=== PATIENT | male | born 1950 | race Caucasian/White ===

== ENCOUNTER → 2016-05-07 | Outpatient (CLI) | payer BC, MEDICARE ==
[2016-05-07 08:37] LABS: Basophils % (A) 0 %; CH 31.2; CHCM 32.3; Eosinophils # (A) 0.2 k/uL (0-0.7); Eosinophils % (A) 3 %; HCT 38.7 % (39.0-53.0); HDW 2.76; HGB 12.3 gm/dL (13.0-17.5); Luc # (Auto) 0.16; Luc % (Auto) 3; Lymphocytes # (A) 1.4 k/uL (1.0-4.8); Lymphocytes % (A) 28 %; MCH 30.9 pg (25.0-35.0); MCHC 31.8 g/dL (31.0-37.0); MCV 97.1 fL (80.0-100.0); Mean Platelet Volume 6.5; Monocytes # (A) 0.4 k/uL (0-1.0); Monocytes % (A) 7 %; Neutrophils # (A) 2.9 k/uL (1.3-7.7); Neutrophils % (A) 58 %; RBC 3.99 m/uL (4.30-5.90); WBC 5.1 k/uL (3.8-10.6); WBC (Perox) 5.67
[2016-05-07 08:56] LABS: ALT 59 U/L (21-72); AST 46 U/L (17-59); Alkaline Phosphatase 61 U/L (38-126); Anion Gap 10 mmol/L; Blood Urea Nitrogen 18 mg/dL (9-20); Calcium 8.8 mg/dL (8.4-10.2); Carbon Dioxide 21 mmol/L (22-30); Chloride 109 mmol/L (98-107); Glucose 145 mg/dL (74-99); Non-African American GFR(MDRD) 59 (>60 ml/min/1.73 sqM); Potassium 4.9 mmol/L (3.5-5.1); Sodium 140 mmol/L (137-145); Total Protein 7.5 g/dL (6.3-8.2)
== END | disposition home or self-care (01) ==
LOC: LABWHC1 08:02
PROVIDERS: ATTEND Internal Medicine Gastroenterology
DX: K58.9 Irritable bowel syndrome, unspecified (principal)
CPT/HCPCS: 36415; 80053; 85025

== ENCOUNTER 2016-05-12 18:01 | Emergency (ER) | payer BC, MEDICARE ==
[2016-05-12 18:20] VITALS: RESP 18
--- NOTE | 2016-05-12 18:26 | ED ---
Abdominal Pain HPI - General Chief Complaint: Abdominal Pain Stated Complaint: CROHNS FLAIR Time Seen by Provider: 05/12/16 18:19 Source: patient, RN notes reviewed Mode of arrival: ambulatory Limitations: no limitations - History of Present Illness Initial Comments: Patient is a 66-year-old male presenting to the with chief complaint of diarrhea and vomiting. Patient reports his history Crohn's and believes this is a flare. He states he has diffuse abdominal pain but is mainly located in the right quadrants. He states that he's had 2 bowel resections of cholecystectomy as well as he believes he has an appendectomy. Patient states his last Crohn's flareup such as this was in October of last year. Patient reports that he is currently taking Humira for his Crohn's. He denies any melena or hematochezia. He also denies any hematemesis. Denies any other symptoms including chest pain shortness of breath or cough or fevers. He states he has felt chilled. He reports his pain is currently 8 out of 10. Patient also has a past medical history of cardiac ablation, bilateral knee surgeries. - Related Data Home Medications Medication Instructions Recorded Confirmed Febuxostat [Uloric] 80 mg PO DAILY 08/27/13 05/12/16 amLODIPine BESYLATE [Amlodipine 5 mg PO DAILY 11/07/15 05/12/16 Besylate] Multivitamins, Thera [Multivitamin] 1 tab PO DAILY 11/10/15 05/12/16 Adalimumab [Humira Crohn's] 40 mg SQ Q14D 05/12/16 05/12/16 Buprenorphine HCl/Naloxone HCl 1 film SUBLINGUAL DAILY 05/12/16 05/12/16 [Suboxone 2 mg-0.5 mg Sl Film] Orphenadrine [Norflex] 100 mg PO Q12H 05/12/16 05/12/16 Tamsulosin HCl [Flomax] 0.4 mg PO DAILY 05/12/16 05/12/16 Zolpidem [Ambien] 5 mg PO HS PRN 05/12/16 05/12/16 Previous Rx's Medication Instructions Recorded HYDROcodone/APAP 10-325MG [[place] 1 tab PO Q6H PRN #20 tab 05/12/16 10-325] Ondansetron Odt [Zofran ODT] 4 mg PO Q8HR PRN #10 tab 05/12/16 predniSONE 50 mg PO DAILY #5 tab 05/12/16 Allergies Allergy/AdvReac Type Severity Reaction Status Date / Time Iodinated Contrast Media - Allergy Anaphylaxis Verified 05/12/16 19:00 Oral and [Iodinated Contrast Media - IV Dye] iodine Allergy Anaphylaxis Verified 05/12/16 19:00 Review of Systems ROS Statement: Those systems with pertinent positive or pertinent negative responses have been documented in the HPI. ROS Other: All systems not noted in ROS Statement are negative. Past Medical History Past Medical History: GERD/Reflux, Rheumatoid Arthritis (RA), Supraventricular Tachycardia (SVT) Additional Past Medical History / Comment(s): hx CROHN'S, migraines, hx SVT, hx ulcers, gout, History of Any Multi-Drug Resistant Organisms: C-DIFF Date of last positivie culture/infection: 11/29/2013 MDRO Source:: C-DIFF x 6 in 2013 Past Surgical History: Bowel Resection, Cardiac Ablation, Cholecystectomy, Hernia Repair, Orthopedic Surgery, Tonsillectomy Additional Past Surgical History / Comment(s): part of stomach removed (ulcers) , fecal transplant, bilateral knee surgery Past Anesthesia/Blood Transfusion Reactions: Blood Transfusion Reaction Additional Past Anesthesia/Blood Transfusion Reaction / Comment(s): BLOOD TRANSFUSION- BROKE OUT IN HIVES Past Psychological History: No Psychological Hx Reported Additional Psychological History / Comment(s): NO CURRENT TX. Retired due to his health. Smoking Status: Never smoker Past Alcohol Use History: None Reported Past Drug Use History: None Reported - Past Family History Father Family Medical History: CVA/TIA, Dementia, Hypertension Additional Family Medical History / Comment(s): AT AGE 86- UNSURE CAUSE OF Mother Family Medical History: Pulmonary Embolus Additional Family Medical History / Comment(s): AGE 73-[place], STROKE, UNSURE OF ANY OTHER HX General Exam - General Exam Comments Initial Comments: Patient is a pleasant 66-year-old male. He is on appear to be in any distress. Limitations: no limitations General appearance: alert, in no apparent distress Head exam: Present: atraumatic, normocephalic, normal inspection Eye exam: Present: normal appearance, PERRL, EOMI. Absent: scleral icterus, conjunctival injection, periorbital swelling ENT exam: Present: normal exam, mucous membranes moist Neck exam: Present: normal inspection. Absent: tenderness, meningismus, lymphadenopathy Respiratory exam: Present: normal lung sounds bilaterally. Absent: respiratory distress, wheezes, rales, rhonchi, stridor Cardiovascular Exam: Present: regular rate, normal rhythm, normal heart sounds. Absent: systolic murmur, diastolic murmur, rubs, gallop, clicks GI/Abdominal exam: Present: soft, tenderness (She reports significant right lower quadrant and right upper quadrant tenderness.), normal bowel sounds. Absent: distended, guarding, rebound, rigid Extremities exam: Present: normal inspection, full ROM, normal capillary refill. Absent: tenderness, pedal edema, joint swelling, calf tenderness Back exam: Present: normal inspection Neurological exam: Present: alert, oriented X3, CN II-XII intact Psychiatric exam: Present: normal affect, normal mood Skin exam: Present: warm, dry, intact, normal color. Absent: rash Course Vital Signs 05/12/16 05/12/16 05/12/16 18:19 21:28 22:12 Temperature 99.4 F 97.8 F 98.0 F Pulse Rate 89 64 68 Respiratory 18 18 18 Rate Blood Pressure 188/91 189/88 170/89 O2 Sat by Pulse 97 98 97 Oximetry Medical Decision Making - Medical Decision Making Patient is a 66 year old male with a history of chron's disease with 3 days of diarrhea, abdominal pain, and one episode of vomiting. Patient lab work shows mild anemia, fecal occult positive. CT abdomien and pelvis without constrast was completed and shows evidence of bowel wall thickening consistent with chron' s flare. Patient was offered admission, but states he would like to manage this at home with pain medication and steroids. PAtient given prescription for pain medication and prednisone 50 mg, #5. Patient instructed to follow up with PCP in the next day, and patient reports he has a follow up with Dr. 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 Patient understands treatment plan and possible admission offered if he returned. Patient also given dose of Solumedrol and pain medication before discharged home with . - Lab Data Result diagrams: 05/12/16 19:20 05/12/16 19:20 Lab Results 05/12/16 05/12/16 05/12/16 Range/Units 19:20 19:20 20:28 WBC 9.6 (3.8-10.6) k/uL RBC 4.09 L (4.30-5.90) m/uL Hgb 12.8 L (13.0-17.5) gm/dL Hct 38.3 L (39.0-53.0) % MCV 93.6 (80.0-100.0) fL MCH 31.2 (25.0-35.0) pg MCHC 33.3 (31.0-37.0) g/dL RDW 13.3 (11.5-15.5) % Plt Count 213 (150-450) k/uL Neutrophils % 69 % Lymphocytes % 22 % Monocytes % 5 % Eosinophils % 2 % Basophils % 0 % Neutrophils # 6.7 (1.3-7.7) k/uL Lymphocytes # 2.1 (1.0-4.8) k/uL Monocytes # 0.4 (0-1.0) k/uL Eosinophils # 0.2 (0-0.7) k/uL Basophils # 0.0 (0-0.2) k/uL Sodium 145 (137-145) mmol/L Potassium 4.5 (3.5-5.1) mmol/L Chloride 113 H (98-107) mmol/L Carbon Dioxide 18 L (22-30) mmol/L Anion Gap 14 mmol/L BUN 17 (9-20) mg/dL Creatinine 1.20 (0.66-1.25) mg/dL Est GFR (MDRD) Af Amer >60 (>60 ml/min/1.73 sqM) Est GFR (MDRD) Non-Af >60 (>60 ml/min/1.73 sqM) Glucose 107 H (74-99) mg/dL Calcium 9.4 (8.4-10.2) mg/dL Total Bilirubin 1.1 (0.2-1.3) mg/dL AST 45 (17-59) U/L ALT 56 (21-72) U/L Alkaline Phosphatase 59 (38-126) U/L Total Protein 7.8 (6.3-8.2) g/dL Albumin 4.1 (3.5-5.0) g/dL Amylase 78 (30-110) U/L Lipase 40 (23-300) U/L Urine Color Yellow Urine Appearance Clear (Clear) Urine pH 5.5 (5.0-8.0) Ur Specific [place] 1.015 (1.001-1.035) Urine Protein Negative (Negative) Urine Glucose (UA) Negative (Negative) Urine Ketones Negative (Negative) Urine Blood Negative (Negative) Urine Nitrate Negative (Negative) Urine Bilirubin Negative (Negative) Urine Urobilinogen <2.0 (<2.0) mg/dL Ur Leukocyte Esterase Negative (Negative) Stool Occult Blood (Negative) 05/12/16 Range/Units 20:28 WBC (3.8-10.6) k/uL RBC (4.30-5.90) m/uL Hgb (13.0-17.5) gm/dL Hct (39.0-53.0) % MCV (80.0-100.0) fL MCH (25.0-35.0) pg MCHC (31.0-37.0) g/dL RDW (11.5-15.5) % Plt Count (150-450) k/uL Neutrophils % % Lymphocytes % % Monocytes % % Eosinophils % % Basophils % % Neutrophils # (1.3-7.7) k/uL Lymphocytes # (1.0-4.8) k/uL Monocytes # (0-1.0) k/uL Eosinophils # (0-0.7) k/uL Basophils # (0-0.2) k/uL Sodium (137-145) mmol/L Potassium (3.5-5.1) mmol/L Chloride (98-107) mmol/L Carbon Dioxide (22-30) mmol/L Anion Gap mmol/L BUN (9-20) mg/dL Creatinine (0.66-1.25) mg/dL Est GFR (MDRD) Af Amer (>60 ml/min/1.73 sqM) Est GFR (MDRD) Non-Af (>60 ml/min/1.73 sqM) Glucose (74-99) mg/dL Calcium (8.4-10.2) mg/dL Total Bilirubin (0.2-1.3) mg/dL AST (17-59) U/L ALT (21-72) U/L Alkaline Phosphatase (38-126) U/L Total Protein (6.3-8.2) g/dL Albumin (3.5-5.0) g/dL Amylase (30-110) U/L Lipase (23-300) U/L Urine Color Urine Appearance (Clear) Urine pH (5.0-8.0) Ur Specific [place] (1.001-1.035) Urine Protein (Negative) Urine Glucose (UA) (Negative) Urine Ketones (Negative) Urine Blood (Negative) Urine Nitrate (Negative) Urine Bilirubin (Negative) Urine Urobilinogen (<2.0) mg/dL Ur Leukocyte Esterase (Negative) Stool Occult Blood Positive (Negative) - Radiology Data Radiology results: report reviewed CT abdomen and pelvis shows mucosal thickening involving the distal sigmoid colon and rect active sigmoid junction. There is evidence of hepatomegaly. 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 There is stable bilateral nonobstructing renal colliculi. Disposition Clinical Impression: Exacerbation of Crohn's disease Disposition: HOME SELF-CARE Condition: Good Instructions: Acute Diarrhea (ED) Additional Instructions: Patient started to follow-up with primary care provider in one to 2 days. Take pain medication and is very prescriptions as directed. Follow-up with GI specialist as well. Return to the [facility] if any alarming signs or symptoms occur. Prescriptions: HYDROcodone/APAP 10-325MG [[place] 10-325] 1 tab PO Q6H PRN #20 tab PRN Reason: Pain Ondansetron Odt [Zofran ODT] 4 mg PO Q8HR PRN #10 tab PRN Reason: Nausea predniSONE 50 mg PO DAILY #5 tab Referrals: Minh Saldaña MD [Primary Care Provider] - 1-2 days Time of Disposition: 22:02
[2016-05-12] MEDS ORDERED: diphenhydrAMINE 50 MG/ML 1 ML VIAL IVP STA (18:43)
[2016-05-12] MEDS ORDERED: SODIUM CHLORIDE 0.9% 1,000 ML IV STA (18:43)
[2016-05-12] MEDS ORDERED: HYDROmorphone 1 MG/ML 1 ML SYRINGE IVP STA ×3 (18:43→22:02)
[2016-05-12] MEDS ORDERED: METOCLOPRAMIDE 5 MG/ML 2 ML VIAL IVP STA (18:43)
--- NOTE | 2016-05-12 19:37 | XR ---
EXAMINATION TYPE: XR KUB DATE OF EXAM ORDERED: 05/12/2016 7:34 PM HISTORY: Abdominal pain. COMPARISON: Previous study dated 06/30/2014. FINDINGS: There has been previous right-sided surgery. The abdominal gas pattern is normal. There is no evidence of obstruction or free air. No unusual calc ifications are seen. There are scattered air-fluid levels. IMPRESSION: FINDINGS MOST CONSISTENT WITH EARLY ILEUS.
[2016-05-12 19:49] LABS: Basophils % (A) 0 %; CH 31.3; CHCM 33.6; Eosinophils # (A) 0.2 k/uL (0-0.7); Eosinophils % (A) 2 %; HCT 38.3 % (39.0-53.0); HDW 2.77; HGB 12.8 gm/dL (13.0-17.5); Luc # (Auto) 0.22; Luc % (Auto) 2; Lymphocytes # (A) 2.1 k/uL (1.0-4.8); Lymphocytes % (A) 22 %; MCH 31.2 pg (25.0-35.0); MCHC 33.3 g/dL (31.0-37.0); MCV 93.6 fL (80.0-100.0); Mean Platelet Volume 6.6; Monocytes # (A) 0.4 k/uL (0-1.0); Monocytes % (A) 5 %; Neutrophils # (A) 6.7 k/uL (1.3-7.7); Neutrophils % (A) 69 %; RBC 4.09 m/uL (4.30-5.90); RDW 13.3 % (11.5-15.5); WBC 9.6 k/uL (3.8-10.6); WBC (Perox) 9.72
[2016-05-12 19:57] LABS: ALT 56 U/L (21-72); AST 45 U/L (17-59); Alkaline Phosphatase 59 U/L (38-126); Amylase 78 U/L (30-110); Anion Gap 14 mmol/L; Blood Urea Nitrogen 17 mg/dL (9-20); Calcium 9.4 mg/dL (8.4-10.2); Carbon Dioxide 18 mmol/L (22-30); Chloride 113 mmol/L (98-107); Glucose 107 mg/dL (74-99); Non-African American GFR(MDRD) >60 (>60 ml/min/1.73 sqM); Potassium 4.5 mmol/L (3.5-5.1); Sodium 145 mmol/L (137-145); Total Bilirubin 1.1 mg/dL (0.2-1.3); Total Protein 7.8 g/dL (6.3-8.2)
[2016-05-12 20:36] LABS: Appearance,Urine Clear (Clear); Bilirubin,Urine Negative (Negative); Glucose,Urine (UA) Negative (Negative); Ketones,Urine Negative (Negative); Leukocyte Esterase,Urine Negative (Negative); Nitrite,Urine Negative (Negative); PH, Urine 5.5 (5.0-8.0); Protein,Urine Negative (Negative); Specific Gravity,Urine 1.015 (1.001-1.035); UA Billing (MACRO vs. MICRO) CHEM; Urobilinogen,Urine <2.0 mg/dL (<2.0)
--- NOTE | 2016-05-12 20:59 | CT ---
EXAMINATION TYPE: CT abdomen pelvis wo con DATE OF EXAM: 05/12/2016 8:41 PM COMPARISON: Previous study dated 11/08/2015. HISTORY: Right lower quadrant pain with a history of Crohn's CT DLP: 380.3 mGycm Automated exposure control for dose reduction was used. FINDINGS: There is dependent atelectasis in the dependent portion of the lungs. The heart is mildly e nlarged. There is no pleural or pericardial fluid. There has been previous epigastric surgery. Within the abdomen, the gallbladder has been removed. The liver is prominent measuring 19.3 cm. 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 Both adrenal glands are normal. There are multiple, bilateral nonobstructing renal calculi unchanged in size and appearance from the previous study. The pancreas is somewhat atrophic. There is extensive vascular calcification including the coronary arteries. There is no significant retroperitoneal, iliac or inguinal adenopathy. The bladder is unremarkable. The uterus and ovaries are not visualized. There is mucosal thickening involving the distal sigmoid colon and rectosigmoid junction. There is no free fluid and no free air identified. Small bowel loops are normal in caliber. There is mild hypertrophic spondylosis within the spine. IMPRESSION: 1. MUCOSAL THICKENING INVOLVING THE DISTAL SIGMOID COLON AND RECTOSIGMOID JUNCTION. 2. HEPATOMEGALY. 3. EVIDENCE OF OLD GRANULOMATOUS DISEASE OF THE SPLEEN. 4. STABLE, BILATERAL, NONOBSTRUCTING RENAL CALCULI.
[2016-05-12] MEDS ORDERED: methylPREDNISolone SOD SUCCI 125 MG/2 ML VIAL IV STA (22:01)
[2016-05-12 22:13] VITALS: BP 170/89; PULSE 68; TEMP 98
== END 2016-05-12 22:59 | disposition home or self-care (01) ==
LOC: EC 18:01
DX: K50.10 Crohn's disease of large intestine without complications (principal); R16.0 Hepatomegaly, not elsewhere classified; N20.0 Calculus of kidney; D64.9 Anemia, unspecified; K21.9 Gastro-esophageal reflux disease without esophagitis; M06.9 Rheumatoid arthritis, unspecified; I47.1 Supraventricular tachycardia; M10.9 Gout, unspecified; Z79.899 Other long term (current) drug therapy; Z91.041 Radiographic dye allergy status
CPT/HCPCS: 36415; 80053; 82150; 83690; 85025; 82272; 81003; 74000; 74176; 99284; 96374; 96375 ×3; 96376 ×2; 96361; J1200; J2765; J2930; J1170

== ENCOUNTER 2016-05-14 06:29 | Inpatient (IN) | payer BC, MEDICARE ==
[2016-05-14] MEDS ORDERED: DICYCLOMINE 10 MG/ML 2 ML AMP IM STA (07:19)
--- NOTE | 2016-05-14 07:26 | ED ---
Abdominal Pain HPI - General Chief Complaint: Abdominal Pain Stated Complaint: abd pain Time Seen by Provider: 05/14/16 07:09 Source: patient Mode of arrival: ambulatory Limitations: no limitations - History of Present Illness Initial Comments: is a 66-year-old man with history of Crohn's disease who presents with lower abdominal/right lower quadrant pains that have been going on for about 3- 4 days. The pain is sometimes sharp and crampy. Severity is moderate at times severe. The patient has not noted worsening or relieving factors. He is also complaining of a bloating sensation. The patient was seen here on Tuesday, treated and went home but states that he is not feeling any better. The patient has also been having a few episodes of vomiting in the past day without any blood or coffee-ground emesis. The patient has had a couple of bowel movements with past day and states that he did see some blood with one of these bowel movements. MD Complaint: abdominal pain Onset/Timin -: days(s) Location: RLQ, suprapubic Radiation: none Migration to: no migration Severity: moderate Quality: cramping, aching Consistency: constant Improves With: nothing Worsens With: nothing Associated Symptoms: nausea, vomiting, hematochezia - Related Data Home Medications Medication Instructions Recorded Confirmed Febuxostat [Uloric] 80 mg PO DAILY 08/27/13 05/14/16 amLODIPine BESYLATE [Amlodipine 5 mg PO DAILY 11/07/15 05/14/16 Besylate] Multivitamins, Thera [Multivitamin] 1 tab PO DAILY 11/10/15 05/14/16 Adalimumab [Humira Crohn's] 40 mg SQ Q14D 05/12/16 05/14/16 Buprenorphine HCl/Naloxone HCl 1 film SUBLINGUAL DAILY 05/12/16 05/14/16 [Suboxone 2 mg-0.5 mg Sl Film] Orphenadrine [Norflex] 100 mg PO Q12H 05/12/16 05/14/16 Tamsulosin HCl [Flomax] 0.4 mg PO DAILY 05/12/16 05/14/16 Zolpidem [Ambien] 5 mg PO HS PRN 05/12/16 05/14/16 Previous Rx's Medication Instructions Recorded HYDROcodone/APAP 10-325MG [[place] 1 tab PO Q6H PRN #20 tab 05/12/16 10-325] Ondansetron Odt [Zofran ODT] 4 mg PO Q8HR PRN #10 tab 05/12/16 predniSONE 50 mg PO DAILY #5 tab 05/12/16 Allergies Allergy/AdvReac Type Severity Reaction Status Date / Time Iodinated Contrast Media - Allergy Anaphylaxis Verified 05/14/16 06:39 Oral and [Iodinated Contrast Media - IV Dye] iodine Allergy Anaphylaxis Verified 05/14/16 06:39 Review of Systems ROS Statement: Those systems with pertinent positive or pertinent negative responses have been documented in the HPI. ROS Other: All systems not noted in ROS Statement are negative. Constitutional: Denies: fever, chills Respiratory: Denies: cough, dyspnea Cardiovascular: Denies: chest pain, palpitations, edema Gastrointestinal: Reports: abdominal pain, nausea, vomiting, diarrhea, hematochezia. Denies: hematemesis, melena Genitourinary: Denies: dysuria, hematuria Musculoskeletal: Denies: back pain Skin: Denies: rash Neurological: Denies: headache, weakness, numbness Past Medical History Past Medical History: GERD/Reflux, Rheumatoid Arthritis (RA), Supraventricular Tachycardia (SVT) Additional Past Medical History / Comment(s): hx CROHN'S, migraines, hx SVT, hx ulcers, gout, History of Any Multi-Drug Resistant Organisms: C-DIFF Date of last positivie culture/infection: 11/29/2013 MDRO Source:: C-DIFF x 6 in 2013 Past Surgical History: Bowel Resection, Cardiac Ablation, Cholecystectomy, Hernia Repair, Orthopedic Surgery, Tonsillectomy Additional Past Surgical History / Comment(s): part of stomach removed (ulcers) , fecal transplant, bilateral knee surgery Past Anesthesia/Blood Transfusion Reactions: Blood Transfusion Reaction Additional Past Anesthesia/Blood Transfusion Reaction / Comment(s): BLOOD TRANSFUSION- BROKE OUT IN HIVES Past Psychological History: No Psychological Hx Reported Additional Psychological History / Comment(s): NO CURRENT TX. Retired due to his health. Smoking Status: Never smoker Past Alcohol Use History: Occasional Past Drug Use History: None Reported - Past Family History Father Family Medical History: CVA/TIA, Dementia, Hypertension Additional Family Medical History / Comment(s): AT AGE 86- UNSURE CAUSE OF Mother Family Medical History: Pulmonary Embolus Additional Family Medical History / Comment(s): AGE 73-[place], STROKE, UNSURE OF ANY OTHER HX General Exam Limitations: no limitations General appearance: alert, in no apparent distress Head exam: Present: atraumatic, normocephalic Eye exam: Present: normal appearance. Absent: scleral icterus, conjunctival injection ENT exam: Present: normal oropharynx Respiratory exam: Present: normal lung sounds bilaterally. Absent: respiratory distress, wheezes, rales, rhonchi, stridor Cardiovascular Exam: Present: regular rate, normal rhythm, normal heart sounds. Absent: systolic murmur, diastolic murmur, rubs, gallop GI/Abdominal exam: Present: soft. Absent: distended, tenderness, guarding, rebound, mass Extremities exam: Present: normal inspection, normal capillary refill. Absent: pedal edema, calf tenderness Back exam: Absent: CVA tenderness (R), CVA tenderness (L) Neurological exam: Present: alert Skin exam: Present: warm, dry, intact, normal color. Absent: rash Course Vital Signs 05/14/16 05/14/16 05/14/16 06:36 07:19 08:29 Temperature 98.6 F 97.4 F L 98.6 F Pulse Rate 90 79 64 Respiratory 16 16 18 Rate Blood Pressure 186/90 197/91 183/85 O2 Sat by Pulse 98 98 99 Oximetry 05/14/16 05/14/16 09:31 10:29 Temperature 98.6 F 97.9 F Pulse Rate 66 63 Respiratory 18 16 Rate Blood Pressure 190/86 195/93 O2 Sat by Pulse 96 97 Oximetry Medical Decision Making - Lab Data Result diagrams: 05/14/16 07:50 05/14/16 07:50 Lab Results 05/14/16 05/14/16 05/14/16 Range/Units 07:00 07:50 07:50 WBC 13.0 H (3.8-10.6) k/uL RBC 3.84 L (4.30-5.90) m/uL Hgb 12.0 L (13.0-17.5) gm/dL Hct 36.0 L (39.0-53.0) % MCV 93.8 (80.0-100.0) fL MCH 31.4 (25.0-35.0) pg MCHC 33.4 (31.0-37.0) g/dL RDW 13.1 (11.5-15.5) % Plt Count 210 (150-450) k/uL Neutrophils % 81 % Lymphocytes % 13 % Monocytes % 4 % Eosinophils % 0 % Basophils % 0 % Neutrophils # 10.6 H (1.3-7.7) k/uL Lymphocytes # 1.7 (1.0-4.8) k/uL Monocytes # 0.6 (0-1.0) k/uL Eosinophils # 0.0 (0-0.7) k/uL Basophils # 0.0 (0-0.2) k/uL Sodium 144 (137-145) mmol/L Potassium 4.0 (3.5-5.1) mmol/L Chloride 113 H (98-107) mmol/L Carbon Dioxide 18 L (22-30) mmol/L Anion Gap 13 mmol/L BUN 19 (9-20) mg/dL Creatinine 1.22 (0.66-1.25) mg/dL Est GFR (MDRD) Af Amer >60 (>60 ml/min/1.73 sqM) Est GFR (MDRD) Non-Af 59 (>60 ml/min/1.73 sqM) Glucose 131 H (74-99) mg/dL Calcium 9.4 (8.4-10.2) mg/dL Total Bilirubin 0.7 (0.2-1.3) mg/dL AST 36 (17-59) U/L ALT 57 (21-72) U/L Alkaline Phosphatase 60 (38-126) U/L C-Reactive Protein (<10.0) mg/L Total Protein 7.7 (6.3-8.2) g/dL Albumin 4.1 (3.5-5.0) g/dL Amylase 77 (30-110) U/L Lipase 46 (23-300) U/L Urine Color Light Yellow Urine Appearance Clear (Clear) Urine pH 5.5 (5.0-8.0) Ur Specific [place] 1.011 (1.001-1.035) Urine Protein Negative (Negative) Urine Glucose (UA) Negative (Negative) Urine Ketones Negative (Negative) Urine Blood Negative (Negative) Urine Nitrate Negative (Negative) Urine Bilirubin Negative (Negative) Urine Urobilinogen <2.0 (<2.0) mg/dL Ur Leukocyte Esterase Negative (Negative) 05/14/16 Range/Units 07:50 WBC (3.8-10.6) k/uL RBC (4.30-5.90) m/uL Hgb (13.0-17.5) gm/dL Hct (39.0-53.0) % MCV (80.0-100.0) fL MCH (25.0-35.0) pg MCHC (31.0-37.0) g/dL RDW (11.5-15.5) % Plt Count (150-450) k/uL Neutrophils % % Lymphocytes % % Monocytes % % Eosinophils % % Basophils % % Neutrophils # (1.3-7.7) k/uL Lymphocytes # (1.0-4.8) k/uL Monocytes # (0-1.0) k/uL Eosinophils # (0-0.7) k/uL Basophils # (0-0.2) k/uL Sodium (137-145) mmol/L Potassium (3.5-5.1) mmol/L Chloride (98-107) mmol/L Carbon Dioxide (22-30) mmol/L Anion Gap mmol/L BUN (9-20) mg/dL Creatinine (0.66-1.25) mg/dL Est GFR (MDRD) Af Amer (>60 ml/min/1.73 sqM) Est GFR (MDRD) Non-Af (>60 ml/min/1.73 sqM) Glucose (74-99) mg/dL Calcium (8.4-10.2) mg/dL Total Bilirubin (0.2-1.3) mg/dL AST (17-59) U/L ALT (21-72) U/L Alkaline Phosphatase (38-126) U/L C-Reactive Protein <5.0 (<10.0) mg/L Total Protein (6.3-8.2) g/dL Albumin (3.5-5.0) g/dL Amylase (30-110) U/L Lipase (23-300) U/L Urine Color Urine Appearance (Clear) Urine pH (5.0-8.0) Ur Specific Loop (1.001-1.035) Urine Protein (Negative) Urine Glucose (UA) (Negative) Urine Ketones (Negative) Urine Blood (Negative) Urine Nitrate (Negative) Urine Bilirubin (Negative) Urine Urobilinogen (<2.0) mg/dL Ur Leukocyte Esterase (Negative) Disposition Clinical Impression: Abdominal pain, Exacerbation of Crohn's disease Disposition: ADMITTED IP TO THIS HOSP Condition: Fair
[2016-05-14 08:00] LABS: Basophils % (A) 0 %; CH 31.4; CHCM 33.6; Eosinophils % (A) 0 %; HDW 2.76; Luc # (Auto) 0.12; Luc % (Auto) 1; Lymphocytes # (A) 1.7 k/uL (1.0-4.8); Lymphocytes % (A) 13 %; MCH 31.4 pg (25.0-35.0); MCHC 33.4 g/dL (31.0-37.0); MCV 93.8 fL (80.0-100.0); Mean Platelet Volume 7.3; Monocytes # (A) 0.6 k/uL (0-1.0); Monocytes % (A) 4 %; Neutrophils # (A) 10.6 k/uL (1.3-7.7); Neutrophils % (A) 81 %; RBC 3.84 m/uL (4.30-5.90); RDW 13.1 % (11.5-15.5); WBC (Perox) 13.48
--- NOTE | 2016-05-14 08:03 | XR ---
EXAMINATION TYPE: XR KUB DATE OF EXAM: 05/14/2016 7:56 AM COMPARISON: 05/12/2016 HISTORY: 66-year-old male with lower abdominal pain pain. History of Crohn's disease per patient. FINDINGS: Some surgical clips at the GE junction. No evidence for free intraperitoneal air. Additional surgical clips in the right paramedian midabdomen. There may be underlying nephrolithiasis measuring up to 5 mm on the left and 8 mm on the right. No dilated small bowel. Small air-fluid levels are present in t he ascending colon. Mild overall stool burden. IMPRESSION: 1. Small air-fluid levels in the right hemicolon are nonspecific and could represent a mild enteritis or regional mild ileus. 2. No evidence for free air or bowel obstruction. 3. Bilateral nephrolithiasis.
[2016-05-14 08:08] LABS: Appearance,Urine Clear (Clear); Bilirubin,Urine Negative (Negative); Glucose,Urine (UA) Negative (Negative); Ketones,Urine Negative (Negative); Leukocyte Esterase,Urine Negative (Negative); Nitrite,Urine Negative (Negative); PH, Urine 5.5 (5.0-8.0); Protein,Urine Negative (Negative); Specific Gravity,Urine 1.011 (1.001-1.035); UA Billing (MACRO vs. MICRO) CHEM; Urobilinogen,Urine <2.0 mg/dL (<2.0)
[2016-05-14 08:14] LABS: ALT 57 U/L (21-72); AST 36 U/L (17-59); Alkaline Phosphatase 60 U/L (38-126); Amylase 77 U/L (30-110); Anion Gap 13 mmol/L; Blood Urea Nitrogen 19 mg/dL (9-20); Calcium 9.4 mg/dL (8.4-10.2); Carbon Dioxide 18 mmol/L (22-30); Chloride 113 mmol/L (98-107); Glucose 131 mg/dL (74-99); Non-African American GFR(MDRD) 59 (>60 ml/min/1.73 sqM); Sodium 144 mmol/L (137-145); Total Bilirubin 0.7 mg/dL (0.2-1.3); Total Protein 7.7 g/dL (6.3-8.2)
[2016-05-14] MEDS ORDERED: MORPHINE SULFATE 4 MG/ML SYRINGE IV STA (08:29)
[2016-05-14] MEDS ORDERED: amLODIPine 5 MG TAB PO STA (09:38)
[2016-05-14] MEDS ORDERED: HYDROmorphone 1 MG/ML 1 ML SYRINGE IVP STA ×2 (10:12→13:03)
[2016-05-14] MEDS ORDERED: SODIUM CHLORIDE 0.9% 1,000 ML IV ONE (10:31)
[2016-05-14] MEDS ORDERED: ONDANSETRON ODT 4 MG TAB PO PRN (10:34)
[2016-05-14] MEDS ORDERED: LABETALOL SYRINGE 5 MG/ML IVP STA (11:00)
[2016-05-14] MEDS: CYCLOBENZAPRINE 10 MG TAB PO SCH ×2 (11:44→22:03)
[2016-05-14 17:06] LABS: Glucose,Whole Blood 81 mg/dL (75-99)
[2016-05-14] MEDS: METHADONE 5 MG TAB PO PRN (21:31)
[2016-05-14] MEDS: ZOLPIDEM 5 MG TAB PO PRN (22:04)
[2016-05-15] MEDS: METHADONE 5 MG TAB PO PRN ×6 (01:19→22:24)
[2016-05-15] MEDS ORDERED: NON-FORMULARY DRUG (Buprenorphine Hcl/Naloxone Hcl [Suboxone 2 Mg-0.5 Mg Sl Film] 1 FILM) SUBLINGUAL SCH (09:00)
[2016-05-15] MEDS ORDERED: ADALIMUMAB 80 MG/1.6 ML KIT SQ SCH (09:00)
[2016-05-15] MEDS: TAMSULOSIN 0.4 MG CAP.ER.24H PO SCH (09:24)
[2016-05-15] MEDS: ALLOPURINOL 100 MG TAB PO SCH ×2 (09:24→21:11)
[2016-05-15] MEDS: CYCLOBENZAPRINE 10 MG TAB PO SCH ×2 (09:24→21:11)
[2016-05-15] MEDS: MULTIVITAMINS, THERA 1 EACH TAB PO SCH (09:24)
[2016-05-15] MEDS: amLODIPine 5 MG TAB PO SCH (09:25)
--- NOTE | 2016-05-15 11:20 | CONS ---
DATE OF CONSULTATION: 05/15/2016 REASON FOR CONSULTATION: Abdominal pain and diarrhea. HISTORY OF PRESENT ILLNESS: The patient is a 66-year-old pleasant, white male who came into the emergency room yesterday presented with abdominal pain, diarrhea for the last 3 days' duration. He has been having abdominal bloating, abdominal distention and right lower quadrant abdominal pain for 3 days and bowel movements anywhere from 10 to 12 a day which are loose to watery in consistency and on a couple of occasions he did notice some blood in the stool. He became concerned. He came to the ER 3 days ago and was sent home on prednisone 40 mg daily; however, he continued to have persistent symptoms and hence he came right back to the hospital and now admitted to the hospital for further evaluation. This morning he did not have any bowel movements, but he still complains of severe right lower quadrant abdominal pain. He had a couple of episodes of emesis. He denies any nausea, vomiting. The patient has long-standing history of Crohn disease and he has been maintained on Humira 40 mg every other week for the last 2 years. His last surgery for stricture of the anastomosis was about 3 years ago at [facility]. He had an recurrent C. difficile colitis in 2014 and he underwent fecal transplantation at [facility] and since then he had done extremely well. He denies any recent antibiotic use. PAST MEDICAL HISTORY: Significant for Crohn disease, rheumatoid arthritis, hypertension, gastroesophageal reflux disease, chronic migraines, recurrent C. difficile infection, gout, arthritis. PAST SURGICAL HISTORY: ( ) resection and small bowel resections, cardiac ablation, cholecystectomy, hernia repair, tonsillectomy, multiple colonoscopies in the past. Medications at home include Uloric, amlodipine, multivitamin, Humira, Suboxone, Norflex, Flomax and Ambien. Allergies to IV DYE. SOCIAL HISTORY: No smoking. No alcohol use. FAMILY HISTORY: Father had hypertension, dementia, and CVA. Mother has pulmonary embolism. REVIEW OF SYSTEMS: CARDIOPULMONARY: No chest pain or shortness of breath. GENITOURINARY: No dysuria or hematuria. MUSCULOSKELETAL: Unremarkable. SKIN: Unremarkable. ENDOCRINE: Unremarkable. PSYCHIATRIC: Unremarkable. NEUROLOGY: Unremarkable. ENT/VISION: Unremarkable. CONSTITUTIONAL: No recent weight loss. No fevers, chills or night sweats. On physical examination, blood pressure is 137/89, pulse 61, temperature 97. HEENT: Unremarkable. Conjunctivae pink. Sclerae anicteric. Oral cavity, no lesions. NECK: No JVD or lymph node enlargement. Chest was clear to auscultation. HEART: Regular rate and rhythm. Abdomen is soft. It was slightly distended. It was tender in the right lower quadrant area. Bowel sounds are positive. No organomegaly. EXTREMITIES: No pedal edema. SKIN: No rashes. NEURO: Alert and oriented x3. No focal deficits. WBC 13, hemoglobin 12, platelets are 210. ALT, AST, T-bili, alkaline phosphatase are normal. Basic metabolic panel is within normal limits. The patient had a CT of the abdomen and pelvis done in April 2 days ago when he came into the emergency room and was noted to have mucosal thickening involving the distal sigmoid colon and ( ) colon; hepatomegaly. IMPRESSION: This is a patient who presents with abdominal pain, abdominal distention, and severe diarrhea for the last 3 days' duration. He does have long-standing history of Crohn disease for which he is maintained on Humira 40 mg every other week for the last 2 to 3 years. He was in clinical remission and now presents with these symptoms possibility of exacerbation of Crohn disease versus Clostridium difficile colitis needs to be considered. RECOMMENDATIONS: 1. Will start him on a clear liquid diet. 2. Will start him on IV Solu-Medrol 60 mg q.8 hours. 3. Obtain stool studies for C. difficile toxin. 4. Labs for inflammatory markers including Sed rate and C-reactive protein. Will follow the patient closely during his hospital stay. Thank you for this consultation.
[2016-05-15] MEDS: methylPREDNISolone SOD SUCCI 125 MG/2 ML VIAL IV SCH ×2 (11:29→16:48)
[2016-05-15 17:18] LABS: Glucose,Whole Blood 191 mg/dL (75-99)
[2016-05-15] MEDS: INSULIN LISPRO (humaLOG) 300 UNIT/3 ML VIAL SQ SCH ×2 (18:04→21:11)
--- NOTE | 2016-05-15 18:22 | PN ---
DATE OF SERVICE: 05/15/2016 I am covering for Dr. Saldaña. This 66-year-old gentleman was admitted with abdominal pain, possibly Crohn disease, acute exacerbation, also complained of right lower quadrant abdominal pain. The patient is being closely monitored at this time. CRP level less than 0.5. Dr. Yancey has initiated IV steroids for possible Crohn disease, acute exacerbation. The patient being closely monitored. Patient is on methadone. PAST MEDICAL HISTORY: Reviewed. REVIEW OF SYSTEMS: CARDIOVASCULAR: No angina or palpitations. RESPIRATORY: No cough. GASTROINTESTINAL: As mentioned earlier. : No dysuria. CENTRAL NERVOUS SYSTEM: No numbness or weakness. Current medications are reviewed, include: 1. Zyloprim 200 mg daily. 2. Norvasc 5 mg daily. 3. Flexeril 10 mg b.i.d. 4. Methadone 2.5 q.4 p.r.n. 5. Solu-Medrol 60 IV q.8. 6. Multivitamins one p.o. daily. 7. Flomax. 8. Ambien. PHYSICAL EXAM: Patient is alert and oriented times three. Pulse rate 62, blood pressure 130/64, respirations 20, temperature 98.4, pulse ox 98% on room air. HEENT: Conjunctivae normal. NECK: No jugular venous distention. CARDIOVASCULAR: S1, S2 muffled. No S3, no S4. RESPIRATORY: Breath sounds diminished at the bases. A few rhonchi, no crackles. ABDOMEN: Soft, mild diffuse discomfort upon palpation. Mostly tenderness in the right lower quadrant. No guarding. No rigidity. No mass palpable. Legs: No edema. No swelling. Nervous system: No focal deficits. LABS: WBC 13, hemoglobin is 12. Sodium 140, potassium 4.3. UA noted. ASSESSMENT: 1. Abdominal pain, possibly Crohn disease, acute exacerbation. 2. Increased WBC. 3. Anemia, normocytic, anemia of chronic. 4. Decreased CO2. 5. Increased random blood sugar. 6. History of gastroesophageal reflux disease. 7. History of hypertension. 8. History of rheumatoid arthritis. 9. History of supraventricular tachycardia. 10. History of irritable bowel syndrome. 11. History of partial small bowel obstruction. 12. History of supraventricular tachycardia with ablation. 13. History of nephrolithiasis. 14. History of gout. 15. History of clostridium dificile colitis. 16. History of cardiac ablation. 17. Anxiety, depression, not otherwise specified. 18. FULL CODE. RECOMMENDATIONS AND DISCUSSION: In this 66-year-old gentleman who presented with multiple complex medical issues, we will monitor the patient closely. Continue with current medications, continue symptomatic treatment. Otherwise, I would recommend to monitor the blood sugar as well. Symptomatic treatment for pain. DVT prophylaxis. Guarded prognosis because of multiple complex medical issues. Further recommendations to follow. Medications reconciliation will also be done. Further recommendations to follow.
[2016-05-15] MEDS ORDERED: ONDANSETRON 4 MG/2 ML VIAL IVP PRN (19:46)
[2016-05-15 20:58] LABS: Glucose,Whole Blood 176 mg/dL (75-99)
[2016-05-15] MEDS: HEPARIN SODIUM,PORCINE 5,000 UNIT/ML 1 ML VIAL SQ SCH (21:11)
[2016-05-15] MEDS: ZOLPIDEM 5 MG TAB PO PRN (22:24)
[2016-05-16] MEDS: methylPREDNISolone SOD SUCCI 125 MG/2 ML VIAL IV SCH ×3 (00:04→17:33)
[2016-05-16 01:39] LABS: Hemoglobin A1C 4.9 % (4.2-6.1)
[2016-05-16] MEDS: METHADONE 5 MG TAB PO PRN ×5 (03:10→20:02)
[2016-05-16 06:57] LABS: Glucose,Whole Blood 155 mg/dL (75-99)
[2016-05-16 09:12] LABS: Basophils % (A) 0 %; CH 31.3; CHCM 32.7; Eosinophils % (A) 0 %; HCT 36.6 % (39.0-53.0); HDW 2.66; HGB 11.4 gm/dL (13.0-17.5); Luc # (Auto) 0.03; Luc % (Auto) 0; Lymphocytes # (A) 0.8 k/uL (1.0-4.8); Lymphocytes % (A) 9 %; MCHC 31.2 g/dL (31.0-37.0); MCV 96.1 fL (80.0-100.0); Mean Platelet Volume 7.7; Monocytes # (A) 0.2 k/uL (0-1.0); Monocytes % (A) 2 %; Neutrophils # (A) 7.1 k/uL (1.3-7.7); Neutrophils % (A) 88 %; RBC 3.81 m/uL (4.30-5.90); WBC 8.1 k/uL (3.8-10.6); WBC (Perox) 8.51
[2016-05-16] MEDS: ALLOPURINOL 100 MG TAB PO SCH ×2 (09:48→20:02)
[2016-05-16] MEDS: HEPARIN SODIUM,PORCINE 5,000 UNIT/ML 1 ML VIAL SQ SCH ×2 (09:49→20:02)
[2016-05-16] MEDS: amLODIPine 5 MG TAB PO SCH (09:49)
[2016-05-16] MEDS: MULTIVITAMINS, THERA 1 EACH TAB PO SCH (09:49)
[2016-05-16] MEDS: TAMSULOSIN 0.4 MG CAP.ER.24H PO SCH (09:49)
[2016-05-16] MEDS: CYCLOBENZAPRINE 10 MG TAB PO SCH (09:49)
[2016-05-16] MEDS: INSULIN LISPRO (humaLOG) 300 UNIT/3 ML VIAL SQ SCH ×4 (09:50→21:33)
--- NOTE | 2016-05-16 10:49 | PN ---
DATE OF SERVICE: 05/16/2016 Requesting physician: Dr. Saldaña. Patient is a 66 -year-old pleasant white male admitted to the hospital with exacerbation of Crohn's. He did ( ) in the past and C. difficile toxin done yesterday was negative. He still complains of right lower quadrant abdominal pain, and diarrhea all night and had about 6 to 8 loose bowel movements in the last 24 hours. He denies any rectal bleeding. He still has abdominal bloating, but no nausea or vomiting. On physical examination, he appears comfortable in no apparent distress. Vitals as are stable. Blood pressure is 145/73, pulse 78, temperature 99. HEENT EXAMINATION: Unremarkable. ( ) no lesions. NECK: No jugular venous distention or lymph node enlargement. CHEST: Clear to auscultation. HEART: Regular rate and rhythm. ABDOMEN: Soft. There was mild tenderness in the right lower quadrant area, slightly distended. EXTREMITIES: No pedal edema. SKIN: No rashes. NEUROLOGIC: Alert and oriented x3. No focal deficits. Labs from today are still not available. IMPRESSION: Exacerbation of Crohn's disease with abdominal pain, diarrhea, recent C. difficile toxin done yesterday was negative. The patient presented with IV Solu-Medrol 60 mg q.8h. and he feels a little bit better. RECOMMENDATIONS: 1. Continue with IV Solu-Medrol today. 2. If he is bit better, we will change the steroids to oral prednisone 40 mg daily tomorrow. 3. Advanced to a full liquid diet. 4. Await sedimentation rate and C-reactive protein that will be ordered for today. 5. We will follow the patient closely during his hospital stay.
[2016-05-16 11:27] LABS: Erythrocyte Sedimentation Rate 15 mm/hr (0-15)
[2016-05-16 12:08] LABS: Glucose,Whole Blood 110 mg/dL (75-99)
[2016-05-16 17:52] LABS: Glucose,Whole Blood 170 mg/dL (75-99)
[2016-05-16 21:00] LABS: Glucose,Whole Blood 124 mg/dL (75-99)
--- NOTE | 2016-05-16 21:48 | PN ---
DATE OF SERVICE: 05/16/2016 I am covering for Dr. Saldaña. This 66-year-old gentleman admitted with abdominal pain, also suspected of Crohn's disease, acute exacerbation. The patient is on steroids. No chest pain. No palpitations. No fever. The patient is on clear liquids. On exam, alert and oriented x3. Pulse is 72, blood pressure 161/67, respiration 16, temperature 97.9. Pulse ox 94% on room air. HEENT: Conjunctivae normal. NECK: No jugular venous distention. CARDIOVASCULAR: S1, S2 muffled. RESPIRATORY: Breath sounds diminished at the bases. A few scattered rhonchi. No crackles. ABDOMEN: Soft, mild diffuse discomfort on palpations. No guarding. No rigidity. No mass palpable. LEGS: No edema. No swelling. CENTRAL NERVOUS SYSTEM: No focal deficits. LABS: Hemoglobin 11.4. ASSESSMENT: 1. Abdominal pain, possibly Crohn's disease acute exacerbation. 2. Increased WBC. 3. Anemia, normocytic, anemia of chronic disease. 4. Decreased CO2. 5. Increased random blood sugar. 6. Gastroesophageal reflux disease. 7. Hypertension. 8. History of rheumatoid arthritis. 9. History of tachycardia. 10. History of irritable bowel syndrome. 11. History of partial small bowel obstruction. 12. History of supraventricular tachycardia with ablation. 13. History of nephrolithiasis. 14. History of gout. 15. History of Clostridium difficile colitis. 16. History of cardiac ablation. 17. History of anxiety, depression, not otherwise specified. 18. FULL CODE. RECOMMENDATIONS AND DISCUSSION: In this 66-year-old gentleman who presented with multiple complex medical issues, we will monitor the patient closely, continue the current medications, continue with symptomatic treatment for the pain, continue steroids. Monitor blood sugar closely. DVT prophylaxis. Dr. Saldaña will follow. Prognosis guarded. Advance diet per cardiology. MTDD
[2016-05-17] MEDS: CYCLOBENZAPRINE 10 MG TAB PO SCH ×3 (00:08→22:26)
[2016-05-17] MEDS: ZOLPIDEM 5 MG TAB PO PRN ×2 (00:09→22:26)
[2016-05-17] MEDS: METHADONE 5 MG TAB PO PRN ×6 (00:09→22:26)
[2016-05-17] MEDS: methylPREDNISolone SOD SUCCI 125 MG/2 ML VIAL IV SCH ×2 (00:09→08:15)
[2016-05-17 07:50] LABS: Glucose,Whole Blood 142 mg/dL (75-99)
[2016-05-17] MEDS: TAMSULOSIN 0.4 MG CAP.ER.24H PO SCH (08:15)
[2016-05-17] MEDS: MULTIVITAMINS, THERA 1 EACH TAB PO SCH (08:15)
[2016-05-17] MEDS: amLODIPine 5 MG TAB PO SCH (08:15)
[2016-05-17] MEDS: ALLOPURINOL 100 MG TAB PO SCH ×2 (08:15→21:00)
[2016-05-17] MEDS: INSULIN LISPRO (humaLOG) 300 UNIT/3 ML VIAL SQ SCH ×4 (08:16→20:59)
[2016-05-17] MEDS: HEPARIN SODIUM,PORCINE 5,000 UNIT/ML 1 ML VIAL SQ SCH ×2 (08:16→21:00)
--- NOTE | 2016-05-17 08:39 | P.PN ---
Subjective Principal diagnosis: The patient is here essentially for Crohn's colitis flareup. He is on full liquid diet but still with some pain. Methadone has been tolerated secondary to history of Suboxone usage. Objective - Vital Signs Vital signs: Vital Signs Temp 97.4 F L 05/17/16 07:00 Pulse 58 L 05/17/16 07:00 Resp 20 05/17/16 07:00 BP 158/76 05/17/16 07:00 Pulse Ox 95 05/17/16 07:00 Intake & Output 05/16/16 05/17/16 05/17/16 18:59 06:59 18:59 Intake Total 4085 Balance 4085 Intake: Oral 4085 Other: Voiding Method Toilet Toilet # Voids 2 2 # Bowel Movements 3 0 - Constitutional General appearance: Present: average body habitus - EENT Eyes: Absent: abnormal pupil - Cardiovascular Rhythm: regular Heart sounds: normal: S1, S2 - Gastrointestinal General gastrointestinal: Present: soft. Absent: tenderness - Musculoskeletal Musculoskeletal: Present: gait normal - Labs CBC & Chem 7: 05/16/16 08:42 05/14/16 07:50 Labs: Abnormal Lab Results - Last 24 Hours (Table) 05/16/16 05/16/16 05/16/16 Range/Units 08:42 11:45 17:21 RBC 3.81 L (4.30-5.90) m/uL Hgb 11.4 L (13.0-17.5) gm/dL Hct 36.6 L (39.0-53.0) % Lymphocytes # 0.8 L (1.0-4.8) k/uL POC Glucose (mg/dL) 110 H 170 H (75-99) mg/dL 05/16/16 05/17/16 Range/Units 20:50 07:00 RBC (4.30-5.90) m/uL Hgb (13.0-17.5) gm/dL Hct (39.0-53.0) % Lymphocytes # (1.0-4.8) k/uL POC Glucose (mg/dL) 124 H 142 H (75-99) mg/dL Microbiology - Last 24 Hours (Table) 05/15/16 19:20 Stool for WBCs - Final Stool 05/15/16 19:20 Stool Culture - Preliminary Stool Assessment and Plan (1) Abdominal pain Status: Acute (2) Crohns disease Status: Acute Plan: Continue current regimen medication. Anticipate transition to prednisone today. Otherwise, anticipate discharge in a.m. if tolerating diet and blood counts are stable.
[2016-05-17] MEDS ORDERED: DICYCLOMINE 10 MG CAP PO PRN (11:20)
[2016-05-17] MEDS: predniSONE 20 MG TAB PO SCH (12:01)
[2016-05-17 12:14] LABS: Glucose,Whole Blood 124 mg/dL (75-99)
--- NOTE | 2016-05-17 14:17 | PN ---
DATE OF SERVICE: 05/17/2016 Requesting physician: Dr. Saldaña Patient is a 66-year-old pleasant, white male admitted to the hospital with abdominal pain, severe diarrhea for the last 4 or 5 days duration. He was started on empiric IV steroids for possible exacerbation of Crohn's disease. He is feeling much better, but he continues to have persistent diarrhea and had approximately 12 loose watery bowel movements all day yesterday. Abdominal pain is gradually improving. He denies any rectal bleeding or melena. He reports no nausea vomiting. Presently on full liquid diet, tolerating well. On physical examination, he appears comfortable in no apparent distress. Vitals as are stable. Blood pressure 156/91, pulse rate 93, temperature 96. HEENT EXAMINATION: Unremarkable. Conjunctivae pink. Sclerae anicteric. Oral cavity, no lesions. NECK: No jugular venous distention or lymph node enlargement. CHEST: Clear to auscultation. HEART: Regular rate and rhythm. ABDOMEN: Soft. Bowel sounds are positive. No organomegaly. Mild tenderness in the right lower quadrant area. EXTREMITIES: No pedal edema. SKIN: No rashes. NEURO: Alert and oriented x3. No focal deficits. Labs from yesterday hemoglobin 8.1. WBC 11.4. Platelets normal. Sedimentation rate is 15, CRP less than 5. Clostridium difficile toxin is negative. IMPRESSION: 1. Exacerbation of Crohn disease. The patient is presently on Humira 40 mg every other week on IV Solu-Medrol 60 mg q.6 hours still has persistent diarrhea. 2. Irritable bowel syndrome could be also contributing to the ongoing diarrhea. RECOMMENDATIONS: 1. We will stop the IV Solu-Medrol and start him on oral prednisone 40 mg daily. 2. Start him on Bentyl 10 mg 4 times daily to help with the diarrhea and the pain for possible irritable bowel syndrome. 3. We will advance to a regular diet. 4. Possible discharge him tomorrow morning with outpatient follow up in a week. Thank you for this consultation.
[2016-05-17 17:30] LABS: Glucose,Whole Blood 232 mg/dL (75-99)
[2016-05-17 20:28] LABS: Glucose,Whole Blood 153 mg/dL (75-99)
[2016-05-18] MEDS ORDERED: amLODIPine 5 MG TAB PO STA (00:32)
[2016-05-18] MEDS: METHADONE 5 MG TAB PO PRN ×2 (02:45→08:14)
[2016-05-18 07:15] LABS: Glucose,Whole Blood 88 mg/dL (75-99)
[2016-05-18 07:51] VITALS: BP 184/85; PULSE 60; RESP 17; TEMP 96.6
[2016-05-18] MEDS: INSULIN LISPRO (humaLOG) 300 UNIT/3 ML VIAL SQ SCH (08:11)
[2016-05-18] MEDS: HEPARIN SODIUM,PORCINE 5,000 UNIT/ML 1 ML VIAL SQ SCH (08:12)
[2016-05-18] MEDS: predniSONE 20 MG TAB PO SCH (08:15)
[2016-05-18] MEDS: MULTIVITAMINS, THERA 1 EACH TAB PO SCH (08:15)
[2016-05-18] MEDS: ALLOPURINOL 100 MG TAB PO SCH (08:15)
[2016-05-18] MEDS: TAMSULOSIN 0.4 MG CAP.ER.24H PO SCH (08:16)
--- NOTE | 2016-05-18 08:28 | P.DS ---
Providers Date of admission: 05/14/16 10:34 Attending physician: Minh Saldaña Primary care physician: Minh Saldaña - Discharge Diagnosis(es) (1) Abdominal pain Current Visit: Yes Status: Acute (2) Crohns disease Current Visit: No Status: Acute Hospital Course: The patient is a 66-year-old white male essentially admitted for Crohn's colitis with history of opiate addiction. He was placed on methadone because Suboxone was not available. The patient did quite well after being on IV steroids. He is not tolerating diet and having good bowel movement he is placed on full liquid diet with prednisone and to follow-up with me in approximately one week. He is discharged in stable condition Patient Condition at Discharge: Fair Plan - Discharge Summary New Discharge Prescriptions: Buprenorphine HCl/Naloxone HCl [Suboxone 4 mg-1 mg Sl Film] 1 each SL DAILY #30 film Dicyclomine [Bentyl] 10 mg PO QID PRN #120 cap PRN Reason: Dyspepsia amLODIPine [Norvasc] 10 mg PO DAILY #30 tab predniSONE 40 mg PO DAILY #14 tab Discharge Medication List Febuxostat [Uloric] 80 mg PO DAILY 08/27/13 [History] amLODIPine BESYLATE [Amlodipine Besylate] 5 mg PO DAILY 11/07/15 [History] Multivitamins, Thera [Multivitamin] 1 tab PO DAILY 11/10/15 [History] Adalimumab [Humira Pen Crohn-Uc-Hs Starter] 40 mg SQ Q14D 05/12/16 [History] Ondansetron Odt [Zofran ODT] 4 mg PO Q8HR PRN #10 tab 05/12/16 [Rx] Orphenadrine [Norflex] 100 mg PO Q12H 05/12/16 [History] Tamsulosin HCl [Flomax] 0.4 mg PO DAILY 05/12/16 [History] Zolpidem [Ambien] 5 mg PO HS PRN 05/12/16 [History] Buprenorphine HCl/Naloxone HCl [Suboxone 4 mg-1 mg Sl Film] 1 each SL DAILY #30 film 05/18/16 [Rx] Dicyclomine [Bentyl] 10 mg PO QID PRN #120 cap 05/18/16 [Rx] amLODIPine [Norvasc] 10 mg PO DAILY #30 tab 05/18/16 [Rx] predniSONE 40 mg PO DAILY #14 tab 05/18/16 [Rx] Follow up Appointment(s)/Referral(s): Minh Saldaña MD [Primary Care Provider] - 1 Week Discharge Disposition: HOME SELF-CARE
[2016-05-18] MEDS ORDERED: amLODIPine 10 MG TAB PO SCH (09:00)
--- NOTE | 2016-07-11 21:45 | P.HPIM ---
History of Present Illness H&P Date: 05/14/16 Chief Complaint: Severe abdominal pain. This is a history of physical, 66-year-old white male with known history of gout , rheumatoid arthritis and Crohn's disease. The patient is admitted secondary to three-day to four-day worsening history of diarrhea. And it the patient had significant abdominal pain. Dietary modifications were ineffective. No significant nausea or vomiting stated. He states this is deepthi to previous hospitalizations. He has struggled with history of opiate dependence in the past. Otherwise, he is appropriately admitted. Review of Systems Constitutional: Denies chills, Denies fever Eyes: denies blurred vision, denies pain Ears, nose, mouth and throat: Denies headache, Denies sore throat Cardiovascular: Denies chest pain, Denies shortness of breath Gastrointestinal: Reports abdominal pain Musculoskeletal: Denies myalgias Neurological: Denies numbness, Denies weakness Past Medical History Past Medical History: GERD/Reflux, Hypertension, Renal Disease, Rheumatoid Arthritis (RA), Skin Disorder, Supraventricular Tachycardia (SVT) Additional Past Medical History / Comment(s): hx CROHN'S, IBS, partial small bowel obstruction, migraines-just a couple, hx SVT with ablation, hx ulcers, anemia, generalized gout, kidney stones, psoriasis. History of Any Multi-Drug Resistant Organisms: C-DIFF Date of last positivie culture/infection: 11/29/2013 MDRO Source:: C-DIFF x 6 in 2013 Past Surgical History: Bowel Resection, Cardiac Ablation, Cholecystectomy, Heart Catheterization, Hernia Repair, Orthopedic Surgery, Tonsillectomy Additional Past Surgical History / Comment(s): partial gastrectomy (ulcers), fecal transplant, bilateral knee arthroscopic surgery, EGD/colonoscopies, R inguinal hernia, Past Anesthesia/Blood Transfusion Reactions: Blood Transfusion Reaction Additional Past Anesthesia/Blood Transfusion Reaction / Comment(s): BLOOD TRANSFUSION- BROKE OUT IN HIVES Past Psychological History: Anxiety, Depression Additional Psychological History / Comment(s): Retired due to his health. Pt resides with his spouse. He has hx of opiate dependency. He is independent. Smoking Status: Never smoker Past Alcohol Use History: Occasional Past Drug Use History: Prescription Drug Abuse Additional Drug Use History / Comment(s): Hx of opiate dependency. - Past Family History Father Family Medical History: CVA/TIA, Dementia, Hypertension Additional Family Medical History / Comment(s): Father at the age of 86yrs Mother Family Medical History: Myocardial Infarction ([place]), Pulmonary Embolus Additional Family Medical History / Comment(s): AGE 73-[place], STROKE, UNSURE OF ANY OTHER HX Medications and Allergies Home Medications Medication Instructions Recorded Confirmed Type Febuxostat [Uloric] 80 mg PO DAILY 08/27/13 05/14/16 History amLODIPine BESYLATE [Amlodipine 5 mg PO DAILY 11/07/15 05/14/16 History Besylate] Multivitamins, Thera [Multivitamin 1 tab PO DAILY 11/10/15 05/14/16 History (formulary)] Adalimumab [Humira Pen Crohn-Uc-Hs 40 mg SQ Q14D 05/12/16 05/14/16 History Starter] Orphenadrine [Norflex] 100 mg PO Q12H 05/12/16 05/14/16 History Tamsulosin HCl [Flomax] 0.4 mg PO DAILY 05/12/16 05/14/16 History Zolpidem [Ambien] 5 mg PO HS PRN 05/12/16 05/14/16 History Allergies Allergy/AdvReac Type Severity Reaction Status Date / Time Iodinated Contrast Media - Allergy Anaphylaxis Verified 05/14/16 06:39 Oral and [Iodinated Contrast Media - IV Dye] iodine Allergy Anaphylaxis Verified 05/14/16 06:39 Physical Exam - Constitutional General appearance: no acute distress - EENT Eyes: EOMI - Neck Neck: no lymphadenopathy - Respiratory Respiratory: bilateral: CTA - Cardiovascular Rhythm: regular Heart sounds: normal: S1, S2 - Gastrointestinal General gastrointestinal: no organomegaly, soft, no tenderness - Neurologic Neurologic: CNII-XII intact - Musculoskeletal Musculoskeletal: gait normal Results CBC & Chem 7: 05/16/16 08:42 05/14/16 07:50 Thrombosis Risk Factor Assmnt - Choose All That Apply Any of the Below Risk Factors Present?: Yes Other Risk Factors: Yes Each Risk Factor Represents 2 Points: Age 61-74 years Other congenital or acquired thrombophilia - If yes, enter type in comment: No Thrombosis Risk Factor Assessment Total Risk Factor Score: 2 Thrombosis Risk Factor Assessment Level: Low Risk Assessment and Plan (1) Abdominal pain Status: Acute (2) Crohns disease Status: Acute Plan: Continue current regimen medication. Anticipate transition to prednisone In the next 48 hours. Otherwise, anticipate discharge In the next 3-4 days. if tolerating diet and blood counts are stable.Consider GI referral as necessary. Check CBC and CMP in a.m.The patient is a full code at this time. Otherwise, reconcile medications and watch blood pressure closely.
== END 2016-05-18 10:20 | disposition home or self-care (01) | DRG 387 ==
LOC: EC 06:29 → 4MS4W 10:34
PROVIDERS: ADMIT Family Medicine; ATTEND Family Medicine
DX: K50.10 Crohn's disease of large intestine without complications (principal); D63.8 Anemia in other chronic diseases classified elsewhere; I10 Essential (primary) hypertension; F32.9 Major depressive disorder, single episode, unspecified; F41.9 Anxiety disorder, unspecified; K21.9 Gastro-esophageal reflux disease without esophagitis; L40.9 Psoriasis, unspecified; K58.9 Irritable bowel syndrome, unspecified; M06.9 Rheumatoid arthritis, unspecified; G43.909 Migraine, unspecified, not intractable, without status migrainosus; M10.9 Gout, unspecified; M19.90 Unspecified osteoarthritis, unspecified site; R73.9 Hyperglycemia, unspecified; Z91.041 Radiographic dye allergy status; Z79.899 Other long term (current) drug therapy; Z82.49 Family history of ischemic heart disease and other diseases of the circulatory system
CPT/HCPCS: 36415; 74000; 80053; 80299; 81003; 82150; 83036; 83690; 85025; 85652; 86140; 87045; 87046; 89055; 96372; 96374; 96375; 99285

== ENCOUNTER → 2016-06-30 | Outpatient (CLI) | payer BC, MEDICARE ==
--- NOTE | 2016-06-30 10:08 | XR ---
EXAM TYPE: LUMBAR SPINE X RAY SERIES COMPARISON: NONE HISTORY: Left-sided sciatic pain and left leg numbness TECHNIQUE: 3 views are submitted. FINDINGS: Alignment is anatomic. The pedicles are intact. The transverse processes are intact. There is no s pondylolysis or spondylolisthesis. Surgical clips in the right upper quadrant are noted. Degenerativ e disc disease L5-S1 and T12-L2. Slight curvature of the spine may be positional IMPRESSION: 1. Multilevel mild degenerative disc disease. Consider MRI follow-up.
== END | disposition home or self-care (01) ==
LOC: RADXRMAIN 09:24
PROVIDERS: ATTEND Family Medicine
DX: M51.37 Other intervertebral disc degeneration, lumbosacral region (principal); M51.35 Other intervertebral disc degeneration, thoracolumbar region
CPT/HCPCS: 72100

== ENCOUNTER → 2016-11-25 | Outpatient (CLI) | payer BC, MEDICARE ==
--- NOTE | 2016-11-25 09:40 | CT ---
EXAMINATION TYPE: CT brain wo con DATE OF EXAM: 11/25/2016 HISTORY: Dizziness CT DLP: 1075.3 mGycm. Automated Exposure Control for Dose Reduction was Utilized. TECHNIQUE: CT scan of the head is performed without contrast. COMPARISON: None. FINDINGS: There is no acute intracranial hemorrhage or midline shift identified. Ventricles and sul ci are felt within normal limits in size for patient's age. No suspicious opacification of mastoid ai r cells is present bilaterally. The globes are intact and the visualized sinuses are clear. IMPRESSION: No acute intracranial hemorrhage or midline shift. No significant finding is seen to acc ount for patient's symptoms..
--- NOTE | 2016-11-25 10:26 | US ---
EXAMINATION TYPE: US carotid duplex BILAT DATE OF EXAM: 11/25/2016 COMPARISON: US 2014 CLINICAL HISTORY: G45.9 TIA, R42 Dizziness. EXAM MEASUREMENTS: RIGHT: Peak Systolic Velocity (PSV) cm/sec ----- Right CCA: 46.1 ----- Right ICA: 119.0 ----- Right ECA: 88.9 ICA/CCA ratio: 2.6 RIGHT: End Diastole cm/sec ----- Right CCA: 14.7 ----- Right ICA: 43.0 ----- Right ECA: 13.7 LEFT: Peak Systolic Velocity (PSV) cm/sec ----- Left CCA: 77.8 ----- Left ICA: 125.4 ----- Left ECA: 51.2 ICA/CCA ratio: 1.6 LEFT: End Diastole cm/sec ----- Left CCA: 16.1 ----- Left ICA: 28.8 ----- Left ECA: 14.5 VERTEBRALS (direction of flow): Right Vertebral: Antegrade Left Vertebral: Antegrade irregular heart rhythm. Small amount of plaque bilaterally. Very tortuous Left ICA IMPRESSION: No hemodynamic significant stenosis of the proximal internal carotid arteries bilaterall y by Doppler criteria, an indirect measurement of carotid stenosis. Although there is elevated ratio within the distribution of the internal carotid artery to common carotid artery, velocities are simil ar to previous exam and not elevated. Carotid CTA or MRA with contrast could be performed and may be of benefit. Additional findings above.
--- NOTE | 2016-11-25 10:41 | ECHOF ---
Referral Reason:G45.9 TIA, R42 dizziness MEASUREMENTS -------- HEIGHT: 182.9 cm WEIGHT: 86.2 kg BP: IVSd: 1.3 cm (0.6 - 1.1) LVIDd: 4.8 cm (3.9 - 5.3) LVPWd: 1.3 cm (0.6 - 1.1) IVSs: 1.5 cm LVIDs: 4.5 cm LVPWs: 1.0 cm LAESV Index (A-L): 32.95 ml/m Ao Diam: 3.7 cm (2.0 - 3.7) AV Cusp: 2.5 cm (1.5 - 2.6) LA Diam: 4.5 cm (2.7 - 3.8) MV EXCURSION: 14.837 mm (> 18.000) MV EF SLOPE: 78 mm/s (70 - 150) EPSS: 1.4 cm MV E Roger: 0.48 m/s MV DecT: 327 ms MV A Roger: 0.63 m/s MV E/A Ratio: 0.75 AR PHT: 846 ms RAP: 5.00 mmHg RVSP: 27.81 mmHg FINDINGS -------- BBB This was a technically good study. There is mild concentric left ventricular hypertrophy. Overall left ventricular systolic function is low-normal with, an EF between 50 - 55 %. The right ventricle is normal in size. LA is midly dilated 29-33ml/m2. The right atrial size is normal. There is mild aortic valve sclerosis. There is mild aortic regurgitation. Mild mitral annular calcification present. Mild mitral regurgitation is present. Mild tricuspid regurgitation present. There is no evidence of pulmonary hypertension. The right ventricular systolic pressure, as measured by Doppler, is 27.81mmHg. There is no pulmonic regurgitation present. The aortic root size is normal. There is no pericardial effusion. CONCLUSIONS -------- 1. There is mild concentric left ventricular hypertrophy. 2. The right ventricular systolic pressure, as measured by Doppler, is 27.81mmHg. 3. There is no pulmonic regurgitation present. 4. Overall left ventricular systolic function is low-normal with, an EF between 50 - 55 %. 5. LA is midly dilated 29-33ml/m2. 6. There is mild aortic valve sclerosis. 7. There is mild aortic regurgitation. 8. Mild mitral annular calcification present. 9. Mild mitral regurgitation is present. 10. Mild tricuspid regurgitation present. 11. There is no evidence of pulmonary hypertension. GERIATRICIAN: Gela Segundo RDCS
== END | disposition home or self-care (01) ==
LOC: RADUSMAIN 08:58
PROVIDERS: ATTEND Family Medicine
DX: G45.9 Transient cerebral ischemic attack, unspecified (principal); R42 Dizziness and giddiness
CPT/HCPCS: 70450; 93306; 93880

== ENCOUNTER → 2017-11-09 | Day surgery (SDC) | payer BC, MEDICARE ==
[2017-11-03 13:18] VITALS: BMI 23.7
[~2017-11-09] MED LIST: LACTATED RINGERS 1,000 ML IV SCH; LIDOCAINE 1% INJ 10MG/ML (20 ML MDV) ONE; PROPOFOL 10 MG/ML 20 ML VIAL IV ONE
[2017-11-09 07:46] VITALS: TEMP 97.3
--- NOTE | 2017-11-09 08:46 | P.PCN ---
Date of Procedure: 11/09/17 Procedure(s) Performed: Brief history: Patient is a pleasant 67-year-old white male, scheduled for an elective upper endoscopy as well as colonoscopy as a part of evaluation of iron deficiency anemia. He is been having intermittent episodes of abdominal pain, abdominal bloating. His long-standing history of Crohn's and is status post small bowel resection/terminal ileal resection 2, the last one 4 years ago. He is maintained on Humira every 2 weeks. He also has history of peptic ulcer disease for which she underwent Billroth II gastrectomy many years ago. Procedure performed: Esophagogastroduodenoscopy with biopsy Colonoscopy with biopsy Preoperative diagnosis: Abdominal pain/abdominal bloating Long-standing history of Crohn's disease Anesthesia: MAC Procedure: After informed consent was obtained from the patient was brought into the endoscopy unit and IV sedation was administered by anesthesia under continuous monitoring. Initially upper endoscopy was done. The Olympus GF 160 video endoscope was inserted inserted into the mouth and esophagus intubated without any difficulty and was gradually advanced into the stomach there was evidence of previous gastric surgery with Billroth II anastomosis. At the anastomosis there was a superficial ulceration identified measuring 1 cm in size and biopsies were done from this area. The afferent and efferent loops appeared normal. The scope was then withdrawn into the stomach adequately insufflated with air and upon careful examination the body of the stomach had mild gastritis but, cardia and fundus appeared normal. The scope was then withdrawn into the esophagus. The GE junction was located at 40 cm to the incisors. It appeared regular with no erythema erosions or ulcerations. Rest of the esophagus appeared normal. Patient tolerated the procedure well. At this time the patient continued to remain sedation. Initial digital rectal examination was normal. Olympus CF 160 video colonoscope was then inserted into the rectum and gradually advanced to the right colon with a liquid anastomosis was visualized and appeared patent. The distal ileum appeared normal. There was mild erythema of the anastomosis which was biopsied. The ascending, transverse colon, descending colon, sigmoid colon and rectum appeared normal. Retroflexion was performed in the rectum and no lesions were noted. Patient tolerated the procedure well. Impression: 1. Upper endoscopy revealed a superficial anastomotic ulcer at the Billroth II anastomosis and mild gastritis 2. Colonoscopy revealed mild erythema at the according the anastomosis in the right colon. Rest of the colon appeared normal Recommendations: Findings of this examination were discussed with the patient as well as his family. He was advised to follow with the biopsy results. He will continue with Prilosec 20 mg daily and follow antireflux measures. He will continue Humira once every 2 weeks. He will be seen in office in 3 months
[2017-11-09 09:07] VITALS: BP 166/83; PULSE 61; RESP 18
== END ==
LOC: ORWHC2ENDO 07:23
PROVIDERS: ATTEND Internal Medicine Gastroenterology
DX: K28.9 Gastrojejunal ulcer, unspecified as acute or chronic, without hemorrhage or perforation (principal); K52.9 Noninfective gastroenteritis and colitis, unspecified; K29.70 Gastritis, unspecified, without bleeding; K50.90 Crohn's disease, unspecified, without complications; Z98.0 Intestinal bypass and anastomosis status; Z90.49 Acquired absence of other specified parts of digestive tract; Z90.3 Acquired absence of stomach [part of]; Z87.11 Personal history of peptic ulcer disease; K21.9 Gastro-esophageal reflux disease without esophagitis; I10 Essential (primary) hypertension; I47.1 Supraventricular tachycardia; M06.9 Rheumatoid arthritis, unspecified; G43.909 Migraine, unspecified, not intractable, without status migrainosus; M10.9 Gout, unspecified; Z79.899 Other long term (current) drug therapy; Z91.041 Radiographic dye allergy status
CPT/HCPCS: 88305; 45380; 43239; J2001; J2704

== ENCOUNTER 2017-12-08 01:39 | Inpatient (IN) | payer BC, MEDICARE ==
[2017-12-08] MEDS ORDERED: ONDANSETRON 4 MG/2 ML VIAL IVP STA (02:07)
[2017-12-08] MEDS ORDERED: SODIUM CHLORIDE 0.9% 1,000 ML IV STA (02:07)
--- NOTE | 2017-12-08 02:07 | ED ---
General Adult HPI - General Chief complaint: Abdominal Pain Stated complaint: abd/chest pain Time Seen by Provider: 12/08/17 01:52 Source: patient Mode of arrival: wheelchair Limitations: no limitations - History of Present Illness Initial comments: Silvano is a 67-year-old male with a past medical history of Crohn's disease who presents to the emergency department today for evaluation of abdominal pain. Patient reports that the pain began early Tuesday morning when he was visiting his sister in [place], patient states that he drove from [place] to his home here in [place]. He states that throughout the day he was able to eat his usual diet and drink plenty of water. However he had persistent abdominal pain, after returning home and resting for a few hours the pain continued to bother him which prompted him to come to the ER for reevaluation. Patient reports that in the past T's office had low abdominal pain with Crohn's flares, this pain is located in the epigastrium with some radiation into his chest. Patient reports that the pain causes him to feel like his heart is racing and pounding. He states that he knows heart he denies any exertional chest pain and reports that getting up and walking around and actually makes the pain subsided. He describes the pain as feeling as though gas is building up and pressure in his stomach within radiates outward. Pain is improved when he gets up and walks around. Pain is not altered by eating or drinking. It is not associated with any diaphoresis or lightheadedness though he is experiencing palpitations. Patient states that he is on Humira for his Crohn's disease, his last dose was tuesday (yesterday) and has been doing quite well. He reports he had a colonoscopy by Dr Yancey last month and was advised that all was well at that time. - Related Data Home Medications Medication Instructions Recorded Confirmed Multivitamins, Thera [Multivitamin 1 tab PO DAILY 11/10/15 11/03/17 (formulary)] Adalimumab [Humira Pen Crohn-Uc-Hs 40 mg SQ Q14D 05/12/16 11/09/17 Starter] Allopurinol [Zyloprim] 300 mg PO HS 11/03/17 11/03/17 Buprenorphine HCl/Naloxone HCl 1 each SL HS 11/03/17 11/03/17 [Suboxone 4 mg-1 mg Sl Film] Omeprazole Magnesium [PriLOSEC OTC] 20 mg PO DAILY 11/03/17 11/03/17 amLODIPine [Norvasc] 5 mg PO DAILY 11/03/17 11/09/17 Allergies Allergy/AdvReac Type Severity Reaction Status Date / Time Iodinated Contrast- Oral and Allergy Anaphylaxis Verified 11/09/17 07:45 IV Dye [Iodinated Contrast Media - IV Dye] iodine Allergy Anaphylaxis Verified 11/09/17 07:45 Review of Systems ROS Statement: Those systems with pertinent positive or pertinent negative responses have been documented in the HPI. ROS Other: All systems not noted in ROS Statement are negative. Past Medical History Past Medical History: GERD/Reflux, Hypertension, Renal Disease, Rheumatoid Arthritis (RA), Skin Disorder, Supraventricular Tachycardia (SVT) Additional Past Medical History / Comment(s): hx CROHN'S, IBS, migraines-just a couple, hx SVT with ablation, hx ulcers, anemia, generalized gout, kidney stones, psoriasis.RINGING IN EARS History of Any Multi-Drug Resistant Organisms: None Reported Date of last positivie culture/infection: 11/29/2013 MDRO Source:: C-DIFF x 6 in 2013 Past Surgical History: Bowel Resection, Cardiac Ablation, Cholecystectomy, Heart Catheterization, Hernia Repair, Orthopedic Surgery, Tonsillectomy Additional Past Surgical History / Comment(s): partial gastrectomy (ulcers), fecal transplant, bilateral knee arthroscopic surgery, EGD/colonoscopies, R inguinal hernia repair Past Anesthesia/Blood Transfusion Reactions: Blood Transfusion Reaction, Motion Sickness Additional Past Anesthesia/Blood Transfusion Reaction / Comment(s): BLOOD TRANSFUSION- BROKE OUT IN HIVES age 21 Past Psychological History: Anxiety, Depression Smoking Status: Never smoker - Past Family History Father Family Medical History: CVA/TIA, Dementia, Hypertension Additional Family Medical History / Comment(s): Father at the age of 86yrs Mother Family Medical History: Myocardial Infarction ([place]), Pulmonary Embolus Additional Family Medical History / Comment(s): AGE 73-[place], STROKE, UNSURE OF ANY OTHER HX General Exam Limitations: no limitations General appearance: alert, other (appears uncomfortable) Head exam: Present: atraumatic, normocephalic Eye exam: Present: normal appearance, PERRL ENT exam: Present: normal exam, normal oropharynx Neck exam: Present: normal inspection Respiratory exam: Present: normal lung sounds bilaterally. Absent: respiratory distress Cardiovascular Exam: Present: normal rhythm, tachycardia GI/Abdominal exam: Present: soft, tenderness, normal bowel sounds, other ( Bedside US with no evidence of aortic aneurysm or dissection ). Absent: distended, guarding, rebound, rigid Rectal exam: Present: deferred Extremities exam: Present: normal inspection Back exam: Present: normal inspection Neurological exam: Present: alert, oriented X3 Psychiatric exam: Present: normal affect, normal mood Skin exam: Present: warm, dry Course Vital Signs 12/08/17 12/08/17 01:40 04:42 Temperature 97.6 F Pulse Rate 110 H 70 Respiratory 18 18 Rate Blood Pressure 146/94 188/86 O2 Sat by Pulse 98 100 Oximetry Medical Decision Making - Medical Decision Making The patient was seen and evaluated, history was obtained from the patient With a history of Crohn's presenting with abdominal pain which she reports radiates into his chest and is associated with palpitations Bedside ultrasound reveals a normal aorta no evidence of aneurysm or dissection on bedside ultrasound Labs and imaging were ordered Labs were unremarkable Patient with persistent pain after Pepcid and fluids IV morphine was ordered Computed tomography scan of the abdomen was ordered Computed tomography scan of the abdomen reveals inflammatory changes consistent with a Crohn's flare This time I do feel the patient requires admission for [id number] steroids , pain management Patient care was discussed with patient's primary care physician Dr. Saldaña who agrees with plan for admission, IV steroids, IV pain medications, consult to gastroenterology Orders placed After IV fluids and morphine the patient's tachycardia resolved, patient remains hemodynamically stable and afebrile. - Lab Data Result diagrams: 12/08/17 01:57 12/08/17 01:57 Lab Results 12/08/17 12/08/17 12/08/17 Range/Units 01:57 01:57 01:57 WBC 8.1 (3.8-10.6) k/uL RBC 4.43 (4.30-5.90) m/uL Hgb 12.5 L (13.0-17.5) gm/dL Hct 41.6 (39.0-53.0) % MCV 93.9 (80.0-100.0) fL MCH 28.1 (25.0-35.0) pg MCHC 30.0 L (31.0-37.0) g/dL RDW 18.0 H (11.5-15.5) % Plt Count 215 (150-450) k/uL Neutrophils % 61 % Lymphocytes % 29 % Monocytes % 5 % Eosinophils % 2 % Basophils % 0 % Neutrophils # 5.0 (1.3-7.7) k/uL Lymphocytes # 2.3 (1.0-4.8) k/uL Monocytes # 0.4 (0-1.0) k/uL Eosinophils # 0.2 (0-0.7) k/uL Basophils # 0.0 (0-0.2) k/uL Anisocytosis Slight PT 9.6 (9.0-12.0) sec INR 1.0 (<1.2) APTT 22.6 (22.0-30.0) sec Sodium 143 (137-145) mmol/L Potassium 3.6 (3.5-5.1) mmol/L Chloride 117 H (98-107) mmol/L Carbon Dioxide 17 L (22-30) mmol/L Anion Gap 9 mmol/L BUN 20 (9-20) mg/dL Creatinine 1.20 (0.66-1.25) mg/dL Est GFR (CKD-EPI)AfAm 72 (>60 ml/min/1.73 sqM) Est GFR (CKD-EPI)NonAf 62 (>60 ml/min/1.73 sqM) Glucose 90 (74-99) mg/dL Calcium 9.6 (8.4-10.2) mg/dL Total Bilirubin 0.6 (0.2-1.3) mg/dL AST 25 (17-59) U/L ALT 26 (21-72) U/L Alkaline Phosphatase 48 (38-126) U/L Troponin I (0.000-0.034) ng/mL Total Protein 7.1 (6.3-8.2) g/dL Albumin 4.0 (3.5-5.0) g/dL Lipase 73 (23-300) U/L Urine Color Urine Appearance (Clear) Urine pH (5.0-8.0) Ur Specific [place] (1.001-1.035) Urine Protein (Negative) Urine Glucose (UA) (Negative) Urine Ketones (Negative) Urine Blood (Negative) Urine Nitrite (Negative) Urine Bilirubin (Negative) Urine Urobilinogen (<2.0) mg/dL Ur Leukocyte Esterase (Negative) 12/08/17 12/08/17 Range/Units 01:57 02:26 WBC (3.8-10.6) k/uL RBC (4.30-5.90) m/uL Hgb (13.0-17.5) gm/dL Hct (39.0-53.0) % MCV (80.0-100.0) fL MCH (25.0-35.0) pg MCHC (31.0-37.0) g/dL RDW (11.5-15.5) % Plt Count (150-450) k/uL Neutrophils % % Lymphocytes % % Monocytes % % Eosinophils % % Basophils % % Neutrophils # (1.3-7.7) k/uL Lymphocytes # (1.0-4.8) k/uL Monocytes # (0-1.0) k/uL Eosinophils # (0-0.7) k/uL Basophils # (0-0.2) k/uL Anisocytosis PT (9.0-12.0) sec INR (<1.2) APTT (22.0-30.0) sec Sodium (137-145) mmol/L Potassium (3.5-5.1) mmol/L Chloride (98-107) mmol/L Carbon Dioxide (22-30) mmol/L Anion Gap mmol/L BUN (9-20) mg/dL Creatinine (0.66-1.25) mg/dL Est GFR (CKD-EPI)AfAm (>60 ml/min/1.73 sqM) Est GFR (CKD-EPI)NonAf (>60 ml/min/1.73 sqM) Glucose (74-99) mg/dL Calcium (8.4-10.2) mg/dL Total Bilirubin (0.2-1.3) mg/dL AST (17-59) U/L ALT (21-72) U/L Alkaline Phosphatase (38-126) U/L Troponin I 0.015 (0.000-0.034) ng/mL Total Protein (6.3-8.2) g/dL Albumin (3.5-5.0) g/dL Lipase (23-300) U/L Urine Color Light Yellow Urine Appearance Clear (Clear) Urine pH 6.0 (5.0-8.0) Ur Specific [place] 1.006 (1.001-1.035) Urine Protein Negative (Negative) Urine Glucose (UA) Negative (Negative) Urine Ketones Negative (Negative) Urine Blood Negative (Negative) Urine Nitrite Negative (Negative) Urine Bilirubin Negative (Negative) Urine Urobilinogen <2.0 (<2.0) mg/dL Ur Leukocyte Esterase Negative (Negative) Disposition Clinical Impression: Crohns disease, Exacerbation of Crohn's disease Disposition: ADMITTED IP TO THIS HOSP Condition: Good Referrals: Minh Saldaña MD [Primary Care Provider] - 1-2 days Decision Time: 05:17
[2017-12-08] MEDS ORDERED: FAMOTIDINE 20 MG/2 ML VIAL IV STA (02:08)
[2017-12-08 02:18] LABS: Anisocytosis Slight; Basophils % (A) 0 %; Eosinophils # (A) 0.2 k/uL (0-0.7); Eosinophils % (A) 2 %; HCT 41.6 % (39.0-53.0); HGB 12.5 gm/dL (13.0-17.5); Lymphocytes # (A) 2.3 k/uL (1.0-4.8); Lymphocytes % (A) 29 %; MCH 28.1 pg (25.0-35.0); MCV 93.9 fL (80.0-100.0); Mean Platelet Volume 6.6; Monocytes # (A) 0.4 k/uL (0-1.0); Monocytes % (A) 5 %; Neutrophils % (A) 61 %; Platelet Count 215 k/uL (150-450); RBC 4.43 m/uL (4.30-5.90); WBC 8.1 k/uL (3.8-10.6)
[2017-12-08 02:30] LABS: Calcium 9.6 mg/dL (8.4-10.2); Potassium 3.6 mmol/L (3.5-5.1); Total Bilirubin 0.6 mg/dL (0.2-1.3); Total Protein 7.1 g/dL (6.3-8.2)
--- NOTE | 2017-12-08 02:39 | XR ---
EXAMINATION TYPE: XR abdomen acute w cxr DATE OF EXAM: 12/08/2017 COMPARISON: 05/14/2016 HISTORY: Abdominal pain TECHNIQUE: Chest x-ray with supine and upright abdomen. FINDINGS: There is no heart failure nor confluent pneumonic infiltrate. There are old left-sided healed rib fra ctures. There is a 5 mm calcified granuloma in the right midlung. Heart is normal. There is no pleura l effusion. There are surgical clips at the gastroesophageal junction. There are clips from cholecyst ectomy. There are faint calcifications over the kidneys. Fecal pattern is normal. There is no sign of intestinal obstruction or pneumoperitoneum. IMPRESSION: No active cardiopulmonary disease. Nonacute abdomen. Abdomen unchanged.
[2017-12-08 02:47] LABS: Appearance,Urine Clear (Clear); Bilirubin,Urine Negative (Negative); Blood,Urine Negative (Negative); Color,Urine Light Yellow; Glucose,Urine (UA) Negative (Negative); Ketones,Urine Negative (Negative); Leukocyte Esterase,Urine Negative (Negative); Nitrite,Urine Negative (Negative); Protein,Urine Negative (Negative); Specific Gravity,Urine 1.006 (1.001-1.035); Urobilinogen,Urine <2.0 mg/dL (<2.0)
[2017-12-08 02:51] LABS: Partial Thromboplastin Time 22.6 sec (22.0-30.0); Prothrombin Time 9.6 sec (9.0-12.0)
[2017-12-08] MEDS ORDERED: MORPHINE SULFATE 4 MG/ML SYRINGE IVP STA (02:51)
--- NOTE | 2017-12-08 04:28 | CT ---
EXAMINATION TYPE: CT abdomen pelvis wo con DATE OF EXAM: 12/08/2017 COMPARISON: 05/12/2016 HISTORY: Abd pain CT DLP: 383.80 mGycm Automated exposure control for dose reduction was used. TECHNIQUE: Helical acquisition of images was performed from the lung bases through the pelvis. FINDINGS: The lung bases are clear of consolidation. There is no pleural effusion. Heart size is normal. There are small calcified splenic granulomata. Liver shows no focal defect. The bile ducts are not di lated. There are clips from cholecystectomy. There is no evidence of pancreatic mass. There is previo us gastric surgery noted. There is no adrenal mass. There is rounded 2.5 cm low-density area lateral right kidney consistent wi th cortical cyst. There are multiple bilateral renal calcifications that measure up to 5 mm. There is no hydronephrosis. Ureters are not dilated. There is no retroperitoneal adenopathy. Bladder distends smoothly. There is no ascites. There are multiple surgical clips at the cecum. There is no evidence of a bowel obstruction. There are no dilated loops. There is slight thickening of the distal rectosig moid colon. There is rectal wall thickening. There is no free fluid in the pelvis. I see no bony dest ructive process. IMPRESSION: MILD RECTAL WALL AND DISTAL SIGMOID colon WALL THICKENING CONSISTENT WITH MINIMAL NONSPECIFIC INFLAMM ATORY PROCESS. THIS IS SIMILAR TO OLD EXAM. NO BOWEL OBSTRUCTION. NO FREE AIR OR FLUID. STABLE RIGHT RENAL CORTICAL CYST. NUMEROUS BILATERAL RENAL NONOBSTRUCTING CALCULI WITHOUT MUCH CHANGE.
[2017-12-08] MEDS ORDERED: ONDANSETRON 4 MG/2 ML VIAL IVP PRN (05:18)
[2017-12-08] MEDS ORDERED: NALOXONE 0.4 MG/ML 1 ML VIAL IV PRN (05:18)
[2017-12-08] MEDS ORDERED: methylPREDNISolone SOD SUCCI 125 MG/2 ML VIAL IV STA (05:21)
[2017-12-08] MEDS ORDERED: SODIUM CHLORIDE 0.45% 1,000 ML IV SCH (05:30)
[2017-12-08] MEDS ORDERED: amLODIPine 5 MG TAB PO STA (05:40)
[2017-12-08] MEDS: MORPHINE SULFATE 4 MG/ML SYRINGE IV PRN ×3 (05:45→14:56)
--- NOTE | 2017-12-08 08:26 | P.HPIM ---
History of Present Illness H&P Date: 12/08/17 Chief Complaint: Diffuse abdominal pain. This is a history of physical on a 67-year-old white male who has underlying history of Crohn's disease and opiate dependence with history of rheumatoid arthritis and gout. The patient was on his way back from [place] and had significant flareup of abdominal pain. Evaluation emergency room did show exacerbation of Crohn's colitis. He is now admitted for control of this. No hemoptysis. No overt rectal bleeding stated. Diffuse pain and bloating is noted. No palliative factors were stated. He does take Suboxone for opiate dependence history and has been doing well with this. Review of Systems Constitutional: Denies chills, Denies fever Eyes: denies blurred vision, denies pain Cardiovascular: Reports as per HPI Gastrointestinal: Reports as per HPI Genitourinary: Denies polyuria Musculoskeletal: Denies myalgias Integumentary: Denies pruritus, Denies rash Neurological: Denies numbness, Denies weakness Past Medical History Past Medical History: GERD/Reflux, Hypertension, Renal Disease, Rheumatoid Arthritis (RA), Skin Disorder, Supraventricular Tachycardia (SVT) Additional Past Medical History / Comment(s): hx CROHN'S, IBS, migraines-just a couple, hx SVT with ablation, hx ulcers, anemia, generalized gout, kidney stones, psoriasis.RINGING IN EARS History of Any Multi-Drug Resistant Organisms: None Reported Date of last positivie culture/infection: 11/29/2013 MDRO Source:: C-DIFF x 6 in 2013 Past Surgical History: Bowel Resection, Cardiac Ablation, Cholecystectomy, Heart Catheterization, Hernia Repair, Orthopedic Surgery, Tonsillectomy Additional Past Surgical History / Comment(s): partial gastrectomy (ulcers), fecal transplant, bilateral knee arthroscopic surgery, EGD/colonoscopies, R inguinal hernia repair Past Anesthesia/Blood Transfusion Reactions: Blood Transfusion Reaction, Motion Sickness Additional Past Anesthesia/Blood Transfusion Reaction / Comment(s): BLOOD TRANSFUSION- BROKE OUT IN HIVES age 21 Past Psychological History: Anxiety, Depression Smoking Status: Never smoker - Past Family History Father Family Medical History: CVA/TIA, Dementia, Hypertension Additional Family Medical History / Comment(s): Father at the age of 86yrs Mother Family Medical History: Myocardial Infarction ([place]), Pulmonary Embolus Additional Family Medical History / Comment(s): AGE 73-[place], STROKE, UNSURE OF ANY OTHER HX Medications and Allergies Home Medications Medication Instructions Recorded Confirmed Type Multivitamins, Thera [Multivitamin 1 tab PO DAILY 11/10/15 11/03/17 History (formulary)] Adalimumab [Humira Pen Crohn-Uc-Hs 40 mg SQ Q14D 05/12/16 11/09/17 History Starter] Allopurinol [Zyloprim] 300 mg PO HS 11/03/17 11/03/17 History Buprenorphine HCl/Naloxone HCl 1 each SL HS 11/03/17 11/03/17 History [Suboxone 4 mg-1 mg Sl Film] Omeprazole Magnesium [PriLOSEC OTC] 20 mg PO DAILY 11/03/17 11/03/17 History amLODIPine [Norvasc] 5 mg PO DAILY 11/03/17 11/09/17 History Allergies Allergy/AdvReac Type Severity Reaction Status Date / Time Iodinated Contrast- Oral and Allergy Anaphylaxis Verified 11/09/17 07:45 IV Dye [Iodinated Contrast Media - IV Dye] iodine Allergy Anaphylaxis Verified 11/09/17 07:45 Physical Exam Vitals: Vital Signs Temp Pulse Pulse Resp BP BP Pulse Ox 12/08/17 07:37 52 L 16 168/77 97 12/08/17 05:59 98.4 F 80 18 169/91 97 12/08/17 05:29 68 18 191/91 99 12/08/17 04:42 70 18 188/86 100 12/08/17 01:40 97.6 F 110 H 18 146/94 98 Intake and Output 12/07/17 12/08/17 12/08/17 22:59 06:59 14:59 Other: Weight 81.647 kg - Constitutional General appearance: no acute distress - EENT Eyes: EOMI - Neck Neck: no lymphadenopathy - Respiratory Respiratory: bilateral: CTA - Cardiovascular Rhythm: regular Heart sounds: normal: S1, S2 Abnormal Heart Sounds: no S3 Gallop - Gastrointestinal General gastrointestinal: decreased bowel sounds, distended, tenderness Localized gastrointestinal: tender: diffuse - Integumentary Integumentary: no cellulitis Results CBC & Chem 7: 12/08/17 01:57 12/08/17 01:57 Labs: Abnormal Lab Results - Last 24 Hours (Table) 12/08/17 12/08/17 Range/Units 01:57 01:57 Hgb 12.5 L (13.0-17.5) gm/dL MCHC 30.0 L (31.0-37.0) g/dL RDW 18.0 H (11.5-15.5) % Chloride 117 H (98-107) mmol/L Carbon Dioxide 17 L (22-30) mmol/L Assessment and Plan (1) Exacerbation of Crohn's disease Current Visit: Yes Status: Acute Code(s): K50.90 - CROHN'S DISEASE, UNSPECIFIED, WITHOUT COMPLICATIONS SNOMED Code(s): 62945432 (2) Abdominal pain Current Visit: No Status: Acute Code(s): R10.9 - UNSPECIFIED ABDOMINAL PAIN SNOMED Code(s): 98211152 (3) Gout Current Visit: No Status: Chronic Code(s): M10.9 - GOUT, UNSPECIFIED SNOMED Code(s): 83153737 (4) Rheumatoid arthritis Current Visit: No Status: Chronic Code(s): M06.9 - RHEUMATOID ARTHRITIS, UNSPECIFIED SNOMED Code(s): 29442345 Plan: We will go ahead and restart his Suboxone once he brings the medication from home via his . GIs now consulted. I appreciate their input. New prep check CBC and CMP in a.m. per *Site Medrol for appropriate steroid treatment. Otherwise, anticipate weaning to oral prednisone the next day or so if he stabilizes and starts tolerating diet and clinically improves. Reconcile medications otherwise. Restart amlodipine 10 mg daily for hypertension.
[2017-12-08] MEDS: SODIUM CHLORIDE 0.9% 1,000 ML IV SCH ×2 (08:30→21:37)
[2017-12-08] MEDS ORDERED: HUMIRA SQ SCH (08:30)
[2017-12-08] MEDS: amLODIPine 10 MG TAB PO SCH (09:41)
[2017-12-08] MEDS: PANTOPRAZOLE 40 MG TABLET PO SCH (09:42)
[2017-12-08] MEDS: FAMOTIDINE 20 MG TAB PO SCH ×2 (10:30→21:34)
[2017-12-08] MEDS ORDERED: methylPREDNISolone SOD SUCCI 125 MG/2 ML VIAL IV SCH (12:00)
[2017-12-08 12:21] LABS: Glucose,Whole Blood 178 mg/dL (75-99)
[2017-12-08] MEDS: MULTIVITAMINS, THERA 1 EACH TAB PO SCH (13:22)
--- NOTE | 2017-12-08 14:21 | XR ---
EXAMINATION TYPE: XR abdomen 1V DATE OF EXAM: 12/08/2017 COMPARISON: 05/14/2016 INDICATION: Obstruction, ileus history of Crohn's disease TECHNIQUE: Single view abdomen supine view FINDINGS: There is a nonspecific bowel gas pattern. Air is through the colon. No mass effect is evident. Psoas margins are normal. No organomegaly is present. Post surgical clips are within the right midabdomen and right upper quadrant. Small calcification ove rlie the bilateral kidneys IMPRESSION: 1. No significant fecal retention. 2. No suspicious abnormal bowel gas pattern
--- NOTE | 2017-12-08 15:37 | P.CONS ---
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 Per the patient's he was driving home from [place] yesterday. During that time he had 6-7 bowel movements which she reports is below his baseline. He denies any blood per rectum. He reports that the abdominal pain began and describes it as sharp and aching in quality. He states that initially the pain was above the umbilicus but today the pain is more in the lower abdomen. The patient reports 3 episodes of associated nonbilious, nonbloody emesis. He presented to the emergency department for evaluation of this pain. On presentation to the hospital the patient was found to have a hemoglobin of 12.5 with no leukocytosis and a normal INR. The patient had a CT of the abdomen which showed mild rectal and sigmoid thickening which was similar to prior exams. He recently underwent a colonoscopy earlier this year which was significant for mild erythema at the anastomotic site of the right colon. The patient denies any fevers chills or recent weight loss. No other complaints at this time. Endoscopic history: Patient had a colonoscopy earlier this year significant for erythema at the right colon anastomosis. Patient had EGD this year significant for superficial ulcerations of his Billroth II anastomosis. Review of Systems REVIEW OF SYSTEMS: CARDIOPULMONARY: No chest pain or shortness of breath. GENITOURINARY: No dysuria or hematuria. MUSCULOSKELETAL: No weakness reported. SKIN: Denies any new rashes or lesions. PSYCHIATRIC: Denies any depression or anxiety. NEUROLOGY: Denies headache, denies any new focal deficits. EARS: No new hearing loss but the patient does report a chronic history of tinnitus. NOSE: No discharge. EYES: No pain in eyes or change in vision. CONSTITUTIONAL: No recent weight loss. No fever, chills, night sweats. Past Medical History Past Medical History: GERD/Reflux, Hypertension, Renal Disease, Rheumatoid Arthritis (RA), Skin Disorder, Supraventricular Tachycardia (SVT) Additional Past Medical History / Comment(s): hx CROHN'S (takes tresa with last dose 12/07/17), IBS, chronic diarrhea, migraines-just a couple, hx SVT with ablation, hx ulcers, anemia, generalized gout, kidney stones pt passed on his own, psoriasis, bilateral tinnitis. History of Any Multi-Drug Resistant Organisms: None Reported Year Discovered:: 11/29/2013 MDRO Source:: C-DIFF x 6 in 2013 Past Surgical History: Bowel Resection, Cardiac Ablation, Cholecystectomy, Heart Catheterization, Hernia Repair, Orthopedic Surgery, Tonsillectomy Additional Past Surgical History / Comment(s): partial gastrectomy (ulcers), bowel resections, fecal transplant, bilateral knee arthroscopic surgery, EGD/ colonoscopies, R inguinal hernia repair Past Anesthesia/Blood Transfusion Reactions: Blood Transfusion Reaction, Motion Sickness Additional Past Anesthesia/Blood Transfusion Reaction / Comm: BLOOD TRANSFUSION - BROKE OUT IN [place] age 21 Smoking Status: Never smoker Additional History: Denies alcohol abuse. - Past Family History Father Family Medical History: Dementia Additional Family Medical History / Comment(s): Father at the age of 86yrs. Mother Family Medical History: Myocardial Infarction (DE), Pulmonary Embolus Additional Family Medical History / Comment(s): AGE 73-DE, STROKE DURING CARATID PROCEDURE Medications and Allergies Home Medications Medication Instructions Recorded Confirmed Type Multivitamins, Thera [Multivitamin 1 tab PO DAILY 11/10/15 12/08/17 History (formulary)] Adalimumab [Humira Pen Crohn-Uc-Hs 40 mg SQ Q14D 05/12/16 12/08/17 History Starter] Omeprazole Magnesium [PriLOSEC OTC] 20 mg PO BID 11/03/17 12/08/17 History Febuxostat [Uloric] 80 mg PO DAILY 12/08/17 12/08/17 History Orphenadrine Citrate 100 mg PO BID 12/08/17 12/08/17 History amLODIPine [Norvasc] 5 mg PO DAILY 12/08/17 12/08/17 History Allergies Allergy/AdvReac Type Severity Reaction Status Date / Time Iodinated Contrast- Oral and Allergy Anaphylaxis Verified 12/08/17 08:49 IV Dye [Iodinated Contrast Media - IV Dye] iodine Allergy Anaphylaxis Verified 12/08/17 08:49 Physical Exam Vitals: Vital Signs Temp Pulse Pulse Resp BP BP Pulse Ox 12/08/17 07:37 52 L 16 168/77 97 12/08/17 05:59 98.4 F 80 18 169/91 97 12/08/17 05:29 68 18 191/91 99 12/08/17 04:42 70 18 188/86 100 12/08/17 01:40 97.6 F 110 H 18 146/94 98 Intake and Output 12/07/17 12/08/17 12/08/17 22:59 06:59 14:59 Other: Weight 81.647 kg On physical examination, patient appears comfortable in no apparent distress. HEENT: Unremarkable. Conjunctivae pink. Sclerae anicteric.No conjunctival injection. Oral cavity no lesions. NECK: Trachea midline, no gross abnormalities. CHEST: Clear to auscultation. HEART: Regular rate and rhythm. ABDOMEN: Soft. Bowel sounds are hypoactive. The patient has multiple well- healed scars on his abdomen. No guarding or rigidity. No organomegaly. EXTREMITIES: No pedal edema. SKIN: No rashes. NEUROLOGIC: Alert and oriented x3. No focal deficits. Results CBC & Chem 7: 12/08/17 01:57 12/08/17 01:57 Labs: Abnormal Lab Results - Last 24 Hours (Table) 12/08/17 12/08/17 12/08/17 Range/Units 01:57 01:57 12:18 Hgb 12.5 L (13.0-17.5) gm/dL MCHC 30.0 L (31.0-37.0) g/dL RDW 18.0 H (11.5-15.5) % Chloride 117 H (98-107) mmol/L Carbon Dioxide 17 L (22-30) mmol/L POC Glucose (mg/dL) 178 H (75-99) mg/dL CT scan - abdomen: report reviewed (Mild rectal and sigmoid thickening similar to previous exams.) Assessment and Plan (1) Abdominal pain Narrative/Plan: Given the patient's long history of Crohn's disease and the similarity of his current symptoms to prior episodes of exacerbations of his IBD it is likely that his abdominal pain is due to a flare of his Crohn's. However given the patient's reports of no bowel movements or flatus today and multiple prior abdominal surgeries will keep bowel obstruction due to adhesions in the differential. Less likely is infectious enteritis, recurrent Clostridium difficile in the setting of decreased bowel movements or other etiology. Current Visit: No Status: Acute Code(s): R10.9 - UNSPECIFIED ABDOMINAL PAIN SNOMED Code(s): 88155609 (2) Nausea and vomiting Narrative/Plan: The patient reports 3 episodes of vomiting prior to presentation. Likely related to above. Current Visit: Yes Status: Acute Code(s): R11.2 - NAUSEA WITH VOMITING, UNSPECIFIED SNOMED Code(s): 66402840 (3) History of Clostridium difficile colitis Narrative/Plan: Patient is status post fecal microbiota transplant in 2014. Current Visit: Yes Status: Acute Code(s): Z86.19 - PERSONAL HISTORY OF OTHER INFECTIOUS AND PARASITIC DISEASES SNOMED Code(s): 852890431 (4) Crohns disease Narrative/Plan: Long-standing history of stricturing Crohn's disease complicated with multiple surgeries required for underlying disease and episodes of obstruction. The patient has had better control disease over the past few years with anti-TNF therapy, currently on Humira. Denies denies any perianal disease. Current Visit: Yes Status: Acute Code(s): K50.90 - CROHN'S DISEASE, UNSPECIFIED, WITHOUT COMPLICATIONS SNOMED Code(s): 64996025 Plan: Supportive care Continue Solu-Medrol, 20 mg every 8 hours. With plan to switch to oral medication in the patient's symptoms improved. Patient currently on diet, will order x-ray to rule out obstruction. There is no evidence of obstruction or ileus on computed tomography scan on admission, however given the patient's complaints of no bowel movements or flatus today repeat imaging is warranted. If imaging is normal can continue diet. No plan for stool studies as patient is reporting decreased frequency of bowel movements. We'll order ESR and CRP and fecal calprotectin Continue to monitor hemoglobin, white count and BMP Thank you for the opportunity to ask in the care of this patient we will continue to follow
[2017-12-08] MEDS ORDERED: methylPREDNISolone SOD SUCCI 40 MG/ML 1 ML VIAL IV SCH (16:00)
[2017-12-08 16:58] LABS: Glucose,Whole Blood 191 mg/dL (75-99)
[2017-12-08] MEDS: INSULIN ASPART 100 UNIT/ML 1 ML 10 ML VIAL SQ SCH ×2 (18:16→21:34)
[2017-12-08] MEDS: SUBOXONE PO SCH (18:26)
[2017-12-08] MEDS: methylPREDNISolone SOD SUCCI 40 MG/ML 1 ML VIAL IV SCH (18:34)
[2017-12-08] MEDS ORDERED: NALOXONE HCL SL SCH (21:00)
[2017-12-08] MEDS ORDERED: ALLOPURINOL 300 MG TAB PO SCH (21:00)
[2017-12-08] MEDS ORDERED: BUPRENORPHINE HCL SL SCH (21:00)
[2017-12-08 21:33] LABS: Glucose,Whole Blood 290 mg/dL (75-99)
[2017-12-09] MEDS: methylPREDNISolone SOD SUCCI 40 MG/ML 1 ML VIAL IV SCH ×3 (02:39→20:44)
[2017-12-09 07:41] LABS: Glucose,Whole Blood 163 mg/dL (75-99)
[2017-12-09] MEDS ORDERED: oxyCODONE-APAP 5-325MG 1 EACH TAB PO PRN (08:07)
[2017-12-09] MEDS: INSULIN ASPART 100 UNIT/ML 1 ML 10 ML VIAL SQ SCH ×4 (08:19→20:51)
[2017-12-09] MEDS: amLODIPine 10 MG TAB PO SCH (08:19)
[2017-12-09] MEDS: PANTOPRAZOLE 40 MG TABLET PO SCH (08:20)
[2017-12-09] MEDS ORDERED: ACETAMINOPHEN TAB 325 MG TAB PO PRN (08:20)
[2017-12-09] MEDS: FAMOTIDINE 20 MG TAB PO SCH ×2 (08:20→20:45)
--- NOTE | 2017-12-09 08:23 | P.PN ---
Subjective Principal diagnosis: Crohn's exacerbation This is a 67-year-old white male essentially admitted for exacerbation of Crohn' s colitis. The patient has an underlying history of opiate dependence and does take Suboxone. He is requesting headache medication. We will go ahead and start some Tylenol. No sniffing chest pain or shortness of breath at this time. He seems somewhat lethargic this morning. However, abdominal complaints are decreased compared to yesterday. Objective - Vital Signs Vital signs: Vital Signs Temp 98.1 F 12/09/17 07:37 Pulse 60 12/09/17 07:37 Resp 16 12/09/17 07:37 BP 152/57 12/09/17 07:37 Pulse Ox 95 12/09/17 07:37 Intake & Output 12/08/17 12/09/17 12/09/17 18:59 06:59 18:59 Intake Total 1200 Output Total 200 Balance 1200 -200 Intake: Oral 1200 Output: Urine 200 Other: # Voids 1 2 # Bowel Movements 1 - Constitutional General appearance: Present: average body habitus - EENT Eyes: Absent: abnormal pupil - Respiratory Respiratory: bilateral: CTA - Cardiovascular Rhythm: regular Heart sounds: normal: S1, S2 Abnormal Heart Sounds: Absent: S3 Gallop - Gastrointestinal General gastrointestinal: Present: soft. Absent: tenderness - Integumentary Integumentary: Present: rash - Neurologic Neurologic: Absent: focal deficits - Labs CBC & Chem 7: 12/08/17 01:57 12/08/17 01:57 Labs: Abnormal Lab Results - Last 24 Hours (Table) 12/08/17 12/08/17 12/08/17 Range/Units 12:18 16:48 21:29 POC Glucose (mg/dL) 178 H 191 H 290 H (75-99) mg/dL 12/09/17 Range/Units 07:35 POC Glucose (mg/dL) 163 H (75-99) mg/dL Assessment and Plan (1) Exacerbation of Crohn's disease Current Visit: Yes Status: Acute Code(s): K50.90 - CROHN'S DISEASE, UNSPECIFIED, WITHOUT COMPLICATIONS SNOMED Code(s): 94289057 (2) Abdominal pain Current Visit: No Status: Acute Code(s): R10.9 - UNSPECIFIED ABDOMINAL PAIN SNOMED Code(s): 92748910 (3) Gout Current Visit: No Status: Chronic Code(s): M10.9 - GOUT, UNSPECIFIED SNOMED Code(s): 49093246 (4) Rheumatoid arthritis Current Visit: No Status: Chronic Code(s): M06.9 - RHEUMATOID ARTHRITIS, UNSPECIFIED SNOMED Code(s): 10158483 Plan: Watch blood pressure closely. Tylenol for headaches. Continue Suboxone. Check CBC and CMP in a.m. per Dr. Crawford's group will covering for the weekend. Anticipate discharge in next 24-48 hours once we can wean him to oral steroid usage.
[2017-12-09] MEDS: ALLOPURINOL 100 MG TAB PO SCH ×2 (09:36→20:45)
[2017-12-09 09:50] LABS: Anisocytosis Slight; HCT 34.3 % (39.0-53.0); HGB 10.7 gm/dL (13.0-17.5); MCH 29.4 pg (25.0-35.0); MCHC 31.2 g/dL (31.0-37.0); MCV 94.3 fL (80.0-100.0); Mean Platelet Volume 6.9; Platelet Count 163 k/uL (150-450); RBC 3.64 m/uL (4.30-5.90); RDW 17.4 % (11.5-15.5); WBC 11.4 k/uL (3.8-10.6)
[2017-12-09] MEDS: CYCLOBENZAPRINE 10 MG TAB PO PRN (09:50)
[2017-12-09 10:16] LABS: Albumin 3.2 g/dL (3.5-5.0); Calcium 7.9 mg/dL (8.4-10.2); Potassium 3.7 mmol/L (3.5-5.1); Total Bilirubin 0.7 mg/dL (0.2-1.3); Total Protein 5.9 g/dL (6.3-8.2)
--- NOTE | 2017-12-09 10:49 | P.PN ---
Subjective Progress Note Date: 12/09/17 Principal diagnosis: Abdominal pain, history of Crohn's The patient is seen sitting in bed. He still has not had a bowel movement today but does report passing gas. He reports the pain significantly improved and is tolerating his diet. Objective - Vital Signs Vital signs: Vital Signs Temp 98.1 F 12/09/17 07:37 Pulse 60 12/09/17 07:37 Resp 16 12/09/17 07:37 BP 152/57 12/09/17 07:37 Pulse Ox 95 12/09/17 07:37 Intake & Output 12/08/17 12/09/17 12/09/17 18:59 06:59 18:59 Intake Total 1200 Output Total 200 Balance 1200 -200 Intake: Oral 1200 Output: Urine 200 Other: # Voids 1 2 # Bowel Movements 1 - Exam On physical examination, patient appears comfortable in no apparent distress. HEENT: Unremarkable. Conjunctivae pink. Sclerae anicteric.No conjunctival injection. Oral cavity no lesions. NECK: Trachea midline, no gross abnormalities. CHEST: Clear to auscultation. HEART: Regular rate and rhythm. ABDOMEN: Soft. Bowel sounds are positive. No organomegaly. Mildly tender in the lower abdomen, no guarding or rigidity. Abdomen is significant for multiple well-healed surgical scars. EXTREMITIES: No pedal edema. SKIN: No rashes. NEUROLOGIC: Alert and oriented x3. No focal deficits. - Labs CBC & Chem 7: 12/09/17 09:11 12/09/17 09:11 Labs: Abnormal Lab Results - Last 24 Hours (Table) 12/08/17 12/08/17 12/08/17 Range/Units 12:18 16:48 21:29 WBC (3.8-10.6) k/uL RBC (4.30-5.90) m/uL Hgb (13.0-17.5) gm/dL Hct (39.0-53.0) % RDW (11.5-15.5) % Chloride (98-107) mmol/L Glucose (74-99) mg/dL POC Glucose (mg/dL) 178 H 191 H 290 H (75-99) mg/dL Calcium (8.4-10.2) mg/dL Alkaline Phosphatase (38-126) U/L Total Protein (6.3-8.2) g/dL Albumin (3.5-5.0) g/dL 12/09/17 12/09/17 12/09/17 Range/Units 07:35 09:11 09:11 WBC 11.4 H (3.8-10.6) k/uL RBC 3.64 L (4.30-5.90) m/uL Hgb 10.7 L (13.0-17.5) gm/dL Hct 34.3 L (39.0-53.0) % RDW 17.4 H (11.5-15.5) % Chloride 109 H (98-107) mmol/L Glucose 169 H (74-99) mg/dL POC Glucose (mg/dL) 163 H (75-99) mg/dL Calcium 7.9 L (8.4-10.2) mg/dL Alkaline Phosphatase 33 L (38-126) U/L Total Protein 5.9 L (6.3-8.2) g/dL Albumin 3.2 L (3.5-5.0) g/dL Assessment and Plan (1) Abdominal pain Narrative/Plan: Given the patient's long history of Crohn's disease and the similarity of his current symptoms to prior episodes of exacerbations of his IBD it is likely that his abdominal pain is due to a flare of his Crohn's. However given the patient's reports of no bowel movements or flatus today and multiple prior abdominal surgeries will keep bowel obstruction due to adhesions in the differential. Less likely is infectious enteritis, recurrent Clostridium difficile in the setting of decreased bowel movements or other etiology. Follow-up abdominal x-ray did not show any ileus or obstruction yesterday and today the patient is reporting flatus, stomal bowel movements. Current Visit: No Status: Acute Code(s): R10.9 - UNSPECIFIED ABDOMINAL PAIN SNOMED Code(s): 41279086 (2) Nausea and vomiting Narrative/Plan: Resolved. Current Visit: Yes Status: Acute Code(s): R11.2 - NAUSEA WITH VOMITING, UNSPECIFIED SNOMED Code(s): 66967831 (3) History of Clostridium difficile colitis Narrative/Plan: Patient is status post fecal microbiota transplant in 2014. Current Visit: Yes Status: Acute Code(s): Z86.19 - PERSONAL HISTORY OF OTHER INFECTIOUS AND PARASITIC DISEASES SNOMED Code(s): 865768724 (4) Crohns disease Narrative/Plan: Long-standing history of stricturing Crohn's disease complicated with multiple surgeries required for underlying disease and episodes of obstruction. The patient has had better control disease over the past few years with anti-TNF therapy, currently on Humira. Denies denies any perianal disease. Current Visit: Yes Status: Acute Code(s): K50.90 - CROHN'S DISEASE, UNSPECIFIED, WITHOUT COMPLICATIONS SNOMED Code(s): 56079000 Plan: Supportive care Continue Solu-Medrol, 20 mg every 8 hours. With plan to switch to oral medication in the patient's symptoms improved. Patient currently tolerating his diet. Abdominal x-ray yesterday was negative for any signs of obstruction or ileus. No plan for stool studies as patient is reporting decreased frequency of bowel movements. We'll order ESR and CRP pending. Continue to monitor hemoglobin, white count and BMP Thank you for the opportunity to ask in the care of this patient we will continue to follow
[2017-12-09 11:41] LABS: Glucose,Whole Blood 112 mg/dL (75-99)
[2017-12-09] MEDS: MULTIVITAMINS, THERA 1 EACH TAB PO SCH (12:57)
[2017-12-09] MEDS: SODIUM CHLORIDE 0.9% 1,000 ML IV SCH ×2 (12:57→23:14)
[2017-12-09 17:04] LABS: Glucose,Whole Blood 164 mg/dL (75-99)
[2017-12-09] MEDS: SUBOXONE PO SCH (17:28)
[2017-12-09 19:50] LABS: Hemoglobin A1C 5.2 % (4.0-6.0)
[2017-12-09 20:27] LABS: Glucose,Whole Blood 214 mg/dL (75-99)
[2017-12-10] MEDS: methylPREDNISolone SOD SUCCI 40 MG/ML 1 ML VIAL IV SCH ×3 (02:48→20:19)
[2017-12-10 07:09] LABS: Glucose,Whole Blood 157 mg/dL (75-99)
[2017-12-10 08:02] LABS: Anisocytosis Slight; HCT 35.2 % (39.0-53.0); Hypochromasia Slight; MCH 29.6 pg (25.0-35.0); MCHC 31.3 g/dL (31.0-37.0); MCV 94.7 fL (80.0-100.0); Platelet Count 146 k/uL (150-450); RBC 3.72 m/uL (4.30-5.90); RDW 17.3 % (11.5-15.5); WBC 9.3 k/uL (3.8-10.6)
[2017-12-10 08:12] LABS: ALT 29 U/L (21-72); AST 25 U/L (17-59); Albumin 3.2 g/dL (3.5-5.0); Alkaline Phosphatase 37 U/L (38-126); Anion Gap 7 mmol/L; Blood Urea Nitrogen 22 mg/dL (9-20); Calcium 8.2 mg/dL (8.4-10.2); Carbon Dioxide 22 mmol/L (22-30); Chloride 109 mmol/L (98-107); Glucose 134 mg/dL (74-99); Potassium 3.9 mmol/L (3.5-5.1); Sodium 138 mmol/L (137-145); Total Bilirubin 0.6 mg/dL (0.2-1.3); Total Protein 6.1 g/dL (6.3-8.2)
[2017-12-10] MEDS: INSULIN ASPART 100 UNIT/ML 1 ML 10 ML VIAL SQ SCH ×4 (08:16→21:04)
[2017-12-10] MEDS: FAMOTIDINE 20 MG TAB PO SCH ×2 (08:17→20:20)
[2017-12-10] MEDS: ALLOPURINOL 100 MG TAB PO SCH ×2 (08:17→20:19)
[2017-12-10] MEDS: PANTOPRAZOLE 40 MG TABLET PO SCH (08:17)
[2017-12-10] MEDS: amLODIPine 10 MG TAB PO SCH (08:17)
[2017-12-10] MEDS: CYCLOBENZAPRINE 10 MG TAB PO PRN (09:04)
[2017-12-10] MEDS: MULTIVITAMINS, THERA 1 EACH TAB PO SCH (10:31)
[2017-12-10 12:21] LABS: Glucose,Whole Blood 70 mg/dL (75-99)
[2017-12-10] MEDS ORDERED: hydrALAZINE HCL 10 MG TAB PO PRN (14:28)
--- NOTE | 2017-12-10 14:37 | P.PN ---
Subjective Progress Note Date: 12/10/17 Principal diagnosis: Exacerbation of Crohn's disease Mr. Rajan is a 67-year-old male with a past medical history of Crohn's disease, rheumatoid arthritis, gout admitted to the hospital with a chief complaint of Abdominal pain. He is currently being treated for exacerbation of Crohn's colitis with IV steroids. Today the patient is lying comfortably in the bed appears to be no acute distress. He states his abdominal pain is better compared to yesterday. He denies any other active complaints. On review of systems denies having any fevers chills or rigors. No chest pain or palpitations. No shortness of breath or cough. No dysuria or hematuria. Objective - Vital Signs Vital signs: Vital Signs Temp 96.4 F L 12/10/17 07:00 Pulse 45 L 12/10/17 07:00 Resp 18 12/10/17 08:20 BP 189/67 12/10/17 07:00 Pulse Ox 94 L 12/10/17 07:00 Intake & Output 12/09/17 12/10/17 12/10/17 18:59 06:59 18:59 Intake Total 600 400 Balance 600 400 Weight 81.647 kg Intake: Oral 600 400 Other: # Voids 3 1 # Bowel Movements 1 5 - Exam Constitutional General appearance: Present: average body habitus - EENT Eyes: Absent: abnormal pupil - Respiratory Respiratory: bilateral: CTA - Cardiovascular Rhythm: regular Heart sounds: normal: S1, S2 Abnormal Heart Sounds: Absent: S3 Gallop - Gastrointestinal General gastrointestinal: Present: soft. Absent: tenderness - Integumentary Integumentary: Present: rash - Neurologic Neurologic: Absent: focal deficits - Labs CBC & Chem 7: 12/10/17 07:42 12/10/17 07:42 Labs: Abnormal Lab Results - Last 24 Hours (Table) 12/09/17 12/09/17 12/10/17 Range/Units 17:00 20:21 07:07 RBC (4.30-5.90) m/uL Hgb (13.0-17.5) gm/dL Hct (39.0-53.0) % RDW (11.5-15.5) % Plt Count (150-450) k/uL Chloride (98-107) mmol/L BUN (9-20) mg/dL Glucose (74-99) mg/dL POC Glucose (mg/dL) 164 H 214 H 157 H (75-99) mg/dL Calcium (8.4-10.2) mg/dL Alkaline Phosphatase (38-126) U/L Total Protein (6.3-8.2) g/dL Albumin (3.5-5.0) g/dL 12/10/17 12/10/17 12/10/17 Range/Units 07:42 07:42 12:15 RBC 3.72 L (4.30-5.90) m/uL Hgb 11.0 L (13.0-17.5) gm/dL Hct 35.2 L (39.0-53.0) % RDW 17.3 H (11.5-15.5) % Plt Count 146 L (150-450) k/uL Chloride 109 H (98-107) mmol/L BUN 22 H (9-20) mg/dL Glucose 134 H (74-99) mg/dL POC Glucose (mg/dL) 70 L (75-99) mg/dL Calcium 8.2 L (8.4-10.2) mg/dL Alkaline Phosphatase 37 L (38-126) U/L Total Protein 6.1 L (6.3-8.2) g/dL Albumin 3.2 L (3.5-5.0) g/dL Assessment and Plan Assessment: ASSESSMENT Acute exacerbation of Crohn's disease History of rheumatoid arthritis History of gout Hypertension Plan; patient to be continued on IV steroids and Suboxone for his chronic pain issues. Patient's hemoglobin has been stable. Patient's blood pressure has been high so will add hydralazine. Continue with the rest of the medication regimen. Further recommendations depending on the progress.
[2017-12-10] MEDS: SODIUM CHLORIDE 0.9% 1,000 ML IV SCH (15:22)
[2017-12-10 17:20] LABS: Glucose,Whole Blood 173 mg/dL (75-99)
[2017-12-10] MEDS: SUBOXONE PO SCH (18:06)
[2017-12-10 20:49] LABS: Glucose,Whole Blood 142 mg/dL (75-99)
--- NOTE | 2017-12-10 23:50 | P.PN ---
Subjective Progress Note Date: 12/10/17 Principal diagnosis: Abdominal pain, history of Crohn's The patient is seen sitting in bed. Reporting 5-6 loose BM's which is approximately his baseline. He reports the pain significantly improved and is tolerating his diet. Objective - Vital Signs Vital signs: Vital Signs Temp 97.7 F 12/10/17 22:30 Pulse 60 12/10/17 22:30 Resp 20 12/10/17 22:30 BP 170/70 12/10/17 22:30 Pulse Ox 96 12/10/17 22:30 Intake & Output 12/10/17 12/10/17 12/11/17 06:59 18:59 06:59 Intake Total 400 Balance 400 Weight 81.647 kg 81.647 kg Intake: Oral 400 Other: # Voids 1 2 # Bowel Movements 1 2 - Exam On physical examination, patient appears comfortable in no apparent distress. HEENT: Unremarkable. Conjunctivae pink. Sclerae anicteric.No conjunctival injection. Oral cavity no lesions. NECK: Trachea midline, no gross abnormalities. CHEST: Clear to auscultation. HEART: Regular rate and rhythm. ABDOMEN: Soft. Bowel sounds are positive. No organomegaly. Mildly tender in the lower abdomen, no guarding or rigidity. Abdomen is significant for multiple well-healed surgical scars. EXTREMITIES: No pedal edema. SKIN: No rashes. NEUROLOGIC: Alert and oriented x3. No focal deficits. - Labs CBC & Chem 7: 12/10/17 07:42 12/10/17 07:42 Labs: Abnormal Lab Results - Last 24 Hours (Table) 12/10/17 12/10/17 12/10/17 Range/Units 07:07 07:42 07:42 RBC 3.72 L (4.30-5.90) m/uL Hgb 11.0 L (13.0-17.5) gm/dL Hct 35.2 L (39.0-53.0) % RDW 17.3 H (11.5-15.5) % Plt Count 146 L (150-450) k/uL Chloride 109 H (98-107) mmol/L BUN 22 H (9-20) mg/dL Glucose 134 H (74-99) mg/dL POC Glucose (mg/dL) 157 H (75-99) mg/dL Calcium 8.2 L (8.4-10.2) mg/dL Alkaline Phosphatase 37 L (38-126) U/L Total Protein 6.1 L (6.3-8.2) g/dL Albumin 3.2 L (3.5-5.0) g/dL 12/10/17 12/10/17 12/10/17 Range/Units 12:15 17:18 20:44 RBC (4.30-5.90) m/uL Hgb (13.0-17.5) gm/dL Hct (39.0-53.0) % RDW (11.5-15.5) % Plt Count (150-450) k/uL Chloride (98-107) mmol/L BUN (9-20) mg/dL Glucose (74-99) mg/dL POC Glucose (mg/dL) 70 L 173 H 142 H (75-99) mg/dL Calcium (8.4-10.2) mg/dL Alkaline Phosphatase (38-126) U/L Total Protein (6.3-8.2) g/dL Albumin (3.5-5.0) g/dL Assessment and Plan (1) Abdominal pain Narrative/Plan: Given the patient's long history of Crohn's disease and the similarity of his current symptoms to prior episodes of exacerbations of his IBD it is likely that his abdominal pain is due to a flare of his Crohn's. However given the patient's reports of no bowel movements or flatus today and multiple prior abdominal surgeries will keep bowel obstruction due to adhesions in the differential. Less likely is infectious enteritis, recurrent Clostridium difficile in the setting of decreased bowel movements or other etiology. Abdominal pain improved, with bowel movements back to baseline. Current Visit: No Status: Acute Code(s): R10.9 - UNSPECIFIED ABDOMINAL PAIN SNOMED Code(s): 30750387 (2) Nausea and vomiting Narrative/Plan: Resolved. Current Visit: Yes Status: Acute Code(s): R11.2 - NAUSEA WITH VOMITING, UNSPECIFIED SNOMED Code(s): 52298395 (3) History of Clostridium difficile colitis Narrative/Plan: Patient is status post fecal microbiota transplant in 2014. Current Visit: Yes Status: Acute Code(s): Z86.19 - PERSONAL HISTORY OF OTHER INFECTIOUS AND PARASITIC DISEASES SNOMED Code(s): 548118675 (4) Crohns disease Narrative/Plan: Long-standing history of stricturing Crohn's disease complicated with multiple surgeries required for underlying disease and episodes of obstruction. The patient has had better control disease over the past few years with anti-TNF therapy, currently on Humira. Denies denies any perianal disease. Current Visit: Yes Status: Acute Code(s): K50.90 - CROHN'S DISEASE, UNSPECIFIED, WITHOUT COMPLICATIONS SNOMED Code(s): 12661974 Plan: Supportive care Continue Solu-Medrol, 20 mg every 8 hours today. Prednisone 40 mg PO ordered for tomorrow. Patient currently tolerating his diet. Abdominal x-ray yesterday was negative for any signs of obstruction or ileus. No plan for stool studies as patient is reporting decreased frequency of bowel movements. CRP normal. Continue to monitor hemoglobin, white count and BMP Thank you for the opportunity to ask in the care of this patient we will continue to follow
[2017-12-11] MEDS: SODIUM CHLORIDE 0.9% 1,000 ML IV SCH ×2 (03:07→16:42)
[2017-12-11 06:30] VITALS: PULSE 56
[2017-12-11] MEDS: INSULIN ASPART 100 UNIT/ML 1 ML 10 ML VIAL SQ SCH ×3 (07:29→17:31)
[2017-12-11] MEDS ORDERED: predniSONE 20 MG TAB PO SCH (09:00)
[2017-12-11 09:38] LABS: Anisocytosis Slight; Basophils % (A) 0 %; Eosinophils % (A) 1 %; HCT 33.7 % (39.0-53.0); HGB 10.7 gm/dL (13.0-17.5); Hypochromasia Slight; Lymphocytes # (A) 2.2 k/uL (1.0-4.8); Lymphocytes % (A) 26 %; MCH 30.3 pg (25.0-35.0); MCHC 31.8 g/dL (31.0-37.0); MCV 95.1 fL (80.0-100.0); Mean Platelet Volume 6.9; Monocytes # (A) 0.5 k/uL (0-1.0); Monocytes % (A) 6 %; Neutrophils # (A) 5.5 k/uL (1.3-7.7); Neutrophils % (A) 66 %; Platelet Count 156 k/uL (150-450); RBC 3.55 m/uL (4.30-5.90); RDW 17.1 % (11.5-15.5); WBC 8.3 k/uL (3.8-10.6)
[2017-12-11] MEDS: FAMOTIDINE 20 MG TAB PO SCH (09:52)
[2017-12-11] MEDS: ALLOPURINOL 100 MG TAB PO SCH (09:52)
[2017-12-11] MEDS: PANTOPRAZOLE 40 MG TABLET PO SCH (09:52)
[2017-12-11] MEDS: amLODIPine 10 MG TAB PO SCH (09:52)
[2017-12-11 09:58] LABS: Calcium 8.3 mg/dL (8.4-10.2); Potassium 3.7 mmol/L (3.5-5.1)
[2017-12-11 11:40] LABS: Glucose,Whole Blood 106 mg/dL (75-99)
[2017-12-11] MEDS: MULTIVITAMINS, THERA 1 EACH TAB PO SCH (13:19)
[2017-12-11 15:31] VITALS: BP 175/82; RESP 18; TEMP 98.4
--- NOTE | 2017-12-11 16:13 | P.PN ---
Subjective Progress Note Date: 12/11/17 Principal diagnosis: Abdominal pain, history of Crohn's The patient is seen sitting in bed. Reporting to loose bowel movements today. Abdominal pain feeling better and he is tolerating his diet. Objective - Vital Signs Vital signs: Vital Signs Temp 98.4 F 12/11/17 15:00 Pulse 56 L 12/11/17 15:00 Resp 18 12/11/17 15:00 BP 175/82 12/11/17 15:00 Pulse Ox 95 12/11/17 15:00 Intake & Output 12/10/17 12/11/17 12/11/17 18:59 06:59 18:59 Intake Total 500 Balance 500 Weight 81.647 kg Intake: Oral 500 Other: # Voids 2 1 2 # Bowel Movements 2 - Exam On physical examination, patient appears comfortable in no apparent distress. HEENT: Unremarkable. Conjunctivae pink. Sclerae anicteric.No conjunctival injection. Oral cavity no lesions. NECK: Trachea midline, no gross abnormalities. CHEST: Clear to auscultation. HEART: Regular rate and rhythm. ABDOMEN: Soft. Bowel sounds are positive. No organomegaly. Mildly tender in the lower abdomen, no guarding or rigidity. Abdomen is significant for multiple well-healed surgical scars. EXTREMITIES: No pedal edema. SKIN: No rashes. NEUROLOGIC: Alert and oriented x3. No focal deficits. - Labs CBC & Chem 7: 12/11/17 08:59 12/11/17 08:59 Labs: Abnormal Lab Results - Last 24 Hours (Table) 12/10/17 12/10/17 12/11/17 Range/Units 17:18 20:44 08:59 RBC 3.55 L (4.30-5.90) m/uL Hgb 10.7 L (13.0-17.5) gm/dL Hct 33.7 L (39.0-53.0) % RDW 17.1 H (11.5-15.5) % Chloride (98-107) mmol/L BUN (9-20) mg/dL Glucose (74-99) mg/dL POC Glucose (mg/dL) 173 H 142 H (75-99) mg/dL Calcium (8.4-10.2) mg/dL 12/11/17 12/11/17 Range/Units 08:59 11:38 RBC (4.30-5.90) m/uL Hgb (13.0-17.5) gm/dL Hct (39.0-53.0) % RDW (11.5-15.5) % Chloride 110 H (98-107) mmol/L BUN 24 H (9-20) mg/dL Glucose 123 H (74-99) mg/dL POC Glucose (mg/dL) 106 H (75-99) mg/dL Calcium 8.3 L (8.4-10.2) mg/dL Assessment and Plan (1) Abdominal pain Narrative/Plan: Given the patient's long history of Crohn's disease and the similarity of his current symptoms to prior episodes of exacerbations of his IBD it is likely that his abdominal pain is due to a flare of his Crohn's. Abdominal pain improved, with bowel movements back to baseline. Current Visit: No Status: Acute Code(s): R10.9 - UNSPECIFIED ABDOMINAL PAIN SNOMED Code(s): 16060506 (2) Nausea and vomiting Narrative/Plan: Resolved. Current Visit: Yes Status: Acute Code(s): R11.2 - NAUSEA WITH VOMITING, UNSPECIFIED SNOMED Code(s): 58060685 (3) History of Clostridium difficile colitis Narrative/Plan: Patient is status post fecal microbiota transplant in 2014. Current Visit: Yes Status: Acute Code(s): Z86.19 - PERSONAL HISTORY OF OTHER INFECTIOUS AND PARASITIC DISEASES SNOMED Code(s): 047237568 (4) Crohns disease Narrative/Plan: Long-standing history of stricturing Crohn's disease complicated with multiple surgeries required for underlying disease and episodes of obstruction. The patient has had better control disease over the past few years with anti-TNF therapy, currently on Humira. Denies denies any perianal disease. Current Visit: Yes Status: Acute Code(s): K50.90 - CROHN'S DISEASE, UNSPECIFIED, WITHOUT COMPLICATIONS SNOMED Code(s): 67942340 Plan: Supportive care Prednisone 40 mg PO, would continue with a 5 mg per week taper (40 mg by mouth daily for one week, then 35 mg by mouth for one week, then 25 mg by mouth for one week) Patient currently tolerating his diet. Abdominal x-ray yesterday was negative for any signs of obstruction or ileus. No plan for stool studies as patient is reporting decreased frequency of bowel movements. CRP normal. Continue to monitor hemoglobin, white count and BMP Okay for discharge with follow-up in [address] Yancey. Thank you for the opportunity to ask in the care of this patient we will continue to follow
[2017-12-11] MEDS: SUBOXONE PO SCH (18:04)
== END 2017-12-11 19:01 | disposition home or self-care (01) | DRG 386 ==
LOC: EC 01:39 → 4MS4W 05:20 → OBSVTOIN 12-10 14:55
PROVIDERS: ADMIT Family Medicine; ATTEND Family Medicine
DX: K50.10 Crohn's disease of large intestine without complications (principal); F11.20 Opioid dependence, uncomplicated; F32.9 Major depressive disorder, single episode, unspecified; F41.9 Anxiety disorder, unspecified; G89.29 Other chronic pain; I10 Essential (primary) hypertension; K21.9 Gastro-esophageal reflux disease without esophagitis; M06.9 Rheumatoid arthritis, unspecified; M10.9 Gout, unspecified; Z82.3 Family history of stroke; Z82.49 Family history of ischemic heart disease and other diseases of the circulatory system; Z86.19 Personal history of other infectious and parasitic diseases; Z87.442 Personal history of urinary calculi; Z90.3 Acquired absence of stomach [part of]; Z94.89 Other transplanted organ and tissue status; Z79.899 Other long term (current) drug therapy; Z91.041 Radiographic dye allergy status
CPT/HCPCS: 36415; 74018; 74022; 74176; 80048; 80053; 81003; 83036; 83690; 84484; 85025; 85027; 85610; 85652; 85730; 86140; 93005; 96361; 96374; 96375; 96376; 99285

== ENCOUNTER 2018-04-10 00:43 | Emergency (ER) | payer BC, MEDICARE ==
[2018-04-10 00:47] VITALS: RESP 16
[2018-04-10 02:11] LABS: Basophils % (A) 0 %; Eosinophils # (A) 0.3 k/uL (0-0.7); Eosinophils % (A) 4 %; HCT 34.8 % (39.0-53.0); HGB 10.7 gm/dL (13.0-17.5); Hypochromasia Slight; Lymphocytes # (A) 1.6 k/uL (1.0-4.8); Lymphocytes % (A) 23 %; MCH 30.2 pg (25.0-35.0); MCHC 30.7 g/dL (31.0-37.0); MCV 98.6 fL (80.0-100.0); Mean Platelet Volume 6.4; Monocytes # (A) 0.3 k/uL (0-1.0); Monocytes % (A) 5 %; Neutrophils # (A) 4.4 k/uL (1.3-7.7); Neutrophils % (A) 65 %; Platelet Count 153 k/uL (150-450); RBC 3.53 m/uL (4.30-5.90); WBC 6.8 k/uL (3.8-10.6)
--- NOTE | 2018-04-10 02:12 | XR ---
EXAMINATION TYPE: XR KUB DATE OF EXAM: 04/10/2018 COMPARISON: 05/14/2016 HISTORY: Abdominal pain TECHNIQUE: 2 views upright FINDINGS: There is no sign of intestinal obstruction or pneumoperitoneum. Fecal pattern is normal. Th ere are faint calcifications over both kidneys. There is no sign of a mass. IMPRESSION: Faint bilateral renal calcification. Nonacute abdomen. No change.
[2018-04-10 02:14] LABS: Albumin 3.6 g/dL (3.5-5.0); Calcium 9.1 mg/dL (8.4-10.2); Potassium 3.8 mmol/L (3.5-5.1); Total Bilirubin 0.6 mg/dL (0.2-1.3); Total Protein 6.9 g/dL (6.3-8.2)
[2018-04-10] MEDS ORDERED: predniSONE 20 MG TAB PO STA (02:21)
[2018-04-10] MEDS ORDERED: ONDANSETRON 4 MG/2 ML VIAL IVP STA (02:21)
[2018-04-10] MEDS ORDERED: SODIUM CHLORIDE 0.9% 500 ML 500 ML IV STA (02:21)
[2018-04-10] MEDS ORDERED: MORPHINE SULFATE 4 MG/ML SYRINGE IV STA (02:21)
--- NOTE | 2018-04-10 02:27 | ED ---
Abdominal Pain HPI - General Chief Complaint: Abdominal Pain Stated Complaint: Abd Pain Time Seen by Provider: 04/10/18 01:15 Source: patient Mode of arrival: ambulatory Limitations: no limitations - History of Present Illness Initial Comments: This patient is 68-year-old man with history of Crohn's disease who presents with what he believes is a flareup of the same. He states that he is having 2 days of progressively worse right lower quadrant abdominal pain. He also has been having diarrhea. He states is identical to previous flareups. He is also having some associated nausea tonight but no vomiting. No fever or chills. MD Complaint: abdominal pain Onset/Timin -: days(s) Location: RLQ Radiation: none Migration to: no migration Severity: severe Quality: sharp Consistency: constant Improves With: nothing Worsens With: nothing Associated Symptoms: nausea - Related Data Home Medications Medication Instructions Recorded Confirmed Multivitamins, Thera [Multivitamin 1 tab PO DAILY 11/10/15 12/08/17 (formulary)] Adalimumab [Humira Pen Crohn-Uc-Hs 40 mg SQ Q14D 05/12/16 12/08/17 Starter] Omeprazole Magnesium [PriLOSEC OTC] 20 mg PO BID 11/03/17 12/08/17 Febuxostat [Uloric] 80 mg PO DAILY 12/08/17 12/08/17 Orphenadrine Citrate 100 mg PO BID 12/08/17 12/08/17 amLODIPine [Norvasc] 5 mg PO DAILY 12/08/17 12/08/17 Previous Rx's Medication Instructions Recorded predniSONE 5 mg PO DAILY #7 tab 12/11/17 predniSONE 10 mg PO DAILY #7 tab 12/11/17 predniSONE 20 mg PO BID #14 tab 12/11/17 predniSONE 20 mg PO DAILY #7 tab 12/11/17 predniSONE 30 mg PO DAILY #7 tab 12/11/17 Ciprofloxacin HCl [Cipro] 500 mg PO Q12HR #14 tablet 04/10/18 Ondansetron Odt [Zofran ODT] 4 mg PO Q8HR PRN #10 tab 04/10/18 metroNIDAZOLE [Flagyl] 500 mg PO TID #21 tab 04/10/18 predniSONE 60 mg PO DAILY #30 tab 04/10/18 Allergies Allergy/AdvReac Type Severity Reaction Status Date / Time Iodinated Contrast- Oral and Allergy Anaphylaxis Verified 04/10/18 00:47 IV Dye [Iodinated Contrast Media - IV Dye] Review of Systems ROS Statement: Those systems with pertinent positive or pertinent negative responses have been documented in the HPI. ROS Other: All systems not noted in ROS Statement are negative. Constitutional: Denies: fever, chills, weakness Respiratory: Denies: cough, dyspnea Cardiovascular: Denies: chest pain, palpitations, syncope Gastrointestinal: Reports: abdominal pain, nausea, diarrhea. Denies: vomiting, constipation, melena, hematochezia Genitourinary: Denies: dysuria, hematuria Musculoskeletal: Denies: back pain Skin: Denies: rash Neurological: Denies: headache, weakness, numbness Hematological/Lymphatic: Denies: easy bleeding Past Medical History Past Medical History: GERD/Reflux, Hypertension, Renal Disease, Rheumatoid Arthritis (RA), Skin Disorder, Supraventricular Tachycardia (SVT) Additional Past Medical History / Comment(s): hx CROHN'S (takes tresa with last dose 12/07/17), IBS, chronic diarrhea, migraines-just a couple, hx SVT with ablation, hx ulcers, anemia, generalized gout, kidney stones pt passed on his own, psoriasis, bilateral tinnitis. History of Any Multi-Drug Resistant Organisms: None Reported Date of last positivie culture/infection: 11/29/2013 MDRO Source:: C-DIFF x 6 in 2013 Past Surgical History: Bowel Resection, Cardiac Ablation, Cholecystectomy, Heart Catheterization, Hernia Repair, Orthopedic Surgery, Tonsillectomy Additional Past Surgical History / Comment(s): partial gastrectomy (ulcers), bowel resections, fecal transplant, bilateral knee arthroscopic surgery, EGD/ colonoscopies, R inguinal hernia repair Past Anesthesia/Blood Transfusion Reactions: Blood Transfusion Reaction, Motion Sickness Additional Past Anesthesia/Blood Transfusion Reaction / Comment(s): BLOOD TRANSFUSION- BROKE OUT IN HIVES age 21 Past Psychological History: Anxiety, Depression Smoking Status: Never smoker - Past Family History Father Family Medical History: Dementia Additional Family Medical History / Comment(s): Father at the age of 86yrs. Mother Family Medical History: Myocardial Infarction ([place]), Pulmonary Embolus Additional Family Medical History / Comment(s): AGE 73-[place], STROKE DURING CARATID PROCEDURE General Exam Limitations: no limitations General appearance: alert, in no apparent distress Head exam: Present: atraumatic, normocephalic Eye exam: Present: normal appearance. Absent: scleral icterus, conjunctival injection Respiratory exam: Present: normal lung sounds bilaterally. Absent: respiratory distress, wheezes, rales, rhonchi, stridor Cardiovascular Exam: Present: regular rate, normal rhythm, normal heart sounds. Absent: systolic murmur, diastolic murmur, rubs, gallop GI/Abdominal exam: Present: soft, tenderness. Absent: distended, guarding, rebound, rigid, mass, pulsatile mass, hernia Extremities exam: Present: normal inspection, normal capillary refill. Absent: pedal edema, calf tenderness Back exam: Present: normal inspection. Absent: CVA tenderness (R), CVA tenderness (L) Neurological exam: Present: alert Skin exam: Present: warm, dry, intact, normal color. Absent: rash Course Vital Signs 04/10/18 04/10/18 04/10/18 00:44 03:36 04:37 Temperature 97.7 F 97.9 F Pulse Rate 50 L 74 70 Respiratory 16 16 16 Rate Blood Pressure 210/102 185/96 174/85 O2 Sat by Pulse 98 98 98 Oximetry Medical Decision Making - Medical Decision Making Patient's 68-year-old man with history of inflammatory bowel disease. His symptoms have improved with treatment here. I did offer admission for further course of care, but the patient states that with the holiday he would like to try going home for tonight. He does seem stable for this, and we did discuss return parameters as well as appropriate follow-up. - Lab Data Result diagrams: 04/10/18 01:50 04/10/18 01:50 Lab Results 04/10/18 04/10/18 04/10/18 Range/Units 01:50 01:50 01:50 WBC 6.8 (3.8-10.6) k/uL RBC 3.53 L (4.30-5.90) m/uL Hgb 10.7 L (13.0-17.5) gm/dL Hct 34.8 L (39.0-53.0) % MCV 98.6 (80.0-100.0) fL MCH 30.2 (25.0-35.0) pg MCHC 30.7 L (31.0-37.0) g/dL RDW 14.0 (11.5-15.5) % Plt Count 153 (150-450) k/uL Neutrophils % 65 % Lymphocytes % 23 % Monocytes % 5 % Eosinophils % 4 % Basophils % 0 % Neutrophils # 4.4 (1.3-7.7) k/uL Lymphocytes # 1.6 (1.0-4.8) k/uL Monocytes # 0.3 (0-1.0) k/uL Eosinophils # 0.3 (0-0.7) k/uL Basophils # 0.0 (0-0.2) k/uL Hypochromasia Slight Sodium 140 (137-145) mmol/L Potassium 3.8 (3.5-5.1) mmol/L Chloride 116 H (98-107) mmol/L Carbon Dioxide 16 L (22-30) mmol/L Anion Gap 8 mmol/L BUN 18 (9-20) mg/dL Creatinine 1.15 (0.66-1.25) mg/dL Est GFR (CKD-EPI)AfAm 76 (>60 ml/min/1.73 sqM) Est GFR (CKD-EPI)NonAf 66 (>60 ml/min/1.73 sqM) Glucose 139 H (74-99) mg/dL Plasma Lactic Acid Kal 1.0 (0.7-2.0) mmol/L Calcium 9.1 (8.4-10.2) mg/dL Total Bilirubin 0.6 (0.2-1.3) mg/dL AST 37 (17-59) U/L ALT 38 (21-72) U/L Alkaline Phosphatase 46 (38-126) U/L Total Protein 6.9 (6.3-8.2) g/dL Albumin 3.6 (3.5-5.0) g/dL Amylase 136 H (30-110) U/L Lipase 55 (23-300) U/L Urine Color Urine Appearance (Clear) Urine pH (5.0-8.0) Ur Specific [place] (1.001-1.035) Urine Protein (Negative) Urine Glucose (UA) (Negative) Urine Ketones (Negative) Urine Blood (Negative) Urine Nitrite (Negative) Urine Bilirubin (Negative) Urine Urobilinogen (<2.0) mg/dL Ur Leukocyte Esterase (Negative) 04/10/18 Range/Units 03:29 WBC (3.8-10.6) k/uL RBC (4.30-5.90) m/uL Hgb (13.0-17.5) gm/dL Hct (39.0-53.0) % MCV (80.0-100.0) fL MCH (25.0-35.0) pg MCHC (31.0-37.0) g/dL RDW (11.5-15.5) % Plt Count (150-450) k/uL Neutrophils % % Lymphocytes % % Monocytes % % Eosinophils % % Basophils % % Neutrophils # (1.3-7.7) k/uL Lymphocytes # (1.0-4.8) k/uL Monocytes # (0-1.0) k/uL Eosinophils # (0-0.7) k/uL Basophils # (0-0.2) k/uL Hypochromasia Sodium (137-145) mmol/L Potassium (3.5-5.1) mmol/L Chloride (98-107) mmol/L Carbon Dioxide (22-30) mmol/L Anion Gap mmol/L BUN (9-20) mg/dL Creatinine (0.66-1.25) mg/dL Est GFR (CKD-EPI)AfAm (>60 ml/min/1.73 sqM) Est GFR (CKD-EPI)NonAf (>60 ml/min/1.73 sqM) Glucose (74-99) mg/dL Plasma Lactic Acid Kal (0.7-2.0) mmol/L Calcium (8.4-10.2) mg/dL Total Bilirubin (0.2-1.3) mg/dL AST (17-59) U/L ALT (21-72) U/L Alkaline Phosphatase (38-126) U/L Total Protein (6.3-8.2) g/dL Albumin (3.5-5.0) g/dL Amylase (30-110) U/L Lipase (23-300) U/L Urine Color Yellow Urine Appearance Clear (Clear) Urine pH 6.0 (5.0-8.0) Ur Specific [place] 1.016 (1.001-1.035) Urine Protein Trace H (Negative) Urine Glucose (UA) Negative (Negative) Urine Ketones Negative (Negative) Urine Blood Negative (Negative) Urine Nitrite Negative (Negative) Urine Bilirubin Negative (Negative) Urine Urobilinogen <2.0 (<2.0) mg/dL Ur Leukocyte Esterase Negative (Negative) Disposition Clinical Impression: Crohns disease Disposition: HOME SELF-CARE Condition: Fair Instructions: Crohn Disease (ED), Abdominal Pain (ED) Prescriptions: Ciprofloxacin HCl [Cipro] 500 mg PO Q12HR #14 tablet metroNIDAZOLE [Flagyl] 500 mg PO TID #21 tab Ondansetron Odt [Zofran ODT] 4 mg PO Q8HR PRN #10 tab PRN Reason: Nausea predniSONE 60 mg PO DAILY #30 tab Is patient prescribed a controlled substance at d/c from ED?: No Referrals: Minh Saldaña MD [Primary Care Provider] - 1-2 days
--- NOTE | 2018-04-10 03:08 | CT ---
EXAMINATION TYPE: CT abdomen pelvis wo con DATE OF EXAM: 04/10/2018 COMPARISON: 12/08/2017 HISTORY: Abdominal pain CT DLP: mGycm Automated exposure control for dose reduction was used. TECHNIQUE: Helical acquisition of images was performed from the lung bases through the pelvis. FINDINGS: Lung bases are clear of infiltrate. There is no pleural effusion. Heart size is normal. There is no p ericardial effusion. There are surgical clips at the gastroesophageal junction. Stomach has normal si ze. There are calcified splenic granulomata. There is no pancreatic mass. There are clips from cholec ystectomy. Liver shows no focal defect. The bile ducts are not dilated. There are multiple bilateral renal calcifications up to 6 mm. There is no hydronephrosis. There is 2 cm cyst posterior right kidne y. There is no retroperitoneal adenopathy. Ureters are not dilated. There are surgical clips at the c ecum. Bladder distends smoothly. There is no inguinal hernia. There is no free fluid in the pelvis. There is no evidence of bowel obstruction. There is no mesenter ic edema. The lumbar vertebra are intact. Bony pelvis is intact.. There is mild wall thickening of th e rectosigmoid colon. There is no pericolic edema. IMPRESSION: PREVIOUS SURGERY. NO SIGN OF ACUTE ABDOMEN AND PELVIS. NUMEROUS NONOBSTRUCTING BILATERAL RENAL CALCUL I. NO SIGNIFICANT CHANGE COMPARED TO OLD EXAM. There is stable mild rectosigmoid colon wall thickening consistent with nonspecific mild inflammation .
[2018-04-10 03:39] LABS: Appearance,Urine Clear (Clear); Bilirubin,Urine Negative (Negative); Blood,Urine Negative (Negative); Color,Urine Yellow; Glucose,Urine (UA) Negative (Negative); Ketones,Urine Negative (Negative); Leukocyte Esterase,Urine Negative (Negative); Nitrite,Urine Negative (Negative); Protein,Urine Trace (Negative); Specific Gravity,Urine 1.016 (1.001-1.035); Urobilinogen,Urine <2.0 mg/dL (<2.0)
[2018-04-10] MEDS ORDERED: LEVOFLOXACIN 750 MG TAB PO STA (03:49)
[2018-04-10] MEDS ORDERED: metroNIDAZOLE 500 MG TAB PO STA (03:50)
[2018-04-10] MEDS ORDERED: HYDROmorphone 1 MG/ML 1 ML SYRINGE IVP STA (03:52)
[2018-04-10 04:38] VITALS: BP 174/85; PULSE 70; TEMP 97.9
== END 2018-04-10 04:37 | disposition home or self-care (01) ==
LOC: EC 00:43
DX: K50.90 Crohn's disease, unspecified, without complications (principal); K21.9 Gastro-esophageal reflux disease without esophagitis; I10 Essential (primary) hypertension; Z79.899 Other long term (current) drug therapy; Z91.041 Radiographic dye allergy status; Z90.49 Acquired absence of other specified parts of digestive tract; Z95.5 Presence of coronary angioplasty implant and graft
CPT/HCPCS: 36415; 80053; 82150; 83605; 83690; 85025; 81003; 74018; 74176; 99284; 96374; 96375 ×2; 96361; J2270; J2405; J1170; J7512

== ENCOUNTER 2018-04-25 05:02 | Emergency (ER) | payer BC, MEDICARE ==
[2018-04-25 05:11] VITALS: BP 75/48; PULSE 102; RESP 18; TEMP 98.1
[2018-04-25 05:44] LABS: Basophils % (A) 0 %; Eosinophils # (A) 0.3 k/uL (0-0.7); Eosinophils % (A) 3 %; HCT 37.9 % (39.0-53.0); HGB 11.9 gm/dL (13.0-17.5); Lymphocytes # (A) 2.6 k/uL (1.0-4.8); Lymphocytes % (A) 29 %; MCH 29.6 pg (25.0-35.0); MCHC 31.4 g/dL (31.0-37.0); MCV 94.2 fL (80.0-100.0); Mean Platelet Volume 7.5; Monocytes # (A) 0.5 k/uL (0-1.0); Monocytes % (A) 5 %; Neutrophils # (A) 5.5 k/uL (1.3-7.7); Neutrophils % (A) 61 %; Platelet Count 172 k/uL (150-450); RBC 4.02 m/uL (4.30-5.90); RDW 14.1 % (11.5-15.5); WBC 8.9 k/uL (3.8-10.6)
[2018-04-25] MEDS ORDERED: SODIUM CHLORIDE 0.9% 500 ML 500 ML IV SCH (05:45)
[2018-04-25 05:56] LABS: Albumin 3.9 g/dL (3.5-5.0); Calcium 9.4 mg/dL (8.4-10.2); Potassium 4.3 mmol/L (3.5-5.1); Total Bilirubin 0.5 mg/dL (0.2-1.3); Total Protein 7.3 g/dL (6.3-8.2)
[2018-04-25 05:59] LABS: INR 0.8 (<1.2); Partial Thromboplastin Time 22.3 sec (22.0-30.0); Prothrombin Time 9.4 sec (9.0-12.0)
[2018-04-25] MEDS ORDERED: MORPHINE SULFATE 4 MG/ML SYRINGE IVP STA (06:52)
--- NOTE | 2018-04-25 06:52 | ED ---
Abdominal Pain HPI - General Chief Complaint: Abdominal Pain Stated Complaint: Abd Pain Time Seen by Provider: 04/25/18 05:31 Source: patient Mode of arrival: ambulatory Limitations: no limitations - History of Present Illness Initial Comments: Silvano is a 68-year-old male with a history of Crohn's who presents the emergency department today for right lower quadrant abdominal pain. Patient was seen and evaluated on [facility] at which time he chose to be discharged home on oral antibiotics for colitis. Patient reports that the pain is worsening now pain is in his right lower quadrant but occasionally radiates throughout his abdomen. This is similar to previous Crohn's exacerbations. - Related Data Home Medications Medication Instructions Recorded Confirmed RX: Orphenadrine Citrate 100 mg PO BID 12/08/17 04/25/18 RX: amLODIPine [Norvasc] 5 mg PO DAILY 12/08/17 04/25/18 Adalimumab [Humira Pen] 40 mg SQ Q14D 04/25/18 04/25/18 Buprenorphine HCl/Naloxone HCl 1 film SUBLINGUAL DAILY@1700 04/25/18 04/25/18 [Suboxone 2 mg-0.5 mg Sl Film] RX: Allopurinol [Zyloprim] 300 mg PO DAILY 04/25/18 04/25/18 Previous Rx's Medication Instructions Recorded Acetaminophen with Codeine 1 tab PO Q6H PRN 3 Days #12 tab 04/25/18 [Tylenol w/codeine #3] RX: predniSONE [Deltasone] 60 mg PO DAILY 5 Days #15 tablet 04/25/18 Allergies Allergy/AdvReac Type Severity Reaction Status Date / Time Iodinated Contrast- Oral and Allergy Anaphylaxis Verified 04/25/18 07:25 IV Dye [Iodinated Contrast Media - IV Dye] Review of Systems ROS Statement: Those systems with pertinent positive or pertinent negative responses have been documented in the HPI. ROS Other: All systems not noted in ROS Statement are negative. Past Medical History Past Medical History: GERD/Reflux, Hypertension, Renal Disease, Rheumatoid Arthritis (RA), Skin Disorder, Supraventricular Tachycardia (SVT) Additional Past Medical History / Comment(s): hx CROHN'S (takes tresa with last dose 12/07/17), IBS, chronic diarrhea, migraines-just a couple, hx SVT with ablation, hx ulcers, anemia, generalized gout, kidney stones pt passed on his own, psoriasis, bilateral tinnitis., History of Any Multi-Drug Resistant Organisms: None Reported Date of last positivie culture/infection: 11/29/2013 MDRO Source:: C-DIFF x 6 in Past Surgical History: Bowel Resection, Cardiac Ablation, Cholecystectomy, Heart Catheterization, Hernia Repair, Orthopedic Surgery, Tonsillectomy Additional Past Surgical History / Comment(s): partial gastrectomy (ulcers), bowel resections, fecal transplant, bilateral knee arthroscopic surgery, EGD/ colonoscopies, R inguinal hernia repair, bilat cataract removal. Past Anesthesia/Blood Transfusion Reactions: Blood Transfusion Reaction, Motion Sickness Additional Past Anesthesia/Blood Transfusion Reaction / Comment(s): BLOOD TRANSFUSION- BROKE OUT IN HIVES age 21 Past Psychological History: Anxiety, Depression Smoking Status: Never smoker Past Alcohol Use History: Occasional Past Drug Use History: None Reported - Past Family History Father Family Medical History: Dementia Additional Family Medical History / Comment(s): Father at the age of 86yrs. Mother Family Medical History: Myocardial Infarction ([place]), Pulmonary Embolus Additional Family Medical History / Comment(s): AGE 73-[place], STROKE DURING CARATID PROCEDURE General Exam Limitations: no limitations Course Vital Signs 04/25/18 05:07 Temperature 98.1 F Pulse Rate 102 H Respiratory 18 Rate Blood Pressure 75/48 O2 Sat by Pulse 97 Oximetry Medical Decision Making - Medical Decision Making The patient was seen and evaluated history was obtained from the patient and review of medical record Patient with Crohn's disease presenting with worsening right lower quadrant abdominal pain Labs and imaging were ordered Morphine ordered for pain Labs essentially unremarkable Patient was re-evaluated, pain improved after morphine CT imaging limited by patient's anaphylactic ALLERGY to IV and oral contrast however there is suggestion of some bowel wall thickening consistent with Crohn' s exacerbation. Patient reports he has responded well to oral steroids in the past. 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 All questions pertaining. Return parameters discussed patient discharged home in stable condition - Lab Data Result diagrams: 04/25/18 05:29 04/25/18 05:29 Lab Results 04/25/18 04/25/18 04/25/18 Range/Units 05:29 05:29 05:29 WBC 8.9 (3.8-10.6) k/uL RBC 4.02 L (4.30-5.90) m/uL Hgb 11.9 L (13.0-17.5) gm/dL Hct 37.9 L (39.0-53.0) % MCV 94.2 (80.0-100.0) fL MCH 29.6 (25.0-35.0) pg MCHC 31.4 (31.0-37.0) g/dL RDW 14.1 (11.5-15.5) % Plt Count 172 (150-450) k/uL Neutrophils % 61 % Lymphocytes % 29 % Monocytes % 5 % Eosinophils % 3 % Basophils % 0 % Neutrophils # 5.5 (1.3-7.7) k/uL Lymphocytes # 2.6 (1.0-4.8) k/uL Monocytes # 0.5 (0-1.0) k/uL Eosinophils # 0.3 (0-0.7) k/uL Basophils # 0.0 (0-0.2) k/uL PT (9.0-12.0) sec INR (<1.2) APTT (22.0-30.0) sec Sodium 140 (137-145) mmol/L Potassium 4.3 (3.5-5.1) mmol/L Chloride 111 H (98-107) mmol/L Carbon Dioxide 20 L (22-30) mmol/L Anion Gap 9 mmol/L BUN 20 (9-20) mg/dL Creatinine 1.19 (0.66-1.25) mg/dL Est GFR (CKD-EPI)AfAm 72 (>60 ml/min/1.73 sqM) Est GFR (CKD-EPI)NonAf 63 (>60 ml/min/1.73 sqM) Glucose 127 H (74-99) mg/dL Plasma Lactic Acid Kal 0.9 (0.7-2.0) mmol/L Calcium 9.4 (8.4-10.2) mg/dL Total Bilirubin 0.5 (0.2-1.3) mg/dL AST 37 (17-59) U/L ALT 47 (21-72) U/L Alkaline Phosphatase 47 (38-126) U/L Total Protein 7.3 (6.3-8.2) g/dL Albumin 3.9 (3.5-5.0) g/dL 04/25/18 Range/Units 05:29 WBC (3.8-10.6) k/uL RBC (4.30-5.90) m/uL Hgb (13.0-17.5) gm/dL Hct (39.0-53.0) % MCV (80.0-100.0) fL MCH (25.0-35.0) pg MCHC (31.0-37.0) g/dL RDW (11.5-15.5) % Plt Count (150-450) k/uL Neutrophils % % Lymphocytes % % Monocytes % % Eosinophils % % Basophils % % Neutrophils # (1.3-7.7) k/uL Lymphocytes # (1.0-4.8) k/uL Monocytes # (0-1.0) k/uL Eosinophils # (0-0.7) k/uL Basophils # (0-0.2) k/uL PT 9.4 (9.0-12.0) sec INR 0.8 (<1.2) APTT 22.3 (22.0-30.0) sec Sodium (137-145) mmol/L Potassium (3.5-5.1) mmol/L Chloride (98-107) mmol/L Carbon Dioxide (22-30) mmol/L Anion Gap mmol/L BUN (9-20) mg/dL Creatinine (0.66-1.25) mg/dL Est GFR (CKD-EPI)AfAm (>60 ml/min/1.73 sqM) Est GFR (CKD-EPI)NonAf (>60 ml/min/1.73 sqM) Glucose (74-99) mg/dL Plasma Lactic Acid Kal (0.7-2.0) mmol/L Calcium (8.4-10.2) mg/dL Total Bilirubin (0.2-1.3) mg/dL AST (17-59) U/L ALT (21-72) U/L Alkaline Phosphatase (38-126) U/L Total Protein (6.3-8.2) g/dL Albumin (3.5-5.0) g/dL Disposition Clinical Impression: Crohns disease Disposition: HOME SELF-CARE Condition: Stable Instructions: Crohn Disease (ED) Prescriptions: Acetaminophen with Codeine [Tylenol w/codeine #3] 1 tab PO Q6H PRN 3 Days #12 tab PRN Reason: Pain RX: predniSONE [Deltasone] 60 mg PO DAILY 5 Days #15 tablet Is patient prescribed a controlled substance at d/c from ED?: Yes If prescribed controlled substance>3 days was MAPS reviewed?: Prescribed <3 Days Referrals: Minh Saldaña MD [Primary Care Provider] - 1-2 days Laura Yancey MD [STAFF PHYSICIAN] - 1-2 days Time of Disposition: 08:01
--- NOTE | 2018-04-25 07:44 | CT ---
EXAM: CT Abdomen and Pelvis Without Intravenous Contrast CLINICAL HISTORY: Pain TECHNIQUE: Axial computed tomography images of the abdomen and pelvis without intravenous contrast. CTDI is 9.37 mGy and DLP is 564.3 mGy-cm. This CT exam was performed using one or more of the following dose reduction techniques: automated exposure control, adjustment of the mA and/or kV according to patient size, and/or use of iterative reconstruction technique. COMPARISON: 04/10/2018. FINDINGS: Lung bases: Mild dependent atelectasis involving both lower lobes. ABDOMEN: Liver: Hepatomegaly, measuring up to 19.2 cm in greatest craniocaudad dimension. Gallbladder and bile ducts: Status post cholecystectomy. No ductal dilation. Pancreas: Unremarkable. No ductal dilation. Spleen: Essentially unchanged splenomegaly, measuring up to 14.9 cm in greatest dimension, of unknown significance. Calcified granulomas are seen scattered throughout the spleen. Adrenals: Unremarkable. No mass. Kidneys and ureters: Innumerable nonobstructive renal stones are seen bilaterally. Stable right renal cysts, measuring up to 2.6 cm in greatest axial dimension in the interpolar region. Stomach and bowel: Evaluation of the bowel is limited without the use of oral and IV contrast. Within this limitation, mildly prominent mesenteric lymph nodes are seen with subtle ozzy mesentery, raising concern for infectious versus inflammatory enteritis in the correct clinical setting. Postoperative changes involving the cecum again noted. Postoperative changes are seen adjacent to the GE junction. PELVIS: Appendix: No findings to suggest acute appendicitis. Bladder: Unremarkable. No stones. Reproductive: Unremarkable as visualized. ABDOMEN and PELVIS: Intraperitoneal space: Unremarkable. No free air. No significant fluid collection. Bones/joints: No acute fracture. No dislocation. Soft tissues: Postoperative changes involving the anterior abdominal wall. Vasculature: Unremarkable. No abdominal aortic aneurysm. Lymph nodes: See above. IMPRESSION: 1. Evaluation of the bowel is limited without the use of oral and IV contrast. Within this limitation, mildly prominent mesenteric lymph nodes are seen with subtle ozzy mesentery, raising concern for infectious versus inflammatory enteritis in the correct clinical setting. 2. Bilateral nonobstructive nephrolithiasis. 3. Status post cholecystectomy. 4. Essentially unchanged splenomegaly, measuring up to 14.9 cm in greatest dimension, of unknown significance. 5. Hepatomegaly. 6. Other findings, as above.
== END 2018-04-25 08:24 | disposition home or self-care (01) ==
LOC: EC 05:02
DX: K50.90 Crohn's disease, unspecified, without complications (principal); M06.9 Rheumatoid arthritis, unspecified; I10 Essential (primary) hypertension; M10.9 Gout, unspecified; Z87.19 Personal history of other diseases of the digestive system; Z90.49 Acquired absence of other specified parts of digestive tract; Z98.890 Other specified postprocedural states; Z79.899 Other long term (current) drug therapy; Z91.041 Radiographic dye allergy status
CPT/HCPCS: 36415; 93005; 80053; 83605; 85025; 85610; 85730; 87040; 74176; 99284; 96374; 96361; J2270

== ENCOUNTER 2018-05-05 22:14 | Inpatient (IN) | payer BC, MEDICARE ==
[2018-05-05] MEDS ORDERED: ONDANSETRON 4 MG/2 ML VIAL IVP STA (22:58)
[2018-05-05] MEDS ORDERED: SODIUM CHLORIDE 0.9% 500 ML 500 ML IV STA (22:58)
[2018-05-05 23:49] LABS: Basophils % (A) 0 %; Eosinophils # (A) 0.1 k/uL (0-0.7); Eosinophils % (A) 1 %; HCT 37.4 % (39.0-53.0); HGB 11.6 gm/dL (13.0-17.5); Lymphocytes # (A) 1.7 k/uL (1.0-4.8); Lymphocytes % (A) 16 %; MCH 29.4 pg (25.0-35.0); MCHC 31.1 g/dL (31.0-37.0); MCV 94.6 fL (80.0-100.0); Mean Platelet Volume 5.9; Monocytes # (A) 0.5 k/uL (0-1.0); Monocytes % (A) 4 %; Neutrophils # (A) 8.3 k/uL (1.3-7.7); Neutrophils % (A) 78 %; Platelet Count 226 k/uL (150-450); RBC 3.96 m/uL (4.30-5.90); RDW 14.5 % (11.5-15.5); WBC 10.7 k/uL (3.8-10.6)
--- NOTE | 2018-05-05 23:56 | XR ---
EXAMINATION TYPE: XR KUB DATE OF EXAM: 05/05/2018 COMPARISON: 04/10/2018 HISTORY: Right flank pain TECHNIQUE: 2 views upright FINDINGS: There are clips from cholecystectomy. There is retained fecal material in large bowel. Ther e is no sign of free air. Lung bases are clear. There are some small calcifications over the upper po le left kidney. There is 5 calcification over the right kidney. IMPRESSION: Constipation. Possible small left and right renal calculi. No significant change compared to old exam.
[2018-05-05] MEDS ORDERED: HYDROmorphone 1 MG/ML 1 ML SYRINGE IVP STA (23:59)
[2018-05-06] LABS: ALT 42 U/L (21-72); AST 27 U/L (17-59); Albumin 3.6 g/dL (3.5-5.0); Alkaline Phosphatase 42 U/L (38-126); Amylase 107 U/L (30-110); Anion Gap 8 mmol/L; Blood Urea Nitrogen 25 mg/dL (9-20); Calcium 9.3 mg/dL (8.4-10.2); Carbon Dioxide 18 mmol/L (22-30); Chloride 111 mmol/L (98-107); Glucose 135 mg/dL (74-99); Lipase 34 U/L (23-300); Potassium 4.2 mmol/L (3.5-5.1); Sodium 137 mmol/L (137-145); Total Bilirubin 0.5 mg/dL (0.2-1.3); Total Protein 6.7 g/dL (6.3-8.2)
[2018-05-06 00:01] LABS: C Reactive Protein <5.0 mg/L (<10.0)
[2018-05-06] MEDS ORDERED: MORPHINE SULFATE 4 MG/ML SYRINGE IV STA (03:01)
[2018-05-06] MEDS ORDERED: ONDANSETRON 4 MG/2 ML VIAL IVP PRN (04:44)
[2018-05-06] MEDS ORDERED: NALOXONE 0.4 MG/ML 1 ML VIAL IV PRN (04:44)
[2018-05-06] MEDS: SODIUM CHLORIDE 0.9% 1,000 ML IV SCH ×2 (06:30→19:28)
[2018-05-06] MEDS: MORPHINE SULFATE 4 MG/ML SYRINGE IV PRN ×2 (06:30→10:36)
[2018-05-06 08:11] VITALS: BMI 24.3
[2018-05-06] MEDS: ACETAMINOPHEN TAB 325 MG TAB PO PRN (08:20)
[2018-05-06] MEDS ORDERED: FAMOTIDINE 20 MG TAB PO SCH (09:00)
[2018-05-06] MEDS ORDERED: cloNIDine HCL 0.1 MG TAB PO PRN (10:52)
[2018-05-06] MEDS: amLODIPine 5 MG TAB PO SCH (11:08)
--- NOTE | 2018-05-06 11:12 | P.GSCN ---
History of Present Illness Consult date: 05/06/18 Reason for Consult: Abdominal pain History of present illness: Patient known to our service. Patient with a history of Crohn's disease. He has had multiple surgeries. Patient takes Humira for his chronic Crohn's inflammation. Most recent bowel resection 2013 at [facility]. Patient will last 3-4 weeks has had ongoing complaints of abdominal bloating, nausea, intermittent vomiting, and right-sided pain. Pain seems worse than last visit to the ER. He had a CAT scan performed on 04/10 and again on 04/25. These films were reviewed. Patient has subtle inflammatory change of the mesentery. Today an x-ray was obtained in the ER which showed constipation and what I suspect is a distended stomach. Apparently he saw Dr. Buchanan as an outpatient recently. She ordered an MR enterography for 06/01. Patient states he is having decreased bowel function. Does have a history of C. diff in the past. [facility] 10.7. Review of Systems The patient denies any acute changes in vision or hearing, no dysphagia or odynophagia, no chest pain or shortness of breath, no dysuria or hematuria, no headache, no runny nose, no rectal bleeding or melena, no unexplained weight loss Past Medical History Past Medical History: GERD/Reflux, Hypertension, Renal Disease, Rheumatoid Arthritis (RA), Skin Disorder, Supraventricular Tachycardia (SVT) Additional Past Medical History / Comment(s): hx CROHN'S (takes tresa with last dose 12/07/17), IBS, chronic diarrhea, migraines-just a couple, hx SVT with ablation, hx ulcers, anemia, generalized gout, kidney stones pt passed on his own, psoriasis, bilateral tinnitis., History of Any Multi-Drug Resistant Organisms: None Reported Year Discovered:: 11/29/2013 MDRO Source:: C-DIFF x 6 in Past Surgical History: Bowel Resection, Cardiac Ablation, Cholecystectomy, Heart Catheterization, Hernia Repair, Orthopedic Surgery, Tonsillectomy Additional Past Surgical History / Comment(s): partial gastrectomy (ulcers), bowel resections, fecal transplant, bilateral knee arthroscopic surgery, EGD/ colonoscopies, R inguinal hernia repair, bilat cataract removal. Past Anesthesia/Blood Transfusion Reactions: Blood Transfusion Reaction, Motion Sickness Additional Past Anesthesia/Blood Transfusion Reaction / Comm: BLOOD TRANSFUSION - BROKE OUT IN [facility] age 21 Past Psychological History: Anxiety, Depression Additional Psychological History / Comment(s): Retired due to his health. Pt resides with his spouse. He has hx of opiate dependency and is on suboxone. He is independent. Smoking Status: Never smoker Past Alcohol Use History: Occasional Past Drug Use History: None Reported Additional Drug Use History / Comment(s): Hx of opiate dependency-on suboxone. - Past Family History Father Family Medical History: Dementia Additional Family Medical History / Comment(s): Father at the age of 86yrs. Mother Family Medical History: Myocardial Infarction ([place]), Pulmonary Embolus Additional Family Medical History / Comment(s): AGE 73-[place], STROKE DURING CARATID PROCEDURE Medications and Allergies Home Medications Medication Instructions Recorded Confirmed Type Orphenadrine Citrate 100 mg PO BID 12/08/17 05/05/18 History amLODIPine [Norvasc] 5 mg PO DAILY 12/08/17 05/05/18 History Adalimumab [Humira Pen] 40 mg SQ Q14D 04/25/18 05/05/18 History Allopurinol [Zyloprim] 300 mg PO DAILY 04/25/18 05/05/18 History Buprenorphine HCl/Naloxone HCl 1 film SUBLINGUAL DAILY@1700 04/25/18 05/05/18 History [Suboxone 2 mg-0.5 mg Sl Film] Aspirin 325 mg PO DAILY 05/05/18 05/05/18 History Febuxostat [Uloric] 80 mg PO DAILY 05/05/18 05/05/18 History Omeprazole 20 mg PO BID 05/05/18 05/05/18 History Allergies Allergy/AdvReac Type Severity Reaction Status Date / Time Iodinated Contrast- Oral and Allergy Anaphylaxis Verified 05/05/18 23:09 IV Dye [Iodinated Contrast Media - IV Dye] Surgical - Exam Vital Signs Temp Pulse Resp BP Pulse Ox 98.4 F 117 H 20 205/100 96 05/05/18 22:39 05/05/18 22:39 05/05/18 22:39 05/05/18 22:39 05/05/18 22:39 Physical exam: General: Well-developed, well-nourished HEENT: Normocephalic, sclerae nonicteric Abdomen: Tenderness mild right midabdomen, mild to moderate distention, some tympany Extremities: No edema Neuro: Alert and oriented Results - Labs 05/05/18 23:37 05/05/18 23:37 Abnormal Lab Results - Last 24 Hours (Table) 05/05/18 05/05/18 Range/Units 23:37 23:37 WBC 10.7 H (3.8-10.6) k/uL RBC 3.96 L (4.30-5.90) m/uL Hgb 11.6 L (13.0-17.5) gm/dL Hct 37.4 L (39.0-53.0) % Neutrophils # 8.3 H (1.3-7.7) k/uL Chloride 111 H (98-107) mmol/L Carbon Dioxide 18 L (22-30) mmol/L BUN 25 H (9-20) mg/dL Glucose 135 H (74-99) mg/dL Diabetes panel 05/05/18 Range/Units 23:37 Sodium 137 (137-145) mmol/L Potassium 4.2 (3.5-5.1) mmol/L Chloride 111 H (98-107) mmol/L Carbon Dioxide 18 L (22-30) mmol/L BUN 25 H (9-20) mg/dL Creatinine 1.21 (0.66-1.25) mg/dL Glucose 135 H (74-99) mg/dL Calcium 9.3 (8.4-10.2) mg/dL AST 27 (17-59) U/L ALT 42 (21-72) U/L Alkaline Phosphatase 42 (38-126) U/L Total Protein 6.7 (6.3-8.2) g/dL Albumin 3.6 (3.5-5.0) g/dL Calcium panel 05/05/18 Range/Units 23:37 Calcium 9.3 (8.4-10.2) mg/dL Albumin 3.6 (3.5-5.0) g/dL Pituitary panel 05/05/18 Range/Units 23:37 Sodium 137 (137-145) mmol/L Potassium 4.2 (3.5-5.1) mmol/L Chloride 111 H (98-107) mmol/L Carbon Dioxide 18 L (22-30) mmol/L BUN 25 H (9-20) mg/dL Creatinine 1.21 (0.66-1.25) mg/dL Glucose 135 H (74-99) mg/dL Calcium 9.3 (8.4-10.2) mg/dL Adrenal panel 05/05/18 Range/Units 23:37 Sodium 137 (137-145) mmol/L Potassium 4.2 (3.5-5.1) mmol/L Chloride 111 H (98-107) mmol/L Carbon Dioxide 18 L (22-30) mmol/L BUN 25 H (9-20) mg/dL Creatinine 1.21 (0.66-1.25) mg/dL Glucose 135 H (74-99) mg/dL Calcium 9.3 (8.4-10.2) mg/dL Total Bilirubin 0.5 (0.2-1.3) mg/dL AST 27 (17-59) U/L ALT 42 (21-72) U/L Alkaline Phosphatase 42 (38-126) U/L Total Protein 6.7 (6.3-8.2) g/dL Albumin 3.6 (3.5-5.0) g/dL Assessment and Plan (1) Abdominal pain Narrative/Plan: Patient's plain films suggest constipation however given the patient's history of Crohn's would be concerned about the possibility of small bowel obstruction possibly on the basis of adhesions or stricture formation. Even though the patient is had 2 CAT scans within the last 1 month that is probably the only modality available to us at this time it would be helpful in better identifying the source of his symptoms. We'll order CT abdomen and pelvis with oral contrast at this time. If vomiting develops consider nasogastric tube placement. We'll follow with you. Current Visit: Yes Status: Acute Code(s): R10.9 - UNSPECIFIED ABDOMINAL PAIN SNOMED Code(s): 25147462
[2018-05-06] MEDS: PANTOPRAZOLE 40 MG/10 ML VIAL IVP SCH ×2 (11:13→19:29)
--- NOTE | 2018-05-06 11:31 | CONS ---
CONSULTATION DATE OF DICTATION: 05/06/2018 REASON FOR CONSULTATION: Abdominal pain and abdominal distention. HISTORY OF PRESENT ILLNESS: The patient is a 68-year-old pleasant white male with history of Crohn's disease who is known to me from his office visits. He was last seen in the office 2 days ago. He has history of Crohn's disease involving the small bowel, diagnosed 15 years ago. He underwent terminal ileal resection several years ago and he had another surgery in 2014 at [facility] for stricture of the anastomosis. Since then he has been maintained on Humira every 2 weeks and has remained in clinical remission. For the last 2 months he has been complaining of severe right-sided abdominal pain associated with abdominal bloating, occasional nausea, vomiting and worsening diarrhea. He has bowel movements anywhere from 10-12 a day which are loose to watery in consistency. He had been to the emergency room twice in the last 2 months for similar symptoms. He did have a CT of the abdomen and pelvis performed on April 10 as well as on April 25 for similar symptoms which revealed prominent mesenteric lymph nodes, bilateral nonobstructive nephrolithiasis, mild hepatomegaly, but otherwise unremarkable. There was no evidence of recurrent Crohn's disease or bowel obstruction. Yesterday the pain continued to progressively get worse, mostly in the right side, worsening abdominal distention. He had 2 episodes of emesis. He had several bowel movements yesterday morning, but he did not have any further bowel movements from 9 p.m. yesterday. Today he feels more distended and continues to have persistent abdominal pain. He came to the emergency room and had abdominal x-ray done that showed fecal stasis but no evidence of bowel obstruction. He denies any fever, chills or night sweats. PAST MEDICAL HISTORY: Significant for: 1. Crohn's disease involving the small bowel, status post small bowel resection x2, the last one 3 years ago. As mentioned above, currently maintained on Humira 40 mg daily. 2. History of IBS. 3. Rheumatoid arthritis. 4. Hypertension. 5. GERD. 6. Hyperlipidemia. PAST SURGICAL HISTORY: 1. Cholecystectomy. 2. Cardiac catheterization. 3. Small bowel resection x2. 4. Last EGD/colonoscopy was in October of 2017. It was unremarkable. 5. Repair of inguinal hernia. 6. Bilateral cataract removal. MEDICATIONS: Medications at home include: 1. Humira. 2. Norvasc. 3. Zyloprim. 4. Tylenol with codeine. ALLERGIES: IV DYE. SOCIAL HISTORY: No smoking. No alcohol use. FAMILY HISTORY: Father at age 86 of dementia. Mother had PE and CVA. REVIEW OF SYSTEMS: CARDIOPULMONARY: No chest pain, shortness of breath. GENITOURINARY: No dysuria, hematuria. MUSCULOSKELETAL: Unremarkable. SKIN: Unremarkable. ENDOCRINE: Unremarkable. PSYCHIATRY: Unremarkable. NEUROLOGY: Unremarkable. ENT/VISION: Unremarkable. CONSTITUTIONAL: No recent weight loss. No fever, chills, night sweats. PHYSICAL EXAMINATION: Vital signs are stable. Blood pressure is 154/101, temperature 97.4, pulse rate 68. HEENT EXAMINATION: Unremarkable. Conjunctivae pink. Sclerae anicteric. Oral cavity no lesions. NECK: No JVD or lymph node enlargement. Chest was clear to auscultation. HEART: Regular rate and rhythm. ABDOMEN: Soft. Bowel sounds are positive. It was slightly distended but it was nontender. EXTREMITIES: No pedal edema. SKIN: No rashes. NEUROLOGIC: Alert and oriented x3. No focal deficits. LABS: Labs from yesterday showed WBC 10.7, hemoglobin 11.6, platelets normal. Basic metabolic panel is within normal limits. We reviewed a CT of the abdomen from April 25 that showed nonobstructive bilateral nephrolithiasis but otherwise unremarkable. IMPRESSION: 1. Right-sided abdominal pain of 2 months' duration associated with abdominal distention, intermittent nausea, vomiting and diarrhea. CT scan of the abdomen April 10 as well as April 25 unremarkable. Clinically no evidence of bowel obstruction. 2. History of Crohn's disease involving the small bowel, status post 2 surgeries in the last several years, last one 3 years ago for stricture and Crohn's disease. At present maintained on Humira 40 mg every 2 weeks. Last EGD/colonoscopy in October of 2017 showed small gastric ulcer but no evidence of recurrent Crohn's disease at the anastomosis. 3. History of irritable bowel syndrome. 4. Rheumatoid arthritis. RECOMMENDATIONS: 1. During the ongoing abdominal pain and abdominal distention, we will obtain surgical consultation with Dr. Patten. 2. Keep him n.p.o. for now until evaluated by Surgery. 3. Patient was empirically started on Bentyl 10 mg 4 times daily on an outpatient basis 2 days ago. He took 2 of them yesterday and had worsening symptoms; hence we will discontinue the medication. 4. Will follow him closely during his hospital stay. Thank you for this consultation. RON / BERTRAM: [id number] /
[2018-05-06 11:36] LABS: Appearance,Urine Clear (Clear); Bilirubin,Urine Negative (Negative); Blood,Urine Negative (Negative); Color,Urine Light Yellow; Glucose,Urine (UA) Negative (Negative); Ketones,Urine Negative (Negative); Leukocyte Esterase,Urine Negative (Negative); Nitrite,Urine Negative (Negative); PH, Urine 5.5 (5.0-8.0); Protein,Urine Negative (Negative); Specific Gravity,Urine 1.015 (1.001-1.035); Urobilinogen,Urine <2.0 mg/dL (<2.0)
[2018-05-06] MEDS: BARIUM SULFATE 450 ML ORAL.SUSP BOTTLE PO PRN ×2 (11:44→14:40)
[2018-05-06] MEDS: hydrALAZINE HCL 20 MG/ML 1 ML VIAL IVP PRN ×2 (11:53→15:52)
[2018-05-06] MEDS: HYDROmorphone 0.5 MG/0.5 ML SYRINGE IVP PRN ×2 (14:26→19:31)
[2018-05-06] MEDS ORDERED: LORazepam 2 MG/ML INJ IV PRN (14:40)
[2018-05-06] MEDS: cloNIDine HCL 0.1 MG TAB PO SCH ×2 (15:52→21:58)
--- NOTE | 2018-05-06 16:06 | HP ---
HISTORY AND PHYSICAL I am covering for Dr. Saldaña. DATE OF SERVICE: 05/06/2018 CHIEF COMPLAINT: Abdominal pain. HISTORY OF PRESENT ILLNESS: This 68-year-old gentleman has a past medical history of hypertension, history of renal disease, history of rheumatoid arthritis, skin disorder, supraventricular tachycardia, history of Crohn's disease and also gout. The patient has had abdominal pain for the last 2 months situated in the right mid quadrant. The patient apparently had a couple of CT scans previously, multiple evaluations as an outpatient and was in the ER also. The patient is taking steroids. Because of lack of improvement, the patient came to [facility] and was admitted for further evaluation. Gastroenterology and surgical evaluations are in progress. Blood pressure is elevated. There is no history of any fever, rigor or chills, headache, loss of consciousness, seizures. PAST MEDICAL HISTORY: 1. GERD. 2. Hypertension. 3. History of renal disease. 4. Rheumatoid arthritis. 5. Supraventricular tachycardia. 6. History of Crohn's disease. 7. Bowel resection. HOME MEDICATIONS: 1. Omeprazole 20 mg p.o. b.i.d. 2. Aspirin 320 mg p.o. daily. 3. Orphenadrine 100 mg p.o. b.i.d. 4. Uloric 80 mg p.o. daily. 5. Norvasc 5 mg p.o. daily. 6. Suboxone 1 film daily. 7. Zyloprim 300 mg p.o. daily. 8. Humira Pen 40 mg subcutaneously q.14 days. ALLERGIES: IODINATED CONTRAST DYES. FAMILY HISTORY: History of dementia in the family. SOCIAL HISTORY: No history of smoking. No history of alcohol intake. REVIEW OF SYSTEMS: ENT: No diminished hearing. No diminished vision. CARDIOVASCULAR SYSTEM: No angina, palpitations. RESPIRATORY SYSTEM: No cough, hemoptysis. GI: As mentioned earlier. : As mentioned earlier. NERVOUS SYSTEM: No numbness, weakness. ALLERGY/IMMUNOLOGY: No asthma, hayfever. MUSCULOSKELETAL: As mentioned earlier. HEMATOLOGY/ONCOLOGY: No history of anemia. ENDOCRINE: No history of diabetes, hypothyroidism. CONSTITUTIONAL: As mentioned earlier. DERMATOLOGY: Negative. RHEUMATOLOGY: Negative. PSYCHIATRY: As mentioned earlier. PHYSICAL EXAMINATION: Patient is alert, oriented x3. Pulse 63, blood pressure 196/81, respiration 17, temperature 97.4, pulse ox 94% on room air. HEENT: Conjunctivae normal. Oral mucosa moist. NECK: No jugular venous distention. No carotid bruit. No lymph node enlargement. CARDIOVASCULAR SYSTEM: S1, S2 muffled. RESPIRATORY SYSTEM: Breath sounds diminished at the bases. A few scattered rhonchi and crackles. ABDOMEN: Soft. Mild diffuse distention. Mild diffuse tenderness. No guarding. No rigidity. No mass palpable. Bowel sounds present. No ascites. LEGS: No edema. No swelling. NERVOUS SYSTEM: Higher functions as mentioned earlier. Moves all 4 limbs. No focal motor or sensory deficit. LYMPHATICS: No lymph node palpable in neck, axillae or groin. SKIN: No ulcer, rash, bleeding. LABS: WBC 10.7, hemoglobin 11.6, sodium 137, potassium 4.2. ASSESSMENT: 1. Abdominal pain for evaluation. Rule out bowel obstruction. 2. Crohn's disease. Rule out acute exacerbation. 3. History of gastroesophageal reflux disease. 4. Hypertension. 5. Rheumatoid arthritis. 6. History of supraventricular tachycardia with ablation. 7. History of irritable bowel syndrome. 8. History of chronic diarrhea. 9. History of peptic ulcer. 10.History of gout. 11.History of nephrolithiasis. 12.History of bowel resection. 13.History of cardiac ablation. 14.History of partial gastrectomy for ulcers. 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 16.History of anxiety, depression. 17.History of opiate dependency, on Suboxone. RECOMMENDATIONS AND DISCUSSION: In this 68-year-old gentleman who presented with multiple complex medical issues, we will monitor the patient closely, continue the current management, continue with symptomatic treatment. We will obtain a CT scan of the abdomen and pelvis and initiate gastroenterology as well as surgical consultations. Pain medication for now for symptomatic treatment. DVT prophylaxis. Resume the home medications. For the blood pressure, p.r.n. medications may be used. Norvasc also has been added to the current regimen. The prognosis is extremely guarded because of multiple complex medical issues. Further recommendations to follow. A copy of this dictation is being forwarded to Dr. Saldaña, who is the primary physician. MMODL / IJN: [id number] /
--- NOTE | 2018-05-06 16:23 | CT ---
EXAMINATION TYPE: CT abdomen pelvis wo con DATE OF EXAM: 05/06/2018 HISTORY: Abdominal pain. Nausea/vomiting history of Crohn's disease CT DLP: 509.2 mGycm. Automated Exposure Control for Dose Reduction was Utilized. TECHNIQUE: CT scan of the abdomen and pelvis is performed without IV contrast. Oral contrast was ad ministered. COMPARISON: CT abdomen pelvis 05/05/2018 FINDINGS: Within the limitations of a non-contrast study, the following observations are made. LUNG BASES: No significant abnormality is appreciated. LIVER/GB: The gallbladder is surgically absent. The liver is unremarkable with an unenhanced study. PANCREAS: No significant abnormality is seen. SPLEEN: Calcified granulomas are seen scattered throughout the spleen. Small splenule is evident. ADRENALS: No significant abnormality is seen. KIDNEYS: Fluid density right mid pole cyst is evident. Numerous bilateral nonobstructing renal calcul i are seen. No evidence of hydronephrosis. BOWEL: No evidence of bowel wall thickening, or bowel dilation. No evidence of pneumoperitoneum. No o bvious evidence of fistulization. Multiple sites of postsurgical changes are seen throughout the rubi l as well as the gastroesophageal junction. GENITAL ORGANS: No gross abnormality seen. LYMPH NODES: Numerous prominent mesenteric lymph nodes are seen throughout the mesentery. OSSEOUS STRUCTURES: No significant abnormality is seen. OTHER: No significant additional abnormality is seen. IMPRESSION: 1. No acute intra-abdominal or pelvic process. 2. Stable multiple prominent mesenteric lymph nodes, likely relating to inflammatory process and cons istent with reported history of Crohn's disease. 3. Numerous bilateral nonobstructing renal calculi. 4. Postsurgical changes.
[2018-05-06 16:27] LABS: Amphetamine Screen,Urine Not Detected (NotDetected); Barbiturate Screen,Urine Not Detected (NotDetected); Benzodiazepines Screen,Urine Not Detected (NotDetected); Cocaine Screen,Urine Not Detected (NotDetected); Methadone Screen, Urine Not Detected (NotDetected); Opiate Screen,Urine Detected (NotDetected); Oxycodone Screen, Urine Not Detected (NotDetected); Phencyclidine Screen,Urine Not Detected (NotDetected); Tricyclic Antidepressant,Urine Not Detected (NotDetected); Urn Cannabinoid Scrn Not Detected (NotDetected)
[2018-05-06] MEDS: NALOXONE SUBLINGUAL SCH (16:54)
[2018-05-06] MEDS: BUPRENORPHINE SUBLINGUAL SCH (16:54)
[2018-05-06] MEDS: HEPARIN SODIUM,PORCINE 5,000 UNIT/ML 1 ML VIAL SQ SCH (19:29)
[2018-05-07] MEDS: HYDROmorphone 0.5 MG/0.5 ML SYRINGE IVP PRN ×6 (01:02→23:58)
[2018-05-07] MEDS: SODIUM CHLORIDE 0.9% 1,000 ML IV SCH (06:13)
[2018-05-07] MEDS: ALLOPURINOL 300 MG TAB PO SCH (07:54)
[2018-05-07] MEDS: HEPARIN SODIUM,PORCINE 5,000 UNIT/ML 1 ML VIAL SQ SCH ×2 (07:55→21:16)
[2018-05-07] MEDS: cloNIDine HCL 0.1 MG TAB PO SCH ×3 (07:55→21:16)
[2018-05-07] MEDS: PANTOPRAZOLE 40 MG/10 ML VIAL IVP SCH ×2 (07:55→21:17)
[2018-05-07] MEDS: amLODIPine 5 MG TAB PO SCH (07:55)
[2018-05-07] MEDS ORDERED: DICYCLOMINE 10 MG CAP PO PRN (08:59)
--- NOTE | 2018-05-07 10:02 | PN ---
PROGRESS NOTE DATE OF SERVICE: May 07, 2018. REQUESTING PHYSICIAN: Dr. Saldaña The patient is a 68-year-old pleasant white male admitted to hospital with severe right- sided abdominal pain associated with abdominal bloating, abdominal distention, nausea, vomiting for the last 2 months duration. He had a CT of the abdomen and pelvis done yesterday ordered by Dr. Patten, which revealed no evidence of bowel obstruction. This morning, he is feeling better. He started having severe diarrhea after he had drank the contrast for the CAT scan. He had about 15 loose watery bowel movements yesterday. He denies any blood in the stool. Nausea, vomiting has resolved. This morning, abdominal pain has improved. Reports no fever, chills, or night sweats. PHYSICAL EXAMINATION: Appears comfortable in no apparent distress. VITAL SIGNS: Stable. Blood pressure 139/91, pulse rate 78, temperature 97.8. HEENT examination unremarkable. Conjunctivae pink. Sclerae anicteric. Oral cavity no lesions. Neck: No JVD or lymph node enlargement. Chest was clear to auscultation. HEART: Regular rate and rhythm. ABDOMEN: Soft, it was slightly distended. Bowel sounds are positive. No organomegaly. Extremities: No pedal edema. Skin no rashes. NEUROLOGIC: Alert and oriented x3. No focal deficits. LABS: From today are still pending at the time of this dictation. CT of the abdomen and pelvis showed evidence of bilateral nephrolithiasis. No evidence of bowel obstruction. IMPRESSION: 1. This is a patient with history of Crohn's disease diagnosed several years ago, status post 2 small bowel resections in the past. Presently maintained on Humira 40 mg every 2 weeks, presented to the hospital with abdominal pain, abdominal distention, nausea, vomiting, and diarrhea. CT of the abdomen done yesterday did not show any evidence of bowel obstruction. 2. History of irritable bowel syndrome. 3. Severe diarrhea. C diff toxin was negative. RECOMMENDATIONS: 1. Advance diet as tolerated. 2. We will start him back on the Bentyl 10 mg 3 times daily. 3. Patient will be scheduled for an MR enterography on outpatient basis to evaluate for small bowel Crohn disease. 4. We will follow him closely during his hospital stay. Thank you for this consultation. MMODL / IJN: [id number] /
--- NOTE | 2018-05-07 11:36 | P.PN ---
Subjective Progress Note Date: 05/07/18 Principal diagnosis: Abdominal pain Patient says his pain is improved after the CAT scan yesterday. He says he moved his bowels several time after the CAT scan. Despite having diarrhea the patient's x-rays on arrival and CAT scan even yesterday shows greater than normal stool burden particularly on the right side of the colon. No obstruction was seen on his CAT scan. Tolerating clear liquids. Objective - Vital Signs Vital signs: Vital Signs Temp 97.6 F 05/06/18 23:59 Pulse 78 05/07/18 07:00 Resp 17 05/07/18 08:00 BP 161/78 05/07/18 07:00 Pulse Ox 97 05/07/18 07:00 Intake & Output 05/06/18 05/07/18 05/07/18 18:59 06:59 18:59 Intake Total 900 Balance 900 Intake: Intake, IV Titration 900 Amount Sodium Chloride 0.9% 1, 900 000 ml @ 75 mls/hr IV . [id number] Rx#:[id number] Other: Voiding Method Toilet Toilet # Voids 2 1 - Exam Abdomen: Soft, less distended, mild right-sided tenderness - Labs CBC & Chem 7: 05/05/18 23:37 05/05/18 23:37 Labs: Abnormal Lab Results - Last 24 Hours (Table) 05/06/18 Range/Units 16:00 Urine Opiates Screen Detected H (NotDetected) Assessment and Plan (1) Abdominal pain Narrative/Plan: Increase diet. Looking back at the previous CAT scans the course of the proximal small bowel is somewhat atypical. Unclear whether this is related to previous surgeries. This does not appear to be a new finding. This will be better evaluated at the time of his MR enterography. Symptoms that he is having seems to be exacerbated by right-sided stool burden despite having multiple stools daily. No surgical intervention planned at this time. Current Visit: Yes Status: Acute Code(s): R10.9 - UNSPECIFIED ABDOMINAL PAIN SNOMED Code(s): 01157307
[2018-05-07] MEDS: methylPREDNISolone SOD SUCCI 125 MG/2 ML VIAL IV SCH (17:12)
[2018-05-07] MEDS: NALOXONE SUBLINGUAL SCH (17:15)
[2018-05-07] MEDS: BUPRENORPHINE SUBLINGUAL SCH (17:15)
--- NOTE | 2018-05-07 19:20 | PN ---
PROGRESS NOTE DATE OF SERVICE: 05/07/2018 This 68-year-old gentleman who was admitted with abdominal pain, is being closely monitored. The CT scan did not show any bowel obstruction. Surgery and Gastroenterology following the patient. No chest pain. No palpitations. No fever. EXAM: Alert and oriented times three. Pulse 78, blood pressure 161/70, respiration 17, temp 97.2, pulse ox 97% on room air. HEENT: Conjunctivae normal. NECK: No jugular venous distention. CARDIOVASCULAR: S1, S2. Respirations: Breath sounds diminished in the bases. Abdomen: Soft. Mild diffuse distention. Mild diffuse tenderness. Legs are no edema, no swelling. CENTRAL NERVOUS SYSTEM: No focal deficits. LAB STUDIES: WBC 10.2, hemoglobin 11.60. Sodium 137. ASSESSMENT: 1. Abdominal pain, possible Crohn disease, Crohn disease, possibly secondary to chronic Crohn disease. No evidence of acute exacerbation. 2. History of gastroesophageal reflux disease. 3. Hypertension. 4. Rheumatoid arthritis. 5. History of supraventricular tachycardia with ablation. 6. History of . 7. History of chronic diarrhea. 8. History of peptic ulcer. 9. History of gout. 10. . 11.Nephrolithiasis. 12.Previous history of bowel resection. 13.History of cardiac ablation. 14.History of partial gastrectomy. 15. transplant, multiple episodes of C difficile colitis. 16.Anxiety, depression. 17.History of opiate dependence. 18. dependency on Suboxone. RECOMMENDATIONS AND DISCUSSION: Recommend to continue current medications, management and symptomatic treatment. Otherwise at this time. Continue current medications, IV steroids and empirically initiate. Further recommendations to follow. MMODL / IJN: [id number] /
[2018-05-07 20:55] LABS: Glucose,Whole Blood 170 mg/dL (75-99)
[2018-05-07] MEDS: INSULIN ASPART 100 UNIT/ML 1 ML 10 ML VIAL SQ SCH (21:17)
[2018-05-08] MEDS: methylPREDNISolone SOD SUCCI 125 MG/2 ML VIAL IV SCH ×5 (01:08→22:57)
[2018-05-08] MEDS: HYDROmorphone 0.5 MG/0.5 ML SYRINGE IVP PRN ×5 (05:39→21:35)
[2018-05-08 07:06] LABS: Glucose,Whole Blood 179 mg/dL (75-99)
[2018-05-08] MEDS: SODIUM CHLORIDE 0.9% 1,000 ML IV SCH ×2 (07:15→08:37)
[2018-05-08] MEDS: INSULIN ASPART 100 UNIT/ML 1 ML 10 ML VIAL SQ SCH ×4 (07:27→20:15)
--- NOTE | 2018-05-08 07:48 | P.PN ---
Subjective Progress Note Date: 05/08/18 Principal diagnosis: Chronic abdominal pain This is a continue present on a 68-year-old white male essentially with history of Crohn's colitis who has been complaining of worsening but intermittent abdominal pain for the last month or so. He is now admitted because of intractable pain. The patient has a history of opiate dependence and has been on Suboxone in the past. Objective - Vital Signs Vital signs: Vital Signs Temp 97.8 F 05/07/18 19:21 Pulse 69 05/07/18 19:21 Resp 13 05/07/18 19:21 BP 142/73 05/07/18 19:21 Pulse Ox 95 05/07/18 19:21 Intake & Output 05/07/18 05/08/18 05/08/18 18:59 06:59 18:59 Intake Total 900 Balance 900 Intake: Intake, IV Titration 900 Amount Sodium Chloride 0.9% 1, 900 000 ml @ 75 mls/hr IV . [id number] [facility] Rx#:[id number] Other: Voiding Method Toilet # Voids 3 1 # Bowel Movements 1 - Constitutional General appearance: Present: average body habitus, no acute distress - EENT Eyes: Absent: abnormal pupil - Neck Neck: Absent: lymphadenopathy - Respiratory Respiratory: bilateral: CTA - Cardiovascular Rhythm: regular Heart sounds: normal: S1, S2 Abnormal Heart Sounds: Absent: S3 Gallop - Gastrointestinal General gastrointestinal: Present: distended, hyperactive bowel sounds - Integumentary Integumentary: Absent: cellulitis, ulcer - Neurologic Neurologic: Present: CNII-XII intact, focal deficits - Labs CBC & Chem 7: 05/05/18 23:37 05/05/18 23:37 Labs: Abnormal Lab Results - Last 24 Hours (Table) 05/07/18 05/08/18 Range/Units 20:54 07:04 POC Glucose (mg/dL) 170 H 179 H (75-99) mg/dL Assessment and Plan (1) Abdominal pain Current Visit: Yes Status: Acute Code(s): R10.9 - UNSPECIFIED ABDOMINAL PAIN SNOMED Code(s): 69345089 (2) Crohns disease Current Visit: No Status: Acute Code(s): K50.90 - CROHN'S DISEASE, UNSPECIFIED, WITHOUT COMPLICATIONS SNOMED Code(s): 24701385 (3) History of Clostridium difficile colitis Current Visit: No Status: Acute Code(s): Z86.19 - PERSONAL HISTORY OF OTHER INFECTIOUS AND PARASITIC DISEASES SNOMED Code(s): 650239166 (4) Opiate dependence Current Visit: No Status: Acute Code(s): F11.20 - OPIOID DEPENDENCE, UNCOMPLICATED SNOMED Code(s): 35167696 (5) Gout Current Visit: No Status: Chronic Code(s): M10.9 - GOUT, UNSPECIFIED SNOMED Code(s): 55324208 (6) Rheumatoid arthritis Current Visit: No Status: Chronic Code(s): M06.9 - RHEUMATOID ARTHRITIS, UNSPECIFIED SNOMED Code(s): 19973029 Plan: Go ahead and give Suboxone from home if able. I am somewhat reluctant to restart full pain control with opiates. Check CBC and CMP in a.m. Appreciate GI and surgery consultations. Watch blood pressure closely and titrate as necessary.
[2018-05-08] MEDS: HEPARIN SODIUM,PORCINE 5,000 UNIT/ML 1 ML VIAL SQ SCH ×2 (08:33→20:15)
[2018-05-08] MEDS: ALLOPURINOL 300 MG TAB PO SCH (08:33)
[2018-05-08] MEDS: amLODIPine 5 MG TAB PO SCH (08:33)
[2018-05-08] MEDS: cloNIDine HCL 0.1 MG TAB PO SCH ×3 (08:33→20:14)
[2018-05-08] MEDS: PANTOPRAZOLE 40 MG/10 ML VIAL IVP SCH ×2 (08:33→20:14)
[2018-05-08 09:47] LABS: ALT 40 U/L (21-72); AST 28 U/L (17-59); Albumin 3.5 g/dL (3.5-5.0); Alkaline Phosphatase 45 U/L (38-126); Anion Gap 7 mmol/L; Blood Urea Nitrogen 13 mg/dL (9-20); Calcium 8.2 mg/dL (8.4-10.2); Carbon Dioxide 19 mmol/L (22-30); Chloride 111 mmol/L (98-107); Glucose 258 mg/dL (74-99); Potassium 3.8 mmol/L (3.5-5.1); Sodium 137 mmol/L (137-145); Total Bilirubin 0.8 mg/dL (0.2-1.3); Total Protein 6.4 g/dL (6.3-8.2)
[2018-05-08 11:24] LABS: Glucose,Whole Blood 144 mg/dL (75-99)
[2018-05-08] MEDS ORDERED: DICYCLOMINE 20 MG TAB PO PRN (12:11)
[2018-05-08 12:13] LABS: Hemoglobin A1C 5.5 % (4.0-6.0)
--- NOTE | 2018-05-08 13:03 | P.PN ---
Subjective Progress Note Date: 05/08/18 Principal diagnosis: Abdominal pain Patient complaining of bloating. Having more diarrhea. Some incontinence to liquid stools. Tolerating solid foods though. No vomiting. Objective - Vital Signs Vital signs: Vital Signs Temp 97.8 F 05/08/18 07:21 Pulse 75 05/08/18 07:21 Resp 16 05/08/18 07:21 BP 170/89 05/08/18 07:21 Pulse Ox 96 05/08/18 07:21 Intake & Output 05/07/18 05/08/18 05/08/18 18:59 06:59 18:59 Intake Total 900 Balance 900 Intake: Intake, IV Titration 900 Amount Sodium Chloride 0.9% 1, 900 000 ml @ 75 mls/hr IV . [id number] [facility] Rx#:[id number] Other: Voiding Method Toilet Toilet # Voids 3 1 # Bowel Movements 1 - Exam Abdomen: Soft, mild distention, mild diffuse tenderness - Labs CBC & Chem 7: 05/05/18 23:37 05/08/18 07:44 Labs: Abnormal Lab Results - Last 24 Hours (Table) 05/07/18 05/08/18 05/08/18 Range/Units 20:54 07:04 07:44 Chloride 111 H (98-107) mmol/L Carbon Dioxide 19 L (22-30) mmol/L Glucose 258 H (74-99) mg/dL POC Glucose (mg/dL) 170 H 179 H (75-99) mg/dL Calcium 8.2 L (8.4-10.2) mg/dL 05/08/18 Range/Units 11:23 Chloride (98-107) mmol/L Carbon Dioxide (22-30) mmol/L Glucose (74-99) mg/dL POC Glucose (mg/dL) 144 H (75-99) mg/dL Calcium (8.4-10.2) mg/dL Assessment and Plan (1) Abdominal pain Narrative/Plan: Patient with abdominal bloating and diarrhea. Stool studies ordered by GI. No obstruction seen on recent CAT scan. We'll follow. Current Visit: Yes Status: Acute Code(s): R10.9 - UNSPECIFIED ABDOMINAL PAIN SNOMED Code(s): 17568076
[2018-05-08] MEDS: BUPRENORPHINE SUBLINGUAL SCH (16:31)
[2018-05-08] MEDS: NALOXONE SUBLINGUAL SCH (16:31)
[2018-05-08 17:12] LABS: Glucose,Whole Blood 222 mg/dL (75-99)
[2018-05-08 19:52] LABS: Glucose,Whole Blood 257 mg/dL (75-99)
[2018-05-08] MEDS: ACETAMINOPHEN TAB 325 MG TAB PO PRN (22:57)
[2018-05-09] MEDS: SODIUM CHLORIDE 0.9% 1,000 ML IV SCH ×2 (00:47→12:51)
[2018-05-09] MEDS: HYDROmorphone 0.5 MG/0.5 ML SYRINGE IVP PRN ×4 (01:29→14:15)
[2018-05-09] MEDS: methylPREDNISolone SOD SUCCI 125 MG/2 ML VIAL IV SCH ×2 (04:55→12:48)
[2018-05-09 06:53] LABS: Glucose,Whole Blood 155 mg/dL (75-99)
[2018-05-09] MEDS: INSULIN ASPART 100 UNIT/ML 1 ML 10 ML VIAL SQ SCH ×2 (07:42→12:49)
--- NOTE | 2018-05-09 07:42 | P.PN ---
Subjective Progress Note Date: 05/08/18 Principal diagnosis: Crohn's disease, abdominal pain Patient seen lying in bed. He is still reporting loose bowel movements and abdominal distention. He has tolerated diet with no nausea or vomiting. Objective - Vital Signs Vital signs: Vital Signs Temp 97.2 F L 05/08/18 23:44 Pulse 62 05/08/18 23:44 Resp 18 05/08/18 23:44 BP 165/97 05/08/18 23:44 Pulse Ox 97 05/08/18 23:44 Intake & Output 05/08/18 05/09/18 05/09/18 18:59 06:59 18:59 Intake Total 937.5 Output Total 250 Balance -250 937.5 Intake: Intake, IV Titration 937.5 Amount Sodium Chloride 0.9% 1, 937.5 000 ml @ 75 mls/hr IV . [id number] [facility] Rx#:[id number] Output: Urine 250 Other: Voiding Method Toilet # Voids 3 - Exam On physical examination, patient appears comfortable in no apparent distress. HEAD: Normocephalic, atraumatic. EYES: No scleral icterus. No conjunctival injection. MOUTH: No lesions, tongue midline. NECK: Trachea midline, no gross abnormalities. CHEST: Clear to auscultation with no wheezing or rhonchi appreciated. HEART: Regular rate and rhythm. ABDOMEN: Soft, mildly distended. Bowel sounds are positive. No organomegaly. No guarding or rigidity. EXTREMITIES: No pedal edema. SKIN: No rashes, no jaundice. NEUROLOGIC: Alert and oriented x3. No focal deficits. - Labs CBC & Chem 7: 05/05/18 23:37 05/08/18 07:44 Labs: Abnormal Lab Results - Last 24 Hours (Table) 05/08/18 05/08/18 05/08/18 Range/Units 07:44 11:23 17:10 Chloride 111 H (98-107) mmol/L Carbon Dioxide 19 L (22-30) mmol/L Glucose 258 H (74-99) mg/dL POC Glucose (mg/dL) 144 H 222 H (75-99) mg/dL Calcium 8.2 L (8.4-10.2) mg/dL 05/08/18 05/09/18 Range/Units 19:50 06:48 Chloride (98-107) mmol/L Carbon Dioxide (22-30) mmol/L Glucose (74-99) mg/dL POC Glucose (mg/dL) 257 H 155 H (75-99) mg/dL Calcium (8.4-10.2) mg/dL Assessment and Plan (1) Abdominal pain Narrative/Plan: Unknown etiology, however computed tomography scan negative for obstruction or other acute process, this may be related to the patient's known history of irritable bowel syndrome. Current Visit: Yes Status: Acute Code(s): R10.9 - UNSPECIFIED ABDOMINAL PAIN SNOMED Code(s): 44114870 (2) Crohns disease Narrative/Plan: The patient has a known history of Crohn's disease with 2 prior small bowel resections. Computed tomography scan was negative for obstruction and ESR and CRP are negative making active disease less likely. Current Visit: No Status: Acute Code(s): K50.90 - CROHN'S DISEASE, UNSPECIFIED, WITHOUT COMPLICATIONS SNOMED Code(s): 40156912 (3) Diarrhea Narrative/Plan: EIA testing for Clostridium difficile was negative, other stool studies pending. Current Visit: No Status: Acute Code(s): R19.7 - DIARRHEA, UNSPECIFIED SNOMED Code(s): 48107197 Plan: Supportive care Okay for diet Results from computed tomography scan, ESR and CRP noted EIA for Clostridium difficile negative Will increase dose of Bentyl to 20 mg as needed for abdominal pain Further stool studies ordered Can consider addition of Imodium or Lomotil for symptomatic treatment Plan is for outpatient follow-up with gastroenterology and Dr. Yancey and consideration for MR enterography in the outpatient setting Thank you for allowing us dysphagia in the care of this patient we will continue to follow
[2018-05-09 07:47] VITALS: BP 145/79; PULSE 63; RESP 16; TEMP 97.6
[2018-05-09] MEDS: HEPARIN SODIUM,PORCINE 5,000 UNIT/ML 1 ML VIAL SQ SCH (08:44)
[2018-05-09] MEDS: cloNIDine HCL 0.1 MG TAB PO SCH (08:44)
[2018-05-09] MEDS: ALLOPURINOL 300 MG TAB PO SCH (08:44)
[2018-05-09] MEDS: amLODIPine 5 MG TAB PO SCH (08:44)
[2018-05-09] MEDS: PANTOPRAZOLE 40 MG/10 ML VIAL IVP SCH (08:44)
[2018-05-09 09:03] LABS: HCT 33.4 % (39.0-53.0); HGB 10.4 gm/dL (13.0-17.5); Hypochromasia Slight; MCH 30.1 pg (25.0-35.0); MCHC 31.2 g/dL (31.0-37.0); MCV 96.7 fL (80.0-100.0); Mean Platelet Volume 6.7; Platelet Count 175 k/uL (150-450); RBC 3.46 m/uL (4.30-5.90); RDW 14.7 % (11.5-15.5); WBC 11.6 k/uL (3.8-10.6)
[2018-05-09 09:14] LABS: ALT 35 U/L (21-72); AST 27 U/L (17-59); Albumin 3.1 g/dL (3.5-5.0); Alkaline Phosphatase 37 U/L (38-126); Anion Gap 4 mmol/L; Blood Urea Nitrogen 17 mg/dL (9-20); Calcium 7.8 mg/dL (8.4-10.2); Carbon Dioxide 26 mmol/L (22-30); Chloride 110 mmol/L (98-107); Glucose 131 mg/dL (74-99); Potassium 4.4 mmol/L (3.5-5.1); Sodium 140 mmol/L (137-145); Total Bilirubin 0.6 mg/dL (0.2-1.3); Total Protein 5.8 g/dL (6.3-8.2)
[2018-05-09 12:05] LABS: Glucose,Whole Blood 234 mg/dL (75-99)
--- NOTE | 2018-05-09 12:53 | P.DS ---
Providers Date of admission: 05/06/18 04:45 Attending physician: Minh Saldaña Consults: 05/06/18 10:15 Consult Physician Routine Consulting Provider: Peter Patten Reason/Comments: abd. Pain Do you want consulting provider notified?: Yes Primary care physician: Minh Saldaña - Discharge Diagnosis(es) (1) Abdominal pain Current Visit: Yes Status: Acute (2) Crohns disease Current Visit: No Status: Acute (3) History of Clostridium difficile colitis Current Visit: No Status: Acute (4) Opiate dependence Current Visit: No Status: Acute (5) Gout Current Visit: No Status: Chronic (6) Rheumatoid arthritis Current Visit: No Status: Chronic Hospital Course: This 60-year-old white male essentially admitted for Crohn's colitis flare. Improved steroids and Bentyl. Multiple consultants including GI and surgery were obtained. The patient is not tolerating diet and has significantly less pain. The patient will be discharged in stable condition and follow-up with me in approximately one week. Patient Condition at Discharge: Stable Plan - Discharge Summary Discharge Rx Participant: No New Discharge Prescriptions: New Acetaminophen Tab [Tylenol] 650 mg PO Q6HR PRN tab PRN Reason: Mild Pain Or Fever > 100.5 cloNIDine HCL [Catapres] 0.1 mg PO TID #90 tab Dicyclomine [Bentyl] 20 mg PO TID PRN #90 tab PRN Reason: Dyspepsia Continue amLODIPine [Norvasc] 5 mg PO DAILY Orphenadrine Citrate [Orphenadrine Citrate ER] 100 mg PO BID Adalimumab [Humira Pen] 40 mg SQ Q14D Allopurinol [Zyloprim] 300 mg PO DAILY Buprenorphine HCl/Naloxone HCl [Suboxone 2 mg-0.5 mg Sl Film] 1 film SUBLINGUAL DAILY@1700 Omeprazole 20 mg PO BID Aspirin 325 mg PO DAILY Febuxostat [Uloric] 80 mg PO DAILY Discharge Medication List Orphenadrine Citrate [Orphenadrine Citrate ER] 100 mg PO BID 12/08/17 [History] amLODIPine [Norvasc] 5 mg PO DAILY 12/08/17 [History] Adalimumab [Humira Pen] 40 mg SQ Q14D 04/25/18 [History] Allopurinol [Zyloprim] 300 mg PO DAILY 04/25/18 [History] Buprenorphine HCl/Naloxone HCl [Suboxone 2 mg-0.5 mg Sl Film] 1 film SUBLINGUAL DAILY@1700 04/25/18 [History] Aspirin 325 mg PO DAILY 05/05/18 [History] Febuxostat [Uloric] 80 mg PO DAILY 05/05/18 [History] Omeprazole 20 mg PO BID 05/05/18 [History] Acetaminophen Tab [Tylenol] 650 mg PO Q6HR PRN tab 05/09/18 [Rx] Dicyclomine [Bentyl] 20 mg PO TID PRN #90 tab 05/09/18 [Rx] cloNIDine HCL [Catapres] 0.1 mg PO TID #90 tab 05/09/18 [Rx] Follow up Appointment(s)/Referral(s): Minh Saldaña MD [Primary Care Provider] - 1 Week Laura Yancey MD [STAFF PHYSICIAN] - 05/31/18 1:00 pm
[2018-05-09] MEDS ORDERED: SUBOXONE SUBLINGUAL SCH (17:00)
[2018-05-09] MEDS ORDERED: PANTOPRAZOLE 40 MG TABLET PO SCH (17:30)
== END 2018-05-09 15:45 | disposition home or self-care (01) | DRG 386 ==
LOC: EC 22:14 → 4SSUR 05-06 04:45
PROVIDERS: ADMIT Family Medicine; ATTEND Family Medicine
DX: K50.10 Crohn's disease of large intestine without complications (principal); F11.20 Opioid dependence, uncomplicated; R15.9 Full incontinence of feces; E78.5 Hyperlipidemia, unspecified; R19.7 Diarrhea, unspecified; F32.9 Major depressive disorder, single episode, unspecified; F41.9 Anxiety disorder, unspecified; G89.29 Other chronic pain; I10 Essential (primary) hypertension; K21.9 Gastro-esophageal reflux disease without esophagitis; M06.9 Rheumatoid arthritis, unspecified; M10.9 Gout, unspecified; N20.0 Calculus of kidney; G43.909 Migraine, unspecified, not intractable, without status migrainosus; L40.9 Psoriasis, unspecified; H93.13 Tinnitus, bilateral; K59.00 Constipation, unspecified; Z79.82 Long term (current) use of aspirin; Z79.899 Other long term (current) drug therapy; Z90.49 Acquired absence of other specified parts of digestive tract; Z90.3 Acquired absence of stomach [part of]; Z87.442 Personal history of urinary calculi; Z87.11 Personal history of peptic ulcer disease; Z86.19 Personal history of other infectious and parasitic diseases; Z91.041 Radiographic dye allergy status; Z98.42 Cataract extraction status, left eye; Z98.41 Cataract extraction status, right eye; Z96.1 Presence of intraocular lens; Z82.3 Family history of stroke; Z82.49 Family history of ischemic heart disease and other diseases of the circulatory system
CPT/HCPCS: 36415; 74018; 74176; 80053; 80306; 81003; 82150; 83036; 83605; 83690; 84484; 85025; 85027; 85652; 86140; 87324; 96361; 96374; 96375; 96376; 99285

== ENCOUNTER → 2018-05-22 | Day surgery (SDC) | payer BC, MEDICARE ==
[~2018-05-22] MED LIST changes: +GLUCAGON 1 MG/ML VIAL IM STA; -LACTATED RINGERS 1,000 ML IV SCH; -LIDOCAINE 1% INJ 10MG/ML (20 ML MDV) ONE; -PROPOFOL 10 MG/ML 20 ML VIAL IV ONE
[2018-05-22 08:33] VITALS: RESP 16; TEMP 97.5
[2018-05-22 08:42] VITALS: BP 159/78; PULSE 67
== END ==
LOC: RADMRIMAIN 08:10
PROVIDERS: ATTEND Internal Medicine Gastroenterology
DX: K50.90 Crohn's disease, unspecified, without complications (principal); Z53.9 Procedure and treatment not carried out, unspecified reason

== ENCOUNTER → 2018-05-30 | Day surgery (SDC) | payer BC, MEDICARE ==
[2018-05-30 08:48] VITALS: BP 162/80; PULSE 64; RESP 14; TEMP 98.3
--- NOTE | 2018-05-31 15:26 | MR ---
EXAMINATION TYPE: MR Enterography DATE OF EXAM: 05/30/2018 COMPARISON: CT abdomen pelvis dated 05/06/2018 HISTORY: Crohn's disease CONTRAST: Standard multiplanar, multisequence imaging of the abdomen is performed without and with IV contrast, patient is injected with 8.5 mL intravenous Gadavist gadolinium contrast. Oral Volumen and Water was given as per enterography protocol. FINDINGS: Patient motion slightly limits examination. There is usual distensibility of the terminal ileum with the lumen and water contrast. No terminal il eal thickening is seen. Numerous filling defects within the colon likely related to ingested substanc es and fecal debris. There is no focal restricted diffusion of the bowel. Note is made of a small bow el to small bowel intussusception in the left mid abdomen on postcontrast coronal images 106 through 160. On the second pass enhanced coronal images there is slightly increased uptake in a long segment of bowel in the location within the jejunum measuring approximately 6 cm. No other focal areas within normal bowel enhancement are identified. The previously seen prominent lymph nodes are less conspicuous on today's examination. No suspicious adenopathy of the abdomen or pelvis. No evidence of sinus tract, fistula, or intra-abdominal fluid co llection to suggest abscess. There are scattered T2 hyperintense and T1 hypointense nonenhancing right renal cyst and other lesion s that are too small to accurately characterize. There is tortuosity of the abdominal aorta and infra renal ectasia measuring 2.4 x 2.4 cm without aneurysmal dilatation. Evaluation of the enhancement of the visualized portions of the liver and spleen are suboptimal given overlying artifact. IMPRESSION: Entero-enteral intussusception within the jejunum of the left upper quadrant secondary long segment b owel wall thickening (segment length of approximately 6 cm). This likely represents a skip lesion of the patient's known Crohn's disease. No current terminal ileitis.
== END ==
LOC: RADMRIMAIN 08:09
PROVIDERS: ATTEND Internal Medicine Gastroenterology
DX: K50.90 Crohn's disease, unspecified, without complications (principal)
CPT/HCPCS: 96372; 72197; 74183; J1610; A9585

== ENCOUNTER 2018-08-18 05:36 | Inpatient (IN) | payer BC, MEDICARE ==
[2018-08-18] MEDS ORDERED: SODIUM CHLORIDE 0.9% 1,000 ML IV STA (06:03)
[2018-08-18] MEDS ORDERED: ONDANSETRON 4 MG/2 ML VIAL IVP STA (06:03)
[2018-08-18] MEDS ORDERED: MORPHINE SULFATE 4 MG/ML SYRINGE IVP STA (06:31)
--- NOTE | 2018-08-18 06:31 | ED ---
Abdominal Pain HPI - General Chief Complaint: Abdominal Pain Stated Complaint: Abd Pain Time Seen by Provider: 08/18/18 06:02 Source: patient Mode of arrival: ambulatory Limitations: no limitations - History of Present Illness Initial Comments: Silvano is a pleasant 68-year-old gentleman with a past medical history of Crohn's disease which is well-controlled on Humira. Patient presents to the emergency department today for evaluation of abdominal pain and concern for Crohn's flare. Patient reports that he previously had Crohn's flares very regularly however he is undergone multiple surgeries and has had third of the stomach and approximately 5 foot of intestines removed. Since this he reports that he experiences clears presently once every 6 months. Patient reports that usually his Crohn's is very well controlled and he is compliant with his Humira and follow up with gastroenterology. Patient reports that over the past 2 days she's had worsening abdominal cramping nausea and vomiting. Patient states that he always has diarrhea and has been unchanged recently has not noted any blood in his stools. Patient reports that he's been unable to control his nausea vomiting and abdominal cramping. He reports it is diarrhea has slowed down throughout the night however he doesn't feel pressure in his abdomen that he is experienced with previous bowel obstructions. denies any associated fevers, chills, chest pain or shortness of breath. - Related Data Home Medications Medication Instructions Recorded Confirmed Orphenadrine Citrate [Orphenadrine 100 mg PO BID 12/08/17 05/30/18 Citrate ER] amLODIPine [Norvasc] 5 mg PO DAILY 12/08/17 05/30/18 Adalimumab [Humira Pen] 40 mg SQ Q14D 04/25/18 05/30/18 Buprenorphine HCl/Naloxone HCl 1 film SUBLINGUAL DAILY@1700 04/25/18 05/30/18 [Suboxone 2 mg-0.5 mg Sl Film] Aspirin 325 mg PO DAILY 05/05/18 05/30/18 Febuxostat [Uloric] 80 mg PO DAILY 05/05/18 05/30/18 Omeprazole 20 mg PO BID 05/05/18 05/30/18 Previous Rx's Medication Instructions Recorded Dicyclomine [Bentyl] 20 mg PO TID PRN #90 tab 05/09/18 cloNIDine HCL [Catapres] 0.1 mg PO TID #90 tab 05/09/18 Allergies Allergy/AdvReac Type Severity Reaction Status Date / Time Iodinated Contrast- Oral and Allergy Anaphylaxis Verified 08/18/18 05:54 IV Dye [Iodinated Contrast Media - IV Dye] Review of Systems ROS Statement: Those systems with pertinent positive or pertinent negative responses have been documented in the HPI. ROS Other: All systems not noted in ROS Statement are negative. Past Medical History Past Medical History: GERD/Reflux, Hypertension, Renal Disease, Rheumatoid Arthritis (RA), Skin Disorder, Supraventricular Tachycardia (SVT) Additional Past Medical History / Comment(s): hx CROHN'S (takes tresa), IBS, chronic diarrhea, migraines-just a couple, hx SVT with ablation, hx ulcers, anemia, generalized gout, kidney stones pt passed on his own, psoriasis, bilateral tinnitis., History of Any Multi-Drug Resistant Organisms: None Reported Date of last positivie culture/infection: 11/29/2013 MDRO Source:: C-DIFF x 6 in Past Surgical History: Bowel Resection, Cardiac Ablation, Cholecystectomy, Heart Catheterization, Hernia Repair, Orthopedic Surgery, Tonsillectomy Additional Past Surgical History / Comment(s): partial gastrectomy (ulcers), bowel resections, fecal transplant, bilateral knee arthroscopic surgery, EGD/colonoscopies, R inguinal hernia repair, bilat cataract removal. Past Anesthesia/Blood Transfusion Reactions: Blood Transfusion Reaction, Motion Sickness Additional Past Anesthesia/Blood Transfusion Reaction / Comment(s): BLOOD TRANSFUSION- BROKE OUT IN HIVES age 21 Past Psychological History: Anxiety, Depression Smoking Status: Never smoker Past Alcohol Use History: Rare Past Drug Use History: None Reported - Past Family History Father Family Medical History: Dementia Additional Family Medical History / Comment(s): Father at the age of 86yrs. Mother Family Medical History: Myocardial Infarction ([place]), Pulmonary Embolus Additional Family Medical History / Comment(s): AGE 73-[place], STROKE DURING CARATID PROCEDURE General Exam - General Exam Comments Initial Comments: Physical Exam GENERAL: Patient is well-developed and well-nourished. Patient appears uncomfortable HENT: Normocephalic, Atraumatic. EYES: PERRL, EOMI PULMONARY: Unlabored respirations. No audible rales rhonchi or wheezing was noted. CARDIOVASCULAR: There is a regular rate and rhythm without any murmurs gallops or rubs. ABDOMEN: There is mild tenderness to palpation diffusely, abdomen is nontender panic non-peritoneal Normal active bowel sounds Well-healed abdominal scars SKIN: Skin is clear with no lesions or rashes and otherwise unremarkable. : Deferred NEUROLOGIC: Patient is alert and oriented x3. Moving all extremities spontaneously MUSCULOSKELETAL: Normal extremities with adequate strength and full range of motion. No lower extremity swelling or edema. No calf tenderness. PSYCHIATRIC: Normal psychiatric evaluation. Limitations: no limitations Limitations: no limitations Course Vital Signs 08/18/18 05:52 Temperature 98.1 F Pulse Rate 90 Respiratory 18 Rate Blood Pressure 184/92 O2 Sat by Pulse 97 Oximetry Medical Decision Making - Medical Decision Making Patient was seen and evaluated, history is obtained from the patient and review of medical record This is a pleasant 60-year-old gentleman with known Crohn's disease presenting with worsening abdominal pain nausea and vomiting concerning for Crohn's flare Labs and imaging were ordered X-ray was reviewed by me doesn't appear to have any signs of the small bowel obstruction Labs were patient's baseline Patient received Zofran, morphine, fluids Patient care was discussed with patient's primary care provider Dr. Saldaña who is very familiar with patient and agrees with plan for admission for IV steroids and consult to gastroenterology - Lab Data Result diagrams: 08/18/18 06:20 08/18/18 06:20 Lab Results 08/18/18 08/18/18 08/18/18 Range/Units 06:10 06:20 06:20 WBC 6.9 (3.8-10.6) k/uL RBC 3.97 L (4.30-5.90) m/uL Hgb 12.2 L (13.0-17.5) gm/dL Hct 38.6 L (39.0-53.0) % MCV 97.1 (80.0-100.0) fL MCH 30.8 (25.0-35.0) pg MCHC 31.7 (31.0-37.0) g/dL RDW 13.1 (11.5-15.5) % Plt Count 205 (150-450) k/uL Neutrophils % 61 % Lymphocytes % 25 % Monocytes % 5 % Eosinophils % 4 % Basophils % 1 % Neutrophils # 4.2 (1.3-7.7) k/uL Lymphocytes # 1.7 (1.0-4.8) k/uL Monocytes # 0.4 (0-1.0) k/uL Eosinophils # 0.3 (0-0.7) k/uL Basophils # 0.0 (0-0.2) k/uL Sodium 141 (137-145) mmol/L Potassium 4.3 (3.5-5.1) mmol/L Chloride 113 H (98-107) mmol/L Carbon Dioxide 18 L (22-30) mmol/L Anion Gap 10 mmol/L BUN 18 (9-20) mg/dL Creatinine 1.15 (0.66-1.25) mg/dL Est GFR (CKD-EPI)AfAm 76 (>60 ml/min/1.73 sqM) Est GFR (CKD-EPI)NonAf 66 (>60 ml/min/1.73 sqM) Glucose 134 H (74-99) mg/dL Plasma Lactic Acid Kal (0.7-2.0) mmol/L Calcium 9.1 (8.4-10.2) mg/dL Total Bilirubin 0.7 (0.2-1.3) mg/dL AST 50 (17-59) U/L ALT 51 (21-72) U/L Alkaline Phosphatase 63 (38-126) U/L Total Protein 8.0 (6.3-8.2) g/dL Albumin 4.3 (3.5-5.0) g/dL Amylase 134 H (30-110) U/L Lipase 64 (23-300) U/L Urine Color Yellow Urine Appearance Clear (Clear) Urine pH 5.5 (5.0-8.0) Ur Specific [place] 1.018 (1.001-1.035) Urine Protein Trace H (Negative) Urine Glucose (UA) Negative (Negative) Urine Ketones Negative (Negative) Urine Blood Negative (Negative) Urine Nitrite Negative (Negative) Urine Bilirubin Negative (Negative) Urine Urobilinogen <2.0 (<2.0) mg/dL Ur Leukocyte Esterase Negative (Negative) 08/18/18 Range/Units 06:20 WBC (3.8-10.6) k/uL RBC (4.30-5.90) m/uL Hgb (13.0-17.5) gm/dL Hct (39.0-53.0) % MCV (80.0-100.0) fL MCH (25.0-35.0) pg MCHC (31.0-37.0) g/dL RDW (11.5-15.5) % Plt Count (150-450) k/uL Neutrophils % % Lymphocytes % % Monocytes % % Eosinophils % % Basophils % % Neutrophils # (1.3-7.7) k/uL Lymphocytes # (1.0-4.8) k/uL Monocytes # (0-1.0) k/uL Eosinophils # (0-0.7) k/uL Basophils # (0-0.2) k/uL Sodium (137-145) mmol/L Potassium (3.5-5.1) mmol/L Chloride (98-107) mmol/L Carbon Dioxide (22-30) mmol/L Anion Gap mmol/L BUN (9-20) mg/dL Creatinine (0.66-1.25) mg/dL Est GFR (CKD-EPI)AfAm (>60 ml/min/1.73 sqM) Est GFR (CKD-EPI)NonAf (>60 ml/min/1.73 sqM) Glucose (74-99) mg/dL Plasma Lactic Acid Kal 1.6 (0.7-2.0) mmol/L Calcium (8.4-10.2) mg/dL Total Bilirubin (0.2-1.3) mg/dL AST (17-59) U/L ALT (21-72) U/L Alkaline Phosphatase (38-126) U/L Total Protein (6.3-8.2) g/dL Albumin (3.5-5.0) g/dL Amylase (30-110) U/L Lipase (23-300) U/L Urine Color Urine Appearance (Clear) Urine pH (5.0-8.0) Ur Specific [place] (1.001-1.035) Urine Protein (Negative) Urine Glucose (UA) (Negative) Urine Ketones (Negative) Urine Blood (Negative) Urine Nitrite (Negative) Urine Bilirubin (Negative) Urine Urobilinogen (<2.0) mg/dL Ur Leukocyte Esterase (Negative) Disposition Clinical Impression: Crohns disease, Nausea, Nausea and vomiting, Abdominal pain Disposition: ADMITTED IP TO THIS HOSP Condition: Stable Is patient prescribed a controlled substance at d/c from ED?: No Referrals: Minh Saldaña MD [Primary Care Provider] - 1-2 days
[2018-08-18 06:43] LABS: Basophils % (A) 1 %; Eosinophils # (A) 0.3 k/uL (0-0.7); Eosinophils % (A) 4 %; HCT 38.6 % (39.0-53.0); HGB 12.2 gm/dL (13.0-17.5); Lymphocytes # (A) 1.7 k/uL (1.0-4.8); Lymphocytes % (A) 25 %; MCH 30.8 pg (25.0-35.0); MCHC 31.7 g/dL (31.0-37.0); MCV 97.1 fL (80.0-100.0); Mean Platelet Volume 6.4; Monocytes # (A) 0.4 k/uL (0-1.0); Monocytes % (A) 5 %; Neutrophils # (A) 4.2 k/uL (1.3-7.7); Neutrophils % (A) 61 %; Platelet Count 205 k/uL (150-450); RBC 3.97 m/uL (4.30-5.90); RDW 13.1 % (11.5-15.5); WBC 6.9 k/uL (3.8-10.6)
[2018-08-18 06:45] LABS: Appearance,Urine Clear (Clear); Bilirubin,Urine Negative (Negative); Blood,Urine Negative (Negative); Color,Urine Yellow; Glucose,Urine (UA) Negative (Negative); Ketones,Urine Negative (Negative); Leukocyte Esterase,Urine Negative (Negative); Nitrite,Urine Negative (Negative); PH, Urine 5.5 (5.0-8.0); Protein,Urine Trace (Negative); Specific Gravity,Urine 1.018 (1.001-1.035); Urobilinogen,Urine <2.0 mg/dL (<2.0)
[2018-08-18 06:51] LABS: Albumin 4.3 g/dL (3.5-5.0); Calcium 9.1 mg/dL (8.4-10.2); Potassium 4.3 mmol/L (3.5-5.1); Total Bilirubin 0.7 mg/dL (0.2-1.3)
[2018-08-18] MEDS ORDERED: methylPREDNISolone SOD SUCCI 40 MG/ML 1 ML VIAL IV STA (06:56)
--- NOTE | 2018-08-18 07:04 | XR ---
EXAMINATION TYPE: XR KUB DATE OF EXAM: 08/18/2018 6:40 AM CLINICAL HISTORY: History of Crohn's disease with abdominal pain TECHNIQUE: Two Upright KUB images of the abdomen are obtained. COMPARISON: Abdominal x-ray May 05, 2018. CT abdomen and pelvis May 06, 2018. FINDINGS: There is some paucity of bowel gas. Visualized gas is seen in nondistended small and large bowel loops as well as stomach. Numerous surgical clips overlie the right mid abdomen with cholecyste ctomy clips also redemonstrated. There are additional surgical clips epigastric region. Small bilater al renal calculi are redemonstrated. Visualized osseous structures are intact. No pneumoperitoneum. S pleen appears more prominent. IMPRESSION: Overall nonspecific but favor nonobstructive bowel gas pattern.
[2018-08-18] MEDS ORDERED: LOPERAMIDE 2 MG CAP PO PRN (07:05)
[2018-08-18] MEDS ORDERED: NALOXONE 0.4 MG/ML 1 ML VIAL IV PRN (07:05)
--- NOTE | 2018-08-18 08:32 | P.HPIM ---
History of Present Illness H&P Date: 08/18/18 Chief Complaint: Crohn's flare This is a history and physical on a 68-year-old white male with history of rheumatoid arthritisand Crohn's colitis who is having a flareup. He hasn't underlying history of opiate dependence in the past and has been taking Suboxone.No significant fever or chills but severe abdominal pain. Computed tomography scan abdomen does show colitis flareup without obstruction and he is admitted for appropriate flare Review of Systems Constitutional: Denies chills, Denies fever Eyes: denies blurred vision, denies pain Cardiovascular: Denies chest pain, Denies shortness of breath Respiratory: Denies cough Gastrointestinal: Reports as per HPI Genitourinary: Reports as per HPI, Denies dysuria, Denies erectile dysfunction Musculoskeletal: Denies myalgias Integumentary: Denies pruritus, Denies rash Neurological: Denies numbness, Denies weakness Past Medical History Past Medical History: GERD/Reflux, Hypertension, Renal Disease, Rheumatoid Arthritis (RA), Skin Disorder, Supraventricular Tachycardia (SVT) Additional Past Medical History / Comment(s): hx CROHN'S (takes tresa), IBS, chronic diarrhea, migraines-just a couple, hx SVT with ablation, hx ulcers, anemia, generalized gout, kidney stones pt passed on his own, psoriasis, bilateral tinnitis., History of Any Multi-Drug Resistant Organisms: None Reported Date of last positivie culture/infection: 11/29/2013 MDRO Source:: C-DIFF x 6 in Past Surgical History: Bowel Resection, Cardiac Ablation, Cholecystectomy, Heart Catheterization, Hernia Repair, Orthopedic Surgery, Tonsillectomy Additional Past Surgical History / Comment(s): partial gastrectomy (ulcers), bowel resections, fecal transplant, bilateral knee arthroscopic surgery, EGD/colonoscopies, R inguinal hernia repair, bilat cataract removal. Past Anesthesia/Blood Transfusion Reactions: Blood Transfusion Reaction, Motion Sickness Additional Past Anesthesia/Blood Transfusion Reaction / Comment(s): BLOOD TRANSFUSION- BROKE OUT IN HIVES age 21 Past Psychological History: Anxiety, Depression Smoking Status: Never smoker Past Alcohol Use History: Rare Past Drug Use History: None Reported - Past Family History Father Family Medical History: Dementia Additional Family Medical History / Comment(s): Father at the age of 86yrs. Mother Family Medical History: Myocardial Infarction ([place]), Pulmonary Embolus Additional Family Medical History / Comment(s): AGE 73-[place], STROKE DURING CARATID PROCEDURE Medications and Allergies Home Medications Medication Instructions Recorded Confirmed Type Orphenadrine Citrate [Orphenadrine 100 mg PO BID 12/08/17 08/18/18 History Citrate ER] amLODIPine [Norvasc] 5 mg PO DAILY 12/08/17 08/18/18 History Adalimumab [Humira Pen] 40 mg SQ Q14D 04/25/18 08/18/18 History Aspirin 325 mg PO DAILY PRN 05/05/18 08/18/18 History Febuxostat [Uloric] 80 mg PO DAILY 05/05/18 08/18/18 History Allergies Allergy/AdvReac Type Severity Reaction Status Date / Time Iodinated Contrast- Oral and Allergy Anaphylaxis Verified 08/18/18 07:46 IV Dye [Iodinated Contrast Media - IV Dye] Physical Exam Vitals: Vital Signs Temp Pulse Resp BP Pulse Ox 08/18/18 05:52 98.1 F 90 18 184/92 97 Intake and Output 08/17/18 08/18/18 08/18/18 22:59 06:59 14:59 Other: Weight 86.183 kg - Constitutional General appearance: no acute distress - EENT Eyes: EOMI - Neck Neck: no lymphadenopathy - Respiratory Respiratory: bilateral: CTA - Cardiovascular Rhythm: regular Heart sounds: normal: S1, S2 - Gastrointestinal General gastrointestinal: distended, tenderness - Neurologic Neurologic: CNII-XII intact - Musculoskeletal Musculoskeletal: gait normal Results CBC & Chem 7: 08/18/18 06:20 08/18/18 06:20 Labs: Abnormal Lab Results - Last 24 Hours (Table) 08/18/18 08/18/18 08/18/18 Range/Units 06:10 06:20 06:20 RBC 3.97 L (4.30-5.90) m/uL Hgb 12.2 L (13.0-17.5) gm/dL Hct 38.6 L (39.0-53.0) % Chloride 113 H (98-107) mmol/L Carbon Dioxide 18 L (22-30) mmol/L Glucose 134 H (74-99) mg/dL Amylase 134 H (30-110) U/L Urine Protein Trace H (Negative) Assessment and Plan (1) Crohns disease Current Visit: Yes Status: Acute Code(s): K50.90 - CROHN'S DISEASE, UNSPECIFIED, WITHOUT COMPLICATIONS SNOMED Code(s): 45846356 (2) Nausea and vomiting Current Visit: Yes Status: Acute Code(s): R11.2 - NAUSEA WITH VOMITING, UNSPECIFIED SNOMED Code(s): 56871822 (3) Opiate dependence Current Visit: No Status: Acute Code(s): F11.20 - OPIOID DEPENDENCE, UNCOMPLICATED SNOMED Code(s): 66739387 (4) Gout Current Visit: No Status: Chronic Code(s): M10.9 - GOUT, UNSPECIFIED SNOMED Code(s): 89734380 (5) Rheumatoid arthritis Current Visit: No Status: Chronic Code(s): M06.9 - RHEUMATOID ARTHRITIS, UNSPECIFIED SNOMED Code(s): 18172403 (6) Hypertension Current Visit: Yes Status: Acute Code(s): I10 - ESSENTIAL (PRIMARY) HYPERTENSION SNOMED Code(s): 08700076 Plan: continue appropriate Crohn's protocol. We'll reconcile medications. Check CBC and CMP in a.m. Await gastroneurology input. See orders otherwise.
[2018-08-18] MEDS ORDERED: amLODIPine 5 MG TAB PO SCH (09:00)
[2018-08-18] MEDS: CYCLOBENZAPRINE 10 MG TAB PO SCH ×2 (10:15→21:07)
[2018-08-18] MEDS: ALLOPURINOL 100 MG TAB PO SCH ×2 (10:15→21:07)
[2018-08-18] MEDS: SODIUM CHLORIDE 0.9% 1,000 ML IV SCH ×3 (11:13→23:29)
[2018-08-18] MEDS: MORPHINE SULFATE 4 MG/ML SYRINGE IV PRN ×3 (11:25→19:41)
[2018-08-18] MEDS ORDERED: amLODIPine 5 MG TAB PO STA (13:30)
--- NOTE | 2018-08-18 13:34 | P.CONS ---
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 Maintained on Humira every 2 weeks. Admitted with acute abdominal pain nonbloody diarrhea nausea 1 day. Last EGD colonoscopy October 2017 showed small gastric ulcer no recurrent Crohn's disease at anastomosis. KUB overall nonspecific but favored nonobstructive bowel gas pattern. MR enterography May 2018 entero-enteral intussusception within the jejunal the left upper quadrant secondary long segment bowel wall thickening proximally 6 cm. This likely represents skip lesion with history of known Crohn's disease. No current terminal ileitis. White count 6.9. Hemoglobin 12.2. Platelet 205. Amylase 134. Lipase 64. LFTs within normal limits. Lactic acid 1.6. Has only feels well passing bowel movements requesting diet advancement. Reports increased stressors in his personal life lately. Review of Systems ReConstitutional: Denies fever, chills, sweats, weight gain, or loss. HEENT: Negative for migraines, blurred vision or loss, earaches, drainage, tin nitus, oral mucosal lesions, dysphagia, or odynophagia. Cardiac: Negative for chest pain, arrhythmias, or palpitation. Respiratory: Negative for shortness of breath, hemoptysis, cough, or sputum production. Gastrointestinal: See HPI for pertinent findings. Genitourinary: Negative for hematuria, urgency, frequency, polyuria, dysuria, or penile discharge. Musculoskeletal: Negative for muscle aches, swelling, arthritis, and arthralgias. Neurologic: Negative for stroke or TIA. Endocrine: Negative for thyroid problems. Skin: Negative for rash or itching. Psychiatric: Negative history for depression and anxietyale Past Medical History Past Medical History: GERD/Reflux, Hypertension, Renal Disease, Rheumatoid Arthritis (RA), Skin Disorder, Supraventricular Tachycardia (SVT) Additional Past Medical History / Comment(s): hx CROHN'S (takes tresa), IBS, chronic diarrhea, migraines-just a couple, hx SVT with ablation, hx ulcers, anemia, generalized gout, kidney stones pt passed on his own, psoriasis, bilateral tinnitis., History of Any Multi-Drug Resistant Organisms: None Reported Year Discovered:: 11/29/2013 MDRO Source:: C-DIFF x 6 in Past Surgical History: Bowel Resection, Cardiac Ablation, Cholecystectomy, Heart Catheterization, Hernia Repair, Orthopedic Surgery, Tonsillectomy Additional Past Surgical History / Comment(s): partial gastrectomy (ulcers), bowel resections, fecal transplant, bilateral knee arthroscopic surgery, EGD/colonoscopies, R inguinal hernia repair, bilat cataract removal. Past Anesthesia/Blood Transfusion Reactions: Blood Transfusion Reaction, Motion Sickness Additional Past Anesthesia/Blood Transfusion Reaction / Comm: BLOOD TRANSFUSION- BROKE OUT IN HIVES age 21 Past Psychological History: Anxiety, Depression Smoking Status: Never smoker Past Alcohol Use History: Rare Past Drug Use History: None Reported - Past Family History Father Family Medical History: Dementia Additional Family Medical History / Comment(s): Father at the age of 86yrs. Mother Family Medical History: Myocardial Infarction ([place]), Pulmonary Embolus Additional Family Medical History / Comment(s): AGE 73-[place], STROKE DURING CARATID PROCEDURE Medications and Allergies Home Medications Medication Instructions Recorded Confirmed Type Orphenadrine Citrate [Orphenadrine 100 mg PO BID 12/08/17 08/18/18 History Citrate ER] amLODIPine [Norvasc] 5 mg PO DAILY 12/08/17 08/18/18 History Adalimumab [Humira Pen] 40 mg SQ Q14D 04/25/18 08/18/18 History Aspirin 325 mg PO DAILY PRN 05/05/18 08/18/18 History Febuxostat [Uloric] 80 mg PO DAILY 05/05/18 08/18/18 History Allergies Allergy/AdvReac Type Severity Reaction Status Date / Time Iodinated Contrast- Oral and Allergy Anaphylaxis Verified 08/18/18 07:46 IV Dye [Iodinated Contrast Media - IV Dye] Physical Exam Vitals: Vital Signs Temp Pulse Resp BP Pulse Ox 08/18/18 05:52 98.1 F 90 18 184/92 97 Intake and Output 08/17/18 08/18/18 08/18/18 22:59 06:59 14:59 Other: Weight 86.183 kg General appearance: The patient is alert, oriented, in no acute distress. HET: Head is normocephalic and atraumatic. Pupils are equal and reactive. Oropharynx is clear without lesions. Neck: Supple without lymphadenopathy. Trachea midline. Heart: S1 S2. Regular rate and rhythm. Lungs: No crackles or wheezes are heard. Abdomen: Soft, mildly bloated mild tenderness across mid abdomen with bowel sounds. No peritoneal signs. No palpable organomegaly or masses. Extremities: Normal skin color and turgor. No cyanosis, rash, ulceration, clubbing, or edema. Radial and pedal pulses are 2/4 bilaterally. Neurological: No focal deficits. Strength and sensation are grossly intact. Results CBC & Chem 7: 08/18/18 06:20 08/18/18 06:20 Labs: Abnormal Lab Results - Last 24 Hours (Table) 08/18/18 08/18/18 08/18/18 Range/Units 06:10 06:20 06:20 RBC 3.97 L (4.30-5.90) m/uL Hgb 12.2 L (13.0-17.5) gm/dL Hct 38.6 L (39.0-53.0) % Chloride 113 H (98-107) mmol/L Carbon Dioxide 18 L (22-30) mmol/L Glucose 134 H (74-99) mg/dL Amylase 134 H (30-110) U/L Urine Protein Trace H (Negative) Abdominal x-ray: report reviewed (Dr. Ribeiro) MRI - abdomen: report reviewed (May [address] Ribeiro) Assessment and Plan (1) Abdominal pain Narrative/Plan: 68-year-old gentleman with a history of IBS, RA, Crohn's ileitis with history of terminal ileum resection subsequent bowel resection for stricture disease maintained on Humira every 2 weeks admitted with acute abdominal pain. MRI enterography May 2018 reported entero-enteral intussusception within the jejunum of the left upper quadrant secondary to long segment bowel wall thickening up approximately 6 cm. Skip lesions noted consistent with patient's known history of Crohn's disease without terminal ileitis. Etiology of his presentation is multifactorial possible exacerbation of inflammatory bowel disease possible stress induced IBS patient reported increased stressors in his personal life underlying gastroenteritis cannot be excluded. Current Visit: Yes Status: Acute Code(s): R10.9 - UNSPECIFIED ABDOMINAL PAIN SNOMED Code(s): 76569706 (2) Crohns disease Current Visit: Yes Status: Acute Code(s): K50.90 - CROHN'S DISEASE, UNSPECIFIED, WITHOUT COMPLICATIONS SNOMED Code(s): 34159819 Plan: 1. Overall GI symptoms are better he is requesting diet advancement will allow a low residue diet. We'll obtain sed rate and CRP. No steroids for now. Continue with Humira. Patient states he was advised outpatient capsule study will check GI office to see if that study is being scheduled. For now continue synthetic supportive measures. If patient has development of increased abdominal pain fever or distention recommend general surgical consultation. At this time patient verbalized he would like to hold off on a general surgical consult considering his GI symptoms are improving. We'll continue to follow with you. Thank you for this kind referral and the opportunity to participate in the care of your patient. This consultation was discussed with Dr. Ribeiro. The impression and plan of care have been directed as dictated.
[2018-08-18] MEDS: methylPREDNISolone SOD SUCCI 40 MG/ML 1 ML VIAL IV SCH ×2 (15:40→23:30)
[2018-08-18] MEDS: ONDANSETRON 4 MG/2 ML VIAL IVP PRN (19:41)
[2018-08-18] MEDS: [UNRECOGNIZED DRUG - OTHER] SUBLINGUAL SCH (21:07)
[2018-08-18] MEDS: cloNIDine HCL 0.1 MG TAB PO SCH (21:07)
[2018-08-18] MEDS: SUBOXONE SUBLINGUAL SCH (21:07)
[2018-08-18] MEDS: ZOLPIDEM 5 MG TAB PO PRN (23:30)
[2018-08-19] MEDS: MORPHINE SULFATE 4 MG/ML SYRINGE IV PRN ×6 (01:20→23:15)
[2018-08-19] MEDS: SODIUM CHLORIDE 0.9% 1,000 ML IV SCH ×3 (01:20→21:23)
[2018-08-19] MEDS: cloNIDine HCL 0.1 MG TAB PO SCH ×2 (08:31→21:23)
[2018-08-19] MEDS: methylPREDNISolone SOD SUCCI 40 MG/ML 1 ML VIAL IV SCH ×3 (08:31→23:14)
[2018-08-19] MEDS: ALLOPURINOL 100 MG TAB PO SCH ×2 (08:31→21:23)
[2018-08-19] MEDS: amLODIPine 10 MG TAB PO SCH (08:32)
[2018-08-19] MEDS: CYCLOBENZAPRINE 10 MG TAB PO SCH ×2 (08:32→21:23)
--- NOTE | 2018-08-19 14:24 | PN ---
PROGRESS NOTE DATE OF CONSULTATION: 08/19/18 The patient is a 68-year-old pleasant white male with longstanding history of Crohn's disease for which he underwent terminal ileum resection for stricturing disease about 5 years ago. He had an upper endoscopy as well as colonoscopy last year which did not show any evidence of active Crohn's. The patient has been maintained on Humira for almost 4 years now. He was admitted to hospital in May with abdominal pain. A CT of the abdomen and pelvis done at that time showed intussusception. Subsequently, this was followed by an MR enterography on outpatient basis in May that showed a 6 cm area of small bowel in the distal ileum with mucosal thickening but no narrowing suspicious for Crohn's disease. The patient was subsequently scheduled for a small bowel capsule endoscopy, but insurance did not approved and, hence, the procedure was not done. In the meantime, he had an episode of severe abdominal pain associated with abdominal bloating, nausea, vomiting and some diarrhea and was admitted to the hospital for further evaluation. This morning he is feeling better. He still has abdominal pain. He reports further episodes of nausea, vomiting. He had about 5-6 loose watery bowel movements daily. Today, he did not have any. He reports no fever, chills, or night sweats. PHYSICAL EXAMINATION: He appears comfortable, in no apparent distress. Vital signs are stable. Blood pressure is 132/86, pulse rate 88 per minute and afebrile. HEENT examination unremarkable. Conjunctivae are pink. Sclerae anicteric. Oral cavity, no lesions. NECK: No JVD or lymph node enlargement. CHEST: Clear to auscultation. HEART: Regular rate and rhythm. ABDOMEN: Soft. Bowel sounds are positive. It was slightly distended. There was mild tenderness in the epigastric area. EXTREMITIES: No pedal edema. SKIN: No rashes. NEUROLOGIC: Alert and oriented x3. No focal deficits. LABS: From yesterday WBC of 6.9, hemoglobin 12.2, platelets are normal. Basic metabolic panel is within normal limits. Abdominal x-rays done yesterday in the emergency room showed nonobstructive bowel gas pattern. IMPRESSION: This is a patient with history of Crohn's disease involving the small bowel, who presents to the hospital with intermittent episodes of abdominal pain associated with some diarrhea on and off for the last several months duration. His last hospitalization was in April of this year. CT of the abdomen in April showed possible small-bowel intussusception. Subsequently, this was followed by a MR enterography in May that showed a 6 cm length of diffuse thickening of the small bowel in the distal ileum suspicious for Crohn's ileitis. His last EGD and colonoscopy done a year ago showed an anastomotic ulcer in the stomach, but colon and the ileocolonic anastomosis appeared normal. He is maintained on Humira once every 2 weeks for the last 4 years. Clinically, he does not have any bowel obstruction. Symptoms could be related to small bowel active Crohn's disease. RECOMMENDATION: 1. Clear liquid diet. 2. Schedule him for a small bowel capsule endoscopy while in the hospital. I discussed with the patient and he is agreeable to it. Thank you for this consultation. MMSULEMANL / VIVIANAN: [id number] /
[2018-08-19] MEDS: ONDANSETRON 4 MG/2 ML VIAL IVP PRN (14:38)
[2018-08-19] MEDS ORDERED: MAGNESIUM CITRATE 296 ML BOTTLE PO ONE (17:00)
[2018-08-19] MEDS: SUBOXONE SUBLINGUAL SCH (21:23)
[2018-08-19] MEDS: [UNRECOGNIZED DRUG - OTHER] SUBLINGUAL SCH (21:23)
[2018-08-19] MEDS: ZOLPIDEM 5 MG TAB PO PRN (23:14)
[2018-08-20] MEDS: SODIUM CHLORIDE 0.9% 1,000 ML IV SCH ×3 (04:18→20:45)
[2018-08-20] MEDS: MORPHINE SULFATE 4 MG/ML SYRINGE IV PRN ×4 (04:18→17:12)
[2018-08-20] MEDS: CYCLOBENZAPRINE 10 MG TAB PO SCH ×2 (08:03→20:45)
[2018-08-20] MEDS: ALLOPURINOL 100 MG TAB PO SCH ×2 (08:03→20:45)
[2018-08-20] MEDS: methylPREDNISolone SOD SUCCI 40 MG/ML 1 ML VIAL IV SCH ×3 (08:03→23:17)
[2018-08-20] MEDS: cloNIDine HCL 0.1 MG TAB PO SCH ×2 (08:03→20:45)
[2018-08-20] MEDS: amLODIPine 10 MG TAB PO SCH (08:03)
[2018-08-20 08:30] LABS: Basophils % (A) 0 %; Eosinophils % (A) 0 %; HCT 35.5 % (39.0-53.0); HGB 11.2 gm/dL (13.0-17.5); Lymphocytes # (A) 1.2 k/uL (1.0-4.8); Lymphocytes % (A) 16 %; MCH 30.7 pg (25.0-35.0); MCHC 31.6 g/dL (31.0-37.0); MCV 97.3 fL (80.0-100.0); Monocytes # (A) 0.2 k/uL (0-1.0); Monocytes % (A) 3 %; Neutrophils # (A) 5.9 k/uL (1.3-7.7); Neutrophils % (A) 80 %; Platelet Count 159 k/uL (150-450); RBC 3.65 m/uL (4.30-5.90); RDW 13.1 % (11.5-15.5); WBC 7.4 k/uL (3.8-10.6)
[2018-08-20 08:39] LABS: Anion Gap 6 mmol/L; Blood Urea Nitrogen 13 mg/dL (9-20); Calcium 8.2 mg/dL (8.4-10.2); Carbon Dioxide 25 mmol/L (22-30); Chloride 109 mmol/L (98-107); Glucose 127 mg/dL (74-99); Potassium 4.4 mmol/L (3.5-5.1); Sodium 140 mmol/L (137-145)
--- NOTE | 2018-08-20 09:32 | PN ---
PROGRESS NOTE DATE OF SERVICE: 08/20/2018 Patient is a 62-year-old pleasant white male admitted to the hospital with severe abdominal pain, abdominal bloating, some nausea, vomiting, and diarrhea of 2-3 days duration. Abdominal x-rays did not show any evidence of bowel obstruction. The patient has history of Crohn's disease involving the small bowel and maintained on Humira once every 2 weeks. MR enterography in May showed a 6 cm segment of small bowel in the distal ileum that has thickening suspicious for active Crohn's. He is scheduled for small bowel capsule endoscopy today. PHYSICAL EXAMINATION: Appears comfortable in no apparent distress. Vital signs stable. Blood pressure is 161/65, pulse rate 80, temperature 97. HEENT: examination unremarkable. Conjunctivae pink. Sclerae anicteric. Oral cavity no lesions. NECK: No jugular venous distention or lymph node enlargement. CHEST: Clear to auscultation. HEART: Regular rate and rhythm. ABDOMEN: Soft, it was distended. Bowel sounds are positive. No organomegaly. EXTREMITIES: No pedal edema. Skin no rashes. NEUROLOGIC: Alert and oriented x3. No focal deficits. LABS: Labs done 2 days ago, hemoglobin 12.2, WBC 6.9, and platelets are normal. IMPRESSION: Intermittent episodes of abdominal pain requiring hospitalization. The last one was in April of this year, history of Crohn's disease involving the small bowel, maintained on Humira 40 mg daily for 4 years. He is status post resection about 5 years ago. MR enterography in May of this year showed a 6 cm length in the distal ileum that had diffuse bowel wall thickening suspicious for active Crohn's. His symptoms are gradually improving. Currently on Solu-Medrol 20 mg every 8 hours and feeling much better. RECOMMENDATIONS: 1. We will proceed with a small bowel capsule endoscopy to assess Crohn's disease involving the small bowel. 2. Continue with current medications. 3. After the small bowel capsule endoscopy is done, we will advance diet as tolerated and change IV steroids to prednisone tomorrow if he continues to do well. 4. For now, we will follow him closely. Thank you for this consultation. MMODL / IJN: [id number] /
[2018-08-20] MEDS: ONDANSETRON 4 MG/2 ML VIAL IVP PRN (10:01)
--- NOTE | 2018-08-20 11:51 | P.PN ---
Subjective Progress Note Date: 08/19/18 68-year-old gentleman with a history of IBS, RA, history of opioid dependency presently maintained on Suboxone, Crohn's ileitis status post terminal ileal resection and subsequent surgeries for stricture of anastomosis. Maintained on Humira every 2 weeks. Admitted with acute abdominal pain nonbloody diarrhea nausea 1 day. Last EGD colonoscopy October 2017 showed small gastric ulcer no recurrent Crohn's disease at anastomosis. KUB overall nonspecific but favored nonobstructive bowel gas pattern. MR enterography May 2018 entero-enteral intussusception within the jejunal the left upper quadrant secondary long segment bowel wall thickening proximally 6 cm. This likely represents skip lesion with history of known Crohn's disease. No current terminal ileitis. White count 6.9. Hemoglobin 12.2. Platelet 205. Amylase 134. Lipase 64. LFTs within normal limits. Lactic acid 1.6. Has only feels well passing bowel movements requesting diet advancement. Reports increased stressors in his personal life lately. Objective - Vital Signs Vital signs: Vital Signs Temp 97.6 F 08/19/18 05:45 Pulse 75 08/19/18 05:45 Resp 14 08/19/18 05:45 BP 147/75 08/19/18 05:45 Pulse Ox 97 08/19/18 05:45 Intake & Output 08/18/18 08/19/18 08/19/18 18:59 06:59 18:59 Output Total 1 0 Balance -1 0 Output: Urine 1 Stool 0 0 Other: # Voids 1 - Exam General appearance: The patient is alert, oriented, in no acute distress. HET: Head is normocephalic and atraumatic. Pupils are equal and reactive. Oropharynx is clear without lesions. Neck: Supple without lymphadenopathy. Trachea midline. Heart: S1 S2. Regular rate and rhythm. Lungs: No crackles or wheezes are heard. Abdomen: Soft, mildly bloated mild tenderness across mid abdomen with bowel sounds. No peritoneal signs. No palpable organomegaly or masses. Extremities: Normal skin color and turgor. No cyanosis, rash, ulceration, clubbing, or edema. Radial and pedal pulses are 2/4 bilaterally. Neurological: No focal deficits. Strength and sensation are grossly intact. - Labs CBC & Chem 7: 08/20/18 07:57 08/20/18 07:57 Labs: Abnormal Lab Results - Last 24 Hours (Table) 08/18/18 Range/Units 06:20 ESR 19 H (0-15) mm/hr Assessment and Plan Assessment: 1. Abdominal Pain - history of IBS, RA, Crohn's ileitis with history of terminal ileum resection subsequent bowel resection for stricture disease maintained on Humira every 2 weeks admitted with acute abdominal pain. MRI enterography May 2018 reported entero-enteral intussusception within the jejunum of the left upper quadrant secondary to long segment bowel wall thickening up approximately 6 cm. Skip lesions noted consistent with patient's known history of Crohn's disease without terminal ileitis. - Etiology of his presentation is multifactorial possible exacerbation of inflammatory bowel disease possible stress induced IBS patient reported increased stressors in his personal life underlying gastroenteritis cannot be excluded. - Overall GI symptoms are better he is requesting diet advancement will allow a low residue diet. We'll obtain sed rate and CRP. No steroids for now. Continue with Humira. Patient states he was advised outpatient capsule study will check GI office to see if that study is being scheduled. For now continue synthetic supportive measures. If patient has development of increased abdominal pain fever or distention recommend general surgical consultation. At this time patient verbalized he would like to hold off on a general surgical consult considering his GI symptoms are improving. 2. Hypertension; stable 3. Rheumatoid Arthritis; not in exacerbation 4. DVT Ppx; SCDs Code Status; full code
--- NOTE | 2018-08-20 15:23 | P.PN ---
Subjective Progress Note Date: 08/20/18 68-year-old gentleman with a history of IBS, RA, history of opioid dependency presently maintained on Suboxone, Crohn's ileitis status post terminal ileal resection and subsequent surgeries for stricture of anastomosis. Maintained on Humira every 2 weeks. Admitted with acute abdominal pain nonbloody diarrhea nausea 1 day. Last EGD colonoscopy October 2017 showed small gastric ulcer no recurrent Crohn's disease at anastomosis. KUB overall nonspecific but favored nonobstructive bowel gas pattern. MR enterography May 2018 entero-enteral intussusception within the jejunal the left upper quadrant secondary long segment bowel wall thickening proximally 6 cm. This likely represents skip lesion with history of known Crohn's disease. No current terminal ileitis. White count 6.9. Hemoglobin 12.2. Platelet 205. Amylase 134. Lipase 64. LFTs within normal limits. Lactic acid 1.6. Has only feels well passing bowel movements requesting diet advancement. Reports increased stressors in his personal life lately. 08/20/2018 Patient is seen and evaluated in the room at bedside; patient is to undergo small bowel capsule endoscopy to assess Crohn's disease involving small bowel; GI is recommending to advance diet after capsule endoscopy and continue IV steroids for next 24 hours; patient will be switched to oral prednisone tomorrow Objective - Vital Signs Vital signs: Vital Signs Temp 97.5 F L 08/20/18 05:05 Pulse 61 08/20/18 05:05 Resp 20 08/20/18 05:05 BP 175/92 08/20/18 05:05 Pulse Ox 92 L 08/20/18 05:05 Intake & Output 08/19/18 08/20/18 08/20/18 18:59 06:59 18:59 Intake Total 200 Output Total 0 Balance 200 Intake: Oral 200 Output: Stool 0 Other: # Voids 3 1 - Exam General appearance: The patient is alert, oriented, in no acute distress. HET: Head is normocephalic and atraumatic. Pupils are equal and reactive. Oropharynx is clear without lesions. Neck: Supple without lymphadenopathy. Trachea midline. Heart: S1 S2. Regular rate and rhythm. Lungs: No crackles or wheezes are heard. Abdomen: Soft, mildly bloated mild tenderness across mid abdomen with bowel sounds. No peritoneal signs. No palpable organomegaly or masses. Extremities: Normal skin color and turgor. No cyanosis, rash, ulceration, clubbing, or edema. Radial and pedal pulses are 2/4 bilaterally. Neurological: No focal deficits. Strength and sensation are grossly intact. - Labs CBC & Chem 7: 08/20/18 07:57 08/20/18 07:57 Labs: Abnormal Lab Results - Last 24 Hours (Table) 08/20/18 08/20/18 Range/Units 07:57 07:57 RBC 3.65 L (4.30-5.90) m/uL Hgb 11.2 L (13.0-17.5) gm/dL Hct 35.5 L (39.0-53.0) % Chloride 109 H (98-107) mmol/L Glucose 127 H (74-99) mg/dL Calcium 8.2 L (8.4-10.2) mg/dL Assessment and Plan Assessment: 1. Abdominal Pain - history of IBS, RA, Crohn's ileitis with history of terminal ileum resection subsequent bowel resection for stricture disease maintained on Humira every 2 weeks admitted with acute abdominal pain. MRI enterography May 2018 reported entero-enteral intussusception within the jejunum of the left upper quadrant secondary to long segment bowel wall thickening up approximately 6 cm. Skip lesions noted consistent with patient's known history of Crohn's disease without terminal ileitis. - Etiology of his presentation is multifactorial possible exacerbation of inflammatory bowel disease possible stress induced IBS patient reported increased stressors in his personal life underlying gastroenteritis cannot be excluded. - Overall GI symptoms are better he is requesting diet advancement will allow a low residue diet. We'll obtain sed rate and CRP. No steroids for now. Co ntinue with Humira. Patient states he was advised outpatient capsule study will check GI office to see if that study is being scheduled. For now continue synthetic supportive measures. If patient has development of increased abdominal pain fever or distention recommend general surgical consultation. At this time patient verbalized he would like to hold off on a general surgical consult considering his GI symptoms are improving. 2. Hypertension; stable 3. Rheumatoid Arthritis; not in exacerbation 4. DVT Ppx; SCDs Code Status; full code Time with Patient: Greater than 30
[2018-08-20] MEDS: [UNRECOGNIZED DRUG - OTHER] SUBLINGUAL SCH (21:07)
[2018-08-20] MEDS: SUBOXONE SUBLINGUAL SCH (21:07)
[2018-08-21] MEDS: MORPHINE SULFATE 4 MG/ML SYRINGE IV PRN ×6 (00:08→22:22)
[2018-08-21] MEDS: ZOLPIDEM 5 MG TAB PO PRN ×2 (00:10→22:22)
[2018-08-21] MEDS: methylPREDNISolone SOD SUCCI 40 MG/ML 1 ML VIAL IV SCH ×2 (07:19→14:59)
[2018-08-21] MEDS: cloNIDine HCL 0.1 MG TAB PO SCH (07:20)
[2018-08-21] MEDS: amLODIPine 10 MG TAB PO SCH (07:20)
[2018-08-21] MEDS: CYCLOBENZAPRINE 10 MG TAB PO SCH ×2 (07:20→21:05)
[2018-08-21] MEDS: ALLOPURINOL 100 MG TAB PO SCH ×2 (07:20→21:05)
[2018-08-21] MEDS: SODIUM CHLORIDE 0.9% 1,000 ML IV SCH ×2 (07:21→15:00)
--- NOTE | 2018-08-21 08:12 | P.PN ---
Subjective Progress Note Date: 08/21/18 Principal diagnosis: Hypertension with Crohn's colitis flare This 68-year-old white male with known history of hypertension and gout and rheumatoid arthritis who comes in with Crohn's flareup. Capsule endoscopy was done. No new voiding difficulties except the patient has had minimal by mouth intake blood pressure still elevated systolic in the 180s. Otherwise no chest pain or shortness of breath no headache stated. Patient has not underlying history of opiate dependence and is taking Suboxone. Objective - Vital Signs Vital signs: Vital Signs Temp 97.8 F 08/21/18 04:55 Pulse 69 08/21/18 04:55 Resp 20 08/21/18 04:55 BP 185/86 08/21/18 04:55 Pulse Ox 92 L 08/21/18 04:55 Intake & Output 08/20/18 08/21/18 08/21/18 18:59 06:59 18:59 Intake Total 240 Output Total 1 Balance 239 Intake: Intake, IV Titration 240 Amount Sodium Chloride 0.9% 1, 240 000 ml @ 125 mls/hr IV . Q8H [facility] Rx#:[id number] Output: Stool 1 Other: # Voids 3 1 - Constitutional General appearance: Present: no acute distress - EENT Eyes: Absent: abnormal pupil - Respiratory Respiratory: bilateral: CTA - Cardiovascular Rhythm: regular Heart sounds: normal: S1, S2 Abnormal Heart Sounds: Absent: S3 Gallop - Gastrointestinal General gastrointestinal: Present: soft. Absent: tenderness - Integumentary Integumentary: Absent: cyanotic - Neurologic Neurologic: Present: CNII-XII intact - Psychiatric Psychiatric: Present: A&O x's 3, appropriate affect - Labs CBC & Chem 7: 08/20/18 07:57 08/20/18 07:57 Labs: Abnormal Lab Results - Last 24 Hours (Table) 08/20/18 08/20/18 Range/Units 07:57 07:57 RBC 3.65 L (4.30-5.90) m/uL Hgb 11.2 L (13.0-17.5) gm/dL Hct 35.5 L (39.0-53.0) % Chloride 109 H (98-107) mmol/L Glucose 127 H (74-99) mg/dL Calcium 8.2 L (8.4-10.2) mg/dL Assessment and Plan (1) Crohns disease Current Visit: Yes Status: Acute Code(s): K50.90 - CROHN'S DISEASE, UNSPECIFIED, WITHOUT COMPLICATIONS SNOMED Code(s): 81762470 (2) Nausea and vomiting Current Visit: Yes Status: Acute Code(s): R11.2 - NAUSEA WITH VOMITING, UNSPECIFIED SNOMED Code(s): 51695614 (3) Opiate dependence Current Visit: No Status: Acute Code(s): F11.20 - OPIOID DEPENDENCE, UNCOMPLICATED SNOMED Code(s): 15685664 (4) Gout Current Visit: No Status: Chronic Code(s): M10.9 - GOUT, UNSPECIFIED SNOMED Code(s): 20314852 (5) Rheumatoid arthritis Current Visit: No Status: Chronic Code(s): M06.9 - RHEUMATOID ARTHRITIS, UNSPECIFIED SNOMED Code(s): 84772957 (6) Hypertension Current Visit: Yes Status: Acute Code(s): I10 - ESSENTIAL (PRIMARY) HYPERTENSION SNOMED Code(s): 64321078 Plan: Continue current regimen of prednisone. Add start and increase clonidine to 0.2 mg by mouth daily. Check CMP in a.m. Anticipate discharge in next 2448 hours pending resolution. Time with Patient: Greater than 30
[2018-08-21] MEDS ORDERED: cloNIDine HCL 0.1 MG TAB PO STA (08:16)
[2018-08-21] MEDS: LOSARTAN 50 MG TAB PO SCH (08:27)
[2018-08-21] MEDS ORDERED: cloNIDine HCL 0.2 MG TAB PO SCH (09:00)
[2018-08-21 10:35] LABS: Basophils % (A) 0 %; Eosinophils % (A) 0 %; HCT 36.2 % (39.0-53.0); HGB 11.6 gm/dL (13.0-17.5); Lymphocytes # (A) 0.9 k/uL (1.0-4.8); Lymphocytes % (A) 10 %; MCH 31.4 pg (25.0-35.0); MCHC 32.1 g/dL (31.0-37.0); MCV 97.8 fL (80.0-100.0); Mean Platelet Volume 7.5; Monocytes # (A) 0.3 k/uL (0-1.0); Monocytes % (A) 3 %; Neutrophils # (A) 8.1 k/uL (1.3-7.7); Neutrophils % (A) 87 %; Platelet Count 176 k/uL (150-450); RDW 13.1 % (11.5-15.5); WBC 9.4 k/uL (3.8-10.6)
[2018-08-21 10:43] LABS: Anion Gap 7 mmol/L; Blood Urea Nitrogen 19 mg/dL (9-20); Calcium 8.7 mg/dL (8.4-10.2); Carbon Dioxide 25 mmol/L (22-30); Chloride 105 mmol/L (98-107); Glucose 188 mg/dL (74-99); Potassium 4.7 mmol/L (3.5-5.1); Sodium 137 mmol/L (137-145)
--- NOTE | 2018-08-21 20:03 | P.PN ---
Subjective Progress Note Date: 08/21/18 Principal diagnosis: Crohn's disease, diarrhea, abdominal pain Patient is seen lying in bed reporting that he is feeling somewhat better. Less abdominal pain reported. Tolerating his diet. Objective - Vital Signs Vital signs: Vital Signs Temp 96.8 F L 08/21/18 15:00 Pulse 67 08/21/18 15:00 Resp 16 08/21/18 15:00 BP 191/92 08/21/18 15:00 Pulse Ox 97 08/21/18 15:00 Intake & Output 08/21/18 08/21/18 08/22/18 06:59 18:59 06:59 Intake Total 240 Output Total 1 Balance 239 Intake: Intake, IV Titration 240 Amount Sodium Chloride 0.9% 1, 240 000 ml @ 125 mls/hr IV . Q8H [facility] Rx#:[id number] Output: Stool 1 Other: # Voids 1 2 # Bowel Movements 1 - Exam On physical examination, patient appears comfortable in no apparent distress. HEAD: Normocephalic, atraumatic. EYES: No scleral icterus. No conjunctival injection. MOUTH: No lesions, tongue midline. NECK: Trachea midline, no gross abnormalities. CHEST: Clear to auscultation with no wheezing or rhonchi appreciated. HEART: Regular rate and rhythm. ABDOMEN: Soft, obese. Bowel sounds are positive. No organomegaly. No guarding or rigidity. EXTREMITIES: No pedal edema. SKIN: No rashes, no jaundice. NEUROLOGIC: Alert and oriented x3. No focal deficits. - Labs CBC & Chem 7: 08/21/18 09:50 08/21/18 09:50 Labs: Abnormal Lab Results - Last 24 Hours (Table) 08/21/18 08/21/18 Range/Units 09:50 09:50 RBC 3.70 L (4.30-5.90) m/uL Hgb 11.6 L (13.0-17.5) gm/dL Hct 36.2 L (39.0-53.0) % Neutrophils # 8.1 H (1.3-7.7) k/uL Lymphocytes # 0.9 L (1.0-4.8) k/uL Glucose 188 H (74-99) mg/dL Assessment and Plan (1) Crohns disease Narrative/Plan: Patient with a history of Crohn's disease involving the small bowel was required hospitalization in the past for episodes of abdominal pain with the last occurring in April of this year. He has a history of Crohn's disease of the small bowel as mentioned currently on Humira 40 mg every second week for the past 4 years. He previously underwent resection for his disease approximately 5 years ago. He underwent an MR enterography in May for evaluation of his disease with findings of 6 cm of distal ileum that appeared inflamed and consistent with history of Crohn's and active disease. The patient has been started on steroid therapy in the hospital and reports improvement in his symptoms. Current Visit: Yes Status: Acute Code(s): K50.90 - CROHN'S DISEASE, UNSPECIFIED, WITHOUT COMPLICATIONS SNOMED Code(s): 19812749 (2) Abdominal pain Current Visit: Yes Status: Acute Code(s): R10.9 - UNSPECIFIED ABDOMINAL PAIN SNOMED Code(s): 30079095 (3) Nausea and vomiting Current Visit: Yes Status: Acute Code(s): R11.2 - NAUSEA WITH VOMITING, UNSPECIFIED SNOMED Code(s): 39493349 Plan: Supportive care Okay for diet Solu-Medrol changed to prednisone 40 mg daily Video capsule endoscopy ordered, results pending Patient will need follow-up after discharge with Dr. Yancey of the gastroenterology service, with plans to continue Humira therapy at this time Thank you for allowing us to participate in the care of the patient we will continue to follow
[2018-08-21 20:51] VITALS: PULSE 60
[2018-08-21] MEDS: cloNIDine HCL 0.2 MG TAB PO SCH (21:05)
[2018-08-21] MEDS: SUBOXONE SUBLINGUAL SCH (21:05)
[2018-08-21] MEDS: [UNRECOGNIZED DRUG - OTHER] SUBLINGUAL SCH (21:05)
[2018-08-22] MEDS: SODIUM CHLORIDE 0.9% 1,000 ML IV SCH ×3 (00:07→14:08)
[2018-08-22] MEDS: MORPHINE SULFATE 4 MG/ML SYRINGE IV PRN ×3 (02:29→12:29)
[2018-08-22 04:35] VITALS: BP 189/96; RESP 17; TEMP 97.9
[2018-08-22] MEDS: ALLOPURINOL 100 MG TAB PO SCH (07:49)
[2018-08-22] MEDS: CYCLOBENZAPRINE 10 MG TAB PO SCH (07:50)
[2018-08-22] MEDS: LOSARTAN 50 MG TAB PO SCH (07:50)
[2018-08-22] MEDS: amLODIPine 10 MG TAB PO SCH (07:50)
[2018-08-22] MEDS: cloNIDine HCL 0.2 MG TAB PO SCH (07:50)
[2018-08-22] MEDS ORDERED: predniSONE 20 MG TAB PO SCH (09:00)
[2018-08-22 09:06] LABS: HCT 38.3 % (39.0-53.0); HGB 12.1 gm/dL (13.0-17.5); MCH 30.6 pg (25.0-35.0); MCHC 31.6 g/dL (31.0-37.0); Mean Platelet Volume 7.2; Platelet Count 171 k/uL (150-450); RBC 3.95 m/uL (4.30-5.90); RDW 12.8 % (11.5-15.5); WBC 9.8 k/uL (3.8-10.6)
[2018-08-22 09:22] LABS: ALT 63 U/L (21-72); AST 62 U/L (17-59); Albumin 3.7 g/dL (3.5-5.0); Alkaline Phosphatase 41 U/L (38-126); Anion Gap 9 mmol/L; Blood Urea Nitrogen 21 mg/dL (9-20); Calcium 9.1 mg/dL (8.4-10.2); Carbon Dioxide 27 mmol/L (22-30); Chloride 101 mmol/L (98-107); Glucose 181 mg/dL (74-99); Potassium 3.9 mmol/L (3.5-5.1); Sodium 137 mmol/L (137-145); Total Bilirubin 0.9 mg/dL (0.2-1.3); Total Protein 6.9 g/dL (6.3-8.2)
--- NOTE | 2018-08-22 09:58 | P.PN ---
Subjective Progress Note Date: 08/22/18 Principal diagnosis: Abdominal pain history of Crohn's 68-year-old gentleman history of Crohn's maintained on Humira. Capsule endoscopy completed results are pending. Presently no complaints. Afebrile. White count 9.8. Hemoglobin 12.1. Receiving prednisone 40 mg daily. Objective - Vital Signs Vital signs: Vital Signs Temp 97.9 F 08/22/18 04:35 Pulse 60 08/22/18 04:35 Resp 17 08/22/18 04:35 BP 189/96 08/22/18 04:35 Pulse Ox 96 08/22/18 04:35 Intake & Output 08/21/18 08/22/18 08/22/18 18:59 06:59 18:59 Intake Total 400 Balance 400 Intake: Intake, IV Titration 400 Amount Sodium Chloride 0.9% 1, 400 000 ml @ 125 mls/hr IV . Q8H [facility] Rx#:[id number] Other: # Voids 2 2 # Bowel Movements 1 - Exam General appearance: The patient is alert, oriented, in no acute distress. HET: Head is normocephalic and atraumatic. Pupils are equal and reactive. Oropharynx is clear without lesions. Neck: Supple without lymphadenopathy. Trachea midline. Heart: S1 S2. Regular rate and rhythm. Lungs: No crackles or wheezes are heard. Abdomen: Soft, nontender, nondistended with bowel sounds. No peritoneal signs. No palpable organomegaly or masses. Extremities: Normal skin color and turgor. No cyanosis, rash, ulceration, clubbing, or edema. Radial and pedal pulses are 2/4 bilaterally. Neurological: No focal deficits. Strength and sensation are grossly intact. - Labs CBC & Chem 7: 08/22/18 08:50 08/22/18 08:50 Labs: Abnormal Lab Results - Last 24 Hours (Table) 08/21/18 08/21/18 08/22/18 Range/Units 09:50 09:50 08:50 RBC 3.70 L 3.95 L (4.30-5.90) m/uL Hgb 11.6 L 12.1 L (13.0-17.5) gm/dL Hct 36.2 L 38.3 L (39.0-53.0) % Neutrophils # 8.1 H (1.3-7.7) k/uL Lymphocytes # 0.9 L (1.0-4.8) k/uL BUN (9-20) mg/dL Glucose 188 H (74-99) mg/dL AST (17-59) U/L 08/22/18 Range/Units 08:50 RBC (4.30-5.90) m/uL Hgb (13.0-17.5) gm/dL Hct (39.0-53.0) % Neutrophils # (1.3-7.7) k/uL Lymphocytes # (1.0-4.8) k/uL BUN 21 H (9-20) mg/dL Glucose 181 H (74-99) mg/dL AST 62 H (17-59) U/L Assessment and Plan (1) Abdominal pain Narrative/Plan: Patient with a history of Crohn's disease involving the small bowel was required hospitalization in the past for episodes of abdominal pain with the last occurring in April of this year. He has a history of Crohn's disease of the small bowel as mentioned currently on Humira 40 mg every second week for the past 4 years. He previously underwent resection for his disease approximately 5 years ago. He underwent an MR enterography in May for evaluation of his disease with findings of 6 cm of distal ileum that appeared inflamed and consistent with history of Crohn's and active disease. The patient has been started on steroid therapy in the hospital and reports improvement in his s ymptoms. Current Visit: Yes Status: Acute Code(s): R10.9 - UNSPECIFIED ABDOMINAL PAIN SNOMED Code(s): 16712242 (2) Crohns disease Current Visit: Yes Status: Acute Code(s): K50.90 - CROHN'S DISEASE, UNSPECIFIED, WITHOUT COMPLICATIONS SNOMED Code(s): 18342359 Plan: 1. [employer] will review capsule study. For now continue with present medical therapy. Present is on 40 mg daily with 5 mg taper every 7 days. Return to office in 3-4 weeks for reevaluation with Dr. Yancey. Continue with Humira therapy. Discharge planning per medicine. Assessment and plan a care discussed with Dr. Ribeiro
--- NOTE | 2018-08-22 13:20 | P.DS ---
Providers Date of admission: 08/20/18 14:38 Attending physician: Minh Saldaña Consults: 08/18/18 07:05 Consult Physician Urgent Consulting Provider: Laura Yancey Consult Reason/Comments: Crohns flair Do you want consulting provider notified?: Yes Primary care physician: Minh Saldaña - Discharge Diagnosis(es) (1) Crohns disease Current Visit: Yes Status: Acute (2) Nausea and vomiting Current Visit: Yes Status: Acute (3) Opiate dependence Current Visit: No Status: Acute (4) Gout Current Visit: No Status: Chronic (5) Rheumatoid arthritis Current Visit: No Status: Chronic (6) Hypertension Current Visit: Yes Status: Acute Hospital Course: The patient is discharged essentially for Crohn's colitis flareup. Patient Condition at Discharge: Stable Plan - Discharge Summary New Discharge Prescriptions: No Action amLODIPine [Norvasc] 5 mg PO DAILY Orphenadrine Citrate [Orphenadrine Citrate ER] 100 mg PO BID Adalimumab [Humira Pen] 40 mg SQ Q14D Aspirin 325 mg PO DAILY PRN PRN Reason: Pain Febuxostat [Uloric] 80 mg PO DAILY Discharge Medication List Orphenadrine Citrate [Orphenadrine Citrate ER] 100 mg PO BID 12/08/17 [History] amLODIPine [Norvasc] 5 mg PO DAILY 12/08/17 [History] Adalimumab [Humira Pen] 40 mg SQ Q14D 04/25/18 [History] Aspirin 325 mg PO DAILY PRN 05/05/18 [History] Febuxostat [Uloric] 80 mg PO DAILY 05/05/18 [History] Follow up Appointment(s)/Referral(s): Minh Saldaña MD [Primary Care Provider] - 1-2 days Discharge Disposition: HOME SELF-CARE
== END 2018-08-22 14:15 | disposition home or self-care (01) | DRG 386 ==
LOC: EC 05:36 → 4MS4W 07:29 → 4SSUR 10:21 → 4MS4W 11:53 → OBSVTOIN 08-20 14:38
PROVIDERS: ADMIT Family Medicine; ATTEND Family Medicine
PROC: 0DJ07ZZ Inspection of Upper Intestinal Tract, Via Natural or Artificial Opening (ICD-10-PCS; principal; 2018-08-21)
DX: K50.00 Crohn's disease of small intestine without complications (principal); F11.20 Opioid dependence, uncomplicated; F41.9 Anxiety disorder, unspecified; F32.9 Major depressive disorder, single episode, unspecified; I10 Essential (primary) hypertension; K21.9 Gastro-esophageal reflux disease without esophagitis; M10.9 Gout, unspecified; M06.9 Rheumatoid arthritis, unspecified; L40.9 Psoriasis, unspecified; Z90.89 Acquired absence of other organs; Z90.49 Acquired absence of other specified parts of digestive tract; Z98.890 Other specified postprocedural states; Z98.42 Cataract extraction status, left eye; Z87.442 Personal history of urinary calculi; Z86.19 Personal history of other infectious and parasitic diseases; Z98.41 Cataract extraction status, right eye; Z82.49 Family history of ischemic heart disease and other diseases of the circulatory system; Z82.3 Family history of stroke; Z81.8 Family history of other mental and behavioral disorders; Z79.899 Other long term (current) drug therapy; Z79.82 Long term (current) use of aspirin; Z91.041 Radiographic dye allergy status; Z87.448 Personal history of other diseases of urinary system; Z86.79 Personal history of other diseases of the circulatory system
CPT/HCPCS: 36415; 74018; 80048; 80053; 81003; 82150; 83605; 83690; 85025; 85027; 85652; 86140; 91110; 96361; 96374; 96375; 96376; 99285

== ENCOUNTER 2018-12-12 04:37 | Inpatient (IN) | payer BC, MEDICARE ==
[2018-12-12] MEDS ORDERED: methylPREDNISolone SOD SUCCI 125 MG/2 ML VIAL IV STA (05:51)
[2018-12-12] MEDS ORDERED: ONDANSETRON 4 MG/2 ML VIAL IVP STA (05:51)
[2018-12-12] MEDS ORDERED: MORPHINE SULFATE 4 MG/ML SYRINGE IV STA (05:51)
--- NOTE | 2018-12-12 05:51 | ED ---
Abdominal Pain HPI - General Chief Complaint: Abdominal Pain Stated Complaint: Abd Pain Time Seen by Provider: 12/12/18 05:18 Source: patient Mode of arrival: ambulatory Limitations: no limitations - History of Present Illness Initial Comments: Patient is 68-year-old man with history of Crohn's disease who believes he is having a flareup of the same. He states that he started having diarrhea yesterday in the afternoon. He has had multiple bowel movements consisting of small amount of stool also with mucus. He has not noted blood or dark tarry sto ols. Following that he also started having generalized abdominal cramping which she states is consistent with the his usual Crohn's flare. He also had a couple of episodes of vomiting without seeing any blood. MD Complaint: abdominal pain Onset/Timin -: hour(s) Location: diffuse Radiation: none Severity: moderate Quality: cramping Consistency: intermittent Improves With: nothing Worsens With: nothing Associated Symptoms: nausea, vomiting, diarrhea - Related Data Home Medications Medication Instructions Recorded Confirmed Orphenadrine Citrate [Orphenadrine 100 mg PO BID 12/08/17 12/12/18 Citrate ER] Adalimumab [Humira Pen] 40 mg SQ Q14D 04/25/18 12/12/18 Aspirin 325 mg PO DAILY PRN 05/05/18 12/12/18 Febuxostat [Uloric] 80 mg PO DAILY 05/05/18 12/12/18 Buprenorphine HCl/Naloxone HCl 1 film SL DAILY@1700 12/12/18 12/12/18 [Suboxone 2 mg-0.5 mg Sl Film] Omeprazole 20 mg PO AC-BID 12/12/18 12/12/18 Previous Rx's Medication Instructions Recorded amLODIPine [Norvasc] 10 mg PO DAILY #60 tab 08/22/18 Allergies Allergy/AdvReac Type Severity Reaction Status Date / Time Iodinated Contrast- Oral and Allergy Anaphylaxis Verified 12/12/18 06:46 IV Dye [Iodinated Contrast Media - IV Dye] Review of Systems ROS Statement: Those systems with pertinent positive or pertinent negative responses have been documented in the HPI. ROS Other: All systems not noted in ROS Statement are negative. Constitutional: Reports: chills. Denies: fever Respiratory: Denies: cough, dyspnea Cardiovascular: Denies: chest pain, palpitations, edema Gastrointestinal: Reports: abdominal pain, nausea, vomiting, diarrhea. Denies: constipation, hematemesis, melena, hematochezia Genitourinary: Denies: dysuria, hematuria, discharge, testicular pain Musculoskeletal: Denies: back pain Skin: Denies: rash, pruritus Neurological: Denies: headache, weakness Past Medical History Past Medical History: GERD/Reflux, Hypertension, Renal Disease, Rheumatoid Arthritis (RA), Skin Disorder, Supraventricular Tachycardia (SVT) Additional Past Medical History / Comment(s): hx CROHN'S (takes tresa), IBS, chronic diarrhea, migraines-just a couple, hx SVT with ablation, hx ulcers, anemia, generalized gout, kidney stones pt passed on his own, psoriasis, bilateral tinnitis., History of Any Multi-Drug Resistant Organisms: None Reported Date of last positivie culture/infection: 11/29/2013 MDRO Source:: C-DIFF x 6 in Past Surgical History: Bowel Resection, Cardiac Ablation, Cholecystectomy, Heart Catheterization, Hernia Repair, Orthopedic Surgery, Tonsillectomy Additional Past Surgical History / Comment(s): partial gastrectomy (ulcers), bowel resections, fecal transplant, bilateral knee arthroscopic surgery, EGD/colonoscopies, R inguinal hernia repair, bilat cataract removal. Past Anesthesia/Blood Transfusion Reactions: Blood Transfusion Reaction, Motion Sickness Additional Past Anesthesia/Blood Transfusion Reaction / Comment(s): BLOOD TRANSFUSION- BROKE OUT IN HIVES age 21 Past Psychological History: Anxiety, Depression Smoking Status: Never smoker Past Alcohol Use History: Rare Past Drug Use History: None Reported - Past Family History Father Family Medical History: Dementia Additional Family Medical History / Comment(s): Father at the age of 86yrs. Mother Family Medical History: Myocardial Infarction (CT), Pulmonary Embolus Additional Family Medical History / Comment(s): AGE 73-CT, STROKE DURING CARATID PROCEDURE General Exam Limitations: no limitations General appearance: alert, in no apparent distress Head exam: Present: atraumatic, normocephalic Eye exam: Present: normal appearance. Absent: scleral icterus, conjunctival injection ENT exam: Present: normal oropharynx Neck exam: Present: normal inspection Respiratory exam: Present: normal lung sounds bilaterally. Absent: respiratory distress, wheezes, rales, rhonchi, stridor Cardiovascular Exam: Present: regular rate, normal rhythm, normal heart sounds. Absent: systolic murmur, diastolic murmur, rubs, gallop GI/Abdominal exam: Present: soft, hyperactive bowel sounds. Absent: distended, tenderness, guarding, rebound, rigid, mass, pulsatile mass, hernia Extremities exam: Present: normal inspection, normal capillary refill. Absent: pedal edema, calf tenderness Back exam: Present: normal inspection. Absent: CVA tenderness (R), CVA tenderness (L) Neurological exam: Present: alert Skin exam: Present: warm, dry, intact, normal color. Absent: rash Course Vital Signs 12/12/18 04:40 Temperature 97.8 F Pulse Rate 69 Respiratory 16 Rate Blood Pressure 175/86 O2 Sat by Pulse 98 Oximetry Medical Decision Making - Medical Decision Making Patient's case discussed with Dr. Saldaña who will admit for symptom control and further evaluation. - Lab Data Result diagrams: 12/12/18 06:23 12/12/18 06:23 Disposition Clinical Impression: Crohns disease, Abdominal pain Disposition: ADMITTED IP TO THIS HOSP Condition: Fair Is patient prescribed a controlled substance at d/c from ED?: No
[2018-12-12] MEDS ORDERED: NALOXONE 0.4 MG/ML 1 ML VIAL IV PRN (06:13)
[2018-12-12] MEDS ORDERED: ASPIRIN 325 MG TAB PO PRN (06:15)
[2018-12-12] MEDS ORDERED: ADALIMUMAB 40 MG SQ SCH (06:15)
[2018-12-12 06:45] LABS: Basophils % (A) 1 %; Eosinophils # (A) 0.2 k/uL (0-0.7); Eosinophils % (A) 3 %; HGB 11.7 gm/dL (13.0-17.5); Lymphocytes # (A) 1.7 k/uL (1.0-4.8); Lymphocytes % (A) 28 %; MCH 32.1 pg (25.0-35.0); MCHC 33.3 g/dL (31.0-37.0); MCV 96.4 fL (80.0-100.0); Mean Platelet Volume 6.4; Monocytes # (A) 0.4 k/uL (0-1.0); Monocytes % (A) 7 %; Neutrophils # (A) 3.5 k/uL (1.3-7.7); Neutrophils % (A) 59 %; Platelet Count 175 k/uL (150-450); RBC 3.63 m/uL (4.30-5.90); RDW 12.7 % (11.5-15.5); WBC 5.9 k/uL (3.8-10.6)
[2018-12-12 06:57] LABS: Albumin 3.4 g/dL (3.5-5.0); Calcium 9.1 mg/dL (8.4-10.2); Potassium 4.3 mmol/L (3.5-5.1); Total Bilirubin 0.4 mg/dL (0.2-1.3); Total Protein 6.8 g/dL (6.3-8.2)
--- NOTE | 2018-12-12 07:18 | XR ---
EXAM: XR Abdomen, 1 View CLINICAL HISTORY: ITS.REASON XR Reason: abdominal pain TECHNIQUE: Frontal supine view of the abdomen/pelvis. COMPARISON: No relevant prior studies available. FINDINGS: Gastrointestinal tract: Unremarkable. No dilation. Bones/joints: Unremarkable. IMPRESSION: Normal abdominal x-ray.
--- NOTE | 2018-12-12 07:25 | P.HPIM ---
History of Present Illness H&P Date: 12/12/18 Chief Complaint: Abdominal pain. This is a history and physical 68-year-old white male who hasn't underlying history of Crohn's colitis gout opiate dependence who has been on biologic agents in the past. He was recently discharged in the last 3 months for similar symptomatology. He now comes in with significant nausea and abdominal pain and bloating. All medications have been ineffective. No significant fever or chills stated. He is essentially admitted for exacerbation of Crohn's colitis. Review of Systems Constitutional: Denies chills, Denies fever Eyes: denies blurred vision, denies pain Ears, nose, mouth and throat: Denies headache, Denies sore throat Cardiovascular: Denies chest pain, Denies shortness of breath Respiratory: Denies cough Gastrointestinal: Reports as per HPI, Reports bloating, Reports dyspepsia, Reports nausea, Reports vomiting Musculoskeletal: Denies myalgias Integumentary: Denies pruritus, Denies rash Neurological: Denies numbness, Denies weakness Psychiatric: Denies anxiety, Denies depression Past Medical History Past Medical History: GERD/Reflux, Hypertension, Renal Disease, Rheumatoid Arthritis (RA), Skin Disorder, Supraventricular Tachycardia (SVT) Additional Past Medical History / Comment(s): hx CROHN'S (takes tresa), IBS, chronic diarrhea, migraines-just a couple, hx SVT with ablation, hx ulcers, anemia, generalized gout, kidney stones pt passed on his own, psoriasis, bilateral tinnitis., History of Any Multi-Drug Resistant Organisms: None Reported Date of last positivie culture/infection: 11/29/2013 MDRO Source:: C-DIFF x 6 in Past Surgical History: Bowel Resection, Cardiac Ablation, Cholecystectomy, Heart Catheterization, Hernia Repair, Orthopedic Surgery, Tonsillectomy Additional Past Surgical History / Comment(s): partial gastrectomy (ulcers), bowel resections, fecal transplant, bilateral knee arthroscopic surgery, EGD/colonoscopies, R inguinal hernia repair, bilat cataract removal. Past Anesthesia/Blood Transfusion Reactions: Blood Transfusion Reaction, Motion Sickness Additional Past Anesthesia/Blood Transfusion Reaction / Comment(s): BLOOD TRANSFUSION- BROKE OUT IN [place]ES age 21 Past Psychological History: Anxiety, Depression Smoking Status: Never smoker Past Alcohol Use History: Rare Past Drug Use History: None Reported - Past Family History Father Family Medical History: Dementia Additional Family Medical History / Comment(s): Father at the age of 86yrs. Mother Family Medical History: Myocardial Infarction ([place]), Pulmonary Embolus Additional Family Medical History / Comment(s): AGE 73-[place], STROKE DURING CARATID PROCEDURE Medications and Allergies Home Medications Medication Instructions Recorded Confirmed Type Orphenadrine Citrate [Orphenadrine 100 mg PO BID 12/08/17 12/12/18 History Citrate ER] Adalimumab [Humira Pen] 40 mg SQ Q14D 04/25/18 12/12/18 History Aspirin 325 mg PO DAILY PRN 05/05/18 12/12/18 History Febuxostat [Uloric] 80 mg PO DAILY 05/05/18 12/12/18 History amLODIPine [Norvasc] 10 mg PO DAILY #60 tab 08/22/18 12/12/18 Rx Buprenorphine HCl/Naloxone HCl 1 film SL DAILY@1700 12/12/18 12/12/18 History [Suboxone 2 mg-0.5 mg Sl Film] Omeprazole 20 mg PO AC-BID 12/12/18 12/12/18 History Allergies Allergy/AdvReac Type Severity Reaction Status Date / Time Iodinated Contrast- Oral and Allergy Anaphylaxis Verified 12/12/18 06:46 IV Dye [Iodinated Contrast Media - IV Dye] Physical Exam Vitals: Vital Signs Temp Pulse Resp BP Pulse Ox 12/12/18 04:40 97.8 F 69 16 175/86 98 Intake and Output 12/11/18 12/12/18 12/12/18 22:59 06:59 14:59 Other: Weight 84.822 kg - Constitutional General appearance: no acute distress - EENT Eyes: EOMI - Neck Neck: no lymphadenopathy - Respiratory Respiratory: bilateral: CTA - Cardiovascular Rhythm: regular Heart sounds: normal: S1, S2 - Gastrointestinal General gastrointestinal: hyperactive bowel sounds, tenderness - Neurologic Neurologic: CNII-XII intact, focal deficits Results CBC & Chem 7: 12/12/18 06:23 12/12/18 06:23 Labs: Abnormal Lab Results - Last 24 Hours (Table) 12/12/18 12/12/18 Range/Units 06:23 06:23 RBC 3.63 L (4.30-5.90) m/uL Hgb 11.7 L (13.0-17.5) gm/dL Hct 35.0 L (39.0-53.0) % Chloride 110 H (98-107) mmol/L Carbon Dioxide 21 L (22-30) mmol/L Glucose 130 H (74-99) mg/dL AST 65 H (17-59) U/L Albumin 3.4 L (3.5-5.0) g/dL Assessment and Plan (1) Abdominal pain Current Visit: No Status: Acute Code(s): R10.9 - UNSPECIFIED ABDOMINAL PAIN SNOMED Code(s): 20652295 (2) Crohn's colitis Current Visit: No Status: Acute Code(s): K50.10 - CROHN'S DISEASE OF LARGE INTESTINE WITHOUT COMPLICATIONS SNOMED Code(s): 43129814 (3) History of Clostridium difficile colitis Current Visit: No Status: Acute Code(s): Z86.19 - PERSONAL HISTORY OF OTHER INFECTIOUS AND PARASITIC DISEASES SNOMED Code(s): 900535249 (4) Hypertension Current Visit: No Status: Acute Code(s): I10 - ESSENTIAL (PRIMARY) HYPERTENSION SNOMED Code(s): 52395367 (5) Opiate dependence Current Visit: No Status: Acute Code(s): F11.20 - OPIOID DEPENDENCE, UNCOMPLICATED SNOMED Code(s): 73823421 (6) Gout Current Visit: No Status: Chronic Code(s): M10.9 - GOUT, UNSPECIFIED SNOMED Code(s): 90874522 Plan: Placed on appropriate steroid protocol. The patient has been requested to bring his home Suboxone. Check CBC and CMP in a.m. We will consult gastroenterology if necessary or his symptoms worsen. See orders otherwise.
[2018-12-12] MEDS: ACETAMINOPHEN TAB 325 MG TAB PO PRN (08:23)
[2018-12-12 08:29] LABS: Appearance,Urine Clear (Clear); Bilirubin,Urine Negative (Negative); Blood,Urine Negative (Negative); Color,Urine Light Yellow; Glucose,Urine (UA) Negative (Negative); Ketones,Urine Negative (Negative); Leukocyte Esterase,Urine Negative (Negative); Nitrite,Urine Negative (Negative); PH, Urine 5.5 (5.0-8.0); Protein,Urine Negative (Negative); Urobilinogen,Urine <2.0 mg/dL (<2.0)
[2018-12-12] MEDS ORDERED: predniSONE 20 MG TAB PO SCH (09:00)
[2018-12-12] MEDS: FAMOTIDINE 20 MG TAB PO SCH ×2 (10:20→20:30)
[2018-12-12] MEDS: CYCLOBENZAPRINE 10 MG TAB PO SCH ×2 (10:20→20:31)
[2018-12-12] MEDS: amLODIPine 10 MG TAB PO SCH (10:20)
[2018-12-12] MEDS: cloNIDine HCL 0.2 MG TAB PO SCH ×2 (10:20→20:30)
[2018-12-12] MEDS: MORPHINE SULFATE 4 MG/ML SYRINGE IV PRN ×3 (10:23→20:40)
[2018-12-12] MEDS: SODIUM CHLORIDE 0.9% 1,000 ML IV SCH ×3 (10:25→22:42)
[2018-12-12 11:15] VITALS: BMI 23.9
[2018-12-12] MEDS: ALLOPURINOL 100 MG TAB PO SCH ×2 (11:21→20:29)
[2018-12-12] MEDS: ONDANSETRON 4 MG/2 ML VIAL IVP PRN ×2 (11:21→20:33)
[2018-12-12] MEDS: Buprenorphine Hcl/Naloxone Hcl [Suboxone 2 Mg-0.5 Mg Sl Film] SUBLINGUAL SCH (16:46)
[2018-12-12] MEDS ORDERED: Buprenorphine Hcl/Naloxone Hcl [Suboxone 2 Mg-0.5 Mg Sl Film] SL SCH (17:00)
[2018-12-13] MEDS: SODIUM CHLORIDE 0.9% 1,000 ML IV SCH ×4 (01:40→23:19)
[2018-12-13] MEDS: MORPHINE SULFATE 4 MG/ML SYRINGE IV PRN ×2 (01:41→06:18)
[2018-12-13] MEDS: ONDANSETRON 4 MG/2 ML VIAL IVP PRN (06:18)
--- NOTE | 2018-12-13 08:41 | P.PN ---
Subjective Progress Note Date: 12/13/18 Principal diagnosis: This continue present 60-year-old white male essentially admitted for Crohn's colitis. The patient's abdominal pain is improving. We will go ahead and titrate site Medrol today. Otherwise, acute chest reaction from [facility] is been living with them due to job loss. Otherwise no new complaints stated. Objective - Vital Signs Vital signs: Vital Signs Temp 97.8 F 12/13/18 07:00 Pulse 61 12/13/18 07:00 Resp 15 12/13/18 07:00 BP 133/74 12/13/18 07:00 Pulse Ox 96 12/13/18 07:00 Intake & Output 12/12/18 12/13/18 12/13/18 18:59 06:59 18:59 Intake Total 180 1500 Balance 180 1500 Intake: Intake, IV Titration 1500 Amount Sodium Chloride 0.9% 1, 1500 000 ml @ 150 mls/hr IV . Q6H40M [facility] Rx#:[id number] Oral 180 Other: Voiding Method Toilet # Voids 1 1 - Constitutional General appearance: Present: average body habitus - EENT Eyes: Absent: abnormal pupil - Neck Neck: Absent: lymphadenopathy - Respiratory Respiratory: bilateral: CTA - Cardiovascular Rhythm: regular Heart sounds: normal: S1, S2 Abnormal Heart Sounds: Absent: S3 Gallop - Gastrointestinal General gastrointestinal: Present: distended, hyperactive bowel sounds - Integumentary Integumentary: Absent: cellulitis - Neurologic Neurologic: Present: CNII-XII intact - Labs CBC & Chem 7: 12/12/18 06:23 12/12/18 06:23 Assessment and Plan (1) Abdominal pain Current Visit: Yes Status: Acute Code(s): R10.9 - UNSPECIFIED ABDOMINAL PAIN SNOMED Code(s): 15556922 (2) Crohn's colitis Current Visit: No Status: Acute Code(s): K50.10 - CROHN'S DISEASE OF LARGE INTESTINE WITHOUT COMPLICATIONS SNOMED Code(s): 38380050 (3) History of Clostridium difficile colitis Current Visit: No Status: Acute Code(s): Z86.19 - PERSONAL HISTORY OF OTHER INFECTIOUS AND PARASITIC DISEASES SNOMED Code(s): 636545949 (4) Hypertension Current Visit: No Status: Acute Code(s): I10 - ESSENTIAL (PRIMARY) HYPERTENSION SNOMED Code(s): 83596715 (5) Opiate dependence Current Visit: No Status: Acute Code(s): F11.20 - OPIOID DEPENDENCE, UNCOMPLICATED SNOMED Code(s): 03395115 (6) Gout Current Visit: No Status: Chronic Code(s): M10.9 - GOUT, UNSPECIFIED SNOMED Code(s): 48245950 Plan: Continue steroid treatment with taper. Anticipate discharge in next 2448 hours if tolerating diet. Keep on clear liquids for today and advance in a.m. Check CBC and CMP in a.m. If no improvement, consider GI consultation.
[2018-12-13] MEDS: methylPREDNISolone SOD SUCCI 40 MG/ML 1 ML VIAL IV SCH ×3 (09:28→23:14)
[2018-12-13] MEDS: amLODIPine 10 MG TAB PO SCH (09:29)
[2018-12-13] MEDS: cloNIDine HCL 0.2 MG TAB PO SCH ×2 (09:29→23:14)
[2018-12-13] MEDS: CYCLOBENZAPRINE 10 MG TAB PO SCH ×2 (09:29→21:05)
[2018-12-13] MEDS: ALLOPURINOL 100 MG TAB PO SCH ×2 (09:29→21:05)
[2018-12-13] MEDS: FAMOTIDINE 20 MG TAB PO SCH ×2 (09:29→21:05)
[2018-12-13 10:09] LABS: HCT 32.2 % (39.0-53.0); HGB 10.5 gm/dL (13.0-17.5); MCH 31.8 pg (25.0-35.0); MCHC 32.5 g/dL (31.0-37.0); MCV 97.9 fL (80.0-100.0); Mean Platelet Volume 7.4; Platelet Count 147 k/uL (150-450); RBC 3.29 m/uL (4.30-5.90); RDW 13.2 % (11.5-15.5); WBC 6.7 k/uL (3.8-10.6)
[2018-12-13 10:36] LABS: Albumin 3.1 g/dL (3.5-5.0); Potassium 4.3 mmol/L (3.5-5.1); Total Bilirubin 0.3 mg/dL (0.2-1.3); Total Protein 6.2 g/dL (6.3-8.2)
[2018-12-13 11:33] LABS: Glucose,Whole Blood 125 mg/dL (75-99)
[2018-12-13] MEDS: INSULIN ASPART (NovoLOG) 100 UNIT/ML VIAL SQ SCH ×3 (14:17→21:07)
[2018-12-13 16:45] LABS: Glucose,Whole Blood 172 mg/dL (75-99)
[2018-12-13] MEDS: Buprenorphine Hcl/Naloxone Hcl [Suboxone 2 Mg-0.5 Mg Sl Film] SUBLINGUAL SCH (18:16)
[2018-12-13 20:44] LABS: Glucose,Whole Blood 160 mg/dL (75-99)
[2018-12-13] MEDS: ACETAMINOPHEN TAB 325 MG TAB PO PRN (21:05)
[2018-12-14] MEDS: SODIUM CHLORIDE 0.9% 1,000 ML IV SCH ×3 (05:30→17:38)
[2018-12-14 07:36] LABS: Glucose,Whole Blood 144 mg/dL (75-99)
[2018-12-14] MEDS: methylPREDNISolone SOD SUCCI 40 MG/ML 1 ML VIAL IV SCH ×3 (07:44→23:07)
[2018-12-14] MEDS: FAMOTIDINE 20 MG TAB PO SCH ×2 (07:45→20:26)
[2018-12-14] MEDS: CYCLOBENZAPRINE 10 MG TAB PO SCH ×2 (07:45→20:26)
[2018-12-14] MEDS: ALLOPURINOL 100 MG TAB PO SCH ×2 (07:45→20:26)
[2018-12-14] MEDS: amLODIPine 10 MG TAB PO SCH (07:45)
[2018-12-14] MEDS: INSULIN ASPART (NovoLOG) 100 UNIT/ML VIAL SQ SCH ×4 (07:45→20:26)
[2018-12-14] MEDS: cloNIDine HCL 0.2 MG TAB PO SCH ×2 (07:45→20:26)
[2018-12-14 08:24] LABS: AST 80 U/L (17-59); African American GFR (CKD) >90 (>60 ml/min/1.73 sqM); Albumin 3.3 g/dL (3.5-5.0); Alkaline Phosphatase 50 U/L (38-126); Anion Gap 7 mmol/L; Blood Urea Nitrogen 12 mg/dL (9-20); Calcium 8.2 mg/dL (8.4-10.2); Carbon Dioxide 22 mmol/L (22-30); Chloride 110 mmol/L (98-107); Glucose 149 mg/dL (74-99); Sodium 139 mmol/L (137-145); Total Bilirubin 0.7 mg/dL (0.2-1.3); Total Protein 6.6 g/dL (6.3-8.2)
--- NOTE | 2018-12-14 08:28 | P.PN ---
Subjective Principal diagnosis: This continue present 60-year-old white male essentially admitted for Crohn's colitis. The patient's abdominal pain is improving. We will go ahead and titrate site Medrol today. Otherwise, acute chest reaction from [facility] is been living with them due to job loss. This is a continue present 60-year-old white male with known history of Crohn's colitis and rheumatoid arthritis who is coming in for exacerbation with belly pain. With the son Libia, he is significantly improving. We will go ahead and advance diet. No bowel movement since admission however. But he is been on clear liquid diet. Objective - Vital Signs Vital signs: Vital Signs Temp 97.7 F 12/14/18 01:43 Pulse 51 L 12/14/18 01:43 Resp 18 12/14/18 01:43 BP 161/71 12/14/18 01:43 Pulse Ox 96 12/14/18 01:43 Intake & Output 12/13/18 12/14/18 12/14/18 18:59 06:59 18:59 Intake Total 365 1115 Balance 365 1115 Intake: Intake, IV Titration 525 Amount Sodium Chloride 0.9% 1, 525 000 ml @ 150 mls/hr IV . Q6H40M [facility] Rx#:[id number] Oral 365 590 Other: Voiding Method Toilet # Voids 2 2 - Constitutional General appearance: Present: average body habitus, no acute distress - EENT Eyes: Absent: abnormal pupil - Respiratory Respiratory: bilateral: CTA - Cardiovascular Rhythm: regular Heart sounds: normal: S1, S2 Abnormal Heart Sounds: Absent: S3 Gallop - Gastrointestinal General gastrointestinal: Present: normal bowel sounds, soft. Absent: tenderness - Labs CBC & Chem 7: 12/13/18 09:34 12/13/18 09:34 Labs: Abnormal Lab Results - Last 24 Hours (Table) 12/13/18 12/13/18 12/13/18 Range/Units 09:34 09:34 11:31 RBC 3.29 L (4.30-5.90) m/uL Hgb 10.5 L (13.0-17.5) gm/dL Hct 32.2 L (39.0-53.0) % Plt Count 147 L (150-450) k/uL Chloride 108 H (98-107) mmol/L Carbon Dioxide 21 L (22-30) mmol/L Glucose 184 H (74-99) mg/dL POC Glucose (mg/dL) 125 H (75-99) mg/dL Calcium 8.0 L (8.4-10.2) mg/dL Total Protein 6.2 L (6.3-8.2) g/dL Albumin 3.1 L (3.5-5.0) g/dL 12/13/18 12/13/18 12/14/18 Range/Units 16:43 20:43 07:35 RBC (4.30-5.90) m/uL Hgb (13.0-17.5) gm/dL Hct (39.0-53.0) % Plt Count (150-450) k/uL Chloride (98-107) mmol/L Carbon Dioxide (22-30) mmol/L Glucose (74-99) mg/dL POC Glucose (mg/dL) 172 H 160 H 144 H (75-99) mg/dL Calcium (8.4-10.2) mg/dL Total Protein (6.3-8.2) g/dL Albumin (3.5-5.0) g/dL Assessment and Plan (1) Abdominal pain Current Visit: Yes Status: Acute Code(s): R10.9 - UNSPECIFIED ABDOMINAL PAIN SNOMED Code(s): 72313111 (2) Crohn's colitis Current Visit: No Status: Acute Code(s): K50.10 - CROHN'S DISEASE OF LARGE INTESTINE WITHOUT COMPLICATIONS SNOMED Code(s): 01813628 (3) History of Clostridium difficile colitis Current Visit: No Status: Acute Code(s): Z86.19 - PERSONAL HISTORY OF OTHER INFECTIOUS AND PARASITIC DISEASES SNOMED Code(s): 638337742 (4) Hypertension Current Visit: No Status: Acute Code(s): I10 - ESSENTIAL (PRIMARY) HYPERTENSION SNOMED Code(s): 28980815 (5) Opiate dependence Current Visit: No Status: Acute Code(s): F11.20 - OPIOID DEPENDENCE, UNCOMPLICATED SNOMED Code(s): 66944014 (6) Gout Current Visit: No Status: Chronic Code(s): M10.9 - GOUT, UNSPECIFIED SNOMED Code(s): 83472312 Plan: We will go ahead and advance his diet today. Anticipate discharge in the a.m. if he is tolerating properly with minimal pain. See orders otherwise.
[2018-12-14 08:47] LABS: HCT 34.2 % (39.0-53.0); HGB 11.3 gm/dL (13.0-17.5); Mean Platelet Volume 8.2; Platelet Count 115 k/uL (150-450); RBC 3.53 m/uL (4.30-5.90); RDW 13.6 % (11.5-15.5); WBC 8.4 k/uL (3.8-10.6)
[2018-12-14 11:46] LABS: Glucose,Whole Blood 213 mg/dL (75-99)
[2018-12-14 16:52] LABS: Glucose,Whole Blood 150 mg/dL (75-99)
[2018-12-14] MEDS: Buprenorphine Hcl/Naloxone Hcl [Suboxone 2 Mg-0.5 Mg Sl Film] SUBLINGUAL SCH (16:53)
[2018-12-14 20:06] LABS: Glucose,Whole Blood 191 mg/dL (75-99)
[2018-12-15] MEDS: SODIUM CHLORIDE 0.9% 1,000 ML IV SCH ×2 (02:40→07:41)
[2018-12-15 06:48] LABS: Glucose,Whole Blood 165 mg/dL (75-99)
[2018-12-15 07:39] VITALS: BP 160/73; PULSE 57; RESP 16; TEMP 97.9
[2018-12-15] MEDS: INSULIN ASPART (NovoLOG) 100 UNIT/ML VIAL SQ SCH (07:44)
--- NOTE | 2018-12-15 07:49 | P.DS ---
Providers Date of admission: 12/12/18 06:15 Attending physician: Minh Saldaña Primary care physician: Minh Saldaña - Discharge Diagnosis(es) (1) Abdominal pain Current Visit: Yes Status: Acute (2) Crohn's colitis Current Visit: No Status: Acute (3) History of Clostridium difficile colitis Current Visit: No Status: Acute (4) Hypertension Current Visit: No Status: Acute (5) Opiate dependence Current Visit: No Status: Acute (6) Gout Current Visit: No Status: Chronic Hospital Course: This is a discharge summary 60-year-old white male essentially admitted for Crohn's colitis. The patient has been stabilized with IV steroid treatment. Th e patient's tolerating diet with minimal pain. No bleeding rectally is noted. The patient will be discharged in stable condition to follow-up with GI and 2 weeks. I will follow-up with him in one week. We will most likely have a slower taper from his steroid usage. Patient Condition at Discharge: Stable Plan - Discharge Summary New Discharge Prescriptions: New cloNIDine HCL [Catapres] 0.2 mg PO BID tab predniSONE 50 mg PO DAILY #10 tablet Continue Orphenadrine Citrate [Orphenadrine Citrate ER] 100 mg PO BID Adalimumab [Humira Pen] 40 mg SQ Q14D Aspirin 325 mg PO DAILY PRN PRN Reason: Pain Febuxostat [Uloric] 80 mg PO DAILY amLODIPine [Norvasc] 10 mg PO DAILY #60 tab Omeprazole 20 mg PO AC-BID Buprenorphine HCl/Naloxone HCl [Suboxone 2 mg-0.5 mg Sl Film] 1 film SL DAILY@1700 Discharge Medication List Orphenadrine Citrate [Orphenadrine Citrate ER] 100 mg PO BID 12/08/17 [History] Adalimumab [Humira Pen] 40 mg SQ Q14D 04/25/18 [History] Aspirin 325 mg PO DAILY PRN 05/05/18 [History] Febuxostat [Uloric] 80 mg PO DAILY 05/05/18 [History] amLODIPine [Norvasc] 10 mg PO DAILY #60 tab 08/22/18 [Rx] Buprenorphine HCl/Naloxone HCl [Suboxone 2 mg-0.5 mg Sl Film] 1 film SL DAILY@1700 12/12/18 [History] Omeprazole 20 mg PO AC-BID 12/12/18 [History] cloNIDine HCL [Catapres] 0.2 mg PO BID tab 12/15/18 [Rx] predniSONE 50 mg PO DAILY #10 tablet 12/15/18 [Rx] Follow up Appointment(s)/Referral(s): Minh Saldaña MD [Primary Care Provider] - 1 Week Laura Yancey MD [STAFF PHYSICIAN] - 2 Weeks Discharge Disposition: HOME SELF-CARE
[2018-12-15] MEDS: ALLOPURINOL 100 MG TAB PO SCH (08:47)
[2018-12-15] MEDS: amLODIPine 10 MG TAB PO SCH (08:47)
[2018-12-15] MEDS: CYCLOBENZAPRINE 10 MG TAB PO SCH (08:47)
[2018-12-15] MEDS: methylPREDNISolone SOD SUCCI 40 MG/ML 1 ML VIAL IV SCH (08:47)
[2018-12-15] MEDS: cloNIDine HCL 0.2 MG TAB PO SCH (08:47)
[2018-12-15] MEDS: FAMOTIDINE 20 MG TAB PO SCH (08:47)
== END 2018-12-15 11:52 | disposition home or self-care (01) | DRG 386 ==
LOC: EC 04:37 → 4MS4W 06:15 → 4SSUR 09:56
PROVIDERS: ADMIT Family Medicine; ATTEND Family Medicine
DX: K50.10 Crohn's disease of large intestine without complications (principal); F11.20 Opioid dependence, uncomplicated; K21.9 Gastro-esophageal reflux disease without esophagitis; I10 Essential (primary) hypertension; D64.9 Anemia, unspecified; G43.909 Migraine, unspecified, not intractable, without status migrainosus; L40.9 Psoriasis, unspecified; M10.9 Gout, unspecified; M06.9 Rheumatoid arthritis, unspecified; F41.9 Anxiety disorder, unspecified; F32.9 Major depressive disorder, single episode, unspecified; Z90.49 Acquired absence of other specified parts of digestive tract; Z79.82 Long term (current) use of aspirin; Z79.899 Other long term (current) drug therapy; Z87.442 Personal history of urinary calculi; Z86.19 Personal history of other infectious and parasitic diseases; Z82.3 Family history of stroke; Z82.49 Family history of ischemic heart disease and other diseases of the circulatory system; Z91.041 Radiographic dye allergy status; Z90.89 Acquired absence of other organs; Z81.8 Family history of other mental and behavioral disorders; Z98.42 Cataract extraction status, left eye; Z98.41 Cataract extraction status, right eye
CPT/HCPCS: 74018; 80053; 81003; 82150; 83690; 84460; 84484; 85025; 85027; 96374; 96375; 96376; 99285

== ENCOUNTER 2019-06-10 00:31 | Inpatient (IN) | payer BC, MEDICARE ==
[2019-06-10] MEDS ORDERED: MORPHINE SULFATE 4 MG/ML SYRINGE IV STA ×2 (01:06→03:31)
[2019-06-10] MEDS ORDERED: SODIUM CHLORIDE 0.9% 500 ML 500 ML IV STA (01:06)
[2019-06-10 01:47] LABS: Basophils % (A) 0 %; Eosinophils % (A) 0 %; HGB 10.7 gm/dL (13.0-17.5); Lymphocytes # (A) 2.6 k/uL (1.0-4.8); Lymphocytes % (A) 21 %; MCH 27.5 pg (25.0-35.0); MCHC 31.5 g/dL (31.0-37.0); MCV 87.1 fL (80.0-100.0); Mean Platelet Volume 7.3; Monocytes # (A) 0.5 k/uL (0-1.0); Monocytes % (A) 4 %; Neutrophils % (A) 73 %; Platelet Count 183 k/uL (150-450); RDW 14.7 % (11.5-15.5); WBC 12.4 k/uL (3.8-10.6)
--- NOTE | 2019-06-10 01:56 | XR ---
EXAMINATION TYPE: XR abdomen 2V DATE OF EXAM: 06/10/2019 COMPARISON: 12/12/2018 HISTORY: Abdominal pain TECHNIQUE: 3 views FINDINGS: There is no sign of intestinal obstruction or pneumoperitoneum. Fecal pattern is normal. Th ere is no evidence of a mass. There are no pathologic calcifications over the urinary bladder. There are clips from cholecystectomy. There are small calcifications over both kidneys. IMPRESSION: Bilateral renal calcification unchanged. Nonacute abdomen.
[2019-06-10 01:57] LABS: Albumin 3.8 g/dL (3.5-5.0); Calcium 9.1 mg/dL (8.4-10.2); Potassium 3.9 mmol/L (3.5-5.1); Total Bilirubin 0.6 mg/dL (0.2-1.3); Total Protein 7.4 g/dL (6.3-8.2)
[2019-06-10] MEDS ORDERED: methylPREDNISolone SOD SUCCI 125 MG/2 ML VIAL IV STA (02:04)
[2019-06-10 02:41] LABS: Appearance,Urine Clear (Clear); Bilirubin,Urine Negative (Negative); Blood,Urine Negative (Negative); Color,Urine Yellow; Glucose,Urine (UA) Negative (Negative); Ketones,Urine Negative (Negative); Leukocyte Esterase,Urine Negative (Negative); Nitrite,Urine Negative (Negative); Protein,Urine Negative (Negative); Specific Gravity,Urine 1.018 (1.001-1.035); Urobilinogen,Urine <2.0 mg/dL (<2.0)
[2019-06-10] MEDS: amLODIPine 10 MG TAB PO SCH (03:51)
[2019-06-10] MEDS ORDERED: NALOXONE 0.4 MG/ML 1 ML VIAL IV PRN (04:06)
[2019-06-10] MEDS ORDERED: ACETAMINOPHEN TAB 325 MG TAB PO PRN (04:06)
--- NOTE | 2019-06-10 04:07 | CT ---
EXAMINATION TYPE: CT abdomen pelvis wo con DATE OF EXAM: 06/10/2019 COMPARISON: 05/06/2018 HISTORY: RLQ pain CT DLP: 617.6 mGycm Automated exposure control for dose reduction was used. Multiple axial sections were obtained from the diaphragm to the floor the pelvis with no contrast. The lung bases are clear of consolidation. There is no pleural effusion. There is mild subsegmental a telectasis at the posterior lung bases. There is no pericardial effusion. Liver shows no focal defect. There are small calcified splenic granulomata. The bile ducts are not di lated. There are numerous clips from cholecystectomy. The stomach is intact. There is gastrojejunal a nastomosis. There is no pancreatic mass. There is no adrenal mass. There are numerous calculi in both kidneys that measure up to 6 mm. There i s 2 cm cortical cyst lateral right kidney. There is no hydronephrosis. Ureters are not dilated. There is no retroperitoneal adenopathy. There are multiple surgical clips at the cecum. Appendix is not se en. There is no sign of thickened appendix. Bladder distends smoothly. There is no inguinal hernia. There is no free fluid in the pelvis. There i s no evidence of pelvic mass. There is no mesenteric edema. There is no ascites or free air. There is no sign of bowel obstruction. There is 4.2 cm dilated loop of proximal small bowel apparently due to the bariatric surgery. Lumbar vertebra have normal alignment. There is no compression fracture. Disc spaces are fairly leanna l. Bony pelvis is intact. IMPRESSION: Numerous bilateral nonobstructing renal calculi. No sign of acute abdomen and pelvis. Previous surger y at the cecum probably from appendectomy. No change compared to old exam.
--- NOTE | 2019-06-10 04:09 | ED ---
General Adult HPI - General Source: patient, RN notes reviewed, old records reviewed Mode of arrival: ambulatory Limitations: no limitations <Sam Franklin - Last Filed: 06/10/19 04:10> <Kaye Fitch - Last Filed: 06/11/19 23:46> - General Chief complaint: Abdominal Pain Stated complaint: Crohns Time Seen by Provider: 06/10/19 00:47 - History of Present Illness Initial comments: 69-year-old male patient past history significant for Crohn's disease presents to ED for chief complaint of right lower quadrant abdominal pain. Patient has been experiencing pain since , was placed on prednisone by his primary care provider has taken 2 doses of it and symptoms have not improved. Does report that it feels similar to the chronic abdominal pain and Crohn's disease. He has been expressing states he was 19 years old. Reports nausea vomiting diarrhea. Denies any other complaints. Systemic: Pt denies fatigue, fever/chills, rash. Pt denies weakness, night sweats, weight loss. Neuro: Pt denies headache, visual disturbances, syncope or pre-syncope. HEENT: Pt denies ocular discharge or irritation, otalgia, rhinorrhea, pharyngitis or notable lymphadenopathy. Cardiopulmonary: Pt denies chest pain, SOB, heart palpitations, dyspnea on exertion. : Pt denies dysuria, burning w/ urination, frequency/urgency. Denies new onset urinary or bowel incontinence. MSK: Pt denies myalgia, loss of strength or function in extremities. Neuro: Pt denies new onset weakness, paresthesias. (Sam Franklin) - Related Data Home Medications Medication Instructions Recorded Confirmed Orphenadrine Citrate [Orphenadrine 100 mg PO BID 12/08/17 06/10/19 Citrate ER] Adalimumab [Humira Pen] 40 mg SQ Q14D 04/25/18 06/10/19 Aspirin 325 mg PO DAILY PRN 05/05/18 06/10/19 Febuxostat [Uloric] 80 mg PO DAILY 05/05/18 06/10/19 Buprenorphine HCl/Naloxone HCl 1 film SL DAILY@1700 12/12/18 06/10/19 [Suboxone 2 mg-0.5 mg Sl Film] Omeprazole 20 mg PO AC-BID 12/12/18 06/10/19 Cyclobenzaprine [Flexeril] 10 mg PO BID 06/10/19 06/10/19 Multivitamins, Thera [Multivitamin 1 tab PO DAILY 06/10/19 06/10/19 (formulary)] amLODIPine [Norvasc] 5 mg PO DAILY 06/10/19 06/10/19 Previous Rx's Medication Instructions Recorded predniSONE 50 mg PO DAILY #10 tablet 12/15/18 Allergies Allergy/AdvReac Type Severity Reaction Status Date / Time Iodinated Contrast Media Allergy Anaphylaxis Verified 06/10/19 12:32 [Iodinated Contrast Media - IV Dye] Review of Systems ROS Other: All systems not noted in ROS Statement are negative. <Sam Franklin - Last Filed: 06/10/19 04:10> ROS Other: All systems not noted in ROS Statement are negative. <Kaye Fitch - Last Filed: 06/11/19 23:46> ROS Statement: Those systems with pertinent positive or pertinent negative responses have been documented in the HPI. Past Medical History Past Medical History: GERD/Reflux, Hypertension, Renal Disease, Rheumatoid Arthritis (RA), Skin Disorder, Supraventricular Tachycardia (SVT) Additional Past Medical History / Comment(s): hx CROHN'S (takes tresa), IBS, chronic diarrhea, migraines-just a couple, hx SVT with ablation, hx ulcers, anemia, generalized gout, kidney stones pt passed on his own, psoriasis, bilateral tinnitis., History of Any Multi-Drug Resistant Organisms: None Reported Date of last positivie culture/infection: 11/29/2013 MDRO Source:: C-DIFF x 6 in Past Surgical History: Bowel Resection, Cardiac Ablation, Cholecystectomy, Heart Catheterization, Hernia Repair, Orthopedic Surgery, Tonsillectomy Additional Past Surgical History / Comment(s): partial gastrectomy (ulcers), bowel resections, fecal transplant, bilateral knee arthroscopic surgery, EGD/colonoscopies, R inguinal hernia repair, bilat cataract removal. Past Anesthesia/Blood Transfusion Reactions: Blood Transfusion Reaction, Motion Sickness Additional Past Anesthesia/Blood Transfusion Reaction / Comment(s): BLOOD TRANSFUSION- BROKE OUT IN HIVES age 21 Past Psychological History: Anxiety, Depression Smoking Status: Never smoker Past Alcohol Use History: Rare Past Drug Use History: None Reported - Past Family History Father Family Medical History: Dementia Additional Family Medical History / Comment(s): Father at the age of 86yrs. Mother Family Medical History: Myocardial Infarction ([place]), Pulmonary Embolus Additional Family Medical History / Comment(s): AGE 73-[place], STROKE DURING CARATID PROCEDURE <Sam Franklin - Last Filed: 06/10/19 04:10> General Exam Limitations: no limitations <Sam Franklin - Last Filed: 06/10/19 04:10> - General Exam Comments Initial Comments: Constitutional: NAD, AOX3, Pt has pleasant affect. HEENT: NC/AT, trachea midline, neck supple, no lymphadenopathy. Posterior pharynx non erythematous, without exudates. External ears appear normal, without discharge. Mucous membranes moist. Eyes PERRLA, EOM intact. There is no scleral icterus. No pallor noted. Cardiopulmonary: RRR, no murmurs, rubs or gallops, no JVD noted. Lungs CTAB in anterior and posterior murdock. No peripheral edema. Abdominal exam: Abdomen soft and non-distended. Abdomen mildly tender to pal pation right lower quadrant region. There is no rebound tenderness. No guarding or rigidity.. Bowel sounds active in LLQ. No hepatosplenomegaly. No ecchymosis Neuro: CN II-XII grossly intact. No nuchal rigidity. No raccon eyes, no dixon sign, no hemotympanum. No cervical spinal tenderness. MSK: No posterior calf tenderness bilaterally, homans sign negative bilaterally. Posterior tibialis and radial pulse +2 bilaterally. Sensation intact in upper and lower extremities. Full active ROM in upper and lower extremities, 5/5 stregnth. (Sam Franklin) Course Vital Signs 06/10/19 06/10/19 06/10/19 00:42 02:19 03:41 Temperature 98.4 F 98.7 F 98.5 F Pulse Rate 106 H 90 90 Respiratory 16 18 18 Rate Blood Pressure 176/94 176/95 183/104 Blood Pressure [Right Arm Supine] O2 Sat by Pulse 96 98 100 Oximetry 06/10/19 06/10/19 06/10/19 04:21 04:26 04:35 Temperature Pulse Rate Respiratory Rate Blood Pressure 183/94 168/90 Blood Pressure 180/93 [Right Arm Supine] O2 Sat by Pulse Oximetry Medical Decision Making - Lab Data Result diagrams: 06/10/19 01:25 06/10/19 01:25 <Sam Franklin - Last Filed: 06/10/19 04:10> - Lab Data Result diagrams: 06/11/19 06:51 06/11/19 06:51 <Kaye Fitch - Last Filed: 06/11/19 23:46> - Medical Decision Making 69-year-old male patient past history significant for Crohn's disease presents to ED for chief complaint of right lower quadrant abdominal pain. Patient has been experiencing pain since , was placed on prednisone by his primary care provider has taken 2 doses of it and symptoms have not improved. Does report that it feels similar to the chronic abdominal pain and Crohn's disease. He has been expressing states he was 19 years old. Reports nausea vomiting lisa rrhea. Denies any other complaints. Patient vital signs stable, afebrile. Physical exam displayed right lower quadrant tenderness. Laboratory investigations revealed a leukocytosis, otherwise round baseline. CT abdomen and pelvis without contrast was obtained and displayed bilateral renal calculi no acute process. X-ray displayed no acute process. Patient will be admitted for IV steroids analgesia. Case discussed with Dr. Fitch. (Sam Franklin) I was available for consultation in the emergency department. The history and physical exam were done by the midlevel provider. I was consulted for this patients care. I reviewed the case with the midlevel provider and based on their presentation of the patient, I agree with the assessment, medical decision making and plan of care as documented. Patient admitted to [facility] as Dr. Saldaña is off. Discussed case with [employer] for [facility]. Chart was dictated using [employer] dictation software. Attempts were made to correct any dictation errors however some typographical errors may persist. (Kaye Fitch) - Lab Data Lab Results 06/10/19 06/10/19 06/10/19 Range/Units 01:25 01:25 02:24 WBC 12.4 H (3.8-10.6) k/uL RBC 3.90 L (4.30-5.90) m/uL Hgb 10.7 L (13.0-17.5) gm/dL Hct 34.0 L (39.0-53.0) % MCV 87.1 (80.0-100.0) fL MCH 27.5 (25.0-35.0) pg MCHC 31.5 (31.0-37.0) g/dL RDW 14.7 (11.5-15.5) % Plt Count 183 (150-450) k/uL Neutrophils % 73 % Lymphocytes % 21 % Monocytes % 4 % Eosinophils % 0 % Basophils % 0 % Neutrophils # 9.0 H (1.3-7.7) k/uL Lymphocytes # 2.6 (1.0-4.8) k/uL Monocytes # 0.5 (0-1.0) k/uL Eosinophils # 0.0 (0-0.7) k/uL Basophils # 0.0 (0-0.2) k/uL Sodium 138 (137-145) mmol/L Potassium 3.9 (3.5-5.1) mmol/L Chloride 110 H (98-107) mmol/L Carbon Dioxide 18 L (22-30) mmol/L Anion Gap 10 mmol/L BUN 22 H (9-20) mg/dL Creatinine 1.02 (0.66-1.25) mg/dL Est GFR (CKD-EPI)AfAm 87 (>60 ml/min/1.73 sqM) Est GFR (CKD-EPI)NonAf 75 (>60 ml/min/1.73 sqM) Glucose 135 H (74-99) mg/dL Calcium 9.1 (8.4-10.2) mg/dL Total Bilirubin 0.6 (0.2-1.3) mg/dL AST 41 (17-59) U/L ALT 55 H (4-49) U/L Alkaline Phosphatase 60 (38-126) U/L Total Protein 7.4 (6.3-8.2) g/dL Albumin 3.8 (3.5-5.0) g/dL Lipase 42 (23-300) U/L Urine Color Yellow Urine Appearance Clear (Clear) Urine pH 6.0 (5.0-8.0) Ur Specific [place] 1.018 (1.001-1.035) Urine Protein Negative (Negative) Urine Glucose (UA) Negative (Negative) Urine Ketones Negative (Negative) Urine Blood Negative (Negative) Urine Nitrite Negative (Negative) Urine Bilirubin Negative (Negative) Urine Urobilinogen <2.0 (<2.0) mg/dL Ur Leukocyte Esterase Negative (Negative) Disposition Is patient prescribed a controlled substance at d/c from ED?: No <Sam Franklin - Last Filed: 06/10/19 04:10> <Kaye Fitch - Last Filed: 06/11/19 23:46> Clinical Impression: Exacerbation of Crohn's disease Disposition: ADMITTED IP TO THIS HOSP Condition: Serious
[2019-06-10] MEDS: SODIUM CHLORIDE 0.9% 1,000 ML IV SCH ×2 (04:53→15:56)
[2019-06-10] MEDS ORDERED: methylPREDNISolone SOD SUCCI 125 MG/2 ML VIAL IV SCH ×2 (06:00→08:00)
[2019-06-10] MEDS: MORPHINE SULFATE 4 MG/ML SYRINGE IV PRN ×4 (06:01→23:30)
[2019-06-10] MEDS: ONDANSETRON 4 MG/2 ML VIAL IVP PRN ×2 (11:50→21:17)
--- NOTE | 2019-06-10 11:51 | CONS ---
CONSULTATION REQUESTING PHYSICIAN: Dr. Vernon REASON FOR CONSULTATION: Exacerbation of Crohn's disease. HISTORY OF PRESENT ILLNESS: The patient is a 69-year-old, pleasant white male with long-standing history of Crohn's disease involving the small bowel status post terminal ileal resection about three years ago for stricturing disease and has been maintained on Humira every two weeks for almost 3 years. His last hospitalization was in November of 2018 requiring the steroid therapy. Now he presents to the hospital with abdominal pain going on for the last 4-5 days' duration. Abdominal pain is mostly in the periumbilical area and right lower quadrant area associated with severe nausea, vomiting, and diarrhea. He was having about 10-12 loose watery bowel movements. He saw Dr. Vernon on an outpatient basis on Tuesday and was given oral prednisone, however, symptoms continued to get worse and hence came into the emergency room and subsequently admitted to the hospital for further evaluation. He did have a CT of the abdomen and pelvis done that showed bilateral kidney stones but otherwise, no evidence of bowel obstruction. PAST MEDICAL HISTORY: GERD, hypertension, Crohn's disease, rheumatoid arthritis, SVT, history of peptic ulcer disease in the past, anxiety, depression. PAST SURGICAL HISTORY: Terminal ileal resection, cholecystectomy, tonsillectomy, hernia repair, partial gastrectomy for peptic ulcer disease, multiple EGDs and colonoscopies, the last one about a year and a half ago. SOCIAL HISTORY: No smoking or alcohol use. FAMILY HISTORY: Father had dementia. Mother had pulmonary embolism. MEDICATIONS: At home include Humira, aspirin, Uloric, naloxone, omeprazole. ALLERGIES: IV DYE. REVIEW OF SYSTEMS: CARDIOPULMONARY: No chest pain, shortness of breath. GENITOURINARY: No dysuria or hematuria. MUSCULOSKELETAL: Unremarkable. SKIN: Unremarkable. ENDOCRINE: Unremarkable. PSYCHIATRIC: Unremarkable. NEUROLOGY: Unremarkable. ENT/VISION: Unremarkable. CONSTITUTIONAL: No recent weight loss. No fever, chills, night sweats. PHYSICAL EXAMINATION: He appears comfortable. No apparent distress. Vital signs are stable. Blood pressure is 188/88, pulse rate 61, temperature 97.5. HEENT: Examination is unremarkable. Conjunctivae pink. Sclerae anicteric. Oral cavity no lesions. NECK: No JVD or lymph node enlargement. CHEST: Clear to auscultation. HEART: Regular rate and rhythm. ABDOMEN: It was slightly distended. There was mild tenderness in the periumbilical area but it was very tympanic. Bowel sounds were positive. EXTREMITIES: No pedal edema. SKIN: No rashes. NEUROLOGIC: Alert and oriented x3. No focal deficits. LABS: WBC 12.5, hemoglobin 10.7, platelets normal. Basic metabolic panel is within normal limits. BUN 22, creatine around 0.02. Lipase is normal. Urinalysis is negative. IMAGING: CT of the abdomen done in the morning yesterday showed evidence of numerous bilateral nonobstructing renal calculi. No signs of bowel obstruction. IMPRESSION: 1. 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 Possible flare up of Crohn's ileitis. He is presently on IV Solu-Medrol 60 mg q.8 hours and he is feeling better this morning. 2. History of recurrent Clostridium difficile colitis two years ago. 3. History of peptic ulcer disease status post partial gastrectomy. 4. History of IBS. RECOMMENDATIONS: 1. Will continue with Solu-Medrol but will decrease it 20 mg q.8 hours. 2. Start clear liquid diet. 3. Repeat labs in the morning. 4. If his symptoms improve, will change the IV steroids to oral prednisone 40 mg p.o. per day tomorrow to taper by 5 mg every week. 5. Await stool studies and will follow with you closely. Thank you for this consultation. MMODL / IJN: [id number] /
--- NOTE | 2019-06-10 12:17 | P.HPIM ---
History of Present Illness this is a pleasant 69-year-old male with history of Crohn's disease on by ALLERGIC agents came in with comments of diarrhea which has been going on for about more than a week and patient has seen PCP Dr. Saldaña and was prescribed is prednisone in spite of which patient is still having crampy abdominal pain moderate severity diffuse along with multiple episodes of diarrhea about 10 a day nonbloody mucus. Patient didn't have diarrhea since yesterday patient was also had nausea vomiting. Patient denied any fever chills patient was started on IV steroids which were cut down to 20 twice a day. Patient is still with nauseous now Review of Systems REVIEW OF SYSTEMS: CONSTITUTIONAL: No fever, no malaise, no fatigue. HEENT: No recent visual problems or hearing problems. Denied any sore throat. CARDIOVASCULAR: No chest pain, orthopnea, PND, no palpitations, no syncope. PULMONARY: No shortness of breath, no cough, no hemoptysis. GASTROINTESTINAL: as mentioned in HPI NEUROLOGICAL: No headaches, no weakness, no numbness. HEMATOLOGICAL: Denies any bleeding or petechiae. GENITOURINARY: Denies any burning micturition, frequency, or urgency. MUSCULOSKELETAL/RHEUMATOLOGICAL: Denies any joint pain, swelling, or any muscle pain. ENDOCRINE: Denies any polyuria or polydipsia. The rest of the 14-point review of systems is negative. Past Medical History Past Medical History: GERD/Reflux, Hypertension, Renal Disease, Rheumatoid Arthritis (RA), Skin Disorder, Supraventricular Tachycardia (SVT) Additional Past Medical History / Comment(s): hx CROHN'S (takes tresa), IBS, chronic diarrhea, migraines-just a couple, hx SVT with ablation, hx ulcers, anemia, generalized gout, kidney stones pt passed on his own, psoriasis, bi lateral tinnitis., History of Any Multi-Drug Resistant Organisms: None Reported Date of last positivie culture/infection: 11/29/2013 MDRO Source:: C-DIFF x 6 in Past Surgical History: Bowel Resection, Cardiac Ablation, Cholecystectomy, Heart Catheterization, Hernia Repair, Orthopedic Surgery, Tonsillectomy Additional Past Surgical History / Comment(s): partial gastrectomy (ulcers), bowel resections, fecal transplant, bilateral knee arthroscopic surgery, EGD/col onoscopies, R inguinal hernia repair, bilat cataract removal. Past Anesthesia/Blood Transfusion Reactions: Blood Transfusion Reaction, Motion Sickness Additional Past Anesthesia/Blood Transfusion Reaction / Comment(s): BLOOD TRANSFUSION- BROKE OUT IN HIVES age 21 Past Psychological History: Anxiety, Depression Additional Psychological History / Comment(s): Retired due to his health. Pt resides with his spouse. He has hx of opiate dependency and is on suboxone. He is independent. Smoking Status: Never smoker Past Alcohol Use History: Rare Past Drug Use History: None Reported Additional Drug Use History / Comment(s): Hx of opiate dependency-on suboxone. - Past Family History Father Family Medical History: Dementia Additional Family Medical History / Comment(s): Father at the age of 86yrs. Mother Family Medical History: Myocardial Infarction ([place]), Pulmonary Embolus Additional Family Medical History / Comment(s): AGE 73-[place], STROKE DURING [place] RATID PROCEDURE Medications and Allergies Home Medications Medication Instructions Recorded Confirmed Type Orphenadrine Citrate [Orphenadrine 100 mg PO BID 12/08/17 12/12/18 History Citrate ER] Adalimumab [Humira Pen] 40 mg SQ Q14D 04/25/18 12/12/18 History Aspirin 325 mg PO DAILY PRN 05/05/18 12/12/18 History Febuxostat [Uloric] 80 mg PO DAILY 05/05/18 12/12/18 History amLODIPine [Norvasc] 10 mg PO DAILY #60 tab 08/22/18 12/12/18 Rx Buprenorphine HCl/Naloxone HCl 1 film SL DAILY@1700 12/12/18 12/12/18 History [Suboxone 2 mg-0.5 mg Sl Film] Omeprazole 20 mg PO AC-BID 12/12/18 12/12/18 History cloNIDine HCL [Catapres] 0.2 mg PO BID tab 12/15/18 Rx predniSONE 50 mg PO DAILY #10 tablet 12/15/18 Rx Allergies Allergy/AdvReac Type Severity Reaction Status Date / Time Iodinated Contrast Media Allergy Anaphylaxis Verified 06/10/19 00:46 [Iodinated Contrast Media - IV Dye] Physical Exam Vitals: Vital Signs Temp Pulse Pulse Resp BP BP Pulse Ox 06/10/19 10:00 74 188/82 98 06/10/19 07:10 61 16 06/10/19 06:57 97.5 F L 61 16 188/88 97 06/10/19 05:34 98.1 F 65 18 181/94 95 06/10/19 04:35 168/90 06/10/19 04:26 180/93 06/10/19 04:21 183/94 06/10/19 03:41 98.5 F 90 18 183/104 100 06/10/19 02:19 98.7 F 90 18 176/95 98 06/10/19 00:42 98.4 F 106 H 16 176/94 96 Intake and Output 06/09/19 06/10/19 06/10/19 22:59 06:59 14:59 Other: # Voids 0 Weight 86.183 kg PHYSICAL EXAMINATION: GENERAL: The patient is alert and oriented x3, not in any acute distress. Well developed, well nourished. HEENT: Pupils are round and equally reacting to light. EOMI. No scleral icterus. No conjunctival pallor. Normocephalic, atraumatic. No pharyngeal erythema. No thyromegaly. CARDIOVASCULAR: S1 and S2 present. No murmurs, rubs, or gallops. PULMONARY: Chest is clear to auscultation, no wheezing or crackles. ABDOMEN: mildly distended no significant tenderness does have bowel sounds hyperactive no palpable organomegaly MUSCULOSKELETAL: No joint swelling or deformity. EXTREMITIES: No cyanosis, clubbing, or pedal edema. NEUROLOGICAL: Gross neurological examination did not reveal any focal deficits. SKIN: No rashes. Results CBC & Chem 7: 06/10/19 01:25 06/10/19 01:25 Labs: Abnormal Lab Results - Last 24 Hours (Table) 06/10/19 06/10/19 Range/Units 01:25 01:25 WBC 12.4 H (3.8-10.6) k/uL RBC 3.90 L (4.30-5.90) m/uL Hgb 10.7 L (13.0-17.5) gm/dL Hct 34.0 L (39.0-53.0) % Neutrophils # 9.0 H (1.3-7.7) k/uL Chloride 110 H (98-107) mmol/L Carbon Dioxide 18 L (22-30) mmol/L BUN 22 H (9-20) mg/dL Glucose 135 H (74-99) mg/dL ALT 55 H (4-49) U/L Thrombosis Risk Factor Assmnt - Choose All That Apply Each Risk Factor Represents 2 Points: Age 61-74 years Thrombosis Risk Factor Assessment Total Risk Factor Score: 2 Thrombosis Risk Factor Assessment Level: Low Risk Assessment and Plan Plan: -possible Crohn's exacerbation: Patient can he was suspected strides continue symptomatically treatment C. diff was ordered although patient doesn't have any stools for suspicion of C. diff is low.patient was started on full liquid diet and he with IV fluids gastroesophageal reflux disease -hypertension patient will be resumed on his home medications once they're verified History of SVT patient tanner in sinus rhythm now patient had a cardiac admission the past -coronary artery disease #Depression -mild non-anion gap metabolic acidosis secondary to hyperchloremia. DVT prophylaxis early ambulation
[2019-06-10] MEDS: methylPREDNISolone SOD SUCCI 40 MG/ML 1 ML VIAL IV SCH ×2 (15:55→23:29)
[2019-06-10] MEDS: PANTOPRAZOLE 40 MG TABLET PO SCH (17:11)
[2019-06-10] MEDS: [UNRECOGNIZED DRUG - OTHER] PO SCH (17:11)
[2019-06-10] MEDS: NALOXONE HCL PO SCH (17:11)
[2019-06-10] MEDS: BUPRENORPHINE HCL PO SCH (17:11)
[2019-06-10] MEDS ORDERED: ORPHENADRINE CITRATE 100 MG PO SCH (21:00)
[2019-06-10] MEDS: CYCLOBENZAPRINE 10 MG TAB PO SCH (21:13)
[2019-06-11] MEDS: MORPHINE SULFATE 4 MG/ML SYRINGE IV PRN ×3 (05:36→18:06)
[2019-06-11] MEDS: SODIUM CHLORIDE 0.9% 1,000 ML IV SCH ×3 (05:39→19:22)
[2019-06-11 07:19] LABS: HCT 31.6 % (39.0-53.0); HGB 9.8 gm/dL (13.0-17.5); MCH 27.4 pg (25.0-35.0); MCHC 31.1 g/dL (31.0-37.0); MCV 88.1 fL (80.0-100.0); Mean Platelet Volume 7.4; Platelet Count 140 k/uL (150-450); RBC 3.58 m/uL (4.30-5.90); RDW 14.8 % (11.5-15.5); WBC 8.4 k/uL (3.8-10.6)
[2019-06-11 07:32] LABS: African American GFR (CKD) >90 (>60 ml/min/1.73 sqM); Anion Gap 7 mmol/L; Blood Urea Nitrogen 20 mg/dL (9-20); Calcium 8.5 mg/dL (8.4-10.2); Carbon Dioxide 23 mmol/L (22-30); Chloride 105 mmol/L (98-107); Glucose 156 mg/dL (74-99); Non-African American GFR(CKD) 85 (>60 ml/min/1.73 sqM); Potassium 4.8 mmol/L (3.5-5.1); Sodium 135 mmol/L (137-145)
[2019-06-11] MEDS: CYCLOBENZAPRINE 10 MG TAB PO SCH ×2 (07:51→20:54)
[2019-06-11] MEDS: PANTOPRAZOLE 40 MG TABLET PO SCH (07:51)
[2019-06-11] MEDS: methylPREDNISolone SOD SUCCI 40 MG/ML 1 ML VIAL IV SCH ×2 (07:51→18:02)
[2019-06-11] MEDS: amLODIPine 10 MG TAB PO SCH (07:51)
[2019-06-11] MEDS: ALLOPURINOL 100 MG TAB PO SCH ×2 (07:52→20:53)
--- NOTE | 2019-06-11 08:07 | P.PN ---
Subjective Progress Note Date: 06/11/19 Principal diagnosis: Crohn's colitis The patient is here essentially for recurrent Crohn's flareup. The patient still states some bloating but states appetite is slowly improving. Objective - Vital Signs Vital signs: Vital Signs Temp 97.7 F 06/11/19 01:00 Pulse 62 06/11/19 04:00 Resp 16 06/11/19 04:00 BP 164/88 06/11/19 01:00 Pulse Ox 95 06/11/19 01:00 Intake & Output 06/10/19 06/11/19 06/11/19 18:59 06:59 18:59 Intake Total 300 Balance 300 Intake: Intake, IV Titration 300 Amount Sodium Chloride 0.9% 1, 300 000 ml @ 100 mls/hr IV . Q10H GABE Rx#:[id number] Other: # Voids 1 - Constitutional General appearance: Present: average body habitus - EENT Eyes: Absent: abnormal pupil - Neck Neck: Absent: lymphadenopathy - Respiratory Respiratory: bilateral: CTA - Gastrointestinal Gastrointestinal Comment(s): Protuberant abdomen General gastrointestinal: Present: decreased bowel sounds - Neurologic Neurologic: Present: CNII-XII intact - Labs CBC & Chem 7: 06/11/19 06:51 06/11/19 06:51 Labs: Abnormal Lab Results - Last 24 Hours (Table) 06/11/19 06/11/19 Range/Units 06:51 06:51 RBC 3.58 L (4.30-5.90) m/uL Hgb 9.8 L (13.0-17.5) gm/dL Hct 31.6 L (39.0-53.0) % Plt Count 140 L (150-450) k/uL Sodium 135 L (137-145) mmol/L Glucose 156 H (74-99) mg/dL Assessment and Plan (1) Exacerbation of Crohn's disease Current Visit: Yes Status: Acute Code(s): K50.90 - CROHN'S DISEASE, UNSPECIFIED, WITHOUT COMPLICATIONS SNOMED Code(s): 93935640 (2) Abdominal pain Current Visit: No Status: Acute Code(s): R10.9 - UNSPECIFIED ABDOMINAL PAIN SNOMED Code(s): 03142349 (3) Hypertension Current Visit: No Status: Acute Code(s): I10 - ESSENTIAL (PRIMARY) HYPERTENSION SNOMED Code(s): 08174644 (4) Opiate dependence Current Visit: No Status: Acute Code(s): F11.20 - OPIOID DEPENDENCE, UNCOMPLICATED SNOMED Code(s): 80366370 Plan: Continue current regimen of treatment with SciMed Medrol. check CBC and CMP in a.m. Most likely advance diet in a.m. anticipate discharge in the next 48 hours if stable
[2019-06-11] MEDS: KETOROLAC 30 MG/ML 1 ML VIAL IVP PRN (16:09)
--- NOTE | 2019-06-11 16:40 | XR ---
EXAMINATION TYPE: XR KUB DATE OF EXAM: 06/11/2019 4:30 PM CLINICAL HISTORY: Constipation rule out obstruction TECHNIQUE: Two supine KUB images of the abdomen are obtained. COMPARISON: CT abdomen and pelvis and abdominal x-ray from yesterday. FINDINGS: Some gas prominent colonic loops throughout the periphery. Gas prominent small bowel loops in the left midabdomen. Some paucity of small bowel gas. Cholecystectomy clips redemonstrated. Bilate ral renal calculi seen better on CT, evident best lower pole level left kidney. Surgical changes epig astric region. Narrowing at the sacroiliac joints again seen. IMPRESSION: Persistent overall nonspecific bowel gas pattern.
[2019-06-11] MEDS: [UNRECOGNIZED DRUG - OTHER] PO SCH (18:02)
[2019-06-11] MEDS: NALOXONE HCL PO SCH (18:02)
[2019-06-11] MEDS: BUPRENORPHINE HCL PO SCH (18:02)
[2019-06-11] MEDS: PIPERACILLIN-TAZOBACTAM 3.375 GM in SODIUM CHLORIDE 0.9% 100 ML IVPB SCH (20:53)
[2019-06-12] MEDS: methylPREDNISolone SOD SUCCI 40 MG/ML 1 ML VIAL IV SCH ×2 (00:06→07:58)
[2019-06-12] MEDS: MORPHINE SULFATE 4 MG/ML SYRINGE IV PRN ×4 (00:08→18:04)
[2019-06-12] MEDS: KETOROLAC 30 MG/ML 1 ML VIAL IVP PRN ×3 (02:23→22:01)
[2019-06-12] MEDS: PIPERACILLIN-TAZOBACTAM 3.375 GM in SODIUM CHLORIDE 0.9% 100 ML IVPB SCH ×3 (04:49→20:40)
--- NOTE | 2019-06-12 07:26 | P.PN ---
Subjective Progress Note Date: 06/11/19 Principal diagnosis: Crohn's disease involving the small bowel, history of recurrent Clostridium difficile colitis, IBS, abdominal pain Patient seen standing bedside today. Still reporting some abdominal discomfort and distention. No nausea or vomiting. Objective - Vital Signs Vital signs: Vital Signs Temp 98.3 F 06/11/19 07:00 Pulse 62 06/11/19 07:00 Resp 16 06/11/19 07:00 BP 163/78 06/11/19 07:00 Pulse Ox 97 06/11/19 07:00 Intake & Output 06/10/19 06/11/19 06/11/19 18:59 06:59 18:59 Intake Total 300 Balance 300 Intake: Intake, IV Titration 300 Amount Sodium Chloride 0.9% 1, 300 000 ml @ 100 mls/hr IV . Q10H GABE Rx#:[id number] Other: # Voids 1 - Exam On physical examination, patient appears comfortable in no apparent distress. HEAD: Normocephalic, atraumatic. EYES: No scleral icterus. No conjunctival injection. MOUTH: No lesions, tongue midline. NECK: Trachea midline, no gross abnormalities. ABDOMEN: Soft, back tender to palpation. Bowel sounds are positive. No organomegaly. No guarding or rigidity. EXTREMITIES: No pedal edema. SKIN: No rashes, no jaundice. NEUROLOGIC: Alert and oriented x3. No focal deficits. - Labs CBC & Chem 7: 06/11/19 06:51 06/11/19 06:51 Labs: Abnormal Lab Results - Last 24 Hours (Table) 06/11/19 06/11/19 06/11/19 Range/Units 06:51 06:51 09:08 RBC 3.58 L (4.30-5.90) m/uL Hgb 9.8 L (13.0-17.5) gm/dL Hct 31.6 L (39.0-53.0) % Plt Count 140 L (150-450) k/uL Sodium 135 L (137-145) mmol/L Glucose 156 H (74-99) mg/dL Plasma Lactic Acid Kal 3.9 H* (0.7-2.0) mmol/L Assessment and Plan (1) Exacerbation of Crohn's disease Narrative/Plan: 69-year-old male with a long-standing history of Crohn's disease involving the small bowel maintained on Humira every 2 weeks for the past 3 years. Patient is status post terminal ileal resection in the past. He presented to the hospital with abdominal pain, nausea, vomiting and diarrhea with negative computed tomography scan with suspicion for flareup of Crohn's ileitis. Current Visit: Yes Status: Acute Code(s): K50.90 - CROHN'S DISEASE, UNSPECIFIED, WITHOUT COMPLICATIONS SNOMED Code(s): 35504786 (2) Abdominal pain Current Visit: No Status: Acute Code(s): R10.9 - UNSPECIFIED ABDOMINAL PAIN SNOMED Code(s): 01614918 (3) History of Clostridium difficile colitis Current Visit: No Status: Acute Code(s): Z86.19 - PERSONAL HISTORY OF OTHER INFECTIOUS AND PARASITIC DISEASES SNOMED Code(s): 978286180 Plan: Supportive care Clear liquid diet Continue Solu-Medrol 20 mg every 8 hours Continue to monitor CBC, CMP in Continue to monitor symptoms Stool studies pending Thank you for allowing us to participate in the care of the patient we will continue to follow
[2019-06-12 07:38] LABS: HCT 35.3 % (39.0-53.0); HGB 10.7 gm/dL (13.0-17.5); MCHC 30.2 g/dL (31.0-37.0); MCV 89.5 fL (80.0-100.0); Mean Platelet Volume 7.6; Platelet Count 159 k/uL (150-450); RBC 3.94 m/uL (4.30-5.90); RDW 14.5 % (11.5-15.5)
[2019-06-12 07:55] LABS: Albumin 3.9 g/dL (3.5-5.0); Calcium 8.8 mg/dL (8.4-10.2); Potassium 4.9 mmol/L (3.5-5.1); Total Protein 7.3 g/dL (6.3-8.2)
[2019-06-12] MEDS: ALLOPURINOL 100 MG TAB PO SCH ×2 (07:56→20:39)
[2019-06-12] MEDS: amLODIPine 10 MG TAB PO SCH (07:56)
[2019-06-12] MEDS: CYCLOBENZAPRINE 10 MG TAB PO SCH ×2 (07:57→20:39)
[2019-06-12] MEDS: PANTOPRAZOLE 40 MG TABLET PO SCH (07:57)
[2019-06-12] MEDS: SODIUM CHLORIDE 0.9% 1,000 ML IV SCH ×2 (07:59→17:20)
[2019-06-12] MEDS: [UNRECOGNIZED DRUG - OTHER] PO SCH (17:19)
[2019-06-12] MEDS: NALOXONE HCL PO SCH (17:19)
[2019-06-12] MEDS: BUPRENORPHINE HCL PO SCH (17:19)
--- NOTE | 2019-06-12 22:18 | P.PN ---
Subjective Principal diagnosis: Crohn's colitis The patient is here essentially for recurrent Crohn's flareup. The patient still states some bloating but states appetite is slowly improving. I would adVance diet today. He still has some Protuberance but the appetite is improv Objective - Vital Signs Vital signs: Vital Signs Temp 97.5 F L 06/12/19 18:45 Pulse 86 06/12/19 18:45 Resp 18 06/12/19 18:45 BP 174/87 06/12/19 18:45 Pulse Ox 95 06/12/19 18:45 Intake & Output 06/12/19 06/12/19 06/13/19 06:59 18:59 06:59 Output Total 200 Balance -200 Output: Urine 200 Other: Voiding Method Toilet Toilet # Bowel Movements 0 1 - Constitutional General appearance: Present: average body habitus, no acute distress - EENT Eyes: Absent: abnormal pupil - Neck Neck: Present: lymphadenopathy - Respiratory Respiratory: bilateral: CTA - Cardiovascular Rhythm: regular Heart sounds: normal: S1, S2 Abnormal Heart Sounds: Absent: S3 Gallop - Gastrointestinal General gastrointestinal: Present: decreased bowel sounds, distended - Integumentary Integumentary: Absent: cellulitis - Neurologic Neurologic: Present: CNII-XII intact - Labs CBC & Chem 7: 06/12/19 07:11 06/12/19 07:11 Labs: Abnormal Lab Results - Last 24 Hours (Table) 06/11/19 06/12/19 06/12/19 Range/Units 22:38 02:39 07:11 WBC 11.0 H (3.8-10.6) k/uL RBC 3.94 L (4.30-5.90) m/uL Hgb 10.7 L (13.0-17.5) gm/dL Hct 35.3 L (39.0-53.0) % MCHC 30.2 L (31.0-37.0) g/dL Sodium (137-145) mmol/L Glucose (74-99) mg/dL Plasma Lactic Acid Kal 2.4 H* 2.3 H* (0.7-2.0) mmol/L AST (17-59) U/L ALT (4-49) U/L 06/12/19 06/12/19 06/12/19 Range/Units 07:11 07:11 13:20 WBC (3.8-10.6) k/uL RBC (4.30-5.90) m/uL Hgb (13.0-17.5) gm/dL Hct (39.0-53.0) % MCHC (31.0-37.0) g/dL Sodium 134 L (137-145) mmol/L Glucose 157 H (74-99) mg/dL Plasma Lactic Acid Kal 2.1 H* 3.4 H* (0.7-2.0) mmol/L AST 75 H (17-59) U/L ALT 83 H (4-49) U/L 06/12/19 Range/Units 17:20 WBC (3.8-10.6) k/uL RBC (4.30-5.90) m/uL Hgb (13.0-17.5) gm/dL Hct (39.0-53.0) % MCHC (31.0-37.0) g/dL Sodium (137-145) mmol/L Glucose (74-99) mg/dL Plasma Lactic Acid Kal 2.2 H* (0.7-2.0) mmol/L AST (17-59) U/L ALT (4-49) U/L Microbiology - Last 24 Hours (Table) 06/11/19 09:08 Blood Culture - Preliminary Blood No Growth after 24 hours Assessment and Plan (1) Exacerbation of Crohn's disease Current Visit: Yes Status: Acute Code(s): K50.90 - CROHN'S DISEASE, UNSPECIFIED, WITHOUT COMPLICATIONS SNOMED Code(s): 95303149 (2) Abdominal pain Current Visit: No Status: Acute Code(s): R10.9 - UNSPECIFIED ABDOMINAL PAIN SNOMED Code(s): 19014526 (3) Hypertension Current Visit: No Status: Acute Code(s): I10 - ESSENTIAL (PRIMARY) HYPERTENSION SNOMED Code(s): 66956417 (4) Opiate dependence Current Visit: No Status: Acute Code(s): F11.20 - OPIOID DEPENDENCE, UNCOMPLICATED SNOMED Code(s): 39869603 Plan: Continue current regimen of treatment with SoluMed Medrol. check CBC and CMP in a.m. Advance diet today. anticipate discharge in the next 48 hours if stable. Appreciate GI input.
--- NOTE | 2019-06-12 22:36 | P.PN ---
Subjective Progress Note Date: 06/12/19 Principal diagnosis: Crohn's disease involving the small bowel, history of recurrent Clostridium difficile colitis, IBS, abdominal pain Patient seen lying in bed. Reports abdominal pain is improved. Still no bowel movements. Passing gas. Objective - Vital Signs Vital signs: Vital Signs Temp 97.6 F 06/12/19 07:20 Pulse 67 06/12/19 07:45 Resp 16 06/12/19 07:45 BP 124/80 06/12/19 07:20 Pulse Ox 98 06/12/19 07:20 Intake & Output 06/11/19 06/12/19 06/12/19 18:59 06:59 18:59 Output Total 200 Balance -200 Output: Urine 200 Other: Voiding Method Toilet Toilet Toilet # Voids 3 # Bowel Movements 0 - Exam On physical examination, patient appears comfortable in no apparent distress. HEAD: Normocephalic, atraumatic. EYES: No scleral icterus. No conjunctival injection. MOUTH: No lesions, tongue midline. NECK: Trachea midline, no gross abnormalities. ABDOMEN: Soft, glass cut off tender to palpation. Bowel sounds are positive. No organomegaly. No guarding or rigidity. EXTREMITIES: No pedal edema. SKIN: No rashes, no jaundice. NEUROLOGIC: Alert and oriented x3. No focal deficits. - Labs CBC & Chem 7: 06/12/19 07:11 06/12/19 07:11 Labs: Abnormal Lab Results - Last 24 Hours (Table) 06/11/19 06/11/19 06/11/19 Range/Units 14:39 18:11 22:38 WBC (3.8-10.6) k/uL RBC (4.30-5.90) m/uL Hgb (13.0-17.5) gm/dL Hct (39.0-53.0) % MCHC (31.0-37.0) g/dL Sodium (137-145) mmol/L Glucose (74-99) mg/dL Plasma Lactic Acid Kal 2.9 H* 5.0 H* 2.4 H* (0.7-2.0) mmol/L AST (17-59) U/L ALT (4-49) U/L 06/12/19 06/12/19 06/12/19 Range/Units 02:39 07:11 07:11 WBC 11.0 H (3.8-10.6) k/uL RBC 3.94 L (4.30-5.90) m/uL Hgb 10.7 L (13.0-17.5) gm/dL Hct 35.3 L (39.0-53.0) % MCHC 30.2 L (31.0-37.0) g/dL Sodium 134 L (137-145) mmol/L Glucose 157 H (74-99) mg/dL Plasma Lactic Acid Kal 2.3 H* (0.7-2.0) mmol/L AST 75 H (17-59) U/L ALT 83 H (4-49) U/L 06/12/19 06/12/19 Range/Units 07:11 13:20 WBC (3.8-10.6) k/uL RBC (4.30-5.90) m/uL Hgb (13.0-17.5) gm/dL Hct (39.0-53.0) % MCHC (31.0-37.0) g/dL Sodium (137-145) mmol/L Glucose (74-99) mg/dL Plasma Lactic Acid Kal 2.1 H* 3.4 H* (0.7-2.0) mmol/L AST (17-59) U/L ALT (4-49) U/L Microbiology - Last 24 Hours (Table) 06/11/19 09:08 Blood Culture - Preliminary Blood No Growth after 24 hours Assessment and Plan (1) Exacerbation of Crohn's disease Narrative/Plan: 69-year-old male with a long-standing history of Crohn's disease involving the small bowel maintained on Humira every 2 weeks for the past 3 years. Patient is status post terminal ileal resection in the past. He presented to the hospital with abdominal pain, nausea, vomiting and diarrhea with negative computed tomography scan with suspicion for flareup of Crohn's ileitis. Current Visit: Yes Status: Acute Code(s): K50.90 - CROHN'S DISEASE, UN SPECIFIED, WITHOUT COMPLICATIONS SNOMED Code(s): 58953454 (2) Abdominal pain Current Visit: No Status: Acute Code(s): R10.9 - UNSPECIFIED ABDOMINAL PAIN SNOMED Code(s): 79587275 (3) History of Clostridium difficile colitis Current Visit: No Status: Acute Code(s): Z86.19 - PERSONAL HISTORY OF OTHER INFECTIOUS AND PARASITIC DISEASES SNOMED Code(s): 571347712 Plan: Supportive care Clear liquid diet, advance to low fiber low residual as tolerated Oral prednisone initiated Continue to monitor CBC, CMP in Continue to monitor symptoms Stool studies pending Thank you for allowing us to participate in the care of the patient we will continue to follow
[2019-06-13] MEDS: MORPHINE SULFATE 4 MG/ML SYRINGE IV PRN ×5 (00:17→23:54)
[2019-06-13] MEDS: KETOROLAC 30 MG/ML 1 ML VIAL IVP PRN ×2 (05:25→21:19)
[2019-06-13] MEDS: PIPERACILLIN-TAZOBACTAM 3.375 GM in SODIUM CHLORIDE 0.9% 100 ML IVPB SCH ×3 (05:25→21:04)
[2019-06-13] MEDS: SODIUM CHLORIDE 0.9% 1,000 ML IV SCH ×3 (05:26→23:54)
[2019-06-13] MEDS: CYCLOBENZAPRINE 10 MG TAB PO SCH ×2 (07:16→21:04)
[2019-06-13] MEDS: amLODIPine 10 MG TAB PO SCH (07:16)
[2019-06-13] MEDS: ALLOPURINOL 100 MG TAB PO SCH ×2 (07:16→21:04)
[2019-06-13] MEDS: PANTOPRAZOLE 40 MG TABLET PO SCH (07:17)
[2019-06-13] MEDS: predniSONE 20 MG TAB PO SCH (07:18)
--- NOTE | 2019-06-13 08:59 | P.PN ---
Subjective Principal diagnosis: Crohn's colitis The patient is here essentially for recurrent Crohn's flareup. The patient still states some bloating but states appetite is slowly improving. I would adVance diet today. He still has some Protuberance but the appetite is improving Appetite is coming back. Less tenderness is also noted in his abdomen. Objective - Vital Signs Vital signs: Vital Signs Temp 97.6 F 06/13/19 02:58 Pulse 56 L 06/13/19 02:58 Resp 17 06/13/19 07:10 BP 169/86 06/13/19 02:58 Pulse Ox 97 06/13/19 02:58 Intake & Output 06/12/19 06/13/19 06/13/19 18:59 06:59 18:59 Other: Voiding Method Toilet Toilet Toilet # Bowel Movements 0 3 - Constitutional General appearance: Present: average body habitus - EENT Eyes: Absent: abnormal pupil - Neck Neck: Absent: lymphadenopathy - Respiratory Respiratory: bilateral: CTA - Cardiovascular Rhythm: regular Heart sounds: normal: S1, S2 Abnormal Heart Sounds: Present: S3 Gallop - Gastrointestinal General gastrointestinal: Absent: soft, tenderness - Integumentary Integumentary: Absent: rash - Labs CBC & Chem 7: 06/12/19 07:11 06/12/19 07:11 Labs: Abnormal Lab Results - Last 24 Hours (Table) 06/12/19 06/12/19 06/12/19 Range/Units 07:11 13:20 17:20 Plasma Lactic Acid Kal 2.1 H* 3.4 H* 2.2 H* (0.7-2.0) mmol/L Microbiology - Last 24 Hours (Table) 06/11/19 09:08 Blood Culture - Preliminary Blood No Growth after 24 hours Assessment and Plan (1) Exacerbation of Crohn's disease Current Visit: Yes Status: Acute Code(s): K50.90 - CROHN'S DISEASE, UNSPECIFIED, WITHOUT COMPLICATIONS SNOMED Code(s): 05310287 (2) Abdominal pain Current Visit: No Status: Acute Code(s): R10.9 - UNSPECIFIED ABDOMINAL PAIN SNOMED Code(s): 61553226 (3) Hypertension Current Visit: No Status: Acute Code(s): I10 - ESSENTIAL (PRIMARY) HYPERTENSION SNOMED Code(s): 38131119 (4) Opiate dependence Current Visit: No Status: Acute Code(s): F11.20 - OPIOID DEPENDENCE, UNCOMPLICATED SNOMED Code(s): 67424501 Plan: Continue current regimen of treatment with SoluMed Medrol. check CBC and CMP in a.m. Anticipate discharge in a.m. Appreciate GI input. Time with Patient: Less than 30
[2019-06-13 09:02] VITALS: RESP 16
[2019-06-13] MEDS: BUPRENORPHINE HCL PO SCH (17:30)
[2019-06-13] MEDS: [UNRECOGNIZED DRUG - OTHER] PO SCH (17:30)
[2019-06-13] MEDS: NALOXONE HCL PO SCH (17:30)
[2019-06-14] MEDS: PIPERACILLIN-TAZOBACTAM 3.375 GM in SODIUM CHLORIDE 0.9% 100 ML IVPB SCH ×2 (02:52→10:59)
--- NOTE | 2019-06-14 06:33 | P.PN ---
Subjective Progress Note Date: 06/13/19 Principal diagnosis: Crohn's disease involving the small bowel, history of recurrent Clostridium difficile colitis, IBS, abdominal pain Patient seen sitting in bed eating lunch. Patient reports a normal nonbloody bowel movement, somewhat soft in consistency. Objective - Vital Signs Vital signs: Vital Signs Temp 98.8 F 06/13/19 07:30 Pulse 64 06/13/19 07:35 Resp 16 06/13/19 07:35 BP 190/87 06/13/19 07:30 Pulse Ox 96 06/13/19 07:30 Intake & Output 06/12/19 06/13/19 06/13/19 18:59 06:59 18:59 Other: Voiding Method Toilet Toilet Toilet # Bowel Movements 0 3 - Exam On physical examination, patient appears comfortable in no apparent distress. HEAD: Normocephalic, atraumatic. EYES: No scleral icterus. No conjunctival injection. MOUTH: No lesions, tongue midline. NECK: Trachea midline, no gross abnormalities. ABDOMEN: Soft, turpentine distiller to palpation. Bowel sounds are positive. No organomegaly. No guarding or rigidity. EXTREMITIES: No pedal edema. SKIN: No rashes, no jaundice. NEUROLOGIC: Alert and oriented x3. No focal deficits. - Labs CBC & Chem 7: 06/12/19 07:11 06/12/19 07:11 Labs: Abnormal Lab Results - Last 24 Hours (Table) 06/12/19 Range/Units 17:20 Plasma Lactic Acid Kal 2.2 H* (0.7-2.0) mmol/L Microbiology - Last 24 Hours (Table) 06/11/19 09:08 Blood Culture - Preliminary Blood No Growth after 48 hours Assessment and Plan (1) Exacerbation of Crohn's disease Narrative/Plan: 69-year-old male with a long-standing history of Crohn's disease involving the small bowel maintained on Humira every 2 weeks for the past 3 years. Patient is status post terminal ileal resection in the past. He presented to the hospital with abdominal pain, nausea, vomiting and diarrhea with negative computed tomography scan with suspicion for flareup of Crohn's ileitis. Current Visit: Yes Status: Acute Code(s): K50.90 - CROHN'S DISEASE, UNSPECIFIED, WITHOUT COMPLICATIONS SNOMED Code(s): 03591165 (2) Abdominal pain Current Visit: No Status: Acute Code(s): R10.9 - UNSPECIFIED ABDOMINAL PAIN SNOMED Code(s): 84791429 (3) History of Clostridium difficile colitis Current Visit: No Status: Acute Code(s): Z86.19 - PERSONAL HISTORY OF OTHER INFECTIOUS AND PARASITIC DISEASES SNOMED Code(s): 478886477 Plan: Supportive care Okay for low fiber low residual as tolerated Oral prednisone initiated Continue to monitor CBC, CMP in Continue to monitor symptoms Thank you for allowing us to participate in the care of the patient we will continue to follow
[2019-06-14] MEDS: SODIUM CHLORIDE 0.9% 1,000 ML IV SCH (07:50)
[2019-06-14] MEDS: MORPHINE SULFATE 4 MG/ML SYRINGE IV PRN (07:50)
[2019-06-14] MEDS: PANTOPRAZOLE 40 MG TABLET PO SCH (07:53)
[2019-06-14] MEDS: predniSONE 20 MG TAB PO SCH (07:54)
[2019-06-14] MEDS: ALLOPURINOL 100 MG TAB PO SCH (07:54)
[2019-06-14] MEDS: CYCLOBENZAPRINE 10 MG TAB PO SCH (07:55)
[2019-06-14] MEDS: amLODIPine 10 MG TAB PO SCH (08:02)
--- NOTE | 2019-06-14 08:17 | P.DS ---
Providers Date of admission: 06/10/19 03:31 Attending physician: Minh Saldaña Primary care physician: Minh Saldaña - Discharge Diagnosis(es) (1) Exacerbation of Crohn's disease Current Visit: Yes Status: Acute (2) Abdominal pain Current Visit: No Status: Acute (3) Hypertension Current Visit: No Status: Acute (4) Opiate dependence Current Visit: No Status: Acute Hospital Course: This is a continuing progress note/discharge summary on a 69-year-old white male essentially admitted for recurrent Crohn's colitis flare. The patient was started on appropriate steroids and had significant elevation of lactic acid. The patient was placed on appropriate IV antibiotic therapy and the pain is now minimized. No fever or chills patient is tolerating diet without significant voiding difficulties. The patient will placed on appropriate prednisone and antibiotic treatment to follow-up with me in about 5-7 days. Patient Condition at Discharge: Stable Plan - Discharge Summary Discharge Rx Participant: Yes New Discharge Prescriptions: New Amoxicillin/Potassium Clav [Augmentin 875-125 Tablet] 1 tab PO Q12HR 7 Days #14 tab predniSONE [Deltasone] 40 mg PO DAILY #14 tab Continue Orphenadrine Citrate [Orphenadrine Citrate ER] 100 mg PO BID Adalimumab [Humira Pen] 40 mg SQ Q14D Aspirin 325 mg PO DAILY PRN PRN Reason: Pain Febuxostat [Uloric] 80 mg PO DAILY Omeprazole 20 mg PO AC-BID Buprenorphine HCl/Naloxone HCl [Suboxone 2 mg-0.5 mg Sl Film] 1 film SL DAILY@1700 predniSONE 50 mg PO DAILY #10 tablet Multivitamins, Thera [Multivitamin (formulary)] 1 tab PO DAILY amLODIPine [Norvasc] 5 mg PO DAILY Cyclobenzaprine [Flexeril] 10 mg PO BID Discharge Medication List Orphenadrine Citrate [Orphenadrine Citrate ER] 100 mg PO BID 12/08/17 [History] Adalimumab [Humira Pen] 40 mg SQ Q14D 04/25/18 [History] Aspirin 325 mg PO DAILY PRN 05/05/18 [History] Febuxostat [Uloric] 80 mg PO DAILY 05/05/18 [History] Buprenorphine HCl/Naloxone HCl [Suboxone 2 mg-0.5 mg Sl Film] 1 film SL DAILY@1700 12/12/18 [History] Omeprazole 20 mg PO AC-BID 12/12/18 [History] predniSONE 50 mg PO DAILY #10 tablet 12/15/18 [Rx] Cyclobenzaprine [Flexeril] 10 mg PO BID 06/10/19 [History] Multivitamins, Thera [Multivitamin (formulary)] 1 tab PO DAILY 06/10/19 [History] amLODIPine [Norvasc] 5 mg PO DAILY 06/10/19 [History] Amoxicillin/Potassium Clav [Augmentin 875-125 Tablet] 1 tab PO Q12HR 7 Days #14 tab 06/14/19 [Rx] predniSONE [Deltasone] 40 mg PO DAILY #14 tab 06/14/19 [Rx] Follow up Appointment(s)/Referral(s): Minh Saldaña MD [Primary Care Provider] - 1-2 days
[2019-06-14 08:37] VITALS: BP 191/91; PULSE 60; TEMP 97.4
== END 2019-06-14 12:08 | disposition home or self-care (01) | DRG 386 ==
LOC: EC 00:31 → 4SSUR 03:31
PROVIDERS: ADMIT Family Medicine; ATTEND Family Medicine
DX: K50.80 Crohn's disease of both small and large intestine without complications (principal); E87.2 Acidosis; F11.20 Opioid dependence, uncomplicated; K21.9 Gastro-esophageal reflux disease without esophagitis; I25.10 Atherosclerotic heart disease of native coronary artery without angina pectoris; I10 Essential (primary) hypertension; F41.9 Anxiety disorder, unspecified; F32.9 Major depressive disorder, single episode, unspecified; E87.8 Other disorders of electrolyte and fluid balance, not elsewhere classified; M06.9 Rheumatoid arthritis, unspecified; Z79.82 Long term (current) use of aspirin; Z79.899 Other long term (current) drug therapy; Z81.8 Family history of other mental and behavioral disorders; Z82.3 Family history of stroke; Z82.49 Family history of ischemic heart disease and other diseases of the circulatory system; Z86.19 Personal history of other infectious and parasitic diseases; Z87.442 Personal history of urinary calculi; Z87.11 Personal history of peptic ulcer disease; Z90.3 Acquired absence of stomach [part of]; Z91.041 Radiographic dye allergy status; Z90.49 Acquired absence of other specified parts of digestive tract; Z90.89 Acquired absence of other organs; Z98.890 Other specified postprocedural states
CPT/HCPCS: 36415; 74018; 74019; 74176; 80048; 80053; 81003; 83605; 83690; 85025; 85027; 87040; 96374; 96375; 96376; 99285

== ENCOUNTER 2019-09-08 00:06 | Inpatient (IN) | payer BC, MEDICARE ==
[2019-09-08] MEDS ORDERED: SODIUM CHLORIDE 0.9% 1,000 ML IV STA (00:41)
[2019-09-08] MEDS ORDERED: ONDANSETRON 4 MG/2 ML VIAL IVP STA (00:41)
[2019-09-08] MEDS ORDERED: HYDROmorphone 0.5 MG/0.5 ML SYRINGE IVP STA ×2 (00:41→02:08)
--- NOTE | 2019-09-08 00:50 | ED ---
General Adult HPI - General Chief complaint: Nausea/Vomiting/Diarrhea Stated complaint: Abdominal Pain Time Seen by Provider: 09/08/19 00:21 Source: patient, RN notes reviewed Mode of arrival: ambulatory Limitations: no limitations - History of Present Illness Initial comments: 69-year-old male with a past medical history of GERD, hypertension, renal di sease, Crohn's, IBS presents to the emergency department for a chief complaint of abdominal pain. Patient states this started yesterday. Patient states this feels like a Crohn's flare. Patient states he has been having diarrhea on and off since yesterday and feels that his abdomen is bloated. Patient does take Humira for Crohn's. Does not take steroids. Patient states he has had multiple abdominal surgeries in the past. Sees Dr. Yancey as his GI physician. Triage note states patient is given a back pain however he states he always has this back pain and it is not any worse than normal. States it is from a herniated disc. States this is not why he is in the emergency room.Patient has no other complaints at this time including shortness of breath, chest pain, nausea or vomiting, headache, or visual changes. - Related Data Home Medications Medication Instructions Recorded Confirmed Orphenadrine Citrate [Orphenadrine 100 mg PO BID 12/08/17 06/10/19 Citrate ER] Adalimumab [Humira Pen] 40 mg SQ Q14D 04/25/18 06/10/19 Aspirin 325 mg PO DAILY PRN 05/05/18 06/10/19 Febuxostat [Uloric] 80 mg PO DAILY 05/05/18 06/10/19 Buprenorphine HCl/Naloxone HCl 1 film SL DAILY@1700 12/12/18 06/10/19 [Suboxone 2 mg-0.5 mg Sl Film] Omeprazole 20 mg PO AC-BID 12/12/18 06/10/19 Cyclobenzaprine [Flexeril] 10 mg PO BID 06/10/19 06/10/19 Multivitamins, Thera [Multivitamin 1 tab PO DAILY 06/10/19 06/10/19 (formulary)] amLODIPine [Norvasc] 5 mg PO DAILY 06/10/19 06/10/19 Previous Rx's Medication Instructions Recorded predniSONE 50 mg PO DAILY #10 tablet 12/15/18 Amoxicillin/Potassium Clav 1 tab PO Q12HR 7 Days #14 tab 06/14/19 [Augmentin 875-125 Tablet] predniSONE [Deltasone] 40 mg PO DAILY #14 tab 06/14/19 Allergies Allergy/AdvReac Type Severity Reaction Status Date / Time Iodinated Contrast Media Allergy Anaphylaxis Verified 09/08/19 00:14 [Iodinated Contrast Media - IV Dye] Review of Systems ROS Statement: Those systems with pertinent positive or pertinent negative responses have been documented in the HPI. ROS Other: All systems not noted in ROS Statement are negative. Past Medical History Past Medical History: GERD/Reflux, Hypertension, Renal Disease, Rheumatoid Arthritis (RA), Skin Disorder, Supraventricular Tachycardia (SVT) Additional Past Medical History / Comment(s): hx CROHN'S (takes tresa), IBS, chronic diarrhea, migraines-just a couple, hx SVT with ablation, hx ulcers, anemia, generalized gout, kidney stones pt passed on his own, psoriasis, bilateral tinnitis., History of Any Multi-Drug Resistant Organisms: None Reported Date of last positivie culture/infection: None MDRO Source:: None Past Surgical History: Bowel Resection, Cardiac Ablation, Cholecystectomy, Heart Catheterization, Hernia Repair, Orthopedic Surgery, Tonsillectomy Additional Past Surgical History / Comment(s): partial gastrectomy (ulcers), bowel resections, fecal transplant, bilateral knee arthroscopic surgery, EGD/colonoscopies, R inguinal hernia repair, bilat cataract removal. Past Anesthesia/Blood Transfusion Reactions: Blood Transfusion Reaction, Motion Sickness Additional Past Anesthesia/Blood Transfusion Reaction / Comment(s): BLOOD TRANSFUSION- BROKE OUT IN HIVES age 21 Past Psychological History: Anxiety, Depression Smoking Status: Never smoker Past Alcohol Use History: Occasional Past Drug Use History: None Reported - Past Family History Father Family Medical History: Dementia Additional Family Medical History / Comment(s): Father at the age of 86yrs. Mother Family Medical History: Myocardial Infarction ([place]), Pulmonary Embolus Additional Family Medical History / Comment(s): AGE 73-[place], STROKE DURING CARATID PROCEDURE General Exam Limitations: no limitations General appearance: alert, in no apparent distress Head exam: Present: atraumatic, normocephalic, normal inspection Eye exam: Present: normal appearance, PERRL, EOMI. Absent: scleral icterus, conjunctival injection, periorbital swelling ENT exam: Present: normal exam, mucous membranes moist Neck exam: Present: normal inspection, full ROM. Absent: tenderness, meningismus, lymphadenopathy Respiratory exam: Present: normal lung sounds bilaterally. Absent: respiratory distress, wheezes, rales, rhonchi, stridor Cardiovascular Exam: Present: regular rate, normal rhythm, normal heart sounds. Absent: systolic murmur, diastolic murmur, rubs, gallop, clicks GI/Abdominal exam: Present: soft, distended, normal bowel sounds. Absent: tenderness (No significant tenderness), guarding, rebound, rigid Back exam: Absent: CVA tenderness (R), CVA tenderness (L) Neurological exam: Present: alert Course Vital Signs 09/08/19 09/08/19 00:09 00:35 Temperature 98.7 F Pulse Rate 90 Respiratory 18 Rate Blood Pressure 188/120 166/81 O2 Sat by Pulse 98 Oximetry Medical Decision Making - Medical Decision Making Vitals are stable. HPI and physical exam is documented. CBC is unremarkable. White count of 6.4. CMP unremarkable. CT abdomen and pelvis was without contrast was performed as patient is ALLERGIC to contrast even with premedication. CT showed mild fibrotic changes and atelectasis at lung bases increased compared to old exam. Old granulomatous change. Numerous then obstr ucting renal calculi unchanged. Previous surgery at the cecum. No evidence of acute inflammatory bowel disease. Bowel unchanged from old exam. I did discuss trying outpatient steroids with patient however he is very concerned about his pain and after multiple doses of pain medication is still in significant pain. Patient will be admitted for intractable abdominal pain as well as Crohn's exace rbation. - Lab Data Result diagrams: 09/08/19 00:45 09/08/19 00:45 Lab Results 09/08/19 09/08/19 09/08/19 Range/Units 00:45 00:45 00:45 WBC 6.4 (3.8-10.6) k/uL RBC 3.74 L (4.30-5.90) m/uL Hgb 10.1 L (13.0-17.5) gm/dL Hct 33.0 L (39.0-53.0) % MCV 88.2 (80.0-100.0) fL MCH 27.1 (25.0-35.0) pg MCHC 30.7 L (31.0-37.0) g/dL RDW 15.0 (11.5-15.5) % Plt Count 205 (150-450) k/uL Neutrophils % 51 % Lymphocytes % 34 % Monocytes % 6 % Eosinophils % 5 % Basophils % 1 % Neutrophils # 3.3 (1.3-7.7) k/uL Lymphocytes # 2.2 (1.0-4.8) k/uL Monocytes # 0.4 (0-1.0) k/uL Eosinophils # 0.3 (0-0.7) k/uL Basophils # 0.0 (0-0.2) k/uL Hypochromasia Slight Sodium 139 (137-145) mmol/L Potassium 4.1 (3.5-5.1) mmol/L Chloride 115 H (98-107) mmol/L Carbon Dioxide 16 L (22-30) mmol/L Anion Gap 8 mmol/L BUN 16 (9-20) mg/dL Creatinine 1.03 (0.66-1.25) mg/dL Est GFR (CKD-EPI)AfAm 86 (>60 ml/min/1.73 sqM) Est GFR (CKD-EPI)NonAf 74 (>60 ml/min/1.73 sqM) Glucose 101 H (74-99) mg/dL Plasma Lactic Acid Kal (0.7-2.0) mmol/L Calcium 8.8 (8.4-10.2) mg/dL Total Bilirubin 0.4 (0.2-1.3) mg/dL AST 38 (17-59) U/L ALT 25 (4-49) U/L Alkaline Phosphatase 57 (38-126) U/L Total Protein 7.3 (6.3-8.2) g/dL Albumin 3.6 (3.5-5.0) g/dL Amylase 125 H (30-110) U/L Lipase 73 (23-300) U/L Urine Color Light Yellow Urine Appearance Clear (Clear) Urine pH 5.5 (5.0-8.0) Ur Specific [place] 1.012 (1.001-1.035) Urine Protein Negative (Negative) Urine Glucose (UA) Negative (Negative) Urine Ketones Negative (Negative) Urine Blood Negative (Negative) Urine Nitrite Negative (Negative) Urine Bilirubin Negative (Negative) Urine Urobilinogen <2.0 (<2.0) mg/dL Ur Leukocyte Esterase Negative (Negative) 05/23/20 Range/Units 00:45 WBC (3.8-10.6) k/uL RBC (4.30-5.90) m/uL Hgb (13.0-17.5) gm/dL Hct (39.0-53.0) % MCV (80.0-100.0) fL MCH (25.0-35.0) pg MCHC (31.0-37.0) g/dL RDW (11.5-15.5) % Plt Count (150-450) k/uL Neutrophils % % Lymphocytes % % Monocytes % % Eosinophils % % Basophils % % Neutrophils # (1.3-7.7) k/uL Lymphocytes # (1.0-4.8) k/uL Monocytes # (0-1.0) k/uL Eosinophils # (0-0.7) k/uL Basophils # (0-0.2) k/uL Hypochromasia Sodium (137-145) mmol/L Potassium (3.5-5.1) mmol/L Chloride (98-107) mmol/L Carbon Dioxide (22-30) mmol/L Anion Gap mmol/L BUN (9-20) mg/dL Creatinine (0.66-1.25) mg/dL Est GFR (CKD-EPI)AfAm (>60 ml/min/1.73 sqM) Est GFR (CKD-EPI)NonAf (>60 ml/min/1.73 sqM) Glucose (74-99) mg/dL Plasma Lactic Acid Kal 0.7 (0.7-2.0) mmol/L Calcium (8.4-10.2) mg/dL Total Bilirubin (0.2-1.3) mg/dL AST (17-59) U/L ALT (4-49) U/L Alkaline Phosphatase (38-126) U/L Total Protein (6.3-8.2) g/dL Albumin (3.5-5.0) g/dL Amylase (30-110) U/L Lipase (23-300) U/L Urine Color Urine Appearance (Clear) Urine pH (5.0-8.0) Ur Specific [place] (1.001-1.035) Urine Protein (Negative) Urine Glucose (UA) (Negative) Urine Ketones (Negative) Urine Blood (Negative) Urine Nitrite (Negative) Urine Bilirubin (Negative) Urine Urobilinogen (<2.0) mg/dL Ur Leukocyte Esterase (Negative) Disposition Clinical Impression: Crohns disease, Diarrhea, Abdominal pain Disposition: ADMITTED IP TO THIS HOSP Condition: Fair Referrals: Minh Saldaña MD [Primary Care Provider] - 1-2 days Time of Disposition: 02:14
[2019-09-08 01:03] LABS: Appearance,Urine Clear (Clear); Basophils % (A) 1 %; Bilirubin,Urine Negative (Negative); Blood,Urine Negative (Negative); Color,Urine Light Yellow; Eosinophils # (A) 0.3 k/uL (0-0.7); Eosinophils % (A) 5 %; Glucose,Urine (UA) Negative (Negative); HGB 10.1 gm/dL (13.0-17.5); Hypochromasia Slight; Ketones,Urine Negative (Negative); Leukocyte Esterase,Urine Negative (Negative); Lymphocytes # (A) 2.2 k/uL (1.0-4.8); Lymphocytes % (A) 34 %; MCH 27.1 pg (25.0-35.0); MCHC 30.7 g/dL (31.0-37.0); MCV 88.2 fL (80.0-100.0); Mean Platelet Volume 7.3; Monocytes # (A) 0.4 k/uL (0-1.0); Monocytes % (A) 6 %; Neutrophils # (A) 3.3 k/uL (1.3-7.7); Neutrophils % (A) 51 %; Nitrite,Urine Negative (Negative); PH, Urine 5.5 (5.0-8.0); Platelet Count 205 k/uL (150-450); Protein,Urine Negative (Negative); RBC 3.74 m/uL (4.30-5.90); Specific Gravity,Urine 1.012 (1.001-1.035); Urobilinogen,Urine <2.0 mg/dL (<2.0); WBC 6.4 k/uL (3.8-10.6)
[2019-09-08 01:09] LABS: Albumin 3.6 g/dL (3.5-5.0); Calcium 8.8 mg/dL (8.4-10.2); Potassium 4.1 mmol/L (3.5-5.1); Total Bilirubin 0.4 mg/dL (0.2-1.3); Total Protein 7.3 g/dL (6.3-8.2)
[2019-09-08] MEDS ORDERED: methylPREDNISolone SOD SUCCI 125 MG/2 ML VIAL IV STA ×2 (01:15→02:09)
[2019-09-08] MEDS ORDERED: diphenhydrAMINE 50 MG/ML 1 ML VIAL IVP STA (01:15)
[2019-09-08] MEDS ORDERED: FAMOTIDINE 20 MG/2 ML VIAL IV STA (01:16)
--- NOTE | 2019-09-08 01:50 | CT ---
EXAMINATION TYPE: CT abdomen pelvis wo con DATE OF EXAM: 09/08/2019 COMPARISON: 06/10/2019 HISTORY: Abd Pain, Crohn's Disease CT DLP: 608.50 mGycm Automated exposure control for dose reduction was used. There is subpleural interstitial infiltrates at the posterior lung bases. Heart is enlarged. There is no pericardial effusion. There is no pleural effusion. There are clips from cholecystectomy. Liver shows no focal defect. There are numerous small calcified splenic granulomata. There is no pancreatic mass. There are surgical clips at the gastroesophageal j unction. Stomach is intact. The bile ducts are not dilated. There is no adrenal mass. There are numerous bilateral renal calculi that measure up to 4 mm. The ure ters are not dilated. There is no hydronephrosis. There is 3 cm cortical cyst posterior right kidney. There is no retroperitoneal adenopathy. There is no ascites or free air. There is no bowel obstructio n. There is previous surgery at the cecum. Bladder distends smoothly. There is no evidence of a pelvi c mass. There is no mesenteric edema. I see no intestinal wall thickening. There is no dilated loops. Lumbar spine is intact. Bony pelvis is intact. IMPRESSION: Mild fibrotic changes and subsegmental atelectasis at the lung bases increased compared to old exam. Old granulomatous disease. Numerous nonobstructing renal calculi unchanged. Previous surgery at the c ecum. No evidence of active inflammatory bowel disease. Bowel unchanged compared to old exam.
[2019-09-08] MEDS ORDERED: ONDANSETRON 4 MG/2 ML VIAL IVP PRN (02:10)
[2019-09-08] MEDS ORDERED: NALOXONE 0.4 MG/ML 1 ML VIAL IV PRN (02:10)
[2019-09-08] MEDS: SODIUM CHLORIDE 0.9% 1,000 ML IV SCH ×3 (02:23→19:17)
[2019-09-08] MEDS: HYDROmorphone 0.5 MG/0.5 ML SYRINGE IVP PRN ×6 (05:48→22:17)
[2019-09-08] MEDS ORDERED: methylPREDNISolone SOD SUCCI 125 MG/2 ML VIAL IV SCH (10:00)
[2019-09-08] MEDS: methylPREDNISolone SOD SUCCI 40 MG/ML 1 ML VIAL IV SCH ×3 (12:52→23:39)
[2019-09-08] MEDS ORDERED: ASPIRIN 325 MG TAB PO PRN (13:10)
[2019-09-08] MEDS ORDERED: CYCLOBENZAPRINE 10 MG TAB PO PRN (13:10)
--- NOTE | 2019-09-08 13:37 | CONS ---
CONSULTATION DATE OF SERVICE: September 08, 2019. REQUESTING PHYSICIAN: Dr. Saldaña. REASON FOR CONSULTATION: Abdominal pain and history of Crohn's disease. HISTORY OF PRESENT ILLNESS: The patient is a 69-year-old pleasant white male who is known to me from his multiple office visits, had longstanding history of Crohn's disease involving the small bowel for which he underwent a small bowel resection in 2017 and has been maintained on Humira 40 mg every 2 weeks since then. His last hospitalization was in April of this year. He was admitted to hospital because of worsening abdominal pain, abdominal distention and had several bowel movements yesterday. He had about 10-15 loose watery bowel movements yesterday. The pain continued to progressively get worse. He had some nausea and also started having some back pain. He came to the emergency room and subsequently admitted to the hospital for further evaluation. He was started on IV Solu-Medrol 60 mg q.8 hours. He also had a CT of the abdomen and pelvis done that did not show any evidence of bowel obstruction. This morning he is feeling better. He did not have any bowel movement so far. Abdominal pain is diffuse, mostly in the right lower quadrant area. No further episodes of nausea, vomiting. He denies any fever, chills, or night sweats. CURRENT MEDICATIONS: Include omeprazole, Celexa, multivitamin, Humira, Norvasc, aspirin. ALLERGIES: TO IODINE, IV DYE. PAST SURGICAL HISTORY: Small bowel resection in 2017, EGD, colonoscopy in 2017, partial gastrectomy for prior history of peptic ulcer disease, bilateral knee arthroscopy, right inguinal hernia repair also. FAMILY HISTORY: Father with dementia. Mother had [place] and coronary artery disease. SOCIAL HISTORY: No smoking. No alcohol use. REVIEW OF SYSTEMS: CARDIOPULMONARY: No chest pain, shortness of breath. GENITOURINARY: No dysuria or hematuria. MUSCULOSKELETAL: Back pain radiating to the right leg yesterday. NEUROLOGY unremarkable. PSYCHIATRIC unremarkable. ENT/vision unremarkable. CONSTITUTIONAL: No recent weight loss. No fever, chills, night sweats. PHYSICAL EXAMINATION: He appears comfortable. No apparent distress. VITAL SIGNS: Stable. Blood pressure is 140/68, pulse is 61, temperature 98.2. HEENT examination unremarkable. Conjunctivae pink. Sclerae anicteric. Oral cavity no lesions. NECK: No JVD or lymph node enlargement. CHEST: Clear to auscultation. HEART: Regular rate and rhythm. ABDOMEN: Soft. Bowel sounds are positive. No organomegaly. Slightly distended. There was mild diffuse tenderness noted throughout the abdomen. EXTREMITIES: No pedal edema. SKIN no rashes. NEUROLOGIC: Alert and oriented x3. No focal deficits. LABS: WBC 6.4, hemoglobin 10.1, platelets normal. Basic metabolic panel is within normal limits. AST, ALT, T-bilirubin and alkaline phosphatase are normal. CT of the abdomen done in the ER yesterday did not show any evidence of bowel obstruction. There was mild fibrotic changes in the right lung base and numerous nonobstructing renal calculi. IMPRESSION: 1. The patient with a longstanding history of Crohn's disease involving the small bowel who has been maintained on Humira on an outpatient basis for the last 3 years, presents to hospital with abdominal pain, abdominal distention and severe diarrhea for the last 3-4 days. He was started on IV Solu-Medrol 60 mg q.8 hours in the emergency room yesterday and he is feeling much better this morning. Most likely we are dealing with exacerbation of Crohn's disease. CT scan of the abdomen did not show any evidence of bowel obstruction. 2. 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 We will repeat C difficile toxin. 3. History of rheumatoid arthritis. 4. History of peptic ulcer disease. RECOMMENDATIONS: 1. Continue Solu-Medrol but decrease to 20 mg q.8 hours. 2. We will start him on a regular diet. 3. Pain medications as needed. 4. Obtain stool for C difficile toxin. 5. We will follow with you closely. Thank you for this consultation. MMODL / IJN: [id number] /
--- NOTE | 2019-09-08 14:59 | P.HPIM ---
History of Present Illness 69-year-old male with known history of Crohn's disease and on Humira once in 2 weeks given with complaints of the worsening abdominal pain for last few days with the multiple loose bowel movements about 10-[address] of the ab domen did not show any bowel obstruction or abscess. I do not have any CRP is unavailable C. diff testing is being ordered. Patient was started on systemic steroids. Patient is requiring pain medications quite often. And a long- standing history of Crohn's disease underwent bowel resection 2016. Patient denied any fever chills. Patient denied any nausea or vomiting at this time apparently was nauseous last few days. Review of Systems REVIEW OF SYSTEMS: CONSTITUTIONAL: No fever, no malaise, no fatigue. HEENT: No recent visual problems or hearing problems. Denied any sore throat. CARDIOVASCULAR: No chest pain, orthopnea, PND, no palpitations, no syncope. PULMONARY: No shortness of breath, no cough, no hemoptysis. GASTROINTESTINAL: As mentioned in HPI NEUROLOGICAL: No headaches, no weakness, no numbness. HEMATOLOGICAL: Denies any bleeding or petechiae. GENITOURINARY: Denies any burning micturition, frequency, or urgency. MUSCULOSKELETAL/RHEUMATOLOGICAL: Denies any joint pain, swelling, or any muscle pain. ENDOCRINE: Denies any polyuria or polydipsia. The rest of the 14-point review of systems is negative. Past Medical History Past Medical History: GERD/Reflux, Hypertension, Renal Disease, Rheumatoid Arthritis (RA), Skin Disorder, Supraventricular Tachycardia (SVT) Additional Past Medical History / Comment(s): hx CROHN'S (takes tresa), IBS, chronic diarrhea, migraines-just a couple, hx SVT with ablation, hx ulcers, anemia, generalized gout, kidney stones pt passed on his own, psoriasis, bilateral tinnitis., pinched sciatic nerve History of Any Multi-Drug Resistant Organisms: None Reported Date of last positivie culture/infection: None MDRO Source:: None Past Surgical History: Bowel Resection, Cardiac Ablation, Cholecystectomy, Heart Catheterization, Hernia Repair, Orthopedic Surgery, Tonsillectomy Additional Past Surgical History / Comment(s): partial gastrectomy (ulcers), bowel resections, fecal transplant, bilateral knee arthroscopic surgery, EGD/colonoscopies, R inguinal hernia repair, bilat cataract removal. Past Anesthesia/Blood Transfusion Reactions: Blood Transfusion Reaction, Motion Sickness Additional Past Anesthesia/Blood Transfusion Reaction / Comment(s): BLOOD JETER SFUSION- BROKE OUT IN HIVES age 21 Past Psychological History: Anxiety, Depression Additional Psychological History / Comment(s): Retired due to his health. Pt resides with his spouse. He has hx of opiate dependency and is on suboxone. He is independent. Smoking Status: Never smoker Past Alcohol Use History: Occasional Past Drug Use History: None Reported Additional Drug Use History / Comment(s): Hx of opiate dependency-on suboxone. - Past Family History Father Family Medical History: Dementia Additional Family Medical History / Comment(s): Father at the age of 86yrs. Mother Family Medical History: Myocardial Infarction ([place]), Pulmonary Embolus Additional Family Medical History / Comment(s): AGE 73-[place], STROKE DURING CARATID PROCEDURE Medications and Allergies Home Medications Medication Instructions Recorded Confirmed Type Orphenadrine Citrate [Orphenadrine 100 mg PO BID 12/08/17 09/08/19 History Citrate ER] Adalimumab [Humira Pen] 40 mg SQ Q14D 04/25/18 09/08/19 History Aspirin 325 mg PO DAILY PRN 05/05/18 09/08/19 History Febuxostat [Uloric] 80 mg PO DAILY 05/05/18 09/08/19 History Buprenorphine HCl/Naloxone HCl 1 film SL DAILY 12/12/18 09/08/19 History [Suboxone 2 mg-0.5 mg Sl Film] Omeprazole 20 mg PO AC-BID 12/12/18 09/08/19 History Cyclobenzaprine [Flexeril] 10 mg PO HS PRN 06/10/19 09/08/19 History Multivitamins, Thera [Multivitamin 1 tab PO DAILY 06/10/19 09/08/19 History (formulary)] amLODIPine [Norvasc] 5 mg PO DAILY 06/10/19 09/08/19 History Allergies Allergy/AdvReac Type Severity Reaction Status Date / Time Iodinated Contrast Media Allergy Anaphylaxis Verified 09/08/19 08:10 [Iodinated Contrast Media - IV Dye] Physical Exam Vitals: Vital Signs Temp Pulse Pulse Resp BP BP Pulse Ox 09/08/19 07:00 98.2 F 61 16 148/68 98 09/08/19 03:30 97.7 F 65 20 163/76 96 09/08/19 02:29 73 18 177/85 97 09/08/19 00:35 166/81 09/08/19 00:09 98.7 F 90 18 188/120 98 Intake and Output 09/07/19 09/08/19 09/08/19 22:59 06:59 14:59 Intake Total 0 Balance 0 Intake: Oral 0 Other: Voiding Method Toilet # Voids 1 Weight 83.915 kg PHYSICAL EXAMINATION: GENERAL: The patient is alert and oriented x3, not in any acute distress. Well developed, well nourished. HEENT: Pupils are round and equally reacting to light. EOMI. No scleral icterus. No conjunctival pallor. Normocephalic, atraumatic. No pharyngeal erythema. No thyromegaly. CARDIOVASCULAR: S1 and S2 present. No murmurs, rubs, or gallops. PULMONARY: Chest is clear to auscultation, no wheezing or crackles. ABDOMEN: nontender, mild distention, normoactive bowel sounds. No palpable organomegaly. MUSCULOSKELETAL: No joint swelling or deformity. EXTREMITIES: No cyanosis, clubbing, or pedal edema. NEUROLOGICAL: Gross neurological examination did not reveal any focal deficits. SKIN: No rashes. Results CBC & Chem 7: 09/08/19 00:45 09/08/19 00:45 Labs: Abnormal Lab Results - Last 24 Hours (Table) 09/08/19 09/08/19 Range/Units 00:45 00:45 RBC 3.74 L (4.30-5.90) m/uL Hgb 10.1 L (13.0-17.5) gm/dL Hct 33.0 L (39.0-53.0) % MCHC 30.7 L (31.0-37.0) g/dL Chloride 115 H (98-107) mmol/L Carbon Dioxide 16 L (22-30) mmol/L Glucose 101 H (74-99) mg/dL Amylase 125 H (30-110) U/L Thrombosis Risk Factor Assmnt - Choose All That Apply Each Risk Factor Represents 2 Points: Age 61-74 years Thrombosis Risk Factor Assessment Total Risk Factor Score: 2 Thrombosis Risk Factor Assessment Level: Low Risk Assessment and Plan Plan: -Abdominal pain diarrhea: Secondary to Crohn's exacerbation patient will be continued on systemic steroids will obtain ESR and CRP -Rule out C. diff history of C. diff in the past -History of peptic ulcer disease and gastroesophageal reflux disease -Rheumatoid arthritis not in exacerbation, resumed on his home medications -History of SVT in the past -Hypertension -Chronic low back pain -Depression For above-mentioned chronic medical problems patient will be started and continued on appropriate home medications
[2019-09-08] MEDS: CYCLOBENZAPRINE 10 MG TAB PO SCH (21:03)
[2019-09-08] MEDS: TEMAZEPAM 7.5 MG CAP PO PRN (23:39)
[2019-09-09] MEDS: HYDROmorphone 0.5 MG/0.5 ML SYRINGE IVP PRN ×6 (01:26→20:32)
[2019-09-09] MEDS: SODIUM CHLORIDE 0.9% 1,000 ML IV SCH ×3 (04:34→22:36)
[2019-09-09] MEDS: amLODIPine 5 MG TAB PO SCH (08:26)
[2019-09-09] MEDS: CYCLOBENZAPRINE 10 MG TAB PO SCH ×2 (08:26→20:31)
[2019-09-09] MEDS: ALLOPURINOL 100 MG TAB PO SCH (08:26)
[2019-09-09] MEDS: methylPREDNISolone SOD SUCCI 40 MG/ML 1 ML VIAL IV SCH ×2 (08:27→16:00)
[2019-09-09 08:34] VITALS: RESP 16
[2019-09-09] MEDS: NALOXONE HCL SUBLINGUAL SCH (09:14)
[2019-09-09] MEDS: [UNRECOGNIZED DRUG - OTHER] SUBLINGUAL SCH (09:14)
[2019-09-09] MEDS: BUPRENORPHINE HCL SUBLINGUAL SCH (09:14)
[2019-09-09 10:37] LABS: African American GFR (CKD) >90 (>60 ml/min/1.73 sqM); Anion Gap 7 mmol/L; Blood Urea Nitrogen 17 mg/dL (9-20); Calcium 7.6 mg/dL (8.4-10.2); Carbon Dioxide 17 mmol/L (22-30); Chloride 112 mmol/L (98-107); Glucose 167 mg/dL (74-99); Non-African American GFR(CKD) >90 (>60 ml/min/1.73 sqM); Potassium 3.9 mmol/L (3.5-5.1); Sodium 136 mmol/L (137-145)
--- NOTE | 2019-09-09 12:03 | P.PN ---
Subjective patient is admitted for close exacerbation C. diff is negative diarrhea improved continue with the systemic steroids possibility of discharge tomorrow. Constitutional: Denied any fatigue denied any fever. Cardio vascular: denied any chest pain, palpitations Gastrointestinal denied any nausea vomiting Pulmonary: Denied any shortness of breath cough Neurologic denied any new focal deficits All inpatient medications were reviewed and appropriate changes in these medications as dictated in the interval history and assessment and plan. Objective - Vital Signs Vital signs: Vital Signs Temp 97.9 F 09/09/19 08:33 Pulse 81 09/09/19 08:33 Resp 16 09/09/19 08:33 BP 176/83 09/09/19 08:33 Pulse Ox 96 09/09/19 08:33 Intake & Output 09/08/19 09/09/19 09/09/19 18:59 06:59 18:59 Intake Total 960 50 Balance 960 50 Intake: Intake, IV Titration 960 Amount Sodium Chloride 0.9% 1, 960 000 ml @ 120 mls/hr IV . Q8H20M [facility] Rx#:[id number] Oral 50 Other: Voiding Method Toilet # Voids 2 2 # Bowel Movements 1 - Exam PHYSICAL EXAMINATION: GENERAL: The patient is alert and oriented x3, not in any acute distress. Well developed, well nourished. HEENT: Pupils are round and equally reacting to light. EOMI. No scleral icterus. No conjunctival pallor. Normocephalic, atraumatic. No pharyngeal erythema. No thyromegaly. CARDIOVASCULAR: S1 and S2 present. No murmurs, rubs, or gallops. PULMONARY: Chest is clear to auscultation, no wheezing or crackles. ABDOMEN: Soft, nontender, nondistended, normoactive bowel sounds. No palpable organomegaly. MUSCULOSKELETAL: No joint swelling or deformity. EXTREMITIES: No cyanosis, clubbing, or pedal edema. NEUROLOGICAL: Gross neurological examination did not reveal any focal deficits. SKIN: No rashes. - Labs CBC & Chem 7: 09/08/19 00:45 09/09/19 10:06 Labs: Abnormal Lab Results - Last 24 Hours (Table) 09/08/19 09/09/19 Range/Units 00:45 10:06 ESR 29 H (0-15) mm/hr Sodium 136 L (137-145) mmol/L Chloride 112 H (98-107) mmol/L Carbon Dioxide 17 L (22-30) mmol/L Glucose 167 H (74-99) mg/dL Calcium 7.6 L (8.4-10.2) mg/dL Assessment and Plan Plan: -Abdominal pain diarrhea: Secondary to Crohn's exacerbation patient will be continued on systemic steroids will obtain ESR and CRP -Rule out C. diff history of C. diff in the past -History of peptic ulcer disease and gastroesophageal reflux disease -Rheumatoid arthritis not in exacerbation, resumed on his home medications -History of SVT in the past -Hypertension -Chronic low back pain -Depression For above-mentioned chronic medical problems patient will be started and continued on appropriate home medications
[2019-09-09] MEDS: TEMAZEPAM 7.5 MG CAP PO PRN (20:46)
--- NOTE | 2019-09-09 22:59 | PN ---
PROGRESS NOTE DATE OF SERVICE: 09/09/2019 The patient is a 69-year-old pleasant white male admitted to the hospital with exacerbation of Crohn's disease. He was started on IV Solu-Medrol yesterday and is feeling somewhat better today. Yesterday he had severe diarrhea and had about 9 or 9 bowel movements. No blood or mucus in the stool. He still continues to have some mild abdominal pain. No nausea, vomiting. On a regular diet, tolerating well. No fever, chills, night sweats. PHYSICAL EXAMINATION: He appears comfortable, no apparent distress. Vital signs are stable. Blood pressure is 164/82, pulse is 65, temperature 98.8. HEENT examination unremarkable. Conjunctivae pink. Sclerae anicteric. Oral cavity, no lesions. Neck: No JVD or lymph node enlargement. Chest is clear to auscultation. Heart regular rate and rhythm. Abdomen is soft. Bowel sounds are positive. No organomegaly. Extremities: No pedal edema. Skin: No rashes. Neuro alert and oriented x3. No focal deficits. LABS: From today, basic metabolic panel is within normal limits. Stool for C difficile toxin is negative. Coronavirus PCR is negative. IMPRESSION: 1. Exacerbation of Crohn's disease with abdominal pain and diarrhea, which is gradually improving. Remains on IV Solu-Medrol 20 mg q.8 hours. 2. Severe diarrhea. C difficile toxin negative. The patient has prior history of C difficile colitis in the past. 3. Mild anemia. Clinically no evidence of active gastrointestinal bleed. RECOMMENDATIONS: 1. Continue with IV Solu-Medrol 20 mg q.8 hours. 2. Continue with regular diet. 3. Pain medications as needed. 4. If the patient continues to do well will plan on changing the IV steroids to oral prednisone 40 mg daily tomorrow. The plan was discussed with the patient. He is agreeable to it. Thank you for this consultation. MMODL / IJN: [id number] /
[2019-09-10] MEDS: HYDROmorphone 0.5 MG/0.5 ML SYRINGE IVP PRN ×3 (00:28→08:10)
[2019-09-10] MEDS: methylPREDNISolone SOD SUCCI 40 MG/ML 1 ML VIAL IV SCH ×2 (00:28→08:09)
[2019-09-10] MEDS: SODIUM CHLORIDE 0.9% 1,000 ML IV SCH (03:40)
[2019-09-10] MEDS: ALLOPURINOL 100 MG TAB PO SCH (08:09)
[2019-09-10] MEDS: CYCLOBENZAPRINE 10 MG TAB PO SCH (08:09)
[2019-09-10] MEDS: amLODIPine 5 MG TAB PO SCH (08:10)
[2019-09-10 08:11] VITALS: BP 174/91; PULSE 77; TEMP 97.7
[2019-09-10] MEDS: BUPRENORPHINE HCL SUBLINGUAL SCH (08:28)
[2019-09-10] MEDS: [UNRECOGNIZED DRUG - OTHER] SUBLINGUAL SCH (08:28)
[2019-09-10] MEDS: NALOXONE HCL SUBLINGUAL SCH (08:28)
[2019-09-10] MEDS ORDERED: predniSONE 20 MG TAB PO SCH (10:00)
--- NOTE | 2019-09-10 10:54 | PN ---
PROGRESS NOTE DATE OF SERVICE: September 10, 2019. REQUESTING PHYSICIAN: Dr. Saldaña. Patient is a 69-year-old pleasant white male with history of Crohn's disease, admitted to hospital with abdominal pain, diarrhea, and exacerbation of Crohn's. He was started on Solu-Medrol 20 mg q.8 hours. He is doing much better. Still has some diarrhea. Abdominal pain is improved. No nausea, vomiting. He is feeling better, able to tolerate diet. No fever, chills, night sweats. PHYSICAL EXAMINATION: Blood pressure 174/91, pulse rate 77, temperature 97.7. HEENT examination unremarkable. Conjunctivae pink. Sclerae anicteric. Oral cavity no lesions. NECK: No JVD or lymph node enlargement. The chest was clear to auscultation. HEART: Regular rate and rhythm. ABDOMEN is slightly distended but was soft. Bowel sounds are positive. No organomegaly. EXTREMITIES: No pedal edema. SKIN no rashes. NEUROLOGIC: Alert and oriented x3. No focal deficits. IMPRESSION: Exacerbation of Crohn's disease. The patient presents with abdominal pain and diarrhea. Symptoms are gradually improving. He was on IV Solu-Medrol 20 mg q.8 hours, which is going to be discontinued today. He will be started on prednisone 40 mg daily. He was advised to taper it by 5 mg every week. He will continue with Humira 40 mg every 2 weeks. RECOMMENDATION: 1. Advance diet as tolerated. 2. Prednisone 40 mg daily and advised to taper it by 5 mg every week. 3. Continue Humira 40 mg every 2 weeks. 4. Follow up in office in 2 weeks following discharge from the hospital. Thank you for this consultation. MMODL / IJN: [id number] /
--- NOTE | 2019-09-10 12:57 | P.DS ---
Providers Date of admission: 09/08/19 02:09 Expected date of discharge: 09/10/19 Attending physician: Wes العراقي Consults: 09/08/19 02:10 Consult Physician Routine Consulting Provider: Laura aYncey Consult Reason/Comments: abdominal pain, crohn's exacerbation Do you want consulting provider notified?: Yes Primary care physician: Minh Saldaña [facility] Course: Final Diagnosis -Abdominal pain diarrhea: Secondary to Crohn's exacerbation -Ruled out C. diff, history of C. diff in the past -History of peptic ulcer disease and gastroesophageal reflux disease -Rheumatoid arthritis not in exacerbation -History of SVT in the past -Hypertension -Chronic low back pain -Depression Discharge disposition Patient is being discharged in stable condition with guarded prognosis to home and will follow-up with primary care provider along with GI Dr. Yancey in the outpatient setting. Patient will continue on a prednisone taper in the outpatient setting. Total time taken is 35 minutes. History of present illness This is a 69-year-old male who was recently admitted for a Crohn's exacerbation and was being closely monitored. GI evaluated the patient. Patient was initiated on IV steroids and will continue with oral prednisone in the outpatient setting. Patient had multiple episodes of diarrhea and C. diff was negative. Denies any diarrhea today and states he is feeling much better and would like to go home. Currently no reports of abdominal pain, chest pain, shortness of breath, or palpitations. Patient is afebrile. No reports of nausea or vomiting and patient is tolerating diet. Patient will be discharged today. On exam vital signs are stable. Temp is 97.7 F, pulse is 77, respirations are 16, blood pressure is 174/91, oxygen saturation is 97% on room air. Cardio S1, S2 are present. Respiratory shows clear to auscultation. Abdomen is soft and nontender. Nervous system shows no focal deficits. Please refer to medication reconciliation sheet for a list of medications. Patient Condition at Discharge: Fair Plan - Discharge Summary New Discharge Prescriptions: New predniSONE 10 mg PO DIRECTED #30 tab Continue Orphenadrine Citrate [Orphenadrine Citrate ER] 100 mg PO BID Adalimumab [Humira Pen] 40 mg SQ Q14D Aspirin 325 mg PO DAILY PRN PRN Reason: Pain Febuxostat [Uloric] 80 mg PO DAILY Omeprazole 20 mg PO AC-BID Buprenorphine HCl/Naloxone HCl [Suboxone 2 mg-0.5 mg Sl Film] 1 film SL DAILY Multivitamins, Thera [Multivitamin (formulary)] 1 tab PO DAILY amLODIPine [Norvasc] 5 mg PO DAILY Cyclobenzaprine [Flexeril] 10 mg PO HS PRN PRN Reason: Muscle Spasm Discharge Medication List Orphenadrine Citrate [Orphenadrine Citrate ER] 100 mg PO BID 12/08/17 [History] Adalimumab [Humira Pen] 40 mg SQ Q14D 04/25/18 [History] Aspirin 325 mg PO DAILY PRN 05/05/18 [History] Febuxostat [Uloric] 80 mg PO DAILY 05/05/18 [History] Buprenorphine HCl/Naloxone HCl [Suboxone 2 mg-0.5 mg Sl Film] 1 film SL DAILY 12/12/18 [History] Omeprazole 20 mg PO AC-BID 12/12/18 [History] Cyclobenzaprine [Flexeril] 10 mg PO HS PRN 06/10/19 [History] Multivitamins, Thera [Multivitamin (formulary)] 1 tab PO DAILY 06/10/19 [History] amLODIPine [Norvasc] 5 mg PO DAILY 06/10/19 [History] predniSONE 10 mg PO DIRECTED #30 tab 09/10/19 [Rx] Follow up Appointment(s)/Referral(s): Minh Saldaña MD [Primary Care Provider] - 1-2 days (office closed at time of discharge,,Please call to make appointment) Laura Yancey MD [STAFF PHYSICIAN] - 2 Weeks (office closed at time of discharge. Please call to make appointment) Patient Instructions/Handouts: Crohn Disease (DC) Activity/Diet/Wound Care/Special Instructions: Activity Limited until follow-up Follow-up with primary care provider upon discharge Follow-up with GI in the outpatient setting in 2 weeks Call GI in the morning to request Cassie refill Continue with prednisone taper Continue current diet Discharge Disposition: HOME SELF-CARE
== END 2019-09-10 12:33 | disposition home or self-care (01) | DRG 387 ==
LOC: EC 00:06 → 4SSUR 02:09
PROVIDERS: ADMIT Hospitalist; ATTEND Hospitalist
DX: K50.00 Crohn's disease of small intestine without complications (principal); M06.9 Rheumatoid arthritis, unspecified; K21.9 Gastro-esophageal reflux disease without esophagitis; G43.909 Migraine, unspecified, not intractable, without status migrainosus; L40.9 Psoriasis, unspecified; M10.9 Gout, unspecified; F32.9 Major depressive disorder, single episode, unspecified; D64.9 Anemia, unspecified; F41.9 Anxiety disorder, unspecified; G89.29 Other chronic pain; I10 Essential (primary) hypertension; N20.0 Calculus of kidney; Z11.59 Encounter for screening for other viral diseases; Z94.89 Other transplanted organ and tissue status; Z79.899 Other long term (current) drug therapy; Z79.82 Long term (current) use of aspirin; Z91.041 Radiographic dye allergy status; Z87.442 Personal history of urinary calculi; Z87.11 Personal history of peptic ulcer disease; Z90.3 Acquired absence of stomach [part of]; Z90.49 Acquired absence of other specified parts of digestive tract; Z90.89 Acquired absence of other organs; Z98.890 Other specified postprocedural states; Z98.42 Cataract extraction status, left eye; Z98.41 Cataract extraction status, right eye; Z82.49 Family history of ischemic heart disease and other diseases of the circulatory system; Z82.3 Family history of stroke; Z86.19 Personal history of other infectious and parasitic diseases
CPT/HCPCS: 36415; 74176; 80048; 80053; 81003; 82150; 83605; 83690; 85025; 85652; 86140; 87324; 87635; 96361; 96374; 96375; 96376; 99285

== ENCOUNTER 2020-01-12 09:30 | Inpatient (IN) | payer BC, MEDICARE ==
[2020-01-12] MEDS ORDERED: KETOROLAC 15 MG/ML 1 ML VIAL IVP STA (09:54)
[2020-01-12] MEDS ORDERED: ONDANSETRON 4 MG/2 ML VIAL IVP STA (09:54)
--- NOTE | 2020-01-12 09:57 | ED ---
Abdominal Pain HPI - General Chief Complaint: Abdominal Pain Stated Complaint: Abd pain, weakness Time Seen by Provider: 01/12/20 09:48 Source: patient, RN notes reviewed, old records reviewed Mode of arrival: ambulatory Limitations: no limitations - History of Present Illness Initial Comments: This is a 69-year-old male history of Crohn's disease who states she's been dealing with what he believes to be a flareup over last couple weeks he presents today because of persistent nausea vomiting and lower abdominal pain and muscle cramps. He states the pain is about 8/10 in severity right now is normally dull sometimes sharp. No diarrhea he does complain some dizziness also associated with this. He also describes decreased oral intake. He does feel like his previous episodes except for the cramps. MD Complaint: abdominal pain - Related Data Home Medications Medication Instructions Recorded Confirmed Orphenadrine Citrate [Orphenadrine 100 mg PO BID 12/08/17 09/08/19 Citrate ER] Adalimumab [Humira Pen] 40 mg SQ Q14D 04/25/18 09/08/19 Aspirin 325 mg PO DAILY PRN 05/05/18 09/08/19 Febuxostat [Uloric] 80 mg PO DAILY 05/05/18 09/08/19 Buprenorphine HCl/Naloxone HCl 1 film SL DAILY 12/12/18 09/08/19 [Suboxone 2 mg-0.5 mg Sl Film] Omeprazole 20 mg PO AC-BID 12/12/18 09/08/19 Cyclobenzaprine [Flexeril] 10 mg PO HS PRN 06/10/19 09/08/19 Multivitamins, Thera [Multivitamin 1 tab PO DAILY 06/10/19 09/08/19 (formulary)] amLODIPine [Norvasc] 5 mg PO DAILY 06/10/19 09/08/19 Previous Rx's Medication Instructions Recorded predniSONE 10 mg PO DIRECTED #30 tab 09/10/19 Allergies Allergy/AdvReac Type Severity Reaction Status Date / Time Iodinated Contrast Media Allergy Anaphylaxis Verified 01/12/20 09:43 [Iodinated Contrast Media - IV Dye] Review of Systems ROS Statement: Those systems with pertinent positive or pertinent negative responses have been documented in the HPI. ROS Other: All systems not noted in ROS Statement are negative. Past Medical History Past Medical History: GERD/Reflux, Hypertension, Renal Disease, Rheumatoid Arthritis (RA), Skin Disorder, Supraventricular Tachycardia (SVT) Additional Past Medical History / Comment(s): hx CROHN'S (takes tresa), IBS, chronic diarrhea, migraines-just a couple, hx SVT with ablation, hx ulcers, anemia, generalized gout, kidney stones pt passed on his own, psoriasis, bilater al tinnitis., pinched sciatic nerve History of Any Multi-Drug Resistant Organisms: C-DIFF Date of last positivie culture/infection: stool MDRO Source:: 2016 Past Surgical History: Bowel Resection, Cardiac Ablation, Cholecystectomy, Heart Catheterization, Hernia Repair, Orthopedic Surgery, Tonsillectomy Additional Past Surgical History / Comment(s): partial gastrectomy (ulcers), bowel resections, fecal transplant, bilateral knee arthroscopic surgery, EGD/colonoscopies, R inguinal hernia repair, bilat cataract removal. Past Anesthesia/Blood Transfusion Reactions: Blood Transfusion Reaction, Motion Sickness Additional Past Anesthesia/Blood Transfusion Reaction / Comment(s): BLOOD TRANSFUSION- BROKE OUT IN HIVES age 21 Past Psychological History: Anxiety, Depression Smoking Status: Never smoker Past Alcohol Use History: Occasional Past Drug Use History: None Reported - Past Family History Father Family Medical History: Dementia Additional Family Medical History / Comment(s): Father at the age of 86yrs. Mother Family Medical History: Myocardial Infarction (VT), Pulmonary Embolus Additional Family Medical History / Comment(s): AGE 73-VT, STROKE DURING CARATID PROCEDURE General Exam - General Exam Comments Initial Comments: This is a well-developed well-nourished awake alert oriented 3 male Limitations: no limitations General appearance: alert, anxious, in distress Head exam: Present: atraumatic, normocephalic, normal inspection Eye exam: Present: normal appearance, PERRL, EOMI. Absent: scleral icterus, conjunctival injection, periorbital swelling ENT exam: Present: mucous membranes dry Neck exam: Present: normal inspection, full ROM, other (No stridor JVD or bruits). Absent: tenderness, meningismus, lymphadenopathy Respiratory exam: Present: normal lung sounds bilaterally. Absent: respiratory distress, wheezes, rales, rhonchi, stridor Cardiovascular Exam: Present: regular rate, normal rhythm, normal heart sounds. Absent: systolic murmur, diastolic murmur, rubs, gallop, clicks GI/Abdominal exam: Present: soft, tenderness (Tennis palpation of lower abdomen no guarding rebound masses or bruits), normal bowel sounds. Absent: distended, guarding, rebound, rigid Rectal exam: Present: deferred Extremities exam: Present: normal inspection, full ROM, normal capillary refill. Absent: tenderness, pedal edema, joint swelling, calf tenderness Back exam: Present: normal inspection Neurological exam: Present: alert, oriented X3, CN II-XII intact Psychiatric exam: Present: normal affect, normal mood Skin exam: Present: warm, dry, intact, normal color. Absent: rash Course Vital Signs 01/12/20 01/12/20 09:44 11:37 Temperature 98.8 F Pulse Rate 83 Respiratory 18 18 Rate Blood Pressure 150/89 O2 Sat by Pulse 98 Oximetry Medical Decision Making - Medical Decision Making Patient states have abdominal pain in this gentleman not feeling well. Patient's presentation consistent with acute exacerbation of Crohn's disease as well as dehydration. I did discuss the case with Dr. fischer. Patient be admitted with consultation by GI. - Lab Data Result diagrams: 01/12/20 10:05 01/12/20 10:05 Lab Results 01/12/20 01/12/20 01/12/20 Range/Units 10:05 10:05 10:05 WBC 9.5 (3.8-10.6) k/uL RBC 4.39 (4.30-5.90) m/uL Hgb 11.4 L (13.0-17.5) gm/dL Hct 37.5 L (39.0-53.0) % MCV 85.3 (80.0-100.0) fL MCH 26.0 (25.0-35.0) pg MCHC 30.5 L (31.0-37.0) g/dL RDW 14.7 (11.5-15.5) % Plt Count 200 (150-450) k/uL Neutrophils % 71 % Lymphocytes % 20 % Monocytes % 6 % Eosinophils % 2 % Basophils % 0 % Neutrophils # 6.7 (1.3-7.7) k/uL Lymphocytes # 1.9 (1.0-4.8) k/uL Monocytes # 0.6 (0-1.0) k/uL Eosinophils # 0.2 (0-0.7) k/uL Basophils # 0.0 (0-0.2) k/uL Hypochromasia Moderate PT 9.4 (9.0-12.0) sec INR 0.9 (<1.2) APTT 20.4 L (22.0-30.0) sec Sodium (137-145) mmol/L Potassium (3.5-5.1) mmol/L Chloride (98-107) mmol/L Carbon Dioxide (22-30) mmol/L Anion Gap mmol/L BUN (9-20) mg/dL Creatinine (0.66-1.25) mg/dL Est GFR (CKD-EPI)AfAm (>60 ml/min/1.73 sqM) Est GFR (CKD-EPI)NonAf (>60 ml/min/1.73 sqM) Glucose (74-99) mg/dL Plasma Lactic Acid Kal (0.7-2.0) mmol/L Calcium (8.4-10.2) mg/dL Total Bilirubin (0.2-1.3) mg/dL AST (17-59) U/L ALT (4-49) U/L Alkaline Phosphatase (38-126) U/L Creatine Kinase (55-170) U/L Troponin I (0.000-0.034) ng/mL Total Protein (6.3-8.2) g/dL Albumin (3.5-5.0) g/dL Amylase (30-110) U/L Lipase (23-300) U/L Urine Color Yellow Urine Appearance Clear (Clear) Urine pH 5.5 (5.0-8.0) Ur Specific [place] 1.016 (1.001-1.035) Urine Protein Negative (Negative) Urine Glucose (UA) Negative (Negative) Urine Ketones 1+ H (Negative) Urine Blood Negative (Negative) Urine Nitrite Negative (Negative) Urine Bilirubin Negative (Negative) Urine Urobilinogen <2.0 (<2.0) mg/dL Ur Leukocyte Esterase Negative (Negative) 01/12/20 01/12/20 01/12/20 Range/Units 10:05 10:05 10:05 WBC (3.8-10.6) k/uL RBC (4.30-5.90) m/uL Hgb (13.0-17.5) gm/dL Hct (39.0-53.0) % MCV (80.0-100.0) fL MCH (25.0-35.0) pg MCHC (31.0-37.0) g/dL RDW (11.5-15.5) % Plt Count (150-450) k/uL Neutrophils % % Lymphocytes % % Monocytes % % Eosinophils % % Basophils % % Neutrophils # (1.3-7.7) k/uL Lymphocytes # (1.0-4.8) k/uL Monocytes # (0-1.0) k/uL Eosinophils # (0-0.7) k/uL Basophils # (0-0.2) k/uL Hypochromasia PT (9.0-12.0) sec INR (<1.2) APTT (22.0-30.0) sec Sodium 136 L (137-145) mmol/L Potassium 4.1 (3.5-5.1) mmol/L Chloride 110 H (98-107) mmol/L Carbon Dioxide 19 L (22-30) mmol/L Anion Gap 7 mmol/L BUN 28 H (9-20) mg/dL Creatinine 1.18 (0.66-1.25) mg/dL Est GFR (CKD-EPI)AfAm 72 (>60 ml/min/1.73 sqM) Est GFR (CKD-EPI)NonAf 63 (>60 ml/min/1.73 sqM) Glucose 110 H (74-99) mg/dL Plasma Lactic Acid Kal 0.9 (0.7-2.0) mmol/L Calcium 8.7 (8.4-10.2) mg/dL Total Bilirubin 1.0 (0.2-1.3) mg/dL AST 41 (17-59) U/L ALT 34 (4-49) U/L Alkaline Phosphatase 45 (38-126) U/L Creatine Kinase 72 (55-170) U/L Troponin I 0.030 (0.000-0.034) ng/mL Total Protein 6.9 (6.3-8.2) g/dL Albumin 3.8 (3.5-5.0) g/dL Amylase 82 (30-110) U/L Lipase 38 (23-300) U/L Urine Color Urine Appearance (Clear) Urine pH (5.0-8.0) Ur Specific [place] (1.001-1.035) Urine Protein (Negative) Urine Glucose (UA) (Negative) Urine Ketones (Negative) Urine Blood (Negative) Urine Nitrite (Negative) Urine Bilirubin (Negative) Urine Urobilinogen (<2.0) mg/dL Ur Leukocyte Esterase (Negative) - Radiology Data Radiology results: report reviewed (I did review the imaging and report no acute findings), image reviewed Disposition Clinical Impression: Exacerbation of Crohn's disease, Dehydration, Abdominal pain Disposition: ADMITTED IP TO THIS HOSP Condition: Fair Referrals: Minh Saldaña MD [Primary Care Provider] - 1-2 days
[2020-01-12 10:19] LABS: Basophils % (A) 0 %; Eosinophils # (A) 0.2 k/uL (0-0.7); Eosinophils % (A) 2 %; HCT 37.5 % (39.0-53.0); HGB 11.4 gm/dL (13.0-17.5); Hypochromasia Moderate; Lymphocytes # (A) 1.9 k/uL (1.0-4.8); Lymphocytes % (A) 20 %; MCHC 30.5 g/dL (31.0-37.0); MCV 85.3 fL (80.0-100.0); Mean Platelet Volume 6.7; Monocytes # (A) 0.6 k/uL (0-1.0); Monocytes % (A) 6 %; Neutrophils # (A) 6.7 k/uL (1.3-7.7); Neutrophils % (A) 71 %; Platelet Count 200 k/uL (150-450); RBC 4.39 m/uL (4.30-5.90); RDW 14.7 % (11.5-15.5); WBC 9.5 k/uL (3.8-10.6)
[2020-01-12 10:30] LABS: Albumin 3.8 g/dL (3.5-5.0); Calcium 8.7 mg/dL (8.4-10.2); Potassium 4.1 mmol/L (3.5-5.1); Total Protein 6.9 g/dL (6.3-8.2)
--- NOTE | 2020-01-12 10:33 | XR ---
EXAMINATION TYPE: XR KUB DATE OF EXAM: 01/12/2020 10:19 AM CLINICAL HISTORY: Abdominal pain and vomiting for weeks. TECHNIQUE: Two Upright KUB images of the abdomen are obtained. COMPARISON: CT abdomen and pelvis September 08, 2019 FINDINGS: Scattered gas is seen in non-distended stomach and small bowel loops. Gas and fecal materia l is seen in non-distended colon. Cholecystectomy clips are redemonstrated including additional surgi louie clips inferior to this. Surgical clips near diaphragmatic hiatus again seen. No pneumoperitoneum. Lung bases are clear. Visualized osseous structures are intact IMPRESSION: Overall nonobstructive bowel gas pattern redemonstrated.
[2020-01-12 10:42] LABS: INR 0.9 (<1.2); Prothrombin Time 9.4 sec (9.0-12.0)
[2020-01-12] MEDS ORDERED: SODIUM CHLORIDE 0.9% 1,000 ML IV STA (10:42)
[2020-01-12] MEDS ORDERED: fentaNYL (PF) 50 MCG/ML 2 ML AMP IV STA (10:42)
[2020-01-12 10:45] LABS: Partial Thromboplastin Time 20.4 sec (22.0-30.0)
[2020-01-12 11:55] LABS: Appearance,Urine Clear (Clear); Bilirubin,Urine Negative (Negative); Blood,Urine Negative (Negative); Color,Urine Yellow; Glucose,Urine (UA) Negative (Negative); Ketones,Urine 1+ (Negative); Leukocyte Esterase,Urine Negative (Negative); Nitrite,Urine Negative (Negative); PH, Urine 5.5 (5.0-8.0); Protein,Urine Negative (Negative); Specific Gravity,Urine 1.016 (1.001-1.035); Urobilinogen,Urine <2.0 mg/dL (<2.0)
[2020-01-12] MEDS ORDERED: NALOXONE 0.4 MG/ML 1 ML VIAL IV PRN (12:22)
[2020-01-12] MEDS ORDERED: CYCLOBENZAPRINE 10 MG TAB PO PRN (12:24)
[2020-01-12] MEDS ORDERED: ASPIRIN 325 MG TAB PO PRN (12:24)
[2020-01-12] MEDS ORDERED: methylPREDNISolone SOD SUCCI 125 MG/2 ML VIAL IV STA (12:27)
[2020-01-12] MEDS: HYDROmorphone 0.5 MG/0.5 ML SYRINGE IVP PRN ×4 (13:08→23:07)
[2020-01-12] MEDS: SODIUM CHLORIDE 0.9% 1,000 ML IV SCH ×2 (13:09→23:35)
--- NOTE | 2020-01-12 13:43 | P.HPIM ---
History of Present Illness On-call hospitalist covering Dr. Saldaña will resume the care of the patient on Saturday 01/13 This is a pleasant 69 years old male with past medical history of GERD, hypertension, rheumatoid arthritis, supraventricular tachycardia that's, Crohn's disease, irritable bowel syndrome, chronic diarrhea. Gout, kidney stone, psoriasis and C. diff infection. He is status post partial gastrectomy secondary to ulcer disease and anxiety and depression. Patient presents because of abdominal pain and persistent nausea vomiting. Patient started having vomiting about 2 weeks ago he went to see his PCP who did some workup for him however over the last 3-4 days his vomiting persisted and increased and start developing abdominal pain in the middle, nonradiating, dull all the time with periods of sharp pain. About 7/10 in severity, he vomited about 3-4 times since yesterday mother is no blood in it. He has loose bowel movement about 5-6 times per day with no blood in it. It fills also some dizziness as his about to fall down. Also was complaining from, and his right leg. He denies a smoking, no alcohol no use of drugs He is hemodynamically stable, labs showing unremarkable CBC, BMP and INR and liver enzymes. Troponin is -0.03, lipase and amylase are normal. INR 0.9. He has mild anemia with hemoglobin 11.4. KUB: Nonobstructive bowel gas pattern In emergency room he got fentanyl, Toradol, Solu-Medrol 1 and Zofran. And he was started on normal saline at 100 mL per hour after 1 L of normal saline boluses Past Medical History Past Medical History: GERD/Reflux, Hypertension, Renal Disease, Rheumatoid Arthritis (RA), Skin Disorder, Supraventricular Tachycardia (SVT) Additional Past Medical History / Comment(s): hx CROHN'S (takes tresa), IBS, chronic diarrhea, migraines-just a couple, hx SVT with ablation, hx ulcers, anemia, generalized gout, kidney stones pt passed on his own, psoriasis, bilateral tinnitis., pinched sciatic nerve History of Any Multi-Drug Resistant Organisms: C-DIFF Date of last positivie culture/infection: stool MDRO Source:: 2016 Past Surgical History: Bowel Resection, Cardiac Ablation, Cholecystectomy, Heart Catheterization, Hernia Repair, Orthopedic Surgery, Tonsillectomy Additional Past Surgical History / Comment(s): partial gastrectomy (ulcers), bowel resections, fecal transplant, bilateral knee arthroscopic surgery, EGD/colonoscopies, R inguinal hernia repair, bilat cataract removal. Past Anesthesia/Blood Transfusion Reactions: Blood Transfusion Reaction, Motion Sickness Additional Past Anesthesia/Blood Transfusion Reaction / Comment(s): BLOOD TRANSFUSION- BROKE OUT IN HIVES age 21 Past Psychological History: Anxiety, Depression Additional Psychological History / Comment(s): Retired due to his health. Pt resides with his spouse. He has hx of opiate dependency and is on suboxone. He is independent. Smoking Status: Never smoker Past Alcohol Use History: Occasional Past Drug Use History: None Reported Additional Drug Use History / Comment(s): Hx of opiate dependency-on suboxone. - Past Family History Father Family Medical History: Dementia Additional Family Medical History / Comment(s): Father at the age of 86yrs. Mother Family Medical History: Myocardial Infarction (OR), Pulmonary Embolus Additional Family Medical History / Comment(s): AGE 73-OR, STROKE DURING CARATID PROCEDURE Medications and Allergies Home Medications Medication Instructions Recorded Confirmed Type Orphenadrine Citrate [Orphenadrine 100 mg PO BID 12/08/17 09/08/19 History Citrate ER] Adalimumab [Humira Pen] 40 mg SQ Q14D 04/25/18 09/08/19 History Aspirin 325 mg PO DAILY PRN 05/05/18 09/08/19 History Febuxostat [Uloric] 80 mg PO DAILY 05/05/18 09/08/19 History Buprenorphine HCl/Naloxone HCl 1 film SL DAILY 12/12/18 09/08/19 History [Suboxone 2 mg-0.5 mg Sl Film] Omeprazole 20 mg PO AC-BID 12/12/18 09/08/19 History Cyclobenzaprine [Flexeril] 10 mg PO HS PRN 06/10/19 09/08/19 History Multivitamins, Thera [Multivitamin 1 tab PO DAILY 06/10/19 09/08/19 History (formulary)] amLODIPine [Norvasc] 5 mg PO DAILY 06/10/19 09/08/19 History predniSONE 10 mg PO DIRECTED #30 tab 09/10/19 Rx Allergies Allergy/AdvReac Type Severity Reaction Status Date / Time Iodinated Contrast Media Allergy Anaphylaxis Verified 01/12/20 09:43 [Iodinated Contrast Media - IV Dye] Physical Exam Vitals: Vital Signs Temp Pulse Resp BP Pulse Ox 01/12/20 12:38 63 18 161/77 97 01/12/20 12:32 98.8 F 63 18 161/77 97 01/12/20 11:37 18 01/12/20 09:44 98.8 F 83 18 150/89 98 Intake and Output 01/11/20 01/12/20 01/12/20 22:59 06:59 14:59 Other: # Voids 0 Weight 79.832 kg GENERAL: The patient is alert and oriented x3, not in any acute distress. Well developed, well nourished. HEENT: Pupils are round and equally reacting to light. EOMI. No scleral icterus. No conjunctival pallor. Normocephalic, atraumatic. No pharyngeal erythema. No thyromegaly. CARDIOVASCULAR: S1 and S2 present. No murmurs, rubs, or gallops. PULMONARY: Chest is clear to auscultation, no wheezing or crackles. -ABDOMEN: Soft, epigastric pain and tenderness, with little guarding but no rebound tenderness, nondistended, normoactive bowel sounds. No palpable organomegaly. MUSCULOSKELETAL: No joint swelling or deformity. EXTREMITIES: No cyanosis, clubbing, or pedal edema. NEUROLOGICAL: Gross neurological examination did not reveal any focal deficits. SKIN: No rashes. no petechiae. Results CBC & Chem 7: 01/12/20 10:05 01/12/20 10:05 Labs: Abnormal Lab Results - Last 24 Hours (Table) 01/12/20 01/12/20 01/12/20 Range/Units 10:05 10:05 10:05 Hgb 11.4 L (13.0-17.5) gm/dL Hct 37.5 L (39.0-53.0) % MCHC 30.5 L (31.0-37.0) g/dL APTT 20.4 L (22.0-30.0) sec Sodium (137-145) mmol/L Chloride (98-107) mmol/L Carbon Dioxide (22-30) mmol/L BUN (9-20) mg/dL Glucose (74-99) mg/dL Urine Ketones 1+ H (Negative) 01/12/20 Range/Units 10:05 Hgb (13.0-17.5) gm/dL Hct (39.0-53.0) % MCHC (31.0-37.0) g/dL APTT (22.0-30.0) sec Sodium 136 L (137-145) mmol/L Chloride 110 H (98-107) mmol/L Carbon Dioxide 19 L (22-30) mmol/L BUN 28 H (9-20) mg/dL Glucose 110 H (74-99) mg/dL Urine Ketones (Negative) Thrombosis Risk Factor Assmnt - Choose All That Apply Each Factor Represents 1 point: Age 41-60 years Each Risk Factor Represents 2 Points: Age 61-74 years Other congenital or acquired thrombophilia - If yes, enter type in comment: No Thrombosis Risk Factor Assessment Total Risk Factor Score: 3 Thrombosis Risk Factor Assessment Level: Moderate Risk Assessment and Plan Assessment: Abdominal pain, with nausea vomiting and diarrhea. Possible gastroenteritis. rule out Crohn's disease exacerbation, versus other pathology in view of his previous bowel surgeries Dehydration and presyncope secondary to above Right leg cramp. Rule out DVT Hypertension GERD History supraventricular tachycardia status post ablation Rheumatoid arthritis and psoriasis Irritable bowel syndrome Chronic diarrhea History of gout History of kidney stones History of C. diff infection Plan: This is a pleasant 69 years old male who presents with abdominal pain. There was suspicion of Crohn's exacerbation. GI team were consulted we'll check ESR and C-reactive protein. Check stool for C. diff. Continue with IV fluid. Pain management. also we will consult surgical team front end architect Labs and medication were reviewed.. Continue same treatment. Continue with symptomatic treatment. Resume home medication. Monitor lytes and vitals. DVT and GI prophylaxis. Further recommendationsas per clinical course of the patient DVT prophylaxis: Subcutaneous heparin GI Prophylaxis: Ppi Prognosis is guarded
--- NOTE | 2020-01-12 15:24 | US ---
EXAMINATION TYPE: US venous doppler duplex LE RT DATE OF EXAM: 01/12/2020 2:21 PM COMPARISON: NONE CLINICAL HISTORY: Leg cramps. SIDE PERFORMED: Right TECHNIQUE: The lower extremity deep venous system is examined utilizing real time linear array sonog [id number] with graded compression, doppler sonography and color-flow sonography. VESSELS IMAGED: External Iliac Vein (EIV) Common Femoral Vein Deep Femoral Vein Greater Saphenous Vein * Femoral Vein Popliteal Vein Small Saphenous Vein * Proximal Calf Veins (* superficial vessels) Right Leg: Negative for DVT IMPRESSION: No evidence of deep vein thrombosis in the right leg.
[2020-01-12] MEDS ORDERED: PANTOPRAZOLE 40 MG TABLET PO SCH (17:30)
--- NOTE | 2020-01-12 18:44 | P.GSCN ---
History of Present Illness Consult date: 01/12/20 Reason for Consult: Crohn's exacerbation History of present illness: 69-year-old male known to our service. Patient with long-standing history of Crohn's disease. Patient has admissions typically 2-3 times per year. He was last seen in August of this year by Dr. Buchanan. Is treated for an exacerbation at that time. 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 He has had increased stress. Has been fatigued. Recently started having increased loose stools associated with vague abdominal discomforts and intermittent episodes of vomiting. Symptoms worse the last 3 days. Has had some lower extremity cramps as well. Today came to the hospital for further evaluation. KUB shows nonspecific bowel gas pattern. Patient has had obstructions in the past and does not believe this feels like a typical obstruction for him. WBC normal with no shift, C-reactive protein normal. Patient has had 2 separate bowel resections, cholecystectomy, partial gastrectomy in the past. Last bowel surgery at a few years ago. Review of Systems The patient denies any acute changes in vision or hearing, no dysphagia or odynophagia, no chest pain or shortness of breath, no dysuria or hematuria, no headache, no runny nose, no melena, no unexplained weight loss Past Medical History Past Medical History: GERD/Reflux, Hypertension, Renal Disease, Rheumatoid Arthritis (RA), Skin Disorder, Supraventricular Tachycardia (SVT) Additional Past Medical History / Comment(s): hx CROHN'S (takes tresa), IBS, chronic diarrhea, migraines-just a couple, hx SVT with ablation, hx ulcers, anemia, generalized gout, kidney stones pt passed on his own, psoriasis, bilateral tinnitis., pinched sciatic nerve History of Any Multi-Drug Resistant Organisms: C-DIFF Year Discovered:: stool MDRO Source:: 2017 Past Surgical History: Bowel Resection, Cardiac Ablation, Cholecystectomy, Heart Catheterization, Hernia Repair, Orthopedic Surgery, Tonsillectomy Additional Past Surgical History / Comment(s): partial gastrectomy (ulcers), bowel resections, fecal transplant, bilateral knee arthroscopic surgery, EGD/colonoscopies, R inguinal hernia repair, bilat cataract removal. Past Anesthesia/Blood Transfusion Reactions: Blood Transfusion Reaction, Motion Sickness Additional Past Anesthesia/Blood Transfusion Reaction / Comm: BLOOD TRANSFUSION- BROKE OUT IN HIVES age 21 Past Psychological History: Anxiety, Depression Additional Psychological History / Comment(s): Retired due to his health. Pt resides with his spouse. He has hx of opiate dependency and is on suboxone. He is independent. Smoking Status: Never smoker Past Alcohol Use History: Occasional Past Drug Use History: None Reported Additional Drug Use History / Comment(s): Hx of opiate dependency-on suboxone. - Past Family History Father Family Medical History: Dementia Additional Family Medical History / Comment(s): Father at the age of 86yrs. Mother Family Medical History: Myocardial Infarction (NM), Pulmonary Embolus Additional Family Medical History / Comment(s): AGE 73-NM, STROKE DURING CARATID PROCEDURE Medications and Allergies Home Medications Medication Instructions Recorded Confirmed Type Orphenadrine Citrate [Orphenadrine 100 mg PO BID 12/08/17 01/12/20 History Citrate ER] Adalimumab [Humira Pen] 40 mg SQ Q14D 04/25/18 01/12/20 History Febuxostat [Uloric] 80 mg PO DAILY 05/05/18 01/12/20 History Buprenorphine HCl/Naloxone HCl 1 film SL DAILY 12/12/18 01/12/20 History [Suboxone 2 mg-0.5 mg Sl Film] Omeprazole 20 mg PO AC-LUNCH 12/12/18 01/12/20 History amLODIPine [Norvasc] 5 mg PO DAILY 06/10/19 01/12/20 History [id number]-Sveb-Hsmy [id number] 2 tab PO DAILY PRN 01/12/20 01/12/20 History [Excedrin] Allergies Allergy/AdvReac Type Severity Reaction Status Date / Time Iodinated Contrast Media Allergy Anaphylaxis Verified 01/12/20 13:33 [Iodinated Contrast Media - IV Dye] Surgical - Exam Vital Signs Temp Pulse Resp BP Pulse Ox 98.8 F 83 18 150/89 98 01/12/20 09:44 01/12/20 09:44 01/12/20 09:44 01/12/20 09:44 01/12/20 09:44 Physical exam: General: Well-developed, well-nourished HEENT: Normocephalic, sclerae nonicteric Abdomen: Mild diffuse tenderness, mild distention Extremities: No edema Neuro: Alert and oriented Results - Labs 01/12/20 10:05 09/26/20 10:05 Abnormal Lab Results - Last 24 Hours (Table) 01/12/20 01/12/20 01/12/20 Range/Units 10:05 10:05 10:05 Hgb 11.4 L (13.0-17.5) gm/dL Hct 37.5 L (39.0-53.0) % MCHC 30.5 L (31.0-37.0) g/dL ESR (0-15) mm/hr APTT 20.4 L (22.0-30.0) sec Sodium (137-145) mmol/L Chloride (98-107) mmol/L Carbon Dioxide (22-30) mmol/L BUN (9-20) mg/dL Glucose (74-99) mg/dL Urine Ketones 1+ H (Negative) 01/12/20 01/12/20 Range/Units 10:05 10:05 Hgb (13.0-17.5) gm/dL Hct (39.0-53.0) % MCHC (31.0-37.0) g/dL ESR 16 H (0-15) mm/hr APTT (22.0-30.0) sec Sodium 136 L (137-145) mmol/L Chloride 110 H (98-107) mmol/L Carbon Dioxide 19 L (22-30) mmol/L BUN 28 H (9-20) mg/dL Glucose 110 H (74-99) mg/dL Urine Ketones (Negative) Diabetes panel 01/12/20 Range/Units 10:05 Sodium 136 L (137-145) mmol/L Potassium 4.1 (3.5-5.1) mmol/L Chloride 110 H (98-107) mmol/L Carbon Dioxide 19 L (22-30) mmol/L BUN 28 H (9-20) mg/dL Creatinine 1.18 (0.66-1.25) mg/dL Glucose 110 H (74-99) mg/dL Calcium 8.7 (8.4-10.2) mg/dL AST 41 (17-59) U/L ALT 34 (4-49) U/L Alkaline Phosphatase 45 (38-126) U/L Total Protein 6.9 (6.3-8.2) g/dL Albumin 3.8 (3.5-5.0) g/dL Calcium panel 01/12/20 Range/Units 10:05 Calcium 8.7 (8.4-10.2) mg/dL Albumin 3.8 (3.5-5.0) g/dL Pituitary panel 01/12/20 Range/Units 10:05 Sodium 136 L (137-145) mmol/L Potassium 4.1 (3.5-5.1) mmol/L Chloride 110 H (98-107) mmol/L Carbon Dioxide 19 L (22-30) mmol/L BUN 28 H (9-20) mg/dL Creatinine 1.18 (0.66-1.25) mg/dL Glucose 110 H (74-99) mg/dL Calcium 8.7 (8.4-10.2) mg/dL Adrenal panel 01/12/20 Range/Units 10:05 Sodium 136 L (137-145) mmol/L Potassium 4.1 (3.5-5.1) mmol/L Chloride 110 H (98-107) mmol/L Carbon Dioxide 19 L (22-30) mmol/L BUN 28 H (9-20) mg/dL Creatinine 1.18 (0.66-1.25) mg/dL Glucose 110 H (74-99) mg/dL Calcium 8.7 (8.4-10.2) mg/dL Total Bilirubin 1.0 (0.2-1.3) mg/dL AST 41 (17-59) U/L ALT 34 (4-49) U/L Alkaline Phosphatase 45 (38-126) U/L Total Protein 6.9 (6.3-8.2) g/dL Albumin 3.8 (3.5-5.0) g/dL Assessment and Plan (1) Exacerbation of Crohn's disease Narrative/Plan: 69-year-old male with abdominal pain. Likely on the basis of exacerbation of Crohn's disease. If symptoms persist or worsen we'll consider repeat imaging with CAT scan. Await GI evaluation. We'll follow with you. Continue clear liquid diet. Current Visit: Yes Status: Acute Code(s): K50.90 - CROHN'S DISEASE, UNSPECIFIED, WITHOUT COMPLICATIONS SNOMED Code(s): 85226847
[2020-01-12] MEDS: amLODIPine 5 MG TAB PO SCH (20:11)
[2020-01-12] MEDS: HEPARIN SODIUM,PORCINE 5,000 UNIT/ML 1 ML VIAL SQ SCH (20:11)
[2020-01-12] MEDS: CYCLOBENZAPRINE 10 MG TAB PO SCH (20:11)
[2020-01-12] MEDS: methylPREDNISolone SOD SUCCI 40 MG/ML 1 ML VIAL IV SCH (20:11)
[2020-01-12] MEDS: PANTOPRAZOLE 40 MG/10 ML VIAL IVP SCH (20:12)
[2020-01-12] MEDS: ONDANSETRON 4 MG/2 ML VIAL IVP PRN (20:25)
[2020-01-12] MEDS ORDERED: CALCIUM CARBONATE 500 MG CHEWABLE PO STA (23:29)
[2020-01-13] MEDS: HYDROmorphone 0.5 MG/0.5 ML SYRINGE IVP PRN ×7 (03:59→22:21)
[2020-01-13] MEDS: Buprenorphine Hcl/Naloxone Hcl [Suboxone 2 Mg-0.5 Mg Sl Film] 1 EACH F SUBLINGUAL SCH (08:00)
[2020-01-13 08:44] LABS: African American GFR (CKD) >90 (>60 ml/min/1.73 sqM); Anion Gap 2 mmol/L; Blood Urea Nitrogen 12 mg/dL (9-20); Calcium 7.4 mg/dL (8.4-10.2); Carbon Dioxide 24 mmol/L (22-30); Chloride 110 mmol/L (98-107); Glucose 146 mg/dL (74-99); Non-African American GFR(CKD) 88 (>60 ml/min/1.73 sqM); Potassium 4.1 mmol/L (3.5-5.1); Sodium 136 mmol/L (137-145)
[2020-01-13] MEDS: PANTOPRAZOLE 40 MG/10 ML VIAL IVP SCH ×2 (08:59→22:20)
[2020-01-13] MEDS: methylPREDNISolone SOD SUCCI 40 MG/ML 1 ML VIAL IV SCH ×2 (09:00→22:21)
[2020-01-13] MEDS: HEPARIN SODIUM,PORCINE 5,000 UNIT/ML 1 ML VIAL SQ SCH ×2 (09:00→22:20)
[2020-01-13] MEDS ORDERED: amLODIPine 5 MG TAB PO SCH (09:00)
[2020-01-13] MEDS: allopurinoL 100 MG TAB PO SCH ×2 (09:00→22:20)
[2020-01-13] MEDS ORDERED: NON FORMULARY DRUG (Buprenorphine Hcl/Naloxone Hcl [Suboxone 2 Mg-0.5 Mg Sl Film] 1 EACH F SL SCH (09:00)
[2020-01-13] MEDS: MULTIVITAMINS, THERA 1 EACH TAB PO SCH (09:00)
[2020-01-13] MEDS: CYCLOBENZAPRINE 10 MG TAB PO SCH ×2 (09:00→22:20)
[2020-01-13] MEDS: amLODIPine 5 MG TAB PO SCH (09:00)
[2020-01-13 09:01] LABS: Basophils % (A) 0 %; Eosinophils % (A) 0 %; HCT 30.3 % (39.0-53.0); Hypochromasia Moderate; Lymphocytes # (A) 0.5 k/uL (1.0-4.8); Lymphocytes % (A) 7 %; MCH 26.3 pg (25.0-35.0); MCHC 30.6 g/dL (31.0-37.0); MCV 86.2 fL (80.0-100.0); Mean Platelet Volume 7.1; Monocytes # (A) 0.3 k/uL (0-1.0); Monocytes % (A) 4 %; Neutrophils # (A) 5.9 k/uL (1.3-7.7); Neutrophils % (A) 88 %; Platelet Count 144 k/uL (150-450); RBC 3.51 m/uL (4.30-5.90); RDW 14.6 % (11.5-15.5); WBC 6.7 k/uL (3.8-10.6)
[2020-01-13] MEDS: SODIUM CHLORIDE 0.9% 1,000 ML IV SCH ×2 (09:02→12:50)
[2020-01-13 09:08] LABS: HGB 9.3 gm/dL (13.0-17.5)
--- NOTE | 2020-01-13 10:36 | P.PN ---
Subjective Progress Note Date: 01/13/20 Principal diagnosis: Abdominal pain Patient feels slightly better today. He is afebrile. Loose liquid stools. Patient is tolerating clear liquids and requesting more. WBC normal. Hemoglobin has dropped. Denies rectal bleeding. Objective - Vital Signs Vital signs: Vital Signs Temp 98.2 F 01/13/20 07:56 Pulse 82 01/13/20 07:56 Resp 16 01/13/20 07:56 BP 134/64 01/13/20 07:56 Pulse Ox 96 01/13/20 07:56 Intake & Output 01/12/20 01/13/20 01/13/20 18:59 06:59 18:59 Intake Total 500 Balance 500 Weight 79.832 kg Intake: Oral 500 Other: Voiding Method Toilet Toilet Toilet # Voids 0 3 1 - Exam Abdomen: Soft, mild distention, mild diffuse tenderness slightly increased right lower quadrant - Labs CBC & Chem 7: 01/13/20 08:03 01/13/20 08:03 Labs: Abnormal Lab Results - Last 24 Hours (Table) 01/12/20 01/12/20 01/12/20 Range/Units 10:05 10:05 10:05 RBC (4.30-5.90) m/uL Hgb (13.0-17.5) gm/dL Hct (39.0-53.0) % MCHC (31.0-37.0) g/dL Plt Count (150-450) k/uL Lymphocytes # (1.0-4.8) k/uL ESR 16 H (0-15) mm/hr APTT 20.4 L (22.0-30.0) sec Sodium (137-145) mmol/L Chloride (98-107) mmol/L Glucose (74-99) mg/dL Calcium (8.4-10.2) mg/dL Urine Ketones 1+ H (Negative) 01/13/20 01/13/20 Range/Units 08:03 08:03 RBC 3.51 L (4.30-5.90) m/uL Hgb 9.3 L D (13.0-17.5) gm/dL Hct 30.3 L (39.0-53.0) % MCHC 30.6 L (31.0-37.0) g/dL Plt Count 144 L (150-450) k/uL Lymphocytes # 0.5 L (1.0-4.8) k/uL ESR (0-15) mm/hr APTT (22.0-30.0) sec Sodium 136 L (137-145) mmol/L Chloride 110 H (98-107) mmol/L Glucose 146 H (74-99) mg/dL Calcium 7.4 L (8.4-10.2) mg/dL Urine Ketones (Negative) Assessment and Plan (1) Exacerbation of Crohn's disease Narrative/Plan: Continue IV steroids. Advance diet to full liquids. Will follow with you. Current Visit: Yes Status: Acute Code(s): K50.90 - CROHN'S DISEASE, UNSPECIFIED, WITHOUT COMPLICATIONS SNOMED Code(s): 03174773
--- NOTE | 2020-01-13 12:17 | P.PN ---
Subjective On-call hospitalist covering Dr. Saldaña will resume the care of the patient on Saturday 01/13 This is a pleasant 69 years old male with past medical history of GERD, hypertension, rheumatoid arthritis, supraventricular tachycardia that's, Crohn's disease, irritable bowel syndrome, chronic diarrhea. Gout, kidney stone, psoriasis and C. diff infection. He is status post partial gastrectomy secondary to ulcer disease and anxiety and depression. Patient presents because of abdominal pain and persistent nausea vomiting. Patient started having vomiting about 2 weeks ago he went to see his PCP who did some workup for him however over the last 3-4 days his vomiting persisted and increased and start developing abdominal pain in the middle, nonradiating, dull all the time with periods of sharp pain. About 7/10 in severity, he vomited about 3-4 times since yesterday mother is no blood in it. He has loose bowel movement about 5-6 times per day with no blood in it. It fills also some dizziness as his about to fall down. Also was complaining from, and his right leg. He denies a smoking, no alcohol no use of drugs He is hemodynamically stable, labs showing unremarkable CBC, BMP and INR and liver enzymes. Troponin is -0.03, lipase and amylase are normal. INR 0.9. He has mild anemia with hemoglobin 11.4. KUB: Nonobstructive bowel gas pattern In emergency room he got fentanyl, Toradol, Solu-Medrol 1 and Zofran. And he was started on normal saline at 100 mL per hour after 1 L of normal saline boluses 01/13/2020 Patient is awake and alert, he has no more diarrhea since yesterday., His vomiting stopped, his abdominal pain is still there but with slight improvement he rated as 5/10 in severity today. He was started on liquid diet today. His DVT for his right leg cramps came back negative for DVT. GI and surgery team on board and their input is appreciated. His hemoglobin is 9.3 but it looks more like hematoma dilution as platelets and WBC came down to 144 and 6.7K. Respectively. Sodium 136, creatinine normal 0.8. ESR slightly elevated and patient was started on Solu-Medrol 30 mg . we will lower normal saline to 75 mL/h today. Continue with Protonix Tomorrow Dr. Saldaña will resume the care of the patient CONSTITUTIONAL: No fever, no malaise, no fatigue. HEENT: No recent visual problems or hearing problems. Denied any sore throat. CARDIOVASCULAR: No orthopnea, PND, no palpitations, no syncope. PULMONARY: No shortness of breath, no cough, no hemoptysis. GASTROINTESTINAL: No diarrhea, no nausea, no vomiting, no abdominal pain. Normoactive bowel sounds. NEUROLOGICAL: No headaches, no weakness, no numbness. HEMATOLOGICAL: Denies any bleeding or petechiae. GENITOURINARY: Denies any burning micturition, frequency, or urgency. MUSCULOSKELETAL/RHEUMATOLOGICAL: Denies any joint pain, swelling, or any muscle pain. ENDOCRINE: Denies any polyuria or polydipsia. Active Medications Generic Name Dose Route Start Last Admin Trade Name Freq PRN Reason Stop Dose Admin Allopurinol 200 mg 01/13/20 09:00 01/13/20 09:00 Allopurinol 100 Mg Tab PO 200 mg BID GABE Administration Amlodipine Besylate 5 mg 01/12/20 20:07 01/13/20 09:00 Amlodipine 5 Mg Tab PO 5 mg DAILY GABE Administration Aspirin 325 mg 01/12/20 12:24 Aspirin 325 Mg Tab PO DAILY PRN Pain Cyclobenzaprine HCl 10 mg 01/12/20 12:24 Cyclobenzaprine 10 Mg Tab PO HS PRN Muscle Spasm Cyclobenzaprine HCl 10 mg 01/12/20 21:00 01/13/20 09:00 Cyclobenzaprine 10 Mg Tab PO 10 mg BID GABE Administration Heparin Sodium (Porcine) 5,000 unit 01/12/20 21:00 01/13/20 09:00 Heparin Sodium,Porcine 5,000 Unit/Ml 1 Ml Vial SQ 5,000 unit Q12HR GABE Administration Hydromorphone HCl 0.5 mg 01/12/20 12:22 01/13/20 09:55 Hydromorphone 0.5 Mg/0.5 Ml Syringe IVP 0.5 mg Q3HR PRN Administration Moderate Pain Sodium Chloride 1,000 mls @ 75 mls/hr 01/12/20 12:30 01/13/20 09:02 Saline 0.9% IV Not Given .[id number] GABE Methylprednisolone Sodium Succinate 30 mg 01/12/20 21:00 01/13/20 09:00 Methylprednisolone Sod Succi 40 Mg/Ml 1 Ml Vial IV 30 mg Q12HR GABE Administration Multivitamins 1 each 01/13/20 09:00 01/13/20 09:00 Multivitamins, Thera 1 Each Tab PO 1 each DAILY GABE Administration Naloxone HCl 0.2 mg 01/12/20 12:22 Naloxone 0.4 Mg/Ml 1 Ml Vial IV Q2M PRN Opioid Reversal Buprenorphine Hcl/ 1 film 01/13/20 09:00 01/13/20 08:00 Naloxone Hcl [ SUBLINGUAL Not Given Suboxone 2 Mg-0.5 Mg DAILY GABE Sl Film] 1 Each F Ondansetron HCl 4 mg 01/12/20 12:22 01/12/20 20:25 Ondansetron 4 Mg/2 Ml Vial IVP 4 mg Q8HR PRN Administration Nausea And Vomiting Pantoprazole Sodium 40 mg 01/12/20 21:00 01/13/20 08:59 Pantoprazole 40 Mg/10 Ml Vial IVP 40 mg BID GABE Administration Objective - Vital Signs Vital signs: Vital Signs Temp 98.2 F 01/13/20 07:56 Pulse 82 01/13/20 07:56 Resp 16 01/13/20 07:56 BP 134/64 01/13/20 07:56 Pulse Ox 96 01/13/20 07:56 Intake & Output 01/12/20 01/13/20 01/13/20 18:59 06:59 18:59 Intake Total 500 1180 Balance 500 1180 Weight 79.832 kg Intake: Oral 500 1180 Other: Voiding Method Toilet Toilet Toilet # Voids 0 3 2 - Exam GENERAL: The patient is alert and oriented x3, not in any acute distress. Well developed, well nourished. HEENT: Pupils are round and equally reacting to light. EOMI. No scleral icterus. No conjunctival pallor. Normocephalic, atraumatic. No pharyngeal erythema. No thyromegaly. CARDIOVASCULAR: S1 and S2 present. No murmurs, rubs, or gallops. PULMONARY: Chest is clear to auscultation, no wheezing or crackles. -ABDOMEN: Soft, generalized periumbilical pain with epigastric pain and tenderness, with little guarding but no rebound tenderness, nondistended, normoactive bowel sounds. No palpable organomegaly. MUSCULOSKELETAL: No joint swelling or deformity. EXTREMITIES: No cyanosis, clubbing, or pedal edema. NEUROLOGICAL: Gross neurological examination did not reveal any focal deficits. SKIN: No rashes. no petechiae. - Labs CBC & Chem 7: 01/13/20 08:03 01/13/20 08:03 Labs: Abnormal Lab Results - Last 24 Hours (Table) 01/12/20 01/13/20 01/13/20 Range/Units 10:05 08:03 08:03 RBC 3.51 L (4.30-5.90) m/uL Hgb 9.3 L D (13.0-17.5) gm/dL Hct 30.3 L (39.0-53.0) % MCHC 30.6 L (31.0-37.0) g/dL Plt Count 144 L (150-450) k/uL Lymphocytes # 0.5 L (1.0-4.8) k/uL ESR 16 H (0-15) mm/hr Sodium 136 L (137-145) mmol/L Chloride 110 H (98-107) mmol/L Glucose 146 H (74-99) mg/dL Calcium 7.4 L (8.4-10.2) mg/dL Assessment and Plan Assessment: Abdominal pain, with nausea vomiting and diarrhea. Possible gastroenteritis. rule out Crohn's disease exacerbation, versus other pathology in view of his previous bowel surgeries Dehydration and presyncope secondary to above Right leg cramp. Rule out DVT Hypertension GERD History supraventricular tachycardia status post ablation Rheumatoid arthritis and psoriasis Irritable bowel syndrome Chronic diarrhea History of gout History of kidney stones History of C. diff infection Plan: This is a pleasant 69 years old male who presents with abdominal pain. There was suspicion of Crohn's exacerbation. GI team were consulted we'll check ESR and C-reactive protein. Diarrhea stopped. Continue with IV fluid. Pain management. Follow-up recommendation by surgery and GI team. Continue with steroids. Labs and medication were reviewed.. Continue same treatment. Continue with symptomatic treatment. Resume home medication. Monitor lytes and vitals. DVT and GI prophylaxis. Further recommendationsas per clinical course of the patient DVT prophylaxis: Subcutaneous heparin GI Prophylaxis: Ppi Dr. Saldaña will resume the care of the patient tomorrow
[2020-01-13 16:18] LABS: Glucose,Whole Blood 167 mg/dL (75-99)
--- NOTE | 2020-01-13 17:49 | P.CONS ---
History of Present Illness - Reason for Consult Consult date: 01/13/20 abdominal pain, Crohn's disease Requesting physician: Andrew E Sheet - Chief Complaint abdominal pain - History of Present Illness 69-year-old male with a known history of GERD, hypertension, rheumatoid arthritis, nephrolithiasis, psoriasis, prior partial gastrectomy,Crohn's disease currently managed with biologic therapy rigorously requiring surgical intervention the last a few years ago at [facility] who presented to the ER with complaints of abdominal pain, diarrhea and leg cramping. The patient reports frequent loose bowel movements which worsen prior to presentation to the hospital. He describes abdominal pain as sharp and cramping predominantly in the lower abdomen and on the right side. Currently he is maintained on Humira therapy. Patient has required steroids therapy in the past 4 exacerbations of his Crohn's disease. KUB x-ray on presentation was significant for normal gas pattern. He also reported lower extremity crampinglaboratory evaluation significant for WBC 6.7, hemoglobin 9.3, platelet count 144,000, ESR 16, CRP 7.9 with stool testing negative for Clostridium difficile infection. Review of Systems REVIEW OF SYSTEMS: CONSTITUTIONAL: Denies any fevers, chills, weight change or fatigue. CARDIOVASCULAR: Denies any chest pain, palpitations high or low blood pressures RESPIRATORY: Denies any shortness of breath, hemoptysis or cough. GENITOURINARY: No dysuria or hematuria. MUSCULOSKELETAL: No weakness reported. SKIN: Denies any new rashes or lesions, jaundice or pallor. PSYCHIATRIC: Denies any depression or anxiety, does report increased stress. NEUROLOGY: Denies headache, denies any new focal deficits does report some cramping in his legs. EARS/NOSE/THROAT: No recent hearing change, congestion, nasal discharge or sore throat. EYES: No pain in eyes, discharge or change in vision. GASTROINTESTINAL: As per HPI. Past Medical History Past Medical History: GERD/Reflux, Hypertension, Renal Disease, Rheumatoid Arth ritis (RA), Skin Disorder, Supraventricular Tachycardia (SVT) Additional Past Medical History / Comment(s): hx CROHN'S (takes tresa), IBS, chronic diarrhea, migraines-just a couple, hx SVT with ablation, hx ulcers, anemia, generalized gout, kidney stones pt passed on his own, psoriasis, bilateral tinnitis., pinched sciatic nerve History of Any Multi-Drug Resistant Organisms: C-DIFF Year Discovered:: stool MDRO Source:: 2016 Past Surgical History: Bowel Resection, Cardiac Ablation, Cholecystectomy, Heart Catheterization, Hernia Repair, Orthopedic Surgery, Tonsillectomy Additional Past Surgical History / Comment(s): partial gastrectomy (ulcers), bowel resections, fecal transplant, bilateral knee arthroscopic surgery, EGD/colonoscopies, R inguinal hernia repair, bilat cataract removal. Past Anesthesia/Blood Transfusion Reactions: Blood Transfusion Reaction, Motion Sickness Additional Past Anesthesia/Blood Transfusion Reaction / Comm: BLOOD TRANSFUSION- BROKE OUT IN [facility] age 21 Past Psychological History: Anxiety, Depression Additional Psychological History / Comment(s): Retired due to his health. Pt resides with his spouse. He has hx of opiate dependency and is on suboxone. He is independent. Smoking Status: Never smoker Past Alcohol Use History: Occasional Past Drug Use History: None Reported Additional Drug Use History / Comment(s): Hx of opiate dependency-on suboxone. - Past Family History Father Family Medical History: Dementia Additional Family Medical History / Comment(s): Father at the age of 86yrs. Mother Family Medical History: Myocardial Infarction ([place]), Pulmonary Embolus Additional Family Medical History / Comment(s): AGE 73-MO, STROKE DURING CARATID PROCEDURE Medications and Allergies Home Medications Medication Instructions Recorded Confirmed Type Orphenadrine Citrate [Orphenadrine 100 mg PO BID 12/08/17 01/12/20 History Citrate ER] Adalimumab [Humira Pen] 40 mg SQ Q14D 04/25/18 01/12/20 History Febuxostat [Uloric] 80 mg PO DAILY 05/05/18 01/12/20 History Buprenorphine HCl/Naloxone HCl 1 film SL DAILY 12/12/18 01/12/20 History [Suboxone 2 mg-0.5 mg Sl Film] Omeprazole 20 mg PO AC-LUNCH 12/12/18 01/12/20 History amLODIPine [Norvasc] 5 mg PO DAILY 06/10/19 01/12/20 History [id number] 2 tab PO DAILY PRN 01/12/20 01/12/20 History [Excedrin] Allergies Allergy/AdvReac Type Severity Reaction Status Date / Time Iodinated Contrast Media Allergy Anaphylaxis Verified 01/12/20 13:33 [Iodinated Contrast Media - IV Dye] Physical Exam Vitals: Vital Signs Temp Pulse Pulse Resp BP BP Pulse Ox 01/13/20 07:56 98.2 F 82 16 134/64 96 01/13/20 03:00 97.5 F L 79 18 153/70 97 01/12/20 23:07 75 20 170/72 96 01/12/20 20:02 98.7 F 65 18 160/79 95 01/12/20 13:59 98.4 F 70 16 152/69 98 01/12/20 12:38 63 18 161/77 97 01/12/20 12:32 98.8 F 63 18 161/77 97 01/12/20 11:37 18 Intake and Output 01/12/20 01/13/20 01/13/20 22:59 06:59 14:59 Intake Total 500 Balance 500 Intake: Oral 500 Other: Voiding Method Toilet Toilet Toilet # Voids 1 3 1 On physical examination, patient appears comfortable in no apparent distress. HEAD: Normocephalic, atraumatic. EYES: No scleral icterus. No conjunctival injection. MOUTH: No lesions, tongue midline. NECK: Trachea midline, no gross abnormalities. CHEST: Clear to auscultation with no wheezing or rhonchi appreciated. HEART: S1-S2 appreciated. ABDOMEN: Soft, moderately tender to palpation. Bowel sounds are positive. No organomegaly. No guarding or rigidity. EXTREMITIES: No pedal edema. SKIN: No rashes, no jaundice. NEUROLOGIC: Alert and oriented x3. No focal deficits. Results CBC & Chem 7: 01/13/20 08:03 01/13/20 08:03 Labs: Abnormal Lab Results - Last 24 Hours (Table) 01/12/20 01/12/20 01/12/20 Range/Units 10:05 10:05 10:05 RBC (4.30-5.90) m/uL Hgb 11.4 L (13.0-17.5) gm/dL Hct 37.5 L (39.0-53.0) % MCHC 30.5 L (31.0-37.0) g/dL Plt Count (150-450) k/uL Lymphocytes # (1.0-4.8) k/uL ESR (0-15) mm/hr APTT 20.4 L (22.0-30.0) sec Sodium (137-145) mmol/L Chloride (98-107) mmol/L Carbon Dioxide (22-30) mmol/L BUN (9-20) mg/dL Glucose (74-99) mg/dL Calcium (8.4-10.2) mg/dL Urine Ketones 1+ H (Negative) 01/12/20 01/12/20 01/13/20 Range/Units 10:05 10:05 08:03 RBC 3.51 L (4.30-5.90) m/uL Hgb 9.3 L D (13.0-17.5) gm/dL Hct 30.3 L (39.0-53.0) % MCHC 30.6 L (31.0-37.0) g/dL Plt Count 144 L (150-450) k/uL Lymphocytes # 0.5 L (1.0-4.8) k/uL ESR 16 H (0-15) mm/hr APTT (22.0-30.0) sec Sodium 136 L (137-145) mmol/L Chloride 110 H (98-107) mmol/L Carbon Dioxide 19 L (22-30) mmol/L BUN 28 H (9-20) mg/dL Glucose 110 H (74-99) mg/dL Calcium (8.4-10.2) mg/dL Urine Ketones (Negative) 01/13/20 Range/Units 08:03 RBC (4.30-5.90) m/uL Hgb (13.0-17.5) gm/dL Hct (39.0-53.0) % MCHC (31.0-37.0) g/dL Plt Count (150-450) k/uL Lymphocytes # (1.0-4.8) k/uL ESR (0-15) mm/hr APTT (22.0-30.0) sec Sodium 136 L (137-145) mmol/L Chloride 110 H (98-107) mmol/L Carbon Dioxide (22-30) mmol/L BUN (9-20) mg/dL Glucose 146 H (74-99) mg/dL Calcium 7.4 L (8.4-10.2) mg/dL Urine Ketones (Negative) Abdominal x-ray: report reviewed (KUB x-ray with a nonspecific bowel gas pattern.) Assessment and Plan (1) Abdominal pain Narrative/Plan: 69-year-old male with multiple medical comorbidities including Crohn's disease maintained on biologic therapy who presented to the hospital with abdominal pain, diarrhea and lower extremity cramping. Patient reports increased stress recently. Currently he is on Humira therapy for maintenance of his Crohn's disease. He has required bowel resection twice in the past. He reports abdomi nal pain predominantly in the lower abdomen, crampy and sharp in nature. KUB x- ray negative for any acute intra-abdominal process. Testing for Clostridium difficile negative. Unclear symptoms related to exacerbation of his Crohn's disease with normal CRP and only mildly elevated ESR, underlying irritable bowel syndrome, testing for Clostridium difficile negative. Current Visit: Yes Status: Acute Code(s): R10.9 - UNSPECIFIED ABDOMINAL PAIN SNOMED Code(s): 60233505 (2) Crohns disease Current Visit: Yes Status: Acute Code(s): K50.90 - CROHN'S DISEASE, UNSPECIFIED, WITHOUT COMPLICATIONS SNOMED Code(s): 47645753 (3) Diarrhea Current Visit: No Status: Acute Code(s): R19.7 - DIARRHEA, UNSPECIFIED SNOMED Code(s): 89519990 Plan: supportive care Okay for liquid diet, advance to low fiber low residual as tolerated Continue monitor CBC, BMP, LFTs No plans for endoscopy at this time Continue Solu-Medrol therapy Surgical service following the patient Thank you for allowing us to participate in the care of the patient
[2020-01-13 22:36] LABS: Glucose,Whole Blood 98 mg/dL (75-99)
[2020-01-14] MEDS: ONDANSETRON 4 MG/2 ML VIAL IVP PRN (00:56)
[2020-01-14] MEDS: SODIUM CHLORIDE 0.9% 1,000 ML IV SCH ×2 (01:27→20:49)
[2020-01-14] MEDS: HYDROmorphone 0.5 MG/0.5 ML SYRINGE IVP PRN ×4 (01:27→11:16)
[2020-01-14 06:54] LABS: Glucose,Whole Blood 134 mg/dL (75-99)
[2020-01-14] MEDS: PANTOPRAZOLE 40 MG/10 ML VIAL IVP SCH ×2 (07:40→20:48)
[2020-01-14] MEDS: methylPREDNISolone SOD SUCCI 40 MG/ML 1 ML VIAL IV SCH ×2 (07:40→20:48)
[2020-01-14] MEDS: HEPARIN SODIUM,PORCINE 5,000 UNIT/ML 1 ML VIAL SQ SCH ×2 (07:40→20:49)
[2020-01-14] MEDS: MULTIVITAMINS, THERA 1 EACH TAB PO SCH (07:41)
[2020-01-14] MEDS: amLODIPine 5 MG TAB PO SCH (07:41)
[2020-01-14] MEDS: allopurinoL 100 MG TAB PO SCH ×2 (07:41→20:49)
[2020-01-14] MEDS: CYCLOBENZAPRINE 10 MG TAB PO SCH ×2 (07:41→20:48)
[2020-01-14] MEDS: Buprenorphine Hcl/Naloxone Hcl [Suboxone 2 Mg-0.5 Mg Sl Film] 1 EACH F SUBLINGUAL SCH ×2 (07:42→13:19)
--- NOTE | 2020-01-14 07:45 | P.PN ---
Subjective Progress Note Date: 01/14/20 Principal diagnosis: Exacerbation of Crohn's colitis. This is 69-year-old white male with known history rheumatoid arthritis Crohn's colitis opiate dependence who has an underlying history that has flared up recently. He has been tolerating liquid diet as at this time. Pain is improving. No significant nausea or vomiting. Blood pressure is nominal. Objective - Vital Signs Vital signs: Vital Signs Temp 97.7 F 01/14/20 07:36 Pulse 63 01/14/20 07:36 Resp 16 01/14/20 07:36 BP 155/77 01/14/20 07:36 Pulse Ox 95 01/14/20 07:36 Intake & Output 01/13/20 01/14/20 01/14/20 18:59 06:59 18:59 Intake Total 1180 900 Balance 1180 900 Intake: Intake, IV Titration 900 Amount Sodium Chloride 0.9% 1, 900 000 ml @ 75 mls/hr IV . [id number] GABE Rx#:[id number] Oral 1180 Other: Voiding Method Toilet Toilet # Voids 2 2 # Bowel Movements 1 - Constitutional General appearance: Present: average body habitus - EENT Eyes: Absent: abnormal pupil - Respiratory Respiratory: bilateral: CTA - Cardiovascular Rhythm: regular Heart sounds: normal: S1, S2 Abnormal Heart Sounds: Absent: S3 Gallop - Gastrointestinal General gastrointestinal: Present: soft, tenderness - Integumentary Integumentary: Absent: cellulitis - Labs CBC & Chem 7: 01/13/20 08:03 01/13/20 08:03 Labs: Abnormal Lab Results - Last 24 Hours (Table) 01/13/20 01/13/20 01/13/20 Range/Units 08:03 08:03 12:50 RBC 3.51 L (4.30-5.90) m/uL Hgb 9.3 L D (13.0-17.5) gm/dL Hct 30.3 L (39.0-53.0) % MCHC 30.6 L (31.0-37.0) g/dL Plt Count 144 L (150-450) k/uL Lymphocytes # 0.5 L (1.0-4.8) k/uL Sodium 136 L (137-145) mmol/L Chloride 110 H (98-107) mmol/L Glucose 146 H (74-99) mg/dL POC Glucose (mg/dL) (75-99) mg/dL Calcium 7.4 L (8.4-10.2) mg/dL Stool Lactoferrin POSITIVE H (NEGATIVE) 01/13/20 01/14/20 Range/Units 16:16 06:52 RBC (4.30-5.90) m/uL Hgb (13.0-17.5) gm/dL Hct (39.0-53.0) % MCHC (31.0-37.0) g/dL Plt Count (150-450) k/uL Lymphocytes # (1.0-4.8) k/uL Sodium (137-145) mmol/L Chloride (98-107) mmol/L Glucose (74-99) mg/dL POC Glucose (mg/dL) 167 H 134 H (75-99) mg/dL Calcium (8.4-10.2) mg/dL Stool Lactoferrin (NEGATIVE) Microbiology - Last 24 Hours (Table) 01/13/20 12:50 Stool Culture - Preliminary Stool 01/12/20 10:38 Blood Culture - Preliminary Blood No Growth after 24 hours Assessment and Plan (1) Abdominal pain Current Visit: Yes Status: Acute Code(s): R10.9 - UNSPECIFIED ABDOMINAL PAIN SNOMED Code(s): 24096077 (2) Crohns disease Current Visit: Yes Status: Acute Code(s): K50.90 - CROHN'S DISEASE, UNSPECIFIED, WITHOUT COMPLICATIONS SNOMED Code(s): 02197190 (3) Hypertension Current Visit: No Status: Acute Code(s): I10 - ESSENTIAL (PRIMARY) HYPERTENSION SNOMED Code(s): 28104007 (4) Opiate dependence Current Visit: No Status: Acute Code(s): F11.20 - OPIOID DEPENDENCE, UNCOMP LICATED SNOMED Code(s): 25835651 (5) Gout Current Visit: No Status: Chronic Code(s): M10.9 - GOUT, UNSPECIFIED SNOMED Code(s): 81547144 (6) Rheumatoid arthritis Current Visit: No Status: Chronic Code(s): M06.9 - RHEUMATOID ARTHRITIS, UNSPECIFIED SNOMED Code(s): 13062613 Plan: Continue steroid treatment. Appreciate consultants input. Advance diet. Check CBC and CMP in a.m. Time with Patient: [facility] than 30
[2020-01-14 11:04] LABS: Basophils % (A) 0 %; Eosinophils % (A) 0 %; HCT 31.4 % (39.0-53.0); HGB 9.3 gm/dL (13.0-17.5); Hypochromasia Marked; Lymphocytes # (A) 0.6 k/uL (1.0-4.8); Lymphocytes % (A) 7 %; MCH 25.5 pg (25.0-35.0); MCHC 29.6 g/dL (31.0-37.0); MCV 86.3 fL (80.0-100.0); Mean Platelet Volume 6.9; Monocytes # (A) 0.2 k/uL (0-1.0); Monocytes % (A) 2 %; Neutrophils # (A) 6.8 k/uL (1.3-7.7); Neutrophils % (A) 90 %; Platelet Count 140 k/uL (150-450); RBC 3.63 m/uL (4.30-5.90); RDW 14.7 % (11.5-15.5); WBC 7.6 k/uL (3.8-10.6)
[2020-01-14 11:14] LABS: African American GFR (CKD) >90 (>60 ml/min/1.73 sqM); Anion Gap 2 mmol/L; Blood Urea Nitrogen 10 mg/dL (9-20); Calcium 7.8 mg/dL (8.4-10.2); Carbon Dioxide 21 mmol/L (22-30); Chloride 113 mmol/L (98-107); Glucose 157 mg/dL (74-99); Non-African American GFR(CKD) 81 (>60 ml/min/1.73 sqM); Potassium 4.2 mmol/L (3.5-5.1); Sodium 136 mmol/L (137-145)
[2020-01-14 11:42] LABS: Glucose,Whole Blood 164 mg/dL (75-99)
--- NOTE | 2020-01-14 12:27 | P.PN ---
Subjective Progress Note Date: 01/14/20 Principal diagnosis: Abdominal pain Patient says his pain is slightly improved today. He is having more loose stools. He also had 1 episode of vomiting and feels more bloated. He is afebrile. White blood cell count normal. Objective - Vital Signs Vital signs: Vital Signs Temp 97.7 F 01/14/20 07:36 Pulse 63 01/14/20 07:36 Resp 16 01/14/20 07:36 BP 155/77 01/14/20 07:36 Pulse Ox 95 01/14/20 07:36 Intake & Output 01/13/20 01/14/20 01/14/20 18:59 06:59 18:59 Intake Total 1180 900 Balance 1180 900 Intake: Intake, IV Titration 900 Amount Sodium Chloride 0.9% 1, 900 000 ml @ 75 mls/hr IV . [id number] [facility] Rx#:[id number] Oral 1180 Other: Voiding Method Toilet Toilet # Voids 2 2 # Bowel Movements 1 - Exam Abdomen: Soft, mild distention, mild diffuse tenderness - Labs CBC & Chem 7: 01/14/20 10:27 01/14/20 10:27 Labs: Abnormal Lab Results - Last 24 Hours (Table) 01/13/20 01/13/20 01/14/20 Range/Units 12:50 16:16 06:52 RBC (4.30-5.90) m/uL Hgb (13.0-17.5) gm/dL Hct (39.0-53.0) % MCHC (31.0-37.0) g/dL Plt Count (150-450) k/uL Lymphocytes # (1.0-4.8) k/uL Sodium (137-145) mmol/L Chloride (98-107) mmol/L Carbon Dioxide (22-30) mmol/L Glucose (74-99) mg/dL POC Glucose (mg/dL) 167 H 134 H (75-99) mg/dL Calcium (8.4-10.2) mg/dL Stool Lactoferrin POSITIVE H (NEGATIVE) 01/14/20 01/14/20 01/14/20 Range/Units 10:27 10:27 11:40 RBC 3.63 L (4.30-5.90) m/uL Hgb 9.3 L (13.0-17.5) gm/dL Hct 31.4 L (39.0-53.0) % MCHC 29.6 L (31.0-37.0) g/dL Plt Count 140 L (150-450) k/uL Lymphocytes # 0.6 L (1.0-4.8) k/uL Sodium 136 L (137-145) mmol/L Chloride 113 H (98-107) mmol/L Carbon Dioxide 21 L (22-30) mmol/L Glucose 157 H (74-99) mg/dL POC Glucose (mg/dL) 164 H (75-99) mg/dL Calcium 7.8 L (8.4-10.2) mg/dL Stool Lactoferrin (NEGATIVE) Microbiology - Last 24 Hours (Table) 01/13/20 12:50 Stool Culture - Preliminary Stool 01/12/20 10:38 Blood Culture - Preliminary Blood No Growth after 24 hours Assessment and Plan (1) Exacerbation of Crohn's disease Narrative/Plan: Continue medical management of the patient's exacerbation of Crohn's. If symptoms persist or worsen Will proceed with CT abdomen and pelvis. Currently with the frequent loose stools doubt obstruction. We'll follow. Current Visit: Yes Status: Acute Code(s): K50.90 - CROHN'S DISEASE, UNSPECIFIED, WITHOUT COMPLICATIONS SNOMED Code(s): 43808173
--- NOTE | 2020-01-14 13:02 | P.PN ---
Subjective Progress Note Date: 01/14/20 Principal diagnosis: Exacerbation of Crohn's disease This is a pleasant 69-year-old male patient who is known to occur tomorrow for a history of Crohn's disease. The patient is currently on Humira. He came into the hospital for severe abdominal pain. Today he states the pain is somewhat better, he is not having any bloody stools, however had 4 loose bowel movements today. He denies any vomiting today. He is currently on Solu-Medrol 30 mg every 12 hours IV. He is scheduled for a outpatient colonoscopy on January 31. Objective - Vital Signs Vital signs: Vital Signs Temp 97.7 F 01/14/20 07:36 Pulse 63 01/14/20 07:36 Resp 16 01/14/20 07:36 BP 155/77 01/14/20 07:36 Pulse Ox 95 01/14/20 07:36 Intake & Output 01/13/20 01/14/20 01/14/20 18:59 06:59 18:59 Intake Total 1180 900 Balance 1180 900 Intake: Intake, IV Titration 900 Amount Sodium Chloride 0.9% 1, 900 000 ml @ 75 mls/hr IV . [id number] GABE Rx#:[id number] Oral 1180 Other: Voiding Method Toilet Toilet # Voids 2 2 # Bowel Movements 1 - Exam General appearance: The patient is alert, oriented, in no acute distress. HET: Head is normocephalic and atraumatic. Conjunctiva pink. Sclera anicteric.. Neck: Supple without lymphadenopathy. Trachea midline. Heart: S1 S2. Regular rate and rhythm. Lungs: No crackles or wheezes are heard. Abdomen: Soft, use tenderness in the lower abdomen, nondistended with bowel sounds. No guarding or rigidity. Extremities: Normal skin color and turgor. No pedal edema. Neurological: No focal deficits. Alert and oriented 3.. - Labs CBC & Chem 7: 01/14/20 10:27 01/14/20 10:27 Labs: Abnormal Lab Results - Last 24 Hours (Table) 01/13/20 01/13/20 01/14/20 Range/Units 12:50 16:16 06:52 RBC (4.30-5.90) m/uL Hgb (13.0-17.5) gm/dL Hct (39.0-53.0) % MCHC (31.0-37.0) g/dL Plt Count (150-450) k/uL Lymphocytes # (1.0-4.8) k/uL Sodium (137-145) mmol/L Chloride (98-107) mmol/L Carbon Dioxide (22-30) mmol/L Glucose (74-99) mg/dL POC Glucose (mg/dL) 167 H 134 H (75-99) mg/dL Calcium (8.4-10.2) mg/dL Stool Lactoferrin POSITIVE H (NEGATIVE) 01/14/20 01/14/20 01/14/20 Range/Units 10:27 10:27 11:40 RBC 3.63 L (4.30-5.90) m/uL Hgb 9.3 L (13.0-17.5) gm/dL Hct 31.4 L (39.0-53.0) % MCHC 29.6 L (31.0-37.0) g/dL Plt Count 140 L (150-450) k/uL Lymphocytes # 0.6 L (1.0-4.8) k/uL Sodium 136 L (137-145) mmol/L Chloride 113 H (98-107) mmol/L Carbon Dioxide 21 L (22-30) mmol/L Glucose 157 H (74-99) mg/dL POC Glucose (mg/dL) 164 H (75-99) mg/dL Calcium 7.8 L (8.4-10.2) mg/dL Stool Lactoferrin (NEGATIVE) Microbiology - Last 24 Hours (Table) 01/12/20 10:38 Blood Culture - Preliminary Blood No Growth after 48 hours 01/13/20 12:50 Stool Culture - Preliminary Stool Assessment and Plan (1) Abdominal pain Narrative/Plan: 69-year-old male with multiple medical comorbidities including Crohn's disease maintained on biologic therapy who presented to the hospital with abdominal pain, diarrhea and lower extremity cramping. Patient reports increased stress recently. Currently he is on Humira therapy for maintenance of his Crohn's disease. He has required bowel resection twice in the past. He reports abdominal pain predominantly in the lower abdomen, crampy and sharp in nature. KUB x-ray negative for any acute intra-abdominal process. Testing for Clostridium difficile negative. Unclear symptoms related to exacerbation of his Crohn's disease with normal CRP and only mildly elevated ESR, underlying irri table bowel syndrome, testing for Clostridium difficile negative. Current Visit: Yes Status: Acute Code(s): R10.9 - UNSPECIFIED ABDOMINAL PAIN SNOMED Code(s): 21581843 (2) Crohns disease Current Visit: Yes Status: Acute Code(s): K50.90 - CROHN'S DISEASE, UNSPECIFIED, WITHOUT COMPLICATIONS SNOMED Code(s): 10013542 (3) Diarrhea Current Visit: No Status: Acute Code(s): R19.7 - DIARRHEA, UNSPECIFIED SNOMED Code(s): 30594150 Plan: supportive care Low Fiber diet Continue monitor CBC, BMP, LFTs No plans for endoscopy at this time Continue Solu-Medrol therapy, will likely transition to prednisone 30 mg taper dose tomorrow if doing better Surgical service following the patient Thank you for allowing us to participate in the care of the patient The impression and plan of care has been dictated as directed. Dr. Elizabeth Yancey I performed a history and examination of this patient, discussed the same with the dictator. I agree with the dictator's note ,documented as a scribe. Any additional findings or plans will be noted.
[2020-01-14 16:42] LABS: Glucose,Whole Blood 178 mg/dL (75-99)
[2020-01-14 20:48] LABS: Glucose,Whole Blood 120 mg/dL (75-99)
[2020-01-15 02:45] VITALS: RESP 16
[2020-01-15 06:19] LABS: Glucose,Whole Blood 139 mg/dL (75-99)
[2020-01-15] MEDS: CYCLOBENZAPRINE 10 MG TAB PO SCH (08:45)
[2020-01-15] MEDS: Buprenorphine Hcl/Naloxone Hcl [Suboxone 2 Mg-0.5 Mg Sl Film] 1 EACH F SUBLINGUAL SCH (08:45)
[2020-01-15] MEDS: MULTIVITAMINS, THERA 1 EACH TAB PO SCH (08:46)
[2020-01-15] MEDS: amLODIPine 5 MG TAB PO SCH (08:46)
[2020-01-15] MEDS: HEPARIN SODIUM,PORCINE 5,000 UNIT/ML 1 ML VIAL SQ SCH (08:46)
[2020-01-15] MEDS: PANTOPRAZOLE 40 MG/10 ML VIAL IVP SCH (08:46)
[2020-01-15] MEDS: methylPREDNISolone SOD SUCCI 40 MG/ML 1 ML VIAL IV SCH (08:46)
[2020-01-15] MEDS: allopurinoL 100 MG TAB PO SCH (08:46)
[2020-01-15 08:50] VITALS: BP 165/78; PULSE 69; TEMP 98.2
--- NOTE | 2020-01-15 09:53 | P.PN ---
Subjective Progress Note Date: 01/15/20 Principal diagnosis: Exacerbation of Crohn's disease The patient was seen and examined at the bedside. NO acute changes through the night. He denies any nausea or vomiting, fever, or chills. Abdominal pain improving, stools still loose, but no blood. He is tolerating his low fiber diet. Discharge order has been entered. Objective - Vital Signs Vital signs: Vital Signs Temp 98.4 F 01/15/20 02:44 Pulse 70 01/15/20 02:44 Resp 16 01/15/20 02:44 BP 176/75 01/15/20 02:44 Pulse Ox 95 01/15/20 02:44 Intake & Output 01/14/20 01/15/20 01/15/20 18:59 06:59 18:59 Intake Total 900 Balance 900 Intake: Oral 900 Other: Voiding Method Toilet # Voids 1 2 # Bowel Movements 1 - Exam General appearance: The patient is alert, oriented, in no acute distress. HET: Head is normocephalic and atraumatic. Conjunctiva pink. Sclera anicteric.. Neck: Supple without lymphadenopathy. Trachea midline. Heart: S1 S2. Regular rate and rhythm. Lungs: No crackles or wheezes are heard. Abdomen: Soft, use tenderness in the lower abdomen, nondistended with bowel sounds. No guarding or rigidity. Extremities: Normal skin color and turgor. No pedal edema. Neurological: No focal deficits. Alert and oriented 3.. - Labs CBC & Chem 7: 01/14/20 10:27 01/14/20 10:27 Labs: Abnormal Lab Results - Last 24 Hours (Table) 01/14/20 01/14/20 01/14/20 Range/Units 10:27 10:27 11:40 RBC 3.63 L (4.30-5.90) m/uL Hgb 9.3 L (13.0-17.5) gm/dL Hct 31.4 L (39.0-53.0) % MCHC 29.6 L (31.0-37.0) g/dL Plt Count 140 L (150-450) k/uL Lymphocytes # 0.6 L (1.0-4.8) k/uL Sodium 136 L (137-145) mmol/L Chloride 113 H (98-107) mmol/L Carbon Dioxide 21 L (22-30) mmol/L Glucose 157 H (74-99) mg/dL POC Glucose (mg/dL) 164 H (75-99) mg/dL Calcium 7.8 L (8.4-10.2) mg/dL 01/14/20 01/14/20 01/15/20 Range/Units 16:40 20:46 06:17 RBC (4.30-5.90) m/uL Hgb (13.0-17.5) gm/dL Hct (39.0-53.0) % MCHC (31.0-37.0) g/dL Plt Count (150-450) k/uL Lymphocytes # (1.0-4.8) k/uL Sodium (137-145) mmol/L Chloride (98-107) mmol/L Carbon Dioxide (22-30) mmol/L Glucose (74-99) mg/dL POC Glucose (mg/dL) 178 H 120 H 139 H (75-99) mg/dL Calcium (8.4-10.2) mg/dL Microbiology - Last 24 Hours (Table) 01/12/20 10:38 Blood Culture - Preliminary Blood No Growth after 48 hours Assessment and Plan Assessment: (1) Abdominal pain Narrative/Plan: 69-year-old male with multiple medical comorbidities including Crohn's disease maintained on biologic therapy who presented to the hospital with abdominal pain, diarrhea and lower extremity cramping. Patient reports increased stress recently. Currently he is on Humira therapy for maintenance of his Crohn's disease. He has required bowel resection twice in the past. He reports ab dominal pain predominantly in the lower abdomen, crampy and sharp in nature. KUB x-ray negative for any acute intra-abdominal process. Testing for Clostridium difficile negative. Unclear symptoms related to exacerbation of his Crohn's disease with normal CRP and only mildly elevated ESR, underlying irritable bowel syndrome, testing for Clostridium difficile negative. Current Visit: Yes Status: Acute Code(s): R10.9 - UNSPECIFIED ABDOMINAL PAIN SNOMED Code(s): 62342053 (2) Crohns disease Current Visit: Yes Status: Acute Code(s): K50.90 - CROHN'S DISEASE, UNSPECIFIED, WITHOUT COMPLICATIONS SNOMED Code(s): 06569737 (3) Diarrhea Current Visit: No Status: Acute Code(s): R19.7 - DIARRHEA, UNSPECIFIED SNOMED Code(s): 25189850 Plan: supportive care Okay for liquid diet, advance to low fiber low residual as tolerated Continue monitor CBC, BMP, LFTs No plans for endoscopy at this time Continue Solu-Medrol therapy Surgical service following the patient Thank you for allowing us to participate in the care of the patient (1) Abdominal pain Narrative/Plan: 69-year-old male with multiple medical comorbidities including Crohn's disease maintained on biologic therapy who presented to the hospital with abdominal pain, diarrhea and lower extremity cramping. Patient reports increased stress recently. Currently he is on Humira therapy for maintenance of his Crohn's disease. He has required bowel resection twice in the past. He reports abdominal pain predominantly in the lower abdomen, crampy and sharp in nature. KUB x-ray negative for any acute intra-abdominal process. Testing for Clostridium difficile negative. Unclear symptoms related to exacerbation of his Crohn's disease with normal CRP and only mildly elevated ESR, underlying irritable bowel syndrome, testing for Clostridium difficile negative. Current Visit: Yes Status: Acute Code(s): R10.9 - UNSPECIFIED ABDOMINAL PAIN SNOMED Code(s): 33909447 (2) Crohns disease Current Visit: Yes Status: Acute Code(s): K50.90 - CROHN'S DISEASE, UNSPECIFIED, WITHOUT COMPLICATIONS SNOMED Code(s): 33168221 (3) Diarrhea Current Visit: No Status: Acute Code(s): R19.7 - DIARRHEA, UNSPECIFIED SNOMED Code(s): 46193733 Plan: supportive care Low Fiber diet No plans for endoscopy at this time, is scheduled for outpatient colonosocopy on 02/01/2020 Will discharge home on prednisone 40 mg taper dose Surgical service following the patient Okay for discharge, follow up in 1-[address] Yancey Thank you for allowing us to participate in the care of the patient The above dictated assessment and findings were discussed with Dr. Elizabeth Yancey. The impression and plan of care have been directed as dictated.
[2020-01-15] MEDS: SODIUM CHLORIDE 0.9% 1,000 ML IV SCH (12:36)
--- NOTE | 2020-01-24 23:46 | P.DS ---
Providers Date of admission: 01/13/20 12:45 Attending physician: Minh Saldaña Consults: 01/12/20 12:23 Consult Physician Routine Consulting Provider: Laura Yancey Consult Reason/Comments: Crohn's exacerbation Do you want consulting provider notified?: Yes 01/12/20 13:36 Consult Physician Urgent Consulting Provider: Peter Patten Consult Reason/Comments: abd pain and guarding Do you want consulting provider notified?: Yes Primary care physician: Minh Saldaña - Discharge Diagnosis(es) (1) Abdominal pain Status: Acute (2) Crohns disease Status: Acute (3) Hypertension Status: Acute (4) Opiate dependence Status: Acute (5) Gout Status: Chronic (6) Rheumatoid arthritis Status: Chronic Hospital Course: This is discharge from a 69-year-old white male with known history of Crohn's colitis. The patient also has underlying history was stabilized with appro Appropriate consultation was procured and the patient was tolerating with appropriate regimen. The patient discharged in stable in about 1 week. Patient Condition at Discharge: Fair Plan - Discharge Summary Discharge Rx Participant: No New Discharge Prescriptions: New predniSONE [Deltasone] 40 mg PO DIRECTED #30 tab Multivitamins, Thera [Multivitamin (formulary)] 1 each PO DAILY tab Continue Orphenadrine Citrate [Orphenadrine Citrate ER] 100 mg PO BID Adalimumab [Humira Pen] 40 mg SQ Q14D Febuxostat [Uloric] 80 mg PO DAILY Omeprazole 20 mg PO AC-LUNCH Buprenorphine HCl/Naloxone HCl [Suboxone 2 mg-0.5 mg Sl Film] 1 film SL DAILY amLODIPine [Norvasc] 5 mg PO DAILY Ufrimle-Prwy-Fdtp [id number] [Excedrin] 2 tab PO DAILY PRN PRN Reason: Migraine Headache Discharge Medication List Orphenadrine Citrate [Orphenadrine Citrate ER] 100 mg PO BID 12/08/17 [History] Adalimumab [Humira Pen] 40 mg SQ Q14D 04/25/18 [History] Febuxostat [Uloric] 80 mg PO DAILY 05/05/18 [History] Buprenorphine HCl/Naloxone HCl [Suboxone 2 mg-0.5 mg Sl Film] 1 film SL DAILY 12/12/18 [History] Omeprazole 20 mg PO AC-LUNCH 12/12/18 [History] amLODIPine [Norvasc] 5 mg PO DAILY 06/10/19 [History] Drfgbdw-Nxpf-Jkuf [phone] [Excedrin] 2 tab PO DAILY PRN 01/12/20 [History] Multivitamins, Thera [Multivitamin (formulary)] 1 each PO DAILY tab 01/15/20 [Rx] predniSONE [Deltasone] 40 mg PO DIRECTED #30 tab 01/15/20 [Rx] Follow up Appointment(s)/Referral(s): Minh Saldaña MD [Primary Care Provider] - 1-2 days Laura Yancey MD [STAFF PHYSICIAN] - As Needed Patient Instructions/Handouts: Crohn Disease (DC) Discharge/Stand Alone Forms: Work/Release Restrictions Form Discharge Disposition: HOME SELF-CARE
== END 2020-01-15 11:23 | disposition home or self-care (01) | DRG 386 ==
LOC: EC 09:30 → 1SOBS 12:26 → OBSVTOIN 01-13 12:45
PROVIDERS: ADMIT Family Medicine; ATTEND Family Medicine
DX: K50.10 Crohn's disease of large intestine without complications (principal); F11.20 Opioid dependence, uncomplicated; M06.9 Rheumatoid arthritis, unspecified; E86.0 Dehydration; I10 Essential (primary) hypertension; K21.9 Gastro-esophageal reflux disease without esophagitis; M10.9 Gout, unspecified; L40.9 Psoriasis, unspecified; R25.2 Cramp and spasm; G43.909 Migraine, unspecified, not intractable, without status migrainosus; F41.9 Anxiety disorder, unspecified; F32.9 Major depressive disorder, single episode, unspecified; D64.9 Anemia, unspecified; Z79.82 Long term (current) use of aspirin; Z79.899 Other long term (current) drug therapy; Z87.442 Personal history of urinary calculi; Z90.49 Acquired absence of other specified parts of digestive tract; Z98.890 Other specified postprocedural states; Z92.89 Personal history of other medical treatment; Z90.3 Acquired absence of stomach [part of]; Z98.42 Cataract extraction status, left eye; Z98.41 Cataract extraction status, right eye; Z87.11 Personal history of peptic ulcer disease; Z91.041 Radiographic dye allergy status; Z82.0 Family history of epilepsy and other diseases of the nervous system; Z82.49 Family history of ischemic heart disease and other diseases of the circulatory system; Z82.3 Family history of stroke
CPT/HCPCS: 36415; 74018; 80048; 80053; 81003; 82150; 82550; 83605; 83630; 83690; 84484; 85025; 85610; 85652; 85730; 86140; 87040; 87045; 87046; 87324; 96361; 96374; 96375; 99285

== ENCOUNTER → 2020-02-01 | Day surgery (SDC) | payer BC, MEDICARE ==
[2020-01-31 11:16] VITALS: BMI 22.9
[~2020-02-01] MED LIST changes: -GLUCAGON 1 MG/ML VIAL IM STA; +LACTATED RINGERS 1,000 ML IV SCH; +LIDOCAINE 1% (10MG/ML) FOR IV START INTRADERMA ONE; +LIDOCAINE 1% INJ 10MG/ML (20 ML MDV) ONE; +PROPOFOL 10 MG/ML 50 ML VIAL IV ONE
[2020-02-01 09:02] VITALS: TEMP 97.6
--- NOTE | 2020-02-01 09:38 | P.PCN ---
Date of Procedure: 02/01/20 Procedure(s) Performed: BRIEF HISTORY: Patient is a 69-year-old pleasant white female scheduled for an elective colonoscopy as a part of evaluation of abdominal pain, intermittent diarrhea for the last few months duration. He has history of Crohn's disease for which she underwent terminal ileal and right colon resection several years ago. 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 His last colonoscopy was in years ago and was noted to have no active Crohn's disease. Recent imaging on the 20 mg every 2 weeks. He scheduled for colonoscopy to evaluate for recurrent Crohn's disease. PROCEDURE PERFORMED: Colonoscopy with random biopsy. PREOPERATIVE DIAGNOSIS: Long-standing history of Crohn's disease involving the small bowel status post small bowel resection in the past last one in 2013. IV sedation per Anesthesia. PROCEDURE: After informed consent was obtained, the patient, was brought into the endoscopy unit. IV sedation was administered by Anesthesia under continuous monitoring. Digital rectal examination was normal. Initially the Olympus CF-160 flexible video colonoscope was then inserted in the rectum, gradually advanced into the right colon with ileocolic anastomosis was visualized that was widely patent normal. The scope was advanced into the distal ileum and appeared normal. Prep was fair. Mucosa of the transverse colon, descending colon, sigmoid colon, and rectum appeared normal. Random biopsies were done from the transverse colon, descending colon;. Retroflexion was performed in the rectum and no lesions were seen. The patient tolerated the procedure well. IMPRESSION: Normal-appearing colon from rectum to transverse colon with no evidence of active colitis or colorectal neoplasia. Widely patent ileocolic anastomosis in the transverse colon. Distal ileum appeared normal. RECOMMENDATIONS: Findings of this examination were discussed with the patient as well as his family. He was advised to follow with the biopsy results. He will continue with a 20 mg every 2 weeks and he'll be seen in office in 3-4 weeks.
[2020-02-01 09:41] VITALS: RESP 17
[2020-02-01 09:57] VITALS: BP 188/78; PULSE 68
== END ==
LOC: ORWHC2ENDO 08:19
PROVIDERS: ATTEND Internal Medicine Gastroenterology
DX: K50.00 Crohn's disease of small intestine without complications (principal); I47.1 Supraventricular tachycardia; I10 Essential (primary) hypertension; G43.909 Migraine, unspecified, not intractable, without status migrainosus; K21.9 Gastro-esophageal reflux disease without esophagitis; M06.9 Rheumatoid arthritis, unspecified; Z90.49 Acquired absence of other specified parts of digestive tract; Z98.0 Intestinal bypass and anastomosis status; Z91.041 Radiographic dye allergy status; Z79.899 Other long term (current) drug therapy; Z98.890 Other specified postprocedural states; Z87.11 Personal history of peptic ulcer disease; Z87.898 Personal history of other specified conditions
CPT/HCPCS: 45380; 88305; J2001; J2704

== ENCOUNTER 2020-02-27 00:59 | Inpatient (IN) | payer BC, MEDICARE ==
[2020-02-27 01:51] LABS: Basophils # (A) 0.1 k/uL (0-0.2); Basophils % (A) 1 %; Eosinophils # (A) 0.2 k/uL (0-0.7); Eosinophils % (A) 2 %; HCT 32.1 % (39.0-53.0); Hypochromasia Slight; Lymphocytes % (A) 39 %; MCHC 31.2 g/dL (31.0-37.0); MCV 86.3 fL (80.0-100.0); Mean Platelet Volume 6.7; Monocytes # (A) 0.4 k/uL (0-1.0); Monocytes % (A) 5 %; Neutrophils # (A) 3.8 k/uL (1.3-7.7); Neutrophils % (A) 49 %; Platelet Count 235 k/uL (150-450); RBC 3.72 m/uL (4.30-5.90); RDW 15.7 % (11.5-15.5); WBC 7.7 k/uL (3.8-10.6)
[2020-02-27 02:12] LABS: ALT 26 U/L (4-49); AST 54 U/L (17-59); African American GFR (CKD) >90 (>60 ml/min/1.73 sqM); Albumin 2.9 g/dL (3.5-5.0); Alkaline Phosphatase 62 U/L (38-126); Amylase 137 U/L (30-110); Anion Gap 6 mmol/L; Blood Urea Nitrogen 12 mg/dL (9-20); C Reactive Protein <5.0 mg/L (<10.0); Carbon Dioxide 13 mmol/L (22-30); Chloride 118 mmol/L (98-107); Glucose 81 mg/dL (74-99); Lipase 78 U/L (23-300); Non-African American GFR(CKD) 79 (>60 ml/min/1.73 sqM); Sodium 137 mmol/L (137-145); Total Bilirubin 0.5 mg/dL (0.2-1.3); Total Protein 6.5 g/dL (6.3-8.2)
[2020-02-27 02:14] LABS: Potassium 4.7 mmol/L (3.5-5.1)
--- NOTE | 2020-02-27 02:17 | XR ---
EXAM: XR Abdomen, 1 View CLINICAL HISTORY: ITS.REASON XR Reason: abdominal pain TECHNIQUE: Frontal upright view of the abdomen/pelvis. COMPARISON: Abdominal radiograph 01/12/20 FINDINGS: Intraperitoneal space: No free air. Gastrointestinal tract: Multiple small and large bowel fluid levels without daniel bowel dilatation. Organs: Cholecystectomy clips right upper quadrant. Bones/joints: No acute osseous findings. IMPRESSION: Multiple bowel fluid levels without daniel bowel dilatation, overall nonspecific bowel gas pattern. Appearance favors ileus or enteritis over bowel obstruction.
[2020-02-27] MEDS ORDERED: SODIUM CHLORIDE 0.9% 500 ML 500 ML IV STA (02:53)
[2020-02-27] MEDS ORDERED: MORPHINE SULFATE 4 MG/ML SYRINGE IV STA (02:53)
[2020-02-27 02:57] LABS: Appearance,Urine Clear (Clear); Bilirubin,Urine Negative (Negative); Blood,Urine Negative (Negative); Color,Urine Light Yellow; Glucose,Urine (UA) Negative (Negative); Ketones,Urine Negative (Negative); Leukocyte Esterase,Urine Negative (Negative); Nitrite,Urine Negative (Negative); Protein,Urine Negative (Negative); Specific Gravity,Urine 1.009 (1.001-1.035); Urobilinogen,Urine <2.0 mg/dL (<2.0)
[2020-02-27] MEDS ORDERED: ONDANSETRON 4 MG/2 ML VIAL IVP STA (03:04)
[2020-02-27] MEDS ORDERED: methylPREDNISolone SOD SUCCI 125 MG/2 ML VIAL IV STA (05:41)
[2020-02-27] MEDS ORDERED: ACETAMINOPHEN TAB 325 MG TAB PO PRN (06:00)
[2020-02-27] MEDS ORDERED: NALOXONE 0.4 MG/ML 1 ML VIAL IV PRN (06:00)
[2020-02-27] MEDS: SODIUM CHLORIDE 0.9% 1,000 ML IV SCH ×3 (06:20→18:12)
[2020-02-27] MEDS: ONDANSETRON 4 MG/2 ML VIAL IVP PRN ×2 (06:20→14:25)
[2020-02-27] MEDS: MORPHINE SULFATE 4 MG/ML SYRINGE IV PRN ×4 (06:22→20:16)
--- NOTE | 2020-02-27 08:09 | ED ---
Abdominal Pain HPI - General Chief Complaint: Abdominal Pain Stated Complaint: Abd Pain Time Seen by Provider: 02/27/20 01:17 Source: patient Mode of arrival: ambulatory Limitations: no limitations - History of Present Illness Initial Comments: this patient 69-year-old man with history of Crohn's disease who is concerned he is having exacerbation of the same. He is having diffuse abdominal pain as well as nausea and vomiting. MD Complaint: abdominal pain Onset/Timin -: days(s) Location: diffuse Radiation: none Migration to: no migration Severity: moderate Quality: cramping, sharp Consistency: colicky Improves With: nothing Worsens With: nothing Associated Symptoms: nausea, vomiting - Related Data Home Medications Medication Instructions Recorded Confirmed Orphenadrine Citrate [Orphenadrine 100 mg PO BID 12/08/17 02/27/20 Citrate ER] Adalimumab [Humira Pen] 40 mg SQ Q14D 04/25/18 02/27/20 Febuxostat [Uloric] 80 mg PO DAILY 05/05/18 02/27/20 Buprenorphine HCl/Naloxone HCl 1 film SL HS 12/12/18 02/27/20 [Suboxone 2 mg-0.5 mg Sl Film] Omeprazole 20 mg PO BID 12/12/18 02/27/20 amLODIPine [Norvasc] 5 mg PO DAILY 06/10/19 02/27/20 Nofhhcm-Blbz-Eimp [id number] 2 tab PO DAILY PRN 01/12/20 02/27/20 [Excedrin] Amoxic-Pot Clav 875-125Mg 1 tab PO Q12HR 02/27/20 02/27/20 [Augmentin 875-125] Multivitamins, Thera [Multivitamin 1 tab PO DAILY 02/27/20 02/27/20 (formulary)] methocarbamoL [Robaxin] 750 mg PO TID 02/27/20 02/27/20 Allergies Allergy/AdvReac Type Severity Reaction Status Date / Time Iodinated Contrast Media Allergy Anaphylaxis Verified 02/27/20 09:15 [Iodinated Contrast Media - IV Dye] Review of Systems ROS Statement: Those systems with pertinent positive or pertinent negative responses have been documented in the HPI. ROS Other: All systems not noted in ROS Statement are negative. Constitutional: Denies: fever, chills, weakness Respiratory: Denies: cough, dyspnea Cardiovascular: Denies: chest pain, palpitations, orthopnea, edema Gastrointestinal: Reports: abdominal pain, nausea, vomiting. Denies: constipation, hematemesis, melena, hematochezia Genitourinary: Denies: dysuria, hematuria Musculoskeletal: Denies: back pain Skin: Denies: rash Neurological: Denies: headache, weakness, numbness Past Medical History Past Medical History: GERD/Reflux, Hypertension, Rheumatoid Arthritis (RA), Skin Disorder, Supraventricular Tachycardia (SVT) Additional Past Medical History / Comment(s): hx CROHN'S (takes tresa), IBS, chronic diarrhea, migraines-, hx ulcers, anemia, gout, kidney stones, psoriasis, bilateral tinnitis., pinched sciatic nerve History of Any Multi-Drug Resistant Organisms: C-DIFF Date of last positivie culture/infection: stool MDRO Source:: 2016 Past Surgical History: Bowel Resection, Cardiac Ablation, Cholecystectomy, Heart Catheterization, Hernia Repair, Orthopedic Surgery, Tonsillectomy Additional Past Surgical History / Comment(s): partial gastrectomy (ulcers), bowel resections, fecal transplant, bilateral knee arthroscopic surgery, EGD/colonoscopies, R inguinal hernia repair, bilat cataract removal. Past Anesthesia/Blood Transfusion Reactions: Blood Transfusion Reaction, Motion Sickness Additional Past Anesthesia/Blood Transfusion Reaction / Comment(s): BLOOD TRANSFUSION- BROKE OUT IN HIVES age 21 Past Psychological History: No Psychological Hx Reported Smoking Status: Never smoker Past Alcohol Use History: Occasional Past Drug Use History: None Reported - Past Family History Mother Family Medical History: Pulmonary Embolus Additional Family Medical History / Comment(s): AGE 73[place], STROKE DURING CARATID PROCEDURE General Exam Limitations: no limitations General appearance: alert, in no apparent distress Head exam: Present: atraumatic, normocephalic Eye exam: Present: normal appearance. Absent: scleral icterus, conjunctival injection ENT exam: Present: normal oropharynx Neck exam: Present: normal inspection Respiratory exam: Present: normal lung sounds bilaterally. Absent: respiratory distress, wheezes, rales, rhonchi, stridor Cardiovascular Exam: Present: regular rate, normal rhythm, normal heart sounds. Absent: systolic murmur, diastolic murmur, rubs, gallop GI/Abdominal exam: Present: soft, tenderness, hypoactive bowel sounds. Absent: distended, guarding, rebound, rigid, mass, pulsatile mass, hernia Extremities exam: Present: normal inspection, normal capillary refill. Absent: pedal edema, calf tenderness Back exam: Present: normal inspection. Absent: CVA tenderness (R), CVA tenderness (L) Neurological exam: Present: alert Skin exam: Present: warm, dry, intact. Absent: rash Course Vital Signs 02/27/20 02/27/20 02/27/20 01:05 03:00 06:00 Temperature 97.9 F 97.1 F L 98 F Pulse Rate 78 86 67 Respiratory 20 18 18 Rate Blood Pressure 153/91 196/93 157/87 O2 Sat by Pulse 99 97 98 Oximetry 02/27/20 08:51 Temperature 98.2 F Pulse Rate 87 Respiratory 16 Rate Blood Pressure 112/74 O2 Sat by Pulse 98 Oximetry Medical Decision Making - Medical Decision Making this patient is 69-year-old man with history of Crohn's disease who presents with complaint that he is having symptoms suggestive of previous flares. He has not had daniel blood with bowel movements. Patient also states that he had been started on antibiotic (possibly Augmentin) for sinus infection, and therefore Clostridium difficile ordered - Lab Data Result diagrams: 02/28/20 04:52 02/28/20 04:52 Lab Results 02/27/20 02/27/20 02/27/20 Range/Units 01:23 01:23 01:23 WBC 7.7 (3.8-10.6) k/uL RBC 3.72 L (4.30-5.90) m/uL Hgb 10.0 L (13.0-17.5) gm/dL Hct 32.1 L (39.0-53.0) % MCV 86.3 (80.0-100.0) fL MCH 27.0 (25.0-35.0) pg MCHC 31.2 (31.0-37.0) g/dL RDW 15.7 H (11.5-15.5) % Plt Count 235 (150-450) k/uL MPV 6.7 Neutrophils % 49 % Lymphocytes % 39 % Monocytes % 5 % Eosinophils % 2 % Basophils % 1 % Neutrophils # 3.8 (1.3-7.7) k/uL Lymphocytes # 3.0 (1.0-4.8) k/uL Monocytes # 0.4 (0-1.0) k/uL Eosinophils # 0.2 (0-0.7) k/uL Basophils # 0.1 (0-0.2) k/uL Hypochromasia Slight Sodium 137 (137-145) mmol/L Potassium 4.7 (3.5-5.1) mmol/L Chloride 118 H (98-107) mmol/L Carbon Dioxide 13 L (22-30) mmol/L Anion Gap 6 mmol/L BUN 12 (9-20) mg/dL Creatinine 0.98 (0.66-1.25) mg/dL Est GFR (CKD-EPI)AfAm >90 (>60 ml/min/1.73 sqM) Est GFR (CKD-EPI)NonAf 79 (>60 ml/min/1.73 sqM) Glucose 81 (74-99) mg/dL Plasma Lactic Acid Kal (0.7-2.0) mmol/L Calcium 8.0 L (8.4-10.2) mg/dL Total Bilirubin 0.5 (0.2-1.3) mg/dL AST 54 (17-59) U/L ALT 26 (4-49) U/L Alkaline Phosphatase 62 (38-126) U/L C-Reactive Protein <5.0 (<10.0) mg/L Total Protein 6.5 (6.3-8.2) g/dL Albumin 2.9 L (3.5-5.0) g/dL Amylase 137 H (30-110) U/L Lipase 78 (23-300) U/L Urine Color Light Yellow Urine Appearance Clear (Clear) Urine pH 5.0 (5.0-8.0) Ur Specific [place] 1.009 (1.001-1.035) Urine Protein Negative (Negative) Urine Glucose (UA) Negative (Negative) Urine Ketones Negative (Negative) Urine Blood Negative (Negative) Urine Nitrite Negative (Negative) Urine Bilirubin Negative (Negative) Urine Urobilinogen <2.0 (<2.0) mg/dL Ur Leukocyte Esterase Negative (Negative) 02/27/20 Range/Units 01:23 WBC (3.8-10.6) k/uL RBC (4.30-5.90) m/uL Hgb (13.0-17.5) gm/dL Hct (39.0-53.0) % MCV (80.0-100.0) fL MCH (25.0-35.0) pg MCHC (31.0-37.0) g/dL RDW (11.5-15.5) % Plt Count (150-450) k/uL MPV Neutrophils % % Lymphocytes % % Monocytes % % Eosinophils % % Basophils % % Neutrophils # (1.3-7.7) k/uL Lymphocytes # (1.0-4.8) k/uL Monocytes # (0-1.0) k/uL Eosinophils # (0-0.7) k/uL Basophils # (0-0.2) k/uL Hypochromasia Sodium (137-145) mmol/L Potassium (3.5-5.1) mmol/L Chloride (98-107) mmol/L Carbon Dioxide (22-30) mmol/L Anion Gap mmol/L BUN (9-20) mg/dL Creatinine (0.66-1.25) mg/dL Est GFR (CKD-EPI)AfAm (>60 ml/min/1.73 sqM) Est GFR (CKD-EPI)NonAf (>60 ml/min/1.73 sqM) Glucose (74-99) mg/dL Plasma Lactic Acid Kal 1.3 (0.7-2.0) mmol/L Calcium (8.4-10.2) mg/dL Total Bilirubin (0.2-1.3) mg/dL AST (17-59) U/L ALT (4-49) U/L Alkaline Phosphatase (38-126) U/L C-Reactive Protein (<10.0) mg/L Total Protein (6.3-8.2) g/dL Albumin (3.5-5.0) g/dL Amylase (30-110) U/L Lipase (23-300) U/L Urine Color Urine Appearance (Clear) Urine pH (5.0-8.0) Ur Specific [place] (1.001-1.035) Urine Protein (Negative) Urine Glucose (UA) (Negative) Urine Ketones (Negative) Urine Blood (Negative) Urine Nitrite (Negative) Urine Bilirubin (Negative) Urine Urobilinogen (<2.0) mg/dL Ur Leukocyte Esterase (Negative) Disposition Clinical Impression: Abdominal pain, Ileus Disposition: ADMITTED IP TO THIS [facility] Condition: Serious
[2020-02-27] MEDS ORDERED: ASPIRIN-ACET-CAFF 250-250-65MG 1 EACH TAB PO PRN (10:18)
--- NOTE | 2020-02-27 10:18 | P.HPIM ---
History of Present Illness H&P Date: 02/27/20 Chief Complaint: Abdominal pain with bloating. This is a history and physical on a 69-year-old white male with known history of rheumatoid arthritis and gout who has a history of Crohn's colitis. The patient has been struggling recently and was admitted for colitis flareup in the past. Unfortunately, his pain has now recurred and evaluation in the emergency room did show significant ileus. He did have a bowel live about midnight last night but has had no flatus. No significant chest pain. He is now admitted for exacerbation of Crohn's colitis. Otherwise, he has an underlying history of opiate dependence. Review of Systems Constitutional: Denies chills, Denies fever Eyes: denies blurred vision, denies pain Ears, nose, mouth and throat: Denies headache, Denies sore throat Cardiovascular: Denies chest pain, Denies shortness of breath Respiratory: Denies cough Gastrointestinal: Reports abdominal pain Musculoskeletal: Denies myalgias Past Medical History Past Medical History: GERD/Reflux, Hypertension, Rheumatoid Arthritis (RA), Skin Disorder, Supraventricular Tachycardia (SVT) Additional Past Medical History / Comment(s): hx CROHN'S (takes tresa), IBS, chronic diarrhea, migraines-, hx ulcers, anemia, gout, kidney stones, psoriasis, bilateral tinnitis., pinched sciatic nerve History of Any Multi-Drug Resistant Organisms: C-DIFF Date of last positivie culture/infection: stool MDRO Source:: 2016 Past Surgical History: Bowel Resection, Cardiac Ablation, Cholecystectomy, Heart Catheterization, Hernia Repair, Orthopedic Surgery, Tonsillectomy Additional Past Surgical History / Comment(s): partial gastrectomy (ulcers), bowel resections, fecal transplant, bilateral knee arthroscopic surgery, EGD/colonoscopies, R inguinal hernia repair, bilat cataract removal. Past Anesthesia/Blood Transfusion Reactions: Blood Transfusion Reaction, Motion Sickness Additional Past Anesthesia/Blood Transfusion Reaction / Comment(s): BLOOD TRANSFUSION- BROKE OUT IN HIVES age 21 Past Psychological History: No Psychological Hx Reported Additional Psychological History / Comment(s): denies Smoking Status: Never smoker Past Alcohol Use History: Occasional Past Drug Use History: None Reported Additional Drug Use History / Comment(s): Hx of opiate dependency-on suboxone. - Past Family History Mother Family Medical History: Pulmonary Embolus Additional Family Medical History / Comment(s): AGE 73-OK, STROKE DURING CARATID PROCEDURE Medications and Allergies Home Medications Medication Instructions Recorded Confirmed Type RX: Orphenadrine Citrate 100 mg PO BID 12/08/17 02/27/20 History [Orphenadrine Citrate ER] RX: Adalimumab [Humira Pen] 40 mg SQ Q14D 04/25/18 02/27/20 History RX: Febuxostat [Uloric] 80 mg PO DAILY 05/05/18 02/27/20 History RX: Buprenorphine HCl/Naloxone HCl 1 film SL HS 12/12/18 02/27/20 History [Suboxone 2 mg-0.5 mg Sl Film] RX: Omeprazole 20 mg PO BID 12/12/18 02/27/20 History RX: amLODIPine [Norvasc] 5 mg PO DAILY 06/10/19 02/27/20 History RX: [id number]-[id number]-Wbwu [id number] 2 tab PO DAILY PRN 01/12/20 02/27/20 History [Excedrin] Amoxic-Pot Clav 875-125Mg 1 tab PO Q12HR 02/27/20 02/27/20 History [Augmentin 875-125] RX: Multivitamins, Thera 1 tab PO DAILY 02/27/20 02/27/20 History [Multivitamin (formulary)] methocarbamoL [Robaxin] 750 mg PO TID 02/27/20 02/27/20 History Allergies Allergy/AdvReac Type Severity Reaction Status Date / Time Iodinated Contrast Media Allergy Anaphylaxis Verified 02/27/20 09:15 [Iodinated Contrast Media - IV Dye] Physical Exam Vitals: Vital Signs Temp Pulse Pulse Resp BP BP Pulse Ox 02/27/20 09:00 97.5 F L 75 18 175/88 98 02/27/20 08:51 98.2 F 87 16 112/74 98 02/27/20 06:00 98 F 67 18 157/87 98 02/27/20 03:00 97.1 F L 86 18 196/93 97 02/27/20 01:05 97.9 F 78 20 153/91 99 Intake and Output 02/26/20 02/27/20 02/27/20 22:59 06:59 14:59 Output Total 750 Balance -750 Output: Urine 750 Other: Weight 74.843 kg 74.843 kg - Constitutional General appearance: no acute distress - EENT Eyes: EOMI - Neck Neck: no lymphadenopathy - Respiratory Respiratory: bilateral: CTA - Cardiovascular Rhythm: regular Heart sounds: normal: S1, S2 Abnormal Heart Sounds: no S3 Gallop - Gastrointestinal General gastrointestinal: absent bowel sounds, distended, soft, tenderness - Integumentary Integumentary: no cellulitis - Neurologic Neurologic: CNII-XII intact - Psychiatric Psychiatric: A&O x's 3, appropriate affect, intact judgment & insight Results CBC & Chem 7: 02/27/20 01:23 02/27/20 01:23 Labs: Abnormal Lab Results - Last 24 Hours (Table) 02/27/20 02/27/20 Range/Units 01:23 01:23 RBC 3.72 L (4.30-5.90) m/uL Hgb 10.0 L (13.0-17.5) gm/dL Hct 32.1 L (39.0-53.0) % RDW 15.7 H (11.5-15.5) % Chloride 118 H (98-107) mmol/L Carbon Dioxide 13 L (22-30) mmol/L Calcium 8.0 L (8.4-10.2) mg/dL Albumin 2.9 L (3.5-5.0) g/dL Amylase 137 H (30-110) U/L Thrombosis Risk Factor Assmnt - Choose All That Apply Any of the Below Risk Factors Present?: No Each Risk Factor Represents 2 Points: Age 61-74 years Thrombosis Risk Factor Assessment Total Risk Factor Score: 2 Thrombosis Risk Factor Assessment Level: Low Risk Assessment and Plan (1) Ileus Current Visit: Yes Status: Acute Code(s): K56.7 - ILEUS, UNSPECIFIED SNOMED Code(s): 314241381 (2) Abdominal pain Current Visit: No Status: Acute Code(s): R10.9 - UNSPECIFIED ABDOMINAL PAIN SNOMED Code(s): 21324489 (3) Crohn's colitis Current Visit: No Status: Acute Code(s): K50.10 - CROHN'S DISEASE OF LARGE INTESTINE WITHOUT COMPLICATIONS SNOMED Code(s): 96796283 (4) Dehydration Current Visit: No Status: Acute Code(s): E86.0 - DEHYDRATION SNOMED Code(s): 86763077 (5) Opiate dependence Current Visit: No Status: Acute Code(s): F11.20 - OPIOID DEPENDENCE, UNCOMPLICATED SNOMED Code(s): 15403563 (6) Gout Current Visit: No Status: Chronic Code(s): M10.9 - GOUT, UNSPECIFIED SNOMED Code(s): 71700727 (7) Rheumatoid arthritis Current Visit: No Status: Chronic Code(s): M06.9 - RHEUMATOID ARTHRITIS, UNSPECIFIED SNOMED Code(s): 30956980 Plan: We will go ahead and reconcile home medications. Advance diet slowly. Check CBC and CMP in a.m. Consult GI Appropriate steroid treatment as indicated. Time with Patient: Greater than 30
[2020-02-27] MEDS: allopurinoL 100 MG TAB PO SCH (10:56)
[2020-02-27] MEDS: amLODIPine 5 MG TAB PO SCH (10:57)
[2020-02-27] MEDS: CYCLOBENZAPRINE 10 MG TAB PO SCH ×2 (10:57→22:50)
[2020-02-27] MEDS: PANTOPRAZOLE 40 MG TABLET PO SCH (10:57)
[2020-02-27] MEDS ORDERED: methylPREDNISolone SOD SUCCI 125 MG/2 ML VIAL IV SCH (12:00)
[2020-02-27] MEDS ORDERED: ADALIMUMAB SQ SCH (12:00)
--- NOTE | 2020-02-27 12:11 | CT ---
EXAMINATION TYPE: CT abdomen pelvis wo con DATE OF EXAM: 02/27/2020 COMPARISON: 09/08/2019 HISTORY: pain, nausea, vomiting, diarrhea CT DLP: 304.9 mGycm Examination of the solid and hollow viscera is limited given the lack of contrast. FINDINGS: LUNG BASES: No evidence for nodule. No evidence for infiltrate. Basilar linear atelectasis. LIVER/GB: The gallbladder is surgically absent. No space-occupying hepatic lesion. PANCREAS: No pancreatic mass identified. No inflammatory process seen. SPLEEN: No evidence for splenomegaly. No intrasplenic lesions seen. ADRENALS: No adrenal nodules identified. No evidence for thickening. KIDNEYS: No evidence for renal mass. Bilateral nonobstructing nephrolithiasis redemonstrated. Renal c ystic changes identified identified. No hydronephrosis. BOWEL: Prior surgical change noted at the level of the cecum. There is fluid distended large bowel. C orrelate for diarrhea. Small bowel is of normal caliber. No evidence of bowel obstruction. No inflamm atory process. Lymph nodes: No evidence for adenopathy greater than 1 cm. Abdominal aorta: Atheromatous changes seen. No evidence for aneurysm. Genital organs: No significant abnormality. Other: No significant abnormality. IMPRESSION: 1. Fluid distended colon. Correlate for underlying diarrhea. 2. Nonobstructing nephrolithiasis.
[2020-02-27 14:55] VITALS: BMI 21.2
[2020-02-27] MEDS ORDERED: amLODIPine 5 MG TAB PO STA (16:54)
[2020-02-27 18:16] LABS: Glucose,Whole Blood 192 mg/dL (75-99)
[2020-02-27] MEDS: INSULIN ASPART (NovoLOG) 100 UNIT/ML VIAL SQ SCH ×2 (18:17→22:50)
[2020-02-27] MEDS: methylPREDNISolone SOD SUCCI 40 MG/ML 1 ML VIAL IV SCH (18:18)
[2020-02-27] MEDS: methocarbamoL 750 MG TAB PO SCH ×2 (19:48→22:51)
[2020-02-27] MEDS ORDERED: NON FORMULARY DRUG (Buprenorphine Hcl/Naloxone Hcl [Suboxone 2 Mg-0.5 Mg Sl Film] 1 EACH F SL SCH (21:00)
[2020-02-27 21:59] LABS: Glucose,Whole Blood 164 mg/dL (75-99)
[2020-02-28] MEDS: methylPREDNISolone SOD SUCCI 40 MG/ML 1 ML VIAL IV SCH ×4 (00:06→22:58)
[2020-02-28] MEDS: MORPHINE SULFATE 4 MG/ML SYRINGE IV PRN ×3 (00:07→08:14)
[2020-02-28] MEDS: ONDANSETRON 4 MG/2 ML VIAL IVP PRN (02:29)
[2020-02-28 05:22] LABS: HCT 31.2 % (39.0-53.0); HGB 9.5 gm/dL (13.0-17.5); Hypochromasia Moderate; MCH 26.5 pg (25.0-35.0); MCHC 30.4 g/dL (31.0-37.0); MCV 87.2 fL (80.0-100.0); Mean Platelet Volume 6.6; Platelet Count 202 k/uL (150-450); RBC 3.58 m/uL (4.30-5.90); RDW 15.8 % (11.5-15.5); WBC 5.3 k/uL (3.8-10.6)
[2020-02-28 05:36] LABS: ALT 50 U/L (4-49); AST 86 U/L (17-59); African American GFR (CKD) >90 (>60 ml/min/1.73 sqM); Albumin 2.8 g/dL (3.5-5.0); Alkaline Phosphatase 84 U/L (38-126); Anion Gap 6 mmol/L; Blood Urea Nitrogen 7 mg/dL (9-20); Carbon Dioxide 19 mmol/L (22-30); Chloride 112 mmol/L (98-107); Glucose 140 mg/dL (74-99); Non-African American GFR(CKD) >90 (>60 ml/min/1.73 sqM); Potassium 4.2 mmol/L (3.5-5.1); Sodium 137 mmol/L (137-145); Total Bilirubin 0.4 mg/dL (0.2-1.3); Total Protein 6.1 g/dL (6.3-8.2)
[2020-02-28 05:38] LABS: C Reactive Protein <5.0 mg/L (<10.0)
[2020-02-28 06:17] LABS: Erythrocyte Sedimentation Rate 31 mm/hr (0-15)
[2020-02-28 06:26] LABS: Glucose,Whole Blood 132 mg/dL (75-99)
[2020-02-28] MEDS: INSULIN ASPART (NovoLOG) 100 UNIT/ML VIAL SQ SCH ×4 (07:21→20:26)
[2020-02-28] MEDS: SODIUM CHLORIDE 0.9% 1,000 ML IV SCH ×3 (08:07→22:43)
[2020-02-28] MEDS: PANTOPRAZOLE 40 MG TABLET PO SCH (08:08)
[2020-02-28] MEDS: amLODIPine 5 MG TAB PO SCH (08:09)
[2020-02-28] MEDS: allopurinoL 100 MG TAB PO SCH (08:09)
[2020-02-28] MEDS: amLODIPine 10 MG TAB PO SCH (08:10)
[2020-02-28] MEDS: CYCLOBENZAPRINE 10 MG TAB PO SCH ×2 (08:11→20:26)
[2020-02-28] MEDS: MULTIVITAMINS, THERA 1 EACH TAB PO SCH (08:13)
[2020-02-28] MEDS: methocarbamoL 750 MG TAB PO SCH ×3 (08:13→22:42)
--- NOTE | 2020-02-28 08:50 | P.PN ---
Subjective Progress Note Date: 02/28/20 Principal diagnosis: Ileus with Crohn's colitis. This is a To doing progress note on a 69-year-old white male with underlying history of Crohn's colitis flare. He is admitted for ileus. He has been advanced to clear liquids and seems to be tolerating but appetite is poor. Sig nificant abdominal pain and bloating is noted. He had flare yesterday where significant pain and nausea was noted. General surgery is now consult it just in case he needs something more aggressive. He has had long-term steroids this past month due to recurrent flare. Objective - Vital Signs Vital signs: Vital Signs Temp 97.4 F L 02/28/20 02:43 Pulse 83 02/28/20 02:43 Resp 16 02/28/20 02:43 BP 185/90 02/28/20 02:43 Pulse Ox 98 02/28/20 02:43 Intake & Output 02/27/20 02/28/20 02/28/20 18:59 06:59 18:59 Intake Total 240 Output Total 400 3 Balance -160 -3 Weight 74.843 kg Intake: Oral 240 Output: Stool 400 3 Other: Voiding Method Toilet Toilet # Voids 7 2 # Bowel Movements 3 1 - Constitutional General appearance: Present: average body habitus - EENT Eyes: Absent: abnormal pupil - Respiratory Respiratory: bilateral: CTA - Cardiovascular Rhythm: regular Heart sounds: normal: S1, S2 Abnormal Heart Sounds: Absent: S3 Gallop - Gastrointestinal General gastrointestinal: Present: soft. Absent: tenderness - Integumentary Integumentary: Absent: cellulitis - Musculoskeletal Musculoskeletal: Present: gait normal - Psychiatric Psychiatric: Present: A&O x's 3, appropriate affect - Labs CBC & Chem 7: 02/28/20 04:52 02/28/20 04:52 Labs: Abnormal Lab Results - Last 24 Hours (Table) 02/27/20 02/27/20 02/28/20 Range/Units 18:14 21:56 04:52 RBC 3.58 L (4.30-5.90) m/uL Hgb 9.5 L (13.0-17.5) gm/dL Hct 31.2 L (39.0-53.0) % MCHC 30.4 L (31.0-37.0) g/dL RDW 15.8 H (11.5-15.5) % ESR 31 H (0-15) mm/hr Chloride (98-107) mmol/L Carbon Dioxide (22-30) mmol/L BUN (9-20) mg/dL Glucose (74-99) mg/dL POC Glucose (mg/dL) 192 H 164 H (75-99) mg/dL Calcium (8.4-10.2) mg/dL AST (17-59) U/L ALT (4-49) U/L Total Protein (6.3-8.2) g/dL Albumin (3.5-5.0) g/dL 02/28/20 02/28/20 Range/Units 04:52 06:25 RBC (4.30-5.90) m/uL Hgb (13.0-17.5) gm/dL Hct (39.0-53.0) % MCHC (31.0-37.0) g/dL RDW (11.5-15.5) % ESR (0-15) mm/hr Chloride 112 H (98-107) mmol/L Carbon Dioxide 19 L (22-30) mmol/L BUN 7 L (9-20) mg/dL Glucose 140 H (74-99) mg/dL POC Glucose (mg/dL) 132 H (75-99) mg/dL Calcium 8.0 L (8.4-10.2) mg/dL AST 86 H (17-59) U/L ALT 50 H (4-49) U/L Total Protein 6.1 L (6.3-8.2) g/dL Albumin 2.8 L (3.5-5.0) g/dL Assessment and Plan (1) Ileus Current Visit: Yes Status: Acute Code(s): K56.7 - ILEUS, UNSPECIFIED SNOMED Code(s): 432283458 (2) Abdominal pain Current Visit: No Status: Acute Code(s): R10.9 - UNSPECIFIED ABDOMINAL PAIN SNOMED Code(s): 67015159 (3) Crohn's colitis Current Visit: No Status: Acute Code(s): K50.10 - CROHN'S DISEASE OF LARGE INTESTINE WITHOUT COMPLICATIONS SNOMED Code(s): 32869512 (4) Dehydration Current Visit: No Status: Acute Code(s): E86.0 - DEHYDRATION SNOMED C ode(s): 58361367 (5) Opiate dependence Current Visit: No Status: Acute Code(s): F11.20 - OPIOID DEPENDENCE, UNCOMPLICATED SNOMED Code(s): 52925429 (6) Gout Current Visit: No Status: Chronic Code(s): M10.9 - GOUT, UNSPECIFIED SNOMED Code(s): 99798010 (7) Rheumatoid arthritis Current Visit: No Status: Chronic Code(s): M06.9 - RHEUMATOID ARTHRITIS, UNSPECIFIED SNOMED Code(s): 02070884 Plan: We will go ahead and reconcile home medications. Advance diet slowly. Check CBC and CMP in a.m. Consult GI/With surgery. Appropriate steroid treatment as indicated.
[2020-02-28 10:56] LABS: Basophils # (M) 0.05 k/uL (0-0.2); Lymphocytes # (M) 1.27 k/uL (1.0-4.8); Monocytes # (M) 0.27 k/uL (0-1.0); Neutrophils # (M) 3.71 k/uL (1.3-7.7); Neutrophils % (M) 70 %; Nucleated Red Blood Cells 0 /100 WBC (0-0); Total Cells Counted 100
[2020-02-28 11:53] LABS: Glucose,Whole Blood 152 mg/dL (75-99)
--- NOTE | 2020-02-28 12:19 | P.CONS ---
History of Present Illness - Reason for Consult Consult date: 02/27/20 Crohn's disease Requesting physician: Minh Saldaña - Chief Complaint Abdominal pain, nausea and vomiting - History of Present Illness 69-year-old male with medical history significant for GERD, hypertension, limited arthritis, nephrolithiasis, psoriasis, prior partial gastrectomy and Crohn's disease currently managed with Humira and previously requiring digital intervention at [facility] who presented to the hospital due to abdominal pain, nausea and vomiting. The patient has recently undergone colonoscopy on 01/21/2016 and at that time the patient had a normal- appearing colon from rectum to transverse colon with no active colitis neoplasia noted and a patent ileocolic anastomosis in the transverse colon. He reports diarrhea and vomiting over the past 3-4 days with associated dizziness and sore throat. He has lost some weight recently. Computed tomography scan of the abdomen showed a fluid-filled distended colon. Laboratory evaluation significant for a WBC 7.7, hemoglobin 10, platelet count 235,000, ESR pending and CRP less than 5 with a total bilirubin 0.5, alkaline phosphatase 62, AST 54 and ALT 26. Review of Systems REVIEW OF SYSTEMS: CONSTITUTIONAL: Denies any fevers, chills, weight change or fatigue. CARDIOVASCULAR: Denies any chest pain, palpitations high or low blood pressures RESPIRATORY: Denies any shortness of breath, hemoptysis or cough. GENITOURINARY: No dysuria or hematuria. MUSCULOSKELETAL: No weakness reported. SKIN: Denies any new rashes or lesions, jaundice or pallor. PSYCHIATRIC: Denies any depression or anxiety. NEUROLOGY: Denies headache, denies any new focal deficits. EARS/NOSE/THROAT: No recent hearing change, congestion, nasal discharge or sore throat. EYES: No pain in eyes, discharge or change in vision. GASTROINTESTINAL: As per HPI. Past Medical History Past Medical History: GERD/Reflux, Hypertension, Rheumatoid Arthritis (RA), Skin Disorder, Supraventricular Tachycardia (SVT) Additional Past Medical History / Comment(s): hx CROHN'S (takes tresa), IBS, c hronic diarrhea, migraines-, hx ulcers, anemia, gout, kidney stones, psoriasis, bilateral tinnitis., pinched sciatic nerve History of Any Multi-Drug Resistant Organisms: C-DIFF Year Discovered:: stool MDRO Source:: 2016 Past Surgical History: Bowel Resection, Cardiac Ablation, Cholecystectomy, Heart Catheterization, Hernia Repair, Orthopedic Surgery, Tonsillectomy Additional Past Surgical History / Comment(s): partial gastrectomy (ulcers), bowel resections, fecal transplant, bilateral knee arthroscopic surgery, EGD/colonoscopies, R inguinal hernia repair, bilat cataract removal. Past Anesthesia/Blood Transfusion Reactions: Blood Transfusion Reaction, Motion Sickness Additional Past Anesthesia/Blood Transfusion Reaction / Comm: BLOOD TRANSFUSION- BROKE OUT IN HIVES age 21 Past Psychological History: No Psychological Hx Reported Additional Psychological History / Comment(s): denies Smoking Status: Never smoker Past Alcohol Use History: Occasional Past Drug Use History: None Reported Additional Drug Use History / Comment(s): Hx of opiate dependency-on suboxone. - Past Family History Mother Family Medical History: Pulmonary Embolus Additional Family Medical History / Comment(s): AGE 73-MS, STROKE DURING CARATID PROCEDURE Medications and Allergies Home Medications Medication Instructions Recorded Confirmed Type Orphenadrine Citrate [Orphenadrine 100 mg PO BID 12/08/17 02/27/20 History Citrate ER] Adalimumab [Humira Pen] 40 mg SQ Q14D 04/25/18 02/27/20 History Febuxostat [Uloric] 80 mg PO DAILY 05/05/18 02/27/20 History Buprenorphine HCl/Naloxone HCl 1 film SL HS 12/12/18 02/27/20 History [Suboxone 2 mg-0.5 mg Sl Film] Omeprazole 20 mg PO BID 12/12/18 02/27/20 History amLODIPine [Norvasc] 5 mg PO DAILY 06/10/19 02/27/20 History [id number] 2 tab PO DAILY PRN 01/12/20 02/27/20 History [Excedrin] Amoxic-Pot Clav 875-125Mg 1 tab PO Q12HR 02/27/20 02/27/20 History [Augmentin 875-125] Multivitamins, Thera [Multivitamin 1 tab PO DAILY 02/27/20 02/27/20 History (formulary)] methocarbamoL [Robaxin] 750 mg PO TID 02/27/20 02/27/20 History Allergies Allergy/AdvReac Type Severity Reaction Status Date / Time Iodinated Contrast Media Allergy Anaphylaxis Verified 02/27/20 09:15 [Iodinated Contrast Media - IV Dye] Physical Exam Vitals: Vital Signs Temp Pulse Pulse Resp BP BP Pulse Ox 02/27/20 09:30 75 18 02/27/20 09:00 97.5 F L 75 18 175/88 98 02/27/20 08:51 98.2 F 87 16 112/74 98 02/27/20 06:00 98 F 67 18 157/87 98 02/27/20 03:00 97.1 F L 86 18 196/93 97 02/27/20 01:05 97.9 F 78 20 153/91 99 Intake and Output 02/26/20 02/27/20 02/27/20 22:59 06:59 14:59 Intake Total 240 Output Total 750 200 Balance -750 40 Intake: Oral 240 Output: Urine 750 Stool 200 Other: Voiding Method Toilet Weight 74.843 kg 74.843 kg On physical examination, patient appears comfortable in no apparent distress. HEAD: Normocephalic, atraumatic. EYES: No scleral icterus. No conjunctival injection. MOUTH: No lesions, tongue midline. NECK: Trachea midline, no gross abnormalities. CHEST: Clear to auscultation with no wheezing or rhonchi appreciated. HEART: Regular rate and rhythm. ABDOMEN: Soft, mildly tender to palpation. Bowel sounds are positive. No organomegaly. No guarding or rigidity. EXTREMITIES: No pedal edema. SKIN: No rashes, no jaundice. NEUROLOGIC: Alert and oriented x3. No focal deficits. Results CBC & Chem 7: 02/28/20 04:52 02/28/20 04:52 Labs: Abnormal Lab Results - Last 24 Hours (Table) 02/27/20 02/27/20 Range/Units 01:23 01:23 RBC 3.72 L (4.30-5.90) m/uL Hgb 10.0 L (13.0-17.5) gm/dL Hct 32.1 L (39.0-53.0) % RDW 15.7 H (11.5-15.5) % Chloride 118 H (98-107) mmol/L Carbon Dioxide 13 L (22-30) mmol/L Calcium 8.0 L (8.4-10.2) mg/dL Albumin 2.9 L (3.5-5.0) g/dL Amylase 137 H (30-110) U/L CT scan - abdomen: report reviewed (Computed tomography scan of the abdomen with fluid distended colon and nephrolithiasis) Assessment and Plan (1) Crohn's colitis Narrative/Plan: 69-year-old male with multiple medical comorbidities including Crohn's disease previously requiring right hemicolectomy who presented to the hospital with complaints of 34 days of sore throat, dizziness and diarrhea and vomiting. Patient currently maintained on biologic therapy with Humira with recent c olonoscopy on 02/01/2020 significant for a normal-appearing colon from rectum to transverse colon in the anastomotic site with a patent ileocolic anastomotic site. Unclear etiology, may be related to gastroenteritis, x-ray of the abdomen showing possible ileus with computed tomography scan of the abdomen showing a fluid-filled colon, active disease less likely in the setting of recent colonoscopy in January with normal-appearing tissue, also be related to adhesions in the postoperative setting or other etiology. Current Visit: No Status: Acute Code(s): K50.10 - CROHN'S DISEASE OF LARGE INTESTINE WITHOUT COMPLICATIONS SNOMED Code(s): 36854401 (2) Ileus Current Visit: Yes Status: Acute Code(s): K56.7 - ILEUS, UNSPECIFIED SNOMED Code(s): 539973809 (3) Abdominal pain Current Visit: No Status: Acute Code(s): R10.9 - UNSPECIFIED ABDOMINAL PAIN SNOMED Code(s): 60865130 Plan: Supportive care Okay for liquids Ambulation encouraged Cold biopsy therapy for now Okay for Solu-Medrol therapy Surgical service asked to evaluate the patient No plans for endoscopy at this time Patient will need to follow-up in the GI clinic after discharge Thank you for allowing us to participate in the care of the patient
[2020-02-28] MEDS: NON FORMULARY DRUG (Buprenorphine Hcl/Naloxone Hcl [Suboxone 2 Mg-0.5 Mg Sl Film] 1 EACH F SUBLINGUAL SCH (14:23)
--- NOTE | 2020-02-28 14:45 | P.GSCN ---
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 Patient is also had 2 bowel resections for his Crohn's disease. History of cholecystectomy also partial g astrectomy for stomach ulcers. His last bowel movement resection was about 5 years ago at [facility]. Patient presents to the hospital complaint abdominal pain nausea and vomiting with diarrhea. He reports symptoms have been occurring for the last 3 days. He reports his pain about 8 out of 10. His stomach is bloated. He reports pain in the upper abdomen that radiates down into the lower abdomen. Patient's last colonoscopy was on 02/01/2020 which had a normal-appearing colon from rectum to transverse colon with no colitis and a patent ileocolic anastomosis in the transverse colon. Computed tomography scan of the abdomen and pelvis shows fluid distended colon. Correlate for underlying diarrhea. Nonobstructing nephrolithiasis. Patient was started on IV steroids per GI service for possible Crohn's exacerbation. Noted that GI service was questioning if patient also had underlying gastroenteritis or adhesions contributing to his abdominal pain. Patient denies any fever, chills or sweats. Denies any blood in his stools. He did have mild sore throat. He has been checked for Covid. PAST MEDICAL HISTORY: See list. PAST SURGICAL HISTORY: See list. MEDICATIONS: See list. ALLERGIES: See list. SOCIAL HISTORY: No illicit drug use. REVIEW OF SYSTEMS: CONSTITUTIONAL: Denies fever or chills. HEENT: Denies blurred vision, vision changes, or eye pain. Denies hemoptysis CARDIOVASCULAR: Denies chest pain or pressure. RESPIRATORY: No shortness of breath. GASTROINTESTINAL: See HPI for pertinent findings HEMATOLOGIC: Denies bleeding disorders. GENITOURINARY: Denies any blood in urine or increased urinary frequency. SKIN: Denies pruitis. Denies rash. PHYSICAL EXAM: VITAL SIGNS: Reviewed GENERAL: Well-developed in no acute distress. HEENT: No sclera icterus. Extraocular movements grossly intact. Moist buccal mucosa. Head is atraumatic, normocephalic. No nasal drainage. ABDOMEN: Soft. Distended. Diffuse tenderness NEUROLOGIC: Alert and oriented. Cranial nerves II through XII grossly intact. LABORATORY DATA: WBC 5.3 hemoglobin 9.5 AST 86 ALT 50 lipase 78 C. diff negative Covid pending IMAGING: Computed tomography scan of the abdomen and pelvis shows fluid distended colon. Correlate for underlying diarrhea. Nonobstructing nephrolithiasis. ASSESSMENT: 1. Abdominal pain with nausea, vomiting and diarrhea. Concerns for possible Cr ohn's exacerbation, gastroenteritis versus abdominal adhesions attributed to patient's symptoms. 2. Possible Crohn's colitis exacerbation 3. Prior history of bowel resection with last surgery 5 years ago at [facility] PLAN: -Continue IV steroids per GI service -Continue IV fluids -We will continue conservative management for now. Thank you for this consultation. Physician Metal Drill Press Operator note has been reviewed by physician. Signing provider agrees with the documented findings, assessment, and plan of care. Past Medical History Past Medical History: GERD/Reflux, Hypertension, Rheumatoid Arthritis (RA), Skin Disorder, Supraventricular Tachycardia (SVT) Additional Past Medical History / Comment(s): hx CROHN'S (takes tresa), IBS, chronic diarrhea, migraines-, hx ulcers, anemia, gout, kidney stones, psoriasis, bilateral tinnitis., pinched sciatic nerve History of Any Multi-Drug Resistant Organisms: C-DIFF Year Discovered:: stool MDRO Source:: 2016 Past Surgical History: Bowel Resection, Cardiac Ablation, Cholecystectomy, Heart Catheterization, Hernia Repair, Orthopedic Surgery, Tonsillectomy Additional Past Surgical History / Comment(s): partial gastrectomy (ulcers), bowel resections, fecal transplant, bilateral knee arthroscopic surgery, EGD/colonoscopies, R inguinal hernia repair, bilat cataract removal. Past Anesthesia/Blood Transfusion Reactions: Blood Transfusion Reaction, Motion Sickness Additional Past Anesthesia/Blood Transfusion Reaction / Comm: BLOOD TRANSFUSION- BROKE OUT IN [place]ES age 21 Past Psychological History: No Psychological Hx Reported Additional Psychological History / Comment(s): denies Smoking Status: Never smoker Past Alcohol Use History: Occasional Past Drug Use History: None Reported Additional Drug Use History / Comment(s): Hx of opiate dependency-on suboxone. - Past Family History Mother Family Medical History: Pulmonary Embolus Additional Family Medical History / Comment(s): AGE 73-DE, STROKE DURING CARATID PROCEDURE Medications and Allergies Home Medications Medication Instructions Recorded Confirmed Type Orphenadrine Citrate [Orphenadrine 100 mg PO BID 12/08/17 02/27/20 History Citrate ER] Adalimumab [Humira Pen] 40 mg SQ Q14D 04/25/18 02/27/20 History Febuxostat [Uloric] 80 mg PO DAILY 05/05/18 02/27/20 History Buprenorphine HCl/Naloxone HCl 1 film SL HS 12/12/18 02/27/20 History [Suboxone 2 mg-0.5 mg Sl Film] Omeprazole 20 mg PO BID 12/12/18 02/27/20 History amLODIPine [Norvasc] 5 mg PO DAILY 06/10/19 02/27/20 History Bjwuxfu-Mcnx-Hzda [id number] 2 tab PO DAILY PRN 01/12/20 02/27/20 History [Excedrin] Amoxic-Pot Clav 875-125Mg 1 tab PO Q12HR 02/27/20 02/27/20 History [Augmentin 875-125] Multivitamins, Thera [Multivitamin 1 tab PO DAILY 02/27/20 02/27/20 History (formulary)] methocarbamoL [Robaxin] 750 mg PO TID 02/27/20 02/27/20 History Allergies Allergy/AdvReac Type Severity Reaction Status Date / Time Iodinated Contrast Media Allergy Anaphylaxis Verified 02/27/20 09:15 [Iodinated Contrast Media - IV Dye] Surgical - Exam Vital Signs Temp Pulse Resp BP Pulse Ox 97.9 F 78 20 153/91 99 02/27/20 01:05 02/27/20 01:05 02/27/20 01:05 02/27/20 01:05 02/27/20 01:05 Results - Labs 02/28/20 04:52 02/28/20 04:52 Abnormal Lab Results - Last 24 Hours (Table) 02/27/20 02/27/20 02/28/20 Range/Units 18:14 21:56 04:52 RBC 3.58 L (4.30-5.90) m/uL Hgb 9.5 L (13.0-17.5) gm/dL Hct 31.2 L (39.0-53.0) % MCHC 30.4 L (31.0-37.0) g/dL RDW 15.8 H (11.5-15.5) % ESR 31 H (0-15) mm/hr Chloride (98-107) mmol/L Carbon Dioxide (22-30) mmol/L BUN (9-20) mg/dL Glucose (74-99) mg/dL POC Glucose (mg/dL) 192 H 164 H (75-99) mg/dL Calcium (8.4-10.2) mg/dL AST (17-59) U/L ALT (4-49) U/L Total Protein (6.3-8.2) g/dL Albumin (3.5-5.0) g/dL 02/28/20 02/28/20 02/28/20 Range/Units 04:52 06:25 11:52 RBC (4.30-5.90) m/uL Hgb (13.0-17.5) gm/dL Hct (39.0-53.0) % MCHC (31.0-37.0) g/dL RDW (11.5-15.5) % ESR (0-15) mm/hr Chloride 112 H (98-107) mmol/L Carbon Dioxide 19 L (22-30) mmol/L BUN 7 L (9-20) mg/dL Glucose 140 H (74-99) mg/dL POC Glucose (mg/dL) 132 H 152 H (75-99) mg/dL Calcium 8.0 L (8.4-10.2) mg/dL AST 86 H (17-59) U/L ALT 50 H (4-49) U/L Total Protein 6.1 L (6.3-8.2) g/dL Albumin 2.8 L (3.5-5.0) g/dL Diabetes panel 02/28/20 Range/Units 04:52 Sodium 137 (137-145) mmol/L Potassium 4.2 (3.5-5.1) mmol/L Chloride 112 H (98-107) mmol/L Carbon Dioxide 19 L (22-30) mmol/L BUN 7 L (9-20) mg/dL Creatinine 0.81 (0.66-1.25) mg/dL Glucose 140 H (74-99) mg/dL Calcium 8.0 L (8.4-10.2) mg/dL AST 86 H (17-59) U/L ALT 50 H (4-49) U/L Alkaline Phosphatase 84 (38-126) U/L Total Protein 6.1 L (6.3-8.2) g/dL Albumin 2.8 L (3.5-5.0) g/dL Calcium panel 02/28/20 Range/Units 04:52 Calcium 8.0 L (8.4-10.2) mg/dL Albumin 2.8 L (3.5-5.0) g/dL Pituitary panel 02/28/20 Range/Units 04:52 Sodium 137 (137-145) mmol/L Potassium 4.2 (3.5-5.1) mmol/L Chloride 112 H (98-107) mmol/L Carbon Dioxide 19 L (22-30) mmol/L BUN 7 L (9-20) mg/dL Creatinine 0.81 (0.66-1.25) mg/dL Glucose 140 H (74-99) mg/dL Calcium 8.0 L (8.4-10.2) mg/dL Adrenal panel 02/28/20 Range/Units 04:52 Sodium 137 (137-145) mmol/L Potassium 4.2 (3.5-5.1) mmol/L Chloride 112 H (98-107) mmol/L Carbon Dioxide 19 L (22-30) mmol/L BUN 7 L (9-20) mg/dL Creatinine 0.81 (0.66-1.25) mg/dL Glucose 140 H (74-99) mg/dL Calcium 8.0 L (8.4-10.2) mg/dL Total Bilirubin 0.4 (0.2-1.3) mg/dL AST 86 H (17-59) U/L ALT 50 H (4-49) U/L Alkaline Phosphatase 84 (38-126) U/L Total Protein 6.1 L (6.3-8.2) g/dL Albumin 2.8 L (3.5-5.0) g/dL
[2020-02-28 16:50] LABS: Glucose,Whole Blood 116 mg/dL (75-99)
[2020-02-28 20:02] LABS: Glucose,Whole Blood 182 mg/dL (75-99)
--- NOTE | 2020-02-29 06:01 | P.PN ---
Subjective Progress Note Date: 02/28/20 Principal diagnosis: Crohns disease, abdominal pain Lying in bed, he has tolerated liquids. No further diarrhea or vomiting but he does feel distended. Objective - Vital Signs Vital signs: Vital Signs Temp 97.7 F 02/28/20 08:08 Pulse 70 02/28/20 08:08 Resp 16 02/28/20 08:08 BP 176/83 02/28/20 08:08 Pulse Ox 98 02/28/20 08:08 Intake & Output 02/27/20 02/28/20 02/28/20 18:59 06:59 18:59 Intake Total 240 Output Total 400 3 Balance -160 -3 Weight 74.843 kg Intake: Oral 240 Output: Stool 400 3 Other: Voiding Method Toilet Toilet # Voids 7 2 1 # Bowel Movements 3 1 - Exam On physical examination, patient appears comfortable in no apparent distress. HEAD: Normocephalic, atraumatic. EYES: No scleral icterus. No conjunctival injection. MOUTH: No lesions, tongue midline. NECK: Trachea midline, no gross abnormalities. ABDOMEN: Soft, mildly tender. Bowel sounds are positive. No organomegaly. No guarding or rigidity. EXTREMITIES: No pedal edema. SKIN: No rashes, no jaundice. NEUROLOGIC: Alert and oriented x3. No focal deficits. - Labs CBC & Chem 7: 02/28/20 04:52 02/28/20 04:52 Labs: Abnormal Lab Results - Last 24 Hours (Table) 02/27/20 02/27/20 02/28/20 Range/Units 18:14 21:56 04:52 RBC 3.58 L (4.30-5.90) m/uL Hgb 9.5 L (13.0-17.5) gm/dL Hct 31.2 L (39.0-53.0) % MCHC 30.4 L (31.0-37.0) g/dL RDW 15.8 H (11.5-15.5) % ESR 31 H (0-15) mm/hr Chloride (98-107) mmol/L Carbon Dioxide (22-30) mmol/L BUN (9-20) mg/dL Glucose (74-99) mg/dL POC Glucose (mg/dL) 192 H 164 H (75-99) mg/dL Calcium (8.4-10.2) mg/dL AST (17-59) U/L ALT (4-49) U/L Total Protein (6.3-8.2) g/dL Albumin (3.5-5.0) g/dL 02/28/20 02/28/20 02/28/20 Range/Units 04:52 06:25 11:52 RBC (4.30-5.90) m/uL Hgb (13.0-17.5) gm/dL Hct (39.0-53.0) % MCHC (31.0-37.0) g/dL RDW (11.5-15.5) % ESR (0-15) mm/hr Chloride 112 H (98-107) mmol/L Carbon Dioxide 19 L (22-30) mmol/L BUN 7 L (9-20) mg/dL Glucose 140 H (74-99) mg/dL POC Glucose (mg/dL) 132 H 152 H (75-99) mg/dL Calcium 8.0 L (8.4-10.2) mg/dL AST 86 H (17-59) U/L ALT 50 H (4-49) U/L Total Protein 6.1 L (6.3-8.2) g/dL Albumin 2.8 L (3.5-5.0) g/dL Assessment and Plan (1) Crohn's colitis Narrative/Plan: 69-year-old male with multiple medical comorbidities including Crohn's disease previously requiring right hemicolectomy who presented to the hospital with complaints of 34 days of sore throat, dizziness and diarrhea and vomiting. Patient currently maintained on biologic therapy with Humira with recent colonoscopy on 02/01/2020 significant for a normal-appearing colon from rectum to transverse colon in the anastomotic site with a patent ileocolic anastomotic site. Unclear etiology, may be related to gastroenteritis, x-ray of the abdomen showing possible ileus with computed tomography scan of the abdomen showing a fluid-filled colon, active disease less likely in the setting of recent colonoscopy in January with normal-appearing tissue, also be related to adhesions given surgical history or other etiology. Current Visit: No Status: Acute Code(s): K50.10 - CROHN'S DISEASE OF LARGE INTESTINE WITHOUT COMPLICATIONS SNOMED Code(s): 44051097 (2) Ileus Current Visit: Yes Status: Acute Code(s): K56.7 - ILEUS, UNSPECIFIED SNOMED Code(s): 453449107 (3) Abdominal pain Current Visit: No Status: Acute Code(s): R10.9 - UNSPECIFIED ABDOMINAL PAIN SNOMED Code(s): 98356549 Plan: Supportive care Okay for liquids Ambulation encouraged surgical service following patient Okay for Solu-Medrol therapy No plans for endoscopy at this time Patient will need to follow-up in the GI clinic after discharge Thank you for allowing us to participate in the care of the patient
[2020-02-29 06:41] LABS: Glucose,Whole Blood 129 mg/dL (75-99)
[2020-02-29] MEDS: SODIUM CHLORIDE 0.9% 1,000 ML IV SCH ×2 (06:41→15:02)
[2020-02-29] MEDS: INSULIN ASPART (NovoLOG) 100 UNIT/ML VIAL SQ SCH ×4 (07:23→21:10)
[2020-02-29] MEDS: allopurinoL 100 MG TAB PO SCH (07:43)
[2020-02-29] MEDS: methylPREDNISolone SOD SUCCI 40 MG/ML 1 ML VIAL IV SCH ×2 (07:43→14:59)
[2020-02-29] MEDS: amLODIPine 5 MG TAB PO SCH (07:44)
[2020-02-29] MEDS: amLODIPine 10 MG TAB PO SCH (07:44)
[2020-02-29] MEDS: PANTOPRAZOLE 40 MG TABLET PO SCH (07:44)
[2020-02-29] MEDS: CYCLOBENZAPRINE 10 MG TAB PO SCH ×2 (07:44→21:09)
[2020-02-29] MEDS: methocarbamoL 750 MG TAB PO SCH ×3 (07:45→21:14)
[2020-02-29] MEDS: MULTIVITAMINS, THERA 1 EACH TAB PO SCH (07:45)
[2020-02-29 11:48] LABS: Glucose,Whole Blood 128 mg/dL (75-99)
[2020-02-29 12:21] LABS: HCT 31.9 % (39.0-53.0); HGB 9.8 gm/dL (13.0-17.5); Hypochromasia Moderate; MCH 27.2 pg (25.0-35.0); MCHC 30.9 g/dL (31.0-37.0); MCV 88.2 fL (80.0-100.0); Mean Platelet Volume 8.2; Platelet Count 197 k/uL (150-450); RBC 3.62 m/uL (4.30-5.90); RDW 15.8 % (11.5-15.5); WBC 8.6 k/uL (3.8-10.6)
[2020-02-29 12:32] LABS: ALT 50 U/L (4-49); AST 71 U/L (17-59); African American GFR (CKD) >90 (>60 ml/min/1.73 sqM); Albumin 2.8 g/dL (3.5-5.0); Alkaline Phosphatase 73 U/L (38-126); Anion Gap 3 mmol/L; Blood Urea Nitrogen 5 mg/dL (9-20); Calcium 7.7 mg/dL (8.4-10.2); Carbon Dioxide 24 mmol/L (22-30); Chloride 112 mmol/L (98-107); Glucose 143 mg/dL (74-99); Non-African American GFR(CKD) 89 (>60 ml/min/1.73 sqM); Potassium 3.8 mmol/L (3.5-5.1); Sodium 139 mmol/L (137-145); Total Bilirubin 0.5 mg/dL (0.2-1.3); Total Protein 6.1 g/dL (6.3-8.2)
--- NOTE | 2020-02-29 14:31 | P.PN ---
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 Patient is also had 2 bowel resections for his Crohn's disease. History of cholecystectomy also partial gastrectomy for stomach ulcers. Patient is being followed for his abdominal pain. He reports decrease in abdominal pain and distention. He did have 4 episodes of brown diarrhea. Denies any nausea or vomiting. He's currently on a clear liquid diet and its being advanced to full's by lunch. He is afebrile PHYSICAL EXAM: VITAL SIGNS: Reviewed. GENERAL: Well-developed in no acute distress. HEENT: No sclera icterus. Extraocular movements grossly intact. Moist buccal mucosa. Head is atraumatic, normocephalic. ABDOMEN: Soft. Nondistended. Mild diffuse tenderness NEUROLOGIC: Alert and oriented. Cranial nerves II through XII grossly intact. ASSESSMENT: 1. Abdominal pain with nausea, vomiting and diarrhea. Concerns for possible Crohn's exacerbation, gastroenteritis versus abdominal adhesions contributing to patient's symptoms. 2. Possible Crohn's colitis exacerbation 3. Prior history of bowel resection with last surgery 5 years ago at [facility] PLAN: -Advanced diet to regular diet by lunch -Continue IV steroids per GI service -Continue IV fluids -No surgical intervention planned -Anticipate possible discharge tomorrow if patient tolerating diet Physician Sulfide Head Operator note has been reviewed by physician. Signing provider agrees with the documented findings, assessment, and plan of care. Objective - Vital Signs Vital signs: Vital Signs Temp 97.5 F L 02/29/20 07:45 Pulse 78 02/29/20 07:45 Resp 17 02/29/20 07:45 BP 163/89 02/29/20 07:45 Pulse Ox 97 02/29/20 07:45 Intake & Output 02/28/20 02/29/20 02/29/20 18:59 06:59 18:59 Output Total 753 762 Balance -753 -762 Weight 74.843 kg Output: Urine 750 750 Stool 3 12 Other: Voiding Method Toilet Toilet # Voids 1 1 1 # Bowel Movements 2 - Labs CBC & Chem 7: 02/29/20 11:05 02/29/20 11:05 Labs: Abnormal Lab Results - Last 24 Hours (Table) 02/28/20 02/28/20 02/28/20 Range/Units 11:52 16:48 20:01 POC Glucose (mg/dL) 152 H 116 H 182 H (75-99) mg/dL 02/29/20 Range/Units 06:41 POC Glucose (mg/dL) 129 H (75-99) mg/dL
[2020-02-29] MEDS: NON FORMULARY DRUG (Buprenorphine Hcl/Naloxone Hcl [Suboxone 2 Mg-0.5 Mg Sl Film] 1 EACH F SUBLINGUAL SCH (14:55)
--- NOTE | 2020-02-29 15:58 | PN ---
PROGRESS NOTE DATE OF DICTATION: February 29, 2020 Patient is a 69-year-old pleasant white male admitted to the hospital with abdominal pain and abdominal distention with diarrhea. He was started on IV Solu-Medrol 20 mg q.8 hours. He is feeling much better. Abdominal pain has significantly improved. He still continues to have some coughing and sore throat. He denies any fever, chills, or night sweats. He had about 3 bowel movements this morning. He is on a full liquid diet, tolerating well and the diet was advanced to a regular diet for dinner. PHYSICAL EXAMINATION: He appears comfortable. No apparent distress. VITAL SIGNS: Stable. Blood pressure is 163/89, pulse rate 78, temperature 97.5. HEENT examination unremarkable. Conjunctivae pink. Sclerae anicteric. Oral cavity no lesions. NECK no JVD or lymph node enlargement. Chest was clear to auscultation. Heart is regular rate and rhythm. Abdomen was soft. It was slightly distended but it was not tender. It was tympanic. Extremities: No pedal edema. Skin no rashes. Neuro: He is alert and oriented x3. No focal deficits. LABS: From today: WBC 8.6, hemoglobin 9.8, platelets 197. BUN and creatinine are within normal limits. ALT, AST are 71 and 50 respectively. T-bilirubin and alkaline phosphatase are normal. IMPRESSION: 1. Exacerbation of Crohn's ileitis, presently on IV Solu-Medrol 20 mg q.8 hours and symptoms are gradually improving. The patient is maintained on Humira injections every 2 weeks on an outpatient basis for the last 3 years. 2. Mild elevation of serum transaminases which were normal at the time of this admission to the hospital. 3. History of peptic ulcer disease. RECOMMENDATIONS: 1. Continue with IV Solu-Medrol 20 mg q.8 hours. 2. Advance to regular diet. 3. If he is doing well, steroids will be changed to oral prednisone 40 mg daily tomorrow. The plan was discussed with the patient. He is agreeable to it. Thank you for this consultation. MMODL / VVIIANAN: [id number] /
[2020-02-29 16:45] LABS: Glucose,Whole Blood 111 mg/dL (75-99)
[2020-02-29 20:45] LABS: Glucose,Whole Blood 200 mg/dL (75-99)
[2020-02-29 22:17] VITALS: TEMP 97.5
[2020-03-01] MEDS ORDERED: SIMETHICONE 40 MG/0.6 ML DROPS 2,000 MG/30 ML BOTTLE PO PRN
[2020-03-01] MEDS: methylPREDNISolone SOD SUCCI 40 MG/ML 1 ML VIAL IV SCH ×2 (00:06→08:15)
[2020-03-01] MEDS: SIMETHICONE 40 MG/0.6 ML DROPS 2,000 MG/30 ML BOTTLE PO SCH ×2 (00:59→10:52)
--- NOTE | 2020-03-01 01:20 | P.PN ---
Subjective Principal diagnosis: Ileus with Crohn's colitis. This is a To doing progress note on a 69-year-old white male with underlying history of Crohn's colitis flare. He is admitted for ileus. He has been advanced to clear liquids and seems to be tolerating but appetite is poor. Significant abdominal pain and bloating is noted. He had flare yesterday where significant pain and nausea was noted. General surgery is now consult it just in case he needs something more aggressive. He has had long-term steroids this past month due to recurrent flare. Otherwise, I will advanced to full liquid diet to s tolerate. Objective - Vital Signs Vital signs: Vital Signs Temp 97.5 F L 02/29/20 19:25 Pulse 94 02/29/20 19:30 Resp 16 02/29/20 19:30 BP 185/90 02/29/20 19:25 Pulse Ox 97 02/29/20 19:25 Intake & Output 02/29/20 02/29/20 03/01/20 06:59 18:59 06:59 Intake Total 400 240 Output Total 762 754 Balance -762 400 -514 Weight 74.843 kg Intake: Oral 240 Other 400 Output: Urine 750 750 Stool 12 4 Other: Voiding Method Toilet Toilet Toilet # Voids 1 1 1 # Bowel Movements 2 1 - Constitutional General appearance: Present: average body habitus - EENT Eyes: Absent: abnormal pupil ENT: Absent: hard of hearing - Neck Neck: Absent: lymphadenopathy - Respiratory Respiratory: bilateral: CTA - Cardiovascular Rhythm: regular Heart sounds: normal: S1 Abnormal Heart Sounds: Absent: S3 Gallop - Gastrointestinal General gastrointestinal: Present: distended, soft - Integumentary Integumentary: Absent: cellulitis - Labs CBC & Chem 7: 02/29/20 11:05 02/29/20 11:05 Labs: Abnormal Lab Results - Last 24 Hours (Table) 02/29/20 02/29/20 02/29/20 Range/Units 06:41 11:05 11:05 RBC 3.62 L (4.30-5.90) m/uL Hgb 9.8 L (13.0-17.5) gm/dL Hct 31.9 L (39.0-53.0) % MCHC 30.9 L (31.0-37.0) g/dL RDW 15.8 H (11.5-15.5) % Chloride 112 H (98-107) mmol/L BUN 5 L (9-20) mg/dL Glucose 143 H (74-99) mg/dL POC Glucose (mg/dL) 129 H (75-99) mg/dL Calcium 7.7 L (8.4-10.2) mg/dL AST 71 H (17-59) U/L ALT 50 H (4-49) U/L Total Protein 6.1 L (6.3-8.2) g/dL Albumin 2.8 L (3.5-5.0) g/dL 02/29/20 02/29/20 02/29/20 Range/Units 11:45 16:42 20:43 RBC (4.30-5.90) m/uL Hgb (13.0-17.5) gm/dL Hct (39.0-53.0) % MCHC (31.0-37.0) g/dL RDW (11.5-15.5) % Chloride (98-107) mmol/L BUN (9-20) mg/dL Glucose (74-99) mg/dL POC Glucose (mg/dL) 128 H 111 H 200 H (75-99) mg/dL Calcium (8.4-10.2) mg/dL AST (17-59) U/L ALT (4-49) U/L Total Protein (6.3-8.2) g/dL Albumin (3.5-5.0) g/dL Assessment and Plan (1) Ileus Current Visit: Yes Status: Acute Code(s): K56.7 - ILEUS, UNSPECIFIED SNOMED Code(s): 204425078 (2) Abdominal pain Current Visit: Yes Status: Acute Code(s): R10.9 - UNSPECIFIED ABDOMINAL PAIN SNOMED Code(s): 25408295 (3) Crohn's colitis Current Visit: No Status: Acute Code(s): K50.10 - CROHN'S DISEASE OF LARGE INTESTINE WITHOUT COMPLICATIONS SNOMED Code(s): 91847094 (4) Dehydration Current Visit: No Status: Acute Code(s): E86.0 - DEHYDRATION SNOMED Code(s): 84798052 (5) Opiate dependence Current Visit: No Status: Acute Code(s): F11.20 - OPIOID DEPENDENCE, U NCOMPLICATED SNOMED Code(s): 72363960 (6) Gout Current Visit: No Status: Chronic Code(s): M10.9 - GOUT, UNSPECIFIED SNOMED Code(s): 44248033 (7) Rheumatoid arthritis Current Visit: No Status: Chronic Code(s): M06.9 - RHEUMATOID ARTHRITIS, UNSPECIFIED SNOMED Code(s): 35536917 Plan: We will go ahead and reconcile home medications. Advance Diet to full liquid. Check CBC and CMP in a.m. Appreciate consultation Appropriate steroid treatment as indicated. Dr. العراقي's group will be covering for the weekend. Anticipate discharge in a.m. Time with Patient: Less than 30
[2020-03-01] MEDS: SODIUM CHLORIDE 0.9% 1,000 ML IV SCH ×2 (02:34→10:52)
[2020-03-01 06:16] LABS: Glucose,Whole Blood 129 mg/dL (75-99)
[2020-03-01] MEDS: INSULIN ASPART (NovoLOG) 100 UNIT/ML VIAL SQ SCH ×2 (08:08→11:45)
[2020-03-01] MEDS: MULTIVITAMINS, THERA 1 EACH TAB PO SCH (08:16)
[2020-03-01] MEDS: CYCLOBENZAPRINE 10 MG TAB PO SCH (08:16)
[2020-03-01] MEDS: allopurinoL 100 MG TAB PO SCH (08:16)
[2020-03-01] MEDS: amLODIPine 5 MG TAB PO SCH (08:16)
[2020-03-01] MEDS: amLODIPine 10 MG TAB PO SCH (08:16)
[2020-03-01] MEDS: PANTOPRAZOLE 40 MG TABLET PO SCH (08:16)
[2020-03-01 08:23] VITALS: BP 160/75; PULSE 62; RESP 18
[2020-03-01] MEDS: methocarbamoL 750 MG TAB PO SCH (09:03)
[2020-03-01 11:36] LABS: Glucose,Whole Blood 256 mg/dL (75-99)
--- NOTE | 2020-03-01 11:41 | PN ---
PROGRESS NOTE DATE OF SERVICE: 03/01/2020 REQUESTING PHYSICIAN: Dr. Saldaña. Patient is a 69-year-old white male admitted to the hospital with abdominal pain, abdominal distention and exacerbation of Crohn's ileitis. He is on IV Solu-Medrol 20 mg q.12 hours. Yesterday he had about 10 bowel movement but this morning he feels constipated. He feels his abdomen is more distended today. He denies any nausea, vomiting. He reports no fever, chills, night sweats. PHYSICAL EXAMINATION: GENERAL: He appears comfortable. No apparent distress. VITAL SIGNS: Vital signs stable. Blood pressure of 160/75, pulse rate 62, temperature 97.5. HEENT: Examination unremarkable. Conjunctivae are pink. Sclerae anicteric. Oral cavity no lesions. NECK: No JVD or lymph node enlargement. CHEST: Clear to auscultation. HEART: Regular rate and rhythm. ABDOMEN: Soft, it was distended, it was tympanic, nontender. EXTREMITIES: No pedal edema. SKIN: No rashes. NEURO: He is alert and oriented x3. No focal deficits. LABS: From yesterday WBC 8.6, hemoglobin 9.8, platelets normal. Basic metabolic panel was within normal limits. AST and ALT were 71 and 50 respectively. IMPRESSION: 1. Exacerbation of Crohn's disease, on IV Solu-Medrol 20 mg q.8 hours. The patient gradually is improving. 2. Abdominal distention, rule out bowel obstruction. 3. Mild elevation of serum transaminases. RECOMMENDATIONS: 1. Obtain abdominal x-rays. 2. If the abdominal x-rays do not show any evidence of bowel obstruction, we will consider changing the IV steroids to oral prednisone 40 mg daily. 3. Repeat labs in the morning. 4. We will follow with you closely. Thank you for this consultation. MMODL / IJN: [id number] /
--- NOTE | 2020-03-01 13:04 | P.DS ---
Providers Date of admission: 02/27/20 09:39 Attending physician: Minh Saldaña Consults: 02/27/20 06:01 Consult Physician Routine Consulting Provider: Laura Yancey Consult Reason/Comments: crohn's disease. Ileus Do you want consulting provider notified?: Yes 02/27/20 19:56 Consult Physician Routine Consulting Provider: Peter Patten Consult Reason/Comments: ileus Do you want consulting provider notified?: Yes Primary care physician: Minh Saldaña Hospital Course: patient is admitted for diarrhea and abdominal pain secondary to Crohn's colitis patient's symptoms improved patient still has some abdominal distention although his abdominal pain resolved patient did tolerate his diet. Ruled out C. diff will obtain abdominal x-ray doesn't show any significant abnormality patient will be discharged today on 40 mg daily of prednisone as recommended by gastroenterology and patient will follow with gastroneurology as an outpatientdate tapering of the steroids will be done as an outpatient. PHYSICAL EXAMINATION: GENERAL: The patient is alert and oriented x3, not in any acute distress. Well developed, well nourished. HEENT: Pupils are round and equally reacting to light. EOMI. No scleral icterus. No conjunctival pallor. Normocephalic, atraumatic. No pharyngeal erythema. No thyromegaly. CARDIOVASCULAR: S1 and S2 present. No murmurs, rubs, or gallops. PULMONARY: Chest is clear to auscultation, no wheezing or crackles. ABDOMEN:distended nontender bowel sounds present MUSCULOSKELETAL: No joint swelling or deformity. EXTREMITIES: No cyanosis, clubbing, or pedal edema. NEUROLOGICAL: Gross neurological examination did not reveal any focal deficits. SKIN: No rashes. other medical problems has physician course please refer to the progress note from Dr. Saldaña from yesterday Patient Condition at Discharge: Serious Plan - Discharge Summary New Discharge Prescriptions: New predniSONE [Deltasone] 40 mg PO DAILY #30 tab amLODIPine [Norvasc] 10 mg PO DAILY tab Famotidine [Pepcid] 20 mg PO BID #30 tablet Continue Orphenadrine Citrate [Orphenadrine Citrate ER] 100 mg PO BID Adalimumab [Humira Pen] 40 mg SQ Q14D Febuxostat [Uloric] 80 mg PO DAILY Omeprazole 20 mg PO BID Buprenorphine HCl/Naloxone HCl [Suboxone 2 mg-0.5 mg Sl Film] 1 film SL HS [id number] [phone] [Excedrin] 2 tab PO DAILY PRN PRN Reason: Migraine Headache methocarbamoL [Robaxin] 750 mg PO TID Multivitamins, Thera [Multivitamin (formulary)] 1 tab PO DAILY Discontinued amLODIPine [Norvasc] 5 mg PO DAILY Amoxic-Pot Clav 875-125Mg [Augmentin 875-125] 1 tab PO Q12HR Discharge Medication List Orphenadrine Citrate [Orphenadrine Citrate ER] 100 mg PO BID 12/08/17 [History] Adalimumab [Humira Pen] 40 mg SQ Q14D 04/25/18 [History] Febuxostat [Uloric] 80 mg PO DAILY 05/05/18 [History] Buprenorphine HCl/Naloxone HCl [Suboxone 2 mg-0.5 mg Sl Film] 1 film SL HS 12/12/18 [History] Omeprazole 20 mg PO BID 12/12/18 [History] [id number] [phone] [Excedrin] 2 tab PO DAILY PRN 01/12/20 [History] Multivitamins, Thera [Multivitamin (formulary)] 1 tab PO DAILY 02/27/20 [History] methocarbamoL [Robaxin] 750 mg PO TID 02/27/20 [History] Famotidine [Pepcid] 20 mg PO BID #30 tablet 03/01/20 [Rx] amLODIPine [Norvasc] 10 mg PO DAILY tab 03/01/20 [Rx] predniSONE [Deltasone] 40 mg PO DAILY #30 tab 03/01/20 [Rx] Follow up Appointment(s)/Referral(s): Minh Saldaña MD [Primary Care Provider] - [address],[place] [NON-STAFF] - As Needed (Contact if cane is needed) Patient Instructions/Handouts: Hypotension (DC)
--- NOTE | 2020-03-01 13:37 | XR ---
EXAMINATION TYPE: XR abdomen acute w cxr DATE OF EXAM: 03/01/2020 COMPARISON: CT 02/27/2020, plain film exam 12/08/2017 HISTORY: Abdominal distention TECHNIQUE: Supine, upright, and frontal chest views of the abdomen are obtained. FINDINGS: Chest x-ray shows a stable appearance, old left-sided rib fractures are healed, there is s table calcified nodule in the right lung. Postop changes are noted in the upper abdomen. Air-filled l oops of colon are present, there are some air-fluid levels on the upright exam There is no evidence for pneumoperitoneum. The bowel gas pattern is unremarkable as there is air throughout nondilated small and large bowel. No mass effects are seen. No unusual calcifications. IMPRESSION: Correlate for diarrhea as noted on CT
== END 2020-03-01 14:05 | disposition home or self-care (01) | DRG 386 ==
LOC: EC 00:59 → 1SOBS 06:03 → 3NCARDOBS 08:38 → OBSVTOIN 09:39 → 1SOBS 02-28 00:32
PROVIDERS: ADMIT Family Medicine; ATTEND Family Medicine
DX: K50.80 Crohn's disease of both small and large intestine without complications (principal); F11.20 Opioid dependence, uncomplicated; K56.7 Ileus, unspecified; E86.0 Dehydration; I10 Essential (primary) hypertension; M06.9 Rheumatoid arthritis, unspecified; M10.9 Gout, unspecified; N20.0 Calculus of kidney; K21.9 Gastro-esophageal reflux disease without esophagitis; L40.9 Psoriasis, unspecified; Z94.89 Other transplanted organ and tissue status; H93.13 Tinnitus, bilateral; Z82.3 Family history of stroke; Z83.2 Family history of diseases of the blood and blood-forming organs and certain disorders involving the immune mechanism; Z82.49 Family history of ischemic heart disease and other diseases of the circulatory system; Z90.3 Acquired absence of stomach [part of]; Z90.49 Acquired absence of other specified parts of digestive tract; Z20.828 Contact with and (suspected) exposure to other viral communicable diseases; Z79.52 Long term (current) use of systemic steroids; Z79.899 Other long term (current) drug therapy; Z87.11 Personal history of peptic ulcer disease; Z87.442 Personal history of urinary calculi; Z98.42 Cataract extraction status, left eye; Z98.41 Cataract extraction status, right eye; Z91.041 Radiographic dye allergy status; Z90.89 Acquired absence of other organs; Z79.82 Long term (current) use of aspirin
CPT/HCPCS: 36415; 74018; 74022; 74176; 80053; 81003; 82150; 83605; 83690; 85025; 85027; 85652; 86140; 87324; 96361; 96374; 96375; 96376; 99285

== ENCOUNTER 2020-05-07 07:47 | Observation (INO) | payer BC, MEDICARE ==
[2020-05-07] MEDS ORDERED: methylPREDNISolone SOD SUCCI 125 MG/2 ML VIAL IV STA ×2 (07:59→10:11)
[2020-05-07] MEDS ORDERED: HYDROmorphone 0.5 MG/0.5 ML SYRINGE IVP STA ×2 (07:59→10:11)
[2020-05-07] MEDS ORDERED: ONDANSETRON 4 MG/2 ML VIAL IVP STA (07:59)
--- NOTE | 2020-05-07 08:24 | ED ---
Abdominal Pain HPI - General Chief Complaint: Abdominal Pain Stated Complaint: Abdominal pain Time Seen by Provider: 05/07/20 07:54 Source: patient Mode of arrival: ambulatory Limitations: no limitations - History of Present Illness Initial Comments: 70-year-old male history of Crohn's disease presenting for right lower quadrant abdominal pain as well as sinus pressure cough congestion chills for the past 2 weeks. Patient states that he has had sinus pressure cough congestion chills the past 2 weeks he states he does not feel short of breath or have chest pain. Patient denies recording a fever. Patient states that he has Crohn's the previous appendectomy he states he has been experiencing right lower quadrant abdominal pain for the past 3 days he states it feels similar 20s had Crohn exacerbation the past he states he has had frequent admissions for these exacerbations. Patient states he is on Humira he not currently on a steroid regimen/or burst. patient denies dark or bloody stools. Patient endorses chronic diarrhea, occasional nausea, and vomiting. patient denies constipation. - Related Data Home Medications Medication Instructions Recorded Confirmed Orphenadrine Citrate [Orphenadrine 100 mg PO BID 12/08/17 05/07/20 Citrate ER] Adalimumab [Humira Pen] 40 mg SQ Q14D 04/25/18 05/07/20 Febuxostat [Uloric] 80 mg PO DAILY 05/05/18 05/07/20 Buprenorphine HCl/Naloxone HCl 1 film SL HS 12/12/18 05/07/20 [Suboxone 2 mg-0.5 mg Sl Film] Omeprazole 20 mg PO BID 12/12/18 05/07/20 [id number] [phone] 2 tab PO DAILY PRN 01/12/20 05/07/20 [Excedrin] Multivitamins, Thera [Multivitamin 1 tab PO DAILY 02/27/20 05/07/20 (formulary)] methocarbamoL [Robaxin] 750 mg PO TID 02/27/20 05/07/20 Previous Rx's Medication Instructions Recorded Famotidine [Pepcid] 20 mg PO BID #30 tablet 03/01/20 amLODIPine [Norvasc] 10 mg PO DAILY tab 03/01/20 Allergies Allergy/AdvReac Type Severity Reaction Status Date / Time Iodinated Contrast Media Allergy Anaphylaxis Verified 05/07/20 09:35 [Iodinated Contrast Media - IV Dye] Review of Systems ROS Statement: Those systems with pertinent positive or pertinent negative responses have been documented in the HPI. ROS Other: All systems not noted in ROS Statement are negative. Past Medical History Past Medical History: GERD/Reflux, Hypertension, Rheumatoid Arthritis (RA), Skin Disorder, Supraventricular Tachycardia (SVT) Additional Past Medical History / Comment(s): hx CROHN'S (takes tresa), IBS, chronic diarrhea, migraines-, hx ulcers, anemia, gout, kidney stones, psoriasis, bilateral tinnitis., pinched sciatic nerve History of Any Multi-Drug Resistant Organisms: C-DIFF Date of last positivie culture/infection: stool MDRO Source:: 2017 Past Surgical History: Bowel Resection, Cardiac Ablation, Cholecystectomy, Heart Catheterization, Hernia Repair, Orthopedic Surgery, Tonsillectomy Additional Past Surgical History / Comment(s): partial gastrectomy (ulcers), bowel resections, fecal transplant, bilateral knee arthroscopic surgery, EGD/colonoscopies, R inguinal hernia repair, bilat cataract removal. Past Anesthesia/Blood Transfusion Reactions: Blood Transfusion Reaction, Motion Sickness Additional Past Anesthesia/Blood Transfusion Reaction / Comment(s): BLOOD TRANSFUSION- BROKE OUT IN HIVES age 21 Past Psychological History: No Psychological Hx Reported Smoking Status: Never smoker Past Alcohol Use History: Occasional Past Drug Use History: None Reported - Past Family History Mother Family Medical History: Pulmonary Embolus Additional Family Medical History / Comment(s): AGE 73-OR, STROKE DURING CARATID PROCEDURE General Exam - General Exam Comments Initial Comments: General: The patient is awake and alert, in no distress Eye: +3 mm pupils are equal, round and reactive to light, extra-ocular movements are intact. No nystagmus. There is normal conjunctiva bilaterally. No signs of icterus. Ears, nose, mouth and throat: There are moist mucous membranes and no oral lesions. Neck: The neck is supple, there is no tenderness or JVD. Cardiovascular: There is a regular rate and rhythm. No murmur, rub or gallop is appreciated. Respiratory: Lungs are clear to auscultation, respirations are non-labored, breath sounds are equal. No wheezes, stridor, rales, or rhonchi. Gastrointestinal: Soft, non-distended, diffusel abdominal tenderness, slightly increased RLQ, abdomen without masses or organomegaly noted. There is no rebound or guarding present. Musculoskeletal: Normal ROM, no tenderness. Strength 5/5. Sensation intact. Radial pulses equal bilaterally 2+. Neurological: A&O x 3. CN II-XII intact grossly, There are no obvious motor or sensory deficits. Coordination appears grossly intact. Speech is normal. Skin: Skin is warm and dry and no rashes or lesions are noted. Psychiatric: Cooperative, appropriate mood & affect, normal judgment. Limitations: no limitations Course Vital Signs 05/07/20 07:49 Temperature 98 F Pulse Rate 100 Respiratory 18 Rate Blood Pressure 193/87 O2 Sat by Pulse 98 Oximetry Medical Decision Making - Medical Decision Making Labs no critical findings. No leukocytosis. Cr increased slightly concern for dehydration. CT wo contrast no obivous abnormality. pt has hx of chrohns admits to this feeling like a flair, pain persistents. pt george be admitted for steroids, GI consultation, pain management. - Lab Data Result diagrams: 05/07/20 08:19 05/07/20 08:19 Lab Results 05/07/20 05/07/20 05/07/20 Range/Units 08:19 08:19 08:19 WBC 10.3 (3.8-10.6) k/uL RBC 3.95 L (4.30-5.90) m/uL Hgb 10.5 L (13.0-17.5) gm/dL Hct 34.2 L (39.0-53.0) % MCV 86.6 (80.0-100.0) fL MCH 26.6 (25.0-35.0) pg MCHC 30.8 L (31.0-37.0) g/dL RDW 15.4 (11.5-15.5) % Plt Count 281 (150-450) k/uL MPV 7.5 Neutrophils % 73 % Lymphocytes % 16 % Monocytes % 6 % Eosinophils % 2 % Basophils % 0 % Neutrophils # 7.5 (1.3-7.7) k/uL Lymphocytes # 1.7 (1.0-4.8) k/uL Monocytes # 0.6 (0-1.0) k/uL Eosinophils # 0.2 (0-0.7) k/uL Basophils # 0.0 (0-0.2) k/uL Hypochromasia Slight Sodium 140 (137-145) mmol/L Potassium 4.8 (3.5-5.1) mmol/L Chloride 115 H (98-107) mmol/L Carbon Dioxide 18 L (22-30) mmol/L Anion Gap 7 mmol/L BUN 17 (9-20) mg/dL Creatinine 1.32 H (0.66-1.25) mg/dL Est GFR (CKD-EPI)AfAm 63 (>60 ml/min/1.73 sqM) Est GFR (CKD-EPI)NonAf 55 (>60 ml/min/1.73 sqM) Glucose 127 H (74-99) mg/dL Plasma Lactic Acid Kal 0.9 (0.7-2.0) mmol/L Calcium 9.2 (8.4-10.2) mg/dL Total Bilirubin 0.5 (0.2-1.3) mg/dL AST 29 (17-59) U/L ALT 18 (4-49) U/L Alkaline Phosphatase 78 (38-126) U/L Total Protein 7.5 (6.3-8.2) g/dL Albumin 3.5 (3.5-5.0) g/dL Amylase 111 H (30-110) U/L Lipase 39 (23-300) U/L Urine Color Urine Appearance (Clear) Urine pH (5.0-8.0) Ur Specific [place] (1.001-1.035) Urine Protein (Negative) Urine Glucose (UA) (Negative) Urine Ketones (Negative) Urine Blood (Negative) Urine Nitrite (Negative) Urine Bilirubin (Negative) Urine Urobilinogen (<2.0) mg/dL Ur Leukocyte Esterase (Negative) Coronavirus (PCR) (Not Detectd) 05/07/20 05/07/20 Range/Units 08:19 09:36 WBC (3.8-10.6) k/uL RBC (4.30-5.90) m/uL Hgb (13.0-17.5) gm/dL Hct (39.0-53.0) % MCV (80.0-100.0) fL MCH (25.0-35.0) pg MCHC (31.0-37.0) g/dL RDW (11.5-15.5) % Plt Count (150-450) k/uL MPV Neutrophils % % Lymphocytes % % Monocytes % % Eosinophils % % Basophils % % Neutrophils # (1.3-7.7) k/uL Lymphocytes # (1.0-4.8) k/uL Monocytes # (0-1.0) k/uL Eosinophils # (0-0.7) k/uL Basophils # (0-0.2) k/uL Hypochromasia Sodium (137-145) mmol/L Potassium (3.5-5.1) mmol/L Chloride (98-107) mmol/L Carbon Dioxide (22-30) mmol/L Anion Gap mmol/L BUN (9-20) mg/dL Creatinine (0.66-1.25) mg/dL Est GFR (CKD-EPI)AfAm (>60 ml/min/1.73 sqM) Est GFR (CKD-EPI)NonAf (>60 ml/min/1.73 sqM) Glucose (74-99) mg/dL Plasma Lactic Acid Kal (0.7-2.0) mmol/L Calcium (8.4-10.2) mg/dL Total Bilirubin (0.2-1.3) mg/dL AST (17-59) U/L ALT (4-49) U/L Alkaline Phosphatase (38-126) U/L Total Protein (6.3-8.2) g/dL Albumin (3.5-5.0) g/dL Amylase (30-110) U/L Lipase (23-300) U/L Urine Color Light Yellow Urine Appearance Clear (Clear) Urine pH 5.5 (5.0-8.0) Ur Specific [place] 1.019 (1.001-1.035) Urine Protein Negative (Negative) Urine Glucose (UA) Negative (Negative) Urine Ketones Negative (Negative) Urine Blood Negative (Negative) Urine Nitrite Negative (Negative) Urine Bilirubin Negative (Negative) Urine Urobilinogen <2.0 (<2.0) mg/dL Ur Leukocyte Esterase Negative (Negative) Coronavirus (PCR) Not Detected (Not Detectd) Disposition Clinical Impression: Abdominal pain, Hx of Crohn's disease, Dehydration Disposition: ADMITTED IP TO THIS [facility] Condition: Stable Is patient prescribed a controlled substance at d/c from ED?: No Referrals: Minh Saldaña MD [Primary Care Provider] - 1-2 days Time of Disposition: 10:12 Decision to Admit Reason: Admit from EC Decision Date: 05/07/20 Decision Time: 10:12
[2020-05-07 08:35] LABS: Basophils % (A) 0 %; Eosinophils # (A) 0.2 k/uL (0-0.7); Eosinophils % (A) 2 %; HCT 34.2 % (39.0-53.0); HGB 10.5 gm/dL (13.0-17.5); Hypochromasia Slight; Lymphocytes # (A) 1.7 k/uL (1.0-4.8); Lymphocytes % (A) 16 %; MCH 26.6 pg (25.0-35.0); MCHC 30.8 g/dL (31.0-37.0); MCV 86.6 fL (80.0-100.0); Mean Platelet Volume 7.5; Monocytes # (A) 0.6 k/uL (0-1.0); Monocytes % (A) 6 %; Neutrophils # (A) 7.5 k/uL (1.3-7.7); Neutrophils % (A) 73 %; Platelet Count 281 k/uL (150-450); RBC 3.95 m/uL (4.30-5.90); RDW 15.4 % (11.5-15.5); WBC 10.3 k/uL (3.8-10.6)
--- NOTE | 2020-05-07 08:43 | XR ---
EXAMINATION TYPE: XR chest 2V DATE OF EXAM: 05/07/2020 COMPARISON: Chest x-ray March 01, 2020 HISTORY: Cough. TECHNIQUE: Frontal and lateral views of the chest are obtained. FINDINGS: There is chronic parenchymal changes bilaterally without suspicious new focal air space opacity, pleural effusion, or pneumothorax seen. The cardiac silhouette size is stab le and mildly enlarged with atherosclerotic and prominent aortic knob. There are surgical clips epiga stric region at level of diaphragmatic hiatus redemonstrated. Multiple cholecystectomy clips again se en. Old calcified nodule or granuloma right midlung. Old posterior lateral left mid rib fractures red emonstrated.. IMPRESSION: Chronic changes and mild cardiomegaly without acute pulmonary process.
[2020-05-07 08:48] LABS: Albumin 3.5 g/dL (3.5-5.0); Calcium 9.2 mg/dL (8.4-10.2); Potassium 4.8 mmol/L (3.5-5.1); Total Bilirubin 0.5 mg/dL (0.2-1.3); Total Protein 7.5 g/dL (6.3-8.2)
[2020-05-07] MEDS ORDERED: SODIUM CHLORIDE 0.9% 1,000 ML IV ONE (08:50)
--- NOTE | 2020-05-07 09:46 | CT ---
EXAMINATION TYPE: CT abdomen pelvis wo con DATE OF EXAM: 05/07/2020 HISTORY: Acute abdominal pain. CT DLP: 514.8 mGycm. Automated Exposure Control for Dose Reduction was Utilized. TECHNIQUE: CT scan of the abdomen and pelvis is performed without oral or IV contrast. COMPARISON: CT abdomen and pelvis February 27, 2020 FINDINGS: Within the limitations of a non-contrast study, the following observations are made. LUNG BASES: Dependent atelectasis. LIVER/GB: Cholecystectomy clips redemonstrated. PANCREAS: No significant abnormality is seen. SPLEEN: Mild splenomegaly measuring 13.5 cm long axis coronal image 56. ADRENALS: No significant abnormality is seen. KIDNEYS: Multiple Small nonobstructing bilateral renal calculi redemonstrated. Stable 2.6 cm thin-wal led cyst right kidney axial image 34 midpole level. No hydronephrosis or obstructing ureteral calculi . No intraluminal calculi and bladder. BOWEL: Surgical sutures from partial proximal colectomy with bowel anastomosis redemonstrated. Surgic al changes at the diaphragmatic hiatus. No suspicious small or large bowel dilatation. GENITAL ORGANS: No gross abnormality seen. LYMPH NODES: No new greater than 1cm abdominal or pelvic lymph nodes are appreciated. Slightly promin ent scattered subcentimeter mesenteric lymph nodes in the mid to lower abdomen redemonstrated. OSSEOUS STRUCTURES: Small posterior disc herniations efface the anterior thecal sac at L3-L4 L4-L5 le vels on sagittal image 66. OTHER: Mild calcified plaque in the slightly ectatic distal abdominal aorta. IMPRESSION: Multiple small bilateral nonobstructing renal calculi redemonstrated. No hydronephrosis o r obstructing ureteral calculi. No bowel obstruction. No acute findings are evident.
[2020-05-07 09:52] LABS: Appearance,Urine Clear (Clear); Bilirubin,Urine Negative (Negative); Blood,Urine Negative (Negative); Color,Urine Light Yellow; Glucose,Urine (UA) Negative (Negative); Ketones,Urine Negative (Negative); Leukocyte Esterase,Urine Negative (Negative); Nitrite,Urine Negative (Negative); PH, Urine 5.5 (5.0-8.0); Protein,Urine Negative (Negative); Specific Gravity,Urine 1.019 (1.001-1.035); Urobilinogen,Urine <2.0 mg/dL (<2.0)
[2020-05-07] MEDS ORDERED: NALOXONE 0.4 MG/ML 1 ML VIAL IV PRN (10:11)
[2020-05-07] MEDS: SODIUM CHLORIDE 0.9% 1,000 ML IV SCH ×2 (10:48→22:02)
[2020-05-07] MEDS ORDERED: ONDANSETRON 4 MG/2 ML VIAL IVP PRN (11:51)
[2020-05-07] MEDS: PANTOPRAZOLE 40 MG/10 ML VIAL IVP SCH ×2 (15:04→22:01)
--- NOTE | 2020-05-07 15:19 | CONS ---
CONSULTATION DATE OF DICTATION: 05/07/2020 REASON FOR CONSULTATION: Abdominal pain, nausea, vomiting, and diarrhea. HISTORY OF PRESENT ILLNESS: The patient is a 70-year-old pleasant white male with longstanding history of Crohn's disease involving the small bowel with small bowel resection about 3 or 4 years ago, history of recurrent C difficile colitis, admitted to the hospital because of abdominal pain, nausea, vomiting, and diarrhea. The patient states that his symptoms started with a sinus infection about a month ago. He had congestion, sore throat, chills, chronic cough and he was treated with Zithromax about 2 weeks ago. His sinus symptoms are slowly getting better, but in the meantime started developing abdominal discomfort with nausea, vomiting. Pain was sometimes in the right lower quadrant area, occasionally in the epigastric area associated with abdominal bloating. He had bowel movements anywhere from 7 to 8 a day which are loose to watery in consistency. Patient is maintained on Humira 40 mg q.2 weeks for history of Crohn's disease. His last hospitalization was in February of 2020 for the same reason and was treated with a short course of steroids and he did well. History of rheumatoid arthritis and he has been complaining of some joint swellings lately. He also complains of fatigue and weakness. PAST MEDICAL HISTORY: Significant for Crohn's disease involving the small bowel, maintained on Humira infusions every 2 weeks, history of rheumatoid arthritis, peptic ulcer disease. MEDICATIONS: Medications at home include Humira, Uloric, multivitamin, omeprazole, aspirin, Robaxin, Suboxone. ALLERGIES: IV DYE. SOCIAL HISTORY: No smoking. No alcohol use. PAST SURGICAL HISTORY: Small bowel resection 4 years ago, cardiac ablation, cholecystectomy, cardiac catheterization, partial gastrectomy for peptic ulcer disease in the , right inguinal hernia repair, multiple EGDs and colonoscopies in the past. FAMILY HISTORY: Mother pulmonary embolism. REVIEW OF SYSTEMS: CARDIOPULMONARY: No chest pain, no shortness of breath. GENITOURINARY: No dysuria or hematuria. MUSCULOSKELETAL: Severe arthritis in the upper extremities. NEUROLOGY: Unremarkable. PSYCHIATRIC: Unremarkable. ENT/VISION: Unremarkable. HEMATOLOGY: Unremarkable. CONSTITUTIONAL: No recent weight loss. No fever, chills, night sweats. GI: As mentioned above. PHYSICAL EXAMINATION: He appears comfortable. No apparent distress. Vital signs are stable. Blood pressure is 162/86, pulse rate 72, temperature 98.9. HEENT EXAMINATION: Unremarkable. Conjunctivae pink. Sclerae anicteric. Oral cavity no lesions. NECK: No JVD or lymph node enlargement. CHEST: Was clear to auscultation. HEART: Regular rate and rhythm. ABDOMEN: Slightly distended. There was some tenderness noted in the epigastric area as well as right lower quadrant area. Rest of the abdomen was benign. Bowel sounds are positive. No organomegaly. EXTREMITIES: No pedal edema. SKIN: No rashes. NEURO: He is alert and oriented x3. No focal deficits. LABS: WBC 10.3, hemoglobin 10.5, platelets 281. Sedimentation rate is 85. BUN 17, creatinine 1.32. CRP is 30.5. Amylase and lipase are normal. ALT, AST, T-bilirubin and alkaline phosphatase are within normal limits. Coronavirus PCR is negative. Urinalysis is negative. IMPRESSION: 1. This is a patient with history of Crohn's ileitis who is maintained on Humira 40 mg q.2 weeks for the last 4 years, admitted to hospital with abdominal pain, nausea, vomiting, diarrhea for the last 3 to 4 days duration. He had similar symptoms about 2 months ago, treated with short course of steroids for 3 weeks and he did well. The patient feels that he is having a flare up of his underlying Crohn disease. His last colonoscopy done in January of 2020 showed normal-appearing colon with no evidence of active colitis and widely patent ileocolic anastomosis. He did have a CT of the abdomen and pelvis done yesterday that showed multiple small bilateral nonobstructing renal calculi. No evidence of bowel obstruction and no other acute findings noted. 2. History of rheumatoid arthritis with a flare up. 3. History of Clostridium difficile colitis in the past, status post fecal transplantation about 2 years ago. RECOMMENDATIONS: 1. Start him on Solu-Medrol 20 mg q.8 hours. 2. Start clear liquid diet. 3. Monitor labs closely. Thank you for this consultation. We will follow with you closely. MMODL / IJN: [id number] /
[2020-05-07] MEDS: methylPREDNISolone SOD SUCCI 40 MG/ML 1 ML VIAL IV SCH (15:34)
[2020-05-07] MEDS ORDERED: ADALIMUMAB SQ SCH (16:00)
[2020-05-07] MEDS: methocarbamoL 750 MG TAB PO SCH ×2 (17:01→22:02)
[2020-05-07] MEDS ORDERED: NON FORMULARY DRUG (Buprenorphine Hcl/Naloxone Hcl [Suboxone 2 Mg-0.5 Mg Sl Film] 1 EACH F MUCOUS MEM SCH (21:00)
[2020-05-07] MEDS ORDERED: PATIENT'S OWN (Buprenorphine Hcl/Naloxone Hcl [Suboxone 2 Mg-0.5 Mg Sl Film] 1 EACH F MUCOUS MEM SCH (21:00)
[2020-05-07] MEDS: CYCLOBENZAPRINE 10 MG TAB PO SCH (22:02)
[2020-05-07] MEDS: FAMOTIDINE 20 MG TAB PO SCH (22:02)
[2020-05-08] MEDS: methylPREDNISolone SOD SUCCI 40 MG/ML 1 ML VIAL IV SCH ×4 (00:50→23:33)
[2020-05-08 07:12] LABS: Basophils % (A) 0 %; Eosinophils % (A) 0 %; HGB 9.7 gm/dL (13.0-17.5); Hypochromasia Slight; Lymphocytes # (A) 0.8 k/uL (1.0-4.8); Lymphocytes % (A) 12 %; MCH 28.2 pg (25.0-35.0); MCHC 32.3 g/dL (31.0-37.0); MCV 87.4 fL (80.0-100.0); Mean Platelet Volume 7.3; Monocytes # (A) 0.2 k/uL (0-1.0); Monocytes % (A) 3 %; Neutrophils # (A) 5.5 k/uL (1.3-7.7); Neutrophils % (A) 84 %; Platelet Count 201 k/uL (150-450); RBC 3.43 m/uL (4.30-5.90); RDW 15.1 % (11.5-15.5); WBC 6.5 k/uL (3.8-10.6)
[2020-05-08] MEDS: allopurinoL 100 MG TAB PO SCH ×2 (08:10→20:12)
[2020-05-08] MEDS: PANTOPRAZOLE 40 MG/10 ML VIAL IVP SCH ×2 (08:11→20:11)
[2020-05-08] MEDS: FAMOTIDINE 20 MG TAB PO SCH ×2 (08:11→20:11)
[2020-05-08] MEDS: amLODIPine 10 MG TAB PO SCH (08:11)
[2020-05-08] MEDS: CYCLOBENZAPRINE 10 MG TAB PO SCH ×2 (08:11→20:11)
[2020-05-08] MEDS: MULTIVITAMINS, THERA 1 EACH TAB PO SCH (08:11)
[2020-05-08] MEDS: methocarbamoL 750 MG TAB PO SCH ×3 (08:11→20:12)
[2020-05-08] MEDS ORDERED: KETOROLAC 15 MG/ML 1 ML VIAL IVP STA (08:15)
--- NOTE | 2020-05-08 08:40 | P.HPIM ---
History of Present Illness H&P Date: 05/08/20 Chief Complaint: Crohns flare This is a history and physical on a 70-year-old white male with known history of Crohn's colitis, rheumatoid arthritis and hypertension with opiate dependence who has recurrent Crohn's flareup. Abdominal bloating and minimal bowel movement is noted. Significant pain as stated. Review of Systems Constitutional: Denies chills, Denies fever Eyes: denies blurred vision, denies pain Ears, nose, mouth and throat: Denies headache, Denies sore throat Cardiovascular: Denies chest pain, Denies shortness of breath Respiratory: Denies cough Gastrointestinal: Reports as per HPI, Reports abdominal pain Musculoskeletal: Denies myalgias Past Medical History Past Medical History: GERD/Reflux, Hypertension, Rheumatoid Arthritis (RA), Skin Disorder, Supraventricular Tachycardia (SVT) Additional Past Medical History / Comment(s): hx CROHN'S (takes tresa), IBS, chronic diarrhea, migraines-, hx ulcers, anemia, gout, kidney stones, psoriasis, bilateral tinnitis., pinched sciatic nerve History of Any Multi-Drug Resistant Organisms: C-DIFF Date of last positivie culture/infection: stool MDRO Source:: 2016 Past Surgical History: Bowel Resection, Cardiac Ablation, Cholecystectomy, Heart Catheterization, Hernia Repair, Orthopedic Surgery, Tonsillectomy Additional Past Surgical History / Comment(s): partial gastrectomy (ulcers), bowel resections, fecal transplant, bilateral knee arthroscopic surgery, EGD/colonoscopies, R inguinal hernia repair, bilat cataract removal. Past Anesthesia/Blood Transfusion Reactions: Blood Transfusion Reaction, Motion Sickness Additional Past Anesthesia/Blood Transfusion Reaction / Comment(s): BLOOD TRANSFUSION- BROKE OUT IN HIVES age 21 Past Psychological History: No Psychological Hx Reported Additional Psychological History / Comment(s): denies Smoking Status: Never smoker Past Alcohol Use History: Occasional Past Drug Use History: None Reported Additional Drug Use History / Comment(s): Hx of opiate dependency-on suboxone. - Past Family History Mother Family Medical History: Pulmonary Embolus Additional Family Medical History / Comment(s): AGE 73-[place], STROKE DURING CARATID PROCEDURE Medications and Allergies Home Medications Medication Instructions Recorded Confirmed Type Orphenadrine Citrate [Orphenadrine 100 mg PO BID 12/08/17 05/07/20 History Citrate ER] Adalimumab [Humira Pen] 40 mg SQ Q14D 04/25/18 05/07/20 History Febuxostat [Uloric] 80 mg PO DAILY 05/05/18 05/07/20 History Buprenorphine HCl/Naloxone HCl 1 film SL HS 12/12/18 05/07/20 History [Suboxone 2 mg-0.5 mg Sl Film] Omeprazole 20 mg PO BID 12/12/18 05/07/20 History [id number]-Mrmc [id number] 2 tab PO DAILY PRN 01/12/20 05/07/20 History [Excedrin] Multivitamins, Thera [Multivitamin 1 tab PO DAILY 02/27/20 05/07/20 History (formulary)] methocarbamoL [Robaxin] 750 mg PO TID 02/27/20 05/07/20 History Famotidine [Pepcid] 20 mg PO BID #30 tablet 03/01/20 05/07/20 Rx amLODIPine [Norvasc] 10 mg PO DAILY tab 03/01/20 05/07/20 Rx Allergies Allergy/AdvReac Type Severity Reaction Status Date / Time Iodinated Contrast Media Allergy Anaphylaxis Verified 05/07/20 09:35 [Iodinated Contrast Media - IV Dye] Physical Exam Vitals: Vital Signs Temp Pulse Pulse Resp BP BP Pulse Ox 05/08/20 08:06 97.7 F 85 16 194/97 99 05/08/20 02:00 97.4 F L 72 16 173/84 97 05/07/20 20:00 97.7 F 84 16 165/80 96 05/07/20 15:27 98.5 F 18 163/75 98 05/07/20 11:55 72 16 162/86 100 05/07/20 10:44 69 18 166/75 100 05/07/20 10:00 18 05/07/20 09:00 18 05/07/20 08:52 18 Intake and Output 05/07/20 05/08/20 05/08/20 22:59 06:59 14:59 Other: Voiding Method Toilet # Voids 1 3 - Constitutional General appearance: no acute distress - EENT Eyes: EOMI - Neck Neck: no lymphadenopathy - Respiratory Respiratory: bilateral: CTA - Cardiovascular Rhythm: regular Heart sounds: normal: S1, S2 Abnormal Heart Sounds: S3 Gallop - Gastrointestinal General gastrointestinal: decreased bowel sounds, tenderness - Psychiatric Psychiatric: A&O x's 3, intact judgment & insight Results CBC & Chem 7: 05/08/20 06:24 05/07/20 08:19 Labs: Abnormal Lab Results - Last 24 Hours (Table) 05/07/20 05/07/20 05/07/20 Range/Units 08:19 08:19 08:19 RBC (4.30-5.90) m/uL Hgb (13.0-17.5) gm/dL Hct (39.0-53.0) % Lymphocytes # (1.0-4.8) k/uL ESR 85 H (0-15) mm/hr Chloride 115 H (98-107) mmol/L Carbon Dioxide 18 L (22-30) mmol/L Creatinine 1.32 H (0.66-1.25) mg/dL Glucose 127 H (74-99) mg/dL C-Reactive Protein 30.5 H (<10.0) mg/L Amylase 111 H (30-110) U/L 05/08/20 Range/Units 06:24 RBC 3.43 L (4.30-5.90) m/uL Hgb 9.7 L (13.0-17.5) gm/dL Hct 30.0 L (39.0-53.0) % Lymphocytes # 0.8 L (1.0-4.8) k/uL ESR (0-15) mm/hr Chloride (98-107) mmol/L Carbon Dioxide (22-30) mmol/L Creatinine (0.66-1.25) mg/dL Glucose (74-99) mg/dL C-Reactive Protein (<10.0) mg/L Amylase (30-110) U/L Thrombosis Risk Factor Assmnt - Choose All That Apply Each Risk Factor Represents 2 Points: Age 61-74 years Thrombosis Risk Factor Assessment Total Risk Factor Score: 2 Thrombosis Risk Factor Assessment Level: Low Risk Assessment and Plan (1) Abdominal pain Current Visit: Yes Status: Acute Code(s): R10.9 - UNSPECIFIED ABDOMINAL PAIN SNOMED Code(s): 49041805 (2) Dehydration Current Visit: Yes Status: Acute Code(s): E86.0 - DEHYDRATION SNOMED Code(s): 52303938 (3) Crohn's colitis Current Visit: No Status: Acute Code(s): K50.10 - CROHN'S DISEASE OF LARGE INTESTINE WITHOUT COMPLICATIONS SNOMED Code(s): 82433429 (4) Exacerbation of Crohn's disease Current Visit: No Status: Acute Code(s): K50.90 - CROHN'S DISEASE, UNSPECIFIED, WITHOUT COMPLICATIONS SNOMED Code(s): 15783152 (5) History of Clostridium difficile colitis Current Visit: No Status: Acute Code(s): Z86.19 - PERSONAL HISTORY OF OTHER INFECTIOUS AND PARASITIC DISEASES SNOMED Code(s): 732120566 (6) Hypertension Current Visit: No Status: Acute Code(s): I10 - ESSENTIAL (PRIMARY) HYPERTENSION SNOMED Code(s): 24609672 Plan: Empiric steroid treatment. Reconcile home medications. Toradol for pain. New. Check CBC and CMP in a.m.
[2020-05-08 10:09] LABS: Erythrocyte Sedimentation Rate 75 mm/hr (0-15)
[2020-05-08] MEDS ORDERED: PATIENT'S OWN (Buprenorphine Hcl/Naloxone Hcl [Suboxone 2 Mg-0.5 Mg Sl Film] 1 EACH F MUCOUS MEM SCH (14:00)
--- NOTE | 2020-05-08 14:39 | PN ---
PROGRESS NOTE DATE OF DICTATION: May 08, 2020 Patient is a 70-year-old white male with history of Crohn's disease, maintained on Humira 40 mg every 2 weeks, admitted to the hospital with abdominal pain, nausea, vomiting, diarrhea yesterday. Labs showed elevated Sed rate and CRP. Because of a clinical suspicion for flare up of Crohn's, he was started on Solu-Medrol 20 mg q.8 hours. He is feeling better. Abdominal pain has improved. Nausea and vomiting has resolved, on a clear liquid diet, tolerating well. No fever, chills, or night sweats. PHYSICAL EXAMINATION: He appears comfortable. Vital signs are stable. Blood pressure is 194/97, pulse rate 85, temperature 97.7. HEENT: Examination unremarkable. Conjunctivae pink. Sclerae anicteric. Oral cavity, no lesions. NECK: No JVD or lymph node enlargement. CHEST: Was clear to auscultation. HEART: Regular rate and rhythm. ABDOMEN: Slightly distended, but it was nontender. It was tympanic. EXTREMITIES: No pedal edema. NEUROLOGIC: Alert and oriented x3. No focal deficits. LABS: Labs from today, WBC 6.5, hemoglobin 9.7, platelets normal. Basic metabolic panel was not done today. C difficile toxin done yesterday was negative. Coronavirus PCR is negative. IMPRESSION: 1. Exacerbation of Crohn's disease, on IV Solu-Medrol 20 mg q.8 hours. Patient doing better. Symptoms are improving. Last colonoscopy January of 2020 showed a widely patent ileocolic anastomosis with no active Crohn's. 2. Mild anemia. Clinically no evidence of active bleeding. 3. History of rheumatoid arthritis. 4. History of hypertension and gastroesophageal reflux disease. RECOMMENDATIONS: 1. Continue Solu-Medrol 20 mg q.8 hours today and tomorrow will change it to prednisone 30 mg daily. 2. Advance diet as tolerated. 3. Continue with Protonix 40 mg twice daily. 4. Repeat labs in the morning. 5. Will follow with you closely. Thank you for this consultation. MMODL / IJN: [id number] /
[2020-05-08] MEDS ORDERED: Buprenorphine Hcl/Naloxone Hcl [Suboxone 2 Mg-0.5 Mg Sl Film] MUCOUS MEM SCH (17:00)
[2020-05-08] MEDS: ASPIRIN-ACET-CAFF 250-250-65MG 1 EACH TAB PO PRN (17:40)
[2020-05-08] MEDS: SODIUM CHLORIDE 0.9% 1,000 ML IV SCH ×2 (19:35→23:33)
[2020-05-08 23:54] VITALS: RESP 16
[2020-05-09 06:22] LABS: HCT 28.9 % (39.0-53.0); HGB 9.2 gm/dL (13.0-17.5); Hypochromasia Moderate; MCHC 31.7 g/dL (31.0-37.0); MCV 88.1 fL (80.0-100.0); Mean Platelet Volume 7.5; Platelet Count 192 k/uL (150-450); RBC 3.28 m/uL (4.30-5.90); RDW 15.1 % (11.5-15.5); WBC 8.1 k/uL (3.8-10.6)
[2020-05-09 07:43] VITALS: BP 178/90; PULSE 80; TEMP 97.8
--- NOTE | 2020-05-09 08:29 | P.DS ---
Providers Date of admission: 05/07/20 10:03 Attending physician: Minh Saldaña Consults: 05/07/20 10:11 Consult Physician Routine Consulting Provider: Laura Yancey Consult Reason/Comments: possible crohns flare Do you want consulting provider notified?: Yes Primary care physician: Minh Saldaña - Discharge Diagnosis(es) (1) Abdominal pain Current Visit: Yes Status: Acute (2) Dehydration Current Visit: Yes Status: Acute (3) Crohn's colitis Current Visit: No Status: Acute (4) Exacerbation of Crohn's disease Current Visit: No Status: Acute (5) History of Clostridium difficile colitis Current Visit: No Status: Acute (6) Hypertension Current Visit: No Status: Acute Hospital Course: The patient is 7-year-old white male essentially admitted for Crohn's colitis. The patient stabilizes steroids and I will be discharged on oral steroids. The patient has been tolerating diet and is ambulating without difficulty. Patient regarding continued biologic use given his comorbidity of rheumatoid arthritis with the Crohn's colitis. Patient Condition at Discharge: Stable Plan - Discharge Summary Discharge Rx Participant: Yes New Discharge Prescriptions: No Action Orphenadrine Citrate [Orphenadrine Citrate ER] 100 mg PO BID Adalimumab [Humira Pen] 40 mg SQ Q14D Febuxostat [Uloric] 80 mg PO DAILY Omeprazole 20 mg PO BID Buprenorphine HCl/Naloxone HCl [Suboxone 2 mg-0.5 mg Sl Film] 1 film SL HS [id number] [Excedrin] 2 tab PO DAILY PRN PRN Reason: Migraine Headache methocarbamoL [Robaxin] 750 mg PO TID Multivitamins, Thera [Multivitamin (formulary)] 1 tab PO DAILY amLODIPine [Norvasc] 10 mg PO DAILY tab Famotidine [Pepcid] 20 mg PO BID #30 tablet Discharge Medication List Orphenadrine Citrate [Orphenadrine Citrate ER] 100 mg PO BID 12/08/17 [History] Adalimumab [Humira Pen] 40 mg SQ Q14D 04/25/18 [History] Febuxostat [Uloric] 80 mg PO DAILY 05/05/18 [History] Buprenorphine HCl/Naloxone HCl [Suboxone 2 mg-0.5 mg Sl Film] 1 film SL HS 12/12/18 [History] Omeprazole 20 mg PO BID 12/12/18 [History] [id number]-[id number] [id number] [Excedrin] 2 tab PO DAILY PRN 01/12/20 [History] Multivitamins, Thera [Multivitamin (formulary)] 1 tab PO DAILY 02/27/20 [History] methocarbamoL [Robaxin] 750 mg PO TID 02/27/20 [History] Famotidine [Pepcid] 20 mg PO BID #30 tablet 03/01/20 [Rx] amLODIPine [Norvasc] 10 mg PO DAILY tab 03/01/20 [Rx] Follow up Appointment(s)/Referral(s): Minh Saldaña MD [Primary Care Provider] - 1-2 days
[2020-05-09] MEDS: methylPREDNISolone SOD SUCCI 40 MG/ML 1 ML VIAL IV SCH (08:44)
[2020-05-09] MEDS: CYCLOBENZAPRINE 10 MG TAB PO SCH (08:44)
[2020-05-09] MEDS: allopurinoL 100 MG TAB PO SCH (08:44)
[2020-05-09] MEDS: methocarbamoL 750 MG TAB PO SCH (08:44)
[2020-05-09] MEDS: amLODIPine 10 MG TAB PO SCH (08:44)
[2020-05-09] MEDS: PANTOPRAZOLE 40 MG/10 ML VIAL IVP SCH (08:44)
[2020-05-09] MEDS: FAMOTIDINE 20 MG TAB PO SCH (08:44)
[2020-05-09] MEDS: MULTIVITAMINS, THERA 1 EACH TAB PO SCH (08:44)
[2020-05-09] MEDS: ASPIRIN-ACET-CAFF 250-250-65MG 1 EACH TAB PO PRN (09:52)
[2020-05-09 10:39] LABS: Albumin 3.5 g/dL (3.80-4.90); Albumin/Globulin Ratio 1.21 (1.60-3.17); Anion Gap 7.9 mmol/L (4.00-12.00); Carbon Dioxide 17.1 mmol/L (21.6-31.8); Globulin 2.9 g/dL (1.6-3.3); Non-African American GFR(CKD) 75.9 (60.0-200.0); Potassium 4.2 mmol/L (3.5-5.5); Total Bilirubin 0.2 mg/dL (0.3-1.2); Total Protein 6.4 g/dL (6.2-8.2)
== END 2020-05-09 10:14 | disposition home or self-care (01) ==
LOC: EC 07:47 → 6NMEDSUR 10:03 → UNDOADMIN 10:03 → 5NMEDONC 10:03 → INTOOBSV 10:03 → 6NMEDSUR 12:38
PROVIDERS: ADMIT Family Medicine; ATTEND Family Medicine
DX: K50.80 Crohn's disease of both small and large intestine without complications (principal); K52.9 Noninfective gastroenteritis and colitis, unspecified; E86.0 Dehydration; I10 Essential (primary) hypertension; M06.9 Rheumatoid arthritis, unspecified; R09.81 Nasal congestion; R05 Cough; R68.83 Chills (without fever); K21.9 Gastro-esophageal reflux disease without esophagitis; L40.9 Psoriasis, unspecified; I47.1 Supraventricular tachycardia; G43.909 Migraine, unspecified, not intractable, without status migrainosus; M10.9 Gout, unspecified; H93.13 Tinnitus, bilateral; F11.20 Opioid dependence, uncomplicated; D64.9 Anemia, unspecified; Z20.828 Contact with and (suspected) exposure to other viral communicable diseases; Z90.49 Acquired absence of other specified parts of digestive tract; Z79.899 Other long term (current) drug therapy; Z91.041 Radiographic dye allergy status; Z87.442 Personal history of urinary calculi; Z86.69 Personal history of other diseases of the nervous system and sense organs; Z86.19 Personal history of other infectious and parasitic diseases; Z98.890 Other specified postprocedural states; Z90.89 Acquired absence of other organs; Z90.3 Acquired absence of stomach [part of]; Z87.11 Personal history of peptic ulcer disease; Z92.89 Personal history of other medical treatment; Z98.41 Cataract extraction status, right eye; Z98.42 Cataract extraction status, left eye; Z87.898 Personal history of other specified conditions; Z79.82 Long term (current) use of aspirin; Z98.0 Intestinal bypass and anastomosis status; Z82.49 Family history of ischemic heart disease and other diseases of the circulatory system; Z82.3 Family history of stroke
CPT/HCPCS: 96376 ×4; 96375 ×3; 96361; 96374; 99285; 36415; 80053 ×2; 85652 ×2; 82150; 83605; 83690; 85025 ×2; 85027; 86140 ×2; 81003; 87324; 87635; 71046; 74176; G0378 ×3; J2920 ×3; J2930; J2405; J1885; C9113 ×3; J1170

== ENCOUNTER 2020-07-12 10:46 | Inpatient (IN) | payer BC, MEDICARE ==
[2020-07-12] MEDS ORDERED: SODIUM CHLORIDE 0.9% 500 ML 500 ML IV STA (11:19)
[2020-07-12] MEDS ORDERED: DILTIAZEM DRIP BOLUS FROM BAG 1 MG SOLN IV ONE ×3 (11:20→14:02)
[2020-07-12] MEDS ORDERED: MORPHINE SULFATE 4 MG/ML SYRINGE IVP STA (11:20)
[2020-07-12] MEDS ORDERED: ONDANSETRON 4 MG/2 ML VIAL IVP STA (11:20)
--- NOTE | 2020-07-12 11:28 | ED ---
General Adult HPI - General Chief complaint: Dizziness Stated complaint: Oral pain Time Seen by Provider: 07/12/20 11:11 Source: patient, RN notes reviewed Mode of arrival: ambulatory Limitations: no limitations - History of Present Illness Initial comments: This a 70-year-old male presents emergency Department chief complaint dental infection, dizziness. Patient states that he's been dealing with abdominal infection last several days. He states that he finally got a hold of the dentist in which she went to [facility] to belt picker his prescription but states that he became very dizzy, lightheaded felt like using a pass out. he complains of severe right cheek, infraorbital ocular pain. Patient denies any headache and pressure neck pain or neck stiffness. He complains of chest pain shortness of breath. He states he does feel like his heart is skipping around. He does admit that he's had a lesion in the past for irregular heartbeat. Denies any leg panic swelling denies any other complaints. - Related Data Home Medications Medication Instructions Recorded Confirmed Orphenadrine Citrate [Orphenadrine 100 mg PO BID 12/08/17 05/07/20 Citrate ER] Adalimumab [Humira Pen] 40 mg SQ Q14D 04/25/18 05/07/20 Febuxostat [Uloric] 80 mg PO DAILY 05/05/18 05/07/20 Buprenorphine HCl/Naloxone HCl 1 film SL HS 12/12/18 05/07/20 [Suboxone 2 mg-0.5 mg Sl Film] Omeprazole 20 mg PO BID 12/12/18 05/07/20 Dfdxahr-Bzix-Uelw [id number] 2 tab PO DAILY PRN 01/12/20 05/07/20 [Excedrin] Multivitamins, Thera [Multivitamin 1 tab PO DAILY 02/27/20 05/07/20 (formulary)] methocarbamoL [Robaxin] 750 mg PO TID 02/27/20 05/07/20 Previous Rx's Medication Instructions Recorded Famotidine [Pepcid] 20 mg PO BID #30 tablet 03/01/20 amLODIPine [Norvasc] 10 mg PO DAILY tab 03/01/20 predniSONE 50 mg PO DAILY 14 Days #14 tablet 05/09/20 Allergies Allergy/AdvReac Type Severity Reaction Status Date / Time Iodinated Contrast Media Allergy Anaphylaxis Verified 07/12/20 10:56 [Iodinated Contrast Media - IV Dye] Review of Systems ROS Statement: Those systems with pertinent positive or pertinent negative responses have been documented in the HPI. ROS Other: All systems not noted in ROS Statement are negative. Past Medical History Past Medical History: GERD/Reflux, Hypertension, Rheumatoid Arthritis (RA), Skin Disorder, Supraventricular Tachycardia (SVT) Additional Past Medical History / Comment(s): hx CROHN'S (takes tresa), IBS, chronic diarrhea, migraines-, hx ulcers, anemia, gout, kidney stones, psoriasis, bilateral tinnitis., pinched sciatic nerve History of Any Multi-Drug Resistant Organisms: C-DIFF Date of last positivie culture/infection: stool MDRO Source:: 2016 Past Surgical History: Bowel Resection, Cardiac Ablation, Cholecystectomy, Heart Catheterization, Hernia Repair, Orthopedic Surgery, Tonsillectomy Additional Past Surgical History / Comment(s): partial gastrectomy (ulcers), bowel resections, fecal transplant, bilateral knee arthroscopic surgery, EGD/colonoscopies, R inguinal hernia repair, bilat cataract removal. Past Anesthesia/Blood Transfusion Reactions: Blood Transfusion Reaction, Motion Sickness Additional Past Anesthesia/Blood Transfusion Reaction / Comment(s): BLOOD TRANSFUSION- BROKE OUT IN HIVES age 21 Past Psychological History: No Psychological Hx Reported Smoking Status: Never smoker Past Alcohol Use History: Occasional Past Drug Use History: None Reported - Past Family History Mother Family Medical History: Pulmonary Embolus Additional Family Medical History / Comment(s): AGE 73-[place], STROKE DURING CARATID PROCEDURE General Exam Limitations: no limitations General appearance: alert, in no apparent distress Head exam: Present: atraumatic, normocephalic, normal inspection Eye exam: Present: normal appearance, PERRL, EOMI. Absent: scleral icterus, conjunctival injection, periorbital swelling ENT exam: Present: mucous membranes moist, TM's normal bilaterally. Absent: normal oropharynx (Infected tooth #6) Neck exam: Present: normal inspection, full ROM. Absent: tenderness, meningismus, lymphadenopathy Respiratory exam: Present: normal lung sounds bilaterally. Absent: respiratory distress, wheezes, rales, rhonchi, stridor Cardiovascular Exam: Present: tachycardia, normal heart sounds. Absent: regular rate, normal rhythm, systolic murmur, diastolic murmur, rubs, gallop, clicks GI/Abdominal exam: Present: soft, normal bowel sounds. Absent: distended, tenderness, guarding, rebound, rigid Course Vital Signs 07/12/20 07/12/20 07/12/20 10:56 11:21 12:30 Temperature 98 F Pulse Rate 59 L 130 H Pulse Rate [ 116 H Mud Trucker ] Respiratory 18 22 Rate Blood Pressure 185/75 195/102 O2 Sat by Pulse 98 99 Oximetry 07/12/20 13:15 Temperature Pulse Rate 103 H Pulse Rate [ Mud Trucker ] Respiratory 22 Rate Blood Pressure 213/99 O2 Sat by Pulse 99 Oximetry EKG Findings - EKG Comments: EKG Findings:: EKG performed at 11:04 A. fib rate of 110 OR 208 QRS 2018 QT/ QTC 356/41 Medical Decision Making - Medical Decision Making CT does show evidence of apical abscess. No drainable abscess. Patient's found to be in A. fib RVR. Patient we started on heparin, Cardizem with cardiology evaluation. - Lab Data Result diagrams: 07/12/20 11:44 07/12/20 11:44 Lab Results 07/12/20 07/12/20 07/12/20 Range/Units 11:44 11:44 11:44 WBC 18.4 H (3.8-10.6) k/uL RBC 4.44 (4.30-5.90) m/uL Hgb 12.0 L (13.0-17.5) gm/dL Hct 39.2 (39.0-53.0) % MCV 88.4 (80.0-100.0) fL MCH 27.0 (25.0-35.0) pg MCHC 30.5 L (31.0-37.0) g/dL RDW 15.5 (11.5-15.5) % Plt Count 323 (150-450) k/uL MPV 8.0 Neutrophils % 85 % Lymphocytes % 8 % Monocytes % 6 % Eosinophils % 1 % Basophils % 0 % Neutrophils # 15.6 H (1.3-7.7) k/uL Lymphocytes # 1.4 (1.0-4.8) k/uL Monocytes # 1.1 H (0-1.0) k/uL Eosinophils # 0.1 (0-0.7) k/uL Basophils # 0.0 (0-0.2) k/uL Hypochromasia Slight PT 9.5 (9.0-12.0) sec INR 0.9 (<1.2) APTT 20.4 L (22.0-30.0) sec Sodium 132 L (137-145) mmol/L Potassium 4.4 (3.5-5.1) mmol/L Chloride 98 (98-107) mmol/L Carbon Dioxide 20 L (22-30) mmol/L Anion Gap 14 mmol/L BUN 22 H (9-20) mg/dL Creatinine 1.39 H (0.66-1.25) mg/dL Est GFR (CKD-EPI)AfAm 59 (>60 ml/min/1.73 sqM) Est GFR (CKD-EPI)NonAf 51 (>60 ml/min/1.73 sqM) Glucose 196 H (74-99) mg/dL Plasma Lactic Acid Kal (0.7-2.0) mmol/L Calcium 9.8 (8.4-10.2) mg/dL Total Bilirubin 1.2 (0.2-1.3) mg/dL AST 38 (17-59) U/L ALT 25 (4-49) U/L Alkaline Phosphatase 75 (38-126) U/L Troponin I (0.000-0.034) ng/mL Total Protein 7.9 (6.3-8.2) g/dL Albumin 4.3 (3.5-5.0) g/dL 07/12/20 07/12/20 Range/Units 11:44 11:44 WBC (3.8-10.6) k/uL RBC (4.30-5.90) m/uL Hgb (13.0-17.5) gm/dL Hct (39.0-53.0) % MCV (80.0-100.0) fL MCH (25.0-35.0) pg MCHC (31.0-37.0) g/dL RDW (11.5-15.5) % Plt Count (150-450) k/uL MPV Neutrophils % % Lymphocytes % % Monocytes % % Eosinophils % % Basophils % % Neutrophils # (1.3-7.7) k/uL Lymphocytes # (1.0-4.8) k/uL Monocytes # (0-1.0) k/uL Eosinophils # (0-0.7) k/uL Basophils # (0-0.2) k/uL Hypochromasia PT (9.0-12.0) sec INR (<1.2) APTT (22.0-30.0) sec Sodium (137-145) mmol/L Potassium (3.5-5.1) mmol/L Chloride (98-107) mmol/L Carbon Dioxide (22-30) mmol/L Anion Gap mmol/L BUN (9-20) mg/dL Creatinine (0.66-1.25) mg/dL Est GFR (CKD-EPI)AfAm (>60 ml/min/1.73 sqM) Est GFR (CKD-EPI)NonAf (>60 ml/min/1.73 sqM) Glucose (74-99) mg/dL Plasma Lactic Acid Kal 2.6 H* (0.7-2.0) mmol/L Calcium (8.4-10.2) mg/dL Total Bilirubin (0.2-1.3) mg/dL AST (17-59) U/L ALT (4-49) U/L Alkaline Phosphatase (38-126) U/L Troponin I 0.047 H* (0.000-0.034) ng/mL Total Protein (6.3-8.2) g/dL Albumin (3.5-5.0) g/dL Critical Care Time Critical Care Time: Yes Total Critical Care Time: 35 Critical Care Time: Patient been in A. fib RVR patient showed him come Cardizem. Patient with histologic technician evaluation. Patient also treated for underlying Dental infection. Disposition Clinical Impression: Atrial fibrillation with RVR, Dental abscess Disposition: ADMITTED IP TO THIS HOSP Condition: Fair Referrals: Minh Saldaña MD [Primary Care Provider] - 1-2 days
[2020-07-12] MEDS: DILTIAZEM 125 MG in SODIUM CHLORIDE 0.9% 100 ML IV SCH (11:36)
[2020-07-12 11:54] LABS: Basophils % (A) 0 %; Eosinophils # (A) 0.1 k/uL (0-0.7); Eosinophils % (A) 1 %; HCT 39.2 % (39.0-53.0); Hypochromasia Slight; Lymphocytes # (A) 1.4 k/uL (1.0-4.8); Lymphocytes % (A) 8 %; MCHC 30.5 g/dL (31.0-37.0); MCV 88.4 fL (80.0-100.0); Monocytes # (A) 1.1 k/uL (0-1.0); Monocytes % (A) 6 %; Neutrophils # (A) 15.6 k/uL (1.3-7.7); Neutrophils % (A) 85 %; Platelet Count 323 k/uL (150-450); RBC 4.44 m/uL (4.30-5.90); RDW 15.5 % (11.5-15.5); WBC 18.4 k/uL (3.8-10.6)
[2020-07-12 12:06] LABS: Albumin 4.3 g/dL (3.5-5.0); Calcium 9.8 mg/dL (8.4-10.2); Potassium 4.4 mmol/L (3.5-5.1); Total Bilirubin 1.2 mg/dL (0.2-1.3); Total Protein 7.9 g/dL (6.3-8.2)
[2020-07-12 12:17] LABS: INR 0.9 (<1.2); Prothrombin Time 9.5 sec (9.0-12.0)
[2020-07-12 12:21] LABS: Partial Thromboplastin Time 20.4 sec (22.0-30.0)
[2020-07-12] MEDS ORDERED: HYDROmorphone 0.5 MG/0.5 ML SYRINGE IVP STA (12:34)
--- NOTE | 2020-07-12 12:39 | XR ---
EXAMINATION TYPE: XR chest 2V DATE OF EXAM: 07/12/2020 COMPARISON: 05/07/2020 HISTORY: Shortness of breath TECHNIQUE: Frontal and lateral views of the chest are obtained. FINDINGS: Scattered senescent parenchymal changes noted. Hyperinflation compatible with COPD. No evidence for infiltrate. No evidence for atelectasis. Stable granuloma right midlung zone. Stable left rib deformities which are chronic in nature. Heart size is stable. Mediastinal structures are stable and grossly unremarkable. No evidence for hilar prominence. Degenerative changes dorsal spine. IMPRESSION: 1. No evidence for acute pulmonary disease.
--- NOTE | 2020-07-12 13:27 | CT ---
EXAMINATION TYPE: CT facial bones wo con DATE OF EXAM: 07/12/2020 COMPARISON: None HISTORY: Dental infection CT DLP: 531.5 mGycm Automated exposure control for dose reduction was used. TECHNIQUE: CT scan of the sinuses is performed without contrast, axial images are obtained, coronal r eformatted images are also reviewed. Streak artifact from dental amalgam does limit evaluation. FINDINGS: The paranasal sinuses including the frontal, ethmoid, sphenoid, and maxillary sinuses bila terally are well-aerated without abnormal opacification. The ostiomeatal complex is patent bilateral ly on the coronal images. Visualized portion of mastoid air cells show no abnormal opacification. The globes are intact bilate rally. There is evidence of dental caries involving the right-sided lateral incisor and first bicuspid. Ther e is cortical erosion involving the lateral incisor on the right compatible with apical abscess and m ild adjacent soft tissue swelling. No drainable abscess seen. Apical abscess without cortical erosion involving the right first bicuspid. IMPRESSION: There is evidence of dental caries involving the right-sided lateral incisor and first bicuspid. Ther e is cortical erosion involving the lateral incisor on the right compatible with apical abscess and m ild adjacent soft tissue swelling. No drainable abscess seen. Apical abscess without cortical erosion involving the right first bicuspid.
[2020-07-12] MEDS ORDERED: hydrALAZINE HCL 20 MG/ML 1 ML VIAL IVP STA (13:28)
[2020-07-12] MEDS ORDERED: PIPERACILLIN-TAZOBACTAM 3.375 GM in SODIUM CHLORIDE 0.9% 100 ML IVPB STA (13:40)
[2020-07-12] MEDS ORDERED: NITROGLYCERIN SL TABS 0.4 MG TAB SUBLINGUAL PRN (14:02)
[2020-07-12] MEDS ORDERED: HEPARIN SODIUM,PORCINE 5,000 UNIT/ML 1 ML VIAL IV ONE (14:02)
[2020-07-12] MEDS ORDERED: HEPARIN SOD,PORK IN 0.45% NACL 25,000 UNIT in 0.45% NACL 1 250ML.BAG IV SCH (14:15)
[2020-07-12] MEDS ORDERED: HYDROmorphone 1 MG/ML 1 ML SYRINGE IVP STA (14:48)
[2020-07-12] MEDS ORDERED: LORazepam 2 MG/ML INJ IV PRN (15:33)
[2020-07-12] MEDS: amLODIPine 10 MG TAB PO SCH (17:56)
[2020-07-12] MEDS: HYDROmorphone 0.5 MG/0.5 ML SYRINGE IVP PRN ×2 (20:22→23:18)
[2020-07-12] MEDS: FAMOTIDINE 20 MG TAB PO SCH (20:22)
[2020-07-12] MEDS: CYCLOBENZAPRINE 10 MG TAB PO SCH (20:22)
[2020-07-12] MEDS: HEPARIN SODIUM,PORCINE 5,000 UNIT/ML 1 ML VIAL IV PRN (21:18)
[2020-07-12] MEDS: Buprenorphine Hcl/Naloxone Hcl [Suboxone 2 Mg-0.5 Mg Sl Film] SUBLINGUAL SCH (21:24)
--- NOTE | 2020-07-12 21:44 | P.HPIM ---
History of Present Illness H&P Date: 07/12/20 Chief Complaint: Dizziness and Tooth pain Mr. Rajan is a 70-year-old male with a past medical history of hypertension, rheumatoid arthritis, supraventricular tachycardia, history of Crohn's disease on Humira, IBS, chronic diarrhea, migraine headaches, gout, psoriasis, bilateral tinnitus, who follows with Dr. Saldaña as outpatient coming in with a chief complaint of dizziness. Patient states that he has been having tooth ache on the right upper jaw for the past couple of days and he was trying to reach his dentist. Finally he got hold of his dentist and he was sent a prescription to his [facility] pharmacy. 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 So he called EMS and was brought into the hospital. Patient states that he has pain in his right upper cheek going on for the past 2 to 3 days with the pain radiating to his lower jaw as well. Patient also started to have headaches. He complained of palpitations and he said on and off he feels that his heart beat has been beating fast and he has been feeling like this for the past 2 to 3 days. Patient denied having any weakness of his extremities. No blurring of his vision. No slurred speech. Patient states that he had felt some chest discomfort along with some difficulty in breathing. Patient denies having any orthopnea or PND. He states sometimes his legs swell but denies any acute change in his lower extremities. Patient denied having any fevers chills or rigors. No abdominal pain nausea vomiting or diarrhea. No dysuria or hematuria. In the ER patient had a chest x-ray done showing no acute cardiopulmonary process, hyperinflated lungs compatible with COPD. He had EKG done in the ER showing atrial fibrillation as per ED evaluation. At the time of admission his vitals temperature 98, heart rate 116 and regular, blood pressure 1 85/75 saturating at 98% on room air. On reviewing his labs white count of 18.4, hemoglobin 12, platelets 323. Sodium 132, potassium 4.4, chloride 98, bicarb 20, BUN 22, creatinine 1.39, lactic acid 2.6, troponin 0 0.047. Coronavirus negative. As the patient was found to be in A. fib and elevated troponins, patient was started on IV heparin and Cardizem drip with cardiology consult and admitted for further management. Review of Systems REVIEW OF SYSTEMS: CONSTITUTIONAL: No fever, fatigue or malaise HEENT: No recent visual problems or hearing problems. Denied any sore throat. CARDIOVASCULAR: As per HPI PULMONARY: no cough or SOB GASTROINTESTINAL: No diarrhea, no nausea, no vomiting, no abdominal pain. NEUROLOGICAL: Mild headaches, no weakness, no numbness. HEMATOLOGICAL: Denies any bleeding or petechiae. GENITOURINARY: Denies any burning micturition, frequency, or urgency. MUSCULOSKELETAL/RHEUMATOLOGICAL: H/o RA ENDOCRINE: Denies any polyuria or polydipsia. The rest of the 14-point review of systems is negative. Past Medical History Past Medical History: GERD/Reflux, Hypertension, Rheumatoid Arthritis (RA), Skin Disorder, Supraventricular Tachycardia (SVT) Additional Past Medical History / Comment(s): hx CROHN'S (takes tresa), IBS, chronic diarrhea, migraines-, hx ulcers, anemia, gout, kidney stones, psoriasis, bilateral tinnitis., pinched sciatic nerve History of Any Multi-Drug Resistant Organisms: C-DIFF Date of last positivie culture/infection: stool MDRO Source:: 2016 Past Surgical History: Bowel Resection, Cardiac Ablation, Cholecystectomy, Heart Catheterization, Hernia Repair, Orthopedic Surgery, Tonsillectomy Additional Past Surgical History / Comment(s): partial gastrectomy (ulcers), bowel resections, fecal transplant, bilateral knee arthroscopic surgery, EG D/colonoscopies, R inguinal hernia repair, bilat cataract removal. Past Anesthesia/Blood Transfusion Reactions: Blood Transfusion Reaction, Motion Sickness Additional Past Anesthesia/Blood Transfusion Reaction / Comment(s): BLOOD TRANSFUSION- BROKE OUT IN HIVES age 21 Past Psychological History: No Psychological Hx Reported Additional Psychological History / Comment(s): denies Smoking Status: Never smoker Past Alcohol Use History: Occasional Past Drug Use History: None Reported Additional Drug Use History / Comment(s): Hx of opiate dependency-on suboxone. - Past Family History Mother Family Medical History: Pulmonary Embolus Additional Family Medical History / Comment(s): AGE 73-[place], STROKE DURING CARATID PROCEDURE Medications and Allergies Home Medications Medication Instructions Recorded Confirmed Type Orphenadrine Citrate [Orphenadrine 100 mg PO BID 12/08/17 07/12/20 History Citrate ER] Adalimumab [Humira Pen] 40 mg SQ Q14D 04/25/18 07/12/20 History Febuxostat [Uloric] 80 mg PO DAILY 05/05/18 07/12/20 History Buprenorphine HCl/Naloxone HCl 1 film SL HS 12/12/18 07/12/20 History [Suboxone 2 mg-0.5 mg Sl Film] Omeprazole 20 mg PO BID 12/12/18 07/12/20 History Sfmbibd-Svep-Dbim [id number] 2 tab PO DAILY PRN 01/12/20 07/12/20 History [Excedrin] Multivitamins, Thera [Multivitamin 1 tab PO DAILY 02/27/20 07/12/20 History (formulary)] Famotidine [Pepcid] 20 mg PO BID #30 tablet 03/01/20 07/12/20 Rx amLODIPine [Norvasc] 10 mg PO DAILY tab 03/01/20 07/12/20 Rx Allergies Allergy/AdvReac Type Severity Reaction Status Date / Time Iodinated Contrast Media Allergy Anaphylaxis Verified 07/12/20 14:21 [Iodinated Contrast Media - IV Dye] Physical Exam Vitals: Vital Signs Temp Pulse Pulse Resp BP BP Pulse Ox 07/12/20 16:00 97.4 F L 64 18 177/103 99 07/12/20 15:46 98.9 F 118 H 20 158/86 99 07/12/20 15:00 117 H 20 168/76 99 07/12/20 14:31 115 H 20 146/96 99 07/12/20 14:15 115 H 20 170/78 99 07/12/20 14:00 115 H 20 200/106 99 07/12/20 13:15 103 H 22 213/99 99 07/12/20 12:30 130 H 22 195/102 99 07/12/20 11:21 116 H 07/12/20 10:56 98 F 59 L 18 185/75 98 Intake and Output 07/12/20 07/12/20 07/12/20 06:59 14:59 22:59 Other: Weight 79.379 kg PHYSICAL EXAMINATION: GENERAL: The patient is alert and oriented x3, not in any acute distress. HEENT: Pupils are round and equally reacting to light. EOMI. No scleral icterus.No conjunctival pallor. + tenderness in the right upper jaw. Mild swelling over the upper jaw. CARDIOVASCULAR: Tachycardia PULMONARY: Chest is clear to auscultation, no wheezing or crackles. ABDOMEN: Soft, nontender, nondistended, normoactive bowel sounds. No palpable organomegaly. MUSCULOSKELETAL: No joint swellingor deformities EXTREMITIES: No cyanosis, clubbing. No pedal edema NEUROLOGICAL: Gross neurological examination did not reveal any focal deficits. SKIN: No rashes. Results CBC & Chem 7: 07/13/20 03:47 07/13/20 03:47 Labs: Abnormal Lab Results - Last 24 Hours (Table) 07/12/20 07/12/20 07/12/20 Range/Units 11:44 11:44 11:44 WBC 18.4 H (3.8-10.6) k/uL Hgb 12.0 L (13.0-17.5) gm/dL MCHC 30.5 L (31.0-37.0) g/dL Neutrophils # 15.6 H (1.3-7.7) k/uL Monocytes # 1.1 H (0-1.0) k/uL APTT 20.4 L (22.0-30.0) sec Sodium 132 L (137-145) mmol/L Carbon Dioxide 20 L (22-30) mmol/L BUN 22 H (9-20) mg/dL Creatinine 1.39 H (0.66-1.25) mg/dL Glucose 196 H (74-99) mg/dL Plasma Lactic Acid Kal (0.7-2.0) mmol/L Troponin I (0.000-0.034) ng/mL 07/12/20 07/12/20 07/12/20 Range/Units 11:44 11:44 14:30 WBC (3.8-10.6) k/uL Hgb (13.0-17.5) gm/dL MCHC (31.0-37.0) g/dL Neutrophils # (1.3-7.7) k/uL Monocytes # (0-1.0) k/uL APTT (22.0-30.0) sec Sodium (137-145) mmol/L Carbon Dioxide (22-30) mmol/L BUN (9-20) mg/dL Creatinine (0.66-1.25) mg/dL Glucose (74-99) mg/dL Plasma Lactic Acid Kal 2.6 H* (0.7-2.0) mmol/L Troponin I 0.047 H* 0.051 H* (0.000-0.034) ng/mL Thrombosis Risk Factor Assmnt - Choose All That Apply Each Risk Factor Represents 2 Points: Age 61-74 years Thrombosis Risk Factor Assessment Total Risk Factor Score: 2 Thrombosis Risk Factor Assessment Level: Low Risk Assessment and Plan Assessment: ASSESSMENT Sepsis - possible source - dental infection /abscess Acute kidney injury - pre- renal - due to above Atrial Tachycardia Hypertension History of supraventricular tachycardia Crohn's disease on Humira Chronic diarrhea Migraine headaches History of gout History of nephrolithiasis History of psoriasis History of bilateral tinnitus History of bowel resection History of cardiac ablation Partial gastrectomy history History of fecal transplant Right inguinal hernia repair History of bilateral knee arthroscopy scopic surgery PLAN: IV heparin and Cardizem drip to be continued until Cardiology evaluation, in view of elevated troponins and high BP . Patient had a CT of the face showing dental caries involving the right sided lateral incisors and first bicuspid. There is cortical erosion involving the lateral incisors on the right compatible with apical abscess and mild adjacent soft tissue swelling. No drainable abscess seen. Apical abscess without cortical erosion involving the right first bicuspid. So the patient was started on Unasyn which will be continued. Will consult ID Dr. Mcclure for further recommendation of the antibiotic. His lactic acid trended down from 2.6 to 1.6. Blood cultures currently pending. Patient restarted on his home medications. Further recommendations to follow depending on the progress of the patient. Overall prognosis is guarded.
[2020-07-12] MEDS: PIPERACILLIN-TAZOBACTAM 3.375 GM in SODIUM CHLORIDE 0.9% 100 ML IVPB SCH (23:31)
[2020-07-13] MEDS: HYDROmorphone 0.5 MG/0.5 ML SYRINGE IVP PRN ×7 (02:10→22:35)
[2020-07-13 04:40] LABS: Basophils % (A) 0 %; Eosinophils # (A) 0.1 k/uL (0-0.7); Eosinophils % (A) 1 %; HCT 31.8 % (39.0-53.0); HGB 10.2 gm/dL (13.0-17.5); Lymphocytes % (A) 19 %; MCH 28.2 pg (25.0-35.0); MCHC 32.2 g/dL (31.0-37.0); MCV 87.7 fL (80.0-100.0); Mean Platelet Volume 8.8; Monocytes # (A) 0.8 k/uL (0-1.0); Monocytes % (A) 7 %; Neutrophils # (A) 7.3 k/uL (1.3-7.7); Neutrophils % (A) 71 %; Platelet Count 201 k/uL (150-450); RBC 3.62 m/uL (4.30-5.90); RDW 15.3 % (11.5-15.5); WBC 10.3 k/uL (3.8-10.6)
[2020-07-13 04:52] LABS: Albumin 3.3 g/dL (3.5-5.0); Calcium 8.6 mg/dL (8.4-10.2); Total Bilirubin 0.8 mg/dL (0.2-1.3); Total Protein 6.2 g/dL (6.3-8.2)
[2020-07-13] MEDS: HEPARIN SODIUM,PORCINE 5,000 UNIT/ML 1 ML VIAL IV PRN (05:09)
[2020-07-13] MEDS: DILTIAZEM 125 MG in SODIUM CHLORIDE 0.9% 100 ML IV SCH (06:56)
[2020-07-13] MEDS: PIPERACILLIN-TAZOBACTAM 3.375 GM in SODIUM CHLORIDE 0.9% 100 ML IVPB SCH ×2 (07:42→15:37)
[2020-07-13] MEDS: allopurinoL 100 MG TAB PO SCH ×2 (07:46→20:17)
[2020-07-13] MEDS: MULTIVITAMINS, THERA 1 EACH TAB PO SCH (07:46)
[2020-07-13] MEDS: FAMOTIDINE 20 MG TAB PO SCH ×2 (07:46→20:17)
[2020-07-13] MEDS: CYCLOBENZAPRINE 10 MG TAB PO SCH ×2 (07:46→20:17)
[2020-07-13] MEDS: amLODIPine 10 MG TAB PO SCH (07:46)
[2020-07-13] MEDS: METOPROLOL SUCCINATE (ER) 25 MG TAB.ER.24H PO SCH (11:37)
--- NOTE | 2020-07-13 12:06 | P.CRDCN ---
History of Present Illness Consult date: 07/13/20 History of present illness: HISTORY OF PRESENT ILLNESS: This is a 70-year-old male with a past medical history significant for S/P T with ablation 30 years ago, hypertension, rheumatoid arthritis, and GERD. 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 We have been asked to see the patient in consultation for A. fib with RVR. Patient examined at the bedside. Patient initially presented to the hospital secondary to dental pain. Patient was placed on antibiotics by his dentist on an outpatient basis. Patient reports the pain increased and he began feeling dizzy so he came to the emergency room for further evaluation. In the emergency room an EKG was completed which was t hought to be A. fib with RVR. The patient was started on IV Cardizem and IV heparin. Further review of EKGs reveals atrial tachycardia, rather than atrial fibrillation. EKG reveals atrial tachycardia Chest xray negative for acute process Laboratory data: WBC 10.3. Hemoglobin 10.2. Platelet count 201. Sodium 133. Potassium 4.0. BUN 18. Creatinine 1.18. Lactic acid 1.6. Troponin 0.047. 0 .051. 0.065. Current home cardiac medications include amlodipine 10 mg daily REVIEW OF SYSTEMS: At the time of my exam: CONSTITUTIONAL: Denies fever or chills. HEENT: Denies blurred vision, vision changes, or eye pain. Denies hemoptysis. Reports dental pain. CARDIOVASCULAR: Denies chest pain. Denies orthopnea. Denies PND. Denies palpitations RESPIRATORY: Denies shortness of breath. GASTROINTESTINAL: Denies abdominal pain. Denies nausea or vomiting. HEMATOLOGIC: Denies bleeding disorders. GENITOURINARY: Denies any blood in urine. SKIN: Denies pruitis. Denies rash. PHYSICAL EXAM: VITAL SIGNS: Reviewed. GENERAL: Well-developed in no acute distress. HEENT: Head is normocephalic. Pupils are equal, round. Sclerae anicteric. Mucous membranes of the mouth are moist. Neck supple. No JVD or thyromegaly LUNGS: Respirations even and unlabored. Lungs essentially clear to auscultation bilaterally. HEART: Regular rate and rhythm. S1 and S2 heard. ABDOMEN: Soft. Nondistended. Nontender. EXTREMITIES: Normal range of motion. No clubbing or cyanosis. Peripheral pulses intact. No lower extremity edema NEUROLOGIC: Awake and alert. Oriented x 3. ASSESSMENT: Atrial fibrillation, ruled out, EKG reveals atrial tachycardia Dental infection, possible abscess Abnormal troponins, may be secondary to infectious process, no evidence of myocardial injury History of SVT with ablation, 30 years ago Hypertension PLAN: Obtain 2-D echo to assess cardiac structure and function Continue home dose of amlodipine Begin metoprolol succinate 25 mg daily Discontinue IV heparin Discontinue IV Cardizem Patient is currently stable from a cardiac perspective. He may follow up outpatient with Dr. Ram Nurse practitioner note has been reviewed by physician. Signing provider agrees with the documented findings, assessment, and plan of care. Past Medical History Past Medical History: GERD/Reflux, Hypertension, Rheumatoid Arthritis (RA), Skin Disorder, Supraventricular Tachycardia (SVT) Additional Past Medical History / Comment(s): hx CROHN'S (takes tresa), IBS, chronic diarrhea, migraines-, hx ulcers, anemia, gout, kidney stones, psoriasis, bilateral tinnitis., pinched sciatic nerve History of Any Multi-Drug Resistant Organisms: C-DIFF Date of last positivie culture/infection: stool MDRO Source:: 2016 Past Surgical History: Bowel Resection, Cardiac Ablation, Cholecystectomy, Heart Catheterization, Hernia Repair, Orthopedic Surgery, Tonsillectomy Additional Past Surgical History / Comment(s): partial gastrectomy (ulcers), bowel resections, fecal transplant, bilateral knee arthroscopic surgery, EGD/colonoscopies, R inguinal hernia repair, bilat cataract removal. Past Anesthesia/Blood Transfusion Reactions: Blood Transfusion Reaction, Motion Sickness Additional Past Anesthesia/Blood Transfusion Reaction / Comment(s): BLOOD TRANSFUSION- BROKE OUT IN HIVES age 21 Past Psychological History: No Psychological Hx Reported Additional Psychological History / Comment(s): denies Smoking Status: Never smoker Past Alcohol Use History: Occasional Past Drug Use History: None Reported Additional Drug Use History / Comment(s): Hx of opiate dependency-on suboxone. - Past Family History Mother Family Medical History: Pulmonary Embolus Additional Family Medical History / Comment(s): AGE 73-[place], STROKE DURING CARATID PROCEDURE Medications and Allergies Home Medications Medication Instructions Recorded Confirmed Type Orphenadrine Citrate [Orphenadrine 100 mg PO BID 12/08/17 07/12/20 History Citrate ER] Adalimumab [Humira Pen] 40 mg SQ Q14D 04/25/18 07/12/20 History Febuxostat [Uloric] 80 mg PO DAILY 05/05/18 07/12/20 History Buprenorphine HCl/Naloxone HCl 1 film SL HS 12/12/18 07/12/20 History [Suboxone 2 mg-0.5 mg Sl Film] Omeprazole 20 mg PO BID 12/12/18 07/12/20 History Ztcwbvl-Nvuz-Seku [id number] 2 tab PO DAILY PRN 01/12/20 07/12/20 History [Excedrin] Multivitamins, Thera [Multivitamin 1 tab PO DAILY 02/27/20 07/12/20 History (formulary)] Famotidine [Pepcid] 20 mg PO BID #30 tablet 03/01/20 07/12/20 Rx amLODIPine [Norvasc] 10 mg PO DAILY tab 03/01/20 07/12/20 Rx Allergies Allergy/AdvReac Type Severity Reaction Status Date / Time Iodinated Contrast Media Allergy Anaphylaxis Verified 07/12/20 14:21 [Iodinated Contrast Media - IV Dye] Physical Exam Vitals: Vital Signs Temp Pulse Pulse Resp BP BP Pulse Ox 07/13/20 11:39 98 F 70 18 124/74 95 07/13/20 07:40 97.9 F 83 18 129/80 95 07/13/20 04:00 98.8 F 83 16 158/77 97 07/13/20 02:00 18 07/13/20 00:00 97.9 F 84 18 155/77 97 07/12/20 19:48 99.1 F 98 18 139/77 98 07/12/20 16:00 97.4 F L 64 18 177/103 99 07/12/20 15:46 98.9 F 118 H 20 158/86 99 07/12/20 15:00 117 H 20 168/76 99 07/12/20 14:31 115 H 20 146/96 99 07/12/20 14:15 115 H 20 170/78 99 07/12/20 14:00 115 H 20 200/106 99 07/12/20 13:15 103 H 22 213/99 99 07/12/20 12:30 130 H 22 195/102 99 Intake and Output 07/12/20 07/13/20 07/13/20 22:59 06:59 14:59 Intake Total 312.071 190.137 0 Balance 312.071 190.137 0 Intake: Intake, IV Titration 62.071 190.137 Amount Diltiazem 125 mg In 96.667 Sodium Chloride 0.9% 100 ml @ 5 MG/HR 5 mls/hr IV .Q24H GABE Rx#:[id number] Heparin Sod,Pork in 0.45% 62.071 93.47 NaCl 25,000 unit In 0.45 % NaCl 1 250ml.bag @ 12 UNITS/KG/HR 9.525 mls/hr IV .Q24H GABE Rx#: [id number] Oral 250 0 Other: Voiding Method Toilet Toilet # Voids 1 1 Weight 78.5 kg Results 07/13/20 03:47 07/13/20 03:47 Cardiac Enzymes 07/12/20 07/12/20 07/12/20 Range/Units 11:44 11:44 14:30 AST 38 (17-59) U/L Troponin I 0.047 H* 0.051 H* (0.000-0.034) ng/mL 07/12/20 07/13/20 Range/Units 17:26 03:47 AST 35 (17-59) U/L Troponin I 0.065 H* (0.000-0.034) ng/mL Coagulation 07/12/20 07/12/20 07/13/20 Range/Units 11:44 20:31 03:47 PT 9.5 (9.0-12.0) sec APTT 20.4 L 28.8 38.6 H (22.0-30.0) sec CBC 07/13/20 Range/Units 03:47 WBC 10.3 (3.8-10.6) k/uL RBC 3.62 L (4.30-5.90) m/uL Hgb 10.2 L (13.0-17.5) gm/dL Hct 31.8 L (39.0-53.0) % Plt Count 201 (150-450) k/uL Comprehensive Metabolic Panel 07/12/20 07/13/20 Range/Units 11:44 03:47 Sodium 132 L 133 L (137-145) mmol/L Potassium 4.4 4.0 (3.5-5.1) mmol/L Chloride 98 104 (98-107) mmol/L Carbon Dioxide 20 L 20 L (22-30) mmol/L BUN 22 H 18 (9-20) mg/dL Creatinine 1.39 H 1.18 (0.66-1.25) mg/dL Glucose 196 H 140 H (74-99) mg/dL Calcium 9.8 8.6 (8.4-10.2) mg/dL AST 38 35 (17-59) U/L ALT 25 25 (4-49) U/L Alkaline Phosphatase 75 75 (38-126) U/L Total Protein 7.9 6.2 L (6.3-8.2) g/dL Albumin 4.3 3.3 L (3.5-5.0) g/dL Current Medications Generic Name Dose Route Start Last Admin Trade Name Freq PRN Reason Stop Dose Admin Allopurinol 200 mg 07/13/20 09:00 07/13/20 07:46 Allopurinol 100 Mg Tab PO 200 mg BID GABE Administration Amlodipine Besylate 10 mg 07/12/20 17:15 07/13/20 07:46 Amlodipine 10 Mg Tab PO 10 mg DAILY GABE Administration Cyclobenzaprine HCl 10 mg 07/12/20 21:00 07/13/20 07:46 Cyclobenzaprine 10 Mg Tab PO 10 mg BID GABE Administration Famotidine 20 mg 07/12/20 21:00 07/13/20 07:46 Famotidine 20 Mg Tab PO 20 mg BID GABE Administration Hydromorphone HCl 0.5 mg 07/12/20 14:48 07/13/20 11:41 Hydromorphone 0.5 Mg/0.5 Ml Syringe IVP 0.5 mg Q3HR PRN Administration Pain Piperacillin Sod/Tazobactam 100 mls @ 25 mls/hr 07/13/20 00:00 07/13/20 07:42 Sod 3.375 gm/ Sodium Chloride IVPB 25 mls/hr Q8HR GABE Administration Lorazepam 1 mg 07/12/20 15:33 07/12/20 16:44 Lorazepam 2 Mg/Ml Inj IV 1 mg Q4HR PRN Administration Insomnia Metoprolol Succinate 25 mg 07/13/20 10:45 07/13/20 11:37 Metoprolol Succinate (Er) 25 Mg Tab.Er.24h PO 25 mg DAILY GABE Administration Multivitamins 1 each 07/13/20 09:00 07/13/20 07:46 Multivitamins, Thera 1 Each Tab PO 1 each DAILY GABE Administration Nitroglycerin 0.4 mg 07/12/20 14:02 Nitroglycerin Sl Tabs 0.4 Mg Tab SUBLINGUAL Q5M PRN Chest Pain Buprenorphine Hcl/ 1 film 07/12/20 21:00 07/12/20 21:24 Naloxone Hcl [ SUBLINGUAL Not Given Suboxone 2 Mg-0.5 Mg HS GABE Sl Film] Intake and Output 07/12/20 07/13/20 07/13/20 22:59 06:59 14:59 Intake Total 312.071 190.137 0 Balance 312.071 190.137 0 Intake: Intake, IV Titration 62.071 190.137 Amount Diltiazem 125 mg In 96.667 Sodium Chloride 0.9% 100 ml @ 5 MG/HR 5 mls/hr IV .Q24H GABE Rx#:[id number] Heparin Sod,Pork in 0.45% 62.071 93.47 NaCl 25,000 unit In 0.45 % NaCl 1 250ml.bag @ 12 UNITS/KG/HR 9.525 mls/hr IV .Q24H GABE Rx#: [id number] Oral 250 0 Other: Voiding Method Toilet Toilet # Voids 1 1 Weight 78.5 kg 07/13/20 03:47 07/13/20 03:47
[2020-07-13] MEDS ORDERED: CALCIUM CARBONATE 500 MG CHEWABLE PO PRN (15:45)
[2020-07-13] MEDS: AMPICILLIN-SULBACTAM 3 GM in SODIUM CHLORIDE 0.9% 100 ML IVPB SCH (18:23)
[2020-07-13] MEDS: Buprenorphine Hcl/Naloxone Hcl [Suboxone 2 Mg-0.5 Mg Sl Film] SUBLINGUAL SCH (21:26)
[2020-07-14] MEDS: AMPICILLIN-SULBACTAM 3 GM in SODIUM CHLORIDE 0.9% 100 ML IVPB SCH ×5 (00:01→23:14)
--- NOTE | 2020-07-14 01:50 | P.PN ---
Subjective Progress Note Date: 07/13/20 Principal diagnosis: A fib with RVR , Dental Abscess Mr. Rajan is a 70-year-old male with a past medical history of hypertension, rheumatoid arthritis, supraventricular tachycardia, history of Crohn's disease on Humira, IBS, chronic diarrhea, migraine headaches, gout, psoriasis, bilateral tinnitus, who follows with Dr. Saldaña as outpatient coming in with a chief c omplaint of dizziness. Patient states that he has been having tooth ache on the right upper jaw for the past couple of days and he was trying to reach his dentist. Finally he got hold of his dentist and he was sent a prescription to his [facility] pharmacy. When he went to scrap picker his prescription at [facility] patient became very lightheaded and dizzy and felt like passing out. So he called EMS and was brought into the hospital. Patient states that he has pain in his right upper cheek going on for the past 2 to 3 days with the pain radiating to his lower jaw as well. Patient also started to have headaches. He complained of palpitations and he said on and off he feels that his heart beat has been beating fast and he has been feeling like this for the past 2 to 3 days. Patient denied having any weakness of his extremities. No blurring of his vision. No slurred speech. Patient states that he had felt some chest discomfort along with some difficulty in breathing. Patient denies having any orthopnea or PND. He states sometimes his legs swell but denies any acute change in his lower extremities. Patient denied having any fevers chills or rigors. No abdominal pain nausea vomiting or diarrhea. No dysuria or hematuria. In the ER patient had a chest x-ray done showing no acute cardiopulmonary process, hyperinflated lungs compatible with COPD. He had EKG done in the ER showing atrial fibrillation as per ED evaluation. At the time of admission his vitals temperature 98, heart rate 116 and regular, blood pressure 1 85/75 saturating at 98% on room air. On reviewing his labs white count of 18.4, hemoglobin 12, platelets 323. Sodium 132, potassium 4.4, chloride 98, bicarb 2 0, BUN 22, creatinine 1.39, lactic acid 2.6, troponin 0 0.047. Coronavirus negative. As the patient was found to be in A. fib and elevated troponins, patient was started on IV heparin and Cardizem drip with cardiology consult and admitted for further management. On 07/13/2020 -patient seen and examined at bedside. Cardiology evaluated the patient, evaluated the EKG and said that the patient had atrial tachycardia not atrial fibrillation. They recommended an echocardiogram. Patient continues to be on Unasyn for possible dental infection/abscess. He still continues to have pain on the right upper jaw. He denies having any fevers chills or rigors. No chest pain or palpitations. States that his dizziness is better. On reviewing vitals temperature 98.8, heart rate 75, respiratory 17, blood pressure 123/70 saturating at 97% on room air. Reviewing the labs white count of 10.3 hemoglob in 10.2 platelets 201. Sodium 133, potassium 4, chloride 104, bicarb 20, BUN 18, creatinine 1.18. Active Medications Allopurinol (Allopurinol 100 Mg Tab) 200 mg PO BID [facility] Last Admin: 07/13/20 20:17 Dose: 200 mg Documented by: Amlodipine Besylate (Amlodipine 10 Mg Tab) 10 mg PO DAILY [facility] Last Admin: 07/13/20 07:46 Dose: 10 mg Documented by: Calcium Carbonate/Glycine (Calcium Carbonate 500 Mg Chewable) 500 mg PO QID PRN PRN Reason: Heartburn Last Admin: 07/13/20 15:49 Dose: 500 mg Documented by: Cyclobenzaprine HCl (Cyclobenzaprine 10 Mg Tab) 10 mg PO BID [facility] Last Admin: 07/13/20 20:17 Dose: 10 mg Documented by: Famotidine (Famotidine 20 Mg Tab) 20 mg PO BID [facility] Last Admin: 07/13/20 20:17 Dose: 20 mg Documented by: Hydromorphone HCl (Hydromorphone 0.5 Mg/0.5 Ml Syringe) 0.5 mg IVP Q3HR PRN PRN Reason: Pain Last Admin: 07/13/20 22:35 Dose: 0.5 mg Documented by: Ampicillin Sodium/Sulbactam (Sodium 3 gm/ Sodium Chloride) 100 mls @ 200 mls/hr IVPB Q6HR [facility] Last Admin: 07/14/20 00:01 Dose: Not Given Documented by: Lorazepam (Lorazepam 2 Mg/Ml Inj) 1 mg IV Q4HR PRN PRN Reason: Insomnia Last Admin: 07/12/20 16:44 Dose: 1 mg Documented by: Metoprolol Succinate (Metoprolol Succinate (Er) 25 Mg Tab.Er.24h) 25 mg PO DAILY [facility] Last Admin: 07/13/20 11:37 Dose: 25 mg Documented by: Multivitamins (Multivitamins, Thera 1 Each Tab) 1 each PO DAILY [facility] Last Admin: 07/13/20 07:46 Dose: 1 each Documented by: Nitroglycerin (Nitroglycerin Sl Tabs 0.4 Mg Tab) 0.4 mg SUBLINGUAL Q5M PRN PRN Reason: Chest Pain Buprenorphine Hcl/Naloxone Hcl [ Suboxone 2 Mg-0.5 Mg Sl Film] 1 film SUBLINGUAL HS [facility] Last Admin: 07/13/20 21:26 Dose: Not Given Documented by: Objective - Vital Signs Vital signs: Vital Signs Temp 98 F 07/13/20 11:39 Pulse 70 07/13/20 11:39 Resp 18 07/13/20 11:39 BP 124/74 07/13/20 11:39 Pulse Ox 95 07/13/20 11:39 Intake & Output 07/12/20 07/13/20 07/13/20 18:59 06:59 18:59 Intake Total 250 252.208 0 Balance 250 252.208 0 Weight 79.379 kg 78.5 kg Intake: Intake, IV Titration 252.208 Amount Diltiazem 125 mg In 96.667 Sodium Chloride 0.9% 100 ml @ 5 MG/HR 5 mls/hr IV .Q24H [facility] Rx#:[id number] Heparin Sod,Pork in 0.45% 155.541 NaCl 25,000 unit In 0.45 % NaCl 1 250ml.bag @ 12 UNITS/KG/HR 9.525 mls/hr IV .Q24H [facility] Rx#: [id number] Oral 250 0 Other: Voiding Method Toilet # Voids 1 - Exam GENERAL: The patient is alert and oriented x3, not in any acute distress. HEENT: Pupils are round and equally reacting to light. EOMI. No scleral icterus.No conjunctival pallor. + tenderness in the right upper jaw. CARDIOVASCULAR: Tachycardia PULMONARY: Chest is clear to auscultation, no wheezing or crackles. ABDOMEN: Soft, nontender, nondistended, normoactive bowel sounds. No palpable organomegaly. MUSCULOSKELETAL: No joint swellingor deformities EXTREMITIES: No cyanosis, clubbing. No pedal edema NEUROLOGICAL: Gross neurological examination did not reveal any focal deficits. SKIN: No rashes. - Labs CBC & Chem 7: 07/13/20 03:47 07/13/20 03:47 Labs: Abnormal Lab Results - Last 24 Hours (Table) 07/12/20 07/12/20 07/13/20 Range/Units 14:30 17:26 03:47 RBC 3.62 L (4.30-5.90) m/uL Hgb 10.2 L (13.0-17.5) gm/dL Hct 31.8 L (39.0-53.0) % APTT (22.0-30.0) sec Sodium (137-145) mmol/L Carbon Dioxide (22-30) mmol/L Glucose (74-99) mg/dL Troponin I 0.051 H* 0.065 H* (0.000-0.034) ng/mL Total Protein (6.3-8.2) g/dL Albumin (3.5-5.0) g/dL 07/13/20 07/13/20 Range/Units 03:47 03:47 RBC (4.30-5.90) m/uL Hgb (13.0-17.5) gm/dL Hct (39.0-53.0) % APTT 38.6 H (22.0-30.0) sec Sodium 133 L (137-145) mmol/L Carbon Dioxide 20 L (22-30) mmol/L Glucose 140 H (74-99) mg/dL Troponin I (0.000-0.034) ng/mL Total Protein 6.2 L (6.3-8.2) g/dL Albumin 3.3 L (3.5-5.0) g/dL Assessment and Plan Assessment: ASSESSMENT Sepsis - possible source - dental infection /abscess Acute kidney injury - Creatinine trending down Atrial fibrillation Hypertension History of supraventricular tachycardia Crohn's disease on Humira Chronic diarrhea Migraine headaches History of gout History of nephrolithiasis History of psoriasis History of bilateral tinnitus History of bowel resection History of cardiac ablation Partial gastrectomy history History of fecal transplant Right inguinal hernia repair History of bilateral knee arthroscopy scopic surgery PLAN: IV heparin and Cardizem drip have been discontnued by cardiology and they recommended an Echo. Patient had a CT of the face showing dental caries involving the right sided lateral incisors and first bicuspid. There is cortical erosion involving the lateral incisors on the right compatible with apical abscess and mild adjacent soft tissue swelling. No drainable abscess seen. Apical abscess without cortical erosion involving the right first bicuspid. So the patient was started on Unasyn which will be continued. Consulted ID Dr. Mcclure for further recommendation of the antibiotic. His lactic acid trended down from 2.6 to 1.6. Blood cultures currently pending. Dental consult pending. Continue with current regimen. GI/ DVT prophylaxsis. Further recommendations to follow depending on the progress of the patient. Overall prognosis is guarded.
[2020-07-14] MEDS: HYDROmorphone 0.5 MG/0.5 ML SYRINGE IVP PRN ×5 (03:07→21:16)
--- NOTE | 2020-07-14 05:45 | CONS ---
CONSULTATION DATE OF SERVICE: 07/13/2020 REASON FOR CONSULTATION: Dental abscess. HISTORY OF PRESENT ILLNESS: The patient is a 70-year-old male with multiple comorbidities, presenting to the ER on the for evaluation of dizziness. Apparently the patient has been dealing with infected tooth to the right upper jaw area for the last couple of days. Patient was trying to arrange his dentist and finally got ahold of his dentist and prescription was called to [facility]. When the patient went to pick up operator the prescription, he felt lightheaded and dizzy and felt like he was going to pass out. EMS was called and the patient was brought into the hospital. The patient is complaining of pain to the right upper cheek area to be more of a throbbing, intensity 4-5 out of 10 and no radiation with associated swelling of the right side of the cheek. The patient denies having difficulty swallowing or difficulty breathing. No nausea, no vomiting. No abdominal pain or any diarrhea. With these symptoms, the patient was evaluated by the ER physician. On arrival to the ER, the patient was afebrile. The patient did have a white count of 18.4. Troponins were elevated. The patient did have blood cultures drawn. The patient did have a facial CT completed which shows evidence of dental caries involving the right-sided lateral incisor and 1st bicuspid with some soft tissue swelling. The patient was started on Zosyn. He was admitted to the hospital. Infectious Disease was consulted for further management of antibiotic therapy. REVIEW OF SYSTEMS: Positive points have been mentioned in HPI. Rest of the systems are negative. PAST MEDICAL HISTORY: Gastroesophageal reflux disease, hypertension, rheumatoid arthritis, SVT and Crohn disease. Also history of C difficile colitis. PS HISTORY: Bowel resection, cardiac ablation, cholecystectomy, heart catheterization, hernia repair, tonsillectomy. SOCIAL HISTORY: No history of smoking. Occasionally drinks. No drug use. FAMILY HISTORY: Mother history of PE. ALLERGIES: IODINATED CONTRAST MEDIA. MEDICATIONS: The patient is currently on Zyloprim, Norvasc, Zosyn, Tums, Flexeril, Pepcid, Dilaudid, Ativan, Toprol-XL, Theragran, , Suboxone. PHYSICAL EXAMINATION: VITAL SIGNS: Blood pressure 123/70 with a pulse of 75, temperature 98, he is 97% on room air. GENERAL DESCRIPTION: Patient is an elderly male lying in bed in no distress. No tachypnea or accessory muscles of respiration use. HEENT: Examination shows no pallor or scleral icterus. The patient did have right- sided cheek swelling, no redness. Examination of the oral cavity shows upper dental caries and surrounding swelling. NECK: Trachea central, no thyromegaly. LUNGS: Unlabored breathing, clear to auscultation. No wheeze or crackle. HEART: S1-S2, regular rate and rhythm. ABDOMEN: Soft, no tenderness. No guarding or rigidity. EXTREMITIES: No edema of the feet. SKIN: No rash or mass palpable. NEUROLOGICAL: Patient is awake, alert, oriented times three. Mood and affect normal. LABS: Hemoglobin is 12.7, white count 15.4, BUN of 18, creatinine 1.18. Troponin mildly elevated. Blood culture negative so far. CT report as mentioned above. DIAGNOSTIC IMPRESSION: Patient admitted to the hospital with right-sided cheek and jaw pain and this patient did have significant dental caries and dental infection with small abscess. Will need to cover for the oral rogers which is the likely pathogen. PLAN: 1. Discontinue Zosyn. 2. Start the patient on Unasyn 3 grams q.6 hours. 3. Await oral surgery evaluation as extraction of this tooth will help heal this infection. 4. We will follow on clinical condition and culture to further adjust medication if needed. Thank you for this consultation. Will follow this patient along with you. MMODL / IJN: [id number] /
[2020-07-14 07:49] LABS: Basophils % (A) 0 %; Eosinophils # (A) 0.1 k/uL (0-0.7); Eosinophils % (A) 2 %; HGB 9.4 gm/dL (13.0-17.5); Hypochromasia Slight; Lymphocytes # (A) 1.5 k/uL (1.0-4.8); Lymphocytes % (A) 19 %; MCH 28.9 pg (25.0-35.0); MCHC 32.4 g/dL (31.0-37.0); MCV 89.4 fL (80.0-100.0); Mean Platelet Volume 7.7; Monocytes # (A) 0.7 k/uL (0-1.0); Monocytes % (A) 8 %; Neutrophils # (A) 5.5 k/uL (1.3-7.7); Neutrophils % (A) 70 %; Platelet Count 189 k/uL (150-450); RBC 3.25 m/uL (4.30-5.90); RDW 15.2 % (11.5-15.5); WBC 7.9 k/uL (3.8-10.6)
[2020-07-14 07:51] LABS: Calcium 8.2 mg/dL (8.4-10.2); Potassium 4.3 mmol/L (3.5-5.1)
--- NOTE | 2020-07-14 08:04 | P.PN ---
Subjective Progress Note Date: 07/14/20 Principal diagnosis: Dental abscess. This is a continue present 70-year-old white male with Crohn's colitis opiate dependence with new onset atrial fibrillation with rapid ventricular response. The patient was admitted also for dental abscess. Appreciate multiple consultants input. Objective - Vital Signs Vital signs: Vital Signs Temp 97.6 F 07/14/20 04:00 Pulse 79 07/14/20 04:00 Resp 16 07/14/20 04:00 BP 125/57 07/14/20 04:00 Pulse Ox 95 07/14/20 04:00 Intake & Output 07/13/20 07/14/20 07/14/20 18:59 06:59 18:59 Intake Total 315 Balance 315 Weight 79.1 kg Intake: Oral 315 Other: Voiding Method Toilet # Voids 0 - Constitutional General appearance: Present: average body habitus - EENT Eyes: Absent: abnormal pupil - Neck Neck: Absent: lymphadenopathy - Respiratory Respiratory: bilateral: CTA - Cardiovascular Rhythm: irregularly irregular Heart sounds: normal: S1, S2 Abnormal Heart Sounds: Absent: S3 Gallop - Gastrointestinal General gastrointestinal: Present: soft. Absent: tenderness - Psychiatric Psychiatric: Present: A&O x's 3, appropriate affect - Labs CBC & Chem 7: 07/14/20 06:51 07/14/20 06:51 Labs: Abnormal Lab Results - Last 24 Hours (Table) 07/14/20 07/14/20 Range/Units 06:51 06:51 RBC 3.25 L (4.30-5.90) m/uL Hgb 9.4 L (13.0-17.5) gm/dL Hct 29.0 L (39.0-53.0) % Sodium 134 L (137-145) mmol/L Creatinine 1.30 H (0.66-1.25) mg/dL Glucose 125 H (74-99) mg/dL Calcium 8.2 L (8.4-10.2) mg/dL Microbiology - Last 24 Hours (Table) 07/12/20 14:00 Blood Culture Gram Stain - Preliminary Blood 07/12/20 14:00 Blood Culture - Final Blood 07/12/20 14:15 Blood Culture - Preliminary Blood No Growth after 24 hours Assessment and Plan (1) Atrial fibrillation with RVR Current Visit: Yes Status: Acute Code(s): I48.91 - UNSPECIFIED ATRIAL FIBRILLATION SNOMED Code(s): 587857722349011 (2) Dental abscess Current Visit: Yes Status: Acute Code(s): K04.7 - PERIAPICAL ABSCESS WITHOUT SINUS SNOMED Code(s): 053571621 (3) Dehydration Current Visit: No Status: Acute Code(s): E86.0 - DEHYDRATION SNOMED Code(s): 35852255 Plan: Continue current regimen of antibiotic treatment. Check CBC and CMP in a.m. Await oral surgeon evaluation for possible extraction. She orders otherwise
[2020-07-14] MEDS: ENOXAPARIN 40 MG/0.4 ML SYRINGE SQ SCH (08:31)
[2020-07-14] MEDS: METOPROLOL SUCCINATE (ER) 25 MG TAB.ER.24H PO SCH (08:31)
[2020-07-14] MEDS: FAMOTIDINE 20 MG TAB PO SCH ×2 (08:31→21:16)
[2020-07-14] MEDS: MULTIVITAMINS, THERA 1 EACH TAB PO SCH (08:31)
[2020-07-14] MEDS: amLODIPine 10 MG TAB PO SCH (08:31)
[2020-07-14] MEDS: CYCLOBENZAPRINE 10 MG TAB PO SCH ×2 (08:31→21:16)
[2020-07-14] MEDS: allopurinoL 100 MG TAB PO SCH ×2 (08:31→21:16)
--- NOTE | 2020-07-14 09:56 | ECHOF ---
Referral Reason:afib MEASUREMENTS -------- HEIGHT: 182.9 cm WEIGHT: 78.9 kg BP: 125/57 RVIDd: 3.2 cm (< 3.3) IVSd: 1.5 cm (0.6 - 1.1) LVIDd: 4.3 cm (3.9 - 5.3) LVPWd: 1.9 cm (0.6 - 1.1) IVSs: 1.8 cm LVIDs: 4.4 cm LVPWs: 1.6 cm LA Diam: 4.3 cm (2.7 - 3.8) Ao Diam: 3.4 cm (2.0 - 3.7) AV Cusp: 2.2 cm (1.5 - 2.6) LA Diam: 4.1 cm (2.7 - 3.8) MV EXCURSION: 16.790 mm (> 18.000) MV EF SLOPE: 83 mm/s (70 - 150) EPSS: 1.4 cm MV E Roger: 0.48 m/s MV DecT: 205 ms MV A Roger: 0.83 m/s MV E/A Ratio: 0.57 AR PHT: 982 ms RAP: 5.00 mmHg RVSP: 30.42 mmHg FINDINGS -------- Atrial fibrillation. This was a technically adequate study. The left ventricular size is normal. There is moderate concentric left ventricular hypertrophy. O verall left ventricular systolic function is mild-moderately impaired with, an EF between 40 - 45 %. The right ventricle is normal in size. The left atrium is mildly dilated. The right atrial size is normal. There is mild aortic valve sclerosis. There is mild aortic regurgitation. Mild mitral regurgitation is present. Mild tricuspid regurgitation present. There is no evidence of pulmonary hypertension. There is no pulmonic regurgitation present. The aortic root size is normal. Echo free space represents a pericardial fat pad. CONCLUSIONS -------- 1. The left ventricular size is normal. 2. There is moderate concentric left ventricular hypertrophy. 3. The right ventricle is normal in size. 4. The left atrium is mildly dilated. 5. The right atrial size is normal. 6. There is mild aortic valve sclerosis. 7. There is mild aortic regurgitation. 8. Mild mitral regurgitation is present. 9. Mild tricuspid regurgitation present. 10. There is no pulmonic regurgitation present. 11. The aortic root size is normal. 12. Echo free space represents a pericardial fat pad. DIFFERENTIAL SPECIALIST: Gela Segundo RDCS
--- NOTE | 2020-07-14 11:07 | CDI ---
Documentation Clarification Form Date: 07/14/2020 10:54:28 AM From: Alyssa Tao CCS, CCDS Admit Date: 07/12/2020 02:30:00 PM Patient Name: Silvano Rajan Visit Number: [id number] Discharge Date: ATTENTION: The Clinical Documentation Specialists (CDI) and [facility] Coding Staff appreciate your assistance in clarifying documentation. Please respond to the clarification below the line at the bottom and electronically sign. The CDI & [facility] Coding staff will review the response and follow-up if needed. Please note: Queries are made part of the Legal Health Record. If you have any questions, please contact the author of this message via ITS. Dr. Minh Saldaña: The patient presented with the following clinical indicators. Additional clarification regarding the etiology/cause of the clinical indicators is requested. Sepsis is documented in the 07/12 History & Physical and subsequent 07/13 Progress Note but not furthered documented. History/Risk Factors per the 07/12 ED Note Medical History: GERD, Hypertension, Rheumatoid Arthritis, SVT, Crohn's, Migraine's, Ulcers, Anemia, Gout, Kidney stones, Psoriasis, Bilateral tinnitus, C Diff. Clinical Indicators: Presented to the ED on 07/12 with Dizziness & Oral Pain, Chest Pain & SOB. ED Clinical Impression: Atrial fibrillation with RVR, Dental Abscess. 07/12 ED: T 98, P 59 (irregular), R 18 - 22, BP 185/75, PO 98 RA - 2Lnc, BMI: 22.4 07/12 LAB: WBC 18.4, Hgb 12.0, Neut 15.6, Na 132, BUN 22, Creatinine 1.39, glucose 196, Lactic Acid 2.6 - 1.6; Troponin 0.047, 0.051, 0.065. 07/12 COVID negative 07/12 CXR: Negative for acute pulmonary disease. 07/12 Ct Face: Evidence of dental caries involving the right-sided lateral incisor and first bicuspid. There is cortical erosion involving the lateral incisor on the right compatible with apical abscess and mild adjacent soft tissue swelling. No drainable abscess seen. Apical abscess without cortical erosion involving the right first bicuspid. Treatment 07/12: IV fluid bolus 500 ml @ 999 mls/hr, IV Cardizem Drip Bolus, IV Morhpine, IV Zofran, IV Diltiazem 125 mg 125 mls @ 5 mls/hr q2H, IV Dilaudid, IV Apresoline 10 mg, IV Zosyn, IV Heparin drip, IV Ativan. In your professional opinion, please clarify if these findings signify one of the following conditions: [ ] Sepsis ruled out [ x] Sepsis POA [ ] Sepsis, Not POA [ ] Severe Sepsis with organ failure [ ] Other, please specify [ ] Unable to determine (Template Last Reviewed: May 2020) MTDD
--- NOTE | 2020-07-14 11:19 | CDI ---
Documentation Clarification Form Date: 07/14/2020 11:09:00 AM From: Alyssa Tao CCS, CCDS Admit Date: 07/12/2020 02:30:00 PM Patient Name: Silvano Rajan Visit Number: [id number] Discharge Date: ATTENTION: The Clinical Documentation Specialists (CDI) and [facility] Coding Staff appreciate your assistance in clarifying documentation. Please respond to the clarification below the line at the bottom and electronically sign. The CDI & [facility] Coding staff will review the response and follow-up if needed. Please note: Queries are made part of the Legal Health Record. If you have any questions, please contact the author of this message via ITS. Dr. Minh Saldaña: Atrial Fibrillation is documented in the 07/12 ED Note & 07/12 History & Physical. Per the 07/13 Cardiology Consult: Atrial Fibrillation ruled out, EKG reveals atrial tachycardia. History/Risk Factors per the 07/12 ED Note Medical History: GERD, Hypertension, Rheumatoid Arthritis, SVT, Crohn's, Migraine's, Ulcers, Anemia, Gout, Kidney stones, Psoriasis, Bilateral tinnitus, C Diff. Clinical Indicators: Presented to the ED on 07/12 with Dizziness & Oral Pain, Chest Pain & SOB. ED Clinical Impression: Atrial fibrillation with RVR, Dental Abscess. 07/12 ED: T 98, P 59 (irregular), R 18 - 22, BP 185/75, PO 98 RA - 2Lnc, BMI: 22.4 07/12 LAB: WBC 18.4, Hgb 12.0, Neut 15.6, Na 132, BUN 22, Creatinine 1.39, glucose 196, Lactic Acid 2.6 - 1.6; Troponin 0.047, 0.051, 0.065. 07/12 COVID negative 07/12 CXR: Negative for acute pulmonary disease. Treatment 07/12: IV fluid bolus 500 ml @ 999 mls/hr, IV Cardizem Drip Bolus, IV Morhpine, IV Zofran, IV Diltiazem 125 mg 125 mls @ 5 mls/hr q2H, IV Dilaudid, IV Apresoline 10 mg, IV Zosyn, IV Heparin drip, IV Ativan. In your professional opinion, can you please clarify the type of Atrial Fibrillation, if known? [ ] Atrial Fibrillation ruled out [ x ] Atrial Fibrillation ruled in: Specify type: [ ] Chronic/Permanent [ x] Paroxysmal [ ] Persistent [ ] Other, please specify [ ] Unable to determine (Last Revision: July 2017) MTDD
--- NOTE | 2020-07-14 12:00 | P.PN ---
Subjective Progress Note Date: 07/14/20 HISTORY OF PRESENT ILLNESS: 07/13/2020 This is a 70-year-old male with a past medical history significant for S/P T with ablation 30 years ago, hypertension, rheumatoid arthritis, and GERD. 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 We have been asked to see the patient in consultation for A. fib with RVR. Patient examined at the bedside. Patient initially presented to the hospital secondary to dental pain. Patient was placed on antibiotics by his dentist on an outpatient basis. Patient reports the pain increased and he began feeling dizzy so he came to the emergency room for further evaluation. In the emergency room an EKG was completed which was thought to be A. fib with RVR. The patient was started on IV Cardizem and IV heparin. Further review of EKGs reveals atrial tachycardia, rather than atrial fibrillation. EKG reveals atrial tachycardia Chest xray negative for acute process Laboratory data: WBC 10.3. Hemoglobin 10.2. Platelet count 201. Sodium 133. Potassium 4.0. BUN 18. Creatinine 1.18. Lactic acid 1.6. Troponin 0.047. 0.051. 0.065. Current home cardiac medications include amlodipine 10 mg daily 07/14/2020 Patient examined this morning at the bedside. He denies chest pain or pressure. Denies shortness of breath. Denies palpitations. He continues to report some right-sided dental pain. Echocardiogram completed revealed ejection fraction 40-45%, mild aortic regurgitation, mild mitral regurgitation, mild tricuspid regurgitation. PHYSICAL EXAM: VITAL SIGNS: Reviewed. GENERAL: Well-developed in no acute distress. HEENT: Head is normocephalic. Pupils are equal, round. Sclerae anicteric. Mucous membranes of the mouth are moist. Neck supple. No JVD or thyromegaly LUNGS: Respirations even and unlabored. Lungs essentially clear to auscultation bilaterally. HEART: Regular rate and rhythm. S1 and S2 heard. ABDOMEN: Soft. Nondistended. Nontender. EXTREMITIES: Normal range of motion. No clubbing or cyanosis. Peripheral pulses intact. No lower extremity edema NEUROLOGIC: Awake and alert. Oriented x 3. ASSESSMENT: Atrial fibrillation, ruled out, EKG reveals atrial tachycardia Dental infection, possible abscess Cardiomyopathy, unclear if ischemic or nonischemic Abnormal troponins, may be secondary to infectious process, no evidence of myocardial injury History of SVT with ablation, 30 years ago Hypertension PLAN: Continue Norvasc 10 mg daily Begin lisinopril 5 mg daily Begin metoprolol succinate 25 mg daily Patient to follow up outpatient with Dr. Ram He will require outpatient stress test to rule out CAD Nurse practitioner note has been reviewed by physician. Signing provider agrees with the documented findings, assessment, and plan of care. Objective - Vital Signs Vital signs: Vital Signs Temp 98.0 F 07/14/20 08:00 Pulse 84 07/14/20 08:00 Resp 18 07/14/20 08:00 BP 170/79 07/14/20 08:00 Pulse Ox 97 07/14/20 08:00 Intake & Output 07/13/20 07/14/20 07/14/20 18:59 06:59 18:59 Intake Total 315 Balance 315 Weight 79.1 kg Intake: Oral 315 Other: Voiding Method Toilet # Voids 0 - Labs CBC & Chem 7: 07/14/20 06:51 07/14/20 06:51 Labs: Abnormal Lab Results - Last 24 Hours (Table) 07/14/20 07/14/20 Range/Units 06:51 06:51 RBC 3.25 L (4.30-5.90) m/uL Hgb 9.4 L (13.0-17.5) gm/dL Hct 29.0 L (39.0-53.0) % Sodium 134 L (137-145) mmol/L Creatinine 1.30 H (0.66-1.25) mg/dL Glucose 125 H (74-99) mg/dL Calcium 8.2 L (8.4-10.2) mg/dL Microbiology - Last 24 Hours (Table) 07/12/20 14:00 Blood Culture Gram Stain - Preliminary Blood 07/12/20 14:00 Blood Culture - Final Blood 07/12/20 14:15 Blood Culture - Preliminary Blood No Growth after 24 hours
[2020-07-14] MEDS: lisinopriL 5 MG TAB PO SCH (12:23)
--- NOTE | 2020-07-14 16:21 | P.GSCN ---
History of Present Illness Consult date: 07/14/20 Reason for Consult: Pt presented with an abscessed teeth #5,7 radiographically showing a large radiolucency on #7, a smaller one on #5. Intra-orally, there is swelling on #5,6 area with percussion severe sensitivity on #6. Pt has a regular dentist, Dr. Lezama, but he was not sure they would accommodate seeing him, so he wondered about us extracting his tooth in the OR. Once he found it would be 'cheaper" to do it in his dentist's office, I spoke personally to Dr Lezama, and they made him an appt on Tuesday morning for the extraction. Pt spoke to their front end ui developer and approved the time. Thank you for your referral. Past Medical History Past Medical History: GERD/Reflux, Hypertension, Rheumatoid Arthritis (RA), Skin Disorder, Supraventricular Tachycardia (SVT) Additional Past Medical History / Comment(s): hx CROHN'S (takes tresa), IBS, chronic diarrhea, migraines-, hx ulcers, anemia, gout, kidney stones, psoriasis, bilateral tinnitis., pinched sciatic nerve History of Any Multi-Drug Resistant Organisms: C-DIFF Year Discovered:: stool MDRO Source:: 2016 Past Surgical History: Bowel Resection, Cardiac Ablation, Cholecystectomy, Heart Catheterization, Hernia Repair, Orthopedic Surgery, Tonsillectomy Additional Past Surgical History / Comment(s): partial gastrectomy (ulcers), bowel resections, fecal transplant, bilateral knee arthroscopic surgery, EG D/colonoscopies, R inguinal hernia repair, bilat cataract removal. Past Anesthesia/Blood Transfusion Reactions: Blood Transfusion Reaction, Motion Sickness Additional Past Anesthesia/Blood Transfusion Reaction / Comm: BLOOD TRANSFUSION- BROKE OUT IN [facility] age 21 Past Psychological History: No Psychological Hx Reported Additional Psychological History / Comment(s): denies Smoking Status: Never smoker Past Alcohol Use History: Occasional Past Drug Use History: None Reported Additional Drug Use History / Comment(s): Hx of opiate dependency-on suboxone. - Past Family History Mother Family Medical History: Pulmonary Embolus Additional Family Medical History / Comment(s): AGE 73-[place], STROKE DURING CARATID PROCEDURE Medications and Allergies Home Medications Medication Instructions Recorded Confirmed Type Orphenadrine Citrate [Orphenadrine 100 mg PO BID 12/08/17 07/12/20 History Citrate ER] Adalimumab [Humira Pen] 40 mg SQ Q14D 04/25/18 07/12/20 History Febuxostat [Uloric] 80 mg PO DAILY 05/05/18 07/12/20 History Buprenorphine HCl/Naloxone HCl 1 film SL HS 12/12/18 07/12/20 History [Suboxone 2 mg-0.5 mg Sl Film] Omeprazole 20 mg PO BID 12/12/18 07/12/20 History Qhtdaor-Nmlz-Uiux [id number] 2 tab PO DAILY PRN 01/12/20 07/12/20 History [Excedrin] Multivitamins, Thera [Multivitamin 1 tab PO DAILY 02/27/20 07/12/20 History (formulary)] Famotidine [Pepcid] 20 mg PO BID #30 tablet 03/01/20 07/12/20 Rx amLODIPine [Norvasc] 10 mg PO DAILY tab 03/01/20 07/12/20 Rx Allergies Allergy/AdvReac Type Severity Reaction Status Date / Time Iodinated Contrast Media Allergy Anaphylaxis Verified 07/12/20 14:21 [Iodinated Contrast Media - IV Dye] Surgical - Exam Vital Signs Temp Pulse Resp BP Pulse Ox 98 F 59 L 18 185/75 98 07/12/20 10:56 07/12/20 10:56 07/12/20 10:56 07/12/20 10:56 07/12/20 10:56 Results - Labs 07/14/20 06:51 07/14/20 06:51 Abnormal Lab Results - Last 24 Hours (Table) 07/14/20 07/14/20 Range/Units 06:51 06:51 RBC 3.25 L (4.30-5.90) m/uL Hgb 9.4 L (13.0-17.5) gm/dL Hct 29.0 L (39.0-53.0) % Sodium 134 L (137-145) mmol/L Creatinine 1.30 H (0.66-1.25) mg/dL Glucose 125 H (74-99) mg/dL Calcium 8.2 L (8.4-10.2) mg/dL Microbiology - Last 24 Hours (Table) 07/12/20 14:00 Blood Culture Gram Stain - Preliminary Blood 07/12/20 14:00 Blood Culture - Final Blood 07/12/20 14:15 Blood Culture - Preliminary Blood No Growth after 24 hours Diabetes panel 07/14/20 Range/Units 06:51 Sodium 134 L (137-145) mmol/L Potassium 4.3 (3.5-5.1) mmol/L Chloride 105 (98-107) mmol/L Carbon Dioxide 25 (22-30) mmol/L BUN 15 (9-20) mg/dL Creatinine 1.30 H (0.66-1.25) mg/dL Glucose 125 H (74-99) mg/dL Calcium 8.2 L (8.4-10.2) mg/dL Calcium panel 07/14/20 Range/Units 06:51 Calcium 8.2 L (8.4-10.2) mg/dL Pituitary panel 07/14/20 Range/Units 06:51 Sodium 134 L (137-145) mmol/L Potassium 4.3 (3.5-5.1) mmol/L Chloride 105 (98-107) mmol/L Carbon Dioxide 25 (22-30) mmol/L BUN 15 (9-20) mg/dL Creatinine 1.30 H (0.66-1.25) mg/dL Glucose 125 H (74-99) mg/dL Calcium 8.2 L (8.4-10.2) mg/dL Adrenal panel 07/14/20 Range/Units 06:51 Sodium 134 L (137-145) mmol/L Potassium 4.3 (3.5-5.1) mmol/L Chloride 105 (98-107) mmol/L Carbon Dioxide 25 (22-30) mmol/L BUN 15 (9-20) mg/dL Creatinine 1.30 H (0.66-1.25) mg/dL Glucose 125 H (74-99) mg/dL Calcium 8.2 L (8.4-10.2) mg/dL
[2020-07-14] MEDS: Buprenorphine Hcl/Naloxone Hcl [Suboxone 2 Mg-0.5 Mg Sl Film] SUBLINGUAL SCH (22:34)
--- NOTE | 2020-07-14 23:28 | PN ---
PROGRESS NOTE DATE OF SERVICE: 07/14/2020 REASON FOR FOLLOWUP: Dental abscess and bacteremia. INTERVAL HISTORY: The patient is currently afebrile. The patient is breathing comfortably. Still complaining of pain to the right upper jaw area. Denies having any chest pain, shortness of breath or cough. No abdominal pain or diarrhea. PHYSICAL EXAMINATION: Blood pressure 103/55 with a pulse of 69, temperature 98.5. He is 96% on room air. General description is an elderly male lying in bed in no distress. HEENT examination shows slight right facial swelling. No redness. LUNGS: Unlabored breathing. Clear to auscultation. HEART: S1, S2. Regular rate and rhythm. ABDOMEN: Soft. No tenderness. LABS: Hemoglobin 9.4, white count 7.9, BUN 15, creatinine 1.30. Blood culture with Gram- negative bacilli. DIAGNOSTIC IMPRESSION AND PLAN: Patient with a right upper dental abscess, now with evidence of secondary bacteremia. Patient is covered with Unasyn. Waiting for surgical extraction of affected tooth. That will help heal this infection. Continue with supportive care. MMODL / IJN: [id number] /
[2020-07-15] MEDS: HYDROmorphone 0.5 MG/0.5 ML SYRINGE IVP PRN ×6 (00:37→20:32)
[2020-07-15] MEDS: AMPICILLIN-SULBACTAM 3 GM in SODIUM CHLORIDE 0.9% 100 ML IVPB SCH ×3 (05:53→17:51)
[2020-07-15 07:56] LABS: HCT 28.1 % (39.0-53.0); HGB 8.9 gm/dL (13.0-17.5); Hypochromasia Slight; MCH 28.5 pg (25.0-35.0); MCHC 31.9 g/dL (31.0-37.0); MCV 89.3 fL (80.0-100.0); Mean Platelet Volume 7.1; Platelet Count 157 k/uL (150-450); RBC 3.14 m/uL (4.30-5.90); RDW 14.9 % (11.5-15.5); WBC 6.6 k/uL (3.8-10.6)
[2020-07-15 08:12] LABS: Albumin 2.9 g/dL (3.5-5.0); Calcium 8.1 mg/dL (8.4-10.2); Potassium 4.5 mmol/L (3.5-5.1); Total Bilirubin 0.6 mg/dL (0.2-1.3); Total Protein 5.7 g/dL (6.3-8.2)
[2020-07-15] MEDS: CYCLOBENZAPRINE 10 MG TAB PO SCH ×2 (08:30→20:31)
[2020-07-15] MEDS: allopurinoL 100 MG TAB PO SCH ×2 (08:30→20:31)
[2020-07-15] MEDS: METOPROLOL SUCCINATE (ER) 25 MG TAB.ER.24H PO SCH (08:30)
[2020-07-15] MEDS: lisinopriL 5 MG TAB PO SCH (08:30)
[2020-07-15] MEDS: MULTIVITAMINS, THERA 1 EACH TAB PO SCH (08:31)
[2020-07-15] MEDS: FAMOTIDINE 20 MG TAB PO SCH ×2 (08:31→20:31)
[2020-07-15] MEDS: amLODIPine 10 MG TAB PO SCH (08:31)
[2020-07-15] MEDS: ENOXAPARIN 40 MG/0.4 ML SYRINGE SQ SCH (08:32)
--- NOTE | 2020-07-15 09:29 | CDI ---
Documentation Clarification Form Date: 07/15/2020 09:16:48 AM From: Alyssa aTo CCS, CCDS Admit Date: 07/12/2020 02:30:00 PM Patient Name: Silvano Rajan Visit Number: [id number] Discharge Date: ATTENTION: The Clinical Documentation Specialists (CDI) and [facility] Coding Staff appreciate your assistance in clarifying documentation. Please respond to the clarification below the line at the bottom and electronically sign. The CDI & [facility] Coding staff will review the response and follow-up if needed. Please note: Queries are made part of the Legal Health Record. If you have any questions, please contact the author of this message via ITS. Dr. Minh Saldaña: Anemia is documented in the Past Medical History in the 07/12 ED Note, the 07/12 H & P, the 07/13 Cardiology Consult and the 07/14 Oral Surgeon's Consult without further specificity. History/Risk Factors per the 07/12 ED Note Past Medical History: GERD, Hypertension, Rheumatoid Arthritis, SVT, Crohns Disease, Chronic Diarrhea, Migraines, Ulcers, Psoriasis, C Diff, Bowel Resection, Cardiac Ablation, Previous Transfusions with reaction. Clinical indicators: Presented to the ED on 07/12 with Dizziness and Oral pain with a known infected tooth or teeth. ED Clinical Impression: Atrial Fibrillation with RVR and Dental Abscess. Hemoglobin 07/12: 12.0, 07/13: 10.2; 07/14: 9.4; 07/15: 8.9 Hematocrit 07/12: 39.2, 07/13: 31.8; 07/14: 29.0; 07/15: 28.1 Treatment 07/12: IV fluid 500 mls @ 999 mls/hr q31M, IV Cardizem Drip Bolus x1, IV Morphine, IV Zofran, IV Cardizem 125 mls @ 5 mls/hr q24H, IV Dilaudid 0.5 mg x1, IV Apresoline 10 mg x1, IV Zosyn x1, IV Heparin. Home meds: Norvasc, Citrate, Omeprazole, Uloric, Pepcid, Suboxone, Aspirin, Humira sq In order to capture the severity of condition, please clarify the type of anemia and etiology if known:. [ ] Chronic blood loss anemia [ ] Iron deficiency anemia [ ] Hemolytic anemia [ ] Drug induced anemia [ x ] Anemia of Chronic Disease [ ] Unable to determine [ ] Other, please specify (Last Form Revision: June 2019) [facility]
--- NOTE | 2020-07-15 11:49 | P.PN ---
Subjective This is a pleasant 70-year-old male past medical history significant for SVT ablation 30 years ago, hypertension, rheumatoid arthritis and gastroesophageal reflux disease. He is seen and examined resting comfortably laying flat in bed in no acute distress. He denies symptoms of chest pain, shortness of breath, dizziness or palpitations. Blood pressure 166/71 heart rate 64 afebrile maintaining oxygen saturation on room air. Laboratory data reviewed, sodium 134, potassium 4.5 and creatinine 1.18. Currently maintained on amlodipine 10 mg daily, lisinopril 5 mg daily and Toprol 25 mg daily. GENERAL: Well-appearing, well-nourished and in no acute distress. NECK: Supple without JVD or thyromegaly. LUNGS: Breath sounds clear to auscultation bilaterally. Respiration equal and unlabored. No wheezes, rales or rhonchi. HEART: Regular rate and rhythm with systolic ejection murmur at the base, no rubs or gallops. S1 and S2 heard. EXTREMITIES: Normal range of motion, no edema. No clubbing or cyanosis. Peripheral pulses intact. ASSESSMENT Atrial tachycardia Cardiomyopathy, unclear if ischemic or nonischemic Dental abscess Leukocytosis Lactic acidosis Acute kidney injury Hypertension Abnormal troponins secondary to infection History of SVT s/p ablation 30 years ago, exact details unavailable PLAN He will require further investigation for cause of cardiomyopathy with outpatient stress testing. Stable for discharge on current medical regimen, follow up with Dr. Ram upon discharge. Nurse Practitioner note has been reviewed, I agree with a documented findings and plan of care. Patient was seen and examined. Objective - Vital Signs Vital signs: Vital Signs Temp 98.1 F 07/15/20 04:00 Pulse 64 07/15/20 04:00 Resp 17 07/15/20 04:00 BP 166/71 07/15/20 04:00 Pulse Ox 98 07/15/20 04:00 Intake & Output 07/14/20 07/15/20 07/15/20 18:59 06:59 18:59 Intake Total 2100 720 118 Balance 2100 720 118 Weight 78.1 kg Intake: IV 60 .9 60 Oral 2100 660 118 Other: Voiding Method Toilet # Voids 2 - Labs CBC & Chem 7: 07/15/20 07:44 07/15/20 07:44 Labs: Abnormal Lab Results - Last 24 Hours (Table) 07/15/20 07/15/20 Range/Units 07:44 07:44 RBC 3.14 L (4.30-5.90) m/uL Hgb 8.9 L (13.0-17.5) gm/dL Hct 28.1 L (39.0-53.0) % Sodium 134 L (137-145) mmol/L Chloride 108 H (98-107) mmol/L Glucose 118 H (74-99) mg/dL Calcium 8.1 L (8.4-10.2) mg/dL Total Protein 5.7 L (6.3-8.2) g/dL Albumin 2.9 L (3.5-5.0) g/dL Microbiology - Last 24 Hours (Table) 07/12/20 14:15 Blood Culture - Preliminary Blood No Growth after 48 hours 07/12/20 14:00 Blood Culture Gram Stain - Preliminary Blood
--- NOTE | 2020-07-15 12:42 | P.PN ---
Subjective Principal diagnosis: Dental abscess. This is a continue present 70-year-old white male with Crohn's colitis opiate dependence with new onset atrial fibrillation with rapid ventricular response. The patient was admitted also for dental abscess. Appreciate multiple consultants input. We anticipate discharge in a.m. after having dental abscess appointment in the afternoon we will keep on IV antibiotics until then. Objective - Vital Signs Vital signs: Vital Signs Temp 98.4 F 07/15/20 08:00 Pulse 73 07/15/20 08:00 Resp 18 07/15/20 08:00 BP 131/62 07/15/20 08:00 Pulse Ox 95 07/15/20 08:00 Intake & Output 07/14/20 07/15/20 07/15/20 18:59 06:59 18:59 Intake Total 2100 720 118 Balance 2100 720 118 Weight 78.1 kg Intake: IV 60 .9 60 Oral 2100 660 118 Other: Voiding Method Toilet # Voids 2 - Constitutional General appearance: Present: average body habitus - EENT EENT Comment(s): Right facial swelling Eyes: Absent: abnormal pupil - Neck Neck: Absent: lymphadenopathy - Respiratory Respiratory: bilateral: CTA - Cardiovascular Rhythm: regular - Gastrointestinal General gastrointestinal: Present: soft. Absent: tenderness - Neurologic Neurologic: Absent: CNII-XII intact, focal deficits - Labs CBC & Chem 7: 07/15/20 07:44 07/15/20 07:44 Labs: Abnormal Lab Results - Last 24 Hours (Table) 07/15/20 07/15/20 Range/Units 07:44 07:44 RBC 3.14 L (4.30-5.90) m/uL Hgb 8.9 L (13.0-17.5) gm/dL Hct 28.1 L (39.0-53.0) % Sodium 134 L (137-145) mmol/L Chloride 108 H (98-107) mmol/L Glucose 118 H (74-99) mg/dL Calcium 8.1 L (8.4-10.2) mg/dL Total Protein 5.7 L (6.3-8.2) g/dL Albumin 2.9 L (3.5-5.0) g/dL Microbiology - Last 24 Hours (Table) 07/12/20 14:15 Blood Culture - Preliminary Blood No Growth after 48 hours 07/12/20 14:00 Blood Culture Gram Stain - Preliminary Blood Assessment and Plan (1) Atrial fibrillation with RVR Current Visit: Yes Status: Acute Code(s): I48.91 - UNSPECIFIED ATRIAL FIBRILLATION SNOMED Code(s): 399231307649256 (2) Dental abscess Current Visit: Yes Status: Acute Code(s): K04.7 - PERIAPICAL ABSCESS WITHOUT SINUS SNOMED Code(s): 633397217 (3) Dehydration Current Visit: No Status: Acute Code(s): E86.0 - DEHYDRATION SNOMED Code(s): 22442013 Plan: Appreciate multiple consultants input. Continue antibiotic therapy until the a.m. New. Anticipate discharge in the a.m. We'll continue to follow.
--- NOTE | 2020-07-15 20:20 | PN ---
PROGRESS NOTE DATE OF SERVICE: 07/15/2020 REASON FOR FOLLOWUP: Dental abscess with bacteremia. INTERVAL HISTORY: The patient is currently afebrile. The patient did mention overall pain and discomfort to the right side of the cheek has decreased in intensity. The patient has been evaluated by General Surgery and they are recommending outpatient extraction of the infected teeth. The patient denies having any chest pain or shortness of breath or cough. No abdominal pain or diarrhea. PHYSICAL EXAMINATION: Blood pressure 109/78 with a pulse of 73, temperature 98.4. He is 98% on room air. General description is an elderly male lying in bed in no distress. HEENT: Examination shows slight pallor. No scleral icterus. Oral mucous membrane is dry. LUNGS: Unlabored breathing. Clear to auscultation. HEART: S1, S2. Regular rate and rhythm. ABDOMEN: Soft. No tenderness. LABS: Hemoglobin 8.1, white count 6.6, BUN of 12, creatinine 1.18. Blood culture was initially Gram-negative bacilli, has been switched to Gram-positive bacilli. DIAGNOSTIC IMPRESSION AND PLAN: Patient presented to hospital with a dental abscess and needs extraction of the teeth to help heal this infection. The patient is on Unasyn. Will wait for ID of the Gram- negative to determine discharge antibiotics. Continue Unasyn at this point and monitor his clinical course closely. MMODL / IJN: [id number] /
[2020-07-15] MEDS: Buprenorphine Hcl/Naloxone Hcl [Suboxone 2 Mg-0.5 Mg Sl Film] SUBLINGUAL SCH (20:32)
[2020-07-16] MEDS: AMPICILLIN-SULBACTAM 3 GM in SODIUM CHLORIDE 0.9% 100 ML IVPB SCH ×2 (00:31→06:37)
[2020-07-16] MEDS: HYDROmorphone 0.5 MG/0.5 ML SYRINGE IVP PRN ×3 (00:32→08:34)
[2020-07-16 06:22] VITALS: PULSE 69
--- NOTE | 2020-07-16 08:20 | P.DS ---
Providers Date of admission: 07/12/20 14:30 Attending physician: Minh Saldaña Consults: 07/12/20 14:03 Consult Physician Urgent Consulting Provider: Lizandro Murray Consult Reason/Comments: afib rvr Do you want consulting provider notified?: Yes 07/12/20 17:18 Consult Physician Routine Consulting Provider: Kaylin Rowe Consult Reason/Comments: Dental Abcess Do you want consulting provider notified?: Yes 07/12/20 21:44 Consult Physician Routine Consulting Provider: Corry Mcclure Consult Reason/Comments: Sepsis, Dental infection/Abscess Do you want consulting provider notified?: Yes Primary care physician: Minh Saldaña - Discharge Diagnosis(es) (1) Atrial fibrillation with RVR Current Visit: Yes Status: Acute (2) Dental abscess Current Visit: Yes Status: Acute (3) Dehydration Current Visit: No Status: Acute Hospital Course: This discharge summary and a 70-year-old white male essentially admitted for dental abscess. Patient also had a dental H fibrillation which was appropriately treated. Patient is now on appropriate antibiotic treatment and scheduled for extraction of appropriate offending tooth later today. Patient Condition at Discharge: Fair Plan - Discharge Summary New Discharge Prescriptions: New Metoprolol Succinate (ER) [Toprol XL] 25 mg PO DAILY #30 tab.er.24h lisinopriL [Zestril] 5 mg PO DAILY #30 tab Continue Orphenadrine Citrate [Orphenadrine Citrate ER] 100 mg PO BID Adalimumab [Humira Pen] 40 mg SQ Q14D Febuxostat [Uloric] 80 mg PO DAILY Omeprazole 20 mg PO BID Buprenorphine HCl/Naloxone HCl [Suboxone 2 mg-0.5 mg Sl Film] 1 film SL HS Onlehkr-Rtav-Erjx [id number] [Excedrin] 2 tab PO DAILY PRN PRN Reason: Migraine Headache Multivitamins, Thera [Multivitamin (formulary)] 1 tab PO DAILY amLODIPine [Norvasc] 10 mg PO DAILY tab Famotidine [Pepcid] 20 mg PO BID #30 tablet Discharge Medication List Orphenadrine Citrate [Orphenadrine Citrate ER] 100 mg PO BID 12/08/17 [History] Adalimumab [Humira Pen] 40 mg SQ Q14D 04/25/18 [History] Febuxostat [Uloric] 80 mg PO DAILY 05/05/18 [History] Buprenorphine HCl/Naloxone HCl [Suboxone 2 mg-0.5 mg Sl Film] 1 film SL HS 12/12/18 [History] Omeprazole 20 mg PO BID 12/12/18 [History] Sjfyimx-Edwg-Byjk [id number] [Excedrin] 2 tab PO DAILY PRN 01/12/20 [History] Multivitamins, Thera [Multivitamin (formulary)] 1 tab PO DAILY 02/27/20 [History] Famotidine [Pepcid] 20 mg PO BID #30 tablet 03/01/20 [Rx] amLODIPine [Norvasc] 10 mg PO DAILY tab 03/01/20 [Rx] Metoprolol Succinate (ER) [Toprol XL] 25 mg PO DAILY #30 tab.er.24h 07/16/20 [Rx] lisinopriL [Zestril] 5 mg PO DAILY #30 tab 07/16/20 [Rx] Follow up Appointment(s)/Referral(s): Kedar Ram MD [STAFF PHYSICIAN] - 4 Weeks Minh Saldaña MD [Primary Care Provider] - 1-2 days
[2020-07-16 08:30] VITALS: BP 125/61; RESP 18; TEMP 98
[2020-07-16] MEDS: allopurinoL 100 MG TAB PO SCH (08:33)
[2020-07-16] MEDS: lisinopriL 5 MG TAB PO SCH (08:34)
[2020-07-16] MEDS: ENOXAPARIN 40 MG/0.4 ML SYRINGE SQ SCH (08:34)
[2020-07-16] MEDS: METOPROLOL SUCCINATE (ER) 25 MG TAB.ER.24H PO SCH (08:34)
[2020-07-16] MEDS: amLODIPine 10 MG TAB PO SCH (08:34)
[2020-07-16] MEDS: FAMOTIDINE 20 MG TAB PO SCH (08:34)
[2020-07-16] MEDS: MULTIVITAMINS, THERA 1 EACH TAB PO SCH (08:34)
[2020-07-16] MEDS: CYCLOBENZAPRINE 10 MG TAB PO SCH (08:34)
--- NOTE | 2020-07-16 14:15 | PN ---
PROGRESS NOTE DATE OF SERVICE: 07/16/2020 REASON FOR FOLLOWUP: 1. Right dental abscess. 2. Positive blood culture, possible contamination. INTERVAL HISTORY: The patient is afebrile. He was seen on rounds this afternoon. The patient denies having any chest pain or shortness of breath or cough. No nausea, no vomiting. No abdominal pain or diarrhea. PHYSICAL EXAMINATION: Blood pressure is 125/61 with a pulse of 69, temperature is 98. He is 97% on room air. General description is an elderly male lying in bed in no distress. HEENT EXAMINATION: Right-sided facial swelling and redness has decreased. LUNGS: Unlabored breathing, clear to auscultation anteriorly. HEART: S1, S2. Regular rate and rhythm. ABDOMEN: Soft, no tenderness. LABS: Hemoglobin 8.9, white count 6.6, BUN of 12, creatinine 1.18. DIAGNOSTIC IMPRESSION AND PLAN: 1. Patient with right dental abscess with cellulitis. Patient overall improvement on Unasyn. Finish therapy with oral Augmentin. Prescription sent to the pharmacy. The patient did have an appointment with surgeon today for removal of affected teeth and a close outpatient followup. 2. Patient's more likely contaminant. No need for further workup for the same. Follow-up blood culture has been negative. MMODL / IJN: [id number] /
== END 2020-07-16 11:11 | disposition home or self-care (01) | DRG 872 ==
LOC: EC 10:46 → 3SCARD 14:30
PROVIDERS: ADMIT Family Medicine; ATTEND Family Medicine
DX: A41.9 Sepsis, unspecified organism (principal); K50.10 Crohn's disease of large intestine without complications; E87.2 Acidosis; N17.9 Acute kidney failure, unspecified; I42.9 Cardiomyopathy, unspecified; F11.20 Opioid dependence, uncomplicated; L03.211 Cellulitis of face; I47.1 Supraventricular tachycardia; D63.8 Anemia in other chronic diseases classified elsewhere; I48.0 Paroxysmal atrial fibrillation; K04.7 Periapical abscess without sinus; M06.9 Rheumatoid arthritis, unspecified; Z20.822 Contact with and (suspected) exposure to COVID-19; G43.909 Migraine, unspecified, not intractable, without status migrainosus; E86.0 Dehydration; I10 Essential (primary) hypertension; K21.9 Gastro-esophageal reflux disease without esophagitis; L40.9 Psoriasis, unspecified; K58.0 Irritable bowel syndrome with diarrhea; M10.9 Gout, unspecified; H93.13 Tinnitus, bilateral; G47.00 Insomnia, unspecified; K02.9 Dental caries, unspecified; R77.8 Other specified abnormalities of plasma proteins; Z79.899 Other long term (current) drug therapy; Z91.041 Radiographic dye allergy status; Z87.11 Personal history of peptic ulcer disease; Z87.442 Personal history of urinary calculi; Z86.19 Personal history of other infectious and parasitic diseases; Z87.19 Personal history of other diseases of the digestive system; Z98.42 Cataract extraction status, left eye; Z98.41 Cataract extraction status, right eye; Z87.39 Personal history of other diseases of the musculoskeletal system and connective tissue; Z90.3 Acquired absence of stomach [part of]; Z90.49 Acquired absence of other specified parts of digestive tract; Z92.89 Personal history of other medical treatment; Z98.890 Other specified postprocedural states; Z82.3 Family history of stroke; Z83.2 Family history of diseases of the blood and blood-forming organs and certain disorders involving the immune mechanism; Z82.49 Family history of ischemic heart disease and other diseases of the circulatory system
CPT/HCPCS: 36415; 70486; 71046; 80048; 80053; 83605; 84484; 85025; 85027; 85049; 85610; 85730; 87040; 87635; 93005; 93306; 96365; 96366; 96375; 96376; 99285

== ENCOUNTER 2020-08-23 13:46 | Observation (INO) | payer BC, MEDICARE ==
[2020-08-23] MEDS ORDERED: CLINDAMYCIN 600 MG in DEXTROSE 5% IN WATER 50 ML IVPB STA ×2 (14:30)
[2020-08-23] MEDS ORDERED: AMPICILLIN-SULBACTAM 3 GM in SODIUM CHLORIDE 0.9% 100 ML IVPB STA (14:31)
[2020-08-23] MEDS ORDERED: KETOROLAC 15 MG/ML 1 ML VIAL IVP STA (14:35)
--- NOTE | 2020-08-23 14:35 | ED ---
General Adult HPI - General Chief complaint: Dental/Oral Stated complaint: dental pain Source: patient Mode of arrival: ambulatory - History of Present Illness Initial comments: 70-year-old male with a past medical history of Crohn's, on Humira, IBS, diarrhea, migraines, hypertension presents to the emergency room for a chief complaint of dental abscess. Patient states he has had a dental abscess for about 2 months. Reports that he was actually admitted into the hospital because they put him into A. fib with RVR and he had positive blood cultures. Patient states that he was supposed to get them surgically removed in the hospital but decided to go to his own dentist instead. He states that his dentist ended up wanting to do a root canal and patient just wanted them removed so the dentist referred him to primary care for a referral to oral surgery. Patient states primary care never called with a referral he never followed up. He states his pain did improve after he was on Augmentin. States that 5 days ago it started again. He had some leftover penicillin and has been taking it twice daily. States that the pain is worse. States he was concerned he could he coming septic again.patient states that as he was getting out of the car he felt very lightheaded and felt like he was going to pass out. States this persisted for several minutes. States that it had resolved before coming into the ER. No chest pain. Patient has no other complaints at this time including shortness of breath, chest pain, abdominal pain, nausea or vomiting, headache, or visual changes. - Related Data Home Medications Medication Instructions Recorded Confirmed Orphenadrine Citrate [Orphenadrine 100 mg PO BID 12/08/17 07/12/20 Citrate ER] Adalimumab [Humira Pen] 40 mg SQ Q14D 04/25/18 07/12/20 Febuxostat [Uloric] 80 mg PO DAILY 05/05/18 07/12/20 Buprenorphine HCl/Naloxone HCl 1 film SL HS 12/12/18 07/12/20 [Suboxone 2 mg-0.5 mg Sl Film] Omeprazole 20 mg PO BID 12/12/18 07/12/20 Zizlzac-Hvqm-Ifgb [id number] 2 tab PO DAILY PRN 01/12/20 07/12/20 [Excedrin] Multivitamins, Thera [Multivitamin 1 tab PO DAILY 02/27/20 07/12/20 (formulary)] Previous Rx's Medication Instructions Recorded Famotidine [Pepcid] 20 mg PO BID #30 tablet 03/01/20 amLODIPine [Norvasc] 10 mg PO DAILY tab 03/01/20 Amoxic-Pot Clav 875-125Mg 1 tab PO Q12HR 14 Days #28 tab 07/16/20 [Augmentin 875-125] Metoprolol Succinate (ER) [Toprol 25 mg PO DAILY #30 tab.er.24h 07/16/20 XL] lisinopriL [Zestril] 5 mg PO DAILY #30 tab 07/16/20 Allergies Allergy/AdvReac Type Severity Reaction Status Date / Time Iodinated Contrast Media Allergy Anaphylaxis Verified 08/23/20 14:00 [Iodinated Contrast Media - IV Dye] Review of Systems ROS Statement: Those systems with pertinent positive or pertinent negative responses have been documented in the HPI. ROS Other: All systems not noted in ROS Statement are negative. Past Medical History Past Medical History: GERD/Reflux, Hypertension, Rheumatoid Arthritis (RA), Skin Disorder, Supraventricular Tachycardia (SVT) Additional Past Medical History / Comment(s): hx CROHN'S (takes tresa), IBS, chronic diarrhea, migraines-, hx ulcers, anemia, gout, kidney stones, psoriasis, bilateral tinnitis., pinched sciatic nerve, C-Diff 2016, History of Any Multi-Drug Resistant Organisms: None Reported Date of last positivie culture/infection: stool MDRO Source:: 2017 Past Surgical History: Bowel Resection, Cardiac Ablation, Cholecystectomy, Heart Catheterization, Hernia Repair, Orthopedic Surgery, Tonsillectomy Additional Past Surgical History / Comment(s): partial gastrectomy (ulcers), bowel resections, fecal transplant, bilateral knee arthroscopic surgery, EGD/colonoscopies, R inguinal hernia repair, bilat cataract removal, Past Anesthesia/Blood Transfusion Reactions: Blood Transfusion Reaction, Motion Sickness Additional Past Anesthesia/Blood Transfusion Reaction / Comment(s): BLOOD TRANSFUSION- BROKE OUT IN HIVES age 21 Past Psychological History: No Psychological Hx Reported Smoking Status: Never smoker Past Alcohol Use History: Occasional Past Drug Use History: None Reported - Past Family History Mother Family Medical History: Pulmonary Embolus Additional Family Medical History / Comment(s): AGE 73-[place], STROKE DURING CARATID PROCEDURE General Exam General appearance: alert, in no apparent distress Head exam: Present: atraumatic, normocephalic, normal inspection Eye exam: Present: normal appearance, PERRL, EOMI. Absent: scleral icterus, conjunctival injection, periorbital swelling ENT exam: Present: normal exam, mucous membranes moist, TM's normal bilaterally, normal external ear exam. Absent: normal oropharynx (Tenderness to tooth 6 with dental caries noted. No abscess identified.) Neck exam: Present: normal inspection, full ROM. Absent: tenderness, meningismu s, lymphadenopathy Respiratory exam: Present: normal lung sounds bilaterally. Absent: respiratory distress, wheezes, rales, rhonchi, stridor Cardiovascular Exam: Present: regular rate, normal rhythm, normal heart sounds. Absent: systolic murmur, diastolic murmur, rubs, gallop, clicks GI/Abdominal exam: Present: soft, normal bowel sounds. Absent: distended, tenderness, guarding, rebound, rigid Course Vital Signs 08/23/20 13:57 Temperature 98.0 F Pulse Rate 57 L Respiratory 18 Rate Blood Pressure 178/79 O2 Sat by Pulse 100 Oximetry EKG Findings - EKG Comments: EKG Findings:: Sinus bradycardia, ventricular rate 53, TN interval 226, QTc 416 Medical Decision Making - Medical Decision Making Vitals are stable. EKG does show significant changes of T-wave inversion in V4 through V6. These were not present on patient's previous EKG. Patient did complain of a near-syncopal episode just prior to arrival. Patient does have some mild edema noted of the right mandible area as well as maxillary area. Tenderness to tooth 6, no evident abscess. CBC does show leukocytosis with a left shift. CMP unremarkable although there is some evidence of dehydration. Given the EKG changes as well as near syncopal episode and infection she will be admitted or cardiology and oral surgery consultations. - Lab Data Result diagrams: 08/23/20 15:01 08/23/20 15:01 Lab Results 08/23/20 08/23/20 08/23/20 Range/Units 15: 15: 15: WBC 15.3 H (3.8-10.6) k/uL RBC 3.93 L (4.30-5.90) m/uL Hgb 10.4 L (13.0-17.5) gm/dL Hct 33.2 L (39.0-53.0) % MCV 84.4 (80.0-100.0) fL MCH 26.5 (25.0-35.0) pg MCHC 31.4 (31.0-37.0) g/dL RDW 14.7 (11.5-15.5) % Plt Count 179 (150-450) k/uL MPV 6.6 Neutrophils % 77 % Lymphocytes % 16 % Monocytes % 5 % Eosinophils % 2 % Basophils % 0 % Neutrophils # 11.7 H (1.3-7.7) k/uL Lymphocytes # 2.4 (1.0-4.8) k/uL Monocytes # 0.8 (0-1.0) k/uL Eosinophils # 0.2 (0-0.7) k/uL Basophils # 0.0 (0-0.2) k/uL PT (9.0-12.0) sec INR (<1.2) APTT (22.0-30.0) sec Sodium 135 L (137-145) mmol/L Potassium 4.1 (3.5-5.1) mmol/L Chloride 105 (98-107) mmol/L Carbon Dioxide 25 (22-30) mmol/L Anion Gap 5 mmol/L BUN 22 H (9-20) mg/dL Creatinine 1.22 (0.66-1.25) mg/dL Est GFR (CKD-EPI)AfAm 69 (>60 ml/min/1.73 sqM) Est GFR (CKD-EPI)NonAf 60 (>60 ml/min/1.73 sqM) Glucose 128 H (74-99) mg/dL Plasma Lactic Acid Kal 1.3 (0.7-2.0) mmol/L Calcium 8.9 (8.4-10.2) mg/dL Total Bilirubin 0.5 (0.2-1.3) mg/dL AST 33 (17-59) U/L ALT 28 (4-49) U/L Alkaline Phosphatase 53 (38-126) U/L Troponin I (0.000-0.034) ng/mL Total Protein 6.3 (6.3-8.2) g/dL Albumin 3.3 L (3.5-5.0) g/dL 08/23/20 08/23/20 Range/Units 15:01 15:23 WBC (3.8-10.6) k/uL RBC (4.30-5.90) m/uL Hgb (13.0-17.5) gm/dL Hct (39.0-53.0) % MCV (80.0-100.0) fL MCH (25.0-35.0) pg MCHC (31.0-37.0) g/dL RDW (11.5-15.5) % Plt Count (150-450) k/uL MPV Neutrophils % % Lymphocytes % % Monocytes % % Eosinophils % % Basophils % % Neutrophils # (1.3-7.7) k/uL Lymphocytes # (1.0-4.8) k/uL Monocytes # (0-1.0) k/uL Eosinophils # (0-0.7) k/uL Basophils # (0-0.2) k/uL PT 9.6 (9.0-12.0) sec INR 0.9 (<1.2) APTT 20.2 L (22.0-30.0) sec Sodium (137-145) mmol/L Potassium (3.5-5.1) mmol/L Chloride (98-107) mmol/L Carbon Dioxide (22-30) mmol/L Anion Gap mmol/L BUN (9-20) mg/dL Creatinine (0.66-1.25) mg/dL Est GFR (CKD-EPI)AfAm (>60 ml/min/1.73 sqM) Est GFR (CKD-EPI)NonAf (>60 ml/min/1.73 sqM) Glucose (74-99) mg/dL Plasma Lactic Acid Kal (0.7-2.0) mmol/L Calcium (8.4-10.2) mg/dL Total Bilirubin (0.2-1.3) mg/dL AST (17-59) U/L ALT (4-49) U/L Alkaline Phosphatase (38-126) U/L Troponin I 0.014 (0.000-0.034) ng/mL Total Protein (6.3-8.2) g/dL Albumin (3.5-5.0) g/dL Disposition Clinical Impression: Dental infection, Leukocytosis, Near syncope Disposition: ADMITTED IP TO THIS HOSP Condition: Fair Is patient prescribed a controlled substance at d/c from ED?: No Referrals: Minh Saldaña MD [Primary Care Provider] - 1-2 days Time of Disposition: 17:01
[2020-08-23] MEDS: SODIUM CHLORIDE 0.9% 500 ML 500 ML IV SCH ×2 (15:23→20:41)
[2020-08-23 15:31] LABS: Basophils % (A) 0 %; Eosinophils # (A) 0.2 k/uL (0-0.7); Eosinophils % (A) 2 %; HCT 33.2 % (39.0-53.0); HGB 10.4 gm/dL (13.0-17.5); Lymphocytes # (A) 2.4 k/uL (1.0-4.8); Lymphocytes % (A) 16 %; MCH 26.5 pg (25.0-35.0); MCHC 31.4 g/dL (31.0-37.0); MCV 84.4 fL (80.0-100.0); Mean Platelet Volume 6.6; Monocytes # (A) 0.8 k/uL (0-1.0); Monocytes % (A) 5 %; Neutrophils # (A) 11.7 k/uL (1.3-7.7); Neutrophils % (A) 77 %; Platelet Count 179 k/uL (150-450); RBC 3.93 m/uL (4.30-5.90); RDW 14.7 % (11.5-15.5); WBC 15.3 k/uL (3.8-10.6)
[2020-08-23 15:41] LABS: Albumin 3.3 g/dL (3.5-5.0); Calcium 8.9 mg/dL (8.4-10.2); Potassium 4.1 mmol/L (3.5-5.1); Total Bilirubin 0.5 mg/dL (0.2-1.3); Total Protein 6.3 g/dL (6.3-8.2)
[2020-08-23] MEDS ORDERED: SODIUM CHLORIDE 0.9% 500 ML 500 ML IV STA (15:57)
[2020-08-23 16:34] LABS: INR 0.9 (<1.2); Prothrombin Time 9.6 sec (9.0-12.0)
[2020-08-23 16:35] LABS: Partial Thromboplastin Time 20.2 sec (22.0-30.0)
[2020-08-23] MEDS ORDERED: MORPHINE SULFATE 4 MG/ML SYRINGE IVP STA (16:58)
[2020-08-23] MEDS ORDERED: ONDANSETRON 4 MG/2 ML VIAL IVP STA (16:58)
[2020-08-23] MEDS ORDERED: ONDANSETRON 4 MG/2 ML VIAL IVP PRN (17:02)
[2020-08-23] MEDS ORDERED: NALOXONE 0.4 MG/ML 1 ML VIAL IV PRN (17:02)
[2020-08-23] MEDS: MORPHINE SULFATE 4 MG/ML SYRINGE IV PRN ×2 (20:27→23:35)
[2020-08-23] MEDS: SODIUM CHLORIDE 0.9% 1,000 ML IV SCH (20:42)
[2020-08-23] MEDS ORDERED: CYCLOBENZAPRINE 10 MG TAB PO SCH (21:00)
[2020-08-23] MEDS: AMPICILLIN-SULBACTAM 3 GM in SODIUM CHLORIDE 0.9% 100 ML IVPB SCH (23:21)
[2020-08-24] MEDS: SODIUM CHLORIDE 0.9% 1,000 ML IV SCH ×2 (02:26→10:32)
[2020-08-24] MEDS: MORPHINE SULFATE 4 MG/ML SYRINGE IV PRN ×2 (02:45→05:48)
[2020-08-24] MEDS: AMPICILLIN-SULBACTAM 3 GM in SODIUM CHLORIDE 0.9% 100 ML IVPB SCH (05:48)
--- NOTE | 2020-08-24 08:06 | CONS ---
CONSULTATION HISTORY OF PRESENT ILLNESS: Silvano Rajan is a 70-year-old gentleman with a remote history of pulmonary embolism several years ago and he has been on rivaroxaban 20 mg daily since then. 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 He has not followed up with Dr. Ram. He also has ulcerative colitis and he takes Humira every 2 weeks 40 mg. He came into the hospital because of an episode of near syncope. He went to [place] to see his children, came driving back and when he was trying to get out of the car, he felt dizzy, lightheaded and woozy, did not quite pass out. He felt concerned and then came into the hospital. At the time of my evaluation, he is comfortable and resting. He has no chest pain or shortness of breath. When he came in initially, there was no clear evidence of dehydration. He has a history of some arrhythmia for which he thinks he had an ablation in the past. The details are rather sketchy and unavailable. He was here in June with a similar dental infection and there was a question of atrial fibrillation, but he was seen by Dr. Ram and was thought to have atrial tachycardia. EKG today actually revealed sinus rhythm. Rhythm strips also reveal sinus rhythm. There was no significant arrhythmia and EKG does not show any signs of ischemia. Pretty much the EKGs from June now are pretty similar. PAST MEDICAL HISTORY: 1. Crohn disease on Humira. 2. Hypertension. 3. History of some arrhythmia and ablation. Details unclear. The patient also has active dental infection for which she is on antibiotics and takes a lot of pain medications. Hypertension is also a factor. BP is well controlled now. MEDICATIONS: Include Humira injections 40 mg subcu every 2 weeks, lisinopril 5 mg daily, amlodipine 10 mg daily, omeprazole 20 mg b.i.d., metoprolol succinate 25 mg daily. ALLERGIES: HE IS ALLERGIC TO IODINE. PHYSICAL EXAMINATION: On examination, blood pressure is 138/70, pulse rate is 60 per minute. HEENT unremarkable. Fundus was not examined by me. NECK is supple. No JVD. I do not hear a carotid bruit. HEART exam reveals S1, S2. There is a short systolic murmur. No significant gallop. LUNGS are clear. ABDOMEN is soft, nontender. Lower EXTREMITIES reveal diminished pulses. CENTRAL NERVOUS SYSTEM is normal. IMPRESSION: 1. Near syncope. 2. Dental infection. 3. History of some ablation in the past, unclear. 4. Hypertension. 5. History of Crohn disease. RECOMMENDATIONS: I would recommend that we check orthostatic changes again in the morning and perform an event monitor for 30 days and advised to follow up with Dr. Ram in the office. Discussed my thoughts in detail with the patient. Thank you very much for the consult. MMSULEMANL / IJN: [id number] /
[2020-08-24] MEDS ORDERED: PENICILLIN V POTASSIUM 250 MG TAB PO SCH (09:00)
[2020-08-24] MEDS ORDERED: PANTOPRAZOLE 40 MG TABLET PO SCH (09:00)
[2020-08-24] MEDS ORDERED: METOPROLOL SUCCINATE (ER) 25 MG TAB.ER.24H PO SCH (09:00)
[2020-08-24] MEDS ORDERED: lisinopriL 5 MG TAB PO SCH (09:00)
[2020-08-24] MEDS ORDERED: amLODIPine 10 MG TAB PO SCH (09:00)
[2020-08-24] MEDS ORDERED: CYCLOBENZAPRINE 10 MG TAB PO SCH (09:00)
--- NOTE | 2020-08-24 09:32 | P.HPIM ---
History of Present Illness Patient is a pleasant 53-year-old male came in after compensative dizziness.. Patient does have history of SVT, specifically AV justin non-reentrant tachycardia. Supposed to follow-up with the electro physiology. Patient is on anticoagulation for cardiac arrhythmia. Patient denied any fever chills. Patient had nausea vomiting. Patient also has dental infection patient was told he will need routine all treatment as it improved with antibiotics patient never followed up with his dentist. Patient is presently on Unasyn. Patient's creatinine is 1.2. Patient was evaluated by cardiology and the cleared for discharge with an event monitor for 30 days and follow with electrophysiology. Patient will be discharged on Augmentin to follow up with dental surgeon as an outpatient. Since patient's creatinine is 1.2 and patient will be discharged on tramadol instead of Motrin or naproxen. Patient does have history of opiate abuse and patient is presently on Suboxone.. Patient does have history of Crohn's disease and is on Humira for that. Review of Systems REVIEW OF SYSTEMS: CONSTITUTIONAL: No fever, no malaise, no fatigue. HEENT: No recent visual problems or hearing problems. Denied any sore throat. CARDIOVASCULAR: No chest pain, orthopnea, PND, no palpitations, no syncope. PULMONARY: No shortness of breath, no cough, no hemoptysis. GASTROINTESTINAL: No diarrhea, no nausea, no vomiting, no abdominal pain. NEUROLOGICAL: No headaches, no weakness, no numbness. HEMATOLOGICAL: Denies any bleeding or petechiae. GENITOURINARY: Denies any burning micturition, frequency, or urgency. MUSCULOSKELETAL/RHEUMATOLOGICAL: Denies any joint pain, swelling, or any muscle pain. ENDOCRINE: Denies any polyuria or polydipsia. The rest of the 14-point review of systems is negative. Past Medical History Past Medical History: Atrial Fibrillation, GERD/Reflux, Hypertension, Rheumatoid Arthritis (RA), Skin Disorder, Supraventricular Tachycardia (SVT) Additional Past Medical History / Comment(s): hx CROHN'S (takes tresa), IBS, chronic diarrhea, migraines-, hx ulcers, anemia, gout, kidney stones, psoriasis, bilateral tinnitis., pinched sciatic nerve, C-Diff 2017, History of Any Multi-Drug Resistant Organisms: None Reported Date of last positivie culture/infection: stool MDRO Source:: 2017 Past Surgical History: Bowel Resection, Cardiac Ablation, Cholecystectomy, Heart Catheterization, Hernia Repair, Orthopedic Surgery, Tonsillectomy Additional Past Surgical History / Comment(s): partial gastrectomy (ulcers), bowel resections, fecal transplant, bilateral knee arthroscopic surgery, EG D/colonoscopies, R inguinal hernia repair, bilat cataract removal, Past Anesthesia/Blood Transfusion Reactions: Blood Transfusion Reaction, Motion Sickness Additional Past Anesthesia/Blood Transfusion Reaction / Comment(s): BLOOD TRANSFUSION- BROKE OUT IN HIVES age 21 Smoking Status: Never smoker - Past Family History Mother Family Medical History: Pulmonary Embolus Additional Family Medical History / Comment(s): AGE 73-[place], STROKE DURING CARATID PROCEDURE Medications and Allergies Home Medications Medication Instructions Recorded Confirmed Type Orphenadrine Citrate [Orphenadrine 100 mg PO BID 12/08/17 08/23/20 History Citrate ER] Adalimumab [Humira Pen] 40 mg SQ Q14D 04/25/18 08/23/20 History Febuxostat [Uloric] 80 mg PO DAILY 05/05/18 08/23/20 History Buprenorphine HCl/Naloxone HCl 1 film SL HS 12/12/18 08/23/20 History [Suboxone 2 mg-0.5 mg Sl Film] Omeprazole 20 mg PO BID 12/12/18 08/23/20 History Metoprolol Succinate (ER) [Toprol 25 mg PO DAILY #30 tab.er.24h 07/16/20 08/23/20 Rx XL] lisinopriL [Zestril] 5 mg PO DAILY #30 tab 07/16/20 08/23/20 Rx Penicillin V Potassium [Pen Vee K] 500 mg PO QID 08/23/20 08/23/20 History Amoxic-Pot Clav 875-125Mg 1 tab PO Q12HR 7 Days #14 tab 08/24/20 Rx [Augmentin 875-125] traMADol HCL [Ultram] 100 mg PO Q6HR PRN 3 Days #24 tab 08/24/20 Rx Allergies Allergy/AdvReac Type Severity Reaction Status Date / Time Iodinated Contrast Media Allergy Anaphylaxis Verified 08/23/20 17:15 [Iodinated Contrast Media - IV Dye] Physical Exam Vitals: Vital Signs Temp Pulse Pulse Resp BP BP BP 08/24/20 06:47 89 157/68 164/72 08/24/20 03:44 98.4 F 64 22 188/69 08/24/20 01:34 18 08/23/20 23:15 98.7 F 68 18 128/64 08/23/20 18:53 97.8 F 52 L 18 159/69 08/23/20 17:01 57 L 18 138/74 08/23/20 13:57 98.0 F 57 L 18 178/79 BP Pulse Ox 08/24/20 06:47 150/63 08/24/20 03:44 99 08/24/20 01:34 08/23/20 23:15 97 08/23/20 18:53 97 08/23/20 17:01 98 08/23/20 13:57 100 Intake and Output 08/23/20 08/24/20 08/24/20 22:59 06:59 14:59 Intake Total 240 Balance 240 Intake: Oral 240 Other: Weight 79.379 kg 76 kg PHYSICAL EXAMINATION: GENERAL: The patient is alert and oriented x3, not in any acute distress. Well developed, well nourished. HEENT: Pupils are round and equally reacting to light. EOMI. No scleral icterus. No conjunctival pallor. Normocephalic, atraumatic. No pharyngeal erythema. No thyromegaly. does have scleral swelling of the gums near upper first molar and canine on the right side CARDIOVASCULAR: S1 and S2 present. No murmurs, rubs, or gallops. PULMONARY: Chest is clear to auscultation, no wheezing or crackles. ABDOMEN: Soft, nontender, nondistended, normoactive bowel sounds. No palpable organomegaly. MUSCULOSKELETAL: No joint swelling or deformity. EXTREMITIES: No cyanosis, clubbing, or pedal edema. NEUROLOGICAL: Gross neurological examination did not reveal any focal deficits. SKIN: No rashes. Results CBC & Chem 7: 08/23/20 15:01 08/23/20 15:01 Labs: Abnormal Lab Results - Last 24 Hours (Table) 08/23/20 08/23/20 08/23/20 Range/Units 15:01 15: 15:23 WBC 15.3 H (3.8-10.6) k/uL RBC 3.93 L (4.30-5.90) m/uL Hgb 10.4 L (13.0-17.5) gm/dL Hct 33.2 L (39.0-53.0) % Neutrophils # 11.7 H (1.3-7.7) k/uL APTT 20.2 L (22.0-30.0) sec Sodium 135 L (137-145) mmol/L BUN 22 H (9-20) mg/dL Glucose 128 H (74-99) mg/dL Albumin 3.3 L (3.5-5.0) g/dL Thrombosis Risk Factor Assmnt - Choose All That Apply Other Risk Factors: Yes Each Risk Factor Represents 2 Points: Age 61-74 years Other congenital or acquired thrombophilia - If yes, enter type in comment: No Thrombosis Risk Factor Assessment Total Risk Factor Score: 2 Thrombosis Risk Factor Assessment Level: Low Risk Assessment and Plan Plan: -Dizziness and near syncope may be venous episode of super ventricular tachycardia patient will be discharged on 30 day event monitor follow up with [facility] cardiology as an outpatient -Tooth abscesses or dental infection: Patient will be discharged on Augmentin to follow-up with dental surgery as an outpatient -Hypertension -Crohn's disease: On Humira -History of prescription opiate overuse presently patient is on off all opiates and is on Suboxone -Leukocytosis reactive -acute renal failure related azotemia from dehydration received IV fluids ove rnight and creatinine should have improved. - gastroesophageal reflux disease Patient will be discharged today with the above-mentioned plan
[2020-08-24 09:54] VITALS: BP 159/73; PULSE 70; RESP 18; TEMP 98.8
--- NOTE | 2020-08-24 13:02 | PN ---
PROGRESS NOTE Mr. Rajan is in sinus rhythm, comfortable. No arrhythmia. No orthostatic changes. He feels better, but complains of his dental pain. He has not really had any syncope or near syncope. It appears that he felt dizzy and lightheaded and also has a pain as an underlying stimulant. I am recommending that he should be discharged home with a 30 day event monitor and come back and see Dr. Ram who has seen him before. Vitals are stable. No orthostatic changes. S1, S2 heard normally. Lungs are clear. Abdomen and lower extremity exam are unchanged. MMODL / IJN: [id number] /
[2020-08-24] MEDS ORDERED: NON FORMULARY DRUG (Buprenorphine Hcl/Naloxone Hcl [Suboxone 2 Mg-0.5 Mg Sl Film] 1 EACH F SUBLINGUAL SCH (21:00)
== END 2020-08-24 12:01 | disposition home or self-care (01) ==
LOC: EC 13:46 → 6NMEDSUR 17:02 → 3SCARD 18:39
PROVIDERS: ADMIT Internal Medicine; ATTEND Internal Medicine
DX: R55 Syncope and collapse (principal); K04.7 Periapical abscess without sinus; N17.9 Acute kidney failure, unspecified; E86.0 Dehydration; I10 Essential (primary) hypertension; I47.1 Supraventricular tachycardia; K50.90 Crohn's disease, unspecified, without complications; G43.909 Migraine, unspecified, not intractable, without status migrainosus; I48.91 Unspecified atrial fibrillation; K21.9 Gastro-esophageal reflux disease without esophagitis; M06.9 Rheumatoid arthritis, unspecified; L40.9 Psoriasis, unspecified; F11.10 Opioid abuse, uncomplicated; M10.9 Gout, unspecified; H93.13 Tinnitus, bilateral; D64.9 Anemia, unspecified; Z79.891 Long term (current) use of opiate analgesic; Z79.01 Long term (current) use of anticoagulants; Z91.041 Radiographic dye allergy status; Z79.899 Other long term (current) drug therapy; Z87.442 Personal history of urinary calculi; Z90.49 Acquired absence of other specified parts of digestive tract; Z98.42 Cataract extraction status, left eye; Z98.41 Cataract extraction status, right eye; Z98.890 Other specified postprocedural states; Z86.711 Personal history of pulmonary embolism; Z87.11 Personal history of peptic ulcer disease; Z82.3 Family history of stroke; Z82.49 Family history of ischemic heart disease and other diseases of the circulatory system
CPT/HCPCS: 96376 ×2; 96366; 96365; 96375; 99284; 36415; 93005; 80053; 83605; 84484; 85025; 85610; 85730; 87040; 87635; G0378 ×3; J2270 ×2; J2405; J0295 ×2; J1885

== ENCOUNTER 2020-10-18 08:27 | Inpatient (IN) | payer BC, MEDICARE ==
[2020-10-18] MEDS ORDERED: ONDANSETRON 4 MG/2 ML VIAL IVP STA (08:53)
[2020-10-18] MEDS ORDERED: SODIUM CHLORIDE 0.9% 1,000 ML IV STA (08:53)
[2020-10-18] MEDS ORDERED: HYDROmorphone 0.5 MG/0.5 ML SYRINGE IVP STA ×2 (08:53→09:59)
[2020-10-18] MEDS ORDERED: SODIUM CHLORIDE 0.9% 500 ML 500 ML IV STA (08:53)
--- NOTE | 2020-10-18 08:58 | ED ---
Abdominal Pain HPI - General Chief Complaint: Abdominal Pain Stated Complaint: Abd pain Time Seen by Provider: 10/18/20 08:43 Source: patient, RN notes reviewed Mode of arrival: ambulatory Limitations: no limitations - History of Present Illness Initial Comments: 70-year-old male presents emergency Department with chief complaint of increasing abdominal pain last few weeks. Patient states been having recurrent exacerbations of his Crohn's disease. Patient is followed by GI he is on Humira, prednisone 20 mg daily. Patient states that he was on recent course of antibiotics for several weeks. He states his chronic diarrhea which has not worsened usual denies any significant bleeding. Patient states pain is unbearable. Patient denies any dysuria, hematuria, fever, chills, headache, dizziness, chest pain shortness breath - Related Data Home Medications Medication Instructions Recorded Confirmed Orphenadrine Citrate [Orphenadrine 100 mg PO BID 12/08/17 08/23/20 Citrate ER] Adalimumab [Humira Pen] 40 mg SQ Q14D 04/25/18 08/23/20 Febuxostat [Uloric] 80 mg PO DAILY 05/05/18 08/23/20 Buprenorphine HCl/Naloxone HCl 1 film SL HS 12/12/18 08/23/20 [Suboxone 2 mg-0.5 mg Sl Film] Omeprazole 20 mg PO BID 12/12/18 08/23/20 Penicillin V Potassium [Pen Vee K] 500 mg PO QID 08/23/20 08/23/20 Previous Rx's Medication Instructions Recorded Metoprolol Succinate (ER) [Toprol 25 mg PO DAILY #30 tab.er.24h 07/16/20 XL] lisinopriL [Zestril] 5 mg PO DAILY #30 tab 07/16/20 Amoxic-Pot Clav 875-125Mg 1 tab PO Q12HR 7 Days #14 tab 08/24/20 [Augmentin 875-125] traMADol HCL [Ultram] 100 mg PO Q6HR PRN 3 Days #24 tab 08/24/20 Allergies Allergy/AdvReac Type Severity Reaction Status Date / Time Iodinated Contrast Media Allergy Anaphylaxis Verified 10/18/20 08:40 [Iodinated Contrast Media - IV Dye] Review of Systems ROS Statement: Those systems with pertinent positive or pertinent negative responses have been documented in the HPI. ROS Other: All systems not noted in ROS Statement are negative. Past Medical History Past Medical History: Atrial Fibrillation, GERD/Reflux, Hypertension, Rheumatoid Arthritis (RA), Skin Disorder, Supraventricular Tachycardia (SVT) Additional Past Medical History / Comment(s): hx CROHN'S (takes tresa), IBS, chronic diarrhea, migraines-, hx ulcers, anemia, gout, kidney stones, psoriasis, bilateral tinnitis., pinched sciatic nerve, C-Diff 2017, History of Any Multi-Drug Resistant Organisms: None Reported Date of last positivie culture/infection: stool MDRO Source:: 2017 Past Surgical History: Bowel Resection, Cardiac Ablation, Cholecystectomy, Heart Catheterization, Hernia Repair, Orthopedic Surgery, Tonsillectomy Additional Past Surgical History / Comment(s): partial gastrectomy (ulcers), bowel resections, fecal transplant, bilateral knee arthroscopic surgery, EGD/colonoscopies, R inguinal hernia repair, bilat cataract removal, Past Anesthesia/Blood Transfusion Reactions: Blood Transfusion Reaction, Motion Sickness Additional Past Anesthesia/Blood Transfusion Reaction / Comment(s): BLOOD TRANSFUSION- BROKE OUT IN HIVES age 21 Past Psychological History: No Psychological Hx Reported Smoking Status: Never smoker Past Alcohol Use History: None Reported Past Drug Use History: None Reported - Past Family History Mother Family Medical History: Pulmonary Embolus Additional Family Medical History / Comment(s): AGE 73-DE, STROKE DURING CARATID PROCEDURE General Exam Limitations: no limitations General appearance: alert, in no apparent distress Head exam: Present: atraumatic, normocephalic, normal inspection Respiratory exam: Present: normal lung sounds bilaterally. Absent: respiratory distress, wheezes, rales, rhonchi, stridor Cardiovascular Exam: Present: regular rate, normal rhythm, normal heart sounds. Absent: systolic murmur, diastolic murmur, rubs, gallop, clicks GI/Abdominal exam: Present: soft, tenderness (Moderate right-sided abdominal tenderness), normal bowel sounds. Absent: distended, guarding, rebound, rigid Back exam: Absent: CVA tenderness (R), CVA tenderness (L) Neurological exam: Present: alert Skin exam: Present: warm, dry, intact, normal color. Absent: rash Course Vital Signs 10/18/20 10/18/20 08:37 10:01 Temperature 98.7 F Pulse Rate 65 86 Respiratory 18 16 Rate Blood Pressure 172/75 O2 Sat by Pulse 100 100 Oximetry Medical Decision Making - Medical Decision Making 70-year-old presented for abdominal pain. Patient has acute Crohn's exacerbation. Patient's pain is not improving. Patient is found to be acidotic with a bicarbonate 16, fluid dehydrated. Patient was given fluid bolus. Patient given initial dose of IV steroids will be admitted for IV steroids, pain control. - Lab Data Result diagrams: 10/18/20 09:02 10/18/20 09:02 Lab Results 10/18/20 10/18/20 10/18/20 Range/Units 09:02 09:02 09:02 WBC 7.8 (3.8-10.6) k/uL RBC 3.87 L (4.30-5.90) m/uL Hgb 9.3 L (13.0-17.5) gm/dL Hct 30.9 L (39.0-53.0) % MCV 79.9 L (80.0-100.0) fL MCH 24.0 L (25.0-35.0) pg MCHC 30.1 L (31.0-37.0) g/dL RDW 16.3 H (11.5-15.5) % Plt Count 226 (150-450) k/uL MPV 6.8 Neutrophils % 86 % Lymphocytes % 11 % Monocytes % 1 % Eosinophils % 0 % Basophils % 0 % Neutrophils # 6.8 (1.3-7.7) k/uL Lymphocytes # 0.9 L (1.0-4.8) k/uL Monocytes # 0.1 (0-1.0) k/uL Eosinophils # 0.0 (0-0.7) k/uL Basophils # 0.0 (0-0.2) k/uL Hypochromasia Marked Anisocytosis Slight Sodium 137 (137-145) mmol/L Potassium 4.6 (3.5-5.1) mmol/L Chloride 112 H (98-107) mmol/L Carbon Dioxide 16 L (22-30) mmol/L Anion Gap 9 mmol/L BUN 27 H (9-20) mg/dL Creatinine 1.12 (0.66-1.25) mg/dL Est GFR (CKD-EPI)AfAm 77 (>60 ml/min/1.73 sqM) Est GFR (CKD-EPI)NonAf 66 (>60 ml/min/1.73 sqM) Glucose 192 H (74-99) mg/dL Plasma Lactic Acid Kal 1.4 (0.7-2.0) mmol/L Calcium 9.8 (8.4-10.2) mg/dL Total Bilirubin 0.4 (0.2-1.3) mg/dL AST 29 (17-59) U/L ALT 23 (4-49) U/L Alkaline Phosphatase 47 (38-126) U/L Total Protein 7.2 (6.3-8.2) g/dL Albumin 3.9 (3.5-5.0) g/dL Amylase 158 H (30-110) U/L Lipase 74 (23-300) U/L Disposition Clinical Impression: Exacerbation of Crohn's disease, Diarrhea, Nausea and vomiting, Dehydration, Metabolic acidosis Disposition: ADMITTED IP TO THIS HOSP Condition: Fair Referrals: Minh Saldaña MD [Primary Care Provider] - 1-2 days
[2020-10-18 09:08] LABS: Anisocytosis Slight; Basophils % (A) 0 %; Eosinophils % (A) 0 %; HCT 30.9 % (39.0-53.0); HGB 9.3 gm/dL (13.0-17.5); Hypochromasia Marked; Lymphocytes # (A) 0.9 k/uL (1.0-4.8); Lymphocytes % (A) 11 %; MCHC 30.1 g/dL (31.0-37.0); MCV 79.9 fL (80.0-100.0); Mean Platelet Volume 6.8; Monocytes # (A) 0.1 k/uL (0-1.0); Monocytes % (A) 1 %; Neutrophils # (A) 6.8 k/uL (1.3-7.7); Neutrophils % (A) 86 %; Platelet Count 226 k/uL (150-450); RBC 3.87 m/uL (4.30-5.90); RDW 16.3 % (11.5-15.5); WBC 7.8 k/uL (3.8-10.6)
[2020-10-18 09:25] LABS: Albumin 3.9 g/dL (3.5-5.0); Calcium 9.8 mg/dL (8.4-10.2); Potassium 4.6 mmol/L (3.5-5.1); Total Bilirubin 0.4 mg/dL (0.2-1.3); Total Protein 7.2 g/dL (6.3-8.2)
--- NOTE | 2020-10-18 09:59 | CT ---
EXAMINATION TYPE: CT abdomen pelvis wo con DATE OF EXAM: 10/18/2020 HISTORY: periumbilical to RLQ pain, history of Crohn's disease COMPARISON: 05/07/2020 CT DLP: 491.8 mGycm. Automated Exposure Control for Dose Reduction was Utilized. TECHNIQUE: CT scan of the abdomen and pelvis is performed without IV contrast. FINDINGS: Lack of IV and oral contrast limits evaluation. Included lower lungs: Subsegmental atelectatic changes. Included cardiac structures: Intracardiac valvular and none valvular calcifications again seen. Low a ttenuation of the cardiac chambers suggests anemia. Liver: Stable calcification the right hepatic lobe. Gallbladder: Cholecystectomy Spleen: Scattered parenchymal calcifications. Pancreas: Unremarkable for the patient's age. Adrenal glands: Unremarkable Kidneys: There is nonobstructive bilateral nephrolithiasis which is not significantly changed. 021. Right renal cortical cysts, the largest in the right kidney measures 3 cm. Included lower esophagus: Metallic densities (postsurgical?) Again demonstrated in the lower mediasti num and at the gastroesophageal junction. Or esophagus mildly distended. Stomach: Unremarkable Small bowel: Unremarkable Large bowel: Moderate amount of stool. Anastomosis in the right side of the colon and seen. Stable ap parent circumferential thickening of the rectal wall. Appendix: Not visualized. Hernias: Nonvisualized Major vascular structures: Nonaneurysmal atherosclerotic aorta and major branches. Noncollapsed IVC. Peritoneum: No pneumoperitoneum or ascites Lymph nodes: No enlarged retroperitoneal or pelvic lymph nodes Osseous structures: No acute osseous abnormality. No aggressive osseous lesion. Mild to moderate dege nerative changes seen in the spine. Soft tissue: No significant abnormality. IMPRESSION: 1. No evidence of acute abdominal or pelvic process. 2. Overall there is no significant change in appearance of the abdomen and pelvis compared to 05/07/19 21: a- nonobstructive nephrolithiasis and right renal cortical cysts.
[2020-10-18] MEDS: SODIUM CHLORIDE 0.9% 1,000 ML IV SCH ×2 (10:01→17:29)
[2020-10-18] MEDS ORDERED: methylPREDNISolone SOD SUCCI 125 MG/2 ML VIAL IV STA (10:47)
[2020-10-18] MEDS ORDERED: NALOXONE 0.4 MG/ML 1 ML VIAL IV PRN (10:50)
[2020-10-18] MEDS ORDERED: ONDANSETRON 4 MG/2 ML VIAL IVP PRN (10:50)
[2020-10-18] MEDS: methylPREDNISolone SOD SUCCI 40 MG/ML 1 ML VIAL IV SCH ×2 (11:11→16:48)
[2020-10-18 11:28] LABS: Appearance,Urine Clear (Clear); Bilirubin,Urine Negative (Negative); Blood,Urine Negative (Negative); Color,Urine Yellow; Glucose,Urine (UA) Trace (Negative); Ketones,Urine Negative (Negative); Leukocyte Esterase,Urine Negative (Negative); Nitrite,Urine Negative (Negative); PH, Urine 5.5 (5.0-8.0); Protein,Urine Negative (Negative); Specific Gravity,Urine 1.019 (1.001-1.035); Urobilinogen,Urine <2.0 mg/dL (<2.0)
[2020-10-18 12:12] LABS: Glucose,Whole Blood 141 mg/dL (75-99)
[2020-10-18] MEDS: HYDROcodone/APAP 5-325MG 1 EACH TAB PO PRN ×2 (12:20→16:47)
[2020-10-18] MEDS: INSULIN ASPART (NovoLOG) 100 UNIT/ML VIAL SQ SCH ×3 (12:43→22:20)
[2020-10-18] MEDS: HYDROmorphone 0.5 MG/0.5 ML SYRINGE IVP PRN ×3 (14:44→23:06)
[2020-10-18 16:45] LABS: Glucose,Whole Blood 178 mg/dL (75-99)
[2020-10-18] MEDS: amLODIPine 10 MG TAB PO SCH (16:48)
[2020-10-18 22:04] LABS: Glucose,Whole Blood 197 mg/dL (75-99)
[2020-10-18] MEDS: Buprenorphine Hcl/Naloxone Hcl [Suboxone 2 Mg-0.5 Mg Sl Film] SUBLINGUAL SCH (22:19)
[2020-10-18] MEDS: CYCLOBENZAPRINE 10 MG TAB PO SCH (22:20)
[2020-10-18] MEDS: allopurinoL 100 MG TAB PO SCH (22:21)
--- NOTE | 2020-10-18 23:33 | P.HPIM ---
History of Present Illness H&P Date: 10/18/20 Chief Complaint: Abdominal pain, Nausea and vomiting Mr. Rajan is a 70-year-old male with a past medical history of atrial fibrillation, GERD, hypertension, rheumatoid arthritis, Crohn's disease on Humira, migraine headaches, nephrolithiasis, Psoriasis, bilateral tinnitus coming in the hospital with a chief complaint of nausea vomiting and diarrhea along with abdominal pain. Patient states that he has been having abdominal discomfort mostly on the right upper and lower quadrants for the past few weeks on and off but yesterday his pain was significantly worse. He also noted to have 7-8 bowel movements that are watery and threw up couple of times. Patient states that he lost his insurance and was noncompliant in taking his prednisone for his Crohn's disease. He is on Humira and his last dose was yesterday and he takes it biweekly. Patient denies having any fevers chills or rigors. No chest pain or palpitations. No cough or difficulty breathing. No dysuria or hematuria. In the ER at the time of admission patient's temperature 98.7, heart rate 67, respiratory 18, blood pressure 127/75, saturating 100% on room air. And on reviewing his labs white count of 7.8, hemoglobin 9.3, platelets 226. Sodium 137, potassium 4.6, chloride 112, bicarb 16, BUN 27, creatinine 1.12. Urine analysis negative for nitrites and leukocyte esterase. C. difficile negative. Patient also had a CAT scan of the abdomen and pelvis that was negative for any acute abdominal pelvic process but was showing nonobstructive nephrolithiasis and right renal cortical cysts. Review of Systems REVIEW OF SYSTEMS: CONSTITUTIONAL: No fever, no malaise, no fatigue. HEENT: No recent visual problems or hearing problems. Denied any sore throat. CARDIOVASCULAR: No chest pain, palpitations or lower extremity swelling PULMONARY: No shortness of breath, no cough, no hemoptysis. GASTROINTESTINAL: As per HPI NEUROLOGICAL: No headaches, no weakness, no numbness. HEMATOLOGICAL: Denies any bleeding or petechiae. GENITOURINARY: Denies any burning micturition, frequency, or urgency. MUSCULOSKELETAL/RHEUMATOLOGICAL: Denies any joint pain, swelling, or any muscle pain. ENDOCRINE: Denies any polyuria or polydipsia. The rest of the 14-point review of systems is negative. Past Medical History Past Medical History: Atrial Fibrillation, GERD/Reflux, Hypertension, Rheumatoid Arthritis (RA), Skin Disorder, Supraventricular Tachycardia (SVT) Additional Past Medical History / Comment(s): hx CROHN'S (takes tresa), IBS, chronic diarrhea, migraines-, hx ulcers, anemia, gout, kidney stones, psoriasis, bilateral tinnitis., pinched sciatic nerve, C-Diff 2017, neuropathy History of Any Multi-Drug Resistant Organisms: None Reported Date of last positivie culture/infection: stool MDRO Source:: 2017 Past Surgical History: Bowel Resection, Cardiac Ablation, Cholecystectomy, Heart Catheterization, Hernia Repair, Orthopedic Surgery, Tonsillectomy Additional Past Surgical History / Comment(s): 1/3 of stomach removed (partial gastrectomy), ulcers, bowel resections, fecal transplant 2017, bilateral knee arthroscopic surgery, EGD/colonoscopies, R inguinal hernia repair, bilat cataract removal, Past Anesthesia/Blood Transfusion Reactions: Blood Transfusion Reaction, Motion Sickness Additional Past Anesthesia/Blood Transfusion Reaction / Comment(s): BLOOD TRANSFUSION- BROKE OUT IN HIVES age 21 Past Psychological History: Anxiety Smoking Status: Never smoker Past Alcohol Use History: Occasional Additional Past Alcohol Use History / Comment(s): every other day 2-3 beers per patient. Past Drug Use History: None Reported Additional Drug Use History / Comment(s): Hx of opiate dependency-on suboxone. - Past Family History Mother Family Medical History: Pulmonary Embolus Additional Family Medical History / Comment(s): AGE 73-[place], STROKE DURING CARATID PROCEDURE Medications and Allergies Home Medications Medication Instructions Recorded Confirmed Type Orphenadrine Citrate [Orphenadrine 100 mg PO BID 12/08/17 10/18/20 History Citrate ER] Adalimumab [Humira Pen] 40 mg SQ Q14D 04/25/18 10/18/20 History Febuxostat [Uloric] 80 mg PO DAILY 05/05/18 10/18/20 History Buprenorphine HCl/Naloxone HCl 1 film SL HS 12/12/18 10/18/20 History [Suboxone 2 mg-0.5 mg Sl Film] amLODIPine [Norvasc] 10 mg PO DAILY 10/18/20 10/18/20 History predniSONE [Deltasone] See Taper PO DIRECTED 10/18/20 10/18/20 History Allergies Allergy/AdvReac Type Severity Reaction Status Date / Time Iodinated Contrast Media Allergy Anaphylaxis Verified 10/18/20 10:58 [Iodinated Contrast Media - IV Dye] Physical Exam Vitals: Vital Signs Temp Pulse Resp BP Pulse Ox 10/18/20 12:33 16 10/18/20 11:12 59 L 16 151/70 99 10/18/20 10:01 86 16 100 10/18/20 08:37 98.7 F 65 18 172/75 100 Intake and Output 10/18/20 10/18/20 10/18/20 06:59 14:59 22:59 Other: Weight 72.983 kg PHYSICAL EXAMINATION: GENERAL: The patient is alert and oriented x3, not in any acute distress. Well developed, well nourished. HEENT: Pupils are round and equally reacting to light. EOMI. No scleral icterus. + mild conjunctival pallor. Normocephalic, atraumatic. No pharyngeal erythema. No thyromegaly. CARDIOVASCULAR: S1 and S2 present. No murmurs, rubs, or gallops. PULMONARY: Chest is clear to auscultation, no wheezing or crackles. ABDOMEN: Soft, mild distended, hyperactive bowel sounds. + mild tenderness in the right upper and lower quadrants MUSCULOSKELETAL: No joint swelling or deformity. EXTREMITIES: No edema NEUROLOGICAL: Gross neurological examination did not reveal any focal deficits. SKIN:No rash Results CBC & Chem 7: 10/18/20 09:02 10/18/20 09:02 Labs: Abnormal Lab Results - Last 24 Hours (Table) 10/18/20 10/18/20 10/18/20 Range/Units 09:02 09:02 11:12 RBC 3.87 L (4.30-5.90) m/uL Hgb 9.3 L (13.0-17.5) gm/dL Hct 30.9 L (39.0-53.0) % MCV 79.9 L (80.0-100.0) fL MCH 24.0 L (25.0-35.0) pg MCHC 30.1 L (31.0-37.0) g/dL RDW 16.3 H (11.5-15.5) % Lymphocytes # 0.9 L (1.0-4.8) k/uL Chloride 112 H (98-107) mmol/L Carbon Dioxide 16 L (22-30) mmol/L BUN 27 H (9-20) mg/dL Glucose 192 H (74-99) mg/dL POC Glucose (mg/dL) (75-99) mg/dL Amylase 158 H (30-110) U/L Urine Glucose (UA) Trace H (Negative) 10/18/20 Range/Units 12:10 RBC (4.30-5.90) m/uL Hgb (13.0-17.5) gm/dL Hct (39.0-53.0) % MCV (80.0-100.0) fL MCH (25.0-35.0) pg MCHC (31.0-37.0) g/dL RDW (11.5-15.5) % Lymphocytes # (1.0-4.8) k/uL Chloride (98-107) mmol/L Carbon Dioxide (22-30) mmol/L BUN (9-20) mg/dL Glucose (74-99) mg/dL POC Glucose (mg/dL) 141 H (75-99) mg/dL Amylase (30-110) U/L Urine Glucose (UA) (Negative) Thrombosis Risk Factor Assmnt - Choose All That Apply Each Risk Factor Represents 2 Points: Age 61-74 years Thrombosis Risk Factor Assessment Total Risk Factor Score: 2 Thrombosis Risk Factor Assessment Level: Low Risk Assessment and Plan Assessment: ASSESSMENT Abdominal pain -possibly secondary to exacerbation of Crohn's Crohn's disease maintained on Humira and prednisone CKD stage II Chronic anemia History of atrial fibrillation Rheumatoid arthritis Hypertension Migraine headaches Bilateral tinnitus with hearing loss Psoriasis History of nephrolithiasis and renal cysts History of partial gastrectomy History of right inguinal hernia repair History of fecal transplant done in 2017 PLAN: Symptomatic management for nausea and vomiting continue with Zofran and IV fluids. Patient took his Humira yesterday. He usually takes 20 mg of prednisone daily for his Crohn's. So we will start him on Solu-Medrol 20 mg IV every 6 hours for possible exacerbation of Crohn's. C. difficile negative. Patient has been restarted on his home medications. Further recommendations to follow depending on the patient.
[2020-10-19] MEDS: methylPREDNISolone SOD SUCCI 40 MG/ML 1 ML VIAL IV SCH ×4 (00:38→18:12)
[2020-10-19] MEDS: HYDROmorphone 0.5 MG/0.5 ML SYRINGE IVP PRN ×6 (02:30→21:35)
[2020-10-19] MEDS: SODIUM CHLORIDE 0.9% 1,000 ML IV SCH ×3 (03:58→16:54)
[2020-10-19 06:09] LABS: Anisocytosis Slight; Basophils % (A) 0 %; Eosinophils % (A) 0 %; HGB 8.4 gm/dL (13.0-17.5); Hypochromasia Marked; Lymphocytes # (A) 0.8 k/uL (1.0-4.8); Lymphocytes % (A) 8 %; MCH 24.7 pg (25.0-35.0); MCHC 31.2 g/dL (31.0-37.0); MCV 79.4 fL (80.0-100.0); Mean Platelet Volume 7.2; Monocytes # (A) 0.2 k/uL (0-1.0); Monocytes % (A) 2 %; Neutrophils # (A) 8.7 k/uL (1.3-7.7); Neutrophils % (A) 90 %; Platelet Count 188 k/uL (150-450); RDW 16.1 % (11.5-15.5); WBC 9.7 k/uL (3.8-10.6)
[2020-10-19 06:18] LABS: African American GFR (CKD) 88 (>60 ml/min/1.73 sqM); Anion Gap 6 mmol/L; Blood Urea Nitrogen 26 mg/dL (9-20); Calcium 8.7 mg/dL (8.4-10.2); Carbon Dioxide 20 mmol/L (22-30); Chloride 110 mmol/L (98-107); Glucose 165 mg/dL (74-99); Non-African American GFR(CKD) 76 (>60 ml/min/1.73 sqM); Potassium 4.2 mmol/L (3.5-5.1); Sodium 136 mmol/L (137-145)
[2020-10-19 07:16] LABS: Glucose,Whole Blood 158 mg/dL (75-99)
[2020-10-19] MEDS: allopurinoL 100 MG TAB PO SCH ×2 (07:39→21:28)
[2020-10-19] MEDS: CYCLOBENZAPRINE 10 MG TAB PO SCH ×2 (07:39→21:28)
[2020-10-19] MEDS: amLODIPine 10 MG TAB PO SCH (07:39)
[2020-10-19] MEDS: INSULIN ASPART (NovoLOG) 100 UNIT/ML VIAL SQ SCH ×4 (07:40→21:35)
[2020-10-19 10:49] LABS: Glucose,Whole Blood 189 mg/dL (75-99)
[2020-10-19] MEDS: HYDROcodone/APAP 5-325MG 1 EACH TAB PO PRN ×2 (10:49→16:53)
[2020-10-19 15:18] LABS: Hemoglobin A1C 6.4 % (4.0-6.0)
[2020-10-19 16:59] LABS: Glucose,Whole Blood 254 mg/dL (75-99)
[2020-10-19] MEDS: Buprenorphine Hcl/Naloxone Hcl [Suboxone 2 Mg-0.5 Mg Sl Film] SUBLINGUAL SCH (21:28)
[2020-10-19 21:31] LABS: Glucose,Whole Blood 145 mg/dL (75-99)
[2020-10-20] MEDS: methylPREDNISolone SOD SUCCI 40 MG/ML 1 ML VIAL IV SCH ×4 (00:13→17:06)
[2020-10-20] MEDS: HYDROmorphone 0.5 MG/0.5 ML SYRINGE IVP PRN ×3 (00:15→08:57)
[2020-10-20] MEDS: SODIUM CHLORIDE 0.9% 1,000 ML IV SCH ×4 (00:17→21:41)
--- NOTE | 2020-10-20 01:57 | P.PN ---
Subjective Progress Note Date: 10/19/20 Principal diagnosis: Exacerbation of Crohn's Mr. Rajan is a 70-year-old male with a past medical history of atrial fibrillation, GERD, hypertension, rheumatoid arthritis, Crohn's disease on Humira, migraine headaches, nephrolithiasis, Psoriasis, bilateral tinnitus coming in the hospital with a chief complaint of nausea vomiting and diarrhea along with abdominal pain. Patient states that he has been having abdominal discomfort mostly on the right upper and lower quadrants for the past few weeks on and off but yesterday his pain was significantly worse. He also noted to have 7-8 bowel movements that are watery and threw up couple of times. Patient states that he lost his insurance and was noncompliant in taking his prednisone for his Crohn's disease. He is on Humira and his last dose was yesterday and he takes it biweekly. Patient denies having any fevers chills or rigors. No chest pain or palpitations. No cough or difficulty breathing. No dysuria or hematuria. In the ER at the time of admission patient's temperature 98.7, heart rate 67, respiratory 18, blood pressure 127/75, saturating 100% on room air. And on reviewing his labs white count of 7.8, hemoglobin 9.3, platelets 226. Sodium 137, potassium 4.6, chloride 112, bicarb 16, BUN 27, creatinine 1.12. Urine analysis negative for nitrites and leukocyte esterase. C. difficile negative. Patient also had a CAT scan of the abdomen and pelvis that was negative for any acute abdominal pelvic process but was showing nonobstructive nephrolithiasis and right renal cortical cysts. On 10/19/2020 -patient is seen and examined at the bedside. Patient states that h is abdominal pain is better. He had a bowel movement this morning, denies any blood in the stool. No more diarrhea. Patient is able to tolerate clear liquids. Patient denies any fevers chills or rigors. No chest pain or palpitations. No cough or difficulty breathing. No swelling of lower lower extremities. On reviewing the vitals from this morning temperature 97.8, heart rate 64, respiratory 20, blood pressure 143/68, saturating at 98% on room air. Reviewing the labs from this morning white count of 9.7, hemoglobin 8.4, platelets 188. Sodium 136, potassium 4.2, chloride 110, bicarb 20, BUN 26, creatinine 1 hemoglobin A1c 6.4. Patient's medications have been reviewed he is [place], allopurinol, Norvasc, Flexeril, Dilaudid, NovoLog, Solu-Medrol 20 IV every 6 hours, Suboxone, Zofran, IV fluids at 130 cc/h Objective - Vital Signs Vital signs: Vital Signs Temp 97.8 F 10/19/20 05:00 Pulse 64 10/19/20 05:00 Resp 20 10/19/20 05:00 BP 153/68 10/19/20 05:00 Pulse Ox 98 10/19/20 05:00 Intake & Output 10/18/20 10/19/20 10/19/20 18:59 06:59 18:59 Intake Total 100 Balance 100 Weight 72.983 kg Intake: Oral 100 Other: # Voids 2 2 2 - Exam PHYSICAL EXAMINATION: GENERAL: The patient is alert and oriented x3, not in any acute distress. Well developed, well nourished. HEENT: Pupils are round and equally reacting to light. EOMI. No scleral icterus. + mild conjunctival pallor. CARDIOVASCULAR: S1 and S2 present. No murmurs, rubs, or gallops. PULMONARY: Chest is clear to auscultation, no wheezing or crackles. ABDOMEN: Soft, mild distended, hyperactive bowel sounds. + mild tenderness in the right upper and lower quadrants MUSCULOSKELETAL: No joint swelling or deformity. EXTREMITIES: No edema NEUROLOGICAL: Gross neurological examination did not reveal any focal deficits. SKIN:No rash - Labs CBC & Chem 7: 10/19/20 05:34 10/19/20 05:34 Labs: Abnormal Lab Results - Last 24 Hours (Table) 10/18/20 10/18/20 10/18/20 Range/Units 11:12 12:10 16:44 RBC (4.30-5.90) m/uL Hgb (13.0-17.5) gm/dL Hct (39.0-53.0) % MCV (80.0-100.0) fL MCH (25.0-35.0) pg RDW (11.5-15.5) % Neutrophils # (1.3-7.7) k/uL Lymphocytes # (1.0-4.8) k/uL Sodium (137-145) mmol/L Chloride (98-107) mmol/L Carbon Dioxide (22-30) mmol/L BUN (9-20) mg/dL Glucose (74-99) mg/dL POC Glucose (mg/dL) 141 H 178 H (75-99) mg/dL Urine Glucose (UA) Trace H (Negative) 10/18/20 10/19/20 10/19/20 Range/Units 21:52 05:34 05:34 RBC 3.40 L (4.30-5.90) m/uL Hgb 8.4 L (13.0-17.5) gm/dL Hct 27.0 L (39.0-53.0) % MCV 79.4 L (80.0-100.0) fL MCH 24.7 L (25.0-35.0) pg RDW 16.1 H (11.5-15.5) % Neutrophils # 8.7 H (1.3-7.7) k/uL Lymphocytes # 0.8 L (1.0-4.8) k/uL Sodium 136 L (137-145) mmol/L Chloride 110 H (98-107) mmol/L Carbon Dioxide 20 L (22-30) mmol/L BUN 26 H (9-20) mg/dL Glucose 165 H (74-99) mg/dL POC Glucose (mg/dL) 197 H (75-99) mg/dL Urine Glucose (UA) (Negative) 10/19/20 10/19/20 Range/Units 07:11 10:47 RBC (4.30-5.90) m/uL Hgb (13.0-17.5) gm/dL Hct (39.0-53.0) % MCV (80.0-100.0) fL MCH (25.0-35.0) pg RDW (11.5-15.5) % Neutrophils # (1.3-7.7) k/uL Lymphocytes # (1.0-4.8) k/uL Sodium (137-145) mmol/L Chloride (98-107) mmol/L Carbon Dioxide (22-30) mmol/L BUN (9-20) mg/dL Glucose (74-99) mg/dL POC Glucose (mg/dL) 158 H 189 H (75-99) mg/dL Urine Glucose (UA) (Negative) Assessment and Plan Assessment: ASSESSMENT Abdominal pain -possibly secondary to exacerbation of Crohn's Crohn's disease maintained on Humira and prednisone CKD stage II Chronic anemia History of atrial fibrillation Rheumatoid arthritis Hypertension Migraine headaches Bilateral tinnitus with hearing loss Psoriasis History of nephrolithiasis and renal cysts History of partial gastrectomy History of right inguinal hernia repair History of fecal transplant done in 2017 PLAN: Symptomatic management for nausea and vomiting continue with Zofran and IV fluids. Patient took his Humira yesterday. He usually takes 20 mg of prednisone daily for his Crohn's. So we will start him on Solu-Medrol 20 mg IV every 6 hours for possible exacerbation of Crohn's. C. difficile negative. Aron garcia has been restarted on his home medications. Symptomatic improvement, will advance the diet are tolerated. Further recommendations to follow depending on the patient.
[2020-10-20 06:06] LABS: Anisocytosis Slight; Basophils % (A) 0 %; Eosinophils % (A) 0 %; HCT 26.2 % (39.0-53.0); Hypochromasia Marked; Lymphocytes # (A) 0.5 k/uL (1.0-4.8); Lymphocytes % (A) 5 %; MCH 24.7 pg (25.0-35.0); MCHC 30.6 g/dL (31.0-37.0); MCV 80.6 fL (80.0-100.0); Mean Platelet Volume 7.1; Monocytes # (A) 0.2 k/uL (0-1.0); Monocytes % (A) 2 %; Neutrophils # (A) 10.2 k/uL (1.3-7.7); Neutrophils % (A) 93 %; Platelet Count 173 k/uL (150-450); RBC 3.25 m/uL (4.30-5.90); RDW 16.1 % (11.5-15.5)
[2020-10-20 07:04] LABS: Glucose,Whole Blood 172 mg/dL (75-99)
[2020-10-20] MEDS: amLODIPine 10 MG TAB PO SCH (07:26)
[2020-10-20] MEDS: INSULIN ASPART (NovoLOG) 100 UNIT/ML VIAL SQ SCH ×4 (07:26→21:42)
[2020-10-20] MEDS: allopurinoL 100 MG TAB PO SCH ×2 (07:27→21:40)
[2020-10-20] MEDS: CYCLOBENZAPRINE 10 MG TAB PO SCH ×2 (07:27→21:41)
--- NOTE | 2020-10-20 09:14 | P.PN ---
Subjective Progress Note Date: 10/20/20 Principal diagnosis: The patient is essentially admitted for recurrent acute exacerbation of Crohn's colitis. The patient still has bloating but seems to be feeling better. Marleny ating diet. No explosive bowel movement stated. The patient also has an underlying history of opiate dependence which is been stable on Suboxone Objective - Vital Signs Vital signs: Vital Signs Temp 97.4 F L 10/20/20 04:24 Pulse 73 10/20/20 04:24 Resp 16 10/20/20 08:00 BP 181/90 10/20/20 04:24 Pulse Ox 97 10/20/20 04:24 Intake & Output 10/19/20 10/20/20 10/20/20 18:59 06:59 18:59 Intake Total 2120 Balance 2120 Intake: Intake, IV Titration 1560 Amount Sodium Chloride 0.9% 1, 1560 000 ml @ 130 mls/hr IV . Q7H42M [facility] Rx#:[id number] Oral 560 Other: # Voids 2 - Constitutional General appearance: Present: average body habitus - EENT Eyes: Absent: abnormal pupil - Neck Neck: Absent: lymphadenopathy - Respiratory Respiratory: bilateral: CTA - Cardiovascular Rhythm: regular Heart sounds: normal: S1, S2 Abnormal Heart Sounds: Absent: S3 Gallop - Gastrointestinal General gastrointestinal: Present: soft. Absent: tenderness - Integumentary Integumentary: Absent: rash - Labs CBC & Chem 7: 10/20/20 05:10 10/19/20 05:34 Labs: Abnormal Lab Results - Last 24 Hours (Table) 10/19/20 10/19/20 10/19/20 Range/Units 05:34 10:47 16:58 WBC (3.8-10.6) k/uL RBC (4.30-5.90) m/uL Hgb (13.0-17.5) gm/dL Hct (39.0-53.0) % MCH (25.0-35.0) pg MCHC (31.0-37.0) g/dL RDW (11.5-15.5) % Neutrophils # (1.3-7.7) k/uL Lymphocytes # (1.0-4.8) k/uL POC Glucose (mg/dL) 189 H 254 H (75-99) mg/dL Hemoglobin A1c 6.4 H (4.0-6.0) % 10/19/20 10/20/20 10/20/20 Range/Units 21:30 05:10 07:02 WBC 11.0 H (3.8-10.6) k/uL RBC 3.25 L (4.30-5.90) m/uL Hgb 8.0 L (13.0-17.5) gm/dL Hct 26.2 L (39.0-53.0) % MCH 24.7 L (25.0-35.0) pg MCHC 30.6 L (31.0-37.0) g/dL RDW 16.1 H (11.5-15.5) % Neutrophils # 10.2 H (1.3-7.7) k/uL Lymphocytes # 0.5 L (1.0-4.8) k/uL POC Glucose (mg/dL) 145 H 172 H (75-99) mg/dL Hemoglobin A1c (4.0-6.0) % Assessment and Plan (1) Dehydration Current Visit: Yes Status: Acute Code(s): E86.0 - DEHYDRATION SNOMED Code(s): 65425628 (2) Exacerbation of Crohn's disease Current Visit: Yes Status: Acute Code(s): K50.90 - CROHN'S DISEASE, UNSPEC IFIED, WITHOUT COMPLICATIONS SNOMED Code(s): 74229556 (3) Nausea and vomiting Current Visit: Yes Status: Acute Code(s): R11.2 - NAUSEA WITH VOMITING, UNSPECIFIED SNOMED Code(s): 43076081 (4) Abdominal pain Current Visit: No Status: Acute Code(s): R10.9 - UNSPECIFIED ABDOMINAL PAIN SNOMED Code(s): 98518863
[2020-10-20 09:41] LABS: Anion Gap 8.1 mmol/L (4.00-12.00); Calcium 7.8 mg/dL (8.7-10.3); Carbon Dioxide 18.9 mmol/L (21.6-31.8); Non-African American GFR(CKD) 75.9 (60.0-200.0)
[2020-10-20 11:34] LABS: Glucose,Whole Blood 168 mg/dL (75-99)
[2020-10-20 11:41] VITALS: BMI 20.6
--- NOTE | 2020-10-20 12:23 | P.CONS ---
History of Present Illness - Reason for Consult Consult date: 10/20/20 Crohn's disease Requesting physician: Minh Saladña - Chief Complaint Diarrhea, abdominal pain - History of Present Illness 70-year-old male with multiple medical comorbidities including atrophic fibrillation, GERD, hypertension, rheumatoid arthritis, migraines, ne phrolithiasis, psoriasis, tinnitus and Crohn's disease on biologic therapy with Humira who presented to the hospital due to abdominal pain, diarrhea, nausea and vomiting. The patient reports that his symptoms have been occurring on and off over the past month but worsened for the 3 days prior to presentation. He reported multiple nonbloody loose bowel movements daily approximately 6 per day. He is had 4 bowel movements today. He also reported some abdominal pain and cramping and some bloating at this time. He also had some nonbloody emesis. Patient has a long-standing history of previously requiring surgical intervention at [facility]. He is on Humira every 2 weeks. His last colonoscopy in January 2020 was significant for a normal-appearing colon from rectum to transverse colon with no active colitis noted and a patent ileocolic anastomosis in the transverse colon. On presentation to the hospital WBC 11, hemoglobin 8, platelet counts 173,000 with total bilirubin 0.4, alkaline phosphatase 47, AST 29 and ALT 23. Computed tomography scan of the abdomen negative for any acute intra-abdominal process with nonobstructing nephrolithiasis and right renal cortical cyst. Review of Systems REVIEW OF SYSTEMS: CONSTITUTIONAL: Denies any fevers, chills, weight change or fatigue. CARDIOVASCULAR: Denies any chest pain, palpitations high or low blood pressures RESPIRATORY: Denies any shortness of breath, hemoptysis or cough. GENITOURINARY: No dysuria or hematuria. MUSCULOSKELETAL: No weakness reported. SKIN: Denies any new rashes or lesions, jaundice or pallor. PSYCHIATRIC: Denies any depression or anxiety. NEUROLOGY: Denies headache, denies any new focal deficits. EARS/NOSE/THROAT: No recent hearing change, congestion, nasal discharge or sore throat. EYES: No pain in eyes, discharge or change in vision. GASTROINTESTINAL: As per HPI. Past Medical History Past Medical History: Atrial Fibrillation, GERD/Reflux, Hypertension, Rheumatoid Arthritis (RA), Skin Disorder, Supraventricular Tachycardia (SVT) Additional Past Medical History / Comment(s): hx CROHN'S (takes tresa), IBS, chronic diarrhea, migraines-, hx ulcers, anemia, gout, kidney stones, psoriasis, bilateral tinnitis., pinched sciatic nerve, C-Diff 2017, neuropathy History of Any Multi-Drug Resistant Organisms: None Reported Year Discovered:: stool MDRO Source:: 2017 Past Surgical History: Bowel Resection, Cardiac Ablation, Cholecystectomy, Heart Catheterization, Hernia Repair, Orthopedic Surgery, Tonsillectomy Additional Past Surgical History / Comment(s): 1/3 of stomach removed (partial gastrectomy), ulcers, bowel resections, fecal transplant 2017, bilateral knee arthroscopic surgery, EGD/colonoscopies, R inguinal hernia repair, bilat cataract removal, Past Anesthesia/Blood Transfusion Reactions: Blood Transfusion Reaction, Motion Sickness Additional Past Anesthesia/Blood Transfusion Reaction / Comm: BLOOD TRANSFUSION- BROKE OUT IN HIVES age 21 Past Psychological History: Anxiety Smoking Status: Never smoker Past Alcohol Use History: Occasional Additional Past Alcohol Use History / Comment(s): every other day 2-3 beers per patient. Past Drug Use History: None Reported Additional Drug Use History / Comment(s): Hx of opiate dependency-on suboxone. - Past Family History Mother Family Medical History: Pulmonary Embolus Additional Family Medical History / Comment(s): AGE 73-[place], STROKE DURING CARATID PROCEDURE Medications and Allergies Home Medications Medication Instructions Recorded Confirmed Type Orphenadrine Citrate [Orphenadrine 100 mg PO BID 12/08/17 10/18/20 History Citrate ER] Adalimumab [Humira Pen] 40 mg SQ Q14D 04/25/18 10/18/20 History Febuxostat [Uloric] 80 mg PO DAILY 05/05/18 10/18/20 History Buprenorphine HCl/Naloxone HCl 1 film SL HS 12/12/18 10/18/20 History [Suboxone 2 mg-0.5 mg Sl Film] amLODIPine [Norvasc] 10 mg PO DAILY 10/18/20 10/18/20 History predniSONE [Deltasone] See Taper PO DIRECTED 10/18/20 10/18/20 History Allergies Allergy/AdvReac Type Severity Reaction Status Date / Time Iodinated Contrast Media Allergy Anaphylaxis Verified 10/18/20 10:58 [Iodinated Contrast Media - IV Dye] Physical Exam Vitals: Vital Signs Temp Pulse Resp BP Pulse Ox 10/20/20 08:00 16 10/20/20 04:24 97.4 F L 73 16 181/90 97 10/19/20 20:21 97.9 F 75 16 169/76 97 10/19/20 11:35 97.7 F 65 18 145/66 97 Intake and Output 10/19/20 10/20/20 10/20/20 22:59 06:59 14:59 Intake Total 1080 1040 Balance 1080 1040 Intake: Intake, IV Titration 520 1040 Amount Sodium Chloride 0.9% 1, 520 1040 000 ml @ 130 mls/hr IV . Q7H42M [facility] Rx#:[id number] Oral 560 Other: # Voids 2 On physical examination, patient appears comfortable in no apparent distress. HEAD: Normocephalic, atraumatic. EYES: No scleral icterus. No conjunctival injection. MOUTH: No lesions, tongue midline. NECK: Trachea midline, no gross abnormalities. CHEST: Clear to auscultation with no wheezing or rhonchi appreciated. HEART: Regular rate and rhythm. ABDOMEN: Soft, mildly tender to palpation. Bowel sounds are positive. No organomegaly. No guarding or rigidity. EXTREMITIES: No pedal edema. SKIN: No rashes, no jaundice. NEUROLOGIC: Alert and oriented x3. No focal deficits. Results CBC & Chem 7: 10/20/20 05:10 10/20/20 05:10 Labs: Abnormal Lab Results - Last 24 Hours (Table) 10/19/20 10/19/20 10/19/20 Range/Units 05:34 10:47 16:58 WBC (3.8-10.6) k/uL RBC (4.30-5.90) m/uL Hgb (13.0-17.5) gm/dL Hct (39.0-53.0) % MCH (25.0-35.0) pg MCHC (31.0-37.0) g/dL RDW (11.5-15.5) % Neutrophils # (1.3-7.7) k/uL Lymphocytes # (1.0-4.8) k/uL Chloride (96-109) mmol/L Carbon Dioxide (21.6-31.8) mmol/L BUN (9.0-27.0) mg/dL BUN/Creatinine Ratio (12.00-20.00) Ratio Glucose (70-110) mg/dL POC Glucose (mg/dL) 189 H 254 H (75-99) mg/dL Hemoglobin A1c 6.4 H (4.0-6.0) % Calcium (8.7-10.3) mg/dL 10/19/20 10/20/20 10/20/20 Range/Units 21:30 05:10 05:10 WBC 11.0 H (3.8-10.6) k/uL RBC 3.25 L (4.30-5.90) m/uL Hgb 8.0 L (13.0-17.5) gm/dL Hct 26.2 L (39.0-53.0) % MCH 24.7 L (25.0-35.0) pg MCHC 30.6 L (31.0-37.0) g/dL RDW 16.1 H (11.5-15.5) % Neutrophils # 10.2 H (1.3-7.7) k/uL Lymphocytes # 0.5 L (1.0-4.8) k/uL Chloride 113 H (96-109) mmol/L Carbon Dioxide 18.9 L (21.6-31.8) mmol/L BUN 28.0 H (9.0-27.0) mg/dL BUN/Creatinine Ratio 28.00 H (12.00-20.00) Ratio Glucose 172 H (70-110) mg/dL POC Glucose (mg/dL) 145 H (75-99) mg/dL Hemoglobin A1c (4.0-6.0) % Calcium 7.8 L (8.7-10.3) mg/dL 10/20/20 Range/Units 07:02 WBC (3.8-10.6) k/uL RBC (4.30-5.90) m/uL Hgb (13.0-17.5) gm/dL Hct (39.0-53.0) % MCH (25.0-35.0) pg MCHC (31.0-37.0) g/dL RDW (11.5-15.5) % Neutrophils # (1.3-7.7) k/uL Lymphocytes # (1.0-4.8) k/uL Chloride (96-109) mmol/L Carbon Dioxide (21.6-31.8) mmol/L BUN (9.0-27.0) mg/dL BUN/Creatinine Ratio (12.00-20.00) Ratio Glucose (70-110) mg/dL POC Glucose (mg/dL) 172 H (75-99) mg/dL Hemoglobin A1c (4.0-6.0) % Calcium (8.7-10.3) mg/dL CT scan - abdomen: report reviewed (Computed tomography scan of the abdomen negative for any acute intra-abdominal process with nonobstructing neph rolithiasis and right renal cortical cyst.) Assessment and Plan (1) Diarrhea Narrative/Plan: 70-year-old male with a known history of Crohn's disease on biologic therapy as well as prior right colonic resection secondary to disease presenting with abdominal pain, diarrhea and nausea and vomiting. Computed tomography scan negative for any acute intra-abdominal process. Currently receiving steroid therapy and overall reporting improvement in symptoms. Current Visit: Yes Status: Acute Code(s): R19.7 - DIARRHEA, UNSPECIFIED SNOMED Code(s): 99613160 (2) Nausea and vomiting Current Visit: Yes Status: Acute Code(s): R11.2 - NAUSEA WITH VOMITING, UNSPECIFIED SNOMED Code(s): 10342427 (3) Crohns disease Current Visit: No Status: Acute Code(s): K50.90 - CROHN'S DISEASE, UNSPECIFIED, WITHOUT COMPLICATIONS SNOMED Code(s): 05672053 (4) History of Clostridium difficile colitis Current Visit: No Status: Acute Code(s): Z86.19 - PERSONAL HISTORY OF OTHER INFECTIOUS AND PARASITIC DISEASES SNOMED Code(s): 339825148 Plan: Supportive care Okay for diet as tolerated Continue IV Solu-Medrol, can be discharged on a tapering dose of steroids Continue Humira therapy Testing for Clostridium difficile negative A computed tomography scan of the abdomen reviewed ESR and CRP ordered Follow up in the GI clinic after discharge Thank you for allowing us to participate in the care of the patient
[2020-10-20] MEDS: Buprenorphine Hcl/Naloxone Hcl [Suboxone 2 Mg-0.5 Mg Sl Film] SUBLINGUAL SCH (14:41)
[2020-10-20 16:59] LABS: Glucose,Whole Blood 186 mg/dL (75-99)
[2020-10-20 20:49] LABS: Glucose,Whole Blood 233 mg/dL (75-99)
[2020-10-21] MEDS: methylPREDNISolone SOD SUCCI 40 MG/ML 1 ML VIAL IV SCH ×2 (01:31→06:06)
[2020-10-21 04:39] VITALS: BP 149/72; PULSE 66; RESP 18; TEMP 97.9
[2020-10-21] MEDS: SODIUM CHLORIDE 0.9% 1,000 ML IV SCH (04:39)
[2020-10-21 07:11] LABS: Glucose,Whole Blood 155 mg/dL (75-99)
--- NOTE | 2020-10-21 08:26 | P.DS ---
Providers Date of admission: 10/18/20 10:55 Attending physician: Minh Saldaña Consults: 10/20/20 08:55 Consult Physician Urgent Consulting Provider: Laura Yancey Consult Reason/Comments: Bloating, known to patient Do you want consulting provider notified?: Yes Primary care physician: Minh Saldaña - Discharge Diagnosis(es) (1) Dehydration Current Visit: Yes Status: Acute (2) Exacerbation of Crohn's disease Current Visit: Yes Status: Acute (3) Nausea and vomiting Current Visit: Yes Status: Acute (4) Abdominal pain Current Visit: No Status: Acute Hospital Course: This is a discharge summary a 7-year-old white male with known history of opiate dependence and rheumatoid arthritis and gout and history of hypertension who came in with acute exacerbation of recurrent Crohn's colitis. He is appropriate protocol patient Solu-Medrol and had resolution of his pain. He is tolerating diet without any type of explosive or element of diarrhea. The patient still has some slight pain but feels closer to baseline than not. He will be discharged in stable condition to follow-up with me in 2-3 days. Patient Condition at Discharge: Fair Plan - Discharge Summary Discharge Rx Participant: Yes New Discharge Prescriptions: Continue Orphenadrine Citrate [Orphenadrine Citrate ER] 100 mg PO BID Adalimumab [Humira Pen] 40 mg SQ Q14D Febuxostat [Uloric] 80 mg PO DAILY Buprenorphine HCl/Naloxone HCl [Suboxone 2 mg-0.5 mg Sl Film] 1 film SL HS predniSONE [Deltasone] See Taper PO DIRECTED amLODIPine [Norvasc] 10 mg PO DAILY Discharge Medication List Orphenadrine Citrate [Orphenadrine Citrate ER] 100 mg PO BID 12/08/17 [History] Adalimumab [Humira Pen] 40 mg SQ Q14D 04/25/18 [History] Febuxostat [Uloric] 80 mg PO DAILY 05/05/18 [History] Buprenorphine HCl/Naloxone HCl [Suboxone 2 mg-0.5 mg Sl Film] 1 film SL HS 12/12/18 [History] amLODIPine [Norvasc] 10 mg PO DAILY 10/18/20 [History] predniSONE [Deltasone] See Taper PO DIRECTED 10/18/20 [History] Follow up Appointment(s)/Referral(s): Minh Saldaña MD [Primary Care Provider] - 1-2 days Discharge Disposition: HOME SELF-CARE
[2020-10-21] MEDS: allopurinoL 100 MG TAB PO SCH (08:28)
[2020-10-21] MEDS: CYCLOBENZAPRINE 10 MG TAB PO SCH (08:28)
[2020-10-21] MEDS: amLODIPine 10 MG TAB PO SCH (08:28)
[2020-10-21] MEDS: INSULIN ASPART (NovoLOG) 100 UNIT/ML VIAL SQ SCH (08:28)
== END 2020-10-21 09:24 | disposition home or self-care (01) | DRG 386 ==
LOC: EC 08:27 → 5NMEDONC 10:55
PROVIDERS: ADMIT Family Medicine; ATTEND Family Medicine
DX: K50.10 Crohn's disease of large intestine without complications (principal); E87.2 Acidosis; F11.20 Opioid dependence, uncomplicated; I48.91 Unspecified atrial fibrillation; K21.9 Gastro-esophageal reflux disease without esophagitis; M06.9 Rheumatoid arthritis, unspecified; N18.2 Chronic kidney disease, stage 2 (mild); N20.0 Calculus of kidney; N28.1 Cyst of kidney, acquired; M10.9 Gout, unspecified; I12.9 Hypertensive chronic kidney disease with stage 1 through stage 4 chronic kidney disease, or unspecified chronic kidney disease; E86.0 Dehydration; H93.13 Tinnitus, bilateral; L40.9 Psoriasis, unspecified; K40.90 Unilateral inguinal hernia, without obstruction or gangrene, not specified as recurrent; R11.2 Nausea with vomiting, unspecified; D64.9 Anemia, unspecified; F41.9 Anxiety disorder, unspecified; G43.909 Migraine, unspecified, not intractable, without status migrainosus; H91.90 Unspecified hearing loss, unspecified ear; Z79.899 Other long term (current) drug therapy; Z82.3 Family history of stroke; Z91.14 Patient's other noncompliance with medication regimen; Z91.19 Patient's noncompliance with other medical treatment and regimen; Z92.89 Personal history of other medical treatment; Z86.19 Personal history of other infectious and parasitic diseases; Z87.442 Personal history of urinary calculi; Z90.3 Acquired absence of stomach [part of]
CPT/HCPCS: 36415; 74176; 80048; 80053; 81003; 82150; 83036; 83605; 83690; 85025; 85652; 86140; 87324; 96361; 96374; 96375; 96376; 99285

== ENCOUNTER 2020-12-28 03:04 | Inpatient (IN) | payer BC, MEDICARE ==
[2020-12-28] MEDS ORDERED: HYDROmorphone 0.5 MG/0.5 ML SYRINGE IVP STA (03:26)
[2020-12-28] MEDS ORDERED: SODIUM CHLORIDE 0.9% 1,000 ML IV STA (03:26)
[2020-12-28] MEDS ORDERED: ONDANSETRON 4 MG/2 ML VIAL IVP STA (03:26)
--- NOTE | 2020-12-28 03:46 | ED ---
Abdominal Pain HPI - General Chief Complaint: Abdominal Pain Stated Complaint: Abdominal Pain Time Seen by Provider: 12/28/20 03:17 Source: patient Mode of arrival: ambulatory Limitations: no limitations - History of Present Illness Initial Comments: 70-year-old male patient with past medical history significant for Crohn's disease currently maintained on Humira presents to the emergency department today for evaluation of generalized abdominal pain, nausea, and vomiting. Patient states the pain is worse over the right side of his abdomen. States pa in has been present for the last 2 days. He reports dark tarry stool. Denies fever or chills. Denies any hematemesis or coffee-ground emesis. Does have history of bowel resection, cholecystectomy, partial gastrectomy. Patient denies any recent rash, cough, shortness of breath, chest pain, diarrhea, constipation, back pain, numbness, tingling, dizziness, weakness, hematuria, dysuria, urinary urgency, urinary frequency, headache, visual changes, or any other complaints. - Related Data Home Medications Medication Instructions Recorded Confirmed Orphenadrine Citrate [Orphenadrine 100 mg PO BID 12/08/17 10/18/20 Citrate ER] Adalimumab [Humira Pen] 40 mg SQ Q14D 04/25/18 10/18/20 Febuxostat [Uloric] 80 mg PO DAILY 05/05/18 10/18/20 Buprenorphine HCl/Naloxone HCl 1 film SL HS 12/12/18 10/18/20 [Suboxone 2 mg-0.5 mg Sl Film] amLODIPine [Norvasc] 10 mg PO DAILY 10/18/20 10/18/20 predniSONE [Deltasone] See Taper PO DIRECTED 10/18/20 10/18/20 Allergies Allergy/AdvReac Type Severity Reaction Status Date / Time Iodinated Contrast Media Allergy Anaphylaxis Verified 12/28/20 03:09 [Iodinated Contrast Media - IV Dye] Review of Systems ROS Statement: Those systems with pertinent positive or pertinent negative responses have been documented in the HPI. ROS Other: All systems not noted in ROS Statement are negative. Past Medical History Past Medical History: Atrial Fibrillation, GERD/Reflux, Hypertension, Rheumatoid Arthritis (RA), Skin Disorder, Supraventricular Tachycardia (SVT) Additional Past Medical History / Comment(s): hx CROHN'S (takes tresa), IBS, chronic diarrhea, migraines-, hx ulcers, anemia, gout, kidney stones, psoriasis, bilateral tinnitis., pinched sciatic nerve, C-Diff 2017, neuropathy History of Any Multi-Drug Resistant Organisms: None Reported Date of last positivie culture/infection: stool MDRO Source:: 2017 Past Surgical History: Bowel Resection, Cardiac Ablation, Cholecystectomy, Heart Catheterization, Hernia Repair, Orthopedic Surgery, Tonsillectomy Additional Past Surgical History / Comment(s): 1/3 of stomach removed (partial gastrectomy), ulcers, bowel resections, fecal transplant 2017, bilateral knee arthroscopic surgery, EGD/colonoscopies, R inguinal hernia repair, bilat cataract removal, Past Anesthesia/Blood Transfusion Reactions: Blood Transfusion Reaction, Motion Sickness Additional Past Anesthesia/Blood Transfusion Reaction / Comment(s): BLOOD TRANSFUSION- BROKE OUT IN HIVES age 21 Past Psychological History: Anxiety Smoking Status: Never smoker Past Alcohol Use History: Occasional Past Drug Use History: None Reported - Past Family History Mother Family Medical History: Pulmonary Embolus Additional Family Medical History / Comment(s): AGE 73-[place], STROKE DURING CARATID PROCEDURE General Exam Limitations: no limitations General appearance: alert, in no apparent distress, other (This is a well- developed, well-nourished elderly male patient in no acute distress. Vital signs upon presentation temperature 97.7F, pulse 90, respirations 20, blood pressure 193/83, pulse ox 98% on room air.) ENT exam: Present: normal exam, normal oropharynx, mucous membranes moist Respiratory exam: Present: normal lung sounds bilaterally. Absent: respiratory distress, wheezes, rales, rhonchi, stridor Cardiovascular Exam: Present: regular rate, normal rhythm, normal heart sounds. Absent: systolic murmur, diastolic murmur, rubs, gallop, clicks GI/Abdominal exam: Present: soft, tenderness (Right upper quadrant, right lower quadrant), normal bowel sounds. Absent: distended, guarding, rebound, rigid Neurological exam: Present: alert, oriented X3, CN II-XII intact Psychiatric exam: Present: normal affect, normal mood Skin exam: Present: warm, dry, intact, normal color. Absent: rash Course Vital Signs 12/28/20 12/28/20 12/28/20 03:06 03:50 04:35 Temperature 97.7 F Pulse Rate 90 69 61 Respiratory 20 18 18 Rate Blood Pressure 193/83 170/72 171/75 O2 Sat by Pulse 98 98 99 Oximetry Medical Decision Making - Medical Decision Making 70-year-old male patient presents for evaluation of abdominal pain, nausea, vomiting, black tarry stools over the last 2 days. Does have history of Crohn's disease. Physical examination did reveal right-sided abdominal tenderness. Vital signs within normal range. Labs reviewed and did reveal hemoglobin 9.9 which is stable for the patient. Blood glucose is 200, BUN 25, stool occult is positive. CT abdomen and pelvis was obtained without contrast due to patient's ALLERGY, showed no acute abnormalities. He'll be admitted to the hospital with IV steroids. Patient is agreeable with this plan. Case discussed with my attending Dr. Yancey. - Lab Data Result diagrams: 12/28/20 03:55 12/28/20 03:55 Lab Results 12/28/20 12/28/20 12/28/20 Range/Units 03:50 03:55 03:55 WBC 6.7 (3.8-10.6) k/uL RBC 3.90 L (4.30-5.90) m/uL Hgb 9.9 L (13.0-17.5) gm/dL Hct 32.7 L (39.0-53.0) % MCV 83.9 (80.0-100.0) fL MCH 25.4 (25.0-35.0) pg MCHC 30.3 L (31.0-37.0) g/dL RDW 19.3 H (11.5-15.5) % Plt Count 190 (150-450) k/uL MPV 6.6 Neutrophils % 87 % Lymphocytes % 11 % Monocytes % 1 % Eosinophils % 0 % Basophils % 0 % Neutrophils # 5.9 (1.3-7.7) k/uL Lymphocytes # 0.7 L (1.0-4.8) k/uL Monocytes # 0.1 (0-1.0) k/uL Eosinophils # 0.0 (0-0.7) k/uL Basophils # 0.0 (0-0.2) k/uL Hypochromasia Slight Anisocytosis Slight Microcytosis Slight Sodium 138 (137-145) mmol/L Potassium 4.2 (3.5-5.1) mmol/L Chloride 113 H (98-107) mmol/L Carbon Dioxide 15 L (22-30) mmol/L Anion Gap 10 mmol/L BUN 25 H (9-20) mg/dL Creatinine 1.13 (0.66-1.25) mg/dL Est GFR (CKD-EPI)AfAm 76 (>60 ml/min/1.73 sqM) Est GFR (CKD-EPI)NonAf 66 (>60 ml/min/1.73 sqM) Glucose 200 H (74-99) mg/dL Plasma Lactic Acid Kal 1.0 (0.7-2.0) mmol/L Calcium 9.0 (8.4-10.2) mg/dL Total Bilirubin 0.5 (0.2-1.3) mg/dL AST 36 (17-59) U/L ALT 22 (4-49) U/L Alkaline Phosphatase 42 (38-126) U/L Total Protein 6.7 (6.3-8.2) g/dL Albumin 3.6 (3.5-5.0) g/dL Amylase 146 H (30-110) U/L Lipase 68 (23-300) U/L Stool Occult Blood (Negative) 12/28/20 Range/Units 03:55 WBC (3.8-10.6) k/uL RBC (4.30-5.90) m/uL Hgb (13.0-17.5) gm/dL Hct (39.0-53.0) % MCV (80.0-100.0) fL MCH (25.0-35.0) pg MCHC (31.0-37.0) g/dL RDW (11.5-15.5) % Plt Count (150-450) k/uL MPV Neutrophils % % Lymphocytes % % Monocytes % % Eosinophils % % Basophils % % Neutrophils # (1.3-7.7) k/uL Lymphocytes # (1.0-4.8) k/uL Monocytes # (0-1.0) k/uL Eosinophils # (0-0.7) k/uL Basophils # (0-0.2) k/uL Hypochromasia Anisocytosis Microcytosis Sodium (137-145) mmol/L Potassium (3.5-5.1) mmol/L Chloride (98-107) mmol/L Carbon Dioxide (22-30) mmol/L Anion Gap mmol/L BUN (9-20) mg/dL Creatinine (0.66-1.25) mg/dL Est GFR (CKD-EPI)AfAm (>60 ml/min/1.73 sqM) Est GFR (CKD-EPI)NonAf (>60 ml/min/1.73 sqM) Glucose (74-99) mg/dL Plasma Lactic Acid Kal (0.7-2.0) mmol/L Calcium (8.4-10.2) mg/dL Total Bilirubin (0.2-1.3) mg/dL AST (17-59) U/L ALT (4-49) U/L Alkaline Phosphatase (38-126) U/L Total Protein (6.3-8.2) g/dL Albumin (3.5-5.0) g/dL Amylase (30-110) U/L Lipase (23-300) U/L Stool Occult Blood Positive (Negative) - Radiology Data Radiology results: report reviewed, image reviewed CT abdomen and pelvis without contrast was obtained. Report was reviewed in its entirety. Impression by Dr. Sapp shows previous abdominal surgery. No acute abnormality of the abdomen and pelvis. Numerous nonobstructing renal calculi. No adverse change compared to old exam. Disposition Clinical Impression: Exacerbation of Crohn's disease Disposition: ADMITTED IP TO THIS [facility] Condition: Serious Referrals: Minh Saldaña MD [Primary Care Provider] - 1-2 days Decision to Admit Reason: Admit from EC Decision Date: 12/28/20 Decision Time: 04:51
[2020-12-28 04:05] LABS: Anisocytosis Slight; Basophils % (A) 0 %; Eosinophils % (A) 0 %; HCT 32.7 % (39.0-53.0); HGB 9.9 gm/dL (13.0-17.5); Hypochromasia Slight; Lymphocytes # (A) 0.7 k/uL (1.0-4.8); Lymphocytes % (A) 11 %; MCH 25.4 pg (25.0-35.0); MCHC 30.3 g/dL (31.0-37.0); MCV 83.9 fL (80.0-100.0); Mean Platelet Volume 6.6; Microcytosis Slight; Monocytes # (A) 0.1 k/uL (0-1.0); Monocytes % (A) 1 %; Neutrophils # (A) 5.9 k/uL (1.3-7.7); Neutrophils % (A) 87 %; Platelet Count 190 k/uL (150-450); RDW 19.3 % (11.5-15.5); WBC 6.7 k/uL (3.8-10.6)
[2020-12-28 04:18] LABS: Albumin 3.6 g/dL (3.5-5.0); Potassium 4.2 mmol/L (3.5-5.1); Total Bilirubin 0.5 mg/dL (0.2-1.3); Total Protein 6.7 g/dL (6.3-8.2)
[2020-12-28] MEDS ORDERED: HYDROmorphone 1 MG/ML 1 ML SYRINGE IVP STA (04:24)
--- NOTE | 2020-12-28 04:26 | CT ---
EXAMINATION TYPE: CT abdomen pelvis wo con DATE OF EXAM: 12/28/2020 COMPARISON: 10/18/2020 HISTORY: Abd Pain CT DLP: 430.80 mGycm Automated exposure control for dose reduction was used. Images obtained from the diaphragm to the floor the pelvis with no contrast. Lung bases are clear of infiltrate. There is no pleural effusion. There is minimal fibrotic changes at the lung bases. There is no pericardial effusion. There are clips at the gastroesophageal junction. There are multiple calcified splenic granulomata. Liver is intact. There are clips from cholecystecto my. The bile ducts are not dilated. There is no pancreatic mass. There is no adrenal mass. Kidneys have normal size. There are numerous calculi in both kidneys. These measure up to 7 mm. There is 3 cm cortical cyst lateral right kidney. There is no evidence of solid renal mass. There is no hydronephrosis. Ureters are not dilated. There are surgical clips in the righ t lower quadrant at the cecum. Bladder distends smoothly. There is no inguinal hernia. There is no ev idence of a pelvic mass. There is no free fluid in the pelvis. Lumbar vertebra have normal alignment. There is no compression fracture. Disc spaces are fairly leanna l. The bony pelvis is intact. Hip joints are intact. IMPRESSION: Previous abdominal surgery. No acute abnormality of the abdomen pelvis. Numerous nonobstructing renal calculi. No adverse change compared to old exam.
[2020-12-28] MEDS ORDERED: methylPREDNISolone SOD SUCCI 125 MG/2 ML VIAL IV STA (04:46)
[2020-12-28] MEDS ORDERED: NALOXONE 0.4 MG/ML 1 ML VIAL IV PRN (04:47)
[2020-12-28] MEDS: SODIUM CHLORIDE 0.9% 1,000 ML IV SCH ×2 (05:36→18:29)
[2020-12-28] MEDS: methylPREDNISolone SOD SUCCI 40 MG/ML 1 ML VIAL IV SCH ×3 (05:51→18:29)
[2020-12-28] MEDS: HYDROmorphone 1 MG/ML 1 ML SYRINGE IVP PRN ×5 (08:26→23:05)
[2020-12-28 08:38] LABS: Appearance,Urine Clear (Clear); Bilirubin,Urine Negative (Negative); Blood,Urine Negative (Negative); Color,Urine Yellow; Glucose,Urine (UA) Negative (Negative); Ketones,Urine Negative (Negative); Leukocyte Esterase,Urine Negative (Negative); Nitrite,Urine Negative (Negative); Protein,Urine Trace (Negative); Urobilinogen,Urine <2.0 mg/dL (<2.0)
[2020-12-28] MEDS: amLODIPine 10 MG TAB PO SCH (11:23)
[2020-12-28] MEDS: PANTOPRAZOLE 40 MG/10 ML VIAL IVP SCH ×2 (11:23→21:45)
[2020-12-28] MEDS: ONDANSETRON 4 MG/2 ML VIAL IVP PRN (16:13)
[2020-12-28] MEDS ORDERED: NON FORMULARY DRUG (Buprenorphine Hcl/Naloxone Hcl [Suboxone 2 Mg-0.5 Mg Sl Film] 1 EACH F PO SCH (21:00)
--- NOTE | 2020-12-28 23:39 | P.HPIM ---
History of Present Illness H&P Date: 12/28/20 Chief Complaint: Abdominal pain Patient is a 70-year-old male with a known history of paroxysmal atrial fibrillation currently not on anticoagulation, GERD, hypertension, rheumatoid arthritis, SVT, history of Crohn's disease taking Humira, IBS and history of bowel resection, cardiac ablation and other medical problems including anxiety resents to ER with complaints of abdominal pain and blood per rectum. Patient states that he has been having symptoms for the past 3. Patient noticed dark- colored blood in the stool about 3 to 4 days ago. During diarrhea. No fever no chills. Patient was also having abdominal pain mainly in the right lower quadrant. Denies any chest pain or shortness breath. No cough or sputum production. No hematuria or dysuria. No headache or dizziness or lightheadedness. CT of the abdomen pelvis showed previous abdominal surgery. No acute abnormality of the abdominal pelvis. Numerous nonobstructing renal calculi. No adverse change compared to old exam. Laboratory data showed WBC 6.7 hemoglobin 9.9 and platelets 190 Lymphocytes 0.7 Sodium 138 potassium 4.2 chloride 113 bicarb 15 BUN 25 and creatinine 1.13 CRP less than 0.5 and ESR 15 Urinalysis is negative for infection. Stool occult blood positive. Review of Systems Constitutional: Patient denies any fever or chills . No generalized weakness or weight loss. Abdomen: Patient does have abdominal pain dark-colored stools. Denies any diarrhea. No nausea no vomiting.. Cardiovascular: Patient denies any chest pain or short of breath no palpitat ions. Respiratory: patient denied any cough or sputum production. No shortness of breath Neurologic: Patient denied any numbness or tingling headache. Musculoskeletal: Patient denies any complaints of joint swelling or deformity. Skin: Negative Psychiatric: Negative Endocrine: No heat or cold intolerance. No recent weight gain. Genitourinary: No dysuria or hematuria. All other 14 point ROS negative except the above Past Medical History Past Medical History: Atrial Fibrillation, GERD/Reflux, Hypertension, Rheumatoid Arthritis (RA), Skin Disorder, Supraventricular Tachycardia (SVT) Additional Past Medical History / Comment(s): hx CROHN'S (takes tresa), IBS, chronic diarrhea, migraines-, hx ulcers, anemia, gout, kidney stones, psoriasis, bilateral tinnitis., pinched sciatic nerve, C-Diff 2017, neuropathy History of Any Multi-Drug Resistant Organisms: None Reported Date of last positivie culture/infection: stool MDRO Source:: 2017 Past Surgical History: Bowel Resection, Cardiac Ablation, Cholecystectomy, Heart Catheterization, Hernia Repair, Orthopedic Surgery, Tonsillectomy Additional Past Surgical History / Comment(s): 1/3 of stomach removed (partial gastrectomy), ulcers, bowel resections, fecal transplant 2017, bilateral knee arthroscopic surgery, EGD/colonoscopies, R inguinal hernia repair, bilat cataract removal, Past Anesthesia/Blood Transfusion Reactions: Blood Transfusion Reaction, Motion Sickness Additional Past Anesthesia/Blood Transfusion Reaction / Comment(s): BLOOD TRANSFUSION- BROKE OUT IN HIVES age 21 Past Psychological History: Anxiety Smoking Status: Never smoker Past Alcohol Use History: Occasional Past Drug Use History: None Reported - Past Family History Mother Family Medical History: Pulmonary Embolus Additional Family Medical History / Comment(s): AGE 73-[place], STROKE DURING CARATID PROCEDURE Medications and Allergies Home Medications Medication Instructions Recorded Confirmed Type Orphenadrine Citrate [Orphenadrine 100 mg PO BID 12/08/17 12/28/20 History Citrate ER] Adalimumab [Humira Pen] 40 mg SQ Q14D 04/25/18 12/28/20 History Febuxostat [Uloric] 80 mg PO DAILY 05/05/18 12/28/20 History Buprenorphine HCl/Naloxone HCl 1 film SL HS 12/12/18 12/28/20 History [Suboxone 2 mg-0.5 mg Sl Film] amLODIPine [Norvasc] 10 mg PO DAILY 10/18/20 12/28/20 History Aspirin/Acetaminophen/Caffeine 1 cap PO Q4H PRN 12/28/20 12/28/20 History [Excedrin Migraine Caplet] Omeprazole [PriLOSEC] 20 mg PO AC-BID 12/28/20 12/28/20 History predniSONE 10 mg PO DAILY 12/28/20 12/28/20 History Allergies Allergy/AdvReac Type Severity Reaction Status Date / Time Iodinated Contrast Media Allergy Anaphylaxis Verified 12/28/20 07:36 [Iodinated Contrast Media - IV Dye] Physical Exam Vitals: Vital Signs Temp Pulse Resp BP Pulse Ox 12/28/20 08:21 98.1 F 61 18 175/84 99 12/28/20 07:10 18 12/28/20 05:39 98.1 F 56 L 18 174/76 97 12/28/20 04:35 61 18 171/75 99 12/28/20 03:50 69 18 170/72 98 12/28/20 03:06 97.7 F 90 20 193/83 98 Intake and Output 12/27/20 12/28/20 12/28/20 22:59 06:59 14:59 Other: Weight 70.307 kg PHYSICAL EXAMINATION: Patient is lying in the bed comfortably, no acute distress, awake alert and oriented.. HEENT: Normocephalic. Neck is supple. Pupils reactive. Nostrils clear. Oral cavity is moist. Neck reveals no JVD, carotid bruits, or thyromegaly. CHEST EXAMINATION: Trachea is central. Symmetrical expansion. Lung murdock clear to auscultation and percussion. CARDIAC: Normal S1, S2 with no gallops. No murmurs ABDOMEN: Soft. Bowel sounds normal. No organomegaly. No abdominal bruits. Extremities: reveal no edema. No clubbing or cyanosis Neurologically awake, alert, oriented x3 with well-coordinated movements. No focal deficits noted Skin: No rash or skin lesions. Psychiatric: Cooperative. Nonsuicidal Musculoskeletal: No joint swelling or deformity. Normal range of motion. Results CBC & Chem 7: 12/28/20 03:55 12/28/20 03:55 Labs: Abnormal Lab Results - Last 24 Hours (Table) 12/28/20 12/28/20 12/28/20 Range/Units 03:50 03:55 03:55 RBC 3.90 L (4.30-5.90) m/uL Hgb 9.9 L (13.0-17.5) gm/dL Hct 32.7 L (39.0-53.0) % MCHC 30.3 L (31.0-37.0) g/dL RDW 19.3 H (11.5-15.5) % Lymphocytes # 0.7 L (1.0-4.8) k/uL Chloride 113 H (98-107) mmol/L Carbon Dioxide 15 L (22-30) mmol/L BUN 25 H (9-20) mg/dL Glucose 200 H (74-99) mg/dL Amylase 146 H (30-110) U/L Urine Protein Trace H (Negative) Thrombosis Risk Factor Assmnt - DVT/VTE Prophylaxis DVT/VTE Prophylaxis: Mechanical Prophylaxis ordered Assessment and Plan Assessment: Abdominal pain with blood per rectum likely Crohn's exacerbation. History of Crohn's disease currently on Humira. Diagnosed at age 19 GERD Hypertension Diabetes History of SVT status post ablation History of bowel resection IBS Migraine headaches Anxiety DVT prophylaxis SCDs Plan: Patient will be continued on IV hydration and monitor H&H. Transfuse as needed if hemoglobin less than 7. Patient will be started methylprednisolone 20 mg every 8 and continue with home medications. Continue with PPI. GI will be consulted and follow-up closely. Time with Patient: Greater than 30
[2020-12-29] MEDS: HYDROmorphone 1 MG/ML 1 ML SYRINGE IVP PRN ×7 (03:54→23:02)
[2020-12-29] MEDS: allopurinoL 100 MG TAB PO SCH (07:12)
[2020-12-29] MEDS: methylPREDNISolone SOD SUCCI 40 MG/ML 1 ML VIAL IV SCH ×4 (07:14→17:10)
[2020-12-29] MEDS: amLODIPine 10 MG TAB PO SCH (07:14)
[2020-12-29] MEDS: PANTOPRAZOLE 40 MG/10 ML VIAL IVP SCH ×2 (07:14→20:14)
[2020-12-29] MEDS: SODIUM CHLORIDE 0.9% 1,000 ML IV SCH ×2 (09:48→23:32)
[2020-12-29 11:27] LABS: Basophils # (A) 0.01 X 10*3/uL (0.00-0.10); Basophils % (A) 0.1 %; Eosinophils # (A) 0 X 10*3/uL (0.04-0.35); Eosinophils % (A) 0 %; HCT 32.8 % (39.6-50.0); HGB 9.5 g/dL (13.0-17.0); Lymphocytes # (A) 1.14 X 10*3/uL (0.90-5.00); Lymphocytes % (A) 12.6 %; MCH 24.8 pg (27.0-32.0); MCV 85.6 fL (80.0-97.0); Mean Platelet Volume 11.1 fL (9.5-12.2); Monocytes # (A) 0.54 X 10*3/uL (0.20-1.00); Neutrophils # (A) 7.32 X 10*3/uL (1.80-7.70); Neutrophils % (A) 81.1 %; Platelet Count 195 X 10*3/uL (140-440); RBC 3.83 X 10*6/uL (4.40-5.60); RDW 20.9 % (11.5-14.5); WBC 9.03 X 10*3/uL (4.50-10.00)
[2020-12-29 12:44] LABS: Albumin 3.7 g/dL (3.80-4.90); Albumin/Globulin Ratio 1.48 (1.60-3.17); Anion Gap 9.5 mmol/L (4.00-12.00); Calcium 8.7 mg/dL (8.7-10.3); Carbon Dioxide 23.5 mmol/L (21.6-31.8); Globulin 2.5 g/dL (1.6-3.3); Non-African American GFR(CKD) 75.9 (60.0-200.0); Potassium 4.5 mmol/L (3.5-5.5); Total Bilirubin 0.6 mg/dL (0.2-1.2); Total Protein 6.2 g/dL (6.2-8.2)
--- NOTE | 2020-12-29 12:59 | P.PN ---
Subjective Principal diagnosis: Crohn's exacerbation This is a continue progress on a 70-year-old white male with known history of Crohn's colitis who is essentially admitted for exacerbation. The patient is improving but has history of significant pain. Element of diarrhea Objective - Vital Signs Vital signs: Vital Signs Temp 97.6 F 12/29/20 08:00 Pulse 52 L 12/29/20 08:00 Resp 16 12/29/20 08:00 BP 168/71 12/29/20 08:00 Pulse Ox 97 12/29/20 08:00 Intake & Output 12/28/20 12/29/20 12/29/20 18:59 06:59 18:59 Weight 70.307 kg - Constitutional General appearance: Present: average body habitus - EENT Eyes: Absent: abnormal pupil - Neck Neck: Absent: lymphadenopathy - Respiratory Respiratory: bilateral: CTA - Cardiovascular Rhythm: regular Heart sounds: normal: S1, S2 Abnormal Heart Sounds: Absent: S3 Gallop - Gastrointestinal General gastrointestinal: Present: soft. Absent: tenderness - Integumentary Integumentary: Absent: rash - Labs CBC & Chem 7: 12/29/20 06:16 12/29/20 06:16 Labs: Abnormal Lab Results - Last 24 Hours (Table) 12/29/20 12/29/20 Range/Units 06:16 06:16 RBC 3.83 L (4.40-5.60) X 10*6/uL Hgb 9.5 L (13.0-17.0) g/dL Hct 32.8 L (39.6-50.0) % MCH 24.8 L (27.0-32.0) pg MCHC 29.0 L (32.0-37.0) g/dL RDW 20.9 H (11.5-14.5) % Eosinophils # 0 L (0.04-0.35) X 10*3/uL Glucose 126 H (70-110) mg/dL Alkaline Phosphatase 37 L (41-126) U/L Albumin 3.70 L (3.80-4.90) g/dL Albumin/Globulin Ratio 1.48 L (1.60-3.17) g/dL Assessment and Plan (1) Exacerbation of Crohn's disease Current Visit: Yes Status: Acute Code(s): K50.90 - CROHN'S DISEASE, UNSPECIFIED, WITHOUT COMPLICATIONS SNOMED Code(s): 87940324 Plan: Start clear liquids and continue hydration. Continue methylprednisone. Check CBC and CMP in a.m. Consult GI if available. Otherwise, start clear liquid
[2020-12-29 13:39] VITALS: BMI 19.9
[2020-12-29] MEDS: ONDANSETRON 4 MG/2 ML VIAL IVP PRN (23:02)
[2020-12-30] MEDS: methylPREDNISolone SOD SUCCI 40 MG/ML 1 ML VIAL IV SCH ×4 (00:11→17:30)
[2020-12-30] MEDS: HYDROmorphone 1 MG/ML 1 ML SYRINGE IVP PRN ×6 (02:23→20:29)
[2020-12-30 07:10] LABS: African American GFR (CKD) >90 (>60 ml/min/1.73 sqM); Anion Gap 6 mmol/L; Blood Urea Nitrogen 15 mg/dL (9-20); Calcium 8.2 mg/dL (8.4-10.2); Carbon Dioxide 21 mmol/L (22-30); Chloride 107 mmol/L (98-107); Glucose 145 mg/dL (74-99); Non-African American GFR(CKD) >90 (>60 ml/min/1.73 sqM); Sodium 134 mmol/L (137-145)
[2020-12-30] MEDS: PANTOPRAZOLE 40 MG/10 ML VIAL IVP SCH (08:22)
[2020-12-30] MEDS: allopurinoL 100 MG TAB PO SCH (08:22)
[2020-12-30] MEDS: amLODIPine 10 MG TAB PO SCH (08:22)
--- NOTE | 2020-12-30 08:40 | P.PN ---
Subjective Principal diagnosis: Crohn's exacerbation This is a continue progress on a 70-year-old white male with known history of Crohn's colitis who is essentially admitted for exacerbation. The patient is improving but has history of significant pain. Element of diarrhea The patient does feel better today. We will advance diet Objective - Vital Signs Vital signs: Vital Signs Temp 97.5 F L 12/30/20 07:47 Pulse 49 L 12/30/20 07:47 Resp 16 12/30/20 07:47 BP 183/89 12/30/20 07:47 Pulse Ox 98 12/30/20 07:47 Intake & Output 12/29/20 12/30/20 12/30/20 18:59 06:59 18:59 Intake Total 1120 Balance 1120 Weight 70.307 kg Intake: Oral 1120 Other: # Voids 4 2 # Bowel Movements 3 2 - Constitutional General appearance: Present: average body habitus - EENT Eyes: Absent: abnormal pupil - Respiratory Respiratory: bilateral: CTA - Cardiovascular Rhythm: regular Heart sounds: normal: S1, S2 Abnormal Heart Sounds: Absent: S3 Gallop - Gastrointestinal General gastrointestinal: Present: soft. Absent: tenderness - Integumentary Integumentary: Present: normal - Labs CBC & Chem 7: 12/29/20 06:16 12/30/20 06:02 Labs: Abnormal Lab Results - Last 24 Hours (Table) 12/29/20 12/29/20 12/30/20 Range/Units 06:16 06:16 06:02 RBC 3.83 L (4.40-5.60) X 10*6/uL Hgb 9.5 L (13.0-17.0) g/dL Hct 32.8 L (39.6-50.0) % MCH 24.8 L (27.0-32.0) pg MCHC 29.0 L (32.0-37.0) g/dL RDW 20.9 H (11.5-14.5) % Eosinophils # 0 L (0.04-0.35) X 10*3/uL Sodium 134 L (137-145) mmol/L Carbon Dioxide 21 L (22-30) mmol/L Glucose 126 H 145 H (70-110) mg/dL Calcium 8.2 L (8.4-10.2) mg/dL Alkaline Phosphatase 37 L (41-126) U/L Albumin 3.70 L (3.80-4.90) g/dL Albumin/Globulin Ratio 1.48 L (1.60-3.17) g/dL Assessment and Plan (1) Exacerbation of Crohn's disease Current Visit: Yes Status: Acute Code(s): K50.90 - CROHN'S DISEASE, UNSPECIFIED, WITHOUT COMPLICATIONS SNOMED Code(s): 86431622 Plan: Start clear liquids and continue hydration. Continue methylprednisone. Check CBC and CMP in a.m. advance diet.
[2020-12-30 09:43] LABS: Basophils # (A) 0 X 10*3/uL (0.00-0.10); Basophils % (A) 0 %; Eosinophils # (A) 0 X 10*3/uL (0.04-0.35); Eosinophils % (A) 0 %; HCT 30.7 % (39.6-50.0); HGB 8.9 g/dL (13.0-17.0); Lymphocytes # (A) 0.59 X 10*3/uL (0.90-5.00); Lymphocytes % (A) 7.2 %; MCH 24.4 pg (27.0-32.0); MCV 84.1 fL (80.0-97.0); Mean Platelet Volume 10.8 fL (9.5-12.2); Monocytes # (A) 0.19 X 10*3/uL (0.20-1.00); Monocytes % (A) 2.3 %; Neutrophils # (A) 7.39 X 10*3/uL (1.80-7.70); Platelet Count 180 X 10*3/uL (140-440); RBC 3.65 X 10*6/uL (4.40-5.60); RDW 20.2 % (11.5-14.5); WBC 8.21 X 10*3/uL (4.50-10.00)
[2020-12-30] MEDS: SODIUM CHLORIDE 0.9% 1,000 ML IV SCH (19:34)
[2020-12-30] MEDS: PANTOPRAZOLE 40 MG TABLET PO SCH (20:30)
[2020-12-31] MEDS: SODIUM CHLORIDE 0.9% 1,000 ML IV SCH (03:48)
[2020-12-31] MEDS: methylPREDNISolone SOD SUCCI 40 MG/ML 1 ML VIAL IV SCH ×2 (05:43→05:46)
[2020-12-31] MEDS: HYDROmorphone 1 MG/ML 1 ML SYRINGE IVP PRN ×2 (05:46→09:20)
[2020-12-31] MEDS: amLODIPine 10 MG TAB PO SCH (07:18)
[2020-12-31] MEDS: PANTOPRAZOLE 40 MG TABLET PO SCH (07:18)
[2020-12-31] MEDS: allopurinoL 100 MG TAB PO SCH (07:18)
[2020-12-31 07:44] VITALS: RESP 16; TEMP 97.5
[2020-12-31] MEDS ORDERED: hydrALAZINE HCL 20 MG/ML 1 ML VIAL IVP STA (08:31)
--- NOTE | 2020-12-31 08:54 | P.DS ---
Providers Date of admission: 12/28/20 04:43 Attending physician: Minh Saldaña Consults: 12/28/20 23:37 Consult Physician Routine Consulting Provider: Laura Yancey Consult Reason/Comments: Crohns exacerbation Do you want consulting provider notified?: Yes, Notify in am Primary care physician: Minh Saldaña - Discharge Diagnosis(es) (1) Exacerbation of Crohn's disease Current Visit: Yes Status: Acute Hospital Course: This discharge summary on a 70-year-old white male essentially admitted for Crohn's colitis flareup. She has an underlying history of opiate dependence, rheumatoid arthritis gout. The patient was stabilized with steroid treatment. Unfortunately blood pressure is labile and he has been given hydralazine. When this starts kicking in and he can get more blood pressure, we will discharged in stable condition to follow-up in about a week. Patient Condition at Discharge: Serious Plan - Discharge Summary Discharge Rx Participant: Yes New Discharge Prescriptions: New predniSONE [Deltasone] 20 mg PO DAILY #14 tab Pantoprazole [Protonix] 40 mg PO BID #60 tab Continue Orphenadrine Citrate [Orphenadrine Citrate ER] 100 mg PO BID Adalimumab [Humira Pen] 40 mg SQ Q14D Febuxostat [Uloric] 80 mg PO DAILY Buprenorphine HCl/Naloxone HCl [Suboxone 2 mg-0.5 mg Sl Film] 1 film SL HS amLODIPine [Norvasc] 10 mg PO DAILY Aspirin/Acetaminophen/Caffeine [Excedrin Migraine Caplet] 1 cap PO Q4H PRN PRN Reason: Migraine Headache Omeprazole [PriLOSEC] 20 mg PO AC-BID Discontinued predniSONE 10 mg PO DAILY Discharge Medication List Orphenadrine Citrate [Orphenadrine Citrate ER] 100 mg PO BID 12/08/17 [History] Adalimumab [Humira Pen] 40 mg SQ Q14D 04/25/18 [History] Febuxostat [Uloric] 80 mg PO DAILY 05/05/18 [History] Buprenorphine HCl/Naloxone HCl [Suboxone 2 mg-0.5 mg Sl Film] 1 film SL HS 12/12/18 [History] amLODIPine [Norvasc] 10 mg PO DAILY 10/18/20 [History] Aspirin/Acetaminophen/Caffeine [Excedrin Migraine Caplet] 1 cap PO Q4H PRN 12/28/20 [History] Omeprazole [PriLOSEC] 20 mg PO AC-BID 12/28/20 [History] Pantoprazole [Protonix] 40 mg PO BID #60 tab 12/31/20 [Rx] predniSONE [Deltasone] 20 mg PO DAILY #14 tab 12/31/20 [Rx] Follow up Appointment(s)/Referral(s): Minh Saldaña MD [Primary Care Provider] - 3 Days Discharge Disposition: HOME SELF-CARE
[2020-12-31 10:59] VITALS: BP 165/75; PULSE 63
== END 2020-12-31 11:30 | disposition home or self-care (01) | DRG 386 ==
LOC: EC 03:04 → 4SSUR 04:43
PROVIDERS: ADMIT Family Medicine; ATTEND Family Medicine
DX: K50.111 Crohn's disease of large intestine with rectal bleeding (principal); I47.1 Supraventricular tachycardia; F11.20 Opioid dependence, uncomplicated; M06.9 Rheumatoid arthritis, unspecified; N20.0 Calculus of kidney; K21.9 Gastro-esophageal reflux disease without esophagitis; I10 Essential (primary) hypertension; I48.0 Paroxysmal atrial fibrillation; G43.909 Migraine, unspecified, not intractable, without status migrainosus; E11.9 Type 2 diabetes mellitus without complications; F41.9 Anxiety disorder, unspecified; Z79.899 Other long term (current) drug therapy; Z82.3 Family history of stroke; Z87.442 Personal history of urinary calculi; Z90.3 Acquired absence of stomach [part of]; Z90.49 Acquired absence of other specified parts of digestive tract; K52.9 Noninfective gastroenteritis and colitis, unspecified; L40.9 Psoriasis, unspecified; M10.9 Gout, unspecified; G62.9 Polyneuropathy, unspecified; D64.9 Anemia, unspecified
CPT/HCPCS: 36415; 74176; 80048; 80053; 81003; 82150; 82272; 83605; 83690; 85025; 85652; 86140; 87635; 96361; 96374; 96375; 96376; 99285

== ENCOUNTER 2021-02-07 05:42 | Emergency (ER) | payer BC, MEDICARE ==
--- NOTE | 2021-02-07 06:13 | ED ---
Abdominal Pain HPI - General Chief Complaint: Abdominal Pain Stated Complaint: Abd Pain Source: patient, RN notes reviewed Mode of arrival: ambulatory Limitations: no limitations - History of Present Illness Initial Comments: Patient is 7-year-old male presented to the ED for abdominal pain. Patient states pain started 5 days prior and has had reported diarrhea and nausea since onset with 8/10 pain generalized abdomen pain. Patient denies any fever, vomiting, or cough with flareup. Patient does report congestion but states that is chronic and constant. Patient reports history of Crohn's since age of 19 which she takes Humura for, past bowel resection and partial gastrectomy. Patient states that pain is very similar to past Crohn's flareups. Patient reports just feeling weak and overall fatigue with decreased appetite. - Related Data Home Medications Medication Instructions Recorded Confirmed Orphenadrine Citrate [Orphenadrine 100 mg PO BID 12/08/17 02/07/21 Citrate ER] Adalimumab [Humira Pen] 40 mg SQ Q14D 04/25/18 02/07/21 Febuxostat [Uloric] 80 mg PO DAILY 05/05/18 02/07/21 Buprenorphine HCl/Naloxone HCl 1 film SL HS 12/12/18 02/07/21 [Suboxone 2 mg-0.5 mg Sl Film] amLODIPine [Norvasc] 10 mg PO DAILY 10/18/20 02/07/21 Aspirin/Acetaminophen/Caffeine 1 cap PO Q4H PRN 12/28/20 02/07/21 [Excedrin Migraine Caplet] Omeprazole [PriLOSEC] 20 mg PO AC-BID 12/28/20 02/07/21 Previous Rx's Medication Instructions Recorded Pantoprazole [Protonix] 40 mg PO BID #60 tab 12/31/20 Allergies Allergy/AdvReac Type Severity Reaction Status Date / Time Iodinated Contrast Media Allergy Anaphylaxis Verified 02/07/21 05:55 [Iodinated Contrast Media - IV Dye] Review of Systems ROS Statement: Those systems with pertinent positive or pertinent negative responses have been documented in the HPI. ROS Other: All systems not noted in ROS Statement are negative. Past Medical History Past Medical History: Atrial Fibrillation, GERD/Reflux, Hypertension, Rheumatoid Arthritis (RA), Skin Disorder, Supraventricular Tachycardia (SVT) Additional Past Medical History / Comment(s): hx CROHN'S (takes tresa), IBS, chronic diarrhea, migraines-, hx ulcers, anemia, gout, kidney stones, psoriasis, bilateral tinnitis., pinched sciatic nerve, C-Diff 2017, neuropathy History of Any Multi-Drug Resistant Organisms: C-DIFF Date of last positivie culture/infection: stool MDRO Source:: 2017 Past Surgical History: Bowel Resection, Cardiac Ablation, Cholecystectomy, Heart Catheterization, Hernia Repair, Orthopedic Surgery, Tonsillectomy Additional Past Surgical History / Comment(s): 1/3 of stomach removed (partial gastrectomy), ulcers, bowel resections, fecal transplant 2017, bilateral knee arthroscopic surgery, EGD/colonoscopies, R inguinal hernia repair, bilat cataract removal, Past Anesthesia/Blood Transfusion Reactions: Blood Transfusion Reaction, Motion Sickness Additional Past Anesthesia/Blood Transfusion Reaction / Comment(s): BLOOD TRANSFUSION- BROKE OUT IN HIVES age 21 Past Psychological History: Anxiety Smoking Status: Never smoker Past Alcohol Use History: Occasional Past Drug Use History: None Reported - Past Family History Mother Family Medical History: Pulmonary Embolus Additional Family Medical History / Comment(s): AGE 73-[place], STROKE DURING CARATID PROCEDURE General Exam Limitations: no limitations General appearance: alert, in no apparent distress Respiratory exam: Present: normal lung sounds bilaterally. Absent: respiratory distress, wheezes, rales, rhonchi, stridor Cardiovascular Exam: Present: regular rate, normal rhythm, normal heart sounds. Absent: systolic murmur, diastolic murmur, rubs, gallop, clicks GI/Abdominal exam: Present: soft, tenderness (Generalized), hyperactive bowel sounds Back exam: Present: normal inspection Neurological exam: Present: alert, oriented X3 Skin exam: Present: warm, dry, intact, normal color. Absent: rash Course Vital Signs 02/07/21 02/07/21 05:51 06:55 Temperature 98 F 98.7 F Pulse Rate 56 L 78 Respiratory 18 22 Rate Blood Pressure 165/92 154/88 O2 Sat by Pulse 98 98 Oximetry Medical Decision Making - Medical Decision Making 70-year-old male with known history of Crohn's presented for exacerbation of symptoms labs reviewed show mild acidosis. Most likely from fluid loss. Patient was hydrated, given pain control cyanosis some mild symptoms. Patient case discussed with covering physician for Dr. Saldaña recommends transfer for GI I did inform patient that we're, transfer the patient to another facility patient refuses states that his discomfort go home understand the risk of leaving. - Lab Data Result diagrams: 02/07/21 06:09 02/07/21 06:09 Lab Results 02/07/21 02/07/21 02/07/21 Range/Units 06:09 06:09 06:09 WBC 8.9 (3.8-10.6) k/uL RBC 4.44 (4.30-5.90) m/uL Hgb 12.2 L (13.0-17.5) gm/dL Hct 40.2 (39.0-53.0) % MCV 90.6 D (80.0-100.0) fL MCH 27.6 (25.0-35.0) pg MCHC 30.4 L (31.0-37.0) g/dL RDW 17.9 H (11.5-15.5) % Plt Count 220 (150-450) k/uL MPV 7.2 Neutrophils % 62 % Lymphocytes % 28 % Monocytes % 5 % Eosinophils % 2 % Basophils % 1 % Neutrophils # 5.5 (1.3-7.7) k/uL Lymphocytes # 2.5 (1.0-4.8) k/uL Monocytes # 0.4 (0-1.0) k/uL Eosinophils # 0.2 (0-0.7) k/uL Basophils # 0.1 (0-0.2) k/uL Hypochromasia Slight Anisocytosis Slight Sodium 137 (137-145) mmol/L Potassium 3.8 (3.5-5.1) mmol/L Chloride 110 H (98-107) mmol/L Carbon Dioxide 16 L (22-30) mmol/L Anion Gap 11 mmol/L BUN 21 H (9-20) mg/dL Creatinine 1.19 (0.66-1.25) mg/dL Est GFR (CKD-EPI)AfAm 71 (>60 ml/min/1.73 sqM) Est GFR (CKD-EPI)NonAf 62 (>60 ml/min/1.73 sqM) Glucose 120 H (74-99) mg/dL Plasma Lactic Acid Kal (0.7-2.0) mmol/L Calcium 9.3 (8.4-10.2) mg/dL Total Bilirubin 0.6 (0.2-1.3) mg/dL AST 38 (17-59) U/L ALT 18 (4-49) U/L Alkaline Phosphatase 53 (38-126) U/L Total Protein 7.2 (6.3-8.2) g/dL Albumin 3.6 (3.5-5.0) g/dL Amylase 117 H (30-110) U/L Lipase 39 (23-300) U/L Urine Color Light Yellow Urine Appearance Clear (Clear) Urine pH 5.5 (5.0-8.0) Ur Specific [place] 1.014 (1.001-1.035) Urine Protein Negative (Negative) Urine Glucose (UA) Negative (Negative) Urine Ketones Negative (Negative) Urine Blood Negative (Negative) Urine Nitrite Negative (Negative) Urine Bilirubin Negative (Negative) Urine Urobilinogen <2.0 (<2.0) mg/dL Ur Leukocyte Esterase Negative (Negative) 02/07/21 Range/Units 06:09 WBC (3.8-10.6) k/uL RBC (4.30-5.90) m/uL Hgb (13.0-17.5) gm/dL Hct (39.0-53.0) % MCV (80.0-100.0) fL MCH (25.0-35.0) pg MCHC (31.0-37.0) g/dL RDW (11.5-15.5) % Plt Count (150-450) k/uL MPV Neutrophils % % Lymphocytes % % Monocytes % % Eosinophils % % Basophils % % Neutrophils # (1.3-7.7) k/uL Lymphocytes # (1.0-4.8) k/uL Monocytes # (0-1.0) k/uL Eosinophils # (0-0.7) k/uL Basophils # (0-0.2) k/uL Hypochromasia Anisocytosis Sodium (137-145) mmol/L Potassium (3.5-5.1) mmol/L Chloride (98-107) mmol/L Carbon Dioxide (22-30) mmol/L Anion Gap mmol/L BUN (9-20) mg/dL Creatinine (0.66-1.25) mg/dL Est GFR (CKD-EPI)AfAm (>60 ml/min/1.73 sqM) Est GFR (CKD-EPI)NonAf (>60 ml/min/1.73 sqM) Glucose (74-99) mg/dL Plasma Lactic Acid Kal 1.5 (0.7-2.0) mmol/L Calcium (8.4-10.2) mg/dL Total Bilirubin (0.2-1.3) mg/dL AST (17-59) U/L ALT (4-49) U/L Alkaline Phosphatase (38-126) U/L Total Protein (6.3-8.2) g/dL Albumin (3.5-5.0) g/dL Amylase (30-110) U/L Lipase (23-300) U/L Urine Color Urine Appearance (Clear) Urine pH (5.0-8.0) Ur Specific [place] (1.001-1.035) Urine Protein (Negative) Urine Glucose (UA) (Negative) Urine Ketones (Negative) Urine Blood (Negative) Urine Nitrite (Negative) Urine Bilirubin (Negative) Urine Urobilinogen (<2.0) mg/dL Ur Leukocyte Esterase (Negative) Disposition Clinical Impression: Crohns disease, Diarrhea Disposition: HOME SELF-CARE Condition: Fair Instructions (If sedation given, give patient instructions): Crohn Disease (ED) Additional Instructions: Please return to the Emergency Department if symptoms worsen or any other concerns. Is patient prescribed a controlled substance at d/c from ED?: No Referrals: Minh Saldaña MD [Primary Care Provider] - 1-2 days Time of Disposition: 09:36
[2021-02-07] MEDS ORDERED: SODIUM CHLORIDE 0.9% 1,000 ML IV STA (06:19)
[2021-02-07] MEDS ORDERED: ONDANSETRON 4 MG/2 ML VIAL IVP STA (06:19)
[2021-02-07] MEDS ORDERED: KETOROLAC 15 MG/ML 1 ML VIAL IVP STA (06:19)
[2021-02-07 06:22] LABS: Anisocytosis Slight; Basophils # (A) 0.1 k/uL (0-0.2); Basophils % (A) 1 %; Eosinophils # (A) 0.2 k/uL (0-0.7); Eosinophils % (A) 2 %; HCT 40.2 % (39.0-53.0); HGB 12.2 gm/dL (13.0-17.5); Hypochromasia Slight; Lymphocytes # (A) 2.5 k/uL (1.0-4.8); Lymphocytes % (A) 28 %; MCH 27.6 pg (25.0-35.0); MCHC 30.4 g/dL (31.0-37.0); Mean Platelet Volume 7.2; Monocytes # (A) 0.4 k/uL (0-1.0); Monocytes % (A) 5 %; Neutrophils # (A) 5.5 k/uL (1.3-7.7); Neutrophils % (A) 62 %; Platelet Count 220 k/uL (150-450); RBC 4.44 m/uL (4.30-5.90); RDW 17.9 % (11.5-15.5); WBC 8.9 k/uL (3.8-10.6)
--- NOTE | 2021-02-07 06:24 | XR ---
EXAMINATION TYPE: XR KUB DATE OF EXAM: 02/07/2021 COMPARISON: 03/01/2020 HISTORY: Abdominal pain TECHNIQUE: 2 views upright FINDINGS: There is no sign of intestinal obstruction or pneumoperitoneum. Fecal pattern is normal. Th ere are calcifications over the lower pole left kidney. Calcification seen over the interpolar right kidney. There are clips from cholecystectomy. Lung bases are clear. There is no evidence of a mass. IMPRESSION: Probable bilateral renal calculi. Nonacute abdomen.
[2021-02-07 06:38] LABS: MCV 90.6 fL (80.0-100.0)
[2021-02-07 06:43] LABS: Albumin 3.6 g/dL (3.5-5.0); Calcium 9.3 mg/dL (8.4-10.2); Potassium 3.8 mmol/L (3.5-5.1); Total Bilirubin 0.6 mg/dL (0.2-1.3); Total Protein 7.2 g/dL (6.3-8.2)
[2021-02-07] MEDS ORDERED: SODIUM CHLORIDE 0.9% 1,000 ML IV ONE (07:01)
[2021-02-07] MEDS ORDERED: HYDROmorphone 0.5 MG/0.5 ML SYRINGE IVP STA (07:32)
[2021-02-07 09:11] LABS: Appearance,Urine Clear (Clear); Bilirubin,Urine Negative (Negative); Blood,Urine Negative (Negative); Color,Urine Light Yellow; Glucose,Urine (UA) Negative (Negative); Ketones,Urine Negative (Negative); Leukocyte Esterase,Urine Negative (Negative); Nitrite,Urine Negative (Negative); PH, Urine 5.5 (5.0-8.0); Protein,Urine Negative (Negative); Specific Gravity,Urine 1.014 (1.001-1.035); Urobilinogen,Urine <2.0 mg/dL (<2.0)
[2021-02-07] MEDS ORDERED: methylPREDNISolone SOD SUCCI 125 MG/2 ML VIAL IV STA (09:36)
[2021-02-07] MEDS: HYDROmorphone 1 MG/ML 1 ML SYRINGE IVP STA ×2 (10:01→10:07)
[2021-02-07] MEDS ORDERED: HYDROmorphone 1 MG/ML 1 ML SYRINGE IVP STA (10:07)
[2021-02-07 10:12] VITALS: BP 185/97; PULSE 65; RESP 18; TEMP 97.8
== END 2021-02-07 10:16 | disposition home or self-care (01) ==
LOC: EC 05:42
DX: K50.90 Crohn's disease, unspecified, without complications (principal); I48.91 Unspecified atrial fibrillation; K21.9 Gastro-esophageal reflux disease without esophagitis; I10 Essential (primary) hypertension; M06.9 Rheumatoid arthritis, unspecified; G43.909 Migraine, unspecified, not intractable, without status migrainosus; F41.9 Anxiety disorder, unspecified
CPT/HCPCS: 36415; 80053; 82150; 83605; 83690; 85025; 81003; 74018; 99284; 96374; 96375 ×3; 96361 ×2; J2930; J2405; J1170 ×2; J1885

== ENCOUNTER 2021-02-20 01:57 | Inpatient (IN) | payer BC, MEDICARE ==
[2021-02-20] MEDS ORDERED: SODIUM CHLORIDE 0.9% 1,000 ML IV STA ×2 (02:33→05:20)
[2021-02-20] MEDS ORDERED: MORPHINE SULFATE 4 MG/ML SYRINGE IV STA (02:33)
[2021-02-20] MEDS ORDERED: ONDANSETRON 4 MG/2 ML VIAL IVP STA (02:33)
--- NOTE | 2021-02-20 02:34 | ED ---
Abdominal Pain HPI - General Chief Complaint: Abdominal Pain Stated Complaint: Abdominal pain Time Seen by Provider: 02/20/21 02:20 Source: patient, RN notes reviewed, old records reviewed Mode of arrival: ambulatory Limitations: no limitations - History of Present Illness Initial Comments: This is a 70-year-old male to the emergency room today for evaluation. Patient presents today to the emergency department for evaluation regards to abdominal pain, severe Crohn's exacerbation, feels that his abdomen is significantly bloated. Patient has had symptoms for a few weeks now ER visit a few weeks ago symptoms are no got any better since. Decreased appetite positive nausea no vomiting. MD Complaint: abdominal pain -: week(s) Location: diffuse Radiation: epigastric, suprapubic Migration to: epigastric, suprapubic Severity: moderate Severity scale (1-10): 4 Quality: fullness, dull Consistency: intermittent, colicky Improves With: nothing Worsens With: nothing Associated Symptoms: nausea, vomiting, constipation Treatments Prior to Arrival: other (none) - Related Data Home Medications Medication Instructions Recorded Confirmed Orphenadrine Citrate [Orphenadrine 100 mg PO BID 12/08/17 02/07/21 Citrate ER] Adalimumab [Humira Pen] 40 mg SQ Q14D 04/25/18 02/07/21 Febuxostat [Uloric] 80 mg PO DAILY 05/05/18 02/07/21 Buprenorphine HCl/Naloxone HCl 1 film SL HS 12/12/18 02/07/21 [Suboxone 2 mg-0.5 mg Sl Film] amLODIPine [Norvasc] 10 mg PO DAILY 10/18/20 02/07/21 Aspirin/Acetaminophen/Caffeine 1 cap PO Q4H PRN 12/28/20 02/07/21 [Excedrin Migraine Caplet] Omeprazole [PriLOSEC] 20 mg PO AC-BID 12/28/20 02/07/21 Previous Rx's Medication Instructions Recorded Pantoprazole [Protonix] 40 mg PO BID #60 tab 12/31/20 Allergies Allergy/AdvReac Type Severity Reaction Status Date / Time Iodinated Contrast Media Allergy Anaphylaxis Verified 02/20/21 02:11 [Iodinated Contrast Media - IV Dye] Review of Systems ROS Statement: Those systems with pertinent positive or pertinent negative responses have been documented in the HPI. ROS Other: All systems not noted in ROS Statement are negative. Past Medical History Past Medical History: Atrial Fibrillation, GERD/Reflux, Hypertension, Rheumatoid Arthritis (RA), Skin Disorder, Supraventricular Tachycardia (SVT) Additional Past Medical History / Comment(s): hx CROHN'S (takes tresa), IBS, chronic diarrhea, migraines-, hx ulcers, anemia, gout, kidney stones, psoriasis, bilateral tinnitis., pinched sciatic nerve, C-Diff 2017, neuropathy History of Any Multi-Drug Resistant Organisms: C-DIFF Date of last positivie culture/infection: stool MDRO Source:: 2017 Past Surgical History: Bowel Resection, Cardiac Ablation, Cholecystectomy, Heart Catheterization, Hernia Repair, Orthopedic Surgery, Tonsillectomy Additional Past Surgical History / Comment(s): 1/3 of stomach removed (partial gastrectomy), ulcers, bowel resections, fecal transplant 2017, bilateral knee arthroscopic surgery, EGD/colonoscopies, R inguinal hernia repair, bilat cataract removal, Past Anesthesia/Blood Transfusion Reactions: Blood Transfusion Reaction, Motion Sickness Additional Past Anesthesia/Blood Transfusion Reaction / Comment(s): BLOOD JETER SFUSION- BROKE OUT IN HIVES age 21 Past Psychological History: Anxiety Smoking Status: Never smoker Past Alcohol Use History: Occasional Past Drug Use History: None Reported - Past Family History Mother Family Medical History: Pulmonary Embolus Additional Family Medical History / Comment(s): AGE 73-[place], STROKE DURING CARATID PROCEDURE General Exam Limitations: no limitations General appearance: alert, in no apparent distress Head exam: Present: atraumatic, normocephalic, normal inspection Eye exam: Present: normal appearance, PERRL, EOMI. Absent: scleral icterus, conjunctival injection, periorbital swelling ENT exam: Present: normal exam, mucous membranes moist Neck exam: Present: normal inspection. Absent: tenderness, meningismus, lympha denopathy Respiratory exam: Present: normal lung sounds bilaterally. Absent: respiratory distress, wheezes, rales, rhonchi, stridor Cardiovascular Exam: Present: regular rate, normal rhythm, normal heart sounds. Absent: systolic murmur, diastolic murmur, rubs, gallop, clicks GI/Abdominal exam: Present: soft, normal bowel sounds. Absent: distended, tenderness, guarding, rebound, rigid Extremities exam: Present: normal inspection, full ROM, normal capillary refill. Absent: tenderness, pedal edema, joint swelling, calf tenderness Back exam: Present: normal inspection Neurological exam: Present: alert, oriented X3, CN II-XII intact Psychiatric exam: Present: normal affect, normal mood Skin exam: Present: warm, dry, intact, normal color. Absent: rash Course Vital Signs 02/20/21 02/20/21 02:11 06:00 Temperature 97.7 F Pulse Rate 66 63 Respiratory 16 18 Rate Blood Pressure 184/89 196/93 O2 Sat by Pulse 98 95 Oximetry - Reevaluation(s) Reevaluation #1: 02/20/21 03:09 Medical record is reviewed Reevaluation #2: 02/20/21 06:18 Patient not feeling improved after symptomatic therapy Be dose pain medication Reevaluation #3: 02/20/21 06:19 Patient still having intractable pain with nausea Reevaluation #4: 02/20/21 06:19 Patient informed of results and questions are answered - Consultations Consultation #1: Spoke with Dr. Saldaña we'll admit this patient Medical Decision Making - Medical Decision Making 70 male to the emergency department with significant history of Crohn's disease coming in for intractable nausea and vomiting, intractable abdominal pain and bloating. CT is unchanged relatively from prior lab values do show some dehydration patient be admitted for symptomatic therapy resuscitation - Lab Data Result diagrams: 02/20/21 03:52 02/20/21 03:52 Lab Results 02/20/21 02/20/21 02/20/21 Range/Units 03:52 03:52 03:52 WBC 8.6 (3.8-10.6) k/uL RBC 3.80 L (4.30-5.90) m/uL Hgb 10.7 L (13.0-17.5) gm/dL Hct 34.6 L (39.0-53.0) % MCV 91.3 (80.0-100.0) fL MCH 28.3 (25.0-35.0) pg MCHC 31.0 (31.0-37.0) g/dL RDW 17.1 H (11.5-15.5) % Plt Count 192 (150-450) k/uL MPV 8.6 Neutrophils % 55 % Lymphocytes % 35 % Monocytes % 5 % Eosinophils % 2 % Basophils % 0 % Neutrophils # 4.8 (1.3-7.7) k/uL Lymphocytes # 3.0 (1.0-4.8) k/uL Monocytes # 0.4 (0-1.0) k/uL Eosinophils # 0.2 (0-0.7) k/uL Basophils # 0.0 (0-0.2) k/uL Anisocytosis Slight Sodium 136 L (137-145) mmol/L Potassium 4.4 (3.5-5.1) mmol/L Chloride 112 H (98-107) mmol/L Carbon Dioxide 17 L (22-30) mmol/L Anion Gap 7 mmol/L BUN 18 (9-20) mg/dL Creatinine 1.15 (0.66-1.25) mg/dL Est GFR (CKD-EPI)AfAm 75 (>60 ml/min/1.73 sqM) Est GFR (CKD-EPI)NonAf 65 (>60 ml/min/1.73 sqM) Glucose 100 H (74-99) mg/dL Plasma Lactic Acid Kal (0.7-2.0) mmol/L Calcium 8.9 (8.4-10.2) mg/dL Total Bilirubin 0.5 (0.2-1.3) mg/dL AST 30 (17-59) U/L ALT 16 (4-49) U/L Alkaline Phosphatase 44 (38-126) U/L Total Protein 6.5 (6.3-8.2) g/dL Albumin 3.3 L (3.5-5.0) g/dL Amylase 116 H (30-110) U/L Lipase 32 (23-300) U/L Urine Color Yellow Urine Appearance Clear (Clear) Urine pH 5.5 (5.0-8.0) Ur Specific [place] 1.017 (1.001-1.035) Urine Protein Negative (Negative) Urine Glucose (UA) Negative (Negative) Urine Ketones Negative (Negative) Urine Blood Negative (Negative) Urine Nitrite Negative (Negative) Urine Bilirubin Negative (Negative) Urine Urobilinogen <2.0 (<2.0) mg/dL Ur Leukocyte Esterase Negative (Negative) 02/20/21 Range/Units 03:52 WBC (3.8-10.6) k/uL RBC (4.30-5.90) m/uL Hgb (13.0-17.5) gm/dL Hct (39.0-53.0) % MCV (80.0-100.0) fL MCH (25.0-35.0) pg MCHC (31.0-37.0) g/dL RDW (11.5-15.5) % Plt Count (150-450) k/uL MPV Neutrophils % % Lymphocytes % % Monocytes % % Eosinophils % % Basophils % % Neutrophils # (1.3-7.7) k/uL Lymphocytes # (1.0-4.8) k/uL Monocytes # (0-1.0) k/uL Eosinophils # (0-0.7) k/uL Basophils # (0-0.2) k/uL Anisocytosis Sodium (137-145) mmol/L Potassium (3.5-5.1) mmol/L Chloride (98-107) mmol/L Carbon Dioxide (22-30) mmol/L Anion Gap mmol/L BUN (9-20) mg/dL Creatinine (0.66-1.25) mg/dL Est GFR (CKD-EPI)AfAm (>60 ml/min/1.73 sqM) Est GFR (CKD-EPI)NonAf (>60 ml/min/1.73 sqM) Glucose (74-99) mg/dL Plasma Lactic Acid Kal 1.4 (0.7-2.0) mmol/L Calcium (8.4-10.2) mg/dL Total Bilirubin (0.2-1.3) mg/dL AST (17-59) U/L ALT (4-49) U/L Alkaline Phosphatase (38-126) U/L Total Protein (6.3-8.2) g/dL Albumin (3.5-5.0) g/dL Amylase (30-110) U/L Lipase (23-300) U/L Urine Color Urine Appearance (Clear) Urine pH (5.0-8.0) Ur Specific [place] (1.001-1.035) Urine Protein (Negative) Urine Glucose (UA) (Negative) Urine Ketones (Negative) Urine Blood (Negative) Urine Nitrite (Negative) Urine Bilirubin (Negative) Urine Urobilinogen (<2.0) mg/dL Ur Leukocyte Esterase (Negative) - Radiology Data Radiology results: report reviewed (CT head and pelvis negative for significant acute changes emergency), image reviewed Disposition Clinical Impression: Dehydration, Abdominal pain, Nausea and vomiting, Nausea, Crohns disease, Hx of Crohn's disease Disposition: ADMITTED IP TO THIS HOSP Condition: Good Is patient prescribed a controlled substance at d/c from ED?: No Referrals: Minh Saldñaa MD [Primary Care Provider] - 1-2 days
[2021-02-20] MEDS ORDERED: diphenhydrAMINE 50 MG/ML 1 ML VIAL IVP STA (03:51)
[2021-02-20] MEDS ORDERED: methylPREDNISolone SOD SUCCI 125 MG/2 ML VIAL IV STA (03:51)
[2021-02-20] MEDS ORDERED: FAMOTIDINE 20 MG/2 ML VIAL IV STA (03:51)
[2021-02-20 04:33] LABS: Appearance,Urine Clear (Clear); Bilirubin,Urine Negative (Negative); Blood,Urine Negative (Negative); Color,Urine Yellow; Glucose,Urine (UA) Negative (Negative); Ketones,Urine Negative (Negative); Leukocyte Esterase,Urine Negative (Negative); Nitrite,Urine Negative (Negative); PH, Urine 5.5 (5.0-8.0); Protein,Urine Negative (Negative); Specific Gravity,Urine 1.017 (1.001-1.035); Urobilinogen,Urine <2.0 mg/dL (<2.0)
[2021-02-20 04:38] LABS: Anisocytosis Slight; Basophils % (A) 0 %; Eosinophils # (A) 0.2 k/uL (0-0.7); Eosinophils % (A) 2 %; HCT 34.6 % (39.0-53.0); HGB 10.7 gm/dL (13.0-17.5); Lymphocytes % (A) 35 %; MCH 28.3 pg (25.0-35.0); MCV 91.3 fL (80.0-100.0); Mean Platelet Volume 8.6; Monocytes # (A) 0.4 k/uL (0-1.0); Monocytes % (A) 5 %; Neutrophils # (A) 4.8 k/uL (1.3-7.7); Neutrophils % (A) 55 %; Platelet Count 192 k/uL (150-450); RDW 17.1 % (11.5-15.5); WBC 8.6 k/uL (3.8-10.6)
[2021-02-20 05:01] LABS: Albumin 3.3 g/dL (3.5-5.0); Calcium 8.9 mg/dL (8.4-10.2); Potassium 4.4 mmol/L (3.5-5.1); Total Bilirubin 0.5 mg/dL (0.2-1.3); Total Protein 6.5 g/dL (6.3-8.2)
[2021-02-20] MEDS ORDERED: HYDROmorphone 1 MG/ML 1 ML SYRINGE IVP STA (05:28)
[2021-02-20] MEDS ORDERED: METOCLOPRAMIDE 5 MG/ML 2 ML VIAL IVP STA (05:28)
[2021-02-20] MEDS ORDERED: DICYCLOMINE 10 MG/ML 2 ML AMP IM STA (05:28)
[2021-02-20] MEDS ORDERED: METOCLOPRAMIDE 5 MG/ML 2 ML VIAL IVP PRN (05:28)
[2021-02-20] MEDS ORDERED: LABETALOL 5 MG/ML VIAL MDV IVP STA (05:59)
--- NOTE | 2021-02-20 06:10 | CT ---
EXAMINATION TYPE: CT abdomen pelvis wo con DATE OF EXAM: 02/20/2021 COMPARISON: 12/28/2020 HISTORY: rule of kidney stones. hx of bowel obstructions CT DLP: 447 mGycm Automated exposure control for dose reduction was used. There is some mild scarring and subsegmental atelectasis at the lung bases. Heart is enlarged. There is no pericardial effusion. There are clips from cholecystectomy. There are multiple small calcified splenic granulomata. Stomach is intact. There is no pancreatic mass. The bile ducts are not dilated. There is no adrenal mass. There are numerous bilateral renal calculi that measure up to 6 mm. There i s no hydronephrosis. Ureters are not dilated. There is no retroperitoneal adenopathy. There is 3 cm c ortical cyst posterior right kidney. There are surgical clips at the cecum. Bladder distends smoothly. There is no inguinal hernia. There is no free fluid in the pelvis. There is no mesenteric edema. There is no ascites or free air. There is no sign of a bowel obstruction. The lumbar vertebra have normal alignment. There is no compression fracture. There is mild posterior disc herniation at L4-5 and L5-S1. The bony pelvis is intact. Sacroiliac joints are intact. IMPRESSION: Numerous nonobstructing bilateral renal calculi. Previous surgery at the cecum. No acute abnormality of the abdomen pelvis. No significant change.
[2021-02-20] MEDS ORDERED: ONDANSETRON 4 MG/2 ML VIAL IVP PRN (06:17)
[2021-02-20] MEDS ORDERED: diphenhydrAMINE 50 MG/ML 1 ML VIAL IVP PRN (06:17)
[2021-02-20] MEDS ORDERED: NALOXONE 0.4 MG/ML 1 ML VIAL IV PRN (06:55)
--- NOTE | 2021-02-20 07:59 | P.HPIM ---
History of Present Illness H&P Date: 02/20/21 Chief Complaint: The patient is here essentially for Crohn's The patient is a 70-year-old white male essentially admitted for severe abdominal pain. Significant bloating. He was actually discharged several weeks ago with similar symptoms and states that he's still been having difficulty. He's been taking Humira in the past. We will ask GI to see the patient for secondary opinion. He has struggled for many many years with this. No significant fever however,'s bloating and significant pain is noted. He also struggles with opiate dependency and is Suboxone to the patient. Review of Systems All systems: negative Gastrointestinal: Reports as per HPI, Reports abdominal pain, Reports bloating, Reports loss of appetite, Denies hematemesis, Denies hematochezia Past Medical History Past Medical History: Atrial Fibrillation, GERD/Reflux, Hypertension, Rheumatoid Arthritis (RA), Skin Disorder, Supraventricular Tachycardia (SVT) Additional Past Medical History / Comment(s): hx CROHN'S (takes tresa), IBS, chronic diarrhea, migraines-, hx ulcers, anemia, gout, kidney stones, psoriasis, bilateral tinnitis., pinched sciatic nerve, C-Diff 2017, neuropathy History of Any Multi-Drug Resistant Organisms: C-DIFF Date of last positivie culture/infection: stool MDRO Source:: 2017 Past Surgical History: Bowel Resection, Cardiac Ablation, Cholecystectomy, Heart Catheterization, Hernia Repair, Orthopedic Surgery, Tonsillectomy Additional Past Surgical History / Comment(s): 1/3 of stomach removed (partial gastrectomy), ulcers, bowel resections, fecal transplant 2017, bilateral knee arthroscopic surgery, EGD/colonoscopies, R inguinal hernia repair, bilat cataract removal, Past Anesthesia/Blood Transfusion Reactions: Blood Transfusion Reaction, Motion Sickness Additional Past Anesthesia/Blood Transfusion Reaction / Comment(s): BLOOD TRANSFUSION- BROKE OUT IN [place]ES age 21 Past Psychological History: Anxiety Smoking Status: Never smoker Past Alcohol Use History: Occasional Past Drug Use History: None Reported - Past Family History Mother Family Medical History: Pulmonary Embolus Additional Family Medical History / Comment(s): AGE 73-[place], STROKE DURING CARATID PROCEDURE Medications and Allergies Home Medications Medication Instructions Recorded Confirmed Type Orphenadrine Citrate [Orphenadrine 100 mg PO BID 12/08/17 02/07/21 History Citrate ER] Adalimumab [Humira Pen] 40 mg SQ Q14D 04/25/18 02/07/21 History Febuxostat [Uloric] 80 mg PO DAILY 05/05/18 02/07/21 History Buprenorphine HCl/Naloxone HCl 1 film SL HS 12/12/18 02/07/21 History [Suboxone 2 mg-0.5 mg Sl Film] amLODIPine [Norvasc] 10 mg PO DAILY 10/18/20 02/07/21 History Aspirin/Acetaminophen/Caffeine 1 cap PO Q4H PRN 12/28/20 02/07/21 History [Excedrin Migraine Caplet] Omeprazole [PriLOSEC] 20 mg PO AC-BID 12/28/20 02/07/21 History Pantoprazole [Protonix] 40 mg PO BID #60 tab 12/31/20 02/07/21 Rx Allergies Allergy/AdvReac Type Severity Reaction Status Date / Time Iodinated Contrast Media Allergy Anaphylaxis Verified 02/20/21 07:50 [Iodinated Contrast Media - IV Dye] Physical Exam Vitals: Vital Signs Temp Pulse Resp BP Pulse Ox 02/20/21 07:42 98 F 58 L 18 152/85 98 02/20/21 06:00 63 18 196/93 95 02/20/21 02:11 97.7 F 66 16 184/89 98 Intake and Output 02/19/21 02/20/21 02/20/21 22:59 06:59 14:59 Other: Weight 71.214 kg - Constitutional General appearance: no acute distress - EENT Eyes: EOMI - Neck Neck: no lymphadenopathy - Respiratory Respiratory: bilateral: CTA - Cardiovascular Rhythm: regular Heart sounds: normal: S1, S2 Abnormal Heart Sounds: no S3 Gallop - Gastrointestinal General gastrointestinal: decreased bowel sounds, distended - Integumentary Integumentary: no cellulitis - Neurologic Neurologic: CNII-XII intact Results CBC & Chem 7: 02/20/21 03:52 02/20/21 03:52 Labs: Abnormal Lab Results - Last 24 Hours (Table) 02/20/21 02/20/21 Range/Units 03:52 03:52 RBC 3.80 L (4.30-5.90) m/uL Hgb 10.7 L (13.0-17.5) gm/dL Hct 34.6 L (39.0-53.0) % RDW 17.1 H (11.5-15.5) % Sodium 136 L (137-145) mmol/L Chloride 112 H (98-107) mmol/L Carbon Dioxide 17 L (22-30) mmol/L Glucose 100 H (74-99) mg/dL Albumin 3.3 L (3.5-5.0) g/dL Amylase 116 H (30-110) U/L Assessment and Plan (1) Abdominal pain Current Visit: Yes Status: Acute Code(s): R10.9 - UNSPECIFIED ABDOMINAL PAIN SNOMED Code(s): 75265240 (2) Crohns disease Current Visit: Yes Status: Acute Code(s): K50.90 - CROHN'S DISEASE, UNSPECIFIED, WITHOUT COMPLICATIONS SNOMED Code(s): 29476233 (3) Dehydration Current Visit: Yes Status: Acute Code(s): E86.0 - DEHYDRATION SNOMED Code(s): 67787823 (4) Hypertension Current Visit: No Status: Acute Code(s): I10 - ESSENTIAL (PRIMARY) HYPERTENSION SNOMED Code(s): 08440298 (5) Gout Current Visit: No Status: Chronic Code(s): M10.9 - GOUT, UNSPECIFIED SNOMED Code(s): 11975159 (6) Rheumatoid arthritis Current Visit: No Status: Chronic Code(s): M06.9 - RHEUMATOID ARTHRITIS, UNSPECIFIED SNOMED Code(s): 07022085 Plan: Reconcile home medications. Adjust amlodipine and other antihypertensives as necessary. IV hydration as necessary. Consul GI. Check CBC and CMP in a.m. GI prophylaxis otherwise.
[2021-02-20] MEDS ORDERED: methylPREDNISolone SOD SUCCI 125 MG/2 ML VIAL IV SCH (08:00)
[2021-02-20] MEDS ORDERED: PANTOPRAZOLE 40 MG/10 ML VIAL IV SCH (09:00)
[2021-02-20] MEDS: CYCLOBENZAPRINE 10 MG TAB PO SCH ×2 (09:06→20:50)
[2021-02-20] MEDS: HYDROmorphone 1 MG/ML 1 ML SYRINGE IVP PRN ×4 (09:13→20:55)
[2021-02-20] MEDS: SODIUM CHLORIDE 0.9% 1,000 ML IV SCH ×3 (10:59→23:19)
--- NOTE | 2021-02-20 12:18 | P.CONS ---
History of Present Illness - Reason for Consult Consult date: 02/20/21 Crohns disease Requesting physician: Minh Saldaña - Chief Complaint Abdominal pain - History of Present Illness 70-year-old male with medical history significant for GERD, hypertension, limited arthritis, nephrolithiasis, psoriasis, prior partial gastrectomy and Crohn's disease currently managed with Humira who presented to the emergency department with complaints of abdominal pain and bloating. Patient states pain has been ongoing for the last 3 weeks duration. States his bowel movements have been loose up to 10-12 per day, states there is no rectal bleeding or blood in his stool. States he was recently seen here in 2 weeks ago in the emergency department and sent home. He is unsure of last appointment with Dr. Yancey and states his next appointment is scheduled in April. He also reports he has had an approximate 30 pound weight loss over the last 1 year duration. The patient has recently undergone colonoscopy on 01/21/2016 and at that time the p atient had a normal-appearing colon from rectum to transverse colon with no active colitis neoplasia noted and a patent ileocolic anastomosis in the transverse colon. CT of the abdomen and pelvis shows numerous nonobstructing bilateral renal calculi. Previous surgery at the cecum. No acute abnormality of the abdomen and pelvis. No significant change. Admitting labs WBC 8.6 hemoglobin 10.7 hematocrit 34.6 platelet count 192,000 total bilirubin 0.5 AST 30 ALT 16 alk phos 44, amylase 116 lipase 32 C reactive protein less than 0.5 Review of Systems REVIEW OF SYSTEMS: CARDIOPULMONARY: No chest pain or shortness of breath. Gastrointestinal: Abdominal pain and bloating states that it's more of a dull aching. No nausea or vomiting. No hematemesis, coffee-ground emesis. No rectal bleeding, or melena. Loose stool up to 10-12 times a day. GENITOURINARY: No dysuria or hematuria. MUSCULOSKELETAL: Reports normal range of motion., Joint pain. SKIN: No rashes. No jaundice. ENDOCRINE: No chills, fevers. No excessive weight gain or loss. No polydipsia or polyuria. PSYCHIATRIC: Unremarkable. NEUROLOGY: No change in mental status. Denies dizziness, headache. ENT: Vision unremarkable. CONSTITUTIONAL: About a 30 pound weight loss over the last one year. No fever, chills, night sweats. Past Medical History Past Medical History: Atrial Fibrillation, GERD/Reflux, Hypertension, Rheumatoid Arthritis (RA), Skin Disorder, Supraventricular Tachycardia (SVT) Additional Past Medical History / Comment(s): hx CROHN'S (takes tresa), IBS, chronic diarrhea, migraines-, hx ulcers, anemia, gout, kidney stones, psoriasis, bilateral tinnitis., pinched sciatic nerve, C-Diff 2017, neuropathy History of Any Multi-Drug Resistant Organisms: C-DIFF Year Discovered:: stool MDRO Source:: 2017 Past Surgical History: Bowel Resection, Cardiac Ablation, Cholecystectomy, Heart Catheterization, Hernia Repair, Orthopedic Surgery, Tonsillectomy Additional Past Surgical History / Comment(s): 1/3 of stomach removed (partial gastrectomy), ulcers, bowel resections, fecal transplant 2017, bilateral knee arthroscopic surgery, EGD/colonoscopies, R inguinal hernia repair, bilat catara ct removal, Past Anesthesia/Blood Transfusion Reactions: Blood Transfusion Reaction, Motion Sickness Additional Past Anesthesia/Blood Transfusion Reaction / Comm: BLOOD TRANSFUSION- BROKE OUT IN HIVES age 21 Past Psychological History: Anxiety Smoking Status: Never smoker Past Alcohol Use History: Occasional Past Drug Use History: None Reported - Past Family History Mother Family Medical History: Pulmonary Embolus Additional Family Medical History / Comment(s): AGE 73-[place], STROKE DURING CARATID PROCEDURE Medications and Allergies Home Medications Medication Instructions Recorded Confirmed Type Orphenadrine Citrate [Orphenadrine 100 mg PO BID 12/08/17 02/20/21 History Citrate ER] Adalimumab [Humira Pen] 40 mg SQ Q14D 04/25/18 02/20/21 History Febuxostat [Uloric] 80 mg PO DAILY 05/05/18 02/20/21 History Buprenorphine HCl/Naloxone HCl 1 film SL DAILY@1600 12/12/18 02/20/21 History [Suboxone 2 mg-0.5 mg Sl Film] amLODIPine [Norvasc] 10 mg PO DAILY 10/18/20 02/20/21 History Pantoprazole [Protonix] 40 mg PO DAILY 02/20/21 02/20/21 History Allergies Allergy/AdvReac Type Severity Reaction Status Date / Time Iodinated Contrast Media Allergy Anaphylaxis Verified 02/20/21 07:50 [Iodinated Contrast Media - IV Dye] Physical Exam Vitals: Vital Signs Temp Pulse Resp BP Pulse Ox 02/20/21 06:00 63 18 196/93 95 02/20/21 02:11 97.7 F 66 16 184/89 98 Intake and Output 02/19/21 02/20/21 02/20/21 22:59 06:59 14:59 Other: Weight 71.214 kg General appearance: The patient is alert, oriented, appears in no acute distress. HET: Head is normocephalic and atraumatic. Conjunctiva pink. Sclera anicteric. Neck: Supple without lymphadenopathy. Trachea midline. Heart: S1 S2. Regular rate and rhythm. Lungs: Clear to auscultation. Abdomen: Soft, mild diffuse tenderness, nondistended with bowel sounds. No guarding or rigidity. Skin: No rashes. No jaundice. Extremities: Normal skin color and turgor. No pedal edema. Neurological: No focal deficits. Alert and oriented x3. Results CBC & Chem 7: 02/20/21 03:52 02/20/21 03:52 Labs: Abnormal Lab Results - Last 24 Hours (Table) 02/20/21 02/20/21 Range/Units 03:52 03:52 RBC 3.80 L (4.30-5.90) m/uL Hgb 10.7 L (13.0-17.5) gm/dL Hct 34.6 L (39.0-53.0) % RDW 17.1 H (11.5-15.5) % Sodium 136 L (137-145) mmol/L Chloride 112 H (98-107) mmol/L Carbon Dioxide 17 L (22-30) mmol/L Glucose 100 H (74-99) mg/dL Albumin 3.3 L (3.5-5.0) g/dL Amylase 116 H (30-110) U/L CT scan - abdomen: report reviewed Assessment and Plan (1) Abdominal pain Narrative/Plan: 70-year-old male with a long-standing history of Crohn's disease currently being treated with Humira every 2 weeks. Patient states he's been having increased abdominal discomfort and bloating for the last 3 weeks duration. He states he has some mild nausea but no vomiting. He has had some weight loss over the last 1 year duration up to 30 pounds. He follows with Dr. Yancey, he is unsure of last office visit but states he is supposed to see her in April. Patient states he was recently seen in the emergency department approximately 2 weeks ago given the option to be sent home or transferred to outside facility as there was no GI coverage. Patient states he went home. He denies any blood in his stool and denies any rectal bleeding. He's been afebrile. Lab work is unremarkable. CRP is less than 0.5. Sed rate is pending. CT of the abdomen and pelvis show no acute findings. Dr. Saldaña started patient on Solu-Medrol 60 mg every 8 hours. Patient has a significant history of recurrent hospita lizations for abdominal pain which he believes is acute Crohn's exacerbation however inflammatory markers are consistently normal. Current Visit: Yes Status: Acute Code(s): R10.9 - UNSPECIFIED ABDOMINAL PAIN SNOMED Code(s): 38618097 (2) Crohns disease Current Visit: Yes Status: Acute Code(s): K50.90 - CROHN'S DISEASE, UNSPECIFIED, WITHOUT COMPLICATIONS SNOMED Code(s): 62168909 Plan: 1. Continue symptomatic and supportive care 2. Would recommend decreasing Solu-Medrol to 20 mg IV every 8 hours. Recommend changing to oral Prednisone 30 mg daily tomorrow morning with taper dose 10 mg per week. 3. May start clear liquid diet and advance as tolerated 4. No plans on endoscopic evaluation 5. Continue dicyclomine as needed Thank you for allowing us to participate in the care of the patient, the GI service will sign off, gastroenterology will not be available at the hospital this weekend and through next week. If further evaluation by gastroenterology is required the patient will need transfer as per the primary team's discretion. Dr. Elizabeth Yancey I agree with the dictator's note, documented as a scribe by Stacey Mccoy.
[2021-02-20] MEDS: methylPREDNISolone SOD SUCCI 40 MG/ML 1 ML VIAL IV SCH ×2 (18:17→23:26)
[2021-02-20] MEDS ORDERED: PANTOPRAZOLE 40 MG TABLET PO SCH (18:30)
[2021-02-20] MEDS: amLODIPine 10 MG TAB PO SCH (19:05)
[2021-02-20] MEDS ORDERED: ADALIMUMAB SQ SCH (21:00)
[2021-02-21] MEDS: HYDROmorphone 1 MG/ML 1 ML SYRINGE IVP PRN ×6 (00:59→22:41)
[2021-02-21 03:16] LABS: Anisocytosis Slight; HCT 33.4 % (39.0-53.0); HGB 10.5 gm/dL (13.0-17.5); MCH 29.2 pg (25.0-35.0); MCHC 31.5 g/dL (31.0-37.0); MCV 92.5 fL (80.0-100.0); Mean Platelet Volume 7.7; Platelet Count 203 k/uL (150-450); RBC 3.61 m/uL (4.30-5.90); RDW 17.5 % (11.5-15.5); WBC 6.8 k/uL (3.8-10.6)
[2021-02-21] MEDS: SODIUM CHLORIDE 0.9% 1,000 ML IV SCH ×3 (05:31→22:42)
[2021-02-21] MEDS: allopurinoL 100 MG TAB PO SCH (07:40)
[2021-02-21] MEDS: PANTOPRAZOLE 40 MG TABLET PO SCH (07:40)
[2021-02-21] MEDS: CYCLOBENZAPRINE 10 MG TAB PO SCH ×2 (07:41→20:54)
[2021-02-21] MEDS: amLODIPine 10 MG TAB PO SCH (07:41)
[2021-02-21] MEDS: methylPREDNISolone SOD SUCCI 40 MG/ML 1 ML VIAL IV SCH ×2 (08:36→15:22)
[2021-02-21 10:14] LABS: ALT 18 U/L (10-49); AST 25 U/L (14-35); Albumin 3.6 g/dL (3.8-4.9); Albumin/Globulin Ratio 1.27 (1.60-3.17); Alkaline Phosphatase 48 U/L (41-126); BUN/Creat Ratio 13.39 Ratio (12.00-20.00); Blood Urea Nitrogen 15.8 mg/dL (9.0-27.0); Calcium 8.6 mg/dL (8.7-10.3); Carbon Dioxide 19.2 mmol/L (21.6-31.8); Chloride 109 mmol/L (96-109); Globulin 2.8 g/dL (1.6-3.3); Glucose 154 mg/dL (70-110); Non-African American GFR(CKD) 62.2 (60.0-200.0); Potassium 4.3 mmol/L (3.5-5.5); Sodium 139 mmol/L (135-145); Total Protein 6.4 g/dL (6.2-8.2)
[2021-02-21 10:33] LABS: C Reactive Protein <0.30 mg/dL (0.00-0.80)
--- NOTE | 2021-02-21 12:04 | XR ---
KUB. HISTORY: Abdominal distention and pain COMPARISON: 02/07/2021. TECHNIQUE: 2 upright views the abdomen were obtained. FINDINGS: The lung bases are clear. There is no free intraperitoneal air. There are postsurgical changes in the gastroesophageal junction and right upper quadrant. The bowel gas pattern is nonspecific and there is no evidence of obstruction. There is no free intrap eritoneal air beneath the diaphragms. The osseous structures are intact. IMPRESSION: Nonspecific abdomen without evidence of free air or obstruction.
[2021-02-21] MEDS: METOPROLOL TARTRATE 25 MG TAB PO SCH ×2 (15:22→20:54)
--- NOTE | 2021-02-21 17:32 | P.PN ---
Subjective This is a pleasant 70 years old male with multiple medical problems and history of Crohn disease presents with abdominal pain and GI symptoms and has been evaluated by GI service yesterday and found to have acute gastroenteritis with diarrhea most likely related to his illness of Crohn disease. His ESR elevated at 24. KUB today is negative. Patient is on low fiber diet and tolerates that well, he still have some mild to moderate lower abdominal pain, no bowel movement in his abdomen slightly distended but KUB is negative as mentioned earlier. No vomiting His blood pressure is elevated and he is already on Norvasc 10 mg, also metoprolol 25 mg added. Lower IV fluids to 75 mL/h, it was at 130 mL/h. Also her GI team recommendation was which this IV Solu-Medrol 20 mg and to prednisone 30 mg by mouth daily with plan to lower by 10 mg weekly. Objective - Vital Signs Vital signs: Vital Signs Temp 98.0 F 02/21/21 14:26 Pulse 78 02/21/21 14:26 Resp 18 02/21/21 14:26 BP 178/79 02/21/21 14:26 Pulse Ox 98 02/21/21 14:26 Intake & Output 02/20/21 02/21/21 02/21/21 18:59 06:59 18:59 Intake Total 1200 Balance 1200 Weight 71.214 kg Intake: Oral 1200 Other: Voiding Method Toilet Toilet # Voids 1 2 - Exam GENERAL: The patient is alert and oriented x3, not in any acute distress. Well developed, well nourished. HEENT: Pupils are round and equally reacting to light. EOMI. No scleral icterus. No conjunctival pallor. Normocephalic, atraumatic. No pharyngeal erythema. No t hyromegaly. CARDIOVASCULAR: S1 and S2 present. No murmurs, rubs, or gallops. PULMONARY: Chest is clear to auscultation, no wheezing or crackles. -ABDOMEN: Soft, mild lower abdominal tenderness with no guarding or rebound tenderness, nondistended, normoactive bowel sounds. No palpable organomegaly. MUSCULOSKELETAL: No joint swelling or deformity. EXTREMITIES: No cyanosis, clubbing, or pedal edema. NEUROLOGICAL: Gross neurological examination did not reveal any focal deficits. SKIN: No rashes. no petechiae. - Labs CBC & Chem 7: 02/21/21 03:02 02/21/21 03:02 Labs: Abnormal Lab Results - Last 24 Hours (Table) 02/21/21 02/21/21 02/21/21 Range/Units 03:02 03:02 03:02 RBC 3.61 L (4.30-5.90) m/uL Hgb 10.5 L (13.0-17.5) gm/dL Hct 33.4 L (39.0-53.0) % RDW 17.5 H (11.5-15.5) % ESR 24 H (0-15) mm/hr Carbon Dioxide 19.2 L (21.6-31.8) mmol/L Glucose 154 H (70-110) mg/dL Calcium 8.6 L (8.7-10.3) mg/dL Albumin 3.6 L (3.8-4.9) g/dL Albumin/Globulin Ratio 1.27 L (1.60-3.17) g/dL Assessment and Plan Assessment: Acute gastroenteritis, most likely related to Crohn's disease Acute Crohn's exacerbation Hypertension Plan: This is a pleasant 70 years old male who presents with gastroenteritis and Crohn disease. Switch Solu-Medrol to prednisone 30 mg daily with plan to lower leg by 10 mg every week. Continue with gentle hydration and monitor blood pressure Add metoprolol Labs and medication were reviewed.. Continue same treatment. Continue with symptomatic treatment. Resume home medication. Monitor lytes and vitals. DVT and GI prophylaxis. Further recommendationsas per clinical course of the patient DVT prophylaxis: Subcutaneous heparin GI Prophylaxis: Ppi Prognosis is guarded
[2021-02-21] MEDS: HEPARIN SODIUM,PORCINE/PF 5,000 UNIT/0.5 ML SYRINGE SQ SCH (20:54)
[2021-02-22] MEDS: HYDROmorphone 1 MG/ML 1 ML SYRINGE IVP PRN ×2 (01:53→06:07)
[2021-02-22] MEDS: allopurinoL 100 MG TAB PO SCH (07:02)
[2021-02-22] MEDS: HEPARIN SODIUM,PORCINE/PF 5,000 UNIT/0.5 ML SYRINGE SQ SCH ×2 (07:02→21:28)
[2021-02-22] MEDS: amLODIPine 10 MG TAB PO SCH (07:03)
[2021-02-22] MEDS: predniSONE 10 MG TAB PO SCH (07:03)
[2021-02-22] MEDS: CYCLOBENZAPRINE 10 MG TAB PO SCH ×2 (07:03→21:28)
[2021-02-22] MEDS: PANTOPRAZOLE 40 MG TABLET PO SCH (07:03)
[2021-02-22] MEDS: METOPROLOL TARTRATE 25 MG TAB PO SCH (07:03)
[2021-02-22] MEDS ORDERED: HYDROmorphone 0.5 MG/0.5 ML SYRINGE IVP PRN (08:57)
[2021-02-22] MEDS: hydrALAZINE HCL 25 MG TAB PO PRN ×2 (09:09→14:26)
[2021-02-22] MEDS: SODIUM CHLORIDE 0.9% 1,000 ML IV SCH (09:10)
--- NOTE | 2021-02-22 11:05 | P.PN ---
Subjective This is a pleasant 70 years old male with multiple medical problems and history of Crohn disease presents with abdominal pain and GI symptoms and has been evaluated by GI service yesterday and found to have acute gastroenteritis with diarrhea most likely related to his illness of Crohn disease. His ESR elevated at 24. KUB today is negative. Patient is on low fiber diet and tolerates that well, he still have some mild to moderate lower abdominal pain, no bowel movement in his abdomen slightly distended but KUB is negative as mentioned earlier. No vomiting His blood pressure is elevated and he is already on Norvasc 10 mg, also metoprolol 25 mg added. Lower IV fluids to 75 mL/h, it was at 130 mL/h. Also her GI team recommendation was which this IV Solu-Medrol 20 mg and to prednisone 30 mg by mouth daily with plan to lower by 10 mg weekly. 02/22/2021 Patients with no abdominal pain or vomiting however he still have diarrhea although it is improving down to 5-6 times per day. No blood in the stool as per patient and he tolerates diet. Other than that he is hemodynamically stable however his blood pressure is elevated 186/82. Patient has uncontrolled hypertension since admission and on the top of that he was started on normal saline and steroids. Yesterday we added metoprolol 25 mg however today he is bradycardic 50 5 so lower the dose of metoprolol down to 12.5 mg. Continued with home dose of Norvasc 10 mg. Also we will add doxazosin 2 mg tonight. Patient placed on hydralazine when necessary and discussed with the bedside nurse to monitor blood pressure. This pain is better controlled and he lowered his Dilaudid down to 0.5 mg every 6 hours as needed. C. diff is negative. KUB from yesterday also was negative. However ESR was slightly elevated at 24. GI service or the so the patient Objective - Vital Signs Vital signs: Vital Signs Temp 97.5 F L 02/22/21 07:49 Pulse 51 L 02/22/21 07:49 Resp 18 02/22/21 07:49 BP 166/78 02/22/21 09:11 Pulse Ox 95 02/22/21 07:49 Intake & Output 02/21/21 02/22/21 02/22/21 19:59 06:59 18:59 Intake Total Balance Intake: Intake, IV Titration Amount Sodium Chloride 0.9% 1, 000 ml @ 75 mls/hr IV . [id number] [facility] Rx#:[id number] Oral Other: # Voids # Bowel Movements - Exam GENERAL: The patient is alert and oriented x3, not in any acute distress. Well developed, well nourished. HEENT: Pupils are round and equally reacting to light. EOMI. No scleral icterus. No conjunctival pallor. Normocephalic, atraumatic. No pharyngeal erythema. No thyromegaly. CARDIOVASCULAR: S1 and S2 present. No murmurs, rubs, or gallops. PULMONARY: Chest is clear to auscultation, no wheezing or crackles. -ABDOMEN: Soft, mild lower abdominal tenderness with no guarding or rebound t enderness, nondistended, normoactive bowel sounds. No palpable organomegaly. MUSCULOSKELETAL: No joint swelling or deformity. EXTREMITIES: No cyanosis, clubbing, or pedal edema. NEUROLOGICAL: Gross neurological examination did not reveal any focal deficits. SKIN: No rashes. no petechiae. - Labs CBC & Chem 7: 02/21/21 03:02 02/21/21 03:02 Assessment and Plan Assessment: Acute gastroenteritis, most likely related to Crohn's disease Acute Crohn's exacerbation Hypertension Plan: This is a pleasant 70 years old male who presents with gastroenteritis and Crohn disease. Switch Solu-Medrol to prednisone 30 mg daily with plan to lower leg by 10 mg every week. Continue with gentle hydration and monitor blood pressure No dose of metoprolol until 12.5 mg. Add doxazosin. Continue with Norvasc. Monitor blood pressure Labs and medication were reviewed.. Continue same treatment. Continue with symptomatic treatment. Resume home medication. Monitor lytes and vitals. DVT and GI prophylaxis. Further recommendationsas per clinical course of the patient DVT prophylaxis: Subcutaneous heparin GI Prophylaxis: Ppi Prognosis is guarded Dr. Saldaña will resume the care of the patient tomorrow
[2021-02-22 12:37] LABS: Basophils # (A) 0.02 X 10*3/uL (0.00-0.10); Basophils % (A) 0.2 %; Eosinophils # (A) 0.03 X 10*3/uL (0.04-0.35); Eosinophils % (A) 0.3 %; HCT 33.4 % (39.6-50.0); HGB 9.9 g/dL (13.0-17.0); Lymphocytes # (A) 2.76 X 10*3/uL (0.90-5.00); Lymphocytes % (A) 29.6 %; MCHC 29.6 g/dL (32.0-37.0); MCV 94.6 fL (80.0-97.0); Mean Platelet Volume 11.9 fL (9.5-12.2); Monocytes # (A) 0.65 X 10*3/uL (0.20-1.00); Neutrophils # (A) 5.82 X 10*3/uL (1.80-7.70); Neutrophils % (A) 62.6 %; Platelet Count 182 X 10*3/uL (140-440); RBC 3.53 X 10*6/uL (4.40-5.60); RDW 17.3 % (11.5-14.5); WBC 9.31 X 10*3/uL (4.50-10.00)
[2021-02-22 12:54] LABS: African American GFR (CKD) 80.2 (60.0-200.0); Anion Gap 9.9 mmol/L (4.00-12.00); BUN/Creat Ratio 18.89 Ratio (12.00-20.00); Blood Urea Nitrogen 20.4 mg/dL (9.0-27.0); Calcium 8.5 mg/dL (8.7-10.3); Carbon Dioxide 21.4 mmol/L (21.6-31.8); Magnesium 1.4 mg/dL (1.5-2.4); Non-African American GFR(CKD) 69.2 (60.0-200.0); Potassium 3.9 mmol/L (3.5-5.5)
[2021-02-22] MEDS ORDERED: Magnesium Replacement Protocol 1 EACH MISC MISCELLANE PRN (13:06)
[2021-02-22] MEDS: MAGNESIUM SULFATE-D5W PMX 1 GM in DEXTROSE/WATER 1 100ML.BAG IVPB SCH ×3 (14:23→17:09)
[2021-02-22] MEDS: HYDROmorphone 0.5 MG/0.5 ML SYRINGE IVP PRN ×2 (17:09→22:58)
[2021-02-22 19:46] VITALS: RESP 16
[2021-02-22] MEDS ORDERED: DOXAZOSIN 2 MG TAB PO SCH (21:00)
[2021-02-22] MEDS: METOPROLOL TARTRATE 12.5 MG TAB PO SCH (21:28)
[2021-02-23] MEDS: HYDROmorphone 0.5 MG/0.5 ML SYRINGE IVP PRN (04:57)
[2021-02-23] MEDS: HEPARIN SODIUM,PORCINE/PF 5,000 UNIT/0.5 ML SYRINGE SQ SCH (08:54)
[2021-02-23] MEDS: amLODIPine 10 MG TAB PO SCH (08:54)
[2021-02-23] MEDS: predniSONE 10 MG TAB PO SCH (08:54)
[2021-02-23] MEDS: allopurinoL 100 MG TAB PO SCH (08:54)
[2021-02-23] MEDS: PANTOPRAZOLE 40 MG TABLET PO SCH (08:54)
[2021-02-23] MEDS: METOPROLOL TARTRATE 12.5 MG TAB PO SCH (08:54)
[2021-02-23] MEDS: CYCLOBENZAPRINE 10 MG TAB PO SCH (08:54)
[2021-02-23 09:11] VITALS: BP 160/78; PULSE 50; TEMP 97.8
[2021-02-23] MEDS: SODIUM CHLORIDE 0.9% 1,000 ML IV SCH (09:14)
== END 2021-02-23 09:45 | disposition home or self-care (01) | DRG 386 ==
LOC: EC 01:57 → 4SSUR 06:55 → OBSVTOIN 02-21 10:12
PROVIDERS: ADMIT Family Medicine; ATTEND Family Medicine
DX: K50.90 Crohn's disease, unspecified, without complications (principal); F11.20 Opioid dependence, uncomplicated; I47.1 Supraventricular tachycardia; Z16.24 Resistance to multiple antibiotics; E86.0 Dehydration; Z20.822 Contact with and (suspected) exposure to COVID-19; F41.9 Anxiety disorder, unspecified; I10 Essential (primary) hypertension; I48.91 Unspecified atrial fibrillation; Z90.3 Acquired absence of stomach [part of]; Z87.442 Personal history of urinary calculi; Z82.3 Family history of stroke; Z79.899 Other long term (current) drug therapy; K21.9 Gastro-esophageal reflux disease without esophagitis; G43.909 Migraine, unspecified, not intractable, without status migrainosus; M10.9 Gout, unspecified; M06.9 Rheumatoid arthritis, unspecified; K58.9 Irritable bowel syndrome, unspecified; N20.0 Calculus of kidney; D64.9 Anemia, unspecified; G62.9 Polyneuropathy, unspecified; L40.9 Psoriasis, unspecified; M19.90 Unspecified osteoarthritis, unspecified site
CPT/HCPCS: 36415; 74018; 74176; 80048; 80053; 81003; 82150; 83605; 83690; 83735; 85025; 85027; 85652; 86140; 87635; 96361; 96372; 96374; 96375; 99285

== ENCOUNTER 2021-06-11 01:39 | Emergency (ER) | payer BC, MEDICARE ==
[2021-06-11] MEDS ORDERED: MORPHINE SULFATE 4 MG/ML SYRINGE IV STA (03:56)
[2021-06-11] MEDS ORDERED: ONDANSETRON 4 MG/2 ML VIAL IVP STA (03:56)
[2021-06-11 04:07] LABS: Basophils % (A) 0 %; Eosinophils # (A) 0.3 k/uL (0-0.7); Eosinophils % (A) 2 %; HCT 34.9 % (39.0-53.0); HGB 10.8 gm/dL (13.0-17.5); Hypochromasia Moderate; Lymphocytes # (A) 2.4 k/uL (1.0-4.8); Lymphocytes % (A) 20 %; MCH 30.6 pg (25.0-35.0); MCHC 30.8 g/dL (31.0-37.0); MCV 99.3 fL (80.0-100.0); Macrocytosis Slight; Mean Platelet Volume 7.4; Monocytes # (A) 0.6 k/uL (0-1.0); Monocytes % (A) 5 %; Neutrophils # (A) 8.5 k/uL (1.3-7.7); Neutrophils % (A) 71 %; Platelet Count 217 k/uL (150-450); RBC 3.52 m/uL (4.30-5.90); WBC 11.9 k/uL (3.8-10.6)
[2021-06-11 04:19] LABS: Albumin 4.2 g/dL (3.5-5.0); Calcium 9.8 mg/dL (8.4-10.2); Potassium 4.2 mmol/L (3.5-5.1); Total Bilirubin 0.8 mg/dL (0.2-1.3); Total Protein 8.3 g/dL (6.3-8.2)
[2021-06-11 04:20] LABS: C Reactive Protein 0.6 mg/dL (<1.0)
--- NOTE | 2021-06-11 04:59 | XR ---
EXAMINATION TYPE: XR KUB DATE OF EXAM: 06/11/2021 COMPARISON: NONE HISTORY: Abdominal pain TECHNIQUE: 2 views upright FINDINGS: There is no sign of intestinal obstruction or pneumoperitoneum. Fecal pattern is fairly nor mal. There are numerous clips from cholecystectomy. Lung bases are clear. IMPRESSION: Nonacute abdomen. No adverse change.
[2021-06-11 05:29] LABS: Appearance,Urine Clear (Clear); Bilirubin,Urine Negative (Negative); Blood,Urine Negative (Negative); Color,Urine Yellow; Glucose,Urine (UA) Negative (Negative); Ketones,Urine Negative (Negative); Leukocyte Esterase,Urine Negative (Negative); Nitrite,Urine Negative (Negative); PH, Urine 5.5 (5.0-8.0); Protein,Urine Negative (Negative); Specific Gravity,Urine 1.019 (1.001-1.035); Urobilinogen,Urine <2.0 mg/dL (<2.0)
[2021-06-11] MEDS ORDERED: HYDROmorphone 1 MG/ML 1 ML SYRINGE IVP STA (06:09)
--- NOTE | 2021-06-11 06:50 | CT ---
EXAMINATION TYPE: CT abdomen pelvis wo con DATE OF EXAM: 06/11/2021 COMPARISON: 02/20/2021 HISTORY: Abdominal pain, Hx of crohns disease CT DLP: 501.4 mGycm Automated exposure control for dose reduction was used. Images obtained from the diaphragm to the floor the pelvis with no contrast. FINDINGS: The lung bases are clear. There is no pleural effusion. Heart size is fairly normal. There is no balbir cardial effusion. There are clips at the gastroesophageal junction. There are clips from cholecystectomy. Liver shows n o focal defect. There are multiple small calcified splenic granulomata. There is no evidence of pancr eatic mass. There is no adrenal mass. There are numerous bilateral renal calculi measuring up to 8 mm. There is n o hydronephrosis. There are surgical clips at the right colon. Bladder distends smoothly. There are m ultiple mildly distended loops of fluid-filled small bowel in the mid abdomen. Small bowel measures u p to 2.9 cm. There is no ascites. There is no free air. There is no evidence of mesenteric edema. The re is retained fecal material in the large bowel. The lumbar vertebra show normal alignment. Disc spaces are fairly normal. There is no compression fra cture. Bony pelvis is intact. The hip joints are intact. IMPRESSION: There is evidence of some constipation. Previous surgery at the cecum. Distended small bowel could re late to ileus or partial mechanical obstruction. Multiple nonobstructing renal calculi. Small bowel distention is new compared to old exam.
--- NOTE | 2021-06-11 07:38 | ED ---
Abdominal Pain HPI - General Chief Complaint: Abdominal Pain Stated Complaint: Abdominal Pain Time Seen by Provider: 06/11/21 03:49 Source: patient Mode of arrival: ambulatory Limitations: no limitations - History of Present Illness Initial Comments: 's patient is 71-year-old man who presents to be evaluated for left-sided abdominal pain that is been going on for the past one perhaps up to 2 days. He states that it does remind him of previous Crohn's flareup. Patient has not had fever or chills. No change in bowel movements. He has had some nausea. No change in urination. No fever or chills MD Complaint: abdominal pain Onset/Timin -: days(s) Location: LUQ, LLQ Radiation: none Migration to: no migration Severity: moderate Quality: cramping, sharp Consistency: constant Improves With: nothing Worsens With: nothing Associated Symptoms: nausea - Related Data Home Medications Medication Instructions Recorded Confirmed Orphenadrine Citrate [Orphenadrine 100 mg PO BID 12/08/17 02/20/21 Citrate ER] Adalimumab [Humira Pen] 40 mg SQ Q14D 04/25/18 02/20/21 Febuxostat [Uloric] 80 mg PO DAILY 05/05/18 02/20/21 Buprenorphine HCl/Naloxone HCl 1 film SL DAILY@1600 12/12/18 02/20/21 [Suboxone 2 mg-0.5 mg Sl Film] amLODIPine [Norvasc] 10 mg PO DAILY 10/18/20 02/20/21 Pantoprazole [Protonix] 40 mg PO DAILY 02/20/21 02/20/21 Previous Rx's Medication Instructions Recorded Doxazosin [Cardura] 2 mg PO HS #30 tab 02/23/21 Metoprolol Tartrate [Lopressor] 12.5 mg PO BID #60 tab 02/23/21 Pantoprazole [Protonix] 40 mg PO AC-BRKFST tab 02/23/21 hydrALAZINE HCL [Apresoline] 25 mg PO TID #9 tab 02/23/21 predniSONE 30 mg PO DAILY #45 tab 02/23/21 Allergies Allergy/AdvReac Type Severity Reaction Status Date / Time Iodinated Contrast Media Allergy Anaphylaxis Verified 06/11/21 01:43 [Iodinated Contrast Media - IV Dye] Review of Systems ROS Statement: Those systems with pertinent positive or pertinent negative responses have been documented in the HPI. ROS Other: All systems not noted in ROS Statement are negative. Constitutional: Denies: fever, chills Respiratory: Denies: cough, dyspnea Cardiovascular: Denies: chest pain, palpitations, edema Gastrointestinal: Reports: abdominal pain, nausea. Denies: vomiting, diarrhea, constipation, melena, hematochezia Genitourinary: Denies: dysuria, hematuria, testicular pain Musculoskeletal: Denies: back pain Skin: Denies: rash Neurological: Denies: headache, weakness, numbness Past Medical History Past Medical History: Atrial Fibrillation, GERD/Reflux, Hypertension, Rheumatoid Arthritis (RA), Skin Disorder, Supraventricular Tachycardia (SVT) Additional Past Medical History / Comment(s): hx CROHN'S (takes tresa), IBS, chronic diarrhea, migraines-, hx ulcers, anemia, gout, kidney stones, psoriasis, bilateral tinnitis., pinched sciatic nerve, C-Diff 2017, neuropathy History of Any Multi-Drug Resistant Organisms: C-DIFF Date of last positivie culture/infection: stool MDRO Source:: 2017 Past Surgical History: Bowel Resection, Cardiac Ablation, Cholecystectomy, Heart Catheterization, Hernia Repair, Orthopedic Surgery, Tonsillectomy Additional Past Surgical History / Comment(s): 1/3 of stomach removed (partial gastrectomy), ulcers, bowel resections, fecal transplant 2017, bilateral knee arthroscopic surgery, EGD/colonoscopies, R inguinal hernia repair, bilat cataract removal, Past Anesthesia/Blood Transfusion Reactions: Blood Transfusion Reaction, Motion Sickness Additional Past Anesthesia/Blood Transfusion Reaction / Comment(s): BLOOD TRANSFUSION- BROKE OUT IN HIVES age 21 Past Psychological History: Anxiety Smoking Status: Never smoker Past Alcohol Use History: Occasional Past Drug Use History: None Reported - Past Family History Mother Family Medical History: Pulmonary Embolus Additional Family Medical History / Comment(s): AGE 73-DE, STROKE DURING CARATID PROCEDURE General Exam Limitations: no limitations General appearance: alert, in no apparent distress Head exam: Present: atraumatic, normocephalic Eye exam: Present: normal appearance. Absent: scleral icterus, conjunctival injection Neck exam: Present: normal inspection Respiratory exam: Present: normal lung sounds bilaterally. Absent: respiratory distress, wheezes, rales, rhonchi, stridor Cardiovascular Exam: Present: regular rate, normal rhythm, normal heart sounds. Absent: systolic murmur, diastolic murmur, rubs, gallop GI/Abdominal exam: Present: soft, tenderness (There is mild left sided abdominal tenderness with no rebound or guarding). Absent: distended, guarding, rebound, rigid, mass, pulsatile mass, hernia Extremities exam: Present: normal inspection, normal capillary refill. Absent: pedal edema, calf tenderness Back exam: Present: normal inspection. Absent: CVA tenderness (R), CVA tenderness (L) Neurological exam: Present: alert Skin exam: Present: warm, dry, intact, normal color. Absent: rash Course Vital Signs 06/11/21 06/11/21 06/11/21 01:40 05:07 06:00 Temperature 98.1 F 97.9 F Pulse Rate 107 H 98 79 Respiratory 20 24 22 Rate Blood Pressure 164/87 156/86 173/86 O2 Sat by Pulse 99 97 99 Oximetry 06/11/21 08:21 Temperature 98 F Pulse Rate 68 Respiratory 18 Rate Blood Pressure 162/76 O2 Sat by Pulse 97 Oximetry Medical Decision Making - Medical Decision Making Shouldn't is 71-year-old man here with left-sided abdominal pain that he feels has some symptoms reminiscent of his Crohn's disease. There is no evidence of Crohn's flare on the CT or in the labs. There may be an element of constipation. The patient has had relief of symptoms following analgesia here. We discussed the appropriate follow-up and further care as well as return parameters. - Lab Data Result diagrams: 06/11/21 03:53 06/11/21 03:53 Lab Results 06/11/21 06/11/21 06/11/21 Range/Units 03:53 03:53 03:53 WBC 11.9 H (3.8-10.6) k/uL RBC 3.52 L (4.30-5.90) m/uL Hgb 10.8 L (13.0-17.5) gm/dL Hct 34.9 L (39.0-53.0) % MCV 99.3 (80.0-100.0) fL MCH 30.6 (25.0-35.0) pg MCHC 30.8 L (31.0-37.0) g/dL RDW 15.0 (11.5-15.5) % Plt Count 217 (150-450) k/uL MPV 7.4 Neutrophils % 71 % Lymphocytes % 20 % Monocytes % 5 % Eosinophils % 2 % Basophils % 0 % Neutrophils # 8.5 H (1.3-7.7) k/uL Lymphocytes # 2.4 (1.0-4.8) k/uL Monocytes # 0.6 (0-1.0) k/uL Eosinophils # 0.3 (0-0.7) k/uL Basophils # 0.0 (0-0.2) k/uL Hypochromasia Moderate Macrocytosis Slight Sodium 138 (137-145) mmol/L Potassium 4.2 (3.5-5.1) mmol/L Chloride 111 H (98-107) mmol/L Carbon Dioxide 15 L (22-30) mmol/L Anion Gap 12 mmol/L BUN 26 H (9-20) mg/dL Creatinine 1.36 H (0.66-1.25) mg/dL Est GFR (CKD-EPI)AfAm 60 (>60 ml/min/1.73 sqM) Est GFR (CKD-EPI)NonAf 52 (>60 ml/min/1.73 sqM) Glucose 121 H (74-99) mg/dL Calcium 9.8 (8.4-10.2) mg/dL Total Bilirubin 0.8 (0.2-1.3) mg/dL AST 36 (17-59) U/L ALT 19 (4-49) U/L Alkaline Phosphatase 55 (38-126) U/L C-Reactive Protein 0.6 (<1.0) mg/dL Total Protein 8.3 H (6.3-8.2) g/dL Albumin 4.2 (3.5-5.0) g/dL Amylase 196 H (30-110) U/L Lipase 60 (23-300) U/L Urine Color Yellow Urine Appearance Clear (Clear) Urine pH 5.5 (5.0-8.0) Ur Specific [place] 1.019 (1.001-1.035) Urine Protein Negative (Negative) Urine Glucose (UA) Negative (Negative) Urine Ketones Negative (Negative) Urine Blood Negative (Negative) Urine Nitrite Negative (Negative) Urine Bilirubin Negative (Negative) Urine Urobilinogen <2.0 (<2.0) mg/dL Ur Leukocyte Esterase Negative (Negative) Disposition Clinical Impression: Abdominal pain Disposition: HOME SELF-CARE Condition: Good Instructions (If sedation given, give patient instructions): Abdominal Pain (ED) Is patient prescribed a controlled substance at d/c from ED?: No Referrals: Minh Saldaña MD [Primary Care Provider] - 1-2 days
[2021-06-11] MEDS ORDERED: NA PHOS,M-B/NA PHOS,DI-BA 133 ML ENEMA RECTAL STA (07:40)
[2021-06-11 08:22] VITALS: BP 162/76; PULSE 68; RESP 18; TEMP 98
== END 2021-06-11 08:21 | disposition home or self-care (01) ==
LOC: EC 01:39
DX: R10.12 Left upper quadrant pain (principal); R10.32 Left lower quadrant pain; I48.91 Unspecified atrial fibrillation; K21.9 Gastro-esophageal reflux disease without esophagitis; I10 Essential (primary) hypertension; M06.9 Rheumatoid arthritis, unspecified; F41.9 Anxiety disorder, unspecified; Z87.442 Personal history of urinary calculi; Z90.49 Acquired absence of other specified parts of digestive tract
CPT/HCPCS: 99284; 96374; 96375 ×2; 36415; 80053; 82150; 83690; 85025; 86140; 81003; 74018; 74176; J2270; J2405; J1170

== ENCOUNTER → 2021-06-30 | Outpatient (CLI) | payer BC, MEDICARE ==
--- NOTE | 2021-06-30 14:53 | US ---
EXAMINATION TYPE: US venous doppler duplex LE LT DATE OF EXAM: 06/30/2021 12:07 PM COMPARISON: None CLINICAL HISTORY: 71-year-old male I80.9 PHLEBITIS. Pain. No hx of DVT. Patient takes aspirin. Hx sci atica, osteoarthritis, hx knee surgery osteochondral repair. SIDE PERFORMED: Left TECHNIQUE: The lower extremity deep venous system is examined utilizing real time linear array sonog [id number] with graded compression, doppler sonography and color-flow sonography. FINDINGS: VESSELS IMAGED: Common Femoral Vein Deep Femoral Vein Greater Saphenous Vein * Femoral Vein Popliteal Vein Small Saphenous Vein * Proximal Calf Veins Posterior tibial veins (* superficial vessels) Left Leg: No evidence of DVT in veins imaged at this time. Complex area seen medial/posterior knee: 3.5 x 2.9 x 0.7 cm. IMPRESSION 1. No evidence for DVT within the left lower extremity. 2. Small complex Clancy's cyst measuring 3.5 cm.
== END | disposition home or self-care (01) ==
LOC: RADUSWWP 11:32
PROVIDERS: ATTEND Orthopaedic Surgery
DX: M71.22 Synovial cyst of popliteal space [Baker], left knee (principal)

== ENCOUNTER 2021-10-14 01:03 | Inpatient (IN) | payer BC, MEDICARE ==
[2021-10-14 04:41] LABS: Basophils % (A) 1 %; Eosinophils # (A) 0.2 k/uL (0-0.7); Eosinophils % (A) 4 %; HCT 32.7 % (39.0-53.0); HGB 10.2 gm/dL (13.0-17.5); Hypochromasia Slight; Lymphocytes # (A) 1.6 k/uL (1.0-4.8); Lymphocytes % (A) 30 %; MCH 29.7 pg (25.0-35.0); MCHC 31.2 g/dL (31.0-37.0); MCV 95.2 fL (80.0-100.0); Mean Platelet Volume 7.1; Monocytes # (A) 0.3 k/uL (0-1.0); Monocytes % (A) 6 %; Neutrophils # (A) 2.9 k/uL (1.3-7.7); Neutrophils % (A) 55 %; Platelet Count 202 k/uL (150-450); RBC 3.43 m/uL (4.30-5.90); RDW 15.8 % (11.5-15.5); WBC 5.3 k/uL (3.8-10.6)
[2021-10-14 04:48] LABS: Appearance,Urine Clear (Clear); Bilirubin,Urine Negative (Negative); Blood,Urine Negative (Negative); Color,Urine Yellow; Glucose,Urine (UA) Negative (Negative); Ketones,Urine Negative (Negative); Leukocyte Esterase,Urine Negative (Negative); Nitrite,Urine Negative (Negative); PH, Urine 5.5 (5.0-8.0); Protein,Urine Negative (Negative); Specific Gravity,Urine 1.013 (1.001-1.035); Urobilinogen,Urine <2.0 mg/dL (<2.0)
[2021-10-14] MEDS ORDERED: MORPHINE SULFATE 4 MG/ML SYRINGE IVP STA (04:56)
[2021-10-14] MEDS ORDERED: ONDANSETRON 4 MG/2 ML VIAL IVP STA (04:56)
[2021-10-14] MEDS ORDERED: SODIUM CHLORIDE 0.9% 1,000 ML IV STA (04:56)
[2021-10-14 04:59] LABS: Albumin 3.5 g/dL (3.5-5.0); Calcium 8.8 mg/dL (8.4-10.2); Potassium 4.5 mmol/L (3.5-5.1); Total Bilirubin 0.4 mg/dL (0.2-1.3)
--- NOTE | 2021-10-14 05:14 | ED ---
Abdominal Pain HPI - General Chief Complaint: Abdominal Pain Stated Complaint: Abdominal Pain Time Seen by Provider: 10/14/21 04:55 Source: patient, RN notes reviewed, old records reviewed Mode of arrival: ambulatory Limitations: no limitations - History of Present Illness Initial Comments: This is a 71-year-old male to the ER today. Patient presents today for evaluation regards to abdominal pain severe pain with nausea vomiting and history of Crohns. No travel history no sick contacts. Patient is well-known to this facility for similar type of complaints. Patient states he is irritable months happens to be He gets this issue. No prior history of any significant surgeries. Patient denying any fevers. MD Complaint: abdominal pain -: days(s) Location: diffuse, periumbilical Radiation: epigastric, suprapubic Migration to: epigastric, suprapubic Severity: moderate Severity scale (1-10): 7 Quality: fullness, sharp Consistency: intermittent Improves With: nothing Worsens With: nothing Context: sick contacts Associated Symptoms: nausea, vomiting Treatments Prior to Arrival: other (none) - Related Data Home Medications Medication Instructions Recorded Confirmed Orphenadrine Citrate [Orphenadrine 100 mg PO BID 12/08/17 10/14/21 Citrate ER] Adalimumab [Humira Pen] 40 mg SQ Q14D 04/25/18 10/14/21 Febuxostat [Uloric] 80 mg PO DAILY 05/05/18 10/14/21 Buprenorphine HCl/Naloxone HCl 1 film SL DAILY 12/12/18 10/14/21 [Suboxone 2 mg-0.5 mg Sl Film] amLODIPine [Norvasc] 10 mg PO DAILY 10/18/20 10/14/21 Pantoprazole [Protonix] 40 mg PO DAILY 02/20/21 10/14/21 Allergies Allergy/AdvReac Type Severity Reaction Status Date / Time Iodinated Contrast Media Allergy Anaphylaxis Verified 10/14/21 09:11 [Iodinated Contrast Media - IV Dye] Review of Systems ROS Statement: Those systems with pertinent positive or pertinent negative responses have been documented in the HPI. ROS Other: All systems not noted in ROS Statement are negative. Past Medical History Past Medical History: Atrial Fibrillation, GERD/Reflux, Hypertension, Rheumatoid Arthritis (RA), Skin Disorder, Supraventricular Tachycardia (SVT) Additional Past Medical History / Comment(s): hx CROHN'S (takes tresa), IBS, chronic diarrhea, migraines-, hx ulcers, anemia, gout, kidney stones, psori asis, bilateral tinnitis., pinched sciatic nerve, C-Diff 2017, neuropathy History of Any Multi-Drug Resistant Organisms: C-DIFF Date of last positivie culture/infection: stool MDRO Source:: 2017 Past Surgical History: Bowel Resection, Cardiac Ablation, Cholecystectomy, Heart Catheterization, Hernia Repair, Orthopedic Surgery, Tonsillectomy Additional Past Surgical History / Comment(s): 1/3 of stomach removed (partial gastrectomy), ulcers, bowel resections, fecal transplant 2017, bilateral knee arthroscopic surgery, EGD/colonoscopies, R inguinal hernia repair, bilat ca taract removal, Past Anesthesia/Blood Transfusion Reactions: Blood Transfusion Reaction, Motion Sickness Additional Past Anesthesia/Blood Transfusion Reaction / Comment(s): BLOOD TRANSFUSION- BROKE OUT IN HIVES age 21 Past Psychological History: Anxiety Smoking Status: Never smoker Past Alcohol Use History: Occasional Past Drug Use History: None Reported - Past Family History Mother Family Medical History: Pulmonary Embolus Additional Family Medical History / Comment(s): AGE 73-[place], STROKE DURING CARATID PROCEDURE General Exam Limitations: no limitations General appearance: alert, in no apparent distress Head exam: Present: atraumatic, normocephalic, normal inspection Eye exam: Present: normal appearance, PERRL, EOMI. Absent: scleral icterus, conjunctival injection, periorbital swelling ENT exam: Present: normal exam, mucous membranes moist Neck exam: Present: normal inspection. Absent: tenderness, meningismus, lymphadenopathy Respiratory exam: Present: normal lung sounds bilaterally. Absent: respiratory distress, wheezes, rales, rhonchi, stridor Cardiovascular Exam: Present: regular rate, normal rhythm, normal heart sounds. Absent: systolic murmur, diastolic murmur, rubs, gallop, clicks GI/Abdominal exam: Present: soft, normal bowel sounds. Absent: distended, tenderness, guarding, rebound, rigid Extremities exam: Present: normal inspection, full ROM, normal capillary refill. Absent: tenderness, pedal edema, joint swelling, calf tenderness Back exam: Present: normal inspection Neurological exam: Present: alert, oriented X3, CN II-XII intact Psychiatric exam: Present: normal affect, normal mood Skin exam: Present: warm, dry, intact, normal color. Absent: rash Course Vital Signs 10/14/21 10/14/21 10/14/21 01:30 08:39 17:00 Temperature 98.3 F 97 F L 97.8 F Pulse Rate 84 63 73 Pulse Rate [ Pulse Oximetery ] Respiratory 18 18 18 Rate Blood Pressure 155/84 175/85 183/98 Blood Pressure [Right Arm] O2 Sat by Pulse 98 98 97 Oximetry 10/14/21 10/14/21 19:33 20:00 Temperature 97.6 F 97.9 F Pulse Rate 65 Pulse Rate [ 57 L Pulse Oximetery ] Respiratory 18 16 Rate Blood Pressure 154/75 Blood Pressure 160/78 [Right Arm] O2 Sat by Pulse 97 96 Oximetry - Reevaluation(s) Reevaluation #1: 10/14/21 medical record is reviewed Reevaluation #2: 10/14/21 patient currently does not feel well showing no improving here in the emergency department Reevaluation #3: 10/14/21 Patient informed of results and questions have been answered Reevaluation #4: 10/14/21 Patient still requesting pain medication - Consultations Consultation #1: Spoke with Dr. Saldaña who agrees to admit this patient Medical Decision Making - Medical Decision Making 71 male to the emergency department for evaluation. Patient presents today for evaluation of abdominal pain severe likely secondary to his Crohn's disease persistent nausea vomiting and increasing pain. Patient be admitted for symptom management - Lab Data Result diagrams: 10/14/21 04:21 10/14/21 04:21 Lab Results 10/14/21 10/14/21 10/14/21 Range/Units 04:21 04:21 04:21 WBC 5.3 (3.8-10.6) k/uL RBC 3.43 L (4.30-5.90) m/uL Hgb 10.2 L (13.0-17.5) gm/dL Hct 32.7 L (39.0-53.0) % MCV 95.2 (80.0-100.0) fL MCH 29.7 (25.0-35.0) pg MCHC 31.2 (31.0-37.0) g/dL RDW 15.8 H (11.5-15.5) % Plt Count 202 (150-450) k/uL MPV 7.1 Neutrophils % 55 % Lymphocytes % 30 % Monocytes % 6 % Eosinophils % 4 % Basophils % 1 % Neutrophils # 2.9 (1.3-7.7) k/uL Lymphocytes # 1.6 (1.0-4.8) k/uL Monocytes # 0.3 (0-1.0) k/uL Eosinophils # 0.2 (0-0.7) k/uL Basophils # 0.0 (0-0.2) k/uL Hypochromasia Slight Sodium 137 (137-145) mmol/L Potassium 4.5 (3.5-5.1) mmol/L Chloride 113 H (98-107) mmol/L Carbon Dioxide 18 L (22-30) mmol/L Anion Gap 6 mmol/L BUN 30 H (9-20) mg/dL Creatinine 1.23 (0.66-1.25) mg/dL Est GFR (CKD-EPI)AfAm 68 (>60 ml/min/1.73 sqM) Est GFR (CKD-EPI)NonAf 59 (>60 ml/min/1.73 sqM) Glucose 105 H (74-99) mg/dL Calcium 8.8 (8.4-10.2) mg/dL Phosphorus (2.5-4.5) mg/dL Magnesium (1.6-2.3) mg/dL Total Bilirubin 0.4 (0.2-1.3) mg/dL AST 27 (17-59) U/L ALT 15 (4-49) U/L Alkaline Phosphatase 53 (38-126) U/L Total Protein 7.0 (6.3-8.2) g/dL Albumin 3.5 (3.5-5.0) g/dL Amylase 113 H (30-110) U/L Lipase 29 (23-300) U/L Urine Color Yellow Urine Appearance Clear (Clear) Urine pH 5.5 (5.0-8.0) Ur Specific [place] 1.013 (1.001-1.035) Urine Protein Negative (Negative) Urine Glucose (UA) Negative (Negative) Urine Ketones Negative (Negative) Urine Blood Negative (Negative) Urine Nitrite Negative (Negative) Urine Bilirubin Negative (Negative) Urine Urobilinogen <2.0 (<2.0) mg/dL Ur Leukocyte Esterase Negative (Negative) 10/14/21 Range/Units 04:21 WBC (3.8-10.6) k/uL RBC (4.30-5.90) m/uL Hgb (13.0-17.5) gm/dL Hct (39.0-53.0) % MCV (80.0-100.0) fL MCH (25.0-35.0) pg MCHC (31.0-37.0) g/dL RDW (11.5-15.5) % Plt Count (150-450) k/uL MPV Neutrophils % % Lymphocytes % % Monocytes % % Eosinophils % % Basophils % % Neutrophils # (1.3-7.7) k/uL Lymphocytes # (1.0-4.8) k/uL Monocytes # (0-1.0) k/uL Eosinophils # (0-0.7) k/uL Basophils # (0-0.2) k/uL Hypochromasia Sodium (137-145) mmol/L Potassium (3.5-5.1) mmol/L Chloride (98-107) mmol/L Carbon Dioxide (22-30) mmol/L Anion Gap mmol/L BUN (9-20) mg/dL Creatinine (0.66-1.25) mg/dL Est GFR (CKD-EPI)AfAm (>60 ml/min/1.73 sqM) Est GFR (CKD-EPI)NonAf (>60 ml/min/1.73 sqM) Glucose (74-99) mg/dL Calcium (8.4-10.2) mg/dL Phosphorus 3.4 (2.5-4.5) mg/dL Magnesium 1.6 (1.6-2.3) mg/dL Total Bilirubin (0.2-1.3) mg/dL AST (17-59) U/L ALT (4-49) U/L Alkaline Phosphatase (38-126) U/L Total Protein (6.3-8.2) g/dL Albumin (3.5-5.0) g/dL Amylase (30-110) U/L Lipase (23-300) U/L Urine Color Urine Appearance (Clear) Urine pH (5.0-8.0) Ur Specific [place] (1.001-1.035) Urine Protein (Negative) Urine Glucose (UA) (Negative) Urine Ketones (Negative) Urine Blood (Negative) Urine Nitrite (Negative) Urine Bilirubin (Negative) Urine Urobilinogen (<2.0) mg/dL Ur Leukocyte Esterase (Negative) Disposition Clinical Impression: Crohns disease, Nausea, Nausea and vomiting, Crohn's colitis Disposition: ADMITTED IP TO THIS HOSP Condition: Fair Is patient prescribed a controlled substance at d/c from ED?: No Time of Disposition: 05:50
[2021-10-14 05:33] LABS: Magnesium 1.6 mg/dL (1.6-2.3); Phosphorus 3.4 mg/dL (2.5-4.5)
[2021-10-14] MEDS ORDERED: NALOXONE 0.4 MG/ML 1 ML VIAL IV PRN (05:50)
[2021-10-14] MEDS ORDERED: MORPHINE SULFATE 4 MG/ML SYRINGE IV PRN (05:50)
[2021-10-14] MEDS ORDERED: PROCHLORPERAZINE INJ 10 MG/2 ML VIAL IVP PRN (08:37)
--- NOTE | 2021-10-14 08:41 | P.HPIM ---
History of Present Illness Chief Complaint: Bloating with abdominal pain This is a history and physical on a 71-year-old white male with known history of hypertension Crohn's colitis who is having history of worsening nausea and vomiting with an imminent and bloating. He states he feels weak and has been losing weight. He has history of Crohn's in the past and underlying history of gout with rheumatoid arthritis. He states is having difficulty tolerating diet and having appropriate bowel movements intermittently. Constipation and diarrh ea are waxing and waning depending on the situation but there is no provocative or palliative consistency. Review of Systems Constitutional: Reports fatigue Ears, nose, mouth and throat: Denies headache, Denies sore throat Cardiovascular: Denies chest pain, Denies shortness of breath Respiratory: Denies cough Gastrointestinal: Reports abdominal pain, Reports constipation, Reports diarrhea, Reports nausea, Reports vomiting Musculoskeletal: Denies myalgias Integumentary: Denies pruritus, Denies rash Neurological: Denies numbness, Denies weakness Past Medical History Past Medical History: Atrial Fibrillation, GERD/Reflux, Hypertension, Rheumatoid Arthritis (RA), Skin Disorder, Supraventricular Tachycardia (SVT) Additional Past Medical History / Comment(s): hx CROHN'S (takes tresa), IBS, chronic diarrhea, migraines-, hx ulcers, anemia, gout, kidney stones, psoriasis, bilateral tinnitis., pinched sciatic nerve, C-Diff 2017, neuropathy History of Any Multi-Drug Resistant Organisms: C-DIFF Date of last positivie culture/infection: stool MDRO Source:: 2017 Past Surgical History: Bowel Resection, Cardiac Ablation, Cholecystectomy, Heart Catheterization, Hernia Repair, Orthopedic Surgery, Tonsillectomy Additional Past Surgical History / Comment(s): 1/3 of stomach removed (partial gastrectomy), ulcers, bowel resections, fecal transplant 2017, bilateral knee arthroscopic surgery, EGD/colonoscopies, R inguinal hernia repair, bilat cataract removal, Past Anesthesia/Blood Transfusion Reactions: Blood Transfusion Reaction, Motion Sickness Additional Past Anesthesia/Blood Transfusion Reaction / Comment(s): BLOOD TRANSFUSION- BROKE OUT IN [place] age 21 Past Psychological History: Anxiety Smoking Status: Never smoker Past Alcohol Use History: Occasional Past Drug Use History: None Reported - Past Family History Mother Family Medical History: Pulmonary Embolus Additional Family Medical History / Comment(s): AGE 73-[place], STROKE DURING CARATID PROCEDURE Medications and Allergies Home Medications Medication Instructions Recorded Confirmed Type Orphenadrine Citrate [Orphenadrine 100 mg PO BID 12/08/17 08/18/21 History Citrate ER] Adalimumab [Humira Pen] 40 mg SQ Q14D 04/25/18 08/18/21 History Febuxostat [Uloric] 80 mg PO DAILY 05/05/18 08/18/21 History Buprenorphine HCl/Naloxone HCl 1 film SL DAILY 12/12/18 08/18/21 History [Suboxone 2 mg-0.5 mg Sl Film] amLODIPine [Norvasc] 10 mg PO DAILY 10/18/20 08/18/21 History Pantoprazole [Protonix] 40 mg PO DAILY 02/20/21 08/18/21 History predniSONE [Deltasone] 40 mg PO DAILY #30 tab 08/20/21 Rx Allergies Allergy/AdvReac Type Severity Reaction Status Date / Time Iodinated Contrast Media Allergy Anaphylaxis Verified 10/14/21 01:33 [Iodinated Contrast Media - IV Dye] Physical Exam Vitals: Vital Signs Temp Pulse Resp BP Pulse Ox 10/14/21 01:30 98.3 F 84 18 155/84 98 Intake and Output 10/13/21 10/14/21 10/14/21 22:59 06:59 14:59 Other: Weight 63.503 kg - Constitutional General appearance: no acute distress - EENT Eyes: EOMI - Neck Neck: no lymphadenopathy - Respiratory Respiratory: bilateral: CTA - Cardiovascular Rhythm: regular Heart sounds: normal: S1, S2 Abnormal Heart Sounds: no S3 Gallop - Gastrointestinal General gastrointestinal: soft, no tenderness - Integumentary Integumentary: no cellulitis - Neurologic Neurologic: CNII-XII intact Results CBC & Chem 7: 10/14/21 04:21 10/14/21 04:21 Labs: Abnormal Lab Results - Last 24 Hours (Table) 10/14/21 10/14/21 Range/Units 04:21 04:21 RBC 3.43 L (4.30-5.90) m/uL Hgb 10.2 L (13.0-17.5) gm/dL Hct 32.7 L (39.0-53.0) % RDW 15.8 H (11.5-15.5) % Chloride 113 H (98-107) mmol/L Carbon Dioxide 18 L (22-30) mmol/L BUN 30 H (9-20) mg/dL Glucose 105 H (74-99) mg/dL Amylase 113 H (30-110) U/L Assessment and Plan (1) Crohn's colitis Current Visit: Yes Status: Acute Code(s): K50.10 - CROHN'S DISEASE OF LARGE INTESTINE WITHOUT COMPLICATIONS SNOMED Code(s): 35545252 (2) Nausea and vomiting Current Visit: Yes Status: Acute Code(s): R11.2 - NAUSEA WITH VOMITING, UNSPECIFIED SNOMED Code(s): 82523822 (3) Diarrhea Current Visit: No Status: Acute Code(s): R19.7 - DIARRHEA, UNSPECIFIED SNOMED Code(s): 84916560 (4) Opiate dependence Current Visit: No Status: Acute Code(s): F11.20 - OPIOID DEPENDENCE, UNCOMPLICATED SNOMED Code(s): 46580697 (5) Gout Current Visit: No Status: Chronic Code(s): M10.9 - GOUT, UNSPECIFIED SNOMED Code(s): 88875589 (6) Rheumatoid arthritis Current Visit: No Status: Chronic Code(s): M06.9 - RHEUMATOID ARTHRITIS, UNSPECIFIED SNOMED Code(s): 31552908 Plan: Continue medications. Advance diet. Low-dose SoluMedrol. GI consult if possible. Check CBC and CMP in a.m.
[2021-10-14] MEDS: PANTOPRAZOLE 40 MG/10 ML VIAL IV SCH (08:52)
[2021-10-14] MEDS: amLODIPine 10 MG TAB PO SCH (08:53)
[2021-10-14] MEDS: methylPREDNISolone SOD SUCCI 40 MG/ML 1 ML VIAL IV SCH ×2 (08:54→16:58)
[2021-10-14] MEDS: allopurinoL 100 MG TAB PO SCH (08:54)
[2021-10-14] MEDS ORDERED: NON FORMULARY DRUG (Buprenorphine Hcl/Naloxone Hcl [Suboxone 2 Mg-0.5 Mg Sl Film] 1 EACH F SUBLINGUAL SCH (09:00)
[2021-10-14] MEDS ORDERED: PANTOPRAZOLE 40 MG TABLET PO SCH (09:00)
[2021-10-14] MEDS: SODIUM CHLORIDE 0.9% 1,000 ML IV SCH (09:20)
[2021-10-14] MEDS: ONDANSETRON 4 MG/2 ML VIAL IVP PRN (14:51)
[2021-10-14] MEDS: [UNRECOGNIZED DRUG - OTHER] SUBLINGUAL SCH (16:58)
[2021-10-14] MEDS: BUPRENORPHINE HCL SUBLINGUAL SCH (16:58)
[2021-10-14] MEDS: NALOXONE HCL SUBLINGUAL SCH (16:58)
[2021-10-15] MEDS: methylPREDNISolone SOD SUCCI 40 MG/ML 1 ML VIAL IV SCH ×4 (00:16→23:51)
[2021-10-15] MEDS: ONDANSETRON 4 MG/2 ML VIAL IVP PRN ×3 (00:16→23:51)
[2021-10-15] MEDS: SODIUM CHLORIDE 0.9% 1,000 ML IV SCH ×2 (00:20→10:20)
[2021-10-15] MEDS ORDERED: ACETAMINOPHEN TAB 325 MG TAB PO PRN (05:37)
--- NOTE | 2021-10-15 08:19 | P.PN ---
Subjective Progress Note Date: 10/15/21 Principal diagnosis: The patient is here essentially for Crohn's flare and nausea or vomiting. The patient is tolerating diet but has minimal increased appetite. He seems more bl oated today. Excessive flatus stated by the patient Nausea is improving. Blood pressure stable. Laboratory is nominal Objective - Vital Signs Vital signs: Vital Signs Temp 97.6 F 10/15/21 07:00 Pulse 63 10/15/21 07:00 Resp 16 10/15/21 07:00 BP 148/70 10/15/21 07:00 Pulse Ox 98 10/15/21 07:00 FiO2 Intake & Output 10/14/21 10/15/21 10/15/21 18:59 06:59 18:59 Intake Total 75 Output Total 1400 Balance -1400 75 Intake: Intake, IV Titration 75 Amount Sodium Chloride 0.9% 1, 75 000 ml @ 75 mls/hr IV . [id number] [id number] Rx#:[id number] Output: Urine 1400 Other: # Voids 2 - Constitutional General appearance: Present: thin - EENT Eyes: Absent: abnormal pupil - Neck Neck: Absent: lymphadenopathy - Respiratory Respiratory: bilateral: CTA - Cardiovascular Rhythm: regular Heart sounds: normal: S1, S2 Abnormal Heart Sounds: Absent: S3 Gallop - Gastrointestinal General gastrointestinal: Present: distended, tenderness - Psychiatric Psychiatric: Present: A&O x's 3 - Labs CBC & Chem 7: 10/14/21 04:21 10/14/21 04:21 Assessment and Plan (1) Crohn's colitis Current Visit: Yes Status: Acute Code(s): K50.10 - CROHN'S DISEASE OF LARGE INTESTINE WITHOUT COMPLICATIONS SNOMED Code(s): 92921785 (2) Nausea and vomiting Current Visit: Yes Status: Acute Code(s): R11.2 - NAUSEA WITH VOMITING, UNSPECIFIED SNOMED Code(s): 00546869 (3) Diarrhea Current Visit: No Status: Acute Code(s): R19.7 - DIARRHEA, UNSPECIFIED SNOMED Code(s): 00281645 (4) Opiate dependence Current Visit: No Status: Acute Code(s): F11.20 - OPIOID DEPENDENCE, UNCOMPLICATED SNOMED Code(s): 09386641 (5) Gout Current Visit: No Status: Chronic Code(s): M10.9 - GOUT, UNSPECIFIED SNOMED Code(s): 84860415 (6) Rheumatoid arthritis Current Visit: No Status: Chronic Code(s): M06.9 - RHEUMATOID ARTHRITIS, UNSPECIFIED SNOMED Code(s): 36334177 Plan: Continue medications. Advance diet. Low-dose SoluMedrol. GI consult if possible. Check CBC and CMP in a.m.
[2021-10-15] MEDS: allopurinoL 100 MG TAB PO SCH (08:24)
[2021-10-15] MEDS: amLODIPine 10 MG TAB PO SCH (08:25)
[2021-10-15] MEDS: PANTOPRAZOLE 40 MG/10 ML VIAL IV SCH (08:25)
[2021-10-15 09:10] LABS: African American GFR (CKD) 99.2 (60.0-200.0); Albumin 3.8 g/dL (3.8-4.9); Albumin/Globulin Ratio 1.09 (1.60-3.17); BUN/Creat Ratio 21.89 Ratio (12.00-20.00); Blood Urea Nitrogen 19.7 mg/dL (9.0-27.0); Calcium 8.8 mg/dL (8.7-10.3); Globulin 3.5 g/dL (1.6-3.3); Non-African American GFR(CKD) 85.6 (60.0-200.0); Potassium 4.5 mmol/L (3.5-5.5); Total Bilirubin 0.4 mg/dL (0.30-1.20); Total Protein 7.3 g/dL (6.2-8.2)
[2021-10-15 09:28] LABS: HCT 30.6 % (39.6-50.0); HGB 9.2 g/dL (13.0-17.0); MCH 28.5 pg (27.0-32.0); MCHC 30.1 g/dL (32.0-37.0); MCV 94.7 fL (80.0-97.0); Mean Platelet Volume 10.2 fL (9.5-12.2); NRBC Per 100 WBC 0 /100 WBCS (0.0-0.0); Platelet Count 159 X 10*3/uL (140-440); RBC 3.23 X 10*6/uL (4.40-5.60); RDW 15.4 % (11.5-14.5); WBC 6.64 X 10*3/uL (4.50-10.00)
[2021-10-15] MEDS: [UNRECOGNIZED DRUG - OTHER] SUBLINGUAL SCH (10:20)
[2021-10-15] MEDS: NALOXONE HCL SUBLINGUAL SCH (10:20)
[2021-10-15] MEDS: BUPRENORPHINE HCL SUBLINGUAL SCH (10:20)
[2021-10-15 16:21] LABS: Glucose,Whole Blood 189 mg/dL (70-110)
[2021-10-15] MEDS: INSULIN ASPART (NovoLOG) 100 UNIT/ML VIAL SQ SCH ×2 (17:08→21:12)
[2021-10-15] MEDS: BISOPROLOL-HCTZ 5-6.25 MG 1 EACH TAB PO SCH (18:09)
[2021-10-15 21:02] LABS: Glucose,Whole Blood 213 mg/dL (70-110)
[2021-10-16] MEDS: SODIUM CHLORIDE 0.9% 1,000 ML IV SCH (06:49)
[2021-10-16 07:00] LABS: Glucose,Whole Blood 140 mg/dL (70-110)
[2021-10-16] MEDS ORDERED: PANTOPRAZOLE 40 MG TABLET PO SCH (07:30)
[2021-10-16 07:31] VITALS: BP 171/71; PULSE 57; RESP 18; TEMP 97.4
[2021-10-16] MEDS: INSULIN ASPART (NovoLOG) 100 UNIT/ML VIAL SQ SCH (08:06)
[2021-10-16] MEDS: allopurinoL 100 MG TAB PO SCH (08:06)
[2021-10-16] MEDS: BISOPROLOL-HCTZ 5-6.25 MG 1 EACH TAB PO SCH (08:06)
[2021-10-16] MEDS: amLODIPine 10 MG TAB PO SCH (08:06)
--- NOTE | 2021-10-16 08:19 | P.DS ---
Providers Date of admission: 10/14/21 10:14 Attending physician: Minh Saldaña Consults: 10/14/21 08:41 Consult Physician Routine Consulting Provider: Laura Yancey Consult Reason/Comments: Colitis Do you want consulting provider notified?: Yes Primary care physician: Minh Saldaña - Discharge Diagnosis(es) (1) Crohn's colitis Current Visit: Yes Status: Acute (2) Nausea and vomiting Current Visit: Yes Status: Acute (3) Diarrhea Current Visit: No Status: Acute (4) Opiate dependence Current Visit: No Status: Acute (5) Gout Current Visit: No Status: Chronic (6) Rheumatoid arthritis Current Visit: No Status: Chronic Hospital Course: The patient was admitted for Crohn's colitis flareup with significant nausea and vomiting. He developed some hypertensive urgency and this was treated with appropriate medication. He is placed on methylprednisone started tolerating diet and his bloating and abdominal pain decreased. There was no further nausea after the next 24 hours. The patient is discharged in stable condition follow- up in about 5-7 days Patient Condition at Discharge: Fair Plan - Discharge Summary Discharge Rx Participant: Yes New Discharge Prescriptions: New RX: Pantoprazole [Protonix] 40 mg PO AC-BRKFST #30 tab RX: predniSONE [Deltasone] 40 mg PO DIRECTED #30 tab RX: Bisoprolol-Hctz 5-6.25 mg [Ziac 5-6.25 MG] 1 each PO DAILY #30 tab Continue RX: Orphenadrine Citrate [Orphenadrine Citrate ER] 100 mg PO BID RX: Adalimumab [Humira Pen] 40 mg SQ Q14D RX: Febuxostat [Uloric] 80 mg PO DAILY RX: Buprenorphine HCl/Naloxone HCl [Suboxone 2 mg-0.5 mg Sl Film] 1 film SL DAILY RX: amLODIPine [Norvasc] 10 mg PO DAILY RX: Pantoprazole [Protonix] 40 mg PO DAILY Discharge Medication List RX: Orphenadrine Citrate [Orphenadrine Citrate ER] 100 mg PO BID 12/08/17 [History] RX: Adalimumab [Humira Pen] 40 mg SQ Q14D 04/25/18 [History] RX: Febuxostat [Uloric] 80 mg PO DAILY 05/05/18 [History] RX: Buprenorphine HCl/Naloxone HCl [Suboxone 2 mg-0.5 mg Sl Film] 1 film SL DAILY 12/12/18 [History] RX: amLODIPine [Norvasc] 10 mg PO DAILY 10/18/20 [History] RX: Pantoprazole [Protonix] 40 mg PO DAILY 02/20/21 [History] RX: Bisoprolol-Hctz 5-6.25 mg [Ziac 5-6.25 MG] 1 each PO DAILY #30 tab 10/16/21 [Rx] RX: Pantoprazole [Protonix] 40 mg PO AC-BRKFST #30 tab 10/16/21 [Rx] RX: predniSONE [Deltasone] 40 mg PO DIRECTED #30 tab 10/16/21 [Rx] Follow up Appointment(s)/Referral(s): Minh Saldaña MD [Primary Care Provider] - 1-2 days
[2021-10-16] MEDS: methylPREDNISolone SOD SUCCI 40 MG/ML 1 ML VIAL IV SCH (08:42)
[2021-10-16] MEDS: [UNRECOGNIZED DRUG - OTHER] SUBLINGUAL SCH (08:43)
[2021-10-16] MEDS: BUPRENORPHINE HCL SUBLINGUAL SCH (08:43)
[2021-10-16] MEDS: NALOXONE HCL SUBLINGUAL SCH (08:43)
[2021-10-16 08:48] LABS: HCT 29.5 % (39.6-50.0); HGB 8.7 g/dL (13.0-17.0); MCHC 29.5 g/dL (32.0-37.0); MCV 94.9 fL (80.0-97.0); Mean Platelet Volume 10.8 fL (9.5-12.2); NRBC Per 100 WBC 0 /100 WBCS (0.0-0.0); Platelet Count 162 X 10*3/uL (140-440); RBC 3.11 X 10*6/uL (4.40-5.60); RDW 15.6 % (11.5-14.5); WBC 10.75 X 10*3/uL (4.50-10.00)
[2021-10-16 11:55] LABS: African American GFR (CKD) 91.5 (60.0-200.0); Albumin 3.3 g/dL (3.8-4.9); Albumin/Globulin Ratio 1.09 (1.60-3.17); Anion Gap 9.7 mmol/L (10.00-18.00); BUN/Creat Ratio 21.18 Ratio (12.00-20.00); Blood Urea Nitrogen 20.4 mg/dL (9.0-27.0); Calcium 8.5 mg/dL (8.7-10.3); Carbon Dioxide 20.4 mmol/L (20.0-27.5); Non-African American GFR(CKD) 78.9 (60.0-200.0); Potassium 4.1 mmol/L (3.5-5.5); Total Bilirubin 0.3 mg/dL (0.30-1.20); Total Protein 6.3 g/dL (6.2-8.2)
== END 2021-10-16 11:31 | disposition home or self-care (01) | DRG 386 ==
LOC: EC 01:03 → 6NMEDSUR 05:50 → OBSVTOIN 10:14 → 4SSUR 11:34
PROVIDERS: ADMIT Family Medicine; ATTEND Family Medicine
DX: K50.10 Crohn's disease of large intestine without complications (principal); F11.20 Opioid dependence, uncomplicated; I10 Essential (primary) hypertension; I16.0 Hypertensive urgency; M10.9 Gout, unspecified; M06.9 Rheumatoid arthritis, unspecified; I48.91 Unspecified atrial fibrillation; F41.9 Anxiety disorder, unspecified; L40.9 Psoriasis, unspecified; G62.9 Polyneuropathy, unspecified; K21.9 Gastro-esophageal reflux disease without esophagitis; Z79.01 Long term (current) use of anticoagulants; Z79.899 Other long term (current) drug therapy; Z87.11 Personal history of peptic ulcer disease; Z87.442 Personal history of urinary calculi; Z86.19 Personal history of other infectious and parasitic diseases; Z90.49 Acquired absence of other specified parts of digestive tract; Z98.890 Other specified postprocedural states; Z90.3 Acquired absence of stomach [part of]; Z91.041 Radiographic dye allergy status
CPT/HCPCS: 36415; 80053; 81003; 82150; 83605; 83690; 83735; 84100; 85025; 85027; 96361; 96374; 96375; 96376; 99285

== ENCOUNTER 2021-11-03 06:30 | Day surgery (SDC) | payer BC, MEDICARE ==
[2021-11-02 10:33] VITALS: BMI 17.9
[~2021-11-03 06:30] MED LIST changes: -LIDOCAINE 1% (10MG/ML) FOR IV START INTRADERMA ONE; -LIDOCAINE 1% INJ 10MG/ML (20 ML MDV) ONE; -PROPOFOL 10 MG/ML 50 ML VIAL IV ONE
[2021-11-03 07:14] VITALS: TEMP 97.6
[2021-11-03 07:16] LABS: Glucose,Whole Blood 98 mg/dL (70-110)
[2021-11-03] MEDS ORDERED: LIDOCAINE 2% INJ 20 MG/ML (2 ML VIAL) ONE (07:31)
[2021-11-03] MEDS ORDERED: PROPOFOL 10 MG/ML 20 ML VIAL IV ONE (07:31)
--- NOTE | 2021-11-03 08:05 | P.PCN ---
Date of Procedure: 11/03/21 Procedure(s) Performed: Brief history: Patient is a pleasant 71-year-old white male with long-standing history of Crohn's disease status post small bowel surgeries in the past, currently maintained on Humira every 2 weeks is scheduled scheduled for an elective upper endoscopy as well as colonoscopy as a part of evaluation of abdominal pain, progressive weight loss of 30 pounds in the last 6 months duration. He also has diarrhea with 5-6 loose watery bowel movements daily. Procedure performed: Esophagogastroduodenoscopy with biopsy Colonoscopy with random biopsies Preoperative diagnosis: Abdominal pain/progressive weight loss of 30 pounds in the last 6 months duration History of Crohn's disease Anesthesia: MAC Procedure: After informed consent was obtained from the patient was brought into the endoscopy unit and IV sedation was administered by anesthesia under continuous monitoring. Initially upper endoscopy was done. The Olympus GF 160 video endoscope was inserted inserted into the mouth and esophagus intubated without any difficulty and was gradually advanced into the stomach. There was evidence of previous Billroth II anastomosis. There was a small anastomotic ulcer noted which was biopsied. The afferent and efferent loops appeared normal. Biopsies were done from the duodenum. The scope was then withdrawn to the stomach adequately insufflated with air was mild gastritis noted. The body and cardia of the stomach appeared normal.. The scope was then withdrawn into the esophagus. The GE junction was located at 40 cm to the incisors. It appeared regular with no erythema erosions or ulcerations. Rest of the esophagus appeared normal. Patient tolerated the procedure well. At this time the patient continued to remain sedation. Initial digital rectal examination was normal. Olympus CF 160 video colonoscope was then inserted into the rectum and gradually advanced to the right colon without any difficulty. Careful examination was performed as the scope was gradually being withdrawn. The prep was poor. The anastomosis in the right colon appeared normal. There was widely patent. Distal ileum was intubated and appeared normal. Mucosa of the ascending colon, transverse colon, descending colon, sigmoid colon and rectum appeared normal. Random biopsies were done from the transverse colon and descending colon. Retroflexion was performed in the rectum and no lesions were noted. Patient tolerated the procedure well. Impression: 1. Upper endoscopy revealed a 5 mm anastomotic ulcer with a Billroth II anastomosis and mild gastritis 2. Colonoscopy was within normal limits upto the ileocolic anastomosis in the right colon with no evidence of active Crohn's disease. Recommendations: Findings of this examination were discussed with the patient as well as his family. He was advised to follow with the biopsy results. He'll be seen in office in 2 weeks. In the meantime he will be scheduled for CT of abdomen and pelvis to investigate for progressive weight loss.
[2021-11-03 08:38] VITALS: BP 166/76; PULSE 49; RESP 16
== END 2021-11-03 08:48 | disposition home or self-care (01) ==
LOC: ORWHC2ENDO 06:30
PROVIDERS: ATTEND Internal Medicine Gastroenterology
DX: K28.9 Gastrojejunal ulcer, unspecified as acute or chronic, without hemorrhage or perforation (principal); K29.70 Gastritis, unspecified, without bleeding; K29.80 Duodenitis without bleeding; K52.9 Noninfective gastroenteritis and colitis, unspecified; Z87.19 Personal history of other diseases of the digestive system; R63.4 Abnormal weight loss; Z68.1 Body mass index [BMI] 19.9 or less, adult; I48.91 Unspecified atrial fibrillation; E11.9 Type 2 diabetes mellitus without complications; M06.9 Rheumatoid arthritis, unspecified; Z79.891 Long term (current) use of opiate analgesic; Z91.041 Radiographic dye allergy status; Z79.899 Other long term (current) drug therapy
CPT/HCPCS: 88305; 45380; 43239; J2704; J2001

== ENCOUNTER → 2021-11-19 | Outpatient (CLI) | payer BC, MEDICARE ==
--- NOTE | 2021-11-19 11:17 | MR ---
MR pancreas with and without contrast HISTORY: Abnormal weight loss Multiplanar multisequence and postcontrast images obtained through the abdomen following 8 cc Gadavis t IV Correlation to CT scan dated 06/11/2021 and multiple prior older CTs Lung bases show no effusion. Heart is borderline enlarged. There is postop change present, possible prior distal gastrectomy, small bowel loop courses from the gastric remnant distally and courses anteriorly and subsequently to the left of the superior mesenter ic artery before coursing back towards the right upper quadrant in what is believed to be a blind-end ing pouch, suspected Billroth II postsurgical change, correlate. There is no evident bowel obstructio n. Patient is post cholecystectomy, metallic clips cause some susceptibility artifact. There is some pro minence of the central biliary ducts likely due to postcholecystectomy change. The adrenal glands are unremarkable. Large cortical cyst is associated with the right kidney. Bilateral nephrolithiasis not as well appreciated on MRI as on CT. Spleen is again enlarged, close to 14 cm in cephalad to caudal dimension. There is a slight spinal curvature, bone marrow signal is maintained. Aorta shows normal c aliber. Inferior mesenteric artery, superior mesenteric artery, celiac axis, renal arteries are paten t. No retroperitoneal adenopathy. Pancreas shows no mass, somewhat atrophic appearance. Too small to characterize T2 bright, probable c ystic foci are present in the level of the tail the pancreas, largest only measures approximately 5 m m, coronal image 21 series 301, questionable clinical significance. No abnormal enhancement following contrast administration. IMPRESSION: Nonspecific findings at the level of the tail the pancreas as described. Splenomegaly and postop changes as described.
== END | disposition home or self-care (01) ==
LOC: RADMRIMAIN 08:43
PROVIDERS: ATTEND Internal Medicine Gastroenterology
DX: R16.1 Splenomegaly, not elsewhere classified (principal); R63.4 Abnormal weight loss
CPT/HCPCS: 74183; A9585

== ENCOUNTER 2022-05-07 20:32 | Emergency (ER) | payer BC, MEDICARE ==
--- NOTE | 2022-05-07 21:02 | ED ---
General Adult HPI - General Chief complaint: Abdominal Pain Stated complaint: abd pain Time Seen by Provider: 05/07/22 20:45 Source: patient, RN notes reviewed Mode of arrival: ambulatory - History of Present Illness Initial comments: 72-year-old male with past medical history of Crohn's disease presents to the emergency department with a chief complaint of abdominal pain x 1 week. He complains of accompanying symptoms of nausea, vomiting, and diarrhea. He has not taken anything for his symptoms. He denies fever, chills, headache, chest pain, palpitations, cough, shortness of breath, melena, hematochezia dysuria, hematuria. He sees Dr. Yancey who manages his Crohn's disease. He does reports unintentional 40lb weightloss over the last 6 months. Patient admits to having bowel resection surgery in the past, admits to appendectomy and cholecystectomy. last BM was today - Related Data Home Medications Medication Instructions Recorded Confirmed Orphenadrine Citrate [Orphenadrine 100 mg PO BID 12/08/17 11/03/21 Citrate ER] Adalimumab [Humira Pen] 40 mg SQ Q14D 04/25/18 11/03/21 Febuxostat [Uloric] 80 mg PO DAILY 05/05/18 11/03/21 Buprenorphine HCl/Naloxone HCl 1 film SL 1600 12/12/18 11/03/21 [Suboxone 2 mg-0.5 mg Sl Film] amLODIPine [Norvasc] 10 mg PO DAILY 10/18/20 11/03/21 Pantoprazole [Protonix] 40 mg PO DAILY 02/20/21 11/03/21 Previous Rx's Medication Instructions Recorded Bisoprolol-Hctz 5-6.25 mg [Ziac 1 each PO DAILY #30 tab 10/16/21 5-6.25 MG] predniSONE [Deltasone] 40 mg PO DIRECTED #30 tab 10/16/21 Allergies Allergy/AdvReac Type Severity Reaction Status Date / Time Iodinated Contrast Media Allergy Anaphylaxis Verified 05/07/22 20:41 [Iodinated Contrast Media - IV Dye] Review of Systems ROS Statement: Those systems with pertinent positive or pertinent negative responses have been documented in the HPI. ROS Other: All systems not noted in ROS Statement are negative. Past Medical History Past Medical History: Atrial Fibrillation, GERD/Reflux, Hypertension, Rheumatoid Arthritis (RA), Skin Disorder, Supraventricular Tachycardia (SVT) Additional Past Medical History / Comment(s): hx CROHN'S (takes tresa), IBS, chronic diarrhea, migraines-, hx ulcers, anemia, gout, kidney stones, psoriasis, bilateral tinnitis., pinched sciatic nerve, C-Diff 2017, neuropathy History of Any Multi-Drug Resistant Organisms: C-DIFF Date of last positivie culture/infection: stool MDRO Source:: 2017 Past Surgical History: Bowel Resection, Cardiac Ablation, Cholecystectomy, Heart Catheterization, Hernia Repair, Orthopedic Surgery, Tonsillectomy Additional Past Surgical History / Comment(s): 1/3 of stomach removed (partial gastrectomy), ulcers, bowel resections, fecal transplant 2017, bilateral knee arthroscopic surgery, EGD/colonoscopies, R inguinal hernia repair, bilat cataract removal, Past Anesthesia/Blood Transfusion Reactions: Blood Transfusion Reaction, Motion Sickness Additional Past Anesthesia/Blood Transfusion Reaction / Comment(s): BLOOD TRANSFUSION- BROKE OUT IN HIVES age 21 Past Psychological History: Anxiety Smoking Status: Never smoker - Past Family History Mother Family Medical History: Pulmonary Embolus Additional Family Medical History / Comment(s): AGE 73-[place], STROKE DURING CARATID PROCEDURE General Exam General appearance: alert, in no apparent distress Head exam: Present: atraumatic, normocephalic, normal inspection Eye exam: Present: normal appearance, PERRL, EOMI. Absent: scleral icterus, conjunctival injection, periorbital swelling ENT exam: Present: normal exam, mucous membranes moist Neck exam: Present: normal inspection. Absent: tenderness, meningismus, lymphadenopathy Respiratory exam: Present: normal lung sounds bilaterally. Absent: respiratory distress, wheezes, rales, rhonchi, stridor Cardiovascular Exam: Present: regular rate, normal rhythm, normal heart sounds. Absent: systolic murmur, diastolic murmur, rubs, gallop, clicks GI/Abdominal exam: Present: soft, tenderness (generalized ), normal bowel sounds, other (abdominal surgical scars that appear well healed ). Absent: distended, guarding, rebound, rigid Extremities exam: Present: normal inspection, full ROM, normal capillary refill. Absent: tenderness, pedal edema, joint swelling, calf tenderness Back exam: Present: normal inspection Neurological exam: Present: alert, oriented X3, CN II-XII intact Psychiatric exam: Present: normal affect, normal mood Skin exam: Present: warm, dry, intact, normal color. Absent: rash Course Vital Signs 05/07/22 05/07/22 05/07/22 20:39 20:50 21:16 Temperature 98.9 F Pulse Rate 87 60 Respiratory 19 20 Rate Blood Pressure 196/73 191/85 179/84 O2 Sat by Pulse 100 100 Oximetry - Reevaluation(s) Reevaluation #1: 05/07/22 22:11 Patient reevaluated. Patient reports no pain improvement status post Toradol. Morphine ordered. Reevaluation #2: 05/07/22 22:20 Patient reevaluated on results. Patient is agreeable with the plan for discharge. EKG Findings - EKG Comments: EKG Findings:: I interpreted the following: EKG performed at 20:59. Rate 61bpm and NSR, CO 269, QRS 126, QT/QTc 446/450 Medical Decision Making - Medical Decision Making Was pt. sent in by a medical professional or institution (, PA, ETL DEVELOPER, urgent care, hospital, or halfway...) When possible be specific @ -[No] Did you speak to anyone other than the patient for history (EMS, parent, family, police, friend...)? What history was obtained from this source @ -[No] Did you review nursing and triage notes (agree or disagree)? Why? @ -[I reviewed and agree with nursing and triage notes] Were old charts reviewed (outside hosp., previous admission, EMS record, old EKG, old radiological studies, urgent care reports/EKG's, halfway records)? Report findings @ -[No old charts were reviewed] Differential Diagnosis (chest pain, altered mental status, abdominal pain women, abdominal pain men, vaginal bleeding, weakness, fever, dyspnea, syncope, he adache, dizziness, GI bleed, back pain, seizure, CVA, palpatations, mental health)? @ -[not applicable] EKG interpreted by me (3pts min.). @ -[As above] X-rays interpreted by me (1pt min.). @ -[None done] CT interpreted by me (1pt min.). @ -reveals rectal wall thickening which is mostly new compared to the old exam and could be nonspecific colitis U/S interpreted by me (1pt. min.). @ -[None done] What testing was considered but not performed or refused? (CT, X-rays, U/S, labs)? Why? @ -[None] What meds were considered but not given or refused? Why? @ -[None] Did you discuss the management of the patient with other professionals (professionals i.e. , HOME, ETL DEVELOPER, lab, RT, psych nurse, social worker palliative care, loan processing supervisor, teacher, mortgage loan officer originator, case management director)? Give summary @ -[No] Was smoking cessation discussed for >3mins.? @ -[No] Was critical care preformed (if so, how long)? @ -[No] Were there social determinants of health that impacted care today? How? (Homelessness, low income, unemployed, alcoholism, drug addiction, transportation, low edu. Level, literacy, decrease access to med. care, halfway, rehab)? @ -[No] Was there de-escalation of care discussed even if they declined (Discuss DNR or withdrawal of care, Hospice)? DNR status @ -[No] What co-morbidities impacted this encounter? (DM, HTN, Smoking, COPD, CAD, Cancer, CVA, ARF, Chemo, Hep., AIDS, mental health diagnosis, sleep apnea, morbid obesity)? @ -[None] Was patient admitted / discharged? Hospital course, mention meds given and route, prescriptions, significant lab abnormalities, going to OR and other pertinent info. @ -72-year-old male presents to the emergency department with abdominal pain. He should had a history and physical performed. Physical exam is essentially unremarkable. Patient was given toradol, zofran, pepcid and morphine with symptomatic relief while in the ED. I discussed the natural history of colitis with the patient patient verbalized understanding and all questions were addressed. Return precautions were discussed. She was encouraged to call MICHELLE Moore on Tuesday for follow-up appointment. Patient was discharged in stable condition. I discussed case with RYLEE Vivas who agrees with plan of care. Undiagnosed new problem with uncertain prognosis? @ -[No] Drug Therapy requiring intensive monitoring for toxicity (Heparin, Nitro, Insulin, Cardizem)? @ -[No] Were any procedures done? @ -[No] Diagnosis/symptom? @ -abdominal pain -Crohn's disease exacerbation -Chronic asymptomatic anemia Acute, or Chronic, or Acute on Chronic? @ -acute on chronic Uncomplicated (without systemic symptoms) or Complicated (systemic symptoms)? @ -uncomplicated Side effects of treatment? @ -[No] Exacerbation, Progression, or Severe Exacerbation? @ -[No] Poses a threat to life or bodily function? How? (Chest pain, [place], [place], pneumonia, PE, COPD, DKA, ARF, appy, cholecystitis, CVA, Diverticulitis, Homicidal, Suicidal, threat to staff... and all critical care pts) @ -low likelihood - Lab Data Result diagrams: 05/07/22 21:05/07/22 21: Lab Results 05/07/22 05/07/22 05/07/22 Range/Units 21: 21: 21: WBC 6.7 (3.8-10.6) k/uL RBC 3.05 L (4.30-5.90) m/uL Hgb 8.0 L (13.0-17.5) gm/dL Hct 26.5 L (39.0-53.0) % MCV 87.1 (80.0-100.0) fL MCH 26.2 (25.0-35.0) pg MCHC 30.1 L (31.0-37.0) g/dL RDW 16.1 H (11.5-15.5) % Plt Count 248 (150-450) k/uL MPV 7.7 Neutrophils % 61 % Lymphocytes % 30 % Monocytes % 4 % Eosinophils % 3 % Basophils % 0 % Neutrophils # 4.0 (1.3-7.7) k/uL Lymphocytes # 2.0 (1.0-4.8) k/uL Monocytes # 0.3 (0-1.0) k/uL Eosinophils # 0.2 (0-0.7) k/uL Basophils # 0.0 (0-0.2) k/uL Hypochromasia Slight Anisocytosis Slight PT 9.9 (9.0-12.0) sec INR 0.9 (<1.2) APTT 22.4 (22.0-30.0) sec Sodium 143 (137-145) mmol/L Potassium 4.7 (3.5-5.1) mmol/L Chloride 119 H (98-107) mmol/L Carbon Dioxide 15 L (22-30) mmol/L Anion Gap 9 mmol/L BUN 24 H (9-20) mg/dL Creatinine 1.14 (0.66-1.25) mg/dL Est GFR (CKD-EPI)AfAm 74 (>60 ml/min/1.73 sqM) Est GFR (CKD-EPI)NonAf 64 (>60 ml/min/1.73 sqM) Glucose 105 H (74-99) mg/dL Calcium 8.7 (8.4-10.2) mg/dL Total Bilirubin 0.4 (0.2-1.3) mg/dL AST 30 (17-59) U/L ALT 22 (4-49) U/L Alkaline Phosphatase 62 (38-126) U/L Total Protein 7.6 (6.3-8.2) g/dL Albumin 3.6 (3.5-5.0) g/dL Amylase 145 H (30-110) U/L Lipase 86 (23-300) U/L Disposition Clinical Impression: Colitis, Crohn's disease Disposition: HOME SELF-CARE Condition: Stable Additional Instructions: These return to the nearest emergency department if symptoms worsen or persist. Is patient prescribed a controlled substance at d/c from ED?: No Referrals: Minh Saldaña MD [Primary Care Provider] - 1-2 days Laura Yancey MD [STAFF PHYSICIAN] - 1-2 days Time of Disposition: 22:24
[2022-05-07 21:09] LABS: Anisocytosis Slight; Basophils % (A) 0 %; Eosinophils # (A) 0.2 k/uL (0-0.7); Eosinophils % (A) 3 %; HCT 26.5 % (39.0-53.0); Hypochromasia Slight; Lymphocytes % (A) 30 %; MCH 26.2 pg (25.0-35.0); MCHC 30.1 g/dL (31.0-37.0); MCV 87.1 fL (80.0-100.0); Mean Platelet Volume 7.7; Monocytes # (A) 0.3 k/uL (0-1.0); Monocytes % (A) 4 %; Neutrophils % (A) 61 %; Platelet Count 248 k/uL (150-450); RBC 3.05 m/uL (4.30-5.90); RDW 16.1 % (11.5-15.5); WBC 6.7 k/uL (3.8-10.6)
--- NOTE | 2022-05-07 21:33 | CT ---
EXAMINATION TYPE: CT abdomen pelvis wo con DATE OF EXAM: 05/07/2022 COMPARISON: 06/11/2021 HISTORY: abdominal pain. hx of chrons CT DLP: 415.1 mGycm Automated exposure control for dose reduction was used. Images obtained from the diaphragm to the floor the pelvis with no contrast. The lung bases are clear of infiltrate. No pleural effusion. Heart size is normal. No pericardial eff usion. There are clips at the gastroesophageal junction. There are clips from cholecystectomy. Liver is intact. Spleen is borderline enlarged and measures 12.5 cm. There are calcified splenic granulomat a. Stomach is intact. No pancreatic mass. The bile ducts are nondilated. There is no adrenal mass. Kidneys have normal size. There are numerous bilateral renal calculi up to 7 mm. No hydronephrosis. Ureters are not dilated. There is previous surgery at the right colon. The b ladder distends smoothly. No inguinal hernia. No free fluid in the pelvis. There is rectal wall thick ening. There is vascular calcification. No evidence of a bowel obstruction. No ascites or free air. The lumbar vertebrae have normal alignment. No compression fracture. Facet joints are intact. Bony pe lvis is intact. The hip joints are intact. IMPRESSION: Borderline splenomegaly. Old granulomatous disease. Numerous nonobstructing bilateral renal calculi. There is some rectal wall thickening which is mostly new compared to the old exam and could be some n onspecific colitis. Previous right colon surgery. No bowel obstruction.
[2022-05-07] MEDS ORDERED: KETOROLAC 15 MG/ML 1 ML VIAL IVP STA (21:34)
[2022-05-07] MEDS ORDERED: FAMOTIDINE 20 MG/2 ML VIAL IV STA (21:34)
[2022-05-07] MEDS ORDERED: ONDANSETRON 4 MG/2 ML VIAL IVP STA (21:34)
[2022-05-07 21:41] LABS: INR 0.9 (<1.2); Partial Thromboplastin Time 22.4 sec (22.0-30.0); Prothrombin Time 9.9 sec (9.0-12.0)
[2022-05-07 22:08] LABS: Albumin 3.6 g/dL (3.5-5.0); Calcium 8.7 mg/dL (8.4-10.2); Potassium 4.7 mmol/L (3.5-5.1); Total Bilirubin 0.4 mg/dL (0.2-1.3); Total Protein 7.6 g/dL (6.3-8.2)
[2022-05-07] MEDS ORDERED: MORPHINE SULFATE 2 MG/ML SYRINGE IVP ONE (22:10)
[2022-05-07 22:31] VITALS: BP 175/80; PULSE 62; RESP 16; TEMP 98.6
== END 2022-05-07 22:31 | disposition home or self-care (01) ==
LOC: EC 20:32
DX: K50.90 Crohn's disease, unspecified, without complications (principal); I10 Essential (primary) hypertension; I48.91 Unspecified atrial fibrillation; K21.9 Gastro-esophageal reflux disease without esophagitis; F41.9 Anxiety disorder, unspecified; Z79.899 Other long term (current) drug therapy; Z88.8 Allergy status to other drugs, medicaments and biological substances
CPT/HCPCS: 36415; 93005; 80053; 82150; 83690; 85025; 85610; 85730; 74176; 99284; 96374; 96375 ×3; J2405; J2270; J1885

== ENCOUNTER 2022-07-12 01:50 | Inpatient (IN) | payer BC, MEDICARE ==
[2022-07-12] MEDS ORDERED: KETOROLAC 15 MG/ML 1 ML VIAL IVP STA (02:37)
[2022-07-12] MEDS ORDERED: SODIUM CHLORIDE 0.9% 1,000 ML IV STA (02:37)
[2022-07-12] MEDS ORDERED: ONDANSETRON 4 MG/2 ML VIAL IVP STA (02:37)
[2022-07-12] MEDS ORDERED: MORPHINE SULFATE 2 MG/ML SYRINGE IVP STA (02:38)
--- NOTE | 2022-07-12 02:43 | ED ---
Abdominal Pain HPI - General Chief Complaint: Abdominal Pain Stated Complaint: abd and back pain Time Seen by Provider: 07/12/22 02:21 Source: patient, RN notes reviewed Mode of arrival: ambulatory Limitations: no limitations - History of Present Illness Initial Comments: This is a 72-year-old male who presents to the emergency department for abdominal pain and weakness. Patient has a substantial gastrointestinal history with Crohn's disease status post bowel resection. Over the last 2 weeks, he has had increasing abdominal pain with radiation into the back. States that this is sharp/stabbing in nature and is located in the mid to lower abdomen. Unsure if this feels similar to a Crohn's flareup. He also reports weight loss and extreme fatigue. States that anytime he tries to stand up, he feels weak and dizzy. He has also spent most of the last 2 weeks sleeping and not wanting to get out of bed. Not taking anything to manage his pain. He has associated nausea/vomiting and diarrhea. States that the diarrhea is chronic secondary to the Crohn's disease. Denies any fevers, chills, sore throat, cough, dyspnea, chest pain, p alpitations, or headaches. MD Complaint: abdominal pain Onset/Timin -: week(s) Location: diffuse Radiation: back Associated Symptoms: nausea, vomiting, diarrhea - Related Data Home Medications Medication Instructions Recorded Confirmed Orphenadrine Citrate [Orphenadrine 100 mg PO BID 12/08/17 11/03/21 Citrate ER] Adalimumab [Humira Pen] 40 mg SQ Q14D 04/25/18 11/03/21 Febuxostat [Uloric] 80 mg PO DAILY 05/05/18 11/03/21 Buprenorphine HCl/Naloxone HCl 1 film SL 1600 12/12/18 11/03/21 [Suboxone 2 mg-0.5 mg Sl Film] amLODIPine [Norvasc] 10 mg PO DAILY 10/18/20 11/03/21 Pantoprazole [Protonix] 40 mg PO DAILY 02/20/21 11/03/21 Previous Rx's Medication Instructions Recorded Bisoprolol-Hctz 5-6.25 mg [Ziac 1 each PO DAILY #30 tab 10/16/21 5-6.25 MG] predniSONE [Deltasone] 40 mg PO DIRECTED #30 tab 10/16/21 Allergies Allergy/AdvReac Type Severity Reaction Status Date / Time Iodinated Contrast Media Allergy Anaphylaxis Verified 07/12/22 02:08 [Iodinated Contrast Media - IV Dye] Review of Systems ROS Statement: Those systems with pertinent positive or pertinent negative responses have been documented in the HPI. ROS Other: All systems not noted in ROS Statement are negative. Past Medical History Past Medical History: Atrial Fibrillation, GERD/Reflux, Hypertension, Rheumatoid Arthritis (RA), Skin Disorder, Supraventricular Tachycardia (SVT) Additional Past Medical History / Comment(s): hx CROHN'S (takes tresa), IBS, chronic diarrhea, migraines-, hx ulcers, anemia, gout, kidney stones, psoriasis, bilateral tinnitis., pinched sciatic nerve, C-Diff 2017, neuropathy History of Any Multi-Drug Resistant Organisms: C-DIFF Date of last positivie culture/infection: stool MDRO Source:: 2017 Past Surgical History: Bowel Resection, Cardiac Ablation, Cholecystectomy, Heart Catheterization, Hernia Repair, Orthopedic Surgery, Tonsillectomy Additional Past Surgical History / Comment(s): 1/3 of stomach removed (partial g astrectomy), ulcers, bowel resections, fecal transplant 2017, bilateral knee arthroscopic surgery, EGD/colonoscopies, R inguinal hernia repair, bilat cataract removal, Past Anesthesia/Blood Transfusion Reactions: Blood Transfusion Reaction, Motion Sickness Additional Past Anesthesia/Blood Transfusion Reaction / Comment(s): BLOOD TRANSFUSION- BROKE OUT IN HIVES age 21 Past Psychological History: Anxiety Smoking Status: Never smoker Past Alcohol Use History: None Reported Past Drug Use History: None Reported - Past Family History Mother Family Medical History: Pulmonary Embolus Additional Family Medical History / Comment(s): AGE 73-[place], STROKE DURING CARATID PROCEDURE General Exam Limitations: no limitations General appearance: alert, in distress Head exam: Present: atraumatic, normocephalic, normal inspection Respiratory exam: Present: normal lung sounds bilaterally. Absent: respiratory distress, wheezes, rales, rhonchi, stridor Cardiovascular Exam: Present: irregular rhythm GI/Abdominal exam: Present: soft, tenderness (mid to lower abdomen), normal bowel sounds. Absent: distended, guarding, rebound, rigid Neurological exam: Present: alert, oriented X3, CN II-XII intact Psychiatric exam: Present: normal affect, normal mood Skin exam: Present: warm, dry, intact, normal color. Absent: rash Course Vital Signs 07/12/22 07/12/22 07/12/22 02:08 03:12 04:00 Temperature 97.5 F L Pulse Rate 71 61 62 Respiratory 18 16 16 Rate Blood Pressure 182/70 176/73 172/73 O2 Sat by Pulse 98 98 100 Oximetry Medical Decision Making - Medical Decision Making This is a 72-year-old male who presents to the emergency department for abdominal pain and weakness. Was pt. sent in by a medical professional or institution? @ -No Did you speak to anyone other than the patient for history? @ -No Did you review nursing and triage notes? @ -Yes, and I agree, it is accurate with regards to the patient's symptoms. Were old charts reviewed? @ -No Differential Diagnosis? @ -Differential Abdominal Pain Men: Appendicitis, cholecystitis, diverticulosis, ischemic bowel, pancreatitis, hepatitis, UTI, gastroenteritis, AAA, incarcerated hernia, bowel obstruction, constipation, inflammatory bowel, hepatitis, peptic ulcer disease, splenic infarction, perforated viscus, testicular torsion, this is not meant to be an all-inclusive list EKG interpreted by me (3pts min.)? @ -Atrial fibrillation. Ventricular rate 67 beats per minute, QRS duration 138 ms, QTC [address] interpreted by me (1pt min.)? @ -Computed tomography scan of the abdomen and pelvis obtained. My interpretation identifies no evidence of a ureteral calculus, free air, or significant bowel wall thickening. What testing was considered but not performed? (CT, X-rays, U/S, labs)? Why? @ -None What meds were considered but not given? Why? @ -None Did you discuss the management of the patient with other professionals? @ -Yes, Nino Blue with [facility] who accepts the patient for admission. Did you reconcile home meds? @ -No Was smoking cessation discussed for >3mins.? @ -No Was critical care preformed (if so, how long)? @ -No Were there social determinants of health that impacted care today? How? (Homelessness, low income, unemployed, alcoholism, drug addiction, transportation, low edu. Level, literacy, decrease access to med. care, nursing home, rehab)? @ -No Was there de-escalation of care discussed even if they declined? (Discuss DNR or withdrawal of care, Hospice)? @ -No What co-morbidities impacted this encounter? (DM, HTN, Smoking, COPD, CAD, Cancer, CVA, Hep., AIDS, mental health diagnosis, sleep apnea, morbid obesity)? @ -GERD, crohn's disease Was patient admitted / discharged? @ -Admitted. Lab work obtained with findings consistent with dehydration. Inflammatory markers negative. Low hemoglobin level is stable when compared with prior values. Computed tomography scan of the abdomen and pelvis reveals no acute findings. There is improvement in rectal wall thickening compared with prior imaging 2 months ago. He initially received IV fluids, Zofran, Toradol, and morphine, with no improvement in pain or nausea. We then tried oral [place] with IV Reglan, and he again had no improvement in symptoms. Discussed with the patient that we do not have any clear causes for his symptoms at this time. Patient states that he is not comfortable going home due to the intractable pain and weakness. He is worried about being able to care for himself and states that his cannot care for him in his current state either. Patient admitted to medicine for weakness and intractable abdominal pain. Undiagnosed new problem with uncertain prognosis? @ -None Drug Therapy requiring intensive monitoring for toxicity (Heparin, Nitro, Insulin, Cardizem)? @ -None Were any procedures done? @ -None Diagnosis/symptom? @ -Intractable abdominal pain, weakness Acute, or Chronic, or Acute on Chronic? @ -Acute Uncomplicated (without systemic symptoms) or Complicated (systemic symptoms)? @ -Complicated Side effects of treatment? @ -None Exacerbation, Progression, or Severe Exacerbation] @ -Not applicable Poses a threat to life or bodily function? @ -Yes This case was discussed in detail with the attending ED physician, Dr. Stout. Presentation, findings, and treatment plan discussed in detail as well. - Lab Data Result diagrams: 07/12/22 02:54 07/12/22 02:54 Lab Results 07/12/22 07/12/22 07/12/22 Range/Units 02:54 02:54 02:54 WBC 7.7 (3.8-10.6) k/uL RBC 3.46 L (4.30-5.90) m/uL Hgb 8.0 L (13.0-17.5) gm/dL Hct 27.7 L (39.0-53.0) % MCV 80.2 D (80.0-100.0) fL MCH 23.2 L (25.0-35.0) pg MCHC 28.9 L (31.0-37.0) g/dL RDW 14.7 (11.5-15.5) % Plt Count 229 (150-450) k/uL MPV 10.0 Neutrophils % 76 % Lymphocytes % 17 % Monocytes % 4 % Eosinophils % 2 % Basophils % 0 % Neutrophils # 5.8 (1.3-7.7) k/uL Lymphocytes # 1.3 (1.0-4.8) k/uL Monocytes # 0.3 (0-1.0) k/uL Eosinophils # 0.1 (0-0.7) k/uL Basophils # 0.0 (0-0.2) k/uL Hypochromasia Marked PT 11.7 (9.0-12.0) sec INR 1.1 (<1.2) APTT 22.9 (22.0-30.0) sec Sodium 138 (137-145) mmol/L Potassium 3.5 (3.5-5.1) mmol/L Chloride 113 H (98-107) mmol/L Carbon Dioxide 15 L (22-30) mmol/L Anion Gap 10 mmol/L BUN 23 H (9-20) mg/dL Creatinine 1.25 (0.66-1.25) mg/dL Est GFR (CKD-EPI)AfAm 67 (>60 ml/min/1.73 sqM) Est GFR (CKD-EPI)NonAf 58 (>60 ml/min/1.73 sqM) Glucose 101 H (74-99) mg/dL Plasma Lactic Acid Kal (0.7-2.0) mmol/L Calcium 8.3 L (8.4-10.2) mg/dL Total Bilirubin 0.3 (0.2-1.3) mg/dL AST 25 (17-59) U/L ALT 20 (4-49) U/L Alkaline Phosphatase 74 (38-126) U/L Troponin I (0.000-0.034) ng/mL C-Reactive Protein <0.5 (<1.0) mg/dL Total Protein 7.1 (6.3-8.2) g/dL Albumin 3.4 L (3.5-5.0) g/dL Amylase 94 (30-110) U/L Lipase 45 (23-300) U/L TSH 1.300 (0.465-4.680) mIU/L Urine Color Urine Appearance (Clear) Urine pH (5.0-8.0) Ur Specific [place] (1.001-1.035) Urine Protein (Negative) Urine Glucose (UA) (Negative) Urine Ketones (Negative) Urine Blood (Negative) Urine Nitrite (Negative) Urine Bilirubin (Negative) Urine Urobilinogen (<2.0) mg/dL Ur Leukocyte Esterase (Negative) 07/12/22 07/12/22 07/12/22 Range/Units 02:54 02:54 03:04 WBC (3.8-10.6) k/uL RBC (4.30-5.90) m/uL Hgb (13.0-17.5) gm/dL Hct (39.0-53.0) % MCV (80.0-100.0) fL MCH (25.0-35.0) pg MCHC (31.0-37.0) g/dL RDW (11.5-15.5) % Plt Count (150-450) k/uL MPV Neutrophils % % Lymphocytes % % Monocytes % % Eosinophils % % Basophils % % Neutrophils # (1.3-7.7) k/uL Lymphocytes # (1.0-4.8) k/uL Monocytes # (0-1.0) k/uL Eosinophils # (0-0.7) k/uL Basophils # (0-0.2) k/uL Hypochromasia PT (9.0-12.0) sec INR (<1.2) APTT (22.0-30.0) sec Sodium (137-145) mmol/L Potassium (3.5-5.1) mmol/L Chloride (98-107) mmol/L Carbon Dioxide (22-30) mmol/L Anion Gap mmol/L BUN (9-20) mg/dL Creatinine (0.66-1.25) mg/dL Est GFR (CKD-EPI)AfAm (>60 ml/min/1.73 sqM) Est GFR (CKD-EPI)NonAf (>60 ml/min/1.73 sqM) Glucose (74-99) mg/dL Plasma Lactic Acid Kal 1.2 (0.7-2.0) mmol/L Calcium (8.4-10.2) mg/dL Total Bilirubin (0.2-1.3) mg/dL AST (17-59) U/L ALT (4-49) U/L Alkaline Phosphatase (38-126) U/L Troponin I 0.014 (0.000-0.034) ng/mL C-Reactive Protein (<1.0) mg/dL Total Protein (6.3-8.2) g/dL Albumin (3.5-5.0) g/dL Amylase (30-110) U/L Lipase (23-300) U/L TSH (0.465-4.680) mIU/L Urine Color Yellow Urine Appearance Clear (Clear) Urine pH 5.5 (5.0-8.0) Ur Specific [place] 1.015 (1.001-1.035) Urine Protein Negative (Negative) Urine Glucose (UA) Negative (Negative) Urine Ketones Negative (Negative) Urine Blood Negative (Negative) Urine Nitrite Negative (Negative) Urine Bilirubin Negative (Negative) Urine Urobilinogen <2.0 (<2.0) mg/dL Ur Leukocyte Esterase Negative (Negative) - Radiology Data Radiology results: report reviewed, image reviewed Disposition Clinical Impression: Weakness, Intractable abdominal pain Disposition: ADMITTED IP TO THIS [facility] Referrals: Minh Saldaña MD [Primary Care Provider] - 1-2 days
[2022-07-12 03:38] LABS: ALT 20 U/L (4-49); AST 25 U/L (17-59); African American GFR (CKD) 67 (>60 ml/min/1.73 sqM); Albumin 3.4 g/dL (3.5-5.0); Alkaline Phosphatase 74 U/L (38-126); Amylase 94 U/L (30-110); Anion Gap 10 mmol/L; Blood Urea Nitrogen 23 mg/dL (9-20); C Reactive Protein <0.5 mg/dL (<1.0); Calcium 8.3 mg/dL (8.4-10.2); Carbon Dioxide 15 mmol/L (22-30); Chloride 113 mmol/L (98-107); Glucose 101 mg/dL (74-99); Lipase 45 U/L (23-300); Non-African American GFR(CKD) 58 (>60 ml/min/1.73 sqM); Potassium 3.5 mmol/L (3.5-5.1); Sodium 138 mmol/L (137-145); Total Bilirubin 0.3 mg/dL (0.2-1.3); Total Protein 7.1 g/dL (6.3-8.2)
[2022-07-12 03:42] LABS: Appearance,Urine Clear (Clear); Bilirubin,Urine Negative (Negative); Blood,Urine Negative (Negative); Color,Urine Yellow; Glucose,Urine (UA) Negative (Negative); Ketones,Urine Negative (Negative); Leukocyte Esterase,Urine Negative (Negative); Nitrite,Urine Negative (Negative); PH, Urine 5.5 (5.0-8.0); Protein,Urine Negative (Negative); Specific Gravity,Urine 1.015 (1.001-1.035); Urobilinogen,Urine <2.0 mg/dL (<2.0)
--- NOTE | 2022-07-12 03:42 | CT ---
EXAMINATION TYPE: CT abdomen pelvis wo con DATE OF EXAM: 07/12/2022 COMPARISON: 05/07/2022 HISTORY: weakness, abd pain, fatigue and weight loss over the past year. [facility] DLP: 404.8 mGycm Automated exposure control for dose reduction was used. Images obtained from the diaphragm to the floor the pelvis with no contrast. Lung bases are clear. No pleural effusion. Heart size is normal. No pericardial effusion. There are calcified granulomata in the spleen. There are clips from cholecystectomy. Liver is intact. The bile ducts are not dilated. No evidence of pancreatic mass. There is atherosclerotic vascular ca lcification. There is no adrenal mass. There are numerous bilateral renal oculi measuring up to 7 mm. No hydroneph rosis. Ureters are not dilated. No retroperitoneal adenopathy. Abdominal aorta is atheromatous. The bladder distends smoothly. No inguinal hernia. No free fluid in the pelvis. No pelvic mass. There are surgical clips at the right colon. The lumbar vertebrae have normal alignment. No compression fracture. Posterior elements are intact. T he bony pelvis is intact. The hip joints are intact. Sacroiliac joints are intact. IMPRESSION: Numerous nonobstructing bilateral renal calculi. 3 cm posterior right renal cortical cyst. Previous right colon surgery. Atherosclerotic vascular disease. Old granulomatous disease. No bowel o bstruction. There is improvement in the rectal wall thickening compared to old exam.
[2022-07-12 03:45] LABS: INR 1.1 (<1.2); Partial Thromboplastin Time 22.9 sec (22.0-30.0); Prothrombin Time 11.7 sec (9.0-12.0)
[2022-07-12 03:52] LABS: Basophils % (A) 0 %; Eosinophils # (A) 0.1 k/uL (0-0.7); Eosinophils % (A) 2 %; HCT 27.7 % (39.0-53.0); Hypochromasia Marked; Lymphocytes # (A) 1.3 k/uL (1.0-4.8); Lymphocytes % (A) 17 %; MCH 23.2 pg (25.0-35.0); MCHC 28.9 g/dL (31.0-37.0); MCV 80.2 fL (80.0-100.0); Monocytes # (A) 0.3 k/uL (0-1.0); Monocytes % (A) 4 %; Neutrophils # (A) 5.8 k/uL (1.3-7.7); Neutrophils % (A) 76 %; Platelet Count 229 k/uL (150-450); RBC 3.46 m/uL (4.30-5.90); RDW 14.7 % (11.5-15.5); WBC 7.7 k/uL (3.8-10.6)
[2022-07-12] MEDS ORDERED: METOCLOPRAMIDE 5 MG/ML 2 ML VIAL IVP STA (04:06)
[2022-07-12] MEDS ORDERED: HYDROcodone/APAP 7.5-325MG 1 EACH TAB PO ONE (04:06)
[2022-07-12] MEDS ORDERED: NALOXONE 0.4 MG/ML 1 ML VIAL IV PRN (04:25)
[2022-07-12] MEDS ORDERED: ACETAMINOPHEN TAB 325 MG TAB PO PRN (04:25)
[2022-07-12] MEDS: SODIUM CHLORIDE 0.9% 1,000 ML IV SCH ×2 (04:33→16:34)
[2022-07-12 05:34] LABS: Erythrocyte Sedimentation Rate 41 mm/hr (0-15)
[2022-07-12] MEDS: HYDROmorphone 0.5 MG/0.5 ML SYRINGE IVP PRN ×6 (06:30→22:40)
--- NOTE | 2022-07-12 09:01 | P.HPIM ---
History of Present Illness H&P Date: 07/12/22 Chief Complaint: Abdominal pain This is a 72-year-old male who presented to the emergency room for abdominal pain and weakness. He does have a significant gastrointestinal history which includes Crohn disease. Patient reports increasing abdominal pain with radiation into the back over the last 2 weeks. He also is reporting weight loss and extreme fatigue. Does report he is eating regularly, but still has weight loss. Other medical history as noted below. Review of Systems Constitutional: Denies chills, Denies fever Cardiovascular: Denies chest pain, Denies dyspnea on exertion Respiratory: Denies cough, Denies dyspnea Gastrointestinal: Reports abdominal pain, Reports nausea Musculoskeletal: Denies arm numbness/tingling, Denies leg numbness/tingling Neurological: Reports weakness, Denies headaches Past Medical History Past Medical History: Atrial Fibrillation, GERD/Reflux, Hypertension, Rheumatoid Arthritis (RA), Skin Disorder, Supraventricular Tachycardia (SVT) Additional Past Medical History / Comment(s): hx CROHN'S (takes tresa), IBS, chronic diarrhea, migraines-, hx ulcers, anemia, gout, kidney stones, psoriasis, bilateral tinnitis., pinched sciatic nerve, C-Diff 2017, neuropathy History of Any Multi-Drug Resistant Organisms: C-DIFF Date of last positivie culture/infection: stool MDRO Source:: 2017 Past Surgical History: Bowel Resection, Cardiac Ablation, Cholecystectomy, Heart Catheterization, Hernia Repair, Orthopedic Surgery, Tonsillectomy Additional Past Surgical History / Comment(s): 1/3 of stomach removed (partial gastrectomy), ulcers, bowel resections, fecal transplant 2017, bilateral knee arthroscopic surgery, EGD/colonoscopies, R inguinal hernia repair, bilat cataract removal, Past Anesthesia/Blood Transfusion Reactions: Blood Transfusion Reaction, Motion Sickness Additional Past Anesthesia/Blood Transfusion Reaction / Comment(s): BLOOD TRANSFUSION- BROKE OUT IN HIVES age 21 Smoking Status: Never smoker - Past Family History Mother Family Medical History: Pulmonary Embolus Additional Family Medical History / Comment(s): AGE 73-[place], STROKE DURING CARATID PROCEDURE Medications and Allergies Home Medications Medication Instructions Recorded Confirmed Type Orphenadrine Citrate [Orphenadrine 100 mg PO BID 12/08/17 07/12/22 History Citrate ER] Febuxostat [Uloric] 80 mg PO DAILY 05/05/18 07/12/22 History amLODIPine [Norvasc] 10 mg PO DAILY 10/18/20 07/12/22 History Gorvnwl-Efwr-Dodw [id number] 2 tab PO DAILY 07/12/22 07/12/22 History [Excedrin] Allergies Allergy/AdvReac Type Severity Reaction Status Date / Time Iodinated Contrast Media Allergy Anaphylaxis Verified 07/12/22 06:46 [Iodinated Contrast Media - IV Dye] Physical Exam Vitals: Vital Signs Temp Pulse Pulse Resp BP BP Pulse Ox 07/12/22 07:55 54 L 16 178/73 100 07/12/22 06:16 97.5 F L 55 L 20 153/62 98 07/12/22 05:00 61 16 143/84 98 07/12/22 04:00 62 16 172/73 100 07/12/22 03:12 61 16 176/73 98 07/12/22 02:08 97.5 F L 71 18 182/70 98 Intake and Output 07/11/22 07/12/22 07/12/22 22:59 06:59 14:59 Other: Weight 61.235 kg - Constitutional General appearance: cooperative, no acute distress - EENT Eyes: EOMI, PERRLA - Neck Neck: no lymphadenopathy, normal ROM, no rigidity - Respiratory Respiratory: bilateral: CTA - Cardiovascular irregular Heart sounds: normal: S1, S2 - Gastrointestinal General gastrointestinal: soft, no tenderness - Integumentary Integumentary: normal, normal turgor - Musculoskeletal Musculoskeletal: generalized weakness - Psychiatric Psychiatric: A&O x's 3, appropriate affect, intact judgment & insight Results CBC & Chem 7: 07/12/22 02:54 07/12/22 02:54 Labs: Abnormal Lab Results - Last 24 Hours (Table) 07/12/22 07/12/22 Range/Units 02:54 02:54 RBC 3.46 L (4.30-5.90) m/uL Hgb 8.0 L (13.0-17.5) gm/dL Hct 27.7 L (39.0-53.0) % MCH 23.2 L (25.0-35.0) pg MCHC 28.9 L (31.0-37.0) g/dL ESR 41 H (0-15) mm/hr Chloride 113 H (98-107) mmol/L Carbon Dioxide 15 L (22-30) mmol/L BUN 23 H (9-20) mg/dL Glucose 101 H (74-99) mg/dL Calcium 8.3 L (8.4-10.2) mg/dL Albumin 3.4 L (3.5-5.0) g/dL Assessment and Plan (1) Intractable abdominal pain Current Visit: Yes Status: Acute Code(s): R10.9 - UNSPECIFIED ABDOMINAL PAIN SNOMED Code(s): 89468402 (2) Weakness Current Visit: Yes Status: Acute Code(s): R53.1 - WEAKNESS SNOMED Code(s): 46214486 (3) Crohns disease Current Visit: No Status: Acute Code(s): K50.90 - CROHN'S DISEASE, UNSPECIFIED, WITHOUT COMPLICATIONS SNOMED Code(s): 33763824 (4) Dehydration Current Visit: No Status: Acute Code(s): E86.0 - DEHYDRATION SNOMED Code(s): 92277441 (5) Nausea Current Visit: No Status: Acute Code(s): R11.0 - NAUSEA SNOMED Code(s): 082065899 (6) Hypertension Current Visit: No Status: Acute Code(s): I10 - ESSENTIAL (PRIMARY) HYPERTENSION SNOMED Code(s): 29280789 (7) History of atrial fibrillation Current Visit: Yes Status: Acute Code(s): Z86.79 - PERSONAL HISTORY OF OTHER DISEASES OF THE CIRCULATORY SYSTEM SNOMED Code(s): 032951009 Plan: Home Medications reconciled. Order stool studies. Consult to GI. Consult dietary Patient seen and evaluated by nurse practitioner, physician in agreement with plan
[2022-07-12] MEDS: allopurinoL 100 MG TAB PO SCH (09:18)
[2022-07-12] MEDS: ASPIRIN-ACET-CAFF 250-250-65MG 1 EACH TAB PO SCH (09:19)
[2022-07-12] MEDS: amLODIPine 10 MG TAB PO SCH (09:19)
[2022-07-12] MEDS: CYCLOBENZAPRINE 10 MG TAB PO SCH ×2 (09:19→19:57)
[2022-07-12 13:31] VITALS: BMI 17.9
[2022-07-12 22:37] LABS: Gliadin AB IgA, Deaminated NEGATIVE (NEGATIVE); Gliadin AB IgA, Unit 0.2 U/mL; Gliadin AB IgG, Deaminated NEGATIVE (NEGATIVE); Gliadin AB IgG, Unit <0.4 U/mL
[2022-07-13] MEDS: SODIUM CHLORIDE 0.9% 1,000 ML IV SCH ×2 (00:57→22:10)
[2022-07-13] MEDS: HYDROmorphone 0.5 MG/0.5 ML SYRINGE IVP PRN ×3 (01:27→06:01)
[2022-07-13] MEDS: KETOROLAC 15 MG/ML 1 ML VIAL IVP PRN ×4 (03:11→22:55)
[2022-07-13] MEDS: ASPIRIN-ACET-CAFF 250-250-65MG 1 EACH TAB PO SCH (08:17)
[2022-07-13] MEDS: amLODIPine 10 MG TAB PO SCH (08:18)
[2022-07-13] MEDS: allopurinoL 100 MG TAB PO SCH (08:18)
[2022-07-13] MEDS: CYCLOBENZAPRINE 10 MG TAB PO SCH ×2 (08:18→19:44)
--- NOTE | 2022-07-13 09:10 | P.PN ---
Subjective Progress Note Date: 07/13/22 Principal diagnosis: Abdominal pain This is a 72-year-old male who presented to the emergency room with complaints of abdominal pain and weakness. He reports increasing abdominal pain and discomfort over the last 2 weeks. He is also reporting weight loss and extreme fatigue.This morning he is seen sitting in bed, continues to have abdominal pain and now is reporting an increase in bloating. He also reports overnight he had multiple episodes of loose stool. Objective - Vital Signs Vital signs: Vital Signs Temp 98.4 F 07/13/22 06:57 Pulse 67 07/13/22 08:14 Resp 16 07/13/22 06:57 BP 178/67 07/13/22 08:14 Pulse Ox 99 07/13/22 06:57 FiO2 Intake & Output 07/12/22 07/13/22 07/13/22 18:59 06:59 18:59 Intake Total 1080 Balance 1080 Weight 63.276 kg Intake: Oral 1080 Other: # Voids 3 2 # Bowel Movements 6 2 - Constitutional General appearance: Present: cooperative, no acute distress - EENT Eyes: Present: EOMI, PERRLA - Neck Neck: Present: normal ROM. Absent: lymphadenopathy, rigidity - Respiratory Respiratory: bilateral: CTA - Cardiovascular Details: irregular Heart sounds: normal: S1, S2 - Gastrointestinal General gastrointestinal: Present: distended, soft, tenderness - Integumentary Integumentary: Present: normal, normal turgor - Musculoskeletal Musculoskeletal: Present: generalized weakness - Psychiatric Psychiatric: Present: A&O x's 3, appropriate affect, intact judgment & insight - Labs CBC & Chem 7: 07/12/22 02:54 07/12/22 02:54 Assessment and Plan (1) Intractable abdominal pain Current Visit: Yes Status: Acute Code(s): R10.9 - UNSPECIFIED ABDOMINAL PAIN SNOMED Code(s): 39992384 (2) Weakness Current Visit: Yes Status: Acute Code(s): R53.1 - WEAKNESS SNOMED Code(s): 13092640 (3) Crohns disease Current Visit: No Status: Acute Code(s): K50.90 - CROHN'S DISEASE, UNSPECIFIED, WITHOUT COMPLICATIONS SNOMED Code(s): 07139098 (4) Dehydration Current Visit: No Status: Acute Code(s): E86.0 - DEHYDRATION SNOMED Code(s): 33395688 (5) Nausea Current Visit: No Status: Acute Code(s): R11.0 - NAUSEA SNOMED Code(s): 580939434 (6) Hypertension Current Visit: No Status: Acute Code(s): I10 - ESSENTIAL (PRIMARY) HYPERTENSION SNOMED Code(s): 54521600 (7) History of atrial fibrillation Current Visit: Yes Status: Acute Code(s): Z86.79 - PERSONAL HISTORY OF OTHER DISEASES OF THE CIRCULATORY SYSTEM SNOMED Code(s): 354132417 Plan: Order Solu-Medrol 40 mg every 8 hours CBC and CMP in the morning. Unable to get GI consult this week. Patient seen and evaluated by nurse practitioner, physician in agreement with plan
[2022-07-13] MEDS: HYDROmorphone 1 MG/ML 1 ML SYRINGE IVP PRN ×5 (09:19→22:55)
[2022-07-13] MEDS: methylPREDNISolone SOD SUCCI 40 MG/ML 1 ML VIAL IV SCH ×2 (09:29→16:28)
[2022-07-13 09:42] LABS: African American GFR (CKD) 77.3 (60.0-200.0); Albumin 3.1 g/dL (3.8-4.9); Anion Gap 6.4 mmol/L (10.00-18.00); BUN/Creat Ratio 15.36 Ratio (12.00-20.00); Blood Urea Nitrogen 16.9 mg/dL (9.0-27.0); Calcium 8.3 mg/dL (8.7-10.3); Carbon Dioxide 17.6 mmol/L (20.0-27.5); Globulin 3.1 g/dL (1.6-3.3); Non-African American GFR(CKD) 66.7 (60.0-200.0); Potassium 4.2 mmol/L (3.5-5.5); Total Bilirubin 0.3 mg/dL (0.30-1.20); Total Protein 6.2 g/dL (6.2-8.2)
[2022-07-13 10:06] LABS: HCT 19.7 % (39.6-50.0); HGB 5.7 g/dL (13.0-17.0); MCH 22.9 pg (27.0-32.0); MCHC 28.9 g/dL (32.0-37.0); MCV 79.1 fL (80.0-97.0); Mean Platelet Volume 11.7 fL (9.5-12.2); NRBC Per 100 WBC 0 /100 WBCS (0.0-0.0); Platelet Count 218 X 10*3/uL (140-440); RBC 2.49 X 10*6/uL (4.40-5.60); RDW 14.5 % (11.5-14.5); WBC 8.35 X 10*3/uL (4.50-10.00)
--- NOTE | 2022-07-13 14:09 | P.GSCN ---
History of Present Illness Consult date: 07/13/22 History of present illness: CHIEF COMPLAINT: Abdominal pain HISTORY OF PRESENT ILLNESS: This is a 72-year-old male who presented to the emergency room with complaint of abdominal pain and weakness. Patient reports that he's been feeling weak over the last couple months. He's been having dizziness, lightheadedness and shortness of breath. He also reports having mul tiple episodes of diarrhea. Complains of lower abdominal cramping. He does have a known history of Crohn's with prior exacerbations and has had a bowel resection for his Crohn's disease. Patient has been on Humira. His last injection was over a week ago. Patient is not sure if he had any blood in his stools. Patient had computed tomography scan abdomen completed after previous right colon surgery. No bowel obstruction. Improvement in the rectal wall thickening compared to old exam. Patient has been started on IV steroids for possible Crohn's exacerbation by medicine service. There is no GI coverage this week. Last EGD and colonoscopy were completed in October 2021 had shown anastomot ic ulcer and gastritis. Colonoscopy was limited and there is no evidence of Crohn's. Abdominal surgical history also includes cholecystectomy, partial gastrectomy due to stomach ulcers and lysis of adhesions. PAST MEDICAL HISTORY: See below PAST SURGICAL HISTORY: See below MEDICATIONS: See below ALLERGIES: See below SOCIAL HISTORY: No illicit drug use. REVIEW OF SYSTEMS: CONSTITUTIONAL: Denies fever or chills. HEENT: Denies blurred vision, vision changes, or eye pain. Denies hemoptysis CARDIOVASCULAR: Denies chest pain or pressure. RESPIRATORY: No shortness of breath. GASTROINTESTINAL: See HPI for pertinent findings HEMATOLOGIC: Denies bleeding disorders. GENITOURINARY: Denies any blood in urine or increased urinary frequency. SKIN: Denies pruitis. Denies rash. PHYSICAL EXAM: VITAL SIGNS: Reviewed GENERAL: Well-developed in no acute distress. HEENT: No sclera icterus. Extraocular movements grossly intact. Moist buccal mucosa. Head is atraumatic, normocephalic. No nasal drainage. ABDOMEN: distended. Diffuse tenderness. NEUROLOGIC: Alert and oriented. Cranial nerves II through XII grossly intact. LABORATORY DATA: WBC is 8.35 Hgb 8.0 down to 5.7 platelets 218 sodium is 137 potassium 4.2 creatinine 1.1 co2 15-17 Urinalysis negative C. diff negative Influenza, RSV and COVID-19 not detected Lactic acid 1.2 LFTs normal CRP less than 0.5 Sed rate elevated at 41 IMAGING: Computed tomography scan abdomen and pelvis numerous nonobstructing bilateral renal calculi. 3 cm posterior right renal cortical cyst. Previous right colon surgery. Atherosclerotic vascular disease. 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 No bowel obstruction. There is improvement in the rectal wall thickening compared to old exam. ASSESSMENT: 1. Abdominal pain with possible Crohn's exacerbation 2. Anemia with history of chronic anemia 3. History of Crohn's disease requiring bowel resection in the past PLAN: -Downgraded diet to clear liquids -Continue IV steroids -Continue IV Fluids -Check stool for occult blood -Agree with blood transfusion -Repeat CBC in a.m. -Monitor for any signs or symptoms of bleeding -Check iron studies -Continue supportive care -Further recommendations forthcoming per surgeon Physician Supervisor Boiler Repair note has been reviewed by physician. Signing provider agrees with the documented findings, assessment, and plan of care. I have personally seen and examined the patient, reviewed the TERMINAL COMPUTER OPERATOR /PAs history, exam and MDM and agree with the assessment and plan as written. Based on total visit time, I have performed more than 50% of the visit. As above: Patient known to our service. Patient came to the hospital primarily with complaints of weakness and weight loss. He says his abdominal discomfort is similar to baseline. He still has frequent loose stools. Remains on Humira for management of his Crohn's disease. Patient states he has lost 50 pounds in the last 1 year. This admission was found have a hemoglobin of 5.7. Denies rectal bleeding or melena. Last endoscopy by GI last October. Await repeat hemoglobin after transfusion. Patient was started on IV steroids for possible exacerbation of Crohn's which is not unreasonable. May resume regular diet from my point of view. One potential etiology for patient's weight loss with history of known Crohn's would be a entero-enteral fistula. Will discuss with radiology the best imaging for that. We'll follow. Past Medical History Past Medical History: Atrial Fibrillation, GERD/Reflux, Hypertension, Rheumatoid Arthritis (RA), Skin Disorder, Supraventricular Tachycardia (SVT) Additional Past Medical History / Comment(s): hx CROHN'S (takes tresa), IBS, chronic diarrhea, migraines-, hx ulcers, anemia, gout, kidney stones, psoriasis, bilateral tinnitis., pinched sciatic nerve, C-Diff 2017, neuropathy History of Any Multi-Drug Resistant Organisms: C-DIFF Year Discovered:: stool MDRO Source:: 2017 Past Surgical History: Bowel Resection, Cardiac Ablation, Cholecystectomy, Heart Catheterization, Hernia Repair, Orthopedic Surgery, Tonsillectomy Additional Past Surgical History / Comment(s): 1/3 of stomach removed (partial gastrectomy), ulcers, bowel resections, fecal transplant 2017, bilateral knee arthroscopic surgery, EGD/colonoscopies, R inguinal hernia repair, bilat cataract removal, Past Anesthesia/Blood Transfusion Reactions: Blood Transfusion Reaction, Motion Sickness Additional Past Anesthesia/Blood Transfusion Reaction / Comm: BLOOD TRANSFUSION- BROKE OUT IN HIVES age 21 Past Psychological History: Anxiety Smoking Status: Never smoker Past Alcohol Use History: None Reported Past Drug Use History: None Reported - Past Family History Mother Family Medical History: Pulmonary Embolus Additional Family Medical History / Comment(s): AGE 73-MO, STROKE DURING CARATID PROCEDURE Medications and Allergies Home Medications Medication Instructions Recorded Confirmed Type Orphenadrine Citrate [Orphenadrine 100 mg PO BID 12/08/17 07/12/22 History Citrate ER] Febuxostat [Uloric] 80 mg PO DAILY 05/05/18 07/12/22 History amLODIPine [Norvasc] 10 mg PO DAILY 10/18/20 07/12/22 History Vuscjfv-Uffa-Qanz [id number] 2 tab PO DAILY 07/12/22 07/12/22 History [Excedrin] Allergies Allergy/AdvReac Type Severity Reaction Status Date / Time Iodinated Contrast Media Allergy Anaphylaxis Verified 07/12/22 06:46 [Iodinated Contrast Media - IV Dye] Surgical - Exam Vital Signs Temp Pulse Resp BP Pulse Ox 97.5 F L 71 18 182/70 98 07/12/22 02:08 07/12/22 02:08 07/12/22 02:08 07/12/22 02:08 07/12/22 02:08 Results - Labs 07/13/22 06:12 07/13/22 06:12 Abnormal Lab Results - Last 24 Hours (Table) 07/13/22 07/13/22 07/13/22 Range/Units 06:12 06:12 11:28 RBC 2.49 L (4.40-5.60) X 10*6/uL Hgb 5.7 L* (13.0-17.0) g/dL Hct 19.7 L* (39.6-50.0) % MCV 79.1 L (80.0-97.0) fL MCH 22.9 L (27.0-32.0) pg MCHC 28.9 L (32.0-37.0) g/dL Chloride 113 H (96-109) mmol/L Carbon Dioxide 17.6 L (20.0-27.5) mmol/L Anion Gap 6.40 L (10.00-18.00) mmol/L Calcium 8.3 L (8.7-10.3) mg/dL Albumin 3.1 L (3.8-4.9) g/dL Albumin/Globulin Ratio 1.00 L (1.60-3.17) g/dL Crossmatch See Detail Diabetes panel 07/13/22 Range/Units 06:12 Sodium 137 (135-145) mmol/L Potassium 4.2 (3.5-5.5) mmol/L Chloride 113 H (96-109) mmol/L Carbon Dioxide 17.6 L (20.0-27.5) mmol/L BUN 16.9 (9.0-27.0) mg/dL Creatinine 1.1 (0.6-1.5) mg/dL Glucose 75 (70-110) mg/dL Calcium 8.3 L (8.7-10.3) mg/dL AST 21 (14-35) U/L ALT 16 (10-49) U/L Alkaline Phosphatase 67 (41-126) U/L Total Protein 6.2 (6.2-8.2) g/dL Albumin 3.1 L (3.8-4.9) g/dL Calcium panel 07/13/22 Range/Units 06:12 Calcium 8.3 L (8.7-10.3) mg/dL Albumin 3.1 L (3.8-4.9) g/dL Pituitary panel 07/13/22 Range/Units 06:12 Sodium 137 (135-145) mmol/L Potassium 4.2 (3.5-5.5) mmol/L Chloride 113 H (96-109) mmol/L Carbon Dioxide 17.6 L (20.0-27.5) mmol/L BUN 16.9 (9.0-27.0) mg/dL Creatinine 1.1 (0.6-1.5) mg/dL Glucose 75 (70-110) mg/dL Calcium 8.3 L (8.7-10.3) mg/dL Adrenal panel 07/13/22 Range/Units 06:12 Sodium 137 (135-145) mmol/L Potassium 4.2 (3.5-5.5) mmol/L Chloride 113 H (96-109) mmol/L Carbon Dioxide 17.6 L (20.0-27.5) mmol/L BUN 16.9 (9.0-27.0) mg/dL Creatinine 1.1 (0.6-1.5) mg/dL Glucose 75 (70-110) mg/dL Calcium 8.3 L (8.7-10.3) mg/dL Total Bilirubin 0.30 (0.30-1.20) mg/dL AST 21 (14-35) U/L ALT 16 (10-49) U/L Alkaline Phosphatase 67 (41-126) U/L Total Protein 6.2 (6.2-8.2) g/dL Albumin 3.1 L (3.8-4.9) g/dL
[2022-07-13 14:40] LABS: Cryptosporidium Antigen Negative (Negative)
[2022-07-14] MEDS: methylPREDNISolone SOD SUCCI 40 MG/ML 1 ML VIAL IV SCH ×4 (00:18→23:59)
[2022-07-14] MEDS: HYDROmorphone 1 MG/ML 1 ML SYRINGE IVP PRN ×8 (01:41→23:59)
--- NOTE | 2022-07-14 09:05 | P.PN ---
Subjective Principal diagnosis: Abdominal pain and anemia The patient is admitted secondary to severe abdominal pain and found to have anemia. History of hypertension. I will add hydralazine today. Otherwise, he feels a little better having Solu-Medrol. Appreciate surgical input. Objective - Vital Signs Vital signs: Vital Signs Temp 97.9 F 07/14/22 07:20 Pulse 66 07/14/22 07:20 Resp 16 07/14/22 07:20 BP 164/72 07/14/22 07:20 Pulse Ox 98 07/14/22 07:20 FiO2 Intake & Output 07/13/22 07/14/22 07/14/22 18:59 06:59 18:59 Intake Total 1366 Balance 1366 Intake: Oral 1080 Blood Product 286 Rc Pheresis As-3 Unit 286 [id number] Other: Voiding Method Toilet # Voids 2 3 1 - Constitutional General appearance: Present: average body habitus - EENT Eyes: Absent: abnormal pupil - Neck Neck: Absent: lymphadenopathy - Respiratory Respiratory: bilateral: CTA - Cardiovascular Rhythm: regular Heart sounds: normal: S1, S2 Abnormal Heart Sounds: Absent: S3 Gallop - Gastrointestinal General gastrointestinal: Present: distended. Absent: tenderness - Integumentary Integumentary: Absent: cellulitis - Labs CBC & Chem 7: 07/13/22 06:12 07/13/22 06:12 Labs: Abnormal Lab Results - Last 24 Hours (Table) 07/13/22 07/13/22 07/13/22 Range/Units 06:12 06:12 11:28 RBC 2.49 L (4.40-5.60) X 10*6/uL Hgb 5.7 L* (13.0-17.0) g/dL Hct 19.7 L* (39.6-50.0) % MCV 79.1 L (80.0-97.0) fL MCH 22.9 L (27.0-32.0) pg MCHC 28.9 L (32.0-37.0) g/dL Chloride 113 H (96-109) mmol/L Carbon Dioxide 17.6 L (20.0-27.5) mmol/L Anion Gap 6.40 L (10.00-18.00) mmol/L Calcium 8.3 L (8.7-10.3) mg/dL Albumin 3.1 L (3.8-4.9) g/dL Albumin/Globulin Ratio 1.00 L (1.60-3.17) g/dL Crossmatch See Detail Microbiology - Last 24 Hours (Table) 07/12/22 16:25 Stool Culture - Preliminary Stool Assessment and Plan (1) Crohn's colitis Current Visit: No Status: Acute Code(s): K50.10 - CROHN'S DISEASE OF LARGE INTESTINE WITHOUT COMPLICATIONS SNOMED Code(s): 62271078 (2) Dehydration Current Visit: No Status: Acute Code(s): E86.0 - DEHYDRATION SNOMED Code(s): 84560646 (3) Nausea and vomiting Current Visit: No Status: Acute Code(s): R11.2 - NAUSEA WITH VOMITING, UNSPECIFIED SNOMED Code(s): 47231650 (4) Opiate dependence Current Visit: No Status: Acute Code(s): F11.20 - OPIOID DEPENDENCE, UNCOMPLICATED SNOMED Code(s): 98952360 (5) Gout Current Visit: No Status: Chronic Code(s): M10.9 - GOUT, UNSPECIFIED SNOMED Code(s): 29899213 Plan: Check CBC this morning and in a.m. Transfuse PRBC as necessary. See orders otherwise
[2022-07-14 09:09] LABS: % Iron Saturation 4.36 (15.00-50.00)
[2022-07-14 09:12] LABS: African American GFR (CKD) 86.8 (60.0-200.0); Albumin 3.4 g/dL (3.8-4.9); Albumin/Globulin Ratio 1.03 (1.60-3.17); BUN/Creat Ratio 22.6 Ratio (12.00-20.00); Blood Urea Nitrogen 22.6 mg/dL (9.0-27.0); Calcium 8.3 mg/dL (8.7-10.3); Globulin 3.3 g/dL (1.6-3.3); Non-African American GFR(CKD) 74.9 (60.0-200.0); Potassium 4.6 mmol/L (3.5-5.5); Total Bilirubin 0.3 mg/dL (0.30-1.20); Total Protein 6.7 g/dL (6.2-8.2)
[2022-07-14] MEDS: ASPIRIN-ACET-CAFF 250-250-65MG 1 EACH TAB PO SCH (09:22)
[2022-07-14] MEDS: allopurinoL 100 MG TAB PO SCH (09:22)
[2022-07-14] MEDS: PANTOPRAZOLE 40 MG/10 ML VIAL IVP SCH (09:22)
[2022-07-14] MEDS: hydrALAZINE HCL 25 MG TAB PO SCH ×2 (09:23→20:53)
[2022-07-14] MEDS: CYCLOBENZAPRINE 10 MG TAB PO SCH ×2 (09:24→20:53)
[2022-07-14] MEDS: amLODIPine 10 MG TAB PO SCH (09:24)
--- NOTE | 2022-07-14 09:51 | CDI ---
Documentation Clarification Form Date: 07/14/2022 09:38AM From: Chayo Jordan RN CCDS Phone: [phone] Admit Date: 07/12/2022 4:26:00 AM Patient Name: Silvano Rajan Visit Number: [id number] Discharge Date: ATTENTION: The Clinical Documentation Specialists (CDI) and [facility] Coding Staff appreciate your assistance in clarifying documentation. Please respond to the clarification below the line at the bottom and electronically sign. The CDI & [facility] Coding staff will review the response and follow-up if needed. Please note: Queries are made part of the Legal Health Record. If you have any questions, please contact the author of this message via ITS. Dr. Minh Saldaña The Registered Dietitian assessment on 07/12 indicates this patient meets criteria for Severe malnutrition. Based on this information and the findings below, is there an additional diagnosis that is clinically appropriate for this patient? History/Risk Factors: 72 year old male presents to the ED with abdominal pain and weakness. Medical History: Crohns, Anemia, HTN, Partial gastrectomy and Afib Clinical Indicators: RD Consult Assessment: Current BMI: 17.9kg Weight 63.276kg; Hgt 6ft 2in. Physical Findings: Underweight, Moderate to severe muscle wasting of acromion process and scapula region> Weight Loss: 27% weight loss over a year Nutritional Diagnosis: Malnutrition. Severe malnutrition in the context of chronic illness. Related to: History of Crohns disease, anemia, chronic diarrhea. 27% weight loss in a year. Severe muscle wasting to the acromion process and scapula Treatment: Nutritional education. Nutritional relationship to health/disease. Handout on diet education for Crohns/ handling diarrhea. Low fiber diet and supplements. RD Consult: See above Supplements: Miguel Angel TID with meals and Ensure clear TID with meals Is there an additional diagnosis that is clinically appropriate for this patient? [ x ] Severe Protein-Calorie Malnutrition [ ] No additional diagnosis/Not clinically significant [ ] Other condition, please specify [ ] Unable to Determine (Template Last Revised: June 2020) MTDD
[2022-07-14 10:21] LABS: HCT 21.6 % (39.6-50.0); HGB 6.5 g/dL (13.0-17.0); MCH 23.6 pg (27.0-32.0); MCHC 30.1 g/dL (32.0-37.0); MCV 78.5 fL (80.0-97.0); Mean Platelet Volume 12.1 fL (9.5-12.2); NRBC Per 100 WBC 0 /100 WBCS (0.0-0.0); Platelet Count 190 X 10*3/uL (140-440); RBC 2.75 X 10*6/uL (4.40-5.60); RDW 14.6 % (11.5-14.5); WBC 8.65 X 10*3/uL (4.50-10.00)
[2022-07-14] MEDS ORDERED: BARIUM SULFATE 450 ML ORAL.SUSP BOTTLE PO PRN (12:34)
--- NOTE | 2022-07-14 13:07 | P.PN ---
Subjective Progress Note Date: 07/14/22 CHIEF COMPLAINT: Abdominal pain HISTORY OF PRESENT ILLNESS: Patient continues to have lower abdominal cramping and multiple episodes of diarrhea. No blood reported in the stools. She does report feeling achy all over. He has had significant weight loss. Stool for occult blood is negative. Hemoglobin 5.7 yesterday up to 6.5 after 1 unit of blood. Scheduled for another unit of blood today. Afebrile. WBC is 8.65 6.5 platelet 190 sodium is 134 potassium 4.6 creatinine 1.0 iron is low at 22 PHYSICAL EXAM: VITAL SIGNS: Reviewed. GENERAL: Well-developed in no acute distress. HEENT: No sclera icterus. Extraocular movements grossly intact. Moist buccal mucosa. Head is atraumatic, normocephalic. ABDOMEN: Soft. Mildly distended. Diffuse tenderness. NEUROLOGIC: Alert and oriented. Cranial nerves II through XII grossly intact. ASSESSMENT: 1. Abdominal pain with possible Crohn's exacerbation 2. Anemia 3. History of Crohn's disease requiring bowel resection in the past 4. Unexplained weight loss PLAN: -Barium enema study ordered for evaluation to rule out enterocolonic fistula -Continue steroids for possible Crohn's exacerbation -Continue IV fluids -Continue low fiber diet -Continue supportive care Physician Conveyor Worker note has been reviewed by physician. Signing provider agrees with the documented findings, assessment, and plan of care. Objective - Vital Signs Vital signs: Vital Signs Temp 97.4 F L 07/14/22 11:58 Pulse 56 L 07/14/22 11:58 Resp 16 07/14/22 11:58 BP 161/73 07/14/22 11:58 Pulse Ox 100 07/14/22 11:58 FiO2 Intake & Output 07/13/22 07/14/22 07/14/22 18:59 06:59 18:59 Intake Total 1366 0 Balance 1366 0 Intake: Oral 1080 Blood Product 286 0 Unit 0 Rc Pheresis As-3 Unit 286 [id number] Other: Voiding Method Toilet Toilet # Voids 2 3 1 - Labs CBC & Chem 7: 07/14/22 04:41 07/14/22 04:41 Labs: Abnormal Lab Results - Last 24 Hours (Table) 07/13/22 07/14/22 07/14/22 Range/Units 11:28 04:41 04:41 RBC 2.75 L (4.40-5.60) X 10*6/uL Hgb 6.5 L* (13.0-17.0) g/dL Hct 21.6 L (39.6-50.0) % MCV 78.5 L (80.0-97.0) fL MCH 23.6 L (27.0-32.0) pg MCHC 30.1 L (32.0-37.0) g/dL RDW 14.6 H (11.5-14.5) % Sodium 134 L (135-145) mmol/L Carbon Dioxide 13.0 L (20.0-27.5) mmol/L BUN/Creatinine Ratio 22.60 H (12.00-20.00) Ratio Glucose 158 H (70-110) mg/dL Calcium 8.3 L (8.7-10.3) mg/dL Iron 22 L (65-175) ug/dL TIBC 510 H (228-460) ug/dL % Saturation 4.36 L (15.00-50.00) Transferrin 364.0 H (204.0-354.0) mg/dL Albumin 3.4 L (3.8-4.9) g/dL Albumin/Globulin Ratio 1.03 L (1.60-3.17) g/dL Crossmatch See Detail Microbiology - Last 24 Hours (Table) 07/12/22 16:25 Stool Culture - Preliminary Stool
[2022-07-14] MEDS: KETOROLAC 15 MG/ML 1 ML VIAL IVP PRN ×2 (14:27→23:59)
[2022-07-14] MEDS: SODIUM CHLORIDE 0.9% 1,000 ML IV SCH ×2 (14:31→22:19)
[2022-07-14] MEDS: METOCLOPRAMIDE 5 MG/ML 2 ML VIAL IVP PRN (17:45)
[2022-07-15] MEDS: HYDROmorphone 1 MG/ML 1 ML SYRINGE IVP PRN ×7 (02:57→23:53)
--- NOTE | 2022-07-15 08:36 | P.PN ---
Subjective Progress Note Date: 07/15/22 Principal diagnosis: Abdominal pain This is a 72-year-old male who presented to the emergency room with complaints of abdominal pain and weakness. He reports increasing abdominal pain and discomfort over the last 2 weeks. He is also reporting weight loss and extreme fatigue.This morning he is seen sitting in bed, continues to have abdominal pain and now is reporting an increase in bloating. He also reports overnight he had multiple episodes of loose stool. 07/15/2022 Patient's hemoglobin low again yesterday, was given 1 unit of blood. Today's labs are unavailable at time of dictation. Dr. Patten has ordered a barium enema for today. Patient reports stomach is less distended fatigue is slightly improved. Patient denies any blood in stool, reports only mucus. Objective - Vital Signs Vital signs: Vital Signs Temp 98.1 F 07/15/22 07:15 Pulse 53 L 07/15/22 07:15 Resp 16 07/15/22 07:15 BP 144/69 07/15/22 07:15 Pulse Ox 98 07/15/22 07:15 FiO2 Intake & Output 07/14/22 07/15/22 07/15/22 18:59 06:59 18:59 Intake Total 310 0 Balance 310 0 Intake: Oral 0 Blood Product 310 Rc As-1 Unit 310 [id number] Other: Voiding Method Toilet # Voids 3 2 # Bowel Movements 2 - Constitutional General appearance: Present: cooperative, no acute distress - EENT Eyes: Present: EOMI, PERRLA - Neck Neck: Present: normal ROM. Absent: lymphadenopathy, rigidity - Respiratory Respiratory: bilateral: CTA - Cardiovascular Heart sounds: normal: S1, S2 - Gastrointestinal General gastrointestinal: Present: soft, tenderness - Integumentary Integumentary: Present: normal, normal turgor - Musculoskeletal Musculoskeletal: Present: generalized weakness - Psychiatric Psychiatric: Present: A&O x's 3, appropriate affect, intact judgment & insight - Labs CBC & Chem 7: 07/14/22 04:41 07/14/22 04:41 Labs: Abnormal Lab Results - Last 24 Hours (Table) 07/13/22 07/14/22 07/14/22 Range/Units 11:28 04:41 04:41 RBC 2.75 L (4.40-5.60) X 10*6/uL Hgb 6.5 L* (13.0-17.0) g/dL Hct 21.6 L (39.6-50.0) % MCV 78.5 L (80.0-97.0) fL MCH 23.6 L (27.0-32.0) pg MCHC 30.1 L (32.0-37.0) g/dL RDW 14.6 H (11.5-14.5) % Sodium 134 L (135-145) mmol/L Carbon Dioxide 13.0 L (20.0-27.5) mmol/L BUN/Creatinine Ratio 22.60 H (12.00-20.00) Ratio Glucose 158 H (70-110) mg/dL Calcium 8.3 L (8.7-10.3) mg/dL Iron 22 L (65-175) ug/dL TIBC 510 H (228-460) ug/dL % Saturation 4.36 L (15.00-50.00) Transferrin 364.0 H (204.0-354.0) mg/dL Albumin 3.4 L (3.8-4.9) g/dL Albumin/Globulin Ratio 1.03 L (1.60-3.17) g/dL Crossmatch See Detail Assessment and Plan (1) Intractable abdominal pain Current Visit: Yes Status: Acute Code(s): R10.9 - UNSPECIFIED ABDOMINAL PAIN SNOMED Code(s): 34576786 (2) Weakness Current Visit: Yes Status: Acute Code(s): R53.1 - WEAKNESS SNOMED Code(s): 26468543 (3) Crohns disease Current Visit: No Status: Acute Code(s): K50.90 - CROHN'S DISEASE, UNSPECIFIED, WITHOUT COMPLICATIONS SNOMED Code(s): 23615217 (4) Dehydration Current Visit: No Status: Acute Code(s): E86.0 - DEHYDRATION SNOMED Code(s): 99383480 (5) Nausea Current Visit: No Status: Acute Code(s): R11.0 - NAUSEA SNOMED Code(s): 833192200 (6) Hypertension Current Visit: No Status: Acute Code(s): I10 - ESSENTIAL (PRIMARY) HYPERTENSION SNOMED Code(s): 76625105 (7) History of atrial fibrillation Current Visit: Yes Status: Acute Code(s): Z86.79 - PERSONAL HISTORY OF OTHER DISEASES OF THE CIRCULATORY SYSTEM SNOMED Code(s): 892622065 (8) Severe protein-calorie malnutrition Current Visit: Yes Status: Acute Code(s): E43 - UNSPECIFIED SEVERE PROTEIN- CALORIE MALNUTRITION SNOMED Code(s): 415365654 Plan: Await results of barium enema and labs from today. CBC and CMP in the morning. Patient seen and evaluated by nurse practitioner, physician in agreement with plan
[2022-07-15] MEDS: methylPREDNISolone SOD SUCCI 40 MG/ML 1 ML VIAL IV SCH ×3 (08:47→23:50)
[2022-07-15] MEDS: HYDROmorphone 0.5 MG/0.5 ML SYRINGE IVP PRN (09:34)
[2022-07-15] MEDS: amLODIPine 10 MG TAB PO SCH (09:35)
[2022-07-15] MEDS: hydrALAZINE HCL 25 MG TAB PO SCH ×2 (09:35→19:55)
[2022-07-15] MEDS: PANTOPRAZOLE 40 MG/10 ML VIAL IVP SCH (09:35)
[2022-07-15] MEDS: CYCLOBENZAPRINE 10 MG TAB PO SCH ×2 (09:35→19:55)
[2022-07-15] MEDS: ASPIRIN-ACET-CAFF 250-250-65MG 1 EACH TAB PO SCH (09:36)
[2022-07-15] MEDS: allopurinoL 100 MG TAB PO SCH (09:36)
--- NOTE | 2022-07-15 11:15 | P.PN ---
Subjective Progress Note Date: 07/15/22 CHIEF COMPLAINT: Abdominal pain HISTORY OF PRESENT ILLNESS: Patient reports decrease abdominal pain today. He's had no further diarrhea during the night or this morning. He is scheduled for a barium enema x-ray today. Afebrile. Labs pending PHYSICAL EXAM: VITAL SIGNS: Reviewed. GENERAL: Well-developed in no acute distress. HEENT: No sclera icterus. Extraocular movements grossly intact. Moist buccal mucosa. Head is atraumatic, normocephalic. ABDOMEN: Soft. Nondistended. Nontender NEUROLOGIC: Alert and oriented. Cranial nerves II through XII grossly intact. ASSESSMENT: 1. Abdominal pain with possible Crohn's exacerbation 2. Anemia 3. History of Crohn's disease requiring bowel resection in the past 4. Unexplained weight loss PLAN: -Barium enema study ordered for evaluation to rule out enterocolonic fistula -Continue steroids for possible Crohn's exacerbation -Continue low fiber diet -Continue supportive care Physician Varying Exceptionalities Teacher note has been reviewed by physician. Signing provider agrees with the documented findings, assessment, and plan of care. I have personally seen and examined the patient, reviewed the TRACER POWDER BLENDER /PAs history, exam and MDM and agree with the assessment and plan as written. Based on total visit time, I have performed more than 50% of the visit. As above: Patient's barium enema today to evaluate for possible enterocolonic fistula was normal. Feels about the same otherwise. Agree with IV iron. Consider hematology evaluation. Continue diet. Objective - Vital Signs Vital signs: Vital Signs Temp 98.1 F 07/15/22 07:15 Pulse 53 L 07/15/22 07:15 Resp 16 07/15/22 07:15 BP 144/69 07/15/22 07:15 Pulse Ox 98 07/15/22 07:15 FiO2 Intake & Output 07/14/22 07/15/22 07/15/22 18:59 06:59 18:59 Intake Total 310 0 Balance 310 0 Intake: Oral 0 Blood Product 310 Rc As-1 Unit 310 [id number] Other: Voiding Method Toilet # Voids 3 2 # Bowel Movements 2 - Labs CBC & Chem 7: 07/15/22 07:17 07/15/22 07:17 Labs: Abnormal Lab Results - Last 24 Hours (Table) 07/13/22 07/14/22 Range/Units 11:28 04:41 RBC 2.75 L (4.40-5.60) X 10*6/uL Hgb 6.5 L* (13.0-17.0) g/dL Hct 21.6 L (39.6-50.0) % MCV 78.5 L (80.0-97.0) fL MCH 23.6 L (27.0-32.0) pg MCHC 30.1 L (32.0-37.0) g/dL RDW 14.6 H (11.5-14.5) % Crossmatch See Detail
[2022-07-15 11:59] LABS: African American GFR (CKD) 86.8 (60.0-200.0); Anion Gap 7.8 mmol/L (10.00-18.00); BUN/Creat Ratio 24.3 Ratio (12.00-20.00); Blood Urea Nitrogen 24.3 mg/dL (9.0-27.0); Calcium 8.1 mg/dL (8.7-10.3); Carbon Dioxide 17.2 mmol/L (20.0-27.5); Non-African American GFR(CKD) 74.9 (60.0-200.0); Potassium 4.4 mmol/L (3.5-5.5); Total Bilirubin 0.4 mg/dL (0.30-1.20)
--- NOTE | 2022-07-15 12:30 | FL ---
EXAMINATION TYPE: FL barium enema DATE OF EXAM: 07/15/2022 COMPARISON: Abdomen 08/18/2021 HISTORY: Unexplained weight loss 50 pounds x1 year, history of Crohn's disease TECHNIQUE: Single contrast barium enema was performed in an unprepped colon. FINDINGS: Contrast refluxes through the redundant colon to the right upper quadrant. This is the jennie on of the anastomosis postresection. There is refluxed into the distal ileum. Fecal debris is within the colon. No obvious persistent circumferential areas of narrowing or filling defects are identified. Smaller filling defects could not be visualized due to the fecal debris. No focal stenosis at the level of the anastomosis is evident. The distal ileum as visualized appears normal. No suspicious area of extravasation or fistula is identified. Presacral spaces normal. Retention is e vident on the postevacuation toward film. Fluoroscopy time: 2 minutes 27 seconds. Images: 31 IMPRESSION: 1. No suspicious changes for fistula formation identified on this unprepped single-contrast barium e nema.
[2022-07-15 12:43] LABS: HCT 22.5 % (39.6-50.0); HGB 6.8 g/dL (13.0-17.0); MCH 23.7 pg (27.0-32.0); MCHC 30.2 g/dL (32.0-37.0); MCV 78.4 fL (80.0-97.0); Mean Platelet Volume 11.1 fL (9.5-12.2); NRBC Per 100 WBC 0 /100 WBCS (0.0-0.0); Platelet Count 188 X 10*3/uL (140-440); RBC 2.87 X 10*6/uL (4.40-5.60); WBC 11.64 X 10*3/uL (4.50-10.00)
[2022-07-15] MEDS: SODIUM FERRIC GLUCONAT-SUCROSE 125 MG in SODIUM CHLORIDE 0.9% 100 ML IVPB SCH (14:55)
[2022-07-15] MEDS: SODIUM CHLORIDE 0.9% 1,000 ML IV SCH (14:56)
[2022-07-16] MEDS: SODIUM CHLORIDE 0.9% 1,000 ML IV SCH ×2 (02:39→06:25)
[2022-07-16] MEDS: HYDROmorphone 1 MG/ML 1 ML SYRINGE IVP PRN ×7 (03:21→21:32)
[2022-07-16] MEDS: allopurinoL 100 MG TAB PO SCH (09:01)
[2022-07-16] MEDS: amLODIPine 10 MG TAB PO SCH (09:01)
[2022-07-16] MEDS: methylPREDNISolone SOD SUCCI 40 MG/ML 1 ML VIAL IV SCH ×2 (09:01→14:55)
[2022-07-16] MEDS: ASPIRIN-ACET-CAFF 250-250-65MG 1 EACH TAB PO SCH (09:02)
[2022-07-16] MEDS: CYCLOBENZAPRINE 10 MG TAB PO SCH ×2 (09:06→21:32)
[2022-07-16] MEDS: hydrALAZINE HCL 25 MG TAB PO SCH ×2 (09:06→21:32)
[2022-07-16] MEDS: PANTOPRAZOLE 40 MG/10 ML VIAL IVP SCH (09:06)
[2022-07-16] MEDS: SODIUM FERRIC GLUCONAT-SUCROSE 125 MG in SODIUM CHLORIDE 0.9% 100 ML IVPB SCH (09:07)
--- NOTE | 2022-07-16 10:01 | P.PN ---
Subjective Progress Note Date: 07/16/22 CHIEF COMPLAINT: Abdominal pain HISTORY OF PRESENT ILLNESS: Patient feels more distended and bloated today. He is back to having lower abdominal pain. He did have diarrhea no blood reported in the stool. He is requiring the IV Dilaudid. Barium enema x-ray showed no suspicious changes for fistula formation. Patient received 1 unit of blood yesterday for hgb 6.8 and has been started on IV iron. Afebrile. Blood pressure elevated. Labs pending. PHYSICAL EXAM: VITAL SIGNS: Reviewed. GENERAL: Well-developed in no acute distress. HEENT: No sclera icterus. Extraocular movements grossly intact. Moist buccal mucosa. Head is atraumatic, normocephalic. ABDOMEN: Distended. Tenderness palpation lower abdomen NEUROLOGIC: Alert and oriented. Cranial nerves II through XII grossly intact. ASSESSMENT: 1. Abdominal pain with possible Crohn's exacerbation 2. Anemia possibly due to malnutrition due to poor absorption 3. History of Crohn's disease requiring bowel resection in the past 4. Unexplained weight loss 5. Iron deficiency anemia PLAN: -Continue to monitor hemoglobin and transfuse as needed -Continue IV iron -Recommend hematology consult regarding anemia -Continue steroids for possible Crohn's exacerbation -Continue low fiber diet -Continue supportive care -Encourage patient to ambulate Physician Radiology Clerk note has been reviewed by physician. Signing provider agrees with the documented findings, assessment, and plan of care. I have personally seen and examined the patient, reviewed the HEL[employer]ES[employer] SPECIALIST /PAs history, exam and MDM and agree with the assessment and plan as written. Based on total visit time, I have performed more than 50% of the visit. As above: Patient still having vague abdominal pain. He says it's about at the level of his chronic Crohn's related discomforts. He is tolerating his diet. Morning labs are pending. If hemoglobin stable May discharge from our point of view. Follow-up in the GI after discharge. Consider outpatient contrast study such as small bowel series or MR enterography to evaluate for entero-enteral fistula. Objective - Vital Signs Vital signs: Vital Signs Temp 97.6 F 07/16/22 07:59 Pulse 66 07/16/22 07:59 Resp 17 07/16/22 07:59 BP 171/65 07/16/22 07:59 Pulse Ox 98 07/16/22 07:59 FiO2 Intake & Output 07/15/22 07/16/22 07/16/22 18:59 06:59 18:59 Intake Total 0 1690 Balance 0 1690 Weight 63.503 kg Intake: Intake, IV Titration 900 Amount Sodium Chloride 0.9% 1, 900 000 ml @ 75 mls/hr IV . [id number] GABE Rx#:[id number] Oral 480 Blood Product 0 310 Rc As-1 Unit 0 310 [id number] Other: # Voids 3 3 - Labs CBC & Chem 7: 07/15/22 07:17 07/16/22 09:18 Labs: Abnormal Lab Results - Last 24 Hours (Table) 07/13/22 07/15/22 07/15/22 Range/Units 11:28 07:17 07:17 WBC 11.64 H (4.50-10.00) X 10*3/uL RBC 2.87 L (4.40-5.60) X 10*6/uL Hgb 6.8 L* (13.0-17.0) g/dL Hct 22.5 L (39.6-50.0) % MCV 78.4 L (80.0-97.0) fL MCH 23.7 L (27.0-32.0) pg MCHC 30.2 L (32.0-37.0) g/dL RDW 15.0 H (11.5-14.5) % Chloride 111 H (96-109) mmol/L Carbon Dioxide 17.2 L (20.0-27.5) mmol/L Anion Gap 7.80 L (10.00-18.00) mmol/L BUN/Creatinine Ratio 24.30 H (12.00-20.00) Ratio Glucose 134 H (70-110) mg/dL Calcium 8.1 L (8.7-10.3) mg/dL Total Protein 6.0 L (6.2-8.2) g/dL Albumin 3.0 L (3.8-4.9) g/dL Albumin/Globulin Ratio 1.00 L (1.60-3.17) g/dL Crossmatch See Detail Microbiology - Last 24 Hours (Table) 07/12/22 16:25 Stool Culture - Preliminary Stool
[2022-07-16] MEDS: ONDANSETRON 4 MG/2 ML VIAL IVP PRN (12:31)
--- NOTE | 2022-07-16 12:53 | P.PN ---
Subjective Principal diagnosis: Abdominal pain and anemia The patient is admitted secondary to severe abdominal pain and found to have anemia. Barium enemas nominal. Blood pressure stabilizing Objective - Vital Signs Vital signs: Vital Signs Temp 97.6 F 07/16/22 07:59 Pulse 66 07/16/22 07:59 Resp 17 07/16/22 07:59 BP 171/65 07/16/22 07:59 Pulse Ox 98 07/16/22 07:59 FiO2 Intake & Output 07/15/22 07/16/22 07/16/22 18:59 06:59 18:59 Intake Total 0 1690 940 Balance 0 1690 940 Weight 63.503 kg Intake: Intake, IV Titration 900 700 Amount Sodium Chloride 0.9% 1, 900 600 000 ml @ 75 mls/hr IV . [id number] GABE Rx#:[id number] Sodium Ferric Gluconat- 100 Sucrose 125 mg In Sodium Chloride 0.9% 100 ml @ 100 mls/hr IVPB DAILY GABE Rx#:[id number] Oral 480 240 Blood Product 0 310 Rc As-1 Unit 0 310 [id number] Other: # Voids 3 3 - Constitutional General appearance: Present: average body habitus - EENT Eyes: Absent: abnormal pupil - Neck Neck: Absent: lymphadenopathy - Respiratory Respiratory: bilateral: diminished - Cardiovascular Rhythm: regular Heart sounds: normal: S1, S2 Abnormal Heart Sounds: Absent: S3 Gallop - Gastrointestinal General gastrointestinal: Present: soft. Absent: tenderness - Musculoskeletal Musculoskeletal: Present: gait normal - Labs CBC & Chem 7: 07/15/22 07:17 07/15/22 07:17 Labs: Abnormal Lab Results - Last 24 Hours (Table) 07/13/22 07/15/22 Range/Units 11:28 07:17 WBC 11.64 H (4.50-10.00) X 10*3/uL RBC 2.87 L (4.40-5.60) X 10*6/uL Hgb 6.8 L* (13.0-17.0) g/dL Hct 22.5 L (39.6-50.0) % MCV 78.4 L (80.0-97.0) fL MCH 23.7 L (27.0-32.0) pg MCHC 30.2 L (32.0-37.0) g/dL RDW 15.0 H (11.5-14.5) % Crossmatch See Detail Microbiology - Last 24 Hours (Table) 07/12/22 16:25 Stool Culture - Preliminary Stool Assessment and Plan (1) Crohn's colitis Current Visit: No Status: Acute Code(s): K50.10 - CROHN'S DISEASE OF LARGE INTESTINE WITHOUT COMPLICATIONS SNOMED Code(s): 88217433 (2) Dehydration Current Visit: No Status: Acute Code(s): E86.0 - DEHYDRATION SNOMED Code(s): 85170571 (3) Nausea and vomiting Current Visit: No Status: Acute Code(s): R11.2 - NAUSEA WITH VOMITING, UNSPECIFIED SNOMED Code(s): 47183424 (4) Opiate dependence Current Visit: No Status: Acute Code(s): F11.20 - OPIOID DEPENDENCE, UNCOMPL ICATED SNOMED Code(s): 13479236 (5) Gout Current Visit: No Status: Chronic Code(s): M10.9 - GOUT, UNSPECIFIED SNOMED Code(s): 24041250 (6) Weakness Current Visit: Yes Status: Acute Code(s): R53.1 - WEAKNESS SNOMED Code(s): 57364123 (7) Abdominal pain Current Visit: No Status: Acute Code(s): R10.9 - UNSPECIFIED ABDOMINAL PAIN SNOMED Code(s): 54391743 (8) Diarrhea Current Visit: No Status: Acute Code(s): R19.7 - DIARRHEA, UNSPECIFIED SNOMED Code(s): 63556579 Plan: Check CBC this morning. Transfuse PRBC as necessary. See orders otherwise
[2022-07-16 15:14] LABS: African American GFR (CKD) 74.1 (60.0-200.0); Albumin 3.2 g/dL (3.8-4.9); Anion Gap 14.5 mmol/L (10.00-18.00); BUN/Creat Ratio 20.61 Ratio (12.00-20.00); Blood Urea Nitrogen 23.5 mg/dL (9.0-27.0); Calcium 8.5 mg/dL (8.7-10.3); Carbon Dioxide 13.7 mmol/L (20.0-27.5); Globulin 3.2 g/dL (1.6-3.3); Non-African American GFR(CKD) 63.9 (60.0-200.0); Potassium 4.1 mmol/L (3.5-5.5); Total Bilirubin 0.5 mg/dL (0.30-1.20); Total Protein 6.3 g/dL (6.2-8.2)
[2022-07-16 15:29] LABS: HCT 27.2 % (39.6-50.0); HGB 8.4 g/dL (13.0-17.0); MCH 24.3 pg (27.0-32.0); MCHC 30.9 g/dL (32.0-37.0); MCV 78.6 fL (80.0-97.0); Mean Platelet Volume 12.7 fL (9.5-12.2); NRBC Per 100 WBC 0 /100 WBCS (0.0-0.0); Platelet Count 179 X 10*3/uL (140-440); RBC 3.46 X 10*6/uL (4.40-5.60); RDW 15.1 % (11.5-14.5); WBC 11.01 X 10*3/uL (4.50-10.00)
[2022-07-16] MEDS: METOCLOPRAMIDE 5 MG/ML 2 ML VIAL IVP PRN (18:27)
[2022-07-16] MEDS: TEMAZEPAM 15 MG CAP PO PRN (22:34)
[2022-07-17] MEDS: SODIUM CHLORIDE 0.9% 1,000 ML IV SCH ×2 (00:35→14:40)
[2022-07-17] MEDS: HYDROmorphone 1 MG/ML 1 ML SYRINGE IVP PRN ×8 (00:36→21:55)
[2022-07-17] MEDS: methylPREDNISolone SOD SUCCI 40 MG/ML 1 ML VIAL IV SCH ×4 (00:39→23:48)
[2022-07-17] MEDS: ONDANSETRON 4 MG/2 ML VIAL IVP PRN (03:53)
[2022-07-17] MEDS: PANTOPRAZOLE 40 MG/10 ML VIAL IVP SCH (09:11)
[2022-07-17] MEDS: hydrALAZINE HCL 25 MG TAB PO SCH ×2 (09:12→20:48)
[2022-07-17] MEDS: CYCLOBENZAPRINE 10 MG TAB PO SCH ×2 (09:12→20:48)
[2022-07-17] MEDS: amLODIPine 10 MG TAB PO SCH (09:13)
[2022-07-17] MEDS: ASPIRIN-ACET-CAFF 250-250-65MG 1 EACH TAB PO SCH (09:13)
[2022-07-17] MEDS: allopurinoL 100 MG TAB PO SCH (09:13)
[2022-07-17] MEDS: SODIUM FERRIC GLUCONAT-SUCROSE 125 MG in SODIUM CHLORIDE 0.9% 100 ML IVPB SCH (09:31)
--- NOTE | 2022-07-17 09:34 | P.PN ---
Progress Note - Text Progress Note Date: 07/17/22 Patient has complaints of abdominal pain. He states that the 1 mg of Dilaudid every 3 hours not holding his pain. He has had some diarrhea. On exam vital signs are stable. Abdomen soft distended there is mild tenderness throughout. Exacerbation Crohn's. Patient will have his narcotics increased we will add 0.5 Dilaudid every hour for breakthrough pain. The patient will be observed.
[2022-07-17] MEDS: HYDROmorphone 0.5 MG/0.5 ML SYRINGE IVP PRN ×3 (16:44→23:48)
[2022-07-17] MEDS: TEMAZEPAM 15 MG CAP PO PRN (23:56)
[2022-07-18] MEDS: HYDROmorphone 1 MG/ML 1 ML SYRINGE IVP PRN ×7 (01:25→23:17)
[2022-07-18] MEDS: HYDROmorphone 0.5 MG/0.5 ML SYRINGE IVP PRN ×2 (03:30→12:22)
[2022-07-18] MEDS: allopurinoL 100 MG TAB PO SCH (09:54)
[2022-07-18] MEDS: hydrALAZINE HCL 25 MG TAB PO SCH ×2 (09:54→20:30)
[2022-07-18] MEDS: amLODIPine 10 MG TAB PO SCH (09:54)
[2022-07-18] MEDS: PANTOPRAZOLE 40 MG/10 ML VIAL IVP SCH (09:54)
[2022-07-18] MEDS: CYCLOBENZAPRINE 10 MG TAB PO SCH ×2 (09:54→20:30)
[2022-07-18] MEDS: methylPREDNISolone SOD SUCCI 40 MG/ML 1 ML VIAL IV SCH ×3 (09:55→23:17)
[2022-07-18] MEDS: ASPIRIN-ACET-CAFF 250-250-65MG 1 EACH TAB PO SCH (09:55)
--- NOTE | 2022-07-18 11:13 | P.PN ---
Progress Note - Text Progress Note Date: 07/18/22 The patient feels better today. He has less complaints of abdominal pain. On exam vital signs are stable. Abdomen is soft. There is minimal tenderness throughout. There is no rebound or guarding. Exacerbation Crohn's. Patient will be discharged home per the medical service. No surgical intervention is planned.
--- NOTE | 2022-07-18 12:10 | P.PN ---
Subjective Progress Note Date: 07/17/22 72-year-old male who presented to the emergency room for abdominal pain and weakness. He does have a significant gastrointestinal history which includes Crohn disease. Patient reports increasing abdominal pain with radiation into the back over the last 2 weeks. He also is reporting weight loss and extreme fatigue. Does report he is eating regularly, but still has weight loss. -- Patient remains on IV steroids, methylprednisolone 40 mg IV every 8 hours -- Continues to report several loose bowel movements throughout the day - Patient remains uncontrolled --Gen. surgery is on board and patient's pain medication is adjusted with extra Dilaudid for breakthrough pain Objective - Vital Signs Vital signs: Vital Signs Temp 98.0 F 07/17/22 14:08 Pulse 59 L 07/17/22 14:08 Resp 16 07/17/22 14:08 BP 164/71 07/17/22 14:08 Pulse Ox 98 07/17/22 14:08 FiO2 Intake & Output 07/16/22 07/17/22 07/17/22 18:59 06:59 18:59 Intake Total 1890 900 Balance 1890 900 Weight 63.503 kg Intake: Intake, IV Titration 700 900 Amount Sodium Chloride 0.9% 1, 600 900 000 ml @ 75 mls/hr IV . [id number] GABE Rx#:[id number] Sodium Ferric Gluconat- 100 Sucrose 125 mg In Sodium Chloride 0.9% 100 ml @ 100 mls/hr IVPB DAILY GABE Rx#:[id number] Oral 1190 Other: # Voids 3 4 # Bowel Movements 4 - Exam PHYSICAL EXAMINATION: GENERAL: The patient is alert and oriented x3, not in any acute distress. Well developed, well nourished. HEENT: Pupils are round and equally reacting to light. EOMI. No scleral icterus. No conjunctival pallor. Normocephalic, atraumatic. No pharyngeal erythema. No thyromegaly. CARDIOVASCULAR: S1 and S2 present. No murmurs, rubs, or gallops. PULMONARY: Chest is clear to auscultation, no wheezing or crackles. ABDOMEN: Soft, nontender, nondistended, normoactive bowel sounds. No palpable organomegaly. MUSCULOSKELETAL: No joint swelling or deformity. EXTREMITIES: No cyanosis, clubbing, or pedal edema. NEUROLOGICAL: Gross neurological examination did not reveal any focal deficits. SKIN: No rashes. - Labs CBC & Chem 7: 07/16/22 09:18 07/16/22 09:18 Labs: Microbiology - Last 24 Hours (Table) 07/12/22 16:25 Stool Culture - Final Stool Assessment and Plan Assessment: 1. Abdominal pain with possible Crohn's exacerbation 2. Anemia with history of chronic anemia 3. History of Crohn's disease requiring bowel resection in the past PLAN: -Downgraded diet to clear liquids -Continue IV steroids -Continue IV Fluids -Check stool for occult blood -Agree with blood transfusion -Repeat CBC in a.m. -Monitor for any signs or symptoms of bleeding -Check iron studies -Continue supportive care
[2022-07-18] MEDS: ONDANSETRON 4 MG/2 ML VIAL IVP PRN (13:33)
[2022-07-18] MEDS: SODIUM CHLORIDE 0.9% 1,000 ML IV SCH ×2 (16:46→23:20)
[2022-07-18] MEDS: METOCLOPRAMIDE 5 MG/ML 2 ML VIAL IVP PRN (16:50)
--- NOTE | 2022-07-18 17:03 | P.PN ---
Subjective Progress Note Date: 07/18/22 72-year-old male who presented to the emergency room for abdominal pain and weakness. He does have a significant gastrointestinal history which includes Crohn disease. Patient reports increasing abdominal pain with radiation into the back over the last 2 weeks. He also is reporting weight loss and extreme fatigue. Does report he is eating regularly, but still has weight loss. -- Patient remains on IV steroids, methylprednisolone 40 mg IV every 8 hours -- Continues to report several loose bowel movements throughout the day - Patient remains uncontrolled --Gen. surgery is on board and patient's pain medication is adjusted with extra Dilaudid for breakthrough pain 07/18/2022 Patient is seen and evaluated in room at bedside; continues to report multiple episodes of diarrhea - She has been evaluated by surgery and is recommended to continue with with discharge home once clinically improved; no plans for surgery at this time Patient remains on IV Dilaudid 1 mg every 3 hours with added 0.5 mg every hour for breakthrough pain - Remains on IV Solu-Medrol 40 mg every 8 hours Objective - Vital Signs Vital signs: Vital Signs Temp 97.6 F 07/18/22 07:23 Pulse 47 L 07/18/22 07:23 Resp 15 07/18/22 07:23 BP 175/70 07/18/22 07:23 Pulse Ox 98 07/18/22 07:23 FiO2 Intake & Output 07/17/22 07/18/22 07/18/22 18:59 06:59 18:59 Intake Total 1080 Balance 1080 Intake: Oral 1080 Other: # Voids 3 3 # Bowel Movements 5 - Exam PHYSICAL EXAMINATION: GENERAL: The patient is alert and oriented x3, not in any acute distress. Well developed, well nourished. HEENT: Pupils are round and equally reacting to light. EOMI. No scleral icterus. No conjunctival pallor. Normocephalic, atraumatic. No pharyngeal erythema. No thyromegaly. CARDIOVASCULAR: S1 and S2 present. No murmurs, rubs, or gallops. PULMONARY: Chest is clear to auscultation, no wheezing or crackles. ABDOMEN: Soft, nontender, nondistended, normoactive bowel sounds. No palpable organomegaly. MUSCULOSKELETAL: No joint swelling or deformity. EXTREMITIES: No cyanosis, clubbing, or pedal edema. NEUROLOGICAL: Gross neurological examination did not reveal any focal deficits. SKIN: No rashes. - Labs CBC & Chem 7: 07/16/22 09:18 07/16/22 09:18 Assessment and Plan Assessment: 1. Abdominal pain with possible Crohn's exacerbation 2. Anemia with history of chronic anemia 3. History of Crohn's disease requiring bowel resection in the past PLAN: -Downgraded diet to clear liquids -Continue IV steroids -Continue IV Fluids -Check stool for occult blood -Agree with blood transfusion -Repeat CBC in a.m. -Monitor for any signs or symptoms of bleeding -Check iron studies -Continue supportive care
[2022-07-18] MEDS: TEMAZEPAM 15 MG CAP PO PRN (23:17)
[2022-07-19] MEDS: HYDROmorphone 1 MG/ML 1 ML SYRINGE IVP PRN ×4 (02:45→12:59)
[2022-07-19 03:00] VITALS: RESP 16
[2022-07-19] MEDS: HYDROmorphone 0.5 MG/0.5 ML SYRINGE IVP PRN (04:58)
[2022-07-19] MEDS: methylPREDNISolone SOD SUCCI 40 MG/ML 1 ML VIAL IV SCH (07:59)
[2022-07-19] MEDS: PANTOPRAZOLE 40 MG/10 ML VIAL IVP SCH (07:59)
[2022-07-19] MEDS: ASPIRIN-ACET-CAFF 250-250-65MG 1 EACH TAB PO SCH (09:28)
[2022-07-19] MEDS: CYCLOBENZAPRINE 10 MG TAB PO SCH (09:29)
[2022-07-19] MEDS: hydrALAZINE HCL 25 MG TAB PO SCH (09:29)
[2022-07-19] MEDS: SODIUM CHLORIDE 0.9% 1,000 ML IV SCH (09:29)
[2022-07-19] MEDS: amLODIPine 10 MG TAB PO SCH (09:29)
[2022-07-19] MEDS: allopurinoL 100 MG TAB PO SCH (09:29)
[2022-07-19] MEDS: ONDANSETRON 4 MG/2 ML VIAL IVP PRN (10:03)
[2022-07-19 10:50] LABS: HCT 29.6 % (39.0-53.0); HGB 9.2 gm/dL (13.0-17.5); Hypochromasia Moderate; MCH 24.9 pg (25.0-35.0); MCHC 31.2 g/dL (31.0-37.0); MCV 79.9 fL (80.0-100.0); Mean Platelet Volume 8.1; Platelet Count 173 k/uL (150-450); Poikilocytosis Slight; RDW 15.9 % (11.5-15.5); WBC 9.1 k/uL (3.8-10.6)
--- NOTE | 2022-07-19 11:17 | P.PN ---
Subjective Progress Note Date: 07/19/22 CHIEF COMPLAINT: Abdominal pain HISTORY OF PRESENT ILLNESS: Patient overall feels better today. However, he still has abdominal bloating after eating and has been having diarrhea. Still has the lower abdominal cramping before bowel movement. He does report that the diarrhea is less than what was on admission. Still no blood in the stools. He remains on IV steroids. His hemoglobin is up to 9.2. Currently on a low fiber diet. Patient is going to be seen by GI service today. Patient completed IV iron and received a total of 3 units of blood during this admission PHYSICAL EXAM: VITAL SIGNS: Reviewed. GENERAL: Well-developed in no acute distress. HEENT: No sclera icterus. Extraocular movements grossly intact. Moist buccal mucosa. Head is atraumatic, normocephalic. ABDOMEN: Distended. Tenderness palpation lower abdomen NEUROLOGIC: Alert and oriented. Cranial nerves II through XII grossly intact. ASSESSMENT: 1. Abdominal pain with possible Crohn's exacerbation 2. Anemia possibly due to malnutrition due to poor absorption 3. History of Crohn's disease requiring bowel resection in the past 4. Unexplained weight loss 5. Iron deficiency anemia PLAN: -We'll await further recommendations per GI service -Continue to monitor hemoglobin -Continue steroids for possible Crohn's exacerbation -Continue low fiber diet -Continue supportive care -Encourage patient to ambulate Physician Pigskin Trimmer note has been reviewed by physician. Signing provider agrees with the documented findings, assessment, and plan of care. I have personally seen and examined the patient, reviewed the SECONDARY HISTORY TEACHER /PAs history, exam and MDM and agree with the assessment and plan as written. Based on total visit time, I have performed more than 50% of the visit. As above: Patient frustrated that he has not been discharge it. He says he feels much better than when he was admitted. More energy. Mild chronic abdominal discomfort. No further surgical plans. May discharge. Objective - Vital Signs Vital signs: Vital Signs Temp 98.8 F 07/19/22 07:12 Pulse 48 L 07/19/22 07:12 Resp 16 07/19/22 07:12 BP 175/65 07/19/22 07:12 Pulse Ox 98 07/19/22 07:12 FiO2 Intake & Output 07/18/22 07/19/22 07/19/22 18:59 06:59 18:59 Intake Total 1080 Balance 1080 Intake: Oral 1080 Other: Voiding Method Toilet Toilet # Voids 2 4 # Bowel Movements 2 2 - Labs CBC & Chem 7: 07/19/22 10:23 07/16/22 09:18 Labs: Abnormal Lab Results - Last 24 Hours (Table) 07/19/22 Range/Units 10:23 RBC 3.70 L (4.30-5.90) m/uL Hgb 9.2 L (13.0-17.5) gm/dL Hct 29.6 L (39.0-53.0) % MCV 79.9 L (80.0-100.0) fL MCH 24.9 L (25.0-35.0) pg RDW 15.9 H (11.5-15.5) %
[2022-07-19] MEDS ORDERED: HYDROcodone/APAP 5-325MG 1 EACH TAB PO PRN (12:48)
--- NOTE | 2022-07-19 13:16 | P.CONS ---
History of Present Illness - Reason for Consult Consult date: 07/19/22 Abdominal pain, Crohn's disease Requesting physician: Minh Saldaña - Chief Complaint Abdominal pain, weakness, weight loss - History of Present Illness This is 72-year-old male patient well-known to gastroenterology and Dr. Yancey. He has a long-standing history of Crohn's disease with previous small bowel resection. Patient presented to emergency department on 07/12/2022 with complaints of weakness, increased diarrhea, abdominal pain and weight loss. Patient states he has lost 50 pounds over the last 1 year duration. States that diarrhea began approximately 2 weeks prior to coming into the hospital, abdominal pain worsened on Tuesday and patient presented the following Tuesday. States he was given 8-10 nonbloody loose stools a day. Nausea but no vomiting. Patient recently came back from a trip to see his sister at this state, possibly has weakness and fatigue was related to that. Patient's also has been sick over the last couple months without bacteremia. Patient's been under increased stress. He is on Humira and last dose was taken 2 weeks ago. Gen. surgery was consulted during this hospitalization, he was noted to have elevated sed rate, CRP was within normal limits. He was started on IV Solu-Medrol 40 mg every 8 hours. He states abdominal pain has improved some but still having pain, according to nursing he is requesting IV pain medication every 2-3 hours. Stool C. diff negative, stool cultures negative. Patient has a history of chronic anemia and was noted to have a hemoglobin of 5.7 on 07/13/2022, he was transfused with 3 units of blood. Last EGD and colonoscopy done on 11/03/[address] Ribeiro. EGD showed anastomotic ulcer and gastritis. Colonoscopy revealed no active Crohn's. Today's labs WBC 9.1 hemoglobin 9.2 and hematocrit 29 platelet count 173,000. He is afebrile, states he has nausea but no vomiting. 3 loose nonbloody stools this morning. Patient is requesting to be discharged home. CAT scan abdomen and pelvis without contrast reported numerous nonobstructing bilateral renal calculi. 3 cm posterior right renal cortical cyst. Previous right colon surgery. Arthrosclerotic vascular disease. Old granulomatous disease no bowel obstruction. Improvement in the rectal wall thickening compared to old exam. Review of Systems REVIEW OF SYSTEMS: CARDIOPULMONARY: No chest pain or shortness of breath. Gastrointestinal: Diffuse abdominal pain, greatest on mid and lower right abdomen. Bloating. Nausea, no vomiting. No hematemesis, coffee-ground emesis. No rectal bleeding, or melena. GENITOURINARY: No dysuria or hematuria. MUSCULOSKELETAL: Reports normal range of motion. SKIN: No rashes. No jaundice. ENDOCRINE: No chills, fevers. Reports a weight loss up to 50 pounds over the last 1 year duration. No polydipsia or polyuria. PSYCHIATRIC: Unremarkable. NEUROLOGY: No change in mental status. Denies dizziness, headache. ENT: Vision unremarkable. CONSTITUTIONAL: No recent weight loss. No fever, chills, night sweats. Past Medical History Past Medical History: Atrial Fibrillation, GERD/Reflux, Hypertension, Rheumatoid Arthritis (RA), Skin Disorder, Supraventricular Tachycardia (SVT) Additional Past Medical History / Comment(s): hx CROHN'S (takes tresa), IBS, chronic diarrhea, migraines-, hx ulcers, anemia, gout, kidney stones, psoriasis, bilateral tinnitis., pinched sciatic nerve, C-Diff 2017, neuropathy History of Any Multi-Drug Resistant Organisms: C-DIFF Year Discovered:: stool MDRO Source:: 2017 Past Surgical History: Bowel Resection, Cardiac Ablation, Cholecystectomy, Heart Catheterization, Hernia Repair, Orthopedic Surgery, Tonsillectomy Additional Past Surgical History / Comment(s): 1/3 of stomach removed (partial gastrectomy), ulcers, bowel resections, fecal transplant 2017, bilateral knee arthroscopic surgery, EGD/colonoscopies, R inguinal hernia repair, bilat cataract removal, Past Anesthesia/Blood Transfusion Reactions: Blood Transfusion Reaction, Motion Sickness Additional Past Anesthesia/Blood Transfusion Reaction / Comm: BLOOD TRANSFUSION- BROKE OUT IN HIVES age 21 Past Psychological History: Anxiety Smoking Status: Never smoker Past Alcohol Use History: None Reported Past Drug Use History: None Reported - Past Family History Mother Family Medical History: Pulmonary Embolus Additional Family Medical History / Comment(s): AGE 73-DE, STROKE DURING CARATID PROCEDURE Medications and Allergies Home Medications Medication Instructions Recorded Confirmed Type Orphenadrine Citrate [Orphenadrine 100 mg PO BID 12/08/17 07/12/22 History Citrate ER] Febuxostat [Uloric] 80 mg PO DAILY 05/05/18 07/12/22 History amLODIPine [Norvasc] 10 mg PO DAILY 10/18/20 07/12/22 History Fiypriv-Aydd-Xcdf [id number] 2 tab PO DAILY 07/12/22 07/12/22 History [Excedrin] Acetaminophen Tab [Tylenol] 650 mg PO Q6HR PRN tab 07/19/22 Rx Pantoprazole Sodium [Protonix] 40 mg PO DAILY #14 tab 07/19/22 Rx hydrALAZINE HCL [Apresoline] 25 mg PO BID #60 tab 07/19/22 Rx predniSONE 0 mg PO DIRECTED #126 tab 07/19/22 Rx Allergies Allergy/AdvReac Type Severity Reaction Status Date / Time Iodinated Contrast Media Allergy Anaphylaxis Verified 07/12/22 06:46 [Iodinated Contrast Media - IV Dye] Physical Exam Vitals: Vital Signs Temp Pulse Resp BP Pulse Ox 07/19/22 07:12 98.8 F 48 L 16 175/65 98 07/19/22 02:16 98.1 F 54 L 16 171/68 97 07/18/22 19:30 98.3 F 56 L 183/83 98 07/18/22 13:30 98.1 F 57 L 14 161/66 98 Intake and Output 07/18/22 07/19/22 07/19/22 22:59 06:59 14:59 Intake Total 1080 Balance 1080 Intake: Oral 1080 Other: Voiding Method Toilet Toilet # Voids 2 4 # Bowel Movements 2 2 General appearance: The patient is alert, oriented, appears in no acute distress. HET: Head is normocephalic and atraumatic. Conjunctiva pink. Sclera anicteric. Neck: Supple without lymphadenopathy. Trachea midline. Heart: S1 S2. Regular rate and rhythm. Lungs: Clear to auscultation. Abdomen: Soft, diffuse tenderness, mild distention. No guarding or rigidity. Skin: No rashes. No jaundice. Extremities: Normal skin color and turgor. No pedal edema. Neurological: No focal deficits. Alert and oriented x3. Results CBC & Chem 7: 07/19/22 10:23 07/16/22 09:18 Assessment and Plan (1) Crohns disease Narrative/Plan: The 2-year-old male with long standing history of Crohn's disease who presented to the emergency department a week ago with complaints of abdominal pain, increased diarrhea, weakness and weight loss. This a patient who has had multiple admissions for the abdominal pain and diarrhea. Possible Crohn's flare. Patient had a normal CRP but elevated sed rate CT of the abdomen and pelvis showed improvement in rectal wall thickening. Last EGD and colonoscopy 11/03/2021, colonoscopy revealed no evidence of active Crohn's. EGD showed anastomotic ulcer and gastritis. Patient currently on Humira every 2 weeks is due in 3 days. He has been on IV Solu-Medrol 40 mg daily, with some improvement in symptoms. Diarrhea was 8-10 times daily now improving, nonbloody. Patient with chronic anemia who received 3 units of blood during this admission. Will recommend continuing oral prednisone taper on discharge for outpatient follow-up with gastroenterology in 2 weeks. Current Visit: No Status: Acute Code(s): K50.90 - CROHN'S DISEASE, UNSPECIFIED, WITHOUT COMPLICATIONS SNOMED Code(s): 12609892 (2) Weakness Current Visit: Yes Status: Acute Code(s): R53.1 - WEAKNESS SNOMED Code(s): 62954515 (3) Abdominal pain Current Visit: No Status: Acute Code(s): R10.9 - UNSPECIFIED ABDOMINAL PAIN SNOMED Code(s): 41438860 (4) Diarrhea Current Visit: No Status: Acute Code(s): R19.7 - DIARRHEA, UNSPECIFIED SNOMED Code(s): 60953170 Plan: 1. Continue symptomatic and supportive care 2. Continue IV steroids and transition to oral 3. Recommend transitioning to oral pain medication as needed with IV pain medication only for severe pain 4. Continue current diet 5. Repeat CBC, transfuse for hemoglobin less than 7 6. Continue to ensure dietary supplement 3 times a day 7. No plans on endoscopic evaluation 8. Continue Protonix 40 mg daily for GI prophylaxis 9. Recommend judicial use of Excedrin 10. Patient cleared for discharge. Prednisone taper discussed with patient and sent to pharmacy. Consider outpatient small bowel capsule endoscopy. Thank you for this consultation, will continue to follow. Dr. Elizabeth Yancey I agree with the dictator's note, documented as a scribe by Stacey Mccoy.
[2022-07-19 15:42] VITALS: BP 157/66; PULSE 57; TEMP 98.3
--- NOTE | 2022-07-19 22:19 | DS ---
DISCHARGE SUMMARY FINAL DIAGNOSES: 1. Abdominal pain with acute Crohn disease, acute exacerbation. 2. Anemia. 3. History of Crohn disease. DISCHARGE DISPOSITION: The patient will be discharged in stable condition with guarded prognosis. HISTORY OF PRESENT ILLNESS: This is a 72-year-old gentleman admitted to the hospital with acute exacerbation. The patient was treated symptomatically, improved significantly. Gastroenterology cleared the patient for discharge. The patient is keen on going home. PHYSICAL EXAMINATION: VITAL SIGNS: Stable. CARDIOVASCULAR: S1, S2. ABDOMEN: Soft. NERVOUS SYSTEM: No focal deficits. DISCHARGE INSTRUCTIONS/MEDICATIONS: The patient will be discharged with Apresoline 25 mg b.i.d., Tylenol p.r.n., prednisone taper per Gastroenterology, Protonix 40 mg p.o. daily, and resume the rest of the home medications and follow up with Dr. Saldaña as recommended. Please refer to the medication reconciliation sheet for full list of medications. MMODL / IJN: [id number] /
== END 2022-07-19 16:28 | disposition home or self-care (01) | DRG 385 ==
LOC: EC 01:50 → 4SSUR 04:26
PROVIDERS: ADMIT Family Medicine; ATTEND Family Medicine
DX: K50.90 Crohn's disease, unspecified, without complications (principal); E43 Unspecified severe protein-calorie malnutrition; Z68.1 Body mass index [BMI] 19.9 or less, adult; F11.20 Opioid dependence, uncomplicated; I47.1 Supraventricular tachycardia; D50.9 Iron deficiency anemia, unspecified; E86.0 Dehydration; I10 Essential (primary) hypertension; I48.91 Unspecified atrial fibrillation; K21.9 Gastro-esophageal reflux disease without esophagitis; M06.9 Rheumatoid arthritis, unspecified; M10.9 Gout, unspecified; Z87.442 Personal history of urinary calculi; G43.909 Migraine, unspecified, not intractable, without status migrainosus; Z90.49 Acquired absence of other specified parts of digestive tract; Z20.822 Contact with and (suspected) exposure to COVID-19; Z91.041 Radiographic dye allergy status; N28.1 Cyst of kidney, acquired; Z79.899 Other long term (current) drug therapy; Z87.11 Personal history of peptic ulcer disease; Z90.3 Acquired absence of stomach [part of]; L40.9 Psoriasis, unspecified
CPT/HCPCS: 36415; 74176; 74270; 80053; 81003; 82150; 82272; 83516; 83540; 83550; 83605; 83690; 84134; 84443; 84484; 85025; 85027; 85610; 85652; 85730; 86140; 86850; 86900; 86901; 86920; 87045; 87046; 87324; 87328; 87329; 87493; 87636; 93005; 96374; 96375; 99285

== ENCOUNTER 2022-07-19 20:38 | Emergency (ER) | payer BC, MEDICARE ==
[2022-07-19 21:05] VITALS: TEMP 97.5
--- NOTE | 2022-07-19 23:40 | ED ---
General Adult HPI - General Source: patient, RN notes reviewed Mode of arrival: wheelchair Limitations: no limitations <Cynthia Antony - Last Filed: 07/19/22 23:40> <Balbir Portillo - Last Filed: 07/20/22 06:35> - General Chief complaint: Recheck/Abnormal Lab/Rx Stated complaint: Weakness Time Seen by Provider: 07/19/22 23:33 - History of Present Illness Initial comments: Patient is a 72-year-old male who presents to the emergency department for abdominal pain. Patient was discharged from our hospital today for Crohn's flareup. Patient states he was feeling better at discharge but shortly after began having abdominal pain and joint pain. Patient has nausea without vomiting. No fever, chills. He also complains of sharp chest pain that began this afternoon. He denies shortness of breath, palpitations, dizziness, lightheadedness. Patient does have history of atrial fibrillation, SVT, hypertension. He is not on blood thinners. (Cynthia Antony) This is a 72-year-old male with a past medical history including Crohn's disease and chronic abdominal pain with nausea and vomiting presents emergency department for abdominal pain. The patient stated that he was discharged from the hospital for the exact same complaint earlier in the day. The patient stated that he was discharged home and then had a large meal including deep fried fish and then stated that he had continued nausea and vomiting abdominal pain. The patient stated that because the symptoms were persistent and happen once again, he came back to the emergency department. The patient reported that he had body aches and chills as well as "rolling" abdominal pain. The patient stated that he took his medications but stated "I don't know why he feeling like this is been like this forever." The patient denied any new trauma or any new complaints currently. (Balbir Portillo) - Related Data Home Medications Medication Instructions Recorded Confirmed Orphenadrine Citrate [Orphenadrine 100 mg PO BID 12/08/17 07/12/22 Citrate ER] Febuxostat [Uloric] 80 mg PO DAILY 05/05/18 07/12/22 amLODIPine [Norvasc] 10 mg PO DAILY 10/18/20 07/12/22 [id number] 2 tab PO DAILY 07/12/22 07/12/22 [Excedrin] Previous Rx's Medication Instructions Recorded Acetaminophen Tab [Tylenol] 650 mg PO Q6HR PRN tab 07/19/22 Pantoprazole Sodium [Protonix] 40 mg PO DAILY #14 tab 07/19/22 hydrALAZINE HCL [Apresoline] 25 mg PO BID #60 tab 07/19/22 predniSONE 0 mg PO DIRECTED #126 tab 07/19/22 Dicyclomine [Bentyl] 10 mg PO TID #30 capsule 07/20/22 Allergies Allergy/AdvReac Type Severity Reaction Status Date / Time Iodinated Contrast Media Allergy Anaphylaxis Verified 07/19/22 21:05 [Iodinated Contrast Media - IV Dye] Review of Systems ROS Other: All systems not noted in ROS Statement are negative. <Cynthia Antony - Last Filed: 07/19/22 23:40> ROS Other: All systems not noted in ROS Statement are negative. <Balbir Portillo - Last Filed: 07/20/22 06:35> ROS Statement: Those systems with pertinent positive or pertinent negative responses have been documented in the HPI. Past Medical History Past Medical History: Atrial Fibrillation, GERD/Reflux, Hypertension, Rheumatoid Arthritis (RA), Skin Disorder, Supraventricular Tachycardia (SVT) Additional Past Medical History / Comment(s): hx CROHN'S (takes tresa), IBS, chronic diarrhea, migraines-, hx ulcers, anemia, gout, kidney stones, psoriasis, bilateral tinnitis., pinched sciatic nerve, C-Diff 2017, neuropathy History of Any Multi-Drug Resistant Organisms: C-DIFF Date of last positivie culture/infection: stool MDRO Source:: 2017 Past Surgical History: Bowel Resection, Cardiac Ablation, Cholecystectomy, Heart Catheterization, Hernia Repair, Orthopedic Surgery, Tonsillectomy Additional Past Surgical History / Comment(s): 1/3 of stomach removed (partial gastrectomy), ulcers, bowel resections, fecal transplant 2017, bilateral knee arthroscopic surgery, EGD/colonoscopies, R inguinal hernia repair, bilat cataract removal, Past Anesthesia/Blood Transfusion Reactions: Blood Transfusion Reaction, Motion Sickness Additional Past Anesthesia/Blood Transfusion Reaction / Comment(s): BLOOD TRANSFUSION- BROKE OUT IN [place]ES age 21 Past Psychological History: Anxiety Smoking Status: Never smoker Past Alcohol Use History: None Reported Past Drug Use History: None Reported - Past Family History Mother Family Medical History: Pulmonary Embolus Additional Family Medical History / Comment(s): AGE 73-[place], STROKE DURING CARATID PROCEDURE <Cynthia Antony - Last Filed: 07/19/22 23:40> General Exam Limitations: no limitations Cardiovascular Exam: Present: tachycardia, irregular rhythm. Absent: regular rate, normal rhythm <Cynthia Antony - Last Filed: 07/19/22 23:40> Limitations: no limitations General appearance: alert, in no apparent distress Head exam: Present: atraumatic, normocephalic, normal inspection Eye exam: Present: normal appearance, PERRL Pupils: Present: normal accommodation ENT exam: Present: normal exam, normal oropharynx, mucous membranes moist Neck exam: Present: normal inspection, full ROM Respiratory exam: Present: normal lung sounds bilaterally Cardiovascular Exam: Present: tachycardia, irregular rhythm GI/Abdominal exam: Present: soft, tenderness (Mild tenderness of patient all quadrants however when distracted was not having tenderness.), normal bowel sounds Extremities exam: Present: normal inspection, full ROM Back exam: Present: normal inspection, full ROM Neurological exam: Present: alert, oriented X3, CN II-XII intact Psychiatric exam: Present: normal affect, normal mood Skin exam: Present: warm, dry <Balbir Portillo - Last Filed: 07/20/22 06:35> Course Vital Signs 07/19/22 07/20/22 07/20/22 20:59 02:32 03:00 Temperature 97.5 F L Pulse Rate 119 H 77 78 Respiratory 20 16 16 Rate Blood Pressure 155/96 178/96 167/124 O2 Sat by Pulse 98 97 99 Oximetry 07/20/22 07/20/22 07/20/22 03:30 04:00 04:30 Temperature Pulse Rate 77 82 67 Respiratory 16 16 16 Rate Blood Pressure 172/97 190/124 168/90 O2 Sat by Pulse 98 99 98 Oximetry 07/20/22 07/20/22 05:00 05:40 Temperature Pulse Rate 68 74 Respiratory 16 16 Rate Blood Pressure 178/88 117/80 O2 Sat by Pulse 98 98 Oximetry EKG Findings - EKG Comments: EKG Findings:: Visual Physical Exam. Vital signs reviewed-EKG obtained promptly. General: Well-appearing, nontoxic, no acute distress. Head: Normocephalic, atraumatic. Eyes: PERRLA, EOMI. ENT: Airway patent. Chest: Nonlabored breathing. Skin: No visual rash, normal skin tone. Neuro: Alert and oriented 3. Musculoskeletal: No gross abnormalities <Cynthia Antony - Last Filed: 07/19/22 23:40> - EKG Comments: EKG Findings:: In EKG was obtained and was interpreted by myself showing a rate of 98, QRS duration of 134, QTC of 427. This EKG showed atrial fibrillation with a right bundle branch block similar to his previous EKG on 07/12/2022. There was no ST segment elevation or depression noted. <Balbir Portillo - Last Filed: 07/20/22 06:35> Medical Decision Making - Lab Data Result diagrams: 07/20/22 00:07 07/20/22 00:07 <Balbir Portillo - Last Filed: 07/20/22 06:35> - Medical Decision Making Was pt. sent in by a medical professional or institution (, PA, MOLECULAR PATHOLOGIST, urgent care, hospital, or halfway...) When possible be specific @ -No Did you speak to anyone other than the patient for history (EMS, parent, family, police, friend...)? What history was obtained from this source @ -No Did you review nursing and triage notes (agree or disagree)? Why? @ -I reviewed and agree with nursing and triage notes Were old charts reviewed (outside hosp., previous admission, EMS record, old EKG, old radiological studies, urgent care reports/EKG's, halfway records)? Report findings @ -Yes, old admission charts and consul charts were obtained and reviewed on the most recent admission. Differential Diagnosis (chest pain, altered mental status, abdominal pain women, abdominal pain men, vaginal bleeding, weakness, fever, dyspnea, syncope, headache, dizziness, GI bleed, back pain, seizure, CVA, palpatations, mental health)? @ -Intractable abdominal pain, nausea, vomiting, Crohn's flare EKG interpreted by me (3pts min.). @ -As above X-rays interpreted by me (1pt min.). @ -None done CT interpreted by me (1pt min.). @ -None done U/S interpreted by me (1pt. min.). @ -None done What testing was considered but not performed or refused? (CT, X-rays, U/S, labs)? Why? @ -A computed tomography scan was considered however the patient just had computed tomography scan performed on the last admission several days ago and had a follow-up with GI earlier that day. There was no rectal ideations for further imaging or testing therefore no other imaging was obtained at this time. What meds were considered but not given or refused? Why? @ -None Did you discuss the management of the patient with other professionals (professionals i.e. , PA, MOLECULAR PATHOLOGIST, lab, RT, psych nurse, criminal justice social worker, veterinary virologist, teacher, environmental protection officer, case folder)? Give summary @ -No Was smoking cessation discussed for >3mins.? @ -No Was critical care preformed (if so, how long)? @ -No Were there social determinants of health that impacted care today? How? (Homelessness, low income, unemployed, alcoholism, drug addiction, transportation, low edu. Level, literacy, decrease access to med. care, retirement, rehab)? @ -No Was there de-escalation of care discussed even if they declined (Discuss DNR or withdrawal of care, Hospice)? DNR status @ -No What co-morbidities impacted this encounter? (DM, HTN, Smoking, COPD, CAD, Cancer, CVA, ARF, Chemo, Hep., AIDS, mental health diagnosis, sleep apnea, morbid obesity)? @ -Chronic abdominal pain, Crohn's disease Was patient admitted / discharged? Hospital course, mention meds given and route, prescriptions, significant lab abnormalities, going to OR and other pertinent info. @ -The patient was seen and evaluated emergency department. Physical exam, the patient was resting in bed without any acute distress. The patient complained of generalized body aches, joint pain as well as continued "rolling" abdominal pain. The patient did have laboratory workup obtained in triage as well as a chest x-ray. All laboratory workup was within normal limits. Swabs were also obtained to rule out viral etiology. The patient is computed tomography scan performed on the previous admission 2 days ago as well as seen by GI earlier that day. The patient had some mild elevation of the white blood cell count at 17.6 but this is likely reactive to the patient's diarrhea that he exclaimed he had earlier in the day. The patient was given Zofran, fluids as well as Bentyl and a reevaluation stated that he had continued abdominal discomfort. The patient was advised that no further testing or workup would be obtained as the patient had a full workup performed over the last 1 week. The patient was advised to continue to follow-up with his private care physician and GI physicia n as previously scheduled and instructed. The patient was agreeable to this and did request to go home where he could try and get comfortable. The patient was given a prescription for Bentyl to be taken at home. The patient and all his questions answered appropriately and was discharged home in stable condition. Undiagnosed new problem with uncertain prognosis? @ -No Drug Therapy requiring intensive monitoring for toxicity (Heparin, Nitro, Insulin, Cardizem)? @ -No Were any procedures done? @ -No Diagnosis/symptom? @ -Abdominal pain, nausea, vomiting Acute, or Chronic, or Acute on Chronic? @ -Chronic Uncomplicated (without systemic symptoms) or Complicated (systemic symptoms)? @ -Complicated Side effects of treatment? @ -No Exacerbation, Progression, or Severe Exacerbation? @ -No Poses a threat to life or bodily function? How? (Chest pain, [place], [place], pneumonia, PE, COPD, DKA, ARF, appy, cholecystitis, CVA, Diverticulitis, Homicidal, Suicidal, threat to staff... and all critical care pts) @ -No (Balbir Portillo) - Lab Data Lab Results 07/20/22 07/20/22 07/20/22 Range/Units 00:07 00:07 00:07 WBC 17.6 H (3.8-10.6) k/uL RBC 4.43 (4.30-5.90) m/uL Hgb 10.9 L (13.0-17.5) gm/dL Hct 35.1 L (39.0-53.0) % MCV 79.2 L (80.0-100.0) fL MCH 24.7 L (25.0-35.0) pg MCHC 31.1 (31.0-37.0) g/dL RDW 16.4 H (11.5-15.5) % Plt Count 241 (150-450) k/uL MPV 7.5 Neutrophils % 93 % Lymphocytes % 4 % Monocytes % 2 % Eosinophils % 0 % Basophils % 0 % Neutrophils # 16.4 H (1.3-7.7) k/uL Lymphocytes # 0.7 L (1.0-4.8) k/uL Monocytes # 0.4 (0-1.0) k/uL Eosinophils # 0.0 (0-0.7) k/uL Basophils # 0.0 (0-0.2) k/uL Hypochromasia Slight Poikilocytosis Slight Anisocytosis Slight PT 11.1 (9.0-12.0) sec INR 1.1 (<1.2) APTT 22.1 (22.0-30.0) sec Sodium (137-145) mmol/L Potassium (3.5-5.1) mmol/L Chloride (98-107) mmol/L Carbon Dioxide (22-30) mmol/L Anion Gap mmol/L BUN (9-20) mg/dL Creatinine (0.66-1.25) mg/dL Est GFR (CKD-EPI)AfAm (>60 ml/min/1.73 sqM) Est GFR (CKD-EPI)NonAf (>60 ml/min/1.73 sqM) Glucose (74-99) mg/dL Plasma Lactic Acid Kal (0.7-2.0) mmol/L Calcium (8.4-10.2) mg/dL Total Bilirubin (0.2-1.3) mg/dL AST (17-59) U/L ALT (4-49) U/L Alkaline Phosphatase (38-126) U/L Troponin I (0.000-0.034) ng/mL Total Protein (6.3-8.2) g/dL Albumin (3.5-5.0) g/dL Lipase (23-300) U/L Urine Color Colorless Urine Appearance Clear (Clear) Urine pH 5.5 (5.0-8.0) Ur Specific Faulkner 1.008 (1.001-1.035) Urine Protein Negative (Negative) Urine Glucose (UA) Negative (Negative) Urine Ketones Negative (Negative) Urine Blood Negative (Negative) Urine Nitrite Negative (Negative) Urine Bilirubin Negative (Negative) Urine Urobilinogen <2.0 (<2.0) mg/dL Ur Leukocyte Esterase Negative (Negative) Influenza Type A (PCR) (Not Detectd) Influenza Type B (PCR) (Not Detectd) RSV (PCR) (Not Detectd) SARS-CoV-2 (PCR) (Not Detectd) 07/20/22 07/20/22 07/20/22 Range/Units 00:07 00:07 00:07 WBC (3.8-10.6) k/uL RBC (4.30-5.90) m/uL Hgb (13.0-17.5) gm/dL Hct (39.0-53.0) % MCV (80.0-100.0) fL MCH (25.0-35.0) pg MCHC (31.0-37.0) g/dL RDW (11.5-15.5) % Plt Count (150-450) k/uL MPV Neutrophils % % Lymphocytes % % Monocytes % % Eosinophils % % Basophils % % Neutrophils # (1.3-7.7) k/uL Lymphocytes # (1.0-4.8) k/uL Monocytes # (0-1.0) k/uL Eosinophils # (0-0.7) k/uL Basophils # (0-0.2) k/uL Hypochromasia Poikilocytosis Anisocytosis PT (9.0-12.0) sec INR (<1.2) APTT (22.0-30.0) sec Sodium 134 L (137-145) mmol/L Potassium 4.8 (3.5-5.1) mmol/L Chloride 106 (98-107) mmol/L Carbon Dioxide 18 L (22-30) mmol/L Anion Gap 10 mmol/L BUN 33 H (9-20) mg/dL Creatinine 1.14 (0.66-1.25) mg/dL Est GFR (CKD-EPI)AfAm 74 (>60 ml/min/1.73 sqM) Est GFR (CKD-EPI)NonAf 64 (>60 ml/min/1.73 sqM) Glucose 172 H (74-99) mg/dL Plasma Lactic Acid Kal 1.6 (0.7-2.0) mmol/L Calcium 8.5 (8.4-10.2) mg/dL Total Bilirubin 0.9 (0.2-1.3) mg/dL AST 45 (17-59) U/L ALT 66 H (4-49) U/L Alkaline Phosphatase 66 (38-126) U/L Troponin I 0.020 (0.000-0.034) ng/mL Total Protein 7.0 (6.3-8.2) g/dL Albumin 3.5 (3.5-5.0) g/dL Lipase 107 (23-300) U/L Urine Color Urine Appearance (Clear) Urine pH (5.0-8.0) Ur Specific Faulkner (1.001-1.035) Urine Protein (Negative) Urine Glucose (UA) (Negative) Urine Ketones (Negative) Urine Blood (Negative) Urine Nitrite (Negative) Urine Bilirubin (Negative) Urine Urobilinogen (<2.0) mg/dL Ur Leukocyte Esterase (Negative) Influenza Type A (PCR) (Not Detectd) Influenza Type B (PCR) (Not Detectd) RSV (PCR) (Not Detectd) SARS-CoV-2 (PCR) (Not Detectd) 07/20/22 Range/Units 04:06 WBC (3.8-10.6) k/uL RBC (4.30-5.90) m/uL Hgb (13.0-17.5) gm/dL Hct (39.0-53.0) % MCV (80.0-100.0) fL MCH (25.0-35.0) pg MCHC (31.0-37.0) g/dL RDW (11.5-15.5) % Plt Count (150-450) k/uL MPV Neutrophils % % Lymphocytes % % Monocytes % % Eosinophils % % Basophils % % Neutrophils # (1.3-7.7) k/uL Lymphocytes # (1.0-4.8) k/uL Monocytes # (0-1.0) k/uL Eosinophils # (0-0.7) k/uL Basophils # (0-0.2) k/uL Hypochromasia Poikilocytosis Anisocytosis PT (9.0-12.0) sec INR (<1.2) APTT (22.0-30.0) sec Sodium (137-145) mmol/L Potassium (3.5-5.1) mmol/L Chloride (98-107) mmol/L Carbon Dioxide (22-30) mmol/L Anion Gap mmol/L BUN (9-20) mg/dL Creatinine (0.66-1.25) mg/dL Est GFR (CKD-EPI)AfAm (>60 ml/min/1.73 sqM) Est GFR (CKD-EPI)NonAf (>60 ml/min/1.73 sqM) Glucose (74-99) mg/dL Plasma Lactic Acid Kal (0.7-2.0) mmol/L Calcium (8.4-10.2) mg/dL Total Bilirubin (0.2-1.3) mg/dL AST (17-59) U/L ALT (4-49) U/L Alkaline Phosphatase (38-126) U/L Troponin I (0.000-0.034) ng/mL Total Protein (6.3-8.2) g/dL Albumin (3.5-5.0) g/dL Lipase (23-300) U/L Urine Color Urine Appearance (Clear) Urine pH (5.0-8.0) Ur Specific Fa[place]ner (1.001-1.035) Urine Protein (Negative) Urine Glucose (UA) (Negative) Urine Ketones (Negative) Urine Blood (Negative) Urine Nitrite (Negative) Urine Bilirubin (Negative) Urine Urobilinogen (<2.0) mg/dL Ur Leukocyte Esterase (Negative) Influenza Type A (PCR) Not Detected (Not Detectd) Influenza Type B (PCR) Not Detected (Not Detectd) RSV (PCR) Not Detected (Not Detectd) SARS-CoV-2 (PCR) Not Detected (Not Detectd) Disposition <Cynthia Antony - Last Filed: 07/19/22 23:40> Is patient prescribed a controlled substance at d/c from ED?: No Time of Disposition: 05:15 <Balbir Portillo - Last Filed: 07/20/22 06:35> Clinical Impression: Abdominal pain, Crohns disease Disposition: HOME SELF-CARE Condition: Stable Instructions (If sedation given, give patient instructions): Abdominal Pain (E D) Prescriptions: Dicyclomine [Bentyl] 10 mg PO TID #30 capsule Referrals: Minh Saldaña MD [Primary Care Provider] - 1-2 days Laura Yancey MD [STAFF PHYSICIAN] - 1-2 days
[2022-07-20 01:00] LABS: Anisocytosis Slight; Basophils % (A) 0 %; Eosinophils % (A) 0 %; HCT 35.1 % (39.0-53.0); HGB 10.9 gm/dL (13.0-17.5); Hypochromasia Slight; Lymphocytes # (A) 0.7 k/uL (1.0-4.8); Lymphocytes % (A) 4 %; MCH 24.7 pg (25.0-35.0); MCHC 31.1 g/dL (31.0-37.0); MCV 79.2 fL (80.0-100.0); Mean Platelet Volume 7.5; Monocytes # (A) 0.4 k/uL (0-1.0); Monocytes % (A) 2 %; Neutrophils # (A) 16.4 k/uL (1.3-7.7); Neutrophils % (A) 93 %; Platelet Count 241 k/uL (150-450); Poikilocytosis Slight; RBC 4.43 m/uL (4.30-5.90); RDW 16.4 % (11.5-15.5); WBC 17.6 k/uL (3.8-10.6)
[2022-07-20 01:04] LABS: Potassium 4.8 mmol/L (3.5-5.1)
[2022-07-20 01:06] LABS: Albumin 3.5 g/dL (3.5-5.0); Calcium 8.5 mg/dL (8.4-10.2); Total Bilirubin 0.9 mg/dL (0.2-1.3)
[2022-07-20 01:10] LABS: INR 1.1 (<1.2); Partial Thromboplastin Time 22.1 sec (22.0-30.0); Prothrombin Time 11.1 sec (9.0-12.0)
[2022-07-20 01:19] LABS: Appearance,Urine Clear (Clear); Bilirubin,Urine Negative (Negative); Blood,Urine Negative (Negative); Color,Urine Colorless; Glucose,Urine (UA) Negative (Negative); Ketones,Urine Negative (Negative); Leukocyte Esterase,Urine Negative (Negative); Nitrite,Urine Negative (Negative); PH, Urine 5.5 (5.0-8.0); Protein,Urine Negative (Negative); Specific Gravity,Urine 1.008 (1.001-1.035); Urobilinogen,Urine <2.0 mg/dL (<2.0)
[2022-07-20 02:37] VITALS: RESP 16
--- NOTE | 2022-07-20 03:15 | XR ---
EXAM: XR Chest, 2 Views CLINICAL HISTORY: ITS.REASON XR Reason: chest pain TECHNIQUE: Frontal and lateral views of the chest. COMPARISON: No relevant prior studies available. FINDINGS: Lungs: No consolidation or mass. Right lung granuloma. Pleural space: No effusion. Heart: No cardiomegaly. Bones/joints: No acute findings. IMPRESSION: No acute cardiopulmonary process.
[2022-07-20] MEDS ORDERED: ONDANSETRON 4 MG/2 ML VIAL IVP STA (03:47)
[2022-07-20] MEDS ORDERED: amLODIPine 10 MG TAB PO STA (03:47)
[2022-07-20] MEDS ORDERED: SODIUM CHLORIDE 0.9% 1,000 ML IV ONE (03:47)
[2022-07-20] MEDS ORDERED: DICYCLOMINE 10 MG/ML 2 ML AMP IM STA (05:27)
[2022-07-20 05:41] VITALS: BP 117/80; PULSE 74
== END 2022-07-20 05:40 | disposition home or self-care (01) ==
LOC: EC 20:38
DX: K50.90 Crohn's disease, unspecified, without complications (principal); I10 Essential (primary) hypertension; M10.9 Gout, unspecified; Z20.822 Contact with and (suspected) exposure to COVID-19; Z91.041 Radiographic dye allergy status; Z90.49 Acquired absence of other specified parts of digestive tract; Z79.82 Long term (current) use of aspirin; Z79.899 Other long term (current) drug therapy; Z95.5 Presence of coronary angioplasty implant and graft; Z90.89 Acquired absence of other organs; Z87.442 Personal history of urinary calculi
CPT/HCPCS: 36415; 93005; 80053; 83605; 83690; 84484; 85025; 85610; 85730; 81003; 87636; 71046; 99285; 96374; 96361; 96372; J0500; J2405

== ENCOUNTER → 2022-09-03 | Outpatient (CLI) | payer BC, MEDICARE ==
[2022-09-03 15:15] LABS: Basophils # (A) 0.07 X 10*3/uL (0.00-0.10); Basophils % (A) 1.1 %; Eosinophils # (A) 0.15 X 10*3/uL (0.04-0.35); Eosinophils % (A) 2.4 %; HCT 35.2 % (39.6-50.0); HGB 10.6 g/dL (13.0-17.0); Immature Grans, Automated 0.5 %; Lymphocytes # (A) 1.95 X 10*3/uL (0.90-5.00); MCH 29.2 pg (27.0-32.0); MCHC 30.1 g/dL (32.0-37.0); Mean Platelet Volume 11.4 fL (9.5-12.2); Monocytes # (A) 0.37 X 10*3/uL (0.20-1.00); Monocytes % (A) 5.9 %; NRBC Per 100 WBC 0 /100 WBCS (0.0-0.0); Neutrophils # (A) 3.72 X 10*3/uL (1.80-7.70); Neutrophils % (A) 59.1 %; Platelet Count 323 X 10*3/uL (140-440); RBC 3.63 X 10*6/uL (4.40-5.60); RDW 18.6 % (11.5-14.5); WBC 6.29 X 10*3/uL (4.50-10.00)
[2022-09-03 15:43] LABS: % Iron Saturation 34.21 (15.00-50.00); African American GFR (CKD) 68.9 (60.0-200.0); Albumin 3.1 g/dL (3.8-4.9); Albumin/Globulin Ratio 1.18 (1.60-3.17); Anion Gap 11.7 mmol/L (10.00-18.00); BUN/Creat Ratio 21.82 Ratio (12.00-20.00); Blood Urea Nitrogen 26.4 mg/dL (9.0-27.0); Calcium 8.5 mg/dL (8.7-10.3); Carbon Dioxide 16.8 mmol/L (20.0-27.5); Ferritin 42.9 ng/mL (22.0-322.0); Globulin 2.6 g/dL (1.6-3.3); Non-African American GFR(CKD) 59.5 (60.0-200.0); Potassium 4.5 mmol/L (3.5-5.5); Total Bilirubin 0.3 mg/dL (0.30-1.20); Total Protein 5.7 g/dL (6.2-8.2)
== END | disposition home or self-care (01) ==
LOC: LABWHC1 08:53
PROVIDERS: ATTEND Internal Medicine Gastroenterology
DX: K52.9 Noninfective gastroenteritis and colitis, unspecified (principal)
CPT/HCPCS: 36415; 80053; 82607; 82656; 82728; 82746; 83540; 83550; 85025

== ENCOUNTER 2022-12-01 14:14 | Emergency (ER) | payer BC, MEDICARE ==
[2022-12-01] MEDS ORDERED: ONDANSETRON 4 MG/2 ML VIAL IVP STA (15:24)
[2022-12-01] MEDS ORDERED: PANTOPRAZOLE 40 MG/10 ML VIAL IVP STA (15:24)
[2022-12-01] MEDS ORDERED: SODIUM CHLORIDE 0.9% 1,000 ML IV STA (15:24)
[2022-12-01] MEDS ORDERED: MORPHINE SULFATE 4 MG/ML SYRINGE IVP STA ×2 (15:25→17:26)
[2022-12-01 15:37] LABS: Basophils % (A) 0 %; Eosinophils # (A) 0.2 k/uL (0-0.7); Eosinophils % (A) 3 %; HCT 29.5 % (39.0-53.0); HGB 9.1 gm/dL (13.0-17.5); Hypochromasia Marked; Lymphocytes # (A) 1.7 k/uL (1.0-4.8); Lymphocytes % (A) 22 %; MCH 32.5 pg (25.0-35.0); MCHC 30.8 g/dL (31.0-37.0); MCV 105.4 fL (80.0-100.0); Macrocytosis Moderate; Mean Platelet Volume 9.1; Monocytes # (A) 0.3 k/uL (0-1.0); Monocytes % (A) 4 %; Neutrophils # (A) 5.3 k/uL (1.3-7.7); Neutrophils % (A) 69 %; Platelet Count 199 k/uL (150-450); RDW 14.1 % (11.5-15.5); WBC 7.6 k/uL (3.8-10.6)
--- NOTE | 2022-12-01 15:45 | ED ---
General Adult HPI - General Chief complaint: Abdominal Pain Stated complaint: Abd Pain Time Seen by Provider: 12/01/22 15:10 Source: patient, RN notes reviewed, old records reviewed Mode of arrival: ambulatory Limitations: no limitations - History of Present Illness Initial comments: Patient is a 72-year-old male who presents emergency Department complaining of abdominal pain. Has no some weight loss as well. Abdominal pain has been ongoing for multiple days. Has been unable to tolerate oral intake as he has nausea and vomiting immediately afterwards. He is also complaining of his normal diarrhea as well as Crohn's disease, and noticed 1 episode of slightly darker stool 2 days ago which has not been recurrent. Has been normal brown simvastatin. 2 days ago stool was not tarry black, not dark red like melanotic, but was darker brown. He is not on blood thinners. Denies any dysuria or hematuria. Denies any hematochezia. Denies any hematemesis. Denies chest pain or shortness of breath. States he feels dehydrated. Unknown was causing his current symptoms. Does follow up with Dr. Yancey outpatient. Is on Humira for his Crohn's disease. Presents for further evaluation at this time. Does have a history of 5 feet of bowel removal secondary to his Crohn's disease.Patient describes his abdominal pain is achy, cramping that is generalized. Slightly more local periumbilically. - Related Data Home Medications Medication Instructions Recorded Confirmed Orphenadrine Citrate [Orphenadrine 100 mg PO BID 12/08/17 08/25/22 Citrate ER] Febuxostat [Uloric] 80 mg PO DAILY 05/05/18 08/25/22 amLODIPine [Norvasc] 10 mg PO DAILY 10/18/20 08/25/22 Adalimumab [Humira(Cf) Pen] 40 mg SQ Q14D 08/16/22 08/25/22 Buprenorphine HCl/Naloxone HCl 2 film SL DAILY 08/16/22 08/25/22 [Suboxone 2 mg-0.5 mg Sl Film] Naloxone HCl [Narcan] 4 mg NASAL ONCE PRN 08/16/22 08/25/22 Previous Rx's Medication Instructions Recorded Acetaminophen Tab [Tylenol] 650 mg PO Q6HR PRN tab 07/19/22 Omeprazole [PriLOSEC] 40 mg PO -BRKFST #90 cap 08/19/22 Sucralfate [Carafate] 1 gm PO ACHS #120 tab 08/19/22 Allergies Allergy/AdvReac Type Severity Reaction Status Date / Time Iodinated Contrast Media Allergy Anaphylaxis Verified 12/01/22 14:36 [Iodinated Contrast Media - IV Dye] Review of Systems ROS Statement: Those systems with pertinent positive or pertinent negative responses have been documented in the HPI. Review of Systems: CONST: Denies fever EYES: Denies blurry vision ENT: Denies nasal congestion C/V: Denies Chest pain RESP: Denies shortness of breath GI: Endorses generalized abdominal pain : Denies dysuria SKIN: Denies rash. MSK: Denies joint pain. NEURO: Denies headache ROS Other: All systems not noted in ROS Statement are negative. Past Medical History Past Medical History: Atrial Fibrillation, GERD/Reflux, Hypertension, Rheumatoid Arthritis (RA), Skin Disorder, Supraventricular Tachycardia (SVT) Additional Past Medical History / Comment(s): hx CROHN'S (takes tresa), IBS, chronic diarrhea, migraines-, hx ulcers, anemia, gout, kidney stones, psoriasis, bilateral tinnitis., pinched sciatic nerve, C-Diff 2017, neuropathy History of Any Multi-Drug Resistant Organisms: C-DIFF Date of last positivie culture/infection: stool MDRO Source:: 2017 Past Surgical History: Bowel Resection, Cardiac Ablation, Cholecystectomy, Heart Catheterization, Hernia Repair, Orthopedic Surgery, Tonsillectomy Additional Past Surgical History / Comment(s): 1/3 of stomach removed (partial gastrectomy), ulcers, bowel resections, fecal transplant 2017, bilateral knee arthroscopic surgery, EGD/colonoscopies, R inguinal hernia repair, bilat cataract removal, Past Anesthesia/Blood Transfusion Reactions: Blood Transfusion Reaction, Motion Sickness Additional Past Anesthesia/Blood Transfusion Reaction / Comment(s): BLOOD TRANSFUSION- BROKE OUT IN [place] age 21 Past Psychological History: Anxiety Smoking Status: Never smoker Past Alcohol Use History: None Reported Past Drug Use History: None Reported - Past Family History Mother Family Medical History: Pulmonary Embolus Additional Family Medical History / Comment(s): AGE 73[place], STROKE DURING CARATID PROCEDURE General Exam Limitations: no limitations Course Vital Signs 12/01/22 12/01/22 14:34 18:48 Temperature 99.3 F 98.2 F Pulse Rate 65 94 Respiratory 20 18 Rate Blood Pressure 115/61 167/66 O2 Sat by Pulse 98 97 Oximetry Medical Decision Making - Medical Decision Making Was pt. sent in by a medical professional or institution (HOME Lou, CAGE SHIFT MANAGER, urgent care, hospital, or [facility]...) When possible be specific @ -No Did you speak to anyone other than the patient for history (EMS, parent, family, police, friend...)? What history was obtained from this source @ -No Did you review nursing and triage notes (agree or disagree)? Why? @ -I reviewed and agree with nursing and triage notes Were old charts reviewed (outside hosp., previous admission, EMS record, old EKG, old radiological studies, urgent care reports/EKG's, [facility] records)? Report findings @ -No old charts were reviewed Differential Diagnosis (chest pain, altered mental status, abdominal pain women, abdominal pain men, vaginal bleeding, weakness, fever, dyspnea, syncope, headache, dizziness, GI bleed, back pain, seizure, CVA, palpatations, mental health, musculoskeletal)? @ -Differential Abdominal Pain Men: Appendicitis, cholecystitis, diverticulosis, ischemic bowel, pancreatitis, hepatitis, UTI, gastroenteritis, AAA, incarcerated hernia, bowel obstruction, constipation, inflammatory bowel, hepatitis, peptic ulcer disease, splenic infarction, perforated viscus, testicular torsion, this is not meant to be an all-inclusive list EKG interpreted by me (3pts min.). @ -As above X-rays interpreted by me (1pt min.). @ -Chest x-ray shows no obvious acute cardio pulmonary process. CT interpreted by me (1pt min.). @ -CT imaging reveals known Crohn's disease with no obvious acute intra- abdominal process. Radiologist states possible ileus however patient is having normal bowel movements. U/S interpreted by me (1pt. min.). @ -None done What testing was considered but not performed or refused? (CT, X-rays, U/S, labs)? Why? @ -None What meds were considered but not given or refused? Why? @ -None Did you discuss the management of the patient with other professionals (professionals i.e. HOME Lou, CAGE SHIFT MANAGER, lab, RT, psych nurse, elementary school social worker, online retailer, teacher, contracting officer, family caseworker)? Give summary @ -No Was smoking cessation discussed for >3mins.? @ -No Was critical care preformed (if so, how long)? @ -No Were there social determinants of health that impacted care today? How? (Homelessness, low income, unemployed, alcoholism, drug addiction, transportation, low edu. Level, literacy, decrease access to med. care, half-way, rehab)? @ -No Was there de-escalation of care discussed even if they declined (Discuss DNR or withdrawal of care, Hospice)? DNR status @ -No What co-morbidities impacted this encounter? (DM, HTN, Smoking, COPD, CAD, Cancer, CVA, ARF, Chemo, Hep., AIDS, mental health diagnosis, sleep apnea, morbid obesity)? @ -Crohn's disease Was patient admitted / discharged? Hospital course, mention meds given and route, prescriptions, significant lab abnormalities, going to OR and other pertinent info. @ -Based on the patient's presentation and physical exam, I'm concerned for acute intra-abdominal process for his current symptoms which have been ongoing for multiple days. We will obtain abdominal laboratory studies, CT imaging of the abdomen and pelvis without contrast as he is ALLERGIC to contrast media. We'll also obtain infectious labs for COVID-19. He was in agreement this plan. He'll be symptomatically treated with IV fluids, Zofran, Protonix as well as morphine for pain control. Imaging is unremarkable. Labs show a chronic anemia with a hemoglobin of 9.1 which is stable for the patient. Remainder the labs are relatively unremarkable. Slightly elevated nonspecific amylase. On reevaluation, patient is feeling improved. We did discuss possible admission and observation which was offered however he declines. Like to attempt to go home as he does have follow-up with Dr. Yancey next week. I believe this is reasonable. He will be given starter packs of Tylenol threes and Zofran for home. He was in agreement this plan. I instructed the patient to follow up with their PCP in the next 1-3 days. I explained that the patient should return to the emergency department if they experience any worsening symptoms. Strict return precautions were discussed with the patient. The patient expressed understanding of these instructions. I a nswered all questions that the patient had. The patient was discharged home in good condition with their prescriptions and follow up information. Undiagnosed new problem with uncertain prognosis? @ -No Drug Therapy requiring intensive monitoring for toxicity (Heparin, Nitro, Insulin, Cardizem)? @ -No Were any procedures done? @ -No Diagnosis/symptom? @ -Abdominal pain of unknown etiology, history of Crohn's disease Acute, or Chronic, or Acute on Chronic? @ -Acute on chronic Uncomplicated (without systemic symptoms) or Complicated (systemic symptoms)? @ -Complicated Side effects of treatment? @ -none Exacerbation, Progression, or Severe Exacerbation] @ -no Poses a threat to life or bodily function? @ -no - Lab Data Result diagrams: 12/01/22 15:00 12/01/22 15:00 Lab Results 12/01/22 12/01/22 12/01/22 Range/Units 15:00 15:00 15:00 WBC 7.6 (3.8-10.6) k/uL RBC 2.80 L (4.30-5.90) m/uL Hgb 9.1 L (13.0-17.5) gm/dL Hct 29.5 L (39.0-53.0) % MCV 105.4 H (80.0-100.0) fL MCH 32.5 (25.0-35.0) pg MCHC 30.8 L (31.0-37.0) g/dL RDW 14.1 (11.5-15.5) % Plt Count 199 (150-450) k/uL MPV 9.1 Neutrophils % 69 % Lymphocytes % 22 % Monocytes % 4 % Eosinophils % 3 % Basophils % 0 % Neutrophils # 5.3 (1.3-7.7) k/uL Lymphocytes # 1.7 (1.0-4.8) k/uL Monocytes # 0.3 (0-1.0) k/uL Eosinophils # 0.2 (0-0.7) k/uL Basophils # 0.0 (0-0.2) k/uL Hypochromasia Marked Macrocytosis Moderate PT 11.8 (9.0-12.0) sec INR 1.1 (<1.2) APTT 22.8 (22.0-30.0) sec Sodium 136 L (137-145) mmol/L Potassium 4.4 (3.5-5.1) mmol/L Chloride 116 H (98-107) mmol/L Carbon Dioxide 11 L (22-30) mmol/L Anion Gap 9 mmol/L BUN 31 H (9-20) mg/dL Creatinine 1.17 (0.66-1.25) mg/dL Est GFR (CKD-EPI)AfAm 72 (>60 ml/min/1.73 sqM) Est GFR (CKD-EPI)NonAf 62 (>60 ml/min/1.73 sqM) Glucose 106 H (74-99) mg/dL Plasma Lactic Acid Kal (0.7-2.0) mmol/L Calcium 7.7 L (8.4-10.2) mg/dL Total Bilirubin 0.5 (0.2-1.3) mg/dL AST 41 (17-59) U/L ALT 33 (4-49) U/L Alkaline Phosphatase 73 (38-126) U/L Total Protein 6.0 L (6.3-8.2) g/dL Albumin 2.8 L (3.5-5.0) g/dL Amylase 114 H (30-110) U/L Lipase 37 (23-300) U/L Urine Color Urine Appearance (Clear) Urine pH (5.0-8.0) Ur Specific [place] (1.001-1.035) Urine Protein (Negative) Urine Glucose (UA) (Negative) Urine Ketones (Negative) Urine Blood (Negative) Urine Nitrite (Negative) Urine Bilirubin (Negative) Urine Urobilinogen (<2.0) mg/dL Ur Leukocyte Esterase (Negative) Influenza Type A (PCR) (Not Detectd) Influenza Type B (PCR) (Not Detectd) RSV (PCR) (Not Detectd) SARS-CoV-2 (PCR) (Not Detectd) Blood Type Blood Type Recheck Bld Type Recheck Status Antibody Screen Spec Expiration Date 12/01/22 12/01/22 12/01/22 Range/Units 15:00 15:25 16:45 WBC (3.8-10.6) k/uL RBC (4.30-5.90) m/uL Hgb (13.0-17.5) gm/dL Hct (39.0-53.0) % MCV (80.0-100.0) fL MCH (25.0-35.0) pg MCHC (31.0-37.0) g/dL RDW (11.5-15.5) % Plt Count (150-450) k/uL MPV Neutrophils % % Lymphocytes % % Monocytes % % Eosinophils % % Basophils % % Neutrophils # (1.3-7.7) k/uL Lymphocytes # (1.0-4.8) k/uL Monocytes # (0-1.0) k/uL Eosinophils # (0-0.7) k/uL Basophils # (0-0.2) k/uL Hypochromasia Macrocytosis PT (9.0-12.0) sec INR (<1.2) APTT (22.0-30.0) sec Sodium (137-145) mmol/L Potassium (3.5-5.1) mmol/L Chloride (98-107) mmol/L Carbon Dioxide (22-30) mmol/L Anion Gap mmol/L BUN (9-20) mg/dL Creatinine (0.66-1.25) mg/dL Est GFR (CKD-EPI)AfAm (>60 ml/min/1.73 sqM) Est GFR (CKD-EPI)NonAf (>60 ml/min/1.73 sqM) Glucose (74-99) mg/dL Plasma Lactic Acid Kal 0.8 (0.7-2.0) mmol/L Calcium (8.4-10.2) mg/dL Total Bilirubin (0.2-1.3) mg/dL AST (17-59) U/L ALT (4-49) U/L Alkaline Phosphatase (38-126) U/L Total Protein (6.3-8.2) g/dL Albumin (3.5-5.0) g/dL Amylase (30-110) U/L Lipase (23-300) U/L Urine Color Urine Appearance (Clear) Urine pH (5.0-8.0) Ur Specific [place] (1.001-1.035) Urine Protein (Negative) Urine Glucose (UA) (Negative) Urine Ketones (Negative) Urine Blood (Negative) Urine Nitrite (Negative) Urine Bilirubin (Negative) Urine Urobilinogen (<2.0) mg/dL Ur Leukocyte Esterase (Negative) Influenza Type A (PCR) Not Detected (Not Detectd) Influenza Type B (PCR) Not Detected (Not Detectd) RSV (PCR) Not Detected (Not Detectd) SARS-CoV-2 (PCR) Not Detected (Not Detectd) Blood Type A Negative Blood Type Recheck A Neg Bld Type Recheck Status No Antibody Screen NEGATIVE Spec Expiration Date 12/04/2022 - 234412/01/22 Range/Units 16:59 WBC (3.8-10.6) k/uL RBC (4.30-5.90) m/uL Hgb (13.0-17.5) gm/dL Hct (39.0-53.0) % MCV (80.0-100.0) fL MCH (25.0-35.0) pg MCHC (31.0-37.0) g/dL RDW (11.5-15.5) % Plt Count (150-450) k/uL MPV Neutrophils % % Lymphocytes % % Monocytes % % Eosinophils % % Basophils % % Neutrophils # (1.3-7.7) k/uL Lymphocytes # (1.0-4.8) k/uL Monocytes # (0-1.0) k/uL Eosinophils # (0-0.7) k/uL Basophils # (0-0.2) k/uL Hypochromasia Macrocytosis PT (9.0-12.0) sec INR (<1.2) APTT (22.0-30.0) sec Sodium (137-145) mmol/L Potassium (3.5-5.1) mmol/L Chloride (98-107) mmol/L Carbon Dioxide (22-30) mmol/L Anion Gap mmol/L BUN (9-20) mg/dL Creatinine (0.66-1.25) mg/dL Est GFR (CKD-EPI)AfAm (>60 ml/min/1.73 sqM) Est GFR (CKD-EPI)NonAf (>60 ml/min/1.73 sqM) Glucose (74-99) mg/dL Plasma Lactic Acid Kal (0.7-2.0) mmol/L Calcium (8.4-10.2) mg/dL Total Bilirubin (0.2-1.3) mg/dL AST (17-59) U/L ALT (4-49) U/L Alkaline Phosphatase (38-126) U/L Total Protein (6.3-8.2) g/dL Albumin (3.5-5.0) g/dL Amylase (30-110) U/L Lipase (23-300) U/L Urine Color Light Yellow Urine Appearance Clear (Clear) Urine pH 5.5 (5.0-8.0) Ur Specific [place] 1.015 (1.001-1.035) Urine Protein Negative (Negative) Urine Glucose (UA) Negative (Negative) Urine Ketones Negative (Negative) Urine Blood Negative (Negative) Urine Nitrite Negative (Negative) Urine Bilirubin Negative (Negative) Urine Urobilinogen <2.0 (<2.0) mg/dL Ur Leukocyte Esterase Negative (Negative) Influenza Type A (PCR) (Not Detectd) Influenza Type B (PCR) (Not Detectd) RSV (PCR) (Not Detectd) SARS-CoV-2 (PCR) (Not Detectd) Blood Type Blood Type Recheck Bld Type Recheck Status Antibody Screen Spec Expiration Date - EKG Data -: EKG Interpreted by Me EKG Comments: 12-lead Electrocardiogram Interpretation Note EKG was reviewed and interpreted by myself. 12-lead ECG performed at 1606 is interpreted by me as revealing sinus bradycardia with first-degree AV block at a rate of 48 beats per minute. [place] is normal. [place] interval is shortened 276 ms, QRS duration is 129 ms, QTc is 422 ms.. There were no ST or T wave abnormalit ies to suggest myocardial ischemia or injury. R wave progression across the precordium was satisfactory. By my interpretation this EKG is non-diagnostic for acute ischemia. When compared with EKG from August 2022, no significant change. Disposition Clinical Impression: Abdominal pain of unknown etiology, Crohns disease Disposition: HOME SELF-CARE Condition: Fair Instructions (If sedation given, give patient instructions): Abdominal Pain (ED) Is patient prescribed a controlled substance at d/c from ED?: No Referrals: Minh Saldaña MD [Primary Care Provider] - 1-2 days Laura Yancey MD [STAFF PHYSICIAN] - 1-2 days Time of Disposition: 18:15
[2022-12-01 15:46] LABS: ALT 33 U/L (4-49); AST 41 U/L (17-59); African American GFR (CKD) 72 (>60 ml/min/1.73 sqM); Albumin 2.8 g/dL (3.5-5.0); Alkaline Phosphatase 73 U/L (38-126); Amylase 114 U/L (30-110); Anion Gap 9 mmol/L; Blood Urea Nitrogen 31 mg/dL (9-20); Calcium 7.7 mg/dL (8.4-10.2); Carbon Dioxide 11 mmol/L (22-30); Chloride 116 mmol/L (98-107); Glucose 106 mg/dL (74-99); Lipase 37 U/L (23-300); Non-African American GFR(CKD) 62 (>60 ml/min/1.73 sqM); Potassium 4.4 mmol/L (3.5-5.1); Sodium 136 mmol/L (137-145); Total Bilirubin 0.5 mg/dL (0.2-1.3)
[2022-12-01 15:50] LABS: INR 1.1 (<1.2); Partial Thromboplastin Time 22.8 sec (22.0-30.0); Prothrombin Time 11.8 sec (9.0-12.0)
--- NOTE | 2022-12-01 16:56 | XR ---
EXAMINATION TYPE: XR chest 2V DATE OF EXAM: 12/01/2022 COMPARISON: 08/16/2022 INDICATION: Abdomen pain nausea vomiting TECHNIQUE: Frontal and lateral views of the chest are obtained. FINDINGS: The heart size is normal. The pulmonary vasculature is normal. There is a 0.7 cm nodule mid right lung. This appears stable and measurement error on the prior study . No suspicious consolidations are evident.. Hyperinflation with flattening of the diaphragms and in creased retrosternal airspace and AP diameter is present likely on the basis of COPD. IMPRESSION: 1. No acute pulmonary process. 2. COPD
[2022-12-01 17:15] LABS: Appearance,Urine Clear (Clear); Bilirubin,Urine Negative (Negative); Blood,Urine Negative (Negative); Color,Urine Light Yellow; Glucose,Urine (UA) Negative (Negative); Ketones,Urine Negative (Negative); Leukocyte Esterase,Urine Negative (Negative); Nitrite,Urine Negative (Negative); PH, Urine 5.5 (5.0-8.0); Protein,Urine Negative (Negative); Specific Gravity,Urine 1.015 (1.001-1.035); Urobilinogen,Urine <2.0 mg/dL (<2.0)
--- NOTE | 2022-12-01 18:17 | CT ---
EXAMINATION TYPE: CT abdomen pelvis wo con DATE OF EXAM: 12/01/2022 COMPARISON: 08/16/2022 INDICATION: abd pain, hx crohns DLP: 401.8 mGycm, Automated exposure control for dose reduction was used. CONTRAST: 0 mL of Isovue 300. Study performed without Oral Contrast TECHNIQUE: Axial images were obtained from above the diaphragm to the pubic rami in the axial plane a t 5 mm thick sections. Reconstructed images are reviewed on the computer in the coronal plane. FINDINGS: Limited CT sections are obtained the lung bases. The lung bases are clear. CT ABDOMEN: Liver: Normal Spleen: Normal Pancreas: Normal Adrenal glands: The adrenal glands are normal. Gallbladder: Surgically absent Kidneys: No masses are evident. No hydronephrosis is present. There is a 2.5 cm cyst in the posteri or right mid kidney. There are multiple nonobstructing renal stones present bilaterally. The largest renal stone on the right measures 1.0 cm. The largest calcification on the left at the inferior pole measures 1.1 cm. Aorta: Vascular calcification is within the aorta. Inferior vena cava: Normal. CT PELVIS: Loops of bowel within the abdomen and pelvis are normal. No significant fecal retention is eviden t. There are a few small bowel loops with fluid. No suspicious dilated loops of bowel. Appears to be fluid-filled terminal ileum without stenosis. Appendix: Not identified. No dilated tubular structure or inflammatory changes are evident. Urinary bladder: Normal. Genitourinary structures: Prostate appears normal. Osseous structures: No suspicious lytic or sclerotic lesions. Vascular calcification is present throughout the abdomen and pelvis. IMPRESSIONS: 1. Exam is somewhat limited due to lack of oral contrast and little intra-abdominal fat. No obvious changes for acute Crohn's disease. 2. Some mild ileus is not excluded. 3. Extensive nonobstructing bilateral renal stones
[2022-12-01] MEDS ORDERED: ACET/COD 300 MG/30 MG STARTER PACK 6 TAB BTL PO STA (18:34)
[2022-12-01] MEDS ORDERED: ONDANSETRON 4 MG ODT STARTER PACK 2 TAB BTL PO STA (18:34)
[2022-12-01 18:50] VITALS: BP 167/66; PULSE 94; RESP 18; TEMP 98.2
== END 2022-12-01 18:56 | disposition home or self-care (01) ==
LOC: EC 14:14
DX: K50.90 Crohn's disease, unspecified, without complications (principal); I44.0 Atrioventricular block, first degree; I48.91 Unspecified atrial fibrillation; I10 Essential (primary) hypertension; M06.9 Rheumatoid arthritis, unspecified; F41.9 Anxiety disorder, unspecified; Z91.041 Radiographic dye allergy status; Z79.899 Other long term (current) drug therapy; Z20.822 Contact with and (suspected) exposure to COVID-19
CPT/HCPCS: 96375 ×3; 96376 ×2; 96361 ×2; 96374 ×2; 99285 ×2; 36415; 93005; 86900; 86901; 80053; 82150; 83605; 83690; 85025; 85610; 85730; 86850; 81003; 87636; 71046; 74176; J2270; J2405; S0119; C9113

== ENCOUNTER 2022-12-24 12:11 | Observation (INO) | payer MEDICARE, BC ==
[2022-12-24] MEDS ORDERED: SODIUM CHLORIDE 0.9% 500 ML 500 ML IV STA (12:49)
[2022-12-24] MEDS ORDERED: KETOROLAC 15 MG/ML 1 ML VIAL IVP STA (12:50)
--- NOTE | 2022-12-24 12:54 | ED ---
General Adult HPI - General Chief complaint: Back Pain/Injury Stated complaint: kidney pain Time Seen by Provider: 12/24/22 12:30 Source: patient, RN notes reviewed, old records reviewed Mode of arrival: ambulatory Limitations: no limitations - History of Present Illness Initial comments: This is a 72-year-old male who presents to the emergency department complaining of 6 days of left CVA tenderness. Patient states he wanted to see his doctor they did some blood work and he said his kidney function was off. Patient states he had a CAT scan a few months ago and they told me quite a few stones in his kidneys. Patient states she has a little bit of dysuria but no hematuria. Patient denies any fever chills. Patient denies any nausea vomiting diarrhea per patient denies any chest pain difficulty breathing. - Related Data Home Medications Medication Instructions Recorded Confirmed Orphenadrine Citrate [Orphenadrine 100 mg PO BID 12/08/17 08/25/22 Citrate ER] Febuxostat [Uloric] 80 mg PO DAILY 05/05/18 08/25/22 amLODIPine [Norvasc] 10 mg PO DAILY 10/18/20 08/25/22 Adalimumab [Humira(Cf) Pen] 40 mg SQ Q14D 08/16/22 08/25/22 Buprenorphine HCl/Naloxone HCl 2 film SL DAILY 08/16/22 08/25/22 [Suboxone 2 mg-0.5 mg Sl Film] Naloxone HCl [Narcan] 4 mg NASAL ONCE PRN 08/16/22 08/25/22 Previous Rx's Medication Instructions Recorded Acetaminophen Tab [Tylenol] 650 mg PO Q6HR PRN tab 07/19/22 Omeprazole [PriLOSEC] 40 mg PO AC-BRKFST #90 cap 08/19/22 Sucralfate [Carafate] 1 gm PO ACHS #120 tab 08/19/22 Allergies Allergy/AdvReac Type Severity Reaction Status Date / Time Iodinated Contrast Media Allergy Anaphylaxis Verified 12/24/22 12:31 [Iodinated Contrast Media - IV Dye] Review of Systems ROS Statement: Those systems with pertinent positive or pertinent negative responses have been documented in the HPI. ROS Other: All systems not noted in ROS Statement are negative. Past Medical History Past Medical History: Atrial Fibrillation, GERD/Reflux, Hypertension, Rheumatoid Arthritis (RA), Skin Disorder, Supraventricular Tachycardia (SVT) Additional Past Medical History / Comment(s): hx CROHN'S (takes tresa), IBS, chronic diarrhea, migraines-, hx ulcers, anemia, gout, kidney stones, psoriasis, bilateral tinnitis., pinched sciatic nerve, C-Diff 2017, neuropathy History of Any Multi-Drug Resistant Organisms: C-DIFF Date of last positivie culture/infection: stool MDRO Source:: 2017 Past Surgical History: Bowel Resection, Cardiac Ablation, Cholecystectomy, Heart Catheterization, Hernia Repair, Orthopedic Surgery, Tonsillectomy Additional Past Surgical History / Comment(s): 1/3 of stomach removed (partial gastrectomy), ulcers, bowel resections, fecal transplant 2017, bilateral knee arthroscopic surgery, EGD/colonoscopies, R inguinal hernia repair, bilat cataract removal, Past Anesthesia/Blood Transfusion Reactions: Blood Transfusion Reaction, Motion Sickness Additional Past Anesthesia/Blood Transfusion Reaction / Comment(s): BLOOD TRANSFUSION- BROKE OUT IN HIVES age 21 Past Psychological History: Anxiety Smoking Status: Never smoker Past Alcohol Use History: None Reported Past Drug Use History: None Reported - Past Family History Mother Family Medical History: Pulmonary Embolus Additional Family Medical History / Comment(s): AGE 73-[place], STROKE DURING CARATID PROCEDURE General Exam - General Exam Comments Initial Comments: GENERAL: Patient is well-developed and well-nourished. Patient is nontoxic and well-hydr ated and is in mild distress. ENT: Neck is soft and supple. No significant lymphadenopathy is noted. Oropharynx is clear. Moist mucous membranes. Neck has full range of motion without eliciting any pain. EYES: The sclera were anicteric and conjunctiva were pink and moist. Extraocular movements were intact and pupils were equal round and reactive to light. Eyelids were unremarkable. PULMONARY: Unlabored respirations. Good breath sounds bilaterally. No audible rales rhonchi or wheezing was noted. CARDIOVASCULAR: There is a regular rate and rhythm without any murmurs gallops or rubs. ABDOMEN: Soft and nontender with normal bowel sounds. SKIN: Skin is clear with no lesions or rashes and otherwise unremarkable. NEUROLOGIC: Patient is alert and oriented x3. Cranial nerves II through XII are grossly intact. Motor and sensory are also intact. Normal speech, volume and content. Symmetrical smile. MUSCULOSKELETAL: Normal extremities with adequate strength and full range of motion. Positive CVA tenderness LYMPHATICS: No significant lymphadenopathy is noted PSYCHIATRIC: Normal psychiatric evaluation. Limitations: no limitations Course Vital Signs 12/24/22 12/24/22 12/24/22 12:29 13:14 14:09 Temperature 98.3 F Pulse Rate 85 68 57 L Respiratory 20 18 18 Rate Blood Pressure 120/75 152/67 O2 Sat by Pulse 99 98 97 Oximetry Medical Decision Making - Medical Decision Making Was pt. sent in by a medical professional or institution (, PA, REGROOVER, urgent care, hospital, or snf...) When possible be specific @ -Primary medical care doctor sent the patient and Did you speak to anyone other than the patient for history (EMS, parent, family, police, friend...)? What history was obtained from this source @ -No Did you review nursing and triage notes (agree or disagree)? Why? @ -I reviewed and agree with nursing and triage notes Were old charts reviewed (outside hosp., previous admission, EMS record, old EKG, old radiological studies, urgent care reports/EKG's, snf records)? Report findings @ -I reviewed prior lab work and prior charting on this patient Differential Diagnosis (chest pain, altered mental status, abdominal pain women, abdominal pain men, vaginal bleeding, weakness, fever, dyspnea, syncope, headache, dizziness, GI bleed, back pain, seizure, CVA, palpatations, mental health, musculoskeletal)? @ -Differential Abdominal Pain Men: Appendicitis, cholecystitis, diverticulosis, ischemic bowel, pancreatitis, hepatitis, UTI, gastroenteritis, AAA, incarcerated hernia, bowel obstruction, constipation, inflammatory bowel, hepatitis, peptic ulcer disease, splenic infarction, perforated viscus, testicular torsion, this is not meant to be an all-inclusive list EKG interpreted by me (3pts min.). @ -As above X-rays interpreted by me (1pt min.). @ -None done CT interpreted by me (1pt min.). @ -To the abdomen pelvis shows an 8 mm stone in the middle third of the ureter with hydroureter but no significant hydroureter nephrosis. U/S interpreted by me (1pt. min.). @ -None done What testing was considered but not performed or refused? (CT, X-rays, U/S, labs)? Why? @ -None What meds were considered but not given or refused? Why? @ -None Did you discuss the management of the patient with other professionals (professionals i.e. DrJose, PA, REGROOVER, lab, RT, psych nurse, social research assistant, technical business analyst, teacher, safety officer, employment case manager)? Give summary @ -I spoke with Dr. locke and he wanted the patient admitted and I spoke with Dr. Saldaña and he agreed and admitted to Dr. Saldaña with a consult to be just and nephrology Was smoking cessation discussed for >3mins.? @ -No Was critical care preformed (if so, how long)? @ -No Were there social determinants of health that impacted care today? How? (Homelessness, low income, unemployed, alcoholism, drug addiction, transportation, low edu. Level, literacy, decrease access to med. care, [facility], rehab)? @ -No Was there de-escalation of care discussed even if they declined (Discuss DNR or withdrawal of care, Hospice)? DNR status @ -No What co-morbidities impacted this encounter? (DM, HTN, Smoking, COPD, CAD, Cancer, CVA, ARF, Chemo, Hep., AIDS, mental health diagnosis, sleep apnea, morbid obesity)? @ -None Was patient admitted / discharged? Hospital course, mention meds given and route, prescriptions, significant lab abnormalities, going to OR and other pertinent info. @ -Patient received pain medication for the flank pain. Patient's CAT scan showed a kidney stone with hydroureter. I spoke with Dr. Locke and he agreed the patient needed be admitted I spoke with Dr. Saldaña and he was willing to admit the patient I wrote admitting orders. Undiagnosed new problem with uncertain prognosis? @ -No Drug Therapy requiring intensive monitoring for toxicity (Heparin, Nitro, Insulin, Cardizem)? @ -No Were any procedures done? @ -No Diagnosis/symptom? @ -Kidney stone with hydroureter Acute, or Chronic, or Acute on Chronic? @ -Acute Uncomplicated (without systemic symptoms) or Complicated (systemic symptoms)? @ -Complicated Side effects of treatment? @ -No Exacerbation, Progression, or Severe Exacerbation? @ -No Poses a threat to life or bodily function? How? (Chest pain, [place], [place], pneumonia, PE, COPD, DKA, ARF, appy, cholecystitis, CVA, Diverticulitis, Homicidal, Suicidal, threat to staff... and all critical care pts) @ -Yes this could lead to kidney failure and significant morbidity or mortality Diagnosis/symptom? @ -Acute renal failure Acute, or Chronic, or Acute on Chronic? @ -Acute Uncomplicated (without systemic symptoms) or Complicated (systemic symptoms)? @ -Complicated Side effects of treatment? @ -none Exacerbation, Progression, or Severe Exacerbation] @ -no Poses a threat to life or bodily function? @ -no - Lab Data Result diagrams: 12/24/22 13:01 12/24/22 13:01 Lab Results 12/24/22 12/24/22 12/24/22 Range/Units 13: 13: 13:11 WBC 7.6 (3.8-10.6) k/uL RBC 2.89 L (4.30-5.90) m/uL Hgb 9.3 L (13.0-17.5) gm/dL Hct 30.6 L (39.0-53.0) % MCV 105.7 H (80.0-100.0) fL MCH 32.1 (25.0-35.0) pg MCHC 30.4 L (31.0-37.0) g/dL RDW 14.4 (11.5-15.5) % Plt Count 259 (150-450) k/uL MPV 8.3 Neutrophils % 72 % Lymphocytes % 20 % Monocytes % 4 % Eosinophils % 2 % Basophils % 1 % Neutrophils # 5.5 (1.3-7.7) k/uL Lymphocytes # 1.5 (1.0-4.8) k/uL Monocytes # 0.3 (0-1.0) k/uL Eosinophils # 0.2 (0-0.7) k/uL Basophils # 0.0 (0-0.2) k/uL Hypochromasia Marked Macrocytosis Moderate Sodium 137 (137-145) mmol/L Potassium 5.3 H (3.5-5.1) mmol/L Chloride 120 H (98-107) mmol/L Carbon Dioxide 8 L* (22-30) mmol/L Anion Gap 9 mmol/L BUN 38 H (9-20) mg/dL Creatinine 1.89 H (0.66-1.25) mg/dL Est GFR (CKD-EPI)AfAm 40 (>60 ml/min/1.73 sqM) Est GFR (CKD-EPI)NonAf 35 (>60 ml/min/1.73 sqM) Glucose 107 H (74-99) mg/dL Calcium 8.5 (8.4-10.2) mg/dL Total Bilirubin 1.4 H (0.2-1.3) mg/dL AST 73 H (17-59) U/L ALT 34 (4-49) U/L Alkaline Phosphatase 78 (38-126) U/L Total Protein 7.2 (6.3-8.2) g/dL Albumin 3.2 L (3.5-5.0) g/dL Amylase 91 (30-110) U/L Lipase 24 (23-300) U/L Urine Color Light Yellow Urine Appearance Clear (Clear) Urine pH 5.5 (5.0-8.0) Ur Specific [place] 1.013 (1.001-1.035) Urine Protein Trace H (Negative) Urine Glucose (UA) Negative (Negative) Urine Ketones Negative (Negative) Urine Blood Large H (Negative) Urine Nitrite Negative (Negative) Urine Bilirubin Negative (Negative) Urine Urobilinogen <2.0 (<2.0) mg/dL Ur Leukocyte Esterase Negative (Negative) Urine RBC >182 H (0-5) /hpf Urine WBC 8 H (0-5) /hpf Disposition Clinical Impression: Kidney stone, Hydroureter, Acute kidney failure Disposition: ADMITTED IP TO THIS HOSP Referrals: Minh Saldaña MD [Primary Care Provider] - 1-2 days Time of Disposition: 14:43
[2022-12-24 13:27] LABS: Basophils % (A) 1 %; Eosinophils # (A) 0.2 k/uL (0-0.7); Eosinophils % (A) 2 %; HCT 30.6 % (39.0-53.0); HGB 9.3 gm/dL (13.0-17.5); Hypochromasia Marked; Lymphocytes # (A) 1.5 k/uL (1.0-4.8); Lymphocytes % (A) 20 %; MCH 32.1 pg (25.0-35.0); MCHC 30.4 g/dL (31.0-37.0); MCV 105.7 fL (80.0-100.0); Macrocytosis Moderate; Mean Platelet Volume 8.3; Monocytes # (A) 0.3 k/uL (0-1.0); Monocytes % (A) 4 %; Neutrophils # (A) 5.5 k/uL (1.3-7.7); Neutrophils % (A) 72 %; Platelet Count 259 k/uL (150-450); RBC 2.89 m/uL (4.30-5.90); RDW 14.4 % (11.5-15.5); WBC 7.6 k/uL (3.8-10.6)
[2022-12-24 13:43] LABS: ALT 34 U/L (4-49); AST 73 U/L (17-59); African American GFR (CKD) 40 (>60 ml/min/1.73 sqM); Albumin 3.2 g/dL (3.5-5.0); Alkaline Phosphatase 78 U/L (38-126); Amylase 91 U/L (30-110); Anion Gap 9 mmol/L; Blood Urea Nitrogen 38 mg/dL (9-20); Calcium 8.5 mg/dL (8.4-10.2); Chloride 120 mmol/L (98-107); Glucose 107 mg/dL (74-99); Lipase 24 U/L (23-300); Non-African American GFR(CKD) 35 (>60 ml/min/1.73 sqM); Sodium 137 mmol/L (137-145); Total Bilirubin 1.4 mg/dL (0.2-1.3); Total Protein 7.2 g/dL (6.3-8.2)
[2022-12-24 13:44] LABS: Carbon Dioxide 8 mmol/L (22-30); Potassium 5.3 mmol/L (3.5-5.1)
--- NOTE | 2022-12-24 13:44 | CT ---
EXAMINATION TYPE: CT abdomen pelvis wo con DATE OF EXAM: 12/24/2022 COMPARISON: 12/01/2022 HISTORY: 72-year-old male abdominal pain, Low back pain x6days. Abnormal kidney function tests. CT DLP: 346.2 mGycm. Automated exposure control for dose reduction was used. TECHNIQUE: Contiguous axial scanning of the abdomen and pelvis without IV contrast. Coronal and sagit donnie reconstructions performed. FINDINGS: Slightly low density of the blood pool. Correlate to exclude underlying anemia. Lung bases clear with out pleural effusion. Surgical material at the GE junction, possible previous hiatal hernia repair. Clinically correlate. Noncontrast appearance of the liver, adrenal glands, and pancreas show no gross abnormality. Calcifie d granulomas in the spleen. Cholecystectomy clips. Similar mildly dilated bile duct to 9 mm. Right renal cyst measuring 2.9 cm re demonstrated. Redemonstrated slightly hyperdense round lesion 8 mm lateral right kidney suspected hem orrhagic/proteinaceous cyst. Numerous bilateral renal calculi are present measuring up to 6 mm and the left kidney and 9 mm in the right kidney. There is mild left-sided hydronephrosis and left hydroureter with a 8 mm stone in the proximal to mid dle third left ureter. No dilated small bowel or free air. Mild generalized anasarca change. Mild pelvic ascites likely due to the fluid overload state. Moderate stool burden. Moderate wall thickening of the distal sigmoid and rectum could represent stoo l encrustation. Previous surgical material along the right side of the colon. Borderline ectasia mid abdominal aorta to 2.5 cm. Bladder is urine distended. Prostate gland mildly enlarged at 4.1 cm wide. Moderate left scrotal hydr ocele. Intradiscal calcifications may reflect underlying chronic kidney disease, CABG, and medial hepatic. Moderate degenerative change right hip and mild of the left hip. IMPRESSION: 1. A new 8 mm stone in the proximal to middle third left ureter with mild obstructive uropathy. Addit ional numerous bilateral nonobstructive renal calculi measuring up to 9 mm. 2. Slightly low density of the blood pool. Query underlying anemia. 3. Moderate wall thickening of the distal sigmoid colon and rectum could represent stool encrustation such as in the setting of pancreatic insufficiency. Correlate to exclude a distal colitis. 4. Mild generalized anasarca change. Small amount of pelvic free fluid likely due to the third spacin g.
[2022-12-24 13:50] LABS: Appearance,Urine Clear (Clear); Bilirubin,Urine Negative (Negative); Blood,Urine Large (Negative); Color,Urine Light Yellow; Glucose,Urine (UA) Negative (Negative); Ketones,Urine Negative (Negative); Leukocyte Esterase,Urine Negative (Negative); Nitrite,Urine Negative (Negative); PH, Urine 5.5 (5.0-8.0); Protein,Urine Trace (Negative); RBC,Urine >182 /hpf (0-5); Specific Gravity,Urine 1.013 (1.001-1.035); Urobilinogen,Urine <2.0 mg/dL (<2.0); WBC,Urine 8 /hpf (0-5)
[2022-12-24] MEDS ORDERED: HYDROmorphone 0.5 MG/0.5 ML SYRINGE IVP STA (14:09)
[2022-12-24] MEDS ORDERED: SODIUM CHLORIDE 0.9% 1,000 ML IV ONE (14:45)
--- NOTE | 2022-12-24 16:39 | P.GSCN ---
History of Present Illness Consult date: 12/24/22 Reason for Consult: Left ureteral calculus Requesting physician: Minh Saldaña History of present illness: The patient is a 72-year-old white male with a history of urolithiasis. His stones in the past of always been right-sided and have never required surgery. He has a history of Crohn's disease, for which she has undergone bowel resection. He is also undergone partial gastrectomy for peptic ulcer disease. Undoubtedly this is the cause of his recurrent urolithiasis. He now presents with a six-day history of left flank pain radiating to the abdomen. He has experienced associated nausea. Laboratory studies show renal function impairment, so he was sent to the ER for evaluation and was found to have an obstructing left proximal ureteral calculus. Review of Systems - Constitutional Reports weight loss, Denies chills, Denies fever - Gastrointestinal Reports nausea, Denies vomiting - Genitourinary Reports dysuria, Reports flank pain, Reports kidney stones, Denies hematuria Past Medical History Past Medical History: Atrial Fibrillation, GERD/Reflux, Hypertension, Rheumatoid Arthritis (RA), Skin Disorder, Supraventricular Tachycardia (SVT) Additional Past Medical History / Comment(s): hx CROHN'S (takes tresa), IBS, chronic diarrhea, migraines-, hx ulcers, anemia, gout, kidney stones, psoriasis, bilateral tinnitis., pinched sciatic nerve, C-Diff 2017, neuropathy History of Any Multi-Drug Resistant Organisms: C-DIFF Year Discovered:: stool MDRO Source:: 2017 Past Surgical History: Bowel Resection, Cardiac Ablation, Cholecystectomy, Heart Catheterization, Hernia Repair, Orthopedic Surgery, Tonsillectomy Additional Past Surgical History / Comment(s): 1/3 of stomach removed (partial gastrectomy), ulcers, bowel resections, fecal transplant 2017, bilateral knee arthroscopic surgery, EGD/colonoscopies, R inguinal hernia repair, bilat cataract removal, Past Anesthesia/Blood Transfusion Reactions: Blood Transfusion Reaction, Motion Sickness Additional Past Anesthesia/Blood Transfusion Reaction / Comm: BLOOD TRANSFUSION- BROKE OUT IN HIVES age 21 Past Psychological History: Anxiety Smoking Status: Never smoker Past Alcohol Use History: None Reported Past Drug Use History: None Reported - Past Family History Mother Family Medical History: Pulmonary Embolus Additional Family Medical History / Comment(s): AGE 73-[place], STROKE DURING CARATID PROCEDURE Medications and Allergies Home Medications Medication Instructions Recorded Confirmed Type Orphenadrine Citrate [Orphenadrine 100 mg PO BID 12/08/17 12/24/22 History Citrate ER] Febuxostat [Uloric] 80 mg PO DAILY 05/05/18 12/24/22 History amLODIPine [Norvasc] 10 mg PO DAILY 10/18/20 12/24/22 History Acetaminophen Tab [Tylenol] 650 mg PO Q6HR PRN tab 07/19/22 12/24/22 Rx Adalimumab [Humira(Cf) Pen] 40 mg SQ Q14D 08/16/22 12/24/22 History Buprenorphine HCl/Naloxone HCl 2 film SL DAILY 08/16/22 12/24/22 History [Suboxone 2 mg-0.5 mg Sl Film] Naloxone HCl [Narcan] 4 mg NASAL ONCE PRN 08/16/22 12/24/22 History Omeprazole [PriLOSEC] 40 mg PO AC-BRKFST #90 cap 08/19/22 12/24/22 Rx Diphenox-Atrop 2.5-0.025 mg 2 tab PO QID PRN 12/24/22 12/24/22 History [Lomotil] Lipase/Protease/Amylase [Jean Naylor 1 cap PO DAILY PRN 12/24/22 12/24/22 History 36,000 Unit Capsule] Lipase/Protease/Amylase [Jean Naylor 3 cap PO AC-TID 12/24/22 12/24/22 History 36,000 Unit Capsule] traZODone HCL [Desyrel] 50 mg PO DIRECTED 12/24/22 12/24/22 History Allergies Allergy/AdvReac Type Severity Reaction Status Date / Time Iodinated Contrast Media Allergy Anaphylaxis Verified 12/24/22 15:09 [Iodinated Contrast Media - IV Dye] Surgical - Exam Vital Signs Temp Pulse Resp BP Pulse Ox 98.3 F 85 20 120/75 99 12/24/22 12:29 12/24/22 12:29 12/24/22 12:29 12/24/22 12:29 12/24/22 12:29 - General well developed, well nourished, no distress - Neck no masses, trachea midline - Respiratory normal respiratory effort - Abdomen Abdomen: soft, non tender, no guarding, no rigid, no rebound - Genitourinary Normal phallus. Small urethral meatus. Normal scrotum and testes. - Psychiatric oriented to time, oriented to person, oriented to place, speech is normal, memory intact Results - Labs 12/24/22 13:01 12/24/22 13:01 Abnormal Lab Results - Last 24 Hours (Table) 12/24/22 12/24/22 12/24/22 Range/Units 13:01 13:01 13:11 RBC 2.89 L (4.30-5.90) m/uL Hgb 9.3 L (13.0-17.5) gm/dL Hct 30.6 L (39.0-53.0) % MCV 105.7 H (80.0-100.0) fL MCHC 30.4 L (31.0-37.0) g/dL Potassium 5.3 H (3.5-5.1) mmol/L Chloride 120 H (98-107) mmol/L Carbon Dioxide 8 L* (22-30) mmol/L BUN 38 H (9-20) mg/dL Creatinine 1.89 H (0.66-1.25) mg/dL Glucose 107 H (74-99) mg/dL Total Bilirubin 1.4 H (0.2-1.3) mg/dL AST 73 H (17-59) U/L Albumin 3.2 L (3.5-5.0) g/dL Urine Protein Trace H (Negative) Urine Blood Large H (Negative) Urine RBC >182 H (0-5) /hpf Urine WBC 8 H (0-5) /hpf Diabetes panel 12/24/22 Range/Units 13:01 Sodium 137 (137-145) mmol/L Potassium 5.3 H (3.5-5.1) mmol/L Chloride 120 H (98-107) mmol/L Carbon Dioxide 8 L* (22-30) mmol/L BUN 38 H (9-20) mg/dL Creatinine 1.89 H (0.66-1.25) mg/dL Glucose 107 H (74-99) mg/dL Calcium 8.5 (8.4-10.2) mg/dL AST 73 H (17-59) U/L ALT 34 (4-49) U/L Alkaline Phosphatase 78 (38-126) U/L Total Protein 7.2 (6.3-8.2) g/dL Albumin 3.2 L (3.5-5.0) g/dL Calcium panel 12/24/22 Range/Units 13:01 Calcium 8.5 (8.4-10.2) mg/dL Albumin 3.2 L (3.5-5.0) g/dL Pituitary panel 12/24/22 Range/Units 13:01 Sodium 137 (137-145) mmol/L Potassium 5.3 H (3.5-5.1) mmol/L Chloride 120 H (98-107) mmol/L Carbon Dioxide 8 L* (22-30) mmol/L BUN 38 H (9-20) mg/dL Creatinine 1.89 H (0.66-1.25) mg/dL Glucose 107 H (74-99) mg/dL Calcium 8.5 (8.4-10.2) mg/dL Adrenal panel 12/24/22 Range/Units 13:01 Sodium 137 (137-145) mmol/L Potassium 5.3 H (3.5-5.1) mmol/L Chloride 120 H (98-107) mmol/L Carbon Dioxide 8 L* (22-30) mmol/L BUN 38 H (9-20) mg/dL Creatinine 1.89 H (0.66-1.25) mg/dL Glucose 107 H (74-99) mg/dL Calcium 8.5 (8.4-10.2) mg/dL Total Bilirubin 1.4 H (0.2-1.3) mg/dL AST 73 H (17-59) U/L ALT 34 (4-49) U/L Alkaline Phosphatase 78 (38-126) U/L Total Protein 7.2 (6.3-8.2) g/dL Albumin 3.2 L (3.5-5.0) g/dL - Imaging CT scan - abdomen: report reviewed, image reviewed Assessment and Plan (1) Kidney stone Current Visit: Yes Status: Acute Code(s): N20.0 - CALCULUS OF KIDNEY SNOMED Code(s): 41501938 (2) Calculus of ureter Current Visit: Yes Status: Acute Code(s): N20.1 - CALCULUS OF URETER SNOMED Code(s): 11631187 (3) Hydronephrosis with renal and ureteral calculous obstruction Current Visit: Yes Status: Acute Code(s): N13.2 - HYDRONEPHROSIS WITH RENAL AND URETERAL CALCULOUS OBSTRUCTION SNOMED Code(s): 089153148 Plan: The patient has been admitted for IV hydration and parenteral analgesics. I have suggested he undergo left ureteral stent insertion tomorrow morning to optimize his renal function. He will then be scheduled to undergo elective ureteroscopic removal of his left ureteral calculus and left renal calculi, which depending on stone burden may require 2 procedures. The rationale for stent placement was discussed with him in detail, and potential risks were reviewed as well. These include anesthesia, infection, inability to successfully place the stent, and ureteral injury. Time with Patient: Greater than 30
[2022-12-24] MEDS ORDERED: LIPASE PO PRN (17:30)
[2022-12-24] MEDS ORDERED: PROTEASE PO PRN (17:30)
[2022-12-24] MEDS ORDERED: [UNRECOGNIZED DRUG - OTHER] PO PRN (17:30)
[2022-12-24] MEDS ORDERED: ACETAMINOPHEN TAB 325 MG TAB PO PRN (17:30)
[2022-12-24] MEDS ORDERED: AMYLASE PO PRN (17:30)
[2022-12-24] MEDS: PROTEASE PO SCH (18:06)
[2022-12-24] MEDS: [UNRECOGNIZED DRUG - OTHER] PO SCH (18:06)
[2022-12-24] MEDS: AMYLASE PO SCH (18:06)
[2022-12-24] MEDS: LIPASE PO SCH (18:06)
[2022-12-24] MEDS: HYDROmorphone 0.5 MG/0.5 ML SYRINGE IVP PRN ×2 (18:10→21:14)
[2022-12-24] MEDS ORDERED: SODIUM ZIRCONIUM CYCLOSILICATE 10 GM PACKET PO ONE (18:20)
[2022-12-24] MEDS: CYCLOBENZAPRINE 10 MG TAB PO SCH (20:45)
[2022-12-24] MEDS: traZODone HCL 50 MG TAB PO PRN (21:15)
[2022-12-25] MEDS: HYDROmorphone 0.5 MG/0.5 ML SYRINGE IVP PRN ×7 (00:03→20:23)
[2022-12-25] MEDS: ONDANSETRON 4 MG/2 ML VIAL IVP PRN ×2 (00:03→06:07)
[2022-12-25] MEDS: LIPASE PO SCH ×3 (05:32→15:03)
[2022-12-25] MEDS: PROTEASE PO SCH ×3 (05:32→15:03)
[2022-12-25] MEDS: AMYLASE PO SCH ×3 (05:32→15:03)
[2022-12-25] MEDS: [UNRECOGNIZED DRUG - OTHER] PO SCH ×3 (05:32→15:03)
[2022-12-25] MEDS ORDERED: LIDOCAINE 2% INJ 20 MG/ML (2 ML VIAL) ONE (07:54)
[2022-12-25] MEDS ORDERED: PHENYLEPHRINE-0.9% NACL SYG 1,000 MCG/10 ML SYRINGE ONE (07:54)
[2022-12-25] MEDS ORDERED: MIDAZOLAM 2 MG/2 ML VIAL ONE (07:54)
[2022-12-25] MEDS ORDERED: PROPOFOL 10 MG/ML 20 ML VIAL IV ONE (07:54)
[2022-12-25] MEDS ORDERED: fentaNYL (PF) 50 MCG/ML 2 ML AMP ONE (07:54)
[2022-12-25] MEDS ORDERED: IV FLUID CONTINUATION 1,000 ML IV ONE (08:00)
[2022-12-25] MEDS ORDERED: IOPAMIDOL-370 100ML BTL MISCELLANE ONE (08:21)
--- NOTE | 2022-12-25 08:46 | P.OP ---
Date of Procedure: 12/25/22 Preoperative Diagnosis: Left hydronephrosis secondary to left ureteral calculus Postoperative Diagnosis: Same Procedure(s) Performed: Cystoscopy, left rotator pyelogram, left ureteral stent insertion Anesthesia: NELLA Surgeon: Rian Locke Estimated Blood Loss (ml): 0 IV fluids (ml): 400 Pathology: none sent Condition: stable Disposition: PACU Indications for Procedure: The patient is a 72-year-old white male with a history of urolithiasis. His stones in the past of always been right-sided and have never required surgery. He has a history of Crohn's disease, for which she has undergone bowel resection. He is also undergone partial gastrectomy for peptic ulcer disease. Undoubtedly this is the cause of his recurrent urolithiasis. He now presents with a six-day history of left flank pain radiating to the abdomen. He has experienced associated nausea. Laboratory studies show renal function impairment, and CT scan shows evidence of left hydronephrosis due to an 8 mm left proximal ureteral calculus. He now comes for placement of a left ureteral stent to relieve ureteral obstruction. Operative Findings: Left proximal ureteral calculus, partially obstructing. Description of Procedure: The patient was taken to the operating room and placed in the dorsolithotomy position, with legs supported in Ronni stirrups. The external genitalia was prepped and draped sterilely. Stafford sounds were used to dilate the urethral meatus. The 30 lens was used to introduce the 22-Turkish Stortz cystoscopic sheath through the urethra and into the bladder under direct vision. The prost atic urethra showed evidence of mild lateral lobe enlargement with a high median bar. The bladder was examined in its entirety. Both ureteral orifices were of normal anatomic location and configuration, and clear urine effluxed from both. No tumors were seen. A very small bladder calculus was seen and removed from the bladder. It was saved and sent for chemical analysis. 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 Therefore, using a 10-Turkish cone-tipped catheter, a left retrograde pyelogram was performed. The distal ureter appeared normal, as did the mid ureter. The calculus was seen within the proximal ureter, partially obstructing. A 0.035 inch Glidewire was passed through the cystoscope. The left ureteral orifice was cannulated, and the Glidewire was slowly advanced beyond the calculus and up to the renal pelvis. A 28 cm, 6-Turkish double-J ureteral stent was placed over the wire. Proper stent positioning was verified fluoroscopically and endoscopically. The bladder was emptied and the cystoscope removed. The patient tolerated the procedure well was taken to the recovery room in stable condition.
[2022-12-25] MEDS ORDERED: NON FORMULARY DRUG (Buprenorphine Hcl/Naloxone Hcl [Suboxone 2 Mg-0.5 Mg Sl Film] 1 EACH F SUBLINGUAL SCH (09:00)
[2022-12-25] MEDS: amLODIPine 10 MG TAB PO SCH (09:27)
[2022-12-25] MEDS: allopurinoL 100 MG TAB PO SCH (09:27)
[2022-12-25] MEDS: CYCLOBENZAPRINE 10 MG TAB PO SCH ×2 (09:27→20:23)
[2022-12-25] MEDS: TAMSULOSIN 0.4 MG CAP.ER.24H PO SCH (09:27)
--- NOTE | 2022-12-25 10:39 | FL ---
Fluoroscopy INDICATION: Pain FINDINGS: Fluoroscopy time: 33.6 seconds. Total dose area product (DAP) in uGy*m?, mGy*cm? (or similar): 2.1103 Images obtained: 4. IMPRESSION: 1. Documentation of fluoroscopy.
[2022-12-25 11:24] VITALS: BMI 16.7
[2022-12-25] MEDS: NON FORMULARY DRUG (Buprenorphine Hcl/Naloxone Hcl [Suboxone 2 Mg-0.5 Mg Sl Film] 1 EACH F SUBLINGUAL SCH ×2 (11:57→23:34)
[2022-12-25] MEDS ORDERED: SODIUM CHLORIDE 0.9% 1,000 ML IV SCH (12:15)
--- NOTE | 2022-12-25 12:40 | HP ---
HISTORY AND PHYSICAL CHIEF COMPLAINT: Left loin pain. HISTORY OF PRESENT ILLNESS: This is a 72-year-old gentleman with a past medical history of multiple medical problems including atrial fibrillation, was having left loin pain. The patient came to [facility], patient had left nephrolithiasis and the patient underwent cystoscopy, left pyelogram, and left ureteral stent insertion by Dr. Locke, creatinine is slightly elevated. There is no history of any fever, rigors, or chills. PAST MEDICAL HISTORY: Reviewed include atrial fibrillation, hypertension, rest of the history and rest of the chart is also reviewed. HOME MEDICATIONS: Reviewed include amlodipine, dose and rest of medications reviewed. ALLERGIES: ntd FAMILY HISTORY: History of pulmonary embolism. SOCIAL HISTORY: No history of smoking. REVIEW OF SYSTEMS: A 14-point review is negative except as mentioned earlier. PHYSICAL EXAMINATION: VITAL SIGNS: Pulse 61, blood pressure 160/83, respirations 16. HEENT: Conjunctivae normal. CARDIOVASCULAR: S1, S2. RESPIRATIONS: Diminished at the bases. ABDOMEN: Soft, nontender. LEGS: No edema, no swelling. NERVOUS SYSTEM: No focal deficits. LABORATORY DATA: Reviewed. ASSESSMENT: 1. Left hydronephrosis secondary to left ureteral calculus, status post left ureteral stent insertion. 2. Chronic kidney disease, possibly postobstructive. 3. Atrial fibrillation. 4. Rheumatoid arthritis. 5. Multiple medical problems. RECOMMENDATIONS: This 72-year-old gentleman presented with multiple complex medical issues. We will monitor the patient closely. I would recommend continue rest of medications, resume the home medications. DVT prophylaxis. Closely follow with Urology. Repeat labs. Symptomatic treatment. Guarded prognosis. Further recommendations to follow. IV fluids. MMODL / IJN: [id number] / [facility]
--- NOTE | 2022-12-25 13:00 | P.NPCON ---
History of Present Illness - Reason for Consult Consult date: 12/25/22 acute renal failure - Chief Complaint Left flank pain - History of Present Illness 72-year-old gentleman coming to the hospital with the above complaints. He has long history of nephrolithiasis. One-week history of flank pain with dysuria, workup showed bilateral renal calculi with left hydronephrosis. Underwent cystoscopy with stent placement. Urine still appears dark. Denies any nausea vomiting diarrhea, poor oral intake. Baseline creatinine 1.1 MG per DL, admission creatinine of 1.8 MG per DL. No new labs today. Review of Systems Constitutional: Reports as per HPI Past Medical History Past Medical History: Atrial Fibrillation, GERD/Reflux, Hypertension, Rheumatoid Arthritis (RA), Skin Disorder, Supraventricular Tachycardia (SVT) Additional Past Medical History / Comment(s): hx CROHN'S (takes tresa), IBS, chronic diarrhea, migraines-, hx ulcers, anemia, gout, kidney stones, psoriasis, bilateral tinnitis., pinched sciatic nerve, C-Diff 2017, neuropathy History of Any Multi-Drug Resistant Organisms: C-DIFF Date of last positivie culture/infection: stool MDRO Source:: 2017 Past Surgical History: Bowel Resection, Cardiac Ablation, Cholecystectomy, Heart Catheterization, Hernia Repair, Orthopedic Surgery, Tonsillectomy Additional Past Surgical History / Comment(s): 1/3 of stomach removed (partial gastrectomy), ulcers, bowel resections, fecal transplant 2017, bilateral knee arthroscopic surgery, EGD/colonoscopies, R inguinal hernia repair, bilat cataract removal, Past Anesthesia/Blood Transfusion Reactions: Blood Transfusion Reaction, Motion Sickness Additional Past Anesthesia/Blood Transfusion Reaction / Comment(s): BLOOD TRANSFUSION- BROKE OUT IN HIVES age 21 Past Psychological History: Anxiety Additional Psychological History / Comment(s): denies Smoking Status: Never smoker Past Alcohol Use History: None Reported Additional Past Alcohol Use History / Comment(s): every other day 2-3 beers per patient. Past Drug Use History: None Reported Additional Drug Use History / Comment(s): Hx of opiate dependency-on suboxone. - Past Family History Mother Family Medical History: Pulmonary Embolus Additional Family Medical History / Comment(s): AGE 73-[place], STROKE DURING CARATID PROCEDURE Medications and Allergies Home Medications Medication Instructions Recorded Confirmed Type Orphenadrine Citrate [Orphenadrine 100 mg PO BID 12/08/17 12/24/22 History Citrate ER] Febuxostat [Uloric] 80 mg PO DAILY 05/05/18 12/24/22 History amLODIPine [Norvasc] 10 mg PO DAILY 10/18/20 12/24/22 History Acetaminophen Tab [Tylenol] 650 mg PO Q6HR PRN tab 07/19/22 12/24/22 Rx Adalimumab [Humira(Cf) Pen] 40 mg SQ Q14D 08/16/22 12/24/22 History Buprenorphine HCl/Naloxone HCl 2 film SL DAILY 08/16/22 12/24/22 History [Suboxone 2 mg-0.5 mg Sl Film] Naloxone HCl [Narcan] 4 mg NASAL ONCE PRN 08/16/22 12/24/22 History Omeprazole [PriLOSEC] 40 mg PO AC-BRKFST #90 cap 08/19/22 12/24/22 Rx Diphenox-Atrop 2.5-0.025 mg 2 tab PO QID PRN 12/24/22 12/24/22 History [Lomotil] Lipase/Protease/Amylase [Jean Naylor 1 cap PO DAILY PRN 12/24/22 12/24/22 History 36,000 Unit Capsule] Lipase/Protease/Amylase [Jean Naylor 3 cap PO AC-TID 12/24/22 12/24/22 History 36,000 Unit Capsule] traZODone HCL [Desyrel] 50 mg PO DIRECTED 12/24/22 12/24/22 History Allergies Allergy/AdvReac Type Severity Reaction Status Date / Time Iodinated Contrast Media Allergy Anaphylaxis Verified 12/24/22 15:09 [Iodinated Contrast Media - IV Dye] Physical Exam Vitals: Vital Signs Temp Pulse Pulse Pulse Resp BP BP 12/25/22 09:07 61 16 166/83 12/25/22 08:52 79 16 146/74 12/25/22 08:37 97.1 F L 82 16 124/58 12/25/22 07:00 97.8 F 48 L 18 162/72 12/25/22 00:43 97.7 F 77 16 171/82 12/24/22 19:10 97.5 F L 56 L 16 149/76 12/24/22 17:08 97.6 F 57 L 18 166/67 12/24/22 16:19 97.4 F L 56 L 18 155/71 12/24/22 14:09 57 L 18 152/67 12/24/22 13:14 68 18 Pulse Ox 12/25/22 09:07 99 12/25/22 08:52 100 12/25/22 08:37 99 12/25/22 07:00 98 12/25/22 00:43 99 12/24/22 19:10 98 12/24/22 17:08 100 12/24/22 16:19 100 12/24/22 14:09 97 12/24/22 13:14 98 Intake and Output 12/24/22 12/25/22 12/25/22 22:59 06:59 14:59 Intake Total 550 Balance 550 Intake: IV 550 Other: Voiding Method Toilet Urinal # Voids 2 6 Weight 58.967 kg 58.967 kg No acute distress S1-S2 heard Decreased breath sounds Abdomen soft Trace edema Results - Lab Results Most recent lab results Calcium 8.5 mg/dL (8.4-10.2) 12/24/22 13:01 12/24/22 13:01 12/24/22 13:01 Assessment and Plan Assessment: #1 acute kidney injury secondary to obstructive uropathy with left hydronephrosis #2 left hydronephrosis status post cystoscopy with stent #3 renal calculi #4 metabolic acidosis secondary to acute kidney injury #5 hematuria secondary to renal calculus #6 hyperkalemia secondary to obstructive uropathy status post cystoscopy and lokelma Plan: #1 no new labs today. Check labs in the morning #2 change normal saline to bicarb drip #3 avoid nephrotoxic agents and hypotensive episodes
[2022-12-25] MEDS: DEXTROSE 5% IN WATER 1,000 ML with SODIUM BICARB (1 MEQ/ML) 150 ML IV SCH (13:39)
[2022-12-25] MEDS: HEPARIN SODIUM,PORCINE 5,000 UNIT/ML 1 ML VIAL SQ SCH ×3 (13:40→23:35)
[2022-12-25] MEDS: traZODone HCL 50 MG TAB PO PRN (20:23)
[2022-12-26] MEDS: DEXTROSE 5% IN WATER 1,000 ML with SODIUM BICARB (1 MEQ/ML) 150 ML IV SCH ×2 (00:53→16:46)
[2022-12-26] MEDS: HYDROmorphone 0.5 MG/0.5 ML SYRINGE IVP PRN ×2 (04:13→11:03)
[2022-12-26] MEDS ORDERED: PANTOPRAZOLE 40 MG TABLET PO SCH (07:30)
[2022-12-26] MEDS: LIPASE PO SCH ×3 (08:20→16:46)
[2022-12-26] MEDS: [UNRECOGNIZED DRUG - OTHER] PO SCH ×3 (08:20→16:46)
[2022-12-26] MEDS: AMYLASE PO SCH ×3 (08:20→16:46)
[2022-12-26] MEDS: PROTEASE PO SCH ×3 (08:20→16:46)
[2022-12-26] MEDS: CYCLOBENZAPRINE 10 MG TAB PO SCH (08:21)
[2022-12-26] MEDS: HEPARIN SODIUM,PORCINE 5,000 UNIT/ML 1 ML VIAL SQ SCH ×2 (08:21→16:46)
[2022-12-26] MEDS: TAMSULOSIN 0.4 MG CAP.ER.24H PO SCH (08:22)
[2022-12-26] MEDS: allopurinoL 100 MG TAB PO SCH (08:22)
[2022-12-26] MEDS: amLODIPine 10 MG TAB PO SCH (08:22)
[2022-12-26 09:21] LABS: Basophils # (A) 0.02 X 10*3/uL (0.00-0.10); Basophils % (A) 0.4 %; Eosinophils # (A) 0.16 X 10*3/uL (0.04-0.35); Eosinophils % (A) 2.9 %; HCT 23.4 % (39.6-50.0); Lymphocytes % (A) 25.1 %; MCH 31.4 pg (27.0-32.0); MCHC 29.9 d/dL (32.0-37.0); MCV 104.9 FL (80.0-97.0); Mean Platelet Volume 10.4 FL (9.5-12.2); Monocytes # (A) 0.39 X 10*3/uL (0.20-1.00); NRBC Per 100 WBC 0 X 10*3/uL (0.00-0.01); Neutrophils # (A) 3.59 X 10*3/uL (1.80-7.70); Neutrophils % (A) 64.4 %; Platelet Count 198 X 10*3/uL (140-440); RBC 2.23 X 10*6/uL (4.40-5.60); RDW 14.3 % (11.5-14.5); WBC 5.57 X 10*3/uL (4.50-10.00)
[2022-12-26] MEDS: NON FORMULARY DRUG (Buprenorphine Hcl/Naloxone Hcl [Suboxone 2 Mg-0.5 Mg Sl Film] 1 EACH F SUBLINGUAL SCH (09:29)
[2022-12-26 09:35] LABS: BUN/Creat Ratio 17.25 Ratio (12.00-20.00); Blood Urea Nitrogen 20.7 mg/dL (9.0-27.0); Calcium 7.6 mg/dL (8.7-10.3); Carbon Dioxide 20.6 mmol/L (21.6-31.8); Chloride 110 mmol/L (96-109); Glucose 134 mg/dL (70-110); Potassium 3.4 mmol/L (3.5-5.5); Sodium 139 mmol/L (135-145)
--- NOTE | 2022-12-26 09:40 | P.PN ---
Subjective Progress Note Date: 12/26/22 Principal diagnosis: Left ureteral calculus Mr. Souza was admitted with left renal colic due to an 8 mm left proximal ureteral calculus. He underwent left ureteral stent insertion on 12/25/2022. He reports discomfort with voiding but states that this is improved. Objective - Vital Signs Vital signs: Vital Signs Temp 98 F 12/26/22 02:10 Pulse 74 12/26/22 02:10 Resp 15 12/26/22 02:10 BP 99/57 12/26/22 02:10 Pulse Ox 96 12/26/22 02:10 FiO2 Intake & Output 12/25/22 12/25/22 12/26/22 06:59 18:59 06:59 Intake Total 668 Output Total 200 Balance 668 -200 Weight 58.967 kg Intake: IV 550 Oral 118 Output: Urine 200 Other: Voiding Method Toilet Urinal Urinal # Voids 6 5 4 - Constitutional General appearance: Present: average body habitus, no acute distress - Psychiatric Psychiatric: Present: A&O x's 3 - Labs CBC & Chem 7: 12/26/22 06:29 12/26/22 06:29 Assessment and Plan (1) Kidney stone Current Visit: Yes Status: Acute Code(s): N20.0 - CALCULUS OF KIDNEY SNOM ED Code(s): 83396402 (2) Calculus of ureter Current Visit: Yes Status: Acute Code(s): N20.1 - CALCULUS OF URETER SNOMED Code(s): 70592776 (3) Hydronephrosis with renal and ureteral calculous obstruction Current Visit: Yes Status: Acute Code(s): N13.2 - HYDRONEPHROSIS WITH RENAL AND URETERAL CALCULOUS OBSTRUCTION SNOMED Code(s): 538348951 Plan: The patient has undergone successful left ureteral stent placement, relieving ureteral obstruction. This should optimize his renal function and prevent future episodes of renal colic. He is experiencing some discomfort from the stent, but states it is tolerable. He is urologically stable for discharge. I have sent a prescription for tamsulosin. He will be scheduled to undergo elective ureteroscopic removal of his left ureteral calculus and left renal calc linn, hopefully on 01/06/2023. Given the left renal stone burden, this may require a secondary procedure.
[2022-12-26] MEDS ORDERED: POTASSIUM CHLORIDE ER 20 MEQ TAB.ER PO STA (10:17)
[2022-12-26] MEDS ORDERED: FUROSEMIDE 10 MG/ML 2 ML VIAL IV ONE (10:30)
--- NOTE | 2022-12-26 13:46 | P.PN ---
Subjective Progress Note Date: 12/26/22 Follow-up for acute kidney injury. Objective - Vital Signs Vital signs: Vital Signs Temp 97.9 F 12/26/22 07:00 Pulse 72 12/26/22 07:00 Resp 14 12/26/22 07:00 BP 112/55 12/26/22 07:00 Pulse Ox 98 12/26/22 07:00 FiO2 Intake & Output 12/25/22 12/26/22 12/26/22 18:59 06:59 18:59 Intake Total 668 Output Total 200 Balance 668 -200 Weight 58.967 kg Intake: IV 550 Oral 118 Output: Urine 200 Other: Voiding Method Urinal Urinal Toilet Urinal # Voids 5 4 - Exam No acute distress S1-S2 heard Lungs clear No edema - Labs CBC & Chem 7: 12/26/22 06:29 12/26/22 06:29 Labs: Abnormal Lab Results - Last 24 Hours (Table) 12/26/22 12/26/22 12/26/22 Range/Units 06:29 06:29 10:43 RBC 2.23 L (4.40-5.60) X 10*6/uL Hgb 7.0 L (13.0-17.0) d/dL Hct 23.4 L (39.6-50.0) % MCV 104.9 H (80.0-97.0) FL MCHC 29.9 L (32.0-37.0) d/dL Potassium 3.4 L (3.5-5.5) mmol/L Chloride 110 H (96-109) mmol/L Carbon Dioxide 20.6 L (21.6-31.8) mmol/L Glucose 134 H (70-110) mg/dL Calcium 7.6 L (8.7-10.3) mg/dL Crossmatch See Detail Assessment and Plan Assessment: #1 acute kidney injury secondary to obstructive uropathy with left hydronephros is #2 left hydronephrosis status post cystoscopy with stent #3 renal calculi #4 metabolic acidosis secondary to acute kidney injury #5 hematuria secondary to renal calculus #6 hyperkalemia secondary to obstructive uropathy status post cystoscopy and lokelma Plan: #1 renal function improving. #2 continue with bicarb drip at 50 ML's an hour. #3 avoid nephrotoxic agents and hypotensive episodes
[2022-12-26 16:39] VITALS: RESP 14
[2022-12-26 17:21] VITALS: BP 150/75; PULSE 66; TEMP 97.6
--- NOTE | 2022-12-27 04:34 | DS ---
DISCHARGE SUMMARY FINAL DIAGNOSES: 1. Left hydronephrosis secondary to left ureteral calculus, status post left ureteral stent insertion. 2. Chronic kidney disease, possibly postobstructive. 3. Atrial fibrillation. 4. Rheumatoid arthritis. 5. Multiple medical problems. DISCHARGE DISPOSITION: The patient will be discharged in stable condition and guarded prognosis. HISTORY OF PRESENT ILLNESS: This is a 72-year-old gentleman with a past medical history, admitted with left ureteral calculus. The patient underwent cystoscopy, ureteral stenting by Urology. Please refer to urology notes for more information. Hemoglobin was 7. The patient had a history of GI bleed. Recommend 1 unit transfusion and closely follow in the outpatient setting. Urology cleared the patient for discharge. I would recommend follow up with Dr. Saldaña and as well as Dr. Patten, who did the surgery for possible repeat endoscopies in the short time frame. PHYSICAL EXAMINATION: VITAL SIGNS: Stable. CARDIOVASCULAR: S1, S2. ABDOMEN: Soft. NERVOUS SYSTEM: Nonfocal. DISCHARGE MEDICATIONS: Resume the home medications and Flomax per Urology. No aspirin, no NSAIDs. Followup labs with Dr. Saldaña. MMODL / IJN: [id number] /
== END 2022-12-26 18:28 | disposition home or self-care (01) ==
LOC: EC 12:11 → 6NMEDSUR 14:51
PROVIDERS: ADMIT Family Medicine; ATTEND Family Medicine
DX: N13.2 Hydronephrosis with renal and ureteral calculous obstruction (principal); N17.9 Acute kidney failure, unspecified; E87.5 Hyperkalemia; E87.20 Acidosis, unspecified; I48.91 Unspecified atrial fibrillation; K21.9 Gastro-esophageal reflux disease without esophagitis; K58.9 Irritable bowel syndrome, unspecified; G43.909 Migraine, unspecified, not intractable, without status migrainosus; G62.9 Polyneuropathy, unspecified; F41.9 Anxiety disorder, unspecified; M06.9 Rheumatoid arthritis, unspecified; I12.9 Hypertensive chronic kidney disease with stage 1 through stage 4 chronic kidney disease, or unspecified chronic kidney disease; N18.9 Chronic kidney disease, unspecified; E11.22 Type 2 diabetes mellitus with diabetic chronic kidney disease; Z87.11 Personal history of peptic ulcer disease; Z87.442 Personal history of urinary calculi; Z90.3 Acquired absence of stomach [part of]; Z90.49 Acquired absence of other specified parts of digestive tract; Z79.899 Other long term (current) drug therapy
CPT/HCPCS: 96376 ×2; 96361 ×2; 96375 ×2; 96374; 99285; 36415; 86900; 86901; 80053; 80048; 82150; 83690; 85025 ×2; 86850; 86920; 81001; 82365; 74420; 74176; 52332; G0378 ×3; C2625; C1758; C1769; P9016; J2250; J1644 ×2; J1940; J0690; J2405; J3010; J1885; J2704; J1170 ×3; Q9967; J2001; J2371

== ENCOUNTER → 2022-12-27 | Outpatient (CLI) | payer BC, MEDICARE ==
[2022-12-27 17:29] LABS: ALT 27 U/L (10-49); AST 36 U/L (14-35); Albumin/Globulin Ratio 1.15 Ratio (1.60-3.17); Alkaline Phosphatase 85 U/L (41-126); BUN/Creat Ratio 14.57 Ratio (12.00-20.00); Blood Urea Nitrogen 20.4 mg/dL (9.0-27.0); Calcium 7.5 mg/dL (8.7-10.3); Carbon Dioxide 19.1 mmol/L (21.6-31.8); Chloride 110 mmol/L (96-109); Globulin 2.6 d/dL (1.6-3.3); Glucose 123 mg/dL (70-110); Potassium 3.9 mmol/L (3.5-5.5); Sodium 139 mmol/L (135-145); Total Bilirubin 0.3 mg/dL (0.3-1.2); Total Protein 5.6 d/dL (6.2-8.2)
[2022-12-27 18:31] LABS: Basophils # (A) 0.03 X 10*3/uL (0.00-0.10); Basophils % (A) 0.5 %; Eosinophils # (A) 0.21 X 10*3/uL (0.04-0.35); Eosinophils % (A) 3.8 %; HCT 28.2 % (39.6-50.0); HGB 8.7 d/dL (13.0-17.0); Lymphocytes # (A) 1.63 X 10*3/uL (0.90-5.00); Lymphocytes % (A) 29.6 %; MCH 32.1 pg (27.0-32.0); MCHC 30.9 d/dL (32.0-37.0); MCV 104.1 FL (80.0-97.0); Mean Platelet Volume 12.3 FL (9.5-12.2); Monocytes % (A) 7.3 %; NRBC Per 100 WBC 0 X 10*3/uL (0.00-0.01); Neutrophils # (A) 3.22 X 10*3/uL (1.80-7.70); Neutrophils % (A) 58.4 %; Platelet Count 194 X 10*3/uL (140-440); RBC 2.71 X 10*6/uL (4.40-5.60); RDW 14.9 % (11.5-14.5); WBC 5.51 X 10*3/uL (4.50-10.00)
== END | disposition home or self-care (01) ==
LOC: LABWHC1 10:12
PROVIDERS: ATTEND Hospitalist
DX: D64.9 Anemia, unspecified (principal)
CPT/HCPCS: 36415; 80053; 85025

== ENCOUNTER 2023-04-16 23:55 | Inpatient (IN) | payer BC, MEDICARE ==
[2023-04-17] MEDS ORDERED: MORPHINE SULFATE 4 MG/ML SYRINGE IVP STA (00:02)
[2023-04-17] MEDS ORDERED: SODIUM CHLORIDE 0.9% 1,000 ML IV STA (00:02)
[2023-04-17] MEDS ORDERED: ONDANSETRON 4 MG/2 ML VIAL IVP STA (00:02)
[2023-04-17] MEDS ORDERED: PANTOPRAZOLE 40 MG/10 ML VIAL IVP STA (00:02)
[2023-04-17 00:23] LABS: Basophils % (A) 0 %; Eosinophils # (A) 0.1 k/uL (0-0.7); Eosinophils % (A) 1 %; HCT 27.3 % (39.0-53.0); HGB 8.4 gm/dL (13.0-17.5); Hypochromasia Marked; Lymphocytes # (A) 0.8 k/uL (1.0-4.8); Lymphocytes % (A) 9 %; MCH 31.2 pg (25.0-35.0); MCHC 30.7 g/dL (31.0-37.0); MCV 101.5 fL (80.0-100.0); Macrocytosis Slight; Mean Platelet Volume 7.3; Monocytes # (A) 0.3 k/uL (0-1.0); Monocytes % (A) 4 %; Neutrophils # (A) 7.2 k/uL (1.3-7.7); Neutrophils % (A) 85 %; Platelet Count 199 k/uL (150-450); RBC 2.69 m/uL (4.30-5.90); RDW 14.5 % (11.5-15.5); WBC 8.5 k/uL (3.8-10.6)
[2023-04-17 00:33] LABS: ALT 35 U/L (4-49); AST 38 U/L (17-59); African American GFR (CKD) 70 (>60 ml/min/1.73 sqM); Albumin 2.8 g/dL (3.5-5.0); Alkaline Phosphatase 83 U/L (38-126); Amylase 187 U/L (30-110); Anion Gap 8 mmol/L; Blood Urea Nitrogen 32 mg/dL (9-20); Calcium 8.2 mg/dL (8.4-10.2); Carbon Dioxide 15 mmol/L (22-30); Chloride 116 mmol/L (98-107); Glucose 136 mg/dL (74-99); Lipase 422 U/L (23-300); Non-African American GFR(CKD) 61 (>60 ml/min/1.73 sqM); Potassium 4.7 mmol/L (3.5-5.1); Sodium 139 mmol/L (137-145); Total Bilirubin 0.4 mg/dL (0.2-1.3); Total Protein 6.1 g/dL (6.3-8.2)
--- NOTE | 2023-04-17 00:39 | ED ---
General Adult HPI - General Chief complaint: Abdominal Pain Stated complaint: Abdominal pain Time Seen by Provider: 04/17/23 00:01 Source: patient, EMS, RN notes reviewed, old records reviewed Mode of arrival: EMS Limitations: no limitations - History of Present Illness Initial comments: Patient is a 73-year-old male presents emergency Department complaining of right lower quadrant abdominal pain with radiation to back. Patient is a history of Crohn's, kidney stones. Symptoms started yesterday morning. Has had some nausea, nonbilious, bloody emesis, nonbloody diarrhea. Denies any chest pain or shortness of breath. Denies fevers or chills. Has no other acute complaints at this time. Presents for further evaluation this time.Patient does have a history of extensive abdominal surgeries. States he still passing flatus. States he sits still having bowel movements. - Related Data Home Medications Medication Instructions Recorded Confirmed Orphenadrine Citrate [Orphenadrine 100 mg PO BID 12/08/17 01/06/23 Citrate ER] Febuxostat [Uloric] 80 mg PO DAILY 05/05/18 01/06/23 amLODIPine [Norvasc] 10 mg PO DAILY 10/18/20 01/06/23 Adalimumab [Humira(Cf) Pen] 40 mg SQ Q14D 08/16/22 01/06/23 Buprenorphine HCl/Naloxone HCl 2 film SL DAILY 08/16/22 01/06/23 [Suboxone 2 mg-0.5 mg Sl Film] Diphenox-Atrop 2.5-0.025 mg 2 tab PO QID PRN 12/24/22 01/06/23 [Lomotil] Lipase/Protease/Amylase [Jean Naylor 1 cap PO DAILY PRN 12/24/22 01/06/23 36,000 Unit Capsule] Lipase/Protease/Amylase [Jean Naylor 3 cap PO AC-TID 12/24/22 01/06/23 36,000 Unit Capsule] traZODone HCL [Desyrel] 50 mg PO DIRECTED 12/24/22 01/06/23 Previous Rx's Medication Instructions Recorded Acetaminophen Tab [Tylenol] 650 mg PO Q6HR PRN tab 07/19/22 Omeprazole [PriLOSEC] 40 mg PO AC-BRKFST #90 cap 08/19/22 Tamsulosin [Flomax] 0.4 mg PO DAILY #30 cap 12/26/22 Ketorolac [Toradol] 10 mg PO Q6HR PRN #10 tab 01/06/23 Allergies Allergy/AdvReac Type Severity Reaction Status Date / Time Iodinated Contrast Media Allergy Anaphylaxis Verified 04/17/23 00:02 [Iodinated Contrast Media - IV Dye] Review of Systems ROS Statement: Those systems with pertinent positive or pertinent negative responses have been documented in the HPI. Review of Systems: CONST: Denies fever EYES: Denies blurry vision ENT: Denies nasal congestion C/V: Denies Chest pain RESP: Denies shortness of breath GI: Endorses abdominal pain : Denies dysuria SKIN: Denies rash. MSK: Denies joint pain. NEURO: Denies headache ROS Other: All systems not noted in ROS Statement are negative. Past Medical History Past Medical History: Atrial Fibrillation, GERD/Reflux, Hypertension, Rheumatoid Arthritis (RA), Skin Disorder, Supraventricular Tachycardia (SVT) Additional Past Medical History / Comment(s): hx CROHN'S (takes tresa), IBS, chronic diarrhea, migraines-, hx ulcers, anemia, gout, kidney stones, psoriasis, bilateral tinnitis., pinched sciatic nerve, C-Diff 2017, neuropathy History of Any Multi-Drug Resistant Organisms: C-DIFF Date of last positivie culture/infection: stool MDRO Source:: 2017 Past Surgical History: Bowel Resection, Cardiac Ablation, Cholecystectomy, Heart Catheterization, Hernia Repair, Orthopedic Surgery, Tonsillectomy Additional Past Surgical History / Comment(s): 1/3 of stomach removed (partial gastrectomy), ulcers, bowel resections, fecal transplant 2017, bilateral knee arthroscopic surgery, EGD/colonoscopies, R inguinal hernia repair, bilat cataract removal, Past Anesthesia/Blood Transfusion Reactions: Blood Transfusion Reaction, Motion Sickness Additional Past Anesthesia/Blood Transfusion Reaction / Comment(s): BLOOD TRANSFUSION- BROKE OUT IN HIVES age 21 Past Psychological History: Anxiety Smoking Status: Never smoker Past Alcohol Use History: None Reported Past Drug Use History: None Reported - Past Family History Mother Family Medical History: Pulmonary Embolus Additional Family Medical History / Comment(s): AGE 73-[place], STROKE DURING CARATID PROCEDURE General Exam - General Exam Comments Initial Comments: General: Appears in mild distress. HEAD: Normal with no signs of head trauma. EYES: PERRLA, EOMI, conjunctiva normal, no discharge. ENT: Hearing grossly intact, normal oropharynx. RESPIRATORY: Clear breath sounds bilaterally. No wheezes, rales, or rhonchi. C/V: Regular rate and rhythm. S1 and S2 auscultated, no edema, peripheral pulses 2+ and intact throughout ABD: Abd is soft, nondistended. Mildly tender to palpation in the right abdomen. No guarding. No rebound tenderness. No peritoneal signs. EXT: Normal range of motion, no obvious deformity SKIN: No rashes or lesions observed on exposed skin. NEURO: Alert and oriented x 4. Limitations: no limitations Course Vital Signs 04/16/23 04/17/23 04/17/23 23:56 01:21 02:41 Temperature 98.0 F Pulse Rate 58 L 62 70 Respiratory 18 18 20 Rate Blood Pressure 172/75 180/75 179/77 O2 Sat by Pulse 100 99 98 Oximetry 04/17/23 05:00 Temperature Pulse Rate 63 Respiratory 18 Rate Blood Pressure 153/74 O2 Sat by Pulse 99 Oximetry Medical Decision Making - Medical Decision Making Was pt. sent in by a medical professional or institution (, PA, ASSISTANT PROFESSOR OF ART, urgent care, hospital, or longterm...) When possible be specific @ -No Did you speak to anyone other than the patient for history (EMS, parent, family, police, friend...)? What history was obtained from this source @ -No Did you review nursing and triage notes (agree or disagree)? Why? @ -I reviewed and agree with nursing and triage notes Were old charts reviewed (outside hosp., previous admission, EMS record, old EKG, old radiological studies, urgent care reports/EKG's, longterm records)? Report findings @ -Old charts reviewed Differential Diagnosis (chest pain, altered mental status, abdominal pain women, abdominal pain men, vaginal bleeding, weakness, fever, dyspnea, syncope, headache, dizziness, GI bleed, back pain, seizure, CVA, palpatations, mental health, musculoskeletal)? @ -Differential Abdominal Pain Men: Appendicitis, cholecystitis, diverticulosis, ischemic bowel, pancreatitis, hepa titis, UTI, gastroenteritis, AAA, incarcerated hernia, bowel obstruction, constipation, inflammatory bowel, hepatitis, peptic ulcer disease, splenic infarction, perforated viscus, testicular torsion, this is not meant to be an all-inclusive list EKG interpreted by me (3pts min.). @ -As above X-rays interpreted by me (1pt min.). @ -None done CT interpreted by me (1pt min.). @ -CT imaging remarkable for findings of enteritis but cannot rule out obstruction. No other obvious findings at this time. U/S interpreted by me (1pt. min.). @ -None done What testing was considered but not performed or refused? (CT, X-rays, U/S, labs )? Why? @ -None What meds were considered but not given or refused? Why? @ -None Did you discuss the management of the patient with other professionals (professionals i.e. DrJose, PA, ASSISTANT PROFESSOR OF ART, lab, RT, psych nurse, manager social responsibility, paper mill supervisor, teacher, weapons officer naval activity, case mgr)? Give summary @ -I spoke with the admitting team, ALIREZA Fischer of [facility] who accepted the patient. Was smoking cessation discussed for >3mins.? @ -No Was critical care preformed (if so, how long)? @ -No Were there social determinants of health that impacted care today? How? (Homelessness, low income, unemployed, alcoholism, drug addiction, tr ansportation, low edu. Level, literacy, decrease access to med. care, senior care, rehab)? @ -No Was there de-escalation of care discussed even if they declined (Discuss DNR or withdrawal of care, Hospice)? DNR status @ -No What co-morbidities impacted this encounter? (DM, HTN, Smoking, COPD, CAD, Cancer, CVA, ARF, Chemo, Hep., AIDS, mental health diagnosis, sleep apnea, morbid obesity)? @ -None Was patient admitted / discharged? Hospital course, mention meds given and route, prescriptions, significant lab abnormalities, going to OR and other pertinent info. @ -Based on the patient's presentation and physical exam, I'm concerned for abdominal etiology for his current symptoms. We will obtain an abdominal workup, CT without contrast as he is ALLERGIC to contrast dye. He was in agreement with this plan. Patient isn't frankly treated with IV morphine and Protonix as well as 1 L fluid bolus. Patient already received Zofran prior to arrival. EKG shows no signs of acute Ischemia.CT imaging shows enteritis but cannot rule out obstruction. No obvious obstruction seen by radiology. Vital signs within acceptable limits. Laboratory studies remarkable for chronic anemia which is stable. Slightly increased amylase and lipase which is likely reactive seconda ry to his symptoms. Remainder the labs within acceptable limits. I updated the patient. He has required multiple IV pain medication dosages in the department. He'll be admitted at this time for intractable abdominal pain, enteritis and IV fluid hydration. Surgery will be consulted for evaluation. He was in agreement this plan. I spoke with the admitting team, ALIREZA Fischer of [facility] who accepted the patient. Dr. Patten consulted. Undiagnosed new problem with uncertain prognosis? @ -No Drug Therapy requiring intensive monitoring for toxicity (Heparin, Nitro, Insulin, Cardizem)? @ -No Were any procedures done? @ -No Diagnosis/symptom? @ -Intractable abdominal pain, enteritis Acute, or Chronic, or Acute on Chronic? @ -Acute Uncomplicated (without systemic symptoms) or Complicated (systemic symptoms)? @ -complicated Side effects of treatment? @ -none Exacerbation, Progression, or Severe Exacerbation] @ -no Poses a threat to life or bodily function? @ -Possibly - Lab Data Result diagrams: 04/17/23 00:06 04/17/23 00:06 Lab Results 04/17/23 04/17/23 04/17/23 Range/Units 00:06 00:06 00:06 WBC 8.5 (3.8-10.6) k/uL RBC 2.69 L (4.30-5.90) m/uL Hgb 8.4 L (13.0-17.5) gm/dL Hct 27.3 L (39.0-53.0) % MCV 101.5 H (80.0-100.0) fL MCH 31.2 (25.0-35.0) pg MCHC 30.7 L (31.0-37.0) g/dL RDW 14.5 (11.5-15.5) % Plt Count 199 (150-450) k/uL MPV 7.3 Neutrophils % 85 % Lymphocytes % 9 % Monocytes % 4 % Eosinophils % 1 % Basophils % 0 % Neutrophils # 7.2 (1.3-7.7) k/uL Lymphocytes # 0.8 L (1.0-4.8) k/uL Monocytes # 0.3 (0-1.0) k/uL Eosinophils # 0.1 (0-0.7) k/uL Basophils # 0.0 (0-0.2) k/uL Hypochromasia Marked Macrocytosis Slight PT 11.4 (10.0-12.5) sec INR 1.0 (<1.2) APTT 22.9 (22.0-30.0) sec Sodium (137-145) mmol/L Potassium (3.5-5.1) mmol/L Chloride (98-107) mmol/L Carbon Dioxide (22-30) mmol/L Anion Gap mmol/L BUN (9-20) mg/dL Creatinine (0.66-1.25) mg/dL Est GFR (CKD-EPI)AfAm (>60 ml/min/1.73 sqM) Est GFR (CKD-EPI)NonAf (>60 ml/min/1.73 sqM) Glucose (74-99) mg/dL Plasma Lactic Acid Kal (0.7-2.0) mmol/L Calcium (8.4-10.2) mg/dL Total Bilirubin (0.2-1.3) mg/dL AST (17-59) U/L ALT (4-49) U/L Alkaline Phosphatase (38-126) U/L Total Protein (6.3-8.2) g/dL Albumin (3.5-5.0) g/dL Amylase (30-110) U/L Lipase (23-300) U/L Urine Color Colorless Urine Appearance Clear (Clear) Urine pH 5.5 (5.0-8.0) Ur Specific [place] 1.015 (1.001-1.035) Urine Protein Negative (Negative) Urine Glucose (UA) Negative (Negative) Urine Ketones Negative (Negative) Urine Blood Negative (Negative) Urine Nitrite Negative (Negative) Urine Bilirubin Negative (Negative) Urine Urobilinogen <2.0 (<2.0) mg/dL Ur Leukocyte Esterase Negative (Negative) 04/17/23 04/17/23 Range/Units 00:06 00:06 WBC (3.8-10.6) k/uL RBC (4.30-5.90) m/uL Hgb (13.0-17.5) gm/dL Hct (39.0-53.0) % MCV (80.0-100.0) fL MCH (25.0-35.0) pg MCHC (31.0-37.0) g/dL RDW (11.5-15.5) % Plt Count (150-450) k/uL MPV Neutrophils % % Lymphocytes % % Monocytes % % Eosinophils % % Basophils % % Neutrophils # (1.3-7.7) k/uL Lymphocytes # (1.0-4.8) k/uL Monocytes # (0-1.0) k/uL Eosinophils # (0-0.7) k/uL Basophils # (0-0.2) k/uL Hypochromasia Macrocytosis PT (10.0-12.5) sec INR (<1.2) APTT (22.0-30.0) sec Sodium 139 (137-145) mmol/L Potassium 4.7 (3.5-5.1) mmol/L Chloride 116 H (98-107) mmol/L Carbon Dioxide 15 L (22-30) mmol/L Anion Gap 8 mmol/L BUN 32 H (9-20) mg/dL Creatinine 1.18 (0.66-1.25) mg/dL Est GFR (CKD-EPI)AfAm 70 (>60 ml/min/1.73 sqM) Est GFR (CKD-EPI)NonAf 61 (>60 ml/min/1.73 sqM) Glucose 136 H (74-99) mg/dL Plasma Lactic Acid Kal 1.0 (0.7-2.0) mmol/L Calcium 8.2 L (8.4-10.2) mg/dL Total Bilirubin 0.4 (0.2-1.3) mg/dL AST 38 (17-59) U/L ALT 35 (4-49) U/L Alkaline Phosphatase 83 (38-126) U/L Total Protein 6.1 L (6.3-8.2) g/dL Albumin 2.8 L (3.5-5.0) g/dL Amylase 187 H (30-110) U/L Lipase 422 H (23-300) U/L Urine Color Urine Appearance (Clear) Urine pH (5.0-8.0) Ur Specific [place] (1.001-1.035) Urine Protein (Negative) Urine Glucose (UA) (Negative) Urine Ketones (Negative) Urine Blood (Negative) Urine Nitrite (Negative) Urine Bilirubin (Negative) Urine Urobilinogen (<2.0) mg/dL Ur Leukocyte Esterase (Negative) - EKG Data -: EKG Interpreted by Me EKG Comments: 12-lead Electrocardiogram Interpretation Note EKG was reviewed and interpreted by myself. 12-lead ECG performed at 2357 is interpreted by me as revealing sinus bradycardia with left bundle branch block and first-degree AV block at a rate of 58 beats per minute. Left axis deviation. IA interval is 254 ms, QRS duration is 129 ms, QTc is 434 ms.. There were no ST or T wave abnormalities to suggest myocardial ischemia or injury. R wave progression across the precordium was satisfactory. By my interpretation this EKG is non-diagnostic for acute ischemia. Disposition Clinical Impression: Intractable abdominal pain, Enteritis Disposition: ADMITTED IP TO THIS HOSP Condition: Stable Time of Disposition: 05:22
[2023-04-17 00:42] LABS: Partial Thromboplastin Time 22.9 sec (22.0-30.0); Prothrombin Time 11.4 sec (10.0-12.5)
[2023-04-17] MEDS ORDERED: HYDROmorphone 1 MG/ML 1 ML SYRINGE IVP STA ×3 (01:27→05:20)
[2023-04-17 01:40] LABS: Appearance,Urine Clear (Clear); Bilirubin,Urine Negative (Negative); Blood,Urine Negative (Negative); Color,Urine Colorless; Glucose,Urine (UA) Negative (Negative); Ketones,Urine Negative (Negative); Leukocyte Esterase,Urine Negative (Negative); Nitrite,Urine Negative (Negative); PH, Urine 5.5 (5.0-8.0); Protein,Urine Negative (Negative); Specific Gravity,Urine 1.015 (1.001-1.035); Urobilinogen,Urine <2.0 mg/dL (<2.0)
[2023-04-17] MEDS: SODIUM CHLORIDE 0.9% 1,000 ML IV SCH ×3 (03:31→23:49)
--- NOTE | 2023-04-17 05:18 | CT ---
EXAM: CT Abdomen and Pelvis Without Intravenous Contrast CLINICAL HISTORY: ITS.REASON CT Reason: abdominal pain TECHNIQUE: Axial computed tomography images of the abdomen and pelvis without intravenous contrast. CTDI is 6.3 mGy and DLP is 371.6 mGy-cm. This CT exam was performed using one or more of the following dose reduction techniques: automated exposure control, adjustment of the mA and/or kV according to patient size, and/or use of iterative reconstruction technique. COMPARISON: No relevant prior studies available. FINDINGS: Limitations: Limited evaluation in the absence of contrast. Lung bases: Unremarkable. No mass. No consolidation. Heart: Coronary artery calcifications. ABDOMEN: Liver: Unremarkable. Gallbladder and bile ducts: Unremarkable. No calcified stones. No ductal dilation. Pancreas: Unremarkable. No ductal dilation. Spleen: Unremarkable. No splenomegaly. Adrenals: Unremarkable. No mass. Kidneys and ureters: No evidence of obstructive renal calculi or signs of collecting system dilatation. Numerous nonobstructive calculi within the kidneys, the largest within the interpolar right measuring up to 7 mm. Stomach and bowel: Anastomosis noted in the right hemiabdomen which may be due to partial colectomy changes. Dilatation of the duodenum extending to the duodenojejunal junction with additional downstream thickening of proximal jejunal loops. Findings may relate to enteritis. Upstream obstruction is not excluded. This is poorly visualized. Postoperative changes at the gastroesophageal junction. PELVIS: Appendix: See above. Bladder: Unremarkable. No stones. Reproductive: Unremarkable as visualized. ABDOMEN and PELVIS: Intraperitoneal space: Unremarkable. No free air. No significant fluid collection. Bones/joints: Degenerative changes in the spine. No acute fracture. No dislocation. Soft tissues: Unremarkable. Vasculature: Atherosclerotic disease. Lymph nodes: Unremarkable. No enlarged lymph nodes. IMPRESSION: 1. Limited evaluation in the absence of contrast. 2. No evidence of obstructive renal calculi or signs of collecting system dilatation. 3. Numerous nonobstructive calculi within the kidneys, the largest within the interpolar right measuring up to 7 mm. 4. Dilatation of the duodenum extending to the duodenojejunal junction with additional downstream thickening of proximal jejunal loops. Findings may relate to enteritis. Upstream obstruction is not excluded. This is poorly visualized. 5. No other acute findings. 6. Incidental findings as described.
[2023-04-17] MEDS ORDERED: NALOXONE 0.4 MG/ML 1 ML VIAL IV PRN (05:22)
[2023-04-17] MEDS ORDERED: ONDANSETRON 4 MG/2 ML VIAL IVP PRN (05:22)
[2023-04-17] MEDS: HYDROmorphone 1 MG/ML 1 ML SYRINGE IVP PRN ×5 (09:26→23:49)
--- NOTE | 2023-04-17 12:11 | P.GSCN ---
History of Present Illness Consult date: 04/17/23 Reason for Consult: Abdominal pain History of present illness: 73-year-old male known to our service. Patient with history of Crohn's disease. Maintained on Humira. Ceases GI doctor every 6 months or so. Came to the hospital with pain that began Tuesday morning. It was an ache in his stomach. It was stabbing in nature. He had 3 episodes of vomiting. [place] bloated. 6 loose bowel movements. No rectal bleeding or melena. Last colonoscopy a few years ago. He had a recent EGD in August showing a anastomotic ulcer from previous gastrojejunostomy for ulcer disease. Pain is mostly in the right mid abdomen that radiates to his back. In CAT scan shows significant gastric distention and some inflamed proximal small bowel loops. Review of Systems The patient denies any acute changes in vision or hearing, no dysphagia or odynophagia, no chest pain or shortness of breath, no dysuria or hematuria, no headache, no runny nose, no rectal bleeding or melena, no unexplained weight loss Past Medical History Past Medical History: Atrial Fibrillation, GERD/Reflux, Hypertension, Rheumatoid Arthritis (RA), Skin Disorder, Supraventricular Tachycardia (SVT) Additional Past Medical History / Comment(s): hx CROHN'S (takes tresa), IBS, chronic diarrhea, migraines-, hx ulcers, anemia, gout, kidney stones, psoriasis, bilateral tinnitis., pinched sciatic nerve, C-Diff 2017, neuropathy History of Any Multi-Drug Resistant Organisms: C-DIFF Year Discovered:: stool MDRO Source:: 2017 Past Surgical History: Bowel Resection, Cardiac Ablation, Cholecystectomy, Heart Catheterization, Hernia Repair, Orthopedic Surgery, Tonsillectomy Additional Past Surgical History / Comment(s): 1/3 of stomach removed (partial gastrectomy), ulcers, bowel resections, fecal transplant 2017, bilateral knee arthroscopic surgery, EGD/colonoscopies, R inguinal hernia repair, bilat cataract removal, Past Anesthesia/Blood Transfusion Reactions: Blood Transfusion Reaction, Motion Sickness Additional Past Anesthesia/Blood Transfusion Reaction / Comm: BLOOD TRANSFUSION- BROKE OUT IN HIVES age 21 Past Psychological History: Anxiety Additional Psychological History / Comment(s): denies Smoking Status: Never smoker Past Alcohol Use History: None Reported Additional Past Alcohol Use History / Comment(s): every other day 2-3 beers per patient. Past Drug Use History: None Reported Additional Drug Use History / Comment(s): Hx of opiate dependency-on suboxone. - Past Family History Mother Family Medical History: Pulmonary Embolus Additional Family Medical History / Comment(s): AGE 73-[place], STROKE DURING CARATID PROCEDURE Medications and Allergies Home Medications Medication Instructions Recorded Confirmed Type Orphenadrine Citrate [Orphenadrine 100 mg PO BID 12/08/17 04/17/23 History Citrate ER] Febuxostat [Uloric] 80 mg PO DAILY 05/05/18 04/17/23 History amLODIPine [Norvasc] 10 mg PO DAILY 10/18/20 04/17/23 History Adalimumab [Humira(Cf) Pen] 40 mg SQ Q14D 08/16/22 04/17/23 History Buprenorphine HCl/Naloxone HCl 2 film SL DAILY 08/16/22 04/17/23 History [Suboxone 2 mg-0.5 mg Sl Film] Omeprazole [PriLOSEC] 40 mg PO AC-BRKFST #90 cap 08/19/22 04/17/23 Rx Diphenox-Atrop 2.5-0.025 mg 2 tab PO ACHS 12/24/22 04/17/23 History [Lomotil] Tamsulosin [Flomax] 0.4 mg PO DAILY #30 cap 12/26/22 04/17/23 Rx Allergies Allergy/AdvReac Type Severity Reaction Status Date / Time Iodinated Contrast Media Allergy Anaphylaxis Verified 04/17/23 11:39 [Iodinated Contrast Media - IV Dye] Surgical - Exam Vital Signs Temp Pulse Resp BP Pulse Ox 98.0 F 58 L 18 172/75 100 04/16/23 23:56 04/16/23 23:56 04/16/23 23:56 04/16/23 23:56 04/16/23 23:56 Physical exam: General: Well-developed, well-nourished HEENT: Normocephalic, sclerae nonicteric Abdomen: Mild distention, mild diffuse tenderness, multiple scars Extremities: No edema Neuro: Alert and oriented Results - Labs 04/17/23 00:06 04/17/23 00:06 Abnormal Lab Results - Last 24 Hours (Table) 04/17/23 04/17/23 Range/Units 00:06 00:06 RBC 2.69 L (4.30-5.90) m/uL Hgb 8.4 L (13.0-17.5) gm/dL Hct 27.3 L (39.0-53.0) % MCV 101.5 H (80.0-100.0) fL MCHC 30.7 L (31.0-37.0) g/dL Lymphocytes # 0.8 L (1.0-4.8) k/uL Chloride 116 H (98-107) mmol/L Carbon Dioxide 15 L (22-30) mmol/L BUN 32 H (9-20) mg/dL Glucose 136 H (74-99) mg/dL Calcium 8.2 L (8.4-10.2) mg/dL Total Protein 6.1 L (6.3-8.2) g/dL Albumin 2.8 L (3.5-5.0) g/dL Amylase 187 H (30-110) U/L Lipase 422 H (23-300) U/L Diabetes panel 04/17/23 Range/Units 00:06 Sodium 139 (137-145) mmol/L Potassium 4.7 (3.5-5.1) mmol/L Chloride 116 H (98-107) mmol/L Carbon Dioxide 15 L (22-30) mmol/L BUN 32 H (9-20) mg/dL Creatinine 1.18 (0.66-1.25) mg/dL Glucose 136 H (74-99) mg/dL Calcium 8.2 L (8.4-10.2) mg/dL AST 38 (17-59) U/L ALT 35 (4-49) U/L Alkaline Phosphatase 83 (38-126) U/L Total Protein 6.1 L (6.3-8.2) g/dL Albumin 2.8 L (3.5-5.0) g/dL Calcium panel 04/17/23 Range/Units 00:06 Calcium 8.2 L (8.4-10.2) mg/dL Albumin 2.8 L (3.5-5.0) g/dL Pituitary panel 04/17/23 Range/Units 00:06 Sodium 139 (137-145) mmol/L Potassium 4.7 (3.5-5.1) mmol/L Chloride 116 H (98-107) mmol/L Carbon Dioxide 15 L (22-30) mmol/L BUN 32 H (9-20) mg/dL Creatinine 1.18 (0.66-1.25) mg/dL Glucose 136 H (74-99) mg/dL Calcium 8.2 L (8.4-10.2) mg/dL Adrenal panel 04/17/23 Range/Units 00:06 Sodium 139 (137-145) mmol/L Potassium 4.7 (3.5-5.1) mmol/L Chloride 116 H (98-107) mmol/L Carbon Dioxide 15 L (22-30) mmol/L BUN 32 H (9-20) mg/dL Creatinine 1.18 (0.66-1.25) mg/dL Glucose 136 H (74-99) mg/dL Calcium 8.2 L (8.4-10.2) mg/dL Total Bilirubin 0.4 (0.2-1.3) mg/dL AST 38 (17-59) U/L ALT 35 (4-49) U/L Alkaline Phosphatase 83 (38-126) U/L Total Protein 6.1 L (6.3-8.2) g/dL Albumin 2.8 L (3.5-5.0) g/dL Assessment and Plan (1) Abdominal pain Narrative/Plan: 73-year-old male with abdominal pain. Gastric distention noted. Some proximal small bowel loops also really distended. Most likely etiology is exacerbation of his underlying Crohn's disease. Unfortunately GI not available. Will order IV steroids at this time. Discussed option of nasogastric tube placement he would like to avoid. Decided to place a nasogastric tube if there is further vomiting. Continue bowel rest. Current Visit: No Status: Acute Code(s): R10.9 - UNSPECIFIED ABDOMINAL PAIN SNOMED Code(s): 65489678
[2023-04-17] MEDS: methylPREDNISolone SOD SUCCI 125 MG/2 ML VIAL IV SCH ×2 (12:40→20:25)
--- NOTE | 2023-04-17 12:58 | P.HPIM ---
History of Present Illness H&P Date: 04/17/23 History of present illness; patient is a 73-year-old gentleman with past medical history significant for hypertension, Crohn's disease, was brought to the ER for abdominal pain. Patient stated that he was all right yesterday morning when he started noticing right lower quadrant abdominal pain. Abdominal pain was intermittent, radiating to his back, no aggravating or defect as well as abdominal pain. Patient also started having nausea and vomiting at that time. Denied any blood in his vomitus. Patient was passing gas and having bowel movements. Denied any blood in the stools. There was no complain of any fever or chills. No complain of any sick contacts. Denies any lightheadedness or dizziness. Abdominal pain continued to persist and that so patient came to the ER. Initial lab work done in the ER showed WBC 8.5, hemoglobin 8.4, platelet count 199, sodium 138, potassium 4.7, chloride 116, carbonate 15, BUN 32, creatinine 1.18, glucose 136, amylase 187, lipase 422 EKG done in the ER showed heart rate of 58, left axis deviation,no ST segment elevation or depression seen, no T-wave inversions seen. CT abdominal and pelvis done showed no evidence of obstructive renal calculi or signs of collecting system dilatation. Numerous nonobstructive calculi within the kidneys. Dilatation off the duodenum extending to the due to jejunal junction with additional downstream thickening of proximal jejunal loops Patient admitted to internal medicine service REVIEW OF SYSTEMS: CONSTITUTIONAL: No fever, no malaise, no fatigue. HEENT: No recent visual problems or hearing problems. Denied any sore throat. CARDIOVASCULAR: No chest pain, orthopnea, PND, no palpitations, no syncope. PULMONARY: No shortness of breath, no cough, no hemoptysis. GASTROINTESTINAL: As mentioned NEUROLOGICAL: No headaches, no weakness, no numbness. HEMATOLOGICAL: Denies any bleeding or petechiae. GENITOURINARY: Denies any burning micturition, frequency, or urgency. MUSCULOSKELETAL/RHEUMATOLOGICAL: Denies any joint pain, swelling, or any muscle pain. ENDOCRINE: Denies any polyuria or polydipsia. The rest of the 14-point review of systems is negative. PHYSICAL EXAMINATION: GENERAL: The patient is alert and oriented x3, not in any acute distress. Well developed, well nourished. HEENT: Pupils are round and equally reacting to light. EOMI. No scleral icterus. No conjunctival pallor. Normocephalic, atraumatic. No pharyngeal erythema. No thyromegaly. CARDIOVASCULAR: S1 and S2 present. No murmurs, rubs, or gallops. PULMONARY: Chest is clear to auscultation, no wheezing or crackles. ABDOMEN: Soft, nontender, nondistended, normoactive bowel sounds. No palpable organomegaly. MUSCULOSKELETAL: No joint swelling or deformity. EXTREMITIES: No cyanosis, clubbing, or pedal edema. NEUROLOGICAL: Gross neurological examination did not reveal any focal deficits. SKIN: No rashes. Assessment and plan Abdominal pain Enteritis Crohn's disease Hypertension Hyperuricemia Monitor vital signs Monitor CBC Monitor CMP Keep patient nothing by mouth Continue IV fluids Continue pain management Continue antiemetics Resume home meds Consult general surgery Labs and medication were reviewed.. Continue same treatment. Continue with symptomatic treatment. Resume home medication. Monitor labs and vitals. DVT and GI prophylaxis. Further recommendations as per clinical course of the patient Dictation was produced using [employer] dictation software. please excuse any grammatical, word or spelling errors. Past Medical History Past Medical History: Atrial Fibrillation, GERD/Reflux, Hypertension, Rheumatoid Arthritis (RA), Skin Disorder, Supraventricular Tachycardia (SVT) Additional Past Medical History / Comment(s): hx CROHN'S (takes tresa), IBS, chronic diarrhea, migraines-, hx ulcers, anemia, gout, kidney stones, psoriasis, bilateral tinnitis., pinched sciatic nerve, C-Diff 2017, neuropathy History of Any Multi-Drug Resistant Organisms: C-DIFF Date of last positivie culture/infection: stool MDRO Source:: 2017 Past Surgical History: Bowel Resection, Cardiac Ablation, Cholecystectomy, Heart Catheterization, Hernia Repair, Orthopedic Surgery, Tonsillectomy Additional Past Surgical History / Comment(s): 1/3 of stomach removed (partial gastrectomy), ulcers, bowel resections, fecal transplant 2017, bilateral knee arthroscopic surgery, EGD/colonoscopies, R inguinal hernia repair, bilat cataract removal, Past Anesthesia/Blood Transfusion Reactions: Blood Transfusion Reaction, Motion Sickness Additional Past Anesthesia/Blood Transfusion Reaction / Comment(s): BLOOD TRANSFUSION- BROKE OUT IN [place]ES age 21 Past Psychological History: Anxiety Additional Psychological History / Comment(s): denies Smoking Status: Never smoker Past Alcohol Use History: None Reported Additional Past Alcohol Use History / Comment(s): every other day 2-3 beers per patient. Past Drug Use History: None Reported Additional Drug Use History / Comment(s): Hx of opiate dependency-on suboxone. - Past Family History Mother Family Medical History: Pulmonary Embolus Additional Family Medical History / Comment(s): AGE 73-[place], STROKE DURING CARATID PROCEDURE Medications and Allergies Home Medications Medication Instructions Recorded Confirmed Type Orphenadrine Citrate [Orphenadrine 100 mg PO BID 12/08/17 01/06/23 History Citrate ER] Febuxostat [Uloric] 80 mg PO DAILY 05/05/18 01/06/23 History amLODIPine [Norvasc] 10 mg PO DAILY 10/18/20 01/06/23 History Acetaminophen Tab [Tylenol] 650 mg PO Q6HR PRN tab 07/19/22 01/06/23 Rx Adalimumab [Humira(Cf) Pen] 40 mg SQ Q14D 08/16/22 01/06/23 History Buprenorphine HCl/Naloxone HCl 2 film SL DAILY 08/16/22 01/06/23 History [Suboxone 2 mg-0.5 mg Sl Film] Omeprazole [PriLOSEC] 40 mg PO AC-BRKFST #90 cap 08/19/22 01/06/23 Rx Diphenox-Atrop 2.5-0.025 mg 2 tab PO QID PRN 12/24/22 01/06/23 History [Lomotil] Lipase/Protease/Amylase [Jean Naylor 1 cap PO DAILY PRN 12/24/22 01/06/23 History 36,000 Unit Capsule] Lipase/Protease/Amylase [Jean Naylor 3 cap PO AC-TID 12/24/22 01/06/23 History 36,000 Unit Capsule] traZODone HCL [Desyrel] 50 mg PO DIRECTED 12/24/22 01/06/23 History Tamsulosin [Flomax] 0.4 mg PO DAILY #30 cap 12/26/22 01/06/23 Rx Ketorolac [Toradol] 10 mg PO Q6HR PRN #10 tab 01/06/23 Rx Allergies Allergy/AdvReac Type Severity Reaction Status Date / Time Iodinated Contrast Media Allergy Anaphylaxis Verified 04/17/23 00:02 [Iodinated Contrast Media - IV Dye] Physical Exam Vitals: Vital Signs Temp Pulse Pulse Resp BP BP Pulse Ox 04/17/23 07:47 62 18 147/88 98 04/17/23 07:00 98.1 F 57 L 20 169/67 97 04/17/23 05:00 63 18 153/74 99 04/17/23 02:41 70 20 179/77 98 04/17/23 01:21 62 18 180/75 99 04/16/23 23:56 98.0 F 58 L 18 172/75 100 Intake and Output 04/16/23 04/17/23 04/17/23 22:59 06:59 14:59 Other: Weight 61.235 kg 61.235 kg Results CBC & Chem 7: 04/17/23 00:06 04/17/23 00:06 Labs: Abnormal Lab Results - Last 24 Hours (Table) 04/17/23 04/17/23 Range/Units 00:06 00:06 RBC 2.69 L (4.30-5.90) m/uL Hgb 8.4 L (13.0-17.5) gm/dL Hct 27.3 L (39.0-53.0) % MCV 101.5 H (80.0-100.0) fL MCHC 30.7 L (31.0-37.0) g/dL Lymphocytes # 0.8 L (1.0-4.8) k/uL Chloride 116 H (98-107) mmol/L Carbon Dioxide 15 L (22-30) mmol/L BUN 32 H (9-20) mg/dL Glucose 136 H (74-99) mg/dL Calcium 8.2 L (8.4-10.2) mg/dL Total Protein 6.1 L (6.3-8.2) g/dL Albumin 2.8 L (3.5-5.0) g/dL Amylase 187 H (30-110) U/L Lipase 422 H (23-300) U/L Thrombosis Risk Factor Assmnt - Choose All That Apply Any of the Below Risk Factors Present?: No Other Risk Factors: Yes Each Risk Factor Represents 2 Points: Age 61-74 years Other congenital or acquired thrombophilia - If yes, enter type in comment: No Thrombosis Risk Factor Assessment Total Risk Factor Score: 2 Thrombosis Risk Factor Assessment Level: Low Risk
[2023-04-17] MEDS: NON FORMULARY DRUG (Buprenorphine Hcl/Naloxone Hcl [Suboxone 2 Mg-0.5 Mg Sl Film] 1 EACH F SUBLINGUAL SCH (14:15)
[2023-04-18] MEDS: HYDROmorphone 1 MG/ML 1 ML SYRINGE IVP PRN ×6 (03:03→20:54)
[2023-04-18] MEDS: methylPREDNISolone SOD SUCCI 125 MG/2 ML VIAL IV SCH ×3 (05:46→19:52)
[2023-04-18] MEDS: PANTOPRAZOLE 40 MG TABLET PO SCH (05:46)
[2023-04-18] MEDS: TAMSULOSIN 0.4 MG CAP.ER.24H PO SCH (08:03)
[2023-04-18] MEDS: amLODIPine 10 MG TAB PO SCH (08:03)
[2023-04-18] MEDS: NON FORMULARY DRUG (Buprenorphine Hcl/Naloxone Hcl [Suboxone 2 Mg-0.5 Mg Sl Film] 1 EACH F SUBLINGUAL SCH ×2 (08:04→14:02)
[2023-04-18] MEDS: allopurinoL 100 MG TAB PO SCH (08:04)
[2023-04-18] MEDS: SODIUM CHLORIDE 0.9% 1,000 ML IV SCH ×2 (08:04→16:50)
--- NOTE | 2023-04-18 09:57 | P.PN ---
Subjective Progress Note Date: 04/18/23 Principal diagnosis: Crohn's exacerbation Patient feels better today. No nausea or vomiting overnight. He feels less bloated. Less pain after starting steroids. Objective - Vital Signs Vital signs: Vital Signs Temp 97.6 F 04/18/23 07:00 Pulse 60 04/18/23 07:00 Resp 16 04/18/23 07:00 BP 130/63 04/18/23 07:00 Pulse Ox 99 04/18/23 07:00 FiO2 Intake & Output 04/17/23 04/18/23 04/18/23 18:59 06:59 18:59 Weight 61.235 kg Other: Voiding Method Toilet Toilet # Voids 2 2 - Exam Abdomen: Soft, mild mid abdominal tenderness, no rebound or guarding - Labs CBC & Chem 7: 04/17/23 00:06 04/17/23 00:06 Assessment and Plan (1) Abdominal pain Narrative/Plan: Overall the patient seems to be improving. Continue IV steroids. Begin clear liquids. Recheck abdominal x-rays tomorrow. Current Visit: No Status: Acute Code(s): R10.9 - UNSPECIFIED ABDOMINAL PAIN SNOMED Code(s): 57192452
[2023-04-18 10:33] LABS: Basophils # (A) 0.01 X 10*3/uL (0.00-0.10); Basophils % (A) 0.2 %; Eosinophils # (A) 0 X 10*3/uL (0.04-0.35); Eosinophils % (A) 0 %; HCT 23.4 % (39.6-50.0); HGB 7.1 g/dL (13.0-17.0); Lymphocytes # (A) 0.66 X 10*3/uL (0.90-5.00); Lymphocytes % (A) 13.8 %; MCH 30.5 pg (27.0-32.0); MCHC 30.3 g/dL (32.0-37.0); MCV 100.4 FL (80.0-97.0); Mean Platelet Volume 11.9 FL (9.5-12.2); Monocytes # (A) 0.07 X 10*3/uL (0.20-1.00); Monocytes % (A) 1.5 %; NRBC Per 100 WBC 0 X 10*3/uL (0.00-0.01); Neutrophils # (A) 4.01 X 10*3/uL (1.80-7.70); Neutrophils % (A) 84.1 %; Platelet Count 166 X 10*3/uL (140-440); RBC 2.33 X 10*6/uL (4.40-5.60); RDW 14.4 % (11.5-14.5); WBC 4.77 X 10*3/uL (4.50-10.00)
[2023-04-18 10:53] LABS: BUN/Creat Ratio 27.33 Ratio (12.00-20.00); Blood Urea Nitrogen 24.6 mg/dL (9.0-27.0); Calcium 7.8 mg/dL (8.7-10.3); Carbon Dioxide 14.1 mmol/L (21.6-31.8); Chloride 112 mmol/L (96-109); Glucose 142 mg/dL (70-110); Potassium 4.3 mmol/L (3.5-5.5); Sodium 136 mmol/L (135-145)
--- NOTE | 2023-04-18 12:02 | P.PN ---
Subjective Progress Note Date: 04/18/23 patient is a 73-year-old gentleman with past medical history significant for hypertension, Crohn's disease, was brought to the ER for abdominal pain. Patient stated that he was all right yesterday morning when he started noticing right lower quadrant abdominal pain. Abdominal pain was intermittent, radiating to his back, no aggravating or defect as well as abdominal pain. Patient also started having nausea and vomiting at that time. Denied any blood in his vomitus. Patient was passing gas and having bowel movements. Denied any blood in the stools. There was no complain of any fever or chills. No complain of any sick contacts. Denies any lightheadedness or dizziness. Abdominal pain continued to persist and that so patient came to the ER. Initial lab work done in the ER showed WBC 8.5, hemoglobin 8.4, platelet count 199, sodium 138, potassium 4.7, chloride 116, carbonate 15, BUN 32, creatinine 1.18, glucose 136, amylase 187, lipase 422 EKG done in the ER showed heart rate of 58, left axis deviation,no ST segment elevation or depression seen, no T-wave inversions seen. CT abdominal and pelvis done showed no evidence of obstructive renal calculi or signs of collecting system dilatation. Numerous nonobstructive calculi within the kidneys. Dilatation off the duodenum extending to the due to jejunal junction with additional downstream thickening of proximal jejunal loops Patient admitted to internal medicine service 04/18/23. Patient seen and examined. Denies any nausea vomiting. Passing gas. States abdominal pain has improved. REVIEW OF SYSTEMS: CONSTITUTIONAL: No fever, no malaise,. CARDIOVASCULAR: No chest pain, no palpitations, no syncope. PULMONARY: No shortness of breath, no cough, GASTROINTESTINAL: As mentioned above NEUROLOGICAL: No headaches, no weakness, PHYSICAL EXAMINATION: GENERAL: The patient is alert and oriented x3, not in any acute distress. Well developed, well nourished. HEENT: Pupils are round and equally reacting to light. EOMI. No scleral icterus. No conjunctival pallor. Normocephalic, atraumatic. No pharyngeal erythema. No thyromegaly. CARDIOVASCULAR: S1 and S2 present. No murmurs, rubs, or gallops. PULMONARY: Chest is clear to auscultation, no wheezing or crackles. ABDOMEN: Soft, nontender, nondistended, normoactive bowel sounds. No palpable organomegaly. MUSCULOSKELETAL: No joint swelling or deformity. EXTREMITIES: No cyanosis, clubbing, or pedal edema. NEUROLOGICAL: Gross neurological examination did not reveal any focal deficits. SKIN: No rashes. Assessment and plan Abdominal pain Enteritis Acute exacerbation of Crohn's disease Hypertension Hyperuricemia Monitor vital signs Monitor CBC Monitor CMP Started on clear liquid diet Continue IV steroids Continue IV fluids Continue pain management Continue antiemetics Gen. surgery evaluated patient, attributes abdominal pain is related to Crohn's disease, agree with IV steroids and continuation of bowel rest, started on clear liquid today. We will repeat abdominal x-ray in the morning Labs and medication were reviewed.. Continue same treatment. Continue with symptomatic treatment. Resume home medication. Monitor labs and vitals. DVT and GI prophylaxis. Further recommendations as per clinical course of the patient Dictation was produced using [employer] dictation software. please excuse any g rammatical, word or spelling errors. Objective - Vital Signs Vital signs: Vital Signs Temp 97.6 F 04/18/23 07:00 Pulse 60 04/18/23 07:00 Resp 16 04/18/23 07:00 BP 130/63 04/18/23 07:00 Pulse Ox 99 04/18/23 07:00 FiO2 Intake & Output 04/17/23 04/18/23 04/18/23 18:59 06:59 18:59 Weight 61.235 kg Other: Voiding Method Toilet Toilet # Voids 2 2 - Labs CBC & Chem 7: 04/18/23 05:17 04/18/23 05:17
[2023-04-19] MEDS: HYDROmorphone 1 MG/ML 1 ML SYRINGE IVP PRN ×5 (00:58→21:32)
[2023-04-19] MEDS: methylPREDNISolone SOD SUCCI 125 MG/2 ML VIAL IV SCH ×3 (04:47→21:32)
[2023-04-19] MEDS: PANTOPRAZOLE 40 MG TABLET PO SCH (06:00)
[2023-04-19] MEDS: SODIUM CHLORIDE 0.9% 1,000 ML IV SCH ×2 (06:00→13:34)
--- NOTE | 2023-04-19 07:40 | XR ---
EXAMINATION TYPE: XR abdomen 2V DATE OF EXAM: 04/19/2023 COMPARISON: 01/06/2023 INDICATION: Small bowel obstruction TECHNIQUE: Abdomen is examined in supine and upright view FINDINGS: Dilated small bowel loops are present. Differential air-fluid levels within the midabdomen. Some colo tong bowel gas is within the ascending and transverse colon. Bowel surgery is evident on the right. Psoas margins are poorly visualized. No organomegaly is present. No free air is evident. IMPRESSION: 1. Scattered differential air-fluid levels with colonic bowel gas present. Findings can be compatible with partial small bowel obstruction.
[2023-04-19] MEDS: TAMSULOSIN 0.4 MG CAP.ER.24H PO SCH (08:34)
[2023-04-19] MEDS: amLODIPine 10 MG TAB PO SCH (08:34)
[2023-04-19] MEDS: allopurinoL 100 MG TAB PO SCH (08:34)
[2023-04-19 08:43] LABS: Basophils # (A) 0.01 X 10*3/uL (0.00-0.10); Basophils % (A) 0.1 %; Eosinophils # (A) 0 X 10*3/uL (0.04-0.35); Eosinophils % (A) 0 %; HCT 25.9 % (39.6-50.0); HGB 7.6 g/dL (13.0-17.0); Lymphocytes # (A) 0.65 X 10*3/uL (0.90-5.00); Lymphocytes % (A) 6.8 %; MCH 30.3 pg (27.0-32.0); MCHC 29.3 g/dL (32.0-37.0); MCV 103.2 FL (80.0-97.0); Mean Platelet Volume 10.8 FL (9.5-12.2); Monocytes # (A) 0.31 X 10*3/uL (0.20-1.00); Monocytes % (A) 3.3 %; NRBC Per 100 WBC 0 X 10*3/uL (0.00-0.01); Neutrophils % (A) 89.4 %; Platelet Count 189 X 10*3/uL (140-440); RBC 2.51 X 10*6/uL (4.40-5.60); RDW 14.9 % (11.5-14.5); WBC 9.51 X 10*3/uL (4.50-10.00)
--- NOTE | 2023-04-19 09:02 | P.PN ---
Subjective Progress Note Date: 04/19/23 Principal diagnosis: abdominal pain This is a 73-year-old male with a significant medical history for hypertension, and Crohn's disease is brought to the ER for abdominal pain. Patient reports right lower quadrant abdominal pain that was intermittent and radiated to his back. Easy of the abdomen and pelvis was completed and showed dilation of the duodenum extending to the jejunal junction with additional downstream thickening of proximal jejunal loops. Abdominal x-ray from this morning shows colonic bowel gas present compatible with small bowel obstruction. GI is on consult. Patient is seen this morning sitting up in bed, reports he is feeling well. Objective - Vital Signs Vital signs: Vital Signs Temp 97.5 F L 04/19/23 07:00 Pulse 52 L 04/19/23 07:00 Resp 16 04/19/23 07:00 BP 144/68 04/19/23 07:00 Pulse Ox 98 04/19/23 07:00 FiO2 Intake & Output 04/18/23 04/19/23 04/19/23 18:59 06:59 18:59 Other: Voiding Method Toilet # Voids 2 2 # Bowel Movements 1 - Constitutional General appearance: Present: cooperative, no acute distress - EENT Eyes: Present: PERRLA - Neck Neck: Present: normal ROM. Absent: lymphadenopathy, rigidity - Respiratory Respiratory: bilateral: CTA - Cardiovascular Rhythm: regular Heart sounds: normal: S1, S2 - Gastrointestinal General gastrointestinal: Present: soft. Absent: tenderness - Integumentary Integumentary: Present: normal, normal turgor - Psychiatric Psychiatric: Present: A&O x's 3, appropriate affect, intact judgment & insight - Labs CBC & Chem 7: 04/19/23 05:40 04/18/23 05:17 Labs: Abnormal Lab Results - Last 24 Hours (Table) 04/18/23 04/18/23 04/19/23 Range/Units 05:17 05:17 05:40 RBC 2.33 L 2.51 L (4.40-5.60) X 10*6/uL Hgb 7.1 L 7.6 L (13.0-17.0) g/dL Hct 23.4 L 25.9 L (39.6-50.0) % MCV 100.4 H 103.2 H (80.0-97.0) FL MCHC 30.3 L 29.3 L (32.0-37.0) g/dL RDW 14.9 H (11.5-14.5) % Neutrophils # 8.50 H (1.80-7.70) X 10*3/uL Lymphocytes # 0.66 L 0.65 L (0.90-5.00) X 10*3/uL Monocytes # 0.07 L (0.20-1.00) X 10*3/uL Eosinophils # 0 L 0 L (0.04-0.35) X 10*3/uL Chloride 112 H (96-109) mmol/L Carbon Dioxide 14.1 L (21.6-31.8) mmol/L BUN/Creatinine Ratio 27.33 H (12.00-20.00) Ratio Glucose 142 H (70-110) mg/dL Calcium 7.8 L (8.7-10.3) mg/dL Assessment and Plan (1) Abdominal pain Current Visit: No Status: Acute Code(s): R10.9 - UNSPECIFIED ABDOMINAL PAIN SNOMED Code(s): 72663812 (2) Crohns disease Current Visit: No Status: Acute Code(s): K50.90 - CROHN'S DISEASE, UNSPECIFIED, WITHOUT COMPLICATIONS SNOMED Code(s): 95685155 (3) Hypertension Current Visit: No Status: Acute Code(s): I10 - ESSENTIAL (PRIMARY) HYPERTENSION SNOMED Code(s): 65551223 (4) Opiate dependence Current Visit: No Status: Acute Code(s): F11.20 - OPIOID DEPENDENCE, UNCOMPLICATED SNOMED Code(s): 05819536 Plan: Appreciate recommendations from surgeon. CBC and CMP in the morning. Patient seen and evaluated by nurse practitioner, physician in agreement with plan
[2023-04-19 09:14] LABS: BUN/Creat Ratio 19.88 Ratio (12.00-20.00); Blood Urea Nitrogen 15.9 mg/dL (9.0-27.0); Glucose 136 mg/dL (70-110)
[2023-04-19 09:15] LABS: ALT 59 U/L (10-49); AST 33 U/L (14-35); Albumin 2.7 g/dL (3.8-4.9); Albumin/Globulin Ratio 1.08 Ratio (1.60-3.17); Alkaline Phosphatase 127 U/L (41-126); Calcium 7.8 mg/dL (8.7-10.3); Carbon Dioxide 18.4 mmol/L (21.6-31.8); Chloride 113 mmol/L (96-109); Globulin 2.5 g/dL (1.6-3.3); Potassium 4.5 mmol/L (3.5-5.5); Sodium 138 mmol/L (135-145); Total Bilirubin <0.2 mg/dL (0.3-1.2); Total Protein 5.2 g/dL (6.2-8.2)
[2023-04-19] MEDS: NON FORMULARY DRUG (Buprenorphine Hcl/Naloxone Hcl [Suboxone 2 Mg-0.5 Mg Sl Film] 1 EACH F SUBLINGUAL SCH (09:28)
[2023-04-19 14:25] VITALS: BMI 17.3
--- NOTE | 2023-04-19 15:29 | P.PN ---
Subjective Progress Note Date: 04/19/23 CHIEF COMPLAINT: Crohn's exacerbation HISTORY OF PRESENT ILLNESS: Patient reports that he is feeling better. He is having watery stools. He reports decrease abdominal pain. He reports no blood in the stools. He is asking for increase in diet. Tolerating clear liquids. He is currently on IV steroids. Afebrile. WBC 9.5 Hgb 7.6 abdominal x-ray scattered differential air-fluid levels with clonic as present. Findings can be compatible with a partial small bowel obstruction. PHYSICAL EXAM: VITAL SIGNS: Reviewed. GENERAL: Well-developed in no acute distress. ABDOMEN: Soft. Mildly distended. Mild tenderness with palpation on right side NEUROLOGIC: Alert and oriented. Cranial nerves II through XII grossly intact. ASSESSMENT: 1. Crohn's exacerbation 2. Abdominal pain PLAN: -Advance diet to regular -Encouraged patient to increase activity level Physician Prep Person note has been reviewed by physician. Signing provider agrees with the documented findings, assessment, and plan of care. Objective - Vital Signs Vital signs: Vital Signs Temp 97.5 F L 04/19/23 07:00 Pulse 52 L 04/19/23 07:00 Resp 16 04/19/23 07:00 BP 144/68 04/19/23 07:00 Pulse Ox 98 04/19/23 07:00 FiO2 Intake & Output 04/18/23 04/19/23 04/19/23 18:59 06:59 18:59 Intake Total 478 Balance 478 Intake: Oral 478 Other: Voiding Method Toilet # Voids 2 2 # Bowel Movements 1 - Labs CBC & Chem 7: 04/19/23 05:40 04/19/23 05:40 Labs: Abnormal Lab Results - Last 24 Hours (Table) 04/19/23 04/19/23 Range/Units 05:40 05:40 RBC 2.51 L (4.40-5.60) X 10*6/uL Hgb 7.6 L (13.0-17.0) g/dL Hct 25.9 L (39.6-50.0) % MCV 103.2 H (80.0-97.0) FL MCHC 29.3 L (32.0-37.0) g/dL RDW 14.9 H (11.5-14.5) % Neutrophils # 8.50 H (1.80-7.70) X 10*3/uL Lymphocytes # 0.65 L (0.90-5.00) X 10*3/uL Eosinophils # 0 L (0.04-0.35) X 10*3/uL Chloride 113 H (96-109) mmol/L Carbon Dioxide 18.4 L (21.6-31.8) mmol/L Glucose 136 H (70-110) mg/dL Calcium 7.8 L (8.7-10.3) mg/dL Total Bilirubin <0.2 L (0.3-1.2) mg/dL ALT 59 H (10-49) U/L Alkaline Phosphatase 127 H (41-126) U/L Total Protein 5.2 L (6.2-8.2) g/dL Albumin 2.7 L (3.8-4.9) g/dL Albumin/Globulin Ratio 1.08 L (1.60-3.17) Ratio
[2023-04-20] MEDS: HYDROmorphone 1 MG/ML 1 ML SYRINGE IVP PRN ×3 (01:41→10:36)
[2023-04-20] MEDS: SODIUM CHLORIDE 0.9% 1,000 ML IV SCH ×2 (02:43→08:34)
[2023-04-20] MEDS: methylPREDNISolone SOD SUCCI 125 MG/2 ML VIAL IV SCH ×2 (05:49→14:12)
[2023-04-20] MEDS: PANTOPRAZOLE 40 MG TABLET PO SCH (05:49)
[2023-04-20 08:05] VITALS: BP 159/64; PULSE 53; RESP 14; TEMP 97.5
[2023-04-20] MEDS: allopurinoL 100 MG TAB PO SCH (08:33)
[2023-04-20] MEDS: amLODIPine 10 MG TAB PO SCH (08:33)
[2023-04-20] MEDS: TAMSULOSIN 0.4 MG CAP.ER.24H PO SCH (08:34)
[2023-04-20] MEDS: NON FORMULARY DRUG (Buprenorphine Hcl/Naloxone Hcl [Suboxone 2 Mg-0.5 Mg Sl Film] 1 EACH F SUBLINGUAL SCH (09:13)
[2023-04-20 11:10] LABS: HCT 23.9 % (39.6-50.0); MCH 30.3 pg (27.0-32.0); MCHC 29.3 g/dL (32.0-37.0); MCV 103.5 FL (80.0-97.0); Mean Platelet Volume 11.1 FL (9.5-12.2); NRBC Per 100 WBC 0 X 10*3/uL (0.00-0.01); Platelet Count 172 X 10*3/uL (140-440); RBC 2.31 X 10*6/uL (4.40-5.60); RDW 14.6 % (11.5-14.5); WBC 8.52 X 10*3/uL (4.50-10.00)
[2023-04-20 11:16] LABS: ALT 56 U/L (10-49); AST 39 U/L (14-35); Albumin 2.6 g/dL (3.8-4.9); Albumin/Globulin Ratio 1.18 Ratio (1.60-3.17); Alkaline Phosphatase 104 U/L (41-126); BUN/Creat Ratio 19.11 Ratio (12.00-20.00); Blood Urea Nitrogen 17.2 mg/dL (9.0-27.0); Calcium 7.5 mg/dL (8.7-10.3); Chloride 112 mmol/L (96-109); Globulin 2.2 g/dL (1.6-3.3); Glucose 184 mg/dL (70-110); Potassium 4.1 mmol/L (3.5-5.5); Sodium 139 mmol/L (135-145); Total Bilirubin <0.2 mg/dL (0.3-1.2); Total Protein 4.8 g/dL (6.2-8.2)
--- NOTE | 2023-04-20 13:38 | P.PN ---
Subjective Progress Note Date: 04/20/23 CHIEF COMPLAINT: Crohn's exacerbation HISTORY OF PRESENT ILLNESS: Patient is tolerating regular diet. He reports that abdominal pain continues to improve each day. He denies any nausea or vomiting. He does feel ready for discharge. PHYSICAL EXAM: VITAL SIGNS: Reviewed. GENERAL: Well-developed in no acute distress. ABDOMEN: Soft. Mildly distended. Nontender NEUROLOGIC: Alert and oriented. Cranial nerves II through XII grossly intact. ASSESSMENT: 1. Crohn's exacerbation 2. Abdominal pain improved PLAN: -Patient can be discharge from surgical standpoint -Steroid management per medicine service Physician Director Educational Radio note has been reviewed by physician. Signing provider agrees with the documented findings, assessment, and plan of care. Objective - Vital Signs Vital signs: Vital Signs Temp 97.5 F L 04/20/23 07:00 Pulse 53 L 04/20/23 07:00 Resp 14 04/20/23 07:00 BP 159/64 04/20/23 07:00 Pulse Ox 96 04/20/23 07:00 FiO2 Intake & Output 04/19/23 04/20/23 04/20/23 18:59 06:59 18:59 Intake Total 1246 118 Balance 1246 118 Weight 61.235 kg Intake: Oral 1246 118 Other: Voiding Method Toilet # Voids 3 2 - Labs CBC & Chem 7: 04/20/23 05:40 04/20/23 05:40 Labs: Abnormal Lab Results - Last 24 Hours (Table) 04/20/23 04/20/23 Range/Units 05:40 05:40 RBC 2.31 L (4.40-5.60) X 10*6/uL Hgb 7.0 L (13.0-17.0) g/dL Hct 23.9 L (39.6-50.0) % MCV 103.5 H (80.0-97.0) FL MCHC 29.3 L (32.0-37.0) g/dL RDW 14.6 H (11.5-14.5) % Chloride 112 H (96-109) mmol/L Carbon Dioxide 17.0 L (21.6-31.8) mmol/L Glucose 184 H (70-110) mg/dL Calcium 7.5 L (8.7-10.3) mg/dL Total Bilirubin <0.2 L (0.3-1.2) mg/dL AST 39 H (14-35) U/L ALT 56 H (10-49) U/L Total Protein 4.8 L (6.2-8.2) g/dL Albumin 2.6 L (3.8-4.9) g/dL Albumin/Globulin Ratio 1.18 L (1.60-3.17) Ratio
--- NOTE | 2023-04-20 20:12 | P.DS ---
Providers Date of admission: 04/18/23 10:01 Attending physician: Mnih Saldaña Consults: 04/17/23 05:22 Consult Physician Routine Consulting Provider: Peter Patten Consult Reason/Comments: intractable abd pain, enteritis, obstruction? Do you want consulting provider notified?: Yes Primary care physician: Minh Saldaña Hospital Course: The patient was readmitted for recurrent Crohn's colitis. He is opiate dependence history hypertension and significant more tired arthritis with gout. The patient was stabilized for blood pressure was very nominal during this hospitalization. Was tolerating diet without issue on discharge. We will place on moderate prednisone for the next 7-10 days. Follow-up with me in about a week. Patient Condition at Discharge: Stable Plan - Discharge Summary Discharge Rx Participant: No New Discharge Prescriptions: New predniSONE [Deltasone] 50 mg PO DIRECTED #10 tab Continue Orphenadrine Citrate [Orphenadrine Citrate ER] 100 mg PO BID Febuxostat [Uloric] 80 mg PO DAILY amLODIPine [Norvasc] 10 mg PO DAILY Omeprazole [PriLOSEC] 40 mg PO AC-BRKFST #90 cap Diphenox-Atrop 2.5-0.025 mg [Lomotil] 2 tab PO ACHS Tamsulosin [Flomax] 0.4 mg PO DAILY #30 cap Adalimumab [Humira(Cf) Pen] 40 mg SQ Q14D Buprenorphine HCl/Naloxone HCl [Suboxone 2 mg-0.5 mg Sl Film] 2 film SL DAILY Discharge Medication List Orphenadrine Citrate [Orphenadrine Citrate ER] 100 mg PO BID 12/08/17 [History] Febuxostat [Uloric] 80 mg PO DAILY 05/05/18 [History] amLODIPine [Norvasc] 10 mg PO DAILY 10/18/20 [History] Adalimumab [Humira(Cf) Pen] 40 mg SQ Q14D 08/16/22 [History] Buprenorphine HCl/Naloxone HCl [Suboxone 2 mg-0.5 mg Sl Film] 2 film SL DAILY 08/16/22 [History] Omeprazole [PriLOSEC] 40 mg PO AC-BRKFST #90 cap 08/19/22 [Rx] Diphenox-Atrop 2.5-0.025 mg [Lomotil] 2 tab PO ACHS 12/24/22 [History] Tamsulosin [Flomax] 0.4 mg PO DAILY #30 cap 12/26/22 [Rx] predniSONE [Deltasone] 50 mg PO DIRECTED #10 tab 04/20/23 [Rx] Follow up Appointment(s)/Referral(s): Minh Saldaña MD [Primary Care Provider] - 1-2 days Discharge Disposition: HOME SELF-CARE
== END 2023-04-20 14:55 | disposition home or self-care (01) | DRG 386 ==
LOC: EC 23:55 → 6NMEDSUR 04-17 05:23 → OBSVTOIN 04-18 10:01
PROVIDERS: ADMIT Family Medicine; ATTEND Family Medicine
DX: K50.80 Crohn's disease of both small and large intestine without complications (principal); F11.20 Opioid dependence, uncomplicated; M06.9 Rheumatoid arthritis, unspecified; I48.91 Unspecified atrial fibrillation; I10 Essential (primary) hypertension; G62.9 Polyneuropathy, unspecified; D53.9 Nutritional anemia, unspecified; M10.9 Gout, unspecified; K21.9 Gastro-esophageal reflux disease without esophagitis; I44.0 Atrioventricular block, first degree; I44.7 Left bundle-branch block, unspecified; K31.89 Other diseases of stomach and duodenum; M19.90 Unspecified osteoarthritis, unspecified site; Z94.89 Other transplanted organ and tissue status; Z79.899 Other long term (current) drug therapy; Z91.041 Radiographic dye allergy status; Z87.11 Personal history of peptic ulcer disease; Z86.19 Personal history of other infectious and parasitic diseases; Z90.3 Acquired absence of stomach [part of]; Z28.310 Unvaccinated for COVID-19; Z86.79 Personal history of other diseases of the circulatory system
CPT/HCPCS: 36415; 74019; 74176; 80048; 80053; 81003; 82150; 83605; 83690; 85025; 85027; 85610; 85730; 93005; 96361; 96374; 96375; 96376; 99285

== ENCOUNTER 2023-05-01 00:31 | Inpatient (IN) | payer BC, MEDICARE ==
[2023-05-01] MEDS ORDERED: ONDANSETRON 4 MG/2 ML VIAL IVP STA (00:59)
[2023-05-01] MEDS ORDERED: PANTOPRAZOLE 40 MG/10 ML VIAL IVP STA (00:59)
[2023-05-01] MEDS ORDERED: SODIUM CHLORIDE 0.9% 1,000 ML IV STA ×3 (00:59→05:11)
[2023-05-01] MEDS ORDERED: HYDROmorphone 1 MG/ML 1 ML SYRINGE IVP STA ×2 (01:00→05:58)
[2023-05-01 01:59] LABS: Anisocytosis Slight; HCT 30.7 % (39.0-53.0); HGB 9.4 gm/dL (13.0-17.5); Hypochromasia Marked; MCH 31.1 pg (25.0-35.0); MCHC 30.6 g/dL (31.0-37.0); MCV 101.6 fL (80.0-100.0); Macrocytosis Slight; Mean Platelet Volume 8.4; Platelet Count 292 k/uL (150-450); RBC 3.02 m/uL (4.30-5.90); RDW 16.3 % (11.5-15.5); WBC 32.4 k/uL (3.8-10.6)
[2023-05-01 02:13] LABS: ALT 44 U/L (4-49); African American GFR (CKD) 54 (>60 ml/min/1.73 sqM); Amylase 115 U/L (30-110); Anion Gap 13 mmol/L; Blood Urea Nitrogen 38 mg/dL (9-20); Calcium 8.3 mg/dL (8.4-10.2); Carbon Dioxide 16 mmol/L (22-30); Chloride 109 mmol/L (98-107); Glucose 135 mg/dL (74-99); Lipase 21 U/L (23-300); Non-African American GFR(CKD) 46 (>60 ml/min/1.73 sqM); Sodium 138 mmol/L (137-145); Total Bilirubin 0.8 mg/dL (0.2-1.3)
[2023-05-01 02:14] LABS: AST 53 U/L (17-59); Albumin 3.3 g/dL (3.5-5.0); Alkaline Phosphatase 75 U/L (38-126); Potassium 4.8 mmol/L (3.5-5.1); Total Protein 6.7 g/dL (6.3-8.2)
[2023-05-01] MEDS ORDERED: METOCLOPRAMIDE 5 MG/ML 2 ML VIAL IVP STA (02:18)
[2023-05-01] MEDS ORDERED: HYDROmorphone 0.5 MG/0.5 ML SYRINGE IVP STA (02:18)
[2023-05-01 02:28] LABS: INR 0.9 (<1.2); Partial Thromboplastin Time 21.4 sec (22.0-30.0); Prothrombin Time 10.4 sec (10.0-12.5)
[2023-05-01] MEDS ORDERED: VANCOMYCIN IV PER PHARMACY 1 EACH MISC MISCELLANE PRN (02:53)
[2023-05-01] MEDS ORDERED: PIPERACILLIN-TAZOBACTAM 3.375 GM in SODIUM CHLORIDE 0.9% 100 ML IVPB STA (02:55)
[2023-05-01] MEDS ORDERED: VANCOMYCIN 1,250 MG in SODIUM CHLORIDE 0.9% 250 ML IVPB STA (03:00)
--- NOTE | 2023-05-01 03:30 | XR ---
EXAMINATION TYPE: XR chest 1V portable DATE OF EXAM: 05/01/2023 COMPARISON: Chest x-ray December 01, 2022 HISTORY: Abdominal pain for 3 days with nausea and vomiting TECHNIQUE: Single frontal view of the chest is obtained. FINDINGS: Diminished inspiration. There is no focal air space opacity, pleural effusion, or pneumotho rax seen. Cardiomegaly is now seen. Surgical clips epigastric region redemonstrated. Dextroconvex sco liosis noted on current study. IMPRESSION: Diminished inspiration with new cardiomegaly.
--- NOTE | 2023-05-01 03:37 | CT ---
EXAMINATION TYPE: CT abdomen pelvis wo con DATE OF EXAM: 05/01/2023 HISTORY: patient reports stabbing abdominal pain that radiates to the back x3 days. +N/V. abdomen is distended. patient still passing gas and having BM's. H/O, AFIB, GERD, HTN, RA, SVT chron' s, IBS, ch ronic diarrhea, ulcers, renal stones, bowel resection, cholecystectomy, hernia repair, partial gastre ctomy, CT DLP: 432.7 mGycm. Automated Exposure Control for Dose Reduction was Utilized. TECHNIQUE: CT scan of the abdomen and pelvis is performed without oral or IV contrast. COMPARISON: Prior CT April 17, 2023 FINDINGS: Within the limitations of a non-contrast study, the following observations are made. LUNG BASES: Posterior left basilar opacity consistent with atelectasis and/or consolidation is noted. Coronary artery calcification is redemonstrated. LIVER/GB: Cholecystectomy clips are redemonstrated. PANCREAS: No significant abnormality is seen. SPLEEN: No significant abnormality is seen. ADRENALS: No significant abnormality is seen. KIDNEYS: Multiple small bilateral nonobstructing renal calculi redemonstrated. No left-sided hydronep hrosis. Simple thin-walled cyst right kidney redemonstrated. There is a 10 mm calculus in the proxima l right ureter coronal image 65 causing mild right-sided hydronephrosis. No intraluminal calculus and mildly distended bladder. BOWEL: Mild to moderate diffuse colonic fecal prominence. Debris-filled stomach redemonstrated. Surgi louie change to bowel loop in the posterior right abdomen redemonstrated. GENITAL ORGANS: No gross abnormality seen. LYMPH NODES: No greater than 1cm abdominal or pelvic lymph nodes are appreciated. OSSEOUS STRUCTURES: No significant abnormality is seen. OTHER: Mild/moderate calcified plaque of the aorta extends into branch vessels. IMPRESSION: Bilateral nonobstructing renal calculi are redemonstrated. There is 10 mm calculus in the proximal right ureter causing mild right-sided hydronephrosis on current study.
[2023-05-01 04:02] LABS: Appearance,Urine Clear (Clear); Bacteria,Urine Many /hpf; Bilirubin,Urine Negative (Negative); Blood,Urine Moderate (Negative); Color,Urine Colorless; Glucose,Urine (UA) Negative (Negative); Hyaline Casts,Urine 1 /lpf (0-2); Ketones,Urine Negative (Negative); Leukocyte Esterase,Urine Moderate (Negative); Nitrite,Urine Positive (Negative); PH, Urine 5.5 (5.0-8.0); Protein,Urine Trace (Negative); RBC,Urine 79 /hpf (0-5); Specific Gravity,Urine 1.011 (1.001-1.035); Urobilinogen,Urine <2.0 mg/dL (<2.0); WBC,Urine 62 /hpf (0-5)
[2023-05-01 04:18] LABS: Band Neutrophils % 4 %; Lymphocytes # (M) 1.62 k/uL (1.0-4.8); Monocytes # (M) 0.65 k/uL (0-1.0); Neutrophils % (M) 91 %; Nucleated Red Blood Cells 0 /100 WBC (0-0); Total Cells Counted 200
[2023-05-01] MEDS ORDERED: NALOXONE 0.4 MG/ML 1 ML VIAL IV PRN (04:39)
[2023-05-01] MEDS ORDERED: ONDANSETRON 4 MG/2 ML VIAL IVP PRN (04:39)
--- NOTE | 2023-05-01 05:04 | ED ---
General Adult HPI - General Chief complaint: Abdominal Pain Stated complaint: abdom pain Time Seen by Provider: 05/01/23 00:40 Source: patient, EMS, RN notes reviewed, old records reviewed Mode of arrival: EMS Limitations: no limitations - History of Present Illness Initial comments: Patient is a 73-year-old male who presents emergency Department complaining of abdominal pain. Has a history of chronic abdominal pain, atrial fibrillation, Crohn's disease who recently completed a course of steroids. States he was feeling improved when he began having worsening abdominal pain over the last 3 days. Seems to radiate around the right flank. Still passing gas and having bowel movements. Has nausea and vomiting with it. States this seems different from prior episodes of his Crohn's. Is concerned it may be a kidney stone. Presents for further evaluation at this time. Vital signs are within acceptable limits. - Related Data Home Medications Medication Instructions Recorded Confirmed Orphenadrine Citrate [Orphenadrine 100 mg PO BID 12/08/17 04/17/23 Citrate ER] Febuxostat [Uloric] 80 mg PO DAILY 05/05/18 04/17/23 amLODIPine [Norvasc] 10 mg PO DAILY 10/18/20 04/17/23 Adalimumab [Humira(Cf) Pen] 40 mg SQ Q14D 08/16/22 04/17/23 Buprenorphine HCl/Naloxone HCl 2 film SL DAILY 08/16/22 04/17/23 [Suboxone 2 mg-0.5 mg Sl Film] Diphenox-Atrop 2.5-0.025 mg 2 tab PO ACHS 12/24/22 04/17/23 [Lomotil] Previous Rx's Medication Instructions Recorded Omeprazole [PriLOSEC] 40 mg PO AC-BRKFST #90 cap 08/19/22 Tamsulosin [Flomax] 0.4 mg PO DAILY #30 cap 12/26/22 predniSONE [Deltasone] 50 mg PO DIRECTED #10 tab 04/20/23 Allergies Allergy/AdvReac Type Severity Reaction Status Date / Time Iodinated Contrast Media Allergy Anaphylaxis Verified 05/01/23 00:40 [Iodinated Contrast Media - IV Dye] Review of Systems ROS Statement: Those systems with pertinent positive or pertinent negative responses have been documented in the HPI. Review of Systems: CONST: Denies fever EYES: Denies blurry vision ENT: Denies nasal congestion C/V: Denies Chest pain RESP: Denies shortness of breath GI: Endorses abdominal pain : Denies dysuria SKIN: Denies rash. MSK: Denies joint pain. NEURO: Denies headache ROS Other: All systems not noted in ROS Statement are negative. Past Medical History Past Medical History: Atrial Fibrillation, GERD/Reflux, Hypertension, Rheumatoid Arthritis (RA), Skin Disorder, Supraventricular Tachycardia (SVT) Additional Past Medical History / Comment(s): hx CROHN'S (takes tresa), IBS, chronic diarrhea, migraines-, hx ulcers, anemia, gout, kidney stones, psoriasis, bilateral tinnitis., pinched sciatic nerve, C-Diff 2017, neuropathy History of Any Multi-Drug Resistant Organisms: C-DIFF Date of last positivie culture/infection: stool MDRO Source:: 2017 Past Surgical History: Bowel Resection, Cardiac Ablation, Cholecystectomy, Heart Catheterization, Hernia Repair, Orthopedic Surgery, Tonsillectomy Additional Past Surgical History / Comment(s): 1/3 of stomach removed (partial gastrectomy), ulcers, bowel resections, fecal transplant 2017, bilateral knee arthroscopic surgery, EGD/colonoscopies, R inguinal hernia repair, bilat cataract removal, Past Anesthesia/Blood Transfusion Reactions: Blood Transfusion Reaction, Motion Sickness Additional Past Anesthesia/Blood Transfusion Reaction / Comment(s): BLOOD TRANSFUSION- BROKE OUT IN HIVES age 21 Past Psychological History: Anxiety Smoking Status: Never smoker Past Alcohol Use History: None Reported Past Drug Use History: None Reported - Past Family History Mother Family Medical History: Pulmonary Embolus Additional Family Medical History / Comment(s): AGE 73-ID, STROKE DURING CARATID PROCEDURE General Exam - General Exam Comments Initial Comments: General: Appears in moderate distress. HEAD: Normal with no signs of head trauma. EYES: PERRLA, EOMI, conjunctiva normal, no discharge. ENT: Hearing grossly intact, normal oropharynx. RESPIRATORY: Clear breath sounds bilaterally. No wheezes, rales, or rhonchi. C/V: Regular rate and rhythm. S1 and S2 auscultated, no edema, peripheral pulses 2+ and intact throughout ABD: Abdomen is somewhat distended. Diffuse tenderness. No guarding. No rebound tenderness. No peritoneal signs. EXT: Normal range of motion, no obvious deformity SKIN: No rashes or lesions observed on exposed skin. NEURO: Alert and oriented 4. Limitations: no limitations Course Vital Signs 05/01/23 05/01/23 00:33 06:03 Temperature 97.5 F L Pulse Rate 77 87 Respiratory 18 Rate Blood Pressure 135/103 143/95 O2 Sat by Pulse 98 96 Oximetry Medical Decision Making - Medical Decision Making Was pt. sent in by a medical professional or institution (HOME Lou, FIRE EQUIPMENT OPERATOR, urgent care, hospital, or fci...) When possible be specific @ -No Did you speak to anyone other than the patient for history (EMS, parent, family, police, friend...)? What history was obtained from this source @ -No Did you review nursing and triage notes (agree or disagree)? Why? @ -I reviewed and agree with nursing and triage notes Were old charts reviewed (outside hosp., previous admission, EMS record, old EKG, old radiological studies, urgent care reports/EKG's, fci records)? Report findings @ -Old charts reviewed. Differential Diagnosis (chest pain, altered mental status, abdominal pain women, abdominal pain men, vaginal bleeding, weakness, fever, dyspnea, syncope, headache, dizziness, GI bleed, back pain, seizure, CVA, palpatations, mental health, musculoskeletal)? @ -Differential Abdominal Pain Men: Appendicitis, cholecystitis, diverticulosis, ischemic bowel, pancreatitis, hepatitis, UTI, gastroenteritis, AAA, incarcerated hernia, bowel obstruction, constipation, inflammatory bowel, hepatitis, peptic ulcer disease, splenic infarction, perforated viscus, testicular torsion, this is not meant to be an all-inclusive list EKG interpreted by me (3pts min.). @ -As above X-rays interpreted by me (1pt min.). @ -Chest x-ray reveals no obvious acute process. No evidence of free air under the diaphragm. CT interpreted by me (1pt min.). @ -CT reveals chronic distention of the bowels with a 10 mm right-sided proximal right ureteral calculus causing mild right-sided hydronephrosis. U/S interpreted by me (1pt. min.). @ -None done What testing was considered but not performed or refused? (CT, X-rays, U/S, labs)? Why? @ -None What meds were considered but not given or refused? Why? @ -None Did you discuss the management of the patient with other professionals (professionals i.e. HOME Lou, FIRE EQUIPMENT OPERATOR, lab, RT, psych nurse, rn social services, prepress specialist, teacher, mechanical engineering officer, family caseworker)? Give summary @ -I spoke with urology on-call, Dr. Clement who requested the patient be made nothing by mouth and he will likely place a stent later today. Patient will be admitted under medicine, ALIREZA Oneill of [facility] accepted the patient. Was smoking cessation discussed for >3mins.? @ -No Was critical care preformed (if so, how long)? @ -No Were there social determinants of health that impacted care today? How? (Homelessness, low income, unemployed, alcoholism, drug addiction, transportation, low edu. Level, literacy, decrease access to med. care, prison, rehab)? @ -No Was there de-escalation of care discussed even if they declined (Discuss DNR or withdrawal of care, Hospice)? DNR status @ -No What co-morbidities impacted this encounter? (DM, HTN, Smoking, COPD, CAD, Cancer, CVA, ARF, Chemo, Hep., AIDS, mental health diagnosis, sleep apnea, morbid obesity)? @ -None Was patient admitted / discharged? Hospital course, mention meds given and route, prescriptions, significant lab abnormalities, going to OR and other pertinent info. @ -Based on the patient's presentation and physical exam, presents with abdominal pain. Somewhat chronic. Recently completed steroids. We will obtain abdominal labs, screening EKG, as well as CT of the abdomen and pelvis. Patient agreement this plan. Vital signs are within acceptable limits other than A. fib with RVR. Laboratory studies remarkable for leukocytosis of 32. Lactic acidosis of 2.4. Mild REGGIE with acute creatinine of 1.48 above baseline. Urinalysis finally did return positive for spine is concerning for infection. Imaging remarkable for right- sided ureterolithiasis that appears to be infected based on labs. Imaging and urine studies to while to come back and therefore patient was apparently started and treated for sepsis with vancomycin and Zosyn. Leukocytosis likely a mixed of both the recent steroid administration, hemoconcentration, as well as infected stone. Patient was in agreement this plan. Symptoms improved with IV Dilaudid as well as Zofran. I discussed with him his results. He will be ad mitted for urology evaluation. He is made nothing by mouth. I spoke with urology on-call, Dr. Clement who requested the patient be made nothing by mouth and he will likely place a stent later today. Patient will be admitted under medicine, ALIREZA Oneill of [facility] accepted the patient. Patient's EKG does show tachycardia, with suspected A. fib which is a history of. When pain is controlled, heart rate does seem improved however when pain is worse he does have increased heart rate. We'll continue to closely monitor. Undiagnosed new problem with uncertain prognosis? @ -No Drug Therapy requiring intensive monitoring for toxicity (Heparin, Nitro, Insulin, Cardizem)? @ -No Were any procedures done? @ -No Diagnosis/symptom? @ -Septic right-sided ureterolithiasis, nausea and vomiting with dehydration Acute, or Chronic, or Acute on Chronic? @ -Acute Uncomplicated (without systemic symptoms) or Complicated (systemic symptoms)? @ -Complicated Side effects of treatment? @ -No Exacerbation, Progression, or Severe Exacerbation? @ -No Poses a threat to life or bodily function? How? (Chest pain, USA, ID, pneumonia, PE, COPD, DKA, ARF, appy, cholecystitis, CVA, Diverticulitis, Homicidal, Suicidal, threat to staff... and all critical care pts) @ -Yes - Lab Data Result diagrams: 05/01/23 01:34 05/01/23 01:34 Lab Results 05/01/23 05/01/23 05/01/23 Range/Units 01:34 01:34 01:34 WBC 32.4 H (3.8-10.6) k/uL RBC 3.02 L (4.30-5.90) m/uL Hgb 9.4 L (13.0-17.5) gm/dL Hct 30.7 L (39.0-53.0) % MCV 101.6 H (80.0-100.0) fL MCH 31.1 (25.0-35.0) pg MCHC 30.6 L (31.0-37.0) g/dL RDW 16.3 H (11.5-15.5) % Plt Count 292 (150-450) k/uL MPV 8.4 Neutrophils % Not Reportable Neutrophils % (Manual) 91 % Band Neuts % (Manual) 4 % Lymphocytes % Not Reportable Lymphocytes % (Manual) 5 % Monocytes % Not Reportable Monocytes % (Manual) 2 % Eosinophils % Not Reportable Basophils % Not Reportable Neutrophils # Not Reportable Neutrophils # (Manual) 30.70 H (1.3-7.7) k/uL Lymphocytes # Not Reportable Lymphocytes # (Manual) 1.62 (1.0-4.8) k/uL Monocytes # Not Reportable Monocytes # (Manual) 0.65 (0-1.0) k/uL Eosinophils # Not Reportable Basophils # Not Reportable Nucleated RBCs 0 (0-0) /100 WBC Manual Slide Review Performed Hypochromasia Marked Anisocytosis Slight Macrocytosis Slight PT 10.4 (10.0-12.5) sec INR 0.9 (<1.2) APTT 21.4 L (22.0-30.0) sec Sodium 138 (137-145) mmol/L Potassium 4.8 (3.5-5.1) mmol/L Chloride 109 H (98-107) mmol/L Carbon Dioxide 16 L (22-30) mmol/L Anion Gap 13 mmol/L BUN 38 H (9-20) mg/dL Creatinine 1.48 H (0.66-1.25) mg/dL Est GFR (CKD-EPI)AfAm 54 (>60 ml/min/1.73 sqM) Est GFR (CKD-EPI)NonAf 46 (>60 ml/min/1.73 sqM) Glucose 135 H (74-99) mg/dL Lactic Ac Sepsis Rflx Plasma Lactic Acid Kal (0.7-2.0) mmol/L Calcium 8.3 L (8.4-10.2) mg/dL Total Bilirubin 0.8 (0.2-1.3) mg/dL AST 53 (17-59) U/L ALT 44 (4-49) U/L Alkaline Phosphatase 75 (38-126) U/L Total Protein 6.7 (6.3-8.2) g/dL Albumin 3.3 L (3.5-5.0) g/dL Amylase 115 H (30-110) U/L Lipase 21 L (23-300) U/L Urine Color Urine Appearance (Clear) Urine pH (5.0-8.0) Ur Specific Stedman (1.001-1.035) Urine Protein (Negative) Urine Glucose (UA) (Negative) Urine Ketones (Negative) Urine Blood (Negative) Urine Nitrite (Negative) Urine Bilirubin (Negative) Urine Urobilinogen (<2.0) mg/dL Ur Leukocyte Esterase (Negative) Urine RBC (0-5) /hpf Urine WBC (0-5) /hpf Urine Bacteria (None) /hpf Hyaline Casts (0-2) /lpf 05/01/23 05/01/23 05/01/23 Range/Units 01:34 02:13 03:43 WBC (3.8-10.6) k/uL RBC (4.30-5.90) m/uL Hgb (13.0-17.5) gm/dL Hct (39.0-53.0) % MCV (80.0-100.0) fL MCH (25.0-35.0) pg MCHC (31.0-37.0) g/dL RDW (11.5-15.5) % Plt Count (150-450) k/uL MPV Neutrophils % Neutrophils % (Manual) % Band Neuts % (Manual) % Lymphocytes % Lymphocytes % (Manual) % Monocytes % Monocytes % (Manual) % Eosinophils % Basophils % Neutrophils # Neutrophils # (Manual) (1.3-7.7) k/uL Lymphocytes # Lymphocytes # (Manual) (1.0-4.8) k/uL Monocytes # Monocytes # (Manual) (0-1.0) k/uL Eosinophils # Basophils # Nucleated RBCs (0-0) /100 WBC Manual Slide Review Hypochromasia Anisocytosis Macrocytosis PT (10.0-12.5) sec INR (<1.2) APTT (22.0-30.0) sec Sodium (137-145) mmol/L Potassium (3.5-5.1) mmol/L Chloride (98-107) mmol/L Carbon Dioxide (22-30) mmol/L Anion Gap mmol/L BUN (9-20) mg/dL Creatinine (0.66-1.25) mg/dL Est GFR (CKD-EPI)AfAm (>60 ml/min/1.73 sqM) Est GFR (CKD-EPI)NonAf (>60 ml/min/1.73 sqM) Glucose (74-99) mg/dL Lactic Ac Sepsis Rflx Y Plasma Lactic Acid Kal 2.4 H* (0.7-2.0) mmol/L Calcium (8.4-10.2) mg/dL Total Bilirubin (0.2-1.3) mg/dL AST (17-59) U/L ALT (4-49) U/L Alkaline Phosphatase (38-126) U/L Total Protein (6.3-8.2) g/dL Albumin (3.5-5.0) g/dL Amylase (30-110) U/L Lipase (23-300) U/L Urine Color Colorless Urine Appearance Clear (Clear) Urine pH 5.5 (5.0-8.0) Ur Specific Stedman 1.011 (1.001-1.035) Urine Protein Trace H (Negative) Urine Glucose (UA) Negative (Negative) Urine Ketones Negative (Negative) Urine Blood Moderate H (Negative) Urine Nitrite Positive (Negative) Urine Bilirubin Negative (Negative) Urine Urobilinogen <2.0 (<2.0) mg/dL Ur Leukocyte Esterase Moderate H (Negative) Urine RBC 79 H (0-5) /hpf Urine WBC 62 H (0-5) /hpf Urine Bacteria Many H (None) /hpf Hyaline Casts 1 (0-2) /lpf 05/01/23 Range/Units 04:27 WBC (3.8-10.6) k/uL RBC (4.30-5.90) m/uL Hgb (13.0-17.5) gm/dL Hct (39.0-53.0) % MCV (80.0-100.0) fL MCH (25.0-35.0) pg MCHC (31.0-37.0) g/dL RDW (11.5-15.5) % Plt Count (150-450) k/uL MPV Neutrophils % Neutrophils % (Manual) % Band Neuts % (Manual) % Lymphocytes % Lymphocytes % (Manual) % Monocytes % Monocytes % (Manual) % Eosinophils % Basophils % Neutrophils # Neutrophils # (Manual) (1.3-7.7) k/uL Lymphocytes # Lymphocytes # (Manual) (1.0-4.8) k/uL Monocytes # Monocytes # (Manual) (0-1.0) k/uL Eosinophils # Basophils # Nucleated RBCs (0-0) /100 WBC Manual Slide Review Hypochromasia Anisocytosis Macrocytosis PT (10.0-12.5) sec INR (<1.2) APTT (22.0-30.0) sec Sodium (137-145) mmol/L Potassium (3.5-5.1) mmol/L Chloride (98-107) mmol/L Carbon Dioxide (22-30) mmol/L Anion Gap mmol/L BUN (9-20) mg/dL Creatinine (0.66-1.25) mg/dL Est GFR (CKD-EPI)AfAm (>60 ml/min/1.73 sqM) Est GFR (CKD-EPI)NonAf (>60 ml/min/1.73 sqM) Glucose (74-99) mg/dL Lactic Ac Sepsis Rflx Plasma Lactic Acid Kal 3.0 H* (0.7-2.0) mmol/L Calcium (8.4-10.2) mg/dL Total Bilirubin (0.2-1.3) mg/dL AST (17-59) U/L ALT (4-49) U/L Alkaline Phosphatase (38-126) U/L Total Protein (6.3-8.2) g/dL Albumin (3.5-5.0) g/dL Amylase (30-110) U/L Lipase (23-300) U/L Urine Color Urine Appearance (Clear) Urine pH (5.0-8.0) Ur Specific Stedman (1.001-1.035) Urine Protein (Negative) Urine Glucose (UA) (Negative) Urine Ketones (Negative) Urine Blood (Negative) Urine Nitrite (Negative) Urine Bilirubin (Negative) Urine Urobilinogen (<2.0) mg/dL Ur Leukocyte Esterase (Negative) Urine RBC (0-5) /hpf Urine WBC (0-5) /hpf Urine Bacteria (None) /hpf Hyaline Casts (0-2) /lpf - EKG Data -: EKG Interpreted by Me EKG Comments: 12-lead Electrocardiogram Interpretation Note EKG was reviewed and interpreted by myself. 12-lead ECG performed at 0514 is interpreted by me as revealing atrial fibrillation at a rate of 128 beats per minute. Left axis deviation. Right bundle branch block. NE interval is 196 ms, QRS duration is 127 ms, QTc is 400 ms.. There were no ST or T wave abnormalities to suggest myocardial ischemia or injury. R wave progression across the precordium was satisfactory. By my interpretation this EKG is non- diagnostic for acute ischemia. Disposition Clinical Impression: Ureterolithiasis, Sepsis, Nausea and vomiting, Dehydration Disposition: ADMITTED IP TO THIS HOSP Condition: Stable Time of Disposition: 04:39
[2023-05-01] MEDS: HYDROmorphone 0.5 MG/0.5 ML SYRINGE IVP PRN ×6 (05:27→22:01)
[2023-05-01] MEDS: amLODIPine 10 MG TAB PO SCH (05:37)
[2023-05-01] MEDS ORDERED: KETOROLAC 15 MG/ML 1 ML VIAL IVP STA (05:58)
--- NOTE | 2023-05-01 09:48 | P.GSCN ---
History of Present Illness Consult date: 05/01/23 History of present illness: 73 yo male with a history of crohns as well as kidney stones presented with a 3 day history of abdominal pain. he was evaluated in the er and found to have a 7 mm right proximal ureteral stone with obstruction He also has infected urine, and elevated lactic acid and wbc at 32k. He has been on steroids which could contribute somewhat to the wbc elevation. He has been treated in the past by Dr Locke with stents and ureteroscopy/laser lithotripsy. He still is in pain. Review of Systems All systems: negative - Constitutional Denies fever, Denies weight loss - EENT Eyes: denies blurred vision Ears, nose, mouth and throat: Denies dysphagia - Cardiovascular Denies chest pain, Denies shortness of breath - Respiratory Denies cough, Denies 7 - Gastrointestinal Reports as per HPI - Genitourinary Denies dysuria, Denies hematuria - Integumentary Denies rash, Denies unusual bruising - Neurological Denies headaches, Denies syncope - Hematologic/Lymphatic Denies easy bleeding, Denies easy bruising Past Medical History Past Medical History: Atrial Fibrillation, GERD/Reflux, Hypertension, Rheumatoid Arthritis (RA), Skin Disorder, Supraventricular Tachycardia (SVT) Additional Past Medical History / Comment(s): hx CROHN'S (takes tresa), IBS, chronic diarrhea, migraines-, hx ulcers, anemia, gout, kidney stones, psoriasis, bilateral tinnitis., pinched sciatic nerve, C-Diff 2017, neuropathy History of Any Multi-Drug Resistant Organisms: C-DIFF Year Discovered:: stool MDRO Source:: 2017 Past Surgical History: Bowel Resection, Cardiac Ablation, Cholecystectomy, Heart Catheterization, Hernia Repair, Orthopedic Surgery, Tonsillectomy Additional Past Surgical History / Comment(s): 1/3 of stomach removed (partial gastrectomy), ulcers, bowel resections, fecal transplant 2017, bilateral knee arthroscopic surgery, EGD/colonoscopies, R inguinal hernia repair, bilat cataract removal, Past Anesthesia/Blood Transfusion Reactions: Blood Transfusion Reaction, Motion Sickness Additional Past Anesthesia/Blood Transfusion Reaction / Comm: BLOOD TRANSFUSION- BROKE OUT IN HIVES age 21 Past Psychological History: Anxiety Smoking Status: Never smoker Past Alcohol Use History: None Reported Past Drug Use History: None Reported - Past Family History Mother Family Medical History: Pulmonary Embolus Additional Family Medical History / Comment(s): AGE 73-[place], STROKE DURING CARATID PROCEDURE Medications and Allergies Home Medications Medication Instructions Recorded Confirmed Type Orphenadrine Citrate [Orphenadrine 100 mg PO BID 12/08/17 04/17/23 History Citrate ER] Febuxostat [Uloric] 80 mg PO DAILY 05/05/18 04/17/23 History amLODIPine [Norvasc] 10 mg PO DAILY 10/18/20 04/17/23 History Adalimumab [Humira(Cf) Pen] 40 mg SQ Q14D 08/16/22 04/17/23 History Buprenorphine HCl/Naloxone HCl 2 film SL DAILY 08/16/22 04/17/23 History [Suboxone 2 mg-0.5 mg Sl Film] Omeprazole [PriLOSEC] 40 mg PO AC-BRKFST #90 cap 08/19/22 04/17/23 Rx Diphenox-Atrop 2.5-0.025 mg 2 tab PO ACHS 12/24/22 04/17/23 History [Lomotil] Tamsulosin [Flomax] 0.4 mg PO DAILY #30 cap 12/26/22 04/17/23 Rx predniSONE [Deltasone] 50 mg PO DIRECTED #10 tab 04/20/23 Rx Allergies Allergy/AdvReac Type Severity Reaction Status Date / Time Iodinated Contrast Media Allergy Anaphylaxis Verified 05/01/23 00:40 [Iodinated Contrast Media - IV Dye] Surgical - Exam Vital Signs Temp Pulse BP Pulse Ox 97.5 F L 77 135/103 98 05/01/23 00:33 05/01/23 00:33 05/01/23 00:33 05/01/23 00:33 - General well developed, well nourished, moderate distress - Eyes normal ocular movement, no icteric - ENT no hearing loss, no congestion - Neck no masses, trachea midline - Respiratory normal respiratory effort, clear to auscultation - Abdomen Abdomen: soft, tender, no guarding, no rigid, no rebound - Integumentary no rash, no abnormal pigmentation - Neurologic no disoriented, no combative - Psychiatric oriented to time, oriented to person, oriented to place, speech is normal, memory intact Results - Labs 05/01/23 01:34 05/01/23 01:34 Abnormal Lab Results - Last 24 Hours (Table) 05/01/23 05/01/2305/01/24 Range/Units 01:34 01:34 01:34 WBC 32.4 H (3.8-10.6) k/uL RBC 3.02 L (4.30-5.90) m/uL Hgb 9.4 L (13.0-17.5) gm/dL Hct 30.7 L (39.0-53.0) % MCV 101.6 H (80.0-100.0) fL MCHC 30.6 L (31.0-37.0) g/dL RDW 16.3 H (11.5-15.5) % Neutrophils # (Manual) 30.70 H (1.3-7.7) k/uL APTT 21.4 L (22.0-30.0) sec Chloride 109 H (98-107) mmol/L Carbon Dioxide 16 L (22-30) mmol/L BUN 38 H (9-20) mg/dL Creatinine 1.48 H (0.66-1.25) mg/dL Glucose 135 H (74-99) mg/dL Plasma Lactic Acid Kal (0.7-2.0) mmol/L Calcium 8.3 L (8.4-10.2) mg/dL Albumin 3.3 L (3.5-5.0) g/dL Amylase 115 H (30-110) U/L Lipase 21 L (23-300) U/L Urine Protein (Negative) Urine Blood (Negative) Ur Leukocyte Esterase (Negative) Urine RBC (0-5) /hpf Urine WBC (0-5) /hpf Urine Bacteria (None) /hpf 05/01/23 05/01/23 05/01/23 Range/Units 01:34 03:43 04:27 WBC (3.8-10.6) k/uL RBC (4.30-5.90) m/uL Hgb (13.0-17.5) gm/dL Hct (39.0-53.0) % MCV (80.0-100.0) fL MCHC (31.0-37.0) g/dL RDW (11.5-15.5) % Neutrophils # (Manual) (1.3-7.7) k/uL APTT (22.0-30.0) sec Chloride (98-107) mmol/L Carbon Dioxide (22-30) mmol/L BUN (9-20) mg/dL Creatinine (0.66-1.25) mg/dL Glucose (74-99) mg/dL Plasma Lactic Acid Kal 2.4 H* 3.0 H* (0.7-2.0) mmol/L Calcium (8.4-10.2) mg/dL Albumin (3.5-5.0) g/dL Amylase (30-110) U/L Lipase (23-300) U/L Urine Protein Trace H (Negative) Urine Blood Moderate H (Negative) Ur Leukocyte Esterase Moderate H (Negative) Urine RBC 79 H (0-5) /hpf Urine WBC 62 H (0-5) /hpf Urine Bacteria Many H (None) /hpf Diabetes panel 05/01/23 Range/Units 01:34 Sodium 138 (137-145) mmol/L Potassium 4.8 (3.5-5.1) mmol/L Chloride 109 H (98-107) mmol/L Carbon Dioxide 16 L (22-30) mmol/L BUN 38 H (9-20) mg/dL Creatinine 1.48 H (0.66-1.25) mg/dL Glucose 135 H (74-99) mg/dL Calcium 8.3 L (8.4-10.2) mg/dL AST 53 (17-59) U/L ALT 44 (4-49) U/L Alkaline Phosphatase 75 (38-126) U/L Total Protein 6.7 (6.3-8.2) g/dL Albumin 3.3 L (3.5-5.0) g/dL Calcium panel 05/01/23 Range/Units 01:34 Calcium 8.3 L (8.4-10.2) mg/dL Albumin 3.3 L (3.5-5.0) g/dL Pituitary panel 05/01/23 Range/Units 01:34 Sodium 138 (137-145) mmol/L Potassium 4.8 (3.5-5.1) mmol/L Chloride 109 H (98-107) mmol/L Carbon Dioxide 16 L (22-30) mmol/L BUN 38 H (9-20) mg/dL Creatinine 1.48 H (0.66-1.25) mg/dL Glucose 135 H (74-99) mg/dL Calcium 8.3 L (8.4-10.2) mg/dL Adrenal panel 05/01/23 Range/Units 01:34 Sodium 138 (137-145) mmol/L Potassium 4.8 (3.5-5.1) mmol/L Chloride 109 H (98-107) mmol/L Carbon Dioxide 16 L (22-30) mmol/L BUN 38 H (9-20) mg/dL Creatinine 1.48 H (0.66-1.25) mg/dL Glucose 135 H (74-99) mg/dL Calcium 8.3 L (8.4-10.2) mg/dL Total Bilirubin 0.8 (0.2-1.3) mg/dL AST 53 (17-59) U/L ALT 44 (4-49) U/L Alkaline Phosphatase 75 (38-126) U/L Total Protein 6.7 (6.3-8.2) g/dL Albumin 3.3 L (3.5-5.0) g/dL - Imaging CT scan - abdomen: report reviewed, image reviewed CT scan - pelvis: report reviewed, image reviewed Assessment and Plan Assessment: Impression: Right ureteral calculus with obstruction. Urinary tract infection with sepsis, right pyelonephrosis. Crohn's disease. Recommendations: The patient is admitted with IV antibiotics. He'll undergo urgent cystoscopy with stent placement on the right side today to relieve the obstruction and drain the infected urine. This is been discussed with the patient he understands.
[2023-05-01] MEDS ORDERED: SODIUM CHLORIDE 0.9% 1,000 ML IV ONE ×2 (10:10→15:47)
[2023-05-01] MEDS ORDERED: fentaNYL (PF) 50 MCG/ML 2 ML AMP ONE (10:11)
[2023-05-01] MEDS ORDERED: PROPOFOL 10 MG/ML 20 ML VIAL IV ONE (10:11)
--- NOTE | 2023-05-01 10:37 | P.OP ---
Date of Procedure: 05/01/23 Preoperative Diagnosis: Right ureteral calculus with obstruction, right pyelonephrosis, urinary tract infection with sepsis Postoperative Diagnosis: Same Procedure(s) Performed: Cystoscopy with placement of double-J catheter right 6 x 26 Anesthesia: NELLA Surgeon: Edd Clement Estimated Blood Loss (ml): 0 Pathology: none sent Condition: stable Disposition: PACU Indications for Procedure: Patient is 73. He has a history kidney stones. He presented with abdominal pain. He had a computed tomography scan that identified a 10 mm proximal ureteral stone that was obstructing. He has bilateral renal stones. His white count is elevated at 32,000. He has been on steroids however. His lactic acid level is elevated. His urine is infected. He comes for an emergent placement of stent to relieve the obstruction and drain the pyonephrosis on the right side Description of Procedure: Patient brought to the operating suite. Given a general anesthetic. Placed lithotomy position with a sterile prep and drape. Fluoroscopy identifies a probable stone in the proximal ureter on the right side. Cystoscopy Foroblique lens and 21-Lao sheath identifies a normal urethra. The prostate shows some obstruction. The bladder urine is markedly. The bladder wall shows some inflammation. Right ureteral orifice is edematous and somewhat inflamed. The left ureteral orifice is mounded but not is edematous. An 035 wires attempted to pass through the right ureteral orifice but meet resistance. Purulence drains out of the orifice after the initial manipulation. Upon review of the computed tomography scan there may be a stone at the right UVJ. After a couple of attempts the right ureteral orifice is intubated and the wires passed up into the kidney. Purulent urine is draining alongside the ureter. Over the wires and passed a 6 x 26 double-J cath that coils in the right renal pelvis and the bladder. The bladder is drained the patient is awakened and returned recovery room good condition Impression successful drainage of obstructed right system with infected urine. I believe he definitely had is a stone in the right distal ureter he may also of 1 in the right proximal ureter upon review of the CAT scan again. The stone and stent will be removed a later date once the sepsis has cleared.
--- NOTE | 2023-05-01 11:04 | FL ---
Fluoroscopy INDICATION: Pain FINDINGS: Fluoroscopy time: 6 seconds. Total dose area product (DAP) in uGy*m?, mGy*cm? (or similar): 0.4850 Images obtained: 2. IMPRESSION: 1. Documentation of fluoroscopy.
[2023-05-01] MEDS: TAMSULOSIN 0.4 MG CAP.ER.24H PO SCH (11:49)
[2023-05-01] MEDS: SODIUM CHLORIDE 0.9% 1,000 ML IV SCH ×2 (11:49→18:04)
[2023-05-01 13:45] LABS: Appearance,Urine Cloudy (Clear); Bilirubin,Urine Negative (Negative); Blood,Urine Large (Negative); Color,Urine Light Yellow; Glucose,Urine (UA) Negative (Negative); Ketones,Urine Negative (Negative); Leukocyte Esterase,Urine Large (Negative); Mucus,Urine Rare /hpf; Nitrite,Urine Negative (Negative); PH, Urine 5.5 (5.0-8.0); Protein,Urine Trace (Negative); RBC,Urine >182 /hpf (0-5); Specific Gravity,Urine 1.011 (1.001-1.035); Urobilinogen,Urine <2.0 mg/dL (<2.0); WBC,Urine 127 /hpf (0-5)
[2023-05-01] MEDS: PIPERACILLIN-TAZOBACTAM 3.375 GM in SODIUM CHLORIDE 0.9% 100 ML IVPB SCH ×2 (14:35→22:04)
--- NOTE | 2023-05-01 14:38 | P.HPIM ---
History of Present Illness H&P Date: 05/01/23 Chief Complaint: Abdominal pain * 73-year-old gentleman with past medical history significant for Crohn's disease, nephrolithiasis, hypertension, presents to the emergency department with complains of abdominal discomfort. Patient had been complaining of abdominal pain for the last 72 hours. Patient does have chronic abdominal discomfort secondary to history of Crohn disease however patient was noted to have worsening abdominal pain, pain radiated to her right flank this was associated with nausea and vomiting. Patient stated his pain was different from previous episodes of "flareup. He had already been on steroid for history of processes * Workup in ED included CT abdomen pelvis which showed right ureter stone proximal aspect 10 mm with mild right-sided hydronephrosis * Serum chemistry obtained in ER showed WBC of 32.4 hemoglobin 9.4 platelet count of 292 elevated neutrophil shift of 30 * Serum chemistry obtained showed sodium 138 potassium 4.8, and Axert 16 B UN 38 creatinine 1.4. Lactate of 2.4 * Urinalysis obtained showed large amount of WBC and many bacteria moderate blood large leukocyte esterase positive nitrite * Patient was given 2 L of fluid bolus and started on maintenance hydration normal saline * Patient was started on IV antibiotics including Zosyn and vancomycin, and blood cultures collected * Urology consulted secondary to complicated urinary tract infection with obstructive stone colic pyelonephritis and sepsis REVIEW OF SYSTEMS: Nausea, vomiting, abdominal pain, flank pain CONSTITUTIONAL: No fever, no malaise, no fatigue. HEENT: No recent visual problems or hearing problems. Denied any sore throat. CARDIOVASCULAR: No chest pain, orthopnea, PND, no palpitations, no syncope. PULMONARY: No shortness of breath, no cough, no hemoptysis. GASTROINTESTINAL: Nausea, vomiting, abdominal pain, flank pain NEUROLOGICAL: No headaches, no weakness, no numbness. HEMATOLOGICAL: Denies any bleeding or petechiae. GENITOURINARY: Denies any burning micturition, frequency, or urgency. MUSCULOSKELETAL/RHEUMATOLOGICAL: Denies any joint pain, swelling, or any muscle pain. ENDOCRINE: Denies any polyuria or polydipsia. PHYSICAL EXAMINATION: GENERAL: The patient is alert and oriented x3, ill appearance HEENT: Pupils are round and equally reacting to light. EOMI Normocephalic, atraumatic. No pharyngeal erythema. No thyromegaly. CARDIOVASCULAR: S1 and S2 present. No murmurs, rubs, or gallops. PULMONARY: Chest is clear to auscultation, no wheezing or crackles. ABDOMEN: Soft, right -sided flank tenderness MUSCULOSKELETAL: No joint swelling or deformity. EXTREMITIES: No cyanosis, clubbing, or pedal edema. NEUROLOGICAL: Gross neurological examination did not reveal any focal deficits. SKIN: No rashes. Past Medical History Past Medical History: Atrial Fibrillation, GERD/Reflux, Hypertension, Rheumatoid Arthritis (RA), Skin Disorder, Supraventricular Tachycardia (SVT) Additional Past Medical History / Comment(s): hx CROHN'S (takes tresa), IBS, chronic diarrhea, migraines-, hx ulcers, anemia, gout, kidney stones, psoria sis, bilateral tinnitis., pinched sciatic nerve, C-Diff 2017, neuropathy History of Any Multi-Drug Resistant Organisms: C-DIFF Date of last positivie culture/infection: stool MDRO Source:: 2017 Past Surgical History: Bowel Resection, Cardiac Ablation, Cholecystectomy, Heart Catheterization, Hernia Repair, Orthopedic Surgery, Tonsillectomy Additional Past Surgical History / Comment(s): 1/3 of stomach removed (partial gastrectomy), ulcers, bowel resections, fecal transplant 2017, bilateral knee arthroscopic surgery, EGD/colonoscopies, R inguinal hernia repair, bilat cat aract removal, Past Anesthesia/Blood Transfusion Reactions: Blood Transfusion Reaction, Motion Sickness Additional Past Anesthesia/Blood Transfusion Reaction / Comment(s): BLOOD TRANSFUSION- BROKE OUT IN HIVES age 21 Past Psychological History: Anxiety Smoking Status: Never smoker Past Alcohol Use History: None Reported Past Drug Use History: None Reported - Past Family History Mother Family Medical History: Pulmonary Embolus Additional Family Medical History / Comment(s): AGE 73-[place], STROKE DURING CARATID PROCEDURE Medications and Allergies Home Medications Medication Instructions Recorded Confirmed Type Orphenadrine Citrate [Orphenadrine 100 mg PO BID 12/08/17 05/01/23 History Citrate ER] Febuxostat [Uloric] 80 mg PO DAILY 05/05/18 05/01/23 History amLODIPine [Norvasc] 10 mg PO DAILY 10/18/20 05/01/23 History Adalimumab [Humira(Cf) Pen] 40 mg SQ Q14D 08/16/22 05/01/23 History Buprenorphine HCl/Naloxone HCl 2 film SL DAILY 08/16/22 05/01/23 History [Suboxone 2 mg-0.5 mg Sl Film] Omeprazole [PriLOSEC] 40 mg PO AC-BRKFST #90 cap 08/19/22 05/01/23 Rx Diphenox-Atrop 2.5-0.025 mg 2 tab PO ACHS 12/24/22 05/01/23 History [Lomotil] Tamsulosin [Flomax] 0.4 mg PO DAILY #30 cap 12/26/22 05/01/23 Rx predniSONE [Deltasone] 20 mg PO DAILY 05/01/23 05/01/23 History Allergies Allergy/AdvReac Type Severity Reaction Status Date / Time Iodinated Contrast Media Allergy Anaphylaxis Verified 05/01/23 00:40 [Iodinated Contrast Media - IV Dye] Physical Exam Vitals: Vital Signs Temp Pulse Resp BP Pulse Ox 05/01/23 09:20 92 20 132/69 99 05/01/23 07:41 98 F 104 H 18 109/64 96 05/01/23 06:03 87 18 143/95 96 05/01/23 04:00 85 20 198/106 96 05/01/23 02:00 80 20 151/106 96 05/01/23 00:33 97.5 F L 77 135/103 98 Intake and Output 04/30/23 05/01/23 05/01/23 22:59 06:59 14:59 Other: Weight 65.771 kg Results CBC & Chem 7: 05/01/23 01:34 05/01/23 01:34 Labs: Abnormal Lab Results - Last 24 Hours (Table) 05/01/23 05/01/23 05/01/23 Range/Units 01:34 01:34 01:34 WBC 32.4 H (3.8-10.6) k/uL RBC 3.02 L (4.30-5.90) m/uL Hgb 9.4 L (13.0-17.5) gm/dL Hct 30.7 L (39.0-53.0) % MCV 101.6 H (80.0-100.0) fL MCHC 30.6 L (31.0-37.0) g/dL RDW 16.3 H (11.5-15.5) % Neutrophils # (Manual) 30.70 H (1.3-7.7) k/uL APTT 21.4 L (22.0-30.0) sec Chloride 109 H (98-107) mmol/L Carbon Dioxide 16 L (22-30) mmol/L BUN 38 H (9-20) mg/dL Creatinine 1.48 H (0.66-1.25) mg/dL Glucose 135 H (74-99) mg/dL Plasma Lactic Acid Kal (0.7-2.0) mmol/L Calcium 8.3 L (8.4-10.2) mg/dL Albumin 3.3 L (3.5-5.0) g/dL Amylase 115 H (30-110) U/L Lipase 21 L (23-300) U/L Urine Protein (Negative) Urine Blood (Negative) Ur Leukocyte Esterase (Negative) Urine RBC (0-5) /hpf Urine WBC (0-5) /hpf Urine Bacteria (None) /hpf 05/01/23 05/01/23 05/01/23 Range/Units 01:34 03:43 04:27 WBC (3.8-10.6) k/uL RBC (4.30-5.90) m/uL Hgb (13.0-17.5) gm/dL Hct (39.0-53.0) % MCV (80.0-100.0) fL MCHC (31.0-37.0) g/dL RDW (11.5-15.5) % Neutrophils # (Manual) (1.3-7.7) k/uL APTT (22.0-30.0) sec Chloride (98-107) mmol/L Carbon Dioxide (22-30) mmol/L BUN (9-20) mg/dL Creatinine (0.66-1.25) mg/dL Glucose (74-99) mg/dL Plasma Lactic Acid Kal 2.4 H* 3.0 H* (0.7-2.0) mmol/L Calcium (8.4-10.2) mg/dL Albumin (3.5-5.0) g/dL Amylase (30-110) U/L Lipase (23-300) U/L Urine Protein Trace H (Negative) Urine Blood Moderate H (Negative) Ur Leukocyte Esterase Moderate H (Negative) Urine RBC 79 H (0-5) /hpf Urine WBC 62 H (0-5) /hpf Urine Bacteria Many H (None) /hpf 05/01/23 Range/Units 07:22 WBC (3.8-10.6) k/uL RBC (4.30-5.90) m/uL Hgb (13.0-17.5) gm/dL Hct (39.0-53.0) % MCV (80.0-100.0) fL MCHC (31.0-37.0) g/dL RDW (11.5-15.5) % Neutrophils # (Manual) (1.3-7.7) k/uL APTT (22.0-30.0) sec Chloride (98-107) mmol/L Carbon Dioxide (22-30) mmol/L BUN (9-20) mg/dL Creatinine (0.66-1.25) mg/dL Glucose (74-99) mg/dL Plasma Lactic Acid Kal 2.4 H* (0.7-2.0) mmol/L Calcium (8.4-10.2) mg/dL Albumin (3.5-5.0) g/dL Amylase (30-110) U/L Lipase (23-300) U/L Urine Protein (Negative) Urine Blood (Negative) Ur Leukocyte Esterase (Negative) Urine RBC (0-5) /hpf Urine WBC (0-5) /hpf Urine Bacteria (None) /hpf Assessment and Plan Assessment: Assessment and plan * Pyelonephritis with obstructive calculus right proximal ureter * Sepsis secondary to pyelonephritis * History of Crohn's disease * History of hyperuricemia * hypertension * In regards to pyelonephritis, obstructive calculus, patient started on fluid resuscitation. Serial lactate levels ordered continue Zosyn and vancomycin, infectious disease and urology consulted * In regards to obstructive calculus, urology consulted plan for intervention/cystoscopy patient nothing by mouth * In regards to sepsis secondary to pyelonephritis, blood cultures collected continue with fluid resuscitation continue broad-spectrum antibiotic * In regards to history of Crohn's disease continue to monitor for relapse/sclera * In regards to history of hypertension continue patient on amlodipine * Status is full code Time with Patient: Greater than 30
[2023-05-01] MEDS: HEPARIN SODIUM,PORCINE 5,000 UNIT/ML 1 ML VIAL SQ SCH (23:08)
[2023-05-01] MEDS: CEFEPIME 2 GM in SODIUM CHLORIDE 0.9% 100 ML IVPB SCH (23:08)
[2023-05-02] MEDS: HYDROmorphone 0.5 MG/0.5 ML SYRINGE IVP PRN ×2 (01:00→04:30)
[2023-05-02] MEDS: SODIUM CHLORIDE 0.9% 1,000 ML IV SCH ×3 (01:01→16:11)
[2023-05-02] MEDS: Buprenorphine Hcl/Naloxone Hcl [Suboxone 2 Mg-0.5 Mg Sl Film] 1 EACH F SUBLINGUAL SCH ×2 (02:35→08:52)
[2023-05-02] MEDS ORDERED: VANCOMYCIN 1,250 MG in SODIUM CHLORIDE 0.9% 250 ML IVPB SCH ×4 (05:00→16:45)
[2023-05-02] MEDS: CEFEPIME 2 GM in SODIUM CHLORIDE 0.9% 100 ML IVPB SCH ×2 (06:55→20:12)
--- NOTE | 2023-05-02 07:55 | P.CONS ---
History of Present Illness - Reason for Consult Consult date: 05/01/23 Pyelonephritis with sepsis Requesting physician: Mera Flroes - Chief Complaint Right flank pain x 1 day - History of Present Illness Patient is a 73-year-old male with a past medical history significant for atrial fibrillation reflux hypertension rheumatoid arthritis presenting to the hospital with a 1 day history of acute right flank pain radiating to the [facility] groin area patient was describing the pain to be sharp, 10 out of 10, patient did have associated nausea and vomiting with it patient denies any diarrhea did have some burning of urine but no hematuria and did have some chills with the symptoms the patient present to the hospital on arrival to the ER patient was afebrile and no fever has been recorded subsequently patient was tachycardic on presentation but not hypoxic or hypotensive patient did have elevated lactic acid white count was 32.4 with a left shift BUN/creatinine has been mildly elevated liver exams are normal urine was positive patient did have a CT abdominal pelvis bilateral nonobstructing renal calculi redemonstrated is a 10 mm calculus in the proximal right ureter causing right-sided hydronephrosis patient was evaluated by urology patient was taken to the OR this morning and the patient is at risk for cystoscopy with the placement of double-J catheter right 16x26 patient has been started on vancomycin and Zosyn infectious he was consulted for further management of antibiotic therapy Review of Systems Positive point and negatives has been mentioned in the HPI, complete review of systems was performed and all other systems are negative Past Medical History Past Medical History: Atrial Fibrillation, GERD/Reflux, Hypertension, Rheumatoid Arthritis (RA), Skin Disorder, Supraventricular Tachycardia (SVT) Additional Past Medical History / Comment(s): hx CROHN'S (takes tresa), IBS, chronic diarrhea, migraines-, hx ulcers, anemia, gout, kidney stones, psoriasis, bilateral tinnitis., pinched sciatic nerve, C-Diff 2017, neuropathy History of Any Multi-Drug Resistant Organisms: C-DIFF Year Discovered:: stool MDRO Source:: 2017 Past Surgical History: Bowel Resection, Cardiac Ablation, Cholecystectomy, Heart Catheterization, Hernia Repair, Orthopedic Surgery, Tonsillectomy Additional Past Surgical History / Comment(s): 1/3 of stomach removed (partial gastrectomy), ulcers, bowel resections, fecal transplant 2017, bilateral knee arthroscopic surgery, EGD/colonoscopies, R inguinal hernia repair, bilat cataract removal, Past Anesthesia/Blood Transfusion Reactions: Blood Transfusion Reaction, Motion Sickness Additional Past Anesthesia/Blood Transfusion Reaction / Comm: BLOOD TRANSFUSION- BROKE OUT IN HIVES age 21 Past Psychological History: Anxiety Smoking Status: Never smoker Past Alcohol Use History: None Reported Past Drug Use History: None Reported - Past Family History Mother Family Medical History: Pulmonary Embolus Additional Family Medical History / Comment(s): AGE 73-OK, STROKE DURING CARATID PROCEDURE Medications and Allergies Home Medications Medication Instructions Recorded Confirmed Type Orphenadrine Citrate [Orphenadrine 100 mg PO BID 12/08/17 05/01/23 History Citrate ER] Febuxostat [Uloric] 80 mg PO DAILY 05/05/18 05/01/23 History amLODIPine [Norvasc] 10 mg PO DAILY 10/18/20 05/01/23 History Adalimumab [Humira(Cf) Pen] 40 mg SQ Q14D 08/16/22 05/01/23 History Buprenorphine HCl/Naloxone HCl 2 film SL DAILY 08/16/22 05/01/23 History [Suboxone 2 mg-0.5 mg Sl Film] Omeprazole [PriLOSEC] 40 mg PO AC-BRKFST #90 cap 08/19/22 05/01/23 Rx Diphenox-Atrop 2.5-0.025 mg 2 tab PO ACHS 12/24/22 05/01/23 History [Lomotil] Tamsulosin [Flomax] 0.4 mg PO DAILY #30 cap 12/26/22 05/01/23 Rx predniSONE [Deltasone] 20 mg PO DAILY 05/01/23 05/01/23 History Allergies Allergy/AdvReac Type Severity Reaction Status Date / Time Iodinated Contrast Media Allergy Anaphylaxis Verified 05/01/23 00:40 [Iodinated Contrast Media - IV Dye] Physical Exam Vitals: Vital Signs Temp Pulse Pulse Resp BP BP Pulse Ox 05/01/23 12:10 79 18 142/74 96 05/01/23 11:30 97.6 F 90 18 145/68 99 05/01/23 10:50 91 18 122/60 100 05/01/23 10:35 99.3 F 100 20 118/62 99 05/01/23 09:20 92 20 132/69 99 05/01/23 07:41 98 F 104 H 18 109/64 96 01/14/24 06:03 87 18 143/95 96 05/01/23 04:00 85 20 198/106 96 05/01/23 02:00 80 20 151/106 96 05/01/23 00:33 97.5 F L 77 135/103 98 Intake and Output 04/30/23 05/01/23 05/01/23 22:59 06:59 14:59 Intake Total 350 Output Total 0 Balance 350 Intake: IV 350 Output: Estimated Blood Loss 0 Other: Weight 65.771 kg 65.771 kg GENERAL DESCRIPTION: Elderly male lying in bed, no distress. No tachypnea or accessory muscle of respiration use. HEENT: Shows Pallor , no scleral icterus. Oral mucous membrane is dry. No pharyngeal erythema or thrush NECK: Trachea central, no thyromegaly. LUNGS: Unlabored breathing. Clear to auscultation anteriorly. No wheeze or crackle. HEART: S1, S2, regular rate and rhythm. No loud murmur ABDOMEN: Soft, no tenderness , EXTREMITIES: No edema of feet. SKIN: No rash, no masses palpable. NEUROLOGICAL: The patient is awake, alert, oriented x3, mood and affect normal. Results CBC & Chem 7: 05/01/23 01:34 05/01/23 01:34 Labs: Abnormal Lab Results - Last 24 Hours (Table) 05/01/23 05/01/23 05/01/23 Range/Units 01:34 01:34 01:34 WBC 32.4 H (3.8-10.6) k/uL RBC 3.02 L (4.30-5.90) m/uL Hgb 9.4 L (13.0-17.5) gm/dL Hct 30.7 L (39.0-53.0) % MCV 101.6 H (80.0-100.0) fL MCHC 30.6 L (31.0-37.0) g/dL RDW 16.3 H (11.5-15.5) % Neutrophils # (Manual) 30.70 H (1.3-7.7) k/uL APTT 21.4 L (22.0-30.0) sec Chloride 109 H (98-107) mmol/L Carbon Dioxide 16 L (22-30) mmol/L BUN 38 H (9-20) mg/dL Creatinine 1.48 H (0.66-1.25) mg/dL Glucose 135 H (74-99) mg/dL Plasma Lactic Acid Kal (0.7-2.0) mmol/L Calcium 8.3 L (8.4-10.2) mg/dL Albumin 3.3 L (3.5-5.0) g/dL Amylase 115 H (30-110) U/L Lipase 21 L (23-300) U/L Urine Protein (Negative) Urine Blood (Negative) Ur Leukocyte Esterase (Negative) Urine RBC (0-5) /hpf Urine WBC (0-5) /hpf Urine Bacteria (None) /hpf 05/01/23 05/01/23 05/01/23 Range/Units 01:34 03:43 04:27 WBC (3.8-10.6) k/uL RBC (4.30-5.90) m/uL Hgb (13.0-17.5) gm/dL Hct (39.0-53.0) % MCV (80.0-100.0) fL MCHC (31.0-37.0) g/dL RDW (11.5-15.5) % Neutrophils # (Manual) (1.3-7.7) k/uL APTT (22.0-30.0) sec Chloride (98-107) mmol/L Carbon Dioxide (22-30) mmol/L BUN (9-20) mg/dL Creatinine (0.66-1.25) mg/dL Glucose (74-99) mg/dL Plasma Lactic Acid Kal 2.4 H* 3.0 H* (0.7-2.0) mmol/L Calcium (8.4-10.2) mg/dL Albumin (3.5-5.0) g/dL Amylase (30-110) U/L Lipase (23-300) U/L Urine Protein Trace H (Negative) Urine Blood Moderate H (Negative) Ur Leukocyte Esterase Moderate H (Negative) Urine RBC 79 H (0-5) /hpf Urine WBC 62 H (0-5) /hpf Urine Bacteria Many H (None) /hpf 05/01/23 Range/Units 07:22 WBC (3.8-10.6) k/uL RBC (4.30-5.90) m/uL Hgb (13.0-17.5) gm/dL Hct (39.0-53.0) % MCV (80.0-100.0) fL MCHC (31.0-37.0) g/dL RDW (11.5-15.5) % Neutrophils # (Manual) (1.3-7.7) k/uL APTT (22.0-30.0) sec Chloride (98-107) mmol/L Carbon Dioxide (22-30) mmol/L BUN (9-20) mg/dL Creatinine (0.66-1.25) mg/dL Glucose (74-99) mg/dL Plasma Lactic Acid Kal 2.4 H* (0.7-2.0) mmol/L Calcium (8.4-10.2) mg/dL Albumin (3.5-5.0) g/dL Amylase (30-110) U/L Lipase (23-300) U/L Urine Protein (Negative) Urine Blood (Negative) Ur Leukocyte Esterase (Negative) Urine RBC (0-5) /hpf Urine WBC (0-5) /hpf Urine Bacteria (None) /hpf Assessment and Plan (1) Pyelonephritis Current Visit: Yes Status: Acute Code(s): N12 - TUBULO-INTERSTITIAL NEPHRITIS, NOT SPCF ACUTE OR CHRONIC SNOMED Code(s): 06528054 (2) Complicated UTI (urinary tract infection) Current Visit: Yes Status: Acute Code(s): N39.0 - URINARY TRACT INFECTION, SITE NOT SPECIFIED SNOMED Code(s): 95686798 (3) Sepsis Current Visit: Yes Status: Acute Code(s): A41.9 - SEPSIS, UNSPECIFIED ORGANISM SNOMED Code(s): 76474479 Plan: 1patient presented to hospital with sepsis in this patient who did have a leukocytosis tachycardia elevated lactic acid cirrhosis complicated UTI/pyelonephritis in this patient who did have a right-sided renal stone causing right-sided hydronephrosis requiring cystoscopy and double-J catheter placement, the likely pathogen need to cover will be the enteric gram-negative 2-discontinue vancomycin and Zosyn to decrease risk of nephrotoxicity 3-we will start the patient cefepime 2 g every 8 hours while waiting for the culture to finalize We will follow on clinical condition and cultures to further adjust medication if needed Thank you for this consultation we will follow the patient along with you Dictation was produced using [employer] dictation software. please excuse any gra mmatical, word or spelling errors. Time with Patient: Greater than 30
[2023-05-02] MEDS: HYDROmorphone 1 MG/ML 1 ML SYRINGE IVP PRN ×4 (08:49→20:11)
[2023-05-02] MEDS: TAMSULOSIN 0.4 MG CAP.ER.24H PO SCH (08:52)
[2023-05-02] MEDS: amLODIPine 10 MG TAB PO SCH (08:52)
[2023-05-02] MEDS: HEPARIN SODIUM,PORCINE 5,000 UNIT/ML 1 ML VIAL SQ SCH ×2 (08:52→15:48)
[2023-05-02] MEDS: PANTOPRAZOLE 40 MG/10 ML VIAL IV SCH (08:53)
--- NOTE | 2023-05-02 09:19 | P.PN ---
Subjective Progress Note Date: 05/02/23 Principal diagnosis: abdominal pain, kidney stone Is a 73-year-old male who presented to the emergency room with complaints of severe abdominal discomfort. Pain radiated to his right flank and was associated with nausea and vomiting. T on admission showed a 10mm right ureter stone with mild right sided hydronephrosis. To gas at on admission was 2.4 and patient was started on Zosyn and vancomycin. Urology was consulted and yesterday Dr. Pleitez placed a stent in the right ureter and he states will be removed once since has cleared. Patient is seen laying in bed this morning, does report continued pain, feels like dilaudid dose of 0.5 mg is not strong enough and is reportedly only lasting 5 minutes Objective - Vital Signs Vital signs: Vital Signs Temp 97.8 F 05/02/23 07:58 Pulse 80 05/02/23 07:58 Resp 15 05/02/23 07:58 BP 150/64 05/02/23 07:58 Pulse Ox 98 05/02/23 07:58 FiO2 Intake & Output 05/01/23 05/02/23 05/02/23 18:59 06:59 18:59 Intake Total 470 Output Total 900 Balance -430 Weight 65.771 kg Intake: IV 350 Oral 120 Output: Urine 900 Estimated Blood Loss 0 Other: Voiding Method Urinal Toilet Urinal # Voids 1 1 # Bowel Movements 0 - Constitutional General appearance: Present: cooperative, no acute distress - EENT Eyes: Present: PERRLA - Neck Neck: Present: normal ROM. Absent: rigidity - Respiratory Respiratory: bilateral: CTA - Cardiovascular Heart sounds: normal: S1, S2 - Gastrointestinal General gastrointestinal: Present: tenderness - Musculoskeletal Musculoskeletal: Present: generalized weakness - Psychiatric Psychiatric: Present: A&O x's 3, appropriate affect, intact judgment & insight - Labs CBC & Chem 7: 05/01/23 01:34 05/01/23 01:34 Labs: Abnormal Lab Results - Last 24 Hours (Table) 05/01/23 05/01/23 05/01/23 Range/Units 13:03 14:33 18:05 Plasma Lactic Acid Kal 2.9 H* 2.8 H* (0.7-2.0) mmol/L Urine Protein Trace H (Negative) Urine Blood Large H (Negative) Ur Leukocyte Esterase Large H (Negative) Urine RBC >182 H (0-5) /hpf Urine WBC 127 H (0-5) /hpf Urine WBC Clumps Few H (None) /hpf Urine Mucus Rare H (None) /hpf 05/01/23 Range/Units 21:07 Plasma Lactic Acid Kal 2.2 H* (0.7-2.0) mmol/L Urine Protein (Negative) Urine Blood (Negative) Ur Leukocyte Esterase (Negative) Urine RBC (0-5) /hpf Urine WBC (0-5) /hpf Urine WBC Clumps (None) /hpf Urine Mucus (None) /hpf Assessment and Plan (1) Calculus of ureter Current Visit: Yes Status: Acute Code(s): N20.1 - CALCULUS OF URETER SNOMED Code(s): 35749428 (2) Nausea and vomiting Current Visit: Yes Status: Acute Code(s): R11.2 - NAUSEA WITH VOMITING, UNSPECIFIED SNOMED Code(s): 96671779 (3) Pyelonephritis Current Visit: Yes Status: Acute Code(s): N12 - TUBULO-INTERSTITIAL NEPHRITIS, NOT SPCF ACUTE OR CHRONIC SNOMED Code(s): 41369086 (4) Sepsis Current Visit: Yes Status: Acute Code(s): A41.9 - SEPSIS, UNSPECIFIED ORGANISM SNOMED Code(s): 75486739 (5) Crohns disease Current Visit: No Status: Acute Code(s): K50.90 - CROHN'S DISEASE, UNSPECIFIED, WITHOUT COMPLICATIONS SNOMED Code(s): 74734768 (6) Hypertension Current Visit: No Status: Acute Code(s): I10 - ESSENTIAL (PRIMARY) HYPERTENSION SNOMED Code(s): 52227118 (7) Atrial fibrillation Current Visit: Yes Status: Acute Code(s): I48.91 - UNSPECIFIED ATRIAL FIBRILLATION SNOMED Code(s): 13770112 Plan: Continue IV antibiotics increase Dilaudid to 1 mg for better pain control Check CBC and CMP in the morning Patient seen and evaluated by nurse practitioner, physician in agreement with plan
[2023-05-02 11:25] LABS: BUN/Creat Ratio 24.77 Ratio (12.00-20.00); Blood Urea Nitrogen 32.2 mg/dL (9.0-27.0); Calcium 6.9 mg/dL (8.7-10.3); Carbon Dioxide 12.7 mmol/L (21.6-31.8); Chloride 117 mmol/L (96-109); Glucose 86 mg/dL (70-110); Potassium 3.4 mmol/L (3.5-5.5); Sodium 142 mmol/L (135-145)
[2023-05-02 11:46] LABS: Basophils # (A) 0.03 X 10*3/uL (0.00-0.10); Basophils % (A) 0.2 %; Eosinophils # (A) 0.18 X 10*3/uL (0.04-0.35); Eosinophils % (A) 0.9 %; HCT 23.2 % (39.6-50.0); HGB 6.7 g/dL (13.0-17.0); Lymphocytes # (A) 1.03 X 10*3/uL (0.90-5.00); Lymphocytes % (A) 5.2 %; MCH 30.6 pg (27.0-32.0); MCHC 28.9 g/dL (32.0-37.0); MCV 105.9 FL (80.0-97.0); Monocytes # (A) 0.63 X 10*3/uL (0.20-1.00); Monocytes % (A) 3.2 %; NRBC Per 100 WBC 0 X 10*3/uL (0.00-0.01); Neutrophils # (A) 17.66 X 10*3/uL (1.80-7.70); Neutrophils % (A) 89.2 %; Platelet Count 146 X 10*3/uL (140-440); RBC 2.19 X 10*6/uL (4.40-5.60); RDW 17.4 % (11.5-14.5); WBC 19.78 X 10*3/uL (4.50-10.00)
--- NOTE | 2023-05-02 12:24 | P.PN ---
Subjective Progress Note Date: 05/02/23 Principal diagnosis: UTI with Sepsis The patient presented with sepsis of urinary origin. CT scan shows right hydronephrosis due to obstructing right ureteral calculi, and urinalysis is consistent with infection. He underwent right ureteral stent placement yesterday by Dr. Clement. He states that he is feeling much better today. However, he continues to report mild dysuria, hematuria, and right flank pain. Objective - Vital Signs Vital signs: Vital Signs Temp 97.7 F 05/02/23 01:28 Pulse 69 05/02/23 01:28 Resp 16 05/02/23 01:28 BP 133/64 05/02/23 01:28 Pulse Ox 99 05/02/23 01:28 FiO2 Intake & Output 05/01/23 05/02/23 05/02/23 18:59 06:59 18:59 Intake Total 470 Output Total 900 Balance -430 Weight 65.771 kg Intake: IV 350 Oral 120 Output: Urine 900 Estimated Blood Loss 0 Other: Voiding Method Urinal Toilet Urinal # Voids 1 1 # Bowel Movements 0 - Constitutional General appearance: Present: average body habitus, no acute distress - Psychiatric Psychiatric: Present: A&O x's 3 - Labs CBC & Chem 7: 05/02/23 06:18 05/02/23 06:18 Labs: Abnormal Lab Results - Last 24 Hours (Table) 05/01/23 05/01/23 05/01/23 Range/Units 07:22 13:03 14:33 Plasma Lactic Acid Kal 2.4 H* 2.9 H* (0.7-2.0) mmol/L Urine Protein Trace H (Negative) Urine Blood Large H (Negative) Ur Leukocyte Esterase Large H (Negative) Urine RBC >182 H (0-5) /hpf Urine WBC 127 H (0-5) /hpf Urine WBC Clumps Few H (None) /hpf Urine Mucus Rare H (None) /hpf 05/01/23 05/01/23 Range/Units 18:05 21:07 Plasma Lactic Acid Kal 2.8 H* 2.2 H* (0.7-2.0) mmol/L Urine Protein (Negative) Urine Blood (Negative) Ur Leukocyte Esterase (Negative) Urine RBC (0-5) /hpf Urine WBC (0-5) /hpf Urine WBC Clumps (None) /hpf Urine Mucus (None) /hpf Assessment and Plan (1) Hydronephrosis with renal and ureteral calculous obstruction Current Visit: Yes Status: Acute Code(s): N13.2 - HYDRONEPHROSIS WITH RENAL AND URETERAL CALCULOUS OBSTRUCTION SNOMED Code(s): 317097069 (2) Acute pyelonephritis Current Visit: Yes Status: Acute Code(s): N10 - ACUTE PYELONEPHRITIS SNOMED Code(s): 49023228 Plan: The ureteral obstruction has been successfully relieved. A urine culture is pending. In the meantime, he will continue to receive cefepime.
[2023-05-02] MEDS ORDERED: VANCOMYCIN IV PER PHARMACY 1 EACH MISC MISCELLANE PRN (16:09)
[2023-05-02] MEDS ORDERED: Potassium Replacement Protocol 1 EACH MISC MISCELLANE PRN (16:15)
[2023-05-02 16:48] VITALS: BMI 18.6
[2023-05-02] MEDS: POTASSIUM CHLORIDE ER 20 MEQ TAB.ER PO SCH ×2 (17:04→17:11)
[2023-05-03] MEDS: HEPARIN SODIUM,PORCINE 5,000 UNIT/ML 1 ML VIAL SQ SCH ×3 (00:22→17:07)
[2023-05-03] MEDS: HYDROmorphone 1 MG/ML 1 ML SYRINGE IVP PRN ×6 (00:23→21:40)
[2023-05-03] MEDS: SODIUM CHLORIDE 0.9% 1,000 ML IV SCH ×3 (04:57→17:07)
[2023-05-03] MEDS: CEFEPIME 2 GM in SODIUM CHLORIDE 0.9% 100 ML IVPB SCH (06:20)
--- NOTE | 2023-05-03 08:49 | P.PN ---
Subjective Progress Note Date: 05/03/23 Principal diagnosis: abdominal pain, kidney stone Is a 73-year-old male who presented to the emergency room with complaints of severe abdominal discomfort. Pain radiated to his right flank and was associated with nausea and vomiting. CT on admission showed a 10mm right ureter stone with mild right sided hydronephrosis. To gas at on admission was 2.4 and patient was started on Zosyn and vancomycin. Urology was consulted and yesterday Dr. Pleitez placed a stent in the right ureter and he states will be removed once since has cleared. Patient is seen laying in bed this morning, does report continued pain, feels like dilaudid dose of 0.5 mg is not strong enough and is reportedly only lasting 5 minutes 05/03/23 Patient is seen and evaluated laying comfortably in bed this morning. He is still reporting some right-sided flank pain. Hemoglobin yesterday was 6.7 and patient received 1 unit of packed red blood cells. Labs today are pending at time of dictation. Objective - Vital Signs Vital signs: Vital Signs Temp 97.6 F 05/03/23 07:25 Pulse 52 L 05/03/23 07:25 Resp 16 05/03/23 07:25 BP 180/69 05/03/23 07:25 Pulse Ox 97 05/03/23 07:25 FiO2 Intake & Output 05/02/23 05/03/23 05/03/23 18:59 06:59 18:59 Intake Total 310 Balance 310 Weight 65.771 kg Intake: Blood Product 310 Rc As-1 Unit 310 [id number] Other: Voiding Method Toilet Toilet Urinal # Voids 300 3 # Bowel Movements 2 - Constitutional General appearance: Present: cooperative, no acute distress - EENT Eyes: Present: PERRLA - Neck Neck: Present: normal ROM. Absent: lymphadenopathy, rigidity - Respiratory Respiratory: bilateral: CTA - Cardiovascular Heart sounds: normal: S1, S2 - Gastrointestinal General gastrointestinal: Present: soft, tenderness - Integumentary Integumentary: Present: normal, normal turgor - Musculoskeletal Musculoskeletal: Present: generalized weakness - Psychiatric Psychiatric: Present: A&O x's 3, appropriate affect, intact judgment & insight - Labs CBC & Chem 7: 05/02/23 06:18 05/02/23 06:18 Labs: Abnormal Lab Results - Last 24 Hours (Table) 05/02/23 05/02/23 05/02/23 Range/Units 06:18 06:18 12:03 WBC 19.78 H (4.50-10.00) X 10*3/uL RBC 2.19 L (4.40-5.60) X 10*6/uL Hgb 6.7 A* (13.0-17.0) g/dL Hct 23.2 L (39.6-50.0) % MCV 105.9 H (80.0-97.0) FL MCHC 28.9 L (32.0-37.0) g/dL RDW 17.4 H (11.5-14.5) % Immature Gran # 0.25 H (0.00-0.04) X 10*3/uL Neutrophils # 17.66 H (1.80-7.70) X 10*3/uL Potassium 3.4 L (3.5-5.5) mmol/L Chloride 117 H (96-109) mmol/L Carbon Dioxide 12.7 L (21.6-31.8) mmol/L Anion Gap 12.30 H (4.00-12.00) mmol/L BUN 32.2 H (9.0-27.0) mg/dL Est GFR (CKD-EPI) 58 L (>=60) BUN/Creatinine Ratio 24.77 H (12.00-20.00) Ratio Calcium 6.9 L (8.7-10.3) mg/dL Crossmatch See Detail Microbiology - Last 24 Hours (Table) 05/01/23 14:12 Blood Culture Gram Stain - Preliminary Blood 05/01/23 14:33 Blood Culture Gram Stain - Preliminary Blood Assessment and Plan (1) Calculus of ureter Current Visit: Yes Status: Acute Code(s): N20.1 - CALCULUS OF URETER SNOM ED Code(s): 25988867 (2) Nausea and vomiting Current Visit: Yes Status: Acute Code(s): R11.2 - NAUSEA WITH VOMITING, UNSPECIFIED SNOMED Code(s): 04768520 (3) Pyelonephritis Current Visit: Yes Status: Acute Code(s): N12 - TUBULO-INTERSTITIAL NEPHRITIS, NOT SPCF ACUTE OR CHRONIC SNOMED Code(s): 41975121 (4) Sepsis Current Visit: Yes Status: Acute Code(s): A41.9 - SEPSIS, UNSPECIFIED ORGANISM SNOMED Code(s): 55167760 (5) Crohns disease Current Visit: No Status: Acute Code(s): K50.90 - CROHN'S DISEASE, UNSPECIFIED, WITHOUT COMPLICATIONS SNOMED Code(s): 86656782 (6) Hypertension Current Visit: No Status: Acute Code(s): I10 - ESSENTIAL (PRIMARY) HYPERTENSION SNOMED Code(s): 04070316 (7) Atrial fibrillation Current Visit: Yes Status: Acute Code(s): I48.91 - UNSPECIFIED ATRIAL FIBRILLATION SNOMED Code(s): 50539533 Plan: Continue IV antibiotics Encourage ambulation Check CBC and CMP in the morning Patient seen and evaluated by nurse practitioner, physician in agreement with plan
[2023-05-03] MEDS: PANTOPRAZOLE 40 MG/10 ML VIAL IV SCH (09:00)
[2023-05-03] MEDS: amLODIPine 10 MG TAB PO SCH (09:00)
[2023-05-03] MEDS: TAMSULOSIN 0.4 MG CAP.ER.24H PO SCH (09:00)
[2023-05-03] MEDS: Buprenorphine Hcl/Naloxone Hcl [Suboxone 2 Mg-0.5 Mg Sl Film] 1 EACH F SUBLINGUAL SCH (09:01)
[2023-05-03] MEDS: VANCOMYCIN 1,250 MG in SODIUM CHLORIDE 0.9% 250 ML IVPB SCH (09:17)
[2023-05-03 09:27] LABS: HCT 26.8 % (39.6-50.0); MCH 29.7 pg (27.0-32.0); MCHC 29.9 g/dL (32.0-37.0); MCV 99.6 FL (80.0-97.0); Mean Platelet Volume 10.7 FL (9.5-12.2); NRBC Per 100 WBC 0 X 10*3/uL (0.00-0.01); Platelet Count 148 X 10*3/uL (140-440); RBC 2.69 X 10*6/uL (4.40-5.60); RDW 18.8 % (11.5-14.5); WBC 12.18 X 10*3/uL (4.50-10.00)
[2023-05-03 10:38] LABS: ALT 27 U/L (10-49); AST 19 U/L (14-35); Albumin 2.5 g/dL (3.8-4.9); Albumin/Globulin Ratio 1.19 Ratio (1.60-3.17); Alkaline Phosphatase 75 U/L (41-126); BUN/Creat Ratio 19.09 Ratio (12.00-20.00); Calcium 7.1 mg/dL (8.7-10.3); Carbon Dioxide 15.6 mmol/L (21.6-31.8); Chloride 116 mmol/L (96-109); Globulin 2.1 g/dL (1.6-3.3); Glucose 99 mg/dL (70-110); Potassium 3.7 mmol/L (3.5-5.5); Sodium 141 mmol/L (135-145); Total Bilirubin 0.4 mg/dL (0.3-1.2); Total Protein 4.6 g/dL (6.2-8.2)
--- NOTE | 2023-05-03 13:31 | P.PN ---
Subjective Progress Note Date: 05/02/23 Principal diagnosis: Reason for follow-up with sepsis complicated UTI and bacteremia Patient is a 73-year-old male with a past medical history significant for atrial fibrillation reflux hypertension rheumatoid arthritis presenting to the hospital with a 1 day history of acute right flank pain radiating to the right groin area, patient was diagnosed with a complicated UTI in this patient who did have a 10 mm calculus in the proximal right ureter status post cystosco py and right sided double-J catheter placement. On today's evaluation that is 05/02/2023, the patient continues to be afebrile patient is breathing comfortably on room air without need for supplemental oxygen the patient denies chest pain, cough. Patient still complaining of some right-sided abdominal pain no nausea no vomiting and did have some diarrhea. Patient white count of 19.78, creatinine is 1.3, lactic acid 0.9 blood culture with presumptive MRSA Objective - Vital Signs Vital signs: Vital Signs Temp 97.8 F 05/02/23 07:58 Pulse 80 05/02/23 07:58 Resp 15 05/02/23 07:58 BP 150/64 05/02/23 07:58 Pulse Ox 98 05/02/23 07:58 FiO2 Intake & Output 05/01/23 05/02/23 05/02/23 18:59 06:59 18:59 Intake Total 470 Output Total 900 Balance -430 Weight 65.771 kg Intake: IV 350 Oral 120 Output: Urine 900 Estimated Blood Loss 0 Other: Voiding Method Urinal Toilet Urinal # Voids 1 1 # Bowel Movements 0 - Exam GENERAL DESCRIPTION: An elderly male lying in bed in no distress RESPIRATORY SYSTEM: Unlabored breathing , decreased breath sounds at bases HEART: S1 S2 regular rate and rhythm , ABDOMEN: Soft , no tenderness EXTREMITIES: No edema feet - Labs CBC & Chem 7: 05/03/23 06:07 05/03/23 06:07 Labs: Abnormal Lab Results - Last 24 Hours (Table) 05/01/23 05/01/23 05/01/23 Range/Units 13:03 14:33 18:05 Plasma Lactic Acid Kal 2.9 H* 2.8 H* (0.7-2.0) mmol/L Urine Protein Trace H (Negative) Urine Blood Large H (Negative) Ur Leukocyte Esterase Large H (Negative) Urine RBC >182 H (0-5) /hpf Urine WBC 127 H (0-5) /hpf Urine WBC Clumps Few H (None) /hpf Urine Mucus Rare H (None) /hpf 05/01/23 Range/Units 21:07 Plasma Lactic Acid Kal 2.2 H* (0.7-2.0) mmol/L Urine Protein (Negative) Urine Blood (Negative) Ur Leukocyte Esterase (Negative) Urine RBC (0-5) /hpf Urine WBC (0-5) /hpf Urine WBC Clumps (None) /hpf Urine Mucus (None) /hpf Assessment and Plan (1) Pyelonephritis Current Visit: Yes Status: Acute Code(s): N12 - TUBULO-INTERSTITIAL NEPHRITIS, NOT SPCF ACUTE OR CHRONIC SNOMED Code(s): 66101440 (2) Complicated UTI (urinary tract infection) Current Visit: Yes Status: Acute Code(s): N39.0 - URINARY TRACT INFECTION, SITE NOT SPECIFIED SNOMED Code(s): 20248196 (3) Sepsis Current Visit: Yes Status: Acute Code(s): A41.9 - SEPSIS, UNSPECIFIED ORGANISM SNOMED Code(s): 45440984 (4) MRSA bacteremia Current Visit: Yes Status: Acute Code(s): R78.81 - BACTEREMIA; B95.62 - METHICILLIN RESIS STAPH INFCT CAUSING DISEASES CLASSD ELSWHR SNOMED Code(s): 47329566358978523 Plan: 1patient presented to hospital with sepsis in this patient who did have a leukocytosis tachycardia elevated lactic acid cirrhosis complicated UTI/pyelonephritis in this patient who did have a right-sided renal stone causing right-sided hydronephrosis requiring cystoscopy and double-J catheter placement, the likely pathogen need to cover will be the enteric gram-negative 2-patient clinical course complicated by development of bacteremia with presumptive MRSA 3-we will start the patient on vancomycin pharmacy to dose and continue cefepime 2 g every 8 hours while waiting for the culture to finalize 4blood cultures will be repeated document clearance of bacteremia Dictation was produced using [employer]ation software. please excuse any grammatical, word or spelling errors. Time with Patient: Greater than 30
--- NOTE | 2023-05-03 13:33 | P.PN ---
Subjective Progress Note Date: 05/03/23 Principal diagnosis: Reason for follow-up with sepsis complicated UTI and bacteremia Patient is a 73-year-old male with a past medical history significant for atrial fibrillation reflux hypertension rheumatoid arthritis presenting to the hospital with a 1 day history of acute right flank pain radiating to the right groin area, patient was diagnosed with a complicated UTI in this patient who did have a 10 mm calculus in the proximal right ureter status post cystosco py and right sided double-J catheter placement. On today's evaluation that is 05/03/2023, the patient remains to be afebrile, the patient is breathing comfortably on room air and the patient denies any shortness of breath, the patient denies chest pain or any cough , patient denies any nausea/vomiting still complaining of some discomfort to the right flank area and diarrhea has slowed down Patient white count is down to 12.18, creatinine is 1.1, blood culture with MRSA Objective - Vital Signs Vital signs: Vital Signs Temp 97.6 F 05/03/23 07:25 Pulse 52 L 05/03/23 07:25 Resp 16 05/03/23 07:25 BP 180/69 05/03/23 07:25 Pulse Ox 97 05/03/23 07:25 FiO2 Intake & Output 05/02/23 05/03/23 05/03/23 18:59 06:59 18:59 Intake Total 310 708 Balance 310 708 Weight 65.771 kg Intake: Oral 708 Blood Product 310 Rc As-1 Unit 310 [id number] Other: Voiding Method Toilet Toilet Urinal # Voids 300 3 # Bowel Movements 2 - Exam GENERAL DESCRIPTION: An elderly male lying in bed in no distress RESPIRATORY SYSTEM: Unlabored breathing , decreased breath sounds at bases HEART: S1 S2 regular rate and rhythm , ABDOMEN: Soft , no tenderness EXTREMITIES: No edema feet - Labs CBC & Chem 7: 05/03/23 06:07 05/03/23 06:07 Labs: Abnormal Lab Results - Last 24 Hours (Table) 05/02/23 05/03/23 05/03/23 Range/Units 12:03 06:07 06:07 WBC 12.18 H (4.50-10.00) X 10*3/uL RBC 2.69 L (4.40-5.60) X 10*6/uL Hgb 8.0 L (13.0-17.0) g/dL Hct 26.8 L (39.6-50.0) % MCV 99.6 H (80.0-97.0) FL MCHC 29.9 L (32.0-37.0) g/dL RDW 18.8 H (11.5-14.5) % Chloride 116 H (96-109) mmol/L Carbon Dioxide 15.6 L (21.6-31.8) mmol/L Calcium 7.1 L (8.7-10.3) mg/dL Total Protein 4.6 L (6.2-8.2) g/dL Albumin 2.5 L (3.8-4.9) g/dL Albumin/Globulin Ratio 1.19 L (1.60-3.17) Ratio Crossmatch See Detail Microbiology - Last 24 Hours (Table) 05/01/23 14:12 Blood Culture Gram Stain - Preliminary Blood Blood Culture - Preliminary Presumptive MRSA 05/01/23 14:33 Blood Culture Gram Stain - Preliminary Blood Blood Culture - Preliminary Presumptive MRSA Assessment and Plan (1) Pyelonephritis Current Visit: Yes Status: Acute Code(s): N12 - TUBULO-INTERSTITIAL NEPHRITIS, NOT SPCF ACUTE OR CHRONIC SNOMED Code(s): 21658227 (2) Complicated UTI (urinary tract infection) Current Visit: Yes Status: Acute Code(s): N39.0 - URINARY TRACT INFECTION, SITE NOT SPECIFIED SNOMED Code(s): 17348175 (3) Sepsis Current Visit: Yes Status: Acute Code(s): A41.9 - SEPSIS, UNSPECIFIED ORGANISM SNOMED Code(s): 66256972 (4) MRSA bacteremia Current Visit: Yes Status: Acute Code(s): R78.81 - BACTEREMIA; B95.62 - METHICILLIN RESIS STAPH INFCT [facility] Code(s): 38702905694588908 Plan: 1patient presented to hospital with sepsis in this patient who did have a leukocytosis tachycardia elevated lactic acid cirrhosis complicated UTI/pyelonephritis in this patient who did have a right-sided renal stone causing right-sided hydronephrosis requiring cystoscopy and double-J catheter placement, the likely pathogen need to cover will be the enteric gram-negative 2-patient clinical course complicated by development of bacteremia with presumptive MRSA, blood culture repeated document clearance of his bacteremia 3-patient to continue the vancomycin however we will discontinue vancomycin patient will need a PICC line and outpatient IV antibiotic therapy this was discussed with the piano case maker Dictation was produced using [employer] dictation software. please excuse any grammatical, word or spelling errors. Time with Patient: Less than 30
--- NOTE | 2023-05-03 15:48 | P.PN ---
Subjective Progress Note Date: 05/03/23 Principal diagnosis: UTI with Sepsis The patient presented with sepsis. CT scan shows right hydronephrosis due to obstructing right ureteral calculi, and urinalysis was consistent with infection. He underwent right ureteral stent placement on 05/01/[address] Clement. He states that he is feeling much better today. He denies dysuria and hematuria, and states that his right flank pain is much improved. Objective - Vital Signs Vital signs: Vital Signs Temp 97.5 F L 05/03/23 14:00 Pulse 67 05/03/23 14:00 Resp 16 05/03/23 14:00 BP 191/71 05/03/23 14:00 Pulse Ox 98 05/03/23 14:00 FiO2 Intake & Output 05/02/23 05/03/23 05/03/23 18:59 06:59 18:59 Intake Total 310 928 Balance 310 928 Weight 65.771 kg Intake: Oral 928 Blood Product 310 Rc As-1 Unit 310 [id number] Other: Voiding Method Toilet Toilet Urinal # Voids 300 3 # Bowel Movements 2 - Constitutional General appearance: Present: average body habitus, no acute distress - Psychiatric Psychiatric: Present: A&O x's 3 - Labs CBC & Chem 7: 05/03/23 06:07 05/03/23 06:07 Labs: Abnormal Lab Results - Last 24 Hours (Table) 05/02/23 05/03/23 05/03/23 Range/Units 12:03 06:07 06:07 WBC 12.18 H (4.50-10.00) X 10*3/uL RBC 2.69 L (4.40-5.60) X 10*6/uL Hgb 8.0 L (13.0-17.0) g/dL Hct 26.8 L (39.6-50.0) % MCV 99.6 H (80.0-97.0) FL MCHC 29.9 L (32.0-37.0) g/dL RDW 18.8 H (11.5-14.5) % Chloride 116 H (96-109) mmol/L Carbon Dioxide 15.6 L (21.6-31.8) mmol/L Calcium 7.1 L (8.7-10.3) mg/dL Total Protein 4.6 L (6.2-8.2) g/dL Albumin 2.5 L (3.8-4.9) g/dL Albumin/Globulin Ratio 1.19 L (1.60-3.17) Ratio Crossmatch See Detail Microbiology - Last 24 Hours (Table) 05/01/23 14:12 Blood Culture Gram Stain - Preliminary Blood Blood Culture - Preliminary Presumptive MRSA 05/01/23 14:33 Blood Culture Gram Stain - Preliminary Blood Blood Culture - Preliminary Presumptive MRSA Assessment and Plan (1) Hydronephrosis with renal and ureteral calculous obstruction Current Visit: Yes Status: Acute Code(s): N13.2 - HYDRONEPHROSIS WITH RENAL AND URETERAL CALCULOUS OBSTRUCTION SNOMED Code(s): 822964566 (2) Acute pyelonephritis Current Visit: Yes Status: Acute Code(s): N10 - ACUTE PYELONEPHRITIS SNOME D Code(s): 36815682 Plan: The ureteral obstruction has been successfully relieved. A urine culture appears to have been ordered, but there are no pending results. Blood cultures show MRSA, and at this time it is unclear whether or not that is of urinary or igin. The patient's overall condition is much improved. The urine culture should be reordered if not done. I explained to Mr. Rajan that he will require ureteroscopic removal of the right ureteral calculi and several weeks, once the infection has resolved.
[2023-05-04] MEDS: HEPARIN SODIUM,PORCINE 5,000 UNIT/ML 1 ML VIAL SQ SCH ×4 (00:05→22:58)
[2023-05-04] MEDS: VANCOMYCIN 1,250 MG in SODIUM CHLORIDE 0.9% 250 ML IVPB SCH (00:21)
[2023-05-04] MEDS: SODIUM CHLORIDE 0.9% 1,000 ML IV SCH ×4 (00:54→22:58)
[2023-05-04] MEDS: HYDROmorphone 1 MG/ML 1 ML SYRINGE IVP PRN ×2 (01:35→06:05)
[2023-05-04 06:35] LABS: ALT 25 U/L (4-49); AST 20 U/L (17-59); African American GFR (CKD) 78 (>60 ml/min/1.73 sqM); Albumin 2.2 g/dL (3.5-5.0); Albumin/Globulin Ratio 0.8; Alkaline Phosphatase 86 U/L (38-126); Anion Gap 2 mmol/L; Blood Urea Nitrogen 15 mg/dL (9-20); Calcium 7.5 mg/dL (8.4-10.2); Carbon Dioxide 17 mmol/L (22-30); Chloride 117 mmol/L (98-107); Globulin 2.9 g/dL; Glucose 96 mg/dL (74-99); Non-African American GFR(CKD) 68 (>60 ml/min/1.73 sqM); Potassium 3.6 mmol/L (3.5-5.1); Sodium 136 mmol/L (137-145); Total Bilirubin 0.4 mg/dL (0.2-1.3); Total Protein 5.1 g/dL (6.3-8.2)
[2023-05-04 07:04] LABS: Anisocytosis Slight; HCT 28.2 % (39.0-53.0); HGB 8.7 gm/dL (13.0-17.5); Hypochromasia Marked; MCH 30.3 pg (25.0-35.0); MCHC 30.8 g/dL (31.0-37.0); MCV 98.5 fL (80.0-100.0); Macrocytosis Slight; Mean Platelet Volume 10.3; Poikilocytosis Moderate; RBC 2.86 m/uL (4.30-5.90); RDW 16.8 % (11.5-15.5); WBC 9.9 k/uL (3.8-10.6)
[2023-05-04] MEDS: PANTOPRAZOLE 40 MG/10 ML VIAL IV SCH (08:25)
[2023-05-04] MEDS: TAMSULOSIN 0.4 MG CAP.ER.24H PO SCH (08:25)
[2023-05-04] MEDS: amLODIPine 10 MG TAB PO SCH (08:26)
[2023-05-04] MEDS ORDERED: HYDROmorphone 1 MG/ML 1 ML SYRINGE IVP PRN (08:50)
[2023-05-04] MEDS: allopurinoL 100 MG TAB PO SCH (12:10)
[2023-05-04] MEDS: CYCLOBENZAPRINE 10 MG TAB PO SCH ×2 (12:11→20:07)
--- NOTE | 2023-05-04 12:13 | P.PN ---
Subjective Progress Note Date: 05/04/23 Principal diagnosis: UTI with Sepsis The patient presented with sepsis. CT scan shows right hydronephrosis due to obstructing right ureteral calculi, and urinalysis was consistent with infection. He underwent right ureteral stent placement on 05/01/[address] Clement. He continues to feel better. He denies dysuria and hematuria, and states that his right flank pain is much improved. Objective - Vital Signs Vital signs: Vital Signs Temp 97.3 F L 05/04/23 01:28 Pulse 96 05/04/23 01:28 Resp 18 05/04/23 01:28 BP 173/69 05/04/23 01:28 Pulse Ox 99 05/04/23 01:28 FiO2 Intake & Output 05/03/23 05/03/23 05/04/23 06:59 18:59 06:59 Intake Total 928 Output Total 300 Balance 628 Intake: Oral 928 Output: Urine 300 Other: Voiding Method Toilet Toilet # Voids 3 3 # Bowel Movements 2 - Constitutional General appearance: Present: average body habitus, cooperative, no acute d istress - Psychiatric Psychiatric: Present: A&O x's 3 - Labs CBC & Chem 7: 05/04/23 05:37 05/04/23 05:37 Labs: Abnormal Lab Results - Last 24 Hours (Table) 05/03/23 05/03/23 05/04/23 Range/Units 06:07 06:07 05:37 WBC 12.18 H (4.50-10.00) X 10*3/uL RBC 2.69 L (4.40-5.60) X 10*6/uL Hgb 8.0 L (13.0-17.0) g/dL Hct 26.8 L (39.6-50.0) % MCV 99.6 H (80.0-97.0) FL MCHC 29.9 L (32.0-37.0) g/dL RDW 18.8 H (11.5-14.5) % Sodium 136 L (137-145) mmol/L Chloride 116 H 117 H (96-109) mmol/L Carbon Dioxide 15.6 L 17 L (21.6-31.8) mmol/L Calcium 7.1 L 7.5 L (8.7-10.3) mg/dL Total Protein 4.6 L 5.1 L (6.2-8.2) g/dL Albumin 2.5 L 2.2 L (3.8-4.9) g/dL Albumin/Globulin Ratio 1.19 L (1.60-3.17) Ratio Microbiology - Last 24 Hours (Table) 05/01/23 13:03 Urine Culture - Final Urine,Voided Methicillin resist S. aureus 05/01/23 14:12 Blood Culture Gram Stain - Preliminary Blood Blood Culture - Preliminary Presumptive MRSA 05/01/23 14:33 Blood Culture Gram Stain - Preliminary Blood Blood Culture - Preliminary Presumptive MRSA Assessment and Plan (1) Hydronephrosis with renal and ureteral calculous obstruction Current Visit: Yes Status: Acute Code(s): N13.2 - HYDRONEPHROSIS WITH RENAL AND URETERAL CALCULOUS OBSTRUCTION SNOMED Code(s): 360371934 (2) Acute pyelonephritis Current Visit: Yes Status: Acute Code(s): N10 - ACUTE PYELONEPHRITIS SNOMED Code(s): 68016422 Plan: The ureteral obstruction has been successfully relieved. Urine and blood cu ltures show MRSA. The patient's overall condition is much improved. He will likely be discharged home tomorrow and antibiotics. Arrangements will be made for him to undergo ureteroscopic removal of the right ureteral calculus in 2-3 weeks.
--- NOTE | 2023-05-04 12:14 | P.PN ---
Subjective Progress Note Date: 05/04/23 Principal diagnosis: Nephrolithiasis with sepsis. The patient is here after having right-sided nephrolithiasis with sepsis now with stent placement. Discussed with urology and he should have his stones removed in the next several weeks. He is now afebrile tolerating diet he has had 1 unit PRBC secondary to chronic anemia of multifactorial issue. Crohn's is stable. We will DC Dilaudid today. Alert oriented Objective - Vital Signs Vital signs: Vital Signs Temp 97.5 F L 05/04/23 07:26 Pulse 57 L 05/04/23 08:00 Resp 18 05/04/23 08:00 BP 179/70 05/04/23 07:26 Pulse Ox 97 05/04/23 07:26 FiO2 Intake & Output 05/03/23 05/04/23 05/04/23 18:59 06:59 18:59 Intake Total 928 120 Output Total 300 300 Balance 628 -180 Intake: Oral 928 120 Output: Urine 300 300 Other: Voiding Method Toilet Toilet # Voids 3 0 # Bowel Movements 2 - Constitutional General appearance: Present: thin - EENT Eyes: Absent: abnormal pupil ENT: Present: hard of hearing - Respiratory Respiratory: bilateral: CTA - Cardiovascular Rhythm: regular Heart sounds: normal: S1, S2 Abnormal Heart Sounds: Absent: S3 Gallop - Gastrointestinal General gastrointestinal: Present: soft. Absent: tenderness - Neurologic Neurologic: Present: CNII-XII intact. Absent: focal deficits - Labs CBC & Chem 7: 05/04/23 05:37 05/04/23 05:37 Labs: Abnormal Lab Results - Last 24 Hours (Table) 05/04/23 05/04/23 Range/Units 05:37 05:37 RBC 2.86 L (4.30-5.90) m/uL Hgb 8.7 L (13.0-17.5) gm/dL Hct 28.2 L (39.0-53.0) % MCHC 30.8 L (31.0-37.0) g/dL RDW 16.8 H (11.5-15.5) % Plt Count 140 L D (150-450) k/uL Sodium 136 L (137-145) mmol/L Chloride 117 H (98-107) mmol/L Carbon Dioxide 17 L (22-30) mmol/L Calcium 7.5 L (8.4-10.2) mg/dL Total Protein 5.1 L (6.3-8.2) g/dL Albumin 2.2 L (3.5-5.0) g/dL Microbiology - Last 24 Hours (Table) 05/01/23 13:03 Urine Culture - Final Urine,Voided Methicillin resist S. aureus 05/01/23 14:12 Blood Culture Gram Stain - Preliminary Blood Blood Culture - Preliminary Presumptive MRSA 05/01/23 14:33 Blood Culture Gram Stain - Preliminary Blood Blood Culture - Preliminary Presumptive MRSA Assessment and Plan Assessment: Nephrolithiasis. Crohn's colitis. Sepsis. Hypertension. Plan: Continue current regimen of treatment with IV hydration. CBC is nominal. Check labs in the a.m. Appreciate consultants input.
[2023-05-04] MEDS: Buprenorphine Hcl/Naloxone Hcl [Suboxone 2 Mg-0.5 Mg Sl Film] 1 EACH F SUBLINGUAL SCH (14:25)
[2023-05-04] MEDS ORDERED: VANCOMYCIN TROUGH DUE 1 EACH MISC MISCELLANE ONE (15:00)
[2023-05-04] MEDS: VANCOMYCIN 1,500 MG in SODIUM CHLORIDE 0.9% 500 ML 500 ML IVPB SCH (16:51)
--- NOTE | 2023-05-04 17:51 | P.PN ---
Subjective Progress Note Date: 05/04/23 Principal diagnosis: Reason for follow-up with sepsis complicated UTI and bacteremia Patient is a 73-year-old male with a past medical history significant for atrial fibrillation reflux hypertension rheumatoid arthritis presenting to the hospital with a 1 day history of acute right flank pain radiating to the right groin area, patient was diagnosed with a complicated UTI in this patient who did have a 10 mm calculus in the proximal right ureter status post cystosco py and right sided double-J catheter placement. On today's evaluation that is 05/04/2023, the patient continues to be afebrile patient is breathing comfortably on room air, no need for supplemental oxygen, patient denies any chest pain or cough no nausea no vomiting right flank pain has improved patient did have chronic diarrhea with no change per patient Patient white count is normalized to 9.9, creatinine is 1.08, blood culture with MRSA Objective - Vital Signs Vital signs: Vital Signs Temp 97.5 F L 05/04/23 07:26 Pulse 57 L 05/04/23 07:26 Resp 18 05/04/23 07:26 BP 179/70 05/04/23 07:26 Pulse Ox 97 05/04/23 07:26 FiO2 Intake & Output 05/03/23 05/04/23 05/04/23 18:59 06:59 18:59 Intake Total 928 120 Output Total 300 300 Balance 628 -180 Intake: Oral 928 120 Output: Urine 300 300 Other: Voiding Method Toilet # Voids 3 0 # Bowel Movements 2 - Exam GENERAL DESCRIPTION: An elderly male lying in bed in no distress RESPIRATORY SYSTEM: Unlabored breathing , decreased breath sounds at bases HEART: S1 S2 regular rate and rhythm , ABDOMEN: Soft , no tenderness EXTREMITIES: No edema feet - Labs CBC & Chem 7: 05/04/23 05:37 05/04/23 05:37 Labs: Abnormal Lab Results - Last 24 Hours (Table) 05/03/23 05/04/23 05/04/23 Range/Units 06:07 05:37 05:37 RBC 2.86 L (4.30-5.90) m/uL Hgb 8.7 L (13.0-17.5) gm/dL Hct 28.2 L (39.0-53.0) % MCHC 30.8 L (31.0-37.0) g/dL RDW 16.8 H (11.5-15.5) % Plt Count 140 L D (150-450) k/uL Sodium 136 L (137-145) mmol/L Chloride 116 H 117 H (96-109) mmol/L Carbon Dioxide 15.6 L 17 L (21.6-31.8) mmol/L Calcium 7.1 L 7.5 L (8.7-10.3) mg/dL Total Protein 4.6 L 5.1 L (6.2-8.2) g/dL Albumin 2.5 L 2.2 L (3.8-4.9) g/dL Albumin/Globulin Ratio 1.19 L (1.60-3.17) Ratio Microbiology - Last 24 Hours (Table) 05/01/23 13:03 Urine Culture - Final Urine,Voided Methicillin resist S. aureus 05/01/23 14:12 Blood Culture Gram Stain - Preliminary Blood Blood Culture - Preliminary Presumptive MRSA 05/01/23 14:33 Blood Culture Gram Stain - Preliminary Blood Blood Culture - Preliminary Presumptive MRSA Assessment and Plan (1) Pyelonephritis Current Visit: Yes Status: Acute Code(s): N12 - TUBULO-INTERSTITIAL NEPHRITIS, NOT SPCF ACUTE OR CHRONIC SNOMED Code(s): 33577022 (2) Complicated UTI (urinary tract infection) Current Visit: Yes Status: Acute Code(s): N39.0 - URINARY TRACT INFECTION, SITE NOT SPECIFIED SNOMED Code(s): 31236364 (3) Sepsis Current Visit: Yes Status: Acute Code(s): A41.9 - SEPSIS, UNSPECIFIED ORGANISM SNOMED Code(s): 81402589 (4) MRSA bacteremia Current Visit: Yes Status: Acute Code(s): R78.81 - BACTEREMIA; B95.62 - METHICILLIN RESIS STAPH INFCT CAUSING DISEASES CLASSD [facility] SNOMED Code(s): 92130218960456178 Plan: 1patient presented to hospital with sepsis in this patient who did have a leukocytosis tachycardia elevated lactic acid cirrhosis complicated UTI/pyelonephritis in this patient who did have a right-sided renal stone causing right-sided hydronephrosis requiring cystoscopy and double-J catheter placement, the likely pathogen need to cover will be the enteric gram-negative 2-patient clinical course complicated by development of bacteremia with MRSA, urine culture also positive for MRSA, blood culture repeated and currently pending 3-patient to continue the vancomycin, patient will get a PICC line once he clear his bacteremia for outpatient IV antibiotic therapy Dictation was produced using [employer] dictation software. please excuse any grammatical, word or spelling errors. Time with Patient: Less than 30
[2023-05-05 05:40] LABS: African American GFR (CKD) >90 (>60 ml/min/1.73 sqM); Non-African American GFR(CKD) 82 (>60 ml/min/1.73 sqM)
[2023-05-05] MEDS: PANTOPRAZOLE 40 MG TABLET PO SCH (05:52)
[2023-05-05] MEDS: VANCOMYCIN 1,500 MG in SODIUM CHLORIDE 0.9% 500 ML 500 ML IVPB SCH (08:01)
[2023-05-05] MEDS: allopurinoL 100 MG TAB PO SCH (08:21)
[2023-05-05] MEDS: Buprenorphine Hcl/Naloxone Hcl [Suboxone 2 Mg-0.5 Mg Sl Film] 1 EACH F SUBLINGUAL SCH (08:21)
[2023-05-05] MEDS: HEPARIN SODIUM,PORCINE 5,000 UNIT/ML 1 ML VIAL SQ SCH ×3 (08:22→20:29)
[2023-05-05] MEDS: TAMSULOSIN 0.4 MG CAP.ER.24H PO SCH (08:22)
[2023-05-05] MEDS: amLODIPine 10 MG TAB PO SCH (08:22)
[2023-05-05] MEDS: CYCLOBENZAPRINE 10 MG TAB PO SCH ×2 (08:22→20:29)
--- NOTE | 2023-05-05 08:37 | P.DS ---
Providers Date of admission: 05/01/23 04:41 Attending physician: Minh Saldaña Consults: 05/01/23 04:39 Consult Physician Routine Consulting Provider: Edd Clement Consult Reason/Comments: septic kidney stone Do you want consulting provider notified?: Already Contacted 05/01/23 10:00 Consult Physician Routine Consulting Provider: Corry Mcclure Consult Reason/Comments: Pyelonephritis with sepsis Do you want consulting provider notified?: Yes Primary care physician: Minh Saldaña - Discharge Diagnosis(es) (1) Calculus of ureter Current Visit: Yes Status: Acute (2) Nausea and vomiting Current Visit: Yes Status: Acute (3) Pyelonephritis Current Visit: Yes Status: Acute (4) Sepsis Current Visit: Yes Status: Acute (5) Crohns disease Current Visit: No Status: Acute (6) Hypertension Current Visit: No Status: Acute (7) Atrial fibrillation Current Visit: Yes Status: Acute Hospital Course: This is a 73-year-old male who originally presented to the emergency room with complaints of severe abdominal pain. CT on admission showed a 10 mm right ureter stone with my mild right sided hydronephrosis. He had a stent placed by Dr. Pleitez in his right ureter which will be removed at a later date. Patient also with elevated lactic acid on admission and was found to be septic. Blood cultures were positive for MRSA. He will have a PICC line placed and be sent home with IV antibiotics at the recommendations from infectious disease. Patient reports pain is much improved and he is feeling a lot better. He may be discharged home today after PICC placement and if okay by infectious disease. Patient seen and evaluated by nurse practitioner, physician in agreement with plan Patient Condition at Discharge: Stable Plan - Discharge Summary New Discharge Prescriptions: Continue Orphenadrine Citrate [Orphenadrine Citrate ER] 100 mg PO BID Febuxostat [Uloric] 80 mg PO DAILY amLODIPine [Norvasc] 10 mg PO DAILY Omeprazole [PriLOSEC] 40 mg PO AC-BRKFST #90 cap Diphenox-Atrop 2.5-0.025 mg [Lomotil] 2 tab PO ACHS Tamsulosin [Flomax] 0.4 mg PO DAILY #30 cap Adalimumab [Humira(Cf) Pen] 40 mg SQ Q14D Buprenorphine HCl/Naloxone HCl [Suboxone 2 mg-0.5 mg Sl Film] 2 film SL DAILY predniSONE [Deltasone] 20 mg PO DAILY Discharge Medication List Orphenadrine Citrate [Orphenadrine Citrate ER] 100 mg PO BID 12/08/17 [History] Febuxostat [Uloric] 80 mg PO DAILY 05/05/18 [History] amLODIPine [Norvasc] 10 mg PO DAILY 10/18/20 [History] Adalimumab [Humira(Cf) Pen] 40 mg SQ Q14D 08/16/22 [History] Buprenorphine HCl/Naloxone HCl [Suboxone 2 mg-0.5 mg Sl Film] 2 film SL DAILY 08/16/22 [History] Omeprazole [PriLOSEC] 40 mg PO AC-BRKFST #90 cap 08/19/22 [Rx] Diphenox-Atrop 2.5-0.025 mg [Lomotil] 2 tab PO ACHS 12/24/22 [History] Tamsulosin [Flomax] 0.4 mg PO DAILY #30 cap 12/26/22 [Rx] predniSONE [Deltasone] 20 mg PO DAILY 05/01/23 [History] Follow up Appointment(s)/Referral(s): [facility], [NON-STAFF] - 1 Week Minh Saldaña MD [Primary Care Provider] - 1-2 days [facility] [NON-STAFF] - 1 Week [facility], [REFERRING] - 1 Week Corry Mcclure MD [STAFF PHYSICIAN] - 2 Weeks Rian Locke MD [STAFF PHYSICIAN] - 2 Weeks Discharge Disposition: HOME WITH HOME HEALTH SERVICES
[2023-05-05 09:47] LABS: Platelet Count 140 k/uL (150-450)
[2023-05-05 11:35] LABS: INR 0.9 (<1.2); Partial Thromboplastin Time 25.1 sec (22.0-30.0); Prothrombin Time 10.4 sec (10.0-12.5)
--- NOTE | 2023-05-05 14:38 | P.PN ---
Subjective Progress Note Date: 05/05/23 Principal diagnosis: Reason for follow-up with sepsis complicated UTI and bacteremia Patient is a 73-year-old male with a past medical history significant for atrial fibrillation reflux hypertension rheumatoid arthritis presenting to the hospital with a 1 day history of acute right flank pain radiating to the right groin area, patient was diagnosed with a complicated UTI in this patient who did have a 10 mm calculus in the proximal right ureter status post cystosco py and right sided double-J catheter placement. On today's evaluation that is 05/05/2023 the patient denies having any fever or any chills, the patient is breathing comfortably on room air, patient denies chest pain cough, the patient denies having any abdominal pain no nausea vomiting and no diarrhea, feeling better wants to go home Patient white count is normalized to 9.9 as of yesterday, creatinine is 0.92, blood culture with MRSA, repeat blood culture so far negative Objective - Vital Signs Vital signs: Vital Signs Temp 98.5 F 05/05/23 07:59 Pulse 70 05/05/23 07:59 Resp 14 05/05/23 07:59 BP 186/74 05/05/23 07:59 Pulse Ox 97 05/05/23 07:59 FiO2 Intake & Output 05/04/23 05/05/23 05/05/23 18:59 06:59 18:59 Intake Total 358 Output Total 600 Balance -242 Weight 65.771 kg Intake: Oral 358 Output: Urine 600 Other: Voiding Method Toilet Toilet # Voids 1 4 - Exam GENERAL DESCRIPTION: An elderly male lying in bed in no distress RESPIRATORY SYSTEM: Unlabored breathing , decreased breath sounds at bases HEART: S1 S2 regular rate and rhythm , ABDOMEN: Soft , no tenderness EXTREMITIES: No edema feet - Labs CBC & Chem 7: 05/04/23 05:37 05/05/23 05:09 Labs: Microbiology - Last 24 Hours (Table) 05/03/23 16:13 Blood Culture - Preliminary Blood 05/01/23 14:33 Blood Culture Gram Stain - Final Blood Blood Culture - Final Methicillin resist S. aureus 05/01/23 14:12 Blood Culture Gram Stain - Final Blood Blood Culture - Final Methicillin resist S. aureus 05/01/23 13:03 Urine Culture - Final Urine,Voided Methicillin resist S. aureus Assessment and Plan (1) Pyelonephritis Current Visit: Yes Status: Acute Code(s): N12 - TUBULO-INTERSTITIAL NEPHRITIS, NOT SPCF ACUTE OR CHRONIC SNOMED Code(s): 90060724 (2) Complicated UTI (urinary tract infection) Current Visit: Yes Status: Acute Code(s): N39.0 - URINARY TRACT INFECTION, SITE NOT SPECIFIED SNOMED Code(s): 90240804 (3) Sepsis Current Visit: Yes Status: Acute Code(s): A41.9 - SEPSIS, UNSPECIFIED ORGANISM SNOMED Code(s): 35282221 (4) MRSA bacteremia Current Visit: Yes Status: Acute Code(s): R78.81 - BACTEREMIA; B95.62 - METHICILLIN RESIS STAPH INFCT CAUSING DISEASES CLASSD [facility] SNOMED Code(s): 90051798150836118 Plan: 1patient presented to hospital with sepsis in this patient who did have a leukocytosis tachycardia elevated lactic acid cirrhosis complicated UTI/pyelonephritis in this patient who did have a right-sided renal stone causing right-sided hydronephrosis requiring cystoscopy and double-J catheter placement, the likely pathogen need to cover will be the enteric gram-negative 2-patient with MRSA bacteremia likely source is urinary, urine culture also positive for MRSA, blood culture repeated and so far negative 3-patient has choose to go to infusion clinic for outpatient IV antibiotic therapy, hence antibiotic has been switched over to daptomycin for a daily dose to finish his 2-week course of therapy prescription provided to the block and case maker, PICC line has been ordered by admitting team this morning Dictation was produced using [employer] dictation software. please excuse any grammatical, word or spelling errors. Time with Patient: Less than 30
[2023-05-05] MEDS: SODIUM CHLORIDE 0.9% 1,000 ML IV SCH ×2 (18:06→18:10)
[2023-05-05] MEDS: HYDROmorphone 0.5 MG/0.5 ML SYRINGE IVP PRN (22:30)
[2023-05-06] MEDS: SODIUM CHLORIDE 0.9% 1,000 ML IV SCH ×2 (00:20→05:49)
[2023-05-06] MEDS: HYDROmorphone 0.5 MG/0.5 ML SYRINGE IVP PRN ×2 (02:37→06:01)
[2023-05-06] MEDS: PANTOPRAZOLE 40 MG TABLET PO SCH (05:49)
[2023-05-06 05:59] LABS: African American GFR (CKD) 72 (>60 ml/min/1.73 sqM); Non-African American GFR(CKD) 63 (>60 ml/min/1.73 sqM)
[2023-05-06] MEDS ORDERED: LIDOCAINE 1% INJ 10MG/ML (10 ML MDV) SQ ONE (07:39)
--- NOTE | 2023-05-06 07:57 | P.OP ---
Date of Procedure: 05/06/23 Description of Procedure: Preoperative Diagnosis: Need for long-term IV antibiotic access. Postoperative Diagnosis: Same. Procedure(s) Performed: Ultrasound-guided cannulation left basilic vein. Insertion of peripherally inserted central catheter under fluoroscopic guidance. Anesthesia: local 1% lidocaine toby Surgeon: Korey Estimated Blood Loss (ml): 5 IV fluids (ml): 0 Urine output (ml): 0 Pathology: none sent Condition: stable Disposition: no change Indications for Procedure: Patient requires long-term IV antibiotics as an outpatient patient is offered a PICC line to allow for intravenous administration of antibiotics. Description of Procedure: Patient was brought to the special procedure suite. The left upper extremity sterilely prepped and draped in usual manner. Ultrasound was utilized to identify the basilic vein which was normally compressible free of visible thrombus. Permenant image was stored. 1% Xylocaine was utilized for local anesthesia tissues overlying the vein. Through this anesthetized area and with the aid of ultrasound a micropuncture needle was utilized to cannulate the vein. Once cannulated, Softip guidewire was advanced into the vein. The needle was withdrawn and a micropuncture sheath and dilator advanced over the guidewire. The guidewire was withdrawn and exchanged for the PICC guidewire and measured 45 cm to the cavoatrial junction. The catheter was cut to size and advanced into the cavoatrial junction without resistance. The sheath was peeled away. Blood was easily withdrawn through the catheter and the catheter was then flushed with heparinized saline solution and secured to the skin. Patient tolerated procedure well and was returned to their room in satisfactory and stable condition.
--- NOTE | 2023-05-06 08:32 | IR ---
EXAMINATION TYPE: IR cvc insert >=5 years DATE OF EXAM: 05/06/2023 COMPARISON: NONE HISTORY: Fluoroscopy time. Fluoroscopy was provided to the referring clinician.
[2023-05-06] MEDS: HEPARIN SODIUM,PORCINE 5,000 UNIT/ML 1 ML VIAL SQ SCH (08:45)
[2023-05-06] MEDS: allopurinoL 100 MG TAB PO SCH (08:45)
[2023-05-06] MEDS: amLODIPine 10 MG TAB PO SCH (08:45)
[2023-05-06] MEDS: TAMSULOSIN 0.4 MG CAP.ER.24H PO SCH (08:46)
[2023-05-06] MEDS: Buprenorphine Hcl/Naloxone Hcl [Suboxone 2 Mg-0.5 Mg Sl Film] 1 EACH F SUBLINGUAL SCH (08:46)
[2023-05-06] MEDS: CYCLOBENZAPRINE 10 MG TAB PO SCH (08:46)
[2023-05-06 09:18] VITALS: BP 160/62; PULSE 53; RESP 14; TEMP 97.7
--- NOTE | 2023-05-06 09:22 | P.PN ---
Subjective Progress Note Date: 05/06/23 Principal diagnosis: UTI with Sepsis The patient presented with sepsis. CT scan shows right hydronephrosis due to obstructing right ureteral calculi, and urinalysis was consistent with infection. He underwent right ureteral stent placement on 05/01/[address] Clement. He continues to feel better. He denies dysuria and hematuria, and states that his right flank pain has essentially resolved. Objective - Vital Signs Vital signs: Vital Signs Temp 97.7 F 05/06/23 08:00 Pulse 53 L 05/06/23 08:00 Resp 14 05/06/23 08:00 BP 160/62 05/06/23 08:00 Pulse Ox 97 05/06/23 08:00 FiO2 Intake & Output 05/05/23 05/06/23 05/06/23 18:59 06:59 18:59 Intake Total 1030 Balance 1030 Intake: Oral 1030 Other: Voiding Method Toilet Toilet # Voids 2 3 - Constitutional General appearance: Present: average body habitus, cooperative, no acute distress - Psychiatric Psychiatric: Present: A&O x's 3 - Labs CBC & Chem 7: 05/04/23 05:37 05/06/23 05:41 Labs: Abnormal Lab Results - Last 24 Hours (Table) 05/04/23 Range/Units 05:37 Plt Count 140 L D (150-450) k/uL Microbiology - Last 24 Hours (Table) 05/03/23 16:13 Blood Culture - Preliminary Blood Assessment and Plan (1) Hydronephrosis with renal and ureteral calculous obstruction Current Visit: Yes Status: Acute Code(s): N13.2 - HYDRONEPHROSIS WITH RENAL AND URETERAL CALCULOUS OBSTRUCTION SNOMED Code(s): 975921423 (2) Acute pyelonephritis Current Visit: Yes Status: Acute Code(s): N10 - ACUTE PYELONEPHRITIS SNOMED Code(s): 92336405 Plan: The ureteral obstruction has been successfully relieved. Urine and blood cultures show MRSA. The patient's overall condition is much improved. He will be discharged home today on antibiotics. Arrangements have been made for him to undergo ureteroscopic removal of the right ureteral calculus on 05/19/2023. He should remain on antibiotics until that procedure has been completed.
--- NOTE | 2023-05-06 10:55 | P.PN ---
Subjective Progress Note Date: 05/06/23 Principal diagnosis: Reason for follow-up with sepsis complicated UTI and bacteremia Patient is a 73-year-old male with a past medical history significant for atrial fibrillation reflux hypertension rheumatoid arthritis presenting to the hospital with a 1 day history of acute right flank pain radiating to the right groin area, patient was diagnosed with a complicated UTI in this patient who did have a 10 mm calculus in the proximal right ureter status post cystosco py and right sided double-J catheter placement. On today's evaluation that is 05/06/2023, the patient remains to be afebrile, the patient is breathing comfortably on room air, the patient denies any chest pain shortness of breath or cough patient denies having any nausea no vomiting did not have any abdominal pain no diarrhea has been reported Patient white count is normalized to 9.9 as of 05/04/2023, creatinine is 1.16, blood culture with MRSA, repeat blood culture so far negative Objective - Vital Signs Vital signs: Vital Signs Temp 97.6 F 05/06/23 00:54 Pulse 66 05/06/23 00:54 Resp 16 05/06/23 00:54 BP 156/71 05/06/23 00:54 Pulse Ox 98 05/06/23 00:54 FiO2 Intake & Output 05/05/23 05/06/23 05/06/23 18:59 06:59 18:59 Intake Total 1030 Balance 1030 Intake: Oral 1030 Other: Voiding Method Toilet Toilet # Voids 2 3 - Exam GENERAL DESCRIPTION: An elderly male lying in bed in no distress RESPIRATORY SYSTEM: Unlabored breathing , decreased breath sounds at bases HEART: S1 S2 regular rate and rhythm , ABDOMEN: Soft , no tenderness EXTREMITIES: No edema feet - Labs CBC & Chem 7: 05/04/23 05:37 05/06/23 05:41 Labs: Abnormal Lab Results - Last 24 Hours (Table) 05/04/23 Range/Units 05:37 Plt Count 140 L D (150-450) k/uL Microbiology - Last 24 Hours (Table) 05/03/23 16:13 Blood Culture - Preliminary Blood Assessment and Plan (1) Pyelonephritis Current Visit: Yes Status: Acute Code(s): N12 - TUBULO-INTERSTITIAL NEPHRITIS, NOT SPCF ACUTE OR CHRONIC SNOMED Code(s): 92667285 (2) Complicated UTI (urinary tract infection) Current Visit: Yes Status: Acute Code(s): N39.0 - URINARY TRACT INFECTION, SITE NOT SPECIFIED SNOMED Code(s): 86084932 (3) Sepsis Current Visit: Yes Status: Acute Code(s): A41.9 - SEPSIS, UNSPECIFIED ORGANISM SNOMED Code(s): 51607138 (4) MRSA bacteremia Current Visit: Yes Status: Acute Code(s): R78.81 - BACTEREMIA; B95.62 - METHICILLIN RESIS STAPH INFCT CAUSING DISEASES CLASSD ELSWHR SNOMED Code(s): 53496344110590508 Plan: 1patient presented to hospital with sepsis in this patient who did have a leukocytosis tachycardia elevated lactic acid cirrhosis complicated UTI/pyelonephritis in this patient who did have a right-sided renal stone causing right-sided hydronephrosis requiring cystoscopy and double-J catheter placement, the likely pathogen need to cover will be the enteric gram-negative 2-patient with MRSA bacteremia likely source is urinary, urine culture also positive for MRSA, blood culture repeated and so far negative 3-patient did have a PICC line placement this morning he will continue with the daptomycin until May 20 as the patient to have to go for removal of the stent on May 19 as per reported by the urologist Dictation was produced using Minded dictation software. please excuse any grammatical, word or spelling errors. Time with Patient: Less than 30
== END 2023-05-06 10:48 | disposition home or self-care (01) | DRG 854 ==
LOC: EC 00:31 → 4SSUR 04:41 → 6NMEDSUR 11:04
PROVIDERS: ADMIT Family Medicine; ATTEND Family Medicine
PROC: 0T9380Z Drainage of Right Kidney Pelvis with Drainage Device, Via Natural or Artificial Opening Endoscopic (ICD-10-PCS; principal; 2023-05-01 10:00)
PROC: 30233N1 Transfusion of Nonautologous Red Blood Cells into Peripheral Vein, Percutaneous Approach (ICD-10-PCS; 2023-05-02)
PROC: 02HV33Z Insertion of Infusion Device into Superior Vena Cava, Percutaneous Approach (ICD-10-PCS; 2023-05-06)
DX: A41.02 Sepsis due to Methicillin resistant Staphylococcus aureus (principal); F11.20 Opioid dependence, uncomplicated; N17.9 Acute kidney failure, unspecified; K50.112 Crohn's disease of large intestine with intestinal obstruction; I47.10 Supraventricular tachycardia, unspecified; N13.6 Pyonephrosis; I48.91 Unspecified atrial fibrillation; M06.9 Rheumatoid arthritis, unspecified; I10 Essential (primary) hypertension; E86.0 Dehydration; M10.9 Gout, unspecified; D64.89 Other specified anemias; G89.29 Other chronic pain; B95.62 Methicillin resistant Staphylococcus aureus infection as the cause of diseases classified elsewhere; K21.9 Gastro-esophageal reflux disease without esophagitis; Z94.89 Other transplanted organ and tissue status; Z87.442 Personal history of urinary calculi; Z87.11 Personal history of peptic ulcer disease; Z90.3 Acquired absence of stomach [part of]; Z79.899 Other long term (current) drug therapy; Z91.041 Radiographic dye allergy status
CPT/HCPCS: 36410; 36415; 36573; 71045; 74176; 76937; 80048; 80053; 80202; 81001; 82150; 82565; 83605; 83690; 85025; 85027; 85610; 85730; 86850; 86900; 86901; 86920; 87040; 87077; 87086; 87186; 93005; 96361; 96365; 96366; 96368; 96375; 96376; 99285

== ENCOUNTER → 2023-05-13 | Outpatient (CLI) | payer BC, MEDICARE ==
[2023-05-13 21:21] LABS: Appearance,Urine Clear (Clear); Bilirubin,Urine Negative (Negative); Blood,Urine Moderate (Negative); Color,Urine Yellow (Yellow); Ketones,Urine Negative (Negative); Nitrite,Urine Negative (Negative); PH, Urine 5.5; Specific Gravity,Urine 1.015 (1.001-1.030); Urobilinogen,Urine 0.2 E.U./DL
[2023-05-13 21:35] LABS: Bacteria,Urine None Seen (None Seen)
== END | disposition home or self-care (01) ==
LOC: LABWHC1 11:56
PROVIDERS: ATTEND Urology
DX: Z01.812 Encounter for preprocedural laboratory examination (principal); N20.1 Calculus of ureter
CPT/HCPCS: 81001; 87086

== ENCOUNTER 2023-05-19 11:50 | Day surgery (SDC) | payer BC, MEDICARE ==
--- NOTE | 2023-05-14 09:15 | P.GSHP ---
History of Present Illness H&P Date: 05/14/23 Chief Complaint: Right ureteral calculi The patient is a 73-year-old white male with a history of urolithiasis. He has a history of Crohn's disease, for which she has undergone bowel resection. He is also undergone partial gastrectomy for peptic ulcer disease. Undoubtedly this is the cause of his recurrent urolithiasis. He presented last year with left flank pain radiating to the abdomen. He also experienced associated nausea. He was found to have an obstructing left proximal ureteral calculus as well as left renal calculi. He underwent initial left ureteral stent insertion, and subsequently ureteroscopic removal of the left proximal ureteral calculus and renal calculi. He recently presented back with sepsis of urinary origin, complicated by obstructing right ureteral calculi. He underwent right ureteral stent insertion and has been treated for a MRSA UTI. - Genitourinary (Male) Genitourinary: Reports flank pain, Reports kidney stones Past Medical History Past Medical History: Atrial Fibrillation, GERD/Reflux, Hypertension, Rheumatoid Arthritis (RA), Skin Disorder, Supraventricular Tachycardia (SVT) Additional Past Medical History / Comment(s): hx CROHN'S (takes tresa), IBS, chronic diarrhea, migraines-, hx ulcers, anemia, gout, kidney stones, psoriasis, bilateral tinnitis., pinched sciatic nerve, C-Diff 2017, neuropathy History of Any Multi-Drug Resistant Organisms: MRSA Date of last positivie culture/infection: 05/01/23 MDRO Source:: Blood Past Surgical History: Bowel Resection, Cardiac Ablation, Cholecystectomy, Heart Catheterization, Hernia Repair, Orthopedic Surgery, Tonsillectomy Additional Past Surgical History / Comment(s): 1/3 of stomach removed (partial gastrectomy), ulcers, bowel resections, fecal transplant 2017, bilateral knee arthroscopic surgery, EGD/colonoscopies, R inguinal hernia repair, bilat cataract removal, Past Anesthesia/Blood Transfusion Reactions: Blood Transfusion Reaction, Motion Sickness Additional Past Anesthesia/Blood Transfusion Reaction / Comment(s): BLOOD TRANSFUSION- BROKE OUT IN [place] age 21 Past Psychological History: Anxiety Smoking Status: Never smoker Past Alcohol Use History: None Reported Past Drug Use History: None Reported - Past Family History Mother Family Medical History: Pulmonary Embolus Additional Family Medical History / Comment(s): AGE 73-[place], STROKE DURING CARATID PROCEDURE Medications and Allergies Home Medications Medication Instructions Recorded Confirmed Type Orphenadrine Citrate [Orphenadrine 100 mg PO BID 12/08/17 05/01/23 History Citrate ER] Febuxostat [Uloric] 80 mg PO DAILY 05/05/18 05/01/23 History amLODIPine [Norvasc] 10 mg PO DAILY 10/18/20 05/01/23 History Adalimumab [Humira(Cf) Pen] 40 mg SQ Q14D 08/16/22 05/01/23 History Buprenorphine HCl/Naloxone HCl 2 film SL DAILY 08/16/22 05/01/23 History [Suboxone 2 mg-0.5 mg Sl Film] Omeprazole [PriLOSEC] 40 mg PO AC-BRKFST #90 cap 08/19/22 05/01/23 Rx Diphenox-Atrop 2.5-0.025 mg 2 tab PO ACHS 12/24/22 05/01/23 History [Lomotil] Tamsulosin [Flomax] 0.4 mg PO DAILY #30 cap 12/26/22 05/01/23 Rx predniSONE [Deltasone] 20 mg PO DAILY 05/01/23 05/01/23 History DAPTOmycin [Cubicin] 400 mg IV DAILY #12 each 05/05/23 Rx Allergies Allergy/AdvReac Type Severity Reaction Status Date / Time Iodinated Contrast Media Allergy Anaphylaxis Verified 05/01/23 00:40 [Iodinated Contrast Media - IV Dye] Surgical - Exam - General well developed, well nourished, no distress - Respiratory normal respiratory effort (Martine) - Abdomen Abdomen: soft, non tender, no guarding, no rigid, no rebound - Genitourinary normal penis with no external lesions, testicles non-tender - Psychiatric oriented to time, oriented to person, oriented to place, speech is normal, memory intact Results - Imaging CT scan - abdomen: report reviewed, image reviewed Assessment and Plan (1) Calculus of ureter Status: Acute Code(s): N20.1 - CALCULUS OF URETER SNOMED Code(s): 07243787 (2) Kidney stone Status: Acute Code(s): N20.0 - CALCULUS OF KIDNEY SNOMED Code(s): 84050152 Plan: Cystoscopy, right ureteral stent removal, right ureteroscopy with Holmium laser lithotripsy and stone basketing. The patient has at least 1 and possibly 2 ureteral calculi, in addition to several very small lower pole calculi. The patient is aware of potential risks, which include anesthesia, bleeding, infection, and ureteral injury. He is also aware of the possibility that some calculi, particularly those in the lower pole, may not be able to be removed.
[~2023-05-19 11:50] MED LIST changes: +LIDOCAINE 1% (10MG/ML) FOR IV START INTRADERMA PRN; +ONDANSETRON 4 MG/2 ML VIAL IVP ONE; +VANCOMYCIN 1,000 MG in SODIUM CHLORIDE 0.9% 250 ML IVPB PRN; +droPERidol 5 MG/2 ML VIAL IVP ONE
--- NOTE | 2023-05-19 12:24 | XR ---
EXAMINATION TYPE: XR KUB DATE OF EXAM: 05/19/2023 Comparison: 01/06/2023 Clinical History: 73-year-old male N20.1 right ureteral and renal calculi Findings: Interval removal of left ureteral stent and placement of a right ureteral stent. Possible left renal calcification measuring 1.0 cm at the upper pole. Possible right lower pole renal calculus measuring 9 mm. Cholecystectomy clips with scattered surgical material mid abdomen and right side of the abdome n. Staple line right lower quadrant related to prior bowel surgery. Nonobstructive bowel gas pattern. Vascular calcifications in the pelvis. Impression: Right ureteral stent now present. Removal of previous left stent. Suspected renal stone on either juan e measuring up to 1.0 cm. Previous bowel surgery and cholecystectomy.
[2023-05-19] MEDS ORDERED: DEXAMETHASONE SOD PHOSPHATE 4 MG/ML 1 ML VIAL IVP ONE (13:06)
[2023-05-19] MEDS ORDERED: HYDROCORTISONE SUCCINATE 100 MG/2 ML VIAL IVP ONE (13:06)
[2023-05-19 13:35] VITALS: BMI 17.8
[2023-05-19] MEDS ORDERED: SUCCINYLCHOLINE CHLORIDE 200 MG/10 ML VIAL IV ONE (13:42)
[2023-05-19] MEDS ORDERED: GLYCOPYRROLATE 0.2 MG/ML 2 ML VIAL ONE (13:42)
[2023-05-19] MEDS ORDERED: ePHEDrine 50 MG/ML 1 ML VIAL ONE (13:42)
[2023-05-19] MEDS ORDERED: PROPOFOL 10 MG/ML 20 ML VIAL IV ONE (13:42)
[2023-05-19] MEDS ORDERED: ROCURONIUM 10 MG/ML (5 ML VIAL) IV ONE (13:42)
[2023-05-19] MEDS ORDERED: fentaNYL (PF) 50 MCG/ML 2 ML AMP ONE (13:42)
[2023-05-19] MEDS ORDERED: NEOSTIGMINE 1 MG/ML 10 ML VIAL ONE (13:42)
[2023-05-19] MEDS ORDERED: LIDOCAINE 1% INJ 10MG/ML (20 ML MDV) ONE (13:42)
--- NOTE | 2023-05-19 15:30 | P.OP ---
Date of Procedure: 05/19/23 Preoperative Diagnosis: Right ureteral calculus, right renal calculi Postoperative Diagnosis: Same Procedure(s) Performed: Cystoscopy, right ureteral stent removal, right ureteroscopy with Holmium laser lithotripsy and stone basketing Anesthesia: NELLA Surgeon: Rian Locke Estimated Blood Loss (ml): 5 IV fluids (ml): 200 Pathology: none sent Condition: stable Disposition: PACU Indications for Procedure: The patient is a 73-year-old white male with a history of urolithiasis. He has a history of Crohn's disease, for which she has undergone bowel resection. He is also undergone partial gastrectomy for peptic ulcer disease. Undoubtedly this is the cause of his recurrent urolithiasis. He presented last year with left flank pain radiating to the abdomen. He also experienced associated nausea. He was found to have an obstructing left proximal ureteral calculus as well as left renal calculi. He underwent initial left ureteral stent insertion, and subsequently ureteroscopic removal of the left proximal ureteral calculus and renal calculi. He recently presented back with sepsis of urinary origin, complicated by obstructing right ureteral calculi. He underwent right ureteral stent insertion and is being treated for a MRSA UTI. Operative Findings: Right distal ureteral calculus, successfully removed via stone basketing. Multiple right renal calculi, some removed via stone basketing and others laser lithotripsy followed by stone basketing. Description of Procedure: The patient was taken to the operating room and placed in the dorsolithotomy position, with legs supported in Ronni stirrups. The external genitalia was prepped and draped sterilely. The 30 lens was used to introduce the 21-Danish Newell cystoscopic sheath through the urethra and into the bladder under direct vision. The prostatic urethra showed evidence of mild lateral lobe enlargement. The bladder was examined in its entirety. The distal end of the right ureteral stent was grasped with grasping forceps and removed along with the cystoscope. The Newell semirigid ureteroscope was advanced into the bladder under direct vision. The right ureteral orifice was cannulated, and the ureteroscope was slowly advanced under direct vision. A calculus was identified within the right distal ureter measuring 3 to 4 mm in size. This was removed via stone basketing. The ureteroscope was advanced up to the right proximal ureter. No additional ureteral calculi were seen. A 0.035 inch Glidewire was passed through the ureteroscope and up to the right renal pelvis, where it coiled. The ureteroscope was removed, and an 11/13 Danish ureteral access catheter was passed over the wire, up to the proximal ureter. The Biomeasure flexible ureteroscope was passed through the ureteral access catheter sheath and up to the right renal pelvis. Each calyx was examined. Multiple calculi were seen. The smaller of these were removed using a 1.9 Danish nitinol basket. 3 calculi were identified which appeared too large for stone basketing, 1 in an upper pole calyx (approximately 6 mm), 1 in a midpole calyx (approximately 6 mm), and 1 and a lower pole calyx (approximately 10 mm). These calculi were fragmented using the 272 micron Holmium laser probe, and calculus fragments were removed using the nitinol basket. Once this was completed, there were no residual calculus fragments exceeding 1 to 2 mm in size, and none seen on fluoroscopy. The ureteroscope was slowly withdrawn under direct vision. Pullout ureteroscopy showed no evidence of ureteral trauma. The patient tolerated the procedure well and was taken to the recovery room in stable condition. [facility] [place] [place] Report: Procedure Acuity: Elective Stone Size and Location: 1 cm, right lower pole Ureteral Dilation: No Ureteral Access Sheath Used: No Stone Sent for Analysis: No All Stones/Fragments Were Removed with a Basket: No Complications: No Preoperative Antibiotics Given: Yes Stent Placed: No Discharge Medications: None
[2023-05-19] MEDS: HYDROmorphone 0.5 MG/0.5 ML SYRINGE IVP PRN ×3 (15:34→15:55)
[2023-05-19 15:48] VITALS: TEMP 98.2
[2023-05-19 16:52] VITALS: RESP 14
[2023-05-19 17:22] VITALS: BP 171/80; PULSE 80
--- NOTE | 2023-05-19 19:45 | FL ---
EXAMINATION TYPE: FL guidance operating room DATE OF EXAM: 05/19/2023 Comparison: None Clinical History: 73-year-old male Cysto for right kidney stones Findings: FT: 10.1 SECONDS DAP: 0.7321 Gycm2 6 images submitted. Impression: Fluoroscopy for urology procedure as above.
== END 2023-05-19 17:16 | disposition home or self-care (01) ==
LOC: OR 11:50
PROVIDERS: ATTEND Urology
DX: N20.2 Calculus of kidney with calculus of ureter (principal); K50.90 Crohn's disease, unspecified, without complications; K27.9 Peptic ulcer, site unspecified, unspecified as acute or chronic, without hemorrhage or perforation; I48.91 Unspecified atrial fibrillation; K21.9 Gastro-esophageal reflux disease without esophagitis; I10 Essential (primary) hypertension; M06.9 Rheumatoid arthritis, unspecified; I47.10 Supraventricular tachycardia, unspecified; G43.909 Migraine, unspecified, not intractable, without status migrainosus; D64.9 Anemia, unspecified; M10.9 Gout, unspecified; G62.9 Polyneuropathy, unspecified; F41.9 Anxiety disorder, unspecified; Z87.442 Personal history of urinary calculi; Z90.49 Acquired absence of other specified parts of digestive tract; Z98.890 Other specified postprocedural states; Z82.3 Family history of stroke; Z79.52 Long term (current) use of systemic steroids; Z79.899 Other long term (current) drug therapy; Z91.041 Radiographic dye allergy status
CPT/HCPCS: 74018; 52353; C1769; J3370; J0330; J1100; J2710; J1720; J2001; J3010; J2704; J1170

== ENCOUNTER 2023-07-29 13:20 | Inpatient (IN) | payer BC, MEDICARE ==
--- NOTE | 2023-07-29 14:00 | ED ---
General Adult HPI - General Chief complaint: Abdominal Pain Stated complaint: abd pain Time Seen by Provider: 07/29/23 13:28 Source: patient, RN notes reviewed Mode of arrival: ambulatory Limitations: no limitations - History of Present Illness Initial comments: Patient is a 73-year-old male presenting to the emergency department with concerns for flank pain. Onset of symptoms was close to a week ago. Discomfort started right posterior flank however now is more right anterior flank. Patient does have urinary urgency and some dysuria. No fevers. Symptoms are similar to previous kidney stones. - Related Data Home Medications Medication Instructions Recorded Confirmed Orphenadrine Citrate [Orphenadrine 100 mg PO BID 12/08/17 05/19/23 Citrate ER] Febuxostat [Uloric] 80 mg PO DAILY 05/05/18 05/19/23 amLODIPine [Norvasc] 10 mg PO DAILY 10/18/20 05/19/23 Adalimumab [Humira(Cf) Pen] 40 mg SQ Q14D 08/16/22 05/19/23 Buprenorphine HCl/Naloxone HCl 2 film SL DAILY 08/16/22 05/19/23 [Suboxone 2 mg-0.5 mg Sl Film] Diphenox-Atrop 2.5-0.025 mg 2 tab PO ACHS 12/24/22 05/19/23 [Lomotil] Omeprazole [PriLOSEC] 20 mg PO AC-BRKFST 05/19/23 05/19/23 Previous Rx's Medication Instructions Recorded DAPTOmycin [Cubicin] 400 mg IV DAILY #12 each 05/05/23 Allergies Allergy/AdvReac Type Severity Reaction Status Date / Time Iodinated Contrast Media Allergy Anaphylaxis Verified 07/29/23 16:04 [Iodinated Contrast Media - IV Dye] Review of Systems ROS Statement: Those systems with pertinent positive or pertinent negative responses have been documented in the HPI. ROS Other: All systems not noted in ROS Statement are negative. Constitutional: Denies: fever Eyes: Denies: eye pain ENT: Denies: ear pain Cardiovascular: Denies: chest pain Gastrointestinal: Reports: as per HPI, abdominal pain, nausea. Denies: vomiting Musculoskeletal: Reports: as per HPI Past Medical History Past Medical History: Atrial Fibrillation, Blood Disorder, Eye Disorder, GERD/ Reflux, GI Bleed, Hearing Disorder / Deafness, Hyperlipidemia, Hypertension, Musculoskeletal Disorder, Pneumonia, Rheumatoid Arthritis (RA), Skin Disorder, Supraventricular Tachycardia (SVT) Additional Past Medical History / Comment(s): hx CROHN'S (takes tresa), IBS, chronic diarrhea, migraines-, hx ulcers, anemia, gout, kidney stones, psoriasis, bilateral tinnitis., pinched sciatic nerve, C-Diff 2017, neuropathy, COMPLICATED UTI PYELONEPHRITIS, HEART RATE NORMALLY 50'S History of Any Multi-Drug Resistant Organisms: C-DIFF, MRSA Date of last positivie culture/infection: stool MDRO Source:: 2016 Past Surgical History: Ablation, Bowel Resection, Cardiac Ablation, Cho lecystectomy, Heart Catheterization, Hernia Repair, Joint Replacement, Orthopedic Surgery, Tonsillectomy Additional Past Surgical History / Comment(s): 13 of stomach removed (partial gastrectomy), ulcers, bowel resections, fecal transplant 2016, bilateral knee arthroscopic surgery, EGD/colonoscopies, R inguinal hernia repair, bilat cataract removal, TOTAL LEFT KNEE. MULTIPLE CYSTOS, PICC 05/11 Past Anesthesia/Blood Transfusion Reactions: Blood Transfusion Reaction, Motion Sickness Additional Past Anesthesia/Blood Transfusion Reaction / Comment(s): BLOOD TRANSFUSION- BROKE OUT IN HIVES age 21 Past Psychological History: Anxiety Smoking Status: Never smoker Past Alcohol Use History: None Reported, Occasional Past Drug Use History: None Reported - Past Family History Mother Family Medical History: Pulmonary Embolus Additional Family Medical History / Comment(s): AGE 73-[place], STROKE DURING CARATID PROCEDURE General Exam Limitations: no limitations General appearance: alert, in no apparent distress Head exam: Present: normocephalic Eye exam: Present: normal appearance Neck exam: Present: normal inspection Respiratory exam: Present: normal lung sounds bilaterally Cardiovascular Exam: Present: regular rate, normal rhythm Expanded Peripheral pulses: 2+: Posterior Tibialis (R), Posterior Tibialis (L) GI/Abdominal exam: Present: soft, tenderness (Mild diffuse tenderness) Extremities exam: Present: normal inspection Neurological exam: Present: alert Psychiatric exam: Present: normal affect, normal mood Skin exam: Present: normal color Course Vital Signs 07/29/23 13:22 Temperature 98.5 F Pulse Rate 78 Respiratory 22 Rate Blood Pressure 170/63 O2 Sat by Pulse 97 Oximetry Medical Decision Making - Medical Decision Making Was pt. sent in by a medical professional or institution (, PA, OIL WELL SERVICES DISPATCHER, urgent care, hospital, or prison...) When possible be specific @ -[No] Did you speak to anyone other than the patient for history (EMS, parent, family, police, friend...)? What history was obtained from this source @ -[No] Did you review nursing and triage notes (agree or disagree)? Why? @ -[I reviewed and agree with nursing and triage notes] Were old charts reviewed (outside hosp., previous admission, EMS record, old EKG, old radiological studies, urgent care reports/EKG's, prison records)? Report findings @ -Previous KUB reviewed showing previous ureteral stent Differential Diagnosis (chest pain, altered mental status, abdominal pain women, abdominal pain men, vaginal bleeding, weakness, fever, dyspnea, syncope, headache, dizziness, GI bleed, back pain, seizure, CVA, palpatations, mental health, musculoskeletal)? @ -Differential Abdominal Pain Men: Appendicitis, cholecystitis, diverticulosis, ischemic bowel, pancreatitis, hepatitis, UTI, gastroenteritis, AAA, incarcerated hernia, bowel obstruction, constipation, inflammatory bowel, hepatitis, peptic ulcer disease, splenic infarction, perforated viscus, testicular torsion, this is not meant to be an all-inclusive list EKG interpreted by me (3pts min.). @ -[As above] X-rays interpreted by me (1pt min.). @ -KUB shows no acute process CT interpreted by me (1pt min.). @ -CT shows renal stones. Thickened bladder. U/S interpreted by me (1pt. min.). @ -[None done] What testing was considered but not performed or refused? (CT, X-rays, U/S, labs)? Why? @ -[None] What meds were considered but not given or refused? Why? @ -[None] Did you discuss the management of the patient with other professionals (professionals i.e. , PA, OIL WELL SERVICES DISPATCHER, lab, RT, psych nurse, social work coordinator, sports development officer, teacher, surveillance dual rate officer, adult protective caseworker)? Give summary @ -Case was discussed with Dr. Manley who will admit covering Dr. Saldaña Was smoking cessation discussed for >3mins.? @ -[No] Was critical care preformed (if so, how long)? @ -31 minutes critical care time Were there social determinants of health that impacted care today? How? (Homelessness, low income, unemployed, alcoholism, drug addiction, transportation, low edu. Level, literacy, decrease access to med. care, shelter, rehab)? @ -[No] Was there de-escalation of care discussed even if they declined (Discuss DNR or withdrawal of care, Hospice)? DNR status @ -[No] What co-morbidities impacted this encounter? (DM, HTN, Smoking, COPD, CAD, Cancer, CVA, ARF, Chemo, Hep., AIDS, mental health diagnosis, sleep apnea, morbid obesity)? @ -[None] Was patient admitted / discharged? Hospital course, mention meds given and route, prescriptions, significant lab abnormalities, going to OR and other pertinent info. @ -Patient reevaluated. Patient is updated on results and plan. Patient will be admitted with IV antibiotics. Blood cultures, lactic acid, and IV antibiotics have all been ordered. Admission orders written. Undiagnosed new problem with uncertain prognosis? @ -[No] Drug Therapy requiring intensive monitoring for toxicity (Heparin, Nitro, Insulin, Cardizem)? @ -[No] Were any procedures done? @ -[No] Diagnosis/symptom? @ -UTI. Sepsis. Acute, or Chronic, or Acute on Chronic? @ -Acute, acute Uncomplicated (without systemic symptoms) or Complicated (systemic symptoms)? @ -Complicated with renal insufficiency Side effects of treatment? @ -[No] Exacerbation, Progression, or Severe Exacerbation? @ -[No] Poses a threat to life or bodily function? How? (Chest pain, USA, PA, pneumonia, PE, COPD, DKA, ARF, appy, cholecystitis, CVA, Diverticulitis, Homicidal, Suicidal, threat to staff... and all critical care pts) @ -Potential for organ dysfunction with sepsis. There is concern for sepsis diagnosed at 1530. Blood culture and lactic acid and IV antibiotics have all been ordered. - Lab Data Result diagrams: 07/29/23 14:16 07/29/23 14:16 Lab Results 07/29/23 07/29/23 07/29/23 Range/Units 14:16 14:16 14:16 WBC 12.9 H (3.8-10.6) k/uL RBC 3.06 L (4.30-5.90) m/uL Hgb 8.8 L (13.0-17.5) gm/dL Hct 30.3 L (39.0-53.0) % MCV 99.0 (80.0-100.0) fL MCH 28.9 (25.0-35.0) pg MCHC 29.2 L (31.0-37.0) g/dL RDW 15.5 (11.5-15.5) % Plt Count 257 (150-450) k/uL MPV 7.9 Neutrophils % 84 % Lymphocytes % 10 % Monocytes % 4 % Eosinophils % 1 % Basophils % 0 % Neutrophils # 10.8 H (1.3-7.7) k/uL Lymphocytes # 1.3 (1.0-4.8) k/uL Monocytes # 0.5 (0-1.0) k/uL Eosinophils # 0.1 (0-0.7) k/uL Basophils # 0.1 (0-0.2) k/uL Hypochromasia Marked Poikilocytosis Slight Macrocytosis Slight PT 16.8 H (10.0-12.5) sec INR 1.6 H (<1.2) APTT 31.1 H (22.0-30.0) sec Sodium (137-145) mmol/L Potassium (3.5-5.1) mmol/L Chloride (98-107) mmol/L Carbon Dioxide (22-30) mmol/L Anion Gap mmol/L BUN (9-20) mg/dL Creatinine (0.66-1.25) mg/dL Est GFR (CKD-EPI)AfAm (>60 ml/min/1.73 sqM) Est GFR (CKD-EPI)NonAf (>60 ml/min/1.73 sqM) Glucose (74-99) mg/dL Calcium (8.4-10.2) mg/dL Total Bilirubin (0.2-1.3) mg/dL AST (17-59) U/L ALT (4-49) U/L Alkaline Phosphatase (38-126) U/L Total Protein (6.3-8.2) g/dL Albumin (3.5-5.0) g/dL Amylase (30-110) U/L Lipase (23-300) U/L Urine Color Colorless Urine Appearance Turbid (Clear) Urine pH 6.0 (5.0-8.0) Ur Specific [place] 1.016 (1.001-1.035) Urine Protein 1+ H (Negative) Urine Glucose (UA) Negative (Negative) Urine Ketones Negative (Negative) Urine Blood Small H (Negative) Urine Nitrite Negative (Negative) Urine Bilirubin Negative (Negative) Urine Urobilinogen <2.0 (<2.0) mg/dL Ur Leukocyte Esterase Large H (Negative) Urine RBC 17 H (0-5) /hpf Urine WBC >182 H (0-5) /hpf Urine Bacteria Occasional H (None) /hpf Hyaline Casts 6 H (0-2) /lpf 07/29/23 Range/Units 14:16 WBC (3.8-10.6) k/uL RBC (4.30-5.90) m/uL Hgb (13.0-17.5) gm/dL Hct (39.0-53.0) % MCV (80.0-100.0) fL MCH (25.0-35.0) pg MCHC (31.0-37.0) g/dL RDW (11.5-15.5) % Plt Count (150-450) k/uL MPV Neutrophils % % Lymphocytes % % Monocytes % % Eosinophils % % Basophils % % Neutrophils # (1.3-7.7) k/uL Lymphocytes # (1.0-4.8) k/uL Monocytes # (0-1.0) k/uL Eosinophils # (0-0.7) k/uL Basophils # (0-0.2) k/uL Hypochromasia Poikilocytosis Macrocytosis PT (10.0-12.5) sec INR (<1.2) APTT (22.0-30.0) sec Sodium 135 L (137-145) mmol/L Potassium 3.8 (3.5-5.1) mmol/L Chloride 117 H (98-107) mmol/L Carbon Dioxide 10 L (22-30) mmol/L Anion Gap 8 mmol/L BUN 32 H (9-20) mg/dL Creatinine 1.68 H (0.66-1.25) mg/dL Est GFR (CKD-EPI)AfAm 46 (>60 ml/min/1.73 sqM) Est GFR (CKD-EPI)NonAf 40 (>60 ml/min/1.73 sqM) Glucose 153 H (74-99) mg/dL Calcium 7.9 L (8.4-10.2) mg/dL Total Bilirubin 0.4 (0.2-1.3) mg/dL AST 34 (17-59) U/L ALT 37 (4-49) U/L Alkaline Phosphatase 105 (38-126) U/L Total Protein 6.1 L (6.3-8.2) g/dL Albumin 2.7 L (3.5-5.0) g/dL Amylase 75 (30-110) U/L Lipase 14 L (23-300) U/L Urine Color Urine Appearance (Clear) Urine pH (5.0-8.0) Ur Specific [place] (1.001-1.035) Urine Protein (Negative) Urine Glucose (UA) (Negative) Urine Ketones (Negative) Urine Blood (Negative) Urine Nitrite (Negative) Urine Bilirubin (Negative) Urine Urobilinogen (<2.0) mg/dL Ur Leukocyte Esterase (Negative) Urine RBC (0-5) /hpf Urine WBC (0-5) /hpf Urine Bacteria (None) /hpf Hyaline Casts (0-2) /lpf Critical Care Time Critical Care Time: Yes Disposition Clinical Impression: Sepsis, Urinary tract infection Disposition: ADMITTED IP TO THIS HOSP Is patient prescribed a controlled substance at d/c from ED?: No Referrals: Minh Saldaña MD [Primary Care Provider] - 1-2 days Time of Disposition: 16:07
[2023-07-29] MEDS: KETOROLAC 15 MG/ML 1 ML VIAL IVP STA (14:22)
[2023-07-29 14:24] LABS: Basophils # (A) 0.1 k/uL (0-0.2); Basophils % (A) 0 %; Eosinophils # (A) 0.1 k/uL (0-0.7); Eosinophils % (A) 1 %; HCT 30.3 % (39.0-53.0); HGB 8.8 gm/dL (13.0-17.5); Hypochromasia Marked; Lymphocytes # (A) 1.3 k/uL (1.0-4.8); Lymphocytes % (A) 10 %; MCH 28.9 pg (25.0-35.0); MCHC 29.2 g/dL (31.0-37.0); Macrocytosis Slight; Mean Platelet Volume 7.9; Monocytes # (A) 0.5 k/uL (0-1.0); Monocytes % (A) 4 %; Neutrophils # (A) 10.8 k/uL (1.3-7.7); Neutrophils % (A) 84 %; Platelet Count 257 k/uL (150-450); Poikilocytosis Slight; RBC 3.06 m/uL (4.30-5.90); RDW 15.5 % (11.5-15.5); WBC 12.9 k/uL (3.8-10.6)
[2023-07-29] MEDS: METOCLOPRAMIDE 5 MG/ML 2 ML VIAL IVP STA (14:25)
[2023-07-29 14:34] LABS: Appearance,Urine Turbid (Clear); Bacteria,Urine Occasional /hpf; Bilirubin,Urine Negative (Negative); Blood,Urine Small (Negative); Color,Urine Colorless; Glucose,Urine (UA) Negative (Negative); Hyaline Casts,Urine 6 /lpf (0-2); Ketones,Urine Negative (Negative); Leukocyte Esterase,Urine Large (Negative); Nitrite,Urine Negative (Negative); Protein,Urine 1+ (Negative); RBC,Urine 17 /hpf (0-5); Specific Gravity,Urine 1.016 (1.001-1.035); Urobilinogen,Urine <2.0 mg/dL (<2.0); WBC,Urine >182 /hpf (0-5)
[2023-07-29 14:36] LABS: INR 1.6 (<1.2); Partial Thromboplastin Time 31.1 sec (22.0-30.0); Prothrombin Time 16.8 sec (10.0-12.5)
[2023-07-29 14:37] LABS: ALT 37 U/L (4-49); AST 34 U/L (17-59); African American GFR (CKD) 46 (>60 ml/min/1.73 sqM); Albumin 2.7 g/dL (3.5-5.0); Alkaline Phosphatase 105 U/L (38-126); Amylase 75 U/L (30-110); Anion Gap 8 mmol/L; Blood Urea Nitrogen 32 mg/dL (9-20); Calcium 7.9 mg/dL (8.4-10.2); Carbon Dioxide 10 mmol/L (22-30); Chloride 117 mmol/L (98-107); Glucose 153 mg/dL (74-99); Lipase 14 U/L (23-300); Non-African American GFR(CKD) 40 (>60 ml/min/1.73 sqM); Potassium 3.8 mmol/L (3.5-5.1); Sodium 135 mmol/L (137-145); Total Bilirubin 0.4 mg/dL (0.2-1.3); Total Protein 6.1 g/dL (6.3-8.2)
--- NOTE | 2023-07-29 15:38 | XR ---
EXAMINATION TYPE: XR KUB DATE OF EXAM: 07/29/2023 COMPARISON: NONE HISTORY: Pain TECHNIQUE: Single supine KUB image of the abdomen is obtained FINDINGS: Small bowel demonstrates no evidence for dilatation or air fluid levels. Gas and fecal material is seen in non-distended colon. No convincing evidence for pneumoperitoneum. No unusual calcifications. The lung bases are clear. The osseous structures are intact. IMPRESSION: 1. Overall nonobstructive bowel gas pattern.
--- NOTE | 2023-07-29 15:40 | CT ---
EXAMINATION TYPE: CT abdomen pelvis wo con DATE OF EXAM: 07/29/2023 COMPARISON: 05/01/2023 HISTORY: right flank pain CT DLP: 363.1 mGycm Automated exposure control for dose reduction was used. TECHNIQUE: Helical acquisition of images was performed from the lung bases through the pelvis. FINDINGS: The lungs are clear. There is surgical absence of the gallbladder There is no biliary ductal dilatation. There is no organomegaly of the liver, pancreas, spleen or adrenal glands. There are multiple nonobstructing bilateral renal calcifications, approximately 10-12 on the right an d 7-8 on the left. The largest calcification on the right is 5 mm and the largest calcification on th e left is 6 mm There is moderate diffuse thickening of the urinary bladder wall consistent with chronic bladder outl et obstruction. There is mild to moderate prostatic hypertrophy. The caliber of the abdominal aorta is normal and there is no retroperitoneal adenopathy or hemorrhage . The bowel loops are normal in caliber is no evidence of obstruction. No inflammatory changes are iden tified in the mesentery and there is no free intraperitoneal air or fluid. There are anastomotic sutu res in the right lower quadrant of the abdomen. There is no pelvic mass, free fluid, abscess or adenopathy. The osseous structures and soft tissues are unremarkable. IMPRESSION: 1. Cholecystectomy. 2. Multiple nonobstructing bilateral renal calcifications as described above. 3. Anastomotic bowel sutures in the right lower quadrant. 4. Urinary bladder wall thickening consistent with chronic bladder outlet obstruction. Mild to modera te prostatic hypertrophy.
[2023-07-29] MEDS: SODIUM CHLORIDE 0.9% 1,000 ML IV STA (16:07)
[2023-07-29] MEDS ORDERED: KETOROLAC 15 MG/ML 1 ML VIAL IVP PRN (16:08)
[2023-07-29] MEDS ORDERED: NALOXONE 0.4 MG/ML 1 ML VIAL IV PRN (16:08)
[2023-07-29] MEDS: HYDROmorphone 0.5 MG/0.5 ML SYRINGE IVP STA (16:15)
--- NOTE | 2023-07-29 16:49 | P.HPIM ---
History of Present Illness H&P Date: 07/29/23 Chief Complaint: Down pain 73-year-old male, history of hypertension, hyperlipidemia, atrial fibrillation, rheumatoid arthritis, history of Crohn's disease, presenting to the emergency department with concerns for flank pain. Onset of symptoms was close to a week ago. Discomfort started right posterior flank however now is more right anterior flank. Patient does have urinary urgency and some dysuria. No fevers. Symptoms are similar to previous kidney stones. Blood work completed in ED reveals a WBC of 12.9, hemoglobin of 8.8 and platelet count of 257, sodium 135, potassium 3.8, BUNs/creatinine of 32/1.68 and blood glucose of 153 UA is positive for leukocyte esterase, WBCs and bacteria Review of Systems REVIEW OF SYSTEMS: CONSTITUTIONAL: No fever, no malaise, no fatigue. HEENT: No recent visual problems or hearing problems. Denied any sore throat. CARDIOVASCULAR: No chest pain, orthopnea, PND, no palpitations, no syncope. PULMONARY: No shortness of breath, no cough, no hemoptysis. GASTROINTESTINAL: No diarrhea, no nausea, no vomiting, no abdominal pain. NEUROLOGICAL: No headaches, no weakness, no numbness. HEMATOLOGICAL: Denies any bleeding or petechiae. GENITOURINARY: Denies any burning micturition, frequency, or urgency. MUSCULOSKELETAL/RHEUMATOLOGICAL: Denies any joint pain, swelling, or any muscle pain. ENDOCRINE: Denies any polyuria or polydipsia. The rest of the 14-point review of systems is negative. Past Medical History Past Medical History: Atrial Fibrillation, Blood Disorder, Eye Disorder, GERD/Reflux, GI Bleed, Hearing Disorder / Deafness, Hyperlipidemia, Hypertension, Musculoskeletal Disorder, Pneumonia, Rheumatoid Arthritis (RA), Skin Disorder, Supraventricular Tachycardia (SVT) Additional Past Medical History / Comment(s): hx CROHN'S (takes tresa), IBS, chronic diarrhea, migraines-, hx ulcers, anemia, gout, kidney stones, psoriasis, bilateral tinnitis., pinched sciatic nerve, C-Diff 2017, neuropathy, COMPLICATED UTI PYELONEPHRITIS, HEART RATE NORMALLY 50'S History of Any Multi-Drug Resistant Organisms: C-DIFF, MRSA Date of last positivie culture/infection: stool MDRO Source:: 2017 Past Surgical History: Ablation, Bowel Resection, Cardiac Ablation, Cholecystectomy, Heart Catheterization, Hernia Repair, Joint Replacement, Orthopedic Surgery, Tonsillectomy Additional Past Surgical History / Comment(s): 13 of stomach removed (partial gastrectomy), ulcers, bowel resections, fecal transplant 2016, bilateral knee arthroscopic surgery, EGD/colonoscopies, R inguinal hernia repair, bilat cataract removal, TOTAL LEFT KNEE. MULTIPLE CYSTOS, PICC 05/11 Past Anesthesia/Blood Transfusion Reactions: Blood Transfusion Reaction, Motion Sickness Additional Past Anesthesia/Blood Transfusion Reaction / Comment(s): BLOOD TRANSFUSION- BROKE OUT IN HIVES age 21 Past Psychological History: Anxiety Smoking Status: Never smoker Past Alcohol Use History: None Reported, Occasional Past Drug Use History: None Reported - Past Family History Mother Family Medical History: Pulmonary Embolus Additional Family Medical History / Comment(s): AGE 73-[place], STROKE DURING CARATID PROCEDURE Medications and Allergies Home Medications Medication Instructions Recorded Confirmed Type Orphenadrine Citrate [Orphenadrine 100 mg PO BID 12/08/17 07/29/23 History Citrate ER] Febuxostat [Uloric] 80 mg PO DAILY 05/05/18 07/29/23 History amLODIPine [Norvasc] 10 mg PO DAILY 10/18/20 07/29/23 History Adalimumab [Humira(Cf) Pen] 40 mg SQ Q14D 08/16/22 07/29/23 History Buprenorphine HCl/Naloxone HCl 1 film SL BID 08/16/22 07/29/23 History [Suboxone 2 mg-0.5 mg Sl Film] Diphenox-Atrop 2.5-0.025 mg 2 tab PO ACHS 12/24/22 07/29/23 History [Lomotil] Omeprazole [PriLOSEC] 20 mg PO BID 05/19/23 07/29/23 History Tamsulosin [Flomax] 0.4 mg PO AC-SUPPER 07/29/23 07/29/23 History Allergies Allergy/AdvReac Type Severity Reaction Status Date / Time Iodinated Contrast Media Allergy Anaphylaxis Verified 07/29/23 16:04 [Iodinated Contrast Media - IV Dye] Physical Exam Vitals: Vital Signs Temp Pulse Resp BP Pulse Ox 07/29/23 13:22 98.5 F 78 22 170/63 97 Intake and Output 07/29/23 07/29/23 07/29/23 06:59 14:59 22:59 Other: Weight 63.503 kg General appearance: alert, in no apparent distress Head exam: Present: normocephalic Eye exam: Present: normal appearance Neck exam: Present: normal inspection Respiratory exam: Present: normal lung sounds bilaterally Cardiovascular Exam: Present: regular rate, normal rhythm Peripheral pulses: 2+: Posterior Tibialis (R), Posterior Tibialis (L) GI/Abdominal exam: Present: soft, tenderness (Mild diffuse tenderness) Extremities exam: Present: normal inspection Neurological exam: Present: alert Psychiatric exam: Present: normal affect, normal mood Skin exam: Present: normal color Results CBC & Chem 7: 07/29/23 14:16 07/29/23 14:16 Labs: Abnormal Lab Results - Last 24 Hours (Table) 07/29/23 07/29/23 07/29/23 Range/Units 14:16 14:16 14:16 WBC 12.9 H (3.8-10.6) k/uL RBC 3.06 L (4.30-5.90) m/uL Hgb 8.8 L (13.0-17.5) gm/dL Hct 30.3 L (39.0-53.0) % MCHC 29.2 L (31.0-37.0) g/dL Neutrophils # 10.8 H (1.3-7.7) k/uL PT 16.8 H (10.0-12.5) sec INR 1.6 H (<1.2) APTT 31.1 H (22.0-30.0) sec Sodium (137-145) mmol/L Chloride (98-107) mmol/L Carbon Dioxide (22-30) mmol/L BUN (9-20) mg/dL Creatinine (0.66-1.25) mg/dL Glucose (74-99) mg/dL Calcium (8.4-10.2) mg/dL Total Protein (6.3-8.2) g/dL Albumin (3.5-5.0) g/dL Lipase (23-300) U/L Urine Protein 1+ H (Negative) Urine Blood Small H (Negative) Ur Leukocyte Esterase Large H (Negative) Urine RBC 17 H (0-5) /hpf Urine WBC >182 H (0-5) /hpf Urine Bacteria Occasional H (None) /hpf Hyaline Casts 6 H (0-2) /lpf 07/29/23 Range/Units 14:16 WBC (3.8-10.6) k/uL RBC (4.30-5.90) m/uL Hgb (13.0-17.5) gm/dL Hct (39.0-53.0) % MCHC (31.0-37.0) g/dL Neutrophils # (1.3-7.7) k/uL PT (10.0-12.5) sec INR (<1.2) APTT (22.0-30.0) sec Sodium 135 L (137-145) mmol/L Chloride 117 H (98-107) mmol/L Carbon Dioxide 10 L (22-30) mmol/L BUN 32 H (9-20) mg/dL Creatinine 1.68 H (0.66-1.25) mg/dL Glucose 153 H (74-99) mg/dL Calcium 7.9 L (8.4-10.2) mg/dL Total Protein 6.1 L (6.3-8.2) g/dL Albumin 2.7 L (3.5-5.0) g/dL Lipase 14 L (23-300) U/L Urine Protein (Negative) Urine Blood (Negative) Ur Leukocyte Esterase (Negative) Urine RBC (0-5) /hpf Urine WBC (0-5) /hpf Urine Bacteria (None) /hpf Hyaline Casts (0-2) /lpf Assessment and Plan Assessment: 1. UTI/sepsis; patient has been placed on IV Rocephin; will continue till final and urine and Blood cultures are available 2. Abdominal pain likely related to nephrolithiasis; Uloric 80 mg daily 3. Acute renal injury/dehydration 4. Chronic anemia; stable at baseline; will continue to monitor 5. Hypertension; amlodipine 10 mg daily 6. BPH; Flomax 0.4 mg daily 7. Gastroesophageal reflux disease; omeprazole 20 mg daily DVT prophylaxis; SCDs/subcu heparin CODE STATUS; full code
[2023-07-29] MEDS: SODIUM CHLORIDE 0.9% 1,000 ML IV SCH (19:31)
[2023-07-29] MEDS: DIPHENOX-ATROP 2.5-0.025 MG 1 EACH TAB PO SCH (19:31)
[2023-07-29] MEDS: MORPHINE SULFATE 4 MG/ML SYRINGE IV PRN (19:32)
[2023-07-29] MEDS: PATIENT'S OWN (Buprenorphine Hcl/Naloxone Hcl [Suboxone 2 Mg-0.5 Mg Sl Film] 1 EACH F SUBLINGUAL SCH (20:41)
[2023-07-30 06:48] LABS: Basophils % (A) 0 %; Eosinophils # (A) 0.3 k/uL (0-0.7); Eosinophils % (A) 3 %; HCT 28.8 % (39.0-53.0); HGB 8.3 gm/dL (13.0-17.5); Hypochromasia Marked; Lymphocytes # (A) 1.1 k/uL (1.0-4.8); Lymphocytes % (A) 10 %; MCH 29.2 pg (25.0-35.0); MCHC 28.9 g/dL (31.0-37.0); MCV 100.9 fL (80.0-100.0); Macrocytosis Slight; Mean Platelet Volume 7.7; Monocytes # (A) 0.5 k/uL (0-1.0); Monocytes % (A) 4 %; Neutrophils # (A) 9.2 k/uL (1.3-7.7); Neutrophils % (A) 81 %; Platelet Count 279 k/uL (150-450); Poikilocytosis Slight; RBC 2.85 m/uL (4.30-5.90); RDW 15.8 % (11.5-15.5); WBC 11.3 k/uL (3.8-10.6)
[2023-07-30 06:57] LABS: African American GFR (CKD) 46 (>60 ml/min/1.73 sqM); Anion Gap 7 mmol/L; Blood Urea Nitrogen 29 mg/dL (9-20); Calcium 7.6 mg/dL (8.4-10.2); Carbon Dioxide 10 mmol/L (22-30); Chloride 118 mmol/L (98-107); Glucose 114 mg/dL (74-99); Non-African American GFR(CKD) 40 (>60 ml/min/1.73 sqM); Potassium 3.9 mmol/L (3.5-5.1); Sodium 135 mmol/L (137-145)
[2023-07-30] MEDS: allopurinoL 100 MG TAB PO SCH (08:43)
[2023-07-30] MEDS: amLODIPine 10 MG TAB PO SCH (08:43)
[2023-07-30] MEDS: PATIENT'S OWN (Buprenorphine Hcl/Naloxone Hcl [Suboxone 2 Mg-0.5 Mg Sl Film] 1 EACH F SUBLINGUAL SCH (13:05)
--- NOTE | 2023-07-30 18:45 | P.PN ---
Subjective Progress Note Date: 07/30/23 73-year-old male, history of hypertension, hyperlipidemia, atrial fibrillation, rheumatoid arthritis, history of Crohn's disease, presenting to the emergency department with concerns for flank pain. Onset of symptoms was close to a week ago. Discomfort started right posterior flank however now is more right anterior flank. Patient does have urinary urgency and some dysuria. No fevers. Symptoms are similar to previous kidney stones. Blood work completed in ED reveals a WBC of 12.9, hemoglobin of 8.8 and platelet count of 257, sodium 135, potassium 3.8, BUNs/creatinine of 32/1.68 and blood glucose of 153 UA is positive for leukocyte esterase, WBCs and bacteria Objective - Vital Signs Vital signs: Vital Signs Temp 98.7 F 07/30/23 13:33 Pulse 52 L 07/30/23 13:33 Resp 19 07/30/23 13:33 BP 152/69 07/30/23 13:33 Pulse Ox 98 07/30/23 13:33 FiO2 Intake & Output 07/29/23 07/30/23 07/30/23 18:59 06:59 18:59 Intake Total 1560 Balance 1560 Weight 63.503 kg 63.503 kg Intake: Intake, IV Titration 1560 Amount Sodium Chloride 0.9% 1, 1560 000 ml @ 130 mls/hr IV . Q7H42M STA Rx#:[id number] Other: Voiding Method Toilet Toilet # Voids 4 - Exam General appearance: alert, in no apparent distress Head exam: Present: normocephalic Eye exam: Present: normal appearance Neck exam: Present: normal inspection Respiratory exam: Present: normal lung sounds bilaterally Cardiovascular Exam: Present: regular rate, normal rhythm Peripheral pulses: 2+: Posterior Tibialis (R), Posterior Tibialis (L) GI/Abdominal exam: Present: soft, tenderness (Mild diffuse tenderness) Extremities exam: Present: normal inspection Neurological exam: Present: alert Psychiatric exam: Present: normal affect, normal mood Skin exam: Present: normal color - Labs CBC & Chem 7: 07/30/23 06:33 07/30/23 06:29 Labs: Abnormal Lab Results - Last 24 Hours (Table) 07/30/23 07/30/23 Range/Units 06:29 06:33 WBC 11.3 H (3.8-10.6) k/uL RBC 2.85 L (4.30-5.90) m/uL Hgb 8.3 L (13.0-17.5) gm/dL Hct 28.8 L (39.0-53.0) % MCV 100.9 H (80.0-100.0) fL MCHC 28.9 L (31.0-37.0) g/dL RDW 15.8 H (11.5-15.5) % Neutrophils # 9.2 H (1.3-7.7) k/uL Sodium 135 L (137-145) mmol/L Chloride 118 H (98-107) mmol/L Carbon Dioxide 10 L (22-30) mmol/L BUN 29 H (9-20) mg/dL Creatinine 1.69 H (0.66-1.25) mg/dL Glucose 114 H (74-99) mg/dL Calcium 7.6 L (8.4-10.2) mg/dL Assessment and Plan Assessment: 1. UTI/sepsis; patient has been placed on IV Rocephin; will continue till final and urine and Blood cultures are available 2. Abdominal pain likely related to nephrolithiasis; Uloric 80 mg daily 3. Acute renal injury/dehydration 4. Chronic anemia; stable at baseline; will continue to monitor 5. Hypertension; amlodipine 10 mg daily 6. BPH; Flomax 0.4 mg daily 7. Gastroesophageal reflux disease; omeprazole 20 mg daily DVT prophylaxis; SCDs/subcu heparin CODE STATUS; full code
[2023-07-31 09:26] LABS: BUN/Creat Ratio 13.81 Ratio (12.00-20.00); Calcium 7.4 mg/dL (8.7-10.3); Carbon Dioxide 13.1 mmol/L (21.6-31.8); Chloride 117 mmol/L (96-109); Glucose 102 mg/dL (70-110); Potassium 3.6 mmol/L (3.5-5.5); Sodium 139 mmol/L (135-145)
[2023-07-31 09:31] LABS: Basophils # (A) 0.06 X 10*3/uL (0.00-0.10); Eosinophils # (A) 0.54 X 10*3/uL (0.04-0.35); Eosinophils % (A) 9.2 %; HCT 23.3 % (39.6-50.0); HGB 6.8 g/dL (13.0-17.0); Lymphocytes # (A) 1.79 X 10*3/uL (0.90-5.00); Lymphocytes % (A) 30.4 %; MCH 28.8 pg (27.0-32.0); MCHC 29.2 g/dL (32.0-37.0); MCV 98.7 FL (80.0-97.0); Mean Platelet Volume 10.4 FL (9.5-12.2); Monocytes # (A) 0.52 X 10*3/uL (0.20-1.00); Monocytes % (A) 8.8 %; NRBC Per 100 WBC 0 X 10*3/uL (0.00-0.01); Neutrophils # (A) 2.96 X 10*3/uL (1.80-7.70); Neutrophils % (A) 50.3 %; Platelet Count 226 X 10*3/uL (140-440); RBC 2.36 X 10*6/uL (4.40-5.60); RDW 16.1 % (11.5-14.5); WBC 5.89 X 10*3/uL (4.50-10.00)
[2023-07-31] MEDS: PANTOPRAZOLE 40 MG/10 ML VIAL IVP SCH (14:38)
--- NOTE | 2023-07-31 15:13 | P.GSCN ---
History of Present Illness Consult date: 07/31/23 History of present illness: Patient admitted with incidental finding of acute anemia, Hgb less than 7.0. He has personal history of Crohns disease. He has prior bowel resections. "I had this before," with regards to unknown anemia. He denies hematemesis or blood in stools. He is getting a blood transfusion. Last endoscopy Mar [address] Patten. Records: Reviewed PLAN: 1. Agree with blood transfusion and medically stabilize 2. May benefit from repeat upper scope/colonoscopy or pill endoscopy Past Medical History Past Medical History: Atrial Fibrillation, Blood Disorder, Eye Disorder, GERD/Reflux, GI Bleed, Hearing Disorder / Deafness, Hyperlipidemia, Hypertension, Musculoskeletal Disorder, Pneumonia, Rheumatoid Arthritis (RA), Skin Disorder, Supraventricular Tachycardia (SVT) Additional Past Medical History / Comment(s): hx CROHN'S (takes tresa), IBS, chronic diarrhea, migraines-, hx ulcers, anemia, gout, kidney stones, psoriasis, bilateral tinnitis., pinched sciatic nerve, C-Diff 2017, neuropathy, COMPLICATED UTI PYELONEPHRITIS, HEART RATE NORMALLY 50'S History of Any Multi-Drug Resistant Organisms: C-DIFF, MRSA Year Discovered:: stool MDRO Source:: 2016 Past Surgical History: Ablation, Bowel Resection, Cardiac Ablation, Cholecystectomy, Heart Catheterization, Hernia Repair, Joint Replacement, Orthopedic Surgery, Tonsillectomy Additional Past Surgical History / Comment(s): 1/3 of stomach removed (partial gastrectomy), ulcers, bowel resections, fecal transplant 2016, bilateral knee arthroscopic surgery, EGD/colonoscopies, R inguinal hernia repair, bilat cataract removal, TOTAL LEFT KNEE. MULTIPLE CYSTOS, PICC 05/11 Past Anesthesia/Blood Transfusion Reactions: Blood Transfusion Reaction, Motion Sickness Additional Past Anesthesia/Blood Transfusion Reaction / Comm: BLOOD TRANSFUSION- BROKE OUT IN HIVES age 21 Past Psychological History: Anxiety Additional Psychological History / Comment(s): denies Smoking Status: Never smoker Past Alcohol Use History: None Reported, Occasional Additional Past Alcohol Use History / Comment(s): FORMER every other day 2-3 beers per patient. 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 - Past Family History Mother Family Medical History: Pulmonary Embolus Additional Family Medical History / Comment(s): AGE 73-CO, STROKE DURING CARATID PROCEDURE Medications and Allergies Home Medications Medication Instructions Recorded Confirmed Type Orphenadrine Citrate [Orphenadrine 100 mg PO BID 12/08/17 07/29/23 History Citrate ER] Febuxostat [Uloric] 80 mg PO DAILY 05/05/18 07/29/23 History amLODIPine [Norvasc] 10 mg PO DAILY 10/18/20 07/29/23 History Adalimumab [Humira(Cf) Pen] 40 mg SQ Q14D 08/16/22 07/29/23 History Buprenorphine HCl/Naloxone HCl 1 film SL BID 08/16/22 07/29/23 History [Suboxone 2 mg-0.5 mg Sl Film] Diphenox-Atrop 2.5-0.025 mg 2 tab PO ACHS 12/24/22 07/29/23 History [Lomotil] Omeprazole [PriLOSEC] 20 mg PO BID 05/19/23 07/29/23 History Tamsulosin [Flomax] 0.4 mg PO AC-SUPPER 07/29/23 07/29/23 History Allergies Allergy/AdvReac Type Severity Reaction Status Date / Time Iodinated Contrast Media Allergy Anaphylaxis Verified 07/29/23 16:04 [Iodinated Contrast Media - IV Dye] Surgical - Exam Vital Signs Temp Pulse Resp BP Pulse Ox 98.5 F 78 22 170/63 97 07/29/23 13:22 07/29/23 13:22 07/29/23 13:22 07/29/23 13:22 07/29/23 13:22 Results - Labs 07/31/23 06:16 07/31/23 06:16 Abnormal Lab Results - Last 24 Hours (Table) 07/31/23 07/31/23 07/31/23 Range/Units 06:16 06:16 10:23 RBC 2.36 L (4.40-5.60) X 10*6/uL Hgb 6.8 A* (13.0-17.0) g/dL Hct 23.3 L (39.6-50.0) % MCV 98.7 H (80.0-97.0) FL MCHC 29.2 L (32.0-37.0) g/dL RDW 16.1 H (11.5-14.5) % Eosinophils # 0.54 H (0.04-0.35) X 10*3/uL Chloride 117 H (96-109) mmol/L Carbon Dioxide 13.1 L (21.6-31.8) mmol/L BUN 29.0 H (9.0-27.0) mg/dL Creatinine 2.1 H (0.6-1.5) mg/dL Est GFR (CKD-EPI) 33 L (>=60) Calcium 7.4 L (8.7-10.3) mg/dL Crossmatch See Detail Microbiology - Last 24 Hours (Table) 07/29/23 16:12 Urine Culture - Final Urine,Voided 07/29/23 15:55 Blood Culture - Preliminary Blood 07/29/23 15:45 Blood Culture - Preliminary Blood Diabetes panel 07/31/23 Range/Units 06:16 Sodium 139 (135-145) mmol/L Potassium 3.6 (3.5-5.5) mmol/L Chloride 117 H (96-109) mmol/L Carbon Dioxide 13.1 L (21.6-31.8) mmol/L BUN 29.0 H (9.0-27.0) mg/dL Creatinine 2.1 H (0.6-1.5) mg/dL Glucose 102 (70-110) mg/dL Calcium 7.4 L (8.7-10.3) mg/dL Calcium panel 07/31/23 Range/Units 06:16 Calcium 7.4 L (8.7-10.3) mg/dL Pituitary panel 07/31/23 Range/Units 06:16 Sodium 139 (135-145) mmol/L Potassium 3.6 (3.5-5.5) mmol/L Chloride 117 H (96-109) mmol/L Carbon Dioxide 13.1 L (21.6-31.8) mmol/L BUN 29.0 H (9.0-27.0) mg/dL Creatinine 2.1 H (0.6-1.5) mg/dL Glucose 102 (70-110) mg/dL Calcium 7.4 L (8.7-10.3) mg/dL Adrenal panel 07/31/23 Range/Units 06:16 Sodium 139 (135-145) mmol/L Potassium 3.6 (3.5-5.5) mmol/L Chloride 117 H (96-109) mmol/L Carbon Dioxide 13.1 L (21.6-31.8) mmol/L BUN 29.0 H (9.0-27.0) mg/dL Creatinine 2.1 H (0.6-1.5) mg/dL Glucose 102 (70-110) mg/dL Calcium 7.4 L (8.7-10.3) mg/dL
[2023-07-31] MEDS: DEXTROSE 5% IN WATER 1,000 ML with SODIUM BICARB (1 MEQ/ML) 150 ML IV SCH (16:50)
--- NOTE | 2023-07-31 17:42 | P.PN ---
Subjective Progress Note Date: 07/31/23 73-year-old male, history of hypertension, hyperlipidemia, atrial fibrillation, rheumatoid arthritis, history of Crohn's disease, presenting to the emergency department with concerns for flank pain. Onset of symptoms was close to a week ago. Discomfort started right posterior flank however now is more right anterior flank. Patient does have urinary urgency and some dysuria. No fevers. Symptoms are similar to previous kidney stones. Blood work completed in ED reveals a WBC of 12.9, hemoglobin of 8.8 and platelet count of 257, sodium 135, potassium 3.8, BUNs/creatinine of 32/1.68 and blood glucose of 153 UA is positive for leukocyte esterase, WBCs and bacteria 07/31/2023 Patient seen and evaluated in room at bedside; continues to complain abdominal pain Vital signs are reviewed and are stable Lab review shows WBC 5.89, hemoglobin of 6.8 and platelet count of 226, sodium 139, potassium 3.6, BUNs/creatinine of 29/2.1 Patient remains on--IV Rocephin for UTI --General surgery on board for abdominal pain; considering repeat EGD/colonoscopy versus capsule endoscopy -- No signs of bleeding; patient is to receive 1 unit packed RBCs; monitor H&H closely -- Consult nephrology for worsening renal function Objective - Vital Signs Vital signs: Vital Signs Temp 97.8 F 07/31/23 16:03 Pulse 55 L 07/31/23 16:03 Resp 18 07/31/23 16:03 BP 145/71 07/31/23 16:03 Pulse Ox 95 07/31/23 16:03 FiO2 Intake & Output 07/30/23 07/31/23 07/31/23 18:59 06:59 18:59 Intake Total 1560 310 Output Total 675 Balance 1560 -365 Intake: Intake, IV Titration 1560 Amount Sodium Chloride 0.9% 1, 1560 000 ml @ 130 mls/hr IV . Q7H42M [facility] Rx#:[id number] Blood Product 310 Rc As-1 Unit 310 [id number] Output: Urine 675 Other: Voiding Method Toilet Toilet Toilet # Voids 5 1 # Bowel Movements 6 - Exam General appearance: alert, in no apparent distress Head exam: Present: normocephalic Eye exam: Present: normal appearance Neck exam: Present: normal inspection Respiratory exam: Present: normal lung sounds bilaterally Cardiovascular Exam: Present: regular rate, normal rhythm Peripheral pulses: 2+: Posterior Tibialis (R), Posterior Tibialis (L) GI/Abdominal exam: Present: soft, tenderness (Mild diffuse tenderness) Extremities exam: Present: normal inspection Neurological exam: Present: alert Psychiatric exam: Present: normal affect, normal mood Skin exam: Present: normal color - Labs CBC & Chem 7: 07/31/23 06:16 07/31/23 06:16 Labs: Abnormal Lab Results - Last 24 Hours (Table) 07/31/23 07/31/23 07/31/23 Range/Units 06:16 06:16 10:23 RBC 2.36 L (4.40-5.60) X 10*6/uL Hgb 6.8 A* (13.0-17.0) g/dL Hct 23.3 L (39.6-50.0) % MCV 98.7 H (80.0-97.0) FL MCHC 29.2 L (32.0-37.0) g/dL RDW 16.1 H (11.5-14.5) % Eosinophils # 0.54 H (0.04-0.35) X 10*3/uL Chloride 117 H (96-109) mmol/L Carbon Dioxide 13.1 L (21.6-31.8) mmol/L BUN 29.0 H (9.0-27.0) mg/dL Creatinine 2.1 H (0.6-1.5) mg/dL Est GFR (CKD-EPI) 33 L (>=60) Calcium 7.4 L (8.7-10.3) mg/dL Crossmatch See Detail Microbiology - Last 24 Hours (Table) 07/29/23 16:12 Urine Culture - Final Urine,Voided 07/29/23 15:55 Blood Culture - Preliminary Blood 07/29/23 15:45 Blood Culture - Preliminary Blood Assessment and Plan Assessment: 1. UTI/sepsis; patient has been placed on IV Rocephin; will continue till final and urine and Blood cultures are available 2. Abdominal pain likely related to nephrolithiasis; Uloric 80 mg daily 3. Acute renal injury/dehydration 4. Chronic anemia; stable at baseline; will continue to monitor 5. Hypertension; amlodipine 10 mg daily 6. BPH; Flomax 0.4 mg daily 7. Gastroesophageal reflux disease; omeprazole 20 mg daily DVT prophylaxis; SCDs/subcu heparin CODE STATUS; full code
[2023-08-01 08:41] LABS: Basophils # (A) 0.05 X 10*3/uL (0.00-0.10); Basophils % (A) 0.7 %; Eosinophils % (A) 6.7 %; HCT 27.6 % (39.6-50.0); HGB 8.3 g/dL (13.0-17.0); Lymphocytes # (A) 1.85 X 10*3/uL (0.90-5.00); Lymphocytes % (A) 24.8 %; MCH 29.3 pg (27.0-32.0); MCHC 30.1 g/dL (32.0-37.0); MCV 97.5 FL (80.0-97.0); Mean Platelet Volume 10.1 FL (9.5-12.2); Monocytes # (A) 0.41 X 10*3/uL (0.20-1.00); Monocytes % (A) 5.5 %; NRBC Per 100 WBC 0 X 10*3/uL (0.00-0.01); Neutrophils # (A) 4.62 X 10*3/uL (1.80-7.70); Neutrophils % (A) 61.9 %; Platelet Count 229 X 10*3/uL (140-440); RBC 2.83 X 10*6/uL (4.40-5.60); RDW 16.1 % (11.5-14.5); WBC 7.46 X 10*3/uL (4.50-10.00)
[2023-08-01 08:49] LABS: BUN/Creat Ratio 17.06 Ratio (12.00-20.00); Blood Urea Nitrogen 27.3 mg/dL (9.0-27.0); Calcium 7.5 mg/dL (8.7-10.3); Carbon Dioxide 17.1 mmol/L (21.6-31.8); Chloride 113 mmol/L (96-109); Glucose 101 mg/dL (70-110); Potassium 3.5 mmol/L (3.5-5.5); Sodium 138 mmol/L (135-145)
--- NOTE | 2023-08-01 09:14 | P.PN ---
Subjective Progress Note Date: 08/01/23 Principal diagnosis: uti, anemia This is a 73-year-old male who presented to the emergency department with complaints of flank pain. He did admit to urinary urgency and dysuria, and was found to have a positive urinary tract infection. Patient has been maintained on Rocephin. Hemoglobin yesterday was 6.8 and patient received 1 unit of packed RBCs. Patient denies any signs of bleeding. Neurosurgery and nephrology have been consulted. Patient seen this morning sitting up in bed eating breakfast. He reports he is tolerating diet. He reports he is still feeling somewhat weak. He has been urinating regularly. Objective - Vital Signs Vital signs: Vital Signs Temp 97.6 F 08/01/23 07:22 Pulse 84 08/01/23 07:22 Resp 16 08/01/23 07:22 BP 183/93 08/01/23 07:22 Pulse Ox 99 08/01/23 07:22 FiO2 Intake & Output 07/31/23 08/01/23 08/01/23 18:59 06:59 18:59 Intake Total 1210 240 Output Total 675 200 300 Balance 535 40 -300 Intake: Intake, IV Titration 900 Amount Sodium Chloride 0.9% 1, 900 000 ml @ 75 mls/hr IV . [id number] [facility] Rx#:[id number] Oral 240 Blood Product 310 Rc As-1 Unit 310 [id number] Output: Urine 675 200 300 Other: Voiding Method Toilet Toilet Urinal # Voids 3 - Constitutional General appearance: Present: no acute distress, thin - EENT Eyes: Present: PERRLA - Neck Neck: Present: normal ROM. Absent: lymphadenopathy, rigidity - Respiratory Respiratory: bilateral: CTA - Cardiovascular Rhythm: regular Heart sounds: normal: S1, S2 - Gastrointestinal General gastrointestinal: Present: soft, tenderness - Integumentary Integumentary: Present: pale - Musculoskeletal Musculoskeletal: Present: generalized weakness - Psychiatric Psychiatric: Present: A&O x's 3 - Labs CBC & Chem 7: 08/01/23 06:21 08/01/23 06:21 Labs: Abnormal Lab Results - Last 24 Hours (Table) 07/31/23 07/31/23 07/31/23 Range/Units 06:16 06:16 10:23 RBC 2.36 L (4.40-5.60) X 10*6/uL Hgb 6.8 A* (13.0-17.0) g/dL Hct 23.3 L (39.6-50.0) % MCV 98.7 H (80.0-97.0) FL MCHC 29.2 L (32.0-37.0) g/dL RDW 16.1 H (11.5-14.5) % Eosinophils # 0.54 H (0.04-0.35) X 10*3/uL Chloride 117 H (96-109) mmol/L Carbon Dioxide 13.1 L (21.6-31.8) mmol/L BUN 29.0 H (9.0-27.0) mg/dL Creatinine 2.1 H (0.6-1.5) mg/dL Est GFR (CKD-EPI) 33 L (>=60) Calcium 7.4 L (8.7-10.3) mg/dL Crossmatch See Detail 08/01/23 08/01/23 Range/Units 06:21 06:21 RBC 2.83 L (4.40-5.60) X 10*6/uL Hgb 8.3 L (13.0-17.0) g/dL Hct 27.6 L (39.6-50.0) % MCV 97.5 H (80.0-97.0) FL MCHC 30.1 L (32.0-37.0) g/dL RDW 16.1 H (11.5-14.5) % Eosinophils # 0.50 H (0.04-0.35) X 10*3/uL Chloride 113 H (96-109) mmol/L Carbon Dioxide 17.1 L (21.6-31.8) mmol/L BUN 27.3 H (9.0-27.0) mg/dL Creatinine 1.6 H (0.6-1.5) mg/dL Est GFR (CKD-EPI) 45 L (>=60) Calcium 7.5 L (8.7-10.3) mg/dL Crossmatch Microbiology - Last 24 Hours (Table) 07/29/23 15:55 Blood Culture - Preliminary Blood 07/29/23 15:45 Blood Culture - Preliminary Blood 07/29/23 16:12 Urine Culture - Final Urine,Voided Assessment and Plan (1) Sepsis Current Visit: Yes Status: Acute Code(s): A41.9 - SEPSIS, UNSPECIFIED ORGANISM SNOMED Code(s): 33238453 (2) Urinary tract infection Current Visit: Yes Status: Acute Code(s): N39.0 - URINARY TRACT INFECTION, SITE NOT SPECIFIED SNOMED Code(s): 03291533 (3) Abdominal pain Current Visit: No Status: Acute Code(s): R10.9 - UNSPECIFIED ABDOMINAL PAIN SNOMED Code(s): 87550860 (4) Weakness Current Visit: No Status: Acute Code(s): R53.1 - WEAKNESS SNOMED Code(s): 33014681 (5) Chronic anemia Current Visit: Yes Status: Acute Code(s): D64.9 - ANEMIA, UNSPECIFIED SNOMED Code(s): 864852155 (6) Hypertension Current Visit: No Status: Acute Code(s): I10 - ESSENTIAL (PRIMARY) HYPERTENSION SNOMED Code(s): 61105934 (7) Opiate dependence Current Visit: No Status: Acute Code(s): F11.20 - OPIOID DEPENDENCE, UNCOMPLICATED SNOMED Code(s): 27783564 Plan: Continue IV Rocephin Check CBC and CMP in the morning Patient seen and evaluated by nurse practitioner, physician in agreement with plan
--- NOTE | 2023-08-01 09:40 | CDI ---
Documentation Clarification Form Date: 08/01/2023 09:21:51 AM From: Chayo Jordan RN CCDS Phone: [phone] Admit Date: 07/29/2023 04:10:00 PM Patient Name: Silvano Rajan Visit Number: [id number] Discharge Date: ATTENTION: The Clinical Documentation Specialists (CDI) and [facility] Coding Staff appreciate your assistance in clarifying documentation. Please respond to the clarification below the line at the bottom and electronically sign. The CDI & [facility] Coding staff will review the response and follow-up if needed. Please note: Queries are made part of the Legal Health Record. If you have any questions, please contact the author of this message via ITS. Dr. Minh Saldaña Your patient has a hemoglobin/hematocrit level of 6.8 / 23.3, 07/30, LABS. Please clarify if there is an additional diagnosis and/or clinical significance related to these lab values. History/Risk Factors: 73-year-old male presents to the ED with concerns of flank pain. Onset close to a week ago. Right posterior flank however more right anterior flank. Medical history: Crohns, HTN, HLD, RA, GI bleed, Bowel resection, SVT and Deafness. 07/28, H&P. Clinical indicators: Hgb: 07/28 8.8 07/29 8.3; 07/30 6.8; 07/31 8.3 Hct: 07/28 30.0 07/29 28.8; 07/30 23.3; 07/31 27.6 07/30, SX consult: Patient admitted with incidental finding of acute anemia, Hgb less thatn 7.0. Prior bowel obstructions. Agree with blood transfusion and medically stabilize. May benefit from repeat upper scope/colonoscopy or pill endoscopy. Treatment: 07/30 1 Unit RBC, Daily CBC SX consult see above. Is there an additional diagnosis and/or clinical significance related to the above lab result/information: [ ] Acute blood loss anemia [ x ] Acute on chronic blood loss anemia [ ] No additional diagnosis/Not clinically significant [ ] Unable to determine [ ] Other, please specify (Template Last Revised: May 2022) MTDD
--- NOTE | 2023-08-01 09:41 | CDI ---
Documentation Clarification Form Date: 08/01/2023 09:00:46 AM From: Chayo Jordan RN CCDS Phone: [phone] Admit Date: 07/29/2023 04:10:00 PM Patient Name: Silvano Rajan Visit Number: [id number] Discharge Date: ATTENTION: The Clinical Documentation Specialists (CDI) and [facility] Coding Staff appreciate your assistance in clarifying documentation. Please respond to the clarification below the line at the bottom and electronically sign. The CDI & [facility] Coding staff will review the response and follow-up if needed. Please note: Queries are made part of the Legal Health Record. If you have any questions, please contact the author of this message via ITS. Dr. Minh Saldaña Sepsis is documented 07/28, H&P which may lack sufficient clinical evidence/support in the medical record. Additional clarification is requested. History/Risk Factors: 73-year-old male presents to the ED with concerns of flank pain. Onset close to a week ago. Right posterior flank however more right anterior flank. Medical history: Crohns, HTN, HLD, RA, SVT and Deafness. 07/28, H&P. Clinical Indicators: VSS, 07/28: B/P 170/63 78 98.5F oral RR 22 SpO2 97% ra Labs, 07/28: Wbc 12.9, Neutrophils 10.8, Cr 1.68, UA: Appearance: turbid protein 1+, Blood small, Leukocyte esterase large rbc 17 wbc >182 hyaline casts 6 Urine culture, 07/30: No growth after 18hours CT ABD/PELV, 07/28: Cholecystectomy, Multiple nonobstructing bilateral renal calcifications. Urinary bladder wall thickening consistent with chronic bladder outlet obstruction. Mild to moderate prostatic hypertrophy. Treatment: 07/28 Ceftriaxone 2gm IVPB, 07/29 07/30 Ceftriaxone 2gm IVPB Q24HR; 07/28 07/29 0.9ns 130cchr; 07/30 Dextrose / Water with Sodium Bicarbonate 150ml 1,150mls @75 mls/hr Please clarify if Sepsis is a valid diagnosis? [ ] Yes, Sepsis is present as evidence by (additional clinical support): [x ] No, Sepsis is ruled out [ ] Other (please specify diagnosis) [ ] Unable to determine (Template Last Revised: June 2020) MTDD
--- NOTE | 2023-08-01 10:15 | P.PN ---
Subjective Progress Note Date: 08/01/23 Principal diagnosis: Anemia We were consulted over the weekend for anemia. Patient actually came in with urinary complaints. Describes urinary frequency and some retention like issues. Patient has had apparently some urinary infections recently and kidney stone issues. Patient is a Crohn's patient. He has a history of previous gastrojejunostomy. He had a previous marginal ulceration requiring clip placement. Patient has had intermittent issues with anemia over the last several years. Denies abdominal pain. No rectal bleeding or melena. No bowel related issues. Has not seen his GI doctor Dr. Buchanan for quite some time. Objective - Vital Signs Vital signs: Vital Signs Temp 97.6 F 08/01/23 07:22 Pulse 84 08/01/23 07:22 Resp 16 08/01/23 07:22 BP 183/93 08/01/23 07:22 Pulse Ox 99 08/01/23 07:22 FiO2 Intake & Output 07/31/23 08/01/23 08/01/23 18:59 06:59 18:59 Intake Total 1210 240 Output Total 675 200 300 Balance 535 40 -300 Intake: Intake, IV Titration 900 Amount Sodium Chloride 0.9% 1, 900 000 ml @ 75 mls/hr IV . [id number] [facility] Rx#:[id number] Oral 240 Blood Product 310 Rc As-1 Unit 310 [id number] Output: Urine 675 200 300 Other: Voiding Method Toilet Toilet Urinal # Voids 3 - Exam Physical exam: General: Well-developed, well-nourished HEENT: Normocephalic, sclerae nonicteric Abdomen: Nontender, nondistended Extremities: No edema Neuro: Alert and oriented - Labs CBC & Chem 7: 08/01/23 06:21 08/01/23 06:21 Labs: Abnormal Lab Results - Last 24 Hours (Table) 07/31/23 08/01/23 08/01/23 Range/Units 10:23 06:21 06:21 RBC 2.83 L (4.40-5.60) X 10*6/uL Hgb 8.3 L (13.0-17.0) g/dL Hct 27.6 L (39.6-50.0) % MCV 97.5 H (80.0-97.0) FL MCHC 30.1 L (32.0-37.0) g/dL RDW 16.1 H (11.5-14.5) % Eosinophils # 0.50 H (0.04-0.35) X 10*3/uL Chloride 113 H (96-109) mmol/L Carbon Dioxide 17.1 L (21.6-31.8) mmol/L BUN 27.3 H (9.0-27.0) mg/dL Creatinine 1.6 H (0.6-1.5) mg/dL Est GFR (CKD-EPI) 45 L (>=60) Calcium 7.5 L (8.7-10.3) mg/dL Crossmatch See Detail Microbiology - Last 24 Hours (Table) 07/29/23 15:55 Blood Culture - Preliminary Blood 07/29/23 15:45 Blood Culture - Preliminary Blood 07/29/23 16:12 Urine Culture - Final Urine,Voided Assessment and Plan (1) Chronic anemia Narrative/Plan: 73-year-old male with chronic anemia. Hemoglobin stable after 1 unit transfusion. Spoke with GI service. They are here this week. Will consult Dr. Buchanan. Given the patient's lack of abdominal pain we will sign off. Please reconsult if needed. Current Visit: Yes Status: Acute Code(s): D64.9 - ANEMIA, UNSPECIFIED SNOMED Code(s): 022378364
--- NOTE | 2023-08-01 11:57 | P.NPCON ---
History of Present Illness - Reason for Consult acute renal failure - History of Present Illness patient is a 73-year-old male with history of hypertension, chronic A. fib, rheumatoid arthritis and Crohn's disease. Patient is admitted to the hospital with complaints of flank pain and increased weakness. He did admit to increased urinary frequency and pain as well. No history of fevers or chills. Patient does have history of nephrolithiasis. CT of the abdomen showed bilateral nonobstructive calculi. UA suggestive of underlying UTI and patient is currently maintained on antibiotics. serum creatinine improved to 1.6 from 2.1 yesterday.previous creatinine 1.1 on 05/06/2023. patient is voiding on his own. Review of Systems As per HPI. Past Medical History Past Medical History: Atrial Fibrillation, Blood Disorder, Eye Disorder, GERD/Reflux, GI Bleed, Hearing Disorder / Deafness, Hyperlipidemia, Hypertension, Musculoskeletal Disorder, Pneumonia, Rheumatoid Arthritis (RA), Skin Disorder, Supraventricular Tachycardia (SVT) Additional Past Medical History / Comment(s): hx CROHN'S (takes tresa), IBS, chronic diarrhea, migraines-, hx ulcers, anemia, gout, kidney stones, psoriasis, bilateral tinnitis., pinched sciatic nerve, C-Diff 2017, neuropathy, COMPLICATED UTI PYELONEPHRITIS, HEART RATE NORMALLY 50'S History of Any Multi-Drug Resistant Organisms: C-DIFF, MRSA Date of last positivie culture/infection: stool MDRO Source:: 2017 Past Surgical History: Ablation, Bowel Resection, Cardiac Ablation, Cholecystectomy, Heart Catheterization, Hernia Repair, Joint Replacement, Orthopedic Surgery, Tonsillectomy Additional Past Surgical History / Comment(s): 1/3 of stomach removed (partial gastrectomy), ulcers, bowel resections, fecal transplant 2017, bilateral knee arthroscopic surgery, EGD/colonoscopies, R inguinal hernia repair, bilat cataract removal, TOTAL LEFT KNEE. MULTIPLE CYSTOS, PICC 05/11 Past Anesthesia/Blood Transfusion Reactions: Blood Transfusion Reaction, Motion Sickness Additional Past Anesthesia/Blood Transfusion Reaction / Comment(s): BLOOD TRANSFUSION- BROKE OUT IN HIVES age 21 Past Psychological History: Anxiety Additional Psychological History / Comment(s): denies Smoking Status: Never smoker Past Alcohol Use History: None Reported, Occasional Additional Past Alcohol Use History / Comment(s): FORMER every other day 2-3 beers per patient. 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 - Past Family History Mother Family Medical History: Pulmonary Embolus Additional Family Medical History / Comment(s): AGE 73-[place], STROKE DURING CARATID PROCEDURE Medications and Allergies Home Medications Medication Instructions Recorded Confirmed Type Orphenadrine Citrate [Orphenadrine 100 mg PO BID 12/08/17 07/29/23 History Citrate ER] Febuxostat [Uloric] 80 mg PO DAILY 05/05/18 07/29/23 History amLODIPine [Norvasc] 10 mg PO DAILY 10/18/20 07/29/23 History Adalimumab [Humira(Cf) Pen] 40 mg SQ Q14D 08/16/22 07/29/23 History Buprenorphine HCl/Naloxone HCl 1 film SL BID 08/16/22 07/29/23 History [Suboxone 2 mg-0.5 mg Sl Film] Diphenox-Atrop 2.5-0.025 mg 2 tab PO ACHS 12/24/22 07/29/23 History [Lomotil] Omeprazole [PriLOSEC] 20 mg PO BID 05/19/23 07/29/23 History Tamsulosin [Flomax] 0.4 mg PO AC-SUPPER 07/29/23 07/29/23 History Allergies Allergy/AdvReac Type Severity Reaction Status Date / Time Iodinated Contrast Media Allergy Anaphylaxis Verified 07/29/23 16:04 [Iodinated Contrast Media - IV Dye] Physical Exam Vitals: Vital Signs Temp Pulse Pulse Resp BP BP BP 08/01/23 07:22 97.6 F 84 16 183/93 171/79 08/01/23 01:07 97.4 F L 60 17 128/62 07/31/23 19:31 97.4 F L 60 15 156/66 07/31/23 16:03 97.8 F 55 L 18 145/71 07/31/23 12:39 97.5 F L 54 L 20 178/68 07/31/23 12:19 97.4 F L 53 L 17 160/64 07/31/23 12:09 97.3 F L 52 L 18 157/66 Pulse Ox 08/01/23 07:22 99 08/01/23 01:07 96 07/31/23 19:31 99 07/31/23 16:03 95 04/14/24 12:39 54 L 07/31/23 12:19 97 07/31/23 12:09 99 Intake and Output 07/31/23 08/01/23 08/01/23 22:59 06:59 14:59 Intake Total 1450 Output Total 200 300 Balance 1450 -200 -300 Intake: Intake, IV Titration 900 Amount Sodium Chloride 0.9% 1, 900 000 ml @ 75 mls/hr IV . [id number] [facility] Rx#:[id number] Oral 240 Blood Product 310 Rc As-1 Unit 310 [id number] Output: Urine 200 300 Other: Voiding Method Toilet Toilet Urinal # Voids 3 patient is awake, comfortable, no acute distress Examination of the heart S1 and S2 Examination of the lungs bilateral breath sounds are heard Abdomen is soft nontender Examination of lower extremities shows no significant edema [employer] exam grossly intact Results - Lab Results Most recent lab results Calcium 7.5 mg/dL (8.7-10.3) L 08/01/23 06:21 08/01/23 06:21 08/01/23 06:21 Assessment and Plan Assessment: 1. Acute kidney injury, ATN currently nonoliguric secondary to underlying infection. Blood pressure is not noted to be low.rule out urine retention. Computed tomography scan of the abdomen and pelvis shows diffuse thickening of the urinary bladder wall. 2. Nephrolithiasis with bilateral nonobstructive renal calculi with largest calcification at 6 mm on the left. 3. UTI maintained on antibiotics, urine culture is pending 4. Anemia with hemoglobin at 6.8 g/dL status postpacked RBCs transfusion. No active bleeding noted. 5. Non-gap metabolic acidosis associated with acute kidney injury and possibly underlying obstructive uropathy with bladder outlet obstruction 6. History of Crohn's disease with previous marginal ulceration requiring replacement Plan: continue with IV bicarb Check bladder scan and rule out urine retention Continue with antibiotics Repeat labs in a.m.
--- NOTE | 2023-08-01 14:40 | P.GSCN ---
History of Present Illness Consult date: 08/01/23 History of present illness: 73-year-old gentleman who presented to the hospital several days ago with left- sided flank pain. He has a known history kidney stones. He has seen for this in the recent past. We are asked to see for this as well as voiding dysfunction. Patient had a CAT scan/04/10 that identified bilateral small but multiple renal stones that were nonobstructing. He has a thickened bladder wall.The patient's urine microscopically was inflamed. The urine culture was negative.The patient was in the hospital a couple of weeks ago apparently and was treated with antibiotics. The patient's symptoms this visit have been abrupt and have subsided. He had sudden urges to urinate with minimal urine output. He did have dysuria. Review of Systems All systems: negative Past Medical History Past Medical History: Atrial Fibrillation, Blood Disorder, Eye Disorder, GERD/Reflux, GI Bleed, Hearing Disorder / Deafness, Hyperlipidemia, Hyperte nsion, Musculoskeletal Disorder, Pneumonia, Rheumatoid Arthritis (RA), Skin Disorder, Supraventricular Tachycardia (SVT) Additional Past Medical History / Comment(s): hx CROHN'S (takes tresa), IBS, chronic diarrhea, migraines-, hx ulcers, anemia, gout, kidney stones, psori asis, bilateral tinnitis., pinched sciatic nerve, C-Diff 2017, neuropathy, COMPLICATED UTI PYELONEPHRITIS, HEART RATE NORMALLY 50'S History of Any Multi-Drug Resistant Organisms: C-DIFF, MRSA Year Discovered:: stool MDRO Source:: 2017 Past Surgical History: Ablation, Bowel Resection, Cardiac Ablation, Cholecystectomy, Heart Catheterization, Hernia Repair, Joint Replacement, Orthopedic Surgery, Tonsillectomy Additional Past Surgical History / Comment(s): 1/3 of stomach removed (partial gastrectomy), ulcers, bowel resections, fecal transplant 2017, bilateral knee arthroscopic surgery, EGD/colonoscopies, R inguinal hernia repair, bilat cataract removal, TOTAL LEFT KNEE. MULTIPLE CYSTOS, PICC 05/11 Past Anesthesia/Blood Transfusion Reactions: Blood Transfusion Reaction, Motion Sickness Additional Past Anesthesia/Blood Transfusion Reaction / Comm: BLOOD TRANSFUSION- BROKE OUT IN HIVES age 21 Past Psychological History: Anxiety Additional Psychological History / Comment(s): denies Smoking Status: Never smoker Past Alcohol Use History: None Reported, Occasional Additional Past Alcohol Use History / Comment(s): FORMER every other day 2-3 beers per patient. 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 - Past Family History Mother Family Medical History: Pulmonary Embolus Additional Family Medical History / Comment(s): AGE 73-[place], STROKE DURING CARATID PROCEDURE Medications and Allergies Home Medications Medication Instructions Recorded Confirmed Type Orphenadrine Citrate [Orphenadrine 100 mg PO BID 12/08/17 07/29/23 History Citrate ER] Febuxostat [Uloric] 80 mg PO DAILY 05/05/18 07/29/23 History amLODIPine [Norvasc] 10 mg PO DAILY 10/18/20 07/29/23 History Adalimumab [Humira(Cf) Pen] 40 mg SQ Q14D 08/16/22 07/29/23 History Buprenorphine HCl/Naloxone HCl 1 film SL BID 08/16/22 07/29/23 History [Suboxone 2 mg-0.5 mg Sl Film] Diphenox-Atrop 2.5-0.025 mg 2 tab PO ACHS 12/24/22 07/29/23 History [Lomotil] Omeprazole [PriLOSEC] 20 mg PO BID 05/19/23 07/29/23 History Tamsulosin [Flomax] 0.4 mg PO AC-SUPPER 07/29/23 07/29/23 History Allergies Allergy/AdvReac Type Severity Reaction Status Date / Time Iodinated Contrast Media Allergy Anaphylaxis Verified 07/29/23 16:04 [Iodinated Contrast Media - IV Dye] Surgical - Exam Vital Signs Temp Pulse Resp BP Pulse Ox 98.5 F 78 22 170/63 97 07/29/23 13:22 07/29/23 13:22 07/29/23 13:22 07/29/23 13:22 07/29/23 13:22 - General well developed, well nourished, no distress - Eyes normal ocular movement, no icteric - ENT no hearing loss, no congestion - Neck no masses, trachea midline - Respiratory normal respiratory effort, clear to auscultation - Abdomen Abdomen: soft, non tender, no guarding, no rigid, no rebound - Integumentary no rash, no abnormal pigmentation - Neurologic no disoriented, no combative - Psychiatric oriented to time, oriented to person, oriented to place, speech is normal, memory intact Results - Labs 08/01/23 06:21 08/01/23 06:21 Abnormal Lab Results - Last 24 Hours (Table) 07/31/23 08/01/23 08/01/23 Range/Units 10:23 06:21 06:21 RBC 2.83 L (4.40-5.60) X 10*6/uL Hgb 8.3 L (13.0-17.0) g/dL Hct 27.6 L (39.6-50.0) % MCV 97.5 H (80.0-97.0) FL MCHC 30.1 L (32.0-37.0) g/dL RDW 16.1 H (11.5-14.5) % Eosinophils # 0.50 H (0.04-0.35) X 10*3/uL Chloride 113 H (96-109) mmol/L Carbon Dioxide 17.1 L (21.6-31.8) mmol/L BUN 27.3 H (9.0-27.0) mg/dL Creatinine 1.6 H (0.6-1.5) mg/dL Est GFR (CKD-EPI) 45 L (>=60) Calcium 7.5 L (8.7-10.3) mg/dL Crossmatch See Detail Microbiology - Last 24 Hours (Table) 07/29/23 15:55 Blood Culture - Preliminary Blood 07/29/23 15:45 Blood Culture - Preliminary Blood 07/29/23 16:12 Urine Culture - Final Urine,Voided Diabetes panel 08/01/23 Range/Units 06:21 Sodium 138 (135-145) mmol/L Potassium 3.5 (3.5-5.5) mmol/L Chloride 113 H (96-109) mmol/L Carbon Dioxide 17.1 L (21.6-31.8) mmol/L BUN 27.3 H (9.0-27.0) mg/dL Creatinine 1.6 H (0.6-1.5) mg/dL Glucose 101 (70-110) mg/dL Calcium 7.5 L (8.7-10.3) mg/dL Calcium panel 08/01/23 Range/Units 06:21 Calcium 7.5 L (8.7-10.3) mg/dL Pituitary panel 08/01/23 Range/Units 06:21 Sodium 138 (135-145) mmol/L Potassium 3.5 (3.5-5.5) mmol/L Chloride 113 H (96-109) mmol/L Carbon Dioxide 17.1 L (21.6-31.8) mmol/L BUN 27.3 H (9.0-27.0) mg/dL Creatinine 1.6 H (0.6-1.5) mg/dL Glucose 101 (70-110) mg/dL Calcium 7.5 L (8.7-10.3) mg/dL Adrenal panel 08/01/23 Range/Units 06:21 Sodium 138 (135-145) mmol/L Potassium 3.5 (3.5-5.5) mmol/L Chloride 113 H (96-109) mmol/L Carbon Dioxide 17.1 L (21.6-31.8) mmol/L BUN 27.3 H (9.0-27.0) mg/dL Creatinine 1.6 H (0.6-1.5) mg/dL Glucose 101 (70-110) mg/dL Calcium 7.5 L (8.7-10.3) mg/dL - Imaging CT scan - abdomen: report reviewed, image reviewed CT scan - pelvis: report reviewed, image reviewed Assessment and Plan Assessment: Impression: dysuria, urgency, hematuria. kidney stone disease, bph Plan the patients symptoms have subsided. He has kidney stone disease but at the time of the ct scan there were no obvious obstructing stones. His urine is inflammed but the culture was negative. Given the abrupt onset and resolution he may have passed a tiny stone. At this juncture there is nothing that I would do. He should follow with Dr Locke as an op as he is planning on a metabolic work up for the stone disease.
--- NOTE | 2023-08-01 17:15 | P.CONS ---
History of Present Illness - Reason for Consult Consult date: 08/01/23 Crohn's disease Requesting physician: Peter Patten - Chief Complaint Flank pain, difficulty urinating - History of Present Illness This is a pleasant 73-year-old male who presented to the emergency department with complaints of flank pain and difficulty with urination. He has a history of Crohn's disease on Humira and small bowel resection known to gastroenterology. He has followed with Dr. Patten in the past as well for bowel resection. General surgery was consulted for abdominal pain however patient really is not having any abdominal pain or any problems with his Crohn's disease. He denies any rectal bleeding or blood in his stool. He states he last saw Dr. Yancey about 6 months ago. Diarrhea has been well-controlled with his probiotics and Lomotil. States he has 3-4 loose nonbloody bowel movements a day. Denies any nausea or vomiting. He had a CT of the abdomen pelvis without contrast that reported cholecystectomy multiple nonobstructing bilateral renal calcifications, anastomotic bowel sutures in the right lower quadrant, and urinary bladder wall thickening consistent with chronic bladder outlet obstruction. Mild to moderate prostatic hypertrophy. Review of Systems REVIEW OF SYSTEMS: CARDIOPULMONARY: No chest pain or shortness of breath. Gastrointestinal: No abdominal pain. No nausea or vomiting. No hematemesis, coffee-ground emesis. No rectal bleeding, or melena. GENITOURINARY: No dysuria or hematuria. Patient reports flank pain. Difficulty with urination. MUSCULOSKELETAL: Reports normal range of motion., Joint pain. SKIN: No rashes. No jaundice. ENDOCRINE: No chills, fevers. No excessive weight gain or loss. No polydipsia or polyuria. PSYCHIATRIC: Unremarkable. NEUROLOGY: No change in mental status. Denies dizziness, headache. ENT: Vision unremarkable. CONSTITUTIONAL: No recent weight loss. No fever, chills, night sweats. Past Medical History Past Medical History: Atrial Fibrillation, Blood Disorder, Eye Disorder, GERD/Reflux, GI Bleed, Hearing Disorder / Deafness, Hyperlipidemia, Hypertension, Musculoskeletal Disorder, Pneumonia, Rheumatoid Arthritis (RA), Skin Disorder, Supraventricular Tachycardia (SVT) Additional Past Medical History / Comment(s): hx CROHN'S (takes tresa), IBS, chronic diarrhea, migraines-, hx ulcers, anemia, gout, kidney stones, psoriasis, bilateral tinnitis., pinched sciatic nerve, C-Diff 2017, neuropathy, COMPLICATED UTI PYELONEPHRITIS, HEART RATE NORMALLY 50'S History of Any Multi-Drug Resistant Organisms: C-DIFF, MRSA Year Discovered:: stool MDRO Source:: 2016 Past Surgical History: Ablation, Bowel Resection, Cardiac Ablation, Cholecystectomy, Heart Catheterization, Hernia Repair, Joint Replacement, Orthopedic Surgery, Tonsillectomy Additional Past Surgical History / Comment(s): 1/3 of stomach removed (partial gastrectomy), ulcers, bowel resections, fecal transplant 2017, bilateral knee arthroscopic surgery, EGD/colonoscopies, R inguinal hernia repair, bilat cataract removal, TOTAL LEFT KNEE. MULTIPLE CYSTOS, PICC 05/11 Past Anesthesia/Blood Transfusion Reactions: Blood Transfusion Reaction, Motion Sickness Additional Past Anesthesia/Blood Transfusion Reaction / Comm: BLOOD TRANSFUSION- BROKE OUT IN HIVES age 21 Past Psychological History: Anxiety Additional Psychological History / Comment(s): denies Smoking Status: Never smoker Past Alcohol Use History: None Reported, Occasional Additional Past Alcohol Use History / Comment(s): FORMER every other day 2-3 beers per patient. 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 - Past Family History Mother Family Medical History: Pulmonary Embolus Additional Family Medical History / Comment(s): AGE 73-[place], STROKE DURING CARATID PROCEDURE Medications and Allergies Home Medications Medication Instructions Recorded Confirmed Type Orphenadrine Citrate [Orphenadrine 100 mg PO BID 12/08/17 07/29/23 History Citrate ER] Febuxostat [Uloric] 80 mg PO DAILY 05/05/18 07/29/23 History amLODIPine [Norvasc] 10 mg PO DAILY 10/18/20 07/29/23 History Adalimumab [Humira(Cf) Pen] 40 mg SQ Q14D 08/16/22 07/29/23 History Buprenorphine HCl/Naloxone HCl 1 film SL BID 08/16/22 07/29/23 History [Suboxone 2 mg-0.5 mg Sl Film] Diphenox-Atrop 2.5-0.025 mg 2 tab PO ACHS 12/24/22 07/29/23 History [Lomotil] Omeprazole [PriLOSEC] 20 mg PO BID 05/19/23 07/29/23 History Tamsulosin [Flomax] 0.4 mg PO AC-SUPPER 07/29/23 07/29/23 History Allergies Allergy/AdvReac Type Severity Reaction Status Date / Time Iodinated Contrast Media Allergy Anaphylaxis Verified 07/29/23 16:04 [Iodinated Contrast Media - IV Dye] Physical Exam Vitals: Vital Signs Temp Pulse Pulse Resp BP BP BP 08/01/23 07:22 97.6 F 84 16 183/93 171/79 08/01/23 01:07 97.4 F L 60 17 128/62 07/31/23 19:31 97.4 F L 60 15 156/66 07/31/23 16:03 97.8 F 55 L 18 145/71 07/31/23 12:39 97.5 F L 54 L 20 178/68 07/31/23 12:19 97.4 F L 53 L 17 160/64 07/31/23 12:09 97.3 F L 52 L 18 157/66 Pulse Ox 08/01/23 07:22 99 08/01/23 01:07 96 07/31/23 19:31 99 07/31/23 16:03 95 07/31/23 12:39 54 L 07/31/23 12:19 97 07/31/23 12:09 99 Intake and Output 07/31/23 08/01/23 08/01/23 22:59 06:59 14:59 Intake Total 1450 Output Total 200 300 Balance 1450 -200 -300 Intake: Intake, IV Titration 900 Amount Sodium Chloride 0.9% 1, 900 000 ml @ 75 mls/hr IV . [id number] Rx#:[id number] Oral 240 Blood Product 310 Rc As-1 Unit 310 [id number] Output: Urine 200 300 Other: Voiding Method Toilet Urinal # Voids 3 General appearance: The patient is alert, oriented, appears in no acute distress. HET: Head is normocephalic and atraumatic. Conjunctiva pink. Sclera anicteric. Neck: Supple without lymphadenopathy. Trachea midline. Heart: Regular. Lungs: Equal expansion, normal respiratory effort. Abdomen: Soft, nontender, nondistended with bowel sounds. No guarding or rigidity. Skin: No rashes. No jaundice. Extremities: Normal skin color and turgor. No pedal edema. Neurological: No focal deficits. Alert and oriented x3. Results CBC & Chem 7: 08/01/23 06:21 08/01/23 06:21 Labs: Abnormal Lab Results - Last 24 Hours (Table) 07/31/23 08/01/23 08/01/23 Range/Units 10:23 06:21 06:21 RBC 2.83 L (4.40-5.60) X 10*6/uL Hgb 8.3 L (13.0-17.0) g/dL Hct 27.6 L (39.6-50.0) % MCV 97.5 H (80.0-97.0) FL MCHC 30.1 L (32.0-37.0) g/dL RDW 16.1 H (11.5-14.5) % Eosinophils # 0.50 H (0.04-0.35) X 10*3/uL Chloride 113 H (96-109) mmol/L Carbon Dioxide 17.1 L (21.6-31.8) mmol/L BUN 27.3 H (9.0-27.0) mg/dL Creatinine 1.6 H (0.6-1.5) mg/dL Est GFR (CKD-EPI) 45 L (>=60) Calcium 7.5 L (8.7-10.3) mg/dL Crossmatch See Detail Microbiology - Last 24 Hours (Table) 07/29/23 15:55 Blood Culture - Preliminary Blood 07/29/23 15:45 Blood Culture - Preliminary Blood 07/29/23 16:12 Urine Culture - Final Urine,Voided CT scan - abdomen: report reviewed (As stated in HPI) Assessment and Plan (1) Hx of Crohn's disease Narrative/Plan: 73-year-old with longstanding history of Crohn's disease well managed on Humira. Patient presented with flank pain and difficulty with urinating. He has chronic anemia secondary to Crohn's disease and other comorbidities. He is not having any blood in his stool. Again Crohn's has been well-managed on Humira, follows with Dr. Yancey. No further workup indicated. He can follow-up as an outpatient. Current Visit: No Status: Acute Code(s): Z87.19 - PERSONAL HISTORY OF OTHER DISEASES OF THE DIGESTIVE SYSTEM SNOMED Code(s): 616998729097299 (2) Flank pain Current Visit: Yes Status: Acute Code(s): R10.9 - UNSPECIFIED ABDOMINAL PAIN SNOMED Code(s): 866940478 (3) BPH (benign prostatic hyperplasia) Current Visit: Yes Status: Acute Code(s): N40.0 - BENIGN PROSTATIC HYPERPLASIA WITHOUT LOWER URINRY TRACT SYMP SNOMED Code(s): 414347417 (4) Chronic anemia Current Visit: Yes Status: Acute Code(s): D64.9 - ANEMIA, UNSPECIFIED SNOMED Code(s): 977140510 Plan: 1. Continue symptomatic and supportive care 2. Continue with recommendations from urology and nephrology 3. There is no indication for any gastroenterology workup 4. Patient to follow-up with Dr. Yancey in outpatient setting for history of Crohn's Thank you for this consultation, we will sign off at this time. Dr. Elizabeth Yancey I agree with the dictator's note, documented as a scribe by Stacey Mccoy.
--- NOTE | 2023-08-02 08:52 | P.DS ---
Providers Date of admission: 07/29/23 16:10 Attending physician: Minh Saldaña Consults: 07/31/23 12:34 Consult Physician Routine Consulting Provider: Twin Raymundo Consult Reason/Comments: REGGIE Do you want consulting provider notified?: Yes 08/01/23 10:07 Consult Physician Routine Consulting Provider: Rian Locke Consult Reason/Comments: difficulty urinating Do you want consulting provider notified?: Yes 08/01/23 10:13 Consult Physician Routine Consulting Provider: Laura Yancey Consult Reason/Comments: Crohn's, anemia Do you want consulting provider notified?: Already Contacted Primary care physician: Minh Saldaña - Discharge Diagnosis(es) (1) Sepsis Current Visit: Yes Status: Acute (2) Urinary tract infection Current Visit: Yes Status: Acute (3) Abdominal pain Current Visit: No Status: Acute (4) Weakness Current Visit: No Status: Acute (5) Chronic anemia Current Visit: Yes Status: Acute (6) Hypertension Current Visit: No Status: Acute (7) Opiate dependence Current Visit: No Status: Acute Hospital Course: This is a 73-year-old male who presented to the emergency department with compl aints of flank pain. UTI found on admission and patient has been maintained on Rocephin. Patient did have a low hemoglobin of 6.8 during admission and received 1 unit of packed red blood cells. Hemoglobin has stabilized after blood transfusion. He was seen and evaluated by gastroenterology who is not recommending a further GI workup. Kidney function decreased during admission and he was seen and evaluated by nephrology. Patient also evaluated by urology who is not recommending any further workup at this time. Patient reports he has been urinating regularly. He is tolerating diet. He feels he is ready to go home. Will discharge patient today will finish Ceftin for UTI. Patient seen and evaluated by nurse practitioner, physician in agreement with plan Plan - Discharge Summary Discharge Rx Participant: No New Discharge Prescriptions: New cefUROXime axetiL [Ceftin] 500 mg PO BID 7 Days #14 tab Continue Orphenadrine Citrate [Orphenadrine Citrate ER] 100 mg PO BID Febuxostat [Uloric] 80 mg PO DAILY amLODIPine [Norvasc] 10 mg PO DAILY Adalimumab [Humira(Cf) Pen] 40 mg SQ Q14D Buprenorphine HCl/Naloxone HCl [Suboxone 2 mg-0.5 mg Sl Film] 1 film SL BID Omeprazole [PriLOSEC] 20 mg PO BID Tamsulosin [Flomax] 0.4 mg PO AC-SUPPER Discontinued Diphenox-Atrop 2.5-0.025 mg [Lomotil] 2 tab PO ACHS Discharge Medication List Orphenadrine Citrate [Orphenadrine Citrate ER] 100 mg PO BID 12/08/17 [History] Febuxostat [Uloric] 80 mg PO DAILY 05/05/18 [History] amLODIPine [Norvasc] 10 mg PO DAILY 10/18/20 [History] Adalimumab [Humira(Cf) Pen] 40 mg SQ Q14D 08/16/22 [History] Buprenorphine HCl/Naloxone HCl [Suboxone 2 mg-0.5 mg Sl Film] 1 film SL BID 08/16/22 [History] Omeprazole [PriLOSEC] 20 mg PO BID 05/19/23 [History] Tamsulosin [Flomax] 0.4 mg PO AC-SUPPER 07/29/23 [History] cefUROXime axetiL [Ceftin] 500 mg PO BID 7 Days #14 tab 08/02/23 [Rx] Follow up Appointment(s)/Referral(s): Minh Saldaña MD [Primary Care Provider] - 3 Days Activity/Diet/Wound Care/Special Instructions: repeat CBC and CMP at follow-up appointment Discharge Disposition: HOME SELF-CARE
[2023-08-02 12:26] LABS: HCT 24.4 % (39.6-50.0); HGB 7.3 g/dL (13.0-17.0); MCH 29.4 pg (27.0-32.0); MCHC 29.9 g/dL (32.0-37.0); MCV 98.4 FL (80.0-97.0); Mean Platelet Volume 11.4 FL (9.5-12.2); NRBC Per 100 WBC 0 X 10*3/uL (0.00-0.01); Platelet Count 231 X 10*3/uL (140-440); RBC 2.48 X 10*6/uL (4.40-5.60); RDW 16.2 % (11.5-14.5); WBC 5.81 X 10*3/uL (4.50-10.00)
--- NOTE | 2023-08-02 12:29 | P.PN ---
Subjective patient is seen for follow-up for acute kidney injury. Currently maintained on IV fluids. Overall patient states he is feeling better and wants to go home. Patient is tolerating oral intake. Labs are pending from today. Objective - Vital Signs Vital signs: Vital Signs Temp 98.2 F 08/02/23 07:43 Pulse 53 L 08/02/23 10:50 Resp 14 08/02/23 08:30 BP 170/70 08/02/23 10:50 Pulse Ox 99 08/02/23 07:43 FiO2 Intake & Output 08/01/23 08/02/23 08/02/23 18:59 06:59 18:59 Output Total 450 375 175 Balance -450 -375 -175 Output: Urine 450 375 175 Other: Voiding Method Toilet Toilet Toilet # Voids 2 1 # Bowel Movements 1 - Exam patient is awake, comfortable, no acute distress Examination of the heart S1 and S2 Examination of the lungs bilateral breath sounds are heard Abdomen is soft nontender Examination of lower extremities shows no significant edema [employer] exam grossly intact - Labs CBC & Chem 7: 08/02/23 07:51 08/01/23 06:21 Labs: Abnormal Lab Results - Last 24 Hours (Table) 08/02/23 Range/Units 07:51 RBC 2.48 L (4.40-5.60) X 10*6/uL Hgb 7.3 L (13.0-17.0) g/dL Hct 24.4 L (39.6-50.0) % MCV 98.4 H (80.0-97.0) FL MCHC 29.9 L (32.0-37.0) g/dL RDW 16.2 H (11.5-14.5) % Microbiology - Last 24 Hours (Table) 07/29/23 15:55 Blood Culture - Preliminary Blood 07/29/23 15:45 Blood Culture - Preliminary Blood Assessment and Plan Assessment: 1. Acute kidney injury, ATN currently nonoliguric secondary to underlying infection. Blood pressure is not noted to be low. rule out urine retention. Computed tomography scan of the abdomen and pelvis shows diffuse thickening of the urinary bladder wall. 2. Nephrolithiasis with bilateral nonobstructive renal calculi with largest calcification at 6 mm on the left. 3. UTI maintained on antibiotics, urine culture is pending 4. Anemia with hemoglobin at 6.8 g/dL status postpacked RBCs transfusion. No active bleeding noted. 5. Non-gap metabolic acidosis associated with acute kidney injury and possibly underlying obstructive uropathy with bladder outlet obstruction 6. History of Crohn's disease with previous marginal ulceration requiring replacement Plan: awaiting results of labs from today to decide about discharge. currently maintained on IV bicarb. Patient is advised to maintain adequate oral intake including fluids. Repeat labs as outpatient in 3-4 days post discharge.
[2023-08-02 12:38] LABS: ALT 26 U/L (10-49); AST 32 U/L (14-35); Albumin 2.3 g/dL (3.8-4.9); Alkaline Phosphatase 81 U/L (41-126); BUN/Creat Ratio 20.64 Ratio (12.00-20.00); Blood Urea Nitrogen 28.9 mg/dL (9.0-27.0); Calcium 7.6 mg/dL (8.7-10.3); Carbon Dioxide 20.3 mmol/L (21.6-31.8); Chloride 108 mmol/L (96-109); Globulin 2.3 g/dL (1.6-3.3); Glucose 104 mg/dL (70-110); Potassium 3.9 mmol/L (3.5-5.5); Sodium 139 mmol/L (135-145); Total Bilirubin <0.2 mg/dL (0.3-1.2); Total Protein 4.6 g/dL (6.2-8.2)
[2023-08-02 13:13] VITALS: BP 159/67; PULSE 62; RESP 18; TEMP 98.1
[2023-08-02 13:56] VITALS: BMI 17.9
--- NOTE | 2023-08-03 10:02 | CDI ---
Documentation Clarification Form Date: 08/03/2023 09:51:46 AM From: Sasha Beck Admit Date: 07/29/2023 04:10:00 PM Patient Name: Silvano Rajan Visit Number: [id number] Discharge Date: 08/02/2023 03:00:00 PM ATTENTION: The Clinical Documentation Specialists (CDI) and [facility] Coding Staff appreciate your assistance in clarifying documentation. Please respond to the clarification below the line at the bottom and electronically sign. The CDI & [facility] Coding staff will review the response and follow-up if needed. Please note: Queries are made part of the Legal Health Record. If you have any questions, please contact the author of this message via ITS. Dr. Minh Saldaña Conflicting documentation has been found in the medical record. As attending physician, please provide clarification. Per your 07/31 query response Sepsis is ruled out Per DCS Discharge Diagnosis number 1 diagnosis is Sepsis History/Risk Factors: Patient with UTI Clinical Indicators: WBC 12.9 Treatment: Ceftriaxone 2 gm. IVPB Please clarify which diagnosis is most appropriate: [ ] Sepsis POA [ x ] Sepsis ruled out [ ] Other (please specify) [ ] Unable to determine MTDD
== END 2023-08-02 15:00 | disposition home or self-care (01) | DRG 689 ==
LOC: EC 13:20 → 5NMEDONC 16:10
PROVIDERS: ADMIT Family Medicine; ATTEND Family Medicine
DX: N39.0 Urinary tract infection, site not specified (principal); N17.0 Acute kidney failure with tubular necrosis; F11.20 Opioid dependence, uncomplicated; I47.10 Supraventricular tachycardia, unspecified; I48.20 Chronic atrial fibrillation, unspecified; K50.918 Crohn's disease, unspecified, with other complication; I10 Essential (primary) hypertension; Z90.3 Acquired absence of stomach [part of]; Z90.49 Acquired absence of other specified parts of digestive tract; Z87.11 Personal history of peptic ulcer disease; N40.1 Benign prostatic hyperplasia with lower urinary tract symptoms; R39.15 Urgency of urination; G62.9 Polyneuropathy, unspecified; D63.8 Anemia in other chronic diseases classified elsewhere; M10.9 Gout, unspecified; M06.9 Rheumatoid arthritis, unspecified; E78.5 Hyperlipidemia, unspecified; H57.9 Unspecified disorder of eye and adnexa; G43.909 Migraine, unspecified, not intractable, without status migrainosus; K21.9 Gastro-esophageal reflux disease without esophagitis; N32.0 Bladder-neck obstruction; L40.9 Psoriasis, unspecified; N20.0 Calculus of kidney; E86.0 Dehydration; F41.9 Anxiety disorder, unspecified; H91.90 Unspecified hearing loss, unspecified ear; H93.13 Tinnitus, bilateral; Z71.3 Dietary counseling and surveillance; Z91.041 Radiographic dye allergy status; Z87.440 Personal history of urinary (tract) infections; Z86.14 Personal history of Methicillin resistant Staphylococcus aureus infection; Z87.442 Personal history of urinary calculi; Z87.01 Personal history of pneumonia (recurrent); Z87.898 Personal history of other specified conditions; Z79.899 Other long term (current) drug therapy; Z79.620 Long term (current) use of immunosuppressive biologic
CPT/HCPCS: 36415; 74018; 74176; 80048; 80053; 81001; 82150; 82272; 83605; 83690; 85025; 85027; 85610; 85730; 86850; 86900; 86901; 86920; 87040; 87086; 96361; 96374; 96375; 99291

== ENCOUNTER 2023-08-20 20:46 | Inpatient (IN) | payer BC, MEDICARE ==
--- NOTE | 2023-08-20 21:12 | ED ---
General Adult HPI - General Source: patient, RN notes reviewed Mode of arrival: ambulatory Limitations: no limitations <Susie Dietrich - Last Filed: 08/20/23 21:12> - General Source: patient, RN notes reviewed Mode of arrival: ambulatory Limitations: no limitations <Jaime Grullon - Last Filed: 08/22/23 05:19> - General Chief complaint: Recheck/Abnormal Lab/Rx Stated complaint: Abnormal labs, kidney pain Time Seen by Provider: 08/20/23 21:10 - History of Present Illness Initial comments: Quick note: 73-year-old male presents to the emergency department for evaluation of possible urinary tract infection. He states that recently had an infected kidney stone. He states that he continues to have urinary symptoms. Patient also reports that he had recent lab work drawn and was called because his potassium was elevated although he is not sure what it was. (Susie Dietrich) - Related Data Home Medications Medication Instructions Recorded Confirmed Orphenadrine Citrate [Orphenadrine 100 mg PO BID 12/08/17 08/21/23 Citrate ER] Febuxostat [Uloric] 80 mg PO DAILY 05/05/18 08/21/23 amLODIPine [Norvasc] 10 mg PO DAILY 10/18/20 08/21/23 Adalimumab [Humira(Cf) Pen] 40 mg SQ Q14D 08/16/22 08/21/23 Buprenorphine HCl/Naloxone HCl 1 film SL BID 08/16/22 08/21/23 [Suboxone 2 mg-0.5 mg Sl Film] Omeprazole [PriLOSEC] 20 mg PO BID 05/19/23 08/21/23 Tamsulosin [Flomax] 0.4 mg PO AC-SUPPER 07/29/23 08/21/23 Ciprofloxacin HCl [Cipro] 500 mg PO Q12HR 08/21/23 08/21/23 Previous Rx's Medication Instructions Recorded Sodium Bicarbonate Tab 650 mg PO BID #60 tablet 08/02/23 Allergies Allergy/AdvReac Type Severity Reaction Status Date / Time Iodinated Contrast Media Allergy Anaphylaxis Verified 08/21/23 11:04 [Iodinated Contrast Media - IV Dye] Review of Systems ROS Other: All systems not noted in ROS Statement are negative. <Susie Dietrich - Last Filed: 08/20/23 21:12> ROS Other: All systems not noted in ROS Statement are negative. <Jaime Grullon - Last Filed: 08/22/23 05:19> ROS Statement: Those systems with pertinent positive or pertinent negative responses have been documented in the HPI. Past Medical History Past Medical History: Atrial Fibrillation, Blood Disorder, Eye Disorder, GERD/Reflux, GI Bleed, Hearing Disorder / Deafness, Hyperlipidemia, Hypertension, Musculoskeletal Disorder, Pneumonia, Rheumatoid Arthritis (RA), Skin Disorder, Supraventricular Tachycardia (SVT) Additional Past Medical History / Comment(s): hx CROHN'S (takes tresa), IBS, chronic diarrhea, migraines-, hx ulcers, anemia, gout, kidney stones, psoriasis, bilateral tinnitis., pinched sciatic nerve, C-Diff 2017, neuropathy, COMPLICATED UTI PYELONEPHRITIS, HEART RATE NORMALLY 50'S History of Any Multi-Drug Resistant Organisms: C-DIFF, MRSA Date of last positivie culture/infection: stool MDRO Source:: 2017 Past Surgical History: Ablation, Bowel Resection, Cardiac Ablation, Cholecystectomy, Heart Catheterization, Hernia Repair, Joint Replacement, Orthopedic Surgery, Tonsillectomy Additional Past Surgical History / Comment(s): 1/3 of stomach removed (partial gastrectomy), ulcers, bowel resections, fecal transplant 2016, bilateral knee arthroscopic surgery, EGD/colonoscopies, R inguinal hernia repair, bilat cataract removal, TOTAL LEFT KNEE. MULTIPLE CYSTOS, PICC 05/11 Past Anesthesia/Blood Transfusion Reactions: Blood Transfusion Reaction, Motion Sickness Additional Past Anesthesia/Blood Transfusion Reaction / Comment(s): BLOOD TRANSFUSION- BROKE OUT IN HIVES age 21 Past Psychological History: Anxiety Smoking Status: Never smoker Past Alcohol Use History: None Reported, Occasional Past Drug Use History: None Reported - Past Family History Mother Family Medical History: Pulmonary Embolus Additional Family Medical History / Comment(s): AGE 73-[place], STROKE DURING CARATID PROCEDURE <Susie Dietrich - Last Filed: 08/20/23 21:12> General Exam Limitations: no limitations <Susie Dietrich - Last Filed: 08/20/23 21:12> Limitations: no limitations General appearance: alert, in no apparent distress Head exam: Present: atraumatic, normocephalic Eye exam: Present: normal appearance. Absent: scleral icterus, conjunctival injection ENT exam: Present: normal oropharynx Neck exam: Present: normal inspection Respiratory exam: Present: normal lung sounds bilaterally. Absent: respiratory distress, wheezes, rales, rhonchi, stridor Cardiovascular Exam: Present: irregular rhythm, normal heart sounds. Absent: systolic murmur, diastolic murmur, rubs, gallop GI/Abdominal exam: Present: soft. Absent: distended, tenderness, guarding, rebound, rigid, mass Extremities exam: Present: normal inspection, normal capillary refill. Absent: pedal edema, calf tenderness Back exam: Present: normal inspection. Absent: CVA tenderness (R), CVA tendern ess (L) Neurological exam: Present: alert Skin exam: Present: warm, dry, intact, normal color. Absent: rash <Jaime Grullon - Last Filed: 08/22/23 05:19> - General Exam Comments Initial Comments: Visual Physical Exam Vital signs reviewed General: Well-appearing, nontoxic, no acute distress. Head: Normocephalic, atraumatic Eyes: PERRLA, EOMI ENT: Airway patent Chest: Nonlabored breathing Skin: No visual rash, normal skin tone Neuro: Alert and oriented 3 Musculoskeletal: No gross abnormalities (Kulka,Susie) Course Vital Signs 08/20/23 08/20/23 08/20/23 20:54 21:28 22:40 Temperature 98 F Pulse Rate 97 66 68 Pulse Rate [ Left] Respiratory 18 18 18 Rate Blood Pressure 181/83 178/82 154/84 Blood Pressure [Left Arm] O2 Sat by Pulse 98 100 99 Oximetry 08/20/23 08/21/23 08/21/23 23:30 01:00 03:00 Temperature Pulse Rate 103 H 70 83 Pulse Rate [ Left] Respiratory 18 17 18 Rate Blood Pressure 166/72 159/73 192/77 Blood Pressure [Left Arm] O2 Sat by Pulse 99 99 99 Oximetry 08/21/23 07:00 Temperature 97.4 F L Pulse Rate Pulse Rate [ 57 L Left] Respiratory 16 Rate Blood Pressure Blood Pressure 180/82 [Left Arm] O2 Sat by Pulse 98 Oximetry EKG Findings - EKG Results: EKG: interpreted by ERMD, sinus rhythm (Alternating with atrial bigeminy rate 71 bpm) - Blocks, [place], Hypertrophy, ST Abn: AV and intraventricular conduction: 1 AV block, right bundle branch block (fixed/intermittent, complete/incomplete), left anterior fascicular block Chamber hypertrophy or enlargement: left ventricular hypertrophy or enlargement (LVE) <TripJaime forbes - Last Filed: 08/22/23 05:19> Medical Decision Making <Susie Dietrich - Last Filed: 08/20/23 21:12> - Lab Data Result diagrams: 08/20/23 20:59 08/21/23 07:31 <MitchelJaime - Last Filed: 08/22/23 05:19> - Medical Decision Making Quick note performed and electronically signed by Susie Dietrich PA-C (Susie Dietrich) The patient had CT scan of the abdomen and pelvis which I interpreted as not showing obstructing kidney stone. No free air or obstruction. No acute surgical condition. This patient is 73-year-old man here to have evaluation for flank pain and urinary symptoms. The patient's workup includes labs consistent with urinary tract infection and acute kidney injury. The patient's CAT scan does not reveal obstructing stone. The patient will be admitted given the acute kidney injury to ensure that his kidney function is recovering. Antibiotics and fluids started. Was pt. sent in by a medical professional or institution (HOME Lou, JAZZ MUSICIAN, urgent care, hospital, or detention...) When possible be specific @ -[Yes patient received call directing him to have further evaluation for abnormal potassium level Did you speak to anyone other than the patient for history (EMS, parent, family, police, friend...)? What history was obtained from this source @ -[No] Did you review nursing and triage notes (agree or disagree)? Why? @ -[I reviewed and agree with nursing and triage notes] Were old charts reviewed (outside hosp., previous admission, EMS record, old EKG, old radiological studies, urgent care reports/EKG's, detention records)? Report findings @ -[Yes old charts were reviewed Differential Diagnosis (chest pain, altered mental status, abdominal pain women, abdominal pain men, vaginal bleeding, weakness, fever, dyspnea, syncope, headache, dizziness, GI bleed, back pain, seizure, CVA, palpatations, mental health, musculoskeletal)? @ -[Differential Abdominal Pain Men: Appendicitis, cholecystitis, diverticulosis, ischemic bowel, pancreatitis, hepatitis, UTI, gastroenteritis, AAA, incarcerated hernia, bowel obstruction, constipation, inflammatory bowel, hepatitis, peptic ulcer disease, splenic infarction, perforated viscus, testicular torsion, this is not meant to be an all-inclusive list EKG interpreted by me (3pts min.). @ -[I interpreted as above X-rays interpreted by me (1pt min.). @ -[None done] CT interpreted by me (1pt min.). @ -[I interpreted as above U/S interpreted by me (1pt. min.). @ -[None done] What testing was considered but not performed or refused? (CT, X-rays, U/S, labs)? Why? @ -[None] What meds were considered but not given or refused? Why? @ -[None] Did you discuss the management of the patient with other professionals (professionals i.e. , PA, JAZZ MUSICIAN, lab, RT, psych nurse, vp digital marketing social media and crm, predatory hunter, teacher, police or patrol park officer, director of casework department)? Give summary @ -[Case discussed with admitting service and treatment recommendations are incorporated Was smoking cessation discussed for >3mins.? @ -[No] Was critical care preformed (if so, how long)? @ -[No] Were there social determinants of health that impacted care today? How? (Homelessness, low income, unemployed, alcoholism, drug addiction, transportation, low edu. Level, literacy, decrease access to med. care, shelter, rehab)? @ -[No] Was there de-escalation of care discussed even if they declined (Discuss DNR or withdrawal of care, Hospice)? DNR status @ -[No] What co-morbidities impacted this encounter? (DM, HTN, Smoking, COPD, CAD, Cancer, CVA, ARF, Chemo, Hep., AIDS, mental health diagnosis, sleep apnea, morbid obesity)? @ -[History of previous kidney stones. Hypertension Was patient admitted / discharged? Hospital course, mention meds given and route, prescriptions, significant lab abnormalities, going to OR and other pertinent info. @ -[See above Undiagnosed new problem with uncertain prognosis? @ -[No] Drug Therapy requiring intensive monitoring for toxicity (Heparin, Nitro, Insulin, Cardizem)? @ -[No] Were any procedures done? @ -[No] Diagnosis/symptom? @ -[Acute urinary tract infection Acute kidney injury Acute, or Chronic, or Acute on Chronic? @ -[Acute Uncomplicated (without systemic symptoms) or Complicated (systemic symptoms)? @ -[Uncomplicated Side effects of treatment? @ -[No] Exacerbation, Progression, or Severe Exacerbation? @ -[No] Poses a threat to life or bodily function? How? (Chest pain, [place], [place], pneumonia, PE, COPD, DKA, ARF, appy, cholecystitis, CVA, Diverticulitis, Homicidal, Suicidal, threat to staff... and all critical care pts) @ -[No] (Jaime Grullon) - Lab Data Lab Results 08/20/23 08/20/23 08/20/23 Range/Units 20:59 20:59 20:59 WBC 6.0 (3.8-10.6) k/uL RBC 2.62 L (4.30-5.90) m/uL Hgb 8.1 L (13.0-17.5) gm/dL Hct 27.6 L (39.0-53.0) % MCV 105.5 H (80.0-100.0) fL MCH 31.0 (25.0-35.0) pg MCHC 29.4 L (31.0-37.0) g/dL RDW 16.1 H (11.5-15.5) % Plt Count 297 (150-450) k/uL MPV 7.1 Neutrophils % 55 % Lymphocytes % 27 % Monocytes % 6 % Eosinophils % 9 % Basophils % 1 % Neutrophils # 3.3 (1.3-7.7) k/uL Lymphocytes # 1.6 (1.0-4.8) k/uL Monocytes # 0.4 (0-1.0) k/uL Eosinophils # 0.5 (0-0.7) k/uL Basophils # 0.1 (0-0.2) k/uL Hypochromasia Marked Anisocytosis Slight Macrocytosis Moderate Sodium 139 (137-145) mmol/L Potassium 5.1 (3.5-5.1) mmol/L Chloride 121 H (98-107) mmol/L Carbon Dioxide 11 L (22-30) mmol/L Anion Gap 7 mmol/L BUN 24 H (9-20) mg/dL Creatinine 2.17 H (0.66-1.25) mg/dL Est GFR (CKD-EPI)AfAm 34 (>60 ml/min/1.73 sqM) Est GFR (CKD-EPI)NonAf 29 (>60 ml/min/1.73 sqM) Glucose 83 (74-99) mg/dL Plasma Lactic Acid Kal (0.7-2.0) mmol/L Calcium 8.2 L (8.4-10.2) mg/dL Total Bilirubin 0.2 (0.2-1.3) mg/dL AST 34 (17-59) U/L ALT 28 (4-49) U/L Alkaline Phosphatase 83 (38-126) U/L Total Protein 5.9 L (6.3-8.2) g/dL Albumin 2.5 L (3.5-5.0) g/dL Urine Color Colorless Urine Appearance Turbid (Clear) Urine pH 6.5 (5.0-8.0) Ur Specific [place] 1.018 (1.001-1.035) Urine Protein 2+ H (Negative) Urine Glucose (UA) Negative (Negative) Urine Ketones Negative (Negative) Urine Blood Moderate H (Negative) Urine Nitrite Negative (Negative) Urine Bilirubin Negative (Negative) Urine Urobilinogen <2.0 (<2.0) mg/dL Ur Leukocyte Esterase Large H (Negative) Urine RBC 47 H (0-5) /hpf Urine WBC >182 H (0-5) /hpf Urine WBC Clumps Many H (None) /hpf Urine Bacteria Moderate H (None) /hpf 08/20/23 Range/Units 20:59 WBC (3.8-10.6) k/uL RBC (4.30-5.90) m/uL Hgb (13.0-17.5) gm/dL Hct (39.0-53.0) % MCV (80.0-100.0) fL MCH (25.0-35.0) pg MCHC (31.0-37.0) g/dL RDW (11.5-15.5) % Plt Count (150-450) k/uL MPV Neutrophils % % Lymphocytes % % Monocytes % % Eosinophils % % Basophils % % Neutrophils # (1.3-7.7) k/uL Lymphocytes # (1.0-4.8) k/uL Monocytes # (0-1.0) k/uL Eosinophils # (0-0.7) k/uL Basophils # (0-0.2) k/uL Hypochromasia Anisocytosis Macrocytosis Sodium (137-145) mmol/L Potassium (3.5-5.1) mmol/L Chloride (98-107) mmol/L Carbon Dioxide (22-30) mmol/L Anion Gap mmol/L BUN (9-20) mg/dL Creatinine (0.66-1.25) mg/dL Est GFR (CKD-EPI)AfAm (>60 ml/min/1.73 sqM) Est GFR (CKD-EPI)NonAf (>60 ml/min/1.73 sqM) Glucose (74-99) mg/dL Plasma Lactic Acid Kal 0.9 (0.7-2.0) mmol/L Calcium (8.4-10.2) mg/dL Total Bilirubin (0.2-1.3) mg/dL AST (17-59) U/L ALT (4-49) U/L Alkaline Phosphatase (38-126) U/L Total Protein (6.3-8.2) g/dL Albumin (3.5-5.0) g/dL Urine Color Urine Appearance (Clear) Urine pH (5.0-8.0) Ur Specific [place] (1.001-1.035) Urine Protein (Negative) Urine Glucose (UA) (Negative) Urine Ketones (Negative) Urine Blood (Negative) Urine Nitrite (Negative) Urine Bilirubin (Negative) Urine Urobilinogen (<2.0) mg/dL Ur Leukocyte Esterase (Negative) Urine RBC (0-5) /hpf Urine WBC (0-5) /hpf Urine WBC Clumps (None) /hpf Urine Bacteria (None) /hpf Disposition <Susie Dietrich - Last Filed: 08/20/23 21:12> <Jaime Grullon - Last Filed: 08/22/23 05:19> Clinical Impression: Acute kidney injury, Urinary tract infection, Hypertension Disposition: ADMITTED IP TO THIS HOSP Condition: Fair
[2023-08-20 21:25] LABS: Anisocytosis Slight; Basophils # (A) 0.1 k/uL (0-0.2); Basophils % (A) 1 %; Eosinophils # (A) 0.5 k/uL (0-0.7); Eosinophils % (A) 9 %; HCT 27.6 % (39.0-53.0); HGB 8.1 gm/dL (13.0-17.5); Hypochromasia Marked; Lymphocytes # (A) 1.6 k/uL (1.0-4.8); Lymphocytes % (A) 27 %; MCHC 29.4 g/dL (31.0-37.0); MCV 105.5 fL (80.0-100.0); Macrocytosis Moderate; Mean Platelet Volume 7.1; Monocytes # (A) 0.4 k/uL (0-1.0); Monocytes % (A) 6 %; Neutrophils # (A) 3.3 k/uL (1.3-7.7); Neutrophils % (A) 55 %; Platelet Count 297 k/uL (150-450); RBC 2.62 m/uL (4.30-5.90); RDW 16.1 % (11.5-15.5)
[2023-08-20] MEDS: MORPHINE SULFATE 4 MG/ML SYRINGE IV STA ×2 (21:34→23:34)
[2023-08-20 21:44] LABS: Appearance,Urine Turbid (Clear); Bacteria,Urine Moderate /hpf; Bilirubin,Urine Negative (Negative); Blood,Urine Moderate (Negative); Color,Urine Colorless; Glucose,Urine (UA) Negative (Negative); Ketones,Urine Negative (Negative); Leukocyte Esterase,Urine Large (Negative); Nitrite,Urine Negative (Negative); PH, Urine 6.5 (5.0-8.0); Protein,Urine 2+ (Negative); RBC,Urine 47 /hpf (0-5); Specific Gravity,Urine 1.018 (1.001-1.035); Urobilinogen,Urine <2.0 mg/dL (<2.0); WBC,Urine >182 /hpf (0-5)
[2023-08-20 21:46] LABS: ALT 28 U/L (4-49); AST 34 U/L (17-59); African American GFR (CKD) 34 (>60 ml/min/1.73 sqM); Albumin 2.5 g/dL (3.5-5.0); Alkaline Phosphatase 83 U/L (38-126); Anion Gap 7 mmol/L; Blood Urea Nitrogen 24 mg/dL (9-20); Calcium 8.2 mg/dL (8.4-10.2); Carbon Dioxide 11 mmol/L (22-30); Chloride 121 mmol/L (98-107); Glucose 83 mg/dL (74-99); Non-African American GFR(CKD) 29 (>60 ml/min/1.73 sqM); Potassium 5.1 mmol/L (3.5-5.1); Sodium 139 mmol/L (137-145); Total Bilirubin 0.2 mg/dL (0.2-1.3); Total Protein 5.9 g/dL (6.3-8.2)
[2023-08-20] MEDS: SODIUM CHLORIDE 0.9% 500 ML 500 ML IV STA (23:34)
[2023-08-20] MEDS: SODIUM CHLORIDE 0.9% 1,000 ML IV STA (23:34)
[2023-08-20] MEDS: LEVOFLOXACIN 750MG-D5W PMX 750 MG in DEXTROSE/WATER 1 150ML.BAG IVPB STA (23:34)
--- NOTE | 2023-08-21 00:31 | CT ---
EXAM: CT Abdomen and Pelvis Without Intravenous Contrast CLINICAL HISTORY: ITS.REASON CT Reason: right flank pain TECHNIQUE: Axial computed tomography images of the abdomen and pelvis without intravenous contrast. CTDI is 6.7 mGy and DLP is 388.8 mGy-cm. This CT exam was performed using one or more of the following dose reduction techniques: automated exposure control, adjustment of the mA and/or kV according to patient size, and/or use of iterative reconstruction technique. COMPARISON: No relevant prior studies available. FINDINGS: Lung bases: Unremarkable. No mass. No consolidation. ABDOMEN: Liver: Unremarkable. Gallbladder and bile ducts: Unremarkable. No calcified stones. No ductal dilation. Pancreas: Unremarkable. No ductal dilation. Spleen: Calcified splenic granulomas. Adrenals: Unremarkable. No mass. Kidneys and ureters: Multiple (approximately 20) bilateral nonobstructing renal stones. Stomach and bowel: Partial RIGHT hemicolectomy. No obstruction. PELVIS: Appendix: See above. Bladder: Severe wall thickening of the urinary bladder, concerning for UTI. No stones. Reproductive: Unremarkable as visualized. ABDOMEN and PELVIS: Intraperitoneal space: Unremarkable. No free air. No significant fluid collection. Bones/joints: Degenerative changes of the spine. No acute fracture. No dislocation. Soft tissues: Unremarkable. Vasculature: Atherosclerotic changes of the aorta. No abdominal aortic aneurysm. Lymph nodes: Unremarkable. No enlarged lymph nodes. IMPRESSION: 1. Severe wall thickening of the urinary bladder, concerning for UTI. 2. Multiple (approximately 20) bilateral nonobstructing renal stones.
[2023-08-21] MEDS ORDERED: NALOXONE 0.4 MG/ML 1 ML VIAL IV PRN (01:02)
[2023-08-21] MEDS ORDERED: ACETAMINOPHEN TAB 325 MG TAB PO PRN (01:02)
[2023-08-21] MEDS: SODIUM CHLORIDE 0.9% 1,000 ML IV SCH (01:30)
[2023-08-21] MEDS: METHADONE 5 MG TAB PO STA (04:22)
[2023-08-21 07:59] LABS: African American GFR (CKD) 46 (>60 ml/min/1.73 sqM); Anion Gap 5 mmol/L; Blood Urea Nitrogen 24 mg/dL (9-20); Calcium 8.1 mg/dL (8.4-10.2); Carbon Dioxide 11 mmol/L (22-30); Chloride 121 mmol/L (98-107); Glucose 95 mg/dL (74-99); Magnesium 1.2 mg/dL (1.6-2.3); Non-African American GFR(CKD) 40 (>60 ml/min/1.73 sqM); Potassium 4.8 mmol/L (3.5-5.1); Sodium 137 mmol/L (137-145)
[2023-08-21] MEDS ORDERED: Magnesium Replacement Protocol 1 EACH MISC MISCELLANE PRN (08:33)
[2023-08-21] MEDS ORDERED: FAMOTIDINE 20 MG TAB PO SCH (09:00)
[2023-08-21] MEDS: FAMOTIDINE 20 MG TAB PO SCH (09:01)
[2023-08-21] MEDS: MAGNESIUM SULFATE-D5W PMX 1 GM in DEXTROSE/WATER 1 100ML.BAG IVPB SCH (09:01)
[2023-08-21] MEDS: amLODIPine 10 MG TAB PO SCH (09:47)
[2023-08-21] MEDS: SODIUM BICARBONATE TAB 650 MG TAB PO SCH (09:48)
[2023-08-21] MEDS ORDERED: hydrALAZINE HCL 20 MG/ML 1 ML VIAL IVP PRN (10:56)
--- NOTE | 2023-08-21 10:58 | P.NPCON ---
History of Present Illness - Reason for Consult acute renal failure - History of Present Illness Reason for consultation: Acute kidney injury History of present illness: Patient is a 73-year-old male seen in renal consultation for acute kidney injury. Patient's creatinine dated May 05, 2023 was 0.92. Patient did develop acute kidney injury in July 2023 due to obstructive uropathy and infection with creatinine up to 2.1. It was improved to 1.4 dated August 02, 2023. Patient states he completed the antibiotics but still had dysuria and urinary frequency. Creatinine this admission was 2.17 and is improved to 1.69 today. He is currently receiving IV fluids. CAT scan of the abdomen and pelvis showed bilateral nonobstructing nephrolithiasis. Patient has history of Crohn's disease and admits to chronic diarrhea. Patient noted to be quite acidotic with a bicarb level of 11. Blood pressure is on the higher side. Patient is on room air. No edema. Denies use of nonsteroidals. Denies family history of renal disease. No history of coronary artery disease. No history of diabetes. No chest pain or shortness of breath. Afebrile. Vital signs are stable. General: No acute distress. HEENT: Head exam is unremarkable. LUNGS: No audible rhonchi or wheezes. HEART: Rate and Rhythm are regular. ABDOMEN: Nontender. EXTREMITITES: No edema. Past Medical History Past Medical History: Atrial Fibrillation, Blood Disorder, Eye Disorder, GERD/Reflux, GI Bleed, Hearing Disorder / Deafness, Hyperlipidemia, Hypertension, Musculoskeletal Disorder, Pneumonia, Rheumatoid Arthritis (RA), Skin Disorder, Supraventricular Tachycardia (SVT) Additional Past Medical History / Comment(s): hx CROHN'S (takes tresa), IBS, chronic diarrhea, migraines-, hx ulcers, anemia, gout, kidney stones, psoriasis, bilateral tinnitis., pinched sciatic nerve, C-Diff 2017, neuropathy, COMPLICATED UTI PYELONEPHRITIS, HEART RATE NORMALLY 50'S History of Any Multi-Drug Resistant Organisms: C-DIFF, MRSA Date of last positivie culture/infection: stool MDRO Source:: 2017 Past Surgical History: Ablation, Bowel Resection, Cardiac Ablation, Cholecyste ctomy, Heart Catheterization, Hernia Repair, Joint Replacement, Orthopedic Surgery, Tonsillectomy Additional Past Surgical History / Comment(s): 1/3 of stomach removed (partial gastrectomy), ulcers, bowel resections, fecal transplant 2017, bilateral knee arthroscopic surgery, EGD/colonoscopies, R inguinal hernia repair, bilat cataract removal, TOTAL LEFT KNEE. MULTIPLE CYSTOS, PICC 05/11 Past Anesthesia/Blood Transfusion Reactions: Blood Transfusion Reaction, Motion Sickness Additional Past Anesthesia/Blood Transfusion Reaction / Comment(s): BLOOD TRANSFUSION- BROKE OUT IN HIVES age 21 Past Psychological History: Anxiety Additional Psychological History / Comment(s): denies Smoking Status: Never smoker Past Alcohol Use History: None Reported, Occasional Additional Past Alcohol Use History / Comment(s): FORMER every other day 2-3 beers per patient. 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 - Past Family History Mother Family Medical History: Pulmonary Embolus Additional Family Medical History / Comment(s): AGE 73-[place], STROKE DURING CARATID PROCEDURE Medications and Allergies Home Medications Medication Instructions Recorded Confirmed Type Orphenadrine Citrate [Orphenadrine 100 mg PO BID 12/08/17 07/29/23 History Citrate ER] Febuxostat [Uloric] 80 mg PO DAILY 05/05/18 07/29/23 History amLODIPine [Norvasc] 10 mg PO DAILY 10/18/20 07/29/23 History Adalimumab [Humira(Cf) Pen] 40 mg SQ Q14D 08/16/22 07/29/23 History Buprenorphine HCl/Naloxone HCl 1 film SL BID 08/16/22 07/29/23 History [Suboxone 2 mg-0.5 mg Sl Film] Omeprazole [PriLOSEC] 20 mg PO BID 05/19/23 07/29/23 History Tamsulosin [Flomax] 0.4 mg PO AC-SUPPER 07/29/23 07/29/23 History Sodium Bicarbonate Tab 650 mg PO BID #60 tablet 08/02/23 Rx cefUROXime axetiL [Ceftin] 500 mg PO BID 7 Days #14 tab 08/02/23 Rx Allergies Allergy/AdvReac Type Severity Reaction Status Date / Time Iodinated Contrast Media Allergy Anaphylaxis Verified 08/20/23 20:56 [Iodinated Contrast Media - IV Dye] Physical Exam Vitals: Vital Signs Temp Pulse Pulse Resp BP BP Pulse Ox 08/21/23 07:00 97.4 F L 57 L 16 180/82 98 08/21/23 03:00 83 18 192/77 99 08/21/23 01:00 70 17 159/73 99 08/20/23 23:30 103 H 18 166/72 99 08/20/23 22:40 68 18 154/84 99 08/20/23 21:28 66 18 178/82 100 08/20/23 20:54 98 F 97 18 181/83 98 Intake and Output 08/20/23 08/21/23 08/21/23 22:59 06:59 14:59 Intake Total 118 Output Total 450 Balance -332 Intake: Oral 118 Output: Urine 250 Post Void Residual 200 Other: Voiding Method Toilet Weight 63.503 kg 63.503 kg Results - Lab Results Most recent lab results Calcium 8.1 mg/dL (8.4-10.2) L 08/21/23 07:31 Magnesium 1.2 mg/dL (1.6-2.3) L 08/21/23 07:31 08/20/23 20:59 08/21/23 07:31 Assessment and Plan Plan: Assessment: 1. Acute kidney injury secondary to vasomotor nephropathy secondary to hypovolemia and infection. Creatinine 2.17 on admission and is 1.69 today. CAT scan showed bilateral nonobstructing nephrolithiasis. 2. Metabolic acidosis secondary to acute kidney injury, IV fluids and GI losses. 3. Anemia. Rule out deficiency. Denies any active bleeding. 4. History of Crohn's disease. 5. Bilateral nephrolithiasis. 6. MRSA UTI and bacteremia in April 2023. 7. UA suggestive of UTI. Received levofloxacin this admission. Defer further management of antibiotics to primary team. 8. Hypomagnesemia from GI losses. Plan: Change IV fluids to bicarb drip to be run at 125 cc an hour. Check iron studies. Follow-up cultures. Avoid nephrotoxins. Continue to monitor renal function and urine output. Check bladder scan to rule out urinary retention. Magnesium being replaced. Add scheduled hydralazine. Hold for systolic blood pressure less than 120. Thank you for the consultation. I will continue to follow the patient with you during his hospital stay.
[2023-08-21] MEDS: hydrALAZINE HCL 25 MG TAB PO SCH (13:16)
[2023-08-21] MEDS: DEXTROSE 5% IN WATER 1,000 ML with SODIUM BICARB (1 MEQ/ML) 150 ML IV SCH (13:38)
--- NOTE | 2023-08-21 14:49 | P.GSCN ---
History of Present Illness Consult date: 08/21/23 Reason for Consult: Bilateral renal stones History of present illness: This is a 73-year-old male admitted to the hospital with a UTI and acute kidney injury. Urology is consulted for finding of bilateral nonobstructing renal stones. He is a known patient to Dr. Locke with history of recurrent kidney stones, and known history of Crohn's disease. Has underwent multiple ureteroscopy's with holmium laser to address his kidney stones, also had a recent septic stone in May of this year. Presented to the hospital with dysuria, bladder pressure and difficulty voiding. Urinalysis was concerning for UTI, urine culture was subsequently obtained. underwent a CT abdomen and pelvis that showed no evidence of ureteral stones, it did show evidence of bilateral nonobstructing stone and thickened bladder wall. Of note he did have a recent cystoscopy that was negative. He denies any flank pain or gross hematuria at this time. Denies any fevers or chills. Review of Systems - Constitutional Denies chills, Denies fever, Denies weight loss - EENT Ears, nose, mouth and throat: Denies dysphagia - Cardiovascular Denies chest pain, Denies shortness of breath - Gastrointestinal Reports abdominal pain, Denies nausea, Denies vomiting - Genitourinary Reports dysuria, Denies flank pain Past Medical History Past Medical History: Atrial Fibrillation, Blood Disorder, Eye Disorder, GERD/Reflux, GI Bleed, Hearing Disorder / Deafness, Hyperlipidemia, Hypertension, Musculoskeletal Disorder, Pneumonia, Rheumatoid Arthritis (RA), S kin Disorder, Supraventricular Tachycardia (SVT) Additional Past Medical History / Comment(s): hx CROHN'S (takes tresa), IBS, chronic diarrhea, migraines-, hx ulcers, anemia, gout, kidney stones, psoriasis, bilateral tinnitis., pinched sciatic nerve, C-Diff 2017, neuropathy, COMPLICATED UTI PYELONEPHRITIS, HEART RATE NORMALLY 50'S History of Any Multi-Drug Resistant Organisms: C-DIFF, MRSA Year Discovered:: stool MDRO Source:: 2017 Past Surgical History: Ablation, Bowel Resection, Cardiac Ablation, Cholecystectomy, Heart Catheterization, Hernia Repair, Joint Replacement, Orthopedic Surgery, Tonsillectomy Additional Past Surgical History / Comment(s): 1/3 of stomach removed (partial gastrectomy), ulcers, bowel resections, fecal transplant 2017, bilateral knee arthroscopic surgery, EGD/colonoscopies, R inguinal hernia repair, bilat catar act removal, TOTAL LEFT KNEE. MULTIPLE CYSTOS, PICC 05/11 Past Anesthesia/Blood Transfusion Reactions: Blood Transfusion Reaction, Motion Sickness Additional Past Anesthesia/Blood Transfusion Reaction / Comm: BLOOD TRANSFUSION- BROKE OUT IN HIVES age 21 Past Psychological History: Anxiety Additional Psychological History / Comment(s): denies Smoking Status: Never smoker Past Alcohol Use History: None Reported, Occasional Additional Past Alcohol Use History / Comment(s): FORMER every other day 2-3 beers per patient. 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 - Past Family History Mother Family Medical History: Pulmonary Embolus Additional Family Medical History / Comment(s): AGE 73-[place], STROKE DURING CARATID PROCEDURE Medications and Allergies Home Medications Medication Instructions Recorded Confirmed Type Orphenadrine Citrate [Orphenadrine 100 mg PO BID 12/08/17 08/21/23 History Citrate ER] Febuxostat [Uloric] 80 mg PO DAILY 05/05/18 08/21/23 History amLODIPine [Norvasc] 10 mg PO DAILY 10/18/20 08/21/23 History Adalimumab [Humira(Cf) Pen] 40 mg SQ Q14D 08/16/22 08/21/23 History Buprenorphine HCl/Naloxone HCl 1 film SL BID 08/16/22 08/21/23 History [Suboxone 2 mg-0.5 mg Sl Film] Omeprazole [PriLOSEC] 20 mg PO BID 05/19/23 08/21/23 History Tamsulosin [Flomax] 0.4 mg PO AC-SUPPER 07/29/23 08/21/23 History Sodium Bicarbonate Tab 650 mg PO BID #60 tablet 08/02/23 08/21/23 Rx Ciprofloxacin HCl [Cipro] 500 mg PO Q12HR 08/21/23 08/21/23 History Allergies Allergy/AdvReac Type Severity Reaction Status Date / Time Iodinated Contrast Media Allergy Anaphylaxis Verified 08/21/23 11:04 [Iodinated Contrast Media - IV Dye] Surgical - Exam Vital Signs Temp Pulse Resp BP Pulse Ox 98 F 97 18 181/83 98 08/20/23 20:54 08/20/23 20:54 08/20/23 20:54 08/20/23 20:54 08/20/23 20:54 - General no distress, no pain - Eyes normal ocular movement, no pale - ENT normal nares, normal mucosa - Respiratory normal expansion, normal respiratory effort - Abdomen Abdomen: soft, non tender, no distended - Psychiatric oriented to time, oriented to person, oriented to place Results - Labs 08/20/23 20:59 08/21/23 07:31 Abnormal Lab Results - Last 24 Hours (Table) 08/20/23 08/20/23 08/20/23 Range/Units 20:59 20:59 20:59 RBC 2.62 L (4.30-5.90) m/uL Hgb 8.1 L (13.0-17.5) gm/dL Hct 27.6 L (39.0-53.0) % MCV 105.5 H (80.0-100.0) fL MCHC 29.4 L (31.0-37.0) g/dL RDW 16.1 H (11.5-15.5) % Chloride 121 H (98-107) mmol/L Carbon Dioxide 11 L (22-30) mmol/L BUN 24 H (9-20) mg/dL Creatinine 2.17 H (0.66-1.25) mg/dL Calcium 8.2 L (8.4-10.2) mg/dL Magnesium (1.6-2.3) mg/dL Total Protein 5.9 L (6.3-8.2) g/dL Albumin 2.5 L (3.5-5.0) g/dL Urine Protein 2+ H (Negative) Urine Blood Moderate H (Negative) Ur Leukocyte Esterase Large H (Negative) Urine RBC 47 H (0-5) /hpf Urine WBC >182 H (0-5) /hpf Urine WBC Clumps Many H (None) /hpf Urine Bacteria Moderate H (None) /hpf 08/21/23 Range/Units 07:31 RBC (4.30-5.90) m/uL Hgb (13.0-17.5) gm/dL Hct (39.0-53.0) % MCV (80.0-100.0) fL MCHC (31.0-37.0) g/dL RDW (11.5-15.5) % Chloride 121 H (98-107) mmol/L Carbon Dioxide 11 L (22-30) mmol/L BUN 24 H (9-20) mg/dL Creatinine 1.69 H (0.66-1.25) mg/dL Calcium 8.1 L (8.4-10.2) mg/dL Magnesium 1.2 L (1.6-2.3) mg/dL Total Protein (6.3-8.2) g/dL Albumin (3.5-5.0) g/dL Urine Protein (Negative) Urine Blood (Negative) Ur Leukocyte Esterase (Negative) Urine RBC (0-5) /hpf Urine WBC (0-5) /hpf Urine WBC Clumps (None) /hpf Urine Bacteria (None) /hpf Diabetes panel 08/20/23 08/21/23 Range/Units 20:59 07:31 Sodium 139 137 (137-145) mmol/L Potassium 5.1 4.8 (3.5-5.1) mmol/L Chloride 121 H 121 H (98-107) mmol/L Carbon Dioxide 11 L 11 L (22-30) mmol/L BUN 24 H 24 H (9-20) mg/dL Creatinine 2.17 H 1.69 H (0.66-1.25) mg/dL Glucose 83 95 (74-99) mg/dL Calcium 8.2 L 8.1 L (8.4-10.2) mg/dL AST 34 (17-59) U/L ALT 28 (4-49) U/L Alkaline Phosphatase 83 (38-126) U/L Total Protein 5.9 L (6.3-8.2) g/dL Albumin 2.5 L (3.5-5.0) g/dL Calcium panel 08/20/23 08/21/23 Range/Units 20:59 07:31 Calcium 8.2 L 8.1 L (8.4-10.2) mg/dL Albumin 2.5 L (3.5-5.0) g/dL Pituitary panel 08/20/23 08/21/23 Range/Units 20:59 07:31 Sodium 139 137 (137-145) mmol/L Potassium 5.1 4.8 (3.5-5.1) mmol/L Chloride 121 H 121 H (98-107) mmol/L Carbon Dioxide 11 L 11 L (22-30) mmol/L BUN 24 H 24 H (9-20) mg/dL Creatinine 2.17 H 1.69 H (0.66-1.25) mg/dL Glucose 83 95 (74-99) mg/dL Calcium 8.2 L 8.1 L (8.4-10.2) mg/dL Adrenal panel 08/20/23 08/21/23 Range/Units 20:59 07:31 Sodium 139 137 (137-145) mmol/L Potassium 5.1 4.8 (3.5-5.1) mmol/L Chloride 121 H 121 H (98-107) mmol/L Carbon Dioxide 11 L 11 L (22-30) mmol/L BUN 24 H 24 H (9-20) mg/dL Creatinine 2.17 H 1.69 H (0.66-1.25) mg/dL Glucose 83 95 (74-99) mg/dL Calcium 8.2 L 8.1 L (8.4-10.2) mg/dL Total Bilirubin 0.2 (0.2-1.3) mg/dL AST 34 (17-59) U/L ALT 28 (4-49) U/L Alkaline Phosphatase 83 (38-126) U/L Total Protein 5.9 L (6.3-8.2) g/dL Albumin 2.5 L (3.5-5.0) g/dL - Imaging CT scan - abdomen: image reviewed (No hydronephrosis, bilateral nonobstructing stones, no ureteral stone appreciated) Assessment and Plan Assessment: 73-year-old male with a history of recurrent kidney stones, secondary to Crohn's disease. Admitted to the hospital with UTI, urinalysis concerning for UTI and he is symptomatic. Urology is consulted for bilateral renal stones, I reviewed his CT his stones are nonobstructive, and he is asymptomatic from at this time. At this point from urology standpoint continue antibiotics, recommend keeping in the hospital until cultures finalized. As for his renal stones given that they are nonobstructive and he is asymptomatic from them at this point no intervention is needed. He can follow-up as an outpatient with Dr. Locke for metabolic workup for his kidney stones
--- NOTE | 2023-08-21 15:13 | P.HPIM ---
History of Present Illness H&P Date: 08/21/23 This is a 73-year-old male with medical history significant for atrial fibrillation currently not on any anticoagulation, gastroesophageal reflux disease, GI bleed, hypertension, hyperlipidemia, rheumatoid arthritis, SVT, Crohn's, neuropathy. Patient has undergone a bowel resection due to his Crohn's as well as a partial gastrectomy secondary to severe peptic ulcer disease, anxiety, former opiate abuse patient is now maintained on Suboxone daily. Patient comes into the hospital secondary to dysuria urgency frequency and burning with urination. Does not feel as though he is fully emptying his bladder. Patient was recently admitted to the hospital due to acute kidney injury and retention and was noted to have a decreased hemoglobin of 6.8 requiring a blood transfusion. Was found to have a urinary tract infection and was discharged on a course of oral Ceftin. Since that hospitalization patient has been treated with a course of Bactrim as well as 2 separate courses of oral Cipro for urinary tract infection. Patient also has a history of kidney stones requiring a left and right ureter stent which have since been removed as well as a history of MRSA UTI. This admission abdominal pelvic CT was completed showing severe wall thickening of the urinary bladder concerning for urinary tract infection with multiple approximately 20 bilateral nonobstructing renal stones. Patient was admitted to the hospital under medicine with a consult placed to nephrology, urology and infectious disease. Initial blood work reveals a white blood cell count of 6.0, hemoglobin of 8.1, BUN of 24, creatinine of 2.17, potassium of 5.1. Patient's urinalysis does show moderate blood, 2+ protein, large leukocyte esterase and moderate bacteria greater than 182 WBCs. He did receive a dose of IV levofloxacin while in the emergency room. Patient also received a liter fluid bolus. Patient has been afebrile. REVIEW OF SYSTEMS: CONSTITUTIONAL: No fever, no malaise, no fatigue. HEENT: No recent visual problems or hearing problems. Denied any sore throat. CARDIOVASCULAR: No chest pain, orthopnea, PND, no palpitations, no syncope. PULMONARY: No shortness of breath, no cough, no hemoptysis. GASTROINTESTINAL: No diarrhea, no nausea, no vomiting, no abdominal pain. NEUROLOGICAL: No headaches, no weakness, no numbness. HEMATOLOGICAL: Denies any bleeding or petechiae. GENITOURINARY: Reports burning micturition, frequency, or urgency. MUSCULOSKELETAL/RHEUMATOLOGICAL: Denies any joint pain, swelling, or any muscle pain. ENDOCRINE: Denies any polyuria or polydipsia. The rest of the 14-point review of systems is negative. PHYSICAL EXAMINATION: GENERAL: The patient is alert and oriented x3, not in any acute distress. Well developed, well nourished. HEENT: Pupils are round and equally reacting to light. EOMI. No scleral icterus. No conjunctival pallor. Normocephalic, atraumatic. No pharyngeal erythema. No thyromegaly. CARDIOVASCULAR: S1 and S2 present. No murmurs, rubs, or gallops. PULMONARY: Chest is clear to auscultation, no wheezing or crackles. ABDOMEN: Soft, nontender, nondistended, normoactive bowel sounds. No palpable organomegaly. MUSCULOSKELETAL: No joint swelling or deformity. EXTREMITIES: No cyanosis, clubbing, or pedal edema. NEUROLOGICAL: Gross neurological examination did not reveal any focal deficits. SKIN: No rashes. Assessment and plan -Acute urinary tract infection without sepsis failed outpatient treatment present on admission patient received a dose of IV levofloxacin and infectious disease has been consulted for further recommendations regarding antibiotic treatment on this patient has -been on multiple antibiotics outpatient recently. Urine culture is currently taken and pending. -History of renal stones requiring ureteral stenting in the past. Patient is being followed closely by urology who has been consulted for further evaluation this admission. -Acute kidney injury and metabolic acidosis nephrology has been consulted and patient is a started on a sodium bicarbonate drip recommend to repeat labs in the morning. Rule out urinary retention with bladder scan. -History of MRSA UTI and bacteremia in April 2023 requiring outpatient antibiotic therapy -Hypomagnesemia will be replaced with repeat labs in the morning -History of Crohn's disease requiring bowel resection and chronic diarrhea -History of peptic ulcer disease with partial gastrectomy -Anemia with recent hospitalization requiring blood transfusion History of paroxysmal atrial fibrillation currently not anticoagulated History of hypertension History of hyperlipidemia History of rheumatoid arthritis History of SVT History of neuropathy Former smoker History of alcoholism History of opioid addiction maintained on Suboxone which has been resumed this hospital stay GI prophylaxis Pepcid DVT prophylaxis subcu heparin Full Code The impression and plan of care has been dictated by Sonal Sun, Nurse Practitioner as directed. Dr. Natacha MD I have performed a history and physical examination and medical decision making of this patient, discussed the same with the dictator, and agree with the dictators assessment and plan as written, documented as a scribe. Based on total visit time, I have performed more than 50% of this visit. Past Medical History Past Medical History: Atrial Fibrillation, Blood Disorder, Eye Disorder, GERD/Reflux, GI Bleed, Hearing Disorder / Deafness, Hyperlipidemia, Hypertension, Musculoskeletal Disorder, Pneumonia, Rheumatoid Arthritis (RA), Skin Disorder, Supraventricular Tachycardia (SVT) Additional Past Medical History / Comment(s): hx CROHN'S (takes tresa), IBS, chronic diarrhea, migraines-, hx ulcers, anemia, gout, kidney stones, psoriasis, bilateral tinnitis., pinched sciatic nerve, C-Diff 2017, neuropathy, COMPLICATED UTI PYELONEPHRITIS, HEART RATE NORMALLY 50'S History of Any Multi-Drug Resistant Organisms: C-DIFF, MRSA Date of last positivie culture/infection: stool MDRO Source:: 2017 Past Surgical History: Ablation, Bowel Resection, Cardiac Ablation, Cholecystectomy, Heart Catheterization, Hernia Repair, Joint Replacement, Orthopedic Surgery, Tonsillectomy Additional Past Surgical History / Comment(s): 1/3 of stomach removed (partial gastrectomy), ulcers, bowel resections, fecal transplant 2017, bilateral knee arthroscopic surgery, EGD/colonoscopies, R inguinal hernia repair, bilat cataract removal, TOTAL LEFT KNEE. MULTIPLE CYSTOS, PICC 05/11 Past Anesthesia/Blood Transfusion Reactions: Blood Transfusion Reaction, Motion Sickness Additional Past Anesthesia/Blood Transfusion Reaction / Comment(s): BLOOD TRANSFUSION- BROKE OUT IN HIVES age 21 Past Psychological History: Anxiety Additional Psychological History / Comment(s): denies Smoking Status: Never smoker Past Alcohol Use History: None Reported, Occasional Additional Past Alcohol Use History / Comment(s): FORMER every other day 2-3 beers per patient. 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 - Past Family History Mother Family Medical History: Pulmonary Embolus Additional Family Medical History / Comment(s): AGE 73-[place], STROKE DURING CARATID PROCEDURE Medications and Allergies Home Medications Medication Instructions Recorded Confirmed Type Orphenadrine Citrate [Orphenadrine 100 mg PO BID 12/08/17 08/21/23 History Citrate ER] Febuxostat [Uloric] 80 mg PO DAILY 05/05/18 08/21/23 History amLODIPine [Norvasc] 10 mg PO DAILY 10/18/20 08/21/23 History Adalimumab [Humira(Cf) Pen] 40 mg SQ Q14D 08/16/22 08/21/23 History Buprenorphine HCl/Naloxone HCl 1 film SL BID 08/16/22 08/21/23 History [Suboxone 2 mg-0.5 mg Sl Film] Omeprazole [PriLOSEC] 20 mg PO BID 05/19/23 08/21/23 History Tamsulosin [Flomax] 0.4 mg PO AC-SUPPER 07/29/23 08/21/23 History Sodium Bicarbonate Tab 650 mg PO BID #60 tablet 08/02/23 08/21/23 Rx Ciprofloxacin HCl [Cipro] 500 mg PO Q12HR 08/21/23 08/21/23 History Allergies Allergy/AdvReac Type Severity Reaction Status Date / Time Iodinated Contrast Media Allergy Anaphylaxis Verified 08/21/23 11:04 [Iodinated Contrast Media - IV Dye] Physical Exam Vitals: Vital Signs Temp Pulse Pulse Resp BP BP Pulse Ox 08/21/23 14:52 96.5 F L 61 16 159/77 99 08/21/23 13:16 84 176/74 08/21/23 07:00 97.4 F L 57 L 16 180/82 98 08/21/23 03:00 83 18 192/77 99 08/21/23 01:00 70 17 159/73 99 08/20/23 23:30 103 H 18 166/72 99 08/20/23 22:40 68 18 154/84 99 08/20/23 21:28 66 18 178/82 100 08/20/23 20:54 98 F 97 18 181/83 98 Intake and Output 08/21/23 08/21/23 08/21/23 06:59 14:59 22:59 Intake Total 1298 Output Total 500 Balance 798 Intake: Intake, IV Titration 1180 Amount Magnesium Sulfate-D5w Pmx 400 1 gm In Dextrose/Water 1 100ml.bag @ 100 mls/hr IVPB Q1H [facility] Rx#: [id number] Sodium Chloride 0.9% 1, 780 000 ml @ 130 mls/hr IV . Q7H42M [facility] Rx#:[id number] Oral 118 Output: Urine 300 Post Void Residual 200 Other: Voiding Method Toilet # Voids 3 Weight 63.503 kg Results CBC & Chem 7: 08/20/23 20:59 08/21/23 07:31 Labs: Abnormal Lab Results - Last 24 Hours (Table) 08/20/23 08/20/23 08/20/23 Range/Units 20:59 20:59 20:59 RBC 2.62 L (4.30-5.90) m/uL Hgb 8.1 L (13.0-17.5) gm/dL Hct 27.6 L (39.0-53.0) % MCV 105.5 H (80.0-100.0) fL MCHC 29.4 L (31.0-37.0) g/dL RDW 16.1 H (11.5-15.5) % Chloride 121 H (98-107) mmol/L Carbon Dioxide 11 L (22-30) mmol/L BUN 24 H (9-20) mg/dL Creatinine 2.17 H (0.66-1.25) mg/dL Calcium 8.2 L (8.4-10.2) mg/dL Magnesium (1.6-2.3) mg/dL Total Protein 5.9 L (6.3-8.2) g/dL Albumin 2.5 L (3.5-5.0) g/dL Urine Protein 2+ H (Negative) Urine Blood Moderate H (Negative) Ur Leukocyte Esterase Large H (Negative) Urine RBC 47 H (0-5) /hpf Urine WBC >182 H (0-5) /hpf Urine WBC Clumps Many H (None) /hpf Urine Bacteria Moderate H (None) /hpf 08/21/23 Range/Units 07:31 RBC (4.30-5.90) m/uL Hgb (13.0-17.5) gm/dL Hct (39.0-53.0) % MCV (80.0-100.0) fL MCHC (31.0-37.0) g/dL RDW (11.5-15.5) % Chloride 121 H (98-107) mmol/L Carbon Dioxide 11 L (22-30) mmol/L BUN 24 H (9-20) mg/dL Creatinine 1.69 H (0.66-1.25) mg/dL Calcium 8.1 L (8.4-10.2) mg/dL Magnesium 1.2 L (1.6-2.3) mg/dL Total Protein (6.3-8.2) g/dL Albumin (3.5-5.0) g/dL Urine Protein (Negative) Urine Blood (Negative) Ur Leukocyte Esterase (Negative) Urine RBC (0-5) /hpf Urine WBC (0-5) /hpf Urine WBC Clumps (None) /hpf Urine Bacteria (None) /hpf Thrombosis Risk Factor Assmnt - Choose All That Apply Each Risk Factor Represents 2 Points: Age 61-74 years Thrombosis Risk Factor Assessment Total Risk Factor Score: 2 Thrombosis Risk Factor Assessment Level: Low Risk Assessment and Plan Time with Patient: Greater than 30
[2023-08-21] MEDS: TAMSULOSIN 0.4 MG CAP.ER.24H PO SCH (17:43)
[2023-08-21] MEDS: HEPARIN SODIUM,PORCINE 5,000 UNIT/ML 1 ML VIAL SQ SCH (21:20)
[2023-08-21 22:50] LABS: % Iron Saturation 21.55 (15.00-50.00)
--- NOTE | 2023-08-21 23:17 | P.CONS ---
History of Present Illness - Reason for Consult Consult date: 08/21/23 - History of Present Illness Patient is a 73-year-old male with a past medical history significant for atrial fibrillation hypertension hyperlipidemia pneumonia reflux history of chron's disease and anxiety and the patient recently has been treated with multiple courses of antibiotic for UTI including Ceftin and Cipro and Bactrim DS patient apparently did have a blood work done in the outpatient setting and the patient was noticed to have elevated potassium for the patient was advised to go to the hospital patient denies high-grade fever or any chills and no fever was recorded on presentation the hospital denies any headache or URI symptoms no chest pain shortness of breath no cough has been complaining of difficulty starting the stream and difficulty urination along with a burning suprapubic and flank pain patient on presentation the hospital was afebrile no fever have recorded subsequently patient was not tachycardic hypotensive or hypoxic he did have white count of 6.0 BUN and creatinine has been elevated urine has been positive patient did have abdominal pelvis CT severe wall thickening of the urinary bladder concerning for UTI multiple bilateral nonobstructing renal stone patient has been admitted to hospital and received a dose of Levaquin infectious disease was consulted today for further management of antibiotic therapy Past Medical History Past Medical History: Atrial Fibrillation, Blood Disorder, Eye Disorder, GERD/Reflux, GI Bleed, Hearing Disorder / Deafness, Hyperlipidemia, Hypertension, Musculoskeletal Disorder, Pneumonia, Rheumatoid Arthritis (RA), Skin Disorder, Supraventricular Tachycardia (SVT) Additional Past Medical History / Comment(s): hx CROHN'S (takes tresa), IBS, chronic diarrhea, migraines-, hx ulcers, anemia, gout, kidney stones, psoriasis, bilateral tinnitis., pinched sciatic nerve, C-Diff 2017, neuropathy, COMPLICATED UTI PYELONEPHRITIS, HEART RATE NORMALLY 50'S History of Any Multi-Drug Resistant Organisms: C-DIFF, MRSA Year Discovered:: stool MDRO Source:: 2017 Past Surgical History: Ablation, Bowel Resection, Cardiac Ablation, Cholecystectomy, Heart Catheterization, Hernia Repair, Joint Replacement, Orthopedic Surgery, Tonsillectomy Additional Past Surgical History / Comment(s): 13 of stomach removed (partial gastrectomy), ulcers, bowel resections, fecal transplant 2017, bilateral knee arthroscopic surgery, EGD/colonoscopies, R inguinal hernia repair, bilat cataract removal, TOTAL LEFT KNEE. MULTIPLE CYSTOS, PICC 05/11 Past Anesthesia/Blood Transfusion Reactions: Blood Transfusion Reaction, Motion Sickness Additional Past Anesthesia/Blood Transfusion Reaction / Comm: BLOOD TRANSFUSION- BROKE OUT IN HIVES age 21 Past Psychological History: Anxiety Additional Psychological History / Comment(s): denies Smoking Status: Never smoker Past Alcohol Use History: None Reported, Occasional Additional Past Alcohol Use History / Comment(s): FORMER every other day 2-3 beers per patient. 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 - Past Family History Mother Family Medical History: Pulmonary Embolus Additional Family Medical History / Comment(s): AGE 73-[place], STROKE DURING CARATID PROCEDURE Medications and Allergies Home Medications Medication Instructions Recorded Confirmed Type Orphenadrine Citrate [Orphenadrine 100 mg PO BID 12/08/17 08/21/23 History Citrate ER] Febuxostat [Uloric] 80 mg PO DAILY 05/05/18 08/21/23 History amLODIPine [Norvasc] 10 mg PO DAILY 10/18/20 08/21/23 History Adalimumab [Humira(Cf) Pen] 40 mg SQ Q14D 08/16/22 08/21/23 History Buprenorphine HCl/Naloxone HCl 1 film SL BID 08/16/22 08/21/23 History [Suboxone 2 mg-0.5 mg Sl Film] Omeprazole [PriLOSEC] 20 mg PO BID 05/19/23 08/21/23 History Tamsulosin [Flomax] 0.4 mg PO AC-SUPPER 07/29/23 08/21/23 History Sodium Bicarbonate Tab 650 mg PO BID #60 tablet 08/02/23 08/21/23 Rx Ciprofloxacin HCl [Cipro] 500 mg PO Q12HR 08/21/23 08/21/23 History Allergies Allergy/AdvReac Type Severity Reaction Status Date / Time Iodinated Contrast Media Allergy Anaphylaxis Verified 08/21/23 11:04 [Iodinated Contrast Media - IV Dye] Physical Exam Vitals: Vital Signs Temp Pulse Pulse Resp BP BP Pulse Ox 08/21/23 14:52 96.5 F L 61 16 159/77 99 08/21/23 13:16 84 176/74 08/21/23 07:00 97.4 F L 57 L 16 180/82 98 08/21/23 03:00 83 18 192/77 99 08/21/23 01:00 70 17 159/73 99 08/20/23 23:30 103 H 18 166/72 99 08/20/23 22:40 68 18 154/84 99 08/20/23 21:28 66 18 178/82 100 08/20/23 20:54 98 F 97 18 181/83 98 Intake and Output 08/21/23 08/21/23 08/21/23 06:59 14:59 22:59 Intake Total 1298 Output Total 500 Balance 798 Intake: Intake, IV Titration 1180 Amount Magnesium Sulfate-D5w Pmx 400 1 gm In Dextrose/Water 1 100ml.bag @ 100 mls/hr IVPB Q1H [facility] Rx#: [id number] Sodium Chloride 0.9% 1, 780 000 ml @ 130 mls/hr IV . Q7H42M [facility] Rx#:[id number] Oral 118 Output: Urine 300 Post Void Residual 200 Other: Voiding Method Toilet # Voids 3 Weight 63.503 kg Results CBC & Chem 7: 08/20/23 20:59 08/21/23 07:31 Labs: Abnormal Lab Results - Last 24 Hours (Table) 08/20/23 08/20/23 08/20/23 Range/Units 20:59 20:59 20:59 RBC 2.62 L (4.30-5.90) m/uL Hgb 8.1 L (13.0-17.5) gm/dL Hct 27.6 L (39.0-53.0) % MCV 105.5 H (80.0-100.0) fL MCHC 29.4 L (31.0-37.0) g/dL RDW 16.1 H (11.5-15.5) % Chloride 121 H (98-107) mmol/L Carbon Dioxide 11 L (22-30) mmol/L BUN 24 H (9-20) mg/dL Creatinine 2.17 H (0.66-1.25) mg/dL Calcium 8.2 L (8.4-10.2) mg/dL Magnesium (1.6-2.3) mg/dL Total Protein 5.9 L (6.3-8.2) g/dL Albumin 2.5 L (3.5-5.0) g/dL Urine Protein 2+ H (Negative) Urine Blood Moderate H (Negative) Ur Leukocyte Esterase Large H (Negative) Urine RBC 47 H (0-5) /hpf Urine WBC >182 H (0-5) /hpf Urine WBC Clumps Many H (None) /hpf Urine Bacteria Moderate H (None) /hpf 08/21/23 Range/Units 07:31 RBC (4.30-5.90) m/uL Hgb (13.0-17.5) gm/dL Hct (39.0-53.0) % MCV (80.0-100.0) fL MCHC (31.0-37.0) g/dL RDW (11.5-15.5) % Chloride 121 H (98-107) mmol/L Carbon Dioxide 11 L (22-30) mmol/L BUN 24 H (9-20) mg/dL Creatinine 1.69 H (0.66-1.25) mg/dL Calcium 8.1 L (8.4-10.2) mg/dL Magnesium 1.2 L (1.6-2.3) mg/dL Total Protein (6.3-8.2) g/dL Albumin (3.5-5.0) g/dL Urine Protein (Negative) Urine Blood (Negative) Ur Leukocyte Esterase (Negative) Urine RBC (0-5) /hpf Urine WBC (0-5) /hpf Urine WBC Clumps (None) /hpf Urine Bacteria (None) /hpf Assessment and Plan Plan: 1patient presented to hospital with electrolyte abnormality however the patient did have significant urinary symptoms positive UA and abdominal CT concerning for complicated UTI in this patient who did have a history of MRSA UTI and bacteremia back in April 2023 2-patient with a mild renal insufficiency high risk of nephrotoxicity 3-we will start the patient Rocephin 2 g daily along with daptomycin while waiting for the culture to finalize Question concern answered We will follow on clinical condition and cultures to further adjust medication if needed Thank you for this consultation we will follow the patient along with you Dictation was produced using [employer] software. please excuse any grammatical, word or spelling errors. Time with Patient: Greater than 30
[2023-08-22] MEDS: ONDANSETRON 4 MG/2 ML VIAL IVP PRN (01:18)
--- NOTE | 2023-08-22 11:09 | P.PN ---
Subjective Patient is seen in follow-up for acute kidney injury. Renal function improving with IV fluids. Tolerating oral intake. No vomiting or diarrhea. No active complaints. Vital signs are stable. General: No acute distress. HEENT: Head exam is unremarkable. LUNGS: No audible rhonchi or wheezes. HEART: Rate and Rhythm are regular. ABDOMEN: Nontender. EXTREMITITES: Trace edema. Objective - Vital Signs Vital signs: Vital Signs Temp 97.9 F 08/22/23 07:00 Pulse 43 L 08/22/23 07:00 Resp 16 08/22/23 07:00 BP 169/73 08/22/23 07:00 Pulse Ox 97 08/22/23 07:00 FiO2 Intake & Output 08/21/23 08/22/23 08/22/23 18:59 06:59 18:59 Intake Total 1416 118 Output Total 500 1000 Balance 916 -1000 118 Intake: Intake, IV Titration 1180 Amount Magnesium Sulfate-D5w Pmx 400 1 gm In Dextrose/Water 1 100ml.bag @ 100 mls/hr IVPB Q1H [facility] Rx#: [id number] Sodium Chloride 0.9% 1, 780 000 ml @ 130 mls/hr IV . Q7H42M [facility] Rx#:[id number] Oral 236 118 Output: Urine 300 1000 Post Void Residual 200 Other: Voiding Method Urinal Urinal # Voids 3 1 # Bowel Movements 1 - Labs CBC & Chem 7: 08/20/23 20:59 08/21/23 07:31 Assessment and Plan Plan: Assessment: 1. Acute kidney injury secondary to vasomotor nephropathy secondary to hypovolemia and infection. Creatinine 2.17 on admission and improved to 1.69 yesterday. CAT scan showed bilateral nonobstructing nephrolithiasis. 2. Metabolic acidosis secondary to acute kidney injury, IV fluids and GI losses. Currently on bicarb drip. 3. Anemia. Mild iron deficiency noted. Denies any active bleeding. 4. History of Crohn's disease. 5. Bilateral nephrolithiasis. 6. MRSA UTI and bacteremia in April 2023. 7. UA suggestive of UTI. On antibiotics. 8. Hypomagnesemia from GI losses. Replaced. Plan: Maintain bicarb drip. Decrease rate to 75 cc an hour. IV iron x 1 dose today. Follow-up cultures. Avoid nephrotoxins. Continue to monitor renal function and urine output.
[2023-08-22 11:26] LABS: BUN/Creat Ratio 13.16 Ratio (12.00-20.00); Calcium 7.8 mg/dL (8.7-10.3); Chloride 112 mmol/L (96-109); Glucose 115 mg/dL (70-110); Magnesium 1.8 mg/dL (1.5-2.4); Potassium 4.6 mmol/L (3.5-5.5); Sodium 136 mmol/L (135-145)
[2023-08-22] MEDS: SODIUM FERRIC GLUCONAT-SUCROSE 125 MG in SODIUM CHLORIDE 0.9% 100 ML IVPB ONE (12:28)
[2023-08-22 13:37] VITALS: BMI 17.9
--- NOTE | 2023-08-22 22:09 | P.PN ---
Subjective Progress Note Date: 08/22/23 Principal diagnosis: Reason for follow-up is a complicated UTI Patient is a 73-year-old male with a past medical history significant for atrial fibrillation hypertension hyperlipidemia pneumonia reflux history of chron's disease and anxiety and the patient recently has been treated with multiple courses of antibiotic for UTI including Ceftin and Cipro and Bactrim DS, presented to hospital with abnormal labs did have significant urinary symptoms positive UA concerning for symptomatic UTI. On today's evaluation that is 08/22/2023, the patient continues to be afebrile, the patient is on room air and breathing comfortably, the Pt denies having any chest pain or cough, the patient complaining of some nausea but no vomiting still complaining some urinary symptoms slight improvement no diarrhea. Patient did have a creatinine 1.9 cultures currently pending Objective - Vital Signs Vital signs: Vital Signs Temp 97.7 F 08/22/23 14:30 Pulse 58 L 08/22/23 17:10 Resp 16 08/22/23 14:30 BP 154/72 08/22/23 17:10 Pulse Ox 99 08/22/23 14:30 FiO2 Intake & Output 08/21/23 08/22/23 08/22/23 18:59 06:59 18:59 Intake Total 1416 236 Output Total 500 1000 50 Balance 916 -1000 186 Weight 63.503 kg Intake: Intake, IV Titration 1180 Amount Magnesium Sulfate-D5w Pmx 400 1 gm In Dextrose/Water 1 100ml.bag @ 100 mls/hr IVPB Q1H [facility] Rx#: [id number] Sodium Chloride 0.9% 1, 780 000 ml @ 130 mls/hr IV . Q7H42M [facility] Rx#:[id number] Oral 236 236 Output: Urine 300 1000 50 Post Void Residual 200 Other: Voiding Method Urinal Urinal # Voids 3 1 3 # Bowel Movements 1 - Exam GENERAL DESCRIPTION: An elderly male lying in bed in no distress RESPIRATORY SYSTEM: Unlabored breathing , decreased breath sounds at bases HEART: S1 S2 regular rate and rhythm , ABDOMEN: Soft , no tenderness EXTREMITIES: No edema feet - Labs CBC & Chem 7: 08/25/23 06:51 08/25/23 06:51 Labs: Abnormal Lab Results - Last 24 Hours (Table) 08/22/23 Range/Units 06:50 Chloride 112 H (96-109) mmol/L Carbon Dioxide 18.0 L (21.6-31.8) mmol/L Creatinine 1.9 H (0.6-1.5) mg/dL Est GFR (CKD-EPI) 37 L (>=60) Glucose 115 H (70-110) mg/dL Calcium 7.8 L (8.7-10.3) mg/dL Microbiology - Last 24 Hours (Table) 08/20/23 23:30 Blood Culture - Preliminary Blood 08/20/23 23:15 Blood Culture - Preliminary Blood Assessment and Plan (1) Urinary tract infection Current Visit: Yes Status: Acute Code(s): N39.0 - URINARY TRACT INFECTION, SITE NOT SPECIFIED SNOMED Code(s): 46756720 Plan: 1patient presented to hospital with electrolyte abnormality however the patient did have significant urinary symptoms positive UA and abdominal CT concerning for complicated UTI in this patient who did have a history of MRSA UTI and bacteremia back in April 2023 2-patient with a mild renal insufficiency high risk of nephrotoxicity 3-patient to continue with Rocephin 2 g daily along with daptomycin while waiting for the culture to finalize and monitor clinical course closely Dictation was produced using [employer] dictation software. please excuse any grammatical, word or spelling errors. Time with Patient: Less than 30
--- NOTE | 2023-08-22 22:09 | P.PN ---
Subjective Progress Note Date: 08/22/23 This is a 73-year-old male with medical history significant for atrial fibrillation currently not on any anticoagulation, gastroesophageal reflux disease, GI bleed, hypertension, hyperlipidemia, rheumatoid arthritis, SVT, Crohn's, neuropathy. Patient has undergone a bowel resection due to his Crohn's as well as a partial gastrectomy secondary to severe peptic ulcer disease, anxiety, former opiate abuse patient is now maintained on Suboxone daily. Patient comes into the hospital secondary to dysuria urgency frequency and burning with urination. Does not feel as though he is fully emptying his bladde r. Patient was recently admitted to the hospital due to acute kidney injury and retention and was noted to have a decreased hemoglobin of 6.8 requiring a blood transfusion. Was found to have a urinary tract infection and was discharged on a course of oral Ceftin. Since that hospitalization patient has been treated with a course of Bactrim as well as 2 separate courses of oral Cipro for urinary tract infection. Patient also has a history of kidney stones requiring a left and right ureter stent which have since been removed as well as a history of MRSA UTI. This admission abdominal pelvic CT was completed showing severe wall thickening of the urinary bladder concerning for urinary tract infection with multiple approximately 20 bilateral nonobstructing renal stones. Patient was admitted to the hospital under medicine with a consult placed to nephrology, urology and infectious disease. Initial blood work reveals a white blood cell count of 6.0, hemoglobin of 8.1, BUN of 24, creatinine of 2.17, potassium of 5.1. Patient's urinalysis does show moderate blood, 2+ protein, large leukocyte esterase and moderate bacteria greater than 182 WBCs. He did receive a dose of IV levofloxacin while in the emergency room. Patient also received a liter fluid bolus. Patient has been afebrile. 08/22/2023 Patient is evaluated today in follow up with no acute complaints overnight. Urology is not planning on any intervention for the nonobstructing kidney stones. Has been placed on IV ceftriaxone and IV daptomycin by ID and currently pending final urine culture to determine discharge antibiotics. Patients creatinine is 1.9 today. REVIEW OF SYSTEMS: CONSTITUTIONAL: No fever, no malaise, no fatigue. HEENT: No recent visual problems or hearing problems. Denied any sore throat. CARDIOVASCULAR: No chest pain, orthopnea, PND, no palpitations, no syncope. PULMONARY: No shortness of breath, no cough, no hemoptysis. GASTROINTESTINAL: No diarrhea, no nausea, no vomiting, no abdominal pain. NEUROLOGICAL: No headaches, no weakness, no numbness. PHYSICAL EXAMINATION: GENERAL: The patient is alert and oriented x3, not in any acute distress. Well developed, well nourished. HEENT: Pupils are round and equally reacting to light. EOMI. No scleral icterus. No conjunctival pallor. Normocephalic, atraumatic. No pharyngeal erythema. No thyromegaly. CARDIOVASCULAR: S1 and S2 present. No murmurs, rubs, or gallops. PULMONARY: Chest is clear to auscultation, no wheezing or crackles. ABDOMEN: Soft, nontender, nondistended, normoactive bowel sounds. No palpable organomegaly. MUSCULOSKELETAL: No joint swelling or deformity. EXTREMITIES: No cyanosis, clubbing, or pedal edema. NEUROLOGICAL: Gross neurological examination did not reveal any focal deficits. SKIN: No rashes. Assessment and plan -Acute urinary tract infection without sepsis failed outpatient treatment present on admission patient received a dose of IV levofloxacin and infectious disease has been consulted for further recommendations regarding antibiotic treatment on this patient has -been on multiple antibiotics outpatient recently. Urine culture is currently taken and pending. -History of renal stones requiring ureteral stenting in the past. Patient is being followed closely by urology. -Acute kidney injury and metabolic acidosis nephrology has been consulted and patient is a started on a sodium bicarbonate drip recommend to repeat labs in the morning. Rule out urinary retention with bladder scan. -History of MRSA UTI and bacteremia in April 2023 requiring outpatient antibiotic therapy -Hypomagnesemia will be replaced with repeat labs in the morning -History of Crohn's disease requiring bowel resection and chronic diarrhea -History of peptic ulcer disease with partial gastrectomy -Anemia with recent hospitalization requiring blood transfusion History of paroxysmal atrial fibrillation currently not anticoagulated History of hypertension History of hyperlipidemia History of rheumatoid arthritis History of SVT History of neuropathy Former smoker History of alcoholism History of opioid addiction maintained on Suboxone which has been resumed this hospital stay GI prophylaxis Pepcid DVT prophylaxis subcu heparin Full Code Continue on antibiotics and pending urine culture. Continue with bladder scan Q6h to monitor for urinary retentions. Repeat BMP in the AM. The impression and plan of care has been dictated by Sonal Sun, Nurse Practitioner as directed. Dr. Natacha MD I have performed a history and physical examination and medical decision making of this patient, discussed the same with the dictator, and agree with the dictators assessment and plan as written, documented as a scribe. Based on total visit time, I have performed more than 50% of this visit. Objective - Vital Signs Vital signs: Vital Signs Temp 97.7 F 08/22/23 14:30 Pulse 58 L 08/22/23 17:10 Resp 16 08/22/23 14:30 BP 154/72 08/22/23 17:10 Pulse Ox 99 08/22/23 14:30 FiO2 Intake & Output 08/22/23 08/22/23 08/23/23 06:59 18:59 06:59 Intake Total 236 Output Total 1000 50 Balance -1000 186 Weight 63.503 kg Intake: Oral 236 Output: Urine 1000 50 Other: Voiding Method Urinal Urinal Toilet Urinal # Voids 1 3 1 # Bowel Movements 1 - Labs CBC & Chem 7: 08/20/23 20:59 08/22/23 06:50 Labs: Abnormal Lab Results - Last 24 Hours (Table) 08/22/23 Range/Units 06:50 Chloride 112 H (96-109) mmol/L Carbon Dioxide 18.0 L (21.6-31.8) mmol/L Creatinine 1.9 H (0.6-1.5) mg/dL Est GFR (CKD-EPI) 37 L (>=60) Glucose 115 H (70-110) mg/dL Calcium 7.8 L (8.7-10.3) mg/dL Microbiology - Last 24 Hours (Table) 08/20/23 23:30 Blood Culture - Preliminary Blood 08/20/23 23:15 Blood Culture - Preliminary Blood Assessment and Plan Time with Patient: Less than 30
--- NOTE | 2023-08-23 08:24 | P.PN ---
Subjective Progress Note Date: 08/23/23 Principal diagnosis: UTI This is a 73-year-old male who was admitted with complaints of dysuria and urinary frequency. Patient has a recent history of frequent UTIs and has been t reated with Ceftin and Cipro and Bactrim previously. Urine culture is currently pending. He remains on IV ceftriaxone and daptomycin per infectious disease. Urology has been consulted regarding nonobstructing kidney stones and are not planning for any intervention at this time. On admission patient's creatinine was 2.17 and nephrology has been consulted. Remains on a bicarb drip, creatinine yesterday was 1.9, labs pending this morning at time of dictation. Patient reports pain is improving with urination but is still uncomfortable. He is tolerating diet although is not happy about being on a renal diet. Vital signs are stable. Objective - Vital Signs Vital signs: Vital Signs Temp 97.9 F 08/23/23 00:44 Pulse 57 L 08/23/23 00:44 Resp 15 08/23/23 00:44 BP 158/87 08/23/23 00:44 Pulse Ox 96 08/23/23 00:44 FiO2 Intake & Output 08/22/23 08/23/23 08/23/23 18:59 06:59 18:59 Intake Total 236 Output Total 50 900 Balance 186 -900 Weight 63.503 kg Intake: Oral 236 Output: Urine 50 900 Other: Voiding Method Urinal Toilet Urinal # Voids 3 1 - Constitutional General appearance: Present: cooperative, no acute distress - EENT Eyes: Present: PERRLA - Neck Neck: Present: normal ROM. Absent: lymphadenopathy, rigidity - Respiratory Respiratory: bilateral: CTA - Cardiovascular Rhythm: irregularly irregular - Gastrointestinal General gastrointestinal: Present: soft. Absent: tenderness - Integumentary Integumentary: Present: normal, normal turgor - Psychiatric Psychiatric: Present: A&O x's 3, appropriate affect, intact judgment & insight - Labs CBC & Chem 7: 08/20/23 20:59 08/22/23 06:50 Labs: Abnormal Lab Results - Last 24 Hours (Table) 08/22/23 Range/Units 06:50 Chloride 112 H (96-109) mmol/L Carbon Dioxide 18.0 L (21.6-31.8) mmol/L Creatinine 1.9 H (0.6-1.5) mg/dL Est GFR (CKD-EPI) 37 L (>=60) Glucose 115 H (70-110) mg/dL Calcium 7.8 L (8.7-10.3) mg/dL Microbiology - Last 24 Hours (Table) 08/20/23 23:30 Blood Culture - Preliminary Blood 08/20/23 23:15 Blood Culture - Preliminary Blood Assessment and Plan (1) Acute kidney injury Current Visit: Yes Status: Acute Code(s): N17.9 - ACUTE KIDNEY FAILURE, UNSPECIFIED SNOMED Code(s): 89708041 (2) Urinary tract infection Current Visit: Yes Status: Acute Code(s): N39.0 - URINARY TRACT INFECTION, SITE NOT SPECIFIED SNOMED Code(s): 56250549 (3) Hypertension Current Visit: Yes Status: Acute Code(s): I10 - ESSENTIAL (PRIMARY) HYPERTENSION SNOMED Code(s): 63125306 (4) Atrial fibrillation Current Visit: No Status: Acute Code(s): I48.91 - UNSPECIFIED ATRIAL FIBRILLATION SNOMED Code(s): 65003625 (5) Chronic anemia Current Visit: No Status: Acute Code(s): D64.9 - ANEMIA, UNSPECIFIED SNOMED Code(s): 729606970 (6) GERD (gastroesophageal reflux disease) Current Visit: No Status: Acute Code(s): K21.9 - GASTRO-ESOPHAGEAL REFLUX DISEASE WITHOUT ESOPHAGITIS SNOMED Code(s): 733006349 (7) Hx of Crohn's disease Current Visit: No Status: Acute Code(s): Z87.19 - PERSONAL HISTORY OF OTHER DISEASES OF THE DIGESTIVE SYSTEM SNOMED Code(s): 201428813581659 (8) Kidney stone Current Visit: No Status: Acute Code(s): N20.0 - CALCULUS OF KIDNEY SNOMED Code(s): 66844124 (9) Opiate dependence Current Visit: No Status: Acute Code(s): F11.20 - OPIOID DEPENDENCE, UNCOMPLICATED SNOMED Code(s): 29023114 Plan: Check CBC and CMP in the morning. Await urine culture for discharge antibiotic recommendation. Appreciate multiple consultants. Patient seen and evaluated by nurse practitioner, physician in agreement with plan
--- NOTE | 2023-08-23 10:59 | P.PN ---
Subjective Patient is seen in follow-up for acute kidney injury. Creatinine 1.9 yesterday. Tolerating oral intake. No vomiting or diarrhea. No active complaints. Vital signs are stable. General: No acute distress. HEENT: Head exam is unremarkable. LUNGS: No audible rhonchi or wheezes. HEART: Rate and Rhythm are regular. ABDOMEN: Nontender. EXTREMITITES: Trace edema. Objective - Vital Signs Vital signs: Vital Signs Temp 97.7 F 08/23/23 07:00 Pulse 56 L 08/23/23 07:00 Resp 14 08/23/23 07:00 BP 167/66 08/23/23 07:00 Pulse Ox 99 08/23/23 07:00 FiO2 Intake & Output 08/22/23 08/23/23 08/23/23 18:59 06:59 18:59 Intake Total 236 118 Output Total 50 900 Balance 186 -900 118 Weight 63.503 kg Intake: Oral 236 118 Output: Urine 50 900 Other: Voiding Method Urinal Toilet Urinal # Voids 3 1 - Labs CBC & Chem 7: 08/20/23 20:59 08/22/23 06:50 Labs: Abnormal Lab Results - Last 24 Hours (Table) 08/22/23 Range/Units 06:50 Chloride 112 H (96-109) mmol/L Carbon Dioxide 18.0 L (21.6-31.8) mmol/L Creatinine 1.9 H (0.6-1.5) mg/dL Est GFR (CKD-EPI) 37 L (>=60) Glucose 115 H (70-110) mg/dL Calcium 7.8 L (8.7-10.3) mg/dL Microbiology - Last 24 Hours (Table) 08/21/23 20:59 Urine Culture - Final Urine,Clean Catch 08/20/23 23:30 Blood Culture - Preliminary Blood 08/20/23 23:15 Blood Culture - Preliminary Blood Assessment and Plan Plan: Assessment: 1. Acute kidney injury secondary to vasomotor nephropathy secondary to hypovolemia and infection. Creatinine 2.17 on admission - 1.9 yesterday. CAT scan showed bilateral nonobstructing nephrolithiasis. 2. Metabolic acidosis secondary to acute kidney injury, IV fluids and GI losses. Currently on bicarb drip. 3. Anemia. Mild iron deficiency noted. Status post IV iron this admission. Denies any active bleeding. 4. History of Crohn's disease. 5. Bilateral nephrolithiasis. 6. MRSA UTI and bacteremia in April 2023. 7. UA suggestive of UTI. On antibiotics. 8. Hypomagnesemia from GI losses. Replaced. Improved. Plan: Stop bicarb drip. Add normal saline at 50 cc an hour for maintenance fluids. Encouraged oral intake. Add Aranesp. Follow-up cultures. Avoid nephrotoxins. Continue to monitor renal function and urine output. Increased dose of hydralazine. Hold for systolic blood pressure less than 120. Repeat UA.
[2023-08-23 11:46] LABS: BUN/Creat Ratio 13.47 Ratio (12.00-20.00); Blood Urea Nitrogen 22.9 mg/dL (9.0-27.0); Calcium 7.6 mg/dL (8.7-10.3); Carbon Dioxide 24.2 mmol/L (21.6-31.8); Chloride 111 mmol/L (96-109); Glucose 101 mg/dL (70-110); Magnesium 1.7 mg/dL (1.5-2.4); Potassium 4.2 mmol/L (3.5-5.5); Sodium 142 mmol/L (135-145)
[2023-08-23] MEDS: SODIUM CHLORIDE 0.9% 1,000 ML IV SCH (12:07)
[2023-08-23 12:14] LABS: Appearance,Urine Turbid (Clear); Bacteria,Urine Rare /hpf; Bilirubin,Urine Negative (Negative); Blood,Urine Small (Negative); Color,Urine Colorless; Glucose,Urine (UA) 1+ (Negative); Ketones,Urine Negative (Negative); Leukocyte Esterase,Urine Large (Negative); Nitrite,Urine Negative (Negative); PH, Urine 6.5 (5.0-8.0); Protein,Urine 2+ (Negative); RBC,Urine 13 /hpf (0-5); Specific Gravity,Urine 1.015 (1.001-1.035); Urobilinogen,Urine <2.0 mg/dL (<2.0); WBC,Urine >182 /hpf (0-5)
[2023-08-23] MEDS: hydrALAZINE HCL 50 MG TAB PO SCH (13:41)
[2023-08-24 08:53] LABS: HCT 26.9 % (39.0-53.0); HGB 7.9 gm/dL (13.0-17.5); Hypochromasia Marked; MCH 30.5 pg (25.0-35.0); MCHC 29.5 g/dL (31.0-37.0); MCV 103.2 fL (80.0-100.0); Macrocytosis Slight; Mean Platelet Volume 8.3; Platelet Count 275 k/uL (150-450); RBC 2.61 m/uL (4.30-5.90); RDW 15.3 % (11.5-15.5); WBC 5.4 k/uL (3.8-10.6)
--- NOTE | 2023-08-24 08:55 | P.PN ---
Subjective Progress Note Date: 08/24/23 Principal diagnosis: Hypertensive renal disease with recurrent UTI 73-year-old white male with acute kidney injury UTI and hypertension. Appreciate nephrology and infectious disease input. Urinalysis does show still leukocyte Estrace positivity but cultures are negative as far as significant pathology. Normal genital rogers was noted on the last culture. The patient still feels as though he is having some dysuria. Objective - Vital Signs Vital signs: Vital Signs Temp 98.1 F 08/24/23 08:00 Pulse 77 08/24/23 08:00 Resp 16 08/24/23 08:00 BP 149/59 08/24/23 08:00 Pulse Ox 97 08/24/23 08:00 FiO2 Intake & Output 08/23/23 08/24/23 08/24/23 18:59 06:59 18:59 Intake Total 118 Output Total 128 850 Balance -10 -850 Intake: Oral 118 Output: Urine 850 Post Void Residual 128 Other: Voiding Method Toilet Toilet Urinal Urinal # Voids 1 1 - Constitutional General appearance: Present: cooperative, no acute distress - EENT Eyes: Absent: abnormal pupil - Respiratory Respiratory: bilateral: diminished - Cardiovascular Rhythm: regular Heart sounds: normal: S1, S2 Abnormal Heart Sounds: Absent: S3 Gallop - Gastrointestinal General gastrointestinal: Present: soft. Absent: tenderness - Psychiatric Psychiatric: Present: A&O x's 3, appropriate affect - Labs CBC & Chem 7: 08/20/23 20:59 08/23/23 06:35 Labs: Abnormal Lab Results - Last 24 Hours (Table) 08/23/23 08/23/23 Range/Units 06:35 11:23 Chloride 111 H (96-109) mmol/L Creatinine 1.7 H (0.6-1.5) mg/dL Est GFR (CKD-EPI) 42 L (>=60) Calcium 7.6 L (8.7-10.3) mg/dL Urine Protein 2+ H (Negative) Urine Glucose (UA) 1+ H (Negative) Urine Blood Small H (Negative) Ur Leukocyte Esterase Large H (Negative) Urine RBC 13 H (0-5) /hpf Urine WBC >182 H (0-5) /hpf Urine WBC Clumps Few H (None) /hpf Urine Bacteria Rare H (None) /hpf Microbiology - Last 24 Hours (Table) 08/20/23 23:30 Blood Culture - Preliminary Blood 08/20/23 23:15 Blood Culture - Preliminary Blood 08/21/23 20:59 Urine Culture - Final Urine,Clean Catch Assessment and Plan (1) Acute kidney injury Current Visit: Yes Status: Acute Code(s): N17.9 - ACUTE KIDNEY FAILURE, UNSPECIFIED SNOMED Code(s): 95022230 (2) Hypertension Current Visit: Yes Status: Acute Code(s): I10 - ESSENTIAL (PRIMARY) HYPERTENSION SNOMED Code(s): 57814106 (3) Urinary tract infection Current Visit: Yes Status: Acute Code(s): N39.0 - URINARY TRACT INFECTION, SITE NOT SPECIFIED SNOMED Code(s): 91642692 (4) Complicated UTI (urinary tract infection) Current Visit: No Status: Acute Code(s): N39.0 - URINARY TRACT INFECTION, SITE NOT SPECIFIED SNOMED Code(s): 05233607 (5) Crohns disease Current Visit: No Status: Acute Code(s): K50.90 - CROHN'S DISEASE, UNSPECIFIED, WITHOUT COMPLICATIONS SNOMED Code(s): 76972900 (6) Flank pain Current Visit: No Status: Acute Code(s): R10.9 - UNSPECIFIED ABDOMINAL PAIN SNOMED Code(s): 708805563 (7) Opiate dependence Current Visit: No Status: Acute Code(s): F11.20 - OPIOID DEPENDENCE, UNCOMPLICATED SNOMED Code(s): 73723025 (8) Gout Current Visit: No Status: Chronic Code(s): M10.9 - GOUT, UNSPECIFIED SNO MED Code(s): 17576860 (9) Rheumatoid arthritis Current Visit: No Status: Chronic Code(s): M06.9 - RHEUMATOID ARTHRITIS, UNSPECIFIED SNOMED Code(s): 75477028 Plan: Continue current regimen of antibiotic treatment. Defer to infectious disease for appropriate antibiotic choice at this time. I am somewhat miffed as to his current leukocyte Estrace positivity Check CBC in the a.m. with CMP. Will continue to follow. Blood pressure seems to be improving.
[2023-08-24 09:12] LABS: ALT 26 U/L (4-49); AST 31 U/L (17-59); African American GFR (CKD) 45 (>60 ml/min/1.73 sqM); Albumin 2.3 g/dL (3.5-5.0); Albumin/Globulin Ratio 0.7; Alkaline Phosphatase 78 U/L (38-126); Anion Gap 0 mmol/L; Blood Urea Nitrogen 21 mg/dL (9-20); Carbon Dioxide 25 mmol/L (22-30); Chloride 112 mmol/L (98-107); Globulin 3.2 g/dL; Glucose 89 mg/dL (74-99); Non-African American GFR(CKD) 39 (>60 ml/min/1.73 sqM); Potassium 4.5 mmol/L (3.5-5.1); Sodium 137 mmol/L (137-145); Total Bilirubin 0.2 mg/dL (0.2-1.3); Total Protein 5.5 g/dL (6.3-8.2)
--- NOTE | 2023-08-24 11:08 | P.PN ---
Subjective Patient is seen in follow-up for acute kidney injury. Renal function stable. Tolerating oral intake. No vomiting or diarrhea. No active complaints. Vital signs are stable. General: No acute distress. HEENT: Head exam is unremarkable. LUNGS: No audible rhonchi or wheezes. HEART: Rate and Rhythm are regular. ABDOMEN: Nontender. EXTREMITITES: No edema. Objective - Vital Signs Vital signs: Vital Signs Temp 98.1 F 08/24/23 08:00 Pulse 77 08/24/23 08:00 Resp 16 08/24/23 08:00 BP 149/59 08/24/23 08:00 Pulse Ox 97 08/24/23 08:00 FiO2 Intake & Output 08/23/23 08/24/23 08/24/23 18:59 06:59 18:59 Intake Total 118 118 Output Total 128 850 Balance -10 -850 118 Intake: Oral 118 118 Output: Urine 850 Post Void Residual 128 Other: Voiding Method Toilet Toilet Toilet Urinal Urinal Urinal # Voids 1 1 - Labs CBC & Chem 7: 08/24/23 07:59 08/24/23 07:59 Labs: Abnormal Lab Results - Last 24 Hours (Table) 08/23/23 08/23/23 08/24/23 Range/Units 06:35 11:23 07:59 RBC 2.61 L (4.30-5.90) m/uL Hgb 7.9 L (13.0-17.5) gm/dL Hct 26.9 L (39.0-53.0) % MCV 103.2 H (80.0-100.0) fL MCHC 29.5 L (31.0-37.0) g/dL Chloride 111 H (96-109) mmol/L BUN (9-20) mg/dL Creatinine 1.7 H (0.6-1.5) mg/dL Est GFR (CKD-EPI) 42 L (>=60) Calcium 7.6 L (8.7-10.3) mg/dL Total Protein (6.3-8.2) g/dL Albumin (3.5-5.0) g/dL Urine Protein 2+ H (Negative) Urine Glucose (UA) 1+ H (Negative) Urine Blood Small H (Negative) Ur Leukocyte Esterase Large H (Negative) Urine RBC 13 H (0-5) /hpf Urine WBC >182 H (0-5) /hpf Urine WBC Clumps Few H (None) /hpf Urine Bacteria Rare H (None) /hpf 08/24/23 Range/Units 07:59 RBC (4.30-5.90) m/uL Hgb (13.0-17.5) gm/dL Hct (39.0-53.0) % MCV (80.0-100.0) fL MCHC (31.0-37.0) g/dL Chloride 112 H (96-109) mmol/L BUN 21 H (9-20) mg/dL Creatinine 1.72 H (0.6-1.5) mg/dL Est GFR (CKD-EPI) (>=60) Calcium 8.0 L (8.7-10.3) mg/dL Total Protein 5.5 L (6.3-8.2) g/dL Albumin 2.3 L (3.5-5.0) g/dL Urine Protein (Negative) Urine Glucose (UA) (Negative) Urine Blood (Negative) Ur Leukocyte Esterase (Negative) Urine RBC (0-5) /hpf Urine WBC (0-5) /hpf Urine WBC Clumps (None) /hpf Urine Bacteria (None) /hpf Microbiology - Last 24 Hours (Table) 08/20/23 23:30 Blood Culture - Preliminary Blood 08/20/23 23:15 Blood Culture - Preliminary Blood 08/21/23 20:59 Urine Culture - Final Urine,Clean Catch Assessment and Plan Plan: Assessment: 1. Acute kidney injury secondary to vasomotor nephropathy secondary to hypovolemia and infection. Creatinine 2.17 on admission -1.72 today. CAT scan showed bilateral nonobstructing nephrolithiasis. Creatinine since July 2023 has been in the range of 1.4-1.7 - appears to be nonrecovered ATN from severe sepsis/obstructive uropathy. Patient had right ureteral stent removed in May 2023. 2. Metabolic acidosis secondary to acute kidney injury, IV fluids and GI losses. Status post bicarb drip. Improved. 3. Anemia. Mild iron deficiency noted. Status post IV iron this admission. On Aranesp. Denies any active bleeding. 4. History of Crohn's disease. 5. Bilateral nephrolithiasis. 6. MRSA UTI and bacteremia in April 2023. 7. UA suggestive of UTI. On antibiotics. 8. Hypomagnesemia from GI losses. Replaced. Improved. Plan: Maintain normal saline. Encouraged oral intake. Follow-up cultures. Avoid nephrotoxins. Continue to monitor renal function and urine output. Check serologies. Advised patient to follow-up outpatient to establish CKD care.
[2023-08-24 15:45] LABS: Hepatitis A Antibody IgM Nonreactive (Nonreactive); Hepatitis B Core IgM Nonreactive (Nonreactive); Hepatitis B Surface Antigen Nonreactive (Nonreactive); Hepatitis C IgG Antibody Nonreactive (Nonreactive)
[2023-08-24 15:50] LABS: Complement C3 96.5 mg/dL (80.0-207.0)
[2023-08-24 16:04] LABS: Protein, Total 5.8 g/dL (6.2-8.2)
[2023-08-24 19:16] LABS: DNA Double-Stranded Negative (Negative)
--- NOTE | 2023-08-25 08:35 | P.DS ---
Providers Date of admission: 08/23/23 08:33 Attending physician: Minh Saldaña Consults: 08/21/23 01:02 Consult Physician Routine Consulting Provider: Twin Raymundo Consult Reason/Comments: acute kidney injury Do you want consulting provider notified?: Yes 08/21/23 11:51 Consult Physician Routine Consulting Provider: Donovan Prather Consult Reason/Comments: multiple renal stones Do you want consulting provider notified?: Yes 08/21/23 11:52 Consult Physician Routine Consulting Provider: Corry Mcclure Consult Reason/Comments: UTI failed outpatient treatment Do you want consulting provider notified?: Yes 08/25/23 07:39 Consult Physician Urgent Consulting Provider: Lizandro Murray Consult Reason/Comments: ST elevation Do you want consulting provider notified?: Already Contacted Primary care physician: Minh Saldaña - Discharge Diagnosis(es) (1) Acute kidney injury Current Visit: Yes Status: Acute (2) Urinary tract infection Current Visit: Yes Status: Acute (3) Hypertension Current Visit: Yes Status: Acute (4) Atrial fibrillation Current Visit: No Status: Acute (5) Chronic anemia Current Visit: No Status: Acute (6) GERD (gastroesophageal reflux disease) Current Visit: No Status: Acute (7) Hx of Crohn's disease Current Visit: No Status: Acute (8) Kidney stone Current Visit: No Status: Acute (9) Opiate dependence Current Visit: No Status: Acute Hospital Course: This is a 73-year-old male who was admitted with complaints of dysuria and urinary frequency. Patient has a recent history of frequent UTIs. During admission patient was on Rocephin and daptomycin. Urology was consulted regarding nonobstructing kidney stones and are not planning for any intervention at this time. On admission patient's creatinine was 2.17, and has been trending down. Patient to continue to avoid nephrotoxic medications until his follow-up appointments. Urine culture came back negative, will need to check with infectious disease regarding discharge antibiotics. Blood pressure elevated during stay and patient's EKG was questionable, however he was seen and evaluated by cardiology who reported EKG is stable and last echo was normal. He is to follow-up with cardiology as an outpatient. Patient seen and evaluated by nurse practitioner, physician in agreement with plan Patient Condition at Discharge: Fair Plan - Discharge Summary Discharge Rx Participant: No New Discharge Prescriptions: New hydrALAZINE HCL [Apresoline] 50 mg PO QID 30 Days #120 tab Continue amLODIPine [Norvasc] 10 mg PO DAILY Adalimumab [Humira(Cf) Pen] 40 mg SQ Q14D Buprenorphine HCl/Naloxone HCl [Suboxone 2 mg-0.5 mg Sl Film] 1 film SL BID Omeprazole [PriLOSEC] 20 mg PO BID Tamsulosin [Flomax] 0.4 mg PO AC-SUPPER Sodium Bicarbonate Tab 650 mg PO BID #60 tablet Discontinued Orphenadrine Citrate [Orphenadrine Citrate ER] 100 mg PO BID Febuxostat [Uloric] 80 mg PO DAILY No Action Ciprofloxacin HCl [Cipro] 500 mg PO Q12HR Discharge Medication List amLODIPine [Norvasc] 10 mg PO DAILY 10/18/20 [History] Adalimumab [Humira(Cf) Pen] 40 mg SQ Q14D 08/16/22 [History] Buprenorphine HCl/Naloxone HCl [Suboxone 2 mg-0.5 mg Sl Film] 1 film SL BID 08/16/22 [History] Omeprazole [PriLOSEC] 20 mg PO BID 05/19/23 [History] Tamsulosin [Flomax] 0.4 mg PO AC-SUPPER 07/29/23 [History] Sodium Bicarbonate Tab 650 mg PO BID #60 tablet 08/02/23 [Rx] Ciprofloxacin HCl [Cipro] 500 mg PO Q12HR 08/21/23 [History] hydrALAZINE HCL [Apresoline] 50 mg PO QID 30 Days #120 tab 08/25/23 [Rx] Follow up Appointment(s)/Referral(s): Lizandro Murray MD [STAFF PHYSICIAN] - 1 Week Minh Saldaña MD [Primary Care Provider] - 1-2 days Twin Raymundo DO [STAFF PHYSICIAN] - 1 Week Activity/Diet/Wound Care/Special Instructions: Recheck kidney function at f/u visit Discharge Disposition: HOME SELF-CARE
--- NOTE | 2023-08-25 10:17 | P.CRDCN ---
History of Present Illness History of present illness: HISTORY OF PRESENT ILLNESS: This is a 73-year-old male with a past medical history significant for kidney stones, SVT with previous ablation, and hypertension. 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 We have been asked to see the patient in consultation for ST elevation. Patient examined at the bedside. Patient is admitted to the hospital secondary to kidney stones, urinary tract infection, and acute kidney injury. Apparently nursing was notified this morning by telemetry that patient was having ST elevation in all leads and hence cardiac consult was initiated. Patient denies any chest pain or pressure. He denies any shortness of breath. Patient is hoping to be discharged home today. Upon review of telemetry, there is no diffuse ST elevation noted. Patient's EKG on admission revealed sinus mechanism with PACs, incomplete right bundle branch, left anterior fascicular block, borderline first-degree AV block, and left ventricular hypertrophy. His EKG is similar to previous EKGs in the computer. REVIEW OF SYSTEMS: At the time of my exam: CONSTITUTIONAL: Denies fever or chills. HEENT: Denies blurred vision, vision changes, or eye pain. Denies hemoptysis CARDIOVASCULAR: Denies chest pain. Denies orthopnea. Denies PND. Denies palpitations RESPIRATORY: Denies shortness of breath. GASTROINTESTINAL: Denies abdominal pain. Denies nausea or vomiting. HEMATOLOGIC: Denies bleeding disorders. GENITOURINARY: Denies any blood in urine. SKIN: Denies pruitis. Denies rash. PHYSICAL EXAM: VITAL SIGNS: Reviewed. GENERAL: Well-developed in no acute distress. HEENT: Head is normocephalic. Pupils are equal, round. Sclerae anicteric. Mucous membranes of the mouth are moist. Neck supple. No JVD or thyromegaly LUNGS: Respirations even and unlabored. Lungs essentially clear to auscultation bilaterally. HEART: Regular rate and rhythm. S1 and S2 heard. ABDOMEN: Soft. Nondistended. Nontender. EXTREMITIES: Normal range of motion. No clubbing or cyanosis. Peripheral pulses intact. No lower extremity edema NEUROLOGIC: Awake and alert. Oriented x 3. ASSESSMENT: Diffuse ST Elevation, ruled out Urinary tract infection Nephrolithiasis Acute kidney injury Chronic anemia History of SVT with previous ablation, 20 years ago per patient Hypertension PLAN: Continue current cardiac medications Patient may be discharged home today from a cardiac standpoint and follow-up on outpatient basis with Dr. Murray Nurse practitioner note has been reviewed by physician. Signing provider agrees with the documented findings, assessment, and plan of care documented by DEVELOPER DESIGNER as a scribe. Past Medical History Past Medical History: Atrial Fibrillation, Blood Disorder, Eye Disorder, GERD/Reflux, GI Bleed, Hearing Disorder / Deafness, Hyperlipidemia, Hypertension, Musculoskeletal Disorder, Pneumonia, Rheumatoid Arthritis (RA), Skin Disorder, Supraventricular Tachycardia (SVT) Additional Past Medical History / Comment(s): hx CROHN'S (takes tresa), IBS, chronic diarrhea, migraines-, hx ulcers, anemia, gout, kidney stones, psoriasis, bilateral tinnitis., pinched sciatic nerve, C-Diff 2017, neuropathy, COMPLICATED UTI PYELONEPHRITIS, HEART RATE NORMALLY 50'S History of Any Multi-Drug Resistant Organisms: C-DIFF, MRSA Date of last positivie culture/infection: stool MDRO Source:: 2017 Past Surgical History: Ablation, Bowel Resection, Cardiac Ablation, Cholecystectomy, Heart Catheterization, Hernia Repair, Joint Replacement, Orthopedic Surgery, Tonsillectomy Additional Past Surgical History / Comment(s): 1/3 of stomach removed (partial gastrectomy), ulcers, bowel resections, fecal transplant 2017, bilateral knee arthroscopic surgery, EGD/colonoscopies, R inguinal hernia repair, bilat cataract removal, TOTAL LEFT KNEE. MULTIPLE CYSTOS, PICC 05/11 Past Anesthesia/Blood Transfusion Reactions: Blood Transfusion Reaction, Motion Sickness Additional Past Anesthesia/Blood Transfusion Reaction / Comment(s): BLOOD TRANSFUSION- BROKE OUT IN HIVES age 21 Past Psychological History: Anxiety Additional Psychological History / Comment(s): denies Smoking Status: Never smoker Past Alcohol Use History: None Reported, Occasional Additional Past Alcohol Use History / Comment(s): FORMER every other day 2-3 beers per patient. 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 - Past Family History Mother Family Medical History: Pulmonary Embolus Additional Family Medical History / Comment(s): AGE 73-[place], STROKE DURING CARATID PROCEDURE Medications and Allergies Home Medications Medication Instructions Recorded Confirmed Type amLODIPine [Norvasc] 10 mg PO DAILY 10/18/20 08/21/23 History Adalimumab [Humira(Cf) Pen] 40 mg SQ Q14D 08/16/22 08/21/23 History Buprenorphine HCl/Naloxone HCl 1 film SL BID 08/16/22 08/21/23 History [Suboxone 2 mg-0.5 mg Sl Film] Omeprazole [PriLOSEC] 20 mg PO BID 05/19/23 08/21/23 History Tamsulosin [Flomax] 0.4 mg PO AC-SUPPER 07/29/23 08/21/23 History Sodium Bicarbonate Tab 650 mg PO BID #60 tablet 08/02/23 08/21/23 Rx Ciprofloxacin HCl [Cipro] 500 mg PO Q12HR 08/21/23 08/21/23 History hydrALAZINE HCL [Apresoline] 50 mg PO QID 30 Days #120 tab 08/25/23 Rx Allergies Allergy/AdvReac Type Severity Reaction Status Date / Time Iodinated Contrast Media Allergy Anaphylaxis Verified 08/21/23 11:04 [Iodinated Contrast Media - IV Dye] Physical Exam Vitals: Vital Signs Temp Pulse Resp BP Pulse Ox 08/25/23 07:57 97.8 F 60 16 173/81 99 08/25/23 02:00 98 F 60 16 159/68 98 08/24/23 20:53 61 08/24/23 20:00 98.1 F 70 16 149/70 94 L 08/24/23 17:45 61 179/74 08/24/23 14:00 98.0 F 79 16 178/69 98 Intake and Output 08/24/23 08/25/23 08/25/23 22:59 06:59 14:59 Intake Total 246 Balance 246 Intake: Oral 246 Other: Voiding Method Toilet Urinal # Voids 4 4 Results 08/24/23 07:59 08/24/23 07:59 Cardiac Enzymes 08/24/23 Range/Units 07:59 AST 31 (17-59) U/L CBC 08/24/23 Range/Units 07:59 WBC 5.4 (3.8-10.6) k/uL RBC 2.61 L (4.30-5.90) m/uL Hgb 7.9 L (13.0-17.5) gm/dL Hct 26.9 L (39.0-53.0) % Plt Count 275 (150-450) k/uL Comprehensive Metabolic Panel 08/24/23 Range/Units 07:59 Sodium 137 (137-145) mmol/L Potassium 4.5 (3.5-5.1) mmol/L Chloride 112 H (98-107) mmol/L Carbon Dioxide 25 (22-30) mmol/L BUN 21 H (9-20) mg/dL Creatinine 1.72 H (0.66-1.25) mg/dL Glucose 89 (74-99) mg/dL Calcium 8.0 L (8.4-10.2) mg/dL AST 31 (17-59) U/L ALT 26 (4-49) U/L Alkaline Phosphatase 78 (38-126) U/L Total Protein 5.5 L (6.3-8.2) g/dL Albumin 2.3 L (3.5-5.0) g/dL Current Medications Generic Name Dose Route Start Last Admin Trade Name Freq PRN Reason Stop Dose Admin Acetaminophen 650 mg 08/21/23 01:02 Acetaminophen Tab 325 Mg Tab PO Q6HR PRN Mild Pain or Fever > 100.5 Amlodipine Besylate 10 mg 08/21/23 09:30 08/24/23 08:57 Amlodipine 10 Mg Tab PO 10 mg DAILY GABE Administration Famotidine 20 mg 08/21/23 09:00 08/24/23 08:57 Famotidine 20 Mg Tab PO 20 mg DAILY GABE Administration Heparin Sodium (Porcine) 5,000 unit 08/21/23 21:00 08/24/23 20:50 Heparin Sodium,Porcine 5,000 Unit/Ml 1 Ml Vial SQ 5,000 unit Q12HR GABE Administration Hydralazine HCl 10 mg 08/21/23 10:56 Hydralazine Hcl 20 Mg/Ml 1 Ml Vial IVP Q6HR PRN Blood Pressure - High Hydralazine HCl 50 mg 08/23/23 13:00 08/24/23 21:57 Hydralazine Hcl 50 Mg Tab PO 50 mg QID GABE Administration Ceftriaxone Sodium 2 gm/ 50 mls @ 100 mls/hr 08/22/23 00:00 08/25/23 00:07 Sodium Chloride IVPB 100 mls/hr Q24H GABE Administration Protocol Sodium Chloride 1,000 mls @ 50 mls/hr 08/23/23 11:00 08/25/23 05:24 Saline 0.9% IV Not Given .Q20H GABE Miscellaneous Information 1 each 08/21/23 08:33 Magnesium Replacement Protocol 1 Each Misc MISCELLANE DAILY PRN Per Protocol Protocol Naloxone HCl 0.2 mg 08/21/23 01:02 Naloxone 0.4 Mg/Ml 1 Ml Vial IV Q2M PRN Opioid Reversal Suboxone ( 1 film 08/21/23 13:00 08/24/23 20:50 Buprenorphine/ SUBLINGUAL 1 film Naloxone) 2 Mg-0.5 BID GABE Administration Mg Sl Film Ondansetron HCl 4 mg 08/22/23 01:13 08/23/23 12:07 Ondansetron 4 Mg/2 Ml Vial IVP 4 mg Q6HR PRN Administration Nausea And Vomiting Sodium Bicarbonate 650 mg 08/21/23 10:00 08/24/23 20:50 Sodium Bicarbonate Tab 650 Mg Tab PO 650 mg BID GABE Administration Tamsulosin HCl 0.4 mg 08/21/23 17:30 08/24/23 17:53 Tamsulosin 0.4 Mg Cap.Er.24h PO 0.4 mg AC-SUPPER GABE Administration Intake and Output 08/24/23 08/25/23 08/25/23 22:59 06:59 14:59 Intake Total 246 Balance 246 Intake: Oral 246 Other: Voiding Method Toilet Urinal # Voids 4 4 08/24/23 07:59 08/24/23 07:59
[2023-08-25 10:40] LABS: HCT 22.7 % (39.6-50.0); HGB 6.7 g/dL (13.0-17.0); MCH 30.3 pg (27.0-32.0); MCHC 29.5 g/dL (32.0-37.0); MCV 102.7 FL (80.0-97.0); Mean Platelet Volume 9.8 FL (9.5-12.2); NRBC Per 100 WBC 0 X 10*3/uL (0.00-0.01); Platelet Count 196 X 10*3/uL (140-440); RBC 2.21 X 10*6/uL (4.40-5.60); RDW 15.5 % (11.5-14.5); WBC 4.87 X 10*3/uL (4.50-10.00)
[2023-08-25 11:13] LABS: ALT 21 U/L (10-49); AST 23 U/L (14-35); Albumin 2.6 g/dL (3.8-4.9); Albumin/Globulin Ratio 1.08 Ratio (1.60-3.17); Alkaline Phosphatase 66 U/L (41-126); BUN/Creat Ratio 11.61 Ratio (12.00-20.00); Blood Urea Nitrogen 20.9 mg/dL (9.0-27.0); Calcium 7.9 mg/dL (8.7-10.3); Chloride 108 mmol/L (96-109); Globulin 2.4 g/dL (1.6-3.3); Glucose 91 mg/dL (70-110); Magnesium 1.7 mg/dL (1.5-2.4); Potassium 4.9 mmol/L (3.5-5.5); Sodium 136 mmol/L (135-145); Total Bilirubin <0.2 mg/dL (0.3-1.2)
--- NOTE | 2023-08-25 12:28 | P.PN ---
Subjective Patient is seen in follow-up for acute kidney injury. Renal function stable. Tolerating oral intake. No vomiting or diarrhea. No active complaints. Hemoglobin 6.7 today. No active bleeding. Scheduled to receive a unit of blood today. Vital signs are stable. General: No acute distress. HEENT: Head exam is unremarkable. LUNGS: No audible rhonchi or wheezes. HEART: Rate and Rhythm are regular. ABDOMEN: Nontender. EXTREMITITES: No edema. Objective - Vital Signs Vital signs: Vital Signs Temp 97.8 F 08/25/23 07:57 Pulse 60 08/25/23 07:57 Resp 16 08/25/23 07:57 BP 173/81 08/25/23 07:57 Pulse Ox 99 08/25/23 07:57 FiO2 Intake & Output 08/24/23 08/25/23 08/25/23 18:59 06:59 18:59 Intake Total 836 472 Balance 836 472 Intake: Oral 836 472 Other: Voiding Method Toilet Toilet Toilet Urinal Urinal Urinal # Voids 4 4 - Labs CBC & Chem 7: 08/25/23 06:51 08/25/23 06:51 Labs: Abnormal Lab Results - Last 24 Hours (Table) 08/24/23 08/25/23 08/25/23 Range/Units 07:59 06:51 06:51 RBC 2.21 L (4.40-5.60) X 10*6/uL Hgb 6.7 A* (13.0-17.0) g/dL Hct 22.7 L (39.6-50.0) % MCV 102.7 H (80.0-97.0) FL MCHC 29.5 L (32.0-37.0) g/dL RDW 15.5 H (11.5-14.5) % Creatinine 1.8 H (0.6-1.5) mg/dL Est GFR (CKD-EPI) 39 L (>=60) BUN/Creatinine Ratio 11.61 L (12.00-20.00) Ratio Calcium 7.9 L (8.7-10.3) mg/dL Total Bilirubin <0.2 L (0.3-1.2) mg/dL Total Protein 5.0 L (6.2-8.2) g/dL Total Protein (PEP) 5.8 L (6.2-8.2) g/dL Albumin 2.6 L (3.8-4.9) g/dL Albumin/Globulin Ratio 1.08 L (1.60-3.17) Ratio NAKUL Screen POSITIVE A (Negative) Microbiology - Last 24 Hours (Table) 08/20/23 23:30 Blood Culture - Preliminary Blood 08/20/23 23:15 Blood Culture - Preliminary Blood Assessment and Plan Plan: Assessment: 1. Acute kidney injury secondary to vasomotor nephropathy secondary to hypovolemia and infection. Creatinine 2.17 on admission - 1.8 today. CAT scan showed bilateral nonobstructing nephrolithiasis. Creatinine since July 2023 has been in the range of 1.4-1.7 - appears to be nonrecovered ATN from severe se psis/obstructive uropathy. Patient had right ureteral stent removed in May 2023. 2. Metabolic acidosis secondary to acute kidney injury, IV fluids and GI losses. Status post bicarb drip. 3. Anemia. Mild iron deficiency noted. Status post IV iron this admission. On Aranesp. Denies any active bleeding. Scheduled to receive a unit of blood today. 4. History of Crohn's disease. 5. Bilateral nephrolithiasis. 6. MRSA UTI and bacteremia in April 2023. 7. UA suggestive of UTI. On antibiotics. 8. Hypomagnesemia from GI losses. Replaced. Improved. Plan: Maintain normal saline. Encouraged oral intake. Follow-up cultures. Avoid nephrotoxins. Continue to monitor renal function and urine output. Follow-up serologies. Negative so far except for positive NAKUL. Increase dose of hydralazine to 75 mg. Hold for systolic blood pressure less than 120. Advised patient to follow-up outpatient to establish CKD care.
[2023-08-25] MEDS: hydrALAZINE HCL 25 MG TAB PO SCH (12:44)
[2023-08-25 14:03] LABS: C-ANCA <1:20 Titer (<1:20)
[2023-08-25 14:26] VITALS: RESP 15
--- NOTE | 2023-08-25 14:35 | P.PN ---
Subjective Progress Note Date: 08/23/23 Principal diagnosis: Reason for follow-up is a complicated UTI Patient is a 73-year-old male with a past medical history significant for atrial fibrillation hypertension hyperlipidemia pneumonia reflux history of chron's disease and anxiety and the patient recently has been treated with multiple courses of antibiotic for UTI including Ceftin and Cipro and Bactrim DS, presented to hospital with abnormal labs did have significant urinary symptoms positive UA concerning for symptomatic UTI. On today's evaluation that is 08/23/2023, Patient is afebrile patient is cur rently on room air and denies having any shortness of breath, the patient denies any chest pain or cough, the patient denies any nausea vomiting urinary symptoms Improved still complains of feeling weak no energy. Patient did have a creatinine 1.7 no CBC was done today cultures currently pending Objective - Vital Signs Vital signs: Vital Signs Temp 98.5 F 08/23/23 13:33 Pulse 82 08/23/23 13:33 Resp 14 08/23/23 13:33 BP 156/75 08/23/23 13:33 Pulse Ox 97 08/23/23 13:33 FiO2 Intake & Output 08/22/23 08/23/23 08/23/23 18:59 06:59 18:59 Intake Total 236 118 Output Total 50 900 Balance 186 -900 118 Weight 63.503 kg Intake: Oral 236 118 Output: Urine 50 900 Other: Voiding Method Urinal Toilet Toilet Urinal Urinal # Voids 3 1 1 - Exam GENERAL DESCRIPTION: An elderly male lying in bed in no distress RESPIRATORY SYSTEM: Unlabored breathing , decreased breath sounds at bases HEART: S1 S2 regular rate and rhythm , ABDOMEN: Soft , no tenderness EXTREMITIES: No edema feet - Labs CBC & Chem 7: 08/25/23 06:51 08/25/23 06:51 Labs: Abnormal Lab Results - Last 24 Hours (Table) 08/23/23 08/23/23 Range/Units 06:35 11:23 Chloride 111 H (96-109) mmol/L Creatinine 1.7 H (0.6-1.5) mg/dL Est GFR (CKD-EPI) 42 L (>=60) Calcium 7.6 L (8.7-10.3) mg/dL Urine Protein 2+ H (Negative) Urine Glucose (UA) 1+ H (Negative) Urine Blood Small H (Negative) Ur Leukocyte Esterase Large H (Negative) Urine RBC 13 H (0-5) /hpf Urine WBC >182 H (0-5) /hpf Urine WBC Clumps Few H (None) /hpf Urine Bacteria Rare H (None) /hpf Microbiology - Last 24 Hours (Table) 08/20/23 23:30 Blood Culture - Preliminary Blood 08/20/23 23:15 Blood Culture - Preliminary Blood 08/21/23 20:59 Urine Culture - Final Urine,Clean Catch Assessment and Plan (1) Urinary tract infection Current Visit: Yes Status: Acute Code(s): N39.0 - URINARY TRACT INFECTION, SITE NOT SPECIFIED SNOMED Code(s): 68139230 Plan: 1patient presented to hospital with electrolyte abnormality however the patient did have significant urinary symptoms positive UA and abdominal CT concerning for complicated UTI in this patient who did have a history of MRSA UTI and bacteremia back in April 2023 2-patient with a mild renal insufficiency high risk of nephrotoxicity 3-patient currently being treated with Rocephin 2 g daily along with daptomycin while waiting for the culture to finalize and continue with supportive care Dictation was produced using [employer] dictation software. please excuse any g rammatical, word or spelling errors. Time with Patient: Less than 30
--- NOTE | 2023-08-25 14:36 | P.PN ---
Subjective Progress Note Date: 08/24/23 Principal diagnosis: Reason for follow-up is a complicated UTI Patient is a 73-year-old male with a past medical history significant for atrial fibrillation hypertension hyperlipidemia pneumonia reflux history of chron's disease and anxiety and the patient recently has been treated with multiple courses of antibiotic for UTI including Ceftin and Cipro and Bactrim DS, presented to hospital with abnormal labs did have significant urinary symptoms positive UA concerning for symptomatic UTI. On today's evaluation that is 08/24/2023, patient has been afebrile, patient is breathing comfortably and is currently on room air, patient denies having any significant cough no chest pain shortness of breath, patient denies nausea vomiting or diarrhea and no abdominal pain, feeling slightly better today. Patient did have a white count of 5.4, creatinine 1.72 urine culture has been negative so far blood culture negative Objective - Vital Signs Vital signs: Vital Signs Temp 98.1 F 08/24/23 08:00 Pulse 77 08/24/23 08:00 Resp 16 08/24/23 08:00 BP 149/59 08/24/23 08:00 Pulse Ox 97 08/24/23 08:00 FiO2 Intake & Output 08/23/23 08/24/23 08/24/23 18:59 06:59 18:59 Intake Total 118 118 Output Total 128 850 Balance -10 -850 118 Intake: Oral 118 118 Output: Urine 850 Post Void Residual 128 Other: Voiding Method Toilet Toilet Toilet Urinal Urinal Urinal # Voids 1 1 - Exam GENERAL DESCRIPTION: An elderly male lying in bed in no distress RESPIRATORY SYSTEM: Unlabored breathing , decreased breath sounds at bases HEART: S1 S2 regular rate and rhythm , ABDOMEN: Soft , no tenderness EXTREMITIES: No edema feet - Labs CBC & Chem 7: 08/25/23 06:51 08/25/23 06:51 Labs: Abnormal Lab Results - Last 24 Hours (Table) 08/23/23 08/23/23 08/24/23 Range/Units 06:35 11:23 07:59 RBC 2.61 L (4.30-5.90) m/uL Hgb 7.9 L (13.0-17.5) gm/dL Hct 26.9 L (39.0-53.0) % MCV 103.2 H (80.0-100.0) fL MCHC 29.5 L (31.0-37.0) g/dL Chloride 111 H (96-109) mmol/L BUN (9-20) mg/dL Creatinine 1.7 H (0.6-1.5) mg/dL Est GFR (CKD-EPI) 42 L (>=60) Calcium 7.6 L (8.7-10.3) mg/dL Total Protein (6.3-8.2) g/dL Albumin (3.5-5.0) g/dL Urine Protein 2+ H (Negative) Urine Glucose (UA) 1+ H (Negative) Urine Blood Small H (Negative) Ur Leukocyte Esterase Large H (Negative) Urine RBC 13 H (0-5) /hpf Urine WBC >182 H (0-5) /hpf Urine WBC Clumps Few H (None) /hpf Urine Bacteria Rare H (None) /hpf 08/24/23 Range/Units 07:59 RBC (4.30-5.90) m/uL Hgb (13.0-17.5) gm/dL Hct (39.0-53.0) % MCV (80.0-100.0) fL MCHC (31.0-37.0) g/dL Chloride 112 H (96-109) mmol/L BUN 21 H (9-20) mg/dL Creatinine 1.72 H (0.6-1.5) mg/dL Est GFR (CKD-EPI) (>=60) Calcium 8.0 L (8.7-10.3) mg/dL Total Protein 5.5 L (6.3-8.2) g/dL Albumin 2.3 L (3.5-5.0) g/dL Urine Protein (Negative) Urine Glucose (UA) (Negative) Urine Blood (Negative) Ur Leukocyte Esterase (Negative) Urine RBC (0-5) /hpf Urine WBC (0-5) /hpf Urine WBC Clumps (None) /hpf Urine Bacteria (None) /hpf Microbiology - Last 24 Hours (Table) 08/20/23 23:30 Blood Culture - Preliminary Blood 08/20/23 23:15 Blood Culture - Preliminary Blood 08/21/23 20:59 Urine Culture - Final Urine,Clean Catch Assessment and Plan (1) Urinary tract infection Current Visit: Yes Status: Acute Code(s): N39.0 - URINARY TRACT INFECTION, SITE NOT SPECIFIED SNOMED Code(s): 88628599 Plan: 1patient presented to hospital with electrolyte abnormality however the patient did have significant urinary symptoms positive UA and abdominal CT concerning for complicated UTI in this patient who did have a history of MRSA UTI and bacteremia back in April 2023 2-patient with a mild renal insufficiency high risk of nephrotoxicity 3-patient blood and urine culture have been negative for resistant pathogen we will discontinue daptomycin continue with Rocephin and the patient continued to improve to finish therapy with oral Ceftin Dictation was produced using [employer] dictation software. please excuse any grammatical, word or spelling errors. Time with Patient: Less than 30
--- NOTE | 2023-08-25 14:37 | P.PN ---
Subjective Progress Note Date: 08/25/23 Principal diagnosis: Reason for follow-up is a complicated UTI Patient is a 73-year-old male with a past medical history significant for atrial fibrillation hypertension hyperlipidemia pneumonia reflux history of chron's disease and anxiety and the patient recently has been treated with multiple courses of antibiotic for UTI including Ceftin and Cipro and Bactrim DS, presented to hospital with abnormal labs did have significant urinary symptoms positive UA concerning for symptomatic UTI. On today's evaluation that is 08/25/2023,the patient denies any fever or any chills, patient is breathing comfortably on room air, the patient denies chest pain shortness of breath and no significant cough, patient denies abdominal pain, no nausea vomiting or diarrhea. Feeling slightly better today no new symptoms did have low hemoglobin currently waiting for blood transfusion. Patient did have a white count of 4.87 creatinine is 1.8 Objective - Vital Signs Vital signs: Vital Signs Temp 97.8 F 08/25/23 07:57 Pulse 60 08/25/23 07:57 Resp 16 08/25/23 07:57 BP 173/81 08/25/23 07:57 Pulse Ox 99 08/25/23 07:57 FiO2 Intake & Output 08/24/23 08/25/23 08/25/23 18:59 06:59 18:59 Intake Total 836 472 Balance 836 472 Intake: Oral 836 472 Other: Voiding Method Toilet Toilet Toilet Urinal Urinal Urinal # Voids 4 4 - Exam GENERAL DESCRIPTION: An elderly male lying in bed in no distress RESPIRATORY SYSTEM: Unlabored breathing , decreased breath sounds at bases HEART: S1 S2 regular rate and rhythm , ABDOMEN: Soft , no tenderness EXTREMITIES: No edema feet - Labs CBC & Chem 7: 08/25/23 06:51 08/25/23 06:51 Labs: Abnormal Lab Results - Last 24 Hours (Table) 08/24/23 08/25/23 08/25/23 Range/Units 07:59 06:51 06:51 RBC 2.21 L (4.40-5.60) X 10*6/uL Hgb 6.7 A* (13.0-17.0) g/dL Hct 22.7 L (39.6-50.0) % MCV 102.7 H (80.0-97.0) FL MCHC 29.5 L (32.0-37.0) g/dL RDW 15.5 H (11.5-14.5) % Creatinine 1.8 H (0.6-1.5) mg/dL Est GFR (CKD-EPI) 39 L (>=60) BUN/Creatinine Ratio 11.61 L (12.00-20.00) Ratio Calcium 7.9 L (8.7-10.3) mg/dL Total Bilirubin <0.2 L (0.3-1.2) mg/dL Total Protein 5.0 L (6.2-8.2) g/dL Total Protein (PEP) 5.8 L (6.2-8.2) g/dL Albumin 2.6 L (3.8-4.9) g/dL Albumin/Globulin Ratio 1.08 L (1.60-3.17) Ratio NAKUL Screen POSITIVE A (Negative) Microbiology - Last 24 Hours (Table) 08/20/23 23:30 Blood Culture - Preliminary Blood 08/20/23 23:15 Blood Culture - Preliminary Blood Assessment and Plan (1) Urinary tract infection Current Visit: Yes Status: Acute Code(s): N39.0 - URINARY TRACT INFECTION, SITE NOT SPECIFIED SNOMED Code(s): 55148794 Plan: 1patient presented to hospital with electrolyte abnormality however the patient did have significant urinary symptoms positive UA and abdominal CT concerning for complicated UTI in this patient who did have a history of MRSA UTI and ba cteremia back in April 2023 2-patient with a mild renal insufficiency high risk of nephrotoxicity 3-patient blood and urine culture have been negative for resistant pathogen 4patient seem to have show clinical improvement on Rocephin we will plan on finishing therapy with oral Ceftin x 2 weeks prescription has been sent to the pharmacy and close outpatient follow-up Dictation was produced using [employer] dictation software. please excuse any grammatical, word or spelling errors. Time with Patient: Less than 30
[2023-08-25 16:46] VITALS: BP 137/93; PULSE 61; TEMP 98.3
[2023-08-26 08:02] LABS: Albumin 2.66 g/dL (3.80-4.90); Gamma Globulin 1.47 g/dL (0.70-1.50)
== END 2023-08-25 17:45 | disposition home or self-care (01) | DRG 689 ==
LOC: EC 20:46 → 6NMEDSUR 08-21 01:02 → OBSVTOIN 08-23 08:33
PROVIDERS: ADMIT Family Medicine; ATTEND Family Medicine
DX: N39.0 Urinary tract infection, site not specified (principal); N17.0 Acute kidney failure with tubular necrosis; F11.20 Opioid dependence, uncomplicated; K50.90 Crohn's disease, unspecified, without complications; Z59.00 Homelessness unspecified; M06.9 Rheumatoid arthritis, unspecified; N18.9 Chronic kidney disease, unspecified; E78.5 Hyperlipidemia, unspecified; F41.9 Anxiety disorder, unspecified; I12.9 Hypertensive chronic kidney disease with stage 1 through stage 4 chronic kidney disease, or unspecified chronic kidney disease; I48.0 Paroxysmal atrial fibrillation; E83.42 Hypomagnesemia; F10.20 Alcohol dependence, uncomplicated; E86.1 Hypovolemia; K21.00 Gastro-esophageal reflux disease with esophagitis, without bleeding; M10.9 Gout, unspecified; D50.9 Iron deficiency anemia, unspecified; E11.22 Type 2 diabetes mellitus with diabetic chronic kidney disease; H91.90 Unspecified hearing loss, unspecified ear; K21.9 Gastro-esophageal reflux disease without esophagitis; Z86.79 Personal history of other diseases of the circulatory system; E11.42 Type 2 diabetes mellitus with diabetic polyneuropathy; L40.9 Psoriasis, unspecified; E11.21 Type 2 diabetes mellitus with diabetic nephropathy; Z86.14 Personal history of Methicillin resistant Staphylococcus aureus infection; I44.4 Left anterior fascicular block; I44.0 Atrioventricular block, first degree; Z79.899 Other long term (current) drug therapy; Z87.440 Personal history of urinary (tract) infections; Z87.11 Personal history of peptic ulcer disease; Z87.442 Personal history of urinary calculi; Z87.891 Personal history of nicotine dependence; Z90.3 Acquired absence of stomach [part of]; Z87.19 Personal history of other diseases of the digestive system; Z98.42 Cataract extraction status, left eye; Z98.41 Cataract extraction status, right eye; Z91.041 Radiographic dye allergy status
CPT/HCPCS: 36415; 74176; 80048; 80053; 80074; 81001; 82550; 82552; 82728; 83540; 83550; 83605; 83735; 84165; 84484; 85025; 85027; 86038; 86039; 86160; 86225; 86255; 86334; 86850; 86900; 86901; 86920; 87040; 87086; 93005; 96361; 96365; 96366; 96375; 96376; 99285

== ENCOUNTER 2023-08-30 10:35 | Inpatient (IN) | payer BC, MEDICARE ==
--- NOTE | 2023-08-30 11:33 | ED ---
Recheck HPI - General Chief Complaint: Recheck/Abnormal Lab/Rx Stated Complaint: Abn labs Time Seen by Provider: 08/30/23 10:54 Source: patient, RN notes reviewed Mode of arrival: ambulatory Limitations: no limitations - History of Present Illness Initial Comments: This is a 73-year-old male who presents to the emergency department for abnormal blood work. Patient was discharged from this facility on 08/24 after being admitted for a UTI, renal stones, and REGGIE. States that after discharge he followed up with multiple specialists. He saw his PCP yesterday and had repeat blood work done. He states that he received a phone call saying that his potass ium was elevated and his kidney function was also poor and he was advised to come to the emergency department. Denies any chest pain or shortness of breath. He does note swelling in his extremities that began on 08/24. These are somewhat tender to the touch but otherwise not painful. States that he does continue to have urinary symptoms in terms of urgency and frequency. - Related Data Home Medications Medication Instructions Recorded Confirmed amLODIPine [Norvasc] 10 mg PO DIRECTED 10/18/20 08/30/23 Adalimumab [Humira(Cf) Pen] 40 mg SQ Q14D 08/16/22 08/30/23 Buprenorphine HCl/Naloxone HCl 1 film SL BID 08/16/22 08/30/23 [Suboxone 2 mg-0.5 mg Sl Film] Omeprazole [PriLOSEC] 20 mg PO BID 05/19/23 08/30/23 Tamsulosin [Flomax] 0.4 mg PO BID 07/29/23 08/30/23 Previous Rx's Medication Instructions Recorded Sodium Bicarbonate Tab 650 mg PO BID #60 tablet 08/02/23 cefUROXime axetiL [Ceftin] 500 mg PO BID #30 tab 08/25/23 hydrALAZINE HCL [Apresoline] 50 mg PO QID 30 Days #120 tab 08/25/23 Allergies Allergy/AdvReac Type Severity Reaction Status Date / Time Iodinated Contrast Media Allergy Anaphylaxis Verified 08/30/23 12:16 [Iodinated Contrast Media - IV Dye] Review of Systems ROS Statement: Those systems with pertinent positive or pertinent negative responses have been documented in the HPI. ROS Other: All systems not noted in ROS Statement are negative. Past Medical History Past Medical History: Atrial Fibrillation, Blood Disorder, Eye Disorder, GERD/Reflux, GI Bleed, Hearing Disorder / Deafness, Hyperlipidemia, Hypertension, Musculoskeletal Disorder, Pneumonia, Rheumatoid Arthritis (RA), Skin Disorder, Supraventricular Tachycardia (SVT) Additional Past Medical History / Comment(s): hx CROHN'S (takes tresa), IBS, chronic diarrhea, migraines-, hx ulcers, anemia, gout, kidney stones, psoriasis, bilateral tinnitis., pinched sciatic nerve, C-Diff 2017, neuropathy, COMPLICATED UTI PYELONEPHRITIS, HEART RATE NORMALLY 50'S History of Any Multi-Drug Resistant Organisms: C-DIFF, MRSA Date of last positivie culture/infection: stool MDRO Source:: 2017 Past Surgical History: Ablation, Bowel Resection, Cardiac Ablation, Cholecystectomy, Heart Catheterization, Hernia Repair, Joint Replacement, Orthopedic Surgery, Tonsillectomy Additional Past Surgical History / Comment(s): 1/3 of stomach removed (partial gastrectomy), ulcers, bowel resections, fecal transplant 2016, bilateral knee arthroscopic surgery, EGD/colonoscopies, R inguinal hernia repair, bilat cataract removal, TOTAL LEFT KNEE. MULTIPLE CYSTOS, PICC 05/11 Past Anesthesia/Blood Transfusion Reactions: Blood Transfusion Reaction, Motion Sickness Additional Past Anesthesia/Blood Transfusion Reaction / Comment(s): BLOOD TRANSFUSION- BROKE OUT IN HIVES age 21 Past Psychological History: Anxiety Smoking Status: Never smoker Past Alcohol Use History: None Reported, Occasional Past Drug Use History: None Reported - Past Family History Mother Family Medical History: Pulmonary Embolus Additional Family Medical History / Comment(s): AGE 73-[place], STROKE DURING CARATID PROCEDURE General Exam Limitations: no limitations General appearance: alert, in no apparent distress Head exam: Present: atraumatic, normocephalic, normal inspection Respiratory exam: Present: normal lung sounds bilaterally. Absent: respiratory distress, wheezes, rales, rhonchi, stridor Cardiovascular Exam: Present: regular rate, normal rhythm, normal heart sounds. Absent: systolic murmur, diastolic murmur, rubs, gallop, clicks Extremities exam: Present: other (Edema to the bilateral lower extremities. Overlying tenderness. No erythema or warmth.) Neurological exam: Present: alert, oriented X3, CN II-XII intact Psychiatric exam: Present: normal affect, normal mood Skin exam: Present: warm, dry, intact, normal color. Absent: rash Course Vital Signs 08/30/23 08/30/23 10:48 13:20 Temperature 97.6 F Pulse Rate 63 57 L Respiratory 16 16 Rate Blood Pressure 183/87 174/88 O2 Sat by Pulse 100 99 Oximetry Medical Decision Making - Medical Decision Making This is a 73 year old male who presents to the emergency department for abnormal blood work. Was pt. sent in by a medical professional or institution? @ -His PCP Did you speak to anyone other than the patient for history? @ -No Did you review nursing and triage notes? @ -Yes, and I agree, it is accurate with regards to the patient's symptoms. Were old charts reviewed? @ -Lab work from 08/29/23 demonstrating hyperkalemia with a potassium of 7.0. Creatinine 2.09 and GFR 33. Urine culture from 08/21/2023 was negative. Differential Diagnosis? @ -Differential Hyperkalemia: Medications, renal failure, DM, trauma, this is not meant to be an all-inclusive list. EKG interpreted by me (3pts min.)? @ -EKG interpreted by me demonstrating the following: Sinus rhythm. Ventricular rate 61 bpm, IN interval 285 ms, QRS duration 119 ms, QTc 424 ms. X-rays interpreted by me (1pt min.)? @ -Not obtained CT interpreted by me (1pt min.)? @ -Not obtained U/S interpreted by me (1pt. min.)? @ -Not obtained What testing was considered but not performed? (CT, X-rays, U/S, labs)? Why? @ -None What meds were considered but not given? Why? @ -None Did you discuss the management of the patient with other professionals? @ -Yes, Dr. Saldaña, who accepts the patient for admission. Requests consult for ID regarding persistent UTI. Did you reconcile home meds? @ -Yes Was smoking cessation discussed for >3mins.? @ -No Was critical care preformed (if so, how long)? @ -No Were there social determinants of health that impacted care today? How? (Homelessness, low income, unemployed, alcoholism, drug addiction, transportation, low edu. Level, literacy, decrease access to med. care, penitentiary, rehab)? @ -No Was there de-escalation of care discussed even if they declined? (Discuss DNR or withdrawal of care, Hospice)? @ -No What co-morbidities impacted this encounter? (DM, HTN, Smoking, COPD, CAD, Cancer, CVA, Hep., AIDS, mental health diagnosis, sleep apnea, morbid obesity)? @ -HLD, HTN, renal disease Was patient admitted / discharged? @ -Admitted. Lab work demonstrates hyperkalemia with a potassium of 5.9. This is decreased when compared with yesterday at 7.0. Calcium gluconate and Lokelma administered. Renal function has also decreased when compared with prior. Creatinine is 2.06 and GFR 31. Patient does have swelling in the bilateral lower extremities. BNP elevated at 3150. Urinalysis also appears to be consistent with persistent infection. Urine culture from 08/21/2023 did not grow any organisms. Ceftriaxone administered. Blood and urine cultures obtained. Patient admitted to medicine for hyperkalemia and persistent UTI. Consult placed for infectious disease regarding persistent UTI. Maintenance fluids initiated as well due to decreased renal function and hyperkalemia. Undiagnosed new problem with uncertain prognosis? @ -None Drug Therapy requiring intensive monitoring for toxicity (Heparin, Nitro, Insulin, Cardizem)? @ -None Were any procedures done? @ -None Diagnosis/symptom? @ -Hyperkalemia, UTI Acute, or Chronic, or Acute on Chronic? @ -Acute Uncomplicated (without systemic symptoms) or Complicated (systemic symptoms)? @ -Uncomplicated Side effects of treatment? @ -None Exacerbation, Progression, or Severe Exacerbation] @ -Not applicable Poses a threat to life or bodily function? @ -Yes, hyperkalemia poses risk for potentially lethal cardiac arrhythmias. This case was discussed in detail with the attending ED physician, Dr. Galvan. Presentation, findings, and treatment plan discussed in detail as well. - Lab Data Result diagrams: 08/30/23 11:53 08/30/23 11:53 Lab Results 08/30/23 08/30/23 08/30/23 Range/Units 11:44 11:53 11:53 WBC 6.0 (3.8-10.6) k/uL RBC 3.10 L (4.30-5.90) m/uL Hgb 9.5 L D (13.0-17.5) gm/dL Hct 32.4 L (39.0-53.0) % MCV 104.3 H (80.0-100.0) fL MCH 30.7 (25.0-35.0) pg MCHC 29.4 L (31.0-37.0) g/dL RDW 14.7 (11.5-15.5) % Plt Count 198 (150-450) k/uL MPV 9.9 Neutrophils % 58 % Lymphocytes % 26 % Monocytes % 7 % Eosinophils % 5 % Basophils % 1 % Neutrophils # 3.5 (1.3-7.7) k/uL Lymphocytes # 1.5 (1.0-4.8) k/uL Monocytes # 0.5 (0-1.0) k/uL Eosinophils # 0.3 (0-0.7) k/uL Basophils # 0.1 (0-0.2) k/uL Hypochromasia Marked Macrocytosis Moderate PT 9.8 L (10.0-12.5) sec INR 0.9 (<1.2) APTT 24.5 (22.0-30.0) sec Sodium (137-145) mmol/L Potassium (3.5-5.1) mmol/L Chloride (98-107) mmol/L Carbon Dioxide (22-30) mmol/L Anion Gap mmol/L BUN (9-20) mg/dL Creatinine (0.66-1.25) mg/dL Est GFR (CKD-EPI)AfAm (>60 ml/min/1.73 sqM) Est GFR (CKD-EPI)NonAf (>60 ml/min/1.73 sqM) Glucose (74-99) mg/dL Calcium (8.4-10.2) mg/dL Phosphorus (2.5-4.5) mg/dL Magnesium (1.6-2.3) mg/dL Total Bilirubin (0.2-1.3) mg/dL AST (17-59) U/L ALT (4-49) U/L Alkaline Phosphatase (38-126) U/L NT-Pro-B Natriuret Pep pg/mL Total Protein (6.3-8.2) g/dL Albumin (3.5-5.0) g/dL Urine Color Colorless Urine Appearance Turbid (Clear) Urine pH 6.0 (5.0-8.0) Ur Specific [place] 1.017 (1.001-1.035) Urine Protein 2+ H (Negative) Urine Glucose (UA) Negative (Negative) Urine Ketones Negative (Negative) Urine Blood Small H (Negative) Urine Nitrite Negative (Negative) Urine Bilirubin Negative (Negative) Urine Urobilinogen <2.0 (<2.0) mg/dL Ur Leukocyte Esterase Large H (Negative) Urine RBC 54 H (0-5) /hpf Urine WBC >182 H (0-5) /hpf Urine WBC Clumps Many H (None) /hpf 08/30/23 Range/Units 11:53 WBC (3.8-10.6) k/uL RBC (4.30-5.90) m/uL Hgb (13.0-17.5) gm/dL Hct (39.0-53.0) % MCV (80.0-100.0) fL MCH (25.0-35.0) pg MCHC (31.0-37.0) g/dL RDW (11.5-15.5) % Plt Count (150-450) k/uL MPV Neutrophils % % Lymphocytes % % Monocytes % % Eosinophils % % Basophils % % Neutrophils # (1.3-7.7) k/uL Lymphocytes # (1.0-4.8) k/uL Monocytes # (0-1.0) k/uL Eosinophils # (0-0.7) k/uL Basophils # (0-0.2) k/uL Hypochromasia Macrocytosis PT (10.0-12.5) sec INR (<1.2) APTT (22.0-30.0) sec Sodium 141 (137-145) mmol/L Potassium 5.9 H (3.5-5.1) mmol/L Chloride 120 H (98-107) mmol/L Carbon Dioxide 16 L (22-30) mmol/L Anion Gap 5 mmol/L BUN 34 H (9-20) mg/dL Creatinine 2.06 H (0.66-1.25) mg/dL Est GFR (CKD-EPI)AfAm 36 (>60 ml/min/1.73 sqM) Est GFR (CKD-EPI)NonAf 31 (>60 ml/min/1.73 sqM) Glucose 57 L (74-99) mg/dL Calcium 8.5 (8.4-10.2) mg/dL Phosphorus 4.9 H (2.5-4.5) mg/dL Magnesium 1.6 (1.6-2.3) mg/dL Total Bilirubin 0.3 (0.2-1.3) mg/dL AST 34 (17-59) U/L ALT 21 (4-49) U/L Alkaline Phosphatase 72 (38-126) U/L NT-Pro-B Natriuret Pep 3150 pg/mL Total Protein 6.7 (6.3-8.2) g/dL Albumin 2.9 L (3.5-5.0) g/dL Urine Color Urine Appearance (Clear) Urine pH (5.0-8.0) Ur Specific [place] (1.001-1.035) Urine Protein (Negative) Urine Glucose (UA) (Negative) Urine Ketones (Negative) Urine Blood (Negative) Urine Nitrite (Negative) Urine Bilirubin (Negative) Urine Urobilinogen (<2.0) mg/dL Ur Leukocyte Esterase (Negative) Urine RBC (0-5) /hpf Urine WBC (0-5) /hpf Urine WBC Clumps (None) /hpf Disposition Clinical Impression: Hyperkalemia, UTI (urinary tract infection) Disposition: ADMITTED IP TO THIS [facility] Time of Disposition: 15:20
[2023-08-30 12:26] LABS: Appearance,Urine Turbid (Clear); Bilirubin,Urine Negative (Negative); Blood,Urine Small (Negative); Color,Urine Colorless; Glucose,Urine (UA) Negative (Negative); Ketones,Urine Negative (Negative); Leukocyte Esterase,Urine Large (Negative); Nitrite,Urine Negative (Negative); Protein,Urine 2+ (Negative); RBC,Urine 54 /hpf (0-5); Specific Gravity,Urine 1.017 (1.001-1.035); Urobilinogen,Urine <2.0 mg/dL (<2.0); WBC,Urine >182 /hpf (0-5)
[2023-08-30 12:27] LABS: INR 0.9 (<1.2); Partial Thromboplastin Time 24.5 sec (22.0-30.0); Prothrombin Time 9.8 sec (10.0-12.5)
[2023-08-30 12:32] LABS: ALT 21 U/L (4-49); AST 34 U/L (17-59); African American GFR (CKD) 36 (>60 ml/min/1.73 sqM); Albumin 2.9 g/dL (3.5-5.0); Alkaline Phosphatase 72 U/L (38-126); Anion Gap 5 mmol/L; Blood Urea Nitrogen 34 mg/dL (9-20); Calcium 8.5 mg/dL (8.4-10.2); Carbon Dioxide 16 mmol/L (22-30); Chloride 120 mmol/L (98-107); Glucose 57 mg/dL (74-99); Magnesium 1.6 mg/dL (1.6-2.3); Non-African American GFR(CKD) 31 (>60 ml/min/1.73 sqM); Phosphorus 4.9 mg/dL (2.5-4.5); Potassium 5.9 mmol/L (3.5-5.1); Sodium 141 mmol/L (137-145); Total Bilirubin 0.3 mg/dL (0.2-1.3); Total Protein 6.7 g/dL (6.3-8.2)
[2023-08-30 12:39] LABS: NT-Pro-B-Type Natriuretic Pept 3150 pg/mL
[2023-08-30] MEDS: SODIUM ZIRCONIUM CYCLOSILICATE 10 GM PACKET PO ONE (13:05)
[2023-08-30] MEDS: CALCIUM GLUCONATE IN NACL 1 GM in SALINE 1 100ML.BAG IVPB ONE (13:06)
[2023-08-30 13:24] LABS: Basophils # (A) 0.1 k/uL (0-0.2); Basophils % (A) 1 %; Eosinophils # (A) 0.3 k/uL (0-0.7); Eosinophils % (A) 5 %; HCT 32.4 % (39.0-53.0); Hypochromasia Marked; Lymphocytes # (A) 1.5 k/uL (1.0-4.8); Lymphocytes % (A) 26 %; MCH 30.7 pg (25.0-35.0); MCHC 29.4 g/dL (31.0-37.0); MCV 104.3 fL (80.0-100.0); Macrocytosis Moderate; Mean Platelet Volume 9.9; Monocytes # (A) 0.5 k/uL (0-1.0); Monocytes % (A) 7 %; Neutrophils # (A) 3.5 k/uL (1.3-7.7); Neutrophils % (A) 58 %; Platelet Count 198 k/uL (150-450); RDW 14.7 % (11.5-15.5)
[2023-08-30 13:26] LABS: HGB 9.5 gm/dL (13.0-17.5)
[2023-08-30] MEDS: SODIUM CHLORIDE 0.9% 1,000 ML IV STA ×2 (14:44→16:57)
[2023-08-30] MEDS: cefTRIAXone IN SWFI 1,000 MG/10 ML SYRINGE IVP STA (14:45)
[2023-08-30] MEDS ORDERED: NALOXONE 0.4 MG/ML 1 ML VIAL IV PRN (15:20)
[2023-08-30] MEDS ORDERED: MORPHINE SULFATE 4 MG/ML SYRINGE IV PRN (15:20)
[2023-08-30] MEDS ORDERED: HYDROcodone/APAP 5-325MG 1 EACH TAB PO PRN (15:20)
[2023-08-30] MEDS ORDERED: NON FORMULARY DRUG (Adalimumab [Humira(Cf) Pen] 40 MG/0.4 ML Pen.Ij.Kit) SQ SCH (15:30)
[2023-08-30] MEDS: hydrALAZINE HCL 50 MG TAB PO SCH (18:41)
[2023-08-30] MEDS: TAMSULOSIN 0.4 MG CAP.ER.24H PO SCH (20:37)
[2023-08-30] MEDS: SODIUM BICARBONATE TAB 650 MG TAB PO SCH (20:37)
[2023-08-30] MEDS ORDERED: CEFDINIR 300 MG CAP PO SCH (21:00)
[2023-08-30] MEDS: NON FORMULARY DRUG (Buprenorphine Hcl/Naloxone Hcl [Suboxone 2 Mg-0.5 Mg Sl Film] 1 EACH F SUBLINGUAL SCH (21:33)
--- NOTE | 2023-08-31 07:01 | P.CONS ---
History of Present Illness - Reason for Consult Consult date: 08/30/23 - History of Present Illness Patient is a 73-year-old male with a past medical history significant for hypertension hyperlipidemia atrial fibrillation rheumatoid arthritis kidney stone and recurrent UTI recent admission to the hospital with electrolyte abnormality and UTI urine cultures were negative patient was discharged on oral Ceftin in view of response to IV Rocephin patient now presenting back to the [facility] complaining of increasing swelling to bilateral lower extremity and apparently the patient did have an outpatient blood work with evidence of elevated potassium for the patient was advised to go back to the hospital patient denies having any fever or any chills complaining of shortness of breath on exertion but no chest pain no cough some nausea no vomiting no abdominal pain patient complaining of burning of urine denies any difficulty urination and no deep pelvic pain no diarrhea patient on presentation to the hospital was afebrile patient was not tachycardic hypotensive or hypoxic patient did have white count of 6.0 creatinine 2.06 potassium was elevated liver enzymes are normal he did have a UA with large leukocyte esterase more than 182 WBC patient was given a dose of Rocephin continued on Omnicef infectious disease was consulted for further management of antibiotic therapy Past Medical History Past Medical History: Atrial Fibrillation, Blood Disorder, Eye Disorder, GERD/Reflux, GI Bleed, Hearing Disorder / Deafness, Hyperlipidemia, H ypertension, Musculoskeletal Disorder, Pneumonia, Rheumatoid Arthritis (RA), Skin Disorder, Supraventricular Tachycardia (SVT) Additional Past Medical History / Comment(s): hx CROHN'S (takes tresa), IBS, chronic diarrhea, migraines-, hx ulcers, anemia, gout, kidney stones, psoriasis, bilateral tinnitis., pinched sciatic nerve, C-Diff 2017, neuropathy, COMPLICATED UTI PYELONEPHRITIS, HEART RATE NORMALLY 50'S History of Any Multi-Drug Resistant Organisms: C-DIFF, MRSA Year Discovered:: stool MDRO Source:: 2017 Past Surgical History: Ablation, Bowel Resection, Cardiac Ablation, Cholecystectomy, Heart Catheterization, Hernia Repair, Joint Replacement, Orthopedic Surgery, Tonsillectomy Additional Past Surgical History / Comment(s): 13 of stomach removed (partial gastrectomy), ulcers, bowel resections, fecal transplant 2017, bilateral knee arthroscopic surgery, EGD/colonoscopies, R inguinal hernia repair, bilat cataract removal, TOTAL LEFT KNEE. MULTIPLE CYSTOS, PICC 05/11 Past Anesthesia/Blood Transfusion Reactions: Blood Transfusion Reaction, Motion Sickness Additional Past Anesthesia/Blood Transfusion Reaction / Comm: BLOOD TRANSFUSION- BROKE OUT IN HIVES age 21 Past Psychological History: Anxiety Smoking Status: Never smoker Past Alcohol Use History: None Reported, Occasional Past Drug Use History: None Reported - Past Family History Mother Family Medical History: Pulmonary Embolus Additional Family Medical History / Comment(s): AGE 73-[place], STROKE DURING CARATID PROCEDURE Medications and Allergies Home Medications Medication Instructions Recorded Confirmed Type amLODIPine [Norvasc] 10 mg PO DIRECTED 10/18/20 08/30/23 History Adalimumab [Humira(Cf) Pen] 40 mg SQ Q14D 08/16/22 08/30/23 History Buprenorphine HCl/Naloxone HCl 1 film SL BID 08/16/22 08/30/23 History [Suboxone 2 mg-0.5 mg Sl Film] Omeprazole [PriLOSEC] 20 mg PO BID 05/19/23 08/30/23 History Tamsulosin [Flomax] 0.4 mg PO BID 07/29/23 08/30/23 History Sodium Bicarbonate Tab 650 mg PO BID #60 tablet 08/02/23 08/30/23 Rx cefUROXime axetiL [Ceftin] 500 mg PO BID #30 tab 08/25/23 08/30/23 Rx hydrALAZINE HCL [Apresoline] 50 mg PO QID 30 Days #120 tab 08/25/23 08/30/23 Rx Allergies Allergy/AdvReac Type Severity Reaction Status Date / Time Iodinated Contrast Media Allergy Anaphylaxis Verified 08/30/23 12:16 [Iodinated Contrast Media - IV Dye] Physical Exam Vitals: Vital Signs Temp Pulse Resp BP Pulse Ox 08/30/23 16:57 76 16 174/88 98 08/30/23 13:20 57 L 16 174/88 99 08/30/23 10:48 97.6 F 63 16 183/87 100 Intake and Output 08/30/23 08/30/23 08/30/23 06:59 14:59 22:59 Other: Voiding Method Toilet Weight 63.503 kg Results CBC & Chem 7: 08/30/23 11:53 08/30/23 17:36 Labs: Abnormal Lab Results - Last 24 Hours (Table) 08/30/23 08/30/23 08/30/23 Range/Units 11:44 11:53 11:53 RBC 3.10 L (4.30-5.90) m/uL Hgb 9.5 L D (13.0-17.5) gm/dL Hct 32.4 L (39.0-53.0) % MCV 104.3 H (80.0-100.0) fL MCHC 29.4 L (31.0-37.0) g/dL PT 9.8 L (10.0-12.5) sec Potassium (3.5-5.1) mmol/L Chloride (98-107) mmol/L Carbon Dioxide (22-30) mmol/L BUN (9-20) mg/dL Creatinine (0.66-1.25) mg/dL Glucose (74-99) mg/dL Phosphorus (2.5-4.5) mg/dL Albumin (3.5-5.0) g/dL Urine Protein 2+ H (Negative) Urine Blood Small H (Negative) Ur Leukocyte Esterase Large H (Negative) Urine RBC 54 H (0-5) /hpf Urine WBC >182 H (0-5) /hpf Urine WBC Clumps Many H (None) /hpf 08/30/23 Range/Units 11:53 RBC (4.30-5.90) m/uL Hgb (13.0-17.5) gm/dL Hct (39.0-53.0) % MCV (80.0-100.0) fL MCHC (31.0-37.0) g/dL PT (10.0-12.5) sec Potassium 5.9 H (3.5-5.1) mmol/L Chloride 120 H (98-107) mmol/L Carbon Dioxide 16 L (22-30) mmol/L BUN 34 H (9-20) mg/dL Creatinine 2.06 H (0.66-1.25) mg/dL Glucose 57 L (74-99) mg/dL Phosphorus 4.9 H (2.5-4.5) mg/dL Albumin 2.9 L (3.5-5.0) g/dL Urine Protein (Negative) Urine Blood (Negative) Ur Leukocyte Esterase (Negative) Urine RBC (0-5) /hpf Urine WBC (0-5) /hpf Urine WBC Clumps (None) /hpf Assessment and Plan Plan: 1patient presented to hospital with weakness shortness of breath urinary symptoms of burning positive UA concerning for persistent/recurrent UTI and this patient did have a history of kidney stone could be related to the this episode of recurrent UTI patient did have elevated creatinine will need to rule out obstructive uropathy 2-we will check an close on the kidney and bladder area 3-discontinue Ceftin 4-start the patient Rocephin 2 g daily while waiting for the culture to finalize We will follow on clinical condition and cultures to further adjust medication if needed Thank you for this consultation we will follow the patient along with you Dictation was produced using [employer] dictation software. please excuse any grammatical, word or spelling errors. Time with Patient: Greater than 30
--- NOTE | 2023-08-31 08:09 | US ---
EXAMINATION TYPE: US kidneys/renal and bladder DATE OF EXAM: 08/31/2023 COMPARISON: CT 08/20/23 CLINICAL INDICATION: Male, 73 years old with history of uti and elevated Cr; Hx multiple renal stones EXAM MEASUREMENTS: Right Kidney: 12.1 x 6.2 x 5.4 cm Left Kidney: 12.3 x 5.2 x 5.4 cm Right Kidney: Numerous echogenic foci measuring up to 5 mm. There is a midpole cyst measuring 2.5 x 2 .7 x 2.3 cm Left Kidney: Numerous punctate echogenic foci measuring up to 4 mm. No hydronephrosis. Debris noted with wall thickening = 0.75 cm = 0.75 cm Bilateral JNos s : No IM SSION: 1. No hydronephrosis on either side. 2. Nonobstructive bilateral renal calculi measuring up to 5 mm. 3. A 2.7 cm midpole renal cyst on the right. 4. Thick-walled bladder containing debris. Correlate with urinalysis to exclude underlying infection.
--- NOTE | 2023-08-31 08:18 | P.HPIM ---
History of Present Illness H&P Date: 08/31/23 Chief Complaint: Hyperkalemia This is a history of physical a 73-year-old white male with this history of Crohn's colitis hypertensive nephrosclerosis with evidence of hyperkalemia 1 recheck for discharge follow-up several days ago. He was told to come in and his potassium was still elevated but he has had difficulty with chronic UTI. He was given daptomycin and still had significant leukocyte esterase positivity on admission today. He states he feels better after being given Rocephin. No fever but significant dysuria stated. The patient is also an opiate dependent treatment patient and he takes Suboxone. Review of Systems Constitutional: Denies chills, Denies fever Eyes: denies blurred vision, denies pain Ears, nose, mouth and throat: Denies headache, Denies sore throat Cardiovascular: Denies chest pain, Denies shortness of breath Respiratory: Denies cough Past Medical History Past Medical History: Atrial Fibrillation, Blood Disorder, Eye Disorder, GERD/Reflux, GI Bleed, Hearing Disorder / Deafness, Hyperlipidemia, Hypertension, Musculoskeletal Disorder, Pneumonia, Rheumatoid Arthritis (RA), Skin Disorder, Supraventricular Tachycardia (SVT) Additional Past Medical History / Comment(s): hx CROHN'S (takes tresa), IBS, chronic diarrhea, migraines-, hx ulcers, anemia, gout, kidney stones, psoriasis, bilateral tinnitis., pinched sciatic nerve, C-Diff 2017, neuropathy, COMPLICATED UTI PYELONEPHRITIS, HEART RATE NORMALLY 50'S History of Any Multi-Drug Resistant Organisms: C-DIFF, MRSA Date of last positivie culture/infection: stool MDRO Source:: 2017 Past Surgical History: Ablation, Bowel Resection, Cardiac Ablation, Cholecystectomy, Heart Catheterization, Hernia Repair, Joint Replacement, Orthopedic Surgery, Tonsillectomy Additional Past Surgical History / Comment(s): 1/3 of stomach removed (partial gastrectomy), ulcers, bowel resections, fecal transplant 2017, bilateral knee arthroscopic surgery, EGD/colonoscopies, R inguinal hernia repair, bilat cataract removal, TOTAL LEFT KNEE. MULTIPLE CYSTOS, PICC 05/11 Past Anesthesia/Blood Transfusion Reactions: Blood Transfusion Reaction, Motion Sickness Additional Past Anesthesia/Blood Transfusion Reaction / Comment(s): BLOOD TRANSFUSION- BROKE OUT IN HIVES age 21 Past Psychological History: Anxiety Smoking Status: Never smoker Past Alcohol Use History: None Reported, Occasional Past Drug Use History: None Reported - Past Family History Mother Family Medical History: Pulmonary Embolus Additional Family Medical History / Comment(s): AGE 73-OK, STROKE DURING CARATID PROCEDURE Medications and Allergies Home Medications Medication Instructions Recorded Confirmed Type amLODIPine [Norvasc] 10 mg PO DIRECTED 10/18/20 08/30/23 History Adalimumab [Humira(Cf) Pen] 40 mg SQ Q14D 08/16/22 08/30/23 History Buprenorphine HCl/Naloxone HCl 1 film SL BID 08/16/22 08/30/23 History [Suboxone 2 mg-0.5 mg Sl Film] Omeprazole [PriLOSEC] 20 mg PO BID 05/19/23 08/30/23 History Tamsulosin [Flomax] 0.4 mg PO BID 07/29/23 08/30/23 History Sodium Bicarbonate Tab 650 mg PO BID #60 tablet 08/02/23 08/30/23 Rx cefUROXime axetiL [Ceftin] 500 mg PO BID #30 tab 08/25/23 08/30/23 Rx hydrALAZINE HCL [Apresoline] 50 mg PO QID 30 Days #120 tab 08/25/23 08/30/23 Rx Allergies Allergy/AdvReac Type Severity Reaction Status Date / Time Iodinated Contrast Media Allergy Anaphylaxis Verified 08/30/23 12:16 [Iodinated Contrast Media - IV Dye] Physical Exam Vitals: Vital Signs Temp Pulse Resp BP Pulse Ox 08/31/23 02:00 55 L 18 158/71 99 08/30/23 21:33 54 L 16 174/74 98 08/30/23 18:42 57 L 16 153/112 98 08/30/23 16:57 76 16 174/88 98 08/30/23 13:20 57 L 16 174/88 99 08/30/23 10:48 97.6 F 63 16 183/87 100 - Constitutional General appearance: no acute distress, thin - EENT Eyes: EOMI - Neck Neck: no lymphadenopathy - Respiratory Respiratory: bilateral: CTA - Cardiovascular Rhythm: regular Heart sounds: normal: S1, S2 Abnormal Heart Sounds: no S3 Gallop - Gastrointestinal General gastrointestinal: soft, no tenderness - Integumentary Integumentary: no cellulitis - Neurologic Neurologic: CNII-XII intact Results CBC & Chem 7: 08/30/23 11:53 08/30/23 17:36 Labs: Abnormal Lab Results - Last 24 Hours (Table) 08/30/23 08/30/23 08/30/23 Range/Units 11:44 11:53 11:53 RBC 3.10 L (4.30-5.90) m/uL Hgb 9.5 L D (13.0-17.5) gm/dL Hct 32.4 L (39.0-53.0) % MCV 104.3 H (80.0-100.0) fL MCHC 29.4 L (31.0-37.0) g/dL PT 9.8 L (10.0-12.5) sec Potassium (3.5-5.1) mmol/L Chloride (98-107) mmol/L Carbon Dioxide (22-30) mmol/L BUN (9-20) mg/dL Creatinine (0.66-1.25) mg/dL Glucose (74-99) mg/dL Phosphorus (2.5-4.5) mg/dL Albumin (3.5-5.0) g/dL Urine Protein 2+ H (Negative) Urine Blood Small H (Negative) Ur Leukocyte Esterase Large H (Negative) Urine RBC 54 H (0-5) /hpf Urine WBC >182 H (0-5) /hpf Urine WBC Clumps Many H (None) /hpf 08/30/23 Range/Units 11:53 RBC (4.30-5.90) m/uL Hgb (13.0-17.5) gm/dL Hct (39.0-53.0) % MCV (80.0-100.0) fL MCHC (31.0-37.0) g/dL PT (10.0-12.5) sec Potassium 5.9 H (3.5-5.1) mmol/L Chloride 120 H (98-107) mmol/L Carbon Dioxide 16 L (22-30) mmol/L BUN 34 H (9-20) mg/dL Creatinine 2.06 H (0.66-1.25) mg/dL Glucose 57 L (74-99) mg/dL Phosphorus 4.9 H (2.5-4.5) mg/dL Albumin 2.9 L (3.5-5.0) g/dL Urine Protein (Negative) Urine Blood (Negative) Ur Leukocyte Esterase (Negative) Urine RBC (0-5) /hpf Urine WBC (0-5) /hpf Urine WBC Clumps (None) /hpf Assessment and Plan (1) Hyperkalemia Current Visit: Yes Status: Acute Code(s): E87.5 - HYPERKALEMIA SNOMED Code(s): 71957663 (2) Urinary tract infection Current Visit: Yes Status: Acute Code(s): N39.0 - URINARY TRACT INFECTION, SITE NOT SPECIFIED SNOMED Code(s): 17196145 (3) Chronic anemia Current Visit: No Status: Acute Code(s): D64.9 - ANEMIA, UNSPECIFIED SNOMED Code(s): 480707081 (4) Crohns disease Current Visit: No Status: Acute Code(s): K50.90 - CROHN'S DISEASE, UN SPECIFIED, WITHOUT COMPLICATIONS SNOMED Code(s): 85533338 (5) GERD (gastroesophageal reflux disease) Current Visit: No Status: Acute Code(s): K21.9 - GASTRO-ESOPHAGEAL REFLUX D ISEASE WITHOUT ESOPHAGITIS SNOMED Code(s): 999197519 (6) Nausea and vomiting Current Visit: No Status: Acute Code(s): R11.2 - NAUSEA WITH VOMITING, UNSPECIFIED SNOMED Code(s): 64616626 (7) Opiate dependence Current Visit: No Status: Acute Code(s): F11.20 - OPIOID DEPENDENCE, UNCOMPLICATED SNOMED Code(s): 82327013 (8) Gout Current Visit: No Status: Chronic Code(s): M10.9 - GOUT, UNSPECIFIED SNOMED Code(s): 51789865 (9) Rheumatoid arthritis Current Visit: No Status: Chronic Code(s): M06.9 - RHEUMATOID ARTHRITIS, UNSPECIFIED SNOMED Code(s): 25741967 Plan: Continue IV antibiotic treatment. Urine culture is pending. Hyperkalemia seems to be stabilizing. Check CBC and CMP in AM. Appreciate infectious disease input. Question need for urology if infection source is not ascertained. Time with Patient: Greater than 30
[2023-08-31] MEDS: PANTOPRAZOLE 40 MG TABLET PO SCH (08:40)
[2023-08-31] MEDS: amLODIPine 10 MG TAB PO SCH (08:45)
[2023-08-31 12:46] VITALS: BMI 17.9
[2023-08-31] MEDS: ACETAMINOPHEN TAB 325 MG TAB PO PRN (16:16)
[2023-08-31] MEDS: [UNRECOGNIZED DRUG - OTHER] SUBLINGUAL SCH (21:06)
[2023-08-31] MEDS: NALOXONE HCL SUBLINGUAL SCH (21:06)
[2023-08-31] MEDS: BUPRENORPHINE HCL SUBLINGUAL SCH (21:06)
--- NOTE | 2023-09-01 08:24 | P.PN ---
Subjective Progress Note Date: 09/01/23 This is a 73-year-old male who was sent to the ER for evaluation after abnormal labs in our office, patient had hyperkalemia and worsening kidney function. Patient recently admitted for difficulties with chronic UTIs, however culture at that time was normal. Patient still having complaints of dysuria and frequency. Blood culture completed and was positive, he remains on Rocephin. Infectious disease is on board. No growth to urine culture yet. Vitals are stable, no fever. Patient is tolerating diet. Objective - Vital Signs Vital signs: Vital Signs Temp 97.6 F 09/01/23 02:00 Pulse 62 09/01/23 02:00 Resp 15 09/01/23 02:00 BP 148/63 09/01/23 02:00 Pulse Ox 99 09/01/23 02:00 FiO2 Intake & Output 08/31/23 09/01/23 09/01/23 18:59 06:59 18:59 Intake Total 236 575 Balance 236 575 Weight 63.503 kg Intake: Intake, IV Titration 375 Amount Sodium Chloride 0.9% 1, 375 000 ml @ 75 mls/hr IV . [id number] STA Rx#:[id number] Oral 236 200 Other: Voiding Method Toilet Toilet # Voids 4 7 # Bowel Movements 1 - Constitutional General appearance: Present: cooperative, no acute distress - EENT Eyes: Present: PERRLA - Neck Neck: Present: normal ROM. Absent: lymphadenopathy, rigidity - Respiratory Respiratory: bilateral: CTA - Cardiovascular Heart sounds: normal: S1, S2 - Gastrointestinal General gastrointestinal: Present: soft. Absent: tenderness - Integumentary Integumentary: Present: normal, normal turgor - Psychiatric Psychiatric: Present: A&O x's 3 - Labs CBC & Chem 7: 08/30/23 11:53 08/30/23 17:36 Labs: Microbiology - Last 24 Hours (Table) 08/30/23 14:40 Blood Culture Gram Stain - Preliminary Blood Blood Culture - Preliminary Molecular ID 08/30/23 14:30 Blood Culture - Preliminary Blood 08/30/23 13:47 Urine Culture - Final Urine,Clean Catch Assessment and Plan (1) Hyperkalemia Current Visit: Yes Status: Acute Code(s): E87.5 - HYPERKALEMIA SNOMED Code(s): 83700455 (2) Urinary tract infection Current Visit: Yes Status: Acute Code(s): N39.0 - URINARY TRACT INFECTION, SITE NOT SPECIFIED SNOMED Code(s): 62425056 (3) Atrial fibrillation Current Visit: No Status: Acute Code(s): I48.91 - UNSPECIFIED ATRIAL FIBRILLATION SNOMED Code(s): 01982504 (4) Crohn's colitis Current Visit: No Status: Acute Code(s): K50.10 - CROHN'S DISEASE OF LARGE INTESTINE WITHOUT COMPLICATIONS SNOMED Code(s): 23292454 (5) GERD (gastroesophageal reflux disease) Current Visit: No Status: Acute Code(s): K21.9 - GASTRO-ESOPHAGEAL REFLUX DISEASE WITHOUT ESOPHAGITIS SNOMED Code(s): 631115764 (6) Hypertension Current Visit: No Status: Acute Code(s): I10 - ESSENTIAL (PRIMARY) HYPERTENSION SNOMED Code(s): 49944546 (7) Nausea and vomiting Current Visit: No Status: Acute Code(s): R11.2 - NAUSEA WITH VOMITING, UNSPECIFIED SNOMED Code(s): 58952982 (8) Opiate dependence Current Visit: No Status: Acute Code(s): F11.20 - OPIOID DEPENDENCE, UNCOMP LICATED SNOMED Code(s): 75989422 (9) Gout Current Visit: No Status: Chronic Code(s): M10.9 - GOUT, UNSPECIFIED SNOMED Code(s): 41967218 (10) Rheumatoid arthritis Current Visit: No Status: Chronic Code(s): M06.9 - RHEUMATOID ARTHRITIS, UNSPECIFIED SNOMED Code(s): 82712233 (11) Chronic anemia Current Visit: No Status: Acute Code(s): D64.9 - ANEMIA, UNSPECIFIED SNOMED Code(s): 731826449 Plan: Will start patient on IV fluids Check CBC and CMP in the morning Await final culture results. Will repeat UA. Patient seen and evaluated by nurse practitioner, physician in agreement with plan
[2023-09-01] MEDS: SODIUM CHLORIDE 0.45% 1,000 ML IV SCH (10:20)
[2023-09-01 11:38] LABS: Appearance,Urine Turbid (Clear); Bacteria,Urine Occasional /hpf; Bilirubin,Urine Negative (Negative); Blood,Urine Small (Negative); Color,Urine Colorless; Glucose,Urine (UA) Negative (Negative); Ketones,Urine Negative (Negative); Leukocyte Esterase,Urine Large (Negative); Mucus,Urine Rare /hpf; Nitrite,Urine Negative (Negative); Protein,Urine 2+ (Negative); RBC,Urine 37 /hpf (0-5); Specific Gravity,Urine 1.017 (1.001-1.035); Urobilinogen,Urine <2.0 mg/dL (<2.0); WBC,Urine >182 /hpf (0-5)
[2023-09-01 12:30] LABS: HCT 31.4 % (39.0-53.0); HGB 9.2 gm/dL (13.0-17.5); Hypochromasia Marked; MCH 30.6 pg (25.0-35.0); MCHC 29.2 g/dL (31.0-37.0); MCV 104.6 fL (80.0-100.0); Macrocytosis Moderate; Mean Platelet Volume 7.1; Platelet Count 180 k/uL (150-450); RDW 14.3 % (11.5-15.5); WBC 4.9 k/uL (3.8-10.6)
[2023-09-01 12:53] LABS: ALT 19 U/L (4-49); AST 26 U/L (17-59); African American GFR (CKD) 38 (>60 ml/min/1.73 sqM); Albumin 2.5 g/dL (3.5-5.0); Alkaline Phosphatase 82 U/L (38-126); Anion Gap 4 mmol/L; Blood Urea Nitrogen 27 mg/dL (9-20); Calcium 7.8 mg/dL (8.4-10.2); Carbon Dioxide 13 mmol/L (22-30); Chloride 120 mmol/L (98-107); Glucose 124 mg/dL (74-99); Non-African American GFR(CKD) 33 (>60 ml/min/1.73 sqM); Potassium 5.9 mmol/L (3.5-5.1); Sodium 137 mmol/L (137-145); Total Bilirubin 0.2 mg/dL (0.2-1.3)
--- NOTE | 2023-09-01 16:17 | P.PN ---
Subjective Progress Note Date: 08/31/23 Principal diagnosis: Reason for follow-up is recurrent urinary tract infection Patient is a 73-year-old male with a past medical history significant for hypertension hyperlipidemia atrial fibrillation rheumatoid arthritis kidney stone and recurrent UTI recent admission to the hospital with electrolyte abnormality and UTI urine cultures were negative, patient presented back to the hospital lower extremity swelling elevated potassium did have a positive UA probably this consultation. On today's evaluation that is 08/31/2023,the patient remains to be afebrile, patient is on room air not requiring supplemental oxygen and denies any shortness of breath no chest pain or cough.Patient denies having any nausea or vomiting, no abdominal pain and no diarrhea circumventing of burning urine No lab draw today, ultrasound negative for hydronephrosis nonobstructing bilate ral renal calculi thick-walled bladder containing debris Objective - Vital Signs Vital signs: Vital Signs Temp 97.7 F 08/31/23 10:30 Pulse 85 08/31/23 10:30 Resp 20 08/31/23 10:30 BP 155/66 08/31/23 10:30 Pulse Ox 98 08/31/23 10:30 FiO2 Intake & Output 08/30/23 08/31/23 08/31/23 18:59 06:59 18:59 Weight 63.503 kg Other: Voiding Method Toilet - Exam GENERAL DESCRIPTION: An elderly male lying in bed in no distress RESPIRATORY SYSTEM: Unlabored breathing , decreased breath sounds at bases HEART: S1 S2 regular rate and rhythm , ABDOMEN: Soft , no tenderness EXTREMITIES: No edema feet - Labs CBC & Chem 7: 09/01/23 12:20 09/01/23 12:20 Labs: Abnormal Lab Results - Last 24 Hours (Table) 08/30/23 08/30/23 08/30/23 Range/Units 11:44 11:53 11:53 RBC 3.10 L (4.30-5.90) m/uL Hgb 9.5 L D (13.0-17.5) gm/dL Hct 32.4 L (39.0-53.0) % MCV 104.3 H (80.0-100.0) fL MCHC 29.4 L (31.0-37.0) g/dL PT 9.8 L (10.0-12.5) sec Potassium (3.5-5.1) mmol/L Chloride (98-107) mmol/L Carbon Dioxide (22-30) mmol/L BUN (9-20) mg/dL Creatinine (0.66-1.25) mg/dL Glucose (74-99) mg/dL Phosphorus (2.5-4.5) mg/dL Albumin (3.5-5.0) g/dL Urine Protein 2+ H (Negative) Urine Blood Small H (Negative) Ur Leukocyte Esterase Large H (Negative) Urine RBC 54 H (0-5) /hpf Urine WBC >182 H (0-5) /hpf Urine WBC Clumps Many H (None) /hpf 08/30/23 Range/Units 11:53 RBC (4.30-5.90) m/uL Hgb (13.0-17.5) gm/dL Hct (39.0-53.0) % MCV (80.0-100.0) fL MCHC (31.0-37.0) g/dL PT (10.0-12.5) sec Potassium 5.9 H (3.5-5.1) mmol/L Chloride 120 H (98-107) mmol/L Carbon Dioxide 16 L (22-30) mmol/L BUN 34 H (9-20) mg/dL Creatinine 2.06 H (0.66-1.25) mg/dL Glucose 57 L (74-99) mg/dL Phosphorus 4.9 H (2.5-4.5) mg/dL Albumin 2.9 L (3.5-5.0) g/dL Urine Protein (Negative) Urine Blood (Negative) Ur Leukocyte Esterase (Negative) Urine RBC (0-5) /hpf Urine WBC (0-5) /hpf Urine WBC Clumps (None) /hpf Assessment and Plan (1) Urinary tract infection Current Visit: Yes Status: Acute Code(s): N39.0 - URINARY TRACT INFECTION, SITE NOT SPECIFIED SNOMED Code(s): 46759117 Plan: 1patient presented to hospital with weakness shortness of breath urinary symptoms of burning positive UA concerning for persistent/recurrent UTI and this patient did have a history of kidney stone could be related to the this episode of recurrent UTI patient did have elevated creatinine will need to rule out obs tructive uropathy 2-ultrasound of the kidney and bladder area, did not show any hydronephrosis nonobstructive stone and debris's in the bladder 3-patient to continue with Rocephin 2 g daily while waiting for the culture to finalize Dictation was produced using [employer] software. please excuse any grammatical, word or spelling errors. Time with Patient: Less than 30
--- NOTE | 2023-09-01 16:19 | P.PN ---
Subjective Progress Note Date: 09/01/23 Principal diagnosis: Reason for follow-up is recurrent urinary tract infection Patient is a 73-year-old male with a past medical history significant for hypertension hyperlipidemia atrial fibrillation rheumatoid arthritis kidney stone and recurrent UTI recent admission to the hospital with electrolyte abnormality and UTI urine cultures were negative, patient presented back to the hospital lower extremity swelling elevated potassium did have a positive UA probably this consultation. On today's evaluation that is 09/01/2023, the patient continues to be afebrile, the patient is on room air and breathing comfortably, the Pt denies having any chest pain or cough, the patient denies having any abdominal pain no vomiting or any diarrhea, still complaining of urinary symptoms but no hematuria burning at the tip, Patient white count is 4.9, creatinine is 1.95, blood culture with Streptococcus viridans urine culture negative Objective - Vital Signs Vital signs: Vital Signs Temp 97.9 F 09/01/23 08:00 Pulse 61 09/01/23 08:00 Resp 16 09/01/23 08:00 BP 159/65 09/01/23 08:00 Pulse Ox 98 09/01/23 08:00 FiO2 Intake & Output 08/31/23 09/01/23 09/01/23 18:59 06:59 18:59 Intake Total 236 575 Balance 236 575 Weight 63.503 kg Intake: Intake, IV Titration 375 Amount Sodium Chloride 0.9% 1, 375 000 ml @ 75 mls/hr IV . [id number] STA Rx#:[id number] Oral 236 200 Other: Voiding Method Toilet Toilet # Voids 4 7 # Bowel Movements 1 - Exam GENERAL DESCRIPTION: An elderly male lying in bed in no distress RESPIRATORY SYSTEM: Unlabored breathing , decreased breath sounds at bases HEART: S1 S2 regular rate and rhythm , ABDOMEN: Soft , no tenderness EXTREMITIES: No edema feet - Labs CBC & Chem 7: 09/01/23 12:20 09/01/23 12:20 Labs: Abnormal Lab Results - Last 24 Hours (Table) 09/01/23 09/01/23 Range/Units 09:43 12:20 RBC 3.00 L (4.30-5.90) m/uL Hgb 9.2 L (13.0-17.5) gm/dL Hct 31.4 L (39.0-53.0) % MCV 104.6 H (80.0-100.0) fL MCHC 29.2 L (31.0-37.0) g/dL Urine Protein 2+ H (Negative) Urine Blood Small H (Negative) Ur Leukocyte Esterase Large H (Negative) Urine RBC 37 H (0-5) /hpf Urine WBC >182 H (0-5) /hpf Urine WBC Clumps Many H (None) /hpf Urine Bacteria Occasional H (None) /hpf Urine Mucus Rare H (None) /hpf Microbiology - Last 24 Hours (Table) 08/30/23 14:40 Blood Culture Gram Stain - Preliminary Blood Blood Culture - Preliminary Streptococcus viridans group Molecular ID 08/30/23 14:30 Blood Culture - Preliminary Blood 08/30/23 13:47 Urine Culture - Final Urine,Clean Catch Assessment and Plan (1) Positive blood culture Current Visit: Yes Status: Acute Code(s): R78.81 - BACTEREMIA SNOMED Code(s): 701038109 (2) Urinary tract infection Current Visit: Yes Status: Acute Code(s): N39.0 - URINARY TRACT INFECTION, SITE NOT SPECIFIED SNOMED Code(s): 30215226 Plan: 1patient presented to hospital with weakness shortness of breath urinary symptoms of burning positive UA concerning for persistent/recurrent UTI and this patient did have a history of kidney stone could be related to the this episode of recurrent UTI patient did have elevated creatinine will need to rule out obstructive uropathy 2-ultrasound of the kidney and bladder area, did not show any hydronephrosis nonobstructive stone and debris's in the bladder 3-patient did have a positive blood culture with stable counts question of skin contamination versus pathogen blood pressure will be documented as of bacteremia 4-patient to continue with Rocephin will benefit from urology evaluation with abnormality seen on the ultrasound for possible cystoscopy Dictation was produced using [employer] dictation software. please excuse any grammatical, word or spelling errors. Time with Patient: Less than 30
[2023-09-02 10:20] LABS: HCT 26.2 % (39.6-50.0); HGB 7.7 g/dL (13.0-17.0); MCH 29.7 pg (27.0-32.0); MCHC 29.4 g/dL (32.0-37.0); MCV 101.2 FL (80.0-97.0); Mean Platelet Volume 10.9 FL (9.5-12.2); NRBC Per 100 WBC 0 X 10*3/uL (0.00-0.01); Platelet Count 164 X 10*3/uL (140-440); RBC 2.59 X 10*6/uL (4.40-5.60); RDW 14.5 % (11.5-14.5); WBC 4.33 X 10*3/uL (4.50-10.00)
[2023-09-02 10:48] LABS: ALT 16 U/L (10-49); AST 21 U/L (14-35); Albumin 2.7 g/dL (3.8-4.9); Albumin/Globulin Ratio 1.04 Ratio (1.60-3.17); Alkaline Phosphatase 76 U/L (41-126); Blood Urea Nitrogen 31.2 mg/dL (9.0-27.0); Calcium 7.8 mg/dL (8.7-10.3); Carbon Dioxide 14.3 mmol/L (21.6-31.8); Chloride 116 mmol/L (96-109); Globulin 2.6 g/dL (1.6-3.3); Glucose 87 mg/dL (70-110); Potassium 5.7 mmol/L (3.5-5.5); Sodium 137 mmol/L (135-145); Total Bilirubin <0.2 mg/dL (0.3-1.2); Total Protein 5.3 g/dL (6.2-8.2)
[2023-09-02] MEDS: SODIUM ZIRCONIUM CYCLOSILICATE 10 GM PACKET PO ONE (10:54)
[2023-09-02] MEDS: HEPARIN SODIUM,PORCINE 5,000 UNIT/ML 1 ML VIAL SQ SCH (10:54)
--- NOTE | 2023-09-02 16:39 | P.PN ---
Subjective Progress Note Date: 09/02/23 Principal diagnosis: Reason for follow-up is recurrent urinary tract infection Patient is a 73-year-old male with a past medical history significant for hypertension hyperlipidemia atrial fibrillation rheumatoid arthritis kidney stone and recurrent UTI recent admission to the hospital with electrolyte abnormality and UTI urine cultures were negative, patient presented back to the hospital lower extremity swelling elevated potassium did have a positive UA probably this consultation. On today's evaluation that is 09/02/2023, Patient is afebrile patient is currently on room air and denies having any shortness of breath, the patient denies any chest pain or cough, the patient denies any nausea vomiting did not have any abdominal pain and no diarrhea, the patient complaining of burning and cloudy urine. Patient white count is 4.33, creatinine is 2.4 blood culture with Streptococcus viridans Objective - Vital Signs Vital signs: Vital Signs Temp 98.0 F 09/02/23 07:55 Pulse 54 L 09/02/23 07:55 Resp 17 09/02/23 07:55 BP 165/63 09/02/23 07:55 Pulse Ox 98 09/02/23 07:55 FiO2 Intake & Output 09/01/23 09/02/23 09/02/23 18:59 06:59 18:59 Intake Total 118 Balance 118 Intake: Oral 118 Other: Voiding Method Toilet # Voids 1 1 - Exam GENERAL DESCRIPTION: An elderly male lying in bed in no distress RESPIRATORY SYSTEM: Unlabored breathing , decreased breath sounds at bases HEART: S1 S2 regular rate and rhythm , ABDOMEN: Soft , no tenderness EXTREMITIES: No edema feet - Labs CBC & Chem 7: 09/02/23 06:29 09/02/23 06:29 Labs: Abnormal Lab Results - Last 24 Hours (Table) 09/01/23 09/01/23 09/01/23 Range/Units 09:43 12:20 12:20 WBC (4.50-10.00) X 10*3/uL RBC 3.00 L (4.30-5.90) m/uL Hgb 9.2 L (13.0-17.5) gm/dL Hct 31.4 L (39.0-53.0) % MCV 104.6 H (80.0-100.0) fL MCHC 29.2 L (31.0-37.0) g/dL Potassium 5.9 H (3.5-5.1) mmol/L Chloride 120 H (98-107) mmol/L Carbon Dioxide 13 L (22-30) mmol/L BUN 27 H (9-20) mg/dL Creatinine 1.95 H (0.66-1.25) mg/dL Est GFR (CKD-EPI) (>=60) Glucose 124 H (74-99) mg/dL Calcium 7.8 L (8.4-10.2) mg/dL Total Bilirubin (0.3-1.2) mg/dL Total Protein 6.0 L (6.3-8.2) g/dL Albumin 2.5 L (3.5-5.0) g/dL Albumin/Globulin Ratio (1.60-3.17) Ratio Urine Protein 2+ H (Negative) Urine Blood Small H (Negative) Ur Leukocyte Esterase Large H (Negative) Urine RBC 37 H (0-5) /hpf Urine WBC >182 H (0-5) /hpf Urine WBC Clumps Many H (None) /hpf Urine Bacteria Occasional H (None) /hpf Urine Mucus Rare H (None) /hpf 09/02/23 09/02/23 Range/Units 06:29 06:29 WBC 4.33 L (4.50-10.00) X 10*3/uL RBC 2.59 L (4.30-5.90) m/uL Hgb 7.7 L (13.0-17.5) gm/dL Hct 26.2 L (39.0-53.0) % MCV 101.2 H (80.0-100.0) fL MCHC 29.4 L (31.0-37.0) g/dL Potassium 5.7 H (3.5-5.1) mmol/L Chloride 116 H (98-107) mmol/L Carbon Dioxide 14.3 L (22-30) mmol/L BUN 31.2 H (9-20) mg/dL Creatinine 2.4 H (0.66-1.25) mg/dL Est GFR (CKD-EPI) 28 L (>=60) Glucose (74-99) mg/dL Calcium 7.8 L (8.4-10.2) mg/dL Total Bilirubin <0.2 L (0.3-1.2) mg/dL Total Protein 5.3 L (6.3-8.2) g/dL Albumin 2.7 L (3.5-5.0) g/dL Albumin/Globulin Ratio 1.04 L (1.60-3.17) Ratio Urine Protein (Negative) Urine Blood (Negative) Ur Leukocyte Esterase (Negative) Urine RBC (0-5) /hpf Urine WBC (0-5) /hpf Urine WBC Clumps (None) /hpf Urine Bacteria (None) /hpf Urine Mucus (None) /hpf Microbiology - Last 24 Hours (Table) 08/30/23 14:40 Blood Culture Gram Stain - Preliminary Blood Blood Culture - Preliminary Streptococcus viridans group Molecular ID 08/30/23 14:30 Blood Culture Gram Stain - Preliminary Blood Blood Culture - Preliminary Assessment and Plan (1) Positive blood culture Current Visit: Yes Status: Acute Code(s): R78.81 - BACTEREMIA SNOMED Code(s): 086857150 (2) Urinary tract infection Current Visit: Yes Status: Acute Code(s): N39.0 - URINARY TRACT INFECTION, SITE NOT SPECIFIED SNOMED Code(s): 26794408 Plan: 1patient presented to hospital with weakness shortness of breath urinary symptoms of burning positive UA concerning for persistent/recurrent UTI and this patient did have a history of kidney stone could be related to the this episode of recurrent UTI patient did have elevated creatinine will need to rule out obstructive uropathy 2-ultrasound of the kidney and bladder area, did not show any hydronephrosis nonobstructive stone and debris's in the bladder 3-patient did have a positive blood culture with stable counts question of skin contamination versus pathogen blood culture has been repeated 4-patient to continue with Rocephin, giving mild persistent symptoms of cloudy urine with burning negative urine culture will benefit from urology evaluation with abnormality seen on the ultrasound for possible cystoscopy, discussed with admitting team Dictation was produced using [employer] dictation software. please excuse any grammatical, word or spelling errors. Time with Patient: Less than 30
--- NOTE | 2023-09-03 09:51 | P.PN ---
Subjective Progress Note Date: 09/02/23 This is a 73-year-old male who was sent to the ER for evaluation after abnormal labs in our office, patient had hyperkalemia and worsening kidney function. Patient recently admitted for difficulties with chronic UTIs, however culture at that time was normal. Patient still having complaints of dysuria and frequency. Blood culture completed and was positive, he remains on Rocephin. Infectious disease is on board. No growth to urine culture yet. Vitals are stable, no fever. Patient is tolerating diet. 09/02/2023 Patient is seen and evaluated today in follow-up on the medical floor. His wound culture has come back negative at this time. His blood culture shows Streptococcus radians. ID is following closely and patient remains on IV ceftriaxone. Patient had worsening creatinine up to 2.4 for this reason urology was consulted as his renal ultrasound shows no hydronephrosis with nonobstruc tive bilateral renal calculi there is a 2.7 cm midpole renal cyst on the right and a thick walled bladder containing debris. Review of Systems Constitutional: Denied any fatigue denied any fever. Cardio vascular: denied any chest pain, palpitations Gastrointestinal: denied any nausea, vomiting, diarrhea Pulmonary: Denied any shortness of breath cough Neurologic denied any new focal deficits All inpatient medications were reviewed and appropriate changes in these medications as dictated in the interval history and assessment and plan. PHYSICAL EXAMINATION: GENERAL: The patient is alert and oriented x3, not in any acute distress. Well developed, well nourished. HEENT: Pupils are round and equally reacting to light. EOMI. No scleral icterus. No conjunctival pallor. Normocephalic, atraumatic. No pharyngeal erythema. No thyromegaly. CARDIOVASCULAR: S1 and S2 present. No murmurs, rubs, or gallops. PULMONARY: Chest is clear to auscultation, no wheezing or crackles. ABDOMEN: Soft, nontender, nondistended, normoactive bowel sounds. No palpable organomegaly. MUSCULOSKELETAL: No joint swelling or deformity. EXTREMITIES: No cyanosis, clubbing, or pedal edema. NEUROLOGICAL: Gross neurological examination did not reveal any focal deficits. SKIN: No rashes. Mild bilateral lower extremity erythema Assessment and plan Hyperkalemia secondary to acute kidney injury given a dose of Lokelma and will repeat blood work in the morning Acute kidney injury due to acute tubular necrosis from infection, nephrology will be consulted for evaluation and repeat labs in the morning Acute urinary tract infection with sepsis although urine culture is normal at this time and renal ultrasound reveals no obstructive uropathy Streptococcus bacteremia source of infection possibly Streptococcus cellulitis as patient has evidence of bilateral lower extremity erythema although mild. Patient does report significant tenderness to the calf area where it is red. Paroxysmal atrial fibrillation is not anticoagulated on an outpatient basis History of chronic Crohn's colitis History of gastroesophageal reflux disease History of hypertension continues on amlodipine daily History of gout History of rheumatoid arthritis Chronic anemia History of polysubstance abuse with opiate dependency patient continues on Suboxone at this time History of alcoholism Gi Prophylaxis DVT prophylaxis Full code The impression and plan of care has been dictated by Sonal Sun, Nurse Practitioner as directed. Dr. Natacha MD I have performed a history and physical examination and medical decision making of this patient, discussed the same with the dictator, and agree with the dictators assessment and plan as written, documented as a scribe. Based on total visit time, I have performed more than 50% of this visit. Objective - Vital Signs Vital signs: Vital Signs Temp 98.0 F 09/02/23 07:55 Pulse 54 L 09/02/23 07:55 Resp 17 09/02/23 07:55 BP 165/63 09/02/23 07:55 Pulse Ox 98 09/02/23 07:55 FiO2 Intake & Output 09/01/23 09/02/23 09/02/23 18:59 06:59 18:59 Intake Total 118 Output Total 174 Balance -56 Weight 63.503 kg Intake: Oral 118 Output: Post Void Residual 174 Other: Voiding Method Toilet # Voids 1 1 - Labs CBC & Chem 7: 09/02/23 06:29 09/02/23 06:29 Labs: Abnormal Lab Results - Last 24 Hours (Table) 09/02/23 09/02/23 Range/Units 06:29 06:29 WBC 4.33 L (4.50-10.00) X 10*3/uL RBC 2.59 L (4.40-5.60) X 10*6/uL Hgb 7.7 L (13.0-17.0) g/dL Hct 26.2 L (39.6-50.0) % MCV 101.2 H (80.0-97.0) FL MCHC 29.4 L (32.0-37.0) g/dL Potassium 5.7 H (3.5-5.5) mmol/L Chloride 116 H (96-109) mmol/L Carbon Dioxide 14.3 L (21.6-31.8) mmol/L BUN 31.2 H (9.0-27.0) mg/dL Creatinine 2.4 H (0.6-1.5) mg/dL Est GFR (CKD-EPI) 28 L (>=60) Calcium 7.8 L (8.7-10.3) mg/dL Total Bilirubin <0.2 L (0.3-1.2) mg/dL Total Protein 5.3 L (6.2-8.2) g/dL Albumin 2.7 L (3.8-4.9) g/dL Albumin/Globulin Ratio 1.04 L (1.60-3.17) Ratio Microbiology - Last 24 Hours (Table) 08/30/23 14:40 Blood Culture Gram Stain - Preliminary Blood Blood Culture - Preliminary Streptococcus viridans group Molecular ID 08/30/23 14:30 Blood Culture Gram Stain - Preliminary Blood Blood Culture - Preliminary Assessment and Plan Time with Patient: Less than 30
[2023-09-03 10:35] LABS: African American GFR (CKD) 36 (>60 ml/min/1.73 sqM); Anion Gap 6 mmol/L; Blood Urea Nitrogen 28 mg/dL (9-20); Calcium 8.2 mg/dL (8.4-10.2); Carbon Dioxide 12 mmol/L (22-30); Chloride 122 mmol/L (98-107); Glucose 90 mg/dL (74-99); Non-African American GFR(CKD) 31 (>60 ml/min/1.73 sqM); Sodium 140 mmol/L (137-145)
--- NOTE | 2023-09-03 15:31 | P.PN ---
Subjective Progress Note Date: 09/03/23 This is a 73-year-old male who was sent to the ER for evaluation after abnormal labs in our office, patient had hyperkalemia and worsening kidney function. Patient recently admitted for difficulties with chronic UTIs, however culture at that time was normal. Patient still having complaints of dysuria and frequency. Blood culture completed and was positive, he remains on Rocephin. Infectious disease is on board. No growth to urine culture yet. Vitals are stable, no fever. Patient is tolerating diet. 09/02/2023 Patient is seen and evaluated today in follow-up on the medical floor. His wound culture has come back negative at this time. His blood culture shows Streptococcus radians. ID is following closely and patient remains on IV ceftriaxone. Patient had worsening creatinine up to 2.4 for this reason urology was consulted as his renal ultrasound shows no hydronephrosis with nonobstruc tive bilateral renal calculi there is a 2.7 cm midpole renal cyst on the right and a thick walled bladder containing debris. 09/03/2023 Patient evaluated today in follow-up medical floor. Continues on IV antibiotics for Streptococcus bacteremia. Nephrology was consulted for the worsening renal function. He is gently hydrated his creatinine today is 2.06, BUN of 28. Potassium down to 5.0. Patient is not retaining urine. Review of Systems Constitutional: Denied any fatigue denied any fever. Cardio vascular: denied any chest pain, palpitations Gastrointestinal: denied any nausea, vomiting, diarrhea Pulmonary: Denied any shortness of breath cough Neurologic denied any new focal deficits All inpatient medications were reviewed and appropriate changes in these medications as dictated in the interval history and assessment and plan. PHYSICAL EXAMINATION: GENERAL: The patient is alert and oriented x3, not in any acute distress. Well developed, well nourished. HEENT: Pupils are round and equally reacting to light. EOMI. No scleral icterus. No conjunctival pallor. Normocephalic, atraumatic. No pharyngeal erythema. No thyromegaly. CARDIOVASCULAR: S1 and S2 present. No murmurs, rubs, or gallops. PULMONARY: Chest is clear to auscultation, no wheezing or crackles. ABDOMEN: Soft, nontender, nondistended, normoactive bowel sounds. No palpable organomegaly. MUSCULOSKELETAL: No joint swelling or deformity. EXTREMITIES: No cyanosis, clubbing, or pedal edema. NEUROLOGICAL: Gross neurological examination did not reveal any focal deficits. SKIN: No rashes. Mild bilateral lower extremity erythema Assessment and plan Hyperkalemia secondary to acute kidney injury given a dose of Lokelma and will repeat blood work in the morning Acute kidney injury due to acute tubular necrosis from infection, nephrology will be consulted for evaluation and repeat labs in the morning Acute urinary tract infection with sepsis although urine culture is normal at this time and renal ultrasound reveals no obstructive uropathy Streptococcus bacteremia source of infection possibly Streptococcus cellulitis as patient has evidence of bilateral lower extremity erythema although mild. Patient does report significant tenderness to the calf area where it is red. Paroxysmal atrial fibrillation is not anticoagulated on an outpatient basis History of chronic Crohn's colitis History of gastroesophageal reflux disease History of hypertension continues on amlodipine daily History of gout History of rheumatoid arthritis Chronic anemia History of polysubstance abuse with opiate dependency patient continues on Suboxone at this time History of alcoholism Gi Prophylaxis DVT prophylaxis Full code Continues on IV antibiotics. ID following closely. Pending consultation by nephrology and urology. The impression and plan of care has been dictated by Sonal Sun, Nurse Practitioner as directed. Dr. Natacha MD I have performed a history and physical examination and medical decision making of this patient, discussed the same with the dictator, and agree with the dictators assessment and plan as written, documented as a scribe. Based on total visit time, I have performed more than 50% of this visit. Objective - Vital Signs Vital signs: Vital Signs Temp 98.0 F 09/03/23 07:35 Pulse 57 L 09/03/23 07:35 Resp 16 09/03/23 07:35 BP 132/64 09/03/23 07:35 Pulse Ox 97 09/03/23 07:35 FiO2 Intake & Output 09/02/23 09/03/23 09/03/23 18:59 06:59 18:59 Intake Total 1276 Output Total 1299 400 Balance -23 400 Weight 63.503 kg Intake: Intake, IV Titration 450 Amount Sodium Chloride 0.45% 1, 400 000 ml @ 50 mls/hr IV . Q20H [facility] Rx#:[id number] cefTRIAXone 2 gm In 50 Sodium Chloride 0.9% 50 ml @ 100 mls/hr IVPB Q24HR [facility] Rx#:[id number] Oral 826 Output: Urine 1125 400 Post Void Residual 174 Other: Voiding Method Toilet # Voids 2 # Bowel Movements 2 - Labs CBC & Chem 7: 09/02/23 06:29 09/03/23 10:00 Labs: Abnormal Lab Results - Last 24 Hours (Table) 09/02/23 09/02/23 Range/Units 06:29 06:29 WBC 4.33 L (4.50-10.00) X 10*3/uL RBC 2.59 L (4.40-5.60) X 10*6/uL Hgb 7.7 L (13.0-17.0) g/dL Hct 26.2 L (39.6-50.0) % MCV 101.2 H (80.0-97.0) FL MCHC 29.4 L (32.0-37.0) g/dL Potassium 5.7 H (3.5-5.5) mmol/L Chloride 116 H (96-109) mmol/L Carbon Dioxide 14.3 L (21.6-31.8) mmol/L BUN 31.2 H (9.0-27.0) mg/dL Creatinine 2.4 H (0.6-1.5) mg/dL Est GFR (CKD-EPI) 28 L (>=60) Calcium 7.8 L (8.7-10.3) mg/dL Total Bilirubin <0.2 L (0.3-1.2) mg/dL Total Protein 5.3 L (6.2-8.2) g/dL Albumin 2.7 L (3.8-4.9) g/dL Albumin/Globulin Ratio 1.04 L (1.60-3.17) Ratio Microbiology - Last 24 Hours (Table) 09/01/23 14:16 Blood Culture - Preliminary Blood 08/30/23 14:30 Blood Culture Gram Stain - Preliminary Blood Blood Culture - Preliminary Assessment and Plan Time with Patient: Less than 30
[2023-09-04 09:51] LABS: Blood Urea Nitrogen 27.6 mg/dL (9.0-27.0); Glucose 96 mg/dL (70-110)
[2023-09-04 09:52] LABS: ALT 22 U/L (10-49); AST 26 U/L (14-35); Albumin 2.8 g/dL (3.8-4.9); Alkaline Phosphatase 92 U/L (41-126); Calcium 8.5 mg/dL (8.7-10.3); Carbon Dioxide 15.4 mmol/L (21.6-31.8); Chloride 115 mmol/L (96-109); Globulin 2.8 g/dL (1.6-3.3); Magnesium 1.5 mg/dL (1.5-2.4); Potassium 5.9 mmol/L (3.5-5.5); Sodium 139 mmol/L (135-145); Total Bilirubin <0.2 mg/dL (0.3-1.2); Total Protein 5.6 g/dL (6.2-8.2)
[2023-09-04] MEDS: DEXTROSE 5% IN WATER 1,000 ML with SODIUM BICARB (1 MEQ/ML) 150 ML IV SCH (10:00)
--- NOTE | 2023-09-04 10:04 | P.GSCN ---
History of Present Illness Consult date: 09/04/23 Reason for Consult: Bladder wall thickening, renal stones and dysuria History of present illness: This is a 73-year-old male admitted to the hospital with acute kidney injury, hyperkalemia and persistent dysuria. Urology is consulted for finding of bilateral nonobstructing renal stones, bladder wall thickening and his dysuria. He is a known patient to Dr. Locke with history of recurrent kidney stones, and known history of Crohn's disease. Has underwent multiple ureteroscopy's with holmium laser to address his kidney stones, also had a recent septic stone in May of this year. Did have a cystoscopy done at time of his ureteroscopy in May 2023 that did not show any bladder pathology presented to the hospital with dysuria, and hyperkalemia. Urinalysis was concerning for UTI, urine culture was subsequently obtained, which showed no growth. underwent a CT abdomen and pelvis earlier this month that showed no evidence of ureteral stones, it did show evidence of bilateral nonobstructing stone and thickened bladder wall. Repeat ultrasound on this admission showed no hydronephrosis. Review of Systems - Constitutional Denies fever, Denies weight loss - EENT Ears, nose, mouth and throat: Denies dysphagia - Cardiovascular Denies chest pain, Denies shortness of breath - Respiratory Denies cough, Denies 7 - Gastrointestinal Reports as per HPI - Genitourinary Reports dysuria, Denies flank pain, Denies hematuria - Neurological Denies headaches, Denies syncope Past Medical History Past Medical History: Atrial Fibrillation, Blood Disorder, Eye Disorder, G ERD/Reflux, GI Bleed, Hearing Disorder / Deafness, Hyperlipidemia, Hypertension, Musculoskeletal Disorder, Pneumonia, Rheumatoid Arthritis (RA), Skin Disorder, Supraventricular Tachycardia (SVT) Additional Past Medical History / Comment(s): hx CROHN'S (takes tresa), IBS, ch ronic diarrhea, migraines-, hx ulcers, anemia, gout, kidney stones, psoriasis, bilateral tinnitis., pinched sciatic nerve, C-Diff 2017, neuropathy, COMPLICATED UTI PYELONEPHRITIS, HEART RATE NORMALLY 50'S History of Any Multi-Drug Resistant Organisms: C-DIFF, MRSA Year Discovered:: stool MDRO Source:: 2017 Past Surgical History: Ablation, Bowel Resection, Cardiac Ablation, Cholecystectomy, Heart Catheterization, Hernia Repair, Joint Replacement, Orthopedic Surgery, Tonsillectomy Additional Past Surgical History / Comment(s): 1/3 of stomach removed (partial gastrectomy), ulcers, bowel resections, fecal transplant 2017, bilateral knee arthroscopic surgery, EGD/colonoscopies, R inguinal hernia repair, bilat cataract removal, TOTAL LEFT KNEE. MULTIPLE CYSTOS, PICC 05/11 Past Anesthesia/Blood Transfusion Reactions: Blood Transfusion Reaction, Motion Sickness Additional Past Anesthesia/Blood Transfusion Reaction / Comm: BLOOD TRANSFUSION- BROKE OUT IN [facility]ES age 21 Past Psychological History: Anxiety Additional Psychological History / Comment(s): denies Smoking Status: Never smoker Past Alcohol Use History: None Reported, Occasional Additional Past Alcohol Use History / Comment(s): FORMER every other day 2-3 beers per patient. 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 - Past Family History Mother Family Medical History: No Reported History, Pulmonary Embolus Additional Family Medical History / Comment(s): AGE 73-ND, STROKE DURING CARATID PROCEDURE Medications and Allergies Home Medications Medication Instructions Recorded Confirmed Type amLODIPine [Norvasc] 10 mg PO DAILY 10/18/20 08/31/23 History Adalimumab [Humira(Cf) Pen] 40 mg SQ Q14D 08/16/22 08/30/23 History Buprenorphine HCl/Naloxone HCl 1 film SL BID 08/16/22 08/30/23 History [Suboxone 2 mg-0.5 mg Sl Film] Omeprazole [PriLOSEC] 20 mg PO BID 05/19/23 08/30/23 History Tamsulosin [Flomax] 0.4 mg PO BID 07/29/23 08/30/23 History Sodium Bicarbonate Tab 650 mg PO BID #60 tablet 08/02/23 08/30/23 Rx cefUROXime axetiL [Ceftin] 500 mg PO BID #30 tab 08/25/23 08/30/23 Rx hydrALAZINE HCL [Apresoline] 50 mg PO QID 30 Days #120 tab 08/25/23 08/30/23 Rx Allergies Allergy/AdvReac Type Severity Reaction Status Date / Time Iodinated Contrast Media Allergy Anaphylaxis Verified 08/30/23 12:16 [Iodinated Contrast Media - IV Dye] Surgical - Exam Vital Signs Temp Pulse Resp BP Pulse Ox 97.6 F 63 16 183/87 100 08/30/23 10:48 08/30/23 10:48 08/30/23 10:48 08/30/23 10:48 08/30/23 10:48 - General no distress, no pain - Eyes normal ocular movement, no pale - ENT normal nares, normal mucosa - Respiratory normal expansion, normal respiratory effort - Abdomen Abdomen: soft, non tender - Psychiatric oriented to time, oriented to person, oriented to place Results - Labs 09/02/23 06:29 09/04/23 04:19 Abnormal Lab Results - Last 24 Hours (Table) 09/03/23 09/04/23 Range/Units 10:00 04:19 Potassium 5.9 H (3.5-5.5) mmol/L Chloride 122 H 115 H (98-107) mmol/L Carbon Dioxide 12 L 15.4 L (22-30) mmol/L BUN 28 H 27.6 H (9-20) mg/dL Creatinine 2.06 H 2.3 H (0.66-1.25) mg/dL Est GFR (CKD-EPI) 29 L (>=60) Calcium 8.2 L 8.5 L (8.4-10.2) mg/dL Total Bilirubin <0.2 L (0.3-1.2) mg/dL Total Protein 5.6 L (6.2-8.2) g/dL Albumin 2.8 L (3.8-4.9) g/dL Albumin/Globulin Ratio 1.00 L (1.60-3.17) Ratio Microbiology - Last 24 Hours (Table) 09/01/23 14:16 Blood Culture - Preliminary Blood 08/30/23 14:40 Blood Culture Gram Stain - Final Blood Blood Culture - Final Streptococcus viridans group Corynebacterium species Molecular ID Diabetes panel 09/03/23 09/04/23 Range/Units 10:00 04:19 Sodium 140 139 (137-145) mmol/L Potassium 5.0 5.9 H (3.5-5.1) mmol/L Chloride 122 H 115 H (98-107) mmol/L Carbon Dioxide 12 L 15.4 L (22-30) mmol/L BUN 28 H 27.6 H (9-20) mg/dL Creatinine 2.06 H 2.3 H (0.66-1.25) mg/dL Glucose 90 96 (74-99) mg/dL Calcium 8.2 L 8.5 L (8.4-10.2) mg/dL AST 26 (14-35) U/L ALT 22 (10-49) U/L Alkaline Phosphatase 92 (41-126) U/L Total Protein 5.6 L (6.2-8.2) g/dL Albumin 2.8 L (3.8-4.9) g/dL Calcium panel 09/03/23 09/04/23 Range/Units 10:00 04:19 Calcium 8.2 L 8.5 L (8.4-10.2) mg/dL Albumin 2.8 L (3.8-4.9) g/dL Pituitary panel 09/03/23 09/04/23 Range/Units 10:00 04:19 Sodium 140 139 (137-145) mmol/L Potassium 5.0 5.9 H (3.5-5.1) mmol/L Chloride 122 H 115 H (98-107) mmol/L Carbon Dioxide 12 L 15.4 L (22-30) mmol/L BUN 28 H 27.6 H (9-20) mg/dL Creatinine 2.06 H 2.3 H (0.66-1.25) mg/dL Glucose 90 96 (74-99) mg/dL Calcium 8.2 L 8.5 L (8.4-10.2) mg/dL Adrenal panel 09/03/23 09/04/23 Range/Units 10:00 04:19 Sodium 140 139 (137-145) mmol/L Potassium 5.0 5.9 H (3.5-5.1) mmol/L Chloride 122 H 115 H (98-107) mmol/L Carbon Dioxide 12 L 15.4 L (22-30) mmol/L BUN 28 H 27.6 H (9-20) mg/dL Creatinine 2.06 H 2.3 H (0.66-1.25) mg/dL Glucose 90 96 (74-99) mg/dL Calcium 8.2 L 8.5 L (8.4-10.2) mg/dL Total Bilirubin <0.2 L (0.3-1.2) mg/dL AST 26 (14-35) U/L ALT 22 (10-49) U/L Alkaline Phosphatase 92 (41-126) U/L Total Protein 5.6 L (6.2-8.2) g/dL Albumin 2.8 L (3.8-4.9) g/dL Assessment and Plan Assessment: 73-year-old male with a history of recurrent kidney stones, secondary to Crohn's disease. Admitted to the hospital with UTI and hyperkalemai urinalysis concerning for UTI and he is symptomatic, but urine culture showed no growth. Urology is consulted for bilateral renal stones, and bladder wall thickening I reviewed his CT his stones his last admission are nonobstructive, and he is asymptomatic from at this time. His ultrasound on this admission showed no hydronephrosis, it did show similar finding of the bladder wall thickening. He had a negative cystoscopy approximately 3 months ago, no need to repeat cystoscopy at this time. If dysuria persists can consider outpatient cystoscopy given his history of Crohn's to rule out a fistulous track. As for his renal stones given that they are nonobstructive and he is asymptomatic from them at this point no intervention is needed. He can follow-up as an outpatient with Dr. Locke for metabolic workup for his kidney stones
--- NOTE | 2023-09-04 12:30 | P.NPCON ---
History of Present Illness - Reason for Consult acute renal failure - History of Present Illness patient is a 73-year-old male with history of Crohn's disease status post bowel resection many years ago. Patient also has underlying history of nephrolithiasis, status post urology goal surgery previously. Patient is admitted this time with complaints of painful urination and having noticed blood in the urine. ultrasound showed bilateral nonobstructive calculi about 5 mm. UA shows significant pyuria with 2+ protein and small blood. WBCs more than 182.urine culture did not grow any specific bacteria. serum creatinine 2.0 on admission and staying at about 2.3 now.previous creatinine 1.7-1.8 in early August off 2023. Serum creatinine as low as 1.4 on 08/02/2023. Patient has not seen nephrology previously. blood pressure is not low. No history of use of NSAIDs. Review of Systems as per HPI Past Medical History Past Medical History: Atrial Fibrillation, Blood Disorder, Eye Disorder, GERD/Reflux, GI Bleed, Hearing Disorder / Deafness, Hyperlipidemia, Hypertension, Musculoskeletal Disorder, Pneumonia, Rheumatoid Arthritis (RA), S kin Disorder, Supraventricular Tachycardia (SVT) Additional Past Medical History / Comment(s): hx CROHN'S (takes tresa), IBS, chronic diarrhea, migraines-, hx ulcers, anemia, gout, kidney stones, psoriasis, bilateral tinnitis., pinched sciatic nerve, C-Diff 2017, neuropathy, COMPLICATED UTI PYELONEPHRITIS, HEART RATE NORMALLY 50'S History of Any Multi-Drug Resistant Organisms: C-DIFF, MRSA Date of last positivie culture/infection: stool MDRO Source:: 2017 Past Surgical History: Ablation, Bowel Resection, Cardiac Ablation, Cholecystectomy, Heart Catheterization, Hernia Repair, Joint Replacement, Orthopedic Surgery, Tonsillectomy Additional Past Surgical History / Comment(s): 1/3 of stomach removed (partial gastrectomy), ulcers, bowel resections, fecal transplant 2017, bilateral knee arthroscopic surgery, EGD/colonoscopies, R inguinal hernia repair, bilat cataract removal, TOTAL LEFT KNEE. MULTIPLE CYSTOS, PICC 05/11 Past Anesthesia/Blood Transfusion Reactions: Blood Transfusion Reaction, Motion Sickness Additional Past Anesthesia/Blood Transfusion Reaction / Comment(s): BLOOD TRANSF USION- BROKE OUT IN HIVES age 21 Past Psychological History: Anxiety Additional Psychological History / Comment(s): denies Smoking Status: Never smoker Past Alcohol Use History: None Reported, Occasional Additional Past Alcohol Use History / Comment(s): FORMER every other day 2-3 beers per patient. 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 - Past Family History Mother Family Medical History: No Reported History, Pulmonary Embolus Additional Family Medical History / Comment(s): AGE 73-OR, STROKE DURING CARATID PROCEDURE Medications and Allergies Home Medications Medication Instructions Recorded Confirmed Type amLODIPine [Norvasc] 10 mg PO DAILY 10/18/20 08/31/23 History Adalimumab [Humira(Cf) Pen] 40 mg SQ Q14D 08/16/22 08/30/23 History Buprenorphine HCl/Naloxone HCl 1 film SL BID 08/16/22 08/30/23 History [Suboxone 2 mg-0.5 mg Sl Film] Omeprazole [PriLOSEC] 20 mg PO BID 05/19/23 08/30/23 History Tamsulosin [Flomax] 0.4 mg PO BID 07/29/23 08/30/23 History Sodium Bicarbonate Tab 650 mg PO BID #60 tablet 08/02/23 08/30/23 Rx cefUROXime axetiL [Ceftin] 500 mg PO BID #30 tab 08/25/23 08/30/23 Rx hydrALAZINE HCL [Apresoline] 50 mg PO QID 30 Days #120 tab 08/25/23 08/30/23 Rx Allergies Allergy/AdvReac Type Severity Reaction Status Date / Time Iodinated Contrast Media Allergy Anaphylaxis Verified 08/30/23 12:16 [Iodinated Contrast Media - IV Dye] Physical Exam Vitals: Vital Signs Temp Pulse Resp BP Pulse Ox 09/04/23 07:35 98.0 F 61 16 163/68 97 09/04/23 01:33 97.9 F 59 L 18 129/68 98 09/03/23 19:56 98.3 F 58 L 16 145/73 98 09/03/23 16:10 98.0 F 60 17 168/68 98 Intake and Output 09/03/23 09/04/23 09/04/23 22:59 06:59 14:59 Intake Total 826 Balance 826 Intake: Oral 826 Other: Voiding Method Toilet Toilet # Voids 2 # Bowel Movements 2 patient is awake, comfortable, no acute distress Examination of the heart S1 and S2 Examination the lungs bilateral breath sounds are heard Abdomen is soft nontender Examination lower extremity shows no significant edema , chronic skin changes noted OIL BURNER exam grossly intact Results - Lab Results Most recent lab results Calcium 8.5 mg/dL (8.7-10.3) L 09/04/23 04:19 Phosphorus 4.9 mg/dL (2.5-4.5) H 08/30/23 11:53 Magnesium 1.5 mg/dL (1.5-2.4) 09/04/23 04:19 09/02/23 06:29 09/04/23 04:19 Assessment and Plan Assessment: 1.Acute kidney injury, ATN, nonoliguric from underlying infection, bacteremia. UA shows significant pyuria with 2+ protein and small blood. No evidence of obs truction noted on ultrasound. 2. Bilateral nonobstructive kidney stones being followed by urology. likely calcium oxalate stones given underlying history of Crohn's disease. 3. non-gap metabolic acidosis secondary to acute kidney injury 4. Hyperkalemia associated with acute kidney injury and metabolic acidosis 5. Streptococcus bacteremia most likely related to cellulitis lower extremities. Plan: switch IV fluids to bicarbonate drip Repeat labs in a.m. continue oral sodium bicarb Avoid hypotension Continue to avoid nephrotoxic agents. Patient will need outpatient follow-up Thank you for the consultation. We will continue to follow the patient with you during his hospitalization.
--- NOTE | 2023-09-04 14:16 | P.PN ---
Subjective Progress Note Date: 09/04/23 This is a 73-year-old male who was sent to the ER for evaluation after abnormal labs in our office, patient had hyperkalemia and worsening kidney function. Patient recently admitted for difficulties with chronic UTIs, however culture at that time was normal. Patient still having complaints of dysuria and frequency. Blood culture completed and was positive, he remains on Rocephin. Infectious disease is on board. No growth to urine culture yet. Vitals are stable, no fever. Patient is tolerating diet. 09/02/2023 Patient is seen and evaluated today in follow-up on the medical floor. His wound culture has come back negative at this time. His blood culture shows Streptococcus radians. ID is following closely and patient remains on IV ceftriaxone. Patient had worsening creatinine up to 2.4 for this reason urology was consulted as his renal ultrasound shows no hydronephrosis with nonobstruc tive bilateral renal calculi there is a 2.7 cm midpole renal cyst on the right and a thick walled bladder containing debris. 09/03/2023 Patient evaluated today in follow-up medical floor. Continues on IV antibiotics for Streptococcus bacteremia. Nephrology was consulted for the worsening renal function. He is gently hydrated his creatinine today is 2.06, BUN of 28. Potassium down to 5.0. Patient is not retaining urine. 09/04/2023 Patient is evaluated today on the medical floor. Continues on IV ceftriaxone with blood culture showing streptococcus bacteremia. Patients creatinine up to 2.3 today and has been started on IV bicarbonate gtt by nephrology. Urology planning on outpatient follow up. Repeat blood culture negative so far. Review of Systems Constitutional: Denied any fatigue denied any fever. Cardio vascular: denied any chest pain, palpitations Gastrointestinal: denied any nausea, vomiting, diarrhea Pulmonary: Denied any shortness of breath cough Neurologic denied any new focal deficits All inpatient medications were reviewed and appropriate changes in these medications as dictated in the interval history and assessment and plan. PHYSICAL EXAMINATION: GENERAL: The patient is alert and oriented x3, not in any acute distress. Well developed, well nourished. HEENT: Pupils are round and equally reacting to light. EOMI. No scleral icterus. No conjunctival pallor. Normocephalic, atraumatic. No pharyngeal erythema. No thyromegaly. CARDIOVASCULAR: S1 and S2 present. No murmurs, rubs, or gallops. PULMONARY: Chest is clear to auscultation, no wheezing or crackles. ABDOMEN: Soft, nontender, nondistended, normoactive bowel sounds. No palpable organomegaly. MUSCULOSKELETAL: No joint swelling or deformity. EXTREMITIES: No cyanosis, clubbing, or pedal edema. NEUROLOGICAL: Gross neurological examination did not reveal any focal deficits. SKIN: No rashes. Mild bilateral lower extremity erythema Assessment and plan Hyperkalemia secondary to acute kidney injury monitor and repeat blood work in the AM Acute kidney injury due to acute tubular necrosis from infection, nephrology following patient has been started on IV bicarbonate gtt and repeat blood work in the AM Acute urinary tract infection with sepsis although urine culture is normal at this time and renal ultrasound reveals no obstructive uropathy Streptococcus bacteremia source of infection possibly Streptococcus cellulitis as patient has evidence of bilateral lower extremity erythema although mild. Patient does report significant tenderness to the calf area where it is red. Paroxysmal atrial fibrillation is not anticoagulated on an outpatient basis History of chronic Crohn's colitis History of gastroesophageal reflux disease History of hypertension continues on amlodipine daily History of gout History of rheumatoid arthritis Chronic anemia History of polysubstance abuse with opiate dependency patient continues on Suboxone at this time History of alcoholism Gi Prophylaxis DVT prophylaxis Full code Continues on IV antibiotics. ID following closely. Repeat blood culture negati ve so far. Urology planning on outpatient follow up in the office. The impression and plan of care has been dictated by Sonal Sun Nurse Practitioner as directed. Dr. Natacha MD I have performed a history and physical examination and medical decision making of this patient, discussed the same with the dictator, and agree with the dictators assessment and plan as written, documented as a scribe. Based on total visit time, I have performed more than 50% of this visit. Objective - Vital Signs Vital signs: Vital Signs Temp 98.0 F 09/04/23 07:35 Pulse 61 09/04/23 07:35 Resp 16 09/04/23 07:35 BP 163/68 09/04/23 07:35 Pulse Ox 97 09/04/23 07:35 FiO2 Intake & Output 09/03/23 09/04/23 09/04/23 18:59 06:59 18:59 Intake Total 944 Balance 944 Intake: Oral 944 Other: Voiding Method Toilet Toilet Toilet # Voids 2 # Bowel Movements 2 - Labs CBC & Chem 7: 09/02/23 06:29 09/04/23 04:19 Labs: Abnormal Lab Results - Last 24 Hours (Table) 09/04/23 Range/Units 04:19 Potassium 5.9 H (3.5-5.5) mmol/L Chloride 115 H (96-109) mmol/L Carbon Dioxide 15.4 L (21.6-31.8) mmol/L BUN 27.6 H (9.0-27.0) mg/dL Creatinine 2.3 H (0.6-1.5) mg/dL Est GFR (CKD-EPI) 29 L (>=60) Calcium 8.5 L (8.7-10.3) mg/dL Total Bilirubin <0.2 L (0.3-1.2) mg/dL Total Protein 5.6 L (6.2-8.2) g/dL Albumin 2.8 L (3.8-4.9) g/dL Albumin/Globulin Ratio 1.00 L (1.60-3.17) Ratio Microbiology - Last 24 Hours (Table) 09/01/23 14:16 Blood Culture - Preliminary Blood 08/30/23 14:40 Blood Culture Gram Stain - Final Blood Blood Culture - Final Streptococcus viridans group Corynebacterium species Molecular ID Assessment and Plan Time with Patient: Less than 30
--- NOTE | 2023-09-04 17:24 | P.PN ---
Subjective Progress Note Date: 09/03/23 Principal diagnosis: Reason for follow-up is recurrent urinary tract infection Patient is a 73-year-old male with a past medical history significant for hypertension hyperlipidemia atrial fibrillation rheumatoid arthritis kidney stone and recurrent UTI recent admission to the hospital with electrolyte abnormality and UTI urine cultures were negative, patient presented back to the hospital lower extremity swelling elevated potassium did have a positive UA probably this consultation. On today's evaluation that is 09/03/2023, patient has been afebrile, patient is breathing comfortably and is currently on room air, patient denies having any significant cough no chest pain shortness of breath, patient denies nausea vomiting or diarrhea and no abdominal pain, patient mention improvement in his urinary burning still have some pyuria. No CBC done today creatinine is 2.06 Objective - Vital Signs Vital signs: Vital Signs Temp 98.0 F 09/03/23 16:10 Pulse 60 09/03/23 16:10 Resp 17 09/03/23 16:10 BP 168/68 09/03/23 16:10 Pulse Ox 98 09/03/23 16:10 FiO2 Intake & Output 09/02/23 09/03/23 09/03/23 18:59 06:59 18:59 Intake Total 1276 708 Output Total 1299 400 Balance -23 -400 708 Weight 63.503 kg Intake: Intake, IV Titration 450 Amount Sodium Chloride 0.45% 1, 400 000 ml @ 50 mls/hr IV . Q20H [facility] Rx#:[id number] cefTRIAXone 2 gm In 50 Sodium Chloride 0.9% 50 ml @ 100 mls/hr IVPB Q24HR [facility] Rx#:[id number] Oral 826 708 Output: Urine 1125 400 Post Void Residual 174 Other: Voiding Method Toilet Toilet # Voids 2 # Bowel Movements 2 2 - Exam GENERAL DESCRIPTION: An elderly male lying in bed in no distress RESPIRATORY SYSTEM: Unlabored breathing , decreased breath sounds at bases HEART: S1 S2 regular rate and rhythm , ABDOMEN: Soft , no tenderness EXTREMITIES: No edema feet - Labs CBC & Chem 7: 09/02/23 06:29 09/04/23 04:19 Labs: Abnormal Lab Results - Last 24 Hours (Table) 09/03/23 Range/Units 10:00 Chloride 122 H (98-107) mmol/L Carbon Dioxide 12 L (22-30) mmol/L BUN 28 H (9-20) mg/dL Creatinine 2.06 H (0.66-1.25) mg/dL Calcium 8.2 L (8.4-10.2) mg/dL Microbiology - Last 24 Hours (Table) 08/30/23 14:40 Blood Culture Gram Stain - Final Blood Blood Culture - Final Streptococcus viridans group Corynebacterium species Molecular ID 09/01/23 14:16 Blood Culture - Preliminary Blood 08/30/23 14:30 Blood Culture Gram Stain - Preliminary Blood Blood Culture - Preliminary Assessment and Plan (1) Positive blood culture Current Visit: Yes Status: Acute Code(s): R78.81 - BACTEREMIA SNOMED Code(s): 924969627 (2) Urinary tract infection Current Visit: Yes Status: Acute Code(s): N39.0 - URINARY TRACT INFECTION, SITE NOT SPECIFIED SNOMED Code(s): 89203617 Plan: 1patient presented to hospital with weakness shortness of breath urinary sy mptoms of burning positive UA concerning for persistent/recurrent UTI and this patient did have a history of kidney stone could be related to the this episode of recurrent UTI patient did have elevated creatinine will need to rule out obstructive uropathy 2-ultrasound of the kidney and bladder area, did not show any hydronephrosis nonobstructive stone and debris's in the bladder 3-patient did have a positive blood culture with strep viridans, question of skin contamination versus pathogen blood culture has been repeated 4-patient to continue with Rocephin, currently waiting for urology evaluation Dictation was produced using [employer] dictation software. please excuse any grammatical, word or spelling errors. Time with Patient: Less than 30
--- NOTE | 2023-09-04 17:25 | P.PN ---
Subjective Progress Note Date: 09/04/23 Principal diagnosis: Reason for follow-up is recurrent urinary tract infection Patient is a 73-year-old male with a past medical history significant for hypertension hyperlipidemia atrial fibrillation rheumatoid arthritis kidney stone and recurrent UTI recent admission to the hospital with electrolyte abnormality and UTI urine cultures were negative, patient presented back to the hospital lower extremity swelling elevated potassium did have a positive UA probably this consultation. On today's evaluation that is 09/04/2023,the patient denies any fever or any chills, patient is breathing comfortably on room air, the patient denies chest pain shortness of breath and no significant cough, patient denies abdominal pain, no nausea vomiting or diarrhea. Patient did have improvement his urinary symptoms of burning Patient did have a creatinine of 2.3 no CBC was done today, blood culture repeat has been negative Objective - Vital Signs Vital signs: Vital Signs Temp 98.0 F 09/04/23 14:40 Pulse 76 09/04/23 14:40 Resp 16 09/04/23 14:40 BP 164/66 09/04/23 14:40 Pulse Ox 100 09/04/23 14:40 FiO2 Intake & Output 09/03/23 09/04/23 09/04/23 18:59 06:59 18:59 Intake Total 944 236 Output Total 400 Balance 944 -164 Intake: Oral 944 236 Output: Urine 400 Other: Voiding Method Toilet Toilet Toilet # Voids 2 # Bowel Movements 2 - Exam GENERAL DESCRIPTION: An elderly male lying in bed in no distress RESPIRATORY SYSTEM: Unlabored breathing , decreased breath sounds at bases HEART: S1 S2 regular rate and rhythm , ABDOMEN: Soft , no tenderness EXTREMITIES: No edema feet - Labs CBC & Chem 7: 09/02/23 06:29 09/04/23 04:19 Labs: Abnormal Lab Results - Last 24 Hours (Table) 09/04/23 Range/Units 04:19 Potassium 5.9 H (3.5-5.5) mmol/L Chloride 115 H (96-109) mmol/L Carbon Dioxide 15.4 L (21.6-31.8) mmol/L BUN 27.6 H (9.0-27.0) mg/dL Creatinine 2.3 H (0.6-1.5) mg/dL Est GFR (CKD-EPI) 29 L (>=60) Calcium 8.5 L (8.7-10.3) mg/dL Total Bilirubin <0.2 L (0.3-1.2) mg/dL Total Protein 5.6 L (6.2-8.2) g/dL Albumin 2.8 L (3.8-4.9) g/dL Albumin/Globulin Ratio 1.00 L (1.60-3.17) Ratio Microbiology - Last 24 Hours (Table) 09/01/23 14:16 Blood Culture - Preliminary Blood Assessment and Plan (1) Positive blood culture Current Visit: Yes Status: Acute Code(s): R78.81 - BACTEREMIA SNOMED Code(s): 435479763 (2) Urinary tract infection Current Visit: Yes Status: Acute Code(s): N39.0 - URINARY TRACT INFECTION, SITE NOT SPECIFIED SNOMED Code(s): 71057623 Plan: 1patient presented to hospital with weakness shortness of breath urinary symptoms of burning positive UA concerning for persistent/recurrent UTI and this patient did have a history of kidney stone could be related to the this episode of recurrent UTI patient did have elevated creatinine will need to rule out obstructive uropathy 2-ultrasound of the kidney and bladder area, did not show any hydronephrosis nonobstructive stone and debris's in the bladder 3-patient did have a positive blood culture with strep viridans, question of skin contamination versus pathogen blood culture has been repeated which are negative so far 4-patient has been eval by urology recommending outpatient cystoscopy apparently he did have a negative cystoscopy about 3 months ago 5-keeping in mind improvement in his symptoms with Rocephin and failure of Ceftin recommend midline and short course of IV Rocephin on discharge Dictation was produced using [employer] software. please excuse any grammatical, word or spelling errors. Time with Patient: Less than 30
[2023-09-05] MEDS: ONDANSETRON 4 MG/2 ML VIAL IVP PRN (04:54)
--- NOTE | 2023-09-05 08:46 | P.PN ---
Subjective Progress Note Date: 09/05/23 This is a 73-year-old male who was sent to the ER for evaluation after abnormal labs in our office, patient had hyperkalemia and worsening kidney function. Patient recently admitted for difficulties with chronic UTIs, however culture at that time was normal. Patient still having complaints of dysuria and frequency. Blood culture completed and was positive, he remains on Rocephin. Infectious disease is on board. No growth to urine culture yet. Vitals are stable, no fever. Patient is tolerating diet. 09/05/2023 Patient is seen and evaluated laying in bed this morning. Infectious disease is recommending a midline for outpatient antibiotics with rocephin. Urine culture was negative. Kidney function continues to worsen and creatinine yesterday was 2.3. Labs pending for today. No fever noted. He reports he is urinating more frequently and it is clear. Objective - Vital Signs Vital signs: Vital Signs Temp 98.2 F 09/05/23 07:24 Pulse 60 09/05/23 07:24 Resp 17 09/05/23 07:24 BP 155/66 09/05/23 07:24 Pulse Ox 95 09/05/23 07:24 FiO2 Intake & Output 09/04/23 09/05/23 09/05/23 18:59 06:59 18:59 Intake Total 236 Output Total 800 900 Balance -564 -900 Intake: Oral 236 Output: Urine 800 900 Other: Voiding Method Toilet Toilet - Constitutional General appearance: Present: cooperative, no acute distress - EENT Eyes: Present: PERRLA - Neck Neck: Present: normal ROM. Absent: lymphadenopathy, rigidity - Respiratory Respiratory: bilateral: CTA - Cardiovascular Heart sounds: normal: S1, S2 - Gastrointestinal General gastrointestinal: Present: soft. Absent: tenderness - Integumentary Integumentary: Present: normal, normal turgor - Musculoskeletal Musculoskeletal: Present: generalized weakness - Psychiatric Psychiatric: Present: A&O x's 3, appropriate affect, intact judgment & insight - Labs CBC & Chem 7: 09/02/23 06:29 09/04/23 04:19 Labs: Abnormal Lab Results - Last 24 Hours (Table) 09/04/23 Range/Units 04:19 Potassium 5.9 H (3.5-5.5) mmol/L Chloride 115 H (96-109) mmol/L Carbon Dioxide 15.4 L (21.6-31.8) mmol/L BUN 27.6 H (9.0-27.0) mg/dL Creatinine 2.3 H (0.6-1.5) mg/dL Est GFR (CKD-EPI) 29 L (>=60) Calcium 8.5 L (8.7-10.3) mg/dL Total Bilirubin <0.2 L (0.3-1.2) mg/dL Total Protein 5.6 L (6.2-8.2) g/dL Albumin 2.8 L (3.8-4.9) g/dL Albumin/Globulin Ratio 1.00 L (1.60-3.17) Ratio Microbiology - Last 24 Hours (Table) 09/01/23 14:16 Blood Culture - Preliminary Blood Assessment and Plan (1) Hyperkalemia Current Visit: Yes Status: Acute Code(s): E87.5 - HYPERKALEMIA SNOMED Code(s): 89631487 (2) Urinary tract infection Current Visit: Yes Status: Acute Code(s): N39.0 - URINARY TRACT INFECTION, SITE NOT SPECIFIED SNOMED Code(s): 06999560 (3) Atrial fibrillation Current Visit: No Status: Acute Code(s): I48.91 - UNSPECIFIED ATRIAL FIBRILL ATION SNOMED Code(s): 67458237 (4) Crohn's colitis Current Visit: No Status: Acute Code(s): K50.10 - CROHN'S DISEASE OF LARGE INTESTINE WITHOUT COMPLICATIONS SNOMED Code(s): 11986921 (5) GERD (gastroesophageal reflux disease) Current Visit: No Status: Acute Code(s): K21.9 - GASTRO-ESOPHAGEAL REFLUX DISEASE WITHOUT ESOPHAGITIS SNOMED Code(s): 826640243 (6) Hypertension Current Visit: No Status: Acute Code(s): I10 - ESSENTIAL (PRIMARY) HYPERTENSION SNOMED Code(s): 07540688 (7) Nausea and vomiting Current Visit: No Status: Acute Code(s): R11.2 - NAUSEA WITH VOMITING, UNSPECIFIED SNOMED Code(s): 24811411 (8) Opiate dependence Current Visit: No Status: Acute Code(s): F11.20 - OPIOID DEPENDENCE, UNCOMPLICATED SNOMED Code(s): 22146007 (9) Gout Current Visit: No Status: Chronic Code(s): M10.9 - GOUT, UNSPECIFIED SNOMED Code(s): 48494729 (10) Rheumatoid arthritis Current Visit: No Status: Chronic Code(s): M06.9 - RHEUMATOID ARTHRITIS, UNSPECIFIED SNOMED Code(s): 13973448 (11) Chronic anemia Current Visit: No Status: Acute Code(s): D64.9 - ANEMIA, UNSPECIFIED SNOMED Code(s): 747389691 Plan: Check CBC and CMP in the morning Order midline for outpatient IV antibiotics per Dr. Mcclure's recommendation Appreciate multiple consultants. Patient seen and evaluated by nurse practitioner, physician in agreement with plan
[2023-09-05] MEDS ORDERED: hydrALAZINE HCL 20 MG/ML 1 ML VIAL IVP PRN (09:09)
--- NOTE | 2023-09-05 09:10 | P.PN ---
Subjective Patient is seen in follow-up for acute kidney injury. Creatinine 2.3 yesterday. Currently on bicarb drip. Has been voiding. No vomiting or diarrhea. Oral intake is good. Vital signs are stable. General: No acute distress. HEENT: Head exam is unremarkable. LUNGS: No audible rhonchi or wheezes. HEART: Rate and Rhythm are regular. ABDOMEN: Nontender. EXTREMITITES: No edema. Objective - Vital Signs Vital signs: Vital Signs Temp 98.2 F 09/05/23 07:24 Pulse 60 09/05/23 07:24 Resp 17 09/05/23 07:24 BP 155/66 09/05/23 07:24 Pulse Ox 95 09/05/23 07:24 FiO2 Intake & Output 09/04/23 09/05/23 09/05/23 18:59 06:59 18:59 Intake Total 236 Output Total 800 900 Balance -564 -900 Intake: Oral 236 Output: Urine 800 900 Other: Voiding Method Toilet Toilet - Labs CBC & Chem 7: 09/02/23 06:29 09/04/23 04:19 Labs: Abnormal Lab Results - Last 24 Hours (Table) 09/04/23 Range/Units 04:19 Potassium 5.9 H (3.5-5.5) mmol/L Chloride 115 H (96-109) mmol/L Carbon Dioxide 15.4 L (21.6-31.8) mmol/L BUN 27.6 H (9.0-27.0) mg/dL Creatinine 2.3 H (0.6-1.5) mg/dL Est GFR (CKD-EPI) 29 L (>=60) Calcium 8.5 L (8.7-10.3) mg/dL Total Bilirubin <0.2 L (0.3-1.2) mg/dL Total Protein 5.6 L (6.2-8.2) g/dL Albumin 2.8 L (3.8-4.9) g/dL Albumin/Globulin Ratio 1.00 L (1.60-3.17) Ratio Microbiology - Last 24 Hours (Table) 09/01/23 14:16 Blood Culture - Preliminary Blood Assessment and Plan Plan: Assessment: 1. Acute kidney injury secondary to ATN secondary to severe sepsis. No hydronephrosis noted on kidney ultrasound. Creatinine fairly stable at 2.3 today. Patient was admitted at this facility in July 2023 and creatinine at that time ranged from 1.4-2.1. Serologies were checked in August 2023 and were negative except for positive NAKUL. Creatinine as low as 0.92 dated May 05, 2023. However it seems patient's renal function has worsened and has possibly developed chronic kidney disease from obstructive uropathy. Patient had right ureteral stent placed earlier this year and was removed in May 2023. 2. Bilateral nephrolithiasis secondary to Crohn's disease. Seen by urology. No plans for intervention at this time. 3. Strep bacteremia and UTI on antibiotics. ID following. 4. Hyperkalemia secondary to acute kidney injury and metabolic acidosis. 5. Metabolic acidosis secondary to acute kidney injury and IV fluids. On bicarb drip. Also on oral bicarb. 6. Benign hypertension. 7. Anemia. Possibly from underlying chronic kidney disease. Plan: Maintain bicarb drip. Follow-up morning labs. Avoid IV iron in the setting of acute infection. Add Aranesp. Continue to monitor renal function and urine output. Advised to follow-up outpatient 1 week postdischarge.
[2023-09-05] MEDS: DARBEPOETIN ALFA 40 MCG/0.4 ML SYRINGE SQ SCH (11:09)
[2023-09-05 12:51] LABS: HCT 28.6 % (39.0-53.0); HGB 8.5 gm/dL (13.0-17.5); Hypochromasia Marked; MCH 30.5 pg (25.0-35.0); MCHC 29.7 g/dL (31.0-37.0); MCV 102.7 fL (80.0-100.0); Macrocytosis Slight; Mean Platelet Volume 8.7; Platelet Count 194 k/uL (150-450); RBC 2.78 m/uL (4.30-5.90); RDW 14.1 % (11.5-15.5); WBC 4.9 k/uL (3.8-10.6)
--- NOTE | 2023-09-05 13:12 | CDI ---
Documentation Clarification Form Date: 09/05/2023 12:58:55 PM From: Chayo Jordan RN CCDS Phone: [phone] Admit Date: 09/02/2023 08:53:00 AM Patient Name: Silvano Rajan Visit Number: [id number] Discharge Date: ATTENTION: The Clinical Documentation Specialists (CDI) and [facility] Coding Staff appreciate your assistance in clarifying documentation. Please respond to the clarification below the line at the bottom and electronically sign. The CDI & [facility] Coding staff will review the response and follow-up if needed. Please note: Queries are made part of the Legal Health Record. If you have any questions, please contact the author of this message via ITS. Dr. Minh Saldaña There is documentation of bacteremia [insert documentation, date, location]. Bacteremia is considered a lab finding. Additional clarification regarding bacteremia is requested. Patient history/risk factors: 73-year old male presents to the ED was told to present for elevated potassium. Medical History: Atrial Fibrillation, Deafness, Crohns and Utis. 08/30, H&P. Clinical Indicators: VSS, 08/29: B/P 183/87; HR 63; Temp 97.6F oral; RR 16; SpO2 100% room air WBC, 08/29: 6.0 Neutrophils, 08/29: 3.5 Blood Culture, 08/29: Final Rothia aera; 08/29: Final Streptococcus viridans group Corynebacterium species Molecular ID 09/04 Medicine note: Patient is seen and evaluated laying in bed this morning.Infectious disease is recommending a midline for outpatient antibiotics with rocephin. Urine culture was negative. ID note, 09/03: -patient did have a positive blood culture with strep viridans, question of skin contamination versus pathogen blood culture has been repeated which are negative so far Treatment: Antibiotics: 08/29 Rocephin 1,000mg IVP x 1; 08/30 Ceftriaxone 2gm IVPB Q24H ID consult above. Please provide additional clarification regarding the etiology/cause and/or clinical significance of the bacteremia: [ ] Bacteremia is related to sepsis [ x] Bacteremia is due to infectious process, please specify: _UTI____ [ ] Bacteremia is not clinically significant [ ] Other, please specify [ ] Unable to determine (Template Last Revised: June 2020) MTDD
[2023-09-05 13:20] LABS: ALT 25 U/L (4-49); AST 26 U/L (17-59); African American GFR (CKD) 41 (>60 ml/min/1.73 sqM); Albumin 2.5 g/dL (3.5-5.0); Albumin/Globulin Ratio 0.8; Alkaline Phosphatase 88 U/L (38-126); Anion Gap 5 mmol/L; Blood Urea Nitrogen 27 mg/dL (9-20); Calcium 8.5 mg/dL (8.4-10.2); Carbon Dioxide 18 mmol/L (22-30); Chloride 114 mmol/L (98-107); Globulin 3.2 g/dL; Glucose 97 mg/dL (74-99); Non-African American GFR(CKD) 36 (>60 ml/min/1.73 sqM); Potassium 5.7 mmol/L (3.5-5.1); Sodium 137 mmol/L (137-145); Total Bilirubin <0.1 mg/dL (0.2-1.3); Total Protein 5.7 g/dL (6.3-8.2)
--- NOTE | 2023-09-05 22:35 | P.PN ---
Subjective Progress Note Date: 09/05/23 Principal diagnosis: Reason for follow-up is recurrent urinary tract infection Patient is a 73-year-old male with a past medical history significant for hypertension hyperlipidemia atrial fibrillation rheumatoid arthritis kidney stone and recurrent UTI recent admission to the hospital with electrolyte abnormality and UTI urine cultures were negative, patient presented back to the hospital lower extremity swelling elevated potassium did have a positive UA probably this consultation. On today's evaluation that is 09/05/2023,the patient remains to be afebrile, patient is on room air not requiring supplemental oxygen and denies any shortness of breath no chest pain or cough.Patient denies having any nausea or vomiting, no abdominal pain and no diarrhea has been reported , Patient mention some improvement in urinary symptoms with IV and by therapy. Patient white count is 4.9, creatinine is 1.83 Objective - Vital Signs Vital signs: Vital Signs Temp 98.2 F 09/05/23 07:24 Pulse 60 09/05/23 08:00 Resp 17 09/05/23 08:00 BP 155/66 09/05/23 07:24 Pulse Ox 95 09/05/23 07:24 FiO2 Intake & Output 09/04/23 09/05/23 09/05/23 18:59 06:59 18:59 Intake Total 236 480 Output Total 800 900 200 Balance -564 -900 280 Intake: Oral 236 480 Output: Urine 800 900 200 Other: Voiding Method Toilet Toilet Toilet # Voids 2 - Exam GENERAL DESCRIPTION: An elderly male lying in bed in no distress RESPIRATORY SYSTEM: Unlabored breathing , decreased breath sounds at bases HEART: S1 S2 regular rate and rhythm , ABDOMEN: Soft , no tenderness EXTREMITIES: No edema feet - Labs CBC & Chem 7: 09/05/23 11:54 09/05/23 11:54 Labs: Microbiology - Last 24 Hours (Table) 08/30/23 14:30 Blood Culture Gram Stain - Final Blood Blood Culture - Final Rothia aeria 09/01/23 14:16 Blood Culture - Preliminary Blood Assessment and Plan (1) Positive blood culture Current Visit: Yes Status: Acute Code(s): R78.81 - BACTEREMIA SNOMED Code(s): 064773618 (2) Urinary tract infection Current Visit: Yes Status: Acute Code(s): N39.0 - URINARY TRACT INFECTION, SITE NOT SPECIFIED SNOMED Code(s): 45725578 Plan: 1patient presented to hospital with weakness shortness of breath urinary symptoms of burning positive UA concerning for persistent/recurrent UTI and this patient did have a history of kidney stone could be related to the this episode of recurrent UTI patient did have elevated creatinine will need to rule out obstructive uropathy 2-ultrasound of the kidney and bladder area, did not show any hydronephrosis nonobstructive stone and debris's in the bladder 3-patient did have a positive blood culture with strep viridans, question of skin contamination versus pathogen blood culture has been repeated which are negative so far 4-patient has been eval by urology recommending outpatient cystoscopy apparently he did have a negative cystoscopy about 3 months ago 5-patient to [facility] waiting for midline placement and outpatient antibiotic arrangement before discharge Dictation was produced using [employer] dictation software. please excuse any grammatical, word or spelling errors. Time with Patient: Less than 30
--- NOTE | 2023-09-06 09:10 | P.PN ---
Subjective Progress Note Date: 09/06/23 This is a 73-year-old male who was sent to the ER for evaluation after abnormal labs in our office, patient had hyperkalemia and worsening kidney function. Patient recently admitted for difficulties with chronic UTIs, however culture at that time was normal. Patient still having complaints of dysuria and frequency. Blood culture completed and was positive, he remains on Rocephin. Infectious disease is on board. No growth to urine culture yet. Vitals are stable, no fever. Patient is tolerating diet. 09/05/2023 Patient is seen and evaluated laying in bed this morning. Infectious disease is recommending a midline for outpatient antibiotics with rocephin. Urine culture was negative. Kidney function continues to worsen and creatinine yesterday was 2.3. Labs pending for today. No fever noted. He reports he is urinating more frequently and it is clear. 09/06/2023 Patient seen and evaluated sitting up in bed eating breakfast. He did have midline placement yesterday. Creatinine is trending down as of yesterday, however potassium is still elevated. He reports he does feel like he has more energy today. However he is still urinating quite frequently. Today's labs are not back at time of dictation. Objective - Vital Signs Vital signs: Vital Signs Temp 98.2 F 09/06/23 08:00 Pulse 56 L 09/06/23 08:00 Resp 15 09/06/23 08:00 BP 162/70 09/06/23 08:00 Pulse Ox 95 09/06/23 08:00 FiO2 Intake & Output 09/05/23 09/06/23 09/06/23 18:59 06:59 18:59 Intake Total 1160 118 Output Total 875 200 Balance 285 -200 118 Intake: Oral 1160 118 Output: Urine 875 200 Other: Voiding Method Toilet Toilet # Voids 1 - Constitutional General appearance: Present: cooperative, no acute distress - EENT Eyes: Present: PERRLA - Neck Neck: Present: normal ROM. Absent: lymphadenopathy, rigidity - Respiratory Respiratory: bilateral: CTA - Cardiovascular Heart sounds: normal: S1, S2 - Gastrointestinal General gastrointestinal: Present: soft. Absent: tenderness - Integumentary Integumentary: Present: normal, normal turgor - Musculoskeletal Musculoskeletal: Present: generalized weakness - Psychiatric Psychiatric: Present: A&O x's 3, appropriate affect, intact judgment & insight - Labs CBC & Chem 7: 09/05/23 11:54 09/05/23 11:54 Labs: Abnormal Lab Results - Last 24 Hours (Table) 09/05/23 09/05/23 Range/Units 11:54 11:54 RBC 2.78 L (4.30-5.90) m/uL Hgb 8.5 L (13.0-17.5) gm/dL Hct 28.6 L (39.0-53.0) % MCV 102.7 H (80.0-100.0) fL MCHC 29.7 L (31.0-37.0) g/dL Potassium 5.7 H (3.5-5.1) mmol/L Chloride 114 H (98-107) mmol/L Carbon Dioxide 18 L (22-30) mmol/L BUN 27 H (9-20) mg/dL Creatinine 1.83 H (0.66-1.25) mg/dL Total Bilirubin <0.1 L (0.2-1.3) mg/dL Total Protein 5.7 L (6.3-8.2) g/dL Albumin 2.5 L (3.5-5.0) g/dL Microbiology - Last 24 Hours (Table) 08/30/23 14:30 Blood Culture Gram Stain - Final Blood Blood Culture - Final Rothia aeria Assessment and Plan (1) Hyperkalemia Current Visit: Yes Status: Acute Code(s): E87.5 - HYPERKALEMIA SNOMED Code(s): 31403091 (2) Urinary tract infection Current Visit: Yes Status: Acute Code(s): N39.0 - URINARY TRACT INFECTION, SITE NOT SPECIFIED SNOMED Code(s): 03246735 (3) Atrial fibrillation Current Visit: No Status: Acute Code(s): I48.91 - UNSPECIFIED ATRIAL FIBRILLATION SNOMED Code(s): 13023083 (4) Crohn's colitis Current Visit: No Status: Acute Code(s): K50.10 - CROHN'S DISEASE OF LARGE INTESTINE WITHOUT COMPLICATIONS SNOMED Code(s): 29545565 (5) GERD (gastroesophageal reflux disease) Current Visit: No Status: Acute Code(s): K21.9 - GASTRO-ESOPHAGEAL REFLUX DISEASE WITHOUT ESOPHAGITIS SNOMED Code(s): 876123931 (6) Hypertension Current Visit: No Status: Acute Code(s): I10 - ESSENTIAL (PRIMARY) HYPERTENS ION SNOMED Code(s): 61695158 (7) Nausea and vomiting Current Visit: No Status: Acute Code(s): R11.2 - NAUSEA WITH VOMITING, UNSPECIFIED SNOMED Code(s): 75730735 (8) Opiate dependence Current Visit: No Status: Acute Code(s): F11.20 - OPIOID DEPENDENCE, UNCOMPLICATED SNOMED Code(s): 88228222 (9) Gout Current Visit: No Status: Chronic Code(s): M10.9 - GOUT, UNSPECIFIED SNOMED Code(s): 33207526 (10) Rheumatoid arthritis Current Visit: No Status: Chronic Code(s): M06.9 - RHEUMATOID ARTHRITIS, UNSPECIFIED SNOMED Code(s): 93644668 (11) Chronic anemia Current Visit: No Status: Acute Code(s): D64.9 - ANEMIA, UNSPECIFIED SNOMED Code(s): 695749029 Plan: Check CBC and CMP in the morning Will need to check with infectious disease about length of IV antibiotics at discharge Work with care management to set up home care and IV antibiotics at home. Anticipate discharge in the next 24 to 48 hours Patient seen and evaluated by nurse practitioner, physician in agreement with plan
--- NOTE | 2023-09-06 10:50 | P.PN ---
Subjective Patient is seen in follow-up for acute kidney injury. Creatinine 1.83 yesterday. Currently on bicarb drip. Has been voiding. No vomiting or diar kai. Oral intake is good. No active complaints. Vital signs are stable. General: No acute distress. HEENT: Head exam is unremarkable. LUNGS: No audible rhonchi or wheezes. HEART: Rate and Rhythm are regular. ABDOMEN: Nontender. EXTREMITITES: No edema. Objective - Vital Signs Vital signs: Vital Signs Temp 98.2 F 09/06/23 08:00 Pulse 56 L 09/06/23 08:00 Resp 15 09/06/23 08:00 BP 162/70 09/06/23 08:00 Pulse Ox 95 09/06/23 08:00 FiO2 Intake & Output 09/05/23 09/06/23 09/06/23 18:59 06:59 18:59 Intake Total 1160 118 Output Total 875 200 Balance 285 -200 118 Intake: Oral 1160 118 Output: Urine 875 200 Other: Voiding Method Toilet Toilet Toilet # Voids 1 - Labs CBC & Chem 7: 09/05/23 11:54 09/05/23 11:54 Labs: Abnormal Lab Results - Last 24 Hours (Table) 09/05/23 09/05/23 Range/Units 11:54 11:54 RBC 2.78 L (4.30-5.90) m/uL Hgb 8.5 L (13.0-17.5) gm/dL Hct 28.6 L (39.0-53.0) % MCV 102.7 H (80.0-100.0) fL MCHC 29.7 L (31.0-37.0) g/dL Potassium 5.7 H (3.5-5.1) mmol/L Chloride 114 H (98-107) mmol/L Carbon Dioxide 18 L (22-30) mmol/L BUN 27 H (9-20) mg/dL Creatinine 1.83 H (0.66-1.25) mg/dL Total Bilirubin <0.1 L (0.2-1.3) mg/dL Total Protein 5.7 L (6.3-8.2) g/dL Albumin 2.5 L (3.5-5.0) g/dL Microbiology - Last 24 Hours (Table) 08/30/23 14:30 Blood Culture Gram Stain - Final Blood Blood Culture - Final Rothia aeria Assessment and Plan Plan: Assessment: 1. Acute kidney injury secondary to ATN secondary to severe sepsis. No hydronephrosis noted on kidney ultrasound. Creatinine fairly stable at 1.83 yesterday. Patient was admitted at this facility in July 2023 and creatinine at that time ranged from 1.4-2.1. Serologies were checked in August 2023 and were negative except for positive NAKUL. Creatinine as low as 0.92 dated May 05, 2023. However it seems patient's renal function has worsened and has possibly developed chronic kidney disease from obstructive uropathy. Patient had right ureteral stent placed earlier this year and was removed in May 2023. 2. Bilateral nephrolithiasis secondary to Crohn's disease. Seen by urology. No plans for intervention at this time. 3. Strep bacteremia and UTI on antibiotics. ID following. 4. Hyperkalemia secondary to acute kidney injury and metabolic acidosis. 5. Metabolic acidosis secondary to acute kidney injury and IV fluids. On bicarb drip. Also on oral bicarb. 6. Benign hypertension. 7. Anemia. Possibly from underlying chronic kidney disease. On Aranesp. Plan: Maintain bicarb drip. Follow-up morning labs. Avoid IV iron in the setting of acute infection. Low potassium diet. Continue to monitor renal function and urine output. Advised to follow-up outpatient 1 week postdischarge.
[2023-09-06 12:10] LABS: ALT 19 U/L (10-49); AST 21 U/L (14-35); Albumin 2.8 g/dL (3.8-4.9); Albumin/Globulin Ratio 1.08 Ratio (1.60-3.17); Alkaline Phosphatase 83 U/L (41-126); BUN/Creat Ratio 15.44 Ratio (12.00-20.00); Blood Urea Nitrogen 27.8 mg/dL (9.0-27.0); Calcium 8.4 mg/dL (8.7-10.3); Carbon Dioxide 21.2 mmol/L (21.6-31.8); Chloride 108 mmol/L (96-109); Globulin 2.6 g/dL (1.6-3.3); Glucose 100 mg/dL (70-110); Magnesium 1.3 mg/dL (1.5-2.4); Potassium 5.3 mmol/L (3.5-5.5); Sodium 137 mmol/L (135-145); Total Bilirubin <0.2 mg/dL (0.3-1.2); Total Protein 5.4 g/dL (6.2-8.2)
[2023-09-06 12:15] LABS: HCT 25.3 % (39.6-50.0); HGB 7.8 g/dL (13.0-17.0); MCH 30.2 pg (27.0-32.0); MCHC 30.8 g/dL (32.0-37.0); MCV 98.1 FL (80.0-97.0); Mean Platelet Volume 12.5 FL (9.5-12.2); NRBC Per 100 WBC 0 X 10*3/uL (0.00-0.01); Platelet Count 192 X 10*3/uL (140-440); RBC 2.58 X 10*6/uL (4.40-5.60); RDW 13.5 % (11.5-14.5); WBC 3.99 X 10*3/uL (4.50-10.00)
--- NOTE | 2023-09-06 13:21 | P.PN ---
Subjective Progress Note Date: 09/06/23 Principal diagnosis: Reason for follow-up is recurrent urinary tract infection Patient is a 73-year-old male with a past medical history significant for hypertension hyperlipidemia atrial fibrillation rheumatoid arthritis kidney stone and recurrent UTI recent admission to the hospital with electrolyte abnormality and UTI urine cultures were negative, patient presented back to the hospital lower extremity swelling elevated potassium did have a positive UA probably this consultation. On today's evaluation that is 09/06/2023, the patient continues to be afebrile, the patient is on room air and breathing comfortably, the Pt denies having any chest pain or cough, the patient denies having any abdominal pain no vomiting or any diarrhea mention some frequency of urine yesterday however improved today denies any worsening burning Patient white count is 3.99 potassium is 5.3 creatinine is 1.8 repeat blood culture negative Objective - Vital Signs Vital signs: Vital Signs Temp 98.2 F 09/06/23 08:00 Pulse 56 L 09/06/23 08:00 Resp 15 09/06/23 08:00 BP 162/70 09/06/23 08:00 Pulse Ox 95 09/06/23 08:00 FiO2 Intake & Output 09/05/23 09/06/23 09/06/23 18:59 06:59 18:59 Intake Total 1160 118 Output Total 875 200 Balance 285 -200 118 Intake: Oral 1160 118 Output: Urine 875 200 Other: Voiding Method Toilet Toilet Toilet # Voids 1 - Exam GENERAL DESCRIPTION: An elderly male lying in bed in no distress RESPIRATORY SYSTEM: Unlabored breathing , decreased breath sounds at bases HEART: S1 S2 regular rate and rhythm , ABDOMEN: Soft , no tenderness EXTREMITIES: No edema feet - Labs CBC & Chem 7: 09/06/23 06:42 09/06/23 06:42 Labs: Abnormal Lab Results - Last 24 Hours (Table) 09/05/23 09/05/23 Range/Units 11:54 11:54 RBC 2.78 L (4.30-5.90) m/uL Hgb 8.5 L (13.0-17.5) gm/dL Hct 28.6 L (39.0-53.0) % MCV 102.7 H (80.0-100.0) fL MCHC 29.7 L (31.0-37.0) g/dL Potassium 5.7 H (3.5-5.1) mmol/L Chloride 114 H (98-107) mmol/L Carbon Dioxide 18 L (22-30) mmol/L BUN 27 H (9-20) mg/dL Creatinine 1.83 H (0.66-1.25) mg/dL Total Bilirubin <0.1 L (0.2-1.3) mg/dL Total Protein 5.7 L (6.3-8.2) g/dL Albumin 2.5 L (3.5-5.0) g/dL Microbiology - Last 24 Hours (Table) 08/30/23 14:30 Blood Culture Gram Stain - Final Blood Blood Culture - Final Rothia aeria Assessment and Plan (1) Positive blood culture Current Visit: Yes Status: Acute Code(s): R78.81 - BACTEREMIA SNOMED Cod e(s): 668631773 (2) Urinary tract infection Current Visit: Yes Status: Acute Code(s): N39.0 - URINARY TRACT INFECTION, SITE NOT SPECIFIED SNOMED Code(s): 41927998 Plan: 1patient presented to hospital with weakness shortness of breath urinary symptoms of burning positive UA concerning for persistent/recurrent UTI and this patient did have a history of kidney stone could be related to the this episode of recurrent UTI patient did have elevated creatinine will need to rule out obstructive uropathy 2-ultrasound of the kidney and bladder area, did not show any hydronephrosis nonobstructive stone and debris's in the bladder 3-patient did have a positive blood culture with strep viridans, question of skin contamination versus pathogen blood culture has been repeated which are negative so far 4-patient has been eval by urology recommending outpatient cystoscopy apparently he did have a negative cystoscopy about 3 months ago 5-patient mention some improvement in the urinary symptoms with Rocephin which should be continued for few weeks in the outpatient setting as possible concern for prostatitis Dictation was produced using [employer] software. please excuse any grammatical, word or spelling errors. Time with Patient: Less than 30
[2023-09-06 16:15] VITALS: RESP 16
[2023-09-06] MEDS: MAGNESIUM SULFATE-D5W PMX 1 GM in DEXTROSE/WATER 1 100ML.BAG IVPB SCH (17:10)
[2023-09-06] MEDS: SODIUM ZIRCONIUM CYCLOSILICATE 10 GM PACKET PO ONE (17:52)
[2023-09-06] MEDS: SODIUM BICARBONATE TAB 650 MG TAB PO SCH (20:38)
[2023-09-06] MEDS: SUBOXONE SUBLINGUAL SCH (20:38)
[2023-09-06] MEDS: MAGNESIUM OXIDE 400 MG TAB PO SCH (20:38)
[2023-09-07 07:53] VITALS: BP 150/75; PULSE 57; TEMP 97.7
--- NOTE | 2023-09-07 08:47 | P.DS ---
Providers Date of admission: 09/02/23 08:53 Attending physician: Minh Saldaña Consults: 08/30/23 15:20 Consult Physician Urgent Consulting Provider: Corry Mcclure Consult Reason/Comments: UTI Do you want consulting provider notified?: Yes 09/02/23 15:26 Consult Physician Routine Consulting Provider: Edd Clement Consult Reason/Comments: UTI symptoms, bladder wall thickening Do you want consulting provider notified?: Yes 09/03/23 09:47 Consult Physician Routine Consulting Provider: Madelyn Keith Consult Reason/Comments: worsening renal function Do you want consulting provider notified?: Yes Primary care physician: Minh Saldaña - Discharge Diagnosis(es) (1) Hyperkalemia Current Visit: Yes Status: Acute (2) Urinary tract infection Current Visit: Yes Status: Acute (3) Chronic anemia Current Visit: No Status: Acute (4) Crohns disease Current Visit: No Status: Acute (5) GERD (gastroesophageal reflux disease) Current Visit: No Status: Acute (6) Nausea and vomiting Current Visit: No Status: Acute (7) Opiate dependence Current Visit: No Status: Acute (8) Gout Current Visit: No Status: Chronic (9) Rheumatoid arthritis Current Visit: No Status: Chronic Hospital Course: Is a 70-year-old white male with known history of rheumatoid arthritis and Crohn's disease who is on biologic treatment. I do suspect this is an issue with his recurrent infection. He has a hypertensive renal disease. Blood pressure has been very difficult to control over the last 10 years. He is now on hydralazine with Norvasc. Appreciate multiple consultants input including infectious disease and nephrology. The patient was stabilized and will be sent home on a course of ceftriaxone home therapy for the next 7 to 10 days. Patient to follow-up with me in 1 week. Per kalemia is also noted but I suspect this is related to renal disease. Renal diet was reiterated to the patient. He will be discharged in stable condition today. Plan - Discharge Summary Discharge Rx Participant: No New Discharge Prescriptions: New hydrALAZINE HCL [Apresoline] 75 mg PO TID #90 tab cefTRIAXone [Rocephin] 2 gm IVPB Q24HR 10 Days #10 each Darbepoetin Michael [Aranesp] 40 mcg SQ Q7D #4 each Continue amLODIPine [Norvasc] 10 mg PO DAILY Adalimumab [Humira(Cf) Pen] 40 mg SQ Q14D Buprenorphine HCl/Naloxone HCl [Suboxone 2 mg-0.5 mg Sl Film] 1 film SL BID Omeprazole [PriLOSEC] 20 mg PO BID Tamsulosin [Flomax] 0.4 mg PO BID Sodium Bicarbonate Tab 650 mg PO BID #60 tablet Discontinued hydrALAZINE HCL [Apresoline] 50 mg PO QID 30 Days #120 tab cefUROXime axetiL [Ceftin] 500 mg PO BID #30 tab Discharge Medication List amLODIPine [Norvasc] 10 mg PO DAILY 10/18/20 [History] Adalimumab [Humira(Cf) Pen] 40 mg SQ Q14D 08/16/22 [History] Buprenorphine HCl/Naloxone HCl [Suboxone 2 mg-0.5 mg Sl Film] 1 film SL BID 08/16/22 [History] Omeprazole [PriLOSEC] 20 mg PO BID 05/19/23 [History] Tamsulosin [Flomax] 0.4 mg PO BID 07/29/23 [History] Sodium Bicarbonate Tab 650 mg PO BID #60 tablet 08/02/23 [Rx] Darbepoetin Michael [Aranesp] 40 mcg SQ Q7D #4 each 09/07/23 [Rx] cefTRIAXone [Rocephin] 2 gm IVPB Q24HR 10 Days #10 each 09/07/23 [Rx] hydrALAZINE HCL [Apresoline] 75 mg PO TID #90 tab 09/07/23 [Rx] Follow up Appointment(s)/Referral(s): [facility], [NON-STAFF] - As Needed [facility] [NON-STAFF] - As Needed Minh Saldaña MD [Primary Care Provider] - 1 Week
[2023-09-07 10:38] LABS: HCT 25.6 % (39.6-50.0); HGB 7.9 g/dL (13.0-17.0); MCH 29.6 pg (27.0-32.0); MCHC 30.9 g/dL (32.0-37.0); MCV 95.9 FL (80.0-97.0); NRBC Per 100 WBC 0 X 10*3/uL (0.00-0.01); Platelet Count 201 X 10*3/uL (140-440); RBC 2.67 X 10*6/uL (4.40-5.60); RDW 13.5 % (11.5-14.5); WBC 5.03 X 10*3/uL (4.50-10.00)
[2023-09-07 10:56] LABS: ALT 20 U/L (10-49); AST 25 U/L (14-35); Albumin 2.7 g/dL (3.8-4.9); Albumin/Globulin Ratio 0.93 Ratio (1.60-3.17); Alkaline Phosphatase 81 U/L (41-126); BUN/Creat Ratio 13.85 Ratio (12.00-20.00); Blood Urea Nitrogen 27.7 mg/dL (9.0-27.0); Calcium 8.1 mg/dL (8.7-10.3); Carbon Dioxide 24.6 mmol/L (21.6-31.8); Chloride 103 mmol/L (96-109); Globulin 2.9 g/dL (1.6-3.3); Glucose 93 mg/dL (70-110); Potassium 5.1 mmol/L (3.5-5.5); Sodium 135 mmol/L (135-145); Total Bilirubin <0.2 mg/dL (0.3-1.2); Total Protein 5.6 g/dL (6.2-8.2)
--- NOTE | 2023-09-07 12:21 | P.PN ---
Subjective Patient is seen in follow-up for acute kidney injury. Renal function stable. Potassium 5.1. Currently on bicarb drip. Acidosis improved. Has been voiding. No vomiting or diarrhea. Oral intake is good. No active complaints. Vital signs are stable. General: No acute distress. HEENT: Head exam is unremarkable. LUNGS: No audible rhonchi or wheezes. HEART: Rate and Rhythm are regular. ABDOMEN: Nontender. EXTREMITITES: No edema. Objective - Vital Signs Vital signs: Vital Signs Temp 97.7 F 09/07/23 07:39 Pulse 57 L 09/07/23 08:00 Resp 16 09/07/23 08:00 BP 150/75 09/07/23 07:39 Pulse Ox 95 09/07/23 07:39 FiO2 Intake & Output 09/06/23 09/07/23 09/07/23 18:59 06:59 18:59 Intake Total 236 236 Output Total 475 300 Balance -239 -300 236 Intake: Oral 236 236 Output: Urine 475 300 Other: Voiding Method Toilet Toilet Toilet - Labs CBC & Chem 7: 09/07/23 07:19 09/07/23 07:19 Labs: Abnormal Lab Results - Last 24 Hours (Table) 09/07/23 09/07/23 Range/Units 07:19 07:19 RBC 2.67 L (4.40-5.60) X 10*6/uL Hgb 7.9 L (13.0-17.0) g/dL Hct 25.6 L (39.6-50.0) % MCHC 30.9 L (32.0-37.0) g/dL BUN 27.7 H (9.0-27.0) mg/dL Creatinine 2.0 H (0.6-1.5) mg/dL Est GFR (CKD-EPI) 35 L (>=60) Calcium 8.1 L (8.7-10.3) mg/dL Total Bilirubin <0.2 L (0.3-1.2) mg/dL Total Protein 5.6 L (6.2-8.2) g/dL Albumin 2.7 L (3.8-4.9) g/dL Albumin/Globulin Ratio 0.93 L (1.60-3.17) Ratio Microbiology - Last 24 Hours (Table) 09/01/23 14:16 Blood Culture - Final Blood Assessment and Plan Plan: Assessment: 1. Acute kidney injury secondary to ATN secondary to severe sepsis. No hydronephrosis noted on kidney ultrasound. Creatinine fairly stable at 2.0 today. Patient was admitted at this facility in July 2023 and creatinine at that time ranged from 1.4-2.1. Serologies were checked in August 2023 and were negative except for positive NAKUL. Creatinine as low as 0.92 dated May 05, 2023. However it seems patient's renal function has worsened and has possibly developed chronic kidney disease from obstructive uropathy. Patient had right ureteral stent placed earlier this year and was removed in May 2023. 2. Bilateral nephrolithiasis secondary to Crohn's disease. Seen by urology. No plans for intervention at this time. 3. Strep bacteremia and UTI on antibiotics. ID following. 4. Hyperkalemia secondary to acute kidney injury and metabolic acidosis. 5. Metabolic acidosis secondary to acute kidney injury and IV fluids. On bicarb drip. Also on oral bicarb. 6. Benign hypertension. 7. Anemia. Possibly from underlying chronic kidney disease. On Aranesp. Plan: Patient has been discharged. Advised him to maintain a low potassium diet. Continue to monitor renal function and urine output. Repeat BMP and magnesium level 2 to 3 days postdischarge. Script given. Advised to follow-up outpatient 1 week postdischarge.
--- NOTE | 2023-09-09 14:54 | P.PN ---
Subjective Progress Note Date: 09/07/23 Principal diagnosis: Reason for follow-up is recurrent urinary tract infection Patient is a 73-year-old male with a past medical history significant for hypertension hyperlipidemia atrial fibrillation rheumatoid arthritis kidney stone and recurrent UTI recent admission to the hospital with electrolyte abnormality and UTI urine cultures were negative, patient presented back to the hospital lower extremity swelling elevated potassium did have a positive UA probably this consultation. On today's evaluation that is 09/07/2023, Patient is afebrile patient is currently on room air and denies having any shortness of breath, the patient denies any chest pain or cough, the patient denies any nausea vomiting did not have any abdominal pain and no diarrhea, mention some improvement in urinary symptoms. Patient white count is 5.03, creatinine is 2.0 blood culture repeat has been negative Objective - Vital Signs Vital signs: Vital Signs Temp 97.7 F 09/07/23 07:39 Pulse 57 L 09/07/23 08:00 Resp 16 09/07/23 08:00 BP 150/75 09/07/23 07:39 Pulse Ox 95 09/07/23 07:39 FiO2 Intake & Output 09/06/23 09/07/23 09/07/23 18:59 06:59 18:59 Intake Total 236 236 Output Total 475 300 Balance -239 -300 236 Intake: Oral 236 236 Output: Urine 475 300 Other: Voiding Method Toilet Toilet Toilet - Exam GENERAL DESCRIPTION: An elderly male lying in bed in no distress RESPIRATORY SYSTEM: Unlabored breathing , decreased breath sounds at bases HEART: S1 S2 regular rate and rhythm , ABDOMEN: Soft , no tenderness EXTREMITIES: No edema feet - Labs CBC & Chem 7: 09/07/23 07:19 09/07/23 07:19 Labs: Abnormal Lab Results - Last 24 Hours (Table) 09/06/23 09/06/23 09/07/23 Range/Units 06:42 06:42 07:19 WBC 3.99 L (4.50-10.00) X 10*3/uL RBC 2.58 L 2.67 L (4.40-5.60) X 10*6/uL Hgb 7.8 L 7.9 L (13.0-17.0) g/dL Hct 25.3 L 25.6 L (39.6-50.0) % MCV 98.1 H (80.0-97.0) FL MCHC 30.8 L 30.9 L (32.0-37.0) g/dL MPV 12.5 H (9.5-12.2) FL Carbon Dioxide 21.2 L (21.6-31.8) mmol/L BUN 27.8 H (9.0-27.0) mg/dL Creatinine 1.8 H (0.6-1.5) mg/dL Est GFR (CKD-EPI) 39 L (>=60) Calcium (8.7-10.3) mg/dL Magnesium 1.3 L (1.5-2.4) mg/dL Total Bilirubin (0.3-1.2) mg/dL Total Protein (6.2-8.2) g/dL Albumin (3.8-4.9) g/dL Albumin/Globulin Ratio (1.60-3.17) Ratio 09/07/23 Range/Units 07:19 WBC (4.50-10.00) X 10*3/uL RBC (4.40-5.60) X 10*6/uL Hgb (13.0-17.0) g/dL Hct (39.6-50.0) % MCV (80.0-97.0) FL MCHC (32.0-37.0) g/dL MPV (9.5-12.2) FL Carbon Dioxide (21.6-31.8) mmol/L BUN 27.7 H (9.0-27.0) mg/dL Creatinine 2.0 H (0.6-1.5) mg/dL Est GFR (CKD-EPI) 35 L (>=60) Calcium 8.1 L (8.7-10.3) mg/dL Magnesium (1.5-2.4) mg/dL Total Bilirubin <0.2 L (0.3-1.2) mg/dL Total Protein 5.6 L (6.2-8.2) g/dL Albumin 2.7 L (3.8-4.9) g/dL Albumin/Globulin Ratio 0.93 L (1.60-3.17) Ratio Microbiology - Last 24 Hours (Table) 09/01/23 14:16 Blood Culture - Final Blood Assessment and Plan (1) Positive blood culture Status: Acute Code(s): R78.81 - BACTEREMIA SNOMED Code(s): 699228771 (2) Urinary tract infection Status: Acute Code(s): N39.0 - URINARY TRACT INFECTION, SITE NOT SPECIFIED SNOMED Code(s): 39156751 Plan: 1patient presented to hospital with weakness shortness of breath urinary symptoms of burning positive UA concerning for persistent/recurrent UTI and this patient did have a history of kidney stone could be related to the this episode of recurrent UTI patient did have elevated creatinine will need to rule out obstructive uropathy 2-ultrasound of the kidney and bladder area, did not show any hydronephrosis nonobstructive stone and debris's in the bladder 3-patient did have a positive blood culture with strep viridans, question of skin contamination versus pathogen blood culture has been repeated which are negative so far 4-patient has been eval by urology recommending outpatient cystoscopy apparently he did have a negative cystoscopy about 3 months ago 5-patient did have some improvement as far as he is urinary symptoms with Rocephin which should be continued for 2 weeks on discharge and close outpatient follow-up Dictation was produced using [employer] dictation software. please excuse any grammatical, word or spelling errors. Time with Patient: Less than 30
== END 2023-09-07 12:05 | disposition home or self-care (01) | DRG 689 ==
LOC: EC 10:35 → 6NMEDSUR 15:55 → 1SOBS 08-31 10:02 → 6NMEDSUR 09-01 18:15 → OBSVTOIN 09-02 08:53
PROVIDERS: ADMIT Family Medicine; ATTEND Family Medicine
PROC: 05HC33Z Insertion of Infusion Device into Left Basilic Vein, Percutaneous Approach (ICD-10-PCS; principal; 2023-09-05 10:30)
DX: N39.0 Urinary tract infection, site not specified (principal); N17.0 Acute kidney failure with tubular necrosis; F11.20 Opioid dependence, uncomplicated; K50.10 Crohn's disease of large intestine without complications; L03.115 Cellulitis of right lower limb; L03.116 Cellulitis of left lower limb; E87.20 Acidosis, unspecified; I47.10 Supraventricular tachycardia, unspecified; B95.5 Unspecified streptococcus as the cause of diseases classified elsewhere; F41.9 Anxiety disorder, unspecified; H91.90 Unspecified hearing loss, unspecified ear; I12.9 Hypertensive chronic kidney disease with stage 1 through stage 4 chronic kidney disease, or unspecified chronic kidney disease; I48.0 Paroxysmal atrial fibrillation; K21.00 Gastro-esophageal reflux disease with esophagitis, without bleeding; M06.9 Rheumatoid arthritis, unspecified; M10.9 Gout, unspecified; N18.9 Chronic kidney disease, unspecified; D63.1 Anemia in chronic kidney disease; N20.0 Calculus of kidney; E87.5 Hyperkalemia; Z86.14 Personal history of Methicillin resistant Staphylococcus aureus infection; G43.909 Migraine, unspecified, not intractable, without status migrainosus; G62.9 Polyneuropathy, unspecified; H57.9 Unspecified disorder of eye and adnexa; L40.9 Psoriasis, unspecified; Z90.3 Acquired absence of stomach [part of]; Z79.899 Other long term (current) drug therapy; Z96.652 Presence of left artificial knee joint; Z87.440 Personal history of urinary (tract) infections; Z90.49 Acquired absence of other specified parts of digestive tract; Z87.442 Personal history of urinary calculi
CPT/HCPCS: 36410; 36415; 76770; 76937; 80048; 80053; 81001; 83735; 83880; 84100; 84132; 85025; 85027; 85610; 85730; 87040; 87086; 93005; 96361; 96365; 96375; 99285

== ENCOUNTER 2023-09-09 08:33 | Emergency (ER) | payer BC, MEDICARE ==
--- NOTE | 2023-09-09 10:21 | ED ---
Recheck HPI - General Chief Complaint: Recheck/Abnormal Lab/Rx Stated Complaint: Pic line blockage Time Seen by Provider: 09/09/23 10:20 Source: patient, RN notes reviewed, old records reviewed Mode of arrival: ambulatory Limitations: no limitations - History of Present Illness Initial Comments: 73-year-old male presented to the ER with a chief complaint of midline complication. Patient states yesterday visiting home nurse was having difficulty flushing the line. Patient has midline for IV 2 g Rocephin daily for any kidney infection. He reports his last dose of antibiotics was on Tuesday. He denies any fevers, chills, chest pain, shortness of breath, and upper extremity edema. - Related Data Home Medications Medication Instructions Recorded Confirmed amLODIPine [Norvasc] 10 mg PO DAILY 10/18/20 09/09/23 Adalimumab [Humira(Cf) Pen] 40 mg SQ Q14D 08/16/22 09/09/23 Omeprazole [PriLOSEC] 20 mg PO BID 05/19/23 09/09/23 Tamsulosin [Flomax] 0.4 mg PO BID 07/29/23 09/09/23 Buprenorphine HCl/Naloxone HCl 1 film SL BID 09/09/23 09/09/23 [Suboxone 4 mg-1 mg Sl Film] cefTRIAXone [Rocephin] 2 gm IVPB DIRECTED 09/09/23 09/09/23 Previous Rx's Medication Instructions Recorded Darbepoetin Michael [Aranesp] 40 mcg SQ Q7D #4 each 09/07/23 Magnesium Oxide [Mag-Ox] 400 mg PO BID #60 tab 09/07/23 Sodium Bicarbonate Tab 650 mg PO TID #90 tab 09/07/23 hydrALAZINE HCL [Apresoline] 75 mg PO TID #90 tab 09/07/23 Allergies Allergy/AdvReac Type Severity Reaction Status Date / Time Iodinated Contrast Media Allergy Anaphylaxis Verified 09/09/23 10:40 [Iodinated Contrast Media - IV Dye] Review of Systems ROS Statement: Those systems with pertinent positive or pertinent negative responses have been documented in the HPI. ROS Other: All systems not noted in ROS Statement are negative. Past Medical History Past Medical History: Atrial Fibrillation, Blood Disorder, Eye Disorder, GERD/Reflux, GI Bleed, Hearing Disorder / Deafness, Hyperlipidemia, Hypertension, Musculoskeletal Disorder, Pneumonia, Rheumatoid Arthritis (RA), Skin Disorder, Supraventricular Tachycardia (SVT) Additional Past Medical History / Comment(s): hx CROHN'S (takes tresa), IBS, chronic diarrhea, migraines-, hx ulcers, anemia, gout, kidney stones, psoriasis, bilateral tinnitis., pinched sciatic nerve, C-Diff 2017, neuropathy, COMPLICATED UTI PYELONEPHRITIS, HEART RATE NORMALLY 50'S History of Any Multi-Drug Resistant Organisms: C-DIFF, MRSA Date of last positivie culture/infection: stool MDRO Source:: 2017 Past Surgical History: Ablation, Bowel Resection, Cardiac Ablation, Cholecystectomy, Heart Catheterization, Hernia Repair, Joint Replacement, Orthopedic Surgery, Tonsillectomy Additional Past Surgical History / Comment(s): 1/3 of stomach removed (partial gastrectomy), ulcers, bowel resections, fecal transplant 2016, bilateral knee arthroscopic surgery, EGD/colonoscopies, R inguinal hernia repair, bilat cataract removal, TOTAL LEFT KNEE. MULTIPLE CYSTOS, PICC 05/11 Past Anesthesia/Blood Transfusion Reactions: Blood Transfusion Reaction, Motion Sickness Additional Past Anesthesia/Blood Transfusion Reaction / Comment(s): BLOOD TRANSFUSION- BROKE OUT IN [facility]ES age 21 Past Psychological History: Anxiety Smoking Status: Never smoker Past Alcohol Use History: None Reported, Occasional Past Drug Use History: None Reported - Past Family History Mother Family Medical History: No Reported History, Pulmonary Embolus Additional Family Medical History / Comment(s): AGE 73-PR, STROKE DURING CARATID PROCEDURE General Exam Limitations: no limitations General appearance: alert, in no apparent distress Respiratory exam: Present: normal lung sounds bilaterally. Absent: respiratory distress, wheezes, rales, rhonchi, stridor Cardiovascular Exam: Present: regular rate, normal rhythm, normal heart sounds. Absent: systolic murmur, diastolic murmur, rubs, gallop, clicks Extremities exam: Present: normal inspection, full ROM, normal capillary refill. Absent: tenderness, pedal edema, joint swelling, calf tenderness Skin exam: Present: warm, dry, intact, normal color, other (midline left upper arm. No surrounding erythema, purulent drainage, or rash. clean dressing in place.) Course Vital Signs 09/09/23 09/09/23 09/09/23 08:34 11:07 13:02 Temperature 97.4 F L 97.8 F 97.9 F Pulse Rate 63 60 60 Respiratory 20 18 18 Rate Blood Pressure 165/64 149/77 146/67 O2 Sat by Pulse 97 99 99 Oximetry 09/09/23 13:35 Temperature 98 F Pulse Rate 61 Respiratory 18 Rate Blood Pressure 142/71 O2 Sat by Pulse 99 Oximetry Medical Decision Making - Medical Decision Making Was pt. sent in by a medical professional or institution (, HOME, [employer], urgent care, hospital, or assisted...) When possible be specific @ -No Did you speak to anyone other than the patient for history (EMS, parent, family, police, friend...)? What history was obtained from this source @ -No Did you review nursing and triage notes (agree or disagree)? Why? @ -I reviewed and agree with nursing and triage notes Were old charts reviewed (outside hosp., previous admission, EMS record, old EKG, old radiological studies, urgent care reports/EKG's, assisted records)? Report findings @ -No old charts were reviewed Differential Diagnosis (chest pain, altered mental status, abdominal pain women, abdominal pain men, vaginal bleeding, weakness, fever, dyspnea, syncope, headache, dizziness, GI bleed, back pain, seizure, CVA, palpatations, mental he alth, musculoskeletal)? @ -PICC line occlusion, cellulitis, DVT this list is not meant to be all- inclusive EKG interpreted by me (3pts min.). @ -None X-rays interpreted by me (1pt min.). @ -None done CT interpreted by me (1pt min.). @ -None done U/S interpreted by me (1pt. min.). @ -None done What testing was considered but not performed or refused? (CT, X-rays, U/S, labs)? Why? @ -None What meds were considered but not given or refused? Why? @ -None Did you discuss the management of the patient with other professionals (professionals i.e. HOME Lou, [employer]IN[employer] LOC[employer]OTIVE ENGINEER, lab, RT, psych nurse, social service assistant, egg grader, teacher, equal opportunity officer, pillowcase sewer)? Give summary @ -Yes, case discussed with scientific laboratory supervisor to replace midline. Was smoking cessation discussed for >3mins.? @ -No Was critical care preformed (if so, how long)? @ -No Were there social determinants of health that impacted care today? How? (Homelessness, low income, unemployed, alcoholism, drug addiction, transportation, low edu. Level, literacy, decrease access to med. care, care home, rehab)? @ -No Was there de-escalation of care discussed even if they declined (Discuss DNR or withdrawal of care, Hospice)? DNR status @ -No What co-morbidities impacted this encounter? (DM, HTN, Smoking, COPD, CAD, Cancer, CVA, ARF, Chemo, Hep., AIDS, mental health diagnosis, sleep apnea, morbid obesity)? @ -None Was patient admitted / discharged? Hospital course, mention meds given and route, prescriptions, significant lab abnormalities, going to OR and other pertinent info. @ -Discharged. 73 year old male presenting to the ER with a chief complaint of midline problem. History and physical exam. Vitals stable. Patient in no signs of acute distress and non toxic appearing. Midline in place left upper arm no evidence of infection including surrounding redness, warmth or purulent drainage. No LUE edema or tenderness. Left upper extremity neurovascular intact. Line attempted to be flushed with normal saline without success. I discussed with scientific laboratory supervisor to have midline replaced. Midline was replaced successfully without complications. Patient received 2 g Rocephin prior to discharge as he has not had antibiotics in multiple days. Advise close follow- up with infectious disease and PCP. Return parameters discussed. Patient discharged in stable condition. Patient verbally expressed understanding and agreement with care plan. Case discussed with ED attending, Dr. Stout. Undiagnosed new problem with uncertain prognosis? @ -No Drug Therapy requiring intensive monitoring for toxicity (Heparin, Nitro, Insulin, Cardizem)? @ -No Were any procedures done? @ -No Diagnosis/symptom? @ -Midline occlusion Acute, or Chronic, or Acute on Chronic? @ -acute Uncomplicated (without systemic symptoms) or Complicated (systemic symptoms)? @ -uncomplicated Side effects of treatment? @ -No Exacerbation, Progression, or Severe Exacerbation? @ -No Poses a threat to life or bodily function? How? (Chest pain, USA, PR, pneumonia, PE, COPD, DKA, ARF, appy, cholecystitis, CVA, Diverticulitis, Homicidal, Suicidal, threat to staff... and all critical care pts) @ -No Disposition Clinical Impression: Occluded PICC line Disposition: HOME SELF-CARE Condition: Stable Instructions (If sedation given, give patient instructions): How to Care for Your PICC (Peripherally Inserted Central Catheter) (ED), How to Flush Your PICC (Peripherally Inserted Central Catheter) (ED) Additional Instructions: Continue antibiotics as scheduled. Follow-up as scheduled. Return to the ER for any new or worsening concerns. Is patient prescribed a controlled substance at d/c from ED?: No Referrals: Minh Saldaña MD [Primary Care Provider] - 1-2 days Time of Disposition: 12:30
[2023-09-09 12:00] VITALS: RESP 18
[2023-09-09] MEDS: cefTRIAXone IN SWFI 1,000 MG/10 ML SYRINGE IVP STA (12:43)
[2023-09-09 14:00] VITALS: BP 142/71; TEMP 98
[2023-09-09 14:01] VITALS: PULSE 61
== END 2023-09-09 13:36 | disposition home or self-care (01) ==
LOC: EC 08:33
DX: T82.898A Other specified complication of vascular prosthetic devices, implants and grafts, initial encounter (principal); Z91.041 Radiographic dye allergy status
CPT/HCPCS: 36410; 76937; 99283; 96374; 96375; C1751; J1642; J0696

== ENCOUNTER 2023-10-03 20:03 | Inpatient (IN) | payer BC, MEDICARE ==
--- NOTE | 2023-10-03 20:37 | ED ---
General Adult HPI - General Source: patient, RN notes reviewed Mode of arrival: ambulatory Limitations: no limitations <Westley Davis - Last Filed: 10/03/23 20:37> - General Source: patient, RN notes reviewed, old records reviewed <Klever Stout - Last Filed: 10/04/23 03:56> - General Stated complaint: kidney faliure, sent by pcp Time Seen by Provider: 10/03/23 20:30 - History of Present Illness Initial comments: Quick note 73-year-old male presenting to the ED with complaints of abnormal labs. Currently has a PICC line he has been taking IV antibiotics for pyelonephritis. Reports he had recent labs performed and secondary to labs was advised to present to the ED for further evaluation. Otherwise, states he is asymptomatic and would not known to come in. Denies chest pain. Denies fever. Labs reviewed significant for potassium 6.7, CO2 9.5, BUN 67, creatinine 4.7. (Westely Davis) Patient is a 73-year-old male with chronic UTIs currently on IV Rocephin with a left upper extremity midline presents emergency department after abnormal labs in the outpatient setting. Has a history of chronic anemia, hypertension. States he feels fine other than the fact that he was told his kidney function and potassium might be off. Presents for further evaluation at this time. I evaluated the patient when he was placed in room. Workup started as a quick note in triage. (Klever Stout) - Related Data Home Medications Medication Instructions Recorded Confirmed amLODIPine [Norvasc] 10 mg PO DAILY 10/18/20 09/09/23 Adalimumab [Humira(Cf) Pen] 40 mg SQ Q14D 08/16/22 09/09/23 Omeprazole [PriLOSEC] 20 mg PO BID 05/19/23 09/09/23 Tamsulosin [Flomax] 0.4 mg PO BID 07/29/23 09/09/23 Buprenorphine HCl/Naloxone HCl 1 film SL BID 09/09/23 09/09/23 [Suboxone 4 mg-1 mg Sl Film] cefTRIAXone [Rocephin] 2 gm IVPB DIRECTED 09/09/23 09/09/23 Previous Rx's Medication Instructions Recorded Darbepoetin Michael [Aranesp] 40 mcg SQ Q7D #4 each 09/07/23 Magnesium Oxide [Mag-Ox] 400 mg PO BID #60 tab 09/07/23 Sodium Bicarbonate Tab 650 mg PO TID #90 tab 09/07/23 hydrALAZINE HCL [Apresoline] 75 mg PO TID #90 tab 09/07/23 Allergies Allergy/AdvReac Type Severity Reaction Status Date / Time Iodinated Contrast Media Allergy Anaphylaxis Verified 10/03/23 20:34 [Iodinated Contrast Media - IV Dye] Review of Systems ROS Other: All systems not noted in ROS Statement are negative. <Westley Davis - Last Filed: 10/03/23 20:37> ROS Other: All systems not noted in ROS Statement are negative. <Klever Stout - Last Filed: 10/04/23 03:56> ROS Statement: Those systems with pertinent positive or pertinent negative responses have been documented in the HPI. Review of Systems: CONST: Denies fever EYES: Denies blurry vision ENT: Denies nasal congestion C/V: Denies Chest pain RESP: Denies shortness of breath GI: Denies abdominal pain : Denies dysuria SKIN: Denies rash. MSK: Denies joint pain. NEURO: Denies headache (Klever Stout) Past Medical History Past Medical History: Atrial Fibrillation, Blood Disorder, Eye Disorder, GERD/Reflux, GI Bleed, Hearing Disorder / Deafness, Hyperlipidemia, Hypertension, Musculoskeletal Disorder, Pneumonia, Rheumatoid Arthritis (RA), Skin Disorder, Supraventricular Tachycardia (SVT) Additional Past Medical History / Comment(s): hx CROHN'S (takes tresa), IBS, chronic diarrhea, migraines-, hx ulcers, anemia, gout, kidney stones, psoriasis, bilateral tinnitis., pinched sciatic nerve, C-Diff 2017, neuropathy, COMPLICATED UTI PYELONEPHRITIS, HEART RATE NORMALLY 50'S History of Any Multi-Drug Resistant Organisms: C-DIFF, MRSA Date of last positivie culture/infection: stool MDRO Source:: 2017 Past Surgical History: Ablation, Bowel Resection, Cardiac Ablation, Cholecystectomy, Heart Catheterization, Hernia Repair, Joint Replacement, Orthopedic Surgery, Tonsillectomy Additional Past Surgical History / Comment(s): 1/3 of stomach removed (partial gastrectomy), ulcers, bowel resections, fecal transplant 2017, bilateral knee arthroscopic surgery, EGD/colonoscopies, R inguinal hernia repair, bilat cataract removal, TOTAL LEFT KNEE. MULTIPLE CYSTOS, PICC 05/11 Past Anesthesia/Blood Transfusion Reactions: Blood Transfusion Reaction, Motion Sickness Additional Past Anesthesia/Blood Transfusion Reaction / Comment(s): BLOOD TRANSFUSION- BROKE OUT IN [facility] age 21 Past Psychological History: Anxiety Smoking Status: Never smoker Past Alcohol Use History: None Reported, Occasional Past Drug Use History: None Reported - Past Family History Mother Family Medical History: No Reported History, Pulmonary Embolus Additional Family Medical History / Comment(s): AGE 73-[place], STROKE DURING CARATID PROCEDURE <Westley Davis - Last Filed: 10/03/23 20:37> General Exam Limitations: no limitations <Westley Davis - Last Filed: 10/03/23 20:37> <Klever Stout - Last Filed: 10/04/23 03:56> - General Exam Comments Initial Comments: Visual Physical Exam Vital signs reviewed General: Well-appearing, nontoxic, no acute distress. Head: Normocephalic, atraumatic Eyes: PERRLA, EOMI ENT: Airway patent Chest: Nonlabored breathing Skin: No visual rash, normal skin tone Neuro: Alert and oriented 3 Musculoskeletal: No gross abnormalities (Westley Davis) General: Appears in no acute distress. HEAD: Normal with no signs of head trauma. EYES: PERRLA, EOMI, conjunctiva normal, no discharge. ENT: Hearing grossly intact, normal oropharynx. RESPIRATORY: Clear breath sounds bilaterally. No wheezes, rales, or rhonchi. C/V: Regular rate and rhythm. S1 and S2 auscultated, no edema, peripheral pulses 2+ and intact throughout ABD: Abd is soft, nontender, nondistended EXT: Normal range of motion, no obvious deformity SKIN: No rashes or lesions observed on exposed skin. NEURO: Alert and oriented x 4. (Klever Stout) Course Vital Signs 10/03/23 10/03/23 10/03/23 20:31 21:27 23:50 Temperature 97.8 F Pulse Rate 54 L 52 L 57 L Respiratory 18 17 Rate Blood Pressure 160/79 176/72 O2 Sat by Pulse 98 100 Oximetry 10/04/23 10/04/23 00:01 00:39 Temperature Pulse Rate 61 70 Respiratory 18 Rate Blood Pressure 186/95 O2 Sat by Pulse 99 Oximetry Medical Decision Making <Westley Davis - Last Filed: 10/03/23 20:37> - Lab Data Result diagrams: 10/03/23 20:47 10/04/23 03:04 - EKG Data -: EKG Interpreted by Me <Klever Stout - Last Filed: 10/04/23 03:56> - Medical Decision Making Quicknote portion performed. Signed Westley Davis PA-C (Westley Davis) Was pt. sent in by a medical professional or institution (Dr. PA, [employer], urgent care, hospital, or shelter...) When possible be specific @ -Sent in by his PCP Dr. Saldaña for worsening renal function and hyperkalemia Did you speak to anyone other than the patient for history (EMS, parent, family, police, friend...)? What history was obtained from this source @ -No Did you review nursing and triage notes (agree or disagree)? Why? @ -I reviewed and agree with nursing and triage notes Were old charts reviewed (outside hosp., previous admission, EMS record, old EKG, old radiological studies, urgent care reports/EKG's, shelter records)? Report findings @ -Reviewed recent charts. Patient has worsening renal function and hyper kalemia few days ago. We will repeat labs. Differential Diagnosis (chest pain, altered mental status, abdominal pain women, abdominal pain men, vaginal bleeding, weakness, fever, dyspnea, syncope, headache, dizziness, GI bleed, back pain, seizure, CVA, palpatations, mental health, musculoskeletal)? @ -REGGIE, CKD, UTI, electrolyte abnormality. This list is not all inclusive. EKG interpreted by me (3pts min.). @ -As above X-rays interpreted by me (1pt min.). @ -None done CT interpreted by me (1pt min.). @ -None done U/S interpreted by me (1pt. min.). @ -Ultrasound revealed similar abnormal bladder wall thickening as well as mild hydronephrosis. Lobulated cyst in the right kidney which is unchanged. What testing was considered but not performed or refused? (CT, X-rays, U/S, labs)? Why? @ -None What meds were considered but not given or refused? Why? @ -None Did you discuss the management of the patient with other professionals (professionals i.e. , PA, [employer], lab, RT, psych nurse, transition social worker, design center consultant, teacher, development officer, case managers)? Give summary @ -Discussed with on-call vice president of manufacturing, Dr. Nichols who was in agreement with management and recommended continuing the hyperkalemia cocktail, getting repeat labs in 4 to 5 hours, start the patient on a bicarb drip. Patient will also receive 3 additional amps of bicarb at this time. They were in agreement this plan. Spoke with Dr. Saldaña the patient's PCP who is in agreement with plan for admission. Requested infectious disease be consulted. Was smoking cessation discussed for >3mins.? @ -No Was critical care preformed (if so, how long)? @ -Yes, 30 minutes. Were there social determinants of health that impacted care today? How? (Homelessness, low income, unemployed, alcoholism, drug addiction, transpo rtation, low edu. Level, literacy, decrease access to med. care, long term, rehab)? @ -No Was there de-escalation of care discussed even if they declined (Discuss DNR or withdrawal of care, Hospice)? DNR status @ -No What co-morbidities impacted this encounter? (DM, HTN, Smoking, COPD, CAD, Cancer, CVA, ARF, Chemo, Hep., AIDS, mental health diagnosis, sleep apnea, morbid obesity)? @ -Chronic UTI, CKD Was patient admitted / discharged? Hospital course, mention meds given and route, prescriptions, significant lab abnormalities, going to OR and other pertinent info. @ -Based on the patient's presentation and physical exam, presents emergency department complaining of abnormal laboratory studies. We will repeat these labs. He was in agreement this plan. Vital signs currently within acceptable limits. EKG shows no signs of acute ischemia or hyperkalemia changes. Patient's labs returned remarkable for chronic anemia which is stable. Patient has an REGGIE on CKD with elevated BUN of 16 creatinine 3.91. Patient is hyper kalemia K at 6.5 as well as acidotic with a carbon dioxide of 8. Urine is similar to prior UAs. Patient will be administered hyperkalemia cocktail consisting of albuterol, insulin, sodium bicarb, Lokelma. He will be started on bicarb drip at nephrology's recommendation. Repeat labs will be obtained in 4 to 5 hours at the recommendation as well. I spoke with Dr. Nichols. Bladder scan does reveal urinary tension despite the patient not really having this complaint. Bladder volume is 641. Nair catheter was placed. This could be contributive to his current symptoms, as a postrenal REGGIE. Patient admitted under Dr. Saldaña. He accepted the admission. Requested infectious disease be consulted. Undiagnosed new problem with uncertain prognosis? @ -No Drug Therapy requiring intensive monitoring for toxicity (Heparin, Nitro, Insulin, Cardizem)? @ -No Were any procedures done? @ -No Diagnosis/symptom? @ -REGGIE on CKD, hyperkalemia, urinary retention chronic UTI Acute, or Chronic, or Acute on Chronic? @ -Acute on chronic Uncomplicated (without systemic symptoms) or Complicated (systemic symptoms)? @ -Complicated Side effects of treatment? @ -No Exacerbation, Progression, or Severe Exacerbation? @ -No Poses a threat to life or bodily function? How? (Chest pain, [place], [place], pneumonia, PE, COPD, DKA, ARF, appy, cholecystitis, CVA, Diverticulitis, Homicidal, Suicidal, threat to staff... and all critical care pts) @ -Yes (Klever Stout) - Lab Data Lab Results 10/03/23 10/03/23 10/03/23 Range/Units 20:47 20:47 21:43 WBC 5.8 (3.8-10.6) k/uL RBC 2.56 L (4.30-5.90) m/uL Hgb 7.4 L (13.0-17.5) gm/dL Hct 24.9 L (39.0-53.0) % MCV 97.4 D (80.0-100.0) fL MCH 29.1 (25.0-35.0) pg MCHC 29.8 L (31.0-37.0) g/dL RDW 14.0 (11.5-15.5) % Plt Count 245 (150-450) k/uL MPV 6.9 Neutrophils % 56 % Lymphocytes % 23 % Monocytes % 8 % Eosinophils % 10 % Basophils % 1 % Neutrophils # 3.3 (1.3-7.7) k/uL Lymphocytes # 1.4 (1.0-4.8) k/uL Monocytes # 0.5 (0-1.0) k/uL Eosinophils # 0.6 (0-0.7) k/uL Basophils # 0.1 (0-0.2) k/uL Hypochromasia Marked Sodium 138 (137-145) mmol/L Potassium 6.5 H* (3.5-5.1) mmol/L Chloride 121 H (98-107) mmol/L Carbon Dioxide 8 L* (22-30) mmol/L Anion Gap 9 mmol/L BUN 60 H (9-20) mg/dL Creatinine 3.91 H (0.66-1.25) mg/dL Est GFR (CKD-EPI)AfAm 17 (>60 ml/min/1.73 sqM) Est GFR (CKD-EPI)NonAf 14 (>60 ml/min/1.73 sqM) Glucose 95 (74-99) mg/dL Calcium 7.9 L (8.4-10.2) mg/dL Total Bilirubin 0.1 L (0.2-1.3) mg/dL AST 19 (17-59) U/L ALT 18 (4-49) U/L Alkaline Phosphatase 93 (38-126) U/L Total Protein 6.1 L (6.3-8.2) g/dL Albumin 2.8 L (3.5-5.0) g/dL Urine Color Colorless Urine Appearance Turbid (Clear) Urine pH 6.0 (5.0-8.0) Ur Specific [place] 1.018 (1.001-1.035) Urine Protein 2+ H (Negative) Urine Glucose (UA) Negative (Negative) Urine Ketones Negative (Negative) Urine Blood Moderate H (Negative) Urine Nitrite Negative (Negative) Urine Bilirubin Negative (Negative) Urine Urobilinogen <2.0 (<2.0) mg/dL Ur Leukocyte Esterase Large H (Negative) Urine RBC 62 H (0-5) /hpf Urine WBC >182 H (0-5) /hpf Urine WBC Clumps Many H (None) /hpf Urine Mucus Rare H (None) /hpf - EKG Data EKG Comments: 12-lead Electrocardiogram Interpretation Note EKG was reviewed and interpreted by myself. 12-lead ECG performed at 2048 is interpreted by me as revealing sinus bradycardia at a rate of 52 beats per minute. [place] is normal. IN interval is 329 ms and prolonged, QRS durations 133 ms, QTc is 420 ms.. There were no acute ST or T wave abnormalities to suggest myocardial ischemia or injury. Patient has chronic T wave abnormalities in the lateral precordial leads which are unchanged from prior EKGs. R wave progression across the precordium was satisfactory. By my interpretation this EKG is non-diagnostic for acute ischemia. Compared with EKG from August 2023, no significant change. (Klever Stout) Critical Care Time Critical Care Time: Yes Total Critical Care Time: 30 <Klever Stout - Last Filed: 10/04/23 03:56> Disposition <Westley Davis - Last Filed: 10/03/23 20:37> Time of Disposition: 23:30 <Klever Stout - Last Filed: 10/04/23 03:56> Clinical Impression: Acute kidney injury superimposed on CKD, Hyperkalemia, Chronic UTI, Urinary retention Disposition: ADMITTED IP TO THIS HOSP Condition: Serious
[2023-10-03 21:23] LABS: Appearance,Urine Turbid (Clear); Bilirubin,Urine Negative (Negative); Blood,Urine Moderate (Negative); Color,Urine Colorless; Glucose,Urine (UA) Negative (Negative); Ketones,Urine Negative (Negative); Leukocyte Esterase,Urine Large (Negative); Mucus,Urine Rare /hpf; Nitrite,Urine Negative (Negative); Protein,Urine 2+ (Negative); RBC,Urine 62 /hpf (0-5); Specific Gravity,Urine 1.018 (1.001-1.035); Urobilinogen,Urine <2.0 mg/dL (<2.0); WBC,Urine >182 /hpf (0-5)
[2023-10-03 21:32] LABS: Basophils # (A) 0.1 k/uL (0-0.2); Basophils % (A) 1 %; Eosinophils # (A) 0.6 k/uL (0-0.7); Eosinophils % (A) 10 %; HCT 24.9 % (39.0-53.0); HGB 7.4 gm/dL (13.0-17.5); Hypochromasia Marked; Lymphocytes # (A) 1.4 k/uL (1.0-4.8); Lymphocytes % (A) 23 %; MCH 29.1 pg (25.0-35.0); MCHC 29.8 g/dL (31.0-37.0); Mean Platelet Volume 6.9; Monocytes # (A) 0.5 k/uL (0-1.0); Monocytes % (A) 8 %; Neutrophils # (A) 3.3 k/uL (1.3-7.7); Neutrophils % (A) 56 %; Platelet Count 245 k/uL (150-450); RBC 2.56 m/uL (4.30-5.90); WBC 5.8 k/uL (3.8-10.6)
[2023-10-03 21:37] LABS: MCV 97.4 fL (80.0-100.0)
[2023-10-03 23:01] LABS: ALT 18 U/L (4-49); AST 19 U/L (17-59); African American GFR (CKD) 17 (>60 ml/min/1.73 sqM); Albumin 2.8 g/dL (3.5-5.0); Alkaline Phosphatase 93 U/L (38-126); Anion Gap 9 mmol/L; Blood Urea Nitrogen 60 mg/dL (9-20); Calcium 7.9 mg/dL (8.4-10.2); Chloride 121 mmol/L (98-107); Glucose 95 mg/dL (74-99); Non-African American GFR(CKD) 14 (>60 ml/min/1.73 sqM); Sodium 138 mmol/L (137-145); Total Bilirubin 0.1 mg/dL (0.2-1.3); Total Protein 6.1 g/dL (6.3-8.2)
[2023-10-03 23:03] LABS: Carbon Dioxide 8 mmol/L (22-30); Potassium 6.5 mmol/L (3.5-5.1)
[2023-10-03] MEDS ORDERED: NALOXONE 0.4 MG/ML 1 ML VIAL IV PRN (23:29)
[2023-10-03] MEDS: INSULIN REGULAR 100 UNIT/ML VIAL (IV) IV ONE (23:38)
[2023-10-03] MEDS: DEXTROSE 50% SYRINGE 50 ML IVP ONE (23:39)
[2023-10-03] MEDS: SODIUM BICARB 8.4% 50 ML SYR (1 MEQ/ML) IV ONE (23:43)
[2023-10-03] MEDS: SODIUM BICARB 8.4% 50 ML SYR (1 MEQ/ML) IV STA ×3 (23:46→23:49)
[2023-10-03] MEDS: ALBUTEROL NEB (CONC) 2.5 MG/0.5 ML INHALATION ONE (23:48)
[2023-10-03] MEDS: CALCIUM GLUCONATE IN NACL 1 GM in SALINE 1 100ML.BAG IVPB ONE (23:53)
[2023-10-04] MEDS: MORPHINE SULFATE 4 MG/ML SYRINGE IVP STA (00:42)
[2023-10-04] MEDS: DEXTROSE 5% IN WATER 1,000 ML with SODIUM BICARB (1 MEQ/ML) 150 ML IV SCH (00:45)
[2023-10-04] MEDS: SODIUM CHLORIDE 0.9% 500 ML 500 ML IV STA (00:52)
[2023-10-04] MEDS: SODIUM ZIRCONIUM CYCLOSILICATE 10 GM PACKET PO ONE (00:54)
[2023-10-04 01:00] LABS: VBG PH 7.22 (7.31-7.41)
--- NOTE | 2023-10-04 01:15 | US ---
EXAM: US Retroperitoneal Limited, Renal CLINICAL HISTORY: Evaluate for obstructive uropathy TECHNIQUE: Real-time limited ultrasound of the retroperitoneum with image documentation. COMPARISON: Renal ultrasound 08/31/2023; CT abdomen and pelvis without contrast dated 08/20/2023 FINDINGS: Right kidney: The right kidney is hyperechoic, measuring 10.9 x 5.4 x 6.1 cm. Scattered hyperechoic foci with posterior shadowing is noted, most prominent in the inferior pole measuring up to 1 cm in size. Mild right hydronephrosis. There is a lobulated cyst involving the right kidney in the lateral midpole measuring 2.9 x 3.3 x 2.3 cm with internal thin septations. No definite solid components noted. There is a suggestion of thin calcifications along the margin. Left kidney: The left kidney is hyperechoic, stable from the previous examination, measuring 12.6 x 5.2 x 5 cm. Pelviectasis without significant calyceal dilatation noted. No stones. Bladder: Abnormal bladder wall thickening, similar to the previous examination, measuring up to 6 mm in diameter. Subtle low-level echoes noted within the bladder. No bladder stones. The ureteral jets are noted. Other findings: Subtle hyperechoic area in the hilum with posterior shadowing is noted, measuring 7 mm. IMPRESSION: 1. Abnormal bladder wall thickening, similar to the previous examination, measuring up to 6 mm in diameter. Subtle low-level echoes noted within the bladder suggesting proteinaceous components. No bladder stones. 2. Mild right hydronephrosis. Nonobstructive nephrolithiasis noted bilaterally. Left pelviectasis is a presumed incidental finding without left-sided hydronephrosis.. 3. There is a lobulated cyst involving the right kidney in the lateral midpole measuring 2.9 x 3.3 x 2.3 cm with internal thin septations. No definite solid components noted. There is a suggestion of thin calcifications along the margin. The cyst has been noted as far back as the noncontrast CT examination dated 12/24/2022.
[2023-10-04] MEDS: MORPHINE SULFATE 4 MG/ML SYRINGE IV PRN (03:19)
[2023-10-04 04:59] LABS: Basophils % (A) 0 %; Eosinophils # (A) 0.5 k/uL (0-0.7); Eosinophils % (A) 5 %; HCT 25.9 % (39.0-53.0); HGB 7.9 gm/dL (13.0-17.5); Hypochromasia Marked; Lymphocytes # (A) 1.1 k/uL (1.0-4.8); Lymphocytes % (A) 12 %; MCH 29.6 pg (25.0-35.0); MCHC 30.6 g/dL (31.0-37.0); MCV 96.9 fL (80.0-100.0); Mean Platelet Volume 8.6; Monocytes # (A) 0.9 k/uL (0-1.0); Monocytes % (A) 10 %; Neutrophils # (A) 6.5 k/uL (1.3-7.7); Neutrophils % (A) 71 %; Platelet Count 210 k/uL (150-450); RBC 2.67 m/uL (4.30-5.90); RDW 13.9 % (11.5-15.5); WBC 9.1 k/uL (3.8-10.6)
[2023-10-04 06:16] LABS: African American GFR (CKD) 19 (>60 ml/min/1.73 sqM); Anion Gap 8 mmol/L; Blood Urea Nitrogen 60 mg/dL (9-20); Calcium 7.9 mg/dL (8.4-10.2); Carbon Dioxide 14 mmol/L (22-30); Chloride 116 mmol/L (98-107); Glucose 106 mg/dL (74-99); Magnesium 1.8 mg/dL (1.6-2.3); Non-African American GFR(CKD) 16 (>60 ml/min/1.73 sqM); Potassium 4.8 mmol/L (3.5-5.1); Sodium 138 mmol/L (137-145)
--- NOTE | 2023-10-04 08:46 | P.HPIM ---
History of Present Illness H&P Date: 10/04/23 Chief Complaint: Hyperkalemia, chronic kidney disease This is a 73-year-old male who presented to the emergency department after being sent from our office regarding abnormal labs. Patient had some outpatient lab work done which showed hyperkalemia and he was sent to the emergency room for further evaluation. Patient has been dealing with a chronic UTI and has been on IV antibiotics as an outpatient. Potassium on admission was 6.7, BUN 67 and creatinine 4.7 on admission. Patient reports he has been feeling more tired at home. He reports his urine has been more of a milky consistency. Nair catheter was inserted on admission and reportedly had an 800 mL output. Infectious disease and nephrology have been consulted. Further medical history as noted below. Review of Systems Constitutional: Reports fatigue, Denies chills, Denies fever Cardiovascular: Denies chest pain, Denies dyspnea on exertion Respiratory: Denies cough, Denies dyspnea Gastrointestinal: Denies abdominal pain, Denies nausea, Denies vomiting Genitourinary: Denies dysuria Musculoskeletal: Denies arm numbness/tingling, Denies leg numbness/tingling Neurological: Denies headaches, Denies weakness Past Medical History Past Medical History: Atrial Fibrillation, Blood Disorder, Eye Disorder, GERD/Reflux, GI Bleed, Hearing Disorder / Deafness, Hyperlipidemia, Hypertension, Musculoskeletal Disorder, Pneumonia, Rheumatoid Arthritis (RA), Skin Disorder, Supraventricular Tachycardia (SVT) Additional Past Medical History / Comment(s): hx CROHN'S (takes tresa), IBS, chronic diarrhea, migraines-, hx ulcers, anemia, gout, kidney stones, psoriasis, bilateral tinnitis., pinched sciatic nerve, C-Diff 2017, neuropathy, COMPLICATED UTI PYELONEPHRITIS, HEART RATE NORMALLY 50'S History of Any Multi-Drug Resistant Organisms: C-DIFF, MRSA Date of last positivie culture/infection: stool MDRO Source:: 2017 Past Surgical History: Ablation, Bowel Resection, Cardiac Ablation, Cholecystectomy, Heart Catheterization, Hernia Repair, Joint Replacement, Orthopedic Surgery, Tonsillectomy Additional Past Surgical History / Comment(s): 04/20 of stomach removed (partial gastrectomy), ulcers, bowel resections, fecal transplant 2017, bilateral knee arthroscopic surgery, EGD/colonoscopies, R inguinal hernia repair, bilat cataract removal, TOTAL LEFT KNEE. MULTIPLE CYSTOS, PICC 05/11 Past Anesthesia/Blood Transfusion Reactions: Blood Transfusion Reaction, Motion Sickness Additional Past Anesthesia/Blood Transfusion Reaction / Comment(s): BLOOD TRANS FUSION- BROKE OUT IN HIVES age 21 Past Psychological History: Anxiety Smoking Status: Never smoker Past Alcohol Use History: None Reported, Occasional Past Drug Use History: None Reported - Past Family History Mother Family Medical History: No Reported History, Pulmonary Embolus Additional Family Medical History / Comment(s): AGE 73-[place], STROKE DURING CARATID PROCEDURE Medications and Allergies Home Medications Medication Instructions Recorded Confirmed Type amLODIPine [Norvasc] 10 mg PO DAILY 10/18/20 10/04/23 History Adalimumab [Humira(Cf) Pen] 40 mg SQ Q14D 08/16/22 10/04/23 History Omeprazole [PriLOSEC] 20 mg PO BID 05/19/23 10/04/23 History Tamsulosin [Flomax] 0.4 mg PO BID 07/29/23 10/04/23 History Darbepoetin Michael [Aranesp] 40 mcg SQ Q7D #4 each 09/07/23 10/04/23 Rx Magnesium Oxide [Mag-Ox] 400 mg PO BID #60 tab 09/07/23 10/04/23 Rx Sodium Bicarbonate Tab 650 mg PO TID #90 tab 09/07/23 10/04/23 Rx hydrALAZINE HCL [Apresoline] 75 mg PO TID #90 tab 09/07/23 10/04/23 Rx Buprenorphine HCl/Naloxone HCl 1 film SL BID 09/09/23 10/04/23 History [Suboxone 4 mg-1 mg Sl Film] cefTRIAXone [Rocephin] 2 gm IVPB DAILY 09/09/23 10/04/23 History Allergies Allergy/AdvReac Type Severity Reaction Status Date / Time Iodinated Contrast Media Allergy Anaphylaxis Verified 10/04/23 07:38 [Iodinated Contrast Media - IV Dye] Physical Exam Vitals: Vital Signs Temp Pulse Resp BP Pulse Ox 10/04/23 06:37 97.8 F 59 L 17 172/73 100 10/04/23 04:30 57 L 13 170/69 95 10/04/23 02:30 79 12 166/66 98 10/04/23 01:30 68 12 166/75 99 10/04/23 01:00 79 13 165/60 99 10/04/23 00:39 70 18 186/95 99 10/04/23 00:01 61 10/03/23 23:50 57 L 10/03/23 21:27 52 L 17 176/72 100 10/03/23 20:31 97.8 F 54 L 18 160/79 98 Intake and Output 10/03/23 10/04/23 10/04/23 22:59 06:59 14:59 Output Total 800 Balance -800 Output: Urine 800 Uretheral (Nair) 800 Other: Voiding Method Toilet Weight 63.503 kg - Constitutional General appearance: cooperative, no acute distress - EENT Eyes: PERRLA - Neck Neck: no lymphadenopathy, normal ROM, no rigidity - Respiratory Respiratory: bilateral: CTA - Cardiovascular Heart sounds: normal: S1, S2 - Gastrointestinal General gastrointestinal: soft, no tenderness - Musculoskeletal Musculoskeletal: generalized weakness - Psychiatric Psychiatric: A&O x's 3, appropriate affect, intact judgment & insight Results CBC & Chem 7: 10/04/23 03:04 10/04/23 05:30 Labs: Abnormal Lab Results - Last 24 Hours (Table) 10/03/23 10/03/23 10/03/23 Range/Units 20:47 20:47 21:43 RBC 2.56 L (4.30-5.90) m/uL Hgb 7.4 L (13.0-17.5) gm/dL Hct 24.9 L (39.0-53.0) % MCHC 29.8 L (31.0-37.0) g/dL VBG pH (7.31-7.41) VBG HCO3 (24-28) mmol/L Potassium 6.5 H* (3.5-5.1) mmol/L Chloride 121 H (98-107) mmol/L Carbon Dioxide 8 L* (22-30) mmol/L BUN 60 H (9-20) mg/dL Creatinine 3.91 H (0.66-1.25) mg/dL Glucose (74-99) mg/dL Calcium 7.9 L (8.4-10.2) mg/dL Total Bilirubin 0.1 L (0.2-1.3) mg/dL Total Protein 6.1 L (6.3-8.2) g/dL Albumin 2.8 L (3.5-5.0) g/dL Urine Protein 2+ H (Negative) Urine Blood Moderate H (Negative) Ur Leukocyte Esterase Large H (Negative) Urine RBC 62 H (0-5) /hpf Urine WBC >182 H (0-5) /hpf Urine WBC Clumps Many H (None) /hpf Urine Mucus Rare H (None) /hpf 10/04/23 10/04/23 10/04/23 Range/Units 00:08 03:04 05:30 RBC 2.67 L (4.30-5.90) m/uL Hgb 7.9 L (13.0-17.5) gm/dL Hct 25.9 L (39.0-53.0) % MCHC 30.6 L (31.0-37.0) g/dL VBG pH 7.22 L (7.31-7.41) VBG HCO3 17 L (24-28) mmol/L Potassium (3.5-5.1) mmol/L Chloride 116 H (98-107) mmol/L Carbon Dioxide 14 L (22-30) mmol/L BUN 60 H (9-20) mg/dL Creatinine 3.49 H (0.66-1.25) mg/dL Glucose 106 H (74-99) mg/dL Calcium 7.9 L (8.4-10.2) mg/dL Total Bilirubin (0.2-1.3) mg/dL Total Protein (6.3-8.2) g/dL Albumin (3.5-5.0) g/dL Urine Protein (Negative) Urine Blood (Negative) Ur Leukocyte Esterase (Negative) Urine RBC (0-5) /hpf Urine WBC (0-5) /hpf Urine WBC Clumps (None) /hpf Urine Mucus (None) /hpf Assessment and Plan (1) Acute kidney injury superimposed on CKD Current Visit: Yes Status: Acute Code(s): N17.9 - ACUTE KIDNEY FAILURE, UNSPECIFIED; N18.9 - CHRONIC KIDNEY DISEASE, UNSPECIFIED SNOMED Code(s): 60470281 (2) Chronic UTI Current Visit: Yes Status: Acute Code(s): N39.0 - URINARY TRACT INFECTION, SITE NOT SPECIFIED SNOMED Code(s): 966724205 (3) Hyperkalemia Current Visit: Yes Status: Acute Code(s): E87.5 - HYPERKALEMIA SNOMED Code(s): 67142066 (4) BPH (benign prostatic hyperplasia) Current Visit: No Status: Acute Code(s): N40.0 - BENIGN PROSTATIC HYPERPLASIA WITHOUT LOWER URINRY TRACT SYMP SNOMED Code(s): 615140461 (5) Chronic anemia Current Visit: No Status: Acute Code(s): D64.9 - ANEMIA, UNSPECIFIED SNOMED Code(s): 864036504 (6) History of atrial fibrillation Current Visit: No Status: Acute Code(s): Z86.79 - PERSONAL HISTORY OF OTHER DISEASES OF THE CIRCULATORY SYSTEM SNOMED Code(s): 186205277 (7) Hx of Crohn's disease Current Visit: No Status: Acute Code(s): Z87.19 - PERSONAL HISTORY OF OTHER DISEASES OF THE DIGESTIVE SYSTEM SNOMED Code(s): 241535992275598 (8) Hypertension Current Visit: No Status: Acute Code(s): I10 - ESSENTIAL (PRIMARY) HYPERTENSION SNOMED Code(s): 79888498 (9) Weakness Current Visit: No Status: Acute Code(s): R53.1 - WEAKNESS SNOMED Code(s): 29717958 Plan: Home medications reconciled. Check CBC and CMP in the morning. Appreciate multiple consultants. Will add Clonidine Patient seen and evaluated by nurse practitioner, physician in agreement with plan
[2023-10-04] MEDS: hydrALAZINE HCL 25 MG TAB PO SCH (09:03)
[2023-10-04] MEDS: amLODIPine 10 MG TAB PO SCH (09:03)
[2023-10-04] MEDS: PANTOPRAZOLE 40 MG TABLET PO SCH (09:08)
[2023-10-04] MEDS: TAMSULOSIN 0.4 MG CAP.ER.24H PO SCH (09:08)
[2023-10-04] MEDS: cloNIDine HCL 0.1 MG TAB PO SCH (09:08)
[2023-10-04] MEDS: NON FORMULARY DRUG (Buprenorphine Hcl/Naloxone Hcl [Suboxone 4 Mg-1 Mg Sl Film] 1 EACH Fil SUBLINGUAL SCH (09:16)
[2023-10-04] MEDS ORDERED: hydrALAZINE HCL 20 MG/ML 1 ML VIAL IVP PRN (10:32)
--- NOTE | 2023-10-04 10:33 | P.NPCON ---
History of Present Illness - Reason for Consult acute renal failure, chronic renal failure - History of Present Illness Reason for consultation: Acute kidney injury on chronic kidney disease History of present illness: Patient is a 73-year-old male seen in renal consultation for acute kidney injury on chronic kidney disease. Patient has chronic kidney disease stage IIIb with baseline creatinine 1.7-2 secondary to obstructive uropathy and multiple episodes of acute kidney injury. Creatinine on admission was 3.91 and is 3.49 today. Patient states he had blood work done outpatient and was advised to go to the hospital due to high potassium level. Potassium level was 6.5 on admission and he was also noted to be severely acidotic with a bicarb level of 8. Patient does have chronic diarrhea due to history of Crohn's disease. Hyperkalemia was medically treated and is currently maintained on bicarb drip. Potassium level is now normal and acidosis is improving. He currently has a Nair catheter and is nonoliguric. He denies use of nonsteroidals. No history of diabetes. Denies history of coronary artery disease. Patient states he was dribbling urine prior to admission. Afebrile. Blood pressure high. Patient states he had ureteral stents placed earlier this year which was subsequently removed. He has had multiple episodes of urinary tract infections since. Vital signs are stable. General: No acute distress. HEENT: Head exam is unremarkable. LUNGS: No audible rhonchi or wheezes. HEART: Rate and Rhythm are regular. ABDOMEN: Nontender. EXTREMITITES: Trace edema. Past Medical History Past Medical History: Atrial Fibrillation, Blood Disorder, Eye Disorder, GERD/Reflux, GI Bleed, Hearing Disorder / Deafness, Hyperlipidemia, Hypertensi on, Musculoskeletal Disorder, Pneumonia, Rheumatoid Arthritis (RA), Skin Disorder, Supraventricular Tachycardia (SVT) Additional Past Medical History / Comment(s): hx CROHN'S (takes tresa), IBS, chronic diarrhea, migraines-, hx ulcers, anemia, gout, kidney stones, psoriasi s, bilateral tinnitis., pinched sciatic nerve, C-Diff 2017, neuropathy, COMPLICATED UTI PYELONEPHRITIS, HEART RATE NORMALLY 50'S History of Any Multi-Drug Resistant Organisms: C-DIFF, MRSA Date of last positivie culture/infection: stool MDRO Source:: 2017 Past Surgical History: Ablation, Bowel Resection, Cardiac Ablation, Cholecystectomy, Heart Catheterization, Hernia Repair, Joint Replacement, Or thopedic Surgery, Tonsillectomy Additional Past Surgical History / Comment(s): 13 of stomach removed (partial gastrectomy), ulcers, bowel resections, fecal transplant 2016, bilateral knee arthroscopic surgery, EGD/colonoscopies, R inguinal hernia repair, bilat cataract removal, TOTAL LEFT KNEE. MULTIPLE CYSTOS, PICC 05/11 Past Anesthesia/Blood Transfusion Reactions: Blood Transfusion Reaction, Motion Sickness Additional Past Anesthesia/Blood Transfusion Reaction / Comment(s): BLOOD TRANSFUSION- BROKE OUT IN HIVES age 21 Past Psychological History: Anxiety Smoking Status: Never smoker Past Alcohol Use History: None Reported, Occasional Past Drug Use History: None Reported - Past Family History Mother Family Medical History: No Reported History, Pulmonary Embolus Additional Family Medical History / Comment(s): AGE 73-[place], STROKE DURING CARATID PROCEDURE Medications and Allergies Home Medications Medication Instructions Recorded Confirmed Type amLODIPine [Norvasc] 10 mg PO DAILY 10/18/20 10/04/23 History Adalimumab [Humira(Cf) Pen] 40 mg SQ Q14D 08/16/22 10/04/23 History Omeprazole [PriLOSEC] 20 mg PO BID 05/19/23 10/04/23 History Tamsulosin [Flomax] 0.4 mg PO BID 07/29/23 10/04/23 History Darbepoetin Michael [Aranesp] 40 mcg SQ Q7D #4 each 09/07/23 10/04/23 Rx Magnesium Oxide [Mag-Ox] 400 mg PO BID #60 tab 09/07/23 10/04/23 Rx Sodium Bicarbonate Tab 650 mg PO TID #90 tab 09/07/23 10/04/23 Rx hydrALAZINE HCL [Apresoline] 75 mg PO TID #90 tab 09/07/23 10/04/23 Rx Buprenorphine HCl/Naloxone HCl 1 film SL BID 09/09/23 10/04/23 History [Suboxone 4 mg-1 mg Sl Film] cefTRIAXone [Rocephin] 2 gm IVPB DAILY 09/09/23 10/04/23 History Allergies Allergy/AdvReac Type Severity Reaction Status Date / Time Iodinated Contrast Media Allergy Anaphylaxis Verified 10/04/23 07:38 [Iodinated Contrast Media - IV Dye] Physical Exam Vitals: Vital Signs Temp Pulse Resp BP Pulse Ox 10/04/23 09:00 62 18 185/73 99 10/04/23 06:37 97.8 F 59 L 17 172/73 100 10/04/23 04:30 57 L 13 170/69 95 10/04/23 02:30 79 12 166/66 98 10/04/23 01:30 68 12 166/75 99 10/04/23 01:00 79 13 165/60 99 10/04/23 00:39 70 18 186/95 99 10/04/23 00:01 61 10/03/23 23:50 57 L 10/03/23 21:27 52 L 17 176/72 100 10/03/23 20:31 97.8 F 54 L 18 160/79 98 Intake and Output 10/03/23 10/04/23 10/04/23 22:59 06:59 14:59 Output Total 800 700 Balance -800 -700 Output: Urine 800 700 Uretheral (Nair) 800 700 Other: Voiding Method Toilet Weight 63.503 kg Results - Lab Results Most recent lab results Calcium 7.9 mg/dL (8.4-10.2) L 10/04/23 05:30 Magnesium 1.8 mg/dL (1.6-2.3) 10/04/23 05:30 10/04/23 03:04 10/04/23 05:30 Assessment and Plan Plan: Assessment: 1. Acute kidney injury secondary to ATN secondary to severe sepsis. Creatinine 3.91 on admission and is 3.49 today. 2. Mild right hydronephrosis noted on kidney ultrasound with nonobstructive nephrolithiasis. 3. Hyperkalemia secondary to acute kidney injury and metabolic acidosis. Improved with medical management. 4. Metabolic acidosis secondary to acute kidney injury and GI losses. Improving with bicarb drip. 5. Nephrolithiasis secondary to Crohn's disease. 6. Recurrent urinary tract infections. 7. History of ureteral stents status post removal. 8. Chronic kidney disease stage IIIb with baseline creatinine 1.7-2. 9. Hypertension with chronic kidney disease. Plan: Maintain bicarb drip. Strict I's and O's. Currently has Nair catheter. Home antihypertensives resumed. Add as needed hydralazine. Follow-up cultures. ID consulted. Continue to monitor renal function and urine output. Thank you for the consultation. I will continue to follow the patient with you during his hospital stay.
--- NOTE | 2023-10-04 14:29 | P.GSCN ---
History of Present Illness Consult date: 10/04/23 Reason for Consult: Hydronephrosis History of present illness: This is a 73-year-old male with history of recurrent kidney stones he is a well- known patient to Dr. Amaya. Presented to the hospital with hyperkalemia and acute kidney injury, on presentation his creatinine was elevated at 3.9 from a baseline of 1.72. On repeat it did improve to 3.4. Of note in the ER he did have a Nair catheter placed with a return of 800 mL of urine, he did go for renal bladder ultrasound that showed evidence of mild right-sided hydronephrosis and left sided renal pelvic fullness. He did have a CT last month which showed no evidence of hydronephrosis but he did have bilateral nonobstructing stone burden. Denies any flank pain, gross hematuria. He has had multiple hospital admissions for UTIs, but of note the last 3 urine cultures from his admission have shown no growth. Urine analysis on presentation did show positive leukocyte Estrace he is been experiencing dysuria which has been ongoing for few months now. Infectious disease is on board for his recurrent UTIs Review of Systems - Constitutional Denies fever, Denies weight loss - EENT Ears, nose, mouth and throat: Denies dysphagia - Cardiovascular Denies chest pain, Denies shortness of breath - Gastrointestinal Reports as per HPI - Genitourinary Reports dysuria, Denies hematuria Past Medical History Past Medical History: Atrial Fibrillation, Blood Disorder, Eye Disorder, GERD/Reflux, GI Bleed, Hearing Disorder / Deafness, Hyperlipidemia, Hypertension, Musculoskeletal Disorder, Pneumonia, Rheumatoid Arthritis (RA), Skin Disorder, Supraventricular Tachycardia (SVT) Additional Past Medical History / Comment(s): hx CROHN'S (takes tresa), IBS, chronic diarrhea, migraines-, hx ulcers, anemia, gout, kidney stones, psoriasis, bilateral tinnitis., pinched sciatic nerve, C-Diff 2017, neuropathy, COMPLICATED UTI PYELONEPHRITIS, HEART RATE NORMALLY 50'S History of Any Multi-Drug Resistant Organisms: C-DIFF, MRSA Year Discovered:: stool MDRO Source:: 2017 Past Surgical History: Ablation, Bowel Resection, Cardiac Ablation, Cholecystectomy, Heart Catheterization, Hernia Repair, Joint Replacement, Orthopedic Surgery, Tonsillectomy Additional Past Surgical History / Comment(s): 1/3 of stomach removed (partial gastrectomy), ulcers, bowel resections, fecal transplant 2017, bilateral knee arthroscopic surgery, EGD/colonoscopies, R inguinal hernia repair, bilat cataract removal, TOTAL LEFT KNEE. MULTIPLE CYSTOS, PICC 05/11 Past Anesthesia/Blood Transfusion Reactions: Blood Transfusion Reaction, Motion Sickness Additional Past Anesthesia/Blood Transfusion Reaction / Comm: BLOOD TRANSFUSION- BROKE OUT IN [facility]ES age 21 Past Psychological History: Anxiety Smoking Status: Never smoker Past Alcohol Use History: None Reported, Occasional Past Drug Use History: None Reported - Past Family History Mother Family Medical History: No Reported History, Pulmonary Embolus Additional Family Medical History / Comment(s): AGE 73-[place], STROKE DURING CARATID PROCEDURE Medications and Allergies Home Medications Medication Instructions Recorded Confirmed Type amLODIPine [Norvasc] 10 mg PO DAILY 10/18/20 10/04/23 History Adalimumab [Humira(Cf) Pen] 40 mg SQ Q14D 08/16/22 10/04/23 History Omeprazole [PriLOSEC] 20 mg PO BID 05/19/23 10/04/23 History Tamsulosin [Flomax] 0.4 mg PO BID 07/29/23 10/04/23 History Darbepoetin Michael [Aranesp] 40 mcg SQ Q7D #4 each 09/07/23 10/04/23 Rx Magnesium Oxide [Mag-Ox] 400 mg PO BID #60 tab 09/07/23 10/04/23 Rx Sodium Bicarbonate Tab 650 mg PO TID #90 tab 09/07/23 10/04/23 Rx hydrALAZINE HCL [Apresoline] 75 mg PO TID #90 tab 09/07/23 10/04/23 Rx Buprenorphine HCl/Naloxone HCl 1 film SL BID 09/09/23 10/04/23 History [Suboxone 4 mg-1 mg Sl Film] cefTRIAXone [Rocephin] 2 gm IVPB DAILY 09/09/23 10/04/23 History Allergies Allergy/AdvReac Type Severity Reaction Status Date / Time Iodinated Contrast Media Allergy Anaphylaxis Verified 10/04/23 07:38 [Iodinated Contrast Media - IV Dye] Surgical - Exam Vital Signs Temp Pulse Resp BP Pulse Ox 97.8 F 54 L 18 160/79 98 10/03/23 20:31 10/03/23 20:31 10/03/23 20:31 10/03/23 20:31 10/03/23 20:31 - General no distress, no pain - Eyes normal ocular movement, no pale - ENT normal nares, normal mucosa - Respiratory normal expansion, normal respiratory effort - Abdomen Abdomen: soft, non tender - Psychiatric oriented to time, oriented to person, oriented to place Results - Labs 10/04/23 03:04 10/04/23 05:30 Abnormal Lab Results - Last 24 Hours (Table) 10/03/23 10/03/23 10/03/23 Range/Units 20:47 20:47 21:43 RBC 2.56 L (4.30-5.90) m/uL Hgb 7.4 L (13.0-17.5) gm/dL Hct 24.9 L (39.0-53.0) % MCHC 29.8 L (31.0-37.0) g/dL VBG pH (7.31-7.41) VBG HCO3 (24-28) mmol/L Potassium 6.5 H* (3.5-5.1) mmol/L Chloride 121 H (98-107) mmol/L Carbon Dioxide 8 L* (22-30) mmol/L BUN 60 H (9-20) mg/dL Creatinine 3.91 H (0.66-1.25) mg/dL Glucose (74-99) mg/dL Calcium 7.9 L (8.4-10.2) mg/dL Total Bilirubin 0.1 L (0.2-1.3) mg/dL Total Protein 6.1 L (6.3-8.2) g/dL Albumin 2.8 L (3.5-5.0) g/dL Urine Protein 2+ H (Negative) Urine Blood Moderate H (Negative) Ur Leukocyte Esterase Large H (Negative) Urine RBC 62 H (0-5) /hpf Urine WBC >182 H (0-5) /hpf Urine WBC Clumps Many H (None) /hpf Urine Mucus Rare H (None) /hpf 10/04/23 10/04/23 10/04/23 Range/Units 00:08 03:04 05:30 RBC 2.67 L (4.30-5.90) m/uL Hgb 7.9 L (13.0-17.5) gm/dL Hct 25.9 L (39.0-53.0) % MCHC 30.6 L (31.0-37.0) g/dL VBG pH 7.22 L (7.31-7.41) VBG HCO3 17 L (24-28) mmol/L Potassium (3.5-5.1) mmol/L Chloride 116 H (98-107) mmol/L Carbon Dioxide 14 L (22-30) mmol/L BUN 60 H (9-20) mg/dL Creatinine 3.49 H (0.66-1.25) mg/dL Glucose 106 H (74-99) mg/dL Calcium 7.9 L (8.4-10.2) mg/dL Total Bilirubin (0.2-1.3) mg/dL Total Protein (6.3-8.2) g/dL Albumin (3.5-5.0) g/dL Urine Protein (Negative) Urine Blood (Negative) Ur Leukocyte Esterase (Negative) Urine RBC (0-5) /hpf Urine WBC (0-5) /hpf Urine WBC Clumps (None) /hpf Urine Mucus (None) /hpf Diabetes panel 10/03/23 10/04/23 10/04/23 Range/Units 21:43 03:04 05:30 Sodium 138 138 (137-145) mmol/L Potassium 6.5 H* 4.8 4.8 (3.5-5.1) mmol/L Chloride 121 H 116 H (98-107) mmol/L Carbon Dioxide 8 L* 14 L (22-30) mmol/L BUN 60 H 60 H (9-20) mg/dL Creatinine 3.91 H 3.49 H (0.66-1.25) mg/dL Glucose 95 106 H (74-99) mg/dL Calcium 7.9 L 7.9 L (8.4-10.2) mg/dL AST 19 (17-59) U/L ALT 18 (4-49) U/L Alkaline Phosphatase 93 (38-126) U/L Total Protein 6.1 L (6.3-8.2) g/dL Albumin 2.8 L (3.5-5.0) g/dL Calcium panel 10/03/23 10/04/23 Range/Units 21:43 05:30 Calcium 7.9 L 7.9 L (8.4-10.2) mg/dL Albumin 2.8 L (3.5-5.0) g/dL Pituitary panel 10/03/23 10/04/23 10/04/23 Range/Units 21:43 03:04 05:30 Sodium 138 138 (137-145) mmol/L Potassium 6.5 H* 4.8 4.8 (3.5-5.1) mmol/L Chloride 121 H 116 H (98-107) mmol/L Carbon Dioxide 8 L* 14 L (22-30) mmol/L BUN 60 H 60 H (9-20) mg/dL Creatinine 3.91 H 3.49 H (0.66-1.25) mg/dL Glucose 95 106 H (74-99) mg/dL Calcium 7.9 L 7.9 L (8.4-10.2) mg/dL Adrenal panel 10/03/23 10/04/23 10/04/23 Range/Units 21:43 03:04 05:30 Sodium 138 138 (137-145) mmol/L Potassium 6.5 H* 4.8 4.8 (3.5-5.1) mmol/L Chloride 121 H 116 H (98-107) mmol/L Carbon Dioxide 8 L* 14 L (22-30) mmol/L BUN 60 H 60 H (9-20) mg/dL Creatinine 3.91 H 3.49 H (0.66-1.25) mg/dL Glucose 95 106 H (74-99) mg/dL Calcium 7.9 L 7.9 L (8.4-10.2) mg/dL Total Bilirubin 0.1 L (0.2-1.3) mg/dL AST 19 (17-59) U/L ALT 18 (4-49) U/L Alkaline Phosphatase 93 (38-126) U/L Total Protein 6.1 L (6.3-8.2) g/dL Albumin 2.8 L (3.5-5.0) g/dL Assessment and Plan Assessment: 73-year-old male admitted to the hospital with acute kidney injury, history of recurrent UTIs and recurrent kidney stones. He is a well-known patient to Dr. Amaya. Ultrasound showed evidence of mild right-sided hydronephrosis and left renal pelvic fullness. Of note he did have 800 mL of urinary retention and currently does have a Nair catheter in place. His hydronephrosis is most likely secondary to bladder distention. He did have a CT on August 20 which showed bilateral nonobstructing renal stones. -Recommend keeping the Nair catheter until acute kidney injury resolves, at that point he can have a trial of void. Do recommend continuing Flomax twice daily at this point -Continue to trend creatinine, if improves with the Nair catheter then no further intervention is needed from urology standpoint, but if creatinine continues to be persistently elevated then we will obtain a CT to rule out any obstructive stone given his history of recurrent kidney stones.
--- NOTE | 2023-10-04 22:28 | P.CONS ---
History of Present Illness - Reason for Consult Consult date: 10/04/23 Chronic UTI Requesting physician: Klever Stout - Chief Complaint Abnormal labs x 1 day - History of Present Illness Patient is a 73-year-old male with a past medical history significant for atrial fibrillation hypertension hyperlipidemia reflux Crohn's disease and history of recurrent UTI currently on IV Rocephin in the outpatient setting presenting to the hospital after the patient was noticed to have elevated potassium and creatinine on a routine lab draw patient denies having any fever or any chills has been complaining of generalized weakness and no energy patient denies having any headache or URI symptoms no chest pain shortness of breath or cough patient denies any abdominal pain or any deep pelvic pain denies any burning or frequency of urine however mention urine is cloudy did have a urinary retention requiring Nair catheter placement patient on presentation to the hospital was afebrile and no fever have been recorded subsequently patient was not tachycardic hypotensive or hypoxic he did have white count of 5.8 BNP currently has been elevated currently with a BUN of 60 creatinine 3.49 urine has been cloudy with large leukocyte esterase and WBC clumps patient did have renal ultrasound mild right hydronephrosis and cyst in the right kidney patient has been admitted to the hospital infectious he was consulted for further management of antibiotic therapy Review of Systems Positive point and negatives has been mentioned in the HPI, complete review of systems was performed and all other systems are negative Past Medical History Past Medical History: Atrial Fibrillation, Blood Disorder, Eye Disorder, GERD/Reflux, GI Bleed, Hearing Disorder / Deafness, Hyperlipidemia, Hypertension, Musculoskeletal Disorder, Pneumonia, Rheumatoid Arthritis (RA), Skin Disorder, Supraventricular Tachycardia (SVT) Additional Past Medical History / Comment(s): hx CROHN'S (takes tresa), IBS, chronic diarrhea, migraines-, hx ulcers, anemia, gout, kidney stones, psoriasis, bilateral tinnitis., pinched sciatic nerve, C-Diff 2017, neuropathy, COMPLICATED UTI PYELONEPHRITIS, HEART RATE NORMALLY 50'S History of Any Multi-Drug Resistant Organisms: C-DIFF, MRSA Year Discovered:: stool MDRO Source:: 2017 Past Surgical History: Ablation, Bowel Resection, Cardiac Ablation, Cholecystectomy, Heart Catheterization, Hernia Repair, Joint Replacement, Orthopedic Surgery, Tonsillectomy Additional Past Surgical History / Comment(s): 1/3 of stomach removed (partial gastrectomy), ulcers, bowel resections, fecal transplant 2017, bilateral knee arthroscopic surgery, EGD/colonoscopies, R inguinal hernia repair, bilat cataract removal, TOTAL LEFT KNEE. MULTIPLE CYSTOS, PICC 05/11 Past Anesthesia/Blood Transfusion Reactions: Blood Transfusion Reaction, Motion Sickness Additional Past Anesthesia/Blood Transfusion Reaction / Comm: BLOOD TRANSFUSION- BROKE OUT IN [place]ES age 21 Past Psychological History: Anxiety Smoking Status: Never smoker Past Alcohol Use History: None Reported, Occasional Past Drug Use History: None Reported - Past Family History Mother Family Medical History: No Reported History, Pulmonary Embolus Additional Family Medical History / Comment(s): AGE 73-[place], STROKE DURING CARATID PROCEDURE Medications and Allergies Home Medications Medication Instructions Recorded Confirmed Type amLODIPine [Norvasc] 10 mg PO DAILY 10/18/20 10/04/23 History Adalimumab [Humira(Cf) Pen] 40 mg SQ Q14D 08/16/22 10/04/23 History Omeprazole [PriLOSEC] 20 mg PO BID 05/19/23 10/04/23 History Tamsulosin [Flomax] 0.4 mg PO BID 07/29/23 10/04/23 History Darbepoetin Michael [Aranesp] 40 mcg SQ Q7D #4 each 09/07/23 10/04/23 Rx Magnesium Oxide [Mag-Ox] 400 mg PO BID #60 tab 09/07/23 10/04/23 Rx Sodium Bicarbonate Tab 650 mg PO TID #90 tab 09/07/23 10/04/23 Rx hydrALAZINE HCL [Apresoline] 75 mg PO TID #90 tab 09/07/23 10/04/23 Rx Buprenorphine HCl/Naloxone HCl 1 film SL BID 09/09/23 10/04/23 History [Suboxone 4 mg-1 mg Sl Film] cefTRIAXone [Rocephin] 2 gm IVPB DAILY 09/09/23 10/04/23 History Allergies Allergy/AdvReac Type Severity Reaction Status Date / Time Iodinated Contrast Media Allergy Anaphylaxis Verified 10/04/23 07:38 [Iodinated Contrast Media - IV Dye] Physical Exam Vitals: Vital Signs Temp Pulse Resp BP Pulse Ox 10/04/23 09:00 62 18 185/73 99 10/04/23 06:37 97.8 F 59 L 17 172/73 100 10/04/23 04:30 57 L 13 170/69 95 10/04/23 02:30 79 12 166/66 98 10/04/23 01:30 68 12 166/75 99 10/04/23 01:00 79 13 165/60 99 10/04/23 00:39 70 18 186/95 99 10/04/23 00:01 61 10/03/23 23:50 57 L 10/03/23 21:27 52 L 17 176/72 100 10/03/23 20:31 97.8 F 54 L 18 160/79 98 Intake and Output 10/03/23 10/04/23 10/04/23 22:59 06:59 14:59 Output Total 800 700 Balance -800 -700 Output: Urine 800 700 Uretheral (Nair) 800 700 Other: Voiding Method Toilet Weight 63.503 kg GENERAL DESCRIPTION: Elderly male lying in bed, no distress. No tachypnea or accessory muscle of respiration use. HEENT: Shows Pallor , no scleral icterus. Oral mucous membrane is dry. No pharyngeal erythema or thrush NECK: Trachea central, no thyromegaly. LUNGS: Unlabored breathing. Clear to auscultation anteriorly. No wheeze or crackle. HEART: S1, S2, regular rate and rhythm. No loud murmur ABDOMEN: Soft, no tenderness , guarding or rigidity, no organomegaly EXTREMITIES: No edema of feet. SKIN: No rash, no masses palpable. NEUROLOGICAL: The patient is awake, alert, oriented x3, mood and affect normal. Results CBC & Chem 7: 10/05/23 09:08 10/05/23 11:55 Labs: Abnormal Lab Results - Last 24 Hours (Table) 10/03/23 10/03/23 10/03/23 Range/Units 20:47 20:47 21:43 RBC 2.56 L (4.30-5.90) m/uL Hgb 7.4 L (13.0-17.5) gm/dL Hct 24.9 L (39.0-53.0) % MCHC 29.8 L (31.0-37.0) g/dL VBG pH (7.31-7.41) VBG HCO3 (24-28) mmol/L Potassium 6.5 H* (3.5-5.1) mmol/L Chloride 121 H (98-107) mmol/L Carbon Dioxide 8 L* (22-30) mmol/L BUN 60 H (9-20) mg/dL Creatinine 3.91 H (0.66-1.25) mg/dL Glucose (74-99) mg/dL Calcium 7.9 L (8.4-10.2) mg/dL Total Bilirubin 0.1 L (0.2-1.3) mg/dL Total Protein 6.1 L (6.3-8.2) g/dL Albumin 2.8 L (3.5-5.0) g/dL Urine Protein 2+ H (Negative) Urine Blood Moderate H (Negative) Ur Leukocyte Esterase Large H (Negative) Urine RBC 62 H (0-5) /hpf Urine WBC >182 H (0-5) /hpf Urine WBC Clumps Many H (None) /hpf Urine Mucus Rare H (None) /hpf 10/04/23 10/04/23 10/04/23 Range/Units 00:08 03:04 05:30 RBC 2.67 L (4.30-5.90) m/uL Hgb 7.9 L (13.0-17.5) gm/dL Hct 25.9 L (39.0-53.0) % MCHC 30.6 L (31.0-37.0) g/dL VBG pH 7.22 L (7.31-7.41) VBG HCO3 17 L (24-28) mmol/L Potassium (3.5-5.1) mmol/L Chloride 116 H (98-107) mmol/L Carbon Dioxide 14 L (22-30) mmol/L BUN 60 H (9-20) mg/dL Creatinine 3.49 H (0.66-1.25) mg/dL Glucose 106 H (74-99) mg/dL Calcium 7.9 L (8.4-10.2) mg/dL Total Bilirubin (0.2-1.3) mg/dL Total Protein (6.3-8.2) g/dL Albumin (3.5-5.0) g/dL Urine Protein (Negative) Urine Blood (Negative) Ur Leukocyte Esterase (Negative) Urine RBC (0-5) /hpf Urine WBC (0-5) /hpf Urine WBC Clumps (None) /hpf Urine Mucus (None) /hpf Assessment and Plan (1) Urinary tract infection Current Visit: No Status: Acute Code(s): N39.0 - URINARY TRACT INFECTION, SITE NOT SPECIFIED SNOMED Code(s): 75483434 Plan: 1patient presented to the hospital with abnormal kidney function in this miquel ent noticed to have elevated creatinine and potassium patient currently undergoing treatment for pyelonephritis and concern for possible prostatitis with outpatient IV Rocephin still have significantly positive urine 2-urine culture has been requested 3-patient benefit from CT of the abdominal pelvis in view of elevated creatinine elevation of the base of any prostatitis/prostatic abscess 4-we will continue patient Rocephin while waiting for the repeat culture to finalize Question concern answered We will follow on clinical condition and cultures to further adjust medication if needed Thank you for this consultation we will follow the patient along with you Dictation was produced using [employer] dictation software. please excuse any grammatical, word or spelling errors. Time with Patient: Greater than 30
--- NOTE | 2023-10-05 08:50 | P.PN ---
Subjective Principal diagnosis: Acute kidney injury with hyperkalemia. Hypertensive nephrosclerosis. Patient is 73-year-old white male with opiate dependence history and Crohn's colitis who came in with hyperkalemia and acute kidney injury with chronic UTI. Appreciate multiple consultants input. Labs this morning are still pending. He still feels quite poorly. Potassium has improved. Will check appropriate laboratories tomorrow. History of multifactorial anemia. Objective - Vital Signs Vital signs: Vital Signs Temp 98.2 F 10/05/23 08:36 Pulse 70 10/05/23 08:36 Resp 20 10/05/23 08:36 BP 178/64 10/05/23 08:36 Pulse Ox 98 10/05/23 07:28 FiO2 Intake & Output 10/04/23 10/05/23 10/05/23 18:59 06:59 18:59 Output Total 700 1700 1750 Balance -700 -1700 -1750 Weight 63.503 kg Output: Urine 700 1700 1750 Uretheral (Nair) 700 1700 875 - Constitutional General appearance: Present: thin - EENT Eyes: Absent: abnormal pupil - Neck Neck: Absent: lymphadenopathy - Respiratory Respiratory: bilateral: diminished - Cardiovascular Rhythm: regular Heart sounds: normal: S1, S2 Abnormal Heart Sounds: Absent: S3 Gallop - Gastrointestinal General gastrointestinal: Present: soft. Absent: tenderness - Integumentary Integumentary: Absent: cellulitis - Labs CBC & Chem 7: 10/04/23 03:04 10/04/23 05:30 Assessment and Plan Plan: Told the patient that these he is allowed to take his normal home Suboxone. Check CBC and CMP in a.m. Hydralazine has been added as has clonidine for blood pressure. Still quite elevated. Prognosis is guarded.
[2023-10-05 10:01] LABS: HCT 24.5 % (39.0-53.0); HGB 7.6 gm/dL (13.0-17.5); Hypochromasia Slight; MCH 29.1 pg (25.0-35.0); MCHC 31.1 g/dL (31.0-37.0); MCV 93.6 fL (80.0-100.0); Mean Platelet Volume 8.3; Platelet Count 211 k/uL (150-450); RBC 2.62 m/uL (4.30-5.90); WBC 7.7 k/uL (3.8-10.6)
--- NOTE | 2023-10-05 11:59 | P.PN ---
Subjective Patient is seen in follow-up for acute kidney injury on chronic kidney disease. Morning labs pending. Currently on bicarb drip. Denies chest pain or shortness of breath. Has Nair catheter. Nonoliguric. Vital signs are stable. General: No acute distress. HEENT: Head exam is unremarkable. LUNGS: No audible rhonchi or wheezes. HEART: Rate and Rhythm are regular. ABDOMEN: Nontender. EXTREMITITES: Trace edema. Objective - Vital Signs Vital signs: Vital Signs Temp 98.6 F 10/05/23 09:57 Pulse 53 L 10/05/23 09:57 Resp 16 10/05/23 09:57 BP 134/58 10/05/23 09:57 Pulse Ox 97 10/05/23 09:57 FiO2 Intake & Output 10/04/23 10/05/23 10/05/23 18:59 06:59 18:59 Output Total 700 1700 1750 Balance -700 -1700 -1750 Weight 63.503 kg Output: Urine 700 1700 1750 Uretheral (Nair) 700 1700 875 - Labs CBC & Chem 7: 10/05/23 09:08 10/04/23 05:30 Labs: Abnormal Lab Results - Last 24 Hours (Table) 10/05/23 Range/Units 09:08 RBC 2.62 L (4.30-5.90) m/uL Hgb 7.6 L (13.0-17.5) gm/dL Hct 24.5 L (39.0-53.0) % Assessment and Plan Plan: Assessment: 1. Acute kidney injury secondary to ATN secondary to severe sepsis. Also component of urinary retention. Creatinine 3.91 on admission -3.49 yesterday. 2. Mild right hydronephrosis noted on kidney ultrasound with nonobstructive nephrolithiasis. Urology following. On Flomax. 3. Hyperkalemia secondary to acute kidney injury and metabolic acidosis. Improved with medical management. 4. Metabolic acidosis secondary to acute kidney injury and GI losses. Improving with bicarb drip. 5. Nephrolithiasis secondary to Crohn's disease. 6. Recurrent urinary tract infections. On antibiotics. 7. History of ureteral stents status post removal. 8. Chronic kidney disease stage IIIb with baseline creatinine 1.7-2. Etiology is obstructive uropathy. 9. Hypertension with chronic kidney disease. Now better controlled. Plan: Maintain bicarb drip. Strict I's and O's. Currently has Nair catheter. Follow-up cultures. Continue to monitor renal function and urine output.
[2023-10-05 12:45] LABS: ALT 15 U/L (4-49); AST 24 U/L (17-59); African American GFR (CKD) 28 (>60 ml/min/1.73 sqM); Albumin 2.2 g/dL (3.5-5.0); Alkaline Phosphatase 74 U/L (38-126); Anion Gap 4 mmol/L; Blood Urea Nitrogen 43 mg/dL (9-20); Calcium 7.3 mg/dL (8.4-10.2); Carbon Dioxide 23 mmol/L (22-30); Chloride 104 mmol/L (98-107); Glucose 133 mg/dL (74-99); Magnesium 1.4 mg/dL (1.6-2.3); Non-African American GFR(CKD) 24 (>60 ml/min/1.73 sqM); Potassium 4.8 mmol/L (3.5-5.1); Sodium 131 mmol/L (137-145); Total Bilirubin 0.2 mg/dL (0.2-1.3)
--- NOTE | 2023-10-05 12:49 | P.PN ---
Subjective Progress Note Date: 10/05/23 Principal diagnosis: Reason for follow-up is urinary tract infection Patient is a 73-year-old male with a past medical history significant for atrial fibrillation hypertension hyperlipidemia reflux Crohn's disease and history of recurrent UTI currently on IV Rocephin in the outpatient setting presenting to the hospital with worsening of kidney function also noticed to have a positive UA concerning for persistent UTI. On today's evaluation that is 10/04/2023, Patient is afebrile patient is currently on room air, has been complaining of mostly feeling weak however denies having any shortness of breath, the patient denies any chest pain or cough, the patient denies any nausea vomiting did not have any abdominal pain and no diarrhea did have a Nair catheter with minimal sediment. Patient white count is 7.7, creatinine is 2.52 cultures are pending Objective - Vital Signs Vital signs: Vital Signs Temp 98.6 F 10/05/23 09:57 Pulse 53 L 10/05/23 09:57 Resp 16 10/05/23 09:57 BP 134/58 10/05/23 09:57 Pulse Ox 97 10/05/23 09:57 FiO2 Intake & Output 10/04/23 10/05/23 10/05/23 18:59 06:59 18:59 Output Total 700 1700 1750 Balance -700 -1700 -1750 Weight 63.503 kg Output: Urine 700 1700 1750 Uretheral (Nair) 700 1700 875 - Exam GENERAL DESCRIPTION: An elderly male lying in bed in no distress RESPIRATORY SYSTEM: Unlabored breathing , decreased breath sounds at bases HEART: S1 S2 regular rate and rhythm , ABDOMEN: Soft , no tenderness EXTREMITIES: No edema feet - Labs CBC & Chem 7: 10/05/23 09:08 10/05/23 11:55 Labs: Abnormal Lab Results - Last 24 Hours (Table) 10/05/23 10/05/23 Range/Units 09:08 11:55 RBC 2.62 L (4.30-5.90) m/uL Hgb 7.6 L (13.0-17.5) gm/dL Hct 24.5 L (39.0-53.0) % Sodium 131 L (137-145) mmol/L BUN 43 H (9-20) mg/dL Creatinine 2.52 H (0.66-1.25) mg/dL Glucose 133 H (74-99) mg/dL Calcium 7.3 L (8.4-10.2) mg/dL Magnesium 1.4 L (1.6-2.3) mg/dL Total Protein 5.0 L (6.3-8.2) g/dL Albumin 2.2 L (3.5-5.0) g/dL Assessment and Plan (1) Urinary tract infection Current Visit: No Status: Acute Code(s): N39.0 - URINARY TRACT INFECTION, SITE NOT SPECIFIED SNOMED Code(s): 33597484 Plan: 1patient presented to the hospital with abnormal kidney function in this pat ient noticed to have elevated creatinine and potassium patient currently undergoing treatment for pyelonephritis and concern for possible prostatitis with outpatient IV Rocephin still have significantly positive urine 2-urine culture has been requested which are currently pending 3-patient to continue with Rocephin while waiting for the repeat culture to finalize Dictation was produced using [employer] dictation software. please excuse any grammatical, word or spelling errors. Time with Patient: Less than 30
--- NOTE | 2023-10-05 13:39 | CDI ---
Documentation Clarification Form Date: 10/05/2023 From: Margarita Garcia Phone: [phone] Admit Date: 10/03/2023 11:31:00 PM Patient Name: Silvano Rajan Visit Number: [id number] Discharge Date: ATTENTION: The Clinical Documentation Specialists (CDI) and [facility] Coding Staff appreciate your assistance in clarifying documentation. Please respond to the clarification below the line at the bottom and electronically sign. The CDI & [facility] Coding staff will review the response and follow-up if needed. Please note: Queries are made part of the Legal Health Record. If you have any questions, please contact the author of this message via ITS. Dr. Minh Saldaña: Severe sepsis is documented in the Nephrology consultation 10/03 and progress note 10/04 but is not noted in subsequent documentation. As attending physician, additional clarification is requested. History/Risk Factors: 73-year-old male with a history of AFib, HTN, PNA, RA, CKD who presents with abnormal lab work Clinical Indicators: 10/02 Triage VS: 160/79, 97.8, 54, 18, 98% room air 10/02-10/04 Tmax: 98.6 on 10/04 10/03 Nephrology consult, Assessment and Plan: "1.Acute kidney injury secondary to ATN secondary to severe sepsis." 10/02-10/04 WBC: 5.8, 9.1, 7.7 10/02 Urinalysis: Appearance: Turbid, Protein: 2+, Blood: Moderate, Leukocyte Esterase: Large, RBC: 62, WBC: > 182, Mucus: Rare Treatment: Ceftriaxone 2gram IV [id number] start 10/03 Please clarify if the severe sepsis is: [ ] Severe sepsis confirmed, remains under treatment [ ] Severe sepsis confirmed, resolved [ x ] Severe sepsis ruled out [ ] Other condition, please specify [ ] Unable to determine SIRS Criteria: 2 or more of the following may indicate SIRS Temperature < 96.8F (36C) or > 101.0F (38.3C) Heart Rate > 90 bpm Respiratory Rate > 20 breaths/min or PaCO2 < 32 mmHg White Blood Cell Count > 12,000 or < 4,000 cells/mm3 or > 10% bands MTDD
[2023-10-05] MEDS: MAGNESIUM SULFATE-D5W PMX 1 GM in DEXTROSE/WATER 1 100ML.BAG IVPB SCH (15:34)
[2023-10-05] MEDS: KETOROLAC 15 MG/ML 1 ML VIAL IVP STA (15:44)
[2023-10-05] MEDS: SODIUM CHLORIDE 0.9% 1,000 ML IV SCH (16:43)
[2023-10-05] MEDS: SODIUM BICARBONATE TAB 650 MG TAB PO SCH (20:50)
[2023-10-06] MEDS: ONDANSETRON 4 MG/2 ML VIAL IVP PRN (03:49)
--- NOTE | 2023-10-06 08:29 | P.PN ---
Subjective Principal diagnosis: Acute kidney injury with hyperkalemia. Hypertensive nephrosclerosis. Patient is 73-year-old white male with opiate dependence history and Crohn's colitis who came in with hyperkalemia and acute kidney injury with chronic UTI. Appreciate multiple consultants input. Labs this morning are still pending. He still feels quite poorly. Potassium has improved. Will check appropriate laboratories tomorrow. History of multifactorial anemia. Magnesium is low he is not on protocol. Renal function is improving. Objective - Vital Signs Vital signs: Vital Signs Temp 97.9 F 10/06/23 04:00 Pulse 62 10/06/23 04:00 Resp 18 10/06/23 04:00 BP 168/70 10/06/23 04:00 Pulse Ox 91 L 10/06/23 04:00 FiO2 Intake & Output 10/05/23 10/06/23 10/06/23 18:59 06:59 18:59 Intake Total 480 118 Output Total 2150 1000 Balance -1670 -1000 118 Weight 63.503 kg 69.2 kg Intake: Oral 480 118 Output: Urine 2150 1000 Uretheral (Nair) 875 Other: Voiding Method Indwelling Catheter Indwelling Catheter - Constitutional General appearance: Present: average body habitus, cooperative, no acute distress - EENT Eyes: Absent: abnormal pupil - Neck Neck: Absent: lymphadenopathy - Respiratory Respiratory: bilateral: diminished - Cardiovascular Rhythm: regular Heart sounds: normal: S1, S2 Abnormal Heart Sounds: Absent: S3 Gallop - Gastrointestinal General gastrointestinal: Present: soft. Absent: tenderness - Psychiatric Psychiatric: Present: A&O x's 3 - Labs CBC & Chem 7: 10/05/23 09:08 10/05/23 11:55 Labs: Abnormal Lab Results - Last 24 Hours (Table) 10/05/23 10/05/23 Range/Units 09:08 11:55 RBC 2.62 L (4.30-5.90) m/uL Hgb 7.6 L (13.0-17.5) gm/dL Hct 24.5 L (39.0-53.0) % Sodium 131 L (137-145) mmol/L BUN 43 H (9-20) mg/dL Creatinine 2.52 H (0.66-1.25) mg/dL Glucose 133 H (74-99) mg/dL Calcium 7.3 L (8.4-10.2) mg/dL Magnesium 1.4 L (1.6-2.3) mg/dL Total Protein 5.0 L (6.3-8.2) g/dL Albumin 2.2 L (3.5-5.0) g/dL Microbiology - Last 24 Hours (Table) 10/03/23 20:47 Urine Culture - Final Urine,Catheterized Assessment and Plan (1) Acute kidney injury superimposed on CKD Current Visit: Yes Status: Acute Code(s): N17.9 - ACUTE KIDNEY FAILURE, UNSPECIFIED; N18.9 - CHRONIC KIDNEY DISEASE, UNSPECIFIED SNOMED Code(s): 98163657 (2) Chronic UTI Current Visit: Yes Status: Acute Code(s): N39.0 - URINARY TRACT INFECTION, SITE NOT SPECIFIED SNOMED Code(s): 156940804 (3) Atrial fibrillation Current Visit: No Status: Acute Code(s): I48.91 - UNSPECIFIED ATRIAL FIBRILLATION SNOMED Code(s): 81442198 (4) Chronic anemia Current Visit: No Status: Acute Code(s): D64.9 - ANEMIA, UNSPECIFIED SNOMED Code(s): 267057371 (5) Crohns disease Current Visit: No Status: Acute Code(s): K50.90 - CROHN'S DISEASE, UNSPECIFIED, WITHOUT COMPLICATIONS SNOMED Code(s): 55145578 (6) GERD (gastroesophageal reflux disease) Current Visit: No Status: Acute Code(s): K21.9 - GASTRO-ESOPHAGEAL REFLUX DISEASE WITHOUT ESOPHAGITIS SNOMED Code(s): 776891709 (7) History of Clostridium difficile colitis Current Visit: No Status: Acute Code(s): Z86.19 - PERSONAL HISTORY OF OTHER INFECTIOUS AND PARASITIC DISEASES SNOMED Code(s): 147773876 Plan: Told the patient that these he is allowed to take his normal home Suboxone. Check CBC and CMP in a.m. Hydralazine has been added as has clonidine for blood pressure. Having better readings Prognosis is guarded.
[2023-10-06 09:00] LABS: HCT 23.5 % (39.0-53.0); HGB 7.1 gm/dL (13.0-17.5); Hypochromasia Moderate; MCH 29.1 pg (25.0-35.0); MCHC 30.4 g/dL (31.0-37.0); MCV 95.7 fL (80.0-100.0); Mean Platelet Volume 7.4; Platelet Count 220 k/uL (150-450); RBC 2.46 m/uL (4.30-5.90); RDW 13.8 % (11.5-15.5)
[2023-10-06 09:22] LABS: ALT 15 U/L (4-49); AST 21 U/L (17-59); African American GFR (CKD) 28 (>60 ml/min/1.73 sqM); Albumin 2.2 g/dL (3.5-5.0); Alkaline Phosphatase 82 U/L (38-126); Anion Gap 4 mmol/L; Blood Urea Nitrogen 40 mg/dL (9-20); Calcium 7.2 mg/dL (8.4-10.2); Carbon Dioxide 21 mmol/L (22-30); Chloride 105 mmol/L (98-107); Glucose 181 mg/dL (74-99); Non-African American GFR(CKD) 24 (>60 ml/min/1.73 sqM); Potassium 5.1 mmol/L (3.5-5.1); Sodium 130 mmol/L (137-145); Total Bilirubin 0.1 mg/dL (0.2-1.3); Total Protein 5.1 g/dL (6.3-8.2)
--- NOTE | 2023-10-06 10:47 | P.PN ---
Subjective Patient is seen in follow-up for acute kidney injury on chronic kidney disease. Renal function improved from admission. On IV fluids. Denies chest pain or shortness of breath. Has Nair catheter. Nonoliguric. Vital signs are stable. General: No acute distress. HEENT: Head exam is unremarkable. LUNGS: No audible rhonchi or wheezes. HEART: Rate and Rhythm are regular. ABDOMEN: Nontender. EXTREMITITES: Trace edema. Objective - Vital Signs Vital signs: Vital Signs Temp 98.3 F 10/06/23 09:06 Pulse 55 L 10/06/23 09:06 Resp 16 10/06/23 09:06 BP 131/68 10/06/23 09:31 Pulse Ox 94 L 10/06/23 09:06 FiO2 Intake & Output 10/05/23 10/06/23 10/06/23 18:59 06:59 18:59 Intake Total 480 118 Output Total 2150 1000 Balance -1670 -1000 118 Weight 63.503 kg 69.2 kg Intake: Oral 480 118 Output: Urine 2150 1000 Uretheral (Nair) 875 Other: Voiding Method Indwelling Catheter Indwelling Catheter - Labs CBC & Chem 7: 10/06/23 08:21 10/06/23 08:21 Labs: Abnormal Lab Results - Last 24 Hours (Table) 10/05/23 10/06/23 10/06/23 Range/Units 11:55 08:21 08:21 RBC 2.46 L (4.30-5.90) m/uL Hgb 7.1 L (13.0-17.5) gm/dL Hct 23.5 L (39.0-53.0) % MCHC 30.4 L (31.0-37.0) g/dL Sodium 131 L 130 L (137-145) mmol/L Carbon Dioxide 21 L (22-30) mmol/L BUN 43 H 40 H (9-20) mg/dL Creatinine 2.52 H 2.53 H (0.66-1.25) mg/dL Glucose 133 H 181 H (74-99) mg/dL Calcium 7.3 L 7.2 L (8.4-10.2) mg/dL Magnesium 1.4 L (1.6-2.3) mg/dL Total Bilirubin 0.1 L (0.2-1.3) mg/dL Total Protein 5.0 L 5.1 L (6.3-8.2) g/dL Albumin 2.2 L 2.2 L (3.5-5.0) g/dL Microbiology - Last 24 Hours (Table) 10/03/23 20:47 Urine Culture - Final Urine,Catheterized Assessment and Plan Plan: Assessment: 1. Acute kidney injury secondary to ATN secondary to severe sepsis. Also component of urinary retention. Creatinine 3.91 on admission - stable at 2.53 today. 2. Mild right hydronephrosis noted on kidney ultrasound with nonobstructive nephrolithiasis. Urology following. On Flomax. 3. Hyperkalemia secondary to acute kidney injury and metabolic acidosis. Improved with medical management. 4. Metabolic acidosis secondary to acute kidney injury and GI losses. Status post bicarb drip. On oral bicarb. 5. Nephrolithiasis secondary to Crohn's disease. 6. Recurrent urinary tract infections. On antibiotics. 7. History of ureteral stents status post removal. 8. Chronic kidney disease stage IIIb with baseline creatinine 1.7-2. Etiology is obstructive uropathy. 9. Hypertension with chronic kidney disease. Controlled. Plan: Maintain normal saline. Encouraged oral intake. Continue to monitor renal function and urine output. Increase dose of oral bicarb. Avoid nephrotoxins.
[2023-10-06 13:40] VITALS: BMI 19.5
[2023-10-06] MEDS: SODIUM BICARBONATE TAB 650 MG TAB PO SCH (21:57)
--- NOTE | 2023-10-07 08:38 | P.PN ---
Subjective Principal diagnosis: Acute kidney injury with hyperkalemia. Hypertensive nephrosclerosis. Patient is 73-year-old white male with opiate dependence history and Crohn's colitis who came in with hyperkalemia and acute kidney injury with chronic UTI. Appreciate multiple consultants input. He still feels quite poorly. Potassium has improved. Will check appropriate laboratories tomorrow. History of multifactorial anemia. Magnesium is low he is not on protocol. Renal function is improving. Sinus bradycardia but hypertension is also noted. Objective - Vital Signs Vital signs: Vital Signs Temp 98 F 10/07/23 04:00 Pulse 50 L 10/07/23 04:00 Resp 14 10/07/23 04:00 BP 96/50 10/07/23 04:00 Pulse Ox 94 L 10/07/23 04:00 FiO2 Intake & Output 10/06/23 10/07/23 10/07/23 18:59 06:59 18:59 Intake Total 358 Output Total 2400 Balance 358 -2400 Weight 69.2 kg Intake: Oral 358 Output: Urine 2400 Other: Voiding Method Indwelling Catheter Indwelling Catheter - Constitutional General appearance: Present: average body habitus, thin - EENT Eyes: Absent: abnormal pupil - Neck Neck: Absent: lymphadenopathy - Respiratory Respiratory: bilateral: diminished - Cardiovascular Heart rate: 50 Rhythm: regular Heart sounds: normal: S1, S2 Abnormal Heart Sounds: Absent: S3 Gallop, S4 Gallop - Gastrointestinal General gastrointestinal: Present: soft. Absent: tenderness - Integumentary Integumentary: Present: normal - Labs CBC & Chem 7: 10/06/23 08:21 10/06/23 08:21 Labs: Abnormal Lab Results - Last 24 Hours (Table) 10/06/23 10/06/23 Range/Units 08:21 08:21 RBC 2.46 L (4.30-5.90) m/uL Hgb 7.1 L (13.0-17.5) gm/dL Hct 23.5 L (39.0-53.0) % MCHC 30.4 L (31.0-37.0) g/dL Sodium 130 L (137-145) mmol/L Carbon Dioxide 21 L (22-30) mmol/L BUN 40 H (9-20) mg/dL Creatinine 2.53 H (0.66-1.25) mg/dL Glucose 181 H (74-99) mg/dL Calcium 7.2 L (8.4-10.2) mg/dL Total Bilirubin 0.1 L (0.2-1.3) mg/dL Total Protein 5.1 L (6.3-8.2) g/dL Albumin 2.2 L (3.5-5.0) g/dL Assessment and Plan (1) Acute kidney injury superimposed on CKD Current Visit: Yes Status: Acute Code(s): N17.9 - ACUTE KIDNEY FAILURE, UNSPECIFIED; N18.9 - CHRONIC KIDNEY DISEASE, UNSPECIFIED SNOMED Code(s): 61604032 (2) Chronic UTI Current Visit: Yes Status: Acute Code(s): N39.0 - URINARY TRACT INFECTION, SITE NOT SPECIFIED SNOMED Code(s): 238304666 (3) Atrial fibrillation Current Visit: No Status: Acute Code(s): I48.91 - UNSPECIFIED ATRIAL FIBRILLATION SNOMED Code(s): 66351946 (4) Chronic anemia Current Visit: No Status: Acute Code(s): D64.9 - ANEMIA, UNSPECIFIED SNOMED Code(s): 022213436 (5) Crohns disease Current Visit: No Status: Acute Code(s): K50.90 - CROHN'S DISEASE, UNSPECIFIED, WITHOUT COMPLICATIONS SNOMED Code(s): 36250100 (6) GERD (gastroesophageal reflux disease) Current Visit: No Status: Acute Code(s): K21.9 - GASTRO-ESOPHAGEAL REFLUX DISEASE WITHOUT ESOPHAGITIS SNOMED Code(s): 838536769 (7) History of Clostridium difficile colitis Current Visit: No Status: Acute Code(s): Z86.19 - PERSONAL HISTORY OF OTHER INFECTIOUS AND PARASITIC DISEASES SNOMED Code(s): 877118221 Plan: Told the patient that these he is allowed to take his normal home Suboxone Will go ahead and DC clonidine for now. Blood pressure has been hypotensive. Check CBC and CMP in a.m. Chronic UTI with continue ceftriaxone. Appreciate multiple consultants input.
--- NOTE | 2023-10-07 09:49 | P.CRDCN ---
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 Patient is currently on IV antibiotics through PICC line for pyelonephritis as an outpatient. We have been asked to evaluate the patient for first-degree heart block, symptomatic bradycardia, and sinus pauses. Patient is not on beta-vonda or any AV justin blocking agents at home. Patient was seen by cardiology during hospitalization in August at which time consult was for ruling out ST elevation. Patient was to follow-up with Dr. Murray at that time. However, patient has not had a follow-up appointment in the office. Patient presented to the hospital on 10/03/2023 due to abnormal labs. Patient is followed by nephrology, urology, and infectious disease. Patient gives history that he has had 3 hospitalizations for basically the same thing with kidney stones, infected kidney stone, urinary tract infection and pyelonephritis. He denies having any history of coronary artery disease and no history of CHF. He has never been told he had atrial fibrillation. He denies having any chest pain and no shortness of breath. No palpitations or pounding in his chest. He states his lower extremity edema on and off. Regarding Crohn's disease. He denies any recent bleeding. He denies any caffeine intake and no alcohol use. No abdominal pain. Regarding chronic kidney disease, patient states he has been diagnosed about 6 to 7 months ago. No history of diabetes. No smoking history. Blood pressure 96/50, heart rate 50, pulse ox 94% on room air. Patient was on clonidine which is subsequently been discontinued. EKG: Performed on 10/03 revealed sinus bradycardia with a first-degree AV block, IVCD. On telemetry, heart rate has been consistently in the 40s-50s. Laboratory studies: WBC 9, hemoglobin 7.1. Initial potassium 6.5 now 5.1. Initial CO2 8 now 21. Initial BUN 60 repeat 40. Creatinine 3.91 and repeat 2.53. Magnesium 1.4. Home cardiac medications: Amlodipine 10 mg daily, hydralazine 75 mg 3 times daily, magnesium oxide 400 mg twice daily, also on Humira. Echocardiogram performed 08/18/2022 revealed left ventricular systolic function borderline normal at 50 to 55%. Mild mitral and tricuspid regurgitation with no evidence of pulmonary hypertension. Mild to moderate aortic regurgitation with calcified aortic valve. Review Of Systems: At the time of my exam: CONSTITUTIONAL: Denies fever or chills. HEENT: Denies blurred vision, vision changes, or eye pain. Denies hemoptysis CARDIOVASCULAR: Denies chest pain. Denies orthopnea. Denies PND. Denies palpitations RESPIRATORY: Denies shortness of breath. GASTROINTESTINAL: Denies abdominal pain. Denies nausea or vomiting. HEMATOLOGIC: Denies bleeding disorders. GENITOURINARY: Denies any blood in urine. SKIN: Denies puritis. Denies rash. Physical examination: Gen: This is a 73-year-old male in no acute distress VS: reviewed HEENT: Head is atraumatic, normocephalic. Pupils equal, round. Sclerae is anicteric. NECK: Supple. No JVD. LUNGS: Clear to auscultation. No wheezes or rhonchi. No intercostal retractions. HEART: Regular rate and rhythm. Systolic ejection, holosystolic murmur murmur. ABDOMEN: Soft No tenderness. EXTREMITIES: No pedal edema. No calf tenderness. NEUROLOGICAL: Patient is awake, alert and oriented x3. Assessment: Sinus bradycardia possibly worsened by clonidine Acute kidney injury Mild right hydronephrosis followed by urology Severe hyperkalemia secondary to acute kidney injury Metabolic acidosis secondary to acute kidney injury Nephrolithiasis Crohn's disease Recurrent urinary tract infections, pyelonephritis and possible prostatitis followed by infectious disease Anemia of chronic disease History of SVT with previous ablation, 20 years ago per patient Hypertension Plan: Continue patient's home cardiac medications Clonidine has been discontinued Avoid AV justin blocking agents Obtain 2-D echocardiogram and Doppler study to assess cardiac structure and function Further recommendations to follow based upon clinical course Thank you kindly for this consultation. Nurse practitioner note has been reviewed, I agree with documented findings and plan of care. Patient was seen and examined. Past Medical History Past Medical History: Atrial Fibrillation, Blood Disorder, Eye Disorder, GERD/Reflux, GI Bleed, Hearing Disorder / Deafness, Hyperlipidemia, Hypertension, Musculoskeletal Disorder, Pneumonia, Rheumatoid Arthritis (RA), Skin Disorder, Supraventricular Tachycardia (SVT) Additional Past Medical History / Comment(s): hx CROHN'S (takes tresa), IBS, chronic diarrhea, migraines-, hx ulcers, anemia, gout, kidney stones, psoriasis, bilateral tinnitis., pinched sciatic nerve, C-Diff 2017, neuropathy, COMPLICATED UTI PYELONEPHRITIS, HEART RATE NORMALLY 50'S History of Any Multi-Drug Resistant Organisms: C-DIFF, MRSA Date of last positivie culture/infection: stool MDRO Source:: 2017 Past Surgical History: Ablation, Bowel Resection, Cardiac Ablation, Cholecystectomy, Heart Catheterization, Hernia Repair, Joint Replacement, Orthopedic Surgery, Tonsillectomy Additional Past Surgical History / Comment(s): 13 of stomach removed (partial gastrectomy), ulcers, bowel resections, fecal transplant 2016, bilateral knee arthroscopic surgery, EGD/colonoscopies, R inguinal hernia repair, bilat cataract removal, TOTAL LEFT KNEE. MULTIPLE CYSTOS, PICC 05/11 Past Anesthesia/Blood Transfusion Reactions: Blood Transfusion Reaction, Motion Sickness Additional Past Anesthesia/Blood Transfusion Reaction / Comment(s): BLOOD TRANSFUSION- BROKE OUT IN HIVES age 21 Past Psychological History: Anxiety Smoking Status: Never smoker Past Alcohol Use History: None Reported, Occasional Past Drug Use History: None Reported - Past Family History Mother Family Medical History: No Reported History, Pulmonary Embolus Additional Family Medical History / Comment(s): AGE 73-[place], STROKE DURING CARATID PROCEDURE Medications and Allergies Home Medications Medication Instructions Recorded Confirmed Type amLODIPine [Norvasc] 10 mg PO DAILY 10/18/20 10/04/23 History Adalimumab [Humira(Cf) Pen] 40 mg SQ Q14D 08/16/22 10/04/23 History Omeprazole [PriLOSEC] 20 mg PO BID 05/19/23 10/04/23 History Tamsulosin [Flomax] 0.4 mg PO BID 07/29/23 10/04/23 History Darbepoetin Michael [Aranesp] 40 mcg SQ Q7D #4 each 09/07/23 10/04/23 Rx Magnesium Oxide [Mag-Ox] 400 mg PO BID #60 tab 09/07/23 10/04/23 Rx Sodium Bicarbonate Tab 650 mg PO TID #90 tab 09/07/23 10/04/23 Rx hydrALAZINE HCL [Apresoline] 75 mg PO TID #90 tab 09/07/23 10/04/23 Rx Buprenorphine HCl/Naloxone HCl 1 film SL BID 09/09/23 10/04/23 History [Suboxone 4 mg-1 mg Sl Film] cefTRIAXone [Rocephin] 2 gm IVPB DAILY 09/09/23 10/04/23 History Allergies Allergy/AdvReac Type Severity Reaction Status Date / Time Iodinated Contrast Media Allergy Anaphylaxis Verified 10/04/23 07:38 [Iodinated Contrast Media - IV Dye] Physical Exam Vitals: Vital Signs Temp Pulse Resp BP Pulse Ox 10/07/23 04:00 98 F 50 L 14 96/50 94 L 10/07/23 02:00 54 L 16 10/07/23 00:00 98.3 F 54 L 16 114/54 94 L 10/06/23 20:00 98.1 F 52 L 16 132/71 96 10/06/23 17:14 98.0 F 50 L 18 127/58 96 10/06/23 14:00 47 L 10/06/23 12:32 98.2 F 47 L 18 146/69 96 10/06/23 09:31 131/68 10/06/23 09:06 98.3 F 55 L 16 120/51 94 L Intake and Output 10/06/23 10/07/23 10/07/23 22:59 06:59 14:59 Output Total 1500 900 Balance -1500 -900 Output: Urine 1500 900 Other: Voiding Method Indwelling Catheter Indwelling Catheter Results 10/06/23 08:21 10/06/23 08:21 Cardiac Enzymes 10/06/23 Range/Units 08:21 AST 21 (17-59) U/L CBC 10/06/23 Range/Units 08:21 WBC 9.0 (3.8-10.6) k/uL RBC 2.46 L (4.30-5.90) m/uL Hgb 7.1 L (13.0-17.5) gm/dL Hct 23.5 L (39.0-53.0) % Plt Count 220 (150-450) k/uL Comprehensive Metabolic Panel 10/06/23 Range/Units 08:21 Sodium 130 L (137-145) mmol/L Potassium 5.1 (3.5-5.1) mmol/L Chloride 105 (98-107) mmol/L Carbon Dioxide 21 L (22-30) mmol/L BUN 40 H (9-20) mg/dL Creatinine 2.53 H (0.66-1.25) mg/dL Glucose 181 H (74-99) mg/dL Calcium 7.2 L (8.4-10.2) mg/dL AST 21 (17-59) U/L ALT 15 (4-49) U/L Alkaline Phosphatase 82 (38-126) U/L Total Protein 5.1 L (6.3-8.2) g/dL Albumin 2.2 L (3.5-5.0) g/dL Current Medications Generic Name Dose Route Start Last Admin Trade Name Freq PRN Reason Stop Dose Admin Amlodipine Besylate 10 mg 10/04/23 09:00 10/06/23 10:46 Amlodipine 10 Mg Tab PO 10 mg DAILY GABE Administration Clonidine 0.1 mg 10/04/23 09:00 10/06/23 21:57 Clonidine Hcl 0.1 Mg Tab PO 0.1 mg BID GABE Administration Hydralazine HCl 75 mg 10/04/23 09:00 10/06/23 21:57 Hydralazine Hcl 25 Mg Tab PO 75 mg TID GABE Administration Hydralazine HCl 10 mg 10/04/23 10:32 Hydralazine Hcl 20 Mg/Ml 1 Ml Vial IVP Q6HR PRN Blood Pressure - High Ceftriaxone Sodium 2 gm/ 50 mls @ 100 mls/hr 10/04/23 22:30 10/06/23 21:57 Sodium Chloride IVPB 100 mls/hr Q24H GABE Administration Protocol Sodium Chloride 1,000 mls @ 75 mls/hr 10/05/23 15:45 10/07/23 04:52 Saline 0.9% IV 75 mls/hr .[id number] GABE Administration Naloxone HCl 0.2 mg 10/03/23 23:29 Naloxone 0.4 Mg/Ml 1 Ml Vial IV Q2M PRN Opioid Reversal Non-Formulary Medication 1 film 10/04/23 09:00 10/06/23 21:57 Buprenorphine Hcl/Naloxone Hcl [Suboxone 4 Mg-1 Mg Sl Film] SUBLINGUAL 1 film BID GABE Administration Ondansetron HCl 4 mg 10/03/23 23:29 10/06/23 12:34 Ondansetron 4 Mg/2 Ml Vial IVP 4 mg Q8HR PRN Administration Nausea And Vomiting Pantoprazole Sodium 40 mg 10/04/23 09:00 10/07/23 06:49 Pantoprazole 40 Mg Tablet PO 40 mg [id number] GABE Administration Sodium Bicarbonate 1,300 mg 10/06/23 21:00 10/06/23 21:57 Sodium Bicarbonate Tab 650 Mg Tab PO 1,300 mg BID GABE Administration Tamsulosin HCl 0.4 mg 10/04/23 09:00 10/06/23 21:57 Tamsulosin 0.4 Mg Cap.Er.24h PO 0.4 mg BID GABE Administration Intake and Output 10/06/23 10/07/23 10/07/23 22:59 06:59 14:59 Output Total 1500 900 Balance -1500 -900 Output: Urine 1500 900 Other: Voiding Method Indwelling Catheter Indwelling Catheter 10/06/23 08:21 10/06/23 08:21
[2023-10-07 09:50] LABS: ALT 13 U/L (4-49); AST 17 U/L (17-59); African American GFR (CKD) 23 (>60 ml/min/1.73 sqM); Albumin 2.1 g/dL (3.5-5.0); Alkaline Phosphatase 77 U/L (38-126); Anion Gap 4 mmol/L; Blood Urea Nitrogen 45 mg/dL (9-20); Calcium 7.4 mg/dL (8.4-10.2); Carbon Dioxide 21 mmol/L (22-30); Chloride 106 mmol/L (98-107); Glucose 122 mg/dL (74-99); Magnesium 1.8 mg/dL (1.6-2.3); Non-African American GFR(CKD) 20 (>60 ml/min/1.73 sqM); Potassium 4.8 mmol/L (3.5-5.1); Sodium 131 mmol/L (137-145); Total Bilirubin <0.1 mg/dL (0.2-1.3)
[2023-10-07 10:15] LABS: HCT 22.6 % (39.0-53.0); Hypochromasia Slight; MCH 28.1 pg (25.0-35.0); MCHC 29.8 g/dL (31.0-37.0); MCV 94.6 fL (80.0-100.0); Mean Platelet Volume 9.8; Platelet Count 188 k/uL (150-450); RBC 2.39 m/uL (4.30-5.90); RDW 13.6 % (11.5-15.5); WBC 5.6 k/uL (3.8-10.6)
[2023-10-07 10:16] LABS: HGB 6.7 gm/dL (13.0-17.5)
--- NOTE | 2023-10-07 11:32 | P.PN ---
Subjective Patient is seen in follow-up for acute kidney injury on chronic kidney disease. Renal function worse today. Hemoglobin 6.7. Denies any active bleeding. On IV fluids. Denies chest pain or shortness of breath. Has Nari catheter. Nonoliguric. Vital signs are stable. General: No acute distress. HEENT: Head exam is unremarkable. LUNGS: No audible rhonchi or wheezes. HEART: Rate and Rhythm are regular. ABDOMEN: Nontender. EXTREMITITES: Trace edema. Objective - Vital Signs Vital signs: Vital Signs Temp 98.0 F 10/07/23 08:57 Pulse 50 L 10/07/23 08:57 Resp 16 10/07/23 08:57 BP 144/66 10/07/23 08:57 Pulse Ox 94 L 10/07/23 08:57 FiO2 Intake & Output 10/06/23 10/07/23 10/07/23 18:59 06:59 18:59 Intake Total 358 118 Output Total 2400 800 Balance 358 2400 -682 Weight 69.2 kg Intake: Oral 358 118 Output: Urine 2400 800 Other: Voiding Method Indwelling Catheter Indwelling Catheter Indwelling Catheter - Labs CBC & Chem 7: 10/07/23 08:06 10/07/23 08:06 Labs: Abnormal Lab Results - Last 24 Hours (Table) 10/07/23 10/07/23 Range/Units 08:06 08:06 RBC 2.39 L (4.30-5.90) m/uL Hgb 6.7 L* (13.0-17.5) gm/dL Hct 22.6 L (39.0-53.0) % MCHC 29.8 L (31.0-37.0) g/dL Sodium 131 L (137-145) mmol/L Carbon Dioxide 21 L (22-30) mmol/L BUN 45 H (9-20) mg/dL Creatinine 2.94 H (0.66-1.25) mg/dL Glucose 122 H (74-99) mg/dL Calcium 7.4 L (8.4-10.2) mg/dL Total Bilirubin <0.1 L (0.2-1.3) mg/dL Total Protein 5.0 L (6.3-8.2) g/dL Albumin 2.1 L (3.5-5.0) g/dL Assessment and Plan Plan: Assessment: 1. Acute kidney injury secondary to ATN secondary to severe sepsis. Also component of urinary retention. Creatinine 3.91 on admission -2.94 today. Renal function worse today compared to yesterday due to acute blood loss anemia. 2. Mild right hydronephrosis noted on kidney ultrasound with nonobstructive nephrolithiasis. Urology following. On Flomax. 3. Hyperkalemia secondary to acute kidney injury and metabolic acidosis. Improved with medical management. 4. Metabolic acidosis secondary to acute kidney injury and GI losses. Status post bicarb drip. On oral bicarb. 5. Nephrolithiasis secondary to Crohn's disease. 6. Recurrent urinary tract infections. On antibiotics. 7. History of ureteral stents status post removal. 8. Chronic kidney disease stage IIIb with baseline creatinine 1.7-2. Etiology is obstructive uropathy. 9. Hypertension with chronic kidney disease. Controlled. 10. Acute blood loss anemia with hemoglobin 6.7 today. Plan: Maintain normal saline. Encouraged oral intake. Continue to monitor renal function and urine output. Avoid nephrotoxins. Scheduled to receive a unit of blood today. IV DDAVP x 1 dose today. Add Aranesp.
[2023-10-07] MEDS: DESMOPRESSIN ACETATE 20 MCG in SODIUM CHLORIDE 0.9% 50 ML IVPB ONE (12:56)
[2023-10-07] MEDS: DARBEPOETIN ALFA 40 MCG/0.4 ML SYRINGE SQ SCH (15:03)
[2023-10-07] MEDS: diphenhydrAMINE 50 MG/ML 1 ML VIAL IVP ONE (15:03)
--- NOTE | 2023-10-07 17:04 | P.PN ---
Subjective Progress Note Date: 10/06/23 Principal diagnosis: Reason for follow-up is urinary tract infection Patient is a 73-year-old male with a past medical history significant for atrial fibrillation hypertension hyperlipidemia reflux Crohn's disease and history of recurrent UTI currently on IV Rocephin in the outpatient setting presenting to the hospital with worsening of kidney function also noticed to have a positive UA concerning for persistent UTI. On today's evaluation that is 10/06/2023, Patient is afebrile this morning and denies any chills, patient mention breathing comfortably and is currently on room air, patient denies any chest pain occasional cough patient denies any abdominal pain no diarrhea no nausea no vomiting has been complaining of feeling mostly tired and weak Patient white count is 9.0, creatinine is 2.53 Objective - Vital Signs Vital signs: Vital Signs Temp 98.3 F 10/06/23 09:06 Pulse 55 L 10/06/23 09:06 Resp 16 10/06/23 09:06 BP 131/68 10/06/23 09:31 Pulse Ox 94 L 10/06/23 09:06 FiO2 Intake & Output 10/05/23 10/06/23 10/06/23 18:59 06:59 18:59 Intake Total 480 118 Output Total 2150 1000 Balance -1670 -1000 118 Weight 63.503 kg 69.2 kg Intake: Oral 480 118 Output: Urine 2150 1000 Uretheral (Nair) 875 Other: Voiding Method Indwelling Catheter Indwelling Catheter - Exam GENERAL DESCRIPTION: An elderly male lying in bed in no distress RESPIRATORY SYSTEM: Unlabored breathing , decreased breath sounds at bases HEART: S1 S2 regular rate and rhythm , ABDOMEN: Soft , no tenderness EXTREMITIES: No edema feet - Labs CBC & Chem 7: 10/07/23 08:06 10/07/23 08:06 Labs: Abnormal Lab Results - Last 24 Hours (Table) 10/05/23 10/06/23 10/06/23 Range/Units 11:55 08:21 08:21 RBC 2.46 L (4.30-5.90) m/uL Hgb 7.1 L (13.0-17.5) gm/dL Hct 23.5 L (39.0-53.0) % MCHC 30.4 L (31.0-37.0) g/dL Sodium 131 L 130 L (137-145) mmol/L Carbon Dioxide 21 L (22-30) mmol/L BUN 43 H 40 H (9-20) mg/dL Creatinine 2.52 H 2.53 H (0.66-1.25) mg/dL Glucose 133 H 181 H (74-99) mg/dL Calcium 7.3 L 7.2 L (8.4-10.2) mg/dL Magnesium 1.4 L (1.6-2.3) mg/dL Total Bilirubin 0.1 L (0.2-1.3) mg/dL Total Protein 5.0 L 5.1 L (6.3-8.2) g/dL Albumin 2.2 L 2.2 L (3.5-5.0) g/dL Microbiology - Last 24 Hours (Table) 10/03/23 20:47 Urine Culture - Final Urine,Catheterized Assessment and Plan (1) Urinary tract infection Current Visit: No Status: Acute Code(s): N39.0 - URINARY TRACT INFECTION, SITE NOT SPECIFIED SNOMED Code(s): 63403486 Plan: 1patient presented to the hospital with abnormal kidney function in this patient noticed to have elevated creatinine and potassium patient currently undergoing treatment for pyelonephritis and concern for possible prostatitis with outpatient IV Rocephin still have significantly positive urine 2-urine culture has been negative so far 3-patient to continue with Rocephin will discuss further with urology for further workup with a cystoscopy versus CT abdominal pelvis Dictation was produced using [employer] dictation software. please excuse any grammatical, word or spelling errors. Time with Patient: Less than 30
--- NOTE | 2023-10-07 17:05 | P.PN ---
Subjective Progress Note Date: 10/07/23 Principal diagnosis: Reason for follow-up is urinary tract infection Patient is a 73-year-old male with a past medical history significant for atrial fibrillation hypertension hyperlipidemia reflux Crohn's disease and history of recurrent UTI currently on IV Rocephin in the outpatient setting presenting to the hospital with worsening of kidney function also noticed to have a positive UA concerning for persistent UTI. On today's evaluation that is 10/07/2023,the patient denies any fever or any chills, patient is breathing comfortably on room air, the patient denies chest pain shortness of breath and no significant cough, patient denies abdominal pain, no nausea vomiting or diarrhea. Still have a Nair catheter with some sediment Patient white count is 5.6 hemoglobin is 6.7 creatinine is 2.94 urine culture negative Objective - Vital Signs Vital signs: Vital Signs Temp 97.7 F 10/07/23 15:32 Pulse 49 L 10/07/23 15:32 Resp 15 10/07/23 15:32 BP 165/82 10/07/23 15:32 Pulse Ox 95 10/07/23 15:32 FiO2 Intake & Output 10/06/23 10/07/23 10/07/23 18:59 06:59 18:59 Intake Total 358 598 Output Total 2400 800 Balance 358 2400 Weight 69.2 kg Intake: Oral 358 598 Blood Product 0 Unit 0 Output: Urine 2400 800 Other: Voiding Method Indwelling Catheter Indwelling Catheter Indwelling Catheter - Exam GENERAL DESCRIPTION: An elderly male lying in bed in no distress RESPIRATORY SYSTEM: Unlabored breathing , decreased breath sounds at bases HEART: S1 S2 regular rate and rhythm , ABDOMEN: Soft , no tenderness EXTREMITIES: No edema feet - Labs CBC & Chem 7: 10/07/23 08:06 10/07/23 08:06 Labs: Abnormal Lab Results - Last 24 Hours (Table) 10/07/23 10/07/23 10/07/23 Range/Units 08:06 08:06 11:46 RBC 2.39 L (4.30-5.90) m/uL Hgb 6.7 L* (13.0-17.5) gm/dL Hct 22.6 L (39.0-53.0) % MCHC 29.8 L (31.0-37.0) g/dL Sodium 131 L (137-145) mmol/L Carbon Dioxide 21 L (22-30) mmol/L BUN 45 H (9-20) mg/dL Creatinine 2.94 H (0.66-1.25) mg/dL Glucose 122 H (74-99) mg/dL Calcium 7.4 L (8.4-10.2) mg/dL Total Bilirubin <0.1 L (0.2-1.3) mg/dL Total Protein 5.0 L (6.3-8.2) g/dL Albumin 2.1 L (3.5-5.0) g/dL Crossmatch See Detail Assessment and Plan (1) Urinary tract infection Current Visit: No Status: Acute Code(s): N39.0 - URINARY TRACT INFECTION, SITE NOT SPECIFIED SNOMED Code(s): 61234683 Plan: 1patient presented to the hospital with abnormal kidney function in this patient noticed to have elevated creatinine and potassium patient currently undergoing treatment for pyelonephritis and concern for possible prostatitis with outpatient IV Rocephin still have significantly positive urine 2-urine culture has been negative so far 3-patient care has been discussed with the urology as the patient recently did have a cystoscopy in May not recommending a repeat cystoscopy keeping in mind his history of extremity bowel disease and a question of possible colovesical fistula we will obtain a CT of abdominal pelvis with oral contrast only because of his elevated creatinine for now continue with Rocephin Dictation was produced using [employer] dictation software. please excuse any grammatical, word or spelling errors. Time with Patient: Less than 30
--- NOTE | 2023-10-07 18:44 | CA ---
Transthoracic Echo Report Name: Silvano Rajan Age: 73 Gender: M : 1950 Exam Date: 10/07/2023 14:32 Exam Location: [facility] Ht (in): 74 Wt (lb): 152 Ordering Physician: Serina James Attending/Referring Phys: [id number], Erika Financial Investment Manager Bonita Schumacher, JENNIFER Procedure CPT: Indications: LVF Cardiac Hx: Technical Quality: Good Contrast 1: Total Dose (mL): Contrast 2: Total Dose (mL): MEASUREMENTS (Male / Female) Normal Values 2D ECHO LV Diastolic Diameter PLAX 5.5 cm 4.2 - 5.9 / 3.9 - 5.3 cm LV Systolic Diameter PLAX 3.5 cm IVS Diastolic Thickness 1.3 cm 0.6 - 1.0 / 0.6 - 0.9 cm LVPW Diastolic Thickness 1.3 cm 0.6 - 1.0 / 0.6 - 0.9 cm LV Relative Wall Thickness 0.5 RV Internal Dim ED PLAX 3.0 cm LA Systolic Diameter LX 5.5 cm 3.0 - 4.0 / 2.7 - 3.8 cm LV Diastolic Volume MOD BP 137.7 cm??? 67 - 155 / 56 - 104 cm??? LV Systolic Volume MOD BP 48.1 cm??? - 58 / 19 - 49 cm??? LV Ejection Fraction MOD BP 65.1 % >= 55 % LV Cardiac Index MOD BP 2804.7 cm???/min???m??? LV Diastolic Volume MOD 4C 150.9 cm??? LV Systolic Volume MOD 4C 48.9 cm??? LV Ejection Fraction MOD 4C 67.6 % LV Cardiac Index MOD 4C 3194.2 cm???/min???m??? LV Diastolic Length 4C 9.5 cm LV Systolic Length 4C 7.6 cm LV Diastolic Volume MOD 2C 113.9 cm??? LV Systolic Volume MOD 2C 48.3 cm??? LV Ejection Fraction MOD 2C 57.6 % LV Cardiac Index MOD 2C 2054.2 cm???/min???m??? LV Diastolic Length 2C 8.5 cm LV Systolic Length 2C 7.7 cm LA Volume 114.6 cm??? 18 - 58 / 22 - 52 cm??? LA Volume Index 60.8 cm???/m??? 16 - 28 cm???/m??? M-MODE Aortic Root Diameter MM 3.5 cm LA Systolic Diameter MM 4.9 cm LA Ao Ratio MM 1.4 AV Cusp Separation MM 1.5 cm DOPPLER AV Peak Velocity 275.7 cm/s AV Peak Gradient 30.4 mmHg AV Mean Velocity 182.5 cm/s AV Mean Gradient 15.5 mmHg AV Velocity Time Integral 68.6 cm AI Peak Velocity 424.1 cm/s AI Peak Gradient 72.0 mmHg AI Pressure Half Time 538.2 ms LVOT Peak Velocity 197.7 cm/s LVOT Peak Gradient 15.6 mmHg LVOT Velocity Time Integral 47.8 cm MV Area PHT 2.9 cm??? Mitral E Point Velocity 103.1 cm/s Mitral A Point Velocity 78.3 cm/s Mitral E to A Ratio 1.3 MV Deceleration Time 257.5 ms TR Peak Velocity 289.8 cm/s TR Peak Gradient 33.6 mmHg FINDINGS Left Ventricle Left ventricular ejection fraction is estimated at 55-60 %. Mildly increased septal wall thickness. No obvious regional wall motion abnormalities. Left ventricular cavity size normal. Right Ventricle Normal right ventricular size and function. Right ventricular systolic pressure within normal limits. Right Atrium Moderate right atrial dilatation. Left Atrium Severely increased left atrial diameter. Severely increased left atrial volume. Moderately increased left atrial area. Mitral Valve Structurally normal mitral valve. Mild mitral regurgitation. Aortic Valve Mild aortic stenosis with a peak gradient of 30 mmHg and a mean gradient of 15 mmHg. Moderate aortic regurgitation. Thickened aortic valve. Tricuspid Valve Structurally normal tricuspid valve. Mild tricuspid regurgitation. Pulmonic Valve Structurally normal pulmonic valve. Trace pulmonic regurgitation. No pulmonic stenosis. Pericardium No pericardial or pleural effusion. Aorta Normal size aortic root and proximal ascending aorta. CONCLUSIONS Normal LV systolic function and RV systolic function Aortic sclerosis with mild aortic stenosis and moderate aortic insufficiency Previewed by: Dr. Lizandro Murray MD (Electronically Signed) Final Date: 07 October 2023 18:44
[2023-10-07] MEDS: BARIUM SULFATE 2% - 450 ML ORAL.SUSP BOTTLE PO PRN (22:05)
[2023-10-08 08:54] LABS: HCT 23.2 % (39.0-53.0); HGB 7.3 gm/dL (13.0-17.5); Hypochromasia Moderate; MCH 29.5 pg (25.0-35.0); MCHC 31.4 g/dL (31.0-37.0); MCV 94.1 fL (80.0-100.0); Mean Platelet Volume 9.4; Platelet Count 177 k/uL (150-450); RBC 2.47 m/uL (4.30-5.90); RDW 14.3 % (11.5-15.5); WBC 6.5 k/uL (3.8-10.6)
[2023-10-08 09:25] LABS: ALT 13 U/L (4-49); AST 20 U/L (17-59); African American GFR (CKD) 26 (>60 ml/min/1.73 sqM); Albumin 2.3 g/dL (3.5-5.0); Alkaline Phosphatase 88 U/L (38-126); Anion Gap 5 mmol/L; Blood Urea Nitrogen 47 mg/dL (9-20); Calcium 7.9 mg/dL (8.4-10.2); Carbon Dioxide 19 mmol/L (22-30); Chloride 110 mmol/L (98-107); Glucose 84 mg/dL (74-99); Non-African American GFR(CKD) 22 (>60 ml/min/1.73 sqM); Potassium 4.9 mmol/L (3.5-5.1); Sodium 134 mmol/L (137-145); Total Bilirubin 0.2 mg/dL (0.2-1.3); Total Protein 5.3 g/dL (6.3-8.2)
--- NOTE | 2023-10-08 09:57 | CT ---
EXAMINATION TYPE: CT abdomen pelvis wo con DATE OF EXAM: 10/08/2023 COMPARISON: 08/20/2023 INDICATION: Recurrent UTIs, ? Fistula DLP: 512.30 mGycm, Automated exposure control for dose reduction was used. CONTRAST: 0 mL of Isovue 300. Study performed without Oral Contrast TECHNIQUE: Axial images were obtained from above the diaphragm to the pubic rami in the axial plane a t 5 mm thick sections. Reconstructed images are reviewed on the computer in the coronal plane. FINDINGS: Limited CT sections are obtained the lung bases. Small bilateral pleural effusions are present. [place] cent compressive atelectasis is present.. Minimal pericardial effusion may be present. CT ABDOMEN: Liver: Normal Spleen: Normal Pancreas: Normal Adrenal glands: The adrenal glands are normal. Gallbladder: Surgically absent Kidneys: No masses are evident. Multiple bilateral nonobstructing renal stones are present. The large st at the upper pole left kidney measures 0.4 cm. Largest at the inferior pole right kidney measures 0.3 cm. No hydronephrosis is present. There is some mild prominence of the proximal ureters. Ureters are lost on visualization of the pelvis. No distal obstructing renal stones are identified. Urinary bladder is decompressed Nair catheter. Wall thickening cannot be excluded. There is a cyst on the ri ght kidney measuring 2.7 cm and the left. Aorta: Vascular calcification is within the aorta. Inferior vena cava: Normal. CT PELVIS: Loops of bowel within the abdomen and pelvis are normal. Oral contrast within the colon. Majority lo ops of bowel lack oral contrast limiting their evaluation. No obvious fistula to the urinary bladde r is identified. However, exam is suboptimal for diagnosing this on this exam. Appendix: Not identified. No dilated tubular structure or inflammatory change is evident. Urinary bladder: Decompressed with Nair catheter. Wall thickening cannot be excluded. No obvious fis henrietta formation is identified. However, on this exam is suboptimal for accurate evaluation of the fist nina finding. Genitourinary structures: The prostate appears unremarkable Osseous structures: No suspicious lytic or sclerotic lesions. IMPRESSION: 1. Bilateral pleural effusions. Adjacent compressive atelectasis especially at the left base likely present. 2. Bilateral nonobstructing renal stones. 3. There is some mild prominence of the proximal ureters. Distal ureters are not identified although no obstructing distal ureteral stones are evident. 4. No discrete abnormality to suggest colovesical fistula. Examination however is limited for this di agnosis.
--- NOTE | 2023-10-08 12:14 | P.PN ---
Subjective patient is seen for follow-up for acute kidney injury. renal function is improving. Serum creatinine down to 2.7 mg/dL. urine output at 2.5 L. No significant complaints today. Objective - Vital Signs Vital signs: Vital Signs Temp 98.2 F 10/08/23 08:00 Pulse 52 L 10/08/23 08:00 Resp 18 10/08/23 08:00 BP 160/55 10/08/23 08:00 Pulse Ox 93 L 10/08/23 08:00 FiO2 Intake & Output 10/07/23 10/08/23 10/08/23 18:59 06:59 18:59 Intake Total 1001 Output Total 1700 800 Balance -699 -800 Intake: Oral 716 Blood Product 285 Rc Pheresis As-3 Unit 285 [id number] Output: Urine 1700 800 Other: Voiding Method Indwelling Catheter Indwelling Catheter Indwelling Catheter # Bowel Movements 1 - Exam on examination patient is comfortable awake no acute distress. Examination of the heart S1 and S2 Examination of the lungs bilateral breath sounds are heard Abdomen is soft nontender Examination of lower extremities shows trace edema. PIPEMAN exam grossly intact - Labs CBC & Chem 7: 10/08/23 07:19 10/08/23 07:19 Labs: Abnormal Lab Results - Last 24 Hours (Table) 10/07/23 10/08/23 10/08/23 Range/Units 11:46 07:19 07:19 RBC 2.47 L (4.30-5.90) m/uL Hgb 7.3 L (13.0-17.5) gm/dL Hct 23.2 L (39.0-53.0) % Sodium 134 L (137-145) mmol/L Chloride 110 H (98-107) mmol/L Carbon Dioxide 19 L (22-30) mmol/L BUN 47 H (9-20) mg/dL Creatinine 2.71 H (0.66-1.25) mg/dL Calcium 7.9 L (8.4-10.2) mg/dL Total Protein 5.3 L (6.3-8.2) g/dL Albumin 2.3 L (3.5-5.0) g/dL Crossmatch See Detail Assessment and Plan Assessment: 1. Acute kidney injury secondary to ATN secondary to severe sepsis. Also component of urinary retention. Creatinine 3.91 on admission -2.7 today. 2. Mild right hydronephrosis noted on kidney ultrasound with nonobstructive nephrolithiasis. Urology following. On Flomax. 3. Hyperkalemia secondary to acute kidney injury and metabolic acidosis. Improved with medical management. 4. Metabolic acidosis secondary to acute kidney injury and GI losses. Status post bicarb drip. On oral bicarb. 5. Nephrolithiasis secondary to Crohn's disease. 6. Recurrent urinary tract infections. On antibiotics. 7. History of ureteral stents status post removal. 8. Chronic kidney disease stage IIIb with baseline creatinine 1.7-2. Etiology is obstructive uropathy. 9. Hypertension with chronic kidney disease. Controlled. 10. Acute blood loss anemia with hemoglobin 6.7, status post packed RBCs transfusion. Hemoglobin 7.3 today. Plan: continue with saline. Repeat labs in a.m. Continue with sodium bicarb
--- NOTE | 2023-10-08 13:04 | P.PN ---
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 Patient is currently on IV antibiotics through PICC line for pyelonephritis as an outpatient. We have been asked to evaluate the patient for first-degree heart block, symptomatic bradycardia, and sinus pauses. Patient is not on beta-vonda or any AV justin blocking agents at home. Patient was seen by cardiology during hospitalization in August at which time consult was for ruling out ST elevation. Patient was to follow-up with Dr. Murray at that time. However, patient has not had a follow-up appointment in the office. Patient presented to the hospital on 10/03/2023 due to abnormal labs. Patient is followed by nephrology, urology, and infectious disease. Patient gives history that he has had 3 hospitalizations for basically the same thing with kidney stones, infected kidney stone, urinary tract infection and pyelonephritis. He denies having any history of coronary artery disease and no history of CHF. He has never been told he had atrial fibrillation. He denies having any chest pain and no shortness of breath. No palpitations or pounding in his chest. He states his lower extremity edema on and off. Regarding Crohn's disease. He denies any recent bleeding. He denies any caffeine intake and no alcohol use. No abdominal pain. Regarding chronic kidney disease, patient states he has been diagnosed about 6 to 7 months ago. No history of diabetes. No smoking history. Blood pressure 96/50, heart rate 50, pulse ox 94% on room air. Patient was on clonidine which is subsequently been discontinued. EKG: Performed on 10/03 revealed sinus bradycardia with a first-degree AV block, IVCD. On telemetry, heart rate has been consistently in the 40s-50s. Laboratory studies: WBC 9, hemoglobin 7.1. Initial potassium 6.5 now 5.1. Initial CO2 8 now 21. Initial BUN 60 repeat 40. Creatinine 3.91 and repeat 2.53. Magnesium 1.4. Home cardiac medications: Amlodipine 10 mg daily, hydralazine 75 mg 3 times daily, magnesium oxide 400 mg twice daily, also on Humira. Echocardiogram performed 08/18/2022 revealed left ventricular systolic function borderline normal at 50 to 55%. Mild mitral and tricuspid regurgitation with no evidence of pulmonary hypertension. Mild to moderate aortic regurgitation with calcified aortic valve. 10/08/2023 Patient examined this morning at the bedside. Patient currently denies chest pain or pressure. He denies shortness of breath. Patient's heart rate remains in the 50s. He denies dizziness or lightheadedness. Systolic blood pressure range between [id number]. Echocardiogram completed revealing ejection fraction 55 to 60%, mild MR, mild , moderate AR, mild TR. PHYSICAL EXAM: VITAL SIGNS: Reviewed. GENERAL: Well-developed in no acute distress. NECK: Supple. No JVD or thyromegaly LUNGS: Respirations even and unlabored. Lungs essentially clear to auscultation bilaterally. HEART: Regular rate and rhythm. S1 and S2 heard. + systolic murmur EXTREMITIES: Normal range of motion. No clubbing or cyanosis. Peripheral pulses intact. No lower extremity edema ASSESSMENT: Sinus bradycardia Acute kidney injury Mild right hydronephrosis followed by urology Severe hyperkalemia secondary to acute kidney injury Metabolic acidosis secondary to acute kidney injury Nephrolithiasis Crohn's disease Recurrent urinary tract infections, pyelonephritis and possible prostatitis fo llowed by infectious disease Anemia of chronic disease History of SVT with previous ablation, 20 years ago per patient Hypertension PLAN: Continue to avoid any AV justin blocking agents Clonidine discontinued yesterday Continue telemetry monitoring Continue to monitor blood pressure. Patient with slightly elevated blood pressures today. No changes to blood pressure regimen today. Further recommendations pending patient course Nurse practitioner note has been reviewed by physician. Signing provider agrees with the documented findings, assessment, and plan of care documented by WAREHOUSING TECHNICIAN as a scribe. Objective - Vital Signs Vital signs: Vital Signs Temp 98.2 F 10/08/23 08:00 Pulse 52 L 10/08/23 08:00 Resp 18 10/08/23 08:00 BP 160/55 10/08/23 08:00 Pulse Ox 93 L 10/08/23 08:00 FiO2 Intake & Output 10/07/23 10/08/23 10/08/23 18:59 06:59 18:59 Intake Total 1001 Output Total 1700 800 Balance -699 -800 Intake: Oral 716 Blood Product 285 Rc Pheresis As-3 Unit 285 [id number] Output: Urine 1700 800 Other: Voiding Method Indwelling Catheter Indwelling Catheter Indwelling Catheter # Bowel Movements 1 - Labs CBC & Chem 7: 10/08/23 07:19 10/08/23 07:19 Labs: Abnormal Lab Results - Last 24 Hours (Table) 10/07/23 10/08/23 10/08/23 Range/Units 11:46 07:19 07:19 RBC 2.47 L (4.30-5.90) m/uL Hgb 7.3 L (13.0-17.5) gm/dL Hct 23.2 L (39.0-53.0) % Sodium 134 L (137-145) mmol/L Chloride 110 H (98-107) mmol/L Carbon Dioxide 19 L (22-30) mmol/L BUN 47 H (9-20) mg/dL Creatinine 2.71 H (0.66-1.25) mg/dL Calcium 7.9 L (8.4-10.2) mg/dL Total Protein 5.3 L (6.3-8.2) g/dL Albumin 2.3 L (3.5-5.0) g/dL Crossmatch See Detail
--- NOTE | 2023-10-08 14:33 | P.PN ---
Subjective Progress Note Date: 10/08/23 73-year-old white male with opiate dependence history and Crohn's colitis who came in with hyperkalemia and acute kidney injury with chronic UTI. Appreciate multiple consultants input. Labs this morning are still pending. He still feels quite poorly. Potassium has improved. Will check appropriate lab oratories tomorrow. History of multifactorial anemia. Magnesium is low he is not on protocol. Renal function is improving. 10/08/2023 patient presented to the hospital with abnormal kidney function in this patient noticed to have elevated creatinine and potassium patient currently undergoing treatment for pyelonephritis and concern for possible prostatitis with outpati ent IV Rocephin still have significantly positive urine -urine culture has been negative so far -patient care has been discussed with the urology as the patient recently did have a cystoscopy in May not recommending a repeat cystoscopy keeping in mind his history of extremity bowel disease and a question of possible colovesical fistula we will obtain a CT of abdominal pelvis with oral contrast only because of his elevated creatinine for now continue with Rocephin Objective - Vital Signs Vital signs: Vital Signs Temp 98.2 F 10/08/23 08:00 Pulse 52 L 10/08/23 08:00 Resp 18 10/08/23 08:00 BP 160/55 10/08/23 08:00 Pulse Ox 93 L 10/08/23 08:00 FiO2 Intake & Output 10/07/23 10/08/23 10/08/23 18:59 06:59 18:59 Intake Total 1001 Output Total 1700 800 Balance -699 -800 Intake: Oral 716 Blood Product 285 Rc Pheresis As-3 Unit 285 [id number] Output: Urine 1700 800 Other: Voiding Method Indwelling Catheter Indwelling Catheter # Bowel Movements 1 - Exam VITAL SIGNS: Reviewed. GENERAL: Well-developed in no acute distress. NECK: Supple. No JVD or thyromegaly LUNGS: Respirations even and unlabored. Lungs essentially clear to auscultation bilaterally. HEART: Regular rate and rhythm. S1 and S2 heard. + systolic murmur EXTREMITIES: Normal range of motion. No clubbing or cyanosis. Peripheral pulses intact. No lower extremity edema - Labs CBC & Chem 7: 10/08/23 07:19 10/08/23 07:19 Labs: Abnormal Lab Results - Last 24 Hours (Table) 10/07/23 10/07/23 10/08/23 Range/Units 08:06 11:46 07:19 RBC 2.39 L 2.47 L (4.30-5.90) m/uL Hgb 6.7 L* 7.3 L (13.0-17.5) gm/dL Hct 22.6 L 23.2 L (39.0-53.0) % MCHC 29.8 L (31.0-37.0) g/dL Sodium (137-145) mmol/L Chloride (98-107) mmol/L Carbon Dioxide (22-30) mmol/L BUN (9-20) mg/dL Creatinine (0.66-1.25) mg/dL Calcium (8.4-10.2) mg/dL Total Protein (6.3-8.2) g/dL Albumin (3.5-5.0) g/dL Crossmatch See Detail 10/08/23 Range/Units 07:19 RBC (4.30-5.90) m/uL Hgb (13.0-17.5) gm/dL Hct (39.0-53.0) % MCHC (31.0-37.0) g/dL Sodium 134 L (137-145) mmol/L Chloride 110 H (98-107) mmol/L Carbon Dioxide 19 L (22-30) mmol/L BUN 47 H (9-20) mg/dL Creatinine 2.71 H (0.66-1.25) mg/dL Calcium 7.9 L (8.4-10.2) mg/dL Total Protein 5.3 L (6.3-8.2) g/dL Albumin 2.3 L (3.5-5.0) g/dL Crossmatch Assessment and Plan Assessment: Sinus bradycardia Acute kidney injury Mild right hydronephrosis followed by urology Severe hyperkalemia secondary to acute kidney injury Metabolic acidosis secondary to acute kidney injury Nephrolithiasis Crohn's disease Recurrent urinary tract infections, pyelonephritis and possible prostatitis followed by infectious disease Anemia of chronic disease History of SVT with previous ablation, 20 years ago per patient Hypertension PLAN: Continue to avoid any AV justin blocking agents Clonidine discontinued yesterday Continue telemetry monitoring Continue to monitor blood pressure. Patient with slightly elevated blood pressures today. No changes to blood pressure regimen today. Further recommendations pending patient course
--- NOTE | 2023-10-08 16:29 | P.PN ---
Subjective Progress Note Date: 10/08/23 Principal diagnosis: Reason for follow-up is urinary tract infection Patient is a 73-year-old male with a past medical history significant for atrial fibrillation hypertension hyperlipidemia reflux Crohn's disease and history of recurrent UTI currently on IV Rocephin in the outpatient setting presenting to the hospital with worsening of kidney function also noticed to have a positive UA concerning for persistent UTI. On today's evaluation that is 10/08/2023,the patient remains to be afebrile, patient is on room air not requiring supplemental oxygen and denies any shortness of breath no chest pain or cough.Patient denies having any nausea or vomiting, no abdominal pain and no diarrhea has been reported, still complaining of not feeling that ". Patient white count is 6.5, creatinine is 2.71 CT abdominal pelvis with contrast did not show any suspicious for colovesical fistula however radiology recommending alternative testing Objective - Vital Signs Vital signs: Vital Signs Temp 98.3 F 10/08/23 12:00 Pulse 64 10/08/23 13:59 Resp 16 10/08/23 12:00 BP 133/53 10/08/23 12:00 Pulse Ox 94 L 10/08/23 12:00 FiO2 Intake & Output 10/07/23 10/08/23 10/08/23 18:59 06:59 18:59 Intake Total 1001 Output Total 1700 800 Balance -699 -800 Intake: Oral 716 Blood Product 285 Rc Pheresis As-3 Unit 285 [id number] Output: Urine 1700 800 Other: Voiding Method Indwelling Catheter Indwelling Catheter Indwelling Catheter # Bowel Movements 1 - Exam GENERAL DESCRIPTION: An elderly male lying in bed in no distress RESPIRATORY SYSTEM: Unlabored breathing , decreased breath sounds at bases HEART: S1 S2 regular rate and rhythm , ABDOMEN: Soft , no tenderness EXTREMITIES: No edema feet - Labs CBC & Chem 7: 10/08/23 07:19 10/08/23 07:19 Labs: Abnormal Lab Results - Last 24 Hours (Table) 10/07/23 10/08/23 10/08/23 Range/Units 11:46 07:19 07:19 RBC 2.47 L (4.30-5.90) m/uL Hgb 7.3 L (13.0-17.5) gm/dL Hct 23.2 L (39.0-53.0) % Sodium 134 L (137-145) mmol/L Chloride 110 H (98-107) mmol/L Carbon Dioxide 19 L (22-30) mmol/L BUN 47 H (9-20) mg/dL Creatinine 2.71 H (0.66-1.25) mg/dL Calcium 7.9 L (8.4-10.2) mg/dL Total Protein 5.3 L (6.3-8.2) g/dL Albumin 2.3 L (3.5-5.0) g/dL Crossmatch See Detail Assessment and Plan (1) Urinary tract infection Current Visit: No Status: Acute Code(s): N39.0 - URINARY TRACT INFECTION, SITE NOT SPECIFIED SNOMED Code(s): 24934326 Plan: 1patient presented to the hospital with abnormal kidney function in this patient noticed to have elevated creatinine and potassium patient currently undergoing treatment for pyelonephritis and concern for possible prostatitis with outpatient IV Rocephin still have significantly positive urine 2-urine culture has been negative so far 3-patient care has been discussed with the urology as the patient recently did have a cystoscopy in May not recommending a repeat cystoscopy keeping in mind his history of extremity bowel disease and a question of possible colovesical fistula, CT does show evidence of fistula radiology commending alternative testing will discuss if cystogram can be done will be ordered for Tuesday for now continue with Rocephin questions were answered Dictation was produced using [employer] dictation software. please excuse any grammatical, word or spelling errors. Time with Patient: Less than 30
[2023-10-09 07:02] LABS: Basophils % (A) 1 %; Eosinophils # (A) 0.4 k/uL (0-0.7); Eosinophils % (A) 6 %; HGB 7.9 gm/dL (13.0-17.5); Hypochromasia Slight; Lymphocytes # (A) 1.1 k/uL (1.0-4.8); Lymphocytes % (A) 19 %; MCH 28.9 pg (25.0-35.0); MCHC 30.5 g/dL (31.0-37.0); MCV 94.7 fL (80.0-100.0); Monocytes # (A) 0.4 k/uL (0-1.0); Monocytes % (A) 7 %; Neutrophils % (A) 67 %; Platelet Count 204 k/uL (150-450); RBC 2.75 m/uL (4.30-5.90); RDW 14.1 % (11.5-15.5); WBC 5.9 k/uL (3.8-10.6)
[2023-10-09 07:12] LABS: African American GFR (CKD) 30 (>60 ml/min/1.73 sqM); Anion Gap 4 mmol/L; Blood Urea Nitrogen 40 mg/dL (9-20); Carbon Dioxide 19 mmol/L (22-30); Chloride 109 mmol/L (98-107); Glucose 91 mg/dL (74-99); Non-African American GFR(CKD) 26 (>60 ml/min/1.73 sqM); Sodium 132 mmol/L (137-145)
[2023-10-09] MEDS: hydrALAZINE HCL 50 MG TAB PO SCH (09:01)
--- NOTE | 2023-10-09 10:05 | P.PN ---
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 Patient is currently on IV antibiotics through PICC line for pyelonephritis as an outpatient. We have been asked to evaluate the patient for first-degree heart block, symptomatic bradycardia, and sinus pauses. Patient is not on beta-vonda or any AV justin blocking agents at home. Patient was seen by cardiology during hospitalization in August at which time consult was for ruling out ST elevation. Patient was to follow-up with Dr. Murray at that time. However, patient has not had a follow-up appointment in the office. Patient presented to the hospital on 10/03/2023 due to abnormal labs. Patient is followed by nephrology, urology, and infectious disease. Patient gives history that he has had 3 hospitalizations for basically the same thing with kidney stones, infected kidney stone, urinary tract infection and pyelonephritis. He denies having any history of coronary artery disease and no history of CHF. He has never been told he had atrial fibrillation. He denies having any chest pain and no shortness of breath. No palpitations or pounding in his chest. He states his lower extremity edema on and off. Regarding Crohn's disease. He denies any recent bleeding. He denies any caffeine intake and no alcohol use. No abdominal pain. Regarding chronic kidney disease, patient states he has been diagnosed about 6 to 7 months ago. No history of diabetes. No smoking history. Blood pressure 96/50, heart rate 50, pulse ox 94% on room air. Patient was on clonidine which is subsequently been discontinued. EKG: Performed on 10/03 revealed sinus bradycardia with a first-degree AV block, IVCD. On telemetry, heart rate has been consistently in the 40s-50s. Laboratory studies: WBC 9, hemoglobin 7.1. Initial potassium 6.5 now 5.1. Initial CO2 8 now 21. Initial BUN 60 repeat 40. Creatinine 3.91 and repeat 2.53. Magnesium 1.4. Home cardiac medications: Amlodipine 10 mg daily, hydralazine 75 mg 3 times daily, magnesium oxide 400 mg twice daily, also on Humira. Echocardiogram performed 08/18/2022 revealed left ventricular systolic function borderline normal at 50 to 55%. Mild mitral and tricuspid regurgitation with no evidence of pulmonary hypertension. Mild to moderate aortic regurgitation with calcified aortic valve. 10/08/2023 Patient examined this morning at the bedside. Patient currently denies chest pain or pressure. He denies shortness of breath. Patient's heart rate remains in the 50s. He denies dizziness or lightheadedness. Systolic blood pressure range between [id number]. Echocardiogram completed revealing ejection fraction 55 to 60%, mild MR, mild , moderate AR, mild TR. 10/09/2023 Patient examined this morning at bedside. Patient states he still generally feels unwell. He denies any chest pain or pressure. Denies any shortness of breath. Patient's heart rates are 50s60s. His blood pressure this morning is elevated with a systolic in the 190s. Hemoglobin today 7.9. Creatinine stable at 2.41. PHYSICAL EXAM: VITAL SIGNS: Reviewed. GENERAL: Well-developed in no acute distress. NECK: Supple. No JVD or thyromegaly LUNGS: Respirations even and unlabored. Lungs essentially clear to auscultation bilaterally. HEART: Regular rate and rhythm. S1 and S2 heard. + systolic murmur EXTREMITIES: Normal range of motion. No clubbing or cyanosis. Peripheral pulses intact. No lower extremity edema ASSESSMENT: Sinus bradycardia Acute kidney injury Mild right hydronephrosis followed by urology Severe hyperkalemia secondary to acute kidney injury Metabolic acidosis secondary to acute kidney injury Nephrolithiasis Crohn's disease Recurrent urinary tract infections, pyelonephritis and possible prostatitis followed by infectious disease Anemia of chronic disease History of SVT with previous ablation, 20 years ago per patient Hypertension PLAN: Continue to avoid any AV justin blocking agents Clonidine discontinued upon admission Increase hydralazine to 100 mg 3 times a day Continue telemetry monitoring Continue to monitor blood pressure Further recommendations pending patient course Nurse practitioner note has been reviewed by physician. Signing provider agrees with the documented findings, assessment, and plan of care documented by COMMUNITY SERVICE AIDE as a scribe. Objective - Vital Signs Vital signs: Vital Signs Temp 97.5 F L 10/09/23 07:55 Pulse 57 L 10/09/23 07:55 Resp 16 10/09/23 07:55 BP 191/46 10/09/23 07:55 Pulse Ox 95 10/09/23 07:55 FiO2 Intake & Output 10/08/23 10/09/23 10/09/23 18:59 06:59 18:59 Output Total 9375 0193 Balance -1450 -1925 Output: Urine 1450 1926 Other: Voiding Method Indwelling Catheter Indwelling Catheter Indwelling Catheter - Labs CBC & Chem 7: 10/09/23 06:41 10/09/23 06:41 Labs: Abnormal Lab Results - Last 24 Hours (Table) 10/09/23 10/09/23 Range/Units 06:41 06:41 RBC 2.75 L (4.30-5.90) m/uL Hgb 7.9 L (13.0-17.5) gm/dL Hct 26.0 L (39.0-53.0) % MCHC 30.5 L (31.0-37.0) g/dL Sodium 132 L (137-145) mmol/L Chloride 109 H (98-107) mmol/L Carbon Dioxide 19 L (22-30) mmol/L BUN 40 H (9-20) mg/dL Creatinine 2.41 H (0.66-1.25) mg/dL Calcium 8.0 L (8.4-10.2) mg/dL
--- NOTE | 2023-10-09 12:48 | P.PN ---
Subjective patient is seen for follow-up for acute kidney injury. renal function is improving. Serum creatinine down to 2.4 mg/dL. 24 hour urine output at 3.3 L. No significant complaints today. Objective - Vital Signs Vital signs: Vital Signs Temp 97.5 F L 10/09/23 07:55 Pulse 57 L 10/09/23 07:55 Resp 16 10/09/23 07:55 BP 191/46 10/09/23 07:55 Pulse Ox 95 10/09/23 07:55 FiO2 Intake & Output 10/08/23 10/09/23 10/09/23 18:59 06:59 18:59 Output Total 1450 1925 Balance -1450 -1925 Output: Urine 1450 1925 Other: Voiding Method Indwelling Catheter Indwelling Catheter Indwelling Catheter - Exam on examination patient is comfortable awake no acute distress. Examination of the heart S1 and S2 Examination of the lungs bilateral breath sounds are heard Abdomen is soft nontender Examination of lower extremities shows trace edema. MANAGER RELOCATION exam grossly intact - Labs CBC & Chem 7: 10/09/23 06:41 10/09/23 06:41 Labs: Abnormal Lab Results - Last 24 Hours (Table) 10/09/23 10/09/23 Range/Units 06:41 06:41 RBC 2.75 L (4.30-5.90) m/uL Hgb 7.9 L (13.0-17.5) gm/dL Hct 26.0 L (39.0-53.0) % MCHC 30.5 L (31.0-37.0) g/dL Sodium 132 L (137-145) mmol/L Chloride 109 H (98-107) mmol/L Carbon Dioxide 19 L (22-30) mmol/L BUN 40 H (9-20) mg/dL Creatinine 2.41 H (0.66-1.25) mg/dL Calcium 8.0 L (8.4-10.2) mg/dL Assessment and Plan Assessment: 1. Acute kidney injury secondary to ATN secondary to severe sepsis. Also component of urinary retention. Creatinine 3.91 on admission -2.4 today. 2. Mild right hydronephrosis noted on kidney ultrasound with nonobstructive nephrolithiasis. Urology following. On Flomax. 3. Hyperkalemia secondary to acute kidney injury and metabolic acidosis. Improved with medical management. 4. Metabolic acidosis secondary to acute kidney injury and GI losses. Status post bicarb drip. On oral bicarb. 5. Nephrolithiasis secondary to Crohn's disease. 6. Recurrent urinary tract infections. On antibiotics. 7. History of ureteral stents status post removal. 8. Chronic kidney disease stage IIIb with baseline creatinine 1.7-2. Etiology is obstructive uropathy. 9. Hypertension with chronic kidney disease. Controlled. 10. Acute blood loss anemia with hemoglobin 6.7, status post packed RBCs transfusion. Hemoglobin 7.9 today. Plan: continue with saline. decrease rate to 50 mL an hour Repeat labs in a.m. Continue with sodium bicarb
--- NOTE | 2023-10-09 22:39 | P.PN ---
Subjective Progress Note Date: 10/09/23 Principal diagnosis: Reason for follow-up is urinary tract infection Patient is a 73-year-old male with a past medical history significant for atrial fibrillation hypertension hyperlipidemia reflux Crohn's disease and history of recurrent UTI currently on IV Rocephin in the outpatient setting presenting to the hospital with worsening of kidney function also noticed to have a positive UA concerning for persistent UTI. On today's evaluation that is 10/09/2023, the patient continues to be afebrile, the patient is on room air and breathing comfortably, the Pt denies having any chest pain or cough, the patient denies having any abdominal pain no vomiting or any diarrhea complaining of some weakness. Patient white count is 5.9, creatinine is 2.41 Objective - Vital Signs Vital signs: Vital Signs Temp 97.5 F L 10/09/23 07:55 Pulse 57 L 10/09/23 07:55 Resp 16 10/09/23 07:55 BP 191/46 10/09/23 07:55 Pulse Ox 95 10/09/23 07:55 FiO2 Intake & Output 10/08/23 10/09/23 10/09/23 18:59 06:59 18:59 Output Total 1450 1925 Balance -1450 -1925 Output: Urine 1450 1925 Other: Voiding Method Indwelling Catheter Indwelling Catheter Indwelling Catheter - Exam GENERAL DESCRIPTION: An elderly male lying in bed in no distress RESPIRATORY SYSTEM: Unlabored breathing , decreased breath sounds at bases HEART: S1 S2 regular rate and rhythm , ABDOMEN: Soft , no tenderness EXTREMITIES: No edema feet - Labs CBC & Chem 7: 10/09/23 06:41 10/09/23 06:41 Labs: Abnormal Lab Results - Last 24 Hours (Table) 10/09/23 10/09/23 Range/Units 06:41 06:41 RBC 2.75 L (4.30-5.90) m/uL Hgb 7.9 L (13.0-17.5) gm/dL Hct 26.0 L (39.0-53.0) % MCHC 30.5 L (31.0-37.0) g/dL Sodium 132 L (137-145) mmol/L Chloride 109 H (98-107) mmol/L Carbon Dioxide 19 L (22-30) mmol/L BUN 40 H (9-20) mg/dL Creatinine 2.41 H (0.66-1.25) mg/dL Calcium 8.0 L (8.4-10.2) mg/dL Assessment and Plan (1) Urinary tract infection Current Visit: No Status: Acute Code(s): N39.0 - URINARY TRACT INFECTION, SITE NOT SPECIFIED SNOMED Code(s): 11697186 Plan: 1patient presented to the hospital with abnormal kidney function in this patient noticed to have elevated creatinine and potassium patient currently undergoing treatment for pyelonephritis and concern for possible prostatitis with outpatient IV Rocephin still have significantly positive urine 2-urine culture has been negative so far 3-patient care has been discussed with the urology as the patient recently did have a cystoscopy in May not recommending a repeat cystoscopy keeping in mi nd his history of extremity bowel disease and a question of possible colovesical fistula, 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 if cystogram can be done will be ordered for Tuesday for now continue with Rocephin questions were answered Dictation was produced using [employer] dictation software. please excuse any grammatical, word or spelling errors. Time with Patient: Less than 30
--- NOTE | 2023-10-10 09:05 | P.PN ---
Subjective Progress Note Date: 10/10/23 This is a 73-year-old male who presented to the emergency department after being sent from our office regarding abnormal labs. Patient had some outpatient lab work done which showed hyperkalemia and he was sent to the emergency room for further evaluation. Patient has been dealing with a chronic UTI and has been on IV antibiotics as an outpatient. Potassium on admission was 6.7, BUN 67 and creatinine 4.7 on admission. Patient reports he has been feeling more tired at home. He reports his urine has been more of a milky consistency. Nair catheter was inserted on admission and reportedly had an 800 mL output. Infectious disease and nephrology have been consulted. Further medical history as noted below. 10/10/2023 Patient seen and examined laying in bed comfortably. He reports fatigue and weakness. Kidney function is slowly improving, he remains on sodium bicarb. CT of the abdomen showing possible colovesical fistula, patient will have possible cystogram today. Objective - Vital Signs Vital signs: Vital Signs Temp 98 F 10/09/23 20:00 Pulse 62 10/10/23 04:00 Resp 17 10/10/23 04:00 BP 142/67 10/10/23 04:00 Pulse Ox 94 L 10/10/23 04:00 FiO2 Intake & Output 10/09/23 10/10/23 10/10/23 18:59 06:59 18:59 Intake Total 236 Output Total 1000 1550 Balance -764 -1550 Intake: Oral 236 Output: Urine 1000 1550 Other: Voiding Method Indwelling Catheter Indwelling Catheter - Constitutional General appearance: Present: cooperative, no acute distress, thin - EENT Eyes: Present: PERRLA - Neck Neck: Present: normal ROM. Absent: lymphadenopathy, rigidity - Respiratory Respiratory: bilateral: CTA - Cardiovascular Heart sounds: normal: S1, S2 - Gastrointestinal General gastrointestinal: Present: soft. Absent: tenderness - Integumentary Integumentary: Present: normal, normal turgor - Musculoskeletal Musculoskeletal: Present: generalized weakness - Psychiatric Psychiatric: Present: A&O x's 3, appropriate affect, intact judgment & insight - Labs CBC & Chem 7: 10/09/23 06:41 10/09/23 06:41 Assessment and Plan (1) Acute kidney injury superimposed on CKD Current Visit: Yes Status: Acute Code(s): N17.9 - ACUTE KIDNEY FAILURE, UNSPECIFIED; N18.9 - CHRONIC KIDNEY DISEASE, UNSPECIFIED SNOMED Code(s): 63443855 (2) Chronic UTI Current Visit: Yes Status: Acute Code(s): N39.0 - URINARY TRACT INFECTION, SITE NOT SPECIFIED SNOMED Code(s): 302336326 (3) Hyperkalemia Current Visit: Yes Status: Acute Code(s): E87.5 - HYPERKALEMIA SNOMED Code(s): 96131191 (4) BPH (benign prostatic hyperplasia) Current Visit: No Status: Acute Code(s): N40.0 - BENIGN PROSTATIC HYPERPL MOHAN WITHOUT LOWER URINRY TRACT SYMP SNOMED Code(s): 829047605 (5) Chronic anemia Current Visit: No Status: Acute Code(s): D64.9 - ANEMIA, UNSPECIFIED SNOMED Code(s): 771526557 (6) History of atrial fibrillation Current Visit: No Status: Acute Code(s): Z86.79 - PERSONAL HISTORY OF OTHER DISEASES OF THE CIRCULATORY SYSTEM SNOMED Code(s): 775302192 (7) Hx of Crohn's disease Current Visit: No Status: Acute Code(s): Z87.19 - PERSONAL HISTORY OF OTHER DISEASES OF THE DIGESTIVE SYSTEM SNOMED Code(s): 623875606898006 (8) Hypertension Current Visit: No Status: Acute Code(s): I10 - ESSENTIAL (PRIMARY) HYPE RTENSION SNOMED Code(s): 23334056 (9) Weakness Current Visit: No Status: Acute Code(s): R53.1 - WEAKNESS SNOMED Code(s): 40854723 Plan: Check CBC and CMP in the morning. Appreciate multiple consultants. Await possible cystogram. Patient seen and evaluated by nurse practitioner, physician in agreement with plan
--- NOTE | 2023-10-10 11:16 | P.PN ---
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 Patient is currently on IV antibiotics through PICC line for pyelonephritis as an outpatient. We have been asked to evaluate the patient for first-degree heart block, symptomatic bradycardia, and sinus pauses. Patient is not on beta-vonda or any AV justin blocking agents at home. Patient was seen by cardiology during hospitalization in August at which time consult was for ruling out ST elevation. Patient was to follow-up with Dr. Murray at that time. However, patient has not had a follow-up appointment in the office. Patient presented to the hospital on 10/03/2023 due to abnormal labs. Patient is followed by nephrology, urology, and infectious disease. Patient gives history that he has had 3 hospitalizations for basically the same thing with kidney stones, infected kidney stone, urinary tract infection and pyelonephritis. He denies having any history of coronary artery disease and no history of CHF. He has never been told he had atrial fibrillation. He denies having any chest pain and no shortness of breath. No palpitations or pounding in his chest. He states his lower extremity edema on and off. Regarding Crohn's disease. He denies any recent bleeding. He denies any caffeine intake and no alcohol use. No abdominal pain. Regarding chronic kidney disease, patient states he has been diagnosed about 6 to 7 months ago. No history of diabetes. No smoking history. Blood pressure 96/50, heart rate 50, pulse ox 94% on room air. Patient was on clonidine which is subsequently been discontinued. EKG: Performed on 10/03 revealed sinus bradycardia with a first-degree AV block, IVCD. On telemetry, heart rate has been consistently in the 40s-50s. Laboratory studies: WBC 9, hemoglobin 7.1. Initial potassium 6.5 now 5.1. Initial CO2 8 now 21. Initial BUN 60 repeat 40. Creatinine 3.91 and repeat 2.53. Magnesium 1.4. Home cardiac medications: Amlodipine 10 mg daily, hydralazine 75 mg 3 times daily, magnesium oxide 400 mg twice daily, also on Humira. Echocardiogram performed 08/18/2022 revealed left ventricular systolic function borderline normal at 50 to 55%. Mild mitral and tricuspid regurgitation with no evidence of pulmonary hypertension. Mild to moderate aortic regurgitation with calcified aortic valve. 10/08/2023 Patient examined this morning at the bedside. Patient currently denies chest pain or pressure. He denies shortness of breath. Patient's heart rate remains in the 50s. He denies dizziness or lightheadedness. Systolic blood pressure range between [id number]. Echocardiogram completed revealing ejection fraction 55 to 60%, mild MR, mild , moderate AR, mild TR. 10/09/2023 Patient examined this morning at bedside. Patient states he still generally feels unwell. He denies any chest pain or pressure. Denies any shortness of breath. Patient's heart rates are 50s60s. His blood pressure this morning is elevated with a systolic in the 190s. Hemoglobin today 7.9. Creatinine stable at 2.41. 10/10/2023 Patient examined this morning at the bedside. Patient currently denies chest pain or pressure. He denies shortness of breath. Patient's heart rate remained stable with a heart rate in the 60s. Patient's blood pressure improved with a systolic range between 191990. Blood pressure this morning before his morning medications 173/77. PHYSICAL EXAM: VITAL SIGNS: Reviewed. GENERAL: Well-developed in no acute distress. NECK: Supple. No JVD or thyromegaly LUNGS: Respirations even and unlabored. Lungs essentially clear to auscultation bilaterally. HEART: Regular rate and rhythm. S1 and S2 heard. + systolic murmur EXTREMITIES: Normal range of motion. No clubbing or cyanosis. Peripheral pulses intact. No lower extremity edema ASSESSMENT: Sinus bradycardia Acute kidney injury Mild right hydronephrosis followed by urology Severe hyperkalemia secondary to acute kidney injury Metabolic acidosis secondary to acute kidney injury Nephrolithiasis Crohn's disease Recurrent urinary tract infections, pyelonephritis and possible prostatitis followed by infectious disease Anemia of chronic disease History of SVT with previous ablation, 20 years ago per patient Hypertension PLAN: Continue to avoid any AV justin blocking agents Clonidine discontinued upon admission Continue additional cardiac medications No further inpatient recommendations from a cardiac standpoint We will sign off. Please reconsult if needed. Nurse practitioner note has been reviewed by physician. Signing provider agrees with the documented findings, assessment, and plan of care documented by TOPOGRAPHICAL FIELD ASSISTANT as a scribe. Objective - Vital Signs Vital signs: Vital Signs Temp 97.3 F L 10/10/23 09:15 Pulse 58 L 10/10/23 09:15 Resp 16 10/10/23 09:15 BP 173/77 10/10/23 09:15 Pulse Ox 95 10/10/23 09:15 FiO2 Intake & Output 10/09/23 10/10/23 10/10/23 18:59 06:59 18:59 Intake Total 236 Output Total 1000 1550 Balance -764 -1550 Intake: Oral 236 Output: Urine 1000 1550 Other: Voiding Method Indwelling Catheter Indwelling Catheter Indwelling Catheter - Labs CBC & Chem 7: 10/09/23 06:41 10/09/23 06:41
--- NOTE | 2023-10-10 12:23 | P.PN ---
Subjective Progress Note Date: 10/09/23 73-year-old white male with opiate dependence history and Crohn's colitis who came in with hyperkalemia and acute kidney injury with chronic UTI. Appreciate multiple consultants input. Labs this morning are still pending. He still feels quite poorly. Potassium has improved. Will check appropriate lab oratories tomorrow. History of multifactorial anemia. Magnesium is low he is not on protocol. Renal function is improving. 10/08/2023 patient presented to the hospital with abnormal kidney function in this patient noticed to have elevated creatinine and potassium patient currently undergoing treatment for pyelonephritis and concern for possible prostatitis with outpati ent IV Rocephin still have significantly positive urine -urine culture has been negative so far -patient care has been discussed with the urology as the patient recently did have a cystoscopy in May not recommending a repeat cystoscopy keeping in mind his history of extremity bowel disease and a question of possible colovesical fistula we will obtain a CT of abdominal pelvis with oral contrast only because of his elevated creatinine for now continue with Rocephin 10/09/2023 Patient is seen and evaluated in room at bedside; patient reports he feels same as yesterday but does not give any specific complaints Vital signs are reviewed with temperature of 97.5, pulse 57, respirations 16 and blood pressure of 191/46 Cardiology on board and recommending to avoid AV justin justin blocking agents given sinus bradycardia; clonidine was discontinued at time of admission; hydralazine was increased to 100 mg 3 times daily given uncontrolled hypertension --Patient remains on IV fluids in form of normal saline which has been decreased to 50 cc an hour per nephrology recommendation; patient remains on sodium bicarb ID is following for pyelonephritis and concern for possible prostatitis; patient remains on IV Rocephin Objective - Vital Signs Vital signs: Vital Signs Temp 97.5 F L 10/09/23 07:55 Pulse 57 L 10/09/23 07:55 Resp 16 10/09/23 07:55 BP 191/46 10/09/23 07:55 Pulse Ox 95 10/09/23 07:55 FiO2 Intake & Output 10/08/23 10/09/23 10/09/23 18:59 06:59 18:59 Output Total 1450 1925 Balance -1450 -1925 Output: Urine 1450 1925 Other: Voiding Method Indwelling Catheter Indwelling Catheter Indwelling Catheter - Exam VITAL SIGNS: Reviewed. GENERAL: Well-developed in no acute distress. NECK: Supple. No JVD or thyromegaly LUNGS: Respirations even and unlabored. Lungs essentially clear to auscultation bilaterally. HEART: Regular rate and rhythm. S1 and S2 heard. + systolic murmur EXTREMITIES: Normal range of motion. No clubbing or cyanosis. Peripheral pulses intact. No lower extremity edema - Labs CBC & Chem 7: 10/09/23 06:41 10/09/23 06:41 Labs: Abnormal Lab Results - Last 24 Hours (Table) 10/09/23 10/09/23 Range/Units 06:41 06:41 RBC 2.75 L (4.30-5.90) m/uL Hgb 7.9 L (13.0-17.5) gm/dL Hct 26.0 L (39.0-53.0) % MCHC 30.5 L (31.0-37.0) g/dL Sodium 132 L (137-145) mmol/L Chloride 109 H (98-107) mmol/L Carbon Dioxide 19 L (22-30) mmol/L BUN 40 H (9-20) mg/dL Creatinine 2.41 H (0.66-1.25) mg/dL Calcium 8.0 L (8.4-10.2) mg/dL Assessment and Plan Assessment: Sinus bradycardia Acute kidney injury Mild right hydronephrosis followed by urology Severe hyperkalemia secondary to acute kidney injury Metabolic acidosis secondary to acute kidney injury Nephrolithiasis Crohn's disease Recurrent urinary tract infections, pyelonephritis and possible prostatitis followed by infectious disease Anemia of chronic disease History of SVT with previous ablation, 20 years ago per patient Hypertension PLAN: Continue to avoid any AV justin blocking agents Clonidine discontinued yesterday Continue telemetry monitoring Continue to monitor blood pressure. Patient with slightly elevated blood pressures today. No changes to blood pressure regimen today. Further recommendations pending patient course
[2023-10-10] MEDS: predniSONE 50 MG TAB PO SCH (21:59)
--- NOTE | 2023-10-11 07:31 | P.PN ---
Subjective Progress Note Date: 10/10/23 Principal diagnosis: Reason for follow-up is urinary tract infection Patient is a 73-year-old male with a past medical history significant for atrial fibrillation hypertension hyperlipidemia reflux Crohn's disease and history of recurrent UTI currently on IV Rocephin in the outpatient setting presenting to the hospital with worsening of kidney function also noticed to have a positive UA concerning for persistent UTI. On today's evaluation that is 10/10/2023, Patient is afebrile patient is currently on room air and denies having any shortness of breath, the patient denies any chest pain or cough, the patient denies any nausea vomiting did not have any abdominal pain and no diarrhea, still complaining of weakness and not feeling well. No new labs has been obtained today urine culture has been negative Objective - Vital Signs Vital signs: Vital Signs Temp 97.3 F L 10/10/23 09:15 Pulse 58 L 10/10/23 09:15 Resp 16 10/10/23 09:15 BP 173/77 10/10/23 09:15 Pulse Ox 95 10/10/23 09:15 FiO2 Intake & Output 10/09/23 10/10/23 10/10/23 18:59 06:59 18:59 Intake Total 236 Output Total 1000 1550 Balance -764 -1550 Intake: Oral 236 Output: Urine 1000 1550 Other: Voiding Method Indwelling Catheter Indwelling Catheter Indwelling Catheter - Exam GENERAL DESCRIPTION: An elderly male lying in bed in no distress RESPIRATORY SYSTEM: Unlabored breathing , decreased breath sounds at bases HEART: S1 S2 regular rate and rhythm , ABDOMEN: Soft , no tenderness EXTREMITIES: No edema feet - Labs CBC & Chem 7: 10/09/23 06:41 10/09/23 06:41 Assessment and Plan (1) Urinary tract infection Current Visit: No Status: Acute Code(s): N39.0 - URINARY TRACT INFECTION, SITE NOT SPECIFIED SNOMED Code(s): 90092067 Plan: 1patient presented to the hospital with abnormal kidney function in this patient noticed to have elevated creatinine and potassium patient currently undergoing treatment for pyelonephritis and concern for possible prostatitis with outpatient IV Rocephin still have significantly positive urine 2-urine culture has been negative so far 3-patient care has been discussed with the urology as the patient recently did have a cystoscopy in May not recommending a repeat cystoscopy keeping in mind his history of extremity bowel disease and a question of possible colovesical fistula, CT does show evidence of fistula radiology, discussed in detail with the CT/radiology we did ordered a CT cystogram which does not need IV contrast administration, this could be possibly completed in the a.m. as the patient did the prep as per discussion with the nurse tech, continue with Rocephin questions were answered Dictation was produced using [employer] dictation software. please excuse any grammatical, word or spelling errors. Time with Patient: Less than 30
[2023-10-11 08:32] LABS: HCT 28.8 % (39.0-53.0); HGB 8.3 gm/dL (13.0-17.5); Hypochromasia Marked; MCH 28.2 pg (25.0-35.0); MCV 97.3 fL (80.0-100.0); Mean Platelet Volume 9.1; Platelet Count 211 k/uL (150-450); RBC 2.96 m/uL (4.30-5.90); RDW 13.9 % (11.5-15.5); WBC 7.1 k/uL (3.8-10.6)
[2023-10-11 08:54] LABS: ALT 17 U/L (4-49); AST 25 U/L (17-59); African American GFR (CKD) 32 (>60 ml/min/1.73 sqM); Albumin 2.4 g/dL (3.5-5.0); Alkaline Phosphatase 94 U/L (38-126); Anion Gap 5 mmol/L; Blood Urea Nitrogen 33 mg/dL (9-20); Carbon Dioxide 17 mmol/L (22-30); Chloride 111 mmol/L (98-107); Glucose 110 mg/dL (74-99); Non-African American GFR(CKD) 28 (>60 ml/min/1.73 sqM); Potassium 5.5 mmol/L (3.5-5.1); Sodium 133 mmol/L (137-145); Total Bilirubin 0.3 mg/dL (0.2-1.3); Total Protein 5.7 g/dL (6.3-8.2)
[2023-10-11] MEDS: diphenhydrAMINE 50 MG CAP PO ONE (09:07)
--- NOTE | 2023-10-11 09:15 | P.PN ---
Subjective Progress Note Date: 10/11/23 This is a 73-year-old male who presented to the emergency department after being sent from our office regarding abnormal labs. Patient had some outpatient lab work done which showed hyperkalemia and he was sent to the emergency room for further evaluation. Patient has been dealing with a chronic UTI and has been on IV antibiotics as an outpatient. Potassium on admission was 6.7, BUN 67 and creatinine 4.7 on admission. Patient reports he has been feeling more tired at home. He reports his urine has been more of a milky consistency. Nair catheter was inserted on admission and reportedly had an 800 mL output. Infectious disease and nephrology have been consulted. Further medical history as noted below. 10/10/2023 Patient seen and examined laying in bed comfortably. He reports fatigue and weakness. Kidney function is slowly improving, he remains on sodium bicarb. CT of the abdomen showing possible colovesical fistula, patient will have possible cystogram today. 10/11/2023 Patient seen and evaluated laying in bed this morning. He continues to report weakness. Kidney function continues to improve. Discussion between infectious disease and urology decided upon a CT cystogram that will be completed today. Objective - Vital Signs Vital signs: Vital Signs Temp 97.8 F 10/11/23 08:55 Pulse 54 L 10/11/23 08:55 Resp 16 10/11/23 08:55 BP 156/66 10/11/23 08:55 Pulse Ox 94 L 10/11/23 08:55 FiO2 Intake & Output 10/10/23 10/11/23 10/11/23 18:59 06:59 18:59 Intake Total 240 Output Total 187 1900 Balance -1635 -1900 Intake: Oral 240 Output: Urine 1874 1900 Other: Voiding Method Indwelling Catheter Indwelling Catheter # Bowel Movements 1 - Constitutional General appearance: Present: cooperative, no acute distress, thin - EENT Eyes: Present: PERRLA - Neck Neck: Present: normal ROM. Absent: lymphadenopathy, rigidity - Respiratory Respiratory: bilateral: CTA - Cardiovascular Heart sounds: normal: S1, S2 - Gastrointestinal General gastrointestinal: Present: soft. Absent: tenderness - Integumentary Integumentary: Present: normal, normal turgor - Musculoskeletal Musculoskeletal: Present: generalized weakness - Psychiatric Psychiatric: Present: A&O x's 3 - Labs CBC & Chem 7: 10/11/23 07:12 10/11/23 07:12 Labs: Abnormal Lab Results - Last 24 Hours (Table) 10/11/23 10/11/23 Range/Units 07:12 07:12 RBC 2.96 L (4.30-5.90) m/uL Hgb 8.3 L (13.0-17.5) gm/dL Hct 28.8 L (39.0-53.0) % MCHC 29.0 L (31.0-37.0) g/dL Sodium 133 L (137-145) mmol/L Potassium 5.5 H (3.5-5.1) mmol/L Chloride 111 H (98-107) mmol/L Carbon Dioxide 17 L (22-30) mmol/L BUN 33 H (9-20) mg/dL Creatinine 2.26 H (0.66-1.25) mg/dL Glucose 110 H (74-99) mg/dL Calcium 8.0 L (8.4-10.2) mg/dL Total Protein 5.7 L (6.3-8.2) g/dL Albumin 2.4 L (3.5-5.0) g/dL Assessment and Plan (1) Acute kidney injury superimposed on CKD Current Visit: Yes Status: Acute Code(s): N17.9 - ACUTE KIDNEY FAILURE, UNSPECIFIED; N18.9 - CHRONIC KIDNEY DISEASE, UNSPECIFIED SNOMED Code(s): 82204522 (2) Chronic UTI Current Visit: Yes Status: Acute Code(s): N39.0 - URINARY TRACT INFECTION, SITE NOT SPECIFIED SNOMED Code(s): 552480251 (3) Hyperkalemia Current Visit: Yes Status: Acute Code(s): E87.5 - HYPERKALEMIA SNOMED Code(s): 99448862 (4) BPH (benign prostatic hyperplasia) Current Visit: No Status: Acute Code(s): N40.0 - BENIGN PROSTATIC HYPERPLASIA WITHOUT LOWER URINRY TRACT SYMP SNOMED Code(s): 567037877 (5) Chronic anemia Current Visit: No Status: Acute Code(s): D64.9 - ANEMIA, UNSPECIFIED SNOMED Code(s): 241890448 (6) History of atrial fibrillation Current Visit: No Status: Acute Code(s): Z86.79 - PERSONAL HISTORY OF OTHER DISEASES OF THE CIRCULATORY SYSTEM SNOMED Code(s): 489088960 (7) Hx of Crohn's disease Current Visit: No Status: Acute Code(s): Z87.19 - PERSONAL HISTORY OF OTHER DISEASES OF THE DIGESTIVE SYSTEM SNOMED Code(s): 602622964037115 (8) Hypertension Current Visit: No Status: Acute Code(s): I10 - ESSENTIAL (PRIMARY) HYPERTENSION SNOMED Code(s): 68445772 (9) Weakness Current Visit: No Status: Acute Code(s): R53.1 - WEAKNESS SNOMED Code(s): 53585171 Plan: Check CBC and CMP in the morning. Appreciate multiple consultants. CT cystogram planned for today Consult dietitian regarding renal diet education for patient Patient seen and evaluated by nurse practitioner, physician in agreement with plan
--- NOTE | 2023-10-11 10:57 | CT ---
EXAMINATION TYPE: CT Cystogram DATE OF EXAM: 10/11/2023 COMPARISON: 10/08/2023 HISTORY: Recurrent UTI, ?Fistula CT DLP: 512.3 mGycm CONTRAST: Contrast was instilled into the urinary bladder a retrograde manner. Unenhanced CT of the pelvis was performed. FINDINGS: Nair catheter is noted within the lumen of the urinary bladder. Contrast is seen within the colon fr om recent CT of 10/08/2023. There is mild urinary bladder wall thickening circumferentially which may reflect underlying nonspecific cystitis. There is no CT evidence to suggest fistulous communication a t this time. No evidence for mass. Renal calculus lower pole right kidney. Intrapelvic vascular calci fications. No evidence of pelvic mass or adenopathy. Visualized gastrointestinal tract appears to be of normal caliber. IMPRESSION: 1. There is mild urinary bladder wall thickening circumferentially which may reflect underlying nonsp ecific cystitis. There is no CT evidence to suggest fistulous communication at this time.
--- NOTE | 2023-10-11 16:35 | P.PN ---
Subjective Progress Note Date: 10/11/23 Principal diagnosis: Reason for follow-up is urinary tract infection Patient is a 73-year-old male with a past medical history significant for atrial fibrillation hypertension hyperlipidemia reflux Crohn's disease and history of recurrent UTI currently on IV Rocephin in the outpatient setting presenting to the hospital with worsening of kidney function also noticed to have a positive UA concerning for persistent UTI. On today's evaluation that is 10/11/2023, patient has been afebrile, patient is breathing comfortably and is currently on room air, patient denies having any significant cough no chest pain shortness of breath, patient denies nausea vomiting or diarrhea and no abdominal pain. Patient white count is 7.1, creatinine is 2.26 potassium is 5.5 Objective - Vital Signs Vital signs: Vital Signs Temp 97.8 F 10/11/23 08:55 Pulse 61 10/11/23 14:57 Resp 16 10/11/23 14:57 BP 135/75 10/11/23 11:32 Pulse Ox 94 L 10/11/23 11:32 FiO2 Intake & Output 10/10/23 10/11/23 10/11/23 18:59 06:59 18:59 Intake Total 240 120 Output Total 1875 1900 Balance -1635 -1900 120 Intake: Oral 240 120 Output: Urine 1874 1900 Other: Voiding Method Indwelling Catheter Indwelling Catheter Indwelling Catheter # Bowel Movements 1 - Exam GENERAL DESCRIPTION: An elderly male lying in bed in no distress RESPIRATORY SYSTEM: Unlabored breathing , decreased breath sounds at bases HEART: S1 S2 regular rate and rhythm , ABDOMEN: Soft , no tenderness EXTREMITIES: No edema feet - Labs CBC & Chem 7: 10/11/23 07:12 10/11/23 07:12 Labs: Abnormal Lab Results - Last 24 Hours (Table) 10/11/23 10/11/23 Range/Units 07:12 07:12 RBC 2.96 L (4.30-5.90) m/uL Hgb 8.3 L (13.0-17.5) gm/dL Hct 28.8 L (39.0-53.0) % MCHC 29.0 L (31.0-37.0) g/dL Sodium 133 L (137-145) mmol/L Potassium 5.5 H (3.5-5.1) mmol/L Chloride 111 H (98-107) mmol/L Carbon Dioxide 17 L (22-30) mmol/L BUN 33 H (9-20) mg/dL Creatinine 2.26 H (0.66-1.25) mg/dL Glucose 110 H (74-99) mg/dL Calcium 8.0 L (8.4-10.2) mg/dL Total Protein 5.7 L (6.3-8.2) g/dL Albumin 2.4 L (3.5-5.0) g/dL Assessment and Plan (1) Urinary tract infection Current Visit: No Status: Acute Code(s): N39.0 - URINARY TRACT INFECTION, SITE NOT SPECIFIED SNOMED Code(s): 51855403 Plan: 1patient presented to the hospital with abnormal kidney function in this patient noticed to have elevated creatinine and potassium patient currently u ndergoing treatment for pyelonephritis and concern for possible prostatitis with outpatient IV Rocephin still have significantly positive urine 2-urine culture has been negative so far 3-patient care has been discussed with the urology as the patient recently did have a cystoscopy in May not recommending a repeat cystoscopy keeping in mind his history of extremity bowel disease and a question of possible colovesical fistula, CT does show evidence of fistula radiology, patient did have a CT cystogram did not show any evidence of fistula mild cystitis, patient has received more than 4 to 5 weeks of IV antibiotic therapy with a culture negative I am not recommending any IV antibiotic on discharge PICC line should be discontinued patient and has multiple questions concerns also been answered in layman terms Dictation was produced using [facility] dictation software. please excuse any g rammatical, word or spelling errors. Time with Patient: Less than 30
--- NOTE | 2023-10-12 08:54 | P.PN ---
Subjective Principal diagnosis: Acute kidney injury with hyperkalemia. Hypertensive nephrosclerosis. Patient is 73-year-old white male with opiate dependence history and Crohn's colitis who came in with hyperkalemia and acute kidney injury with chronic UTI. Appreciate multiple consultants input. He still feels quite poorly. Potassium has improved. Will check appropriate laboratories tomorrow. History of multifactorial anemia. Magnesium is low he is now on protocol. Hyperkalemia is noted. Sinus bradycardia but hypertension is also noted. The patient since has had 2-second pause. However the patient is asymptomatic. Objective - Vital Signs Vital signs: Vital Signs Temp 98.0 F 10/12/23 08:20 Pulse 48 L 10/12/23 08:20 Resp 16 10/12/23 08:20 BP 160/79 10/12/23 08:20 Pulse Ox 96 10/12/23 08:20 FiO2 Intake & Output 10/11/23 10/12/23 10/12/23 18:59 06:59 18:59 Intake Total 360 118 Output Total 1100 1250 Balance -740 -1250 118 Intake: Oral 360 118 Output: Urine 1100 1250 Other: Voiding Method Indwelling Catheter Indwelling Catheter Indwelling Catheter - Labs CBC & Chem 7: 10/11/23 07:12 10/11/23 07:12 Labs: Abnormal Lab Results - Last 24 Hours (Table) 10/11/23 Range/Units 07:12 Sodium 133 L (137-145) mmol/L Potassium 5.5 H (3.5-5.1) mmol/L Chloride 111 H (98-107) mmol/L Carbon Dioxide 17 L (22-30) mmol/L BUN 33 H (9-20) mg/dL Creatinine 2.26 H (0.66-1.25) mg/dL Glucose 110 H (74-99) mg/dL Calcium 8.0 L (8.4-10.2) mg/dL Total Protein 5.7 L (6.3-8.2) g/dL Albumin 2.4 L (3.5-5.0) g/dL Assessment and Plan (1) Acute kidney injury superimposed on CKD Current Visit: Yes Status: Acute Code(s): N17.9 - ACUTE KIDNEY FAILURE, UNSPECIFIED; N18.9 - CHRONIC KIDNEY DISEASE, UNSPECIFIED SNOMED Code(s): 66138000 (2) Chronic UTI Current Visit: Yes Status: Acute Code(s): N39.0 - URINARY TRACT INFECTION, SITE NOT SPECIFIED SNOMED Code(s): 633908493 (3) Atrial fibrillation Current Visit: No Status: Acute Code(s): I48.91 - UNSPECIFIED ATRIAL FIBRILLATION SNOMED Code(s): 48072533 (4) Chronic anemia Current Visit: No Status: Acute Code(s): D64.9 - ANEMIA, UNSPECIFIED SNOMED Code(s): 755519133 (5) Crohns disease Current Visit: No Status: Acute Code(s): K50.90 - CROHN'S DISEASE, UNSPECIFIED, WITHOUT COMPLICATIONS SNOMED Code(s): 05387906 (6) GERD (gastroesophageal reflux disease) Current Visit: No Status: Acute Code(s): K21.9 - GASTRO-ESOPHAGEAL REFLUX DISEASE WITHOUT ESOPHAGITIS SNOMED Code(s): 116859501 (7) History of Clostridium difficile colitis Current Visit: No Status: Acute Code(s): Z86.19 - PERSONAL HISTORY OF OTHER INFECTIOUS AND PARASITIC DISEASES SNOMED Code(s): 769982925
[2023-10-12 10:38] LABS: HCT 25.5 % (39.0-53.0); HGB 7.9 gm/dL (13.0-17.5); Hypochromasia Marked; MCH 29.2 pg (25.0-35.0); MCV 94.2 fL (80.0-100.0); Platelet Count 204 k/uL (150-450); RBC 2.71 m/uL (4.30-5.90); RDW 13.8 % (11.5-15.5)
[2023-10-12 10:49] LABS: ALT 13 U/L (4-49); AST 15 U/L (17-59); African American GFR (CKD) 25 (>60 ml/min/1.73 sqM); Albumin 2.5 g/dL (3.5-5.0); Alkaline Phosphatase 84 U/L (38-126); Anion Gap 8 mmol/L; Blood Urea Nitrogen 43 mg/dL (9-20); Carbon Dioxide 18 mmol/L (22-30); Chloride 108 mmol/L (98-107); Glucose 122 mg/dL (74-99); Non-African American GFR(CKD) 21 (>60 ml/min/1.73 sqM); Potassium 4.9 mmol/L (3.5-5.1); Sodium 134 mmol/L (137-145); Total Bilirubin 0.2 mg/dL (0.2-1.3); Total Protein 5.8 g/dL (6.3-8.2)
--- NOTE | 2023-10-12 12:26 | P.PN ---
Subjective patient is seen for follow-up for acute kidney injury. Renal function had improved with creatinine down to 2.2 from 3.9 on initial admission. Serum creatinine has increased back to 2.8 today. Currently on IV fluids at 50 mL an hour 24 hour urine output at 3.7 L. No significant complaints today. CT cystogram did not show any evidence of colovesicle fistula. Nair catheter was removed this morning. No hypotension noted. hemoglobin at 7.9 g/dL. Objective - Vital Signs Vital signs: Vital Signs Temp 98.0 F 10/12/23 08:20 Pulse 48 L 10/12/23 08:20 Resp 16 10/12/23 08:20 BP 160/79 10/12/23 08:20 Pulse Ox 96 10/12/23 08:20 FiO2 Intake & Output 10/11/23 10/12/23 10/12/23 18:59 06:59 18:59 Intake Total 360 118 Output Total 1100 1250 Balance -740 -1250 118 Intake: Oral 360 118 Output: Urine 1100 1250 Other: Voiding Method Indwelling Catheter Indwelling Catheter Indwelling Catheter - Exam on examination patient is comfortable awake no acute distress. Examination of the heart S1 and S2 Examination of the lungs bilateral breath sounds are heard Abdomen is soft nontender Examination of lower extremities shows trace edema. 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 Acute kidney injury secondary to ATN . Also component of urinary retention. Creatinine 3.91 on admission - improved to 2.2 and has increased back to 2.8 today. Nair catheter was removed today. No hypotension noted. Hemoglobin at 7.9 g/dL. No nephrotoxic agents notified. 2. Mild right hydronephrosis noted on kidney ultrasound with nonobstructive nephrolithiasis. Urology following. On Flomax. 3. Hyperkalemia secondary to acute kidney injury and metabolic acidosis. Improved with medical management. 4. Metabolic acidosis secondary to acute kidney injury and GI losses. Status post bicarb drip. On oral bicarb. 5. Nephrolithiasis secondary to Crohn's disease. 6. Recurrent urinary tract infections. On antibiotics. 7. History of ureteral stents status post removal. 8. Chronic kidney disease stage IIIb with baseline creatinine 1.7-2. Etiology is obstructive uropathy. 9. Hypertension with chronic kidney disease. Controlled. 10. Acute blood loss anemia with hemoglobin 6.7, status post packed RBCs transfusion. Hemoglobin 7.9 today. Plan: continue with saline. It was decreased to 50 mL an hour yesterday. They may still be underlying component of obstructive uropathy and patient may need to have the Nair catheter replaced. Will discuss with urology. Repeat labs in a.m. Continue with sodium bicarb Continue with Aranesp
--- NOTE | 2023-10-12 17:51 | P.PN ---
Subjective Progress Note Date: 10/12/23 Principal diagnosis: Reason for follow-up is urinary tract infection Patient is a 73-year-old male with a past medical history significant for atrial fibrillation hypertension hyperlipidemia reflux Crohn's disease and history of recurrent UTI currently on IV Rocephin in the outpatient setting presenting to the hospital with worsening of kidney function also noticed to have a positive UA concerning for persistent UTI. On today's evaluation that is 10/12/2023, Patient is afebrile this morning and denies any chills, patient mention breathing comfortably and is currently on room air, patient denies any chest pain occasional cough patient denies any abdominal pain no diarrhea no nausea no vomiting, the patient Nair catheter has been discontinued patient be able to urinate. Patient white count 9.0, creatinine 2.80 Objective - Vital Signs Vital signs: Vital Signs Temp 98.0 F 10/12/23 08:20 Pulse 74 10/12/23 12:25 Resp 16 10/12/23 12:25 BP 176/71 10/12/23 12:25 Pulse Ox 98 10/12/23 12:25 FiO2 Intake & Output 10/11/23 10/12/23 10/12/23 18:59 06:59 18:59 Intake Total 360 118 Output Total 1100 1250 Balance -740 -1250 118 Intake: Oral 360 118 Output: Urine 1100 1250 Other: Voiding Method Indwelling Catheter Indwelling Catheter Indwelling Catheter # Voids 2 - Exam GENERAL DESCRIPTION: An elderly male lying in bed in no distress RESPIRATORY SYSTEM: Unlabored breathing , decreased breath sounds at bases HEART: S1 S2 regular rate and rhythm , ABDOMEN: Soft , no tenderness EXTREMITIES: No edema feet - Labs CBC & Chem 7: 10/12/23 09:48 10/12/23 09:48 Labs: Abnormal Lab Results - Last 24 Hours (Table) 10/12/23 10/12/23 Range/Units 09:48 09:48 RBC 2.71 L (4.30-5.90) m/uL Hgb 7.9 L (13.0-17.5) gm/dL Hct 25.5 L (39.0-53.0) % Sodium 134 L (137-145) mmol/L Chloride 108 H (98-107) mmol/L Carbon Dioxide 18 L (22-30) mmol/L BUN 43 H (9-20) mg/dL Creatinine 2.80 H (0.66-1.25) mg/dL Glucose 122 H (74-99) mg/dL Calcium 8.0 L (8.4-10.2) mg/dL AST 15 L (17-59) U/L Total Protein 5.8 L (6.3-8.2) g/dL Albumin 2.5 L (3.5-5.0) g/dL Assessment and Plan (1) Urinary tract infection Current Visit: No Status: Acute Code(s): N39.0 - URINARY TRACT INFECTION, SITE NOT SPECIFIED SNOMED Code(s): 38058535 Plan: 1patient presented to the hospital with abnormal kidney function in this patient noticed to have elevated creatinine and potassium patient currently u ndergoing treatment for pyelonephritis and concern for possible prostatitis with outpatient IV Rocephin still have significantly positive urine 2-urine culture has been negative so far 3-patient care has been discussed with the urology as the patient recently did have a cystoscopy in May not recommending a repeat cystoscopy keeping in mind his history of extremity bowel disease and a question of possible colovesical fistula, CT does show evidence of fistula radiology, patient did have a CT cystogram did not show any evidence of fistula mild cystitis, patient has received more than 4 to 5 weeks of IV antibiotic therapy with a culture negative I am not recommending any IV antibiotic on discharge 4-recommended to schedule PICC line on discharge Dictation was produced using [employer] dictation software. please excuse any grammatical, word or spelling errors. Time with Patient: Less than 30
[2023-10-13 08:49] VITALS: BP 177/65; PULSE 56; RESP 16; TEMP 97.5
--- NOTE | 2023-10-13 09:10 | P.DS ---
Providers Date of admission: 10/03/23 23:31 Attending physician: Minh Saldaña Consults: 10/03/23 23:09 Consult Physician Routine Consulting Provider: Twin Raymundo Consult Reason/Comments: Hyperkalemia, acute kidney injury Do you want consulting provider notified?: Yes 10/03/23 23:29 Consult Physician Routine Consulting Provider: Corry Mcclure Consult Reason/Comments: chronic uti Do you want consulting provider notified?: Yes 10/04/23 10:31 Consult Physician Routine Consulting Provider: Donovan Prather Consult Reason/Comments: hydro, uti's Do you want consulting provider notified?: Yes 10/12/23 19:27 Consult Physician Routine Consulting Provider: Edd Clement Consult Reason/Comments: reevaluate, hydronephrosis, uti Do you want consulting provider notified?: Yes, Notify in am 10/12/23 19:28 Consult Physician Routine Consulting Provider: Weston Callejas Consult Reason/Comments: reevaluate bradycardia, clearence for discharge. Do you want consulting provider notified?: Yes, Notify in am Primary care physician: Minh Saldaña - Discharge Diagnosis(es) (1) Acute kidney injury superimposed on CKD Current Visit: Yes Status: Acute (2) Chronic UTI Current Visit: Yes Status: Acute (3) Hyperkalemia Current Visit: Yes Status: Acute (4) BPH (benign prostatic hyperplasia) Current Visit: No Status: Acute (5) Chronic anemia Current Visit: No Status: Acute (6) History of atrial fibrillation Current Visit: No Status: Acute (7) Hx of Crohn's disease Current Visit: No Status: Acute (8) Hypertension Current Visit: No Status: Acute (9) Weakness Current Visit: No Status: Acute Hospital Course: This is a 73-year-old male who originally presented to the emergency department after abnormal outpatient labs in our office which revealed hyperkalemia. Pat ieradha has been dealing with a chronic UTI and on IV antibiotics as an outpatient. Kidney function has also been declining. Patient seen and evaluated by nephrology and infectious disease during admission. Infectious diseases recommending discontinuing Rocephin. Nephrology recommending continuing sodium bicarb. Patient had a CT cystogram was negative. Patient seen and evaluated by physical therapy who are recommending he go home with home care. Patient may be discharged today if cleared by nephrology. Patient seen and evaluated by nurse practitioner, physician in agreement with plan. Patient Condition at Discharge: Stable Plan - Discharge Summary New Discharge Prescriptions: New Sodium Bicarbonate Tab 1,300 mg PO BID 30 Days #120 tab Continue amLODIPine [Norvasc] 10 mg PO DAILY hydrALAZINE HCL [Apresoline] 75 mg PO TID #90 tab Buprenorphine HCl/Naloxone HCl [Suboxone 4 mg-1 mg Sl Film] 1 film SL BID Adalimumab [Humira(Cf) Pen] 40 mg SQ Q14D Omeprazole [PriLOSEC] 20 mg PO BID Tamsulosin [Flomax] 0.4 mg PO BID Darbepoetin Michael [Aranesp] 40 mcg SQ Q7D #4 each Magnesium Oxide [Mag-Ox] 400 mg PO BID #60 tab Discontinued Sodium Bicarbonate Tab 650 mg PO TID #90 tab cefTRIAXone [Rocephin] 2 gm IVPB DAILY Discharge Medication List amLODIPine [Norvasc] 10 mg PO DAILY 10/18/20 [History] Adalimumab [Humira(Cf) Pen] 40 mg SQ Q14D 08/16/22 [History] Omeprazole [PriLOSEC] 20 mg PO BID 05/19/23 [History] Tamsulosin [Flomax] 0.4 mg PO BID 07/29/23 [History] Darbepoetin Michael [Aranesp] 40 mcg SQ Q7D #4 each 09/07/23 [Rx] Magnesium Oxide [Mag-Ox] 400 mg PO BID #60 tab 09/07/23 [Rx] hydrALAZINE HCL [Apresoline] 75 mg PO TID #90 tab 09/07/23 [Rx] Buprenorphine HCl/Naloxone HCl [Suboxone 4 mg-1 mg Sl Film] 1 film SL BID 09/09/23 [History] Sodium Bicarbonate Tab 1,300 mg PO BID 30 Days #120 tab 10/13/23 [Rx] Follow up Appointment(s)/Referral(s): Minh Saldaña MD [Primary Care Provider] - 3 Days Activity/Diet/Wound Care/Special Instructions: please make sure patient meets with plan examiner regarding renal diet before discharge. Discharge Disposition: HOME WITH HOME HEALTH SERVICES
[2023-10-13 10:22] LABS: ALT 13 U/L (4-49); AST 19 U/L (17-59); African American GFR (CKD) 32 (>60 ml/min/1.73 sqM); Albumin 2.3 g/dL (3.5-5.0); Alkaline Phosphatase 63 U/L (38-126); Anion Gap 7 mmol/L; Blood Urea Nitrogen 44 mg/dL (9-20); Carbon Dioxide 16 mmol/L (22-30); Chloride 110 mmol/L (98-107); Glucose 89 mg/dL (74-99); Non-African American GFR(CKD) 28 (>60 ml/min/1.73 sqM); Potassium 5.1 mmol/L (3.5-5.1); Sodium 133 mmol/L (137-145); Total Bilirubin 0.2 mg/dL (0.2-1.3); Total Protein 5.4 g/dL (6.3-8.2)
--- NOTE | 2023-10-13 10:52 | P.PN ---
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 Patient is currently on IV antibiotics through PICC line for pyelonephritis as an outpatient. We have been asked to evaluate the patient for first-degree heart block, symptomatic bradycardia, and sinus pauses. Patient is not on beta-vonda or any AV justin blocking agents at home. Patient was seen by cardiology during hospitalization in August at which time consult was for ruling out ST elevation. Patient was to follow-up with Dr. Murray at that time. However, patient has not had a follow-up appointment in the office. Patient presented to the hospital on 10/03/2023 due to abnormal labs. Patient is followed by nephrology, urology, and infectious disease. Patient gives history that he has had 3 hospitalizations for basically the same thing with kidney stones, infected kidney stone, urinary tract infection and pyelonephritis. He denies having any history of coronary artery disease and no history of CHF. He has never been told he had atrial fibrillation. He denies having any chest pain and no shortness of breath. No palpitations or pounding in his chest. He states his lower extremity edema on and off. Regarding Crohn's disease. He denies any recent bleeding. He denies any caffeine intake and no alcohol use. No abdominal pain. Regarding chronic kidney disease, patient states he has been diagnosed about 6 to 7 months ago. No history of diabetes. No smoking history. Blood pressure 96/50, heart rate 50, pulse ox 94% on room air. Patient was on clonidine which is subsequently been discontinued. EKG: Performed on 10/03 revealed sinus bradycardia with a first-degree AV block, IVCD. On telemetry, heart rate has been consistently in the 40s-50s. Laboratory studies: WBC 9, hemoglobin 7.1. Initial potassium 6.5 now 5.1. Initial CO2 8 now 21. Initial BUN 60 repeat 40. Creatinine 3.91 and repeat 2.53. Magnesium 1.4. Home cardiac medications: Amlodipine 10 mg daily, hydralazine 75 mg 3 times daily, magnesium oxide 400 mg twice daily, also on Humira. Echocardiogram performed 08/18/2022 revealed left ventricular systolic function borderline normal at 50 to 55%. Mild mitral and tricuspid regurgitation with no evidence of pulmonary hypertension. Mild to moderate aortic regurgitation with calcified aortic valve. 10/08/2023 Patient examined this morning at the bedside. Patient currently denies chest pain or pressure. He denies shortness of breath. Patient's heart rate remains in the 50s. He denies dizziness or lightheadedness. Systolic blood pressure range between [id number]. Echocardiogram completed revealing ejection fraction 55 to 60%, mild MR, mild , moderate AR, mild TR. 10/09/2023 Patient examined this morning at bedside. Patient states he still generally feels unwell. He denies any chest pain or pressure. Denies any shortness of breath. Patient's heart rates are 50s60s. His blood pressure this morning is elevated with a systolic in the 190s. Hemoglobin today 7.9. Creatinine stable at 2.41. 10/10/2023 Patient examined this morning at the bedside. Patient currently denies chest pain or pressure. He denies shortness of breath. Patient's heart rate remained stable with a heart rate in the 60s. Patient's blood pressure improved with a systolic range between [id number]. Blood pressure this morning before his morning medications 173/77. 10/12 patient seen and examined. Patient overall is feeling well. Anxious to go home. Denies any chest pain or pressure. He is not on telemetry however heart rates event in the 40s to 60s. He does admit to some dyspnea with moderate exertion however we'll have to stop and then can go back to exert himself. We discussed possibly performing outpatient stress test to evaluate for chronotropic response as well as any inducible ischemia. Blood pressure elevated in the 150s to 170s over states normally his this level and sometimes will get lightheaded if he stands up too quickly. PHYSICAL EXAM: VITAL SIGNS: Reviewed. GENERAL: Well-developed in no acute distress. NECK: Supple. No JVD or thyromegaly LUNGS: Respirations even and unlabored. Lungs essentially clear to auscultation bilaterally. HEART: Regular rate and rhythm. S1 and S2 heard. + systolic murmur EXTREMITIES: Normal range of motion. No clubbing or cyanosis. Peripheral pulses intact. No lower extremity edema ASSESSMENT: Sinus bradycardia Acute kidney injury Mild right hydronephrosis followed by urology Severe hyperkalemia secondary to acute kidney injury Metabolic acidosis secondary to acute kidney injury Nephrolithiasis Crohn's disease Recurrent urinary tract infections, pyelonephritis and possible prostatitis followed by infectious disease Anemia of chronic disease History of SVT with previous ablation, 20 years ago per patient Hypertension PLAN: Continue to avoid any AV justin blocking agents Clonidine discontinued upon admission blood pressure not at goal however with some lightheaded episodes make slow adjustments especially with kidney disease. If continues to have lightheaded episodes consider outpatient monitor Given dyspnea with exertion consider outpatient stress test to evaluate for chronotropic incompetence as well as any inducible ischemia Patient however stable for discharge home with outpatient follow-up in 1-2 [facility]. Objective - Vital Signs Vital signs: Vital Signs Temp 97.5 F L 10/13/23 08:46 Pulse 56 L 10/13/23 08:46 Resp 16 10/13/23 08:46 BP 177/65 10/13/23 08:46 Pulse Ox 97 10/13/23 08:46 FiO2 Intake & Output 10/12/23 10/13/23 10/13/23 18:59 06:59 18:59 Intake Total 838 120 Output Total 847 383 Balance -9 -383 120 Intake: Oral 838 120 Output: Urine 650 200 Post Void Residual 197 183 Other: Voiding Method Indwelling Catheter Indwelling Catheter Toilet # Voids 2 - Labs CBC & Chem 7: 10/12/23 09:48 10/13/23 09:25 Labs: Abnormal Lab Results - Last 24 Hours (Table) 10/13/23 Range/Units 09:25 Sodium 133 L (137-145) mmol/L Chloride 110 H (98-107) mmol/L Carbon Dioxide 16 L (22-30) mmol/L BUN 44 H (9-20) mg/dL Creatinine 2.26 H (0.66-1.25) mg/dL Calcium 8.0 L (8.4-10.2) mg/dL Total Protein 5.4 L (6.3-8.2) g/dL Albumin 2.3 L (3.5-5.0) g/dL
--- NOTE | 2023-10-13 12:07 | P.PN ---
Subjective patient is seen for follow-up for acute kidney injury. Renal function had improved with creatinine was down to 2.2 from 3.9 on initial admission. Serum creatinine has increased back to 2.8 yesterday but back down to 2.2 today. Currently on IV fluids at 50 mL an hour 24 hour urine output at 3.7 L. No significant complaints today. CT cystogram did not show any evidence of colovesicle fistula. Nair catheter was removed yesterday and patient has not had any urine retention. No hypotension noted. hemoglobin at 7.9 g/dL. Objective - Vital Signs Vital signs: Vital Signs Temp 97.5 F L 10/13/23 08:46 Pulse 56 L 10/13/23 08:46 Resp 16 10/13/23 08:46 BP 177/65 10/13/23 08:46 Pulse Ox 97 10/13/23 08:46 FiO2 Intake & Output 10/12/23 10/13/23 10/13/23 18:59 06:59 18:59 Intake Total 838 120 Output Total 847 383 0 Balance -9 -383 120 Intake: Oral 838 120 Output: Gastric Drainage 0 Urine 650 200 0 Post Void Residual 197 183 Stool 0 Urine/Stool Mix 0 Oral Regurgitation 0 Other: Voiding Method Indwelling Catheter Indwelling Catheter Toilet # Voids 2 0 # Bowel Movements 0 - Exam on examination patient is comfortable awake no acute distress. Examination of the heart S1 and S2 Examination of the lungs bilateral breath sounds are heard Abdomen is soft nontender Examination of lower extremities shows trace edema. [employer] exam grossly intact - Labs CBC & Chem 7: 10/12/23 09:48 10/13/23 09:25 Labs: Abnormal Lab Results - Last 24 Hours (Table) 10/13/23 Range/Units 09:25 Sodium 133 L (137-145) mmol/L Chloride 110 H (98-107) mmol/L Carbon Dioxide 16 L (22-30) mmol/L BUN 44 H (9-20) mg/dL Creatinine 2.26 H (0.66-1.25) mg/dL Calcium 8.0 L (8.4-10.2) mg/dL Total Protein 5.4 L (6.3-8.2) g/dL Albumin 2.3 L (3.5-5.0) g/dL Assessment and Plan Assessment: 1. Acute kidney injury secondary to ATN . Also component of urinary retention. Creatinine 3.91 on admission - improved to 2.2 and has increased back to 2.8 but decreased again to 2.2 today.. Nair catheter was removed today. No hypotension noted. Hemoglobin at 7.9 g/dL. No nephrotoxic agents notified. 2. Mild right hydronephrosis noted on kidney ultrasound with nonobstructive nephrolithiasis. Urology following. On Flomax. 3. Hyperkalemia secondary to acute kidney injury and metabolic acidosis. Improved with medical management. 4. Metabolic acidosis secondary to acute kidney injury and GI losses. Status post bicarb drip. On oral bicarb. 5. Nephrolithiasis secondary to Crohn's disease. 6. Recurrent urinary tract infections. On antibiotics. 7. History of ureteral stents status post removal. 8. Chronic kidney disease stage IIIb with baseline creatinine 1.7-2. Etiology is obstructive uropathy. 9. Hypertension with chronic kidney disease. Controlled. 10. Acute blood loss anemia with hemoglobin 6.7, status post packed RBCs transfusion. Hemoglobin 7.9 on 10/12/2023 Plan: Patient can be discharged from nephrology standpoint. Follow-up as outpatient with nephrology and urology. Continue with sodium bicarb. He will need to continue with Aranesp as well. Follow-up in the office in about 1 week. Briefly discussed renal replacement therapy. No indication for dialysis at this point
--- NOTE | 2023-10-13 12:09 | P.PN ---
Subjective Progress Note Date: 10/13/23 Principal diagnosis: Renal calculi The patient has undergone ureteroscopic removal of bilateral ureteral calculi in the past year. Recent CT scan imaging shows bilateral nonobstructing renal calculi, with no evidence of hydronephrosis. There was concern of a possible colovesical fistula, but a CT cystogram was unremarkable. The Nair catheter is now out, and the patient is voiding spontaneously. Objective - Vital Signs Vital signs: Vital Signs Temp 97.8 F 10/12/23 19:55 Pulse 60 10/13/23 04:00 Resp 15 10/13/23 04:00 BP 156/67 10/13/23 04:00 Pulse Ox 95 10/13/23 04:00 FiO2 Intake & Output 10/12/23 10/12/23 10/13/23 06:59 18:59 06:59 Intake Total 838 Output Total 1250 847 383 Balance -1250 -9 -383 Intake: Oral 838 Output: Urine 1250 650 200 Post Void Residual 197 183 Other: Voiding Method Indwelling Catheter Indwelling Catheter Indwelling Catheter # Voids 2 - Constitutional General appearance: Present: average body habitus, cooperative - Labs CBC & Chem 7: 10/12/23 09:48 10/13/23 09:25 Labs: Abnormal Lab Results - Last 24 Hours (Table) 10/12/23 10/12/23 Range/Units 09:48 09:48 RBC 2.71 L (4.30-5.90) m/uL Hgb 7.9 L (13.0-17.5) gm/dL Hct 25.5 L (39.0-53.0) % Sodium 134 L (137-145) mmol/L Chloride 108 H (98-107) mmol/L Carbon Dioxide 18 L (22-30) mmol/L BUN 43 H (9-20) mg/dL Creatinine 2.80 H (0.66-1.25) mg/dL Glucose 122 H (74-99) mg/dL Calcium 8.0 L (8.4-10.2) mg/dL AST 15 L (17-59) U/L Total Protein 5.8 L (6.3-8.2) g/dL Albumin 2.5 L (3.5-5.0) g/dL Assessment and Plan (1) Kidney stone Status: Acute Code(s): N20.0 - CALCULUS OF KIDNEY SNOMED Code(s): 55124112 Plan: I have reviewed the patient's imaging. CT scan shows no evidence of hydronephrosis or colovesical fistula. Bladder wall thickening is nonspecific, and cystoscopy performed earlier this year showed no evidence of intravesical pathology. I do not recommend treatment of the non-obstructing renal calculi unless he becomes symptomatic.
== END 2023-10-13 11:48 | disposition home health service (06) | DRG 683 ==
LOC: EC 20:03 → 3SCARD 23:31
PROVIDERS: ADMIT Family Medicine; ATTEND Family Medicine
PROC: 30233N1 Transfusion of Nonautologous Red Blood Cells into Peripheral Vein, Percutaneous Approach (ICD-10-PCS; principal; 2023-10-07)
DX: N17.0 Acute kidney failure with tubular necrosis (principal); D62 Acute posthemorrhagic anemia; F11.20 Opioid dependence, uncomplicated; K50.90 Crohn's disease, unspecified, without complications; N39.0 Urinary tract infection, site not specified; E87.20 Acidosis, unspecified; K50.10 Crohn's disease of large intestine without complications; N13.6 Pyonephrosis; E87.5 Hyperkalemia; I12.9 Hypertensive chronic kidney disease with stage 1 through stage 4 chronic kidney disease, or unspecified chronic kidney disease; I48.91 Unspecified atrial fibrillation; N28.1 Cyst of kidney, acquired; N18.32 Chronic kidney disease, stage 3b; N20.0 Calculus of kidney; I44.0 Atrioventricular block, first degree; D63.1 Anemia in chronic kidney disease; E78.5 Hyperlipidemia, unspecified; E11.22 Type 2 diabetes mellitus with diabetic chronic kidney disease; F41.9 Anxiety disorder, unspecified; H91.90 Unspecified hearing loss, unspecified ear; I25.10 Atherosclerotic heart disease of native coronary artery without angina pectoris; R00.1 Bradycardia, unspecified; K21.00 Gastro-esophageal reflux disease with esophagitis, without bleeding; M06.9 Rheumatoid arthritis, unspecified; N32.89 Other specified disorders of bladder; R53.83 Other fatigue; R01.1 Cardiac murmur, unspecified; I08.3 Combined rheumatic disorders of mitral, aortic and tricuspid valves; N40.0 Benign prostatic hyperplasia without lower urinary tract symptoms; Z79.899 Other long term (current) drug therapy; Z86.19 Personal history of other infectious and parasitic diseases; Z87.440 Personal history of urinary (tract) infections; Z87.442 Personal history of urinary calculi; Z90.3 Acquired absence of stomach [part of]; Z98.42 Cataract extraction status, left eye; Z98.41 Cataract extraction status, right eye; Z91.041 Radiographic dye allergy status; Z88.1 Allergy status to other antibiotic agents
CPT/HCPCS: 36415; 51798; 72192; 74176; 76770; 80048; 80053; 81001; 82803; 83735; 84132; 85025; 85027; 86850; 86900; 86901; 86920; 87086; 93005; 93306; 94640; 96361; 96365; 96366; 96368; 96375; 96376; 99291

== ENCOUNTER 2023-11-16 13:01 | Inpatient (IN) | payer BC, MEDICARE ==
[2023-11-16 13:19] LABS: Glucose,Whole Blood 116 mg/dL (70-110)
[2023-11-16] MEDS: SODIUM CHLORIDE 0.9% 1,000 ML IV STA (14:02)
[2023-11-16] MEDS: SODIUM BICARB 8.4% 50 ML SYR (1 MEQ/ML) IV ONE (14:03)
[2023-11-16] MEDS: INSULIN REGULAR 100 UNIT/ML VIAL (IV) IV ONE (14:09)
[2023-11-16] MEDS: DEXTROSE 50% SYRINGE 50 ML IVP ONE (14:09)
[2023-11-16] MEDS: CALCIUM GLUCONATE IN NACL 1 GM in SALINE 1 100ML.BAG IVPB ONE (14:16)
[2023-11-16] MEDS: SODIUM ZIRCONIUM CYCLOSILICATE 10 GM PACKET PO ONE (14:19)
--- NOTE | 2023-11-16 14:45 | ED ---
General Adult HPI - General Source: patient, EMS, RN notes reviewed, old records reviewed Mode of arrival: EMS <Klever Stout - Last Filed: 11/16/23 14:49> <Kaye Fitch - Last Filed: 12/17/23 22:01> - General Chief complaint: Recheck/Abnormal Lab/Rx Stated complaint: abn labs Time Seen by Provider: 11/16/23 13:02 - History of Present Illness Initial comments: Patient is a 73-year-old male presents emergency department complaining of generalized weakness. Has been ongoing for weeks. Patient has a past medical history markable for atrial fibrillation, chronic renal disease, hypertension, anemia. Has a history of Crohn's disease as well. Presents as he was told to come due to abnormal labs. Is uncertain what was abnormal. It was either potassium or hemoglobin. Presents for further evaluation. Denies chest pain, abdominal pain, nausea, vomiting. Denies shortness of breath. Presents for further evaluation at this time. (Klever Stout) - Related Data Home Medications Medication Instructions Recorded Confirmed Tamsulosin [Flomax] 0.4 mg PO BID 07/29/23 11/16/23 Buprenorphine HCl/Naloxone HCl 1 film SL BID 09/09/23 11/16/23 [Suboxone 4 mg-1 mg Sl Film] Adalimumab [Humira Pen] 40 mg SQ Q14D 11/16/23 11/16/23 Ferrous Sulfate [Feosol] 325 mg PO DAILY 11/16/23 11/16/23 amLODIPine [Norvasc] 10 mg PO DAILY 11/16/23 11/16/23 cloNIDine HCL [Catapres] 0.1 mg PO BID 11/16/23 11/16/23 Previous Rx's Medication Instructions Recorded Magnesium Oxide [Mag-Ox] 400 mg PO BID #60 tab 09/07/23 Sodium Bicarbonate Tab 1,300 mg PO BID 30 Days #120 tab 10/13/23 Allergies Allergy/AdvReac Type Severity Reaction Status Date / Time Iodinated Contrast Media Allergy Anaphylaxis Verified 11/16/23 14:53 [Iodinated Contrast Media - IV Dye] Review of Systems ROS Other: All systems not noted in ROS Statement are negative. <Klever Stout - Last Filed: 11/16/23 14:49> ROS Other: All systems not noted in ROS Statement are negative. <Kaye Fitch - Last Filed: 12/17/23 22:01> ROS Statement: Those systems with pertinent positive or pertinent negative responses have been documented in the HPI. Review of Systems: CONST: Denies fever EYES: Denies blurry vision ENT: Denies nasal congestion C/V: Denies Chest pain RESP: Denies shortness of breath GI: Denies abdominal pain : Denies dysuria SKIN: Denies rash. MSK: Denies joint pain. NEURO: Denies headache (Klever Stout) Past Medical History Past Medical History: Atrial Fibrillation, Blood Disorder, Eye Disorder, GERD/Reflux, GI Bleed, Hearing Disorder / Deafness, Hyperlipidemia, Hypertension, Musculoskeletal Disorder, Pneumonia, Rheumatoid Arthritis (RA), Skin Disorder, Supraventricular Tachycardia (SVT) Additional Past Medical History / Comment(s): hx CROHN'S (takes tresa), IBS, chronic diarrhea, migraines-, hx ulcers, anemia, gout, kidney stones, psoriasis, bilateral tinnitis., pinched sciatic nerve, C-Diff 2017, neuropathy, COMPLICATED UTI PYELONEPHRITIS, HEART RATE NORMALLY 50'S History of Any Multi-Drug Resistant Organisms: C-DIFF, MRSA Date of last positivie culture/infection: stool MDRO Source:: 2017 Past Surgical History: Ablation, Bowel Resection, Cardiac Ablation, Cholecystectomy, Heart Catheterization, Hernia Repair, Joint Replacement, Orthopedic Surgery, Tonsillectomy Additional Past Surgical History / Comment(s): 1/3 of stomach removed (partial gastrectomy), ulcers, bowel resections, fecal transplant 2017, bilateral knee arthroscopic surgery, EGD/colonoscopies, R inguinal hernia repair, bilat cataract removal, TOTAL LEFT KNEE. MULTIPLE CYSTOS, PICC 05/11 Past Anesthesia/Blood Transfusion Reactions: Blood Transfusion Reaction, Motion Sickness Additional Past Anesthesia/Blood Transfusion Reaction / Comment(s): BLOOD TRANSFUSION- BROKE OUT IN HIVES age 21 Past Psychological History: Anxiety Smoking Status: Never smoker Past Alcohol Use History: None Reported, Occasional Past Drug Use History: None Reported - Past Family History Mother Family Medical History: No Reported History, Pulmonary Embolus Additional Family Medical History / Comment(s): AGE 73-IA, STROKE DURING CARATID PROCEDURE <Klever Stout - Last Filed: 11/16/23 14:49> General Exam <Klever Stout - Last Filed: 11/16/23 14:49> - General Exam Comments Initial Comments: General: Appears in no acute distress. Cachectic appearing. HEAD: Normal with no signs of head trauma. EYES: PERRLA, EOMI, conjunctiva normal, no discharge. ENT: Hearing grossly intact, normal oropharynx. RESPIRATORY: Clear breath sounds bilaterally. No wheezes, rales, or rhonchi. C/V: Regular rate and rhythm. S1 and S2 auscultated, no edema, peripheral pulses 2+ and intact throughout ABD: Abd is soft, nontender, nondistended EXT: Normal range of motion, no obvious deformity SKIN: No rashes or lesions observed on exposed skin. NEURO: Alert and oriented x 4. No focal deficits. (Klever Stout) Course Vital Signs 11/16/23 11/16/23 11/16/23 13:03 14:51 14:59 Temperature 97.4 F L Pulse Rate 71 78 82 Respiratory 18 Rate Blood Pressure 138/74 O2 Sat by Pulse 100 Oximetry 11/16/23 11/16/23 11/16/23 15:11 17:00 18:00 Temperature Pulse Rate 77 71 78 Respiratory 18 16 18 Rate Blood Pressure 135/88 146/59 150/68 O2 Sat by Pulse 97 98 98 Oximetry 11/16/23 11/16/23 20:16 21:42 Temperature 97.1 F L Pulse Rate 91 93 Respiratory 20 18 Rate Blood Pressure 131/81 119/98 O2 Sat by Pulse 96 100 Oximetry Medical Decision Making - EKG Data -: EKG Interpreted by Al <Klever Stout - Last Filed: 11/16/23 14:49> - Lab Data Result diagrams: 11/21/23 07:22 11/21/23 07:22 <Kaye Fitch - Last Filed: 12/17/23 22:01> - Medical Decision Making Was pt. sent in by a medical professional or institution (, PA, NURSING ASSISTANT, urgent care, hospital, or [facility]...) When possible be specific @ -No Did you speak to anyone other than the patient for history (EMS, parent, family, police, friend...)? What history was obtained from this source @ -No Did you review nursing and triage notes (agree or disagree)? Why? @ -I reviewed and agree with nursing and triage notes Were old charts reviewed (outside hosp., previous admission, EMS record, old EKG, old radiological studies, urgent care reports/EKG's, [facility] records)? Report findings @ -Old charts reviewed including previous EKG and current 1 has some dynamic changes consisting of peaked T waves and widened QRS. Differential Diagnosis (chest pain, altered mental status, abdominal pain women, abdominal pain men, vaginal bleeding, weakness, fever, dyspnea, syncope, headache, dizziness, GI bleed, back pain, seizure, CVA, palpatations, mental health, musculoskeletal)? @ -Differential Weakness: Hypoglycemia, shock, sepsis, hyponatremia, anemia, infection, IA, ETOH, adverse medicine reaction, overdose, stroke, this is not meant to be an all-inclusive list. EKG interpreted by me (3pts min.). @ -As above X-rays interpreted by me (1pt min.). @ -Pending CT interpreted by me (1pt min.). @ -None done U/S interpreted by me (1pt. min.). @ -None done What testing was considered but not performed or refused? (CT, X-rays, U/S, labs)? Why? @ -None What meds were considered but not given or refused? Why? @ -None Did you discuss the management of the patient with other professionals (professionals i.e. , PA, NURSING ASSISTANT, lab, RT, psych nurse, social security assessor, treatment plant operator, teacher, transportation officer, case maker)? Give summary @ -No Was smoking cessation discussed for >3mins.? @ -No Was critical care preformed (if so, how long)? @ -No Were there social determinants of health that impacted care today? How? (Homelessness, low income, unemployed, alcoholism, drug addiction, transportation, low edu. Level, literacy, decrease access to med. care, [facility], rehab)? @ -No Was there de-escalation of care discussed even if they declined (Discuss DNR or withdrawal of care, Hospice)? DNR status @ -No What co-morbidities impacted this encounter? (DM, HTN, Smoking, COPD, CAD, Cancer, CVA, ARF, Chemo, Hep., AIDS, mental health diagnosis, sleep apnea, morbid obesity)? @ -CKD Was patient admitted / discharged? Hospital course, mention meds given and route, prescriptions, significant lab abnormalities, going to OR and other pertinent info. @ -Patient presents emergency department with weakness, lack of appetite. Was told that either his hemoglobin or potassium was in the sevens. Presents for further evaluation. Denies any bleeding. States he is not on blood thinners. EKG shows normal sinus rhythm first-degree AV block with widening QRS as well as peaked T waves concerning for hyperkalemia. Patient was empirically administered hyperkalemia cocktail consisting of calcium gluconate, insulin, bicarb, Lokelma. Patient placed on maintenance IV fluids. Patient also given albuterol breathing treatment. Vital signs currently within acceptable limits. Laboratory studies as well as imaging still pending at this time. Patient signed out to the [facility] emergency department physician, Dr. Fitch pending results of workup. Undiagnosed new problem with uncertain prognosis? @ -No Drug Therapy requiring intensive monitoring for toxicity (Heparin, Nitro, Insulin, Cardizem)? @ -No Were any procedures done? @ -No (Klever Stout) Was patient admitted / discharged? Hospital course, mention meds given and route, prescriptions, significant lab abnormalities, going to OR and other pertinent info. @ -Patient signed out to me pending laboratory studies and imaging. Patient's creatinine markedly elevated. Patient found to have UTI. He initiated on antibiotics. Required admission for which the patient was agreeable. Spoke with Dr. Lambert for admission Undiagnosed new problem with uncertain prognosis? @ -No Drug Therapy requiring intensive monitoring for toxicity (Heparin, Nitro, Insulin, Cardizem)? @ -No Were any procedures done? @ -No Diagnosis/symptom? @ -Acute kidney injury, complicated UTI Acute, or Chronic, or Acute on Chronic? @ -Acute Uncomplicated (without systemic symptoms) or Complicated (systemic symptoms)? @ -Complicated Side effects of treatment? @ -No Exacerbation, Progression, or Severe Exacerbation? @ -No Poses a threat to life or bodily function? How? (Chest pain, USA, IA, pneumonia, PE, COPD, DKA, ARF, appy, cholecystitis, CVA, Diverticulitis, Homicidal, Suicidal, threat to staff... and all critical care pts) @ -Yes as patient is in kidney failure (Kaye Fitch) - Lab Data Lab Results 11/16/23 11/16/23 11/16/23 Range/Units 13:19 13:48 13:48 WBC 10.3 (3.8-10.6) k/uL RBC 3.90 L (4.30-5.90) m/uL Hgb 10.4 L (13.0-17.5) gm/dL Hct 33.7 L (39.0-53.0) % MCV 86.4 D (80.0-100.0) fL MCH 26.7 (25.0-35.0) pg MCHC 31.0 (31.0-37.0) g/dL RDW 15.5 (11.5-15.5) % Plt Count 372 (150-450) k/uL MPV 7.8 Neutrophils % 81 % Lymphocytes % 12 % Monocytes % 4 % Eosinophils % 2 % Basophils % 0 % Neutrophils # 8.4 H (1.3-7.7) k/uL Lymphocytes # 1.2 (1.0-4.8) k/uL Monocytes # 0.4 (0-1.0) k/uL Eosinophils # 0.2 (0-0.7) k/uL Basophils # 0.0 (0-0.2) k/uL Hypochromasia Marked PT 10.2 (10.0-12.5) sec INR 0.9 (<1.2) APTT 27.7 (22.0-30.0) sec Sodium (137-145) mmol/L Potassium (3.5-5.1) mmol/L Chloride (98-107) mmol/L Carbon Dioxide (22-30) mmol/L Anion Gap mmol/L BUN (9-20) mg/dL Creatinine (0.66-1.25) mg/dL Est GFR (CKD-EPI)AfAm (>60 ml/min/1.73 sqM) Est GFR (CKD-EPI)NonAf (>60 ml/min/1.73 sqM) Glucose (74-99) mg/dL POC Glucose (mg/dL) 116 H (70-110) mg/dL POC Glu Body Repairer ID Roshni Kraft Plasma Lactic Acid Kal (0.7-2.0) mmol/L Calcium (8.4-10.2) mg/dL Total Bilirubin (0.2-1.3) mg/dL AST (17-59) U/L ALT (4-49) U/L Alkaline Phosphatase (38-126) U/L Total Protein (6.3-8.2) g/dL Albumin (3.5-5.0) g/dL Amylase (30-110) U/L Lipase (23-300) U/L Urine Color Urine Appearance (Clear) Urine pH (5.0-8.0) Ur Specific [place] (1.001-1.035) Urine Protein (Negative) Urine Glucose (UA) (Negative) Urine Ketones (Negative) Urine Blood (Negative) Urine Nitrite (Negative) Urine Bilirubin (Negative) Urine Urobilinogen (<2.0) mg/dL Ur Leukocyte Esterase (Negative) Urine RBC (0-5) /hpf Urine WBC (0-5) /hpf Urine WBC Clumps (None) /hpf Urine Bacteria (None) /hpf Urine Mucus (None) /hpf Influenza Type A (PCR) (Not Detectd) Influenza Type B (PCR) (Not Detectd) RSV (PCR) (Not Detectd) SARS-CoV-2 (PCR) (Not Detectd) 11/16/23 11/16/23 11/16/23 Range/Units 13:48 13:48 13:48 WBC (3.8-10.6) k/uL RBC (4.30-5.90) m/uL Hgb (13.0-17.5) gm/dL Hct (39.0-53.0) % MCV (80.0-100.0) fL MCH (25.0-35.0) pg MCHC (31.0-37.0) g/dL RDW (11.5-15.5) % Plt Count (150-450) k/uL MPV Neutrophils % % Lymphocytes % % Monocytes % % Eosinophils % % Basophils % % Neutrophils # (1.3-7.7) k/uL Lymphocytes # (1.0-4.8) k/uL Monocytes # (0-1.0) k/uL Eosinophils # (0-0.7) k/uL Basophils # (0-0.2) k/uL Hypochromasia PT (10.0-12.5) sec INR (<1.2) APTT (22.0-30.0) sec Sodium 130 L (137-145) mmol/L Potassium 4.7 (3.5-5.1) mmol/L Chloride 108 H (98-107) mmol/L Carbon Dioxide <5 L* (22-30) mmol/L Anion Gap mmol/L BUN 95 H (9-20) mg/dL Creatinine 5.20 H (0.66-1.25) mg/dL Est GFR (CKD-EPI)AfAm 12 (>60 ml/min/1.73 sqM) Est GFR (CKD-EPI)NonAf 10 (>60 ml/min/1.73 sqM) Glucose 114 H (74-99) mg/dL POC Glucose (mg/dL) (70-110) mg/dL POC Glu Body Repairer ID Plasma Lactic Acid Kal 1.0 (0.7-2.0) mmol/L Calcium 8.4 (8.4-10.2) mg/dL Total Bilirubin 0.5 (0.2-1.3) mg/dL AST 23 (17-59) U/L ALT 10 (4-49) U/L Alkaline Phosphatase 75 (38-126) U/L Total Protein 7.5 (6.3-8.2) g/dL Albumin 3.6 (3.5-5.0) g/dL Amylase 81 (30-110) U/L Lipase 99 (23-300) U/L Urine Color Colorless Urine Appearance Turbid (Clear) Urine pH 6.0 (5.0-8.0) Ur Specific [place] 1.017 (1.001-1.035) Urine Protein 2+ H (Negative) Urine Glucose (UA) Trace H (Negative) Urine Ketones Negative (Negative) Urine Blood Moderate H (Negative) Urine Nitrite Negative (Negative) Urine Bilirubin Negative (Negative) Urine Urobilinogen <2.0 (<2.0) mg/dL Ur Leukocyte Esterase Large H (Negative) Urine RBC >182 H (0-5) /hpf Urine WBC >182 H (0-5) /hpf Urine WBC Clumps Many H (None) /hpf Urine Bacteria Occasional H (None) /hpf Urine Mucus Rare H (None) /hpf Influenza Type A (PCR) (Not Detectd) Influenza Type B (PCR) (Not Detectd) RSV (PCR) (Not Detectd) SARS-CoV-2 (PCR) (Not Detectd) 11/16/23 Range/Units 13:48 WBC (3.8-10.6) k/uL RBC (4.30-5.90) m/uL Hgb (13.0-17.5) gm/dL Hct (39.0-53.0) % MCV (80.0-100.0) fL MCH (25.0-35.0) pg MCHC (31.0-37.0) g/dL RDW (11.5-15.5) % Plt Count (150-450) k/uL MPV Neutrophils % % Lymphocytes % % Monocytes % % Eosinophils % % Basophils % % Neutrophils # (1.3-7.7) k/uL Lymphocytes # (1.0-4.8) k/uL Monocytes # (0-1.0) k/uL Eosinophils # (0-0.7) k/uL Basophils # (0-0.2) k/uL Hypochromasia PT (10.0-12.5) sec INR (<1.2) APTT (22.0-30.0) sec Sodium (137-145) mmol/L Potassium (3.5-5.1) mmol/L Chloride (98-107) mmol/L Carbon Dioxide (22-30) mmol/L Anion Gap mmol/L BUN (9-20) mg/dL Creatinine (0.66-1.25) mg/dL Est GFR (CKD-EPI)AfAm (>60 ml/min/1.73 sqM) Est GFR (CKD-EPI)NonAf (>60 ml/min/1.73 sqM) Glucose (74-99) mg/dL POC Glucose (mg/dL) (70-110) mg/dL POC Glu Body Repairer ID Plasma Lactic Acid Kal (0.7-2.0) mmol/L Calcium (8.4-10.2) mg/dL Total Bilirubin (0.2-1.3) mg/dL AST (17-59) U/L ALT (4-49) U/L Alkaline Phosphatase (38-126) U/L Total Protein (6.3-8.2) g/dL Albumin (3.5-5.0) g/dL Amylase (30-110) U/L Lipase (23-300) U/L Urine Color Urine Appearance (Clear) Urine pH (5.0-8.0) Ur Specific [place] (1.001-1.035) Urine Protein (Negative) Urine Glucose (UA) (Negative) Urine Ketones (Negative) Urine Blood (Negative) Urine Nitrite (Negative) Urine Bilirubin (Negative) Urine Urobilinogen (<2.0) mg/dL Ur Leukocyte Esterase (Negative) Urine RBC (0-5) /hpf Urine WBC (0-5) /hpf Urine WBC Clumps (None) /hpf Urine Bacteria (None) /hpf Urine Mucus (None) /hpf Influenza Type A (PCR) Not Detected (Not Detectd) Influenza Type B (PCR) Not Detected (Not Detectd) RSV (PCR) Not Detected (Not Detectd) SARS-CoV-2 (PCR) Not Detected (Not Detectd) - EKG Data EKG Comments: 12-lead Electrocardiogram Interpretation Note EKG was reviewed and interpreted by myself. 12-lead ECG performed at 1524 is interpreted by me as revealing normal sinus rhythm with first-degree AV block at a rate of 82 beats per minute. Atrial fibrillation. Patient has peaked T waves with QRS widening.. R wave progression across the precordium was satisfactory. Findings concerning for hyperkalemia.. (Klever Stout) Disposition <Klever Stout - Last Filed: 11/16/23 14:49> Is patient prescribed a controlled substance at d/c from ED?: No Time of Disposition: 16:45 Decision to Admit Reason: Admit from EC Decision Date: 11/16/23 Decision Time: 16:45 <Kaye Fitch - Last Filed: 12/17/23 22:01> Clinical Impression: Complicated UTI (urinary tract infection), Acute kidney failure, CKD (chronic kidney disease) Disposition: ADMITTED IP TO THIS HOSP Condition: Serious
[2023-11-16] MEDS: ALBUTEROL NEB (CONC) 2.5 MG/0.5 ML INHALATION ONE (14:51)
[2023-11-16 14:53] LABS: Basophils % (A) 0 %; Eosinophils # (A) 0.2 k/uL (0-0.7); Eosinophils % (A) 2 %; HCT 33.7 % (39.0-53.0); HGB 10.4 gm/dL (13.0-17.5); Hypochromasia Marked; Lymphocytes # (A) 1.2 k/uL (1.0-4.8); Lymphocytes % (A) 12 %; MCH 26.7 pg (25.0-35.0); Mean Platelet Volume 7.8; Monocytes # (A) 0.4 k/uL (0-1.0); Monocytes % (A) 4 %; Neutrophils # (A) 8.4 k/uL (1.3-7.7); Neutrophils % (A) 81 %; Platelet Count 372 k/uL (150-450); RDW 15.5 % (11.5-15.5); WBC 10.3 k/uL (3.8-10.6)
[2023-11-16 15:05] LABS: INR 0.9 (<1.2); Partial Thromboplastin Time 27.7 sec (22.0-30.0); Prothrombin Time 10.2 sec (10.0-12.5)
[2023-11-16 15:09] LABS: MCV 86.4 fL (80.0-100.0)
[2023-11-16 15:10] LABS: ALT 10 U/L (4-49); AST 23 U/L (17-59); Albumin 3.6 g/dL (3.5-5.0); Alkaline Phosphatase 75 U/L (38-126); Amylase 81 U/L (30-110); Blood Urea Nitrogen 95 mg/dL (9-20); Calcium 8.4 mg/dL (8.4-10.2); Chloride 108 mmol/L (98-107); Glucose 114 mg/dL (74-99); Lipase 99 U/L (23-300); Potassium 4.7 mmol/L (3.5-5.1); Sodium 130 mmol/L (137-145); Total Bilirubin 0.5 mg/dL (0.2-1.3); Total Protein 7.5 g/dL (6.3-8.2)
[2023-11-16 15:18] LABS: African American GFR (CKD) 12 (>60 ml/min/1.73 sqM); Non-African American GFR(CKD) 10 (>60 ml/min/1.73 sqM)
[2023-11-16 15:26] LABS: Appearance,Urine Turbid (Clear); Bacteria,Urine Occasional /hpf; Bilirubin,Urine Negative (Negative); Blood,Urine Moderate (Negative); Color,Urine Colorless; Glucose,Urine (UA) Trace (Negative); Ketones,Urine Negative (Negative); Leukocyte Esterase,Urine Large (Negative); Mucus,Urine Rare /hpf; Nitrite,Urine Negative (Negative); Protein,Urine 2+ (Negative); RBC,Urine >182 /hpf (0-5); Specific Gravity,Urine 1.017 (1.001-1.035); Urobilinogen,Urine <2.0 mg/dL (<2.0); WBC,Urine >182 /hpf (0-5)
--- NOTE | 2023-11-16 15:28 | XR ---
EXAMINATION TYPE: XR chest 1V portable DATE OF EXAM: 11/16/2023 COMPARISON: 05/01/2023 HISTORY: Shortness of breath TECHNIQUE: Frontal and lateral views of the chest are obtained. FINDINGS: Scattered senescent parenchymal changes noted. Hyperinflation compatible with COPD. No evidence for infiltrate. No evidence for atelectasis. Heart size is stable. Mediastinal structures are stable and grossly unremarkable. No evidence for hilar prominence. Degenerative changes dorsal spine. IMPRESSION: 1. No evidence for acute pulmonary disease.
[2023-11-16 15:29] LABS: Carbon Dioxide <5 mmol/L (22-30)
[2023-11-16] MEDS ORDERED: VANCOMYCIN IV PER PHARMACY 1 EACH MISC MISCELLANE PRN (16:43)
[2023-11-16] MEDS ORDERED: NALOXONE 0.4 MG/ML 1 ML VIAL IV PRN (16:45)
--- NOTE | 2023-11-16 18:00 | US ---
EXAMINATION TYPE: US renals and bladder DATE OF EXAM: 11/16/2023 COMPARISON: 10/03/2023 CLINICAL INDICATION: Male, 73 years old with history of reggie; REGGIE. Patient poor historian. EXAM MEASUREMENTS: Right Kidney: 10.6 x 4.7 x 6.1 cm Left Kidney: 12.0 x 5.2 x 4.3 cm Limited due to limited patient mobility and rib shadows Right Kidney: There is a 2.4 x 2.3 x 2.2m anechoic area seen lateral/mid right kidney with a small ca lcification within. There are multiple echogenic foci seen, largest measuring 1.5 x 1.1 x 1.2cm. Anec hoic area seen within the renal sinus ? mild hydro as seen on prior vs dilated renal pelvis. Left Kidney: Superior pole slightly obscured by rib shadows. There are multiple echogenic foci seen, largest measuring 0.9 x 0.6cm in the inferior pole. There is a 2.3 x 1.2cm anechoic area seen mediall y, ? dilated renal pelvis vs other. Bladder: Nair catheter seen Bilateral Jets seen: No IMPRESSION: 1. Multiple bilateral renal calculi. Similar prominence of the renal collecting system as seen on pr ior CT 10/08/2023. Correlate with urinalysis. 2. Right simple appearing renal cysts. 3. Nair catheter in place.
[2023-11-16 18:40] LABS: Glucose,Whole Blood 107 mg/dL (70-110)
[2023-11-16] MEDS: VANCOMYCIN 1,000 MG in SODIUM CHLORIDE 0.9% 250 ML IVPB ONE (19:34)
[2023-11-17 06:09] LABS: Glucose,Whole Blood 107 mg/dL (70-110)
[2023-11-17 09:12] LABS: Basophils # (A) 0.06 X 10*3/uL (0.00-0.10); Basophils % (A) 0.5 %; Eosinophils # (A) 0.19 X 10*3/uL (0.04-0.35); Eosinophils % (A) 1.5 %; HCT 33.4 % (39.6-50.0); HGB 10.4 g/dL (13.0-17.0); Lymphocytes # (A) 1.65 X 10*3/uL (0.90-5.00); Lymphocytes % (A) 13.1 %; MCH 26.3 pg (27.0-32.0); MCHC 31.1 g/dL (32.0-37.0); MCV 84.3 FL (80.0-97.0); Mean Platelet Volume 10.2 FL (9.5-12.2); Monocytes # (A) 0.66 X 10*3/uL (0.20-1.00); Monocytes % (A) 5.2 %; NRBC Per 100 WBC 0 X 10*3/uL (0.00-0.01); Neutrophils # (A) 9.96 X 10*3/uL (1.80-7.70); Neutrophils % (A) 79.1 %; Platelet Count 397 X 10*3/uL (140-440); RBC 3.96 X 10*6/uL (4.40-5.60); RDW 15.3 % (11.5-14.5)
--- NOTE | 2023-11-17 10:46 | P.HPIM ---
History of Present Illness Please this is a pleasant 73 years old male with past medical history of multiple medical problems. Patient somewhat is poor historian and hard of hearing. Information was obtained from the patient, medical record and the . I called Tami @[phone]. Patient presents because of what he thinks he had kidney infection for the last 1 week with possible also 2 weeks. He has very poor appetite and he lost weight. Patient also is getting more confused. He knows he is in the hospital and he knows it is 2023 but he cannot give details more about the place person and time. Currently he denies any specific pain but as per he has been holding his back for pain. He was thinking he has kidney infection but ultrasound showing multiple stones which might be contributing to his pain. He denies chest pain or dyspnea. He denies abdominal pain vomiting or diarrhea. He did not known to have dysuria. Nair catheter placed in the emergency room. Also patient is sleeping a lot Patient states that he went to see his PCP Dr. Saldaña about 2 weeks ago for abnormal lab work. Also patient was noticed to be on A-fib but he is not on anticoagulation. told me he is not anticoagulation since he was discharged from [facility] but she is not sure which hospital from [place] Patient is mildly hypothermic, rest of vitals looks stable. Creatinine went up from baseline 2.5-2.9 up to 5.2 on admission, Index at less than 5 Sodium 130 Hemoglobin 10.4 and WBC went up today to 12.6. INR is unremarkable as well as liver enzymes, amylase/lipase Influenza A and type B, RSV, SARS (coronavirus) are undetected Urine analysis looks abnormal suspicious for infection Renal ultrasound showed multiple bilateral kidney stones EKG showed sinus rhythm at 82 with multiple PACs Chest x-ray is negative for acute process Review of Systems Review of systems CONSTITUTIONAL: No fever, no malaise, no fatigue. HEENT: No recent visual problems or hearing problems. Denied any sore throat. CARDIOVASCULAR: No orthopnea, PND, no palpitations, no syncope. PULMONARY: No shortness of breath, no cough, no hemoptysis. GASTROINTESTINAL: No diarrhea, no nausea, no vomiting, no abdominal pain. Normoactive bowel sounds. NEUROLOGICAL: No headaches, no weakness, no numbness. HEMATOLOGICAL: Denies any bleeding or petechiae. GENITOURINARY: Denies any burning micturition, frequency, or urgency. MUSCULOSKELETAL/RHEUMATOLOGICAL: Denies any joint pain, swelling, or any muscle pain. ENDOCRINE: Denies any polyuria or polydipsia. Past Medical History Past Medical History: Atrial Fibrillation, Blood Disorder, Eye Disorder, GERD/Reflux, GI Bleed, Hearing Disorder / Deafness, Hyperlipidemia, Hypertension, Musculoskeletal Disorder, Pneumonia, Rheumatoid Arthritis (RA), Skin Disorder, Supraventricular Tachycardia (SVT) Additional Past Medical History / Comment(s): hx CROHN'S (takes tresa), IBS, chronic diarrhea, migraines-, hx ulcers, anemia, gout, kidney stones, psoriasis, bilateral tinnitis., pinched sciatic nerve, C-Diff 2017, neuropathy, COMPLICATED UTI PYELONEPHRITIS, HEART RATE NORMALLY 50'S History of Any Multi-Drug Resistant Organisms: C-DIFF, MRSA Date of last positivie culture/infection: stool MDRO Source:: 2017 Past Surgical History: Ablation, Bowel Resection, Cardiac Ablation, Cholecystectomy, Heart Catheterization, Hernia Repair, Joint Replacement, Orthopedic Surgery, Tonsillectomy Additional Past Surgical History / Comment(s): 1/3 of stomach removed (partial gastrectomy), ulcers, bowel resections, fecal transplant 2017, bilateral knee arthroscopic surgery, EGD/colonoscopies, R inguinal hernia repair, bilat cataract removal, TOTAL LEFT KNEE. MULTIPLE CYSTOS, PICC 05/11 Past Anesthesia/Blood Transfusion Reactions: Blood Transfusion Reaction, Motion Sickness Additional Past Anesthesia/Blood Transfusion Reaction / Comment(s): BLOOD TRANSFUSION- BROKE OUT IN HIVES age 21 Past Psychological History: Anxiety Additional Psychological History / Comment(s): denies Smoking Status: Never smoker Past Alcohol Use History: None Reported, Occasional Additional Past Alcohol Use History / Comment(s): FORMER every other day 2-3 beers per patient. 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 - Past Family History Mother Family Medical History: No Reported History, Pulmonary Embolus Additional Family Medical History / Comment(s): AGE 73-[place], STROKE DURING CARATID PROCEDURE Medications and Allergies Home Medications Medication Instructions Recorded Confirmed Type Tamsulosin [Flomax] 0.4 mg PO BID 07/29/23 11/16/23 History Magnesium Oxide [Mag-Ox] 400 mg PO BID #60 tab 09/07/23 11/16/23 Rx Buprenorphine HCl/Naloxone HCl 1 film SL BID 09/09/23 11/16/23 History [Suboxone 4 mg-1 mg Sl Film] Sodium Bicarbonate Tab 1,300 mg PO BID 30 Days #120 tab 10/13/23 11/16/23 Rx Adalimumab [Humira Pen] 40 mg SQ Q14D 11/16/23 11/16/23 History Ferrous Sulfate [Feosol] 325 mg PO DAILY 11/16/23 11/16/23 History amLODIPine [Norvasc] 10 mg PO DAILY 11/16/23 11/16/23 History cloNIDine HCL [Catapres] 0.1 mg PO BID 11/16/23 11/16/23 History Allergies Allergy/AdvReac Type Severity Reaction Status Date / Time Iodinated Contrast Media Allergy Anaphylaxis Verified 11/16/23 14:53 [Iodinated Contrast Media - IV Dye] Physical Exam Vitals: Vital Signs Temp Pulse Pulse Resp BP BP BP 11/17/23 07:04 95.7 F L 87 14 134/88 11/17/23 01:49 97.5 F L 65 18 135/71 11/16/23 22:12 97.8 F 55 L 18 126/72 11/16/23 21:42 97.1 F L 93 18 119/98 11/16/23 20:16 91 20 131/81 11/16/23 18:00 78 18 150/68 11/16/23 17:00 71 16 146/59 11/16/23 15:11 77 18 135/88 11/16/23 14:59 82 11/16/23 14:51 78 11/16/23 13:03 97.4 F L 71 18 138/74 Pulse Ox 11/17/23 07:04 96 11/17/23 01:49 98 11/16/23 22:12 98 11/16/23 21:42 100 11/16/23 20:16 96 11/16/23 18:00 98 11/16/23 17:00 98 11/16/23 15:11 97 11/16/23 14:59 11/16/23 14:51 11/16/23 13:03 100 Intake and Output 11/16/23 11/17/23 11/17/23 22:59 06:59 14:59 Intake Total 10 Output Total 375 450 Balance -375 -450 10 Intake: Oral 10 Output: Urine 375 450 Other: Voiding Method Indwelling Catheter Weight 52.617 kg --GENERAL: The patient is alert and oriented x1 partially, he is drowsy, not in any acute distress, thin built HEENT: Pupils are round and equally reacting to light. EOMI. No scleral icterus. No conjunctival pallor. Normocephalic, atraumatic. No pharyngeal erythema. No thyromegaly. CARDIOVASCULAR: S1 and S2 present. No murmurs, rubs, or gallops. PULMONARY: Chest is clear to auscultation, no wheezing , no crackles. -ABDOMEN: Soft, nontender, nondistended, normoactive bowel sounds. No palpable organomegaly. Nair catheter in place MUSCULOSKELETAL: No joint swelling or deformity. EXTREMITIES: No cyanosis, clubbing, or pedal edema. NEUROLOGICAL: Gross neurological examination did not reveal any focal deficits. SKIN: No rashes. no petechiae. Results CBC & Chem 7: 11/17/23 05:13 11/16/23 17:40 Labs: Abnormal Lab Results - Last 24 Hours (Table) 11/16/23 11/16/23 11/16/23 Range/Units 13:19 13:48 13:48 WBC (4.50-10.00) X 10*3/uL RBC 3.90 L (4.30-5.90) m/uL Hgb 10.4 L (13.0-17.5) gm/dL Hct 33.7 L (39.0-53.0) % MCH (27.0-32.0) pg MCHC (32.0-37.0) g/dL RDW (11.5-14.5) % Immature Gran # (0.00-0.04) X 10*3/uL Neutrophils # 8.4 H (1.3-7.7) k/uL Sodium (137-145) mmol/L Chloride (98-107) mmol/L Carbon Dioxide (22-30) mmol/L BUN (9-20) mg/dL Creatinine (0.66-1.25) mg/dL Glucose (74-99) mg/dL POC Glucose (mg/dL) 116 H (70-110) mg/dL Urine Protein 2+ H (Negative) Urine Glucose (UA) Trace H (Negative) Urine Blood Moderate H (Negative) Ur Leukocyte Esterase Large H (Negative) Urine RBC >182 H (0-5) /hpf Urine WBC >182 H (0-5) /hpf Urine WBC Clumps Many H (None) /hpf Urine Bacteria Occasional H (None) /hpf Urine Mucus Rare H (None) /hpf 11/16/23 11/17/23 Range/Units 13:48 05:13 WBC 12.60 H (4.50-10.00) X 10*3/uL RBC 3.96 L (4.30-5.90) m/uL Hgb 10.4 L (13.0-17.5) gm/dL Hct 33.4 L (39.0-53.0) % MCH 26.3 L (27.0-32.0) pg MCHC 31.1 L (32.0-37.0) g/dL RDW 15.3 H (11.5-14.5) % Immature Gran # 0.08 H (0.00-0.04) X 10*3/uL Neutrophils # 9.96 H (1.3-7.7) k/uL Sodium 130 L (137-145) mmol/L Chloride 108 H (98-107) mmol/L Carbon Dioxide <5 L* (22-30) mmol/L BUN 95 H (9-20) mg/dL Creatinine 5.20 H (0.66-1.25) mg/dL Glucose 114 H (74-99) mg/dL POC Glucose (mg/dL) (70-110) mg/dL Urine Protein (Negative) Urine Glucose (UA) (Negative) Urine Blood (Negative) Ur Leukocyte Esterase (Negative) Urine RBC (0-5) /hpf Urine WBC (0-5) /hpf Urine WBC Clumps (None) /hpf Urine Bacteria (None) /hpf Urine Mucus (None) /hpf Assessment and Plan Assessment: Acute on chronic kidney disease Possible acute urinary tract infection Loss of weight and with poor appetite for 1 to 2 weeks Bilateral renal calculi Toxic/metabolic encephalopathy History of Crohn's disease on Humira (held now) Severe calorie protein malnutrition Hypertension Atrial fibrillation. Currently not on anticoagulation History of GI bleed Hearing difficulty Hypertension Hyperlipidemia Rheumatoid arthritis History of supraventricular tachycardia Neuropathy Chronic anemia History of gout History of kidney stone History of psoriasis Bilateral tinnitus History of C. difficile Plan: Continue with sodium bicarb Follow-up renal function Continue with Nair catheter Nephrology consult Will consult GI service as patient has history of chronic disease on Humira (held) Also will order CT of the abdomen and pelvis and chest without contrast as he has history of anaphylaxis and because of his kidney disease Order CT of the brain Patient was started on ceftriaxone and IV vancomycin pharmacy to dose in the emergency room Follow-up blood culture and urine culture Labs and medication were reviewed.. Continue same treatment. Continue with symptomatic treatment. Resume home medication. Monitor labs and vitals. DVT and GI prophylaxis. Further recommendations as per clinical course of the patient DVT prophylaxis: Subcutaneous heparin GI Prophylaxis: Pepcid PT/OT: Pending Prognosis is guarded he has started
[2023-11-17 11:09] LABS: BUN/Creat Ratio 18.96 Ratio (12.00-20.00); Blood Urea Nitrogen 98.6 mg/dL (9.0-27.0); Calcium 8.6 mg/dL (8.7-10.3); Chloride 103 mmol/L (96-109); Glucose 117 mg/dL (70-110); Potassium 4.4 mmol/L (3.5-5.5); Sodium 132 mmol/L (135-145)
[2023-11-17] MEDS: VANCOMYCIN 1,000 MG in SODIUM CHLORIDE 0.9% 250 ML IVPB ONE (11:25)
--- NOTE | 2023-11-17 11:31 | CT ---
EXAMINATION TYPE: CT brain wo con DATE OF EXAM: 11/17/2023 COMPARISON: 08/16/2022 HISTORY: Confusion CT DLP: 1203.4 mGycm Automated exposure control for dose reduction was used. Findings: The ventricles, basal cisterns and sulci over the convexities are mildly enlarged consistent with mil d age-appropriate atrophy. There is no mass effect or shift of midline structures. Decreased density in the periventricular white matter consistent with mild chronic ischemic white mat ter demyelination. There is no acute intra or extra-axial hemorrhage. The posterior fossa including the brainstem, fourth ventricle and cerebellar pontine angles appear no rmal. Intraorbital contents appear normal and symmetric. Visualized paranasal sinuses and mastoid air cells are well aerated. The calvarium is intact. IMPRESSION: 1. No acute hemorrhage or mass effect. 2. Stable mild senescent changes as described above.
[2023-11-17 11:41] LABS: Glucose,Whole Blood 130 mg/dL (70-110)
--- NOTE | 2023-11-17 11:41 | CT ---
EXAMINATION TYPE: CT ChestAbdPelvis wo con DATE OF EXAM: 11/17/2023 COMPARISON: 08/16/2022 HISTORY: Weight loss, renal failure, pain CT DLP: 375.9 mGycm. Automated Exposure Control for Dose Reduction was Utilized. TECHNIQUE: CT scan of the thorax, abdomen and pelvis is performed without IV contrast. FINDINGS: CT chest: There is a 7 mm calcified granuloma in the right lower lobe and a calcified right hilar lymph node. T he 9 mm right upper lobe nodule/mass is nearly completely resolved in the interval with a tiny inters titial scar persisting. There is no airspace consolidation or abnormal interstitial density. There is no pleural effusion or pneumothorax. Great vessels of the chest and heart are normal. There is no axillary or mediastinal adenopathy. No osseous lesions are seen. CT abdomen and pelvis: There is surgical absence of the gallbladder. There is no organomegaly involving the liver, pancreas, spleen or adrenal glands. There are multiple nonobstructing calcification in the kidney. The largest right renal calcification is seen in the midpole and measures 8 mm. The largest calcification in the left kidney is in the mid pole and measures approximately 4 -5 mm. Caliber of the abdominal aorta is normal and no retroperitoneal adenopathy or hemorrhage. The bowel loops are normal in caliber and no dilatation or obstruction. There are anastomotic bowel s utures in the right lower quadrant of the abdomen. There is no pelvic mass, free fluid, abscess or adenopathy. There is a moderate amount of stool within the rectum. There is a Nair catheter in the urinary bladder. The osseous structures are intact.. IMPRESSION: 1. No acute changes in the chest, abdomen or pelvis. 2. Sequela of granulomatous disease in the chest. 3. Bilateral nonobstructing renal calcifications described..
[2023-11-17 13:35] VITALS: BMI 14.8
--- NOTE | 2023-11-17 14:51 | P.CONS ---
History of Present Illness - Reason for Consult Consult date: 11/17/23 Crohn's, known to you Requesting physician: Andrew E Sheet - Chief Complaint Weakness, abnormal labs - History of Present Illness This is a pleasant 73-year-old male with a past medical history of Crohn's disease diagnosed many years ago and started on Humira in 2013 with a history of a bowel resection who follows with Dr. Yancey, atrial fibrillation, hyperlipidemia, hypertension, rheumatoid arthritis who presented to the emergency department with complaints of weakness and had abnormal outpatient lab work so was told to come to the emergency department for further evaluation. He was admitted for acute kidney injury and urinary tract infection. Gastroenterology was consulted is known to the patient. He denies any diarrhea, bloody bowel movements, or abdominal pain. No nausea or vomiting. Blood show he has had a 40 pound weight loss over the last 6 months duration multiple workup for it including 2-3 CAT scans over this period. He is tentatively scheduled for outpatient EGD and colonoscopy next week on 11/22/2023. Today's labs WBC 12.6 hemoglobin 10.4 platelet count 397,000 sodium 132 potassium 4.4 BUN 98.6 creatinine 5.2 glucose 130 Review of Systems REVIEW OF SYSTEMS: CARDIOPULMONARY: No chest pain or shortness of breath. Gastrointestinal: No abdominal pain. No nausea or vomiting. No hematemesis, coffee-ground emesis. No rectal bleeding, or melena. GENITOURINARY: No dysuria or hematuria. MUSCULOSKELETAL: Reports normal range of motion., Joint pain. SKIN: No rashes. No jaundice. ENDOCRINE: No chills, fevers. No excessive weight gain. Has had 40 pound weight loss no polydipsia or polyuria. PSYCHIATRIC: Unremarkable. NEUROLOGY: No change in mental status. Denies dizziness, headache. ENT: Vision unremarkable. CONSTITUTIONAL: 40 pound weight loss over the last 6 months. No fever, chills, night sweats. Increased fatigue and weakness. Past Medical History Past Medical History: Atrial Fibrillation, Blood Disorder, Eye Disorder, GERD/Reflux, GI Bleed, Hearing Disorder / Deafness, Hyperlipidemia, Hypertension, Musculoskeletal Disorder, Pneumonia, Rheumatoid Arthritis (RA), Skin Disorder, Supraventricular Tachycardia (SVT) Additional Past Medical History / Comment(s): hx CROHN'S (takes tresa), IBS, chronic diarrhea, migraines-, hx ulcers, anemia, gout, kidney stones, psoriasis, bilateral tinnitis., pinched sciatic nerve, C-Diff 2017, neuropathy, COMPLICATED UTI PYELONEPHRITIS, HEART RATE NORMALLY 50'S History of Any Multi-Drug Resistant Organisms: C-DIFF, MRSA Year Discovered:: stool MDRO Source:: 2017 Past Surgical History: Ablation, Bowel Resection, Cardiac Ablation, Cholecystectomy, Heart Catheterization, Hernia Repair, Joint Replacement, Orthopedic Surgery, Tonsillectomy Additional Past Surgical History / Comment(s): 13 of stomach removed (partial gastrectomy), ulcers, bowel resections, fecal transplant 2017, bilateral knee arthroscopic surgery, EGD/colonoscopies, R inguinal hernia repair, bilat cataract removal, TOTAL LEFT KNEE. MULTIPLE CYSTOS, PICC 05/11 Past Anesthesia/Blood Transfusion Reactions: Blood Transfusion Reaction, Motion Sickness Additional Past Anesthesia/Blood Transfusion Reaction / Comm: BLOOD TRANSFUSION- BROKE OUT IN HIVES age 21 Past Psychological History: Anxiety Additional Psychological History / Comment(s): denies Smoking Status: Never smoker Past Alcohol Use History: None Reported, Occasional Additional Past Alcohol Use History / Comment(s): FORMER every other day 2-3 beers per patient. 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 - Past Family History Mother Family Medical History: No Reported History, Pulmonary Embolus Additional Family Medical History / Comment(s): AGE 73-[place], STROKE DURING CARATID PROCEDURE Medications and Allergies Home Medications Medication Instructions Recorded Confirmed Type Tamsulosin [Flomax] 0.4 mg PO BID 07/29/23 11/16/23 History Magnesium Oxide [Mag-Ox] 400 mg PO BID #60 tab 09/07/23 11/16/23 Rx Buprenorphine HCl/Naloxone HCl 1 film SL BID 09/09/23 11/16/23 History [Suboxone 4 mg-1 mg Sl Film] Sodium Bicarbonate Tab 1,300 mg PO BID 30 Days #120 tab 10/13/23 11/16/23 Rx Adalimumab [Humira Pen] 40 mg SQ Q14D 11/16/23 11/16/23 History Ferrous Sulfate [Feosol] 325 mg PO DAILY 11/16/23 11/16/23 History amLODIPine [Norvasc] 10 mg PO DAILY 11/16/23 11/16/23 History cloNIDine HCL [Catapres] 0.1 mg PO BID 11/16/23 11/16/23 History Allergies Allergy/AdvReac Type Severity Reaction Status Date / Time Iodinated Contrast Media Allergy Anaphylaxis Verified 11/16/23 14:53 [Iodinated Contrast Media - IV Dye] Physical Exam Vitals: Vital Signs Temp Pulse Pulse Resp BP BP BP 11/17/23 07:04 95.7 F L 87 14 134/88 11/17/23 01:49 97.5 F L 65 18 135/71 11/16/23 22:12 97.8 F 55 L 18 126/72 11/16/23 21:42 97.1 F L 93 18 119/98 11/16/23 20:16 91 20 131/81 11/16/23 18:00 78 18 150/68 11/16/23 17:00 71 16 146/59 11/16/23 15:11 77 18 135/88 11/16/23 14:59 82 11/16/23 14:51 78 11/16/23 13:03 97.4 F L 71 18 138/74 Pulse Ox 11/17/23 07:04 96 11/17/23 01:49 98 11/16/23 22:12 98 11/16/23 21:42 100 11/16/23 20:16 96 11/16/23 18:00 98 11/16/23 17:00 98 11/16/23 15:11 97 11/16/23 14:59 11/16/23 14:51 11/16/23 13:03 100 Intake and Output 11/16/23 11/17/23 11/17/23 22:59 06:59 14:59 Intake Total 10 Output Total 375 450 Balance -375 -450 10 Intake: Oral 10 Output: Urine 375 450 Other: Voiding Method Indwelling Catheter Weight 52.617 kg General appearance: The patient is alert, oriented, appears in no acute distre ss. HET: Head is normocephalic and atraumatic. Conjunctiva pink. Sclera anicteric. Neck: Supple without lymphadenopathy. Trachea midline. Heart: Regular. Lungs: Equal expansion, normal respiratory effort. Abdomen: Soft, thin, nontender, nondistended. Skin: No rashes. No jaundice. Extremities: Normal skin color and turgor. No pedal edema. Neurological: No focal deficits. Alert and oriented x3. Results CBC & Chem 7: 11/17/23 05:13 11/17/23 05:07 Labs: Abnormal Lab Results - Last 24 Hours (Table) 11/16/23 11/16/23 11/16/23 Range/Units 13:19 13:48 13:48 WBC (4.50-10.00) X 10*3/uL RBC 3.90 L (4.30-5.90) m/uL Hgb 10.4 L (13.0-17.5) gm/dL Hct 33.7 L (39.0-53.0) % MCH (27.0-32.0) pg MCHC (32.0-37.0) g/dL RDW (11.5-14.5) % Immature Gran # (0.00-0.04) X 10*3/uL Neutrophils # 8.4 H (1.3-7.7) k/uL Sodium (137-145) mmol/L Chloride (98-107) mmol/L Carbon Dioxide (22-30) mmol/L Anion Gap (4.00-12.00) mmol/L BUN (9-20) mg/dL Creatinine (0.66-1.25) mg/dL Est GFR (CKD-EPI) (>=60) Glucose (74-99) mg/dL POC Glucose (mg/dL) 116 H (70-110) mg/dL Calcium (8.7-10.3) mg/dL Urine Protein 2+ H (Negative) Urine Glucose (UA) Trace H (Negative) Urine Blood Moderate H (Negative) Ur Leukocyte Esterase Large H (Negative) Urine RBC >182 H (0-5) /hpf Urine WBC >182 H (0-5) /hpf Urine WBC Clumps Many H (None) /hpf Urine Bacteria Occasional H (None) /hpf Urine Mucus Rare H (None) /hpf 11/16/23 11/17/23 11/17/23 Range/Units 13:48 05:07 05:13 WBC 12.60 H (4.50-10.00) X 10*3/uL RBC 3.96 L (4.30-5.90) m/uL Hgb 10.4 L (13.0-17.5) gm/dL Hct 33.4 L (39.0-53.0) % MCH 26.3 L (27.0-32.0) pg MCHC 31.1 L (32.0-37.0) g/dL RDW 15.3 H (11.5-14.5) % Immature Gran # 0.08 H (0.00-0.04) X 10*3/uL Neutrophils # 9.96 H (1.3-7.7) k/uL Sodium 130 L 132 L (137-145) mmol/L Chloride 108 H (98-107) mmol/L Carbon Dioxide <5 L* 10.0 L (22-30) mmol/L Anion Gap 19.00 H (4.00-12.00) mmol/L BUN 95 H 98.6 H (9-20) mg/dL Creatinine 5.20 H 5.2 H (0.66-1.25) mg/dL Est GFR (CKD-EPI) 11 L (>=60) Glucose 114 H 117 H (74-99) mg/dL POC Glucose (mg/dL) (70-110) mg/dL Calcium 8.6 L (8.7-10.3) mg/dL Urine Protein (Negative) Urine Glucose (UA) (Negative) Urine Blood (Negative) Ur Leukocyte Esterase (Negative) Urine RBC (0-5) /hpf Urine WBC (0-5) /hpf Urine WBC Clumps (None) /hpf Urine Bacteria (None) /hpf Urine Mucus (None) /hpf 11/17/23 Range/Units 11:40 WBC (4.50-10.00) X 10*3/uL RBC (4.30-5.90) m/uL Hgb (13.0-17.5) gm/dL Hct (39.0-53.0) % MCH (27.0-32.0) pg MCHC (32.0-37.0) g/dL RDW (11.5-14.5) % Immature Gran # (0.00-0.04) X 10*3/uL Neutrophils # (1.3-7.7) k/uL Sodium (137-145) mmol/L Chloride (98-107) mmol/L Carbon Dioxide (22-30) mmol/L Anion Gap (4.00-12.00) mmol/L BUN (9-20) mg/dL Creatinine (0.66-1.25) mg/dL Est GFR (CKD-EPI) (>=60) Glucose (74-99) mg/dL POC Glucose (mg/dL) 130 H (70-110) mg/dL Calcium (8.7-10.3) mg/dL Urine Protein (Negative) Urine Glucose (UA) (Negative) Urine Blood (Negative) Ur Leukocyte Esterase (Negative) Urine RBC (0-5) /hpf Urine WBC (0-5) /hpf Urine WBC Clumps (None) /hpf Urine Bacteria (None) /hpf Urine Mucus (None) /hpf Comments: Brain CT reports no acute hemorrhage or mass effect. Stable mild senescent changes as described above. Chest abdomen and pelvis CAT scan without contrast reports no acute changes in the chest, abdomen or pelvis. Sequela of granulomatous toes disease in the chest. Bilateral nonobstructing renal calcifications. Chest x-ray reports no evidence for acute pulmonary disease Assessment and Plan (1) Crohns disease Narrative/Plan: 73-year-old male with longstanding history of Crohn's disease which she has been in remission and he has been on Humira since 2013. Patient admitted for acute kidney injury and urinary tract infection. He is without any symptoms of Crohn's exacerbation however has been worked up including multiple CAT scans for 40 pound weight loss over the last 6 months duration. Scheduled for outpatient EGD and colonoscopy for next week Tuesday. Will reevaluate and possibly proceed with EGD colonoscopy as an inpatient unless he is discharged then he can go to his scheduled appointment. Current Visit: No Status: Acute Code(s): K50.90 - CROHN'S DISEASE, UNSPECIFIED, WITHOUT COMPLICATIONS SNOMED Code(s): 86445880 (2) Unintentional weight loss Current Visit: Yes Status: Acute Code(s): R63.4 - ABNORMAL WEIGHT LOSS SNOMED Code(s): 108399008 (3) Acute kidney failure Current Visit: Yes Status: Acute Code(s): N17.9 - ACUTE KIDNEY FAILURE, UNSPECIFIED SNOMED Code(s): 63714312 (4) Atrial fibrillation Current Visit: No Status: Acute Code(s): I48.91 - UNSPECIFIED ATRIAL FIBRILLATION SNOMED Code(s): 17702456 (5) Severe protein-calorie malnutrition Current Visit: No Status: Acute Code(s): E43 - UNSPECIFIED SEVERE PROTEIN- CALORIE MALNUTRITION SNOMED Code(s): 904885242 Plan: 1. Continue symptomatic and supportive care 2. Patient is scheduled for outpatient EGD and colonoscopy 11/22/2023, if patient still admitted may consider doing as an inpatient 3. No further workup from gastroenterology at this time 4. Continue with recommendations from nephrology 5. Continue rest of medical management per primary medical team Thank you for this consultation, we will continue to follow. Dr. Elizabeth Yancey I agree with the dictator's note, documented as a scribe by Stacey Mccoy.
[2023-11-17] MEDS: DEXTROSE 5% IN WATER 1,000 ML with SODIUM BICARB (1 MEQ/ML) 150 ML IV SCH (15:15)
[2023-11-17 16:27] LABS: Glucose,Whole Blood 167 mg/dL (70-110)
--- NOTE | 2023-11-17 16:48 | P.NPCON ---
History of Present Illness - Reason for Consult acute renal failure - History of Present Illness Patient is a 73-year-old male with history of chronic kidney disease NKF stage 3B to 4 with baseline creatinine around 2 mg/dL. Patient was recently discharged from the hospital on 10/12/2025 after hospitalization for UTI. With acute kidney injury. Serum creatinine has decreased to about 2.2 from 4.78 at peak. Readmitted this time with complaints of increased weakness. History of significantly decreased oral intake. No history of nausea vomiting or diarrhea. No history of fever or chills. History of urine retention during last admission status post Nair catheter placement. Underlying history of nephrolithiasis with known obstructive calculus during the last admission. Serum creatinine this admission is 5.2. CO2 was less than 5. Indwelling Nair catheter with 850 mL of urine charted. Blood pressure has not been low. Review of Systems As per HPI Past Medical History Past Medical History: Atrial Fibrillation, Blood Disorder, Eye Disorder, GERD/Reflux, GI Bleed, Hearing Disorder / Deafness, Hyperlipidemia, Hypertension, Musculoskeletal Disorder, Pneumonia, Rheumatoid Arthritis (RA), Skin Disorder, Supraventricular Tachycardia (SVT) Additional Past Medical History / Comment(s): hx CROHN'S (takes tresa), IBS, chronic diarrhea, migraines-, hx ulcers, anemia, gout, kidney stones, psoriasis, bilateral tinnitis., pinched sciatic nerve, C-Diff 2017, neuropathy, COMPLICATED UTI PYELONEPHRITIS, HEART RATE NORMALLY 50'S History of Any Multi-Drug Resistant Organisms: C-DIFF, MRSA Date of last positivie culture/infection: stool MDRO Source:: 2017 Past Surgical History: Ablation, Bowel Resection, Cardiac Ablation, Cholecystectomy, Heart Catheterization, Hernia Repair, Joint Replacement, Orthopedic Surgery, Tonsillectomy Additional Past Surgical History / Comment(s): 1/3 of stomach removed (partial gastrectomy), ulcers, bowel resections, fecal transplant 2017, bilateral knee arthroscopic surgery, EGD/colonoscopies, R inguinal hernia repair, bilat cataract removal, TOTAL LEFT KNEE. MULTIPLE CYSTOS, PICC 05/11 Past Anesthesia/Blood Transfusion Reactions: Blood Transfusion Reaction, Motion Sickness Additional Past Anesthesia/Blood Transfusion Reaction / Comment(s): BLOOD TRANSFUSION- BROKE OUT IN HIVES age 21 Past Psychological History: Anxiety Additional Psychological History / Comment(s): denies Smoking Status: Never smoker Past Alcohol Use History: None Reported, Occasional Additional Past Alcohol Use History / Comment(s): FORMER every other day 2-3 beers per patient. 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 - Past Family History Mother Family Medical History: No Reported History, Pulmonary Embolus Additional Family Medical History / Comment(s): AGE 73-[place], STROKE DURING CARATID PROCEDURE Medications and Allergies Home Medications Medication Instructions Recorded Confirmed Type Tamsulosin [Flomax] 0.4 mg PO BID 07/29/23 11/16/23 History Magnesium Oxide [Mag-Ox] 400 mg PO BID #60 tab 09/07/23 11/16/23 Rx Buprenorphine HCl/Naloxone HCl 1 film SL BID 09/09/23 11/16/23 History [Suboxone 4 mg-1 mg Sl Film] Sodium Bicarbonate Tab 1,300 mg PO BID 30 Days #120 tab 10/13/23 11/16/23 Rx Adalimumab [Humira Pen] 40 mg SQ Q14D 11/16/23 11/16/23 History Ferrous Sulfate [Feosol] 325 mg PO DAILY 11/16/23 11/16/23 History amLODIPine [Norvasc] 10 mg PO DAILY 11/16/23 11/16/23 History cloNIDine HCL [Catapres] 0.1 mg PO BID 11/16/23 11/16/23 History Allergies Allergy/AdvReac Type Severity Reaction Status Date / Time Iodinated Contrast Media Allergy Anaphylaxis Verified 11/16/23 14:53 [Iodinated Contrast Media - IV Dye] Physical Exam Vitals: Vital Signs Temp Pulse Pulse Resp BP BP BP 11/17/23 14:30 96.8 F L 70 14 127/61 11/17/23 07:04 95.7 F L 87 14 134/88 11/17/23 01:49 97.5 F L 65 18 135/71 11/16/23 22:12 97.8 F 55 L 18 126/72 11/16/23 21:42 97.1 F L 93 18 119/98 11/16/23 20:16 91 20 131/81 11/16/23 18:00 78 18 150/68 11/16/23 17:00 71 16 146/59 Pulse Ox 11/17/23 14:30 99 11/17/23 07:04 96 11/17/23 01:49 98 11/16/23 22:12 98 11/16/23 21:42 100 11/16/23 20:16 96 11/16/23 18:00 98 11/16/23 17:00 98 Intake and Output 11/17/23 11/17/23 11/17/23 06:59 14:59 22:59 Intake Total 10 Output Total 450 Balance -450 10 Intake: Oral 10 Output: Urine 450 Other: Voiding Method Indwelling Catheter Weight 52.617 kg Patient is awake, comfortable, no acute distress. Appears cachectic. Examination of the heart S1 and S2 Examination of the lungs bilateral breath sounds are heard Abdomen is soft nontender Examination of lower extremities shows no significant edema. CLINICAL ASSOCIATE exam shows no motor deficits Results - Lab Results Most recent lab results Calcium 8.6 mg/dL (8.7-10.3) L 11/17/23 05:07 11/17/23 05:13 11/17/23 05:07 Assessment and Plan Assessment: 1. Acute kidney injury, ATN, no evidence of obstructive uropathy on CT of the abdomen and pelvis. 2. Chronic kidney disease NKF stage IIIb-IV with baseline creatinine around 2 mg/dL with recent episode of acute kidney injury with peak creatinine at 4.7 and decreased to 2.2 on 10/13/2023 at time of discharge. 3. Severe metabolic acidosis associated with acute kidney injury and GI loss from Crohn's disease, although no significant diarrhea reported. 4. Nephrolithiasis with no evidence of obstructive uropathy. 5. Pyuria rule out UTI 6. History of GI bleed 7. Crohn's disease, Humira on hold Plan: Start IV bicarb Repeat labs this evening and in a.m. Avoid nephrotoxic agents Patient will need renal replacement therapy if no improvement in renal function over the next 24 to 48 hours. Empiric antibiotics Thank you for the consultation. We will continue to follow the patient with you during his hospitalization.
[2023-11-17] MEDS ORDERED: ONDANSETRON 4 MG/2 ML VIAL IVP PRN (19:00)
[2023-11-17 20:47] LABS: Glucose,Whole Blood 143 mg/dL (70-110)
[2023-11-17] MEDS: HEPARIN SODIUM,PORCINE 5,000 UNIT/ML 1 ML VIAL SQ SCH (21:56)
[2023-11-17] MEDS: FAMOTIDINE 20 MG/2 ML VIAL IV SCH (21:56)
[2023-11-17] MEDS: TAMSULOSIN 0.4 MG CAP.ER.24H PO SCH (21:56)
[2023-11-18 04:53] LABS: African American GFR (CKD) 17 (>60 ml/min/1.73 sqM); Non-African American GFR(CKD) 15 (>60 ml/min/1.73 sqM)
[2023-11-18 06:17] LABS: Glucose,Whole Blood 190 mg/dL (70-110)
[2023-11-18 11:30] LABS: Glucose,Whole Blood 152 mg/dL (70-110)
[2023-11-18] MEDS: VANCOMYCIN 1,000 MG in SODIUM CHLORIDE 0.9% 250 ML IVPB ONE (12:40)
--- NOTE | 2023-11-18 12:52 | P.PN ---
Subjective patient is seen for follow-up for acute kidney injury and chronic kidney disease. Currently maintained on IV fluids. He states he is feeling better today. 24 hour urine output at 750 ML. Blood pressure is not low. Oral intake remains poor. Serum creatinine improved to 3.8 from 5.2 on initial admission. Objective - Vital Signs Vital signs: Vital Signs Temp 97.6 F 11/18/23 07:09 Pulse 87 11/18/23 07:09 Resp 17 11/18/23 07:09 BP 111/60 11/18/23 07:09 Pulse Ox 99 11/18/23 07:09 FiO2 Intake & Output 11/17/23 11/18/23 11/18/23 18:59 06:59 18:59 Intake Total 10 Output Total 650 100 800 Balance -640 -100 -800 Weight 52.617 kg Intake: Oral 10 Output: Urine 650 100 800 Other: Voiding Method Indwelling Catheter Indwelling Catheter Indwelling Catheter - Exam Patient is awake, comfortable, no acute distress. Appears cachectic. Examination of the heart S1 and S2 Examination of the lungs bilateral breath sounds are heard Abdomen is soft nontender Examination of lower extremities shows no significant edema. PUBLIC HEALTH EDUCATOR exam shows no motor deficits - Labs CBC & Chem 7: 11/17/23 05:13 11/18/23 03:45 Labs: Abnormal Lab Results - Last 24 Hours (Table) 11/17/23 11/17/23 11/18/23 Range/Units 16:27 20:45 03:45 Creatinine 3.85 H (0.66-1.25) mg/dL POC Glucose (mg/dL) 167 H 143 H (70-110) mg/dL 11/18/23 11/18/23 Range/Units 06:15 11:28 Creatinine (0.66-1.25) mg/dL POC Glucose (mg/dL) 190 H 152 H (70-110) mg/dL Microbiology - Last 24 Hours (Table) 11/16/23 17:40 Blood Culture - Preliminary Blood Assessment and Plan Assessment: 1. Acute kidney injury, ATN, no evidence of obstructive uropathy on CT of the abdomen and pelvis. Renal function improved with IV hydration. 2. Chronic kidney disease NKF stage IIIb-IV with baseline creatinine around 2 mg/dL with recent episode of acute kidney injury with peak creatinine at 4.7 and decreased to 2.2 on 10/13/2023 at time of discharge. 3. Severe metabolic acidosis associated with acute kidney injury and GI loss from Crohn's disease, although no significant diarrhea reported. 4. Nephrolithiasis with no evidence of obstructive uropathy. 5. Pyuria rule out UTI 6. History of GI bleed 7. Crohn's disease, Humira on hold Plan: continue IV bicarb Repeat labs in a.m. Avoid nephrotoxic agents consult urology Empiric antibiotics
[2023-11-18 13:14] LABS: Blood Urea Nitrogen 99 mg/dL (9-20); Calcium 8.6 mg/dL (8.4-10.2); Chloride 113 mmol/L (98-107); Glucose 113 mg/dL (74-99); Potassium 3.7 mmol/L (3.5-5.1); Sodium 134 mmol/L (137-145)
[2023-11-18 13:33] LABS: Carbon Dioxide <5 mmol/L (22-30)
[2023-11-18 16:50] LABS: Glucose,Whole Blood 184 mg/dL (70-110)
--- NOTE | 2023-11-18 16:57 | P.PN ---
Subjective Progress Note Date: 11/18/23 73 years old male with past medical history of multiple medical problems. Patient somewhat is poor historian and hard of hearing. Information was obtained from the patient, medical record and the . I called Tami @[phone]. Patient presents because of what he thinks he had kidney infection for the last 1 week with possible also 2 weeks. He has very poor appetite and he lost weight. Patient also is getting more confused. He knows he is in the hospital and he knows it is 2023 but he cannot give details more about the place person and time. Currently he denies any specific pain but as per he has been holding his back for pain. He was thinking he has kidney infection but ultrasound showing multiple stones which might be contributing to his pain. He denies chest pain or dyspnea. He denies abdominal pain vomiting or diarrhea. He did not known to have dysuria. Nair catheter placed in the emergency room. Also patient is sleeping a lot Patient states that he went to see his PCP Dr. Saldaña about 2 weeks ago for abnormal lab work. Also patient was noticed to be on A-fib but he is not on anticoagulation. told me he is not anticoagulation since he was discharged from [facility] but she is not sure which hospital from [place] Patient is mildly hypothermic, rest of vitals looks stable. Creatinine went up from baseline 2.5-2.9 up to 5.2 on admission, Index at less than 5 Sodium 130 Hemoglobin 10.4 and WBC went up today to 12.6. INR is unremarkable as well as liver enzymes, amylase/lipase Influenza A and type B, RSV, SARS (coronavirus) are undetected Urine analysis looks abnormal suspicious for infection Renal ultrasound showed multiple bilateral kidney stones EKG showed sinus rhythm at 82 with multiple PACs Chest x-ray is negative for acute process Objective - Vital Signs Vital signs: Vital Signs Temp 97.6 F 11/18/23 07:09 Pulse 87 11/18/23 07:09 Resp 17 11/18/23 07:09 BP 111/60 11/18/23 07:09 Pulse Ox 99 11/18/23 07:09 FiO2 Intake & Output 11/17/23 11/18/23 11/18/23 18:59 06:59 18:59 Intake Total 10 Output Total 650 100 800 Balance -640 -100 -800 Weight 52.617 kg Intake: Oral 10 Output: Urine 650 100 800 Other: Voiding Method Indwelling Catheter Indwelling Catheter Indwelling Catheter - Exam --GENERAL: The patient is alert and oriented x1 partially, he is drowsy, not in any acute distress, thin built HEENT: Pupils are round and equally reacting to light. EOMI. No scleral icterus. No conjunctival pallor. Normocephalic, atraumatic. No pharyngeal erythema. No thyromegaly. CARDIOVASCULAR: S1 and S2 present. No murmurs, rubs, or gallops. PULMONARY: Chest is clear to auscultation, no wheezing , no crackles. -ABDOMEN: Soft, nontender, nondistended, normoactive bowel sounds. No palpable organomegaly. Nair catheter in place MUSCULOSKELETAL: No joint swelling or deformity. EXTREMITIES: No cyanosis, clubbing, or pedal edema. NEUROLOGICAL: Gross neurological examination did not reveal any focal deficits. SKIN: No rashes. no petechiae. - Labs CBC & Chem 7: 11/17/23 05:13 11/18/23 03:45 Labs: Abnormal Lab Results - Last 24 Hours (Table) 11/17/23 11/17/23 11/18/23 Range/Units 16:27 20:45 03:45 Creatinine 3.85 H (0.66-1.25) mg/dL POC Glucose (mg/dL) 167 H 143 H (70-110) mg/dL 11/18/23 11/18/23 Range/Units 06:15 11:28 Creatinine (0.66-1.25) mg/dL POC Glucose (mg/dL) 190 H 152 H (70-110) mg/dL Microbiology - Last 24 Hours (Table) 11/16/23 17:40 Blood Culture - Preliminary Blood Assessment and Plan Assessment: Acute on chronic kidney disease Possible acute urinary tract infection Loss of weight and with poor appetite for 1 to 2 weeks Bilateral renal calculi Toxic/metabolic encephalopathy History of Crohn's disease on Humira (held now) Severe calorie protein malnutrition Hypertension Atrial fibrillation. Currently not on anticoagulation History of GI bleed Hearing difficulty Hypertension Hyperlipidemia Rheumatoid arthritis History of supraventricular tachycardia Neuropathy Chronic anemia History of gout History of kidney stone History of psoriasis Bilateral tinnitus History of C. difficile Plan: Continue with sodium bicarb Follow-up renal function Continue with Nair catheter Nephrology consult Will consult GI service as patient has history of chronic disease on Humira (held) Also will order CT of the abdomen and pelvis and chest without contrast as he has history of anaphylaxis and because of his kidney disease Order CT of the brain Patient was started on ceftriaxone and IV vancomycin pharmacy to dose in the emergency room Follow-up blood culture and urine culture Labs and medication were reviewed.. Continue same treatment. Continue with symptomatic treatment. Resume home medication. Monitor labs and vitals. DVT and GI prophylaxis. Further recommendations as per clinical course of the patient DVT prophylaxis: Subcutaneous heparin GI Prophylaxis: Pepcid PT/OT: Pending
--- NOTE | 2023-11-18 20:01 | P.GSCN ---
History of Present Illness Consult date: 11/18/23 History of present illness: 73 yo male with multiple medical illnesses including crohns disease, kidney stones and crf. He was admitted with the symptoms of a uti. His ua was c/w a uti. He had a ct scan that showed bilateral small non obstructing kidney stones.. We were asked to see him for the uti. He is known to Dr Locke. He removed stones from the left ureter this year. He had a uti with sepsis, pyonephrosis due to an obstructing ureteral stone requiring a stent and ab before a formal stone and stent removal. The bacteria was methicillin resistant staph areus. He was in the hospital in September witha uti and retention. He comes again with a uti . His urine and blood cultures are negative. There is no evidence of obstructing stones at this point in time. Review of Systems All systems: negative Past Medical History Past Medical History: Atrial Fibrillation, Blood Disorder, Eye Disorder, GERD/Reflux, GI Bleed, Hearing Disorder / Deafness, Hyperlipidemia, Hypertension, Musculoskeletal Disorder, Pneumonia, Rheumatoid Arthritis (RA), Skin Disorder, Supraventricular Tachycardia (SVT) Additional Past Medical History / Comment(s): hx CROHN'S (takes tresa), IBS, chronic diarrhea, migraines-, hx ulcers, anemia, gout, kidney stones, psoriasis, bilateral tinnitis., pinched sciatic nerve, C-Diff 2017, neuropathy, COMPLICATED UTI PYELONEPHRITIS, HEART RATE NORMALLY 50'S History of Any Multi-Drug Resistant Organisms: C-DIFF, MRSA Year Discovered:: stool MDRO Source:: 2016 Past Surgical History: Ablation, Bowel Resection, Cardiac Ablation, Cholecy stectomy, Heart Catheterization, Hernia Repair, Joint Replacement, Orthopedic Surgery, Tonsillectomy Additional Past Surgical History / Comment(s): 1/3 of stomach removed (partial gastrectomy), ulcers, bowel resections, fecal transplant 2017, bilateral knee arthroscopic surgery, EGD/colonoscopies, R inguinal hernia repair, bilat cataract removal, TOTAL LEFT KNEE. MULTIPLE CYSTOS, PICC 05/11 Past Anesthesia/Blood Transfusion Reactions: Blood Transfusion Reaction, Motion Sickness Additional Past Anesthesia/Blood Transfusion Reaction / Comm: BLOOD TRANSFUSION- BROKE OUT IN HIVES age 21 Past Psychological History: Anxiety Additional Psychological History / Comment(s): denies Smoking Status: Never smoker Past Alcohol Use History: None Reported, Occasional Additional Past Alcohol Use History / Comment(s): FORMER every other day 2-3 beers per patient. 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 - Past Family History Mother Family Medical History: No Reported History, Pulmonary Embolus Additional Family Medical History / Comment(s): AGE 73-[place], STROKE DURING CARATID PROCEDURE Medications and Allergies Home Medications Medication Instructions Recorded Confirmed Type Tamsulosin [Flomax] 0.4 mg PO BID 07/29/23 11/16/23 History Magnesium Oxide [Mag-Ox] 400 mg PO BID #60 tab 09/07/23 11/16/23 Rx Buprenorphine HCl/Naloxone HCl 1 film SL BID 09/09/23 11/16/23 History [Suboxone 4 mg-1 mg Sl Film] Sodium Bicarbonate Tab 1,300 mg PO BID 30 Days #120 tab 10/13/23 11/16/23 Rx Adalimumab [Humira Pen] 40 mg SQ Q14D 11/16/23 11/16/23 History Ferrous Sulfate [Feosol] 325 mg PO DAILY 11/16/23 11/16/23 History amLODIPine [Norvasc] 10 mg PO DAILY 11/16/23 11/16/23 History cloNIDine HCL [Catapres] 0.1 mg PO BID 11/16/23 11/16/23 History Allergies Allergy/AdvReac Type Severity Reaction Status Date / Time Iodinated Contrast Media Allergy Anaphylaxis Verified 11/16/23 14:53 [Iodinated Contrast Media - IV Dye] Surgical - Exam Vital Signs Temp Pulse Resp BP Pulse Ox 97.4 F L 71 18 138/74 100 11/16/23 13:03 11/16/23 13:03 11/16/23 13:03 11/16/23 13:03 11/16/23 13:03 - General cachectic, chronically ill - Eyes PERRL - ENT no hearing loss - Neck no masses - Respiratory normal expansion - Abdomen Abdomen: soft, non tender - Genitourinary imdwelling catheter. - Integumentary no rash, no abnormal pigmentation - Neurologic no disoriented, no combative - Psychiatric oriented to time, oriented to person, oriented to place, speech is normal, memory intact Results - Labs 11/17/23 05:13 11/18/23 03:45 Abnormal Lab Results - Last 24 Hours (Table) 11/17/23 11/17/23 11/18/23 Range/Units 16:27 20:45 03:45 Sodium 134 L (137-145) mmol/L Chloride 113 H (98-107) mmol/L Carbon Dioxide <5 L* (22-30) mmol/L BUN 99 H (9-20) mg/dL Creatinine 3.85 H (0.66-1.25) mg/dL Glucose 113 H (74-99) mg/dL POC Glucose (mg/dL) 167 H 143 H (70-110) mg/dL 11/18/23 11/18/23 Range/Units 06:15 11:28 Sodium (137-145) mmol/L Chloride (98-107) mmol/L Carbon Dioxide (22-30) mmol/L BUN (9-20) mg/dL Creatinine (0.66-1.25) mg/dL Glucose (74-99) mg/dL POC Glucose (mg/dL) 190 H 152 H (70-110) mg/dL Microbiology - Last 24 Hours (Table) 11/16/23 17:40 Blood Culture - Preliminary Blood Diabetes panel 11/18/23 Range/Units 03:45 Sodium 134 L (137-145) mmol/L Potassium 3.7 (3.5-5.1) mmol/L Chloride 113 H (98-107) mmol/L Carbon Dioxide <5 L* (22-30) mmol/L BUN 99 H (9-20) mg/dL Creatinine 3.85 H (0.66-1.25) mg/dL Glucose 113 H (74-99) mg/dL Calcium 8.6 (8.4-10.2) mg/dL Calcium panel 11/18/23 Range/Units 03:45 Calcium 8.6 (8.4-10.2) mg/dL Pituitary panel 11/18/23 Range/Units 03:45 Sodium 134 L (137-145) mmol/L Potassium 3.7 (3.5-5.1) mmol/L Chloride 113 H (98-107) mmol/L Carbon Dioxide <5 L* (22-30) mmol/L BUN 99 H (9-20) mg/dL Creatinine 3.85 H (0.66-1.25) mg/dL Glucose 113 H (74-99) mg/dL Calcium 8.6 (8.4-10.2) mg/dL Adrenal panel 11/18/23 Range/Units 03:45 Sodium 134 L (137-145) mmol/L Potassium 3.7 (3.5-5.1) mmol/L Chloride 113 H (98-107) mmol/L Carbon Dioxide <5 L* (22-30) mmol/L BUN 99 H (9-20) mg/dL Creatinine 3.85 H (0.66-1.25) mg/dL Glucose 113 H (74-99) mg/dL Calcium 8.6 (8.4-10.2) mg/dL - Imaging CT scan - abdomen: report reviewed, image reviewed CT scan - pelvis: report reviewed, image reviewed Assessment and Plan Assessment: Impression: uti. non obstructing kidney stones. multiple medial illnesses Recommendations. The stones do not need attending to at present. There is nothing surgical at this point in time Pending cultures as to further recommendations. I had a lengthy discussion with about the cause of infection, stones, urine retention. We will follow
[2023-11-18 21:33] LABS: Glucose,Whole Blood 118 mg/dL (70-110)
[2023-11-19 06:13] LABS: Glucose,Whole Blood 145 mg/dL (70-110)
[2023-11-19 08:25] LABS: African American GFR (CKD) 23 (>60 ml/min/1.73 sqM); Non-African American GFR(CKD) 20 (>60 ml/min/1.73 sqM)
[2023-11-19] MEDS ORDERED: amLODIPine 10 MG TAB PO SCH (09:00)
[2023-11-19] MEDS ORDERED: cloNIDine HCL 0.1 MG TAB PO SCH (09:00)
[2023-11-19] MEDS ORDERED: FERROUS SULFATE 325 MG TAB PO SCH (09:00)
[2023-11-19] MEDS ORDERED: NON FORMULARY DRUG (Buprenorphine Hcl/Naloxone Hcl [Suboxone 4 Mg-1 Mg Sl Film] 1 EACH Fil SUBLINGUAL SCH (09:00)
[2023-11-19] MEDS ORDERED: MAGNESIUM OXIDE 400 MG TAB PO SCH (09:00)
[2023-11-19] MEDS: NON FORMULARY DRUG (Buprenorphine Hcl/Naloxone Hcl [Suboxone 4 Mg-1 Mg Sl Film] 1 EACH Fil SUBLINGUAL SCH (09:07)
[2023-11-19] MEDS: MAGNESIUM OXIDE 400 MG TAB PO SCH (09:08)
[2023-11-19] MEDS: cloNIDine HCL 0.1 MG TAB PO SCH (09:08)
[2023-11-19] MEDS: amLODIPine 10 MG TAB PO SCH (09:08)
[2023-11-19 11:19] LABS: Glucose,Whole Blood 166 mg/dL (70-110)
[2023-11-19 11:33] LABS: Vancomycin,Random 19.7 ug/mL
[2023-11-19 12:06] LABS: Potassium 3.5 mmol/L (3.5-5.1)
--- NOTE | 2023-11-19 13:24 | P.PN ---
Subjective Progress Note Date: 11/19/23 the patient is in the hospital with a uti and sepsis. the patient was in the hospital a month ago with a similar problem. In the winter Dr. Nicholsonform stent and eventual stone and stent removal for a septic stone.. 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 His stones are 97% calcium oxalate and a tiny percent uric acid. It is unlikely that the stones are infected. Urine infections have been staph aureus. He feels better this a.m. Objective - Vital Signs Vital signs: Vital Signs Temp 97.5 F L 11/19/23 08:00 Pulse 49 L 11/19/23 08:00 Resp 18 11/19/23 08:00 BP 120/64 11/19/23 08:00 Pulse Ox 99 11/19/23 08:00 FiO2 Intake & Output 11/18/23 11/19/23 11/19/23 18:59 06:59 18:59 Output Total 2600 675 Balance -2600 -675 Weight 52.617 kg Output: Urine 2600 675 Other: Voiding Method Indwelling Catheter Indwelling Catheter Indwelling Catheter # Bowel Movements 1 - Labs CBC & Chem 7: 11/17/23 05:13 11/19/23 07:34 Labs: Abnormal Lab Results - Last 24 Hours (Table) 11/18/23 11/18/23 11/18/23 Range/Units 03:45 16:48 21:31 Sodium 134 L (137-145) mmol/L Chloride 113 H (98-107) mmol/L Carbon Dioxide <5 L* (22-30) mmol/L BUN 99 H (9-20) mg/dL Creatinine (0.66-1.25) mg/dL Glucose 113 H (74-99) mg/dL POC Glucose (mg/dL) 184 H 118 H (70-110) mg/dL 11/19/23 11/19/23 11/19/23 Range/Units 06:11 07:34 07:34 Sodium 129 L (137-145) mmol/L Chloride (98-107) mmol/L Carbon Dioxide 16 L (22-30) mmol/L BUN 93 H (9-20) mg/dL Creatinine 3.02 H (0.66-1.25) mg/dL Glucose 122 H (74-99) mg/dL POC Glucose (mg/dL) 145 H (70-110) mg/dL 11/19/23 Range/Units 11:17 Sodium (137-145) mmol/L Chloride (98-107) mmol/L Carbon Dioxide (22-30) mmol/L BUN (9-20) mg/dL Creatinine (0.66-1.25) mg/dL Glucose (74-99) mg/dL POC Glucose (mg/dL) 166 H (70-110) mg/dL Microbiology - Last 24 Hours (Table) 11/16/23 17:40 Blood Culture - Preliminary Blood 11/17/23 13:44 Urine Culture - Final Urine,Catheterized 11/17/23 12:00 Nasal Screen MRSA/MSSA - Final Nasopharyngeal Swab Methicillin resist S. aureus 11/16/23 13:48 Urine Culture - Final Urine,Voided Assessment and Plan Assessment: impression: Urinary tract infection with sepsis. Crohn's. Kidney stones secondary to Crohn's. No evidence of obstructing stones.urine retention. Recommendations:patient should continue with antibiotics. Prior to discharge he may benefit from a voiding trial. We will follow.
[2023-11-19] MEDS: VANCOMYCIN 1,000 MG in SODIUM CHLORIDE 0.9% 250 ML IVPB SCH (15:36)
[2023-11-19 16:26] LABS: Glucose,Whole Blood 132 mg/dL (70-110)
--- NOTE | 2023-11-19 17:48 | P.PN ---
Subjective patient is seen for follow-up for acute kidney injury and chronic kidney disease. Currently maintained on IV fluids. He states he is feeling better today. 24 hour urine output at 3.2 L. Oral intake remains poor. Slowly improving. Serum creatinine improved to 3.0 from 5.2 on initial admission. Objective - Vital Signs Vital signs: Vital Signs Temp 97.3 F L 11/19/23 14:00 Pulse 63 11/19/23 14:00 Resp 17 11/19/23 14:00 BP 115/54 11/19/23 14:00 Pulse Ox 99 11/19/23 14:00 FiO2 Intake & Output 11/18/23 11/19/23 11/19/23 18:59 06:59 18:59 Output Total 2600 675 Balance -2600 -675 Weight 52.617 kg Output: Urine 2600 675 Other: Voiding Method Indwelling Catheter Indwelling Catheter Indwelling Catheter # Bowel Movements 1 - Exam Patient is awake, comfortable, no acute distress. Appears cachectic. Examination of the heart S1 and S2 Examination of the lungs bilateral breath sounds are heard Abdomen is soft nontender Examination of lower extremities shows no significant edema. 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 - Labs CBC & Chem 7: 11/17/23 05:13 11/19/23 07:34 Labs: Abnormal Lab Results - Last 24 Hours (Table) 11/18/23 11/19/23 11/19/23 Range/Units 21:31 06:11 07:34 Sodium (137-145) mmol/L Carbon Dioxide (22-30) mmol/L BUN (9-20) mg/dL Creatinine 3.02 H (0.66-1.25) mg/dL Glucose (74-99) mg/dL POC Glucose (mg/dL) 118 H 145 H (70-110) mg/dL 11/19/23 11/19/23 11/19/23 Range/Units 07:34 11:17 16:24 Sodium 129 L (137-145) mmol/L Carbon Dioxide 16 L (22-30) mmol/L BUN 93 H (9-20) mg/dL Creatinine (0.66-1.25) mg/dL Glucose 122 H (74-99) mg/dL POC Glucose (mg/dL) 166 H 132 H (70-110) mg/dL Microbiology - Last 24 Hours (Table) 11/16/23 17:40 Blood Culture - Preliminary Blood 11/17/23 13:44 Urine Culture - Final Urine,Catheterized 11/17/23 12:00 Nasal Screen MRSA/MSSA - Final Nasopharyngeal Swab Methicillin resist S. aureus 11/16/23 13:48 Urine Culture - Final Urine,Voided Assessment and Plan Assessment: 1. Acute kidney injury, ATN, no evidence of obstructive uropathy on CT of the abdomen and pelvis. Renal function improved with IV hydration. 2. Chronic kidney disease NKF stage IIIb-IV with baseline creatinine around 2 mg/dL with recent episode of acute kidney injury with peak creatinine at 4.7 and decreased to 2.2 on 10/13/2023 at time of discharge. 3. Severe metabolic acidosis associated with acute kidney injury and GI loss from Crohn's disease, although no significant diarrhea reported. 4. Nephrolithiasis with no evidence of obstructive uropathy. 5. Pyuria rule out UTI 6. History of GI bleed 7. Crohn's disease, Humira on hold Plan: continue IV bicarb Repeat labs in a.m. Avoid nephrotoxic agents Empiric antibiotics
--- NOTE | 2023-11-19 18:02 | P.PN ---
Subjective Progress Note Date: 11/19/23 73 years old male with past medical history of multiple medical problems. Patient somewhat is poor historian and hard of hearing. Information was obtained from the patient, medical record and the . I called Tami @[phone]. Patient presents because of what he thinks he had kidney infection for the last 1 week with possible also 2 weeks. He has very poor appetite and he lost weight. Patient also is getting more confused. He knows he is in the hospital and he knows it is 2023 but he cannot give details more about the place person and time. Currently he denies any specific pain but as per he has been holding his back for pain. He was thinking he has kidney infection but ultrasound showing multiple stones which might be contributing to his pain. He denies chest pain or dyspnea. He denies abdominal pain vomiting or diarrhea. He did not known to have dysuria. Nair catheter placed in the emergency room. Also patient is sleeping a lot Patient states that he went to see his PCP Dr. Saldaña about 2 weeks ago for abnormal lab work. Also patient was noticed to be on A-fib but he is not on anticoagulation. told me he is not anticoagulation since he was discharged from [facility] but she is not sure which hospital from [place] Patient is mildly hypothermic, rest of vitals looks stable. Creatinine went up from baseline 2.5-2.9 up to 5.2 on admission, Index at less than 5 Sodium 130 Hemoglobin 10.4 and WBC went up today to 12.6. INR is unremarkable as well as liver enzymes, amylase/lipase Influenza A and type B, RSV, SARS (coronavirus) are undetected Urine analysis looks abnormal suspicious for infection Renal ultrasound showed multiple bilateral kidney stones EKG showed sinus rhythm at 82 with multiple PACs Chest x-ray is negative for acute process 24-hour interval change 11/19/2023 Seen and evaluated with family at bedside; reports some improvement in oral intake; patient is sleepy but arousable Vital signs are reviewed and are stable Lab review shows sodium of 129, potassium 3.5, BUNs/creatinine of 93/3.02 and blood glucose of 122 Nephrology on board for acute renal injury likely ATN; recommending to continue with IV bicarb and repeat labs in the morning; continue to avoid nephrotoxins and hypotension Patient remains on IV vancomycin and ceftriaxone for complicated UTI GI on board for history of Crohn's disease and unintentional weight loss and planning EGD/colonoscopy next week if patient is stable in hospital Objective - Vital Signs Vital signs: Vital Signs Temp 97.5 F L 11/19/23 08:00 Pulse 49 L 11/19/23 08:00 Resp 18 11/19/23 08:00 BP 120/64 11/19/23 08:00 Pulse Ox 99 11/19/23 08:00 FiO2 Intake & Output 11/18/23 11/19/23 11/19/23 18:59 06:59 18:59 Output Total 2600 675 Balance -2600 -675 Weight 52.617 kg Output: Urine 2600 675 Other: Voiding Method Indwelling Catheter Indwelling Catheter Indwelling Catheter # Bowel Movements 1 - Exam --GENERAL: The patient is alert and oriented x1 partially, he is drowsy, not in any acute distress, thin built HEENT: Pupils are round and equally reacting to light. EOMI. No scleral icterus. No conjunctival pallor. Normocephalic, atraumatic. No pharyngeal erythema. No thyromegaly. CARDIOVASCULAR: S1 and S2 present. No murmurs, rubs, or gallops. PULMONARY: Chest is clear to auscultation, no wheezing , no crackles. -ABDOMEN: Soft, nontender, nondistended, normoactive bowel sounds. No palpable organomegaly. Nair catheter in place MUSCULOSKELETAL: No joint swelling or deformity. EXTREMITIES: No cyanosis, clubbing, or pedal edema. NEUROLOGICAL: Gross neurological examination did not reveal any focal deficits. SKIN: No rashes. no petechiae. - Labs CBC & Chem 7: 11/17/23 05:13 11/19/23 07:34 Labs: Abnormal Lab Results - Last 24 Hours (Table) 11/18/23 11/18/23 11/18/23 Range/Units 03:45 16:48 21:31 Sodium 134 L (137-145) mmol/L Chloride 113 H (98-107) mmol/L Carbon Dioxide <5 L* (22-30) mmol/L BUN 99 H (9-20) mg/dL Creatinine (0.66-1.25) mg/dL Glucose 113 H (74-99) mg/dL POC Glucose (mg/dL) 184 H 118 H (70-110) mg/dL 11/19/23 11/19/23 11/19/23 Range/Units 06:11 07:34 07:34 Sodium 129 L (137-145) mmol/L Chloride (98-107) mmol/L Carbon Dioxide 16 L (22-30) mmol/L BUN 93 H (9-20) mg/dL Creatinine 3.02 H (0.66-1.25) mg/dL Glucose 122 H (74-99) mg/dL POC Glucose (mg/dL) 145 H (70-110) mg/dL 11/19/23 Range/Units 11:17 Sodium (137-145) mmol/L Chloride (98-107) mmol/L Carbon Dioxide (22-30) mmol/L BUN (9-20) mg/dL Creatinine (0.66-1.25) mg/dL Glucose (74-99) mg/dL POC Glucose (mg/dL) 166 H (70-110) mg/dL Microbiology - Last 24 Hours (Table) 11/16/23 17:40 Blood Culture - Preliminary Blood 11/17/23 13:44 Urine Culture - Final Urine,Catheterized 11/17/23 12:00 Nasal Screen MRSA/MSSA - Final Nasopharyngeal Swab Methicillin resist S. aureus 11/16/23 13:48 Urine Culture - Final Urine,Voided Assessment and Plan Assessment: Acute on chronic kidney disease Possible acute urinary tract infection Loss of weight and with poor appetite for 1 to 2 weeks Bilateral renal calculi Toxic/metabolic encephalopathy History of Crohn's disease on Humira (held now) Severe calorie protein malnutrition Hypertension Atrial fibrillation. Currently not on anticoagulation History of GI bleed Hearing difficulty Hypertension Hyperlipidemia Rheumatoid arthritis History of supraventricular tachycardia Neuropathy Chronic anemia History of gout History of kidney stone History of psoriasis Bilateral tinnitus History of C. difficile Plan: Continue with sodium bicarb Follow-up renal function Continue with Nair catheter Nephrology consult Will consult GI service as patient has history of chronic disease on Humira (held) Also will order CT of the abdomen and pelvis and chest without contrast as he has history of anaphylaxis and because of his kidney disease Order CT of the brain Patient was started on ceftriaxone and IV vancomycin pharmacy to dose in the emergency room Follow-up blood culture and urine culture Labs and medication were reviewed.. Continue same treatment. Continue with symptomatic treatment. Resume home medication. Monitor labs and vitals. DVT and GI prophylaxis. Further recommendations as per clinical course of the patient DVT prophylaxis: Subcutaneous heparin GI Prophylaxis: Pepcid PT/OT: Pending
[2023-11-19 21:54] LABS: Glucose,Whole Blood 180 mg/dL (70-110)
[2023-11-20 06:29] LABS: Glucose,Whole Blood 148 mg/dL (70-110)
[2023-11-20 07:08] LABS: African American GFR (CKD) 30 (>60 ml/min/1.73 sqM); Anion Gap 9 mmol/L; Blood Urea Nitrogen 87 mg/dL (9-20); Calcium 7.9 mg/dL (8.4-10.2); Carbon Dioxide 24 mmol/L (22-30); Chloride 95 mmol/L (98-107); Glucose 118 mg/dL (74-99); Non-African American GFR(CKD) 26 (>60 ml/min/1.73 sqM); Potassium 3.4 mmol/L (3.5-5.1); Sodium 128 mmol/L (137-145)
[2023-11-20 09:35] LABS: Basophils # (A) 0.05 X 10*3/uL (0.00-0.10); Basophils % (A) 0.6 %; Eosinophils # (A) 0.17 X 10*3/uL (0.04-0.35); Eosinophils % (A) 2.2 %; HGB 8.3 g/dL (13.0-17.0); Lymphocytes # (A) 1.54 X 10*3/uL (0.90-5.00); Lymphocytes % (A) 19.6 %; MCH 26.3 pg (27.0-32.0); MCHC 30.7 g/dL (32.0-37.0); MCV 85.4 FL (80.0-97.0); Mean Platelet Volume 10.1 FL (9.5-12.2); Monocytes # (A) 0.78 X 10*3/uL (0.20-1.00); Monocytes % (A) 9.9 %; NRBC Per 100 WBC 0 X 10*3/uL (0.00-0.01); Neutrophils # (A) 5.31 X 10*3/uL (1.80-7.70); Neutrophils % (A) 67.4 %; Platelet Count 199 X 10*3/uL (140-440); RBC 3.16 X 10*6/uL (4.40-5.60); RDW 15.3 % (11.5-14.5); WBC 7.87 X 10*3/uL (4.50-10.00)
--- NOTE | 2023-11-20 11:25 | P.PN ---
Subjective Progress Note Date: 11/20/23 the patient is in the hospital with infection, probable urinary tract, acute and chronic renal failure. Patient also has multiple medical problems stemming from his Crohn's disease. He is feeling better.urine culture is negative but I believe he was on antibiotics. Objective - Vital Signs Vital signs: Vital Signs Temp 98.0 F 11/20/23 07:12 Pulse 47 L 11/20/23 07:50 Resp 17 11/20/23 07:50 BP 116/67 11/20/23 07:12 Pulse Ox 97 11/20/23 07:12 FiO2 Intake & Output 11/19/23 11/20/23 11/20/23 18:59 06:59 18:59 Output Total 1300 1000 Balance -1300 -1000 Output: Urine 1300 1000 Other: Voiding Method Indwelling Catheter Indwelling Catheter Indwelling Catheter # Bowel Movements 2 - Labs CBC & Chem 7: 11/20/23 06:09 11/20/23 06:09 Labs: Abnormal Lab Results - Last 24 Hours (Table) 11/19/23 11/19/23 11/19/23 Range/Units 07:34 16:24 21:36 RBC (4.40-5.60) X 10*6/uL Hgb (13.0-17.0) g/dL Hct (39.6-50.0) % MCH (27.0-32.0) pg MCHC (32.0-37.0) g/dL RDW (11.5-14.5) % Sodium 129 L (137-145) mmol/L Potassium (3.5-5.1) mmol/L Chloride (98-107) mmol/L Carbon Dioxide 16 L (22-30) mmol/L BUN 93 H (9-20) mg/dL Creatinine (0.66-1.25) mg/dL Glucose 122 H (74-99) mg/dL POC Glucose (mg/dL) 132 H 180 H (70-110) mg/dL Calcium (8.4-10.2) mg/dL 11/20/23 11/20/23 11/20/23 Range/Units 06:09 06:09 06:27 RBC 3.16 L (4.40-5.60) X 10*6/uL Hgb 8.3 L (13.0-17.0) g/dL Hct 27.0 L (39.6-50.0) % MCH 26.3 L (27.0-32.0) pg MCHC 30.7 L (32.0-37.0) g/dL RDW 15.3 H (11.5-14.5) % Sodium 128 L (137-145) mmol/L Potassium 3.4 L (3.5-5.1) mmol/L Chloride 95 L (98-107) mmol/L Carbon Dioxide (22-30) mmol/L BUN 87 H (9-20) mg/dL Creatinine 2.41 H (0.66-1.25) mg/dL Glucose 118 H (74-99) mg/dL POC Glucose (mg/dL) 148 H (70-110) mg/dL Calcium 7.9 L (8.4-10.2) mg/dL Microbiology - Last 24 Hours (Table) 11/16/23 17:40 Blood Culture - Preliminary Blood Assessment and Plan Assessment: impression: Urinary tract infection. Crohn's disease with weight loss. history of kidney stone disease related to Crohn's. Urinary retention Recommendations patient should continue on antibiotics. We will follow
[2023-11-20 11:30] LABS: Glucose,Whole Blood 179 mg/dL (70-110)
--- NOTE | 2023-11-20 12:54 | P.PN ---
Subjective patient is seen for follow-up for acute kidney injury and chronic kidney disease. Currently maintained on IV fluids. He states he is feeling better today. 24 hour urine output at 2.3 L. Oral intake remains poor. Slowly improving. Serum creatinine improved to 2.4 from 5.2 on initial admission. Objective - Vital Signs Vital signs: Vital Signs Temp 98.0 F 11/20/23 07:12 Pulse 47 L 11/20/23 07:50 Resp 17 11/20/23 07:50 BP 116/67 11/20/23 07:12 Pulse Ox 97 11/20/23 07:12 FiO2 Intake & Output 11/19/23 11/20/23 11/20/23 18:59 06:59 18:59 Output Total 1300 1000 Balance -1300 -1000 Output: Urine 1300 1000 Other: Voiding Method Indwelling Catheter Indwelling Catheter Indwelling Catheter # Bowel Movements 2 - Exam Patient is awake, comfortable, no acute distress. Appears cachectic. Examination of the heart S1 and S2 Examination of the lungs bilateral breath sounds are heard Abdomen is soft nontender Examination of lower extremities shows no significant edema. 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 - Labs CBC & Chem 7: 11/20/23 06:09 11/20/23 06:09 Labs: Abnormal Lab Results - Last 24 Hours (Table) 11/19/23 11/19/23 11/20/23 Range/Units 16:24 21:36 06:09 RBC (4.40-5.60) X 10*6/uL Hgb (13.0-17.0) g/dL Hct (39.6-50.0) % MCH (27.0-32.0) pg MCHC (32.0-37.0) g/dL RDW (11.5-14.5) % Sodium 128 L (137-145) mmol/L Potassium 3.4 L (3.5-5.1) mmol/L Chloride 95 L (98-107) mmol/L BUN 87 H (9-20) mg/dL Creatinine 2.41 H (0.66-1.25) mg/dL Glucose 118 H (74-99) mg/dL POC Glucose (mg/dL) 132 H 180 H (70-110) mg/dL Calcium 7.9 L (8.4-10.2) mg/dL 11/20/23 11/20/2324 Range/Units 06:09 06:27 11:28 RBC 3.16 L (4.40-5.60) X 10*6/uL Hgb 8.3 L (13.0-17.0) g/dL Hct 27.0 L (39.6-50.0) % MCH 26.3 L (27.0-32.0) pg MCHC 30.7 L (32.0-37.0) g/dL RDW 15.3 H (11.5-14.5) % Sodium (137-145) mmol/L Potassium (3.5-5.1) mmol/L Chloride (98-107) mmol/L BUN (9-20) mg/dL Creatinine (0.66-1.25) mg/dL Glucose (74-99) mg/dL POC Glucose (mg/dL) 148 H 179 H (70-110) mg/dL Calcium (8.4-10.2) mg/dL Microbiology - Last 24 Hours (Table) 11/16/23 17:40 Blood Culture - Preliminary Blood Assessment and Plan Assessment: 1. Acute kidney injury, ATN, no evidence of obstructive uropathy on CT of the abdomen and pelvis. Renal function improved with IV hydration. 2. Chronic kidney disease NKF stage IIIb-IV with baseline creatinine around 2 mg/dL with recent episode of acute kidney injury with peak creatinine at 4.7 and decreased to 2.2 on 10/13/2023 at time of discharge. 3. Severe metabolic acidosis associated with acute kidney injury and GI loss from Crohn's disease, although no significant diarrhea reported. 4. Nephrolithiasis with no evidence of obstructive uropathy. 5. Pyuria rule out UTI 6. History of GI bleed 7. Crohn's disease, Humira on hold Plan: change IV fluids to Ringer lactate. Replace potassium Repeat labs in a.m. Avoid nephrotoxic agents Empiric antibiotics
[2023-11-20] MEDS: LACTATED RINGERS 1,000 ML IV SCH (14:19)
[2023-11-20] MEDS: POTASSIUM CHLORIDE ER 20 MEQ TAB.ER PO STA (14:19)
[2023-11-20 16:20] LABS: Glucose,Whole Blood 185 mg/dL (70-110)
--- NOTE | 2023-11-20 17:19 | P.PN ---
Subjective Progress Note Date: 11/20/23 73 years old male with past medical history of multiple medical problems. Patient somewhat is poor historian and hard of hearing. Information was obtained from the patient, medical record and the . I called Tami @[phone]. Patient presents because of what he thinks he had kidney infection for the last 1 week with possible also 2 weeks. He has very poor appetite and he lost weight. Patient also is getting more confused. He knows he is in the hospital and he knows it is 2023 but he cannot give details more about the place person and time. Currently he denies any specific pain but as per he has been holding his back for pain. He was thinking he has kidney infection but ultrasound showing multiple stones which might be contributing to his pain. He denies chest pain or dyspnea. He denies abdominal pain vomiting or diarrhea. He did not known to have dysuria. Nair catheter placed in the emergency room. Also patient is sleeping a lot Patient states that he went to see his PCP Dr. Saldaña about 2 weeks ago for abnormal lab work. Also patient was noticed to be on A-fib but he is not on anticoagulation. told me he is not anticoagulation since he was discharged from [facility] but she is not sure which hospital from [place] Patient is mildly hypothermic, rest of vitals looks stable. Creatinine went up from baseline 2.5-2.9 up to 5.2 on admission, Index at less than 5 Sodium 130 Hemoglobin 10.4 and WBC went up today to 12.6. INR is unremarkable as well as liver enzymes, amylase/lipase Influenza A and type B, RSV, SARS (coronavirus) are undetected Urine analysis looks abnormal suspicious for infection Renal ultrasound showed multiple bilateral kidney stones EKG showed sinus rhythm at 82 with multiple PACs Chest x-ray is negative for acute process 24-hour interval change 11/19/2023 Seen and evaluated with family at bedside; reports some improvement in oral intake; patient is sleepy but arousable Vital signs are reviewed and are stable Lab review shows sodium of 129, potassium 3.5, BUNs/creatinine of 93/3.02 and blood glucose of 122 Nephrology on board for acute renal injury likely ATN; recommending to continue with IV bicarb and repeat labs in the morning; continue to avoid nephrotoxins and hypotension Patient remains on IV vancomycin and ceftriaxone for complicated UTI GI on board for history of Crohn's disease and unintentional weight loss and planning EGD/colonoscopy next week if patient is stable in hospital 11/20/2023 Patient is seen and evaluated; family at bedside; reports poor oral intake but improved in last 2 days Vital signs are reviewed and remained stable Lab review shows WBC of 7.8, hemoglobin 8.3 and platelet count of 199, sodium 128, potassium 3.4, BUNs/creatinine of 87/2.41 Sodium level continues to trend down likely related to poor oral intake; will start slow IV fluid hydration with normal saline; supplement potassium Nephrology on board; acute renal injury likely related to ATN; patient continues to show improvement with creatinine at 2.41 down from 5.2 upon admission Objective - Vital Signs Vital signs: Vital Signs Temp 98.0 F 11/20/23 07:12 Pulse 47 L 11/20/23 07:50 Resp 17 11/20/23 07:50 BP 116/67 11/20/23 07:12 Pulse Ox 97 11/20/23 07:12 FiO2 Intake & Output 11/19/23 11/20/23 11/20/23 18:59 06:59 18:59 Output Total 1300 1000 Balance -1300 -1000 Output: Urine 1300 1000 Other: Voiding Method Indwelling Catheter Indwelling Catheter Indwelling Catheter # Bowel Movements 2 - Exam --GENERAL: The patient is alert and oriented x1 partially, he is drowsy, not in any acute distress, thin built HEENT: Pupils are round and equally reacting to light. EOMI. No scleral icterus. No conjunctival pallor. Normocephalic, atraumatic. No pharyngeal erythema. No thyromegaly. CARDIOVASCULAR: S1 and S2 present. No murmurs, rubs, or gallops. PULMONARY: Chest is clear to auscultation, no wheezing , no crackles. -ABDOMEN: Soft, nontender, nondistended, normoactive bowel sounds. No palpable organomegaly. Nair catheter in place MUSCULOSKELETAL: No joint swelling or deformity. EXTREMITIES: No cyanosis, clubbing, or pedal edema. NEUROLOGICAL: Gross neurological examination did not reveal any focal deficits. SKIN: No rashes. no petechiae. - Labs CBC & Chem 7: 11/20/23 06:09 11/20/23 06:09 Labs: Abnormal Lab Results - Last 24 Hours (Table) 11/19/23 11/19/23 11/20/23 Range/Units 16:24 21:36 06:09 RBC (4.40-5.60) X 10*6/uL Hgb (13.0-17.0) g/dL Hct (39.6-50.0) % MCH (27.0-32.0) pg MCHC (32.0-37.0) g/dL RDW (11.5-14.5) % Sodium 128 L (137-145) mmol/L Potassium 3.4 L (3.5-5.1) mmol/L Chloride 95 L (98-107) mmol/L BUN 87 H (9-20) mg/dL Creatinine 2.41 H (0.66-1.25) mg/dL Glucose 118 H (74-99) mg/dL POC Glucose (mg/dL) 132 H 180 H (70-110) mg/dL Calcium 7.9 L (8.4-10.2) mg/dL 11/20/23 11/20/23 11/20/23 Range/Units 06:09 06:27 11:28 RBC 3.16 L (4.40-5.60) X 10*6/uL Hgb 8.3 L (13.0-17.0) g/dL Hct 27.0 L (39.6-50.0) % MCH 26.3 L (27.0-32.0) pg MCHC 30.7 L (32.0-37.0) g/dL RDW 15.3 H (11.5-14.5) % Sodium (137-145) mmol/L Potassium (3.5-5.1) mmol/L Chloride (98-107) mmol/L BUN (9-20) mg/dL Creatinine (0.66-1.25) mg/dL Glucose (74-99) mg/dL POC Glucose (mg/dL) 148 H 179 H (70-110) mg/dL Calcium (8.4-10.2) mg/dL Microbiology - Last 24 Hours (Table) 11/16/23 17:40 Blood Culture - Preliminary Blood Assessment and Plan Assessment: Acute on chronic kidney disease Possible acute urinary tract infection Loss of weight and with poor appetite for 1 to 2 weeks Bilateral renal calculi Toxic/metabolic encephalopathy History of Crohn's disease on Humira (held now) Severe calorie protein malnutrition Hypertension Atrial fibrillation. Currently not on anticoagulation History of GI bleed Hearing difficulty Hypertension Hyperlipidemia Rheumatoid arthritis History of supraventricular tachycardia Neuropathy Chronic anemia History of gout History of kidney stone History of psoriasis Bilateral tinnitus History of C. difficile Plan: Continue with sodium bicarb Follow-up renal function Continue with Nair catheter Nephrology consult Will consult GI service as patient has history of chronic disease on Humira (held) Also will order CT of the abdomen and pelvis and chest without contrast as he has history of anaphylaxis and because of his kidney disease Order CT of the brain Patient was started on ceftriaxone and IV vancomycin pharmacy to dose in the emergency room Follow-up blood culture and urine culture Labs and medication were reviewed.. Continue same treatment. Continue with symptomatic treatment. Resume home medication. Monitor labs and vitals. DVT and GI prophylaxis. Further recommendations as per clinical course of the patient DVT prophylaxis: Subcutaneous heparin GI Prophylaxis: Pepcid PT/OT: Pending
[2023-11-20 20:54] LABS: Glucose,Whole Blood 212 mg/dL (70-110)
[2023-11-20] MEDS ORDERED: ZINC OXIDE PASTE (Z-GUARD) 1 APPLIC TOPICAL PRN (21:56)
[2023-11-21 05:59] LABS: Glucose,Whole Blood 126 mg/dL (70-110)
[2023-11-21 07:23] VITALS: BP 122/49; PULSE 49; RESP 14; TEMP 98.3
[2023-11-21] MEDS ORDERED: HEPARIN SODIUM,PORCINE 5,000 UNIT/ML 1 ML VIAL ONE ×2 (09:17→21:58)
[2023-11-21] MEDS ORDERED: amLODIPine 10 MG TAB ONE (09:17)
[2023-11-21] MEDS ORDERED: cloNIDine HCL 0.1 MG TAB ONE ×2 (09:17→21:58)
[2023-11-21] MEDS ORDERED: MAGNESIUM OXIDE 400 MG TAB ONE ×2 (09:17→21:58)
[2023-11-21] MEDS ORDERED: TAMSULOSIN 0.4 MG CAP.ER.24H PO ONE ×2 (09:17→21:58)
[2023-11-21] MEDS ORDERED: SODIUM CHLORIDE 0.9% 50 ML ONE (09:18)
[2023-11-21] MEDS ORDERED: cefTRIAXone 2 GM VIAL ONE (09:18)
[2023-11-21 11:27] LABS: Glucose,Whole Blood 106 mg/dL (70-110)
[2023-11-21] MEDS ORDERED: VANCOMYCIN TROUGH DUE 1 EACH MISC MISCELLANE ONE (12:00)
[2023-11-21 16:01] LABS: Glucose,Whole Blood 144 mg/dL (70-110)
[2023-11-21 20:27] LABS: Glucose,Whole Blood 114 mg/dL (70-110)
[2023-11-21] MEDS ORDERED: FAMOTIDINE 20 MG/2 ML VIAL ONE (21:59)
[2023-11-21] MEDS ORDERED: SODIUM CHLORIDE 0.9% 250 ML BAG ONE (23:59)
[2023-11-21] MEDS ORDERED: PEG 3350 (236 GM/BTL) + LYTES 4,000 ML BOTTLE ONE (23:59)
[2023-11-21] MEDS ORDERED: SODIUM CHLORIDE 0.9% 50 ML BAG ONE (23:59)
[2023-11-22 06:03] LABS: Glucose,Whole Blood 125 mg/dL (70-110)
[2023-11-22] MEDS ORDERED: LACTATED RINGERS 1,000 ML BAG ONE (08:00)
[2023-11-22] MEDS ORDERED: HEPARIN SODIUM,PORCINE 5,000 UNIT/ML 1 ML VIAL ONE ×2 (08:41→22:28)
[2023-11-22] MEDS ORDERED: cefTRIAXone 2 GM VIAL ONE (08:42)
[2023-11-22] MEDS ORDERED: amLODIPine 10 MG TAB ONE (08:42)
[2023-11-22] MEDS ORDERED: TAMSULOSIN 0.4 MG CAP.ER.24H PO ONE ×2 (08:42→22:29)
[2023-11-22] MEDS ORDERED: SODIUM CHLORIDE 0.9% 50 ML ONE (08:42)
[2023-11-22] MEDS ORDERED: MAGNESIUM OXIDE 400 MG TAB ONE ×2 (08:42→22:29)
[2023-11-22] MEDS ORDERED: cloNIDine HCL 0.1 MG TAB ONE ×2 (08:42→22:29)
[2023-11-22] MEDS ORDERED: PROPOFOL 10 MG/ML 20 ML VIAL IV ONE (08:53)
[2023-11-22] MEDS ORDERED: LIDOCAINE 1% INJ 10MG/ML (20 ML MDV) ONE (08:53)
[2023-11-22 11:37] LABS: Glucose,Whole Blood 116 mg/dL (70-110)
[2023-11-22 16:43] LABS: Glucose,Whole Blood 164 mg/dL (70-110)
[2023-11-22 21:09] LABS: Glucose,Whole Blood 149 mg/dL (70-110)
[2023-11-22] MEDS ORDERED: FAMOTIDINE 20 MG/2 ML VIAL ONE (22:31)
[2023-11-22] MEDS ORDERED: MAGNESIUM CITRATE 296 ML BOTTLE ONE (23:59)
[2023-11-22] MEDS ORDERED: SODIUM CHLORIDE TAB 1 GM TAB ONE (23:59)
[2023-11-23 06:06] LABS: Glucose,Whole Blood 99 mg/dL (70-110)
[2023-11-23] MEDS ORDERED: SODIUM CHLORIDE 0.9% 500 ML BAG ONE (08:15)
[2023-11-23] MEDS ORDERED: PROPOFOL 10 MG/ML 20 ML VIAL IV ONE (08:16)
[2023-11-23] MEDS ORDERED: HEPARIN SODIUM,PORCINE 5,000 UNIT/ML 1 ML VIAL ONE ×2 (09:10→22:26)
[2023-11-23] MEDS ORDERED: amLODIPine 10 MG TAB ONE (09:11)
[2023-11-23] MEDS ORDERED: MAGNESIUM OXIDE 400 MG TAB ONE (09:11)
[2023-11-23] MEDS ORDERED: SODIUM CHLORIDE 0.9% 50 ML ONE ×2 (09:11→09:20)
[2023-11-23] MEDS ORDERED: TAMSULOSIN 0.4 MG CAP.ER.24H PO ONE ×2 (09:11→22:27)
[2023-11-23] MEDS ORDERED: cloNIDine HCL 0.1 MG TAB ONE ×2 (09:11→22:27)
[2023-11-23] MEDS ORDERED: cefTRIAXone 2 GM VIAL ONE ×2 (09:11→09:20)
[2023-11-23 11:06] LABS: Glucose,Whole Blood 117 mg/dL (70-110)
[2023-11-23 16:12] LABS: Glucose,Whole Blood 107 mg/dL (70-110)
[2023-11-23 20:48] LABS: Glucose,Whole Blood 123 mg/dL (70-110)
[2023-11-23] MEDS ORDERED: FAMOTIDINE 20 MG/2 ML VIAL ONE (22:27)
[2023-11-23] MEDS ORDERED: SODIUM CHLORIDE 0.9% 50 ML BAG ONE (23:59)
[2023-11-23] MEDS ORDERED: PEG 3350 (236 GM/BTL) + LYTES 4,000 ML BOTTLE ONE (23:59)
[2023-11-23] MEDS ORDERED: SODIUM CHLORIDE 0.9% 250 ML BAG ONE (23:59)
[2023-11-23] MEDS ORDERED: LACTATED RINGERS 1,000 ML BAG ONE (23:59)
[2023-11-24 05:59] LABS: Glucose,Whole Blood 100 mg/dL (70-110)
[2023-11-24] MEDS ORDERED: MAGNESIUM OXIDE 400 MG TAB ONE (08:56)
[2023-11-24] MEDS ORDERED: cloNIDine HCL 0.1 MG TAB ONE (10:18)
[2023-11-24] MEDS ORDERED: TAMSULOSIN 0.4 MG CAP.ER.24H PO ONE (10:19)
[2023-11-24] MEDS ORDERED: SODIUM CHLORIDE 0.9% 50 ML ONE (10:19)
[2023-11-24] MEDS ORDERED: cefTRIAXone 2 GM VIAL ONE (10:19)
[2023-11-24] MEDS ORDERED: amLODIPine 10 MG TAB ONE (10:19)
[2023-11-24] MEDS ORDERED: LACTATED RINGERS 1,000 ML BAG ONE (11:18)
[2023-11-24] MEDS ORDERED: SODIUM CHLORIDE 0.9% 500 ML BAG ONE (11:18)
[2023-11-24] MEDS ORDERED: SODIUM CHLORIDE 0.9% 100 ML BAG IV ONE (11:18)
[2023-11-24] MEDS ORDERED: ceFAZolin 1,000 MG VIAL ONE (11:18)
[2023-11-24 11:22] LABS: Glucose,Whole Blood 84 mg/dL (70-110)
[2023-11-24] MEDS ORDERED: PROPOFOL 10 MG/ML 20 ML VIAL IV ONE (12:33)
[2023-11-24] MEDS ORDERED: LIDOCAINE 1% INJ 10MG/ML (20 ML MDV) ONE (12:33)
[2023-11-24 16:17] LABS: Glucose,Whole Blood 100 mg/dL (70-110)
[2023-11-24 21:08] LABS: Glucose,Whole Blood 102 mg/dL (70-110)
[2023-11-24] MEDS ORDERED: SODIUM CHLORIDE 0.9% 50 ML BAG ONE (23:59)
[2023-11-24] MEDS ORDERED: SODIUM CHLORIDE 0.9% 250 ML BAG ONE (23:59)
[2023-11-25 11:45] LABS: Glucose,Whole Blood 103 mg/dL (70-110)
[2023-11-25] MEDS ORDERED: HEPARIN SODIUM,PORCINE 5,000 UNIT/ML 1 ML VIAL ONE (22:24)
[2023-11-25] MEDS ORDERED: FAMOTIDINE 20 MG/2 ML VIAL ONE (22:24)
[2023-11-25] MEDS ORDERED: cloNIDine HCL 0.1 MG TAB ONE (22:24)
[2023-11-25] MEDS ORDERED: TAMSULOSIN 0.4 MG CAP.ER.24H PO ONE (22:24)
[2023-11-25] MEDS ORDERED: LACTATED RINGERS 1,000 ML BAG ONE (23:59)
[2023-11-25] MEDS ORDERED: SODIUM CHLORIDE 0.9% 250 ML BAG ONE (23:59)
[2023-11-25] MEDS ORDERED: SODIUM CHLORIDE 0.9% 50 ML BAG ONE (23:59)
[2023-11-25] MEDS ORDERED: NYSTATIN 100,000 UNIT/ML SUSP 500,000 UNIT/5 ML CUP ONE (23:59)
[2023-11-26] MEDS ORDERED: HEPARIN SODIUM,PORCINE 5,000 UNIT/ML 1 ML VIAL ONE ×2 (08:41→20:44)
[2023-11-26] MEDS ORDERED: TAMSULOSIN 0.4 MG CAP.ER.24H PO ONE ×2 (08:42→20:45)
[2023-11-26] MEDS ORDERED: amLODIPine 10 MG TAB ONE (08:42)
[2023-11-26] MEDS ORDERED: MAGNESIUM OXIDE 400 MG TAB ONE (08:42)
[2023-11-26] MEDS ORDERED: cloNIDine HCL 0.1 MG TAB ONE ×2 (08:42→20:45)
[2023-11-26] MEDS ORDERED: cefTRIAXone 2 GM VIAL ONE (08:43)
[2023-11-26] MEDS ORDERED: FAMOTIDINE 20 MG/2 ML VIAL ONE (20:45)
[2023-11-26] MEDS ORDERED: LACTATED RINGERS 1,000 ML BAG ONE (23:59)
[2023-11-26] MEDS ORDERED: SODIUM CHLORIDE 0.9% 250 ML BAG ONE (23:59)
[2023-11-26] MEDS ORDERED: NYSTATIN 100,000 UNIT/ML SUSP 500,000 UNIT/5 ML CUP ONE (23:59)
[2023-11-26] MEDS ORDERED: SODIUM CHLORIDE 0.9% 50 ML BAG ONE (23:59)
[2023-11-27] MEDS ORDERED: NYSTATIN 100,000 UNIT/ML SUSP 500,000 UNIT/5 ML CUP ONE (23:59)
[2023-11-27] MEDS ORDERED: SODIUM CHLORIDE 0.9% 50 ML BAG ONE (23:59)
[2023-11-27] MEDS ORDERED: SODIUM CHLORIDE 0.9% 250 ML BAG ONE (23:59)
[2023-11-27] MEDS ORDERED: DARBEPOETIN ALFA 40 MCG/0.4 ML SYRINGE ONE (23:59)
[2023-11-28] MEDS ORDERED: hydrALAZINE HCL 50 MG TAB ONE (08:47)
[2023-11-28] MEDS ORDERED: HEPARIN SODIUM,PORCINE 5,000 UNIT/ML 1 ML VIAL ONE (08:47)
[2023-11-28] MEDS ORDERED: MAGNESIUM OXIDE 400 MG TAB ONE (08:47)
[2023-11-28] MEDS ORDERED: TAMSULOSIN 0.4 MG CAP.ER.24H PO ONE (08:48)
[2023-11-28] MEDS ORDERED: cefTRIAXone 2 GM VIAL ONE (08:48)
[2023-11-28] MEDS ORDERED: amLODIPine 10 MG TAB ONE (08:48)
[2023-11-28] MEDS ORDERED: NYSTATIN 100,000 UNIT/ML SUSP 500,000 UNIT/5 ML CUP ONE (23:59)
[2023-11-28] MEDS ORDERED: SODIUM CHLORIDE 0.9% 250 ML BAG ONE (23:59)
[2023-11-28] MEDS ORDERED: SODIUM CHLORIDE 0.9% 50 ML BAG ONE (23:59)
[2023-11-29] MEDS ORDERED: NYSTATIN 100,000 UNIT/ML SUSP 500,000 UNIT/5 ML CUP ONE (12:00)
[2023-11-29] MEDS ORDERED: hydrALAZINE HCL 50 MG TAB ONE (12:00)
[2023-11-29] MEDS ORDERED: SODIUM CHLORIDE 0.9% 50 ML BAG ONE (12:00)
--- NOTE | 2023-12-09 15:51 | PN ---
PROGRESS NOTE DATE OF SERVICE: 11/26/2023 GANNON: [address] [place] [address]. REASON FOR VISIT: Urinary retention. HISTORY OF PRESENT ILLNESS: A Nair catheter was removed yesterday. The patient is voiding without difficulty. Postvoid residuals have been approximately 200 mL. IMPRESSION: 1. Urinary retention, resolved. 2. Bilateral renal calculi, nonobstructing. RECOMMENDATIONS: Leave Nair catheter out. The renal calculi will not require treatment unless he becomes symptomatic. Please notify us if we can be of any further assistance. MMODL / IJN: [id number] / MTDD
--- NOTE | 2023-12-09 15:52 | PN ---
PROGRESS NOTE GANNON: [address] [place] [address]. REASON FOR FOLLOWUP: Urinary tract infection. INTERVAL HISTORY: The patient is afebrile. The patient is currently breathing comfortably per at the bedside. The patient's appetite has improved. He is eating better. He did have some urinary frequency, but no burning has been reported. No vomiting or diarrhea has been reported. Overall feeling slightly better. PHYSICAL EXAMINATION: VITAL SIGNS: Blood pressure 161/70 with a pulse of 80, temperature 97.7. GENERAL: The patient is an elderly male, up in the bed, in no distress. RESPIRATORY SYSTEM: Unlabored breathing, clear to auscultation anteriorly. HEART: S1, S2, regular rate and rhythm. ABDOMEN: Soft, no tenderness. EXTREMITIES: No edema. LABS: White count 3.8, creatinine 1.57. Urine cultures currently pending. DIAGNOSTIC IMPRESSION AND PLAN: Patient with recurrent urinary tract infection. Current cultures are pending. Patient has been on vancomycin, Pharmacy to dose and Rocephin to continue. Nursing staff to call the lab to get a final report on the urine culture which is negative will be able to discontinue vancomycin. at the bedside. Questions were answered. MMODL / IJN: [id number] / MTDD
--- NOTE | 2023-12-09 15:52 | PN ---
Date of service is 11/28/2023 PROGRESS NOTE REASON FOR FOLLOWUP: Urinary tract infection. INTERVAL HISTORY: The patient is afebrile. The patient is complaining of feeling weak. Otherwise, no chest pain, shortness of breath, or cough. No nausea, no vomiting. No abdominal pain. Nair catheter has been discontinued. Denies any difficulty urination. PHYSICAL EXAMINATION: VITAL SIGNS: Blood pressure 156/56, pulse is 45, temperature 99.7. GENERAL DESCRIPTION: This is an elderly male, lying in bed, in no distress. RESPIRATORY SYSTEM: Unlabored breathing, clear to auscultation anteriorly. HEART: S1, S2. Regular rate and rhythm. ABDOMEN: Soft, no tenderness. EXTREMITIES: No edema in the feet. LABS: Urine culture still pending. DIAGNOSTIC IMPRESSION AND PLAN: The patient presented to the hospital with abnormal labs and concern for urinary tract infection. Urine was positive. Culture still pending. The patient is on vancomycin and Rocephin. If the culture remains to be negative, recommend to discontinue IV antibiotic, and short course of Ceftin on discharge. MMODL / IJN: [id number] / MTDD
--- NOTE | 2023-12-09 15:53 | PN ---
Date of service is 11/29/2023 PROGRESS NOTE REASON FOR FOLLOWUP: Urinary tract infection. INTERVAL HISTORY: The patient is afebrile. The patient is breathing comfortably. Denies having any chest pain, shortness of breath or cough. No nausea. No abdominal pain. No diarrhea. Complaining of feeling weak. PHYSICAL EXAMINATION: VITAL SIGNS: Blood pressure is 150/63, pulse of 49, temperature 98.1. GENERAL DESCRIPTION: This is an elderly male lying in bed in no distress. RESPIRATORY SYSTEM: Unlabored breathing. Clear to auscultation anteriorly. HEART: S1, S2. Regular rhythm and rate. ABDOMEN: Soft, no tenderness. EXTREMITIES: No edema of the feet. LABS: Creatinine 1.59. White count 4.31. Repeat urine culture negative. DIAGNOSTIC IMPRESSION AND PLAN: The patient admitted to hospital with abnormal labs. Did have a positive UA with concern for symptomatic urinary tract infection. Urine has been negative for the pathogen. We will discontinue vancomycin. He is on Rocephin, transition to short course of oral Ceftin on discharge. MMODL / IJN: [id number] / MTDD
[2023-12-14 09:10] LABS: HCT 23.6 % (39.0-53.0); HGB 7.3 gm/dL (13.0-17.5); MCH 26.2 pg (25.0-35.0); MCHC 31.2 g/dL (31.0-37.0); MCV 84.2 fL (80.0-100.0); RDW 15.5 % (11.5-15.5); WBC 5.1 k/uL (3.8-10.6)
[2023-12-14 09:11] LABS: Basophils % (A) 0 %; Eosinophils % (A) 4 %; Lymphocytes % (A) 19 %; Mean Platelet Volume 10.8; Monocytes % (A) 7 %; Neutrophils # (A) 3.5 k/uL (1.3-7.7); Neutrophils % (A) 68.5; Platelet Count 131 k/uL (150-450)
[2023-12-14 09:12] LABS: Eosinophils # (A) 0.2 k/uL (0-0.7); Monocytes # (A) 0.4 k/uL (0-1.0)
[2023-12-14 09:13] LABS: Anion Gap 3 mmol/L; Carbon Dioxide 29 mmol/L (22-30); Chloride 93 mmol/L (98-107); Glucose 98 mg/dL (74-99); Potassium 4.5 mmol/L (3.5-5.1); Sodium 125 mmol/L (137-145)
[2023-12-14 09:14] LABS: Blood Urea Nitrogen 73 mg/dL (9-20); Calcium 7.9 mg/dL (8.4-10.2)
--- NOTE | 2023-12-25 14:09 | CDI ---
Documentation Clarification Form Date: 12/25/2023 01:52:11 PM From: Christy Lara Phone: Admit Date: 11/16/2023 04:45:00 PM Patient Name: Silvano Rajan Visit Number: [id number] Discharge Date: 11/29/2023 04:00:00 PM ATTENTION: The Clinical Documentation Specialists (CDI) and [facility] Coding Staff appreciate your assistance in clarifying documentation. Please respond to the clarification below the line at the bottom and electronically sign. The CDI & [facility] Coding staff will review the response and follow-up if needed. Please note: Queries are made part of the Legal Health Record. If you have any questions, please contact the author of this message via ITS. Doctor/Provider: Minh Saldaña Sepsis is documented per 11/17 Consult Note, 11/18 PN and per PN 11/22 (pg 2 of 25 scanned notes) and following Progress Notes. Additional clarification is requested. History/Risk Factors: 73yo M, ACKD IIIB, chronic UTI w kelly calculi, ATN due to severe sepsis, severe PCM, t/m enceph, Crohns, HTN w urgency, A Fib, hyperkalemia, hypovolemia, hyponatremia, Suboxone dependent Clinical Indicators: WBC: 11/15 10.3 / 12.6 / 7.8 Urine WBC: >182 Lactic acid: 1.0 Cultures: urine and bloodculturesare negative Vitals signs: 11/15/2406/ 13:03 14:51 14:59 T 97.4 F KS 71 78 82 RR 18 BP138/74 O2 Sat 100 Treatment: Patient was started on ceftriaxone and IV vancomycin pharmacy to dose in the emergency room After work up and study, please clarify which diagnosis is most appropriate? [ x ] Sepsis, present on admission [ ] Sepsis, developed during stay, not present on admission as evidence by the following: (Please add rationale): [ ] Other, please specify [ ] Unable to determine (Template Last Reviewed: April 2023) MTDD
== END 2023-11-29 16:00 | disposition home health service (06) | DRG 871 ==
LOC: EC 13:01 → SUPCPDRO 13:01 → 4SSUR 16:45
PROVIDERS: ADMIT Internal Medicine; ATTEND Internal Medicine
PROC: 0DB88ZX Excision of Small Intestine, Via Natural or Artificial Opening Endoscopic, Diagnostic (ICD-10-PCS; principal; 2023-11-22)
PROC: 0DBA8ZX Excision of Jejunum, Via Natural or Artificial Opening Endoscopic, Diagnostic (ICD-10-PCS; 2023-11-22)
PROC: 30233N1 Transfusion of Nonautologous Red Blood Cells into Peripheral Vein, Percutaneous Approach (ICD-10-PCS; 2023-11-27)
DX: A41.9 Sepsis, unspecified organism (principal); E43 Unspecified severe protein-calorie malnutrition; N17.0 Acute kidney failure with tubular necrosis; G92.8 Other toxic encephalopathy; N39.0 Urinary tract infection, site not specified; K50.90 Crohn's disease, unspecified, without complications; F11.20 Opioid dependence, uncomplicated; K63.3 Ulcer of intestine; E87.20 Acidosis, unspecified; E87.1 Hypo-osmolality and hyponatremia; Z68.1 Body mass index [BMI] 19.9 or less, adult; R65.20 Severe sepsis without septic shock; M06.9 Rheumatoid arthritis, unspecified; N18.32 Chronic kidney disease, stage 3b; I48.91 Unspecified atrial fibrillation; Z94.89 Other transplanted organ and tissue status; D63.1 Anemia in chronic kidney disease; I12.9 Hypertensive chronic kidney disease with stage 1 through stage 4 chronic kidney disease, or unspecified chronic kidney disease; D50.9 Iron deficiency anemia, unspecified; E87.5 Hyperkalemia; Z53.8 Procedure and treatment not carried out for other reasons; E86.1 Hypovolemia; B37.9 Candidiasis, unspecified; I16.0 Hypertensive urgency; E78.5 Hyperlipidemia, unspecified; H91.90 Unspecified hearing loss, unspecified ear; G62.9 Polyneuropathy, unspecified; H93.13 Tinnitus, bilateral; N20.0 Calculus of kidney; R33.9 Retention of urine, unspecified; Z96.652 Presence of left artificial knee joint; Z79.620 Long term (current) use of immunosuppressive biologic; Z90.3 Acquired absence of stomach [part of]; Z90.49 Acquired absence of other specified parts of digestive tract; Z86.14 Personal history of Methicillin resistant Staphylococcus aureus infection; Z91.041 Radiographic dye allergy status; Z79.899 Other long term (current) drug therapy; Z11.52 Encounter for screening for COVID-19; Z87.19 Personal history of other diseases of the digestive system; Z86.79 Personal history of other diseases of the circulatory system; Z87.442 Personal history of urinary calculi; Z22.321 Carrier or suspected carrier of Methicillin susceptible Staphylococcus aureus; Z87.440 Personal history of urinary (tract) infections
CPT/HCPCS: 36410; 36415; 70450; 71045; 71250; 74176; 76770; 80048; 80051; 80053; 80202; 81001; 82150; 82565; 82728; 82947; 83540; 83550; 83605; 83690; 83735; 84132; 84443; 84520; 85025; 85610; 85730; 87040; 87070; 87086; 87636; 88305; 93005; 94640; 96365; 96366; 96368; 96375; 99285

== ENCOUNTER → 2023-11-23 | Day surgery (SDC) | payer BC, MEDICARE ==
[~2023-11-23] MED LIST changes: +ACETAMINOPHEN TAB 325 MG TAB ONE; +BUPRENORPHINE-NALOX 8-2 MG TAB 1 EACH TAB.SUBL SL ONE; +FAMOTIDINE 20 MG/2 ML VIAL ONE; +FUROSEMIDE 10 MG/ML 4 ML VIAL ONE; +HEPARIN SODIUM 1,000 UN/ML (10ML VL) ONE; +HEPARIN SODIUM,PORCINE 5,000 UNIT/ML 1 ML VIAL ONE; +HYDROmorphone 0.5 MG/0.5 ML SYRINGE ONE; +HYDROmorphone 1 MG/ML 1 ML SYRINGE ONE; -LACTATED RINGERS 1,000 ML IV SCH; -LIDOCAINE 1% (10MG/ML) FOR IV START INTRADERMA PRN; +LORazepam 2 MG/ML INJ ONE; +MAGNESIUM OXIDE 400 MG TAB ONE; +MORPHINE SULFATE 4 MG/ML SYRINGE ONE; +NITROGLYCERIN OINT 1 INCH/GM PACKET TOPICAL ONE; -ONDANSETRON 4 MG/2 ML VIAL IVP ONE; +PANTOPRAZOLE 40 MG/10 ML VIAL ONE; +PIPERACILLIN-TAZOBACTAM 3.375 GM VIAL ONE; +TAMSULOSIN 0.4 MG CAP.ER.24H PO ONE; -VANCOMYCIN 1,000 MG in SODIUM CHLORIDE 0.9% 250 ML IVPB PRN; +amLODIPine 10 MG TAB ONE; +cefTRIAXone 2 GM VIAL ONE; +cloNIDine HCL 0.1 MG TAB ONE; -droPERidol 5 MG/2 ML VIAL IVP ONE; +hydrALAZINE HCL 50 MG TAB ONE
== END ==
LOC: ORWHC2ENDO 08:00
PROVIDERS: ATTEND Internal Medicine Gastroenterology
DX: K50.90 Crohn's disease, unspecified, without complications (principal); I12.9 Hypertensive chronic kidney disease with stage 1 through stage 4 chronic kidney disease, or unspecified chronic kidney disease; Z53.8 Procedure and treatment not carried out for other reasons; N18.32 Chronic kidney disease, stage 3b; I48.91 Unspecified atrial fibrillation; H91.90 Unspecified hearing loss, unspecified ear; M06.9 Rheumatoid arthritis, unspecified; G62.9 Polyneuropathy, unspecified; D63.1 Anemia in chronic kidney disease; K63.3 Ulcer of intestine; E78.5 Hyperlipidemia, unspecified; Z96.652 Presence of left artificial knee joint; Z86.14 Personal history of Methicillin resistant Staphylococcus aureus infection; Z87.19 Personal history of other diseases of the digestive system; Z79.899 Other long term (current) drug therapy; Z91.041 Radiographic dye allergy status; Z98.890 Other specified postprocedural states
CPT/HCPCS: 43239; 45378; 45380

== ENCOUNTER 2023-12-08 13:01 | Inpatient (IN) | payer BC, MEDICARE ==
[~2023-12-08 13:01] MED LIST changes: -ACETAMINOPHEN TAB 325 MG TAB ONE; +ASPIRIN 81 MG ONE; -BUPRENORPHINE-NALOX 8-2 MG TAB 1 EACH TAB.SUBL SL ONE; +DILTIAZEM 125 MG/25 ML VIAL IV ONE; -FAMOTIDINE 20 MG/2 ML VIAL ONE; -FUROSEMIDE 10 MG/ML 4 ML VIAL ONE; -HEPARIN SODIUM 1,000 UN/ML (10ML VL) ONE; -HEPARIN SODIUM,PORCINE 5,000 UNIT/ML 1 ML VIAL ONE; -HYDROmorphone 0.5 MG/0.5 ML SYRINGE ONE; -HYDROmorphone 1 MG/ML 1 ML SYRINGE ONE; +INSULIN REGULAR 100 UNIT/ML VIAL (IV) ONE; -LORazepam 2 MG/ML INJ ONE; -MAGNESIUM OXIDE 400 MG TAB ONE; -MORPHINE SULFATE 4 MG/ML SYRINGE ONE; -NITROGLYCERIN OINT 1 INCH/GM PACKET TOPICAL ONE; -PANTOPRAZOLE 40 MG/10 ML VIAL ONE; -PIPERACILLIN-TAZOBACTAM 3.375 GM VIAL ONE; +SODIUM CHLORIDE 0.9% 100 ML BAG ONE; -TAMSULOSIN 0.4 MG CAP.ER.24H PO ONE; -amLODIPine 10 MG TAB ONE; -cefTRIAXone 2 GM VIAL ONE; -cloNIDine HCL 0.1 MG TAB ONE; -hydrALAZINE HCL 50 MG TAB ONE
[2023-12-08] MEDS ORDERED: DEXTROSE 50% SYRINGE 50 ML IVP ONE (13:14)
[2023-12-08] MEDS ORDERED: SODIUM BICARB 8.4% 50 ML SYR (1 MEQ/ML) ONE (13:15)
[2023-12-08] MEDS ORDERED: MORPHINE SULFATE 4 MG/ML SYRINGE ONE ×2 (13:15→18:57)
[2023-12-08] MEDS ORDERED: INSULIN REGULAR 100 UNIT/ML VIAL (IV) ONE (13:16)
[2023-12-08] MEDS ORDERED: ALBUTEROL NEB (CONC) 2.5 MG/0.5 ML INHALATION ONE (13:29)
[2023-12-08] MEDS ORDERED: SODIUM CHLORIDE 0.9% NEBULIZ 3 ML INHALATION ONE (13:30)
[2023-12-08] MEDS ORDERED: CALCIUM GLUCONATE IN NACL 100 ML IVPB ONE (13:44)
[2023-12-08] MEDS ORDERED: ONDANSETRON 4 MG/2 ML VIAL ONE (15:25)
[2023-12-08] MEDS ORDERED: MORPHINE SULFATE 2 MG/ML SYRINGE ONE (15:25)
[2023-12-08] MEDS ORDERED: traMADol 50 MG TAB ONE (16:57)
[2023-12-08] MEDS ORDERED: HYDROmorphone 1 MG/ML 1 ML SYRINGE ONE (17:54)
[2023-12-08] MEDS ORDERED: HEPARIN SOD,PORK IN 0.45% NACL 250 ML IV ONE (18:10)
[2023-12-08] MEDS ORDERED: FUROSEMIDE 10 MG/ML 4 ML VIAL ONE (20:52)
[2023-12-09] MEDS ORDERED: HYDROmorphone 1 MG/ML 1 ML SYRINGE ONE ×3 (20:12→23:35)
[2023-12-09] MEDS ORDERED: SODIUM BICARB 8.4% 50 ML VIAL (1 MEQ/ML) ONE (23:59)
[2023-12-09] MEDS ORDERED: DEXTROSE 5% IN WATER 1,000 ML BAG ONE (23:59)
[2023-12-09] MEDS ORDERED: DILTIAZEM 125 MG/25 ML VIAL IV ONE (23:59)
[2023-12-09] MEDS ORDERED: DEXTROSE 5% IN WATER 100 ML BAG IV ONE (23:59)
[2023-12-10] MEDS ORDERED: LORazepam 2 MG/ML INJ ONE ×3 (04:44→21:05)
[2023-12-10] MEDS ORDERED: NALOXONE 0.4 MG/ML 1 ML VIAL IV PRN (20:08)
[2023-12-10] MEDS ORDERED: MORPHINE SULFATE 100 MG/2ML 20ML (MDV) ONE (23:59)
[2023-12-10] MEDS ORDERED: ATROPINE OPHTH SOLN 1% 5ML BTL ONE (23:59)
[2023-12-10] MEDS ORDERED: SODIUM CHLORIDE 0.9% 100 ML BAG ONE (23:59)
[2023-12-11] MEDS ORDERED: ATROPINE OPHTH SOLN 1% 5ML BTL SUBLINGUAL PRN
[2023-12-11] MEDS ORDERED: SODIUM CHLORIDE 0.9% 1,000 ML IV SCH
[2023-12-11] MEDS ORDERED: HYDROmorphone 1 MG/ML 1 ML SYRINGE IVP PRN
[2023-12-11] MEDS ORDERED: LORazepam 2 MG/ML INJ IV PRN
[2023-12-11] MEDS ORDERED: ONDANSETRON 4 MG/2 ML VIAL IVP PRN
[2023-12-11] MEDS ORDERED: MORPHINE SULFATE (100 MG/2 ML) 100 MG in SODIUM CHLORIDE 0.9% 100 ML IV SCH
--- NOTE | 2023-12-11 10:01 | P.DS ---
Providers Date of admission: 12/08/23 13:01 Attending physician: Minh Saldaña Consults: 12/10/23 20:09 Consult Physician Routine Consulting Provider: Chloe Mirelse Consult Reason/Comments: CP, CHF, Afib Do you want consulting provider notified?: Already Contacted 12/10/23 20:10 Consult Physician Routine Consulting Provider: Madelyn Keith Consult Reason/Comments: RF Do you want consulting provider notified?: Already Contacted Primary care physician: Stated None Hospital Course: Patient was made comfort care and Please refer to paper chart for problem list. Electronic system was down up to 12/10/2023, everything documented on paper till then Plan - Discharge Summary New Discharge Prescriptions: No Action Buprenorphine HCl/Naloxone HCl [Suboxone 4 mg-1 mg Sl Film] 1 film SL BID Sodium Bicarbonate Tab 1,300 mg PO BID 30 Days #120 tab amLODIPine [Norvasc] 10 mg PO DAILY Tamsulosin [Flomax] 0.4 mg PO BID Magnesium Oxide [Mag-Ox] 400 mg PO BID #60 tab cloNIDine HCL [Catapres] 0.1 mg PO BID Ferrous Sulfate [Feosol] 325 mg PO DAILY Adalimumab [Humira Pen] 40 mg SQ Q14D Discharge Medication List Tamsulosin [Flomax] 0.4 mg PO BID 07/29/23 [History] Magnesium Oxide [Mag-Ox] 400 mg PO BID #60 tab 09/07/23 [Rx] Buprenorphine HCl/Naloxone HCl [Suboxone 4 mg-1 mg Sl Film] 1 film SL BID 09/09/23 [History] Sodium Bicarbonate Tab 1,300 mg PO BID 30 Days #120 tab 10/13/23 [Rx] Adalimumab [Humira Pen] 40 mg SQ Q14D 11/16/23 [History] Ferrous Sulfate [Feosol] 325 mg PO DAILY 11/16/23 [History] amLODIPine [Norvasc] 10 mg PO DAILY 11/16/23 [History] cloNIDine HCL [Catapres] 0.1 mg PO BID 11/16/23 [History] Discharge Disposition: - Preliminary Cause of Preliminary Cause of : Respiratory failure, sepsis
--- NOTE | 2023-12-27 13:12 | CT ---
Patient: Silvano Rajan Ordering Physician: Unknown, Unknown ID: [id number] Phone, Pager: Phone : N/A Pager: N/A : 1950 Age/Gender: 73Y, M Primary Location: N/A Procedure: CT ChestAbdPelvis wo con Study Date: 12/08/2023 7:18:00 PM EXAMINATION TYPE: CT ChestAbdPelvis wo con DATE OF EXAM: 12/08/2023 COMPARISON: HISTORY: Shortness of breath CT DLP: mGycm Unenhanced CT of the Chest, Abdomen and Pelvis Unenhanced CT of the chest ,abdomen and pelvis is performed. The lack of intravenous contrast limits evaluation of the solid and hollow viscera. Oral contrast: CT Chest: LUNGS: Bilateral pleural effusions with patchy basilar infiltrates compatible with pneumonia. MEDIASTINUM: Thoracic aorta is of normal caliber. The heart is not enlarged. No evidence for media stinal mass or adenopathy. HILAR STRUCTURES: No evidence for mass. No hilar adenopathy is appreciated. OTHER: No significant abnormality. CONTRAST CT ABDOMEN AND PELVIS: LIVER/GB: No calcified gallstones. No space occupying hepatic lesion. Biliary tree is of normal ca liber. PANCREAS: No inflammation. No distinct mass. SPLEEN: No splenic enlargement. No lesion seen. ADRENALS: No nodule. No thickening. KIDNEYS/BLADDER: No. Renal cystic lesion noted. Nair catheter is in place. Small effusions are pres ent. BOWEL: The appendix is surgically absent. Normal bowel caliber. No inflammation. GENITAL ORGANS: No gross abnormality. LYMPH NODES: No greater than 1cm abdominal or pelvic lymph nodes areappreciated. AORTA: No significant abnormality. OSSEOUS STRUCTURES: No significant abnormality is seen. OTHER: No significant additional abnormality is seen. IMPRESSION: 1. Bilateral pleural effusions with patchy basilar infiltrates. 2. Small small amount of ascites. 3. Nonobstructing cholelithiasis.
--- NOTE | 2024-01-03 13:33 | XR ---
Patient: Silvano Rajan W Ordering Physician: Unknown, Unknown ID: [id number] Phone, Pager: Phone : N/A Pager: N/A : 1950 Age/Gender: 73Y, M Primary Location: N/A Procedure: XR chest 2 V Stud y Date: 12/08/2023 12:05:56 PM EXAMINATION TYPE: XR chest 2V DATE OF EXAM: 12/08/2023 COMPARISON: NONE HISTORY: Shortness of breath TECHNIQUE: Frontal and lateral views of the chest are obtained. FINDINGS: Scattered senescent parenchymal changes noted. Hyperinflation compatible with COPD. No evidence for infiltrate. No evidence for atelectasis. Heart size is stable. Mediastinal structures are stable and grossly unremarkable. No evidence for hilar prominence. Degenerative changes dorsal spine. IMPRESSION: 1. No evidence for acute pulmonary disease.
--- NOTE | 2024-01-16 15:04 | XR ---
Silvano Rajan, : 1950 EXAMINATION TYPE: XR chest 1V DATE OF EXAM: 12/09/2023 COMPARISON: 12/08/2023 HISTORY: 73-year-old male ICU follow-up, shortness of breath TECHNIQUE: Single frontal view of the chest is obtained. FINDINGS: Heart mild to moderately enlarged. Ongoing interstitial densities now with development of confluent airspace disease in the perihilar regions especially on the right. IMPRESSION: Cardiomegaly, COPD, and interval worsening now with perihilar consolidation, right great er than left. Correlate for CHF with the development now of pulmonary edema.
== END 2023-12-11 09:50 | disposition expired | DRG 871 ==
LOC: 3SCARD 13:01 → UNDODISIN 15:10 → 4SSUR 12-10 18:47
PROVIDERS: ADMIT Family Medicine; ATTEND Family Medicine
DX: A41.9 Sepsis, unspecified organism (principal); E43 Unspecified severe protein-calorie malnutrition; J96.01 Acute respiratory failure with hypoxia; I21.A1 Myocardial infarction type 2; J18.9 Pneumonia, unspecified organism; Z68.1 Body mass index [BMI] 19.9 or less, adult; E87.20 Acidosis, unspecified; N17.9 Acute kidney failure, unspecified; K50.90 Crohn's disease, unspecified, without complications; N39.0 Urinary tract infection, site not specified; R65.20 Severe sepsis without septic shock; N18.9 Chronic kidney disease, unspecified; I50.9 Heart failure, unspecified; I48.91 Unspecified atrial fibrillation; Z51.5 Encounter for palliative care; Z66 Do not resuscitate; K80.20 Calculus of gallbladder without cholecystitis without obstruction; Z96.652 Presence of left artificial knee joint; E87.5 Hyperkalemia; Z90.49 Acquired absence of other specified parts of digestive tract; Z91.041 Radiographic dye allergy status; Z79.899 Other long term (current) drug therapy; Z20.822 Contact with and (suspected) exposure to COVID-19
CPT/HCPCS: 71045; 71046; 71250; 74176; 86850; 86900; 86901; 86920; 93005; 94640; 94660; 96365; 96375; 99291